=== PATIENT | female | born 1935 | race Caucasian/White ===

== ENCOUNTER 2019-07-11 13:47 | Emergency (ER) | payer OTHER ==
[2019-07-11 14:59] LABS: Absolute Lymphocytes (CBC) 1.6 K/uL (0.7-4.9); Basophils % 0.5 % (0-1.3); Hematocrit 38.7 % (36.0-45.0); MPV 7.9 fL (7.6-11.3); Protime INR 0.99; RBC Red Blood Cell Count 4.03 M/uL (3.86-4.86)
[2019-07-11 15:13] LABS: ALT/SGPT 23 U/L (12-78); AST/SGOT 19 U/L (15-37); Albumin 3.3 g/dL (3.4-5.0); Alkaline Phosphatase 77 U/L (45-117); BUN Blood Urea Nitrogen 13 mg/dL (7-18); Bicarbonate 31 mmol/L (21-32); Bilirubin Direct < 0.1 mg/dL (0-0.2); Bilirubin Total 0.3 mg/dL (0.2-1.0); Glucose Level 141 mg/dL (74-106); Magnesium 1.7 mg/dL (1.8-2.4); NT PRO-BNP 503 pg/mL (<450); Protein, Total 7.3 g/dL (6.4-8.2); Sodium Level 130 mmol/L (136-145); Troponin (Emerg Dept Use Only) < 0.02 ng/mL (0.0-0.045)
--- NOTE | 2019-07-11 15:28 | RAD REPORT ---
EXAM DESCRIPTION: RAD - Chest Single View - 07/11/2019 3:02 pm CLINICAL HISTORY: Arm numbness and tingling, left arm pain, left shoulder pain COMPARISON: January 2019 TECHNIQUE: AP portable chest image was obtained 1444 hours . FINDINGS: Lung volumes are relatively low. No peripheral mass or consolidation. The lung parenchymal pattern is not significantly different from comparison. Heart and vasculature are normal. No measura ble pleural effusion and no pneumothorax. No acute bony abnormality seen. No acute aortic findings dubois spected. IMPRESSION: No acute cardiopulmonary process. No significant change from comparison.
--- NOTE | 2019-07-11 15:32 | EKG ---
Test Date: 2019-07-11 Test Time: 14:26:35 Muffler Tender: EDWARD MEASUREMENT RESULTS: Intervals: Rate: 81 PA: 158 QRSD: 112 QT: 368 QTc: 427 [place]: P: 78 PA: 158 QRS: -49 T: 90 INTERPRETIVE STATEMENTS: Normal sinus rhythm Left anterior fascicular block Abnormal ECG Compared to ECG 10/09/2004 17:42:00 Left anterior fascicular block now present Electronically Signed On 07-11-19 15:31:34 MOLD CLOSER by Haris Escobedo
--- NOTE | 2019-07-11 15:37 | EDPHYS ---
Physician Documentation [facility] Name: Nai Ragland Age: 83 yrs Sex: Female : 1935 Arrival Date: 07/11/2019 Time: 13:51 Bed 20 Private MD: ED Physician Rolando Rivera HPI: 07/11 14:42 This 83 yrs old Female presents to ER via Ambulatory with complaints of la1 Numbness Of Arm. 14:42 The patient or guardian complains of numbness and tingling to left arm that began a few la1 days ago, pain is worse at night and first thing in the morning. Pain is not reproducible. . The complaints affect the left arm. Onset: The symptoms/episode began/occurred 3 day(s) ago. Treatment prior to arrival includes: no previous treatment. Modifying factors: The symptoms are alleviated by nothing. the symptoms are aggravated by nothing. Associated signs and symptoms: Pertinent negatives: decreased range of motion, fever, swelling, vomiting. Severity of symptoms: At their worst the symptoms were moderate. The patient has not experienced similar symptoms in the past. Historical: - Allergies: 14:02 No Known Allergies; iw - Home Meds: 14:02 hydrochlorothiazide 25 mg Oral tab once daily [Active]; valsartan 320 mg oral tab 1 tab iw once daily [Active]; diltiazem HCl 240 mg Oral CDER 1 cap once daily [Active]; - PMHx: 14:02 Hypertension; Asthma; iw - PSHx: 14:02 Knee surgery; iw - Immunization history:: Adult Immunizations. - Social history:: Smoking status: Patient/guardian denies using tobacco. - Ebola Screening: : Patient negative for fever greater than or equal to 101.5 degrees Fahrenheit, and additional compatible Ebola Virus Disease symptoms Patient denies exposure to infectious person Patient denies travel to an Ebola-affected area in the 21 days before illness onset No symptoms or risks identified at this time. ROS: 14:46 Constitutional: Negative for fever, chills, and weight loss, Eyes: Negative for injury, la1 pain, redness, and discharge, ENT: Negative for injury, pain, and discharge, Neck: Negative for injury, pain, and swelling, Cardiovascular: Negative for chest pain, palpitations, and edema, Respiratory: Negative for shortness of breath, cough, wheezing, and pleuritic chest pain, Abdomen/GI: Negative for abdominal pain, nausea, vomiting, diarrhea, and constipation, Back: Negative for injury and pain, MS/Extremity: + for paresthesia of the left arm Skin: Negative for injury, rash, and discoloration, Neuro: Negative for headache, weakness, numbness, tingling, and seizure. Exam: 14:49 Constitutional: This is a well developed, well nourished patient who is awake, alert, la1 and in no acute distress. Head/Face: Normocephalic, atraumatic. Eyes: Pupils equal round and reactive to light, extra-ocular motions intact. Lids and lashes normal. Conjunctiva and sclera are non-icteric and not injected. Cornea within normal limits. Periorbital areas with no swelling, redness, or edema. ENT: Mucous membranes moist. Neck: No Meningismus. Chest/axilla: Normal chest wall appearance and motion. Nontender with no deformity. No lesions are appreciated. Cardiovascular: Regular rate and rhythm with a normal S1 and S2. No gallops, murmurs, or rubs. Normal PMI, no JVD. No pulse deficits. Respiratory: Lungs have equal breath sounds bilaterally, clear to auscultation No rales, rhonchi or wheezes noted. No increased work of breathing, no retractions or nasal flaring. Abdomen/GI: Soft, non-tender, with normal bowel sounds. No distension or tympany. No guarding or rebound. No evidence of tenderness throughout. 15:17 ECG was reviewed by the Attending Physician. la1 15:26 Neuro: Orientation: is normal, Mentation: is normal, Memory: is normal, Cranial nerves: la1 grossly normal, Cerebellar function: is grossly normal, Motor: is normal, Sensation: numbness, that is mild, of the left arm. Vital Signs: 14:02 BP 178 / 67; Pulse 87; Resp 16; Temp 98.0; Pulse Ox 98% on R/A; Weight 70.31 kg; Height iw 4 ft. 8 in. (142.24 cm); 15:00 BP 186 / 67; Pulse 57; Resp 18; Pulse Ox 99% on R/A; Pain 0/10; em 14:02 Body Mass Index 34.75 (70.31 kg, 142.24 cm) iw MDM: 14:17 Patient medically screened. la1 15:27 Data reviewed: vital signs, nurses notes, lab test result(s), EKG, radiologic studies, la1 plain films, I have discussed the patient's presentation/case with the attending Emergency Department Physician; and as a result, I will discharge patient. Data interpreted: Pulse oximetry: on room air is 99 %. Interpretation: normal. Test interpretation: by ED physician or midlevel provider: ECG, plain radiologic studies. Counseling: I had a detailed discussion with the patient and/or guardian regarding: the historical points, exam findings, and any diagnostic results supporting the discharge/admit diagnosis, the presence of at least one elevated blood pressure reading (>120/80) during this emergency department visit, lab results, radiology results, the need for outpatient follow up, a vascular surgeon, a family practitioner. 15:34 ED course: pts pain/numbness in the left arm for the last 3 days, denies chest la1 pain/SOB. Instructed to return to ED with new or worsening symptoms. 07/11 14:31 Order name: Basic Metabolic Panel; Complete Time: 15:34 07/11 14:31 Order name: CBC with Diff; Complete Time: 15:34 la07/11 14:31 Order name: LFT's; Complete Time: 15:34 07/11 14:31 Order name: Magnesium; Complete Time: 15:34 07/11 14:31 Order name: NT PRO-BNP; Complete Time: 15:34 07/11 14:31 Order name: PT-INR; Complete Time: 15:34 07/11 14:31 Order name: Troponin (emerg Dept Use Only); Complete Time: 15:34 la07/11 14:31 Order name: XRAY Chest (1 view); Complete Time: 15:34 la07/11 14:31 Order name: EKG; Complete Time: 14:33 la07/11 14:31 Order name: Cardiac monitoring; Complete Time: 14:33 07/11 14:31 Order name: EKG - Nurse/Tech; Complete Time: 15:16 07/11 14:31 Order name: IV Saline Lock; Complete Time: 15:26 07/11 14:31 Order name: Labs collected and sent; Complete Time: 14:33 la1 12 14:31 Order name: O2 Per Protocol; Complete Time: 14:33 la1 12 14:31 Order name: O2 Sat Monitoring; Complete Time: 14:33 la1 EC:17 Rate is 81 beats/min. Rhythm is regular. Left axis deviation noted. IN interval is la1 normal. QT interval is normal. No Q waves. T waves are Normal. No ST changes noted. Clinical impression: NO STEMI. Administered Medications: 15:48 Drug: Potassium Effervescent Tablet 50 mEq Route: PO; em 15:54 Follow up: Response: No adverse reaction em Disposition: 16:49 Co-signature as Attending Physician, Rolando Rivera MD I agree with the assessment and kdr plan of care. Disposition: 07/11/19 15:36 Discharged to Home. Impression: Paresthesia of skin. - Condition is Stable. - Discharge Instructions: Potassium Content of Foods, Paresthesia. - Medication Reconciliation Form, Thank You Letter form. - Follow up: Emergency Department; When: As needed; Reason: Worsening of condition. Follow up: Private Physician; When: 2 - 3 days; Reason: Recheck today's complaints, Re-evaluation by your physician. - Problem is new. - Symptoms are unchanged. Signatures: Dispatcher [employer] Rolando Shell MD MD [facility] Tarik Aceveod, SUPPORT SERVICES TECH SUPPORT SERVICES TECH em Cass Vasquez, REAGAN RN iw Smith Hamilton, CONTAINER WASHER-C CONTAINER WASHER-Cla1 Corrections: (The following items were deleted from the chart) 15:27 14:42 The complaints affect the left bicep, dorsal aspect of left forearm, left tricep la1 and palmar aspect of left forearm, la1 15:55 15:36 07/11/2019 15:36 Discharged to Home. Impression: Paresthesia of skin. Condition em is Stable. Forms are Medication Reconciliation Form, Thank You Letter, Antibiotic Education, Prescription Opioid Use. Follow up: Emergency Department; When: As needed; Reason: Worsening of condition. Follow up: Private Physician; When: 2 - 3 days; Reason: Recheck today's complaints, Re-evaluation by your physician. Problem is new. Symptoms are unchanged. la1
--- NOTE | 2019-07-11 15:37 | ER ---
Nurse's Notes [facility] Name: Nai Ragland Age: 83 yrs Sex: Female : 1935 Arrival Date: 07/11/2019 Time: 13:51 Bed 20 Private MD: Diagnosis: Paresthesia of skin Presentation: 07/11 13:58 Presenting complaint: Patient states: numbness, tingling to left arm started 4-5 days iw ago, starts at back of shoulder radiates to left fingers, got worse last night, denies weakness. Transition of care: patient was not received from another setting of care. Onset of symptoms was July 07, 2019. Risk Assessment: Do you want to hurt yourself or someone else? Patient reports no desire to harm self or others. Initial Sepsis Screen: Does the patient meet any 2 criteria? No. Patient's initial sepsis screen is negative. Does the patient have a suspected source of infection? No. Patient's initial sepsis screen is negative. Care prior to arrival: None. 13:58 Method Of Arrival: Ambulatory iw 13:58 Acuity: JT 3 iw Historical: - Allergies: 14:02 No Known Allergies; iw - Home Meds: 14:02 hydrochlorothiazide 25 mg Oral tab once daily [Active]; valsartan 320 mg oral tab 1 tab iw once daily [Active]; diltiazem HCl 240 mg Oral CDER 1 cap once daily [Active]; - PMHx: 14:02 Hypertension; Asthma; iw - PSHx: 14:02 Knee surgery; iw - Immunization history:: Adult Immunizations. - Social history:: Smoking status: Patient/guardian denies using tobacco. - Ebola Screening: : Patient negative for fever greater than or equal to 101.5 degrees Fahrenheit, and additional compatible Ebola Virus Disease symptoms Patient denies exposure to infectious person Patient denies travel to an Ebola-affected area in the 21 days before illness onset No symptoms or risks identified at this time. Screenin:28 Abuse screen: Denies threats or abuse. Nutritional screening: No deficits noted. em Tuberculosis screening: No symptoms or risk factors identified. Fall Risk None identified. Assessment: 14:30 General: Appears in no apparent distress. comfortable, Behavior is calm, cooperative, em Denies fever. Pain: Denies pain. Neuro: Level of Consciousness is awake, alert, obeys commands, Oriented to person, place, time, situation, Appropriate for age Production Grip are equal bilaterally Moves all extremities. Gait is steady, Speech is normal, Facial symmetry appears normal, Pupils are PERRLA, paresthesias in palmar aspect of left forearm and left tricep and dorsal aspect of left forearm and left bicep Reports Denies weakness dizziness, difficulty swallowing. Cardiovascular: Capillary refill < 3 seconds Patient's skin is warm and dry. Respiratory: Airway is patent Respiratory effort is even, unlabored, Respiratory pattern is regular, symmetrical. GI: Patient currently denies nausea, vomiting. Derm: Skin is intact, is healthy with good turgor, Skin is pink, warm \T\ dry. Musculoskeletal: Capillary refill < 3 seconds, Range of motion: intact in all extremities. 14:35 Reassessment: I agree with the assessment made by YESICA Montanez. sg 15:40 Reassessment: Patient appears in no apparent distress at this time. No changes from em previously documented assessment. Patient and/or family updated on plan of care and expected duration. Pain level reassessed. Patient is alert, oriented x 3, equal unlabored respirations, skin warm/dry/pink. Vital Signs: 14:02 BP 178 / 67; Pulse 87; Resp 16; Temp 98.0; Pulse Ox 98% on R/A; Weight 70.31 kg; Height iw 4 ft. 8 in. (142.24 cm); 15:00 BP 186 / 67; Pulse 57; Resp 18; Pulse Ox 99% on R/A; Pain 0/10; em 14:02 Body Mass Index 34.75 (70.31 kg, 142.24 cm) iw ED Course: 13:51 Patient arrived in ED. mr 13:59 Triage completed. iw 14:02 Arm band placed on. iw 14:07 Tarik Acevedo LVN is Primary Nurse. em 14:17 Smith Hamilton [facility]-C [facility] la1 14:17 Rolando Rivera MD is Attending Physician. la1 14:28 Patient has correct armband on for positive identification. Bed in low position. Call em light in reach. Side rails up X2. Adult w/ patient. 14:34 EKG done, by tree and shrub technician. reviewed by Smith SORTO. at1 14:40 Initial lab(s) drawn, by me, sent to lab. Inserted saline lock: 22 gauge in right em antecubital area, using aseptic technique. Blood collected. 15:05 XRAY Chest (1 view) In Process Unspecified. EDMS Administered Medications: 15:48 Drug: Potassium Effervescent Tablet 50 mEq Route: PO; em 15:54 Follow up: Response: No adverse reaction em Outcome: 15:36 Discharge ordered by MD. bond 15:55 Patient left the ED. em Signatures: Dispatcher [employer] EDMS Patel Espinoza, RN RN Monserrat Cole mr Curtis, Tarik, MULTIFOCAL LENS INSPECTOR MULTIFOCAL LENS INSPECTOR em Cass Vasquez, RN RN iw Alissa Hernandez, quantitative analyst marketing EKG Tat1 Smith Hamilton, DEHAIRING MACHINE TENDER-C DEHAIRING MACHINE TENDER-Cla1
[2019-07-11] MEDS ORDERED: POTASSIUM 25 MEQ EFFERV TAB ONE (15:38)
[2019-07-11 18:07] VITALS: TEMP 98
[2019-07-11 18:09] VITALS: BP 186/67; O2SAT 99
== END 2019-07-11 15:55 | disposition home or self-care (01) ==
LOC: ER 13:47
DX: R20.2 Paresthesia of skin (principal); I10 Essential (primary) hypertension; J45.909 Unspecified asthma, uncomplicated
CPT/HCPCS: 36415; 71045; 80048; 80076; 83735; 83880; 84484; 85025; 85610; 93005; 99284

== ENCOUNTER 2019-09-25 12:37 | Inpatient (IN) | payer OTHER ==
--- NOTE | 2019-09-25 16:42 | R.PREADM ---
SCREENING DATE AND TIME 09/25/2019 13:38 (ADULT LITERACY TEACHER) ANTICIPATED REHAB ADMISSION DATE 09/27/2019 REFERRING FACILITY [facility] REFERRAL DATE AND TIME 09/25/2019 13:38 (ADULT LITERACY TEACHER) ACUTE ADMIT DATE 09/15/2019 Previous Rehabilitation(s): No. REFERRING PHYSICIAN JOSE LUIS PHILLIPS REHAB FACILITY [facility] CLINICAL LIAISON Isa Contreras PHYSICIAN REVIEWER Dr. Elvis Munoz M.D. MR# [id number] [facility]# [id number] NAME NAI RAGLAND ADDRESS [address] [facility] PHONE [facility] [id number] DATE OF 1935 AGE 84 SSN# [id number] GENDER female MARITAL STATUS RACE white ADMIT FROM 02 - [facility] PRE-HOSPITAL LIVING SETTING 01 - Home (private home/apt. board/care, assisted living, halfway, transitional living) HOME TYPE AND DETAILS Type of home: single family house # of steps within the residence: 0 # of levels in the residence: 1 # of steps to enter the residence: 0 PRE-HOSPITAL LIVING WITH Alone FAMILY SUPPORT Yes PRIMARY FAMILY CONTACT NAME LORI ANDREWS PRIMARY FAMILY CONTACT PHONE PHONE PRIMARY FAMILY CONTACT ON ADM.? no IS PRIMARY FAMILY CONTACT AUTH. REP.? no 1ST EMERGENCY CONTACT LORI ANDREWS 1ST CONTACT PHONE PHONE 1ST CONTACT ON ADM. no IS 1ST CONTACT AUTH. REP.? no PHONE 2ND CONTACT ON ADM.? no PATIENT EMPLOYMENT STATUS Retired (for age) PATIENT EMPLOYER No Employer PAYOR INFORMATION: 1ST PAYOR NAME Mariama 1ST PAYOR PHONE [phone] 1ST PAYOR POLICY ID [id number] INJURY/ILLNESS DUE TO ACCIDENT? No ANOTHER [employer] RESPONSIBLE? No PRIMARY REHAB/ACUTE DIAGNOSIS: Acute Ischemic Right MCA Stroke ONSET DATE 09/15/2019 REHAB IMPAIRMENT CATEGORY (DMITRY): 01 Stroke (STR) MEETS 60% rule AFFECTED EXTREMITIES: LLE, and LUE PRIMARY DIAGNOSIS-RELATED SURGERIES: No surgeries related to the primary diagnosis were performed. COMORBID REHAB/ACUTE DIAGNOSES: - N/A HTN SUMMARY OF ACUTE HOSPITALIZATION: Pt. is a 84 yo Right-handed white female. On 09/15/2019 Pt. presented to [facility] with sudden onset of left-side weakness. On 09/15/2019 she was admitted to [facility] with diagnosis Acute Ischemic Right MCA Stroke. Her impairment category is Stroke 01 - Left Body (Right Brain) (01.1). Pre-morbidly, Pt. was independent/mod-I in Locomotion, Safety Awareness, Balance, Social Cognition, T ransfers Control, Sphincter Control, Self-Care, Communication, and Endurance; and she had good Locomo tion, Balance, Safety Awareness, Social Cognition, Transfers Control, Sphincter Control, Self-Care, C ommunication, and Endurance. Currently, she has deficits of Locomotion, Safety Awareness, Balance, Transfers Control, Self-Care, C ommunication, and Endurance. Pt. is now referred to [facility] for acute in-patient rehabilitation in order to maximize patient's functional independence in activities of daily living, strength, ROM, and mobi lity. Patient has realistic goal of being discharged at assistance level 6-Hunter to reside at Home with Fam fernando/Relatives. Nai Ragland is an 84 year old female that lives alone in a single miguel angel house. She was independent with ADLs and IADLs and ambulatory without assistive device. On 09/15/2019, patient was found down by family with left sided weakness and right gaze deviation and was admitted to [facility] and treated. She is now medically stable but in need of 24-hour nursing, doctor supervision and oversite while receiving participate in 3hours of therapy a day/15 hours per week and receive care with an intensive interdisciplinary approach. PAST MEDICAL HISTORY HTN PAST SURGICAL HISTORY: N/A MEDICATION ALLERGIES: No Known Drug Allergies (NKDA) ENVIRONMENTAL ALLERGIES: None Known - Substance Allergies None Known - Other Allergies None Known CODE STATUS: Full code WEIGHT/HEIGHT/BMI: WEIGHT 151.4 lbs HEIGHT 4' 8" BMI 33.8 DIET: - Diet Type Regular - Diet - Solid Texture Mechanical Soft - Diet - Liquid Texture Thin - Tube Feed N/A REVIEW OF SYSTEMS: - Gen Alert and awake Lying in bed No apparent distress Oriented to: person, time, and place - Vital Signs Temperature: 98.6 F SBP/DBP: 151/70 Pulse: 77 Resp: 20 Vital signs stable, afebrile - CVS RRR VITAL SIGNS Temperature: 98.6 F SBP/DBP: 151/70 Pulse: 77 Resp: 20 Vital signs stable, afebrile MEDICATIONS/TREATMENT: Other- See attached MAR (Medication Administration Record). See attached MAR (Medication Administration Record) Nai Ragland.pdf. CURRENT SPHINCTER CONTROL: Pre-hospital bladder status: continent # of bladder accidents in the last 7 days prior to screenin Pre-hospital bowel status: continent # of bowel accidents in the last 7 days prior to screenin Last Bowel Movement Date: CURRENT LOCOMOTION STATUS: distance walked 0 feet DETAILED CURRENT FUNCTIONAL STATUS: - Bladder accident frequency: Ind - No accidents in the past 7 days - Bowel accident frequency: Ind - No accidents in the past 7 days - Walking score based on distance walked: 0(N/A) - Wheelchair score based on distance traveled: 0(N/A) QI SCORES: - Self-Care A. Eating 04-Supervision or touching assistance B. Oral hygiene 04-Supervision or touching assistance C. Toileting hygiene 02-Substantial/maximal assistance E. Shower/bathe self 02-Substantial/maximal assistance F. Upper body dressing 02-Substantial/maximal assistance G. Lower body dressing 01-Dependent H. Putting on/taking off footwear 01-Dependent - Mobility A. Roll left and right 02-Substantial/maximal assistance B. Sit to lying 02-Substantial/maximal assistance C. Lying to sitting on side of bed 02-Substantial/maximal assistance D. Sit to stand 02-Substantial/maximal assistance E. Chair/tit-st-tfzxe transfer 02-Substantial/maximal assistance F. Toilet transfer 02-Substantial/maximal assistance G. Car transfer 10-Not attempted due to environmental limitations I. Walk 10 feet 88-Not attempted due to medical condition or safety concerns J. Walk 50 feet with two turns 88-Not attempted due to medical condition or safety concerns K. Walk 150 feet 88-Not attempted due to medical condition or safety concerns L. Walking 10 feet on uneven surfaces 88-Not attempted due to medical condition or safety concerns M. 1 step (curb) 88-Not attempted due to medical condition or safety concerns N. 4 steps 88-Not attempted due to medical condition or safety concerns O. 12 steps 88-Not attempted due to medical condition or safety concerns P. Picking up object 88-Not attempted due to medical condition or safety concerns R. Wheel 50 feet with two turns 88-Not attempted due to medical condition or safety concerns S. Wheel 150 feet 88-Not attempted due to medical condition or safety concerns - Bladder and Bowel Bladder continence 0-Always continent Bowel continence 0-Always continent - Endurance Poor - Balance Poor - Safety Awareness Poor CURRENT FUNC. DEFICITS: Self-Care, Mobility, Endurance, Balance, and Safety Awareness CURRENT / PREVIOUS ASSISTIVE DEVICES: 3-in-1 Commode BSC Glasses Hearing Aid(s) Hospital Bed Rolling Walker Shower Chair Tub Bench Wheelchair CURRENT USE ASSISTIVE DEVICES: SCDs HISTORY OF FALLS. HAS THE PATIENT HAD TWO OR MORE FALLS IN THE PAST YEAR OR ANY FALL WITH INJURY IN T HE PAST YEAR?: No PRIOR SURGERY. DID THE PATIENT HAVE MAJOR SURGERY DURING THE 100 DAYS PRIOR TO ADMISSION?: No THERAPY NOTES FROM ACUTE CARE: Attached. SPECIAL NEEDS: - Safety Concerns Skin breakdown precautions needed due to skin breakdown risk PRECAUTIONS: - Weight Bearing Precaution WBAT left LE PATIENT NEEDS ACTIVE AND ONGOING THERAPEUTIC INTERVENTION OF MULTIPLE THERAPY DISCIPLINES, INCLUDING: - Occupational Therapy Cognitive Retraining. Visual Perceptual Training. - Dietary and Nutrition Adequate Nutrition. Nutritional Education. Nutritional Supplements. - Speech Therapy Cognitive Training. Dysphagia Therapy. Expressive Language Skills. Memory Strategies. Receptive Langu age Skills. Speech Intelligibility Training. PATIENT NEEDS CLOSE MEDICAL SUPERVISION BY A REHABILITATION PHYSICIAN FOR: Coordination of Treatment Team Medical and Co-Morbidity Management PATIENT REQUIRES 24X7 REHAB NURSING FOR MEDICAL AND FUNCTIONAL MGT. OF THE FOLLOWING DEFICITS: Disease Management Medication Management Patient/Family Education Providing Safe Environment PATIENT REQUIRES INTENSIVE, COORDINATED INTERDISCIPLINARY APPROACH TO REHAB: Arranging Home Equipment/Services Discharge Planning Family Intervention/Training Surgical Assist/Case Management PATIENT REHAB POTENTIAL: Sedrick RAGLAND is able and expected to receive 3 hours of individualized therapy daily on at least 5 of e very 7 days Sedrick RAGLAND's prognosis for significant practical improvement within a reasonable period of time appea rs Good Expected level of measurable improvement will be of a practical value to Sedrick RAGLAND's functional capa city or adaptations to impairments Has a viable Discharge Plan Medically appropriate; condition is sufficiently stable to participate in intensive rehab program DISCHARGE PLAN: - Estimated Length of Stay (days) 17. - Consensus on plan Discharge plan has been discussed with primary caregiver. Patient/Family is in agreement with the jaswinder n. Primary caregiver is in agreement with the plan. - Patient/Family Goals Return home with assistance. - Planned Living Setting Upon Discharge Home, to live with Family/Relatives. Transitional Living. RECOMMENDED CARE LEVEL: IRF RECOMMENDATION DETAILS: Recommended Admission to Comprehensive Rehabilitation Program to Increase Functional [place] SCREENER'S COMPLETENESS CONFIRMATION: - Screening Confirmation The patient data collection on this preadmission screening form is finished PHYSICIANS REVIEW AND ADMISSION DETERMINATION Admit - Based on my review of the Pre-Admission Screening results, in my medical judgment and experie nce, I concur with the findings and recommend admission to [facility], as this patient requires an IRF level of care. SIGNATURE PANEL: Clinical Liaison - [electronically] signed by Isa Contreras on 09/25/2019 at 16:09 (ADULT LITERACY TEACHER) Physician Reviewer - [electronically] signed by Dr. Elvis Munoz M.D. on 09/25/2019 at 16:41 (ADULT LITERACY TEACHER )
--- OUTSIDE RECORDS SUMMARY | 2019-09-26 20:23 | XMS REPORT ---
:1935 [facility] Address [address] [place] [address] Dr. Schultz [address] [place] [id number] Care Team Providers Name Role Phone Unavailable Unavailable Unavailable Problems This patient has no known problems. Allergies, Adverse Reactions, Alerts This patient has no known allergies or adverse reactions. Medications This patient has no known medications. Encounters Start End Encounter Admission Attending Care Care Encounter Date/Time Date/Time Type Type Clinicians Facility Department ID 2019-09-15 2019-09-[address] [facility] [id number] 13:19:00 13:19:00 2019-09-15 2019-09-15 Inpatient [facility] [id number] 13:54:00 11:12:00
--- OUTSIDE RECORDS SUMMARY | 2019-09-26 20:23 | XMS REPORT ---
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
--- OUTSIDE RECORDS SUMMARY | 2019-09-26 20:23 | XMS REPORT ---
:1935 Author Organization [employer] Care Team Providers Name Role Phone Mumtaz Trivedi Provider Role Unavailable Allergies, Adverse Reactions, Alerts Substance Reaction Event Type N.K.D.A. 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 Assessment Cervical radiculopathy M54.12 Active Medications Medication Code System Code Instructions Start Date End Date Status Dosage Advair Diskus [facility] 85809-846 Active not defined 7 Diazepam [facility] 45190-134 Active not defined 0-01 potassium [facility] 0 Active not defined Diltiazem HCl [facility] 49563-883 Active not defined 0-01 Valsartan [facility] 97141-520 Active not defined Results No Known Results Summary Purpose [employer]ClinicalWorks Submission
[2019-09-26] MEDS ORDERED: DUONEB NEB PRN (21:56)
[2019-09-26] MEDS: LABETALOL HCL 100 MG TAB PO SCH (22:00)
[2019-09-26] MEDS: MELATONIN 3 MG TABLET PO SCH (23:44)
[2019-09-26] MEDS: ATORVASTATIN 80 MG TAB PO SCH (23:45)
[2019-09-27] MEDS: LABETALOL HCL 100 MG TAB PO SCH ×3 (05:29→20:16)
[2019-09-27 06:24] LABS: Absolute Lymphocytes (CBC) 1.3 K/uL (0.7-4.9); Basophils % 0.2 % (0-1.3); Hematocrit 33.3 % (36.0-45.0); Lymphocytes % 23.6 % (15.3-44.8); MPV 8.7 fL (7.6-11.3); RBC Red Blood Cell Count 3.39 M/uL (3.86-4.86)
[2019-09-27 06:36] LABS: Albumin 2.2 g/dL (3.4-5.0); Magnesium 1.9 mg/dL (1.8-2.4); Potassium 4.3 mmol/L (3.5-5.1); Prealbumin 9.6 mg/dL (20-40)
[2019-09-27] MEDS: BUDESONIDE FORMOTEROL IH SCH ×2 (08:00→20:00)
[2019-09-27] MEDS: DULERA 100/5 (MOMETASONE/FORMOTEROL) INHALER IH SCH ×2 (08:00→20:17)
[2019-09-27] MEDS: HYDROCODONE/APAP 5/325 MG TAB PO PRN ×2 (08:07→14:47)
[2019-09-27] MEDS: ASPIRIN EC 81 MG TAB PO SCH (08:09)
[2019-09-27] MEDS: POTASSIUM CL SA 10 MEQ TAB PO SCH ×2 (08:09→20:16)
[2019-09-27] MEDS: VALSARTAN 160 MG TAB PO SCH (08:09)
[2019-09-27] MEDS: CLOPIDOGREL 75 MG TABLET PO SCH (08:09)
--- NOTE | 2019-09-27 12:34 | PAPE ---
PATIENT: [facility] MR# [id number] REFERRING DOCTOR JOSE LUIS PHILLIPS EVALUATION DATE AND TIME 09/27/2019 11:32 (RADIO PERFORMER) NAME JOSE DE LOS SANTOS DATE OF 1935 AGE 84 PHONE SSN# [id number] GENDER female EVALUATING PHYSICIAN Dr. Wyatt Saavedra ADMISSION DIAGNOSIS: Acute Ischemic Right MCA Stroke ONSET DATE 09/15/2019 SECONDARY/COMORBID DIAGNOSES TIERED: - N/A HTN POST-ADMISSION FUNCTIONAL/MEDICAL STATUS: - Bladder Same accident frequency: Ind - No accidents in the past 7 days - Bowel Same accident frequency: Ind - No accidents in the past 7 days - Walking Same score based on distance walked: 0(N/A) - Wheelchair Same score based on distance traveled: 0(N/A) STATUS CHANGE EVALUATION: No change in Functional or Medical Status is identified compared with Pre-Admission screening. PRE-ADMISSION FUNCTIONAL/MEDICAL STATUS: - Bladder accident frequency: 7-Ind - No accidents in the past 7 days - Bowel accident frequency: 7-Ind - No accidents in the past 7 days - Walking score based on distance walked: 0(N/A) - Wheelchair score based on distance traveled: 0(N/A) PATIENT NEEDS CLOSE MEDICAL SUPERVISION BY A REHABILITATION PHYSICIAN FOR: Coordination of Treatment Team Medical and Co-Morbidity Management PATIENT REQUIRES 24X7 REHAB NURSING FOR MEDICAL AND FUNCTIONAL MGT. OF THE FOLLOWING DEFICITS: Disease Management Medication Management Patient/Family Education Providing Safe Environment PATIENT REQUIRES INTENSIVE, COORDINATED INTERDISCIPLINARY APPROACH TO REHAB: Arranging Home Equipment/Services Discharge Planning Family Intervention/Training Balance Wheel Facer/Case Management LIST OF IDENTIFIED AND POTENTIAL PROBLEMS: Alteration in leisure activities Bladder, Incontinence Bowel, Incontinence Infection, Actual or Potential Mobility Impaired Pain, Alteration in Comfort Self Care Deficit Skin Integrity, Actual or Potential Urinary Tract Infection (UTI), Actual or Potential PATIENT COULD BE AT RISK FOR COMPLICATIONS FROM ADVERSE MEDICAL CONDITIONS DUE TO HIS/HER COMORBIDITI ES AND THE RIGORS OF THE INTENSIVE REHABILLITATION PROGRAM. METHODS OR INTERVENTIONS TO AVOID COMPLIC ATIONS INCLUDE: - Bleeding Stroke patients assessed for lethargy or change in status. - Infection Clinical staff to assess and manage the signs and symptoms of infection including fever, redness, war mth, etc. - Urinary Tract Infection - Aspiration Clinical staff will assess and manage coughing, drooling, congestion. - Falls Patient will be evaluated for Fall Precautions and will be placed on Fall Precautions as indicated pe r protocol. - Skin Breakdown Nursing will assess skin daily using assessment tool and will place on Skin Breakdown Precautions as indicated per protocol. - Pain Clinical staff may employ non-medication methods such as massage, distraction, decrease stimulus, etc . as needed. Clinical staff will assess patient's pain level every shift per protocol to assess and e nsure pain management effectiveness. Medications will be given and the pain level re-assessed. PRELIMINARY PLAN OF CARE: - Physical Therapy Patient needs Physical Therapy for a daily minimum of 1.5 hours at least 5 out of 7 days, to improve: Mobility, Strengthening, Transfers, Stretching, ROM, Endurance, Ability to manage stairs, Gait, and Balance. - Speech Therapy Patient needs Speech Therapy for a daily minimum of 1 hours at least 5 out of 7 days, to improve: Swa llowing, Cognition, Language Skills, and Compensatory Strategies. - Rehabilitation Nursing Patient requires 24x7 Rehabilitation Nursing for: Pain Issues, Identifying and preventing risk factor s, Monitoring and reporting current medical conditions, Assisting with ambulation and transfer, Nadya ting with all ADL-s, Teaching patients about disease process and medications, Family teaching, Provid ing safe environment, Bowel and Bladder Issues, Skin Integrity, and Medication Management. Patient needs Balance Wheel Facer and/or Case Management for: Discharge Planning, Arranging Home Equipmen t or Services, and Family Interventions. - Dietary and Nutrition Services Patient needs Dietary and Nutrition Services for: Adequate Nutrition, Nutritional Supplements, and Nu tritional Education. - Occupational Therapy Patient needs Occupational Therapy for a daily minimum of 1.5 hours at least 5 out of 7 days, to impr ove Activities of Daily Living, including: Eating, Grooming, Bathing, Dressing, Toileting, Toilet Tra nsfers, Community Reintegration, Higher functional activities, Adaptive Equipment, Splinting, Househo ld Tasks, and Other activities as determined. QI SCORES: - Self-Care A. Eating 04-Supervision or touching assistance B. Oral hygiene 04-Supervision or touching assistance C. Toileting hygiene 02-Substantial/maximal assistance E. Shower/bathe self 02-Substantial/maximal assistance F. Upper body dressing 02-Substantial/maximal assistance G. Lower body dressing 01-Dependent H. Putting on/taking off footwear 01-Dependent - Mobility A. Roll left and right 02-Substantial/maximal assistance B. Sit to lying 02-Substantial/maximal assistance C. Lying to sitting on side of bed 02-Substantial/maximal assistance D. Sit to stand 02-Substantial/maximal assistance E. Chair/tmb-ex-tyjuw transfer 02-Substantial/maximal assistance F. Toilet transfer 02-Substantial/maximal assistance G. Car transfer 10-Not attempted due to environmental limitations I. Walk 10 feet 88-Not attempted due to medical condition or safety concerns J. Walk 50 feet with two turns 88-Not attempted due to medical condition or safety concerns K. Walk 150 feet 88-Not attempted due to medical condition or safety concerns L. Walking 10 feet on uneven surfaces 88-Not attempted due to medical condition or safety concerns M. 1 step (curb) 88-Not attempted due to medical condition or safety concerns N. 4 steps 88-Not attempted due to medical condition or safety concerns O. 12 steps 88-Not attempted due to medical condition or safety concerns P. Picking up object 88-Not attempted due to medical condition or safety concerns R. Wheel 50 feet with two turns 88-Not attempted due to medical condition or safety concerns S. Wheel 150 feet 88-Not attempted due to medical condition or safety concerns - Bladder and Bowel Bladder continence 0-Always continent Bowel continence 0-Always continent - Endurance Poor - Balance Poor - Safety Awareness Poor POTENTIAL FUNCTIONAL GOALS FOR PATIENT TO ACHIEVE BY DISCHARGE: - Safety Precaution Patient will remain free from falls or injury at time of discharge. - Bed Mobility Patient will perform bed mobility at 4-Tiffany level of assistance. - Transfers Patient will complete transfers from bed to chair at 4-Tiffany level of assistance. - Mobility Patient will ambulate 150 ft with 4-Tiffany level of assistance with RW. PATIENT REHAB POTENTIAL JordonMarce DE LOS SANTOS is able and expected to receive 3 hours of individualized therapy daily on at least 5 of e very 7 days Sedrick DE LOS SANTOS's prognosis for significant practical improvement within a reasonable period of time appea rs Good Expected level of measurable improvement will be of a practical value to Sedrick DE LOS SANTOS's functional capa city or adaptations to impairments Has a viable Discharge Plan Medically appropriate; condition is sufficiently stable to participate in intensive rehab program DISCHARGE PLAN: - Estimated Length of Stay (days) 17. - Consensus on plan Discharge plan has been discussed with primary caregiver. Patient/Family is in agreement with the jaswinder n. Primary caregiver is in agreement with the plan. - Patient/Family Goals Return home with assistance. - Planned Living Setting Upon Discharge Home, to live with Family/Relatives. Transitional Living. CONCLUSION ON REHABILITATION NECESSITY: I have evaluated patient's pre-admission functional status and, comparing it to the patient's post-ad mission functional status now, I conclude that the pre-admission assessment was accurate. Patient's c ondition on admission supports the medical necessity of admission to IRF. It is safe to proceed with patient's therapy program. SIGNATURE PANEL: (RADIO PERFORMER)
--- NOTE | 2019-09-27 12:38 | R.HP ---
FACILITY: [facility] ENCOUNTER DATE AND TIME: 09/27/2019 12:34 (CAT SKINNER) MR#: [id number] NAME NAI RAGLAND ADDRESS: [place] [address] CITY: [place]IP [address] PHONE: DATE OF : 1935 AGE: 84 SSN# [id number] GENDER: Female DEXTERITY Right-handed MARITAL STATUS RACE White PRE-HOSPITAL LIVING SETTING 01 - Home (private home/apt. board/care, assisted living, correction, transitional living) PRE-HOSPITAL LIVING WITH Alone ENCOUNTER PHYSICIAN: Dr. Wyatt Saavedra REFERRING DOCTOR: JOSE LUIS PHILLIPS DATE OF ADMISSION: 09/27/2019 12:34 (CAT SKINNER) REFERRING FACILITY [facility] HOME TYPE AND DETAILS: Type of home: single family house # of steps within the residence: 0 # of levels in the residence: 1 # of steps to enter the residence: 0 ADMISSION DIAGNOSIS: Acute Ischemic Right MCA Stroke ONSET DATE: 09/15/2019 PRIMARY DIAGNOSIS-RELATED SURGERIES: No surgeries related to the primary diagnosis were performed. SECONDARY/COMORBID DIAGNOSES (TIERED): - N/A HTN HISTORY OF PRESENT ILLNESS (HPI): Pt. is a 84 yo Right-handed white female. On 09/15/[address] [facility] with sudden onset of left-side weakness. On 09/15/2019 she was admitted to [facility] with diagnosis Acute Ischemic Right MCA Stroke. Her impairment category is Stroke 01 - Left Body (Right Brain) (01.1). Pre-morbidly, Pt. was independent/mod-I in Locomotion, Safety Awareness, Balance, Social Cognition, T ransfers Control, Sphincter Control, Self-Care, Communication, and Endurance; and she had good Locomo tion, Balance, Safety Awareness, Social Cognition, Transfers Control, Sphincter Control, Self-Care, C ommunication, and Endurance. Currently, she has deficits of Locomotion, Safety Awareness, Balance, Transfers Control, Self-Care, C ommunication, and Endurance. Pt. is now referred to [facility] for acute in-patient rehabilitation in order to maximize patient's functional independence in activities of daily living, strength, ROM, and mobi lity. Patient has realistic goal of being discharged at assistance level 6-Hunter to reside at Home with Fam fernando/Relatives. Nai Ragland is an 84 year old female that lives alone in a single [facility] house. She was independent with ADLs and IADLs and ambulatory without assistive device. On 09/15/2019, patient was found down by family with left sided weakness and right gaze deviation and was admitted to [facility] and treated. She is now medically stable but in need of 24-hour nursing, doctor supervision and oversite while receiving participate in 3hours of therapy a day/15 hours per week and receive care with an intensive interdisciplinary approach. MEDICATION ALLERGIES: No Known Drug Allergies (NKDA) ENVIRONMENTAL ALLERGIES: None Known - Substance Allergies None Known - Other Allergies None Known PAST MEDICAL HISTORY: HTN PAST SURGICAL HISTORY: N/A FAMILY HISTORY: Family history is not contributory. SOCIAL HISTORY: - Home Living Alone REVIEW OF SYSTEMS: - Gen No Chills No Fatigue No Fever - Eyes No Double Vision No itchiness - ENMT No Difficulty Swallowing - CVS No Chest Discomfort No Chest Pain No Fatigue No Weight Gain - Resp No Cough No Shortness of Breath - GI Continent No Abdominal Pain No Constipation No Diarrhea - Continent No Kidney Pain No Painful Urination No Urinary Urgency - MSK No Joint Pain No Muscle Cramps No Stiffness - Skin No Itching No Rash No Suspicious Lesions - Neuro No Coordination Difficulty No Difficulty with Concentration No Memory Loss No Seizures No Weakness - Psych No Anxiety No Depression No HIV Exposure No Persistent Infections No Seasonal Allergies - Endo No Cold/Heat Intolerance No Excessive Hunger No Excessive Thirst No Excessive Urination PHYSICAL EXAM - Gen Alert and awake Lying in bed No apparent distress Oriented to: person, time, and place - Vital Signs Temperature: 98.6 F SBP/DBP: 151/70 Pulse: 77 Resp: 20 Vital signs stable, afebrile - CVS RRR VITAL SIGNS Temperature: 98.6 F SBP/DBP: 151/70 Pulse: 77 Resp: 20 Vital signs stable, afebrile NURSING: - Shower allowing shower - Bladder care per protocol - Skin care per protocol PRECAUTIONS: - Weight Bearing Precaution WBAT left LE ACTIVITIES OOB only with supervision QI SCORES: - Self-Care A. Eating 04-Supervision or touching assistance B. Oral hygiene 04-Supervision or touching assistance C. Toileting hygiene 02-Substantial/maximal assistance E. Shower/bathe self 02-Substantial/maximal assistance F. Upper body dressing 02-Substantial/maximal assistance G. Lower body dressing 01-Dependent H. Putting on/taking off footwear 01-Dependent - Mobility A. Roll left and right 02-Substantial/maximal assistance B. Sit to lying 02-Substantial/maximal assistance C. Lying to sitting on side of bed 02-Substantial/maximal assistance D. Sit to stand 02-Substantial/maximal assistance E. Chair/[id number]-[id number] transfer 02-Substantial/maximal assistance F. Toilet transfer 02-Substantial/maximal assistance G. Car transfer 10-Not attempted due to environmental limitations I. Walk 10 feet 88-Not attempted due to medical condition or safety concerns J. Walk 50 feet with two turns 88-Not attempted due to medical condition or safety concerns K. Walk 150 feet 88-Not attempted due to medical condition or safety concerns L. Walking 10 feet on uneven surfaces 88-Not attempted due to medical condition or safety concerns M. 1 step (curb) 88-Not attempted due to medical condition or safety concerns N. 4 steps 88-Not attempted due to medical condition or safety concerns O. 12 steps 88-Not attempted due to medical condition or safety concerns P. Picking up object 88-Not attempted due to medical condition or safety concerns R. Wheel 50 feet with two turns 88-Not attempted due to medical condition or safety concerns S. Wheel 150 feet 88-Not attempted due to medical condition or safety concerns - Bladder and Bowel Bladder continence 0-Always continent Bowel continence 0-Always continent - Endurance Poor - Balance Poor - Safety Awareness Poor CURRENT FUNC. DEFICITS: Self-Care, Mobility, Endurance, Balance, and Safety Awareness MEDICATIONS: - Other See attached MAR (Medication Administration Record) See attached MAR (Medication Administration Record) Nai Ragland.pdf ASSESSMENT: Pt. is a 84 yo Right-handed white female.On 09/15/[address] [facility] with sudden onset of left-side weakness.On 09/15/2019 she was admitted to [facility] with diagnosis Acute I schemic Right MCA Stroke.Her impairment category is Stroke 01 - Left Body (Right Brain) (01.1).Pre-m normaly, Pt. was independent/mod-I in Locomotion, Safety Awareness, Balance, Social Cognition, Transf ers Control, Sphincter Control, Self-Care, Communication, and Endurance; and she had good Locomotion, Balance, Safety Awareness, Social Cognition, Transfers Control, Sphincter Control, Self-Care, Commun ication, and Endurance.Currently, she has deficits of Locomotion, Safety Awareness, Balance, Transfer s Control, Self-Care, Communication, and Endurance.Pt. is now referred to [facility] for acute in-patient rehabilitation in order to maximize patient's functional independence in activities of daily living, strength, ROM, and mobility.- Rehab Goal Patient has realistic goal of being discharged at assistance level 6-Hunter to reside at Home with Fam fernando/Relatives. Nai Ragland is an 84 year old female that lives alone in a single [facility] house. She was independent with ADLs and IADLs and ambulatory without assistive device. On 09/15/2019, patient was found down by family with left sided weakness and right gaze deviation and was admitted to [facility] and treated. She is now medically stable but in need of 24-hour nursing, doctor supervision and oversite while receiving participate in 3hours of therapy a day/15 hours per week and receive care with an intensive interdisciplinary approach.REHAB PLAN: for Dementia, TBI, Stroke, or others - Physical Therapy Gait dysfunction - to improve, our physical therapists will perform initial evaluation of pt's status upon admission and devise an individualized program for Gait Training, and Wheel Chair mobility Inability to transfer - to improve, our physical therapists will perform initial evaluation of pt's s tatus upon admission and devise an individualized program for Bed mobility Need for home safety evaluation - to improve, our physical therapists will perform initial evaluation of pt's status upon admission and devise an individualized program for Home Evaluation Need in caregiver upon discharge - to improve, our physical therapists will perform initial evaluatio n of pt's status upon admission and devise an individualized program for Caregiver Training New precaution - to improve, our physical therapists will perform initial evaluation of pt's status u alix admission and devise an individualized program for Patient precaution education Poor balance - to improve, our physical therapists will perform initial evaluation of pt's status upo n admission and devise an individualized program for Balance Training Poor endurance - to improve, our physical therapists will perform initial evaluation of pt's status u alix admission and devise an individualized program for Endurance Training Weakness - to improve, our physical therapists will perform initial evaluation of pt's status upon ad mission and devise an individualized program for Aquatic Therapy, Neuromuscular Reeducation, and Stre ngthening Achieving independence - to improve, our physical therapists will perform initial evaluation of pt's status upon admission and devise an individualized program for Community Reintegration Activities - Occupational Therapy ADL deficits - to improve, our occupation therapists will perform initial evaluation of pt's status u alix admission and devise an individualized program for Bathing, Bed mobility, Community Reintegration , Cooking, Dressing, Eating, Fine Motor Skills, Grooming, Homemaking, Kitchen Mobility, Laundry, Chhaya ent Education, Safety Awareness, Splinting - Positioning, Transfers(Toilet, Tub, Shower), and Wheel C hair Management Need for medicare sales representative - to improve, our occupation therapists will perform initial evaluation of pt's s tatus upon admission and devise an individualized program for Caregiver Training Weakness - to improve, our occupation therapists will perform initial evaluation of pt's status upon admission and devise an individualized program for Aquatic Therapy, Balance, Endurance, UE ROM, and U E strengthening MEDICAL PLAN: - Diet Type Start Regular - Diet - Liquid Texture Start Thin - Tube Feed Start N/A - Bladder care per protocol - Weight Bearing Precaution WBAT left LE - Skin care per protocol - Other See attached MAR (Medication Administration Record) See attached MAR (Medication Administration Record) Nai Ragland.pdf - Diet - Solid Texture Start Regular Start Mechanical Soft - Shower shower DISCHARGE PLAN: - Estimated Length of Stay (days) 17. - Consensus on plan Discharge plan has been discussed with primary caregiver. Patient/Family is in agreement with the jaswinder n. Primary caregiver is in agreement with the plan. - Patient/Family Goals Return home with assistance. - Planned Living Setting Upon Discharge Home, to live with Family/Relatives. Transitional Living. SIGNATURE PANEL: (CAT SKINNER)
--- NOTE | 2019-09-27 13:37 | FAST ---
ENCOUNTER DATE AND TIME: 09/27/2019 08:00 (PYROMETALLURGICAL ENGINEER) NAME JOSE DE LOS SANTOS DATE OF : 1935 DATE OF ADMISSION: 09/27/2019 12:34 (PYROMETALLURGICAL ENGINEER) PHONE: AGE: 84 N# [id number] GENDER: Female ENCOUNTER PHYSICIAN: Dr. Wyatt Saavedra ADMISSION DIAGNOSIS: - Stroke 01 - Left Body (Right Brain) (01.1) Acute Ischemic Right MCA Stroke. ROLL LEFT AND RIGHT: ROLL LEFT AND RIGHT - STEP 1: Does the patient complete the activity by him/herself with no assistance (physical, verbal/nonverbal cueing, setup/clean-up)? No. ROLL LEFT AND RIGHT - STEP 2: Does the patient need only setup/clean-up assistance from one helper? No. ROLL LEFT AND RIGHT - STEP 3: Does the patient need only verbal/nonverbal cueing or touching/steadying/contact guard assistance fro m one helper? No. ROLL LEFT AND RIGHT - STEP 4: Does the patient need physical assistance - for example lifting or trunk support from one helper - wi th the helper providing less than half of the effort? No. ROLL LEFT AND RIGHT - STEP 5: Does the patient need physical assistance - for example lifting or trunk support from one helper - wi th the helper providing more than half of the effort? No. ROLL LEFT AND RIGHT - STEP 6: Does the helper provide all of the effort? OR Is the assistance of two or more helpers required to co mplete the activity? Yes. 1. [id number] ADMISSION PERFORMANCE: Dependent CODE: [id number] - COMMENTS: Rolling L to R is Total A, R to L side requires Max A SIT TO LYING: SIT TO LYING - STEP 1: Does the patient complete the activity by him/herself with no assistance (physical, verbal/nonverbal cueing, setup/clean-up)? No. SIT TO LYING - STEP 2: Does the patient need only setup/clean-up assistance from one helper? No. SIT TO LYING - STEP 3: Does the patient need only verbal/nonverbal cueing or touching/steadying/contact guard assistance fro m one helper? No. SIT TO LYING - STEP 4: Does the patient need physical assistance - for example lifting or trunk support from one helper - wi th the helper providing less than half of the effort? No. SIT TO LYING - STEP 5: Does the patient need physical assistance - for example lifting or trunk support from one helper - wi th the helper providing more than half of the effort? No. SIT TO LYING - STEP 6: Does the helper provide all of the effort? OR Is the assistance of two or more helpers required to co mplete the activity? Yes. 1. [id number] ADMISSION PERFORMANCE: Dependent CODE: [id number] - COMMENTS: Pt requires assistance with trunk and BLE LYING TO SITTING: LYING TO SITTING ON SIDE OF BED - STEP 1: Does the patient complete the activity by him/herself with no assistance (physical, verbal/nonverbal cueing, setup/clean-up)? No. LYING TO SITTING ON SIDE OF BED - STEP 2: Does the patient need only setup/clean-up assistance from one helper? No. LYING TO SITTING ON SIDE OF BED - STEP 3: Does the patient need only verbal/nonverbal cueing or touching/steadying/contact guard assistance fro m one helper? No. LYING TO SITTING ON SIDE OF BED - STEP 4: Does the patient need physical assistance - for example lifting or trunk support from one helper - wi th the helper providing less than half of the effort? No. LYING TO SITTING ON SIDE OF BED - STEP 5: Does the patient need physical assistance - for example lifting or trunk support from one helper - wi th the helper providing more than half of the effort? No. LYING TO SITTING ON SIDE OF BED - STEP 6: Does the helper provide all of the effort? OR Is the assistance of two or more helpers required to co mplete the activity? Yes. 1. [id number] ADMISSION PERFORMANCE: Dependent CODE: 70C - COMMENTS: Pt requires assistance to trunk and BLE, has poor balance upon sitting up on EOB SIT TO STAND: SIT TO STAND - STEP 1: Does the patient complete the activity by him/herself with no assistance (physical, verbal/nonverbal cueing, setup/clean-up)? No. SIT TO STAND - STEP 2: Does the patient need only setup/clean-up assistance from one helper? No. SIT TO STAND - STEP 3: Does the patient need only verbal/nonverbal cueing or touching/steadying/contact guard assistance fro m one helper? No. SIT TO STAND - STEP 4: Does the patient need physical assistance - for example lifting or trunk support from one helper - wi th the helper providing less than half of the effort? No. SIT TO STAND - STEP 5: Does the patient need physical assistance - for example lifting or trunk support from one helper - wi th the helper providing more than half of the effort? Yes. 1. [id number] ADMISSION PERFORMANCE: Substantial/maximal assistance CODE: [id number] - COMMENTS: Pt requires Max A from sit-stand, pt display ability to hold standing posture, wt bear on BLE upon st anding TRANSFERS: BED, CHAIR: CHAIR/[id number] TRANSFER - STEP 1: Does the patient complete the activity by him/herself with no assistance (physical, verbal/nonverbal cueing, setup/clean-up)? No. CHAIR/[id number] TRANSFER - STEP 2: Does the patient need only setup/clean-up assistance from one helper? No. CHAIR/[id number] TRANSFER - STEP 3: Does the patient need only verbal/nonverbal cueing or touching/steadying/contact guard assistance fro m one helper? No. CHAIR/[id number] TRANSFER - STEP 4: Does the patient need physical assistance - for example lifting or trunk support from one helper - wi th the helper providing less than half of the effort? No. CHAIR/[id number] TRANSFER - STEP 5: Does the patient need physical assistance - for example lifting or trunk support from one helper - wi th the helper providing more than half of the effort? No. CHAIR/[id number]-[id number] TRANSFER - STEP 6: Does the helper provide all of the effort? OR Is the assistance of two or more helpers required to co mplete the activity? Yes. 1. [id number] ADMISSION PERFORMANCE: Dependent CODE: [id number] - COMMENTS: Pt unable to make a step, requires squat pivot technique. TRANSFER TOILET: TOILET TRANSFER - STEP 1: Does the patient complete the activity by him/herself with no assistance (physical, verbal/nonverbal cueing, setup/clean-up)? No. TOILET TRANSFER - STEP 2: Does the patient need only setup/clean-up assistance from one helper? No. TOILET TRANSFER - STEP 3: Does the patient need only verbal/nonverbal cueing or touching/steadying/contact guard assistance fro m one helper? No. TOILET TRANSFER - STEP 4: Does the patient need physical assistance - for example lifting or trunk support from one helper - wi th the helper providing less than half of the effort? No. TOILET TRANSFER - STEP 5: Does the patient need physical assistance - for example lifting or trunk support from one helper - wi th the helper providing more than half of the effort? No. TOILET TRANSFER - STEP 6: Does the helper provide all of the effort? OR Is the assistance of two or more helpers required to co mplete the activity? Yes. 1. [id number] ADMISSION PERFORMANCE: Dependent CODE: - COMMENTS: Pt unable to make a step, requires squat pivot technique. TRANSFERS: CAR: Not attempted due to medical condition or safety concerns CODE: 88 WALK 10 FEET: WALK 10 FEET - STEP 1: Does the patient complete the activity by him/herself with no assistance (physical, verbal/nonverbal cueing, setup/clean-up)? No. WALK 10 FEET - STEP 2: Does the patient need only setup/clean-up assistance from one helper? No. WALK 10 FEET - STEP 3: Does the patient need only verbal/nonverbal cueing or touching/steadying/contact guard assistance fro m one helper? No. WALK 10 FEET - STEP 4: Does the patient need physical assistance - for example lifting or trunk support from one helper - wi th the helper providing less than half of the effort? No. WALK 10 FEET - STEP 5: Does the patient need physical assistance - for example lifting or trunk support from one helper - wi th the helper providing more than half of the effort? No. WALK 10 FEET - STEP 6: Does the helper provide all of the effort? OR Is the assistance of two or more helpers required to co mplete the activity? Yes. 1. [id number] ADMISSION PERFORMANCE: Dependent CODE: I - COMMENTS: Attempted, unable to lift RLE inspite of stabilizing L knee WALK 50 FEET: Not attempted due to medical condition or safety concerns CODE: 88 WALK 150 FEET: Not attempted due to medical condition or safety concerns CODE: 88 WALK 10 FEET UNEVEN: Not attempted due to medical condition or safety concerns CODE: 88 1 STEP (CURB): Not attempted due to medical condition or safety concerns CODE: 88 PICKING UP OBJECT: Not attempted due to medical condition or safety concerns CODE: 88 DOES THE PATIENT USE A WHEELCHAIR/SCOOTER? Q1. DOES THE PATIENT USE A WHEELCHAIR/SCOOTER?: Yes CODE: 1 WHEEL 50 FEET WITH TWO TURNS: WHEEL 50 FEET WITH TWO TURNS - STEP 1: Does the patient complete the activity by him/herself with no assistance (physical, verbal/nonverbal cueing, setup/clean-up)? No. WHEEL 50 FEET WITH TWO TURNS - STEP 2: Does the patient need only setup/clean-up assistance from one helper? No. WHEEL 50 FEET WITH TWO TURNS - STEP 3: Does the patient need only verbal/nonverbal cueing or touching/steadying/contact guard assistance fro m one helper? No. WHEEL 50 FEET WITH TWO TURNS - STEP 4: Does the patient need physical assistance - for example lifting or trunk support from one helper - wi th the helper providing less than half of the effort? No. WHEEL 50 FEET WITH TWO TURNS - STEP 5: Does the patient need physical assistance - for example lifting or trunk support from one helper - wi th the helper providing more than half of the effort? Yes. 1. [id number] ADMISSION PERFORMANCE: Substantial/maximal assistance CODE: 02 [id number] - COMMENTS: Max A with LUE with L arm tray and LLE on leg rest, able to propel w/c with RUE and RLE INDICATE THE TYPE OF WHEELCHAIR/SCOOTER USED: RR1. INDICATE THE TYPE OF WHEELCHAIR/SCOOTER USED.: Manual CODE: 1 WHEEL 150 FEET: Not attempted due to medical condition or safety concerns WHEEL 150 FEET - STEP 1: Does the patient complete the activity by him/herself with no assistance (physical, verbal/nonverbal cueing, setup/clean-up)? No. WHEEL 150 FEET - STEP 2: Does the patient need only setup/clean-up assistance from one helper? No. WHEEL 150 FEET - STEP 3: Does the patient need only verbal/nonverbal cueing or touching/steadying/contact guard assistance fro m one helper? No. WHEEL 150 FEET - STEP 4: Does the patient need physical assistance - for example lifting or trunk support from one helper - wi th the helper providing less than half of the effort? No. WHEEL 150 FEET - STEP 5: Does the patient need physical assistance - for example lifting or trunk support from one helper - wi th the helper providing more than half of the effort? No. WHEEL 150 FEET - STEP 6: Does the helper provide all of the effort? OR Is the assistance of two or more helpers required to co mplete the activity? Yes. 1. [id number] ADMISSION PERFORMANCE: Dependent CODE: 01 INDICATE THE TYPE OF WHEELCHAIR/SCOOTER USED: SS1. INDICATE THE TYPE OF WHEELCHAIR/SCOOTER USED.: Manual CODE: 1 BLADDER AND BOWEL: CODE: EXPR CODE: EXPR SIGNATURE PANEL: The following modified sections: 1. [id number] Admission Performance, 1. [id number] Admission Performance, [id number] - Comments:, 1. [id number] Admission Performance, [id number] - Comments:, 1. [id number] Admission Perf ormance, [id number] - Comments:, 1. [id number] Admission Performance, [id number] - Comments:, 1. [id number] Admis tony Performance, [id number] - Comments:, 1. [id number] Admission Performance, [id number] - Comments:, [id number] - Comments:, 1. [id number] Admission Performance, Q1. Does the patient use a wheelchair/scooter?, 1. [id number] 0170R Admission Performance, [id number] - Comments:, RR1. Indicate the type of wheelchair/scooter used., Code, 1. [id number] Admission Performance, Code, 1. [id number] Admission Performance, Code, 1. [id number] Adm ission Performance, Code, SS1. Indicate the type of wheelchair/scooter used. were [electronically] si gned by Mono Aggarwal on Sat Sep 27 2019 13:35:59 GMT-0600 (Central Standard Time)
[2019-09-27] MEDS: APIXABAN 2.5 MG TABLET PO SCH (20:15)
[2019-09-27] MEDS: MELATONIN 3 MG TABLET PO SCH (20:15)
[2019-09-27] MEDS: TAMSULOSIN 0.4 MG SR CAP PO SCH (20:16)
[2019-09-27] MEDS: ATORVASTATIN 80 MG TAB PO SCH (20:16)
[2019-09-27] MEDS: PROMOD 30 ML DOSE PO SCH (20:17)
[2019-09-27] MEDS: ENSURE HIGH PROTEIN 237 ML CAN PO SCH (20:17)
[2019-09-28] MEDS: LABETALOL HCL 100 MG TAB PO SCH ×3 (05:14→19:56)
[2019-09-28] MEDS: PANTOPRAZOLE 40MG TABLET PO SCH (07:11)
[2019-09-28] MEDS: BUDESONIDE FORMOTEROL IH SCH ×2 (08:00→19:57)
[2019-09-28] MEDS: DULERA 100/5 (MOMETASONE/FORMOTEROL) INHALER IH SCH ×2 (08:28→19:55)
[2019-09-28] MEDS: VALSARTAN 160 MG TAB PO SCH (08:32)
[2019-09-28] MEDS: APIXABAN 2.5 MG TABLET PO SCH ×2 (08:32→19:56)
[2019-09-28] MEDS: POTASSIUM CL SA 10 MEQ TAB PO SCH ×2 (08:33→19:56)
[2019-09-28] MEDS: CLOPIDOGREL 75 MG TABLET PO SCH (08:33)
[2019-09-28] MEDS: ASPIRIN EC 81 MG TAB PO SCH (08:34)
[2019-09-28] MEDS: ENSURE HIGH PROTEIN 237 ML CAN PO SCH ×2 (08:34→19:57)
[2019-09-28] MEDS: PROMOD 30 ML DOSE PO SCH ×2 (08:34→19:57)
[2019-09-28] MEDS: HYDROCODONE/APAP 5/325 MG TAB PO PRN ×3 (08:46→19:55)
[2019-09-28 11:34] LABS: Urine Appearance TURBID; Urine Bilirubin NEGATIVE (NEG); Urine Blood 3+ (NEG); Urine Color YELLOW; Urine Glucose NEGATIVE (NEG); Urine Protein 2+ (NEG); Urine Specific Gravity 1.015 (1.005-1.030); Urine Urobilinogen 0.2 mg/dL (0.2-1.0)
[2019-09-28 12:12] LABS: Urine Bacteria >50 /HPF (<20); Urine Culture Reflex Order NOT NEEDED; Urine RBC 20-50 /HPF (NONE SEEN)
[2019-09-28] MEDS: BENZONATATE 100 MG CAP PO PRN ×2 (13:33→19:57)
[2019-09-28] MEDS: MELATONIN 3 MG TABLET PO SCH (19:55)
[2019-09-28] MEDS: SMZ./TMP. 800/160 MG TABLET PO SCH (19:56)
[2019-09-28] MEDS: ATORVASTATIN 80 MG TAB PO SCH (19:56)
[2019-09-28] MEDS: TAMSULOSIN 0.4 MG SR CAP PO SCH (19:57)
[2019-09-29] MEDS: LABETALOL HCL 100 MG TAB PO SCH ×3 (05:17→21:37)
[2019-09-29] MEDS: PANTOPRAZOLE 40MG TABLET PO SCH (06:22)
[2019-09-29] MEDS: HYDROCODONE/APAP 5/325 MG TAB PO PRN ×3 (06:22→16:45)
[2019-09-29] MEDS: ENSURE HIGH PROTEIN 237 ML CAN PO SCH ×3 (08:00→20:00)
[2019-09-29] MEDS: BUDESONIDE FORMOTEROL IH SCH ×2 (08:00→19:39)
[2019-09-29] MEDS: DULERA 100/5 (MOMETASONE/FORMOTEROL) INHALER IH SCH ×2 (08:00→19:40)
[2019-09-29] MEDS: PROMOD 30 ML DOSE PO SCH ×2 (08:00→19:38)
[2019-09-29] MEDS: APIXABAN 2.5 MG TABLET PO SCH ×2 (08:33→19:39)
[2019-09-29] MEDS: CLOPIDOGREL 75 MG TABLET PO SCH (08:33)
[2019-09-29] MEDS: SMZ./TMP. 800/160 MG TABLET PO SCH ×2 (08:33→19:39)
[2019-09-29] MEDS: VALSARTAN 160 MG TAB PO SCH (08:33)
[2019-09-29] MEDS: POTASSIUM CL SA 10 MEQ TAB PO SCH (08:34)
[2019-09-29] MEDS: ASPIRIN EC 81 MG TAB PO SCH (08:34)
--- NOTE | 2019-09-29 15:52 | FAST ---
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 Wyatt Saavedra ADMISSION DIAGNOSIS: - Stroke 01 - Left Body (Right Brain) (01.1) Acute Ischemic Right MCA Stroke. EATING: EATING - STEP 1: Does the patient complete the activity by him/herself with no assistance (physical, verbal/nonverbal cueing, setup/clean-up)? No. EATING - STEP 2: Does the patient need only setup/clean-up assistance from one helper? No. EATING - STEP 3: Does the patient need only verbal/nonverbal cueing or touching/steadying/contact guard assistance fro m one helper? No. EATING - STEP 4: Does the patient need physical assistance - for example lifting or trunk support from one helper - wi th the helper providing less than half of the effort? No. EATING - STEP 5: Does the patient need physical assistance - for example lifting or trunk support from one helper - wi th the helper providing more than half of the effort? Yes. 1. [id number] ADMISSION PERFORMANCE: Substantial/maximal assistance CODE: 02 ORAL HYGIENE: Not assessed/no information CODE: - TOILETING HYGIENE: Not assessed/no information CODE: - BATHING: Not assessed/no information CODE: - DRESSING - UPPER BODY: DRESSING - UPPER BODY - STEP 1: Does the patient complete the activity by him/herself with no assistance (physical, verbal/nonverbal cueing, setup/clean-up)? No. DRESSING - UPPER BODY - STEP 2: Does the patient need only setup/clean-up assistance from one helper? No. DRESSING - UPPER BODY - STEP 3: Does the patient need only verbal/nonverbal cueing or touching/steadying/contact guard assistance fro m one helper? No. DRESSING - UPPER BODY - STEP 4: Does the patient need physical assistance - for example lifting or trunk support from one helper - wi th the helper providing less than half of the effort? No. DRESSING - UPPER BODY - STEP 5: Does the patient need physical assistance - for example lifting or trunk support from one helper - wi th the helper providing more than half of the effort? No. DRESSING - UPPER BODY - STEP 6: Does the helper provide all of the effort? OR Is the assistance of two or more helpers required to co mplete the activity? Yes. 1. [id number] ADMISSION PERFORMANCE: Dependent CODE: 01 DRESSING - LOWER BODY: DRESSING - LOWER BODY - STEP 1: Does the patient complete the activity by him/herself with no assistance (physical, verbal/nonverbal cueing, setup/clean-up)? No. DRESSING - LOWER BODY - STEP 2: Does the patient need only setup/clean-up assistance from one helper? No. DRESSING - LOWER BODY - STEP 3: Does the patient need only verbal/nonverbal cueing or touching/steadying/contact guard assistance fro m one helper? No. DRESSING - LOWER BODY - STEP 4: Does the patient need physical assistance - for example lifting or trunk support from one helper - wi th the helper providing less than half of the effort? No. DRESSING - LOWER BODY - STEP 5: Does the patient need physical assistance - for example lifting or trunk support from one helper - wi th the helper providing more than half of the effort? No. DRESSING - LOWER BODY - STEP 6: Does the helper provide all of the effort? OR Is the assistance of two or more helpers required to co mplete the activity? Yes. 1. [id number] ADMISSION PERFORMANCE: Dependent CODE: PUTTING ON/TAKING OFF FOOTWEAR: FOOTWEAR - STEP 1: Does the patient complete the activity by him/herself with no assistance (physical, verbal/nonverbal cueing, setup/clean-up)? No. FOOTWEAR - STEP 2: Does the patient need only setup/clean-up assistance from one helper? No. FOOTWEAR - STEP 3: Does the patient need only verbal/nonverbal cueing or touching/steadying/contact guard assistance fro m one helper? No. FOOTWEAR - STEP 4: Does the patient need physical assistance - for example lifting or trunk support from one helper - wi th the helper providing less than half of the effort? No. FOOTWEAR - STEP 5: Does the patient need physical assistance - for example lifting or trunk support from one helper - wi th the helper providing more than half of the effort? No. FOOTWEAR - STEP 6: Does the helper provide all of the effort? OR Is the assistance of two or more helpers required to co mplete the activity? Yes. 1. [id number] ADMISSION PERFORMANCE: Dependent CODE: 01 DOES THE PATIENT USE A WHEELCHAIR/SCOOTER? CODE: EXPR INDICATE THE TYPE OF WHEELCHAIR/SCOOTER USED: CODE: EXPR INDICATE THE TYPE OF WHEELCHAIR/SCOOTER USED: CODE: EXPR BLADDER AND BOWEL: H350. BLADDER CONTINENCE (3-DAY ASSESSMENT PERIOD): Always incontinent CODE: 4 H400. BOWEL CONTINENCE (3-DAY ASSESSMENT PERIOD): Always incontinent (no episodes of continent bowel movements) CODE: 3 SIGNATURE PANEL: The following modified sections: 1. [id number] Admission Performance, 1. CE6143t Admission Performance, 1. [id number] Admission Performance, 1. RX1848a Admission Performance, 1. HN3785k Admission Performance, H350. Bladder Continence (3-day assessment period), H400. Bowel Continence (3-day assessment period) were [electronically] signed by Steven [email or web address] on SunSep 29 2019 15:51:34 GMT-0600 ([facility] Time)
[2019-09-29] MEDS ORDERED: ALBUTEROL 2.5 MG/3 ML NEB SOL NEB PRN (16:03)
[2019-09-29] MEDS: TRAMADOL HCL 50 MG TAB PO PRN (16:03)
[2019-09-29] MEDS ORDERED: IPRATROPIUM BROM 0.5MG/2.5ML IH PRN (16:05)
--- NOTE | 2019-09-29 17:47 | R.PN ---
ENCOUNTER DATE AND TIME: 09/29/2019 17:29 (SUPERVISOR GEAR REPAIR) NAME NAI RAGLAND DATE OF : 1935 DATE OF ADMISSION: 09/27/2019 12:34 (SUPERVISOR GEAR REPAIR) Acute Ischemic Right MCA StrokeCHIEF COMPLAINT: Dense left face, arm and leg weakness, dysarthria and dysphagia SUBJECTIVE: Pt denied any depression. Pt denied any Shortness of Breath. She denies pain, admits to difficulty swallowing. Marked left sided weakness 0/5 in the arm, 1-2/5 in the left leg with significant left sided neglect. She has a modified barium study scheduled. Max to total assistance needed to bed mobility, transfers and standing in the parallel bars. Labs reviewed and are stable. WBC 5.3, Hgb 11.2. Prealbumin very low at 9.6. She is on promod 30 ml b id. UA shows positive nitrite, 3+ esterase, loaded WBC, 3+ blood and >50 bacteria. Cultures grew >100 ,000 CFU of 4+ gram negative rods. Sensitivities pending. Started on Bactrim Ds bid on 09/28/19. VITAL SIGNS Temperature: 98.6 F SBP/DBP: 151/70 Pulse: 77 Resp: 20 MEDICATION ALLERGIES: No Known Drug Allergies (NKDA) ENVIRONMENTAL ALLERGIES: None Known - Substance Allergies None Known - Other Allergies None Known NURSING: - Shower allowing shower - Bladder care per protocol - Skin care per protocol PRECAUTIONS: - Weight Bearing Precaution WBAT left LE ACTIVITIES OOB only with supervision THERAPIES: - Occupational Therapy Cognitive Retraining. Visual Perceptual Training. - Dietary and Nutrition Adequate Nutrition. Nutritional Education. Nutritional Supplements. - Speech Therapy Cognitive Training. Dysphagia Therapy. Expressive Language Skills. Memory Strategies. Receptive Langu age Skills. Speech Intelligibility Training. PHYSICAL EXAM - Gen Alert and awake Lying in bed No apparent distress Oriented to: person, time, and place - Skin No skin breakdown. Normacephalic - Eyes No abnormalities - ENMT No abnormalities - Neck No abnormalities - CVS RRR - Chest Mildly decreased breath sounds bilaterally. - Abd Soft - GI Non distended Deferred - No abnormalities - Ext Mild left lower extremity edema. - MSK 0-1+/5 weakness in left upper and lower extremity. - Neuro 0-1+/5 weakness in left upper and lower extremity. Marked left jorge-neglect. - Psych No abnormalities ASSESSMENT: Pt. is a 84 yo Right-handed white female.On 09/15/2019 Pt. presented to [facility] with sudden onset of left-side weakness.On 09/15/2019 she was admitted to [facility] with diagnosis Acute I schemic Right MCA Stroke.Her impairment category is Stroke 01 - Left Body (Right Brain) (01.1).Pre-m orbidly, Pt. was independent/mod-I in Locomotion, Safety Awareness, Balance, Social Cognition, Transf ers Control, Sphincter Control, Self-Care, Communication, and Endurance; and she had good Locomotion, Balance, Safety Awareness, Social Cognition, Transfers Control, Sphincter Control, Self-Care, Commun ication, and Endurance.Currently, she has deficits of Locomotion, Safety Awareness, Balance, Transfer s Control, Self-Care, Communication, and Endurance.Pt. is now [facility] to [facility] for acute in-patient rehabilitation in order to maximize patient's functional independence in activities of daily living, strength, ROM, and mobility.- Rehab Goal Patient has realistic goal of being discharged at assistance level 6-Hunter to reside at Home with Fam fernando/Relatives. MDM/PLAN: - Physical Therapy Gait dysfunction - to improve, our physical therapists will perform initial evaluation of pt's statu s upon admission and devise an individualized program for Gait Training, and Wheel Chair mobility Inability to transfer - to improve, our physical therapists will perform initial evaluation of pt's status upon admission and devise an individualized program for Bed mobility Need for home safety evaluation - to improve, our physical therapists will perform initial evaluatio n of pt's status upon admission and devise an individualized program for Home Evaluation Need in caregiver upon discharge - to improve, our physical therapists will perform initial evaluati on of pt's status upon admission and devise an individualized program for Caregiver Training New precaution - to improve, our physical therapists will perform initial evaluation of pt's status upon admission and devise an individualized program for Patient precaution education Poor balance - to improve, our physical therapists will perform initial evaluation of pt's status up on admission and devise an individualized program for Balance Training Poor endurance - to improve, our physical therapists will perform initial evaluation of pt's status upon admission and devise an individualized program for Endurance Training Weakness - to improve, our physical therapists will perform initial evaluation of pt's status upon a dmission and devise an individualized program for Aquatic Therapy, Neuromuscular Reeducation, and Str engthening Achieving independence - to improve, our physical therapists will perform initial evaluation of pt's status upon admission and devise an individualized program for Community Reintegration Activities - Occupational Therapy ADL deficits - to improve, our occupation therapists will perform initial evaluation of pt's status upon admission and devise an individualized program for Bathing, Bed mobility, Community Reintegratio n, Cooking, Dressing, Eating, Fine Motor Skills, Grooming, Homemaking, Kitchen Mobility, Laundry, Pat ient Education, Safety Awareness, Splinting - Positioning, Transfers(Toilet, Tub, Shower), and Wheel Chair Management Need for health care marketing specialist - to improve, our occupation therapists will perform initial evaluation of pt's status upon admission and devise an individualized program for Caregiver Training Weakness - to improve, our occupation therapists will perform initial evaluation of pt's status upon admission and devise an individualized program for Aquatic Therapy, Balance, Endurance, UE ROM, and UE strengthening - Other See attached MAR (Medication Administration Record) See attached MAR (Medication Administration Record) Nai Ragland.pdf See attached MAR (Medication Administration Record) Nai Ragland.pdf - Diet Type Continue Regular - Diet - Liquid Texture Continue Thin - Tube Feed Continue N/A - Bladder care per protocol - Weight Bearing Precaution WBAT left LE - Skin care per protocol - Diet - Solid Texture Continue Regular Continue Mechanical Soft - Shower allowing shower for Dementia, TBI, Stroke, or others FUNCTIONAL STATUS: - Self-Care A. Eating modA B. Grooming modA C. Bathing maxA D. Dressing - Upper modA E. Dressing - Lower maxA F. Toileting maxA - Sphincter Control G. Bladder control modA H. Bowel control modA - Transfers Control I. Bed/Chair/Wheelchair Dep J. Toilet Dep K. Tub/Shower Dep - Locomotion L. Walk/Wheelchair (B) Dep M. Stairs ADNO - Communication N. Comprehension (B) maxA O. Expression (B) modA - Social Cognition P. Social Interaction modA Q. Problem Solving maxA R. Memory modA - Endurance Fair - Balance Poor - Safety Awareness Poor QI SCORES: - Self-Care A. Eating 04-Supervision or touching assistance B. Oral hygiene 04-Supervision or touching assistance C. Toileting hygiene 02-Substantial/maximal assistance E. Shower/bathe self 02-Substantial/maximal assistance F. Upper body dressing 02-Substantial/maximal assistance G. Lower body dressing 01-Dependent H. Putting on/taking off footwear 01-Dependent - Mobility A. Roll left and right 02-Substantial/maximal assistance B. Sit to lying 02-Substantial/maximal assistance C. Lying to sitting on side of bed 02-Substantial/maximal assistance D. Sit to stand 02-Substantial/maximal assistance E. Chair/qha-rf-kyamm transfer 02-Substantial/maximal assistance F. Toilet transfer 02-Substantial/maximal assistance G. Car transfer 10-Not attempted due to environmental limitations I. Walk 10 feet 88-Not attempted due to medical condition or safety concerns J. Walk 50 feet with two turns 88-Not attempted due to medical condition or safety concerns K. Walk 150 feet 88-Not attempted due to medical condition or safety concerns L. Walking 10 feet on uneven surfaces 88-Not attempted due to medical condition or safety concerns M. 1 step (curb) 88-Not attempted due to medical condition or safety concerns N. 4 steps 88-Not attempted due to medical condition or safety concerns O. 12 steps 88-Not attempted due to medical condition or safety concerns P. Picking up object 88-Not attempted due to medical condition or safety concerns R. Wheel 50 feet with two turns 88-Not attempted due to medical condition or safety concerns S. Wheel 150 feet 88-Not attempted due to medical condition or safety concerns - Bladder and Bowel Bladder continence 0-Always continent Bowel continence 0-Always continent - Endurance Poor - Balance Poor - Safety Awareness Poor CURRENT FUNC. DEFICITS: Self-Care, Mobility, Endurance, Balance, and Safety Awareness SIGNATURE PANEL: (SUPERVISOR GEAR REPAIR)
[2019-09-29] MEDS: TAMSULOSIN 0.4 MG SR CAP PO SCH (21:36)
[2019-09-29] MEDS: ATORVASTATIN 80 MG TAB PO SCH (21:36)
[2019-09-29] MEDS: MELATONIN 3 MG TABLET PO SCH (21:38)
[2019-09-30] MEDS: LABETALOL HCL 100 MG TAB PO SCH ×4 (05:12→23:24)
[2019-09-30] MEDS: TRAMADOL HCL 50 MG TAB PO PRN ×3 (05:13→22:04)
[2019-09-30] MEDS ORDERED: LIDOCAINE 4% PATCH TOP SCH (08:00)
[2019-09-30] MEDS: DULERA 100/5 (MOMETASONE/FORMOTEROL) INHALER IH SCH ×2 (08:00→20:00)
[2019-09-30] MEDS: ENSURE HIGH PROTEIN 237 ML CAN PO SCH ×2 (08:00→20:00)
[2019-09-30] MEDS: BUDESONIDE FORMOTEROL IH SCH ×2 (08:00→20:00)
[2019-09-30] MEDS: PROMOD 30 ML DOSE PO SCH ×2 (08:00→20:00)
[2019-09-30] MEDS: ASPIRIN EC 81 MG TAB PO SCH (08:51)
[2019-09-30] MEDS: CLOPIDOGREL 75 MG TABLET PO SCH (08:51)
[2019-09-30] MEDS: APIXABAN 2.5 MG TABLET PO SCH (08:51)
[2019-09-30] MEDS: PANTOPRAZOLE 40MG TABLET PO SCH (08:52)
[2019-09-30] MEDS: SMZ./TMP. 800/160 MG TABLET PO SCH (08:52)
[2019-09-30] MEDS: VALSARTAN 160 MG TAB PO SCH (08:52)
[2019-09-30] MEDS: HYDROCODONE/APAP 5/325 MG TAB PO PRN ×2 (08:52→23:23)
[2019-09-30] MEDS: DULOXETINE 20 MG CAP PO SCH (08:53)
--- NOTE | 2019-09-30 11:30 | RAD REPORT ---
EXAM DESCRIPTION: RAD - Barium Swallow Modified - 09/30/2019 11:25 am CLINICAL HISTORY: Dysphagia COMPARISON: No comparisons TECHNIQUE: The patient was given liquid, semi-solid and solid forms of barium. Lateral view fluorosc opic imaging was performed in conjunction with speech pathology service. FINDINGS: Osteophyte or CP prominence (C4-C5), Moderate to severe esophagus stasis and retropulsion. Barium got held up in upper esophagus, cleared to stomach after > 30 sec with pudding and thin liqu id wash. Total fluoroscopy time: 2 minutes and 13 seconds
--- NOTE | 2019-09-30 11:58 | RAD REPORT ---
EXAM DESCRIPTION: US - Extrem Venous W Compress Mateusz - 09/30/2019 11:27 am CLINICAL HISTORY: new hard mass on L calf Bilateral leg edema and swelling. COMPARISON: No comparisons TECHNIQUE: Real-time sonographic interrogation of the left and right lower extremity deep venous sys tems was performed. FINDINGS: The left popliteal vein demonstrates noncompressibility with echogenic material within the vein compatible with small left popliteal DVT. No right-sided DVT is present. Vague hyperechoic tissues seen posterior calf at the area of palpable abnormality, nonspecific. IMPRESSION: Small left popliteal vein DVT suspected. Vague hyperechoic tissue in the posterior left calf palpable region is nonspecific. MR imaging may be of value of this region for better assessment.
--- NOTE | 2019-09-30 14:18 | FAST ---
SHIFT START DATE/TIME: 09/30/2019 07:00 (NATURAL DEVELOPER) SHIFT END DATE/TIME: 09/30/2019 19:00 (NATURAL DEVELOPER) NAME JOSE DE LOS SANTOS DATE OF : 1935 DATE OF ADMISSION: 09/27/2019 12:34 (NATURAL DEVELOPER) PHONE: AGE: 84 N# [id number] GENDER: Female ENCOUNTER PHYSICIAN: Dr. Elvis Munoz M.D. ADMISSION DIAGNOSIS: - Stroke 01 - Left Body (Right Brain) (01.1) Acute Ischemic Right MCA Stroke. EATING: EATING - STEP 1: Does the patient complete the activity by him/herself with no assistance (physical, verbal/nonverbal cueing, setup/clean-up)? No. EATING - STEP 2: Does the patient need only setup/clean-up assistance from one helper? No. EATING - STEP 3: Does the patient need only verbal/nonverbal cueing or touching/steadying/contact guard assistance fro m one helper? Yes. 1. [id number] ADMISSION PERFORMANCE: Supervision or touching assistance CODE: 04 ORAL HYGIENE: Not assessed/no information CODE: - TOILETING HYGIENE: Not assessed/no information CODE: - BATHING: Not assessed/no information CODE: - DRESSING - UPPER BODY: DRESSING - UPPER BODY - STEP 1: Does the patient complete the activity by him/herself with no assistance (physical, verbal/nonverbal cueing, setup/clean-up)? No. DRESSING - UPPER BODY - STEP 2: Does the patient need only setup/clean-up assistance from one helper? No. DRESSING - UPPER BODY - STEP 3: Does the patient need only verbal/nonverbal cueing or touching/steadying/contact guard assistance fro m one helper? No. DRESSING - UPPER BODY - STEP 4: Does the patient need physical assistance - for example lifting or trunk support from one helper - wi th the helper providing less than half of the effort? No. DRESSING - UPPER BODY - STEP 5: Does the patient need physical assistance - for example lifting or trunk support from one helper - wi th the helper providing more than half of the effort? No. DRESSING - UPPER BODY - STEP 6: Does the helper provide all of the effort? OR Is the assistance of two or more helpers required to co mplete the activity? Yes. 1. [id number] ADMISSION PERFORMANCE: Dependent CODE: 01 DRESSING - LOWER BODY: DRESSING - LOWER BODY - STEP 1: Does the patient complete the activity by him/herself with no assistance (physical, verbal/nonverbal cueing, setup/clean-up)? No. DRESSING - LOWER BODY - STEP 2: Does the patient need only setup/clean-up assistance from one helper? No. DRESSING - LOWER BODY - STEP 3: Does the patient need only verbal/nonverbal cueing or touching/steadying/contact guard assistance fro m one helper? No. DRESSING - LOWER BODY - STEP 4: Does the patient need physical assistance - for example lifting or trunk support from one helper - wi th the helper providing less than half of the effort? No. DRESSING - LOWER BODY - STEP 5: Does the patient need physical assistance - for example lifting or trunk support from one helper - wi th the helper providing more than half of the effort? No. DRESSING - LOWER BODY - STEP 6: Does the helper provide all of the effort? OR Is the assistance of two or more helpers required to co mplete the activity? Yes. 1. [id number] ADMISSION PERFORMANCE: Dependent CODE: 01 PUTTING ON/TAKING OFF FOOTWEAR: FOOTWEAR - STEP 1: Does the patient complete the activity by him/herself with no assistance (physical, verbal/nonverbal cueing, setup/clean-up)? No. FOOTWEAR - STEP 2: Does the patient need only setup/clean-up assistance from one helper? No. FOOTWEAR - STEP 3: Does the patient need only verbal/nonverbal cueing or touching/steadying/contact guard assistance fro m one helper? No. FOOTWEAR - STEP 4: Does the patient need physical assistance - for example lifting or trunk support from one helper - wi th the helper providing less than half of the effort? No. FOOTWEAR - STEP 5: Does the patient need physical assistance - for example lifting or trunk support from one helper - wi th the helper providing more than half of the effort? No. FOOTWEAR - STEP 6: Does the helper provide all of the effort? OR Is the assistance of two or more helpers required to co mplete the activity? Yes. 1. [id number] ADMISSION PERFORMANCE: Dependent CODE: 01 DOES THE PATIENT USE A WHEELCHAIR/SCOOTER? CODE: EXPR INDICATE THE TYPE OF WHEELCHAIR/SCOOTER USED: CODE: EXPR INDICATE THE TYPE OF WHEELCHAIR/SCOOTER USED: CODE: EXPR BLADDER AND BOWEL: H350. BLADDER CONTINENCE (3-DAY ASSESSMENT PERIOD): Always incontinent CODE: 4 H400. BOWEL CONTINENCE (3-DAY ASSESSMENT PERIOD): Always incontinent (no episodes of continent bowel movements) CODE: 3 SIGNATURE PANEL: The following modified sections: 1. [id number] Admission Performance, 1. [id number] Admission Performance, 1. [id number] Admission Performance, 1. [id number] Admission Performance, 1. [id number] Admission Performance, H350. Bladder Continence (3-day assessment period), H400. Bowel Continence (3-day assessment period) were [electronically] signed by Steven [email or web address] on SunSep 30 2019 14:16:46 T-0600 ([facility] tandard Time)
[2019-09-30] MEDS: ONDANSETRON 4 MG (ODT) TAB PO PRN ×2 (14:55→20:41)
--- NOTE | 2019-09-30 17:45 | R.PN ---
ENCOUNTER DATE AND TIME: 09/30/2019 17:36 (RIGGER HELPER) NAME NAI RAGLAND DATE OF : 1935 DATE OF ADMISSION: 09/27/2019 12:34 (RIGGER HELPER) Acute Ischemic Right MCA StrokeCHIEF COMPLAINT: Dense left face, arm and leg weakness, dysarthria and dysphagia SUBJECTIVE: Pt denied any depression. Pt denied any Shortness of Breath. She denies pain, admits to difficulty swallowing. Marked left sided weakness 0/5 in the arm, 1-2/5 in the left leg with significant left sided neglect. She has a modified barium study scheduled. Max to total assistance needed to bed mobility, transfers and standing in the parallel bars. Labs reviewed and are stable. WBC 5.3, Hgb 11.2. Prealbumin very low at 9.6. She is on promod 30 ml b id. UA shows positive nitrite, 3+ esterase, loaded WBC, 3+ blood and >50 bacteria. Cultures grew >100 ,000 CFU of 4+ gram negative rods, enterobacter cloacae sensitive to levofloxacin and resistant to Ba ctrim Ds started on 09/28/19. Bactrim is D/Blane. VITAL SIGNS Temperature: 97.2 F SBP/DBP: 144/67 Pulse: 60 Resp: 16 MEDICATION ALLERGIES: No Known Drug Allergies (NKDA) ENVIRONMENTAL ALLERGIES: None Known - Substance Allergies None Known - Other Allergies None Known NURSING: - Shower allowing shower - Bladder care per protocol - Skin care per protocol PRECAUTIONS: - Weight Bearing Precaution WBAT left LE ACTIVITIES OOB only with supervision THERAPIES: - Occupational Therapy Cognitive Retraining. Visual Perceptual Training. - Dietary and Nutrition Adequate Nutrition. Nutritional Education. Nutritional Supplements. - Speech Therapy Cognitive Training. Dysphagia Therapy. Expressive Language Skills. Memory Strategies. Receptive Langu age Skills. Speech Intelligibility Training. PHYSICAL EXAM - Gen Alert and awake Lying in bed No apparent distress Oriented to: person, time, and place - Skin No skin breakdown. Normacephalic - Eyes No abnormalities - ENMT No abnormalities - Neck No abnormalities - CVS RRR - Chest Mildly decreased breath sounds bilaterally. - Abd Soft - GI Non distended Deferred - No abnormalities - Ext Mild left lower extremity edema. - MSK 0-1+/5 weakness in left upper and lower extremity. - Neuro 0-1+/5 weakness in left upper and lower extremity. Marked left jorge-neglect. - Psych No abnormalities ASSESSMENT: Pt. is a 84 yo Right-handed white female.On 09/15/2019 Pt. presented to [facility] with sudden onset of left-side weakness.On 09/15/2019 she was admitted to [facility] with diagnosis Acute I schemic Right MCA Stroke.Her impairment category is Stroke 01 - Left Body (Right Brain) (01.1).Pre-m orbidly, Pt. was independent/mod-I in Locomotion, Safety Awareness, Balance, Social Cognition, Transf ers Control, Sphincter Control, Self-Care, Communication, and Endurance; and she had good Locomotion, Balance, Safety Awareness, Social Cognition, Transfers Control, Sphincter Control, Self-Care, Commun ication, and Endurance.Currently, she has deficits of Locomotion, Safety Awareness, Balance, Transfer s Control, Self-Care, Communication, and Endurance.Pt. is now referred to [facility] for acute in-patient rehabilitation in order to maximize patient's functional independence in activities of daily living, strength, ROM, and mobility.- Rehab Goal Patient has realistic goal of being discharged at assistance level 6-Hunter to reside at Home with Fam fernando/Relatives. MDM/PLAN: - Physical Therapy Gait dysfunction - to improve, our physical therapists will perform initial evaluation of pt's statu s upon admission and devise an individualized program for Gait Training, and Wheel Chair mobility Inability to transfer - to improve, our physical therapists will perform initial evaluation of pt's status upon admission and devise an individualized program for Bed mobility Need for home safety evaluation - to improve, our physical therapists will perform initial evaluatio n of pt's status upon admission and devise an individualized program for Home Evaluation Need in caregiver upon discharge - to improve, our physical therapists will perform initial evaluati on of pt's status upon admission and devise an individualized program for Caregiver Training New precaution - to improve, our physical therapists will perform initial evaluation of pt's status upon admission and devise an individualized program for Patient precaution education Poor balance - to improve, our physical therapists will perform initial evaluation of pt's status up on admission and devise an individualized program for Balance Training Poor endurance - to improve, our physical therapists will perform initial evaluation of pt's status upon admission and devise an individualized program for Endurance Training Weakness - to improve, our physical therapists will perform initial evaluation of pt's status upon a dmission and devise an individualized program for Aquatic Therapy, Neuromuscular Reeducation, and Str engthening Achieving independence - to improve, our physical therapists will perform initial evaluation of pt's status upon admission and devise an individualized program for Community Reintegration Activities - Occupational Therapy ADL deficits - to improve, our occupation therapists will perform initial evaluation of pt's status upon admission and devise an individualized program for Bathing, Bed mobility, Community Reintegratio n, Cooking, Dressing, Eating, Fine Motor Skills, Grooming, Homemaking, Kitchen Mobility, Laundry, Pat ient Education, Safety Awareness, Splinting - Positioning, Transfers(Toilet, Tub, Shower), and Wheel Chair Management Need for healthcare social worker - to improve, our occupation therapists will perform initial evaluation of pt's status upon admission and devise an individualized program for Caregiver Training Weakness - to improve, our occupation therapists will perform initial evaluation of pt's status upon admission and devise an individualized program for Aquatic Therapy, Balance, Endurance, UE ROM, and UE strengthening - Other See attached MAR (Medication Administration Record) See attached MAR (Medication Administration Record) Nai Ragland.pdf - Diet Type Continue Regular - Diet - Liquid Texture Continue Thin - Tube Feed Continue N/A - Bladder care per protocol - Weight Bearing Precaution WBAT left LE - Skin care per protocol - Diet - Solid Texture Continue Regular Continue Mechanical Soft - Shower allowing shower for Dementia, TBI, Stroke, or others FUNCTIONAL STATUS: UPDATED AT WEEKLY TEAM CONFERENCE - Bladder Same accident frequency: 7-Ind - No accidents in the past 7 days - Bowel Same accident frequency: 7-Ind - No accidents in the past 7 days - Walking Same score based on distance walked: 0(N/A) - Wheelchair Same score based on distance traveled: 0(N/A) FUNCTIONAL STATUS: - Self-Care A. Eating modA B. Grooming modA C. Bathing maxA D. Dressing - Upper modA E. Dressing - Lower maxA F. Toileting maxA - Sphincter Control G. Bladder control modA H. Bowel control modA - Transfers Control I. Bed/Chair/Wheelchair Dep J. Toilet Dep K. Tub/Shower Dep - Locomotion L. Walk/Wheelchair (B) Dep M. Stairs ADNO - Communication N. Comprehension (B) maxA O. Expression (B) modA - Social Cognition P. Social Interaction modA Q. Problem Solving maxA R. Memory modA - Endurance Fair - Balance Poor - Safety Awareness Poor QI SCORES: - Self-Care A. Eating 04-Supervision or touching assistance B. Oral hygiene 04-Supervision or touching assistance C. Toileting hygiene 02-Substantial/maximal assistance E. Shower/bathe self 02-Substantial/maximal assistance F. Upper body dressing 02-Substantial/maximal assistance G. Lower body dressing 01-Dependent H. Putting on/taking off footwear 01-Dependent - Mobility A. Roll left and right 02-Substantial/maximal assistance B. Sit to lying 02-Substantial/maximal assistance C. Lying to sitting on side of bed 02-Substantial/maximal assistance D. Sit to stand 02-Substantial/maximal assistance E. Chair/onf-qs-[id number] transfer 02-Substantial/maximal assistance F. Toilet transfer 02-Substantial/maximal assistance G. Car transfer 10-Not attempted due to environmental limitations I. Walk 10 feet 88-Not attempted due to medical condition or safety concerns J. Walk 50 feet with two turns 88-Not attempted due to medical condition or safety concerns K. Walk 150 feet 88-Not attempted due to medical condition or safety concerns L. Walking 10 feet on uneven surfaces 88-Not attempted due to medical condition or safety concerns M. 1 step (curb) 88-Not attempted due to medical condition or safety concerns N. 4 steps 88-Not attempted due to medical condition or safety concerns O. 12 steps 88-Not attempted due to medical condition or safety concerns P. Picking up object 88-Not attempted due to medical condition or safety concerns R. Wheel 50 feet with two turns 88-Not attempted due to medical condition or safety concerns S. Wheel 150 feet 88-Not attempted due to medical condition or safety concerns - Bladder and Bowel Bladder continence 0-Always continent Bowel continence 0-Always continent - Endurance Poor - Balance Poor - Safety Awareness Poor CURRENT FUNC. DEFICITS: Self-Care, Mobility, Endurance, Balance, and Safety Awareness SIGNATURE PANEL: (RIGGER HELPER)
[2019-09-30] MEDS: TAMSULOSIN 0.4 MG SR CAP PO SCH ×2 (20:37→22:00)
[2019-09-30] MEDS: ATORVASTATIN 80 MG TAB PO SCH ×2 (20:37→22:00)
[2019-09-30] MEDS: DOCUSATE NA/SENNA CONC 1 TAB PO PRN (20:37)
[2019-09-30] MEDS: APIXABAN 5 MG TABLET PO SCH (21:50)
[2019-09-30] MEDS: MELATONIN 3 MG TABLET PO SCH (21:50)
[2019-10-01] MEDS: LABETALOL HCL 100 MG TAB PO SCH ×3 (06:06→20:55)
[2019-10-01] MEDS: PROMOD 30 ML DOSE PO SCH ×2 (08:00→20:00)
[2019-10-01] MEDS: ENSURE HIGH PROTEIN 237 ML CAN PO SCH ×2 (08:00→20:00)
[2019-10-01] MEDS: BUDESONIDE FORMOTEROL IH SCH ×2 (08:00→20:00)
[2019-10-01] MEDS: DULERA 100/5 (MOMETASONE/FORMOTEROL) INHALER IH SCH ×2 (08:00→20:54)
[2019-10-01] MEDS: PANTOPRAZOLE 40MG TABLET PO SCH (08:45)
[2019-10-01] MEDS: APIXABAN 5 MG TABLET PO SCH ×2 (08:56→20:55)
[2019-10-01] MEDS: CLOPIDOGREL 75 MG TABLET PO SCH (08:56)
[2019-10-01] MEDS: ASPIRIN EC 81 MG TAB PO SCH (08:56)
[2019-10-01] MEDS: levoFLOXacin 500 MG TAB PO SCH (08:57)
[2019-10-01] MEDS: DULOXETINE 20 MG CAP PO SCH (08:57)
[2019-10-01] MEDS: DOCUSATE NA/SENNA CONC 1 TAB PO PRN ×2 (08:58→20:54)
[2019-10-01] MEDS: VALSARTAN 160 MG TAB PO SCH (08:58)
[2019-10-01] MEDS: LIDOCAINE 4% PATCH TOP SCH (10:03)
[2019-10-01] MEDS: ONDANSETRON 4 MG (ODT) TAB PO PRN ×2 (10:45→20:55)
[2019-10-01] MEDS ORDERED: BISACODYL 10 MG RECTAL SUPP PR PRN (13:55)
[2019-10-01] MEDS: HYDROCODONE/APAP 5/325 MG TAB PO PRN (14:15)
[2019-10-01] MEDS: METOCLOPRAMIDE 5 MG TAB PO PRN (15:06)
[2019-10-01] MEDS: TRAMADOL HCL 50 MG TAB PO PRN ×2 (15:07→20:55)
--- NOTE | 2019-10-01 15:25 | RAD REPORT ---
EXAM DESCRIPTION: RAD - Abdomen 1 View (KUB) - 10/01/2019 2:36 pm CLINICAL HISTORY: Distended abdomen COMPARISON: Barium Swallow Modified dated 09/30/2019 FINDINGS: Bowel gas pattern is non-specific. No obstruction, free air or pneumatosis. No suspicious calcifications. Contrast is present in the right-side of the colon from modified barium swallow yest erday. No significant bony findings IMPRESSION: KUB examination shows no obstruction, free air or other significant finding.
--- NOTE | 2019-10-01 18:01 | R.PN ---
ENCOUNTER DATE AND TIME: 10/01/2019 17:58 (GERMINATION WORKER) NAME NAI RAGLAND DATE OF : 1935 DATE OF ADMISSION: 09/27/2019 12:34 (GERMINATION WORKER) Acute Ischemic Right MCA StrokeCHIEF COMPLAINT: Dense left face, arm and leg weakness, dysarthria and dysphagia SUBJECTIVE: Pt denied any depression. Pt denied any Shortness of Breath. She denies pain, admits to difficulty swallowing. Marked left sided weakness 0/5 in the arm, 1-2/5 in the left leg with significant left sided neglect. She has a modified barium study scheduled. Max to total assistance needed to bed mobility, transfers and standing in the parallel bars. Labs reviewed and are stable. WBC 5.3, Hgb 11.2. Prealbumin very low at 9.6. She is on promod 30 ml b id. UA shows positive nitrite, 3+ esterase, loaded WBC, 3+ blood and >50 bacteria. Cultures grew >100 ,000 CFU of 4+ gram negative rods, enterobacter cloacae sensitive to levofloxacin and resistant to Ba ctrim Ds started on 09/28/19. Bactrim is D/Blane. VITAL SIGNS Temperature: 97.2 F SBP/DBP: 109/64 Pulse: 76 Resp: 16 MEDICATION ALLERGIES: No Known Drug Allergies (NKDA) ENVIRONMENTAL ALLERGIES: None Known - Substance Allergies None Known - Other Allergies None Known NURSING: - Shower allowing shower - Bladder care per protocol - Skin care per protocol PRECAUTIONS: - Weight Bearing Precaution WBAT left LE ACTIVITIES OOB only with supervision THERAPIES: - Occupational Therapy Cognitive Retraining. Visual Perceptual Training. - Dietary and Nutrition Adequate Nutrition. Nutritional Education. Nutritional Supplements. - Speech Therapy Cognitive Training. Dysphagia Therapy. Expressive Language Skills. Memory Strategies. Receptive Langu age Skills. Speech Intelligibility Training. PHYSICAL EXAM - Gen Alert and awake Lying in bed No apparent distress Oriented to: person, time, and place - Skin No skin breakdown. Normacephalic - Eyes No abnormalities - ENMT No abnormalities - Neck No abnormalities - CVS RRR - Chest Mildly decreased breath sounds bilaterally. - Abd Soft - GI Non distended Deferred - No abnormalities - Ext Mild left lower extremity edema. - MSK 0-1+/5 weakness in left upper and lower extremity. - Neuro 0-1+/5 weakness in left upper and lower extremity. Marked left joreg-neglect. - Psych No abnormalities ASSESSMENT: Pt. is a 84 yo Right-handed white female.On 09/15/2019 Pt. presented to [facility] with sudden onset of left-side weakness.On 09/15/2019 she was admitted to [facility] with diagnosis Acute I schemic Right MCA Stroke.Her impairment category is Stroke 01 - Left Body (Right Brain) (01.1).Pre-m orbidly, Pt. was independent/mod-I in Locomotion, Safety Awareness, Balance, Social Cognition, Transf ers Control, Sphincter Control, Self-Care, Communication, and Endurance; and she had good Locomotion, Balance, Safety Awareness, Social Cognition, Transfers Control, Sphincter Control, Self-Care, Commun ication, and Endurance.Currently, she has deficits of Locomotion, Safety Awareness, Balance, Transfer s Control, Self-Care, Communication, and Endurance.Pt. is now referred to [facility] for acute in-patient rehabilitation in order to maximize patient's functional independence in activities of daily living, strength, ROM, and mobility.- Rehab Goal Patient has realistic goal of being discharged at assistance level 6-Hunter to reside at Home with Fam fernando/Relatives. MDM/PLAN: - Physical Therapy Gait dysfunction - to improve, our physical therapists will perform initial evaluation of pt's statu s upon admission and devise an individualized program for Gait Training, and Wheel Chair mobility Inability to transfer - to improve, our physical therapists will perform initial evaluation of pt's status upon admission and devise an individualized program for Bed mobility Need for home safety evaluation - to improve, our physical therapists will perform initial evaluatio n of pt's status upon admission and devise an individualized program for Home Evaluation Need in caregiver upon discharge - to improve, our physical therapists will perform initial evaluati on of pt's status upon admission and devise an individualized program for Caregiver Training New precaution - to improve, our physical therapists will perform initial evaluation of pt's status upon admission and devise an individualized program for Patient precaution education Poor balance - to improve, our physical therapists will perform initial evaluation of pt's status up on admission and devise an individualized program for Balance Training Poor endurance - to improve, our physical therapists will perform initial evaluation of pt's status upon admission and devise an individualized program for Endurance Training Weakness - to improve, our physical therapists will perform initial evaluation of pt's status upon a dmission and devise an individualized program for Aquatic Therapy, Neuromuscular Reeducation, and Str engthening Achieving independence - to improve, our physical therapists will perform initial evaluation of pt's status upon admission and devise an individualized program for Community Reintegration Activities - Occupational Therapy ADL deficits - to improve, our occupation therapists will perform initial evaluation of pt's status upon admission and devise an individualized program for Bathing, Bed mobility, Community Reintegratio n, Cooking, Dressing, Eating, Fine Motor Skills, Grooming, Homemaking, Kitchen Mobility, Laundry, Pat ient Education, Safety Awareness, Splinting - Positioning, Transfers(Toilet, Tub, Shower), and Wheel Chair Management Need for direct care specialist - to improve, our occupation therapists will perform initial evaluation of pt's status upon admission and devise an individualized program for Caregiver Training Weakness - to improve, our occupation therapists will perform initial evaluation of pt's status upon admission and devise an individualized program for Aquatic Therapy, Balance, Endurance, UE ROM, and UE strengthening - Other See attached MAR (Medication Administration Record) See attached MAR (Medication Administration Record) Nai Ragland.pdf - Diet Type Continue Regular - Diet - Liquid Texture Continue Thin - Tube Feed Continue N/A - Bladder care per protocol - Weight Bearing Precaution WBAT left LE - Skin care per protocol - Diet - Solid Texture Continue Regular Continue Mechanical Soft - Shower allowing shower for Dementia, TBI, Stroke, or others FUNCTIONAL STATUS: UPDATED AT WEEKLY TEAM CONFERENCE - Bladder Same accident frequency: 7-Ind - No accidents in the past 7 days - Bowel Same accident frequency: 7-Ind - No accidents in the past 7 days - Walking Same score based on distance walked: 0(N/A) - Wheelchair Same score based on distance traveled: 0(N/A) FUNCTIONAL STATUS: - Self-Care A. Eating modA B. Grooming modA C. Bathing maxA D. Dressing - Upper modA E. Dressing - Lower maxA F. Toileting maxA - Sphincter Control G. Bladder control modA H. Bowel control modA - Transfers Control I. Bed/Chair/Wheelchair Dep J. Toilet Dep K. Tub/Shower Dep - Locomotion L. Walk/Wheelchair (B) Dep M. Stairs ADNO - Communication N. Comprehension (B) maxA O. Expression (B) modA - Social Cognition P. Social Interaction modA Q. Problem Solving maxA R. Memory modA - Endurance Fair - Balance Poor - Safety Awareness Poor QI SCORES: - Self-Care A. Eating 04-Supervision or touching assistance B. Oral hygiene 04-Supervision or touching assistance C. Toileting hygiene 02-Substantial/maximal assistance E. Shower/bathe self 02-Substantial/maximal assistance F. Upper body dressing 02-Substantial/maximal assistance G. Lower body dressing 01-Dependent H. Putting on/taking off footwear 01-Dependent - Mobility A. Roll left and right 02-Substantial/maximal assistance B. Sit to lying 02-Substantial/maximal assistance C. Lying to sitting on side of bed 02-Substantial/maximal assistance D. Sit to stand 02-Substantial/maximal assistance E. Chair/iiu-ya-uzegf transfer 02-Substantial/maximal assistance F. Toilet transfer 02-Substantial/maximal assistance G. Car transfer 10-Not attempted due to environmental limitations I. Walk 10 feet 88-Not attempted due to medical condition or safety concerns J. Walk 50 feet with two turns 88-Not attempted due to medical condition or safety concerns K. Walk 150 feet 88-Not attempted due to medical condition or safety concerns L. Walking 10 feet on uneven surfaces 88-Not attempted due to medical condition or safety concerns M. 1 step (curb) 88-Not attempted due to medical condition or safety concerns N. 4 steps 88-Not attempted due to medical condition or safety concerns O. 12 steps 88-Not attempted due to medical condition or safety concerns P. Picking up object 88-Not attempted due to medical condition or safety concerns R. Wheel 50 feet with two turns 88-Not attempted due to medical condition or safety concerns S. Wheel 150 feet 88-Not attempted due to medical condition or safety concerns - Bladder and Bowel Bladder continence 0-Always continent Bowel continence 0-Always continent - Endurance Poor - Balance Poor - Safety Awareness Poor CURRENT FUNC. DEFICITS: Self-Care, Mobility, Endurance, Balance, and Safety Awareness SIGNATURE PANEL: (GERMINATION WORKER)
[2019-10-01] MEDS: ATORVASTATIN 80 MG TAB PO SCH (20:54)
[2019-10-01] MEDS: MELATONIN 3 MG TABLET PO SCH (20:55)
[2019-10-01] MEDS: TAMSULOSIN 0.4 MG SR CAP PO SCH (20:55)
[2019-10-02] MEDS: LABETALOL HCL 100 MG TAB PO SCH ×3 (05:14→21:13)
[2019-10-02 06:04] LABS: Absolute Lymphocytes (CBC) 1.3 K/uL (0.7-4.9); Basophils % 0.2 % (0-1.3); Hematocrit 35.1 % (36.0-45.0); Lymphocytes % 21.2 % (15.3-44.8); MPV 8.4 fL (7.6-11.3); RBC Red Blood Cell Count 3.62 M/uL (3.86-4.86)
[2019-10-02 06:15] LABS: Albumin 2.5 g/dL (3.4-5.0); Magnesium 1.8 mg/dL (1.8-2.4); Potassium 4.7 mmol/L (3.5-5.1); Prealbumin 18.8 mg/dL (20-40)
[2019-10-02] MEDS: PANTOPRAZOLE 40MG TABLET PO SCH (06:57)
[2019-10-02] MEDS: ONDANSETRON 4 MG (ODT) TAB PO PRN ×3 (06:57→21:14)
[2019-10-02 07:54] LABS: Blood Morphology Comment NOT SEEN (NOT SEEN); Platelet Estimate ADEQ
[2019-10-02] MEDS: BUDESONIDE FORMOTEROL IH SCH ×2 (08:00→20:00)
[2019-10-02] MEDS: DULERA 100/5 (MOMETASONE/FORMOTEROL) INHALER IH SCH ×2 (08:00→21:12)
[2019-10-02] MEDS: ENSURE HIGH PROTEIN 237 ML CAN PO SCH ×2 (08:00→20:00)
[2019-10-02] MEDS: PROMOD 30 ML DOSE PO SCH ×2 (08:00→20:00)
[2019-10-02] MEDS: CLOPIDOGREL 75 MG TABLET PO SCH (08:17)
[2019-10-02] MEDS: METOCLOPRAMIDE 5 MG TAB PO PRN (08:17)
[2019-10-02] MEDS: DULOXETINE 20 MG CAP PO SCH (08:18)
[2019-10-02] MEDS: ASPIRIN EC 81 MG TAB PO SCH (08:18)
[2019-10-02] MEDS: VALSARTAN 160 MG TAB PO SCH (08:19)
[2019-10-02] MEDS: APIXABAN 5 MG TABLET PO SCH ×2 (08:19→21:13)
[2019-10-02] MEDS: levoFLOXacin 500 MG TAB PO SCH (08:19)
[2019-10-02] MEDS: LIDOCAINE 4% PATCH TOP SCH (09:00)
--- NOTE | 2019-10-02 14:15 | FAST ---
ENCOUNTER DATE AND TIME: 10/02/2019 08:00 (SUPERVISOR PA[employer]) NAME JOSE DE LOS SANTOS DATE OF : 1935 DATE OF ADMISSION: 09/27/2019 12:34 (SUPERVISOR [employer]) PHONE: AGE: 84 N# [id number] GENDER: Female ENCOUNTER PHYSICIAN: Dr. Elvis Munoz M.D. ADMISSION DIAGNOSIS: - Stroke 01 - Left Body (Right Brain) (01.1) Acute Ischemic Right MCA Stroke. ROLL LEFT AND RIGHT: ROLL LEFT AND RIGHT - STEP 1: Does the patient complete the activity by him/herself with no assistance (physical, verbal/nonverbal cueing, setup/clean-up)? Yes. 1. [id number] ADMISSION PERFORMANCE: Independent CODE: 06 SIT TO LYING: SIT TO LYING - STEP 1: Does the patient complete the activity by him/herself with no assistance (physical, verbal/nonverbal cueing, setup/clean-up)? Yes. 1. [id number] ADMISSION PERFORMANCE: Independent CODE: 06 LYING TO SITTING: LYING TO SITTING ON SIDE OF BED - STEP 1: Does the patient complete the activity by him/herself with no assistance (physical, verbal/nonverbal cueing, setup/clean-up)? Yes. 1. [id number] ADMISSION PERFORMANCE: Independent CODE: 06 SIT TO STAND: SIT TO STAND - STEP 1: Does the patient complete the activity by him/herself with no assistance (physical, verbal/nonverbal cueing, setup/clean-up)? Yes. 1. [id number] ADMISSION PERFORMANCE: Independent CODE: 06 TRANSFERS: BED, CHAIR: CHAIR/[id number] TRANSFER - STEP 1: Does the patient complete the activity by him/herself with no assistance (physical, verbal/nonverbal cueing, setup/clean-up)? Yes. 1. [id number] ADMISSION PERFORMANCE: Independent CODE: 06 TRANSFER TOILET: TOILET TRANSFER - STEP 1: Does the patient complete the activity by him/herself with no assistance (physical, verbal/nonverbal cueing, setup/clean-up)? Yes. 1. [id number] ADMISSION PERFORMANCE: Independent CODE: 06 TRANSFERS: CAR: Not attempted due to environmental limitations (e.g., lack of equipment, weather constraints) CODE: 10 WALK 10 FEET: WALK 10 FEET - STEP 1: Does the patient complete the activity by him/herself with no assistance (physical, verbal/nonverbal cueing, setup/clean-up)? Yes. 1. [id number] ADMISSION PERFORMANCE: Independent CODE: 06 WALK 50 FEET: WALK 50 FEET - STEP 1: Does the patient complete the activity by him/herself with no assistance (physical, verbal/nonverbal cueing, setup/clean-up)? No. WALK 50 FEET - STEP 2: Does the patient need only setup/clean-up assistance from one helper? No. WALK 50 FEET - STEP 3: Does the patient need only verbal/nonverbal cueing or touching/steadying/contact guard assistance fro m one helper? Yes. 1. [id number] ADMISSION PERFORMANCE: Supervision or touching assistance CODE: 04 WALK 150 FEET: WALK 150 FEET - STEP 1: Does the patient complete the activity by him/herself with no assistance (physical, verbal/nonverbal cueing, setup/clean-up)? No. WALK 150 FEET - STEP 2: Does the patient need only setup/clean-up assistance from one helper? No. WALK 150 FEET - STEP 3: Does the patient need only verbal/nonverbal cueing or touching/steadying/contact guard assistance fro m one helper? Yes. 1. [id number] ADMISSION PERFORMANCE: Supervision or touching assistance CODE: 04 WALK 10 FEET UNEVEN: Not attempted due to medical condition or safety concerns CODE: 88 1 STEP (CURB): Not attempted due to medical condition or safety concerns CODE: 88 PICKING UP OBJECT: Not attempted due to medical condition or safety concerns CODE: 88 DOES THE PATIENT USE A WHEELCHAIR/SCOOTER? Q1. DOES THE PATIENT USE A WHEELCHAIR/SCOOTER?: Yes CODE: 1 WHEEL 50 FEET WITH TWO TURNS: WHEEL 50 FEET WITH TWO TURNS - STEP 1: Does the patient complete the activity by him/herself with no assistance (physical, verbal/nonverbal cueing, setup/clean-up)? Yes. 1. [id number] ADMISSION PERFORMANCE: Independent CODE: 06 INDICATE THE TYPE OF WHEELCHAIR/SCOOTER USED: RR1. INDICATE THE TYPE OF WHEELCHAIR/SCOOTER USED.: Manual CODE: 1 WHEEL 150 FEET: WHEEL 150 FEET - STEP 1: Does the patient complete the activity by him/herself with no assistance (physical, verbal/nonverbal cueing, setup/clean-up)? Yes. 1. [id number] ADMISSION PERFORMANCE: Independent CODE: 06 INDICATE THE TYPE OF WHEELCHAIR/SCOOTER USED: SS1. INDICATE THE TYPE OF WHEELCHAIR/SCOOTER USED.: Manual CODE: 1 BLADDER AND BOWEL: CODE: EXPR CODE: EXPR SIGNATURE PANEL: The following modified sections: 1. [id number] Admission Performance, 1. [id number] Admission Performance, 1. [id number] Admission Performance, 1. [id number] Admission Performance, 1. [id number] Admission Performance, 1. [id number] Admission Performance, 1. [id number] Admission Performance, 1. [id number] Admission Performance , 1. [id number] Admission Performance, 1. [id number] Admission Performance, Q1. Does the patient use a whee lchair/scooter?, 1. [id number] Admission Performance, RR1. Indicate the type of wheelchair/scooter used. , 1. [id number] Admission Performance, Code, SS1. Indicate the type of wheelchair/scooter used. were [el ectronically] signed by Anatoliy Abdul, MING on SunOct 02 2019 14:14:49 GMT-0600 (Central Standard T eliud)
[2019-10-02] MEDS: TRAMADOL HCL 50 MG TAB PO PRN (14:25)
--- NOTE | 2019-10-02 17:13 | R.PN ---
ENCOUNTER DATE AND TIME: 10/02/2019 17:08 (SLPS) NAME NAI RAGLAND DATE OF : 1935 DATE OF ADMISSION: 09/27/2019 12:34 (SLPS) Acute Ischemic Right MCA StrokeCHIEF COMPLAINT: Dense left face, arm and leg weakness, dysarthria and dysphagia SUBJECTIVE: Pt denied any depression. Pt denied any Shortness of Breath. She denies pain, admits to difficulty swallowing. Marked left sided weakness 0/5 in the arm, 1-2/5 in the left leg with significant left sided neglect. She has a modified barium study scheduled. Max to total assistance needed to bed mobility, transfers and standing in the parallel bars. Labs reviewed and are stable. WBC 5.9, Hgb 11.8. Prealbumin improved to 18.8. She is on promod 30 ml bid. UA shows positive nitrite, 3+ esterase, loaded WBC, 3+ blood and >50 bacteria. Cultures grew >10 0,000 CFU of 4+ gram negative rods, enterobacter cloacae sensitive to levofloxacin and resistant to B actrim Ds started on 09/28/19. Bactrim is D/Blane. VITAL SIGNS Temperature: 97.2 F SBP/DBP: 138/62 Pulse: 88 Resp: 14 MEDICATION ALLERGIES: No Known Drug Allergies (NKDA) ENVIRONMENTAL ALLERGIES: None Known - Substance Allergies None Known - Other Allergies None Known NURSING: - Shower allowing shower - Bladder care per protocol - Skin care per protocol PRECAUTIONS: - Weight Bearing Precaution WBAT left LE ACTIVITIES OOB only with supervision THERAPIES: - Occupational Therapy Cognitive Retraining. Visual Perceptual Training. - Dietary and Nutrition Adequate Nutrition. Nutritional Education. Nutritional Supplements. - Speech Therapy Cognitive Training. Dysphagia Therapy. Expressive Language Skills. Memory Strategies. Receptive Langu age Skills. Speech Intelligibility Training. PHYSICAL EXAM - Gen Alert and awake Lying in bed No apparent distress Oriented to: person, time, and place - Skin No skin breakdown. Normacephalic - Eyes No abnormalities - ENMT No abnormalities - Neck No abnormalities - CVS RRR - Chest Mildly decreased breath sounds bilaterally. - Abd Soft - GI Non distended Deferred - No abnormalities - Ext Mild left lower extremity edema. - MSK 0-1+/5 weakness in left upper and lower extremity. - Neuro 0-1+/5 weakness in left upper and lower extremity. Marked left jorge-neglect. - Psych No abnormalities ASSESSMENT: Pt. is a 84 yo Right-handed white female.On 09/15/2019 Pt. presented to [facility] with sudden onset of left-side weakness.On 09/15/2019 she was admitted to [facility] with diagnosis Acute I schemic Right MCA Stroke.Her impairment category is Stroke 01 - Left Body (Right Brain) (01.1).Pre-m orbidly, Pt. was independent/mod-I in Locomotion, Safety Awareness, Balance, Social Cognition, Transf ers Control, Sphincter Control, Self-Care, Communication, and Endurance; and she had good Locomotion, Balance, Safety Awareness, Social Cognition, Transfers Control, Sphincter Control, Self-Care, Commun ication, and Endurance.Currently, she has deficits of Locomotion, Safety Awareness, Balance, Transfer s Control, Self-Care, Communication, and Endurance.Pt. is now referred to [facility] for acute in-patient rehabilitation in order to maximize patient's functional independence in activities of daily living, strength, ROM, and mobility.- Rehab Goal Patient has realistic goal of being discharged at assistance level 6-Hunter to reside at Home with Fam fernando/Relatives. MDM/PLAN: - Physical Therapy Gait dysfunction - to improve, our physical therapists will perform initial evaluation of pt's statu s upon admission and devise an individualized program for Gait Training, and Wheel Chair mobility Inability to transfer - to improve, our physical therapists will perform initial evaluation of pt's status upon admission and devise an individualized program for Bed mobility Need for home safety evaluation - to improve, our physical therapists will perform initial evaluatio n of pt's status upon admission and devise an individualized program for Home Evaluation Need in caregiver upon discharge - to improve, our physical therapists will perform initial evaluati on of pt's status upon admission and devise an individualized program for Caregiver Training New precaution - to improve, our physical therapists will perform initial evaluation of pt's status upon admission and devise an individualized program for Patient precaution education Poor balance - to improve, our physical therapists will perform initial evaluation of pt's status up on admission and devise an individualized program for Balance Training Poor endurance - to improve, our physical therapists will perform initial evaluation of pt's status upon admission and devise an individualized program for Endurance Training Weakness - to improve, our physical therapists will perform initial evaluation of pt's status upon a dmission and devise an individualized program for Aquatic Therapy, Neuromuscular Reeducation, and Str engthening Achieving independence - to improve, our physical therapists will perform initial evaluation of pt's status upon admission and devise an individualized program for Community Reintegration Activities - Occupational Therapy ADL deficits - to improve, our occupation therapists will perform initial evaluation of pt's status upon admission and devise an individualized program for Bathing, Bed mobility, Community Reintegratio n, Cooking, Dressing, Eating, Fine Motor Skills, Grooming, Homemaking, Kitchen Mobility, Laundry, Pat ient Education, Safety Awareness, Splinting - Positioning, Transfers(Toilet, Tub, Shower), and Wheel Chair Management Need for infant caregiver - to improve, our occupation therapists will perform initial evaluation of pt's status upon admission and devise an individualized program for Caregiver Training Weakness - to improve, our occupation therapists will perform initial evaluation of pt's status upon admission and devise an individualized program for Aquatic Therapy, Balance, Endurance, UE ROM, and UE strengthening - Other See attached MAR (Medication Administration Record) See attached MAR (Medication Administration Record) Nai Ragland.pdf - Diet Type Continue Regular - Diet - Liquid Texture Continue Thin - Tube Feed Continue N/A - Bladder care per protocol - Weight Bearing Precaution WBAT left LE - Skin care per protocol - Diet - Solid Texture Continue Regular Continue Mechanical Soft - Shower allowing shower for Dementia, TBI, Stroke, or others FUNCTIONAL STATUS: UPDATED AT WEEKLY TEAM CONFERENCE - Bladder Same accident frequency: 7-Ind - No accidents in the past 7 days - Bowel Same accident frequency: 7-Ind - No accidents in the past 7 days - Walking Same score based on distance walked: 0(N/A) - Wheelchair Same score based on distance traveled: 0(N/A) FUNCTIONAL STATUS: - Self-Care A. Eating modA B. Grooming modA C. Bathing maxA D. Dressing - Upper modA E. Dressing - Lower maxA F. Toileting maxA - Sphincter Control G. Bladder control modA H. Bowel control modA - Transfers Control I. Bed/Chair/Wheelchair Dep J. Toilet Dep K. Tub/Shower Dep - Locomotion L. Walk/Wheelchair (B) Dep M. Stairs ADNO - Communication N. Comprehension (B) maxA O. Expression (B) modA - Social Cognition P. Social Interaction modA Q. Problem Solving maxA R. Memory modA - Endurance Fair - Balance Poor - Safety Awareness Poor QI SCORES: - Self-Care A. Eating 04-Supervision or touching assistance B. Oral hygiene 04-Supervision or touching assistance C. Toileting hygiene 02-Substantial/maximal assistance E. Shower/bathe self 02-Substantial/maximal assistance F. Upper body dressing 02-Substantial/maximal assistance G. Lower body dressing 01-Dependent H. Putting on/taking off footwear 01-Dependent - Mobility A. Roll left and right 02-Substantial/maximal assistance B. Sit to lying 02-Substantial/maximal assistance C. Lying to sitting on side of bed 02-Substantial/maximal assistance D. Sit to stand 02-Substantial/maximal assistance E. Chair/jbc-[id number] transfer 02-Substantial/maximal assistance F. Toilet transfer 02-Substantial/maximal assistance G. Car transfer 10-Not attempted due to environmental limitations I. Walk 10 feet 88-Not attempted due to medical condition or safety concerns J. Walk 50 feet with two turns 88-Not attempted due to medical condition or safety concerns K. Walk 150 feet 88-Not attempted due to medical condition or safety concerns L. Walking 10 feet on uneven surfaces 88-Not attempted due to medical condition or safety concerns M. 1 step (curb) 88-Not attempted due to medical condition or safety concerns N. 4 steps 88-Not attempted due to medical condition or safety concerns O. 12 steps 88-Not attempted due to medical condition or safety concerns P. Picking up object 88-Not attempted due to medical condition or safety concerns R. Wheel 50 feet with two turns 88-Not attempted due to medical condition or safety concerns S. Wheel 150 feet 88-Not attempted due to medical condition or safety concerns - Bladder and Bowel Bladder continence 0-Always continent Bowel continence 0-Always continent - Endurance Poor - Balance Poor - Safety Awareness Poor CURRENT FUNC. DEFICITS: Self-Care, Mobility, Endurance, Balance, and Safety Awareness SIGNATURE PANEL: (SLPS)
[2019-10-02] MEDS: HYDROCODONE/APAP 5/325 MG TAB PO PRN (21:12)
[2019-10-02] MEDS: ATORVASTATIN 80 MG TAB PO SCH (21:13)
[2019-10-02] MEDS: DOCUSATE NA/SENNA CONC 1 TAB PO PRN (21:13)
[2019-10-02] MEDS: MELATONIN 3 MG TABLET PO SCH (21:14)
[2019-10-02] MEDS: TAMSULOSIN 0.4 MG SR CAP PO SCH (21:14)
[2019-10-03] MEDS: LABETALOL HCL 100 MG TAB PO SCH ×3 (05:51→22:17)
[2019-10-03] MEDS: PANTOPRAZOLE 40MG TABLET PO SCH (07:14)
[2019-10-03] MEDS: PROMOD 30 ML DOSE PO SCH ×2 (08:00→19:59)
[2019-10-03] MEDS: ENSURE HIGH PROTEIN 237 ML CAN PO SCH ×2 (08:00→19:59)
[2019-10-03] MEDS: BUDESONIDE FORMOTEROL IH SCH ×2 (08:00→20:00)
[2019-10-03] MEDS: HYDROCODONE/APAP 5/325 MG TAB PO PRN ×2 (09:06→19:53)
[2019-10-03] MEDS: VALSARTAN 160 MG TAB PO SCH (09:08)
[2019-10-03] MEDS: levoFLOXacin 500 MG TAB PO SCH (09:08)
[2019-10-03] MEDS: ASPIRIN EC 81 MG TAB PO SCH (09:08)
[2019-10-03] MEDS: LIDOCAINE 4% PATCH TOP SCH (09:08)
[2019-10-03] MEDS: CLOPIDOGREL 75 MG TABLET PO SCH (09:09)
[2019-10-03] MEDS: APIXABAN 5 MG TABLET PO SCH ×2 (09:09→19:58)
[2019-10-03] MEDS: METOCLOPRAMIDE 5 MG TAB PO PRN (09:09)
[2019-10-03] MEDS: DULERA 100/5 (MOMETASONE/FORMOTEROL) INHALER IH SCH ×2 (09:10→20:00)
--- NOTE | 2019-10-03 10:00 | P.RH.PN ---
Estimated Length of Stay: 24 Expected Discharge Date: 10/19/19 Discharge Disposition Plan: Home Family Support: Yes Assisted Goal: Mobility, Transfers, Self Care Vital Signs: Last Vital Signs Temp 96.2 F L 10/03/19 07:00 Pulse 75 10/03/19 09:08 Resp 17 10/03/19 09:06 BP 140/74 10/03/19 09:08 Pulse Ox 94 10/03/19 09:06 Laboratory: Laboratory Last Values WBC 5.9 K/uL (4.3-10.9) 10/02/19 05:42 RBC 3.62 M/uL (3.86-4.86) L 10/02/19 05:42 Hgb 11.8 g/dL (12.0-15.0) L 10/02/19 05:42 Hct 35.1 % (36.0-45.0) L 10/02/19 05:42 MCV 97.2 fL (80-100) 10/02/19 05:42 MCH 32.5 pg (27.0-35.0) 10/02/19 05:42 MCHC 33.5 g/dL (32.0-36.0) 10/02/19 05:42 RDW 13.3 % (12.1-15.2) 10/02/19 05:42 Plt Count 291 K/uL (152-406) 10/02/19 05:42 MPV 8.4 fL (7.6-11.3) 10/02/19 05:42 Neutrophils % 68.7 % (41.7-73.7) 10/02/19 05:42 Lymphocytes % 21.2 % (15.3-44.8) 10/02/19 05:42 Monocytes % 9.5 % (3.3-12.3) 10/02/19 05:42 Eosinophils % 0.4 % (0-4.4) 10/02/19 05:42 Basophils % 0.2 % (0-1.3) 10/02/19 05:42 Absolute Neutrophils 4.1 K/uL (1.8-8.0) 10/02/19 05:42 Segmented Neutrophils 69 % (40-80) 10/02/19 05:42 Absolute Lymphocytes 1.3 K/uL (0.7-4.9) 10/02/19 05:42 Lymphocytes 24 % (15-42) 10/02/19 05:42 Monocytes 5 % (0-10) 10/02/19 05:42 Absolute Monocytes 0.6 K/uL (0.1-1.3) 10/02/19 05:42 Absolute Eosinophils 0.0 K/uL (0-0.5) 10/02/19 05:42 Absolute Basophils 0.0 K/uL (0-0.5) 10/02/19 05:42 Metamyelocytes 2 % (0-0) H 10/02/19 05:42 Morphology Comment Not seen (NOT SEEN) 10/02/19 05:42 Sodium 136 mmol/L (136-145) 10/02/19 05:42 Potassium 4.7 mmol/L (3.5-5.1) 10/02/19 05:42 Chloride 100 mmol/L (98-107) 10/02/19 05:42 Carbon Dioxide 30 mmol/L (21-32) 10/02/19 05:42 BUN 18 mg/dL (7-18) 10/02/19 05:42 Creatinine 1.00 mg/dL (0.55-1.3) 10/02/19 05:42 Estimated GFR 53 mL/min (=/>90) L 10/02/19 05:42 Glucose 112 mg/dL (74-106) H 10/02/19 05:42 Calcium 9.7 mg/dL (8.5-10.1) 10/02/19 05:42 Magnesium 1.8 mg/dL (1.8-2.4) 10/02/19 05:42 Albumin 2.5 g/dL (3.4-5.0) L 10/02/19 05:42 Prealbumin 18.8 mg/dL (20-40) L 10/02/19 05:42 Urine Color Yellow 09/28/19 11:00 Urine Appearance Turbid 09/28/19 11:00 Urine pH 6.0 (5.0-7.0) 09/28/19 11:00 Ur Specific [place] 1.015 (1.005-1.030) 09/28/19 11:00 Glucose (UA)(Auto) Negative (NEG) 09/28/19 11:00 Urine Ketones Negative (NEG) 09/28/19 11:00 Urine Blood 3+ (NEG) H 09/28/19 11:00 Urine Nitrite Positive (NEG) H 09/28/19 11:00 Urine Bilirubin Negative (NEG) 09/28/19 11:00 Urine Urobilinogen 0.2 mg/dL (0.2-1.0) 09/28/19 11:00 Ur Leukocyte Esterase 3+ (NEG) H 09/28/19 11:00 Urine RBC 20-50 /HPF (NONE SEEN) H 09/28/19 11:00 Urine WBC Loaded /HPF (<5) H 09/28/19 11:00 Ur Squamous Epith Cells <5 /HPF (NONE SEEN) 09/28/19 11:00 Urine Bacteria >50 /HPF (<20) H 09/28/19 11:00 Urine Culture Reflexed Not needed 09/28/19 11:00 Urine Total Protein 2+ (NEG) H 09/28/19 11:00 Weight: 156 lb 8 oz Wound Present: No Closed Surgical Incision Present: No Negative Pressure Wound Therapy Present: No Physician Update: Labs reviewed and are stable. 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 Medical Issues: LLE DVT - on Eliquis 5mg BID PO. Patient is incontinent daily with bladder and always continent with bowel. Pain Issues: PAtient is taking Edwards 5/325mg Q6H PO PRN and Tramadol 50mg Q6H PO PRN for pain. Functional Improvement: pt has participated to her ability within therapy sessions. pt has improved her ability to right herself when given verbal cues when postural control has diminished. pt is able to maintain midline posturing better. She still suffers from a severe L sided neglect; however, visual scanning is improving. pt still requires total assist for transfers and is unable to maintain standing without total assist. pt unable to attempt ambulation at this time. Speech Therapy Update: Patient presents with mild-moderate cognitive- communication deficits, mild dysarthria, and a severe L side neglect. Patient requires consistent auditory and tactile cues for visual scanning for extra and peripersonal tasks. Patient's affect is quite flat, though she occasionally smiles and appears to interpret humor. Patient c/o back pain and that she does not have a taste for anything. Summary: Patient's care plan and bed bug exterminator goals have been reviewed and revised as necessary. Please see the Rehabilitation Signature page for all necessary signatures.
--- NOTE | 2019-10-03 11:37 | RAD REPORT ---
EXAM DESCRIPTION: RAD - Hip Left 2 View - 10/03/2019 11:27 am CLINICAL HISTORY: pain, left hip pain COMPARISON: No comparisons FINDINGS: AP and frogleg views of the left hip were obtained. There is no fracture or dislocation. No acute or destructive bony process seen. Degenerative change at the hip joint is minimal. No left hip periarticular suspicious finding. Soft tissue calcifications are present. Contrast is present in the colon from the prior diagnostic st udy. SI joint degenerative changes are present. There is degenerative change at the pubic symphysis. IMPRESSION: Mild for age left hip joint degenerative change. No acute finding.
--- NOTE | 2019-10-03 11:48 | RAD REPORT ---
EXAM DESCRIPTION: RAD - Pelvis - 10/03/2019 11:42 am CLINICAL HISTORY: pain Fall, pain COMPARISON: Hip Left 2 View dated 10/03/2019 FINDINGS: Degenerative changes are present in both hips. Contrast is present within the colon. An ac kiel fracture or AVN is not seen.
[2019-10-03] MEDS: DOCUSATE NA/SENNA CONC 1 TAB PO PRN (20:06)
[2019-10-03] MEDS: MELATONIN 3 MG TABLET PO SCH (20:06)
[2019-10-03] MEDS: TAMSULOSIN 0.4 MG SR CAP PO SCH (20:06)
[2019-10-03] MEDS: ATORVASTATIN 80 MG TAB PO SCH (20:06)
--- NOTE | 2019-10-04 02:19 | FAST ---
SHIFT START DATE/TIME: 10/03/2019 19:00 (PROGRAM PRODUCTION SPECIALIST) SHIFT END DATE/TIME: 10/04/2019 07:00 (PROGRAM PRODUCTION SPECIALIST) NAME JOSE DE LOS SANTOS DATE OF : 1935 DATE OF ADMISSION: 09/27/2019 12:34 (PROGRAM PRODUCTION SPECIALIST) PHONE: AGE: 84 N# [id number] GENDER: Female ENCOUNTER PHYSICIAN: Dr. Elvis Munoz M.D. ADMISSION DIAGNOSIS: - Stroke 01 - Left Body (Right Brain) (01.1) Acute Ischemic Right MCA Stroke. EATING: Not assessed/no information CODE: - ORAL HYGIENE: Not assessed/no information CODE: - TOILETING HYGIENE: TOILETING HYGIENE - STEP 1: Does the patient complete the activity by him/herself with no assistance (physical, verbal/nonverbal cueing, setup/clean-up)? No. TOILETING HYGIENE - STEP 2: Does the patient need only setup/clean-up assistance from one helper? No. TOILETING HYGIENE - STEP 3: Does the patient need only verbal/nonverbal cueing or touching/steadying/contact guard assistance fro m one helper? No. TOILETING HYGIENE - STEP 4: Does the patient need physical assistance - for example lifting or trunk support from one helper - wi th the helper providing less than half of the effort? No. TOILETING HYGIENE - STEP 5: Does the patient need physical assistance - for example lifting or trunk support from one helper - wi th the helper providing more than half of the effort? Yes. 1. [id number] ADMISSION PERFORMANCE: Substantial/maximal assistance CODE: 02 BATHING: Not assessed/no information CODE: - DRESSING - UPPER BODY: Not assessed/no information CODE: - DRESSING - LOWER BODY: Not assessed/no information CODE: - PUTTING ON/TAKING OFF FOOTWEAR: Not assessed/no information CODE: - ROLL LEFT AND RIGHT: ROLL LEFT AND RIGHT - STEP 1: Does the patient complete the activity by him/herself with no assistance (physical, verbal/nonverbal cueing, setup/clean-up)? No. ROLL LEFT AND RIGHT - STEP 2: Does the patient need only setup/clean-up assistance from one helper? No. ROLL LEFT AND RIGHT - STEP 3: Does the patient need only verbal/nonverbal cueing or touching/steadying/contact guard assistance fro m one helper? No. ROLL LEFT AND RIGHT - STEP 4: Does the patient need physical assistance - for example lifting or trunk support from one helper - wi th the helper providing less than half of the effort? No. ROLL LEFT AND RIGHT - STEP 5: Does the patient need physical assistance - for example lifting or trunk support from one helper - wi th the helper providing more than half of the effort? Yes. 1. [id number] ADMISSION PERFORMANCE: Substantial/maximal assistance CODE: 02 SIT TO LYING: SIT TO LYING - STEP 1: Does the patient complete the activity by him/herself with no assistance (physical, verbal/nonverbal cueing, setup/clean-up)? No. SIT TO LYING - STEP 2: Does the patient need only setup/clean-up assistance from one helper? No. SIT TO LYING - STEP 3: Does the patient need only verbal/nonverbal cueing or touching/steadying/contact guard assistance fro m one helper? No. SIT TO LYING - STEP 4: Does the patient need physical assistance - for example lifting or trunk support from one helper - wi th the helper providing less than half of the effort? No. SIT TO LYING - STEP 5: Does the patient need physical assistance - for example lifting or trunk support from one helper - wi th the helper providing more than half of the effort? Yes. 1. [id number] ADMISSION PERFORMANCE: Substantial/maximal assistance CODE: 02 LYING TO SITTING: LYING TO SITTING ON SIDE OF BED - STEP 1: Does the patient complete the activity by him/herself with no assistance (physical, verbal/nonverbal cueing, setup/clean-up)? No. LYING TO SITTING ON SIDE OF BED - STEP 2: Does the patient need only setup/clean-up assistance from one helper? No. LYING TO SITTING ON SIDE OF BED - STEP 3: Does the patient need only verbal/nonverbal cueing or touching/steadying/contact guard assistance fro m one helper? No. LYING TO SITTING ON SIDE OF BED - STEP 4: Does the patient need physical assistance - for example lifting or trunk support from one helper - wi th the helper providing less than half of the effort? No. LYING TO SITTING ON SIDE OF BED - STEP 5: Does the patient need physical assistance - for example lifting or trunk support from one helper - wi th the helper providing more than half of the effort? Yes. 1. [id number] ADMISSION PERFORMANCE: Substantial/maximal assistance CODE: 02 SIT TO STAND: SIT TO STAND - STEP 1: Does the patient complete the activity by him/herself with no assistance (physical, verbal/nonverbal cueing, setup/clean-up)? No. SIT TO STAND - STEP 2: Does the patient need only setup/clean-up assistance from one helper? No. SIT TO STAND - STEP 3: Does the patient need only verbal/nonverbal cueing or touching/steadying/contact guard assistance fro m one helper? No. SIT TO STAND - STEP 4: Does the patient need physical assistance - for example lifting or trunk support from one helper - wi th the helper providing less than half of the effort? No. SIT TO STAND - STEP 5: Does the patient need physical assistance - for example lifting or trunk support from one helper - wi th the helper providing more than half of the effort? Yes. 1. [id number] ADMISSION PERFORMANCE: Substantial/maximal assistance CODE: 02 TRANSFERS: BED, CHAIR: CHAIR/[id number] TRANSFER - STEP 1: Does the patient complete the activity by him/herself with no assistance (physical, verbal/nonverbal cueing, setup/clean-up)? No. CHAIR/[id number] TRANSFER - STEP 2: Does the patient need only setup/clean-up assistance from one helper? No. CHAIR/[id number] TRANSFER - STEP 3: Does the patient need only verbal/nonverbal cueing or touching/steadying/contact guard assistance fro m one helper? No. CHAIR/[id number] TRANSFER - STEP 4: Does the patient need physical assistance - for example lifting or trunk support from one helper - wi th the helper providing less than half of the effort? No. CHAIR/[id number] TRANSFER - STEP 5: Does the patient need physical assistance - for example lifting or trunk support from one helper - wi th the helper providing more than half of the effort? Yes. 1. [id number] ADMISSION PERFORMANCE: Substantial/maximal assistance CODE: 02 TRANSFER TOILET: TOILET TRANSFER - STEP 1: Does the patient complete the activity by him/herself with no assistance (physical, verbal/nonverbal cueing, setup/clean-up)? No. TOILET TRANSFER - STEP 2: Does the patient need only setup/clean-up assistance from one helper? No. TOILET TRANSFER - STEP 3: Does the patient need only verbal/nonverbal cueing or touching/steadying/contact guard assistance fro m one helper? No. TOILET TRANSFER - STEP 4: Does the patient need physical assistance - for example lifting or trunk support from one helper - wi th the helper providing less than half of the effort? No. TOILET TRANSFER - STEP 5: Does the patient need physical assistance - for example lifting or trunk support from one helper - wi th the helper providing more than half of the effort? Yes. 1. [id number] ADMISSION PERFORMANCE: Substantial/maximal assistance CODE: 02 TRANSFERS: CAR: Not assessed/no information CODE: - WALK 10 FEET: Not assessed/no information CODE: - 1 STEP (CURB): Not assessed/no information CODE: - PICKING UP OBJECT: Not assessed/no information CODE: - DOES THE PATIENT USE A WHEELCHAIR/SCOOTER? CODE: EXPR WHEEL 50 FEET WITH TWO TURNS: Not assessed/no information CODE: - INDICATE THE TYPE OF WHEELCHAIR/SCOOTER USED: CODE: EXPR WHEEL 150 FEET: Not assessed/no information CODE: - INDICATE THE TYPE OF WHEELCHAIR/SCOOTER USED: CODE: EXPR BLADDER AND BOWEL: H350. BLADDER CONTINENCE (3-DAY ASSESSMENT PERIOD): Always incontinent CODE: 4 H400. BOWEL CONTINENCE (3-DAY ASSESSMENT PERIOD): Always incontinent (no episodes of continent bowel movements) CODE: 3
[2019-10-04] MEDS: LABETALOL HCL 100 MG TAB PO SCH ×3 (05:14→21:32)
[2019-10-04] MEDS: PANTOPRAZOLE 40MG TABLET PO SCH (07:15)
[2019-10-04] MEDS: LIDOCAINE 4% PATCH TOP SCH (07:16)
[2019-10-04] MEDS: BUDESONIDE FORMOTEROL IH SCH (07:24)
[2019-10-04] MEDS ORDERED: DULERA 100/5 (MOMETASONE/FORMOTEROL) INHALER IH SCH (08:00)
[2019-10-04] MEDS: ENSURE HIGH PROTEIN 237 ML CAN PO SCH ×3 (08:00→20:00)
[2019-10-04] MEDS: HYDROCODONE/APAP 5/325 MG TAB PO PRN (08:00)
[2019-10-04] MEDS: APIXABAN 5 MG TABLET PO SCH ×2 (08:01→20:00)
[2019-10-04] MEDS: CLOPIDOGREL 75 MG TABLET PO SCH (08:01)
[2019-10-04] MEDS: levoFLOXacin 500 MG TAB PO SCH (08:01)
[2019-10-04] MEDS: VALSARTAN 160 MG TAB PO SCH (08:01)
[2019-10-04] MEDS: ASPIRIN EC 81 MG TAB PO SCH (08:01)
[2019-10-04] MEDS: PROMOD 30 ML DOSE PO SCH ×2 (08:02→20:00)
[2019-10-04] MEDS: SALMETEROL 50 MCG IH SCH ×2 (10:49→20:00)
[2019-10-04] MEDS: FLUTICASONE 250 MCG IH SCH ×2 (10:49→20:00)
[2019-10-04] MEDS: TRAMADOL HCL 50 MG TAB PO PRN (17:34)
[2019-10-04] MEDS: TAMSULOSIN 0.4 MG SR CAP PO SCH (20:00)
[2019-10-04] MEDS: ATORVASTATIN 80 MG TAB PO SCH (20:00)
[2019-10-04] MEDS: BENZONATATE 100 MG CAP PO PRN (20:01)
[2019-10-05] MEDS: LABETALOL HCL 100 MG TAB PO SCH ×3 (05:18→21:59)
[2019-10-05] MEDS: PANTOPRAZOLE 40MG TABLET PO SCH (06:46)
[2019-10-05] MEDS: LIDOCAINE 4% PATCH TOP SCH (06:46)
[2019-10-05] MEDS ORDERED: levoFLOXacin 500 MG TAB PO SCH (08:00)
[2019-10-05] MEDS: PROMOD 30 ML DOSE PO SCH ×2 (08:00→20:00)
[2019-10-05] MEDS: ENSURE HIGH PROTEIN 237 ML CAN PO SCH ×2 (08:00→20:00)
[2019-10-05] MEDS: HYDROCODONE/APAP 5/325 MG TAB PO PRN ×2 (08:40→16:35)
[2019-10-05] MEDS: CLOPIDOGREL 75 MG TABLET PO SCH (08:42)
[2019-10-05] MEDS: FLUTICASONE 250 MCG IH SCH ×2 (08:42→20:07)
[2019-10-05] MEDS: ASPIRIN EC 81 MG TAB PO SCH (08:42)
[2019-10-05] MEDS: SALMETEROL 50 MCG IH SCH ×2 (08:42→20:07)
[2019-10-05] MEDS: APIXABAN 5 MG TABLET PO SCH ×2 (08:42→20:07)
[2019-10-05] MEDS: VALSARTAN 160 MG TAB PO SCH (08:42)
[2019-10-05] MEDS: ATORVASTATIN 80 MG TAB PO SCH (20:07)
[2019-10-05] MEDS: BENZONATATE 100 MG CAP PO PRN (20:08)
[2019-10-05] MEDS: TAMSULOSIN 0.4 MG SR CAP PO SCH (20:08)
[2019-10-06] MEDS: TRAMADOL HCL 50 MG TAB PO PRN ×2 (03:32→20:31)
[2019-10-06] MEDS: LABETALOL HCL 100 MG TAB PO SCH ×3 (05:22→20:30)
[2019-10-06] MEDS: ENSURE HIGH PROTEIN 237 ML CAN PO SCH ×2 (08:00→20:00)
[2019-10-06] MEDS: SALMETEROL 50 MCG IH SCH ×2 (08:00→20:00)
[2019-10-06] MEDS: PROMOD 30 ML DOSE PO SCH ×2 (08:00→20:00)
[2019-10-06] MEDS: FLUTICASONE 250 MCG IH SCH ×2 (08:00→20:00)
[2019-10-06] MEDS: ASPIRIN EC 81 MG TAB PO SCH (08:10)
[2019-10-06] MEDS: METOCLOPRAMIDE 5 MG TAB PO PRN (08:10)
[2019-10-06] MEDS: PANTOPRAZOLE 40MG TABLET PO SCH (08:10)
[2019-10-06] MEDS: APIXABAN 5 MG TABLET PO SCH ×2 (08:10→20:30)
[2019-10-06] MEDS: CLOPIDOGREL 75 MG TABLET PO SCH (08:10)
[2019-10-06] MEDS: HYDROCODONE/APAP 5/325 MG TAB PO PRN (08:11)
[2019-10-06] MEDS: VALSARTAN 160 MG TAB PO SCH (08:11)
[2019-10-06] MEDS: LIDOCAINE 4% PATCH TOP SCH (08:12)
[2019-10-06] MEDS ORDERED: FORMULATION-R RECTAL 30GM PR PRN (15:34)
--- NOTE | 2019-10-06 17:47 | R.PN ---
ENCOUNTER DATE AND TIME: 10/06/2019 17:43 (ASSISTANT SECRETARY) NAME NAI RAGLAND DATE OF : 1935 DATE OF ADMISSION: 09/27/2019 12:34 (ASSISTANT SECRETARY) Acute Ischemic Right MCA StrokeCHIEF COMPLAINT: Dense left face, arm and leg weakness, dysarthria and dysphagia SUBJECTIVE: Pt denied any depression. Pt denied any Shortness of Breath. She denies pain, admits to mild difficulty swallowing. Marked left sided weakness 0/5 in the arm, 1-2 /5 in the left leg with significant left sided neglect. She has a modified barium study scheduled. Ma x to total assistance needed to bed mobility, transfers and standing in the parallel bars. Labs reviewed and are stable. WBC 5.9, Hgb 11.8. Prealbumin improved to 18.8. She is on promod 30 ml bid. UA shows positive nitrite, 3+ esterase, loaded WBC, 3+ blood and >50 bacteria. Cultures grew >10 0,000 CFU of 4+ gram negative rods, enterobacter cloacae sensitive to levofloxacin and resistant to B actrim Ds started on 09/28/19. Bactrim is D/Blane. Left hip x-ray show mild for age joint degeneration and no acute findings. Pelvic x-ray show fracture s or acute findings. VITAL SIGNS Temperature: 97.2 F SBP/DBP: 136/62 Pulse: 73 Resp: 16 MEDICATION ALLERGIES: No Known Drug Allergies (NKDA) ENVIRONMENTAL ALLERGIES: None Known - Substance Allergies None Known - Other Allergies None Known NURSING: - Shower allowing shower - Bladder care per protocol - Skin care per protocol PRECAUTIONS: - Weight Bearing Precaution WBAT left LE ACTIVITIES OOB only with supervision THERAPIES: - Occupational Therapy Cognitive Retraining. Visual Perceptual Training. - Dietary and Nutrition Adequate Nutrition. Nutritional Education. Nutritional Supplements. - Speech Therapy Cognitive Training. Dysphagia Therapy. Expressive Language Skills. Memory Strategies. Receptive Langu age Skills. Speech Intelligibility Training. PHYSICAL EXAM - Gen Alert and awake Lying in bed No apparent distress Oriented to: person, time, and place - Skin No skin breakdown. Normacephalic - Eyes No abnormalities - ENMT No abnormalities - Neck No abnormalities - CVS RRR - Chest Mildly decreased breath sounds bilaterally. - Abd Soft - GI Non distended Deferred - No abnormalities - Ext Mild left lower extremity edema. - MSK 0-1+/5 weakness in left upper and lower extremity. - Neuro 0-1+/5 weakness in left upper and lower extremity. Marked left jorge-neglect. - Psych No abnormalities ASSESSMENT: Pt. is a 84 yo Right-handed white female.On 09/15/2019 Pt. presented to [facility] with sudden onset of left-side weakness.On 09/15/2019 she was admitted to [facility] with diagnosis Acute I schemic Right MCA Stroke.Her impairment category is Stroke 01 - Left Body (Right Brain) (01.1).Pre-m orbidly, Pt. was independent/mod-I in Locomotion, Safety Awareness, Balance, Social Cognition, Transf ers Control, Sphincter Control, Self-Care, Communication, and Endurance; and she had good Locomotion, Balance, Safety Awareness, Social Cognition, Transfers Control, Sphincter Control, Self-Care, Commun ication, and Endurance.Currently, she has deficits of Locomotion, Safety Awareness, Balance, Transfer s Control, Self-Care, Communication, and Endurance.Pt. is now referred to [facility] for acute in-patient rehabilitation in order to maximize patient's functional independence in activities of daily living, strength, ROM, and mobility.- Rehab Goal Patient has realistic goal of being discharged at assistance level 6-Hunter to reside at Home with Fam fernando/Relatives. MDM/PLAN: - Physical Therapy Gait dysfunction - to improve, our physical therapists will perform initial evaluation of pt's statu s upon admission and devise an individualized program for Gait Training, and Wheel Chair mobility Inability to transfer - to improve, our physical therapists will perform initial evaluation of pt's status upon admission and devise an individualized program for Bed mobility Need for home safety evaluation - to improve, our physical therapists will perform initial evaluatio n of pt's status upon admission and devise an individualized program for Home Evaluation Need in caregiver upon discharge - to improve, our physical therapists will perform initial evaluati on of pt's status upon admission and devise an individualized program for Caregiver Training New precaution - to improve, our physical therapists will perform initial evaluation of pt's status upon admission and devise an individualized program for Patient precaution education Poor balance - to improve, our physical therapists will perform initial evaluation of pt's status up on admission and devise an individualized program for Balance Training Poor endurance - to improve, our physical therapists will perform initial evaluation of pt's status upon admission and devise an individualized program for Endurance Training Weakness - to improve, our physical therapists will perform initial evaluation of pt's status upon a dmission and devise an individualized program for Aquatic Therapy, Neuromuscular Reeducation, and Str engthening Achieving independence - to improve, our physical therapists will perform initial evaluation of pt's status upon admission and devise an individualized program for Community Reintegration Activities - Occupational Therapy ADL deficits - to improve, our occupation therapists will perform initial evaluation of pt's status upon admission and devise an individualized program for Bathing, Bed mobility, Community Reintegratio n, Cooking, Dressing, Eating, Fine Motor Skills, Grooming, Homemaking, Kitchen Mobility, Laundry, Pat ient Education, Safety Awareness, Splinting - Positioning, Transfers(Toilet, Tub, Shower), and Wheel Chair Management Need for career services assistant - to improve, our occupation therapists will perform initial evaluation of pt's status upon admission and devise an individualized program for Caregiver Training Weakness - to improve, our occupation therapists will perform initial evaluation of pt's status upon admission and devise an individualized program for Aquatic Therapy, Balance, Endurance, UE ROM, and UE strengthening - Other See attached MAR (Medication Administration Record) See attached MAR (Medication Administration Record) Nai Ragland.pdf - Diet Type Continue Regular - Diet - Liquid Texture Continue Thin - Tube Feed Continue N/A - Bladder care per protocol - Weight Bearing Precaution WBAT left LE - Skin care per protocol - Diet - Solid Texture Continue Regular Continue Mechanical Soft - Shower allowing shower for Dementia, TBI, Stroke, or others FUNCTIONAL STATUS: UPDATED AT WEEKLY TEAM CONFERENCE - Bladder Same accident frequency: 7-Ind - No accidents in the past 7 days - Bowel Same accident frequency: 7-Ind - No accidents in the past 7 days - Walking Same score based on distance walked: 0(N/A) - Wheelchair Same score based on distance traveled: 0(N/A) FUNCTIONAL STATUS: - Self-Care A. Eating modA B. Grooming modA C. Bathing maxA D. Dressing - Upper modA E. Dressing - Lower maxA F. Toileting maxA - Sphincter Control G. Bladder control modA H. Bowel control modA - Transfers Control I. Bed/Chair/Wheelchair Dep J. Toilet Dep K. Tub/Shower Dep - Locomotion L. Walk/Wheelchair (B) Dep M. Stairs ADNO - Communication N. Comprehension (B) maxA O. Expression (B) modA - Social Cognition P. Social Interaction modA Q. Problem Solving maxA R. Memory modA - Endurance Fair - Balance Poor - Safety Awareness Poor QI SCORES: - Self-Care A. Eating 04-Supervision or touching assistance B. Oral hygiene 04-Supervision or touching assistance C. Toileting hygiene 02-Substantial/maximal assistance E. Shower/bathe self 02-Substantial/maximal assistance F. Upper body dressing 02-Substantial/maximal assistance G. Lower body dressing 01-Dependent H. Putting on/taking off footwear 01-Dependent - Mobility A. Roll left and right 02-Substantial/maximal assistance B. Sit to lying 02-Substantial/maximal assistance C. Lying to sitting on side of bed 02-Substantial/maximal assistance D. Sit to stand 02-Substantial/maximal assistance E. Chair/[id number] transfer 02-Substantial/maximal assistance F. Toilet transfer 02-Substantial/maximal assistance G. Car transfer 10-Not attempted due to environmental limitations I. Walk 10 feet 88-Not attempted due to medical condition or safety concerns J. Walk 50 feet with two turns 88-Not attempted due to medical condition or safety concerns K. Walk 150 feet 88-Not attempted due to medical condition or safety concerns L. Walking 10 feet on uneven surfaces 88-Not attempted due to medical condition or safety concerns M. 1 step (curb) 88-Not attempted due to medical condition or safety concerns N. 4 steps 88-Not attempted due to medical condition or safety concerns O. 12 steps 88-Not attempted due to medical condition or safety concerns P. Picking up object 88-Not attempted due to medical condition or safety concerns R. Wheel 50 feet with two turns 88-Not attempted due to medical condition or safety concerns S. Wheel 150 feet 88-Not attempted due to medical condition or safety concerns - Bladder and Bowel Bladder continence 0-Always continent Bowel continence 0-Always continent - Endurance Poor - Balance Poor - Safety Awareness Poor CURRENT FUNC. DEFICITS: Self-Care, Mobility, Endurance, Balance, and Safety Awareness SIGNATURE PANEL: (ASSISTANT SECRETARY)
[2019-10-06] MEDS: ATORVASTATIN 80 MG TAB PO SCH (20:30)
[2019-10-06] MEDS: ONDANSETRON 4 MG (ODT) TAB PO PRN (20:30)
[2019-10-06] MEDS: TAMSULOSIN 0.4 MG SR CAP PO SCH (20:31)
[2019-10-07] MEDS: LABETALOL HCL 100 MG TAB PO SCH ×3 (05:06→20:05)
[2019-10-07] MEDS: ASPIRIN EC 81 MG TAB PO SCH (07:47)
[2019-10-07] MEDS: TRAMADOL HCL 50 MG TAB PO PRN ×2 (07:47→19:34)
[2019-10-07] MEDS: PANTOPRAZOLE 40MG TABLET PO SCH (07:47)
[2019-10-07] MEDS: APIXABAN 5 MG TABLET PO SCH ×2 (07:47→19:34)
[2019-10-07] MEDS: CLOPIDOGREL 75 MG TABLET PO SCH (07:47)
[2019-10-07] MEDS: LIDOCAINE 4% PATCH TOP SCH (07:48)
[2019-10-07] MEDS: FLUTICASONE 250 MCG IH SCH ×2 (07:48→19:36)
[2019-10-07] MEDS: SALMETEROL 50 MCG IH SCH ×2 (07:48→19:36)
[2019-10-07] MEDS: ENSURE HIGH PROTEIN 237 ML CAN PO SCH ×2 (07:48→19:37)
[2019-10-07] MEDS: VALSARTAN 160 MG TAB PO SCH (07:48)
[2019-10-07] MEDS: PROMOD 30 ML DOSE PO SCH ×2 (07:48→19:37)
--- NOTE | 2019-10-07 17:33 | R.PN ---
ENCOUNTER DATE AND TIME: 10/07/2019 17:28 (EYEWEAR CONSULTANT) NAME NAI RAGLAND DATE OF : 1935 DATE OF ADMISSION: 09/27/2019 12:34 (EYEWEAR CONSULTANT) Acute Ischemic Right MCA StrokeCHIEF COMPLAINT: Dense left face, arm and leg weakness, dysarthria and dysphagia SUBJECTIVE: Pt denied any depression. Pt denied any Shortness of Breath. She denies pain, admits to mild difficulty swallowing. Marked left sided weakness 0/5 in the arm, 1-2 /5 in the left leg with significant left sided neglect. She has a modified barium study scheduled. Ma x to total assistance needed to bed mobility, transfers and standing in the parallel bars. Labs reviewed and are stable. WBC 5.9, Hgb 11.8. Prealbumin improved to 18.8. She is on promod 30 ml bid. UA shows positive nitrite, 3+ esterase, loaded WBC, 3+ blood and >50 bacteria. Cultures grew >10 0,000 CFU of 4+ gram negative rods, enterobacter cloacae sensitive to levofloxacin and resistant to B actrim Ds started on 09/28/19. Bactrim is D/Blane. Left hip x-ray show mild for age joint degeneration and no acute findings. Pelvic x-ray show fracture s or acute findings. She is working well with speech therapy. Ambulated 250 feet and 500 feet with standby assistance using a rolling walker. VITAL SIGNS Temperature: 97.8 F SBP/DBP: 122/60 Pulse: 82 Resp: 16 MEDICATION ALLERGIES: No Known Drug Allergies (NKDA) ENVIRONMENTAL ALLERGIES: None Known - Substance Allergies None Known - Other Allergies None Known NURSING: - Shower allowing shower - Bladder care per protocol - Skin care per protocol PRECAUTIONS: - Weight Bearing Precaution WBAT left LE ACTIVITIES OOB only with supervision THERAPIES: - Occupational Therapy Cognitive Retraining. Visual Perceptual Training. - Dietary and Nutrition Adequate Nutrition. Nutritional Education. Nutritional Supplements. - Speech Therapy Cognitive Training. Dysphagia Therapy. Expressive Language Skills. Memory Strategies. Receptive Langu age Skills. Speech Intelligibility Training. PHYSICAL EXAM - Gen Alert and awake Lying in bed No apparent distress Oriented to: person, time, and place - Skin No skin breakdown. Normacephalic - Eyes No abnormalities - ENMT No abnormalities - Neck No abnormalities - CVS RRR - Chest Mildly decreased breath sounds bilaterally. - Abd Soft - GI Non distended Deferred - No abnormalities - Ext Mild left lower extremity edema. - MSK 0-1+/5 weakness in left upper and lower extremity. - Neuro 0-1+/5 weakness in left upper and lower extremity. Marked left jorge-neglect. - Psych No abnormalities ASSESSMENT: Pt. is a 84 yo Right-handed white female.On 09/15/2019 Pt. presented to [facility] with sudden onset of left-side weakness.On 09/15/2019 she was admitted to [facility] with diagnosis Acute I schemic Right MCA Stroke.Her impairment category is Stroke 01 - Left Body (Right Brain) (01.1).Pre-m orbidly, Pt. was independent/mod-I in Locomotion, Safety Awareness, Balance, Social Cognition, Transf ers Control, Sphincter Control, Self-Care, Communication, and Endurance; and she had good Locomotion, Balance, Safety Awareness, Social Cognition, Transfers Control, Sphincter Control, Self-Care, Commun ication, and Endurance.Currently, she has deficits of Locomotion, Safety Awareness, Balance, Transfer s Control, Self-Care, Communication, and Endurance.Pt. is now referred to [facility] for acute in-patient rehabilitation in order to maximize patient's functional independence in activities of daily living, strength, ROM, and mobility.- Rehab Goal Patient has realistic goal of being discharged at assistance level 6-Hunter to reside at Home with Fam fernando/Relatives. MDM/PLAN: - Physical Therapy Gait dysfunction - to improve, our physical therapists will perform initial evaluation of pt's statu s upon admission and devise an individualized program for Gait Training, and Wheel Chair mobility Inability to transfer - to improve, our physical therapists will perform initial evaluation of pt's status upon admission and devise an individualized program for Bed mobility Need for home safety evaluation - to improve, our physical therapists will perform initial evaluatio n of pt's status upon admission and devise an individualized program for Home Evaluation Need in caregiver upon discharge - to improve, our physical therapists will perform initial evaluati on of pt's status upon admission and devise an individualized program for Caregiver Training New precaution - to improve, our physical therapists will perform initial evaluation of pt's status upon admission and devise an individualized program for Patient precaution education Poor balance - to improve, our physical therapists will perform initial evaluation of pt's status up on admission and devise an individualized program for Balance Training Poor endurance - to improve, our physical therapists will perform initial evaluation of pt's status upon admission and devise an individualized program for Endurance Training Weakness - to improve, our physical therapists will perform initial evaluation of pt's status upon a dmission and devise an individualized program for Aquatic Therapy, Neuromuscular Reeducation, and Str engthening Achieving independence - to improve, our physical therapists will perform initial evaluation of pt's status upon admission and devise an individualized program for Community Reintegration Activities - Occupational Therapy ADL deficits - to improve, our occupation therapists will perform initial evaluation of pt's status upon admission and devise an individualized program for Bathing, Bed mobility, Community Reintegratio n, Cooking, Dressing, Eating, Fine Motor Skills, Grooming, Homemaking, Kitchen Mobility, Laundry, Pat ient Education, Safety Awareness, Splinting - Positioning, Transfers(Toilet, Tub, Shower), and Wheel Chair Management Need for patient care manager - to improve, our occupation therapists will perform initial evaluation of pt's status upon admission and devise an individualized program for Caregiver Training Weakness - to improve, our occupation therapists will perform initial evaluation of pt's status upon admission and devise an individualized program for Aquatic Therapy, Balance, Endurance, UE ROM, and UE strengthening - Other See attached MAR (Medication Administration Record) See attached MAR (Medication Administration Record) Nai Ragland.pdf - Diet Type Continue Regular - Diet - Liquid Texture Continue Thin - Tube Feed Continue N/A - Bladder care per protocol - Weight Bearing Precaution WBAT left LE - Skin care per protocol - Diet - Solid Texture Continue Regular Continue Mechanical Soft - Shower allowing shower for Dementia, TBI, Stroke, or others FUNCTIONAL STATUS: UPDATED AT WEEKLY TEAM CONFERENCE - Bladder Same accident frequency: 7-Ind - No accidents in the past 7 days - Bowel Same accident frequency: 7-Ind - No accidents in the past 7 days - Walking Same score based on distance walked: 0(N/A) - Wheelchair Same score based on distance traveled: 0(N/A) FUNCTIONAL STATUS: - Self-Care A. Eating modA B. Grooming modA C. Bathing maxA D. Dressing - Upper modA E. Dressing - Lower maxA F. Toileting maxA - Sphincter Control G. Bladder control modA H. Bowel control modA - Transfers Control I. Bed/Chair/Wheelchair Dep J. Toilet Dep K. Tub/Shower Dep - Locomotion L. Walk/Wheelchair (B) Dep M. Stairs ADNO - Communication N. Comprehension (B) maxA O. Expression (B) modA - Social Cognition P. Social Interaction modA Q. Problem Solving maxA R. Memory modA - Endurance Fair - Balance Poor - Safety Awareness Poor QI SCORES: - Self-Care A. Eating 04-Supervision or touching assistance B. Oral hygiene 04-Supervision or touching assistance C. Toileting hygiene 02-Substantial/maximal assistance E. Shower/bathe self 02-Substantial/maximal assistance F. Upper body dressing 02-Substantial/maximal assistance G. Lower body dressing 01-Dependent H. Putting on/taking off footwear 01-Dependent - Mobility A. Roll left and right 02-Substantial/maximal assistance B. Sit to lying 02-Substantial/maximal assistance C. Lying to sitting on side of bed 02-Substantial/maximal assistance D. Sit to stand 02-Substantial/maximal assistance E. Chair/[id number] transfer 02-Substantial/maximal assistance F. Toilet transfer 02-Substantial/maximal assistance G. Car transfer 10-Not attempted due to environmental limitations I. Walk 10 feet 88-Not attempted due to medical condition or safety concerns J. Walk 50 feet with two turns 88-Not attempted due to medical condition or safety concerns K. Walk 150 feet 88-Not attempted due to medical condition or safety concerns L. Walking 10 feet on uneven surfaces 88-Not attempted due to medical condition or safety concerns M. 1 step (curb) 88-Not attempted due to medical condition or safety concerns N. 4 steps 88-Not attempted due to medical condition or safety concerns O. 12 steps 88-Not attempted due to medical condition or safety concerns P. Picking up object 88-Not attempted due to medical condition or safety concerns R. Wheel 50 feet with two turns 88-Not attempted due to medical condition or safety concerns S. Wheel 150 feet 88-Not attempted due to medical condition or safety concerns - Bladder and Bowel Bladder continence 0-Always continent Bowel continence 0-Always continent - Endurance Poor - Balance Poor - Safety Awareness Poor CURRENT FUNC. DEFICITS: Self-Care, Mobility, Endurance, Balance, and Safety Awareness SIGNATURE PANEL: (EYEWEAR CONSULTANT)
[2019-10-07] MEDS: ATORVASTATIN 80 MG TAB PO SCH (19:34)
[2019-10-07] MEDS: ONDANSETRON 4 MG (ODT) TAB PO PRN (19:34)
[2019-10-07] MEDS: TAMSULOSIN 0.4 MG SR CAP PO SCH (19:34)
[2019-10-08] MEDS: LABETALOL HCL 100 MG TAB PO SCH ×3 (05:22→21:41)
[2019-10-08] MEDS: HYDROCODONE/APAP 5/325 MG TAB PO PRN ×2 (07:49→17:14)
[2019-10-08] MEDS: VALSARTAN 160 MG TAB PO SCH (07:50)
[2019-10-08] MEDS: PANTOPRAZOLE 40MG TABLET PO SCH (07:50)
[2019-10-08] MEDS: SALMETEROL 50 MCG IH SCH ×2 (07:50→20:19)
[2019-10-08] MEDS: LIDOCAINE 4% PATCH TOP SCH (07:50)
[2019-10-08] MEDS: CLOPIDOGREL 75 MG TABLET PO SCH (07:50)
[2019-10-08] MEDS: APIXABAN 5 MG TABLET PO SCH ×2 (07:50→20:19)
[2019-10-08] MEDS: FLUTICASONE 250 MCG IH SCH ×2 (07:50→20:19)
[2019-10-08] MEDS: ASPIRIN EC 81 MG TAB PO SCH (07:50)
[2019-10-08] MEDS: PROMOD 30 ML DOSE PO SCH ×2 (07:51→20:00)
[2019-10-08] MEDS: ENSURE HIGH PROTEIN 237 ML CAN PO SCH ×2 (07:51→20:00)
--- NOTE | 2019-10-08 17:55 | R.PN ---
ENCOUNTER DATE AND TIME: 10/08/2019 17:49 (GRAPHIC SPECIALIST) NAME NAI RAGLAND DATE OF : 1935 DATE OF ADMISSION: 09/27/2019 12:34 (GRAPHIC SPECIALIST) Acute Ischemic Right MCA StrokeCHIEF COMPLAINT: Dense left face, arm and leg weakness, dysarthria and dysphagia SUBJECTIVE: Pt denied any depression. Pt denied any Shortness of Breath. She denies pain, admits to mild difficulty swallowing. Marked left sided weakness 0/5 in the arm, 1-2 /5 in the left leg with significant left sided neglect. She has a modified barium study scheduled. Ma x to total assistance needed to bed mobility, transfers and standing in the parallel bars. Labs reviewed and are stable. WBC 5.9, Hgb 11.8. Prealbumin improved to 18.8. She is on promod 30 ml bid. UA shows positive nitrite, 3+ esterase, loaded WBC, 3+ blood and >50 bacteria. Cultures grew >10 0,000 CFU of 4+ gram negative rods, enterobacter cloacae sensitive to levofloxacin and resistant to B actrim Ds started on 09/28/19. Bactrim is D/Blane. Left hip x-ray show mild for age joint degeneration and no acute findings. Pelvic x-ray show fracture s or acute findings. She is working well with speech therapy. Ambulated 250 feet with standby assistance using a rolling walker. VITAL SIGNS Temperature: 99.6 F SBP/DBP: 101/49 Pulse: 79 Resp: 18 MEDICATION ALLERGIES: No Known Drug Allergies (NKDA) ENVIRONMENTAL ALLERGIES: None Known - Substance Allergies None Known - Other Allergies None Known NURSING: - Shower allowing shower - Bladder care per protocol - Skin care per protocol PRECAUTIONS: - Weight Bearing Precaution WBAT left LE ACTIVITIES OOB only with supervision THERAPIES: - Occupational Therapy Cognitive Retraining. Visual Perceptual Training. - Dietary and Nutrition Adequate Nutrition. Nutritional Education. Nutritional Supplements. - Speech Therapy Cognitive Training. Dysphagia Therapy. Expressive Language Skills. Memory Strategies. Receptive Langu age Skills. Speech Intelligibility Training. PHYSICAL EXAM - Gen Alert and awake Lying in bed No apparent distress Oriented to: person, time, and place - Skin No skin breakdown. Normacephalic - Eyes No abnormalities - ENMT No abnormalities - Neck No abnormalities - CVS RRR - Chest Mildly decreased breath sounds bilaterally. - Abd Soft - GI Non distended Deferred - No abnormalities - Ext Mild left lower extremity edema. - MSK 0-1+/5 weakness in left upper and lower extremity. - Neuro 0-1+/5 weakness in left upper and lower extremity. Marked left jorge-neglect. - Psych No abnormalities ASSESSMENT: Pt. is a 84 yo Right-handed white female.On 09/15/2019 Pt. presented to [facility] with sudden onset of left-side weakness.On 09/15/2019 she was admitted to [facility] with diagnosis Acute I schemic Right MCA Stroke.Her impairment category is Stroke 01 - Left Body (Right Brain) (01.1).Pre-m orbidly, Pt. was independent/mod-I in Locomotion, Safety Awareness, Balance, Social Cognition, Transf ers Control, Sphincter Control, Self-Care, Communication, and Endurance; and she had good Locomotion, Balance, Safety Awareness, Social Cognition, Transfers Control, Sphincter Control, Self-Care, Commun ication, and Endurance.Currently, she has deficits of Locomotion, Safety Awareness, Balance, Transfer s Control, Self-Care, Communication, and Endurance.Pt. is now referred to [facility] for acute in-patient rehabilitation in order to maximize patient's functional independence in activities of daily living, strength, ROM, and mobility.- Rehab Goal Patient has realistic goal of being discharged at assistance level 6-Hunter to reside at Home with Fam fernando/Relatives. MDM/PLAN: - Physical Therapy Gait dysfunction - to improve, our physical therapists will perform initial evaluation of pt's statu s upon admission and devise an individualized program for Gait Training, and Wheel Chair mobility Inability to transfer - to improve, our physical therapists will perform initial evaluation of pt's status upon admission and devise an individualized program for Bed mobility Need for home safety evaluation - to improve, our physical therapists will perform initial evaluatio n of pt's status upon admission and devise an individualized program for Home Evaluation Need in caregiver upon discharge - to improve, our physical therapists will perform initial evaluati on of pt's status upon admission and devise an individualized program for Caregiver Training New precaution - to improve, our physical therapists will perform initial evaluation of pt's status upon admission and devise an individualized program for Patient precaution education Poor balance - to improve, our physical therapists will perform initial evaluation of pt's status up on admission and devise an individualized program for Balance Training Poor endurance - to improve, our physical therapists will perform initial evaluation of pt's status upon admission and devise an individualized program for Endurance Training Weakness - to improve, our physical therapists will perform initial evaluation of pt's status upon a dmission and devise an individualized program for Aquatic Therapy, Neuromuscular Reeducation, and Str engthening Achieving independence - to improve, our physical therapists will perform initial evaluation of pt's status upon admission and devise an individualized program for Community Reintegration Activities - Occupational Therapy ADL deficits - to improve, our occupation therapists will perform initial evaluation of pt's status upon admission and devise an individualized program for Bathing, Bed mobility, Community Reintegratio n, Cooking, Dressing, Eating, Fine Motor Skills, Grooming, Homemaking, Kitchen Mobility, Laundry, Pat ient Education, Safety Awareness, Splinting - Positioning, Transfers(Toilet, Tub, Shower), and Wheel Chair Management Need for clinical manager home care - to improve, our occupation therapists will perform initial evaluation of pt's status upon admission and devise an individualized program for Caregiver Training Weakness - to improve, our occupation therapists will perform initial evaluation of pt's status upon admission and devise an individualized program for Aquatic Therapy, Balance, Endurance, UE ROM, and UE strengthening - Other See attached MAR (Medication Administration Record) See attached MAR (Medication Administration Record) Nai aRgland.pdf - Diet Type Continue Regular - Diet - Liquid Texture Continue Thin - Tube Feed Continue N/A - Bladder care per protocol - Weight Bearing Precaution WBAT left LE - Skin care per protocol - Diet - Solid Texture Continue Regular Continue Mechanical Soft - Shower allowing shower for Dementia, TBI, Stroke, or others FUNCTIONAL STATUS: UPDATED AT WEEKLY TEAM CONFERENCE - Bladder Same accident frequency: 7-Ind - No accidents in the past 7 days - Bowel Same accident frequency: 7-Ind - No accidents in the past 7 days - Walking Same score based on distance walked: 0(N/A) - Wheelchair Same score based on distance traveled: 0(N/A) FUNCTIONAL STATUS: - Self-Care A. Eating modA B. Grooming modA C. Bathing maxA D. Dressing - Upper modA E. Dressing - Lower maxA F. Toileting maxA - Sphincter Control G. Bladder control modA H. Bowel control modA - Transfers Control I. Bed/Chair/Wheelchair Dep J. Toilet Dep K. Tub/Shower Dep - Locomotion L. Walk/Wheelchair (B) Dep M. Stairs ADNO - Communication N. Comprehension (B) maxA O. Expression (B) modA - Social Cognition P. Social Interaction modA Q. Problem Solving maxA R. Memory modA - Endurance Fair - Balance Poor - Safety Awareness Poor QI SCORES: - Self-Care A. Eating 04-Supervision or touching assistance B. Oral hygiene 04-Supervision or touching assistance C. Toileting hygiene 02-Substantial/maximal assistance E. Shower/bathe self 02-Substantial/maximal assistance F. Upper body dressing 02-Substantial/maximal assistance G. Lower body dressing 01-Dependent H. Putting on/taking off footwear 01-Dependent - Mobility A. Roll left and right 02-Substantial/maximal assistance B. Sit to lying 02-Substantial/maximal assistance C. Lying to sitting on side of bed 02-Substantial/maximal assistance D. Sit to stand 02-Substantial/maximal assistance E. Chair/[id number] transfer 02-Substantial/maximal assistance F. Toilet transfer 02-Substantial/maximal assistance G. Car transfer 10-Not attempted due to environmental limitations I. Walk 10 feet 88-Not attempted due to medical condition or safety concerns J. Walk 50 feet with two turns 88-Not attempted due to medical condition or safety concerns K. Walk 150 feet 88-Not attempted due to medical condition or safety concerns L. Walking 10 feet on uneven surfaces 88-Not attempted due to medical condition or safety concerns M. 1 step (curb) 88-Not attempted due to medical condition or safety concerns N. 4 steps 88-Not attempted due to medical condition or safety concerns O. 12 steps 88-Not attempted due to medical condition or safety concerns P. Picking up object 88-Not attempted due to medical condition or safety concerns R. Wheel 50 feet with two turns 88-Not attempted due to medical condition or safety concerns S. Wheel 150 feet 88-Not attempted due to medical condition or safety concerns - Bladder and Bowel Bladder continence 0-Always continent Bowel continence 0-Always continent - Endurance Poor - Balance Poor - Safety Awareness Poor CURRENT FUNC. DEFICITS: Self-Care, Mobility, Endurance, Balance, and Safety Awareness SIGNATURE PANEL: (GRAPHIC SPECIALIST)
[2019-10-08] MEDS: ATORVASTATIN 80 MG TAB PO SCH (20:19)
[2019-10-08] MEDS: TAMSULOSIN 0.4 MG SR CAP PO SCH (20:19)
[2019-10-09] MEDS: LABETALOL HCL 100 MG TAB PO SCH ×3 (05:17→22:00)
[2019-10-09 06:28] LABS: Absolute Lymphocytes (CBC) 1.3 K/uL (0.7-4.9); Basophils % 0.3 % (0-1.3); Hematocrit 30.3 % (36.0-45.0); Lymphocytes % 17.8 % (15.3-44.8); MPV 9.1 fL (7.6-11.3); RBC Red Blood Cell Count 3.13 M/uL (3.86-4.86)
[2019-10-09 06:42] LABS: Albumin 2.3 g/dL (3.4-5.0); Potassium 3.5 mmol/L (3.5-5.1); Prealbumin 12.8 mg/dL (20-40)
[2019-10-09 06:48] LABS: Magnesium 1.3 mg/dL (1.8-2.4)
[2019-10-09] MEDS: MAGNESIUM OXIDE 400 MG TAB PO SCH ×2 (08:00→19:56)
[2019-10-09] MEDS: SALMETEROL 50 MCG IH SCH ×2 (08:00→19:57)
[2019-10-09] MEDS: PROMOD 30 ML DOSE PO SCH ×2 (08:00→19:57)
[2019-10-09] MEDS: FLUTICASONE 250 MCG IH SCH ×2 (08:00→19:57)
[2019-10-09] MEDS: ENSURE HIGH PROTEIN 237 ML CAN PO SCH ×2 (08:00→19:57)
[2019-10-09] MEDS: PANTOPRAZOLE 40MG TABLET PO SCH (08:15)
[2019-10-09] MEDS: CLOPIDOGREL 75 MG TABLET PO SCH (08:16)
[2019-10-09] MEDS: APIXABAN 5 MG TABLET PO SCH ×2 (08:16→19:56)
[2019-10-09] MEDS: ASPIRIN EC 81 MG TAB PO SCH (08:16)
[2019-10-09] MEDS: VALSARTAN 160 MG TAB PO SCH (08:16)
[2019-10-09] MEDS: HYDROCODONE/APAP 5/325 MG TAB PO PRN (08:16)
[2019-10-09] MEDS: LIDOCAINE 4% PATCH TOP SCH (08:18)
--- NOTE | 2019-10-09 15:15 | FAST ---
ENCOUNTER DATE AND TIME: 10/09/2019 08:00 (MOLD LAMINATOR) NAME JOSE DE LOS SANTOS DATE OF : 1935 DATE OF ADMISSION: 09/27/2019 12:34 (MOLD LAMINATOR) PHONE: AGE: 84 N# [id number] GENDER: Female ENCOUNTER PHYSICIAN: Dr. Elvis Munoz M.D. ADMISSION DIAGNOSIS: - Stroke 01 - Left Body (Right Brain) (01.1) Acute Ischemic Right MCA Stroke. ROLL LEFT AND RIGHT: ROLL LEFT AND RIGHT - STEP 1: Does the patient complete the activity by him/herself with no assistance (physical, verbal/nonverbal cueing, setup/clean-up)? No. ROLL LEFT AND RIGHT - STEP 2: Does the patient need only setup/clean-up assistance from one helper? No. ROLL LEFT AND RIGHT - STEP 3: Does the patient need only verbal/nonverbal cueing or touching/steadying/contact guard assistance fro m one helper? No. ROLL LEFT AND RIGHT - STEP 4: Does the patient need physical assistance - for example lifting or trunk support from one helper - wi th the helper providing less than half of the effort? No. ROLL LEFT AND RIGHT - STEP 5: Does the patient need physical assistance - for example lifting or trunk support from one helper - wi th the helper providing more than half of the effort? No. ROLL LEFT AND RIGHT - STEP 6: Does the helper provide all of the effort? OR Is the assistance of two or more helpers required to co mplete the activity? Yes. 1. [id number] ADMISSION PERFORMANCE: Dependent CODE: 01 SIT TO LYING: SIT TO LYING - STEP 1: Does the patient complete the activity by him/herself with no assistance (physical, verbal/nonverbal cueing, setup/clean-up)? No. SIT TO LYING - STEP 2: Does the patient need only setup/clean-up assistance from one helper? No. SIT TO LYING - STEP 3: Does the patient need only verbal/nonverbal cueing or touching/steadying/contact guard assistance fro m one helper? No. SIT TO LYING - STEP 4: Does the patient need physical assistance - for example lifting or trunk support from one helper - wi th the helper providing less than half of the effort? No. SIT TO LYING - STEP 5: Does the patient need physical assistance - for example lifting or trunk support from one helper - wi th the helper providing more than half of the effort? No. SIT TO LYING - STEP 6: Does the helper provide all of the effort? OR Is the assistance of two or more helpers required to co mplete the activity? Yes. 1. [id number] ADMISSION PERFORMANCE: Dependent CODE: 01 LYING TO SITTING: LYING TO SITTING ON SIDE OF BED - STEP 1: Does the patient complete the activity by him/herself with no assistance (physical, verbal/nonverbal cueing, setup/clean-up)? No. LYING TO SITTING ON SIDE OF BED - STEP 2: Does the patient need only setup/clean-up assistance from one helper? No. LYING TO SITTING ON SIDE OF BED - STEP 3: Does the patient need only verbal/nonverbal cueing or touching/steadying/contact guard assistance fro m one helper? No. LYING TO SITTING ON SIDE OF BED - STEP 4: Does the patient need physical assistance - for example lifting or trunk support from one helper - wi th the helper providing less than half of the effort? No. LYING TO SITTING ON SIDE OF BED - STEP 5: Does the patient need physical assistance - for example lifting or trunk support from one helper - wi th the helper providing more than half of the effort? No. LYING TO SITTING ON SIDE OF BED - STEP 6: Does the helper provide all of the effort? OR Is the assistance of two or more helpers required to co mplete the activity? Yes. 1. [id number] ADMISSION PERFORMANCE: Dependent CODE: 01 SIT TO STAND: SIT TO STAND - STEP 1: Does the patient complete the activity by him/herself with no assistance (physical, verbal/nonverbal cueing, setup/clean-up)? No. SIT TO STAND - STEP 2: Does the patient need only setup/clean-up assistance from one helper? No. SIT TO STAND - STEP 3: Does the patient need only verbal/nonverbal cueing or touching/steadying/contact guard assistance fro m one helper? No. SIT TO STAND - STEP 4: Does the patient need physical assistance - for example lifting or trunk support from one helper - wi th the helper providing less than half of the effort? No. SIT TO STAND - STEP 5: Does the patient need physical assistance - for example lifting or trunk support from one helper - wi th the helper providing more than half of the effort? No. SIT TO STAND - STEP 6: Does the helper provide all of the effort? OR Is the assistance of two or more helpers required to co mplete the activity? Yes. 1. [id number] ADMISSION PERFORMANCE: Dependent CODE: 01 TRANSFERS: BED, CHAIR: CHAIR/[id number] TRANSFER - STEP 1: Does the patient complete the activity by him/herself with no assistance (physical, verbal/nonverbal cueing, setup/clean-up)? No. CHAIR/[id number] TRANSFER - STEP 2: Does the patient need only setup/clean-up assistance from one helper? No. CHAIR/[id number] TRANSFER - STEP 3: Does the patient need only verbal/nonverbal cueing or touching/steadying/contact guard assistance fro m one helper? No. CHAIR/[id number] TRANSFER - STEP 4: Does the patient need physical assistance - for example lifting or trunk support from one helper - wi th the helper providing less than half of the effort? No. CHAIR/[id number] TRANSFER - STEP 5: Does the patient need physical assistance - for example lifting or trunk support from one helper - wi th the helper providing more than half of the effort? No. CHAIR/[id number] TRANSFER - STEP 6: Does the helper provide all of the effort? OR Is the assistance of two or more helpers required to co mplete the activity? Yes. 1. [id number] ADMISSION PERFORMANCE: Dependent CODE: 01 TRANSFER TOILET: TOILET TRANSFER - STEP 1: Does the patient complete the activity by him/herself with no assistance (physical, verbal/nonverbal cueing, setup/clean-up)? No. TOILET TRANSFER - STEP 2: Does the patient need only setup/clean-up assistance from one helper? No. TOILET TRANSFER - STEP 3: Does the patient need only verbal/nonverbal cueing or touching/steadying/contact guard assistance fro m one helper? No. TOILET TRANSFER - STEP 4: Does the patient need physical assistance - for example lifting or trunk support from one helper - wi th the helper providing less than half of the effort? No. TOILET TRANSFER - STEP 5: Does the patient need physical assistance - for example lifting or trunk support from one helper - wi th the helper providing more than half of the effort? No. TOILET TRANSFER - STEP 6: Does the helper provide all of the effort? OR Is the assistance of two or more helpers required to co mplete the activity? Yes. 1. [id number] ADMISSION PERFORMANCE: Dependent CODE: 01 TRANSFERS: CAR: Not attempted due to medical condition or safety concerns CODE: 88 WALK 10 FEET: Not attempted due to medical condition or safety concerns CODE: 88 1 STEP (CURB): Not attempted due to medical condition or safety concerns CODE: 88 PICKING UP OBJECT: Not attempted due to medical condition or safety concerns CODE: 88 DOES THE PATIENT USE A WHEELCHAIR/SCOOTER? Q1. DOES THE PATIENT USE A WHEELCHAIR/SCOOTER?: No CODE: 0 INDICATE THE TYPE OF WHEELCHAIR/SCOOTER USED: CODE: EXPR INDICATE THE TYPE OF WHEELCHAIR/SCOOTER USED: CODE: EXPR BLADDER AND BOWEL: CODE: EXPR CODE: EXPR SIGNATURE PANEL: The following modified sections: 1. [id number] Admission Performance, 1. [id number] Admission Performance, 1. [id number] Admission Performance, 1. [id number] Admission Performance, 1. [id number] Admission Performance, 1. [id number] Admission Performance, Q1. Does the patient use a wheelchair/scooter? were [electronicall y] signed by Tyrel Sterling PTA on SunOct 09 2019 15:14:53 GMT-0600 (Central Standard Time)
[2019-10-09] MEDS: TRAMADOL HCL 50 MG TAB PO PRN (19:51)
[2019-10-09] MEDS: TAMSULOSIN 0.4 MG SR CAP PO SCH (19:56)
[2019-10-09] MEDS: DOCUSATE NA/SENNA CONC 1 TAB PO PRN (19:56)
[2019-10-09] MEDS: ATORVASTATIN 80 MG TAB PO SCH (19:56)
--- NOTE | 2019-10-09 20:18 | R.PN ---
ENCOUNTER DATE AND TIME: 10/09/2019 20:13 (GIS WEB DEVELOPER) NAME NAI RAGLAND DATE OF : 1935 DATE OF ADMISSION: 09/27/2019 12:34 (GIS WEB DEVELOPER) Acute Ischemic Right MCA StrokeCHIEF COMPLAINT: Dense left face, arm and leg weakness, dysarthria and dysphagia SUBJECTIVE: Pt denied any depression. Pt denied any Shortness of Breath. She denies pain, admits to mild difficulty swallowing. Marked left sided weakness 0/5 in the arm, 1-2 /5 in the left leg with significant left sided neglect. She has a modified barium study scheduled. Ma x to total assistance needed to bed mobility, transfers and standing in the parallel bars. Labs reviewed and are stable. WBC 7.6, Hgb 10.3. Magnesium 1.3. Now on magnesium oxide 400 mg twice d aily. Prealbumin improved to 12.8. She is on promod 30 ml bid. UA shows positive nitrite, 3+ esteras e, loaded WBC, 3+ blood and >50 bacteria. Cultures grew >100,000 CFU of 4+ gram negative rods, entero bacter cloacae sensitive to levofloxacin and resistant to Bactrim Ds started on 09/28/19. Bactrim is D /Blane. Left hip x-ray show mild for age joint degeneration and no acute findings. Pelvic x-ray show fracture s or acute findings. She is working well with speech therapy. Ambulated 250 feet with standby assistance using a rolling walker. VITAL SIGNS Temperature: 97.9 F SBP/DBP: 113/40 Pulse: 80 Resp: 18 MEDICATION ALLERGIES: No Known Drug Allergies (NKDA) ENVIRONMENTAL ALLERGIES: None Known - Substance Allergies None Known - Other Allergies None Known NURSING: - Shower allowing shower - Bladder care per protocol - Skin care per protocol PRECAUTIONS: - Weight Bearing Precaution WBAT left LE ACTIVITIES OOB only with supervision THERAPIES: - Occupational Therapy Cognitive Retraining. Visual Perceptual Training. - Dietary and Nutrition Adequate Nutrition. Nutritional Education. Nutritional Supplements. - Speech Therapy Cognitive Training. Dysphagia Therapy. Expressive Language Skills. Memory Strategies. Receptive Langu age Skills. Speech Intelligibility Training. PHYSICAL EXAM - Gen Alert and awake Lying in bed No apparent distress Oriented to: person, time, and place - Skin No skin breakdown. Normacephalic - Eyes No abnormalities - ENMT No abnormalities - Neck No abnormalities - CVS RRR - Chest Mildly decreased breath sounds bilaterally. - Abd Soft - GI Non distended Deferred - No abnormalities - Ext Mild left lower extremity edema. - MSK 0-1+/5 weakness in left upper and lower extremity. - Neuro 0-1+/5 weakness in left upper and lower extremity. Marked left jorge-neglect. - Psych No abnormalities ASSESSMENT: Pt. is a 84 yo Right-handed white female.On 09/15/2019 Pt. presented to [facility] with sudden onset of left-side weakness.On 09/15/2019 she was admitted to [facility] with diagnosis Acute I schemic Right MCA Stroke.Her impairment category is Stroke 01 - Left Body (Right Brain) (01.1).Pre-m orbidly, Pt. was independent/mod-I in Locomotion, Safety Awareness, Balance, Social Cognition, Transf ers Control, Sphincter Control, Self-Care, Communication, and Endurance; and she had good Locomotion, Balance, Safety Awareness, Social Cognition, Transfers Control, Sphincter Control, Self-Care, Commun ication, and Endurance.Currently, she has deficits of Locomotion, Safety Awareness, Balance, Transfer s Control, Self-Care, Communication, and Endurance.Pt. is now referred to [facility] for acute in-patient rehabilitation in order to maximize patient's functional independence in activities of daily living, strength, ROM, and mobility.- Rehab Goal Patient has realistic goal of being discharged at assistance level 6-Hunter to reside at Home with Fam fernando/Relatives. MDM/PLAN: - Physical Therapy Gait dysfunction - to improve, our physical therapists will perform initial evaluation of pt's statu s upon admission and devise an individualized program for Gait Training, and Wheel Chair mobility Inability to transfer - to improve, our physical therapists will perform initial evaluation of pt's status upon admission and devise an individualized program for Bed mobility Need for home safety evaluation - to improve, our physical therapists will perform initial evaluatio n of pt's status upon admission and devise an individualized program for Home Evaluation Need in caregiver upon discharge - to improve, our physical therapists will perform initial evaluati on of pt's status upon admission and devise an individualized program for Caregiver Training New precaution - to improve, our physical therapists will perform initial evaluation of pt's status upon admission and devise an individualized program for Patient precaution education Poor balance - to improve, our physical therapists will perform initial evaluation of pt's status up on admission and devise an individualized program for Balance Training Poor endurance - to improve, our physical therapists will perform initial evaluation of pt's status upon admission and devise an individualized program for Endurance Training Weakness - to improve, our physical therapists will perform initial evaluation of pt's status upon a dmission and devise an individualized program for Aquatic Therapy, Neuromuscular Reeducation, and Str engthening Achieving independence - to improve, our physical therapists will perform initial evaluation of pt's status upon admission and devise an individualized program for Community Reintegration Activities - Occupational Therapy ADL deficits - to improve, our occupation therapists will perform initial evaluation of pt's status upon admission and devise an individualized program for Bathing, Bed mobility, Community Reintegratio n, Cooking, Dressing, Eating, Fine Motor Skills, Grooming, Homemaking, Kitchen Mobility, Laundry, Pat ient Education, Safety Awareness, Splinting - Positioning, Transfers(Toilet, Tub, Shower), and Wheel Chair Management Need for school child care attendant - to improve, our occupation therapists will perform initial evaluation of pt's status upon admission and devise an individualized program for Caregiver Training Weakness - to improve, our occupation therapists will perform initial evaluation of pt's status upon admission and devise an individualized program for Aquatic Therapy, Balance, Endurance, UE ROM, and UE strengthening - Other See attached MAR (Medication Administration Record) See attached MAR (Medication Administration Record) Nai Ragland.pdf - Diet Type Continue Regular - Diet - Liquid Texture Continue Thin - Tube Feed Continue N/A - Bladder care per protocol - Weight Bearing Precaution WBAT left LE - Skin care per protocol - Diet - Solid Texture Continue Regular Continue Mechanical Soft - Shower allowing shower for Dementia, TBI, Stroke, or others FUNCTIONAL STATUS: UPDATED AT WEEKLY TEAM CONFERENCE - Bladder Same accident frequency: 7-Ind - No accidents in the past 7 days - Bowel Same accident frequency: 7-Ind - No accidents in the past 7 days - Walking Same score based on distance walked: 0(N/A) - Wheelchair Same score based on distance traveled: 0(N/A) FUNCTIONAL STATUS: - Self-Care A. Eating modA B. Grooming modA C. Bathing maxA D. Dressing - Upper modA E. Dressing - Lower maxA F. Toileting maxA - Sphincter Control G. Bladder control modA H. Bowel control modA - Transfers Control I. Bed/Chair/Wheelchair Dep J. Toilet Dep K. Tub/Shower Dep - Locomotion L. Walk/Wheelchair (B) Dep M. Stairs ADNO - Communication N. Comprehension (B) maxA O. Expression (B) modA - Social Cognition P. Social Interaction modA Q. Problem Solving maxA R. Memory modA - Endurance Fair - Balance Poor - Safety Awareness Poor QI SCORES: - Self-Care A. Eating 04-Supervision or touching assistance B. Oral hygiene 04-Supervision or touching assistance C. Toileting hygiene 02-Substantial/maximal assistance E. Shower/bathe self 02-Substantial/maximal assistance F. Upper body dressing 02-Substantial/maximal assistance G. Lower body dressing 01-Dependent H. Putting on/taking off footwear 01-Dependent - Mobility A. Roll left and right 02-Substantial/maximal assistance B. Sit to lying 02-Substantial/maximal assistance C. Lying to sitting on side of bed 02-Substantial/maximal assistance D. Sit to stand 02-Substantial/maximal assistance E. Chair/dda-le-hqbpd transfer 02-Substantial/maximal assistance F. Toilet transfer 02-Substantial/maximal assistance G. Car transfer 10-Not attempted due to environmental limitations I. Walk 10 feet 88-Not attempted due to medical condition or safety concerns J. Walk 50 feet with two turns 88-Not attempted due to medical condition or safety concerns K. Walk 150 feet 88-Not attempted due to medical condition or safety concerns L. Walking 10 feet on uneven surfaces 88-Not attempted due to medical condition or safety concerns M. 1 step (curb) 88-Not attempted due to medical condition or safety concerns N. 4 steps 88-Not attempted due to medical condition or safety concerns O. 12 steps 88-Not attempted due to medical condition or safety concerns P. Picking up object 88-Not attempted due to medical condition or safety concerns R. Wheel 50 feet with two turns 88-Not attempted due to medical condition or safety concerns S. Wheel 150 feet 88-Not attempted due to medical condition or safety concerns - Bladder and Bowel Bladder continence 0-Always continent Bowel continence 0-Always continent - Endurance Poor - Balance Poor - Safety Awareness Poor CURRENT FUNC. DEFICITS: Self-Care, Mobility, Endurance, Balance, and Safety Awareness SIGNATURE PANEL: (GIS WEB DEVELOPER)
[2019-10-10] MEDS: LABETALOL HCL 100 MG TAB PO SCH ×3 (06:00→22:00)
[2019-10-10] MEDS: PANTOPRAZOLE 40MG TABLET PO SCH (07:10)
[2019-10-10] MEDS: ENSURE HIGH PROTEIN 237 ML CAN PO SCH ×2 (08:00→22:57)
[2019-10-10] MEDS: PROMOD 30 ML DOSE PO SCH ×2 (08:00→22:56)
[2019-10-10] MEDS: HYDROCODONE/APAP 5/325 MG TAB PO PRN (09:26)
[2019-10-10] MEDS: VALSARTAN 160 MG TAB PO SCH (09:27)
[2019-10-10] MEDS: CLOPIDOGREL 75 MG TABLET PO SCH (09:27)
[2019-10-10] MEDS: APIXABAN 5 MG TABLET PO SCH ×2 (09:27→22:55)
[2019-10-10] MEDS: ASPIRIN EC 81 MG TAB PO SCH (09:27)
[2019-10-10] MEDS: SALMETEROL 50 MCG IH SCH ×2 (09:28→20:00)
[2019-10-10] MEDS: FLUTICASONE 250 MCG IH SCH ×2 (09:28→20:00)
[2019-10-10] MEDS: LIDOCAINE 4% PATCH TOP SCH (09:29)
[2019-10-10] MEDS: MAGNESIUM OXIDE 400 MG TAB PO SCH ×2 (09:31→20:00)
--- NOTE | 2019-10-10 09:56 | P.RH.PN ---
Estimated Length of Stay: 24 Expected Discharge Date: 10/19/19 Discharge Disposition Plan: Home Family Support: Yes [facility] Goal: Mobility, Transfers, Self Care Vital Signs: Last Vital Signs Temp 97 F 10/10/19 09:26 Pulse 81 10/10/19 09:27 Resp 16 10/10/19 09:26 BP 138/63 10/10/19 09:27 Pulse Ox 97 10/10/19 09:26 Laboratory: Laboratory Last Values WBC 7.6 K/uL (4.3-10.9) D 10/09/19 05:51 RBC 3.13 M/uL (3.86-4.86) L 10/09/19 05:51 Hgb 10.3 g/dL (12.0-15.0) L 10/09/19 05:51 Hct 30.3 % (36.0-45.0) L 10/09/19 05:51 MCV 96.7 fL (80-100) 10/09/19 05:51 MCH 32.9 pg (27.0-35.0) 10/09/19 05:51 MCHC 34.1 g/dL (32.0-36.0) 10/09/19 05:51 RDW 13.1 % (12.1-15.2) 10/09/19 05:51 Plt Count 204 K/uL (152-406) D 10/09/19 05:51 MPV 9.1 fL (7.6-11.3) 10/09/19 05:51 Neutrophils % 69.7 % (41.7-73.7) 10/09/19 05:51 Lymphocytes % 17.8 % (15.3-44.8) 10/09/19 05:51 Monocytes % 11.2 % (3.3-12.3) 10/09/19 05:51 Eosinophils % 1.0 % (0-4.4) 10/09/19 05:51 Basophils % 0.3 % (0-1.3) 10/09/19 05:51 Absolute Neutrophils 5.3 K/uL (1.8-8.0) 10/09/19 05:51 Segmented Neutrophils 69 % (40-80) 10/02/19 05:42 Absolute Lymphocytes 1.3 K/uL (0.7-4.9) 10/09/19 05:51 Lymphocytes 24 % (15-42) 10/02/19 05:42 Monocytes 5 % (0-10) 10/02/19 05:42 Absolute Monocytes 0.8 K/uL (0.1-1.3) 10/09/19 05:51 Absolute Eosinophils 0.1 K/uL (0-0.5) 10/09/19 05:51 Absolute Basophils 0.0 K/uL (0-0.5) 10/09/19 05:51 Metamyelocytes 2 % (0-0) H 10/02/19 05:42 Morphology Comment Not seen (NOT SEEN) 10/02/19 05:42 Sodium 137 mmol/L (136-145) 10/09/19 05:51 Potassium 3.5 mmol/L (3.5-5.1) 10/09/19 05:51 Chloride 103 mmol/L (98-107) 10/09/19 05:51 Carbon Dioxide 28 mmol/L (21-32) 10/09/19 05:51 BUN 21 mg/dL (7-18) H 10/09/19 05:51 Creatinine 0.94 mg/dL (0.55-1.3) 10/09/19 05:51 Estimated GFR 57 mL/min (=/>90) L 10/09/19 05:51 Glucose 98 mg/dL (74-106) 10/09/19 05:51 Calcium 8.8 mg/dL (8.5-10.1) 10/09/19 05:51 Magnesium 1.5 mg/dL (1.8-2.4) L 10/10/19 06:02 Albumin 2.3 g/dL (3.4-5.0) L 10/09/19 05:51 Prealbumin 12.8 mg/dL (20-40) L 10/09/19 05:51 Urine Color Yellow 09/28/19 11:00 Urine Appearance Turbid 09/28/19 11:00 Urine pH 6.0 (5.0-7.0) 09/28/19 11:00 Ur Specific [place] 1.015 (1.005-1.030) 09/28/19 11:00 Glucose (UA)(Auto) Negative (NEG) 09/28/19 11:00 Urine Ketones Negative (NEG) 09/28/19 11:00 Urine Blood 3+ (NEG) H 09/28/19 11:00 Urine Nitrite Positive (NEG) H 09/28/19 11:00 Urine Bilirubin Negative (NEG) 09/28/19 11:00 Urine Urobilinogen 0.2 mg/dL (0.2-1.0) 09/28/19 11:00 Ur Leukocyte Esterase 3+ (NEG) H 09/28/19 11:00 Urine RBC 20-50 /HPF (NONE SEEN) H 09/28/19 11:00 Urine WBC Loaded /HPF (<5) H 09/28/19 11:00 Ur Squamous Epith Cells <5 /HPF (NONE SEEN) 09/28/19 11:00 Urine Bacteria >50 /HPF (<20) H 09/28/19 11:00 Urine Culture Reflexed Not needed 09/28/19 11:00 Urine Total Protein 2+ (NEG) H 09/28/19 11:00 Weight: 155 lb 3.2 oz Wound Present: No Closed Surgical Incision Present: No Negative Pressure Wound Therapy Present: No Physician Update: Labs reviewed and are stable. She is making fair overall progress. She has dense left arm paresis. She requires total assistance with transfers. She still has left sided neglect. Medical Issues: LLE DVT - on Eliquis 5mg BID PO. Patient is incontinent daily with bladder and always continent with bowel. Pain Issues: PAtient is taking [place] 5/325mg Q6H PO PRN and Tramadol 50mg Q6H PO PRN for pain. Functional Improvement: Patient has currently not met any short-term or long- term goals, however is showing improvement w/ alertness and interaction w/ therapy. Speech Therapy Update: Patient has made significant progress in her left side neglect during levi- and extrapersonal tasks. Patient cont to struggle with reading. Patient present with mild cognitive impairments. She exhibits minimal difficulty with abstraction. 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 Please see the Rehabilitation Signature page for all necessary signatures.
[2019-10-10] MEDS: TAMSULOSIN 0.4 MG SR CAP PO SCH (22:55)
[2019-10-10] MEDS: ATORVASTATIN 80 MG TAB PO SCH (22:55)
[2019-10-10] MEDS: DOCUSATE NA/SENNA CONC 1 TAB PO PRN (22:58)
--- NOTE | 2019-10-11 02:40 | FAST ---
SHIFT START DATE/TIME: 10/10/2019 19:00 (SENIOR RESEARCH PROJECT MANAGER) SHIFT END DATE/TIME: 10/11/2019 07:00 (SENIOR RESEARCH PROJECT MANAGER) NAME JOSE DE LOS SANTOS DATE OF : 1935 DATE OF ADMISSION: 09/27/2019 12:34 (SENIOR RESEARCH PROJECT MANAGER) PHONE: AGE: 84 N# [id number] GENDER: Female ENCOUNTER PHYSICIAN: Dr. Elvis Munoz M.D. ADMISSION DIAGNOSIS: - Stroke 01 - Left Body (Right Brain) (01.1) Acute Ischemic Right MCA Stroke. EATING: Not assessed/no information CODE: - ORAL HYGIENE: Not assessed/no information CODE: - TOILETING HYGIENE: TOILETING HYGIENE - STEP 1: Does the patient complete the activity by him/herself with no assistance (physical, verbal/nonverbal cueing, setup/clean-up)? No. TOILETING HYGIENE - STEP 2: Does the patient need only setup/clean-up assistance from one helper? No. TOILETING HYGIENE - STEP 3: Does the patient need only verbal/nonverbal cueing or touching/steadying/contact guard assistance fro m one helper? No. TOILETING HYGIENE - STEP 4: Does the patient need physical assistance - for example lifting or trunk support from one helper - wi th the helper providing less than half of the effort? No. TOILETING HYGIENE - STEP 5: Does the patient need physical assistance - for example lifting or trunk support from one helper - wi th the helper providing more than half of the effort? Yes. 1. [id number] ADMISSION PERFORMANCE: Substantial/maximal assistance CODE: 02 BATHING: Not assessed/no information CODE: - DRESSING - UPPER BODY: Not assessed/no information CODE: - DRESSING - LOWER BODY: Not assessed/no information CODE: - PUTTING ON/TAKING OFF FOOTWEAR: Not assessed/no information CODE: - ROLL LEFT AND RIGHT: ROLL LEFT AND RIGHT - STEP 1: Does the patient complete the activity by him/herself with no assistance (physical, verbal/nonverbal cueing, setup/clean-up)? No. ROLL LEFT AND RIGHT - STEP 2: Does the patient need only setup/clean-up assistance from one helper? No. ROLL LEFT AND RIGHT - STEP 3: Does the patient need only verbal/nonverbal cueing or touching/steadying/contact guard assistance fro m one helper? No. ROLL LEFT AND RIGHT - STEP 4: Does the patient need physical assistance - for example lifting or trunk support from one helper - wi th the helper providing less than half of the effort? Yes. 1. [id number] ADMISSION PERFORMANCE: Partial/moderate assistance CODE: 03 SIT TO LYING: SIT TO LYING - STEP 1: Does the patient complete the activity by him/herself with no assistance (physical, verbal/nonverbal cueing, setup/clean-up)? No. SIT TO LYING - STEP 2: Does the patient need only setup/clean-up assistance from one helper? No. SIT TO LYING - STEP 3: Does the patient need only verbal/nonverbal cueing or touching/steadying/contact guard assistance fro m one helper? No. SIT TO LYING - STEP 4: Does the patient need physical assistance - for example lifting or trunk support from one helper - wi th the helper providing less than half of the effort? Yes. 1. [id number] ADMISSION PERFORMANCE: Partial/moderate assistance CODE: 03 LYING TO SITTING: LYING TO SITTING ON SIDE OF BED - STEP 1: Does the patient complete the activity by him/herself with no assistance (physical, verbal/nonverbal cueing, setup/clean-up)? No. LYING TO SITTING ON SIDE OF BED - STEP 2: Does the patient need only setup/clean-up assistance from one helper? No. LYING TO SITTING ON SIDE OF BED - STEP 3: Does the patient need only verbal/nonverbal cueing or touching/steadying/contact guard assistance fro m one helper? No. LYING TO SITTING ON SIDE OF BED - STEP 4: Does the patient need physical assistance - for example lifting or trunk support from one helper - wi th the helper providing less than half of the effort? No. LYING TO SITTING ON SIDE OF BED - STEP 5: Does the patient need physical assistance - for example lifting or trunk support from one helper - wi th the helper providing more than half of the effort? Yes. 1. [id number] ADMISSION PERFORMANCE: Substantial/maximal assistance CODE: 02 SIT TO STAND: SIT TO STAND - STEP 1: Does the patient complete the activity by him/herself with no assistance (physical, verbal/nonverbal cueing, setup/clean-up)? No. SIT TO STAND - STEP 2: Does the patient need only setup/clean-up assistance from one helper? No. SIT TO STAND - STEP 3: Does the patient need only verbal/nonverbal cueing or touching/steadying/contact guard assistance fro m one helper? No. SIT TO STAND - STEP 4: Does the patient need physical assistance - for example lifting or trunk support from one helper - wi th the helper providing less than half of the effort? No. SIT TO STAND - STEP 5: Does the patient need physical assistance - for example lifting or trunk support from one helper - wi th the helper providing more than half of the effort? Yes. 1. [id number] ADMISSION PERFORMANCE: Substantial/maximal assistance CODE: 02 TRANSFERS: BED, CHAIR: CHAIR/[id number] TRANSFER - STEP 1: Does the patient complete the activity by him/herself with no assistance (physical, verbal/nonverbal cueing, setup/clean-up)? No. CHAIR/[id number]-AF-[id number] TRANSFER - STEP 2: Does the patient need only setup/clean-up assistance from one helper? No. CHAIR/[id number] TRANSFER - STEP 3: Does the patient need only verbal/nonverbal cueing or touching/steadying/contact guard assistance fro m one helper? No. CHAIR/[id number] TRANSFER - STEP 4: Does the patient need physical assistance - for example lifting or trunk support from one helper - wi th the helper providing less than half of the effort? No. CHAIR/[id number] TRANSFER - STEP 5: Does the patient need physical assistance - for example lifting or trunk support from one helper - wi th the helper providing more than half of the effort? Yes. 1. [id number] ADMISSION PERFORMANCE: Substantial/maximal assistance CODE: 02 TRANSFER TOILET: TOILET TRANSFER - STEP 1: Does the patient complete the activity by him/herself with no assistance (physical, verbal/nonverbal cueing, setup/clean-up)? No. TOILET TRANSFER - STEP 2: Does the patient need only setup/clean-up assistance from one helper? No. TOILET TRANSFER - STEP 3: Does the patient need only verbal/nonverbal cueing or touching/steadying/contact guard assistance fro m one helper? No. TOILET TRANSFER - STEP 4: Does the patient need physical assistance - for example lifting or trunk support from one helper - wi th the helper providing less than half of the effort? No. TOILET TRANSFER - STEP 5: Does the patient need physical assistance - for example lifting or trunk support from one helper - wi th the helper providing more than half of the effort? Yes. 1. [id number] ADMISSION PERFORMANCE: Substantial/maximal assistance CODE: 02 TRANSFERS: CAR: Not assessed/no information CODE: - WALK 10 FEET: Not assessed/no information CODE: - 1 STEP (CURB): Not assessed/no information CODE: - PICKING UP OBJECT: Not assessed/no information CODE: - DOES THE PATIENT USE A WHEELCHAIR/SCOOTER? CODE: EXPR WHEEL 50 FEET WITH TWO TURNS: Not assessed/no information CODE: - INDICATE THE TYPE OF WHEELCHAIR/SCOOTER USED: CODE: EXPR WHEEL 150 FEET: Not assessed/no information CODE: - INDICATE THE TYPE OF WHEELCHAIR/SCOOTER USED: CODE: EXPR BLADDER AND BOWEL: H350. BLADDER CONTINENCE (3-DAY ASSESSMENT PERIOD): Always incontinent CODE: 4 H400. BOWEL CONTINENCE (3-DAY ASSESSMENT PERIOD): Always incontinent (no episodes of continent bowel movements) CODE: 3
[2019-10-11] MEDS: LABETALOL HCL 100 MG TAB PO SCH ×3 (05:15→19:26)
[2019-10-11] MEDS: ENSURE HIGH PROTEIN 237 ML CAN PO SCH ×2 (08:00→19:27)
[2019-10-11] MEDS: PROMOD 30 ML DOSE PO SCH ×2 (08:00→19:27)
[2019-10-11] MEDS: PANTOPRAZOLE 40MG TABLET PO SCH (08:26)
[2019-10-11] MEDS: HYDROCODONE/APAP 5/325 MG TAB PO PRN ×2 (09:34→15:51)
[2019-10-11] MEDS: LIDOCAINE 4% PATCH TOP SCH (09:35)
[2019-10-11] MEDS: VALSARTAN 160 MG TAB PO SCH (09:36)
[2019-10-11] MEDS: MAGNESIUM OXIDE 400 MG TAB PO SCH ×2 (09:37→19:26)
[2019-10-11] MEDS: CLOPIDOGREL 75 MG TABLET PO SCH (09:37)
[2019-10-11] MEDS: APIXABAN 5 MG TABLET PO SCH ×2 (09:37→19:26)
[2019-10-11] MEDS: ASPIRIN EC 81 MG TAB PO SCH (09:37)
[2019-10-11] MEDS: SALMETEROL 50 MCG IH SCH ×2 (09:38→19:26)
[2019-10-11] MEDS: FLUTICASONE 250 MCG IH SCH ×2 (09:38→19:26)
--- NOTE | 2019-10-11 18:31 | FAST ---
ENCOUNTER DATE AND TIME: 10/11/2019 08:00 (ENVIRONMENTAL STUDIES DEPARTMENT CHAIR) NAME JOSE DE LOS SANTOS DATE OF : 1935 DATE OF ADMISSION: 09/27/2019 12:34 (ENVIRONMENTAL STUDIES DEPARTMENT CHAIR) PHONE: AGE: 84 N# [id number] GENDER: Female ENCOUNTER PHYSICIAN: Dr. Elvis Munoz M.D. ADMISSION DIAGNOSIS: - Stroke 01 - Left Body (Right Brain) (01.1) Acute Ischemic Right MCA Stroke. EATING: Not assessed/no information CODE: - ORAL HYGIENE: ORAL HYGIENE - STEP 1: Does the patient complete the activity by him/herself with no assistance (physical, verbal/nonverbal cueing, setup/clean-up)? No. ORAL HYGIENE - STEP 2: Does the patient need only setup/clean-up assistance from one helper? Yes. 1. [id number] ADMISSION PERFORMANCE: Setup or clean-up assistance CODE: 05 TOILETING HYGIENE: TOILETING HYGIENE - STEP 1: Does the patient complete the activity by him/herself with no assistance (physical, verbal/nonverbal cueing, setup/clean-up)? No. TOILETING HYGIENE - STEP 2: Does the patient need only setup/clean-up assistance from one helper? No. TOILETING HYGIENE - STEP 3: Does the patient need only verbal/nonverbal cueing or touching/steadying/contact guard assistance fro m one helper? No. TOILETING HYGIENE - STEP 4: Does the patient need physical assistance - for example lifting or trunk support from one helper - wi th the helper providing less than half of the effort? No. TOILETING HYGIENE - STEP 5: Does the patient need physical assistance - for example lifting or trunk support from one helper - wi th the helper providing more than half of the effort? No. TOILETING HYGIENE - STEP 6: Does the helper provide all of the effort? OR Is the assistance of two or more helpers required to co mplete the activity? Yes. 1. [id number] ADMISSION PERFORMANCE: Dependent CODE: 01 BATHING: Not assessed/no information CODE: - DRESSING - UPPER BODY: DRESSING - UPPER BODY - STEP 1: Does the patient complete the activity by him/herself with no assistance (physical, verbal/nonverbal cueing, setup/clean-up)? No. DRESSING - UPPER BODY - STEP 2: Does the patient need only setup/clean-up assistance from one helper? No. DRESSING - UPPER BODY - STEP 3: Does the patient need only verbal/nonverbal cueing or touching/steadying/contact guard assistance fro m one helper? No. DRESSING - UPPER BODY - STEP 4: Does the patient need physical assistance - for example lifting or trunk support from one helper - wi th the helper providing less than half of the effort? No. DRESSING - UPPER BODY - STEP 5: Does the patient need physical assistance - for example lifting or trunk support from one helper - wi th the helper providing more than half of the effort? Yes. 1. [id number] ADMISSION PERFORMANCE: Substantial/maximal assistance CODE: 02 DRESSING - LOWER BODY: DRESSING - LOWER BODY - STEP 1: Does the patient complete the activity by him/herself with no assistance (physical, verbal/nonverbal cueing, setup/clean-up)? No. DRESSING - LOWER BODY - STEP 2: Does the patient need only setup/clean-up assistance from one helper? No. DRESSING - LOWER BODY - STEP 3: Does the patient need only verbal/nonverbal cueing or touching/steadying/contact guard assistance fro m one helper? No. DRESSING - LOWER BODY - STEP 4: Does the patient need physical assistance - for example lifting or trunk support from one helper - wi th the helper providing less than half of the effort? No. DRESSING - LOWER BODY - STEP 5: Does the patient need physical assistance - for example lifting or trunk support from one helper - wi th the helper providing more than half of the effort? No. DRESSING - LOWER BODY - STEP 6: Does the helper provide all of the effort? OR Is the assistance of two or more helpers required to co mplete the activity? Yes. 1. [id number] ADMISSION PERFORMANCE: Dependent CODE: 01 PUTTING ON/TAKING OFF FOOTWEAR: FOOTWEAR - STEP 1: Does the patient complete the activity by him/herself with no assistance (physical, verbal/nonverbal cueing, setup/clean-up)? No. FOOTWEAR - STEP 2: Does the patient need only setup/clean-up assistance from one helper? No. FOOTWEAR - STEP 3: Does the patient need only verbal/nonverbal cueing or touching/steadying/contact guard assistance fro m one helper? No. FOOTWEAR - STEP 4: Does the patient need physical assistance - for example lifting or trunk support from one helper - wi th the helper providing less than half of the effort? No. FOOTWEAR - STEP 5: Does the patient need physical assistance - for example lifting or trunk support from one helper - wi th the helper providing more than half of the effort? No. FOOTWEAR - STEP 6: Does the helper provide all of the effort? OR Is the assistance of two or more helpers required to co mplete the activity? Yes. 1. [id number] ADMISSION PERFORMANCE: Dependent CODE: 01 DOES THE PATIENT USE A WHEELCHAIR/SCOOTER? CODE: EXPR INDICATE THE TYPE OF WHEELCHAIR/SCOOTER USED: CODE: EXPR INDICATE THE TYPE OF WHEELCHAIR/SCOOTER USED: CODE: EXPR BLADDER AND BOWEL: CODE: EXPR CODE: EXPR SIGNATURE PANEL: The following modified sections: 1. [id number] Admission Performance, 1. [id number] Admission Performance, 1. [id number] Admission Performance, 1. [id number] Admission Performance, 1. [id number] Admission Performance were [electronically] signed by Carito Simon OT on Sat Oct 11 2019 18:30:59 GMT-0600 ([facility])
[2019-10-11] MEDS: ATORVASTATIN 80 MG TAB PO SCH (19:26)
[2019-10-11] MEDS: TRAMADOL HCL 50 MG TAB PO PRN (19:27)
[2019-10-11] MEDS: TAMSULOSIN 0.4 MG SR CAP PO SCH (19:27)
[2019-10-12] MEDS: LABETALOL HCL 100 MG TAB PO SCH ×3 (05:08→20:46)
[2019-10-12] MEDS: PANTOPRAZOLE 40MG TABLET PO SCH (07:20)
[2019-10-12] MEDS: PROMOD 30 ML DOSE PO SCH ×2 (08:00→20:00)
[2019-10-12] MEDS: ENSURE HIGH PROTEIN 237 ML CAN PO SCH ×2 (08:00→20:00)
[2019-10-12] MEDS: LIDOCAINE 4% PATCH TOP SCH (08:39)
[2019-10-12] MEDS: HYDROCODONE/APAP 5/325 MG TAB PO PRN ×2 (08:40→20:47)
[2019-10-12] MEDS: VALSARTAN 160 MG TAB PO SCH (08:41)
[2019-10-12] MEDS: ASPIRIN EC 81 MG TAB PO SCH (08:41)
[2019-10-12] MEDS: APIXABAN 5 MG TABLET PO SCH ×2 (08:41→20:47)
[2019-10-12] MEDS: CLOPIDOGREL 75 MG TABLET PO SCH (08:42)
[2019-10-12] MEDS: MAGNESIUM OXIDE 400 MG TAB PO SCH ×2 (08:42→20:49)
[2019-10-12] MEDS: SALMETEROL 50 MCG IH SCH ×2 (08:43→20:49)
[2019-10-12] MEDS: FLUTICASONE 250 MCG IH SCH ×2 (08:43→20:49)
[2019-10-12] MEDS: ATORVASTATIN 80 MG TAB PO SCH (20:45)
[2019-10-12] MEDS: TAMSULOSIN 0.4 MG SR CAP PO SCH (20:47)
[2019-10-13] MEDS: LABETALOL HCL 100 MG TAB PO SCH ×3 (05:04→21:50)
[2019-10-13] MEDS: SALMETEROL 50 MCG IH SCH ×2 (08:00→20:00)
[2019-10-13] MEDS: ENSURE HIGH PROTEIN 237 ML CAN PO SCH ×2 (08:00→20:00)
[2019-10-13] MEDS: FLUTICASONE 250 MCG IH SCH ×2 (08:00→20:00)
[2019-10-13] MEDS: PROMOD 30 ML DOSE PO SCH ×2 (08:15→20:00)
[2019-10-13] MEDS: LIDOCAINE 4% PATCH TOP SCH (08:15)
[2019-10-13] MEDS: MAGNESIUM OXIDE 400 MG TAB PO SCH ×2 (08:16→20:38)
[2019-10-13] MEDS: APIXABAN 5 MG TABLET PO SCH ×2 (08:16→20:38)
[2019-10-13] MEDS: CLOPIDOGREL 75 MG TABLET PO SCH (08:16)
[2019-10-13] MEDS: ASPIRIN EC 81 MG TAB PO SCH (08:16)
[2019-10-13] MEDS: PANTOPRAZOLE 40MG TABLET PO SCH (08:16)
[2019-10-13] MEDS: HYDROCODONE/APAP 5/325 MG TAB PO PRN ×2 (08:17→21:49)
[2019-10-13] MEDS: VALSARTAN 160 MG TAB PO SCH (08:17)
--- NOTE | 2019-10-13 20:29 | RAD REPORT ---
EXAM DESCRIPTION: USExtrem Venous W Compress Bil10/13/2019 8:14 pm CLINICAL HISTORY: Bilateral leg swelling COMPARISON: September 2019 FINDINGS: The common femoral, superficial femoral, popliteal and posterior tibial veins bilaterally are compressible and demonstrate augmentation. Doppler demonstrates good flow. Mild partial subacute thrombus within the anterior tibial vein IMPRESSION: No evidence of deep venous thrombosis involving either lower extremity. Mild partial subacute thrombus within the left anterior tibial vein
[2019-10-13] MEDS: TAMSULOSIN 0.4 MG SR CAP PO SCH (20:38)
[2019-10-13] MEDS: ATORVASTATIN 80 MG TAB PO SCH (20:39)
--- NOTE | 2019-10-13 23:24 | R.PN ---
ENCOUNTER DATE AND TIME: 10/13/2019 23:17 (CDT) NAME NAI RAGLAND DATE OF : 1935 DATE OF ADMISSION: 09/27/2019 12:34 ([facility] FEEDER) Acute Ischemic Right MCA StrokeCHIEF COMPLAINT: Dense left face, arm and leg weakness, dysarthria and dysphagia SUBJECTIVE: Pt denied any depression. Pt denied any Shortness of Breath. She denies pain, admits to mild difficulty swallowing. Marked left sided weakness 0/5 in the arm, 1-2 /5 in the left leg with significant left sided neglect. She has a modified barium study scheduled. Ma x to total assistance needed to bed mobility, transfers and standing in the parallel bars. She is working well with speech therapy. She has difficulty identifying objects in her left visual fi eld. She did balance and bed mobility training with moderate to maximum assistance. VITAL SIGNS Temperature: 98.3 F SBP/DBP: 140/54 Pulse: 88 Resp: 16 MEDICATION ALLERGIES: No Known Drug Allergies (NKDA) ENVIRONMENTAL ALLERGIES: None Known - Substance Allergies None Known - Other Allergies None Known NURSING: - Shower allowing shower - Bladder care per protocol - Skin care per protocol PRECAUTIONS: - Weight Bearing Precaution WBAT left LE ACTIVITIES OOB only with supervision THERAPIES: - Occupational Therapy Cognitive Retraining. Visual Perceptual Training. - Dietary and Nutrition Adequate Nutrition. Nutritional Education. Nutritional Supplements. - Speech Therapy Cognitive Training. Dysphagia Therapy. Expressive Language Skills. Memory Strategies. Receptive Langu age Skills. Speech Intelligibility Training. PHYSICAL EXAM - Gen Alert and awake Lying in bed No apparent distress Oriented to: person, time, and place - Skin No skin breakdown. Normacephalic - Eyes No abnormalities - ENMT No abnormalities - Neck No abnormalities - CVS RRR - Chest Mildly decreased breath sounds bilaterally. - Abd Soft - GI Non distended Deferred - No abnormalities - Ext Mild left lower extremity edema. - MSK 0-1+/5 weakness in left upper and lower extremity. - Neuro 0-1+/5 weakness in left upper and lower extremity. Marked left jorge-neglect. - Psych No abnormalities ASSESSMENT: Pt. is a 84 yo Right-handed white female.On 09/15/[address] [facility] with sudden onset of left-side weakness.On 09/15/2019 she was admitted to [facility] with diagnosis Acute I schemic Right MCA Stroke.Her impairment category is Stroke 01 - Left Body (Right Brain) (01.1).Pre-m orbidly, Pt. was independent/mod-I in Locomotion, Safety Awareness, Balance, Social Cognition, Transf ers Control, Sphincter Control, Self-Care, Communication, and Endurance; and she had good Locomotion, Balance, Safety Awareness, Social Cognition, Transfers Control, Sphincter Control, Self-Care, Commun ication, and Endurance.Currently, she has deficits of Locomotion, Safety Awareness, Balance, Transfer s Control, Self-Care, Communication, and Endurance.Pt. is now referred to [facility] for acute in-patient rehabilitation in order to maximize patient's functional independence in activities of daily living, strength, ROM, and mobility.- Rehab Goal Patient has realistic goal of being discharged at assistance level 6-Hunter to reside at Home with Fam fernando/Relatives. MDM/PLAN: - Physical Therapy Gait dysfunction - to improve, our physical therapists will perform initial evaluation of pt's statu s upon admission and devise an individualized program for Gait Training, and Wheel Chair mobility Inability to transfer - to improve, our physical therapists will perform initial evaluation of pt's status upon admission and devise an individualized program for Bed mobility Need for home safety evaluation - to improve, our physical therapists will perform initial evaluatio n of pt's status upon admission and devise an individualized program for Home Evaluation Need in caregiver upon discharge - to improve, our physical therapists will perform initial evaluati on of pt's status upon admission and devise an individualized program for Caregiver Training New precaution - to improve, our physical therapists will perform initial evaluation of pt's status upon admission and devise an individualized program for Patient precaution education Poor balance - to improve, our physical therapists will perform initial evaluation of pt's status up on admission and devise an individualized program for Balance Training Poor endurance - to improve, our physical therapists will perform initial evaluation of pt's status upon admission and devise an individualized program for Endurance Training Weakness - to improve, our physical therapists will perform initial evaluation of pt's status upon a dmission and devise an individualized program for Aquatic Therapy, Neuromuscular Reeducation, and Str engthening Achieving independence - to improve, our physical therapists will perform initial evaluation of pt's status upon admission and devise an individualized program for Community Reintegration Activities - Occupational Therapy ADL deficits - to improve, our occupation therapists will perform initial evaluation of pt's status upon admission and devise an individualized program for Bathing, Bed mobility, Community Reintegratio n, Cooking, Dressing, Eating, Fine Motor Skills, Grooming, Homemaking, Kitchen Mobility, Laundry, Pat ient Education, Safety Awareness, Splinting - Positioning, Transfers(Toilet, Tub, Shower), and Wheel Chair Management Need for chiropractic care - to improve, our occupation therapists will perform initial evaluation of pt's status upon admission and devise an individualized program for Caregiver Training Weakness - to improve, our occupation therapists will perform initial evaluation of pt's status upon admission and devise an individualized program for Aquatic Therapy, Balance, Endurance, UE ROM, and UE strengthening - Other See attached MAR (Medication Administration Record) See attached MAR (Medication Administration Record) Nai Ragland.pdf - Diet Type Continue Regular - Diet - Liquid Texture Continue Thin - Tube Feed Continue N/A - Bladder care per protocol - Weight Bearing Precaution WBAT left LE - Skin care per protocol - Diet - Solid Texture Continue Regular Continue Mechanical Soft - Shower allowing shower for Dementia, TBI, Stroke, or others FUNCTIONAL STATUS: UPDATED AT WEEKLY TEAM CONFERENCE - Bladder Same accident frequency: 7-Ind - No accidents in the past 7 days - Bowel Same accident frequency: 7-Ind - No accidents in the past 7 days - Walking Same score based on distance walked: 0(N/A) - Wheelchair Same score based on distance traveled: 0(N/A) FUNCTIONAL STATUS: - Self-Care A. Eating modA B. Grooming modA C. Bathing maxA D. Dressing - Upper modA E. Dressing - Lower maxA F. Toileting maxA - Sphincter Control G. Bladder control modA H. Bowel control modA - Transfers Control I. Bed/Chair/Wheelchair Dep J. Toilet Dep K. Tub/Shower Dep - Locomotion L. Walk/Wheelchair (B) Dep M. Stairs ADNO - Communication N. Comprehension (B) maxA O. Expression (B) modA - Social Cognition P. Social Interaction modA Q. Problem Solving maxA R. Memory modA - Endurance Fair - Balance Poor - Safety Awareness Poor QI SCORES: - Self-Care A. Eating 04-Supervision or touching assistance B. Oral hygiene 04-Supervision or touching assistance C. Toileting hygiene 02-Substantial/maximal assistance E. Shower/bathe self 02-Substantial/maximal assistance F. Upper body dressing 02-Substantial/maximal assistance G. Lower body dressing 01-Dependent H. Putting on/taking off footwear 01-Dependent - Mobility A. Roll left and right 02-Substantial/maximal assistance B. Sit to lying 02-Substantial/maximal assistance C. Lying to sitting on side of bed 02-Substantial/maximal assistance D. Sit to stand 02-Substantial/maximal assistance E. Chair/[id number] transfer 02-Substantial/maximal assistance F. Toilet transfer 02-Substantial/maximal assistance G. Car transfer 10-Not attempted due to environmental limitations I. Walk 10 feet 88-Not attempted due to medical condition or safety concerns J. Walk 50 feet with two turns 88-Not attempted due to medical condition or safety concerns K. Walk 150 feet 88-Not attempted due to medical condition or safety concerns L. Walking 10 feet on uneven surfaces 88-Not attempted due to medical condition or safety concerns M. 1 step (curb) 88-Not attempted due to medical condition or safety concerns N. 4 steps 88-Not attempted due to medical condition or safety concerns O. 12 steps 88-Not attempted due to medical condition or safety concerns P. Picking up object 88-Not attempted due to medical condition or safety concerns R. Wheel 50 feet with two turns 88-Not attempted due to medical condition or safety concerns S. Wheel 150 feet 88-Not attempted due to medical condition or safety concerns - Bladder and Bowel Bladder continence 0-Always continent Bowel continence 0-Always continent - Endurance Poor - Balance Poor - Safety Awareness Poor CURRENT FUNC. DEFICITS: Self-Care, Mobility, Endurance, Balance, and Safety Awareness SIGNATURE PANEL: (CDT)
[2019-10-14] MEDS: LABETALOL HCL 100 MG TAB PO SCH ×3 (05:19→21:26)
[2019-10-14] MEDS: SALMETEROL 50 MCG IH SCH ×2 (08:00→20:48)
[2019-10-14] MEDS: ENSURE HIGH PROTEIN 237 ML CAN PO SCH ×2 (08:00→20:00)
[2019-10-14] MEDS: PROMOD 30 ML DOSE PO SCH ×2 (08:00→20:00)
[2019-10-14] MEDS: FLUTICASONE 250 MCG IH SCH ×2 (08:00→20:48)
[2019-10-14] MEDS: APIXABAN 5 MG TABLET PO SCH ×2 (08:13→20:48)
[2019-10-14] MEDS: LIDOCAINE 4% PATCH TOP SCH (08:13)
[2019-10-14] MEDS: MAGNESIUM OXIDE 400 MG TAB PO SCH ×2 (08:14→20:47)
[2019-10-14] MEDS: ASPIRIN EC 81 MG TAB PO SCH (08:14)
[2019-10-14] MEDS: CLOPIDOGREL 75 MG TABLET PO SCH (08:14)
[2019-10-14] MEDS: HYDROCODONE/APAP 5/325 MG TAB PO PRN (08:14)
[2019-10-14] MEDS: PANTOPRAZOLE 40MG TABLET PO SCH (08:14)
[2019-10-14] MEDS: VALSARTAN 160 MG TAB PO SCH (08:14)
[2019-10-14] MEDS: ATORVASTATIN 80 MG TAB PO SCH (20:47)
[2019-10-14] MEDS: TRAMADOL HCL 50 MG TAB PO PRN (21:30)
[2019-10-15] MEDS: LABETALOL HCL 100 MG TAB PO SCH ×3 (05:14→20:05)
[2019-10-15] MEDS: PANTOPRAZOLE 40MG TABLET PO SCH (07:43)
[2019-10-15] MEDS: ENSURE HIGH PROTEIN 237 ML CAN PO SCH ×2 (08:00→20:00)
[2019-10-15] MEDS: PROMOD 30 ML DOSE PO SCH ×2 (08:00→20:00)
[2019-10-15] MEDS: HYDROCODONE/APAP 5/325 MG TAB PO PRN ×2 (08:23→20:06)
[2019-10-15] MEDS: CLOPIDOGREL 75 MG TABLET PO SCH (08:27)
[2019-10-15] MEDS: VALSARTAN 160 MG TAB PO SCH (08:27)
[2019-10-15] MEDS: ASPIRIN EC 81 MG TAB PO SCH (08:28)
[2019-10-15] MEDS: SALMETEROL 50 MCG IH SCH ×2 (08:28→20:00)
[2019-10-15] MEDS: FLUTICASONE 250 MCG IH SCH ×2 (08:28→20:00)
[2019-10-15] MEDS: APIXABAN 5 MG TABLET PO SCH ×2 (08:28→20:06)
[2019-10-15] MEDS: MAGNESIUM OXIDE 400 MG TAB PO SCH ×2 (08:29→20:06)
[2019-10-15] MEDS: LIDOCAINE 4% PATCH TOP SCH (09:44)
[2019-10-15] MEDS: TRAMADOL HCL 50 MG TAB PO PRN (12:53)
[2019-10-15] MEDS: TAMSULOSIN 0.4 MG SR CAP PO SCH (20:05)
[2019-10-15] MEDS: ATORVASTATIN 80 MG TAB PO SCH (20:06)
[2019-10-16] MEDS: LABETALOL HCL 100 MG TAB PO SCH ×3 (05:07→21:10)
[2019-10-16 06:56] LABS: Absolute Lymphocytes (CBC) 1.2 K/uL (0.7-4.9); Basophils % 0.7 % (0-1.3); Hematocrit 28.4 % (36.0-45.0); Lymphocytes % 26.6 % (15.3-44.8); MPV 8.6 fL (7.6-11.3); RBC Red Blood Cell Count 2.93 M/uL (3.86-4.86)
[2019-10-16 07:29] LABS: Albumin 2.3 g/dL (3.4-5.0); Magnesium 1.6 mg/dL (1.8-2.4); Potassium 3.7 mmol/L (3.5-5.1); Prealbumin 15.7 mg/dL (20-40)
[2019-10-16] MEDS: ENSURE HIGH PROTEIN 237 ML CAN PO SCH ×2 (08:00→20:00)
[2019-10-16] MEDS: PROMOD 30 ML DOSE PO SCH ×2 (08:00→20:00)
[2019-10-16] MEDS: HYDROCODONE/APAP 5/325 MG TAB PO PRN ×2 (08:07→21:15)
[2019-10-16] MEDS: PANTOPRAZOLE 40MG TABLET PO SCH (08:07)
[2019-10-16] MEDS: LIDOCAINE 4% PATCH TOP SCH (08:09)
[2019-10-16] MEDS: MAGNESIUM OXIDE 400 MG TAB PO SCH ×2 (08:10→21:10)
[2019-10-16] MEDS: ASPIRIN EC 81 MG TAB PO SCH (08:10)
[2019-10-16] MEDS: CLOPIDOGREL 75 MG TABLET PO SCH (08:10)
[2019-10-16] MEDS: APIXABAN 5 MG TABLET PO SCH ×2 (08:10→21:09)
[2019-10-16] MEDS: VALSARTAN 160 MG TAB PO SCH (08:11)
[2019-10-16] MEDS: FLUTICASONE 250 MCG IH SCH ×2 (08:11→21:10)
[2019-10-16] MEDS: SALMETEROL 50 MCG IH SCH ×2 (08:11→21:10)
--- NOTE | 2019-10-16 10:01 | P.RH.PN ---
Estimated Length of Stay: 30 Expected Discharge Date: 10/25/19 Discharge Disposition Plan: Home Family Support: Yes Detention Goal: Mobility, Transfers, Self Care Vital Signs: Last Vital Signs Temp 96.5 F L 10/16/19 08:00 Pulse 77 10/16/19 08:11 Resp 18 10/16/19 08:07 BP 131/54 L 10/16/19 08:11 Pulse Ox 97 10/16/19 08:07 Laboratory: Laboratory Last Values WBC 4.6 K/uL (4.3-10.9) D 10/16/19 06:18 RBC 2.93 M/uL (3.86-4.86) L 10/16/19 06:18 Hgb 9.7 g/dL (12.0-15.0) L 10/16/19 06:18 Hct 28.4 % (36.0-45.0) L 10/16/19 06:18 MCV 97.0 fL (80-100) 10/16/19 06:18 MCH 33.0 pg (27.0-35.0) 10/16/19 06:18 MCHC 34.0 g/dL (32.0-36.0) 10/16/19 06:18 RDW 13.8 % (12.1-15.2) 10/16/19 06:18 Plt Count 241 K/uL (152-406) 10/16/19 06:18 MPV 8.6 fL (7.6-11.3) 10/16/19 06:18 Neutrophils % 54.8 % (41.7-73.7) 10/16/19 06:18 Lymphocytes % 26.6 % (15.3-44.8) 10/16/19 06:18 Monocytes % 12.2 % (3.3-12.3) 10/16/19 06:18 Eosinophils % 5.7 % (0-4.4) H 10/16/19 06:18 Basophils % 0.7 % (0-1.3) 10/16/19 06:18 Absolute Neutrophils 2.5 K/uL (1.8-8.0) 10/16/19 06:18 Segmented Neutrophils 69 % (40-80) 10/02/19 05:42 Absolute Lymphocytes 1.2 K/uL (0.7-4.9) 10/16/19 06:18 Lymphocytes 24 % (15-42) 10/02/19 05:42 Monocytes 5 % (0-10) 10/02/19 05:42 Absolute Monocytes 0.6 K/uL (0.1-1.3) 10/16/19 06:18 Absolute Eosinophils 0.3 K/uL (0-0.5) 10/16/19 06:18 Absolute Basophils 0.0 K/uL (0-0.5) 10/16/19 06:18 Metamyelocytes 2 % (0-0) H 10/02/19 05:42 Morphology Comment Not seen (NOT SEEN) 10/02/19 05:42 Sodium 138 mmol/L (136-145) 10/16/19 06:18 Potassium 3.7 mmol/L (3.5-5.1) 10/16/19 06:18 Chloride 106 mmol/L (98-107) 10/16/19 06:18 Carbon Dioxide 28 mmol/L (21-32) 10/16/19 06:18 BUN 14 mg/dL (7-18) 10/16/19 06:18 Creatinine 0.70 mg/dL (0.55-1.3) 10/16/19 06:18 Estimated GFR 80 mL/min (=/>90) L 10/16/19 06:18 Glucose 99 mg/dL (74-106) 10/16/19 06:18 Calcium 9.0 mg/dL (8.5-10.1) 10/16/19 06:18 Magnesium 1.6 mg/dL (1.8-2.4) L 10/16/19 06:18 Albumin 2.3 g/dL (3.4-5.0) L 10/16/19 06:18 Prealbumin 15.7 mg/dL (20-40) L 10/16/19 06:18 Urine Color Yellow 09/28/19 11:00 Urine Appearance Turbid 09/28/19 11:00 Urine pH 6.0 (5.0-7.0) 09/28/19 11:00 Ur Specific Philip 1.015 (1.005-1.030) 09/28/19 11:00 Glucose (UA)(Auto) Negative (NEG) 09/28/19 11:00 Urine Ketones Negative (NEG) 09/28/19 11:00 Urine Blood 3+ (NEG) H 09/28/19 11:00 Urine Nitrite Positive (NEG) H 09/28/19 11:00 Urine Bilirubin Negative (NEG) 09/28/19 11:00 Urine Urobilinogen 0.2 mg/dL (0.2-1.0) 09/28/19 11:00 Ur Leukocyte Esterase 3+ (NEG) H 09/28/19 11:00 Urine RBC 20-50 /HPF (NONE SEEN) H 09/28/19 11:00 Urine WBC Loaded /HPF (<5) H 09/28/19 11:00 Ur Squamous Epith Cells <5 /HPF (NONE SEEN) 09/28/19 11:00 Urine Bacteria >50 /HPF (<20) H 09/28/19 11:00 Urine Culture Reflexed Not needed 09/28/19 11:00 Urine Total Protein 2+ (NEG) H 09/28/19 11:00 Weight: 149 lb 9.6 oz Wound Present: No Closed Surgical Incision Present: No Negative Pressure Wound Therapy Present: No Physician Update: Labs reviewed and are stable. She is doing better with transfers able to take a step in the parallel bars. She is show mild improvement is left are extension. She is max assistance for standing. She is swallowing all consistences well. She is more awake with improved mood despite not taking an antidepressant. She requires frequent ques to continue participating with all therapy. Medical Issues: LLE DVT - on Eliquis 5mg BID PO. Patient is incontinent daily with bladder and always continent with bowel. Pain Issues: PAtient is taking Clinton 5/325mg Q6H PO PRN and Tramadol 50mg Q6H PO PRN for pain. Functional Improvement: Patient has currently not met any short-term or long- term goals, however is showing improvement w/ alertness and interaction w/ therapy. Speech Therapy Update: Patient cont to present with mild cognitive-linguistic deficits and L side neglect. No dysphagia, tolerating regular diet. Patient is responding well to therapy. She is able to turn her head to left and identify objects in left visual field with cueing. Summary: Patient's care plan and steam table associate goals have been reviewed and revised as necessary. Please see the Rehabilitation Signature page for all necessary signatures.
--- NOTE | 2019-10-16 10:32 | FAST ---
SHIFT START DATE/TIME: 10/16/2019 07:00 (CDT) SHIFT END DATE/TIME: 10/16/2019 19:00 (CDT) NAME JOSE DE LOS SANTOS DATE OF : 1935 DATE OF ADMISSION: 09/27/2019 12:34 (BARGE PILOT) PHONE: AGE: 84 N# [id number] GENDER: Female ENCOUNTER PHYSICIAN: Dr. Elvis Munoz M.D. ADMISSION DIAGNOSIS: - Stroke 01 - Left Body (Right Brain) (01.1) Acute Ischemic Right MCA Stroke. EATING: EATING - STEP 1: Does the patient complete the activity by him/herself with no assistance (physical, verbal/nonverbal cueing, setup/clean-up)? No. EATING - STEP 2: Does the patient need only setup/clean-up assistance from one helper? No. EATING - STEP 3: Does the patient need only verbal/nonverbal cueing or touching/steadying/contact guard assistance fro m one helper? No. EATING - STEP 4: Does the patient need physical assistance - for example lifting or trunk support from one helper - wi th the helper providing less than half of the effort? Yes. 1. [id number] ADMISSION PERFORMANCE: Partial/moderate assistance CODE: 03 ORAL HYGIENE: ORAL HYGIENE - STEP 1: Does the patient complete the activity by him/herself with no assistance (physical, verbal/nonverbal cueing, setup/clean-up)? No. ORAL HYGIENE - STEP 2: Does the patient need only setup/clean-up assistance from one helper? No. ORAL HYGIENE - STEP 3: Does the patient need only verbal/nonverbal cueing or touching/steadying/contact guard assistance fro m one helper? No. ORAL HYGIENE - STEP 4: Does the patient need physical assistance - for example lifting or trunk support from one helper - wi th the helper providing less than half of the effort? Yes. 1. [id number] ADMISSION PERFORMANCE: Partial/moderate assistance CODE: 03 TOILETING HYGIENE: TOILETING HYGIENE - STEP 1: Does the patient complete the activity by him/herself with no assistance (physical, verbal/nonverbal cueing, setup/clean-up)? No. TOILETING HYGIENE - STEP 2: Does the patient need only setup/clean-up assistance from one helper? No. TOILETING HYGIENE - STEP 3: Does the patient need only verbal/nonverbal cueing or touching/steadying/contact guard assistance fro m one helper? No. TOILETING HYGIENE - STEP 4: Does the patient need physical assistance - for example lifting or trunk support from one helper - wi th the helper providing less than half of the effort? No. TOILETING HYGIENE - STEP 5: Does the patient need physical assistance - for example lifting or trunk support from one helper - wi th the helper providing more than half of the effort? No. TOILETING HYGIENE - STEP 6: Does the helper provide all of the effort? OR Is the assistance of two or more helpers required to co mplete the activity? Yes. 1. [id number] ADMISSION PERFORMANCE: Dependent CODE: 01 BATHING: Not assessed/no information CODE: - DRESSING - UPPER BODY: Not assessed/no information CODE: - DRESSING - LOWER BODY: Not assessed/no information CODE: - PUTTING ON/TAKING OFF FOOTWEAR: Not assessed/no information CODE: - ROLL LEFT AND RIGHT: Not assessed/no information CODE: - SIT TO LYING: Not assessed/no information CODE: - LYING TO SITTING: LYING TO SITTING ON SIDE OF BED - STEP 1: Does the patient complete the activity by him/herself with no assistance (physical, verbal/nonverbal cueing, setup/clean-up)? No. LYING TO SITTING ON SIDE OF BED - STEP 2: Does the patient need only setup/clean-up assistance from one helper? No. LYING TO SITTING ON SIDE OF BED - STEP 3: Does the patient need only verbal/nonverbal cueing or touching/steadying/contact guard assistance fro m one helper? No. LYING TO SITTING ON SIDE OF BED - STEP 4: Does the patient need physical assistance - for example lifting or trunk support from one helper - wi th the helper providing less than half of the effort? No. LYING TO SITTING ON SIDE OF BED - STEP 5: Does the patient need physical assistance - for example lifting or trunk support from one helper - wi th the helper providing more than half of the effort? Yes. 1. [id number] ADMISSION PERFORMANCE: Substantial/maximal assistance CODE: 02 SIT TO STAND: SIT TO STAND - STEP 1: Does the patient complete the activity by him/herself with no assistance (physical, verbal/nonverbal cueing, setup/clean-up)? No. SIT TO STAND - STEP 2: Does the patient need only setup/clean-up assistance from one helper? No. SIT TO STAND - STEP 3: Does the patient need only verbal/nonverbal cueing or touching/steadying/contact guard assistance fro m one helper? No. SIT TO STAND - STEP 4: Does the patient need physical assistance - for example lifting or trunk support from one helper - wi th the helper providing less than half of the effort? No. SIT TO STAND - STEP 5: Does the patient need physical assistance - for example lifting or trunk support from one helper - wi th the helper providing more than half of the effort? Yes. 1. [id number] ADMISSION PERFORMANCE: Substantial/maximal assistance CODE: 02 TRANSFERS: BED, CHAIR: CHAIR/[id number] TRANSFER - STEP 1: Does the patient complete the activity by him/herself with no assistance (physical, verbal/nonverbal cueing, setup/clean-up)? No. CHAIR/[id number] TRANSFER - STEP 2: Does the patient need only setup/clean-up assistance from one helper? No. CHAIR/[id number] TRANSFER - STEP 3: Does the patient need only verbal/nonverbal cueing or touching/steadying/contact guard assistance fro m one helper? No. CHAIR/GIN-DC-[id number] TRANSFER - STEP 4: Does the patient need physical assistance - for example lifting or trunk support from one helper - wi th the helper providing less than half of the effort? No. CHAIR/[id number] TRANSFER - STEP 5: Does the patient need physical assistance - for example lifting or trunk support from one helper - wi th the helper providing more than half of the effort? Yes. 1. [id number] ADMISSION PERFORMANCE: Substantial/maximal assistance CODE: 02 TRANSFER TOILET: TOILET TRANSFER - STEP 1: Does the patient complete the activity by him/herself with no assistance (physical, verbal/nonverbal cueing, setup/clean-up)? No. TOILET TRANSFER - STEP 2: Does the patient need only setup/clean-up assistance from one helper? No. TOILET TRANSFER - STEP 3: Does the patient need only verbal/nonverbal cueing or touching/steadying/contact guard assistance fro m one helper? No. TOILET TRANSFER - STEP 4: Does the patient need physical assistance - for example lifting or trunk support from one helper - wi th the helper providing less than half of the effort? No. TOILET TRANSFER - STEP 5: Does the patient need physical assistance - for example lifting or trunk support from one helper - wi th the helper providing more than half of the effort? Yes. 1. [id number] ADMISSION PERFORMANCE: Substantial/maximal assistance CODE: 02 TRANSFERS: CAR: Not assessed/no information CODE: - WALK 10 FEET: Not assessed/no information CODE: - 1 STEP (CURB): Not assessed/no information CODE: - PICKING UP OBJECT: Not assessed/no information CODE: - DOES THE PATIENT USE A WHEELCHAIR/SCOOTER? CODE: EXPR WHEEL 50 FEET WITH TWO TURNS: Not assessed/no information CODE: - INDICATE THE TYPE OF WHEELCHAIR/SCOOTER USED: CODE: EXPR WHEEL 150 FEET: Not assessed/no information CODE: - INDICATE THE TYPE OF WHEELCHAIR/SCOOTER USED: CODE: EXPR BLADDER AND BOWEL: H350. BLADDER CONTINENCE (3-DAY ASSESSMENT PERIOD): Stress incontinence only CODE: 1 H400. BOWEL CONTINENCE (3-DAY ASSESSMENT PERIOD): Occasionally incontinent (one episode of bowel incontinence) CODE: 1 SIGNATURE PANEL: The following modified sections: 1. [id number] Admission Performance, 1. [id number] Admission Performance, 1. [id number] Admission Performance, 1. [id number] Admission Performance, 1. [id number] Admission Performance, 1. [id number] Admission Performance, 1. [id number] Admission Performance, 1. [id number] Admission Performance , 1. [id number] Admission Performance, Code, H350. Bladder Continence (3-day assessment period), H400. B owel Continence (3-day assessment period) were [electronically] signed by Federico Bello on SunOct 15 10:31:23 GMT-0500 (Central Daylight Time)
[2019-10-16] MEDS: ATORVASTATIN 80 MG TAB PO SCH (21:09)
[2019-10-16] MEDS: TAMSULOSIN 0.4 MG SR CAP PO SCH (21:09)
[2019-10-17] MEDS: LABETALOL HCL 100 MG TAB PO SCH ×3 (05:17→22:00)
[2019-10-17] MEDS: FLUTICASONE 250 MCG IH SCH ×2 (08:00→20:00)
[2019-10-17] MEDS: CLOPIDOGREL 75 MG TABLET PO SCH (08:00)
[2019-10-17] MEDS: SALMETEROL 50 MCG IH SCH ×2 (08:00→20:00)
[2019-10-17] MEDS: PROMOD 30 ML DOSE PO SCH ×2 (08:00→20:00)
[2019-10-17] MEDS: ENSURE HIGH PROTEIN 237 ML CAN PO SCH ×2 (08:00→20:00)
[2019-10-17] MEDS: MAGNESIUM OXIDE 400 MG TAB PO SCH ×2 (08:20→20:50)
[2019-10-17] MEDS: APIXABAN 5 MG TABLET PO SCH ×2 (08:20→20:50)
[2019-10-17] MEDS: VALSARTAN 160 MG TAB PO SCH (08:21)
[2019-10-17] MEDS: PANTOPRAZOLE 40MG TABLET PO SCH (08:22)
[2019-10-17] MEDS: LIDOCAINE 4% PATCH TOP SCH (11:20)
[2019-10-17] MEDS: ASPIRIN EC 81 MG TAB PO SCH (11:26)
--- NOTE | 2019-10-17 14:33 | FAST ---
SHIFT START DATE/TIME: 10/17/2019 07:00 (CDT) SHIFT END DATE/TIME: 10/17/2019 19:00 (CDT) NAME JOSE DE LOS SANTOS DATE OF : 1935 DATE OF ADMISSION: 09/27/2019 12:34 (PURCHASING/RECEIVING) PHONE: AGE: 84 N# [id number] GENDER: Female ENCOUNTER PHYSICIAN: Dr. Elvis Munoz M.D. ADMISSION DIAGNOSIS: - Stroke 01 - Left Body (Right Brain) (01.1) Acute Ischemic Right MCA Stroke. EATING: EATING - STEP 1: Does the patient complete the activity by him/herself with no assistance (physical, verbal/nonverbal cueing, setup/clean-up)? No. EATING - STEP 2: Does the patient need only setup/clean-up assistance from one helper? No. EATING - STEP 3: Does the patient need only verbal/nonverbal cueing or touching/steadying/contact guard assistance fro m one helper? No. EATING - STEP 4: Does the patient need physical assistance - for example lifting or trunk support from one helper - wi th the helper providing less than half of the effort? Yes. 1. [id number] ADMISSION PERFORMANCE: Partial/moderate assistance CODE: 03 ORAL HYGIENE: ORAL HYGIENE - STEP 1: Does the patient complete the activity by him/herself with no assistance (physical, verbal/nonverbal cueing, setup/clean-up)? No. ORAL HYGIENE - STEP 2: Does the patient need only setup/clean-up assistance from one helper? No. ORAL HYGIENE - STEP 3: Does the patient need only verbal/nonverbal cueing or touching/steadying/contact guard assistance fro m one helper? No. ORAL HYGIENE - STEP 4: Does the patient need physical assistance - for example lifting or trunk support from one helper - wi th the helper providing less than half of the effort? Yes. 1. [id number] ADMISSION PERFORMANCE: Partial/moderate assistance CODE: 03 TOILETING HYGIENE: TOILETING HYGIENE - STEP 1: Does the patient complete the activity by him/herself with no assistance (physical, verbal/nonverbal cueing, setup/clean-up)? No. TOILETING HYGIENE - STEP 2: Does the patient need only setup/clean-up assistance from one helper? No. TOILETING HYGIENE - STEP 3: Does the patient need only verbal/nonverbal cueing or touching/steadying/contact guard assistance fro m one helper? No. TOILETING HYGIENE - STEP 4: Does the patient need physical assistance - for example lifting or trunk support from one helper - wi th the helper providing less than half of the effort? No. TOILETING HYGIENE - STEP 5: Does the patient need physical assistance - for example lifting or trunk support from one helper - wi th the helper providing more than half of the effort? No. TOILETING HYGIENE - STEP 6: Does the helper provide all of the effort? OR Is the assistance of two or more helpers required to co mplete the activity? Yes. 1. [id number] ADMISSION PERFORMANCE: Dependent CODE: BATHING: Not assessed/no information CODE: - DRESSING - UPPER BODY: DRESSING - UPPER BODY - STEP 1: Does the patient complete the activity by him/herself with no assistance (physical, verbal/nonverbal cueing, setup/clean-up)? No. DRESSING - UPPER BODY - STEP 2: Does the patient need only setup/clean-up assistance from one helper? No. DRESSING - UPPER BODY - STEP 3: Does the patient need only verbal/nonverbal cueing or touching/steadying/contact guard assistance fro m one helper? No. DRESSING - UPPER BODY - STEP 4: Does the patient need physical assistance - for example lifting or trunk support from one helper - wi th the helper providing less than half of the effort? No. DRESSING - UPPER BODY - STEP 5: Does the patient need physical assistance - for example lifting or trunk support from one helper - wi th the helper providing more than half of the effort? No. DRESSING - UPPER BODY - STEP 6: Does the helper provide all of the effort? OR Is the assistance of two or more helpers required to co mplete the activity? Yes. 1. [id number] ADMISSION PERFORMANCE: Dependent CODE: DRESSING - LOWER BODY: DRESSING - LOWER BODY - STEP 1: Does the patient complete the activity by him/herself with no assistance (physical, verbal/nonverbal cueing, setup/clean-up)? No. DRESSING - LOWER BODY - STEP 2: Does the patient need only setup/clean-up assistance from one helper? No. DRESSING - LOWER BODY - STEP 3: Does the patient need only verbal/nonverbal cueing or touching/steadying/contact guard assistance fro m one helper? No. DRESSING - LOWER BODY - STEP 4: Does the patient need physical assistance - for example lifting or trunk support from one helper - wi th the helper providing less than half of the effort? No. DRESSING - LOWER BODY - STEP 5: Does the patient need physical assistance - for example lifting or trunk support from one helper - wi th the helper providing more than half of the effort? No. DRESSING - LOWER BODY - STEP 6: Does the helper provide all of the effort? OR Is the assistance of two or more helpers required to co mplete the activity? Yes. 1. [id number] ADMISSION PERFORMANCE: Dependent CODE: 01 PUTTING ON/TAKING OFF FOOTWEAR: FOOTWEAR - STEP 1: Does the patient complete the activity by him/herself with no assistance (physical, verbal/nonverbal cueing, setup/clean-up)? No. FOOTWEAR - STEP 2: Does the patient need only setup/clean-up assistance from one helper? No. FOOTWEAR - STEP 3: Does the patient need only verbal/nonverbal cueing or touching/steadying/contact guard assistance fro m one helper? No. FOOTWEAR - STEP 4: Does the patient need physical assistance - for example lifting or trunk support from one helper - wi th the helper providing less than half of the effort? No. FOOTWEAR - STEP 5: Does the patient need physical assistance - for example lifting or trunk support from one helper - wi th the helper providing more than half of the effort? No. FOOTWEAR - STEP 6: Does the helper provide all of the effort? OR Is the assistance of two or more helpers required to co mplete the activity? Yes. 1. [id number] ADMISSION PERFORMANCE: Dependent CODE: 01 DOES THE PATIENT USE A WHEELCHAIR/SCOOTER? CODE: EXPR INDICATE THE TYPE OF WHEELCHAIR/SCOOTER USED: CODE: EXPR INDICATE THE TYPE OF WHEELCHAIR/SCOOTER USED: CODE: EXPR BLADDER AND BOWEL: H350. BLADDER CONTINENCE (3-DAY ASSESSMENT PERIOD): Incontinent daily (at least once a day) CODE: 3 H400. BOWEL CONTINENCE (3-DAY ASSESSMENT PERIOD): Occasionally incontinent (one episode of bowel incontinence) CODE: 1 SIGNATURE PANEL: The following modified sections: 1. [id number] Admission Performance, 1. [id number] Admission Performance, 1. [id number] Admission Performance, 1. [id number] Admission Performance, 1. [id number] Admission Performance, 1. [id number] Admission Performance, 1. [id number] Admission Performance, 1. [id number] Admission Performance , 1. [id number] Admission Performance, H350. Bladder Continence (3-day assessment period), H400. Bowel C ontinence (3-day assessment period) were [electronically] signed by Steven MerinoNAlyson on SunOct 042019 14:32:07 GMT-0500 (Central Daylight Time)
[2019-10-17] MEDS: HYDROCODONE/APAP 5/325 MG TAB PO PRN (20:49)
[2019-10-17] MEDS: TAMSULOSIN 0.4 MG SR CAP PO SCH (20:50)
[2019-10-17] MEDS: ATORVASTATIN 80 MG TAB PO SCH (20:50)
[2019-10-18] MEDS: HYDROCODONE/APAP 5/325 MG TAB PO PRN ×2 (01:54→21:52)
--- NOTE | 2019-10-18 02:39 | FAST ---
SHIFT START DATE/TIME: 10/17/2019 19:00 (CDT) SHIFT END DATE/TIME: 10/18/2019 07:00 (CDT) NAME JOSE DE LOS SANTOS DATE OF : 1935 DATE OF ADMISSION: 09/27/2019 12:34 (TILE EDGER) PHONE: AGE: 84 N# [id number] GENDER: Female ENCOUNTER PHYSICIAN: Dr. Elvis Munoz M.D. ADMISSION DIAGNOSIS: - Stroke 01 - Left Body (Right Brain) (01.1) Acute Ischemic Right MCA Stroke. EATING: Not assessed/no information CODE: - ORAL HYGIENE: Not assessed/no information CODE: - TOILETING HYGIENE: TOILETING HYGIENE - STEP 1: Does the patient complete the activity by him/herself with no assistance (physical, verbal/nonverbal cueing, setup/clean-up)? No. TOILETING HYGIENE - STEP 2: Does the patient need only setup/clean-up assistance from one helper? No. TOILETING HYGIENE - STEP 3: Does the patient need only verbal/nonverbal cueing or touching/steadying/contact guard assistance fro m one helper? No. TOILETING HYGIENE - STEP 4: Does the patient need physical assistance - for example lifting or trunk support from one helper - wi th the helper providing less than half of the effort? No. TOILETING HYGIENE - STEP 5: Does the patient need physical assistance - for example lifting or trunk support from one helper - wi th the helper providing more than half of the effort? Yes. 1. [id number] ADMISSION PERFORMANCE: Substantial/maximal assistance CODE: 02 BATHING: Not assessed/no information CODE: - DRESSING - UPPER BODY: Not assessed/no information CODE: - DRESSING - LOWER BODY: Not assessed/no information CODE: - PUTTING ON/TAKING OFF FOOTWEAR: Not assessed/no information CODE: - ROLL LEFT AND RIGHT: ROLL LEFT AND RIGHT - STEP 1: Does the patient complete the activity by him/herself with no assistance (physical, verbal/nonverbal cueing, setup/clean-up)? No. ROLL LEFT AND RIGHT - STEP 2: Does the patient need only setup/clean-up assistance from one helper? No. ROLL LEFT AND RIGHT - STEP 3: Does the patient need only verbal/nonverbal cueing or touching/steadying/contact guard assistance fro m one helper? No. ROLL LEFT AND RIGHT - STEP 4: Does the patient need physical assistance - for example lifting or trunk support from one helper - wi th the helper providing less than half of the effort? Yes. 1. [id number] ADMISSION PERFORMANCE: Partial/moderate assistance CODE: 03 SIT TO LYING: SIT TO LYING - STEP 1: Does the patient complete the activity by him/herself with no assistance (physical, verbal/nonverbal cueing, setup/clean-up)? No. SIT TO LYING - STEP 2: Does the patient need only setup/clean-up assistance from one helper? No. SIT TO LYING - STEP 3: Does the patient need only verbal/nonverbal cueing or touching/steadying/contact guard assistance fro m one helper? No. SIT TO LYING - STEP 4: Does the patient need physical assistance - for example lifting or trunk support from one helper - wi th the helper providing less than half of the effort? No. SIT TO LYING - STEP 5: Does the patient need physical assistance - for example lifting or trunk support from one helper - wi th the helper providing more than half of the effort? Yes. 1. [id number] ADMISSION PERFORMANCE: Substantial/maximal assistance CODE: 02 LYING TO SITTING: LYING TO SITTING ON SIDE OF BED - STEP 1: Does the patient complete the activity by him/herself with no assistance (physical, verbal/nonverbal cueing, setup/clean-up)? No. LYING TO SITTING ON SIDE OF BED - STEP 2: Does the patient need only setup/clean-up assistance from one helper? No. LYING TO SITTING ON SIDE OF BED - STEP 3: Does the patient need only verbal/nonverbal cueing or touching/steadying/contact guard assistance fro m one helper? No. LYING TO SITTING ON SIDE OF BED - STEP 4: Does the patient need physical assistance - for example lifting or trunk support from one helper - wi th the helper providing less than half of the effort? No. LYING TO SITTING ON SIDE OF BED - STEP 5: Does the patient need physical assistance - for example lifting or trunk support from one helper - wi th the helper providing more than half of the effort? Yes. 1. [id number] ADMISSION PERFORMANCE: Substantial/maximal assistance CODE: 02 SIT TO STAND: SIT TO STAND - STEP 1: Does the patient complete the activity by him/herself with no assistance (physical, verbal/nonverbal cueing, setup/clean-up)? No. SIT TO STAND - STEP 2: Does the patient need only setup/clean-up assistance from one helper? No. SIT TO STAND - STEP 3: Does the patient need only verbal/nonverbal cueing or touching/steadying/contact guard assistance fro m one helper? No. SIT TO STAND - STEP 4: Does the patient need physical assistance - for example lifting or trunk support from one helper - wi th the helper providing less than half of the effort? No. SIT TO STAND - STEP 5: Does the patient need physical assistance - for example lifting or trunk support from one helper - wi th the helper providing more than half of the effort? No. SIT TO STAND - STEP 6: Does the helper provide all of the effort? OR Is the assistance of two or more helpers required to co mplete the activity? Yes. 1. [id number] ADMISSION PERFORMANCE: Dependent CODE: 01 TRANSFERS: BED, CHAIR: CHAIR/[id number] TRANSFER - STEP 1: Does the patient complete the activity by him/herself with no assistance (physical, verbal/nonverbal cueing, setup/clean-up)? No. CHAIR/[id number] TRANSFER - STEP 2: Does the patient need only setup/clean-up assistance from one helper? No. CHAIR/[id number]-[id number] TRANSFER - STEP 3: Does the patient need only verbal/nonverbal cueing or touching/steadying/contact guard assistance fro m one helper? No. CHAIR/EII-UI-[id number] TRANSFER - STEP 4: Does the patient need physical assistance - for example lifting or trunk support from one helper - wi th the helper providing less than half of the effort? No. CHAIR/RDN-[id number] TRANSFER - STEP 5: Does the patient need physical assistance - for example lifting or trunk support from one helper - wi th the helper providing more than half of the effort? No. CHAIR/[id number]-[id number] TRANSFER - STEP 6: Does the helper provide all of the effort? OR Is the assistance of two or more helpers required to co mplete the activity? Yes. 1. [id number] ADMISSION PERFORMANCE: Dependent CODE: 01 TRANSFER TOILET: Not assessed/no information CODE: - TRANSFERS: CAR: Not assessed/no information CODE: - WALK 10 FEET: Not assessed/no information CODE: - 1 STEP (CURB): Not assessed/no information CODE: - PICKING UP OBJECT: Not assessed/no information CODE: - DOES THE PATIENT USE A WHEELCHAIR/SCOOTER? CODE: EXPR WHEEL 50 FEET WITH TWO TURNS: Not assessed/no information CODE: - INDICATE THE TYPE OF WHEELCHAIR/SCOOTER USED: CODE: EXPR WHEEL 150 FEET: Not assessed/no information CODE: - INDICATE THE TYPE OF WHEELCHAIR/SCOOTER USED: CODE: EXPR BLADDER AND BOWEL: H350. BLADDER CONTINENCE (3-DAY ASSESSMENT PERIOD): Always incontinent CODE: 4 H400. BOWEL CONTINENCE (3-DAY ASSESSMENT PERIOD): Always incontinent (no episodes of continent bowel movements) CODE: 3
[2019-10-18] MEDS: LABETALOL HCL 100 MG TAB PO SCH ×3 (05:27→21:51)
[2019-10-18] MEDS: SALMETEROL 50 MCG IH SCH ×2 (08:00→20:59)
[2019-10-18] MEDS: FLUTICASONE 250 MCG IH SCH ×2 (08:00→20:59)
[2019-10-18] MEDS: ENSURE HIGH PROTEIN 237 ML CAN PO SCH ×2 (08:00→20:00)
[2019-10-18] MEDS: PROMOD 30 ML DOSE PO SCH ×2 (08:00→20:00)
[2019-10-18] MEDS: LIDOCAINE 4% PATCH TOP SCH (09:00)
[2019-10-18] MEDS: PANTOPRAZOLE 40MG TABLET PO SCH (09:01)
[2019-10-18] MEDS: MAGNESIUM OXIDE 400 MG TAB PO SCH ×2 (09:01→20:59)
[2019-10-18] MEDS: ASPIRIN EC 81 MG TAB PO SCH (09:01)
[2019-10-18] MEDS: APIXABAN 5 MG TABLET PO SCH ×2 (09:03→20:59)
[2019-10-18] MEDS: VALSARTAN 160 MG TAB PO SCH (09:03)
[2019-10-18] MEDS: TAMSULOSIN 0.4 MG SR CAP PO SCH (20:58)
[2019-10-18] MEDS: ATORVASTATIN 80 MG TAB PO SCH (20:58)
[2019-10-19] MEDS: LABETALOL HCL 100 MG TAB PO SCH ×3 (05:12→21:40)
[2019-10-19] MEDS: PANTOPRAZOLE 40MG TABLET PO SCH (07:46)
[2019-10-19] MEDS: LIDOCAINE 4% PATCH TOP SCH (07:47)
[2019-10-19] MEDS: PROMOD 30 ML DOSE PO SCH ×2 (08:00→20:00)
[2019-10-19] MEDS: ENSURE HIGH PROTEIN 237 ML CAN PO SCH ×2 (08:00→20:00)
[2019-10-19] MEDS: HYDROCODONE/APAP 5/325 MG TAB PO PRN ×2 (09:25→17:26)
[2019-10-19] MEDS: VALSARTAN 160 MG TAB PO SCH (09:26)
[2019-10-19] MEDS: FLUTICASONE 250 MCG IH SCH ×2 (09:27→20:00)
[2019-10-19] MEDS: SALMETEROL 50 MCG IH SCH ×2 (09:27→20:00)
[2019-10-19] MEDS: ASPIRIN EC 81 MG TAB PO SCH (09:28)
[2019-10-19] MEDS: APIXABAN 5 MG TABLET PO SCH ×2 (09:28→19:59)
[2019-10-19] MEDS: MAGNESIUM OXIDE 400 MG TAB PO SCH ×2 (09:28→19:59)
[2019-10-19] MEDS: TAMSULOSIN 0.4 MG SR CAP PO SCH (20:00)
[2019-10-19] MEDS: ATORVASTATIN 80 MG TAB PO SCH (20:00)
[2019-10-20] MEDS: LABETALOL HCL 100 MG TAB PO SCH ×3 (05:14→21:05)
[2019-10-20] MEDS: PROMOD 30 ML DOSE PO SCH ×2 (08:00→20:00)
[2019-10-20] MEDS: ENSURE HIGH PROTEIN 237 ML CAN PO SCH ×2 (08:00→20:00)
[2019-10-20] MEDS: PANTOPRAZOLE 40MG TABLET PO SCH (08:48)
[2019-10-20] MEDS: HYDROCODONE/APAP 5/325 MG TAB PO PRN ×2 (08:48→21:06)
[2019-10-20] MEDS: VALSARTAN 160 MG TAB PO SCH (08:49)
[2019-10-20] MEDS: MAGNESIUM OXIDE 400 MG TAB PO SCH ×2 (08:50→21:06)
[2019-10-20] MEDS: APIXABAN 5 MG TABLET PO SCH ×2 (08:50→21:06)
[2019-10-20] MEDS: FLUTICASONE 250 MCG IH SCH ×2 (08:50→20:00)
[2019-10-20] MEDS: SALMETEROL 50 MCG IH SCH ×2 (08:50→20:00)
[2019-10-20] MEDS: ASPIRIN EC 81 MG TAB PO SCH (08:51)
[2019-10-20] MEDS: LIDOCAINE 4% PATCH TOP SCH (09:09)
--- NOTE | 2019-10-20 18:12 | R.PN ---
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 Pt denied any Shortness of Breath. She denies pain, admits to mild difficulty swallowing. Marked left sided weakness 0/5 in the arm, 1-2 /5 in the left leg with significant left sided neglect. She has a modified barium study scheduled. Ma x to total assistance needed to bed mobility, transfers and standing in the parallel bars. She is working well with speech therapy. She has difficulty identifying objects in her left visual fi eld. She did balance and bed mobility training with moderate to maximum assistance. Repeat bilateral lower extremity dopplers show mild partial subacute thrombus in left anterior tibial vein. She is on Eliquis 5 mg bid and aspirin 81 mg bid. VITAL SIGNS Temperature: 97.2 F SBP/DBP: 129/54 Pulse: 67 Resp: 18 MEDICATION ALLERGIES: No Known Drug Allergies (NKDA) ENVIRONMENTAL ALLERGIES: None Known - Substance Allergies None Known - Other Allergies None Known NURSING: - Shower allowing shower - Bladder care per protocol - Skin care per protocol PRECAUTIONS: - Weight Bearing Precaution WBAT left LE ACTIVITIES OOB only with supervision THERAPIES: - Occupational Therapy Cognitive Retraining. Visual Perceptual Training. - Dietary and Nutrition Adequate Nutrition. Nutritional Education. Nutritional Supplements. - Speech Therapy Cognitive Training. Dysphagia Therapy. Expressive Language Skills. Memory Strategies. Receptive Langu age Skills. Speech Intelligibility Training. PHYSICAL EXAM - Gen Alert and awake Lying in bed No apparent distress Oriented to: person, time, and place - Skin No skin breakdown. Normacephalic - Eyes No abnormalities - ENMT No abnormalities - Neck No abnormalities - CVS RRR - Chest Mildly decreased breath sounds bilaterally. - Abd Soft - GI Non distended Deferred - No abnormalities - Ext Mild left lower extremity edema. - MSK 0-1+/5 weakness in left upper and lower extremity. - Neuro 0-1+/5 weakness in left upper and lower extremity. Marked left jorge-neglect. - Psych No abnormalities ASSESSMENT: Pt. is a 84 yo Right-handed white female.On 09/15/2019 Pt. presented to [facility] with sudden onset of left-side weakness.On 09/15/2019 she was admitted to [facility] with diagnosis Acute I schemic Right MCA Stroke.Her impairment category is Stroke 01 - Left Body (Right Brain) (01.1).Pre-m orbidly, Pt. was independent/mod-I in Locomotion, Safety Awareness, Balance, Social Cognition, Transf ers Control, Sphincter Control, Self-Care, Communication, and Endurance; and she had good Locomotion, Balance, Safety Awareness, Social Cognition, Transfers Control, Sphincter Control, Self-Care, Commun ication, and Endurance.Currently, she has deficits of Locomotion, Safety Awareness, Balance, Transfer s Control, Self-Care, Communication, and Endurance.Pt. is now referred to [facility] for acute in-patient rehabilitation in order to maximize patient's functional independence in activities of daily living, strength, ROM, and mobility.- Rehab Goal Patient has realistic goal of being discharged at assistance level 6-Hunter to reside at Home with Fam fernando/Relatives. MDM/PLAN: - Physical Therapy Gait dysfunction - to improve, our physical therapists will perform initial evaluation of pt's statu s upon admission and devise an individualized program for Gait Training, and Wheel Chair mobility Inability to transfer - to improve, our physical therapists will perform initial evaluation of pt's status upon admission and devise an individualized program for Bed mobility Need for home safety evaluation - to improve, our physical therapists will perform initial evaluatio n of pt's status upon admission and devise an individualized program for Home Evaluation Need in caregiver upon discharge - to improve, our physical therapists will perform initial evaluati on of pt's status upon admission and devise an individualized program for Caregiver Training New precaution - to improve, our physical therapists will perform initial evaluation of pt's status upon admission and devise an individualized program for Patient precaution education Poor balance - to improve, our physical therapists will perform initial evaluation of pt's status up on admission and devise an individualized program for Balance Training Poor endurance - to improve, our physical therapists will perform initial evaluation of pt's status upon admission and devise an individualized program for Endurance Training Weakness - to improve, our physical therapists will perform initial evaluation of pt's status upon a dmission and devise an individualized program for Aquatic Therapy, Neuromuscular Reeducation, and Str engthening Achieving independence - to improve, our physical therapists will perform initial evaluation of pt's status upon admission and devise an individualized program for Community Reintegration Activities - Occupational Therapy ADL deficits - to improve, our occupation therapists will perform initial evaluation of pt's status upon admission and devise an individualized program for Bathing, Bed mobility, Community Reintegratio n, Cooking, Dressing, Eating, Fine Motor Skills, Grooming, Homemaking, Kitchen Mobility, Laundry, Pat ient Education, Safety Awareness, Splinting - Positioning, Transfers(Toilet, Tub, Shower), and Wheel Chair Management Need for outdoor emergency care technician - to improve, our occupation therapists will perform initial evaluation of pt's status upon admission and devise an individualized program for Caregiver Training Weakness - to improve, our occupation therapists will perform initial evaluation of pt's status upon admission and devise an individualized program for Aquatic Therapy, Balance, Endurance, UE ROM, and UE strengthening - Other See attached MAR (Medication Administration Record) See attached MAR (Medication Administration Record) Nai Ragland.pdf - Diet Type Continue Regular - Diet - Liquid Texture Continue Thin - Tube Feed Continue N/A - Bladder care per protocol - Weight Bearing Precaution WBAT left LE - Skin care per protocol - Diet - Solid Texture Continue Regular Continue Mechanical Soft - Shower allowing shower for Dementia, TBI, Stroke, or others FUNCTIONAL STATUS: UPDATED AT WEEKLY TEAM CONFERENCE - Bladder Same accident frequency: 7-Ind - No accidents in the past 7 days - Bowel Same accident frequency: 7-Ind - No accidents in the past 7 days - Walking Same score based on distance walked: 0(N/A) - Wheelchair Same score based on distance traveled: 0(N/A) FUNCTIONAL STATUS: - Self-Care A. Eating modA B. Grooming modA C. Bathing maxA D. Dressing - Upper modA E. Dressing - Lower maxA F. Toileting maxA - Sphincter Control G. Bladder control modA H. Bowel control modA - Transfers Control I. Bed/Chair/Wheelchair Dep J. Toilet Dep K. Tub/Shower Dep - Locomotion L. Walk/Wheelchair (B) Dep M. Stairs ADNO - Communication N. Comprehension (B) maxA O. Expression (B) modA - Social Cognition P. Social Interaction modA Q. Problem Solving maxA R. Memory modA - Endurance Fair - Balance Poor - Safety Awareness Poor QI SCORES: - Self-Care A. Eating 04-Supervision or touching assistance B. Oral hygiene 04-Supervision or touching assistance C. Toileting hygiene 02-Substantial/maximal assistance E. Shower/bathe self 02-Substantial/maximal assistance F. Upper body dressing 02-Substantial/maximal assistance G. Lower body dressing 01-Dependent H. Putting on/taking off footwear 01-Dependent - Mobility A. Roll left and right 02-Substantial/maximal assistance B. Sit to lying 02-Substantial/maximal assistance C. Lying to sitting on side of bed 02-Substantial/maximal assistance D. Sit to stand 02-Substantial/maximal assistance E. Chair/lia-xw-bggmo transfer 02-Substantial/maximal assistance F. Toilet transfer 02-Substantial/maximal assistance G. Car transfer 10-Not attempted due to environmental limitations I. Walk 10 feet 88-Not attempted due to medical condition or safety concerns J. Walk 50 feet with two turns 88-Not attempted due to medical condition or safety concerns K. Walk 150 feet 88-Not attempted due to medical condition or safety concerns L. Walking 10 feet on uneven surfaces 88-Not attempted due to medical condition or safety concerns M. 1 step (curb) 88-Not attempted due to medical condition or safety concerns N. 4 steps 88-Not attempted due to medical condition or safety concerns O. 12 steps 88-Not attempted due to medical condition or safety concerns P. Picking up object 88-Not attempted due to medical condition or safety concerns R. Wheel 50 feet with two turns 88-Not attempted due to medical condition or safety concerns S. Wheel 150 feet 88-Not attempted due to medical condition or safety concerns - Bladder and Bowel Bladder continence 0-Always continent Bowel continence 0-Always continent - Endurance Poor - Balance Poor - Safety Awareness Poor CURRENT FUNC. DEFICITS: Self-Care, Mobility, Endurance, Balance, and Safety Awareness SIGNATURE PANEL: (CDT)
[2019-10-20] MEDS: ATORVASTATIN 80 MG TAB PO SCH (21:05)
[2019-10-20] MEDS: TAMSULOSIN 0.4 MG SR CAP PO SCH (21:07)
[2019-10-21] MEDS: LABETALOL HCL 100 MG TAB PO SCH ×3 (05:19→19:53)
[2019-10-21] MEDS: HYDROCODONE/APAP 5/325 MG TAB PO PRN ×2 (05:24→19:54)
[2019-10-21] MEDS: VALSARTAN 160 MG TAB PO SCH (08:00)
[2019-10-21] MEDS: ENSURE HIGH PROTEIN 237 ML CAN PO SCH ×2 (08:00→19:55)
[2019-10-21] MEDS: PROMOD 30 ML DOSE PO SCH ×2 (08:00→19:55)
[2019-10-21] MEDS: SALMETEROL 50 MCG IH SCH (08:00)
[2019-10-21] MEDS: FLUTICASONE 250 MCG IH SCH (08:00)
[2019-10-21] MEDS: APIXABAN 5 MG TABLET PO SCH ×2 (08:36→19:54)
[2019-10-21] MEDS: TRAMADOL HCL 50 MG TAB PO PRN (08:36)
[2019-10-21] MEDS: MAGNESIUM OXIDE 400 MG TAB PO SCH ×2 (08:36→19:54)
[2019-10-21] MEDS: ASPIRIN EC 81 MG TAB PO SCH (08:36)
[2019-10-21] MEDS: PANTOPRAZOLE 40MG TABLET PO SCH (08:37)
[2019-10-21] MEDS: LIDOCAINE 4% PATCH TOP SCH (08:37)
[2019-10-21] MEDS: ADVAIR IH SCH (19:53)
[2019-10-21] MEDS: TAMSULOSIN 0.4 MG SR CAP PO SCH (19:54)
[2019-10-21] MEDS: ATORVASTATIN 80 MG TAB PO SCH (19:54)
[2019-10-22] MEDS: LABETALOL HCL 100 MG TAB PO SCH ×3 (05:11→21:55)
[2019-10-22] MEDS: VALSARTAN 80 MG TAB PO SCH ×2 (08:00→09:35)
[2019-10-22] MEDS: PROMOD 30 ML DOSE PO SCH ×2 (08:00→20:00)
[2019-10-22] MEDS: VALSARTAN 160 MG TAB PO SCH (08:00)
[2019-10-22] MEDS: ENSURE HIGH PROTEIN 237 ML CAN PO SCH ×2 (08:00→20:00)
[2019-10-22] MEDS: LIDOCAINE 4% PATCH TOP SCH (08:43)
[2019-10-22] MEDS: ASPIRIN EC 81 MG TAB PO SCH (08:44)
[2019-10-22] MEDS: APIXABAN 5 MG TABLET PO SCH ×2 (08:44→20:29)
[2019-10-22] MEDS: MAGNESIUM OXIDE 400 MG TAB PO SCH ×2 (08:44→20:30)
[2019-10-22] MEDS: PANTOPRAZOLE 40MG TABLET PO SCH (08:44)
[2019-10-22] MEDS: ADVAIR IH SCH ×2 (09:35→20:29)
--- NOTE | 2019-10-22 14:45 | FAST ---
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 Elvis Munoz M.D. ADMISSION DIAGNOSIS: - Stroke 01 - Left Body (Right Brain) (01.1) Acute Ischemic Right MCA Stroke. EATING: EATING - STEP 1: Does the patient complete the activity by him/herself with no assistance (physical, verbal/nonverbal cueing, setup/clean-up)? No. EATING - STEP 2: Does the patient need only setup/clean-up assistance from one helper? No. EATING - STEP 3: Does the patient need only verbal/nonverbal cueing or touching/steadying/contact guard assistance fro m one helper? Yes. 1. [id number] ADMISSION PERFORMANCE: Supervision or touching assistance CODE: 04 ORAL HYGIENE: ORAL HYGIENE - STEP 1: Does the patient complete the activity by him/herself with no assistance (physical, verbal/nonverbal cueing, setup/clean-up)? No. ORAL HYGIENE - STEP 2: Does the patient need only setup/clean-up assistance from one helper? No. ORAL HYGIENE - STEP 3: Does the patient need only verbal/nonverbal cueing or touching/steadying/contact guard assistance fro m one helper? No. ORAL HYGIENE - STEP 4: Does the patient need physical assistance - for example lifting or trunk support from one helper - wi th the helper providing less than half of the effort? Yes. 1. [id number] ADMISSION PERFORMANCE: Partial/moderate assistance CODE: 03 TOILETING HYGIENE: TOILETING HYGIENE - STEP 1: Does the patient complete the activity by him/herself with no assistance (physical, verbal/nonverbal cueing, setup/clean-up)? No. TOILETING HYGIENE - STEP 2: Does the patient need only setup/clean-up assistance from one helper? No. TOILETING HYGIENE - STEP 3: Does the patient need only verbal/nonverbal cueing or touching/steadying/contact guard assistance fro m one helper? No. TOILETING HYGIENE - STEP 4: Does the patient need physical assistance - for example lifting or trunk support from one helper - wi th the helper providing less than half of the effort? No. TOILETING HYGIENE - STEP 5: Does the patient need physical assistance - for example lifting or trunk support from one helper - wi th the helper providing more than half of the effort? No. TOILETING HYGIENE - STEP 6: Does the helper provide all of the effort? OR Is the assistance of two or more helpers required to co mplete the activity? Yes. 1. [id number] ADMISSION PERFORMANCE: Dependent CODE: 01 BATHING: Not assessed/no information CODE: - DRESSING - UPPER BODY: DRESSING - UPPER BODY - STEP 1: Does the patient complete the activity by him/herself with no assistance (physical, verbal/nonverbal cueing, setup/clean-up)? No. DRESSING - UPPER BODY - STEP 2: Does the patient need only setup/clean-up assistance from one helper? No. DRESSING - UPPER BODY - STEP 3: Does the patient need only verbal/nonverbal cueing or touching/steadying/contact guard assistance fro m one helper? No. DRESSING - UPPER BODY - STEP 4: Does the patient need physical assistance - for example lifting or trunk support from one helper - wi th the helper providing less than half of the effort? No. DRESSING - UPPER BODY - STEP 5: Does the patient need physical assistance - for example lifting or trunk support from one helper - wi th the helper providing more than half of the effort? Yes. 1. [id number] ADMISSION PERFORMANCE: Substantial/maximal assistance CODE: 02 DRESSING - LOWER BODY: DRESSING - LOWER BODY - STEP 1: Does the patient complete the activity by him/herself with no assistance (physical, verbal/nonverbal cueing, setup/clean-up)? No. DRESSING - LOWER BODY - STEP 2: Does the patient need only setup/clean-up assistance from one helper? No. DRESSING - LOWER BODY - STEP 3: Does the patient need only verbal/nonverbal cueing or touching/steadying/contact guard assistance fro m one helper? No. DRESSING - LOWER BODY - STEP 4: Does the patient need physical assistance - for example lifting or trunk support from one helper - wi th the helper providing less than half of the effort? No. DRESSING - LOWER BODY - STEP 5: Does the patient need physical assistance - for example lifting or trunk support from one helper - wi th the helper providing more than half of the effort? No. DRESSING - LOWER BODY - STEP 6: Does the helper provide all of the effort? OR Is the assistance of two or more helpers required to co mplete the activity? Yes. 1. [id number] ADMISSION PERFORMANCE: Dependent CODE: 01 PUTTING ON/TAKING OFF FOOTWEAR: FOOTWEAR - STEP 1: Does the patient complete the activity by him/herself with no assistance (physical, verbal/nonverbal cueing, setup/clean-up)? No. FOOTWEAR - STEP 2: Does the patient need only setup/clean-up assistance from one helper? No. FOOTWEAR - STEP 3: Does the patient need only verbal/nonverbal cueing or touching/steadying/contact guard assistance fro m one helper? No. FOOTWEAR - STEP 4: Does the patient need physical assistance - for example lifting or trunk support from one helper - wi th the helper providing less than half of the effort? No. FOOTWEAR - STEP 5: Does the patient need physical assistance - for example lifting or trunk support from one helper - wi th the helper providing more than half of the effort? No. FOOTWEAR - STEP 6: Does the helper provide all of the effort? OR Is the assistance of two or more helpers required to co mplete the activity? Yes. 1. [id number] ADMISSION PERFORMANCE: Dependent CODE: 01 DOES THE PATIENT USE A WHEELCHAIR/SCOOTER? CODE: EXPR INDICATE THE TYPE OF WHEELCHAIR/SCOOTER USED: CODE: EXPR INDICATE THE TYPE OF WHEELCHAIR/SCOOTER USED: CODE: EXPR BLADDER AND BOWEL: H350. BLADDER CONTINENCE (3-DAY ASSESSMENT PERIOD): Always incontinent CODE: 4 H400. BOWEL CONTINENCE (3-DAY ASSESSMENT PERIOD): Occasionally incontinent (one episode of bowel incontinence) CODE: 1 SIGNATURE PANEL: The following modified sections: 1. [id number] Admission Performance, 1. [id number] Admission Performance, 1. [id number] Admission Performance, 1. [id number] Admission Performance, 1. [id number] Admission Performance, 1. [id number] Admission Performance, 1. [id number] Admission Performance, 1. [id number] Admission Performance , 1. [id number] Admission Performance, 1. [id number] Admission Performance, 1. [id number] Admission Performanc e, H350. Bladder Continence (3-day assessment period), H400. Bowel Continence (3-day assessment perio d) were [electronically] signed by Deana Chavez C.N.A. on SunOct 22 2019 14:44:56 GMT-0500 (Central Daylight Time)
--- NOTE | 2019-10-22 16:49 | R.PN ---
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 Pt denied any Shortness of Breath. She denies pain, admits to mild difficulty swallowing. Marked left sided weakness 0/5 in the arm, 1-2 /5 in the left leg with significant left sided neglect. She has a modified barium study scheduled. Ma x to total assistance needed to bed mobility, transfers and standing in the parallel bars. She is working well with speech therapy. She has difficulty identifying objects in her left visual fi eld. She did balance and bed mobility training with moderate to maximum assistance. Repeat bilateral lower extremity dopplers show mild partial subacute thrombus in left anterior tibial vein. She is on Eliquis 5 mg bid and aspirin 81 mg bid. VITAL SIGNS Temperature: 97.2 F SBP/DBP: 141//58 Pulse: 71 Resp: 16 MEDICATION ALLERGIES: No Known Drug Allergies (NKDA) ENVIRONMENTAL ALLERGIES: None Known - Substance Allergies None Known - Other Allergies None Known NURSING: - Shower allowing shower - Bladder care per protocol - Skin care per protocol PRECAUTIONS: - Weight Bearing Precaution WBAT left LE ACTIVITIES OOB only with supervision THERAPIES: - Occupational Therapy Cognitive Retraining. Visual Perceptual Training. - Dietary and Nutrition Adequate Nutrition. Nutritional Education. Nutritional Supplements. - Speech Therapy Cognitive Training. Dysphagia Therapy. Expressive Language Skills. Memory Strategies. Receptive Langu age Skills. Speech Intelligibility Training. PHYSICAL EXAM - Gen Alert and awake Lying in bed No apparent distress Oriented to: person, time, and place - Skin No skin breakdown. Normacephalic - Eyes No abnormalities - ENMT No abnormalities - Neck No abnormalities - CVS RRR - Chest Mildly decreased breath sounds bilaterally. - Abd Soft - GI Non distended Deferred - No abnormalities - Ext Mild left lower extremity edema. - MSK 0-1+/5 weakness in left upper and lower extremity. - Neuro 0-1+/5 weakness in left upper and lower extremity. Marked left jorge-neglect. - Psych No abnormalities ASSESSMENT: Pt. is a 84 yo Right-handed white female.On 09/15/2019 Pt. presented to [facility] with sudden onset of left-side weakness.On 09/15/2019 she was admitted to [facility] with diagnosis Acute I schemic Right MCA Stroke.Her impairment category is Stroke 01 - Left Body (Right Brain) (01.1).Pre-m orbidly, Pt. was independent/mod-I in Locomotion, Safety Awareness, Balance, Social Cognition, Transf ers Control, Sphincter Control, Self-Care, Communication, and Endurance; and she had good Locomotion, Balance, Safety Awareness, Social Cognition, Transfers Control, Sphincter Control, Self-Care, Commun ication, and Endurance.Currently, she has deficits of Locomotion, Safety Awareness, Balance, Transfer s Control, Self-Care, Communication, and Endurance.Pt. is now referred to [facility] for acute in-patient rehabilitation in order to maximize patient's functional independence in activities of daily living, strength, ROM, and mobility.- Rehab Goal Patient has realistic goal of being discharged at assistance level 6-Hunter to reside at Home with Fam fernando/Relatives. MDM/PLAN: - Physical Therapy Gait dysfunction - to improve, our physical therapists will perform initial evaluation of pt's statu s upon admission and devise an individualized program for Gait Training, and Wheel Chair mobility Inability to transfer - to improve, our physical therapists will perform initial evaluation of pt's status upon admission and devise an individualized program for Bed mobility Need for home safety evaluation - to improve, our physical therapists will perform initial evaluatio n of pt's status upon admission and devise an individualized program for Home Evaluation Need in caregiver upon discharge - to improve, our physical therapists will perform initial evaluati on of pt's status upon admission and devise an individualized program for Caregiver Training New precaution - to improve, our physical therapists will perform initial evaluation of pt's status upon admission and devise an individualized program for Patient precaution education Poor balance - to improve, our physical therapists will perform initial evaluation of pt's status up on admission and devise an individualized program for Balance Training Poor endurance - to improve, our physical therapists will perform initial evaluation of pt's status upon admission and devise an individualized program for Endurance Training Weakness - to improve, our physical therapists will perform initial evaluation of pt's status upon a dmission and devise an individualized program for Aquatic Therapy, Neuromuscular Reeducation, and Str engthening Achieving independence - to improve, our physical therapists will perform initial evaluation of pt's status upon admission and devise an individualized program for Community Reintegration Activities - Occupational Therapy ADL deficits - to improve, our occupation therapists will perform initial evaluation of pt's status upon admission and devise an individualized program for Bathing, Bed mobility, Community Reintegratio n, Cooking, Dressing, Eating, Fine Motor Skills, Grooming, Homemaking, Kitchen Mobility, Laundry, Pat ient Education, Safety Awareness, Splinting - Positioning, Transfers(Toilet, Tub, Shower), and Wheel Chair Management Need for post anesthesia care unit nurse - to improve, our occupation therapists will perform initial evaluation of pt's status upon admission and devise an individualized program for Caregiver Training Weakness - to improve, our occupation therapists will perform initial evaluation of pt's status upon admission and devise an individualized program for Aquatic Therapy, Balance, Endurance, UE ROM, and UE strengthening - Other See attached MAR (Medication Administration Record) See attached MAR (Medication Administration Record) Nai Ragland.pdf - Diet Type Continue Regular - Diet - Liquid Texture Continue Thin - Tube Feed Continue N/A - Bladder care per protocol - Weight Bearing Precaution WBAT left LE - Skin care per protocol - Diet - Solid Texture Continue Regular Continue Mechanical Soft - Shower allowing shower for Dementia, TBI, Stroke, or others FUNCTIONAL STATUS: UPDATED AT WEEKLY TEAM CONFERENCE - Bladder Same accident frequency: 7-Ind - No accidents in the past 7 days - Bowel Same accident frequency: 7-Ind - No accidents in the past 7 days - Walking Same score based on distance walked: 0(N/A) - Wheelchair Same score based on distance traveled: 0(N/A) FUNCTIONAL STATUS: - Self-Care A. Eating modA B. Grooming modA C. Bathing maxA D. Dressing - Upper modA E. Dressing - Lower maxA F. Toileting maxA - Sphincter Control G. Bladder control modA H. Bowel control modA - Transfers Control I. Bed/Chair/Wheelchair Dep J. Toilet Dep K. Tub/Shower Dep - Locomotion L. Walk/Wheelchair (B) Dep M. Stairs ADNO - Communication N. Comprehension (B) maxA O. Expression (B) modA - Social Cognition P. Social Interaction modA Q. Problem Solving maxA R. Memory modA - Endurance Fair - Balance Poor - Safety Awareness Poor QI SCORES: - Self-Care A. Eating 04-Supervision or touching assistance B. Oral hygiene 04-Supervision or touching assistance C. Toileting hygiene 02-Substantial/maximal assistance E. Shower/bathe self 02-Substantial/maximal assistance F. Upper body dressing 02-Substantial/maximal assistance G. Lower body dressing 01-Dependent H. Putting on/taking off footwear 01-Dependent - Mobility A. Roll left and right 02-Substantial/maximal assistance B. Sit to lying 02-Substantial/maximal assistance C. Lying to sitting on side of bed 02-Substantial/maximal assistance D. Sit to stand 02-Substantial/maximal assistance E. Chair/[id number] transfer 02-Substantial/maximal assistance F. Toilet transfer 02-Substantial/maximal assistance G. Car transfer 10-Not attempted due to environmental limitations I. Walk 10 feet 88-Not attempted due to medical condition or safety concerns J. Walk 50 feet with two turns 88-Not attempted due to medical condition or safety concerns K. Walk 150 feet 88-Not attempted due to medical condition or safety concerns L. Walking 10 feet on uneven surfaces 88-Not attempted due to medical condition or safety concerns M. 1 step (curb) 88-Not attempted due to medical condition or safety concerns N. 4 steps 88-Not attempted due to medical condition or safety concerns O. 12 steps 88-Not attempted due to medical condition or safety concerns P. Picking up object 88-Not attempted due to medical condition or safety concerns R. Wheel 50 feet with two turns 88-Not attempted due to medical condition or safety concerns S. Wheel 150 feet 88-Not attempted due to medical condition or safety concerns - Bladder and Bowel Bladder continence 0-Always continent Bowel continence 0-Always continent - Endurance Poor - Balance Poor - Safety Awareness Poor CURRENT FUNC. DEFICITS: Self-Care, Mobility, Endurance, Balance, and Safety Awareness SIGNATURE PANEL: (CDT)
[2019-10-22] MEDS: TRAMADOL HCL 50 MG TAB PO PRN (17:45)
[2019-10-22] MEDS: ATORVASTATIN 80 MG TAB PO SCH (20:29)
[2019-10-22] MEDS: TAMSULOSIN 0.4 MG SR CAP PO SCH (20:29)
[2019-10-22] MEDS: HYDROCODONE/APAP 5/325 MG TAB PO PRN (21:58)
[2019-10-23] MEDS: LABETALOL HCL 100 MG TAB PO SCH ×3 (05:14→21:35)
[2019-10-23 06:22] LABS: Absolute Lymphocytes (CBC) 1.1 K/uL (0.7-4.9); Basophils % 0.7 % (0-1.3); Hematocrit 29.4 % (36.0-45.0); Lymphocytes % 22.2 % (15.3-44.8); MPV 8.2 fL (7.6-11.3)
[2019-10-23 06:47] LABS: Albumin 2.4 g/dL (3.4-5.0); Magnesium 1.7 mg/dL (1.8-2.4); Potassium 3.7 mmol/L (3.5-5.1); Prealbumin 17.2 mg/dL (20-40)
[2019-10-23] MEDS: LIDOCAINE 4% PATCH TOP SCH (07:04)
[2019-10-23] MEDS: PROMOD 30 ML DOSE PO SCH ×2 (08:00→19:54)
[2019-10-23] MEDS: ENSURE HIGH PROTEIN 237 ML CAN PO SCH ×2 (08:00→19:54)
[2019-10-23] MEDS: ADVAIR IH SCH ×2 (08:00→19:53)
[2019-10-23] MEDS: ASPIRIN EC 81 MG TAB PO SCH (08:07)
[2019-10-23] MEDS: PANTOPRAZOLE 40MG TABLET PO SCH (08:07)
[2019-10-23] MEDS: MAGNESIUM OXIDE 400 MG TAB PO SCH ×2 (08:07→19:54)
[2019-10-23] MEDS: HYDROCODONE/APAP 5/325 MG TAB PO PRN (08:07)
[2019-10-23] MEDS: APIXABAN 5 MG TABLET PO SCH ×2 (08:07→19:54)
[2019-10-23] MEDS: VALSARTAN 80 MG TAB PO SCH (08:09)
--- NOTE | 2019-10-23 17:14 | FAST ---
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 Elvis Munoz M.D. ADMISSION DIAGNOSIS: - Stroke 01 - Left Body (Right Brain) (01.1) Acute Ischemic Right MCA Stroke. ROLL LEFT AND RIGHT: ROLL LEFT AND RIGHT - STEP 1: Does the patient complete the activity by him/herself with no assistance (physical, verbal/nonverbal cueing, setup/clean-up)? No. ROLL LEFT AND RIGHT - STEP 2: Does the patient need only setup/clean-up assistance from one helper? No. ROLL LEFT AND RIGHT - STEP 3: Does the patient need only verbal/nonverbal cueing or touching/steadying/contact guard assistance fro m one helper? No. ROLL LEFT AND RIGHT - STEP 4: Does the patient need physical assistance - for example lifting or trunk support from one helper - wi th the helper providing less than half of the effort? Yes. 1. [id number] ADMISSION PERFORMANCE: Partial/moderate assistance CODE: 03 SIT TO LYING: SIT TO LYING - STEP 1: Does the patient complete the activity by him/herself with no assistance (physical, verbal/nonverbal cueing, setup/clean-up)? No. SIT TO LYING - STEP 2: Does the patient need only setup/clean-up assistance from one helper? No. SIT TO LYING - STEP 3: Does the patient need only verbal/nonverbal cueing or touching/steadying/contact guard assistance fro m one helper? No. SIT TO LYING - STEP 4: Does the patient need physical assistance - for example lifting or trunk support from one helper - wi th the helper providing less than half of the effort? Yes. 1. [id number] ADMISSION PERFORMANCE: Partial/moderate assistance CODE: 03 LYING TO SITTING: LYING TO SITTING ON SIDE OF BED - STEP 1: Does the patient complete the activity by him/herself with no assistance (physical, verbal/nonverbal cueing, setup/clean-up)? No. LYING TO SITTING ON SIDE OF BED - STEP 2: Does the patient need only setup/clean-up assistance from one helper? No. LYING TO SITTING ON SIDE OF BED - STEP 3: Does the patient need only verbal/nonverbal cueing or touching/steadying/contact guard assistance fro m one helper? No. LYING TO SITTING ON SIDE OF BED - STEP 4: Does the patient need physical assistance - for example lifting or trunk support from one helper - wi th the helper providing less than half of the effort? No. LYING TO SITTING ON SIDE OF BED - STEP 5: Does the patient need physical assistance - for example lifting or trunk support from one helper - wi th the helper providing more than half of the effort? Yes. 1. [id number] ADMISSION PERFORMANCE: Substantial/maximal assistance CODE: 02 SIT TO STAND: SIT TO STAND - STEP 1: Does the patient complete the activity by him/herself with no assistance (physical, verbal/nonverbal cueing, setup/clean-up)? No. SIT TO STAND - STEP 2: Does the patient need only setup/clean-up assistance from one helper? No. SIT TO STAND - STEP 3: Does the patient need only verbal/nonverbal cueing or touching/steadying/contact guard assistance fro m one helper? No. SIT TO STAND - STEP 4: Does the patient need physical assistance - for example lifting or trunk support from one helper - wi th the helper providing less than half of the effort? No. SIT TO STAND - STEP 5: Does the patient need physical assistance - for example lifting or trunk support from one helper - wi th the helper providing more than half of the effort? Yes. 1. [id number] ADMISSION PERFORMANCE: Substantial/maximal assistance CODE: 02 TRANSFERS: BED, CHAIR: CHAIR/[id number] TRANSFER - STEP 1: Does the patient complete the activity by him/herself with no assistance (physical, verbal/nonverbal cueing, setup/clean-up)? No. CHAIR/[id number] TRANSFER - STEP 2: Does the patient need only setup/clean-up assistance from one helper? No. CHAIR/[id number] TRANSFER - STEP 3: Does the patient need only verbal/nonverbal cueing or touching/steadying/contact guard assistance fro m one helper? No. CHAIR/[id number] TRANSFER - STEP 4: Does the patient need physical assistance - for example lifting or trunk support from one helper - wi th the helper providing less than half of the effort? No. CHAIR/[id number] TRANSFER - STEP 5: Does the patient need physical assistance - for example lifting or trunk support from one helper - wi th the helper providing more than half of the effort? Yes. 1. [id number] ADMISSION PERFORMANCE: Substantial/maximal assistance CODE: 02 TRANSFER TOILET: TOILET TRANSFER - STEP 1: Does the patient complete the activity by him/herself with no assistance (physical, verbal/nonverbal cueing, setup/clean-up)? No. TOILET TRANSFER - STEP 2: Does the patient need only setup/clean-up assistance from one helper? No. TOILET TRANSFER - STEP 3: Does the patient need only verbal/nonverbal cueing or touching/steadying/contact guard assistance fro m one helper? No. TOILET TRANSFER - STEP 4: Does the patient need physical assistance - for example lifting or trunk support from one helper - wi th the helper providing less than half of the effort? No. TOILET TRANSFER - STEP 5: Does the patient need physical assistance - for example lifting or trunk support from one helper - wi th the helper providing more than half of the effort? Yes. 1. [id number] ADMISSION PERFORMANCE: Substantial/maximal assistance CODE: 02 TRANSFERS: CAR: Not attempted due to medical condition or safety concerns CODE: 88 WALK 10 FEET: WALK 10 FEET - STEP 1: Does the patient complete the activity by him/herself with no assistance (physical, verbal/nonverbal cueing, setup/clean-up)? No. WALK 10 FEET - STEP 2: Does the patient need only setup/clean-up assistance from one helper? No. WALK 10 FEET - STEP 3: Does the patient need only verbal/nonverbal cueing or touching/steadying/contact guard assistance fro m one helper? No. WALK 10 FEET - STEP 4: Does the patient need physical assistance - for example lifting or trunk support from one helper - wi th the helper providing less than half of the effort? No. WALK 10 FEET - STEP 5: Does the patient need physical assistance - for example lifting or trunk support from one helper - wi th the helper providing more than half of the effort? Yes. 1. [id number] ADMISSION PERFORMANCE: Substantial/maximal assistance CODE: 02 WALK 50 FEET: Not attempted due to medical condition or safety concerns CODE: 88 WALK 150 FEET: Not attempted due to medical condition or safety concerns CODE: 88 WALK 10 FEET UNEVEN: Not attempted due to medical condition or safety concerns CODE: 88 1 STEP (CURB): Not attempted due to medical condition or safety concerns CODE: 88 PICKING UP OBJECT: Not attempted due to medical condition or safety concerns CODE: 88 DOES THE PATIENT USE A WHEELCHAIR/SCOOTER? Q1. DOES THE PATIENT USE A WHEELCHAIR/SCOOTER?: Yes CODE: 1 WHEEL 50 FEET WITH TWO TURNS: Not attempted due to medical condition or safety concerns CODE: 88 INDICATE THE TYPE OF WHEELCHAIR/SCOOTER USED: CODE: EXPR WHEEL 150 FEET: Not attempted due to medical condition or safety concerns CODE: 88 INDICATE THE TYPE OF WHEELCHAIR/SCOOTER USED: CODE: EXPR BLADDER AND BOWEL: CODE: EXPR CODE: EXPR SIGNATURE PANEL: The following modified sections: 1. [id number] Admission Performance, 1. [id number] Admission Performance, 1. [id number] Admission Performance, 1. [id number] Admission Performance, 1. [id number] Admission Performance, 1. [id number] Admission Performance, 1. [id number] Admission Performance, 1. [id number] Admission Performance , 1. [id number] Admission Performance, 1. [id number] Admission Performance, Q1. Does the patient use a whee lchair/scooter?, Code were [electronically] signed by Anatoliy Abdul PT on SunOct 23 2019 17:13:2 8 GMT-0500 (Central Daylight Time)
--- NOTE | 2019-10-23 18:13 | R.PN ---
ENCOUNTER DATE AND TIME: 10/23/2019 18:06 (CDT) NAME NAI RAGLAND DATE OF : 1935 DATE OF ADMISSION: 09/27/2019 12:34 (APPRENTICE ELECTRICIAN) Acute Ischemic Right MCA StrokeCHIEF COMPLAINT: Dense left face, arm and leg weakness, dysarthria and dysphagia SUBJECTIVE: Pt denied any depression. Pt denied any Shortness of Breath. She denies pain, admits to mild difficulty swallowing. Marked left sided weakness 0/5 in the arm, 1-2 /5 in the left leg with significant left sided neglect. She is working well with speech therapy. She has difficulty identifying objects in her left visual fi eld. She did balance and bed mobility training with moderate to maximum assistance. Repeat bilateral lower extremity dopplers show mild partial subacute thrombus in left anterior tibial vein. She is on Eliquis 5 mg bid and aspirin 81 mg bid. WBC 4.9, Hgb 9.8, Mg 1.7, prealbumin 17.2. Performed stand-pivot transfers with a rolling walker and maximum assistance. VITAL SIGNS Temperature: 97.2 F SBP/DBP: 143/60 Pulse: 69 Resp: 16 MEDICATION ALLERGIES: No Known Drug Allergies (NKDA) ENVIRONMENTAL ALLERGIES: None Known - Substance Allergies None Known - Other Allergies None Known NURSING: - Shower allowing shower - Bladder care per protocol - Skin care per protocol PRECAUTIONS: - Weight Bearing Precaution WBAT left LE ACTIVITIES OOB only with supervision THERAPIES: - Occupational Therapy Cognitive Retraining. Visual Perceptual Training. - Dietary and Nutrition Adequate Nutrition. Nutritional Education. Nutritional Supplements. - Speech Therapy Cognitive Training. Dysphagia Therapy. Expressive Language Skills. Memory Strategies. Receptive Langu age Skills. Speech Intelligibility Training. PHYSICAL EXAM - Gen Alert and awake Lying in bed No apparent distress Oriented to: person, time, and place - Skin No skin breakdown. Normacephalic - Eyes No abnormalities - ENMT No abnormalities - Neck No abnormalities - CVS RRR - Chest Mildly decreased breath sounds bilaterally. - Abd Soft - GI Non distended Deferred - No abnormalities - Ext Mild left lower extremity edema. - MSK 0-1+/5 weakness in left upper and lower extremity. - Neuro 0-1+/5 weakness in left upper and lower extremity. Marked left jorge-neglect. - Psych No abnormalities ASSESSMENT: Pt. is a 84 yo Right-handed white female.On 09/15/2019 Pt. presented to [facility] with sudden onset of left-side weakness.On 09/15/2019 she was admitted to [facility] with diagnosis Acute I schemic Right MCA Stroke.Her impairment category is Stroke 01 - Left Body (Right Brain) (01.1).Pre-m orbidly, Pt. was independent/mod-I in Locomotion, Safety Awareness, Balance, Social Cognition, Transf ers Control, Sphincter Control, Self-Care, Communication, and Endurance; and she had good Locomotion, Balance, Safety Awareness, Social Cognition, Transfers Control, Sphincter Control, Self-Care, Commun ication, and Endurance.Currently, she has deficits of Locomotion, Safety Awareness, Balance, Transfer s Control, Self-Care, Communication, and Endurance.Pt. is now referred to [facility] for acute in-patient rehabilitation in order to maximize patient's functional independence in activities of daily living, strength, ROM, and mobility.- Rehab Goal Patient has realistic goal of being discharged at assistance level 6-Hunter to reside at Home with Fam fernando/Relatives. MDM/PLAN: - Physical Therapy Gait dysfunction - to improve, our physical therapists will perform initial evaluation of pt's statu s upon admission and devise an individualized program for Gait Training, and Wheel Chair mobility Inability to transfer - to improve, our physical therapists will perform initial evaluation of pt's status upon admission and devise an individualized program for Bed mobility Need for home safety evaluation - to improve, our physical therapists will perform initial evaluatio n of pt's status upon admission and devise an individualized program for Home Evaluation Need in caregiver upon discharge - to improve, our physical therapists will perform initial evaluati on of pt's status upon admission and devise an individualized program for Caregiver Training New precaution - to improve, our physical therapists will perform initial evaluation of pt's status upon admission and devise an individualized program for Patient precaution education Poor balance - to improve, our physical therapists will perform initial evaluation of pt's status up on admission and devise an individualized program for Balance Training Poor endurance - to improve, our physical therapists will perform initial evaluation of pt's status upon admission and devise an individualized program for Endurance Training Weakness - to improve, our physical therapists will perform initial evaluation of pt's status upon a dmission and devise an individualized program for Aquatic Therapy, Neuromuscular Reeducation, and Str engthening Achieving independence - to improve, our physical therapists will perform initial evaluation of pt's status upon admission and devise an individualized program for Community Reintegration Activities - Occupational Therapy ADL deficits - to improve, our occupation therapists will perform initial evaluation of pt's status upon admission and devise an individualized program for Bathing, Bed mobility, Community Reintegratio n, Cooking, Dressing, Eating, Fine Motor Skills, Grooming, Homemaking, Kitchen Mobility, Laundry, Pat ient Education, Safety Awareness, Splinting - Positioning, Transfers(Toilet, Tub, Shower), and Wheel Chair Management Need for social worker palliative care - to improve, our occupation therapists will perform initial evaluation of pt's status upon admission and devise an individualized program for Caregiver Training Weakness - to improve, our occupation therapists will perform initial evaluation of pt's status upon admission and devise an individualized program for Aquatic Therapy, Balance, Endurance, UE ROM, and UE strengthening - Other See attached MAR (Medication Administration Record) See attached MAR (Medication Administration Record) Nai Ragland.pdf - Diet Type Continue Regular - Diet - Liquid Texture Continue Thin - Tube Feed Continue N/A - Bladder care per protocol - Weight Bearing Precaution WBAT left LE - Skin care per protocol - Diet - Solid Texture Continue Regular Continue Mechanical Soft - Shower allowing shower for Dementia, TBI, Stroke, or others FUNCTIONAL STATUS: UPDATED AT WEEKLY TEAM CONFERENCE - Bladder Same accident frequency: 7-Ind - No accidents in the past 7 days - Bowel Same accident frequency: 7-Ind - No accidents in the past 7 days - Walking Same score based on distance walked: 0(N/A) - Wheelchair Same score based on distance traveled: 0(N/A) FUNCTIONAL STATUS: - Self-Care A. Eating modA B. Grooming modA C. Bathing maxA D. Dressing - Upper modA E. Dressing - Lower maxA F. Toileting maxA - Sphincter Control G. Bladder control modA H. Bowel control modA - Transfers Control I. Bed/Chair/Wheelchair Dep J. Toilet Dep K. Tub/Shower Dep - Locomotion L. Walk/Wheelchair (B) Dep M. Stairs ADNO - Communication N. Comprehension (B) maxA O. Expression (B) modA - Social Cognition P. Social Interaction modA Q. Problem Solving maxA R. Memory modA - Endurance Fair - Balance Poor - Safety Awareness Poor QI SCORES: - Self-Care A. Eating 04-Supervision or touching assistance B. Oral hygiene 04-Supervision or touching assistance C. Toileting hygiene 02-Substantial/maximal assistance E. Shower/bathe self 02-Substantial/maximal assistance F. Upper body dressing 02-Substantial/maximal assistance G. Lower body dressing 01-Dependent H. Putting on/taking off footwear 01-Dependent - Mobility A. Roll left and right 02-Substantial/maximal assistance B. Sit to lying 02-Substantial/maximal assistance C. Lying to sitting on side of bed 02-Substantial/maximal assistance D. Sit to stand 02-Substantial/maximal assistance E. Chair/[id number] transfer 02-Substantial/maximal assistance F. Toilet transfer 02-Substantial/maximal assistance G. Car transfer 10-Not attempted due to environmental limitations I. Walk 10 feet 88-Not attempted due to medical condition or safety concerns J. Walk 50 feet with two turns 88-Not attempted due to medical condition or safety concerns K. Walk 150 feet 88-Not attempted due to medical condition or safety concerns L. Walking 10 feet on uneven surfaces 88-Not attempted due to medical condition or safety concerns M. 1 step (curb) 88-Not attempted due to medical condition or safety concerns N. 4 steps 88-Not attempted due to medical condition or safety concerns O. 12 steps 88-Not attempted due to medical condition or safety concerns P. Picking up object 88-Not attempted due to medical condition or safety concerns R. Wheel 50 feet with two turns 88-Not attempted due to medical condition or safety concerns S. Wheel 150 feet 88-Not attempted due to medical condition or safety concerns - Bladder and Bowel Bladder continence 0-Always continent Bowel continence 0-Always continent - Endurance Poor - Balance Poor - Safety Awareness Poor CURRENT FUNC. DEFICITS: Self-Care, Mobility, Endurance, Balance, and Safety Awareness SIGNATURE PANEL: (CDT)
[2019-10-23] MEDS: ATORVASTATIN 80 MG TAB PO SCH (21:35)
[2019-10-23] MEDS: TAMSULOSIN 0.4 MG SR CAP PO SCH (21:35)
[2019-10-24] MEDS: LABETALOL HCL 100 MG TAB PO SCH ×3 (05:17→22:00)
[2019-10-24] MEDS: ENSURE HIGH PROTEIN 237 ML CAN PO SCH ×2 (08:00→20:00)
[2019-10-24] MEDS: PROMOD 30 ML DOSE PO SCH ×2 (08:00→20:00)
[2019-10-24] MEDS: MAGNESIUM OXIDE 400 MG TAB PO SCH ×2 (08:00→21:12)
[2019-10-24] MEDS: ADVAIR IH SCH ×2 (08:31→21:15)
[2019-10-24] MEDS: LIDOCAINE 4% PATCH TOP SCH (08:31)
[2019-10-24] MEDS: VALSARTAN 80 MG TAB PO SCH (08:33)
[2019-10-24] MEDS: APIXABAN 5 MG TABLET PO SCH ×2 (08:34→21:13)
[2019-10-24] MEDS: ASPIRIN EC 81 MG TAB PO SCH (08:34)
[2019-10-24] MEDS: TRAMADOL HCL 50 MG TAB PO PRN ×2 (08:35→21:31)
[2019-10-24] MEDS: PANTOPRAZOLE 40MG TABLET PO SCH (08:37)
--- NOTE | 2019-10-24 10:12 | P.RH.PN ---
Estimated Length of Stay: 33 Expected Discharge Date: 10/28/19 Discharge Disposition Plan: Home Family Support: Yes Custodial Goal: Mobility, Transfers, Self Care Vital Signs: Last Vital Signs Temp 96.5 F L 10/24/19 07:10 Pulse 80 10/24/19 08:33 Resp 16 10/24/19 09:35 BP 152/68 H 10/24/19 08:33 Pulse Ox 96 10/24/19 09:35 Laboratory: Laboratory Last Values WBC 4.9 K/uL (4.3-10.9) 10/23/19 05:56 RBC 3.00 M/uL (3.86-4.86) L 10/23/19 05:56 Hgb 9.8 g/dL (12.0-15.0) L 10/23/19 05:56 Hct 29.4 % (36.0-45.0) L 10/23/19 05:56 MCV 98.0 fL (80-100) 10/23/19 05:56 MCH 32.9 pg (27.0-35.0) 10/23/19 05:56 MCHC 33.6 g/dL (32.0-36.0) 10/23/19 05:56 RDW 14.6 % (12.1-15.2) 10/23/19 05:56 Plt Count 285 K/uL (152-406) 10/23/19 05:56 MPV 8.2 fL (7.6-11.3) 10/23/19 05:56 Neutrophils % 60.1 % (41.7-73.7) 10/23/19 05:56 Lymphocytes % 22.2 % (15.3-44.8) 10/23/19 05:56 Monocytes % 10.9 % (3.3-12.3) 10/23/19 05:56 Eosinophils % 6.1 % (0-4.4) H 10/23/19 05:56 Basophils % 0.7 % (0-1.3) 10/23/19 05:56 Absolute Neutrophils 3.0 K/uL (1.8-8.0) 10/23/19 05:56 Segmented Neutrophils 69 % (40-80) 10/02/19 05:42 Absolute Lymphocytes 1.1 K/uL (0.7-4.9) 10/23/19 05:56 Lymphocytes 24 % (15-42) 10/02/19 05:42 Monocytes 5 % (0-10) 10/02/19 05:42 Absolute Monocytes 0.5 K/uL (0.1-1.3) 10/23/19 05:56 Absolute Eosinophils 0.3 K/uL (0-0.5) 10/23/19 05:56 Absolute Basophils 0.0 K/uL (0-0.5) 10/23/19 05:56 Metamyelocytes 2 % (0-0) H 10/02/19 05:42 Morphology Comment Not seen (NOT SEEN) 10/02/19 05:42 Sodium 140 mmol/L (136-145) 10/23/19 05:56 Potassium 3.7 mmol/L (3.5-5.1) 10/23/19 05:56 Chloride 107 mmol/L (98-107) 10/23/19 05:56 Carbon Dioxide 29 mmol/L (21-32) 10/23/19 05:56 BUN 9 mg/dL (7-18) 10/23/19 05:56 Creatinine 0.68 mg/dL (0.55-1.3) 10/23/19 05:56 Estimated GFR 82 mL/min (=/>90) L 10/23/19 05:56 Glucose 96 mg/dL (74-106) 10/23/19 05:56 Calcium 9.0 mg/dL (8.5-10.1) 10/23/19 05:56 Magnesium 1.7 mg/dL (1.8-2.4) L 10/23/19 05:56 Albumin 2.4 g/dL (3.4-5.0) L 10/23/19 05:56 Prealbumin 17.2 mg/dL (20-40) L 10/23/19 05:56 Urine Color Yellow 09/28/19 11:00 Urine Appearance Turbid 09/28/19 11:00 Urine pH 6.0 (5.0-7.0) 09/28/19 11:00 Ur Specific Industry 1.015 (1.005-1.030) 09/28/19 11:00 Glucose (UA)(Auto) Negative (NEG) 09/28/19 11:00 Urine Ketones Negative (NEG) 09/28/19 11:00 Urine Blood 3+ (NEG) H 09/28/19 11:00 Urine Nitrite Positive (NEG) H 09/28/19 11:00 Urine Bilirubin Negative (NEG) 09/28/19 11:00 Urine Urobilinogen 0.2 mg/dL (0.2-1.0) 09/28/19 11:00 Ur Leukocyte Esterase 3+ (NEG) H 09/28/19 11:00 Urine RBC 20-50 /HPF (NONE SEEN) H 09/28/19 11:00 Urine WBC Loaded /HPF (<5) H 09/28/19 11:00 Ur Squamous Epith Cells <5 /HPF (NONE SEEN) 09/28/19 11:00 Urine Bacteria >50 /HPF (<20) H 09/28/19 11:00 Urine Culture Reflexed Not needed 09/28/19 11:00 Urine Total Protein 2+ (NEG) H 09/28/19 11:00 Weight: 154 lb 8 oz Wound Present: No Closed Surgical Incision Present: No Negative Pressure Wound Therapy Present: No Physician Update: Labs reviewed and are stable. She is limited with left arm movement and right arm use. May have family get a left arm cubital tunnel splint to help with left are contracture. She can walk with maximum assistance in bilateral platform walker. Medical Issues: LLE DVT - on Eliquis 5mg BID PO. Patient is incontinent daily with bladder and always continent with bowel. Pain Issues: PAtient is taking Duncan 5/325mg Q6H PO PRN and Tramadol 50mg Q6H PO PRN for pain. Functional Improvement: pt has demonstrated functional improvements this week. She has begun ambulating using bilateral platform RW. pt also has improved her ability to perform stand-pivot transfers. pt is coming up into standing more easily as well. pt's level of alertness and attention is improving. Skilled PT services continue to be necessary to improve functional performance, independence, and safety. Speech Therapy Update: Patient cont to present with mild cognitive-linguistic deficits and L side neglect. No dysphagia, tolerating regular diet. Patient is responding well to therapy. She is able to turn her head to left and identify objects in left visual field with cueing. Summary: Patient's care plan and intermediate designer goals have been reviewed and revised as necessary. Please see the Rehabilitation Signature page for all necessary signatures.
[2019-10-24] MEDS ORDERED: DOCUSATE NA/SENNA CONC 1 TAB PO SCH (21:00)
[2019-10-24] MEDS: ATORVASTATIN 80 MG TAB PO SCH (21:13)
[2019-10-24] MEDS: TAMSULOSIN 0.4 MG SR CAP PO SCH (21:13)
--- NOTE | 2019-10-25 02:35 | FAST ---
SHIFT START DATE/TIME: 10/24/2019 19:00 (CDT) SHIFT END DATE/TIME: 10/25/2019 07:00 (CDT) NAME JOSE DE LOS SANTOS DATE OF : 1935 DATE OF ADMISSION: 09/27/2019 12:34 (SPECIAL POPULATION PARAPROFESSIONAL) PHONE: AGE: 84 N# [id number] GENDER: Female ENCOUNTER PHYSICIAN: Dr. Elvis Munoz M.D. ADMISSION DIAGNOSIS: - Stroke 01 - Left Body (Right Brain) (01.1) Acute Ischemic Right MCA Stroke. EATING: Not assessed/no information CODE: - ORAL HYGIENE: Not assessed/no information CODE: - TOILETING HYGIENE: TOILETING HYGIENE - STEP 1: Does the patient complete the activity by him/herself with no assistance (physical, verbal/nonverbal cueing, setup/clean-up)? No. TOILETING HYGIENE - STEP 2: Does the patient need only setup/clean-up assistance from one helper? No. TOILETING HYGIENE - STEP 3: Does the patient need only verbal/nonverbal cueing or touching/steadying/contact guard assistance fro m one helper? No. TOILETING HYGIENE - STEP 4: Does the patient need physical assistance - for example lifting or trunk support from one helper - wi th the helper providing less than half of the effort? No. TOILETING HYGIENE - STEP 5: Does the patient need physical assistance - for example lifting or trunk support from one helper - wi th the helper providing more than half of the effort? No. TOILETING HYGIENE - STEP 6: Does the helper provide all of the effort? OR Is the assistance of two or more helpers required to co mplete the activity? Yes. 1. [id number] ADMISSION PERFORMANCE: Dependent CODE: 01 BATHING: Not assessed/no information CODE: - DRESSING - UPPER BODY: Not assessed/no information CODE: - DRESSING - LOWER BODY: Not assessed/no information CODE: - PUTTING ON/TAKING OFF FOOTWEAR: Not assessed/no information CODE: - ROLL LEFT AND RIGHT: ROLL LEFT AND RIGHT - STEP 1: Does the patient complete the activity by him/herself with no assistance (physical, verbal/nonverbal cueing, setup/clean-up)? No. ROLL LEFT AND RIGHT - STEP 2: Does the patient need only setup/clean-up assistance from one helper? No. ROLL LEFT AND RIGHT - STEP 3: Does the patient need only verbal/nonverbal cueing or touching/steadying/contact guard assistance fro m one helper? No. ROLL LEFT AND RIGHT - STEP 4: Does the patient need physical assistance - for example lifting or trunk support from one helper - wi th the helper providing less than half of the effort? Yes. 1. [id number] ADMISSION PERFORMANCE: Partial/moderate assistance CODE: 03 SIT TO LYING: Not assessed/no information CODE: - LYING TO SITTING: Not assessed/no information CODE: - SIT TO STAND: Not assessed/no information CODE: - TRANSFERS: BED, CHAIR: Not assessed/no information CODE: - TRANSFER TOILET: Not assessed/no information CODE: - TRANSFERS: CAR: Not assessed/no information CODE: - WALK 10 FEET: Not assessed/no information CODE: - 1 STEP (CURB): Not assessed/no information CODE: - PICKING UP OBJECT: Not assessed/no information CODE: - DOES THE PATIENT USE A WHEELCHAIR/SCOOTER? CODE: EXPR WHEEL 50 FEET WITH TWO TURNS: Not assessed/no information CODE: - INDICATE THE TYPE OF WHEELCHAIR/SCOOTER USED: CODE: EXPR WHEEL 150 FEET: Not assessed/no information CODE: - INDICATE THE TYPE OF WHEELCHAIR/SCOOTER USED: CODE: EXPR BLADDER AND BOWEL: H350. BLADDER CONTINENCE (3-DAY ASSESSMENT PERIOD): Always incontinent CODE: 4 H400. BOWEL CONTINENCE (3-DAY ASSESSMENT PERIOD): Always incontinent (no episodes of continent bowel movements) CODE: 3
[2019-10-25] MEDS: LABETALOL HCL 100 MG TAB PO SCH ×3 (05:32→19:48)
[2019-10-25 05:38] VITALS: BMI 35.2
[2019-10-25] MEDS: PANTOPRAZOLE 40MG TABLET PO SCH (07:39)
[2019-10-25] MEDS: LIDOCAINE 4% PATCH TOP SCH (07:41)
[2019-10-25] MEDS: PROMOD 30 ML DOSE PO SCH ×2 (08:00→19:47)
[2019-10-25] MEDS: ENSURE HIGH PROTEIN 237 ML CAN PO SCH ×2 (08:00→19:46)
[2019-10-25] MEDS ORDERED: FUROSEMIDE 20 MG TABLET PO SCH (08:00)
[2019-10-25] MEDS: TRAMADOL HCL 50 MG TAB PO PRN ×2 (08:59→19:45)
[2019-10-25] MEDS: ADVAIR IH SCH ×2 (08:59→19:44)
[2019-10-25] MEDS: MAGNESIUM OXIDE 400 MG TAB PO SCH ×2 (09:01→19:45)
[2019-10-25] MEDS: VALSARTAN 80 MG TAB PO SCH (09:02)
[2019-10-25] MEDS: ASPIRIN EC 81 MG TAB PO SCH (09:02)
[2019-10-25] MEDS: APIXABAN 5 MG TABLET PO SCH ×2 (09:03→19:46)
[2019-10-25] MEDS: HYDROCODONE/APAP 5/325 MG TAB PO PRN (15:21)
[2019-10-25] MEDS ORDERED: BENZONATATE 100 MG CAP PO PRN (15:33)
[2019-10-25] MEDS ORDERED: ALBUTEROL 2.5 MG/3 ML NEB SOL NEB PRN (15:35)
[2019-10-25] MEDS ORDERED: IPRATROPIUM BROM 0.5MG/2.5ML IH PRN (15:37)
[2019-10-25] MEDS ORDERED: ONDANSETRON 4 MG (ODT) TAB PO PRN (15:38)
[2019-10-25] MEDS ORDERED: DOCUSATE NA/SENNA CONC 1 TAB PO PRN (15:38)
[2019-10-25] MEDS ORDERED: METOCLOPRAMIDE 5 MG TAB PO PRN (15:40)
[2019-10-25] MEDS ORDERED: BISACODYL 10 MG RECTAL SUPP PR PRN (15:40)
[2019-10-25] MEDS ORDERED: LABETALOL HCL 100 MG TAB PO SCH (16:00)
[2019-10-25] MEDS: ATORVASTATIN 80 MG TAB PO SCH (19:44)
[2019-10-25] MEDS: DOCUSATE NA/SENNA CONC 1 TAB PO SCH (19:45)
[2019-10-25] MEDS: TAMSULOSIN 0.4 MG SR CAP PO SCH (19:45)
[2019-10-26] MEDS: LABETALOL HCL 100 MG TAB PO SCH ×3 (05:32→20:50)
[2019-10-26] MEDS: ENSURE HIGH PROTEIN 237 ML CAN PO SCH ×3 (08:00→20:00)
[2019-10-26] MEDS: PROMOD 30 ML DOSE PO SCH ×3 (08:00→20:00)
[2019-10-26] MEDS: MAGNESIUM OXIDE 400 MG TAB PO SCH ×2 (08:00→20:00)
[2019-10-26] MEDS: ADVAIR IH SCH ×2 (08:51→20:46)
[2019-10-26] MEDS: VALSARTAN 80 MG TAB PO SCH (08:51)
[2019-10-26] MEDS: LIDOCAINE 4% PATCH TOP SCH (08:51)
[2019-10-26] MEDS: APIXABAN 5 MG TABLET PO SCH ×2 (08:52→20:45)
[2019-10-26] MEDS: FUROSEMIDE 20 MG TABLET PO SCH (08:52)
[2019-10-26] MEDS: PANTOPRAZOLE 40MG TABLET PO SCH (08:52)
[2019-10-26] MEDS: ASPIRIN EC 81 MG TAB PO SCH (08:52)
[2019-10-26] MEDS: TRAMADOL HCL 50 MG TAB PO PRN (10:17)
[2019-10-26] MEDS: HYDROCODONE/APAP 5/325 MG TAB PO PRN (13:45)
[2019-10-26] MEDS ORDERED: FLEET ENEMA ADULT PR PRN (14:57)
[2019-10-26] MEDS ORDERED: MAGNESIUM HYDROXIDE 8% 30 ML PO PRN (17:27)
[2019-10-26] MEDS: ATORVASTATIN 80 MG TAB PO SCH (20:45)
[2019-10-26] MEDS: DOCUSATE NA/SENNA CONC 1 TAB PO SCH (20:46)
[2019-10-26] MEDS: TAMSULOSIN 0.4 MG SR CAP PO SCH (20:46)
[2019-10-27] MEDS: TRAMADOL HCL 50 MG TAB PO PRN ×2 (01:08→12:07)
[2019-10-27] MEDS: LABETALOL HCL 100 MG TAB PO SCH ×3 (05:03→21:46)
[2019-10-27] MEDS: PANTOPRAZOLE 40MG TABLET PO SCH (07:11)
[2019-10-27] MEDS: HYDROCODONE/APAP 5/325 MG TAB PO PRN (07:11)
[2019-10-27] MEDS: VALSARTAN 80 MG TAB PO SCH (07:13)
[2019-10-27] MEDS: ADVAIR IH SCH ×2 (07:13→20:31)
[2019-10-27] MEDS: MAGNESIUM OXIDE 400 MG TAB PO SCH ×2 (07:13→20:32)
[2019-10-27] MEDS: FUROSEMIDE 20 MG TABLET PO SCH (07:14)
[2019-10-27] MEDS: ASPIRIN EC 81 MG TAB PO SCH (07:15)
[2019-10-27] MEDS: APIXABAN 5 MG TABLET PO SCH ×2 (07:15→20:33)
[2019-10-27] MEDS: ENSURE HIGH PROTEIN 237 ML CAN PO SCH ×2 (07:15→20:00)
[2019-10-27] MEDS: PROMOD 30 ML DOSE PO SCH ×2 (07:16→20:00)
[2019-10-27] MEDS: FORMULATION-R RECTAL 30GM PR PRN (07:17)
[2019-10-27] MEDS: LIDOCAINE 4% PATCH TOP SCH (09:17)
[2019-10-27] MEDS ORDERED: BACLOFEN 10 MG TAB PO SCH (13:45)
--- NOTE | 2019-10-27 18:46 | R.PN ---
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 Pt denied any Shortness of Breath. She denies pain, admits to mild difficulty swallowing. Marked left sided weakness 0/5 in the arm, 1-2 /5 in the left leg with significant left sided neglect. She is working well with speech therapy. She has difficulty identifying objects in her left visual fi eld. She did balance and bed mobility training with moderate to maximum assistance. Repeat bilateral lower extremity dopplers show mild partial subacute thrombus in left anterior tibial vein. She is on Eliquis 5 mg bid and aspirin 81 mg bid. WBC 4.9, Hgb 9.8, Mg 1.7, prealbumin 17.2. Performed stand-pivot transfers with a rolling walker and maximum assistance. Ambulated 35' and 25' with maximum assistance using bilateral platform rolling walker. VITAL SIGNS Temperature: 98.8 F SBP/DBP: 121/69 Pulse: 79 Resp: 16 MEDICATION ALLERGIES: No Known Drug Allergies (NKDA) ENVIRONMENTAL ALLERGIES: None Known - Substance Allergies None Known - Other Allergies None Known NURSING: - Shower allowing shower - Bladder care per protocol - Skin care per protocol PRECAUTIONS: - Weight Bearing Precaution WBAT left LE ACTIVITIES OOB only with supervision THERAPIES: - Occupational Therapy Cognitive Retraining. Visual Perceptual Training. - Dietary and Nutrition Adequate Nutrition. Nutritional Education. Nutritional Supplements. - Speech Therapy Cognitive Training. Dysphagia Therapy. Expressive Language Skills. Memory Strategies. Receptive Langu age Skills. Speech Intelligibility Training. PHYSICAL EXAM - Gen Alert and awake Lying in bed No apparent distress Oriented to: person, time, and place - Skin No skin breakdown. Normacephalic - Eyes No abnormalities - ENMT No abnormalities - Neck No abnormalities - CVS RRR - Chest Mildly decreased breath sounds bilaterally. - Abd Soft - GI Non distended Deferred - No abnormalities - Ext Mild left lower extremity edema. - MSK 0-1+/5 weakness in left upper and lower extremity. - Neuro 0-1+/5 weakness in left upper and lower extremity. Marked left jorge-neglect. - Psych No abnormalities ASSESSMENT: Pt. is a 84 yo Right-handed white female.On 09/15/2019 Pt. presented to [facility] with sudden onset of left-side weakness.On 09/15/2019 she was admitted to [facility] with diagnosis Acute I schemic Right MCA Stroke.Her impairment category is Stroke 01 - Left Body (Right Brain) (01.1).Pre-m orbidly, Pt. was independent/mod-I in Locomotion, Safety Awareness, Balance, Social Cognition, Transf ers Control, Sphincter Control, Self-Care, Communication, and Endurance; and she had good Locomotion, Balance, Safety Awareness, Social Cognition, Transfers Control, Sphincter Control, Self-Care, Commun ication, and Endurance.Currently, she has deficits of Locomotion, Safety Awareness, Balance, Transfer s Control, Self-Care, Communication, and Endurance.Pt. is now referred to [facility] for acute in-patient rehabilitation in order to maximize patient's functional independence in activities of daily living, strength, ROM, and mobility.- Rehab Goal Patient has realistic goal of being discharged at assistance level 6-Hunter to reside at Home with Fam fernando/Relatives. MDM/PLAN: - Physical Therapy Gait dysfunction - to improve, our physical therapists will perform initial evaluation of pt's statu s upon admission and devise an individualized program for Gait Training, and Wheel Chair mobility Inability to transfer - to improve, our physical therapists will perform initial evaluation of pt's status upon admission and devise an individualized program for Bed mobility Need for home safety evaluation - to improve, our physical therapists will perform initial evaluatio n of pt's status upon admission and devise an individualized program for Home Evaluation Need in caregiver upon discharge - to improve, our physical therapists will perform initial evaluati on of pt's status upon admission and devise an individualized program for Caregiver Training New precaution - to improve, our physical therapists will perform initial evaluation of pt's status upon admission and devise an individualized program for Patient precaution education Poor balance - to improve, our physical therapists will perform initial evaluation of pt's status up on admission and devise an individualized program for Balance Training Poor endurance - to improve, our physical therapists will perform initial evaluation of pt's status upon admission and devise an individualized program for Endurance Training Weakness - to improve, our physical therapists will perform initial evaluation of pt's status upon a dmission and devise an individualized program for Aquatic Therapy, Neuromuscular Reeducation, and Str engthening Achieving independence - to improve, our physical therapists will perform initial evaluation of pt's status upon admission and devise an individualized program for Community Reintegration Activities - Occupational Therapy ADL deficits - to improve, our occupation therapists will perform initial evaluation of pt's status upon admission and devise an individualized program for Bathing, Bed mobility, Community Reintegratio n, Cooking, Dressing, Eating, Fine Motor Skills, Grooming, Homemaking, Kitchen Mobility, Laundry, Pat ient Education, Safety Awareness, Splinting - Positioning, Transfers(Toilet, Tub, Shower), and Wheel Chair Management Need for manager respiratory care - to improve, our occupation therapists will perform initial evaluation of pt's status upon admission and devise an individualized program for Caregiver Training Weakness - to improve, our occupation therapists will perform initial evaluation of pt's status upon admission and devise an individualized program for Aquatic Therapy, Balance, Endurance, UE ROM, and UE strengthening - Other See attached MAR (Medication Administration Record) See attached MAR (Medication Administration Record) Nai Ragland.pdf - Diet Type Continue Regular - Diet - Liquid Texture Continue Thin - Tube Feed Continue N/A - Bladder care per protocol - Weight Bearing Precaution WBAT left LE - Skin care per protocol - Diet - Solid Texture Continue Regular Continue Mechanical Soft - Shower allowing shower for Dementia, TBI, Stroke, or others FUNCTIONAL STATUS: UPDATED AT WEEKLY TEAM CONFERENCE - Bladder Same accident frequency: 7-Ind - No accidents in the past 7 days - Bowel Same accident frequency: 7-Ind - No accidents in the past 7 days - Walking Same score based on distance walked: 0(N/A) - Wheelchair Same score based on distance traveled: 0(N/A) FUNCTIONAL STATUS: - Self-Care A. Eating modA B. Grooming modA C. Bathing maxA D. Dressing - Upper modA E. Dressing - Lower maxA F. Toileting maxA - Sphincter Control G. Bladder control modA H. Bowel control modA - Transfers Control I. Bed/Chair/Wheelchair Dep J. Toilet Dep K. Tub/Shower Dep - Locomotion L. Walk/Wheelchair (B) Dep M. Stairs ADNO - Communication N. Comprehension (B) maxA O. Expression (B) modA - Social Cognition P. Social Interaction modA Q. Problem Solving maxA R. Memory modA - Endurance Fair - Balance Poor - Safety Awareness Poor QI SCORES: - Self-Care A. Eating 04-Supervision or touching assistance B. Oral hygiene 04-Supervision or touching assistance C. Toileting hygiene 02-Substantial/maximal assistance E. Shower/bathe self 02-Substantial/maximal assistance F. Upper body dressing 02-Substantial/maximal assistance G. Lower body dressing 01-Dependent H. Putting on/taking off footwear 01-Dependent - Mobility A. Roll left and right 02-Substantial/maximal assistance B. Sit to lying 02-Substantial/maximal assistance C. Lying to sitting on side of bed 02-Substantial/maximal assistance D. Sit to stand 02-Substantial/maximal assistance E. Chair/loy-yb-zfzya transfer 02-Substantial/maximal assistance F. Toilet transfer 02-Substantial/maximal assistance G. Car transfer 10-Not attempted due to environmental limitations I. Walk 10 feet 88-Not attempted due to medical condition or safety concerns J. Walk 50 feet with two turns 88-Not attempted due to medical condition or safety concerns K. Walk 150 feet 88-Not attempted due to medical condition or safety concerns L. Walking 10 feet on uneven surfaces 88-Not attempted due to medical condition or safety concerns M. 1 step (curb) 88-Not attempted due to medical condition or safety concerns N. 4 steps 88-Not attempted due to medical condition or safety concerns O. 12 steps 88-Not attempted due to medical condition or safety concerns P. Picking up object 88-Not attempted due to medical condition or safety concerns R. Wheel 50 feet with two turns 88-Not attempted due to medical condition or safety concerns S. Wheel 150 feet 88-Not attempted due to medical condition or safety concerns - Bladder and Bowel Bladder continence 0-Always continent Bowel continence 0-Always continent - Endurance Poor - Balance Poor - Safety Awareness Poor CURRENT FUNC. DEFICITS: Self-Care, Mobility, Endurance, Balance, and Safety Awareness SIGNATURE PANEL: (CDT)
[2019-10-27] MEDS: TAMSULOSIN 0.4 MG SR CAP PO SCH (20:32)
[2019-10-27] MEDS: ATORVASTATIN 80 MG TAB PO SCH (20:32)
[2019-10-27] MEDS: DOCUSATE NA/SENNA CONC 1 TAB PO SCH (20:33)
[2019-10-28] MEDS: LABETALOL HCL 100 MG TAB PO SCH ×3 (05:16→21:34)
[2019-10-28] MEDS: PROMOD 30 ML DOSE PO SCH ×2 (08:00→19:28)
[2019-10-28] MEDS: ENSURE HIGH PROTEIN 237 ML CAN PO SCH ×2 (08:00→19:28)
[2019-10-28] MEDS: MAGNESIUM OXIDE 400 MG TAB PO SCH ×2 (08:00→19:28)
[2019-10-28 08:34] LABS: Absolute Lymphocytes (CBC) 0.8 K/uL (0.7-4.9); Basophils % 0.3 % (0-1.3); MPV 8.1 fL (7.6-11.3); RBC Red Blood Cell Count 3.16 M/uL (3.86-4.86)
[2019-10-28 08:42] LABS: Potassium 3.3 mmol/L (3.5-5.1)
[2019-10-28] MEDS: VALSARTAN 80 MG TAB PO SCH (09:42)
[2019-10-28] MEDS: BACLOFEN 10 MG TAB PO SCH ×2 (09:43→19:28)
[2019-10-28] MEDS: ASPIRIN EC 81 MG TAB PO SCH (09:43)
[2019-10-28] MEDS: APIXABAN 5 MG TABLET PO SCH ×2 (09:44→19:27)
[2019-10-28] MEDS: PANTOPRAZOLE 40MG TABLET PO SCH (09:44)
[2019-10-28] MEDS: ADVAIR IH SCH ×2 (09:45→19:27)
[2019-10-28] MEDS: LIDOCAINE 4% PATCH TOP SCH (09:45)
[2019-10-28] MEDS: FUROSEMIDE 20 MG TABLET PO SCH (09:46)
[2019-10-28] MEDS ORDERED: POTASSIUM CL SA 10 MEQ TAB PO ONE (09:49)
--- NOTE | 2019-10-28 16:07 | FAST ---
SHIFT START DATE/TIME: 10/28/2019 07:00 (CDT) SHIFT END DATE/TIME: 10/28/2019 19:00 (CDT) NAME JOSE DE LOS SANTOS DATE OF : 1935 DATE OF ADMISSION: 09/27/2019 12:34 (EDUCATION SPEC) PHONE: AGE: 84 N# [id number] GENDER: Female ENCOUNTER PHYSICIAN: Dr. Elvis Munoz M.D. ADMISSION DIAGNOSIS: - Stroke 01 - Left Body (Right Brain) (01.1) Acute Ischemic Right MCA Stroke. EATING: EATING - STEP 1: Does the patient complete the activity by him/herself with no assistance (physical, verbal/nonverbal cueing, setup/clean-up)? No. EATING - STEP 2: Does the patient need only setup/clean-up assistance from one helper? Yes. 1. [id number] ADMISSION PERFORMANCE: Setup or clean-up assistance CODE: 05 ORAL HYGIENE: ORAL HYGIENE - STEP 1: Does the patient complete the activity by him/herself with no assistance (physical, verbal/nonverbal cueing, setup/clean-up)? No. ORAL HYGIENE - STEP 2: Does the patient need only setup/clean-up assistance from one helper? Yes. 1. [id number] ADMISSION PERFORMANCE: Setup or clean-up assistance CODE: 05 TOILETING HYGIENE: TOILETING HYGIENE - STEP 1: Does the patient complete the activity by him/herself with no assistance (physical, verbal/nonverbal cueing, setup/clean-up)? No. TOILETING HYGIENE - STEP 2: Does the patient need only setup/clean-up assistance from one helper? No. TOILETING HYGIENE - STEP 3: Does the patient need only verbal/nonverbal cueing or touching/steadying/contact guard assistance fro m one helper? No. TOILETING HYGIENE - STEP 4: Does the patient need physical assistance - for example lifting or trunk support from one helper - wi th the helper providing less than half of the effort? No. TOILETING HYGIENE - STEP 5: Does the patient need physical assistance - for example lifting or trunk support from one helper - wi th the helper providing more than half of the effort? Yes. 1. [id number] ADMISSION PERFORMANCE: Substantial/maximal assistance CODE: 02 BATHING: Not assessed/no information CODE: - DRESSING - UPPER BODY: DRESSING - UPPER BODY - STEP 1: Does the patient complete the activity by him/herself with no assistance (physical, verbal/nonverbal cueing, setup/clean-up)? No. DRESSING - UPPER BODY - STEP 2: Does the patient need only setup/clean-up assistance from one helper? No. DRESSING - UPPER BODY - STEP 3: Does the patient need only verbal/nonverbal cueing or touching/steadying/contact guard assistance fro m one helper? No. DRESSING - UPPER BODY - STEP 4: Does the patient need physical assistance - for example lifting or trunk support from one helper - wi th the helper providing less than half of the effort? No. DRESSING - UPPER BODY - STEP 5: Does the patient need physical assistance - for example lifting or trunk support from one helper - wi th the helper providing more than half of the effort? No. DRESSING - UPPER BODY - STEP 6: Does the helper provide all of the effort? OR Is the assistance of two or more helpers required to co mplete the activity? Yes. 1. [id number] ADMISSION PERFORMANCE: Dependent CODE: 01 DRESSING - LOWER BODY: DRESSING - LOWER BODY - STEP 1: Does the patient complete the activity by him/herself with no assistance (physical, verbal/nonverbal cueing, setup/clean-up)? No. DRESSING - LOWER BODY - STEP 2: Does the patient need only setup/clean-up assistance from one helper? No. DRESSING - LOWER BODY - STEP 3: Does the patient need only verbal/nonverbal cueing or touching/steadying/contact guard assistance fro m one helper? No. DRESSING - LOWER BODY - STEP 4: Does the patient need physical assistance - for example lifting or trunk support from one helper - wi th the helper providing less than half of the effort? No. DRESSING - LOWER BODY - STEP 5: Does the patient need physical assistance - for example lifting or trunk support from one helper - wi th the helper providing more than half of the effort? No. DRESSING - LOWER BODY - STEP 6: Does the helper provide all of the effort? OR Is the assistance of two or more helpers required to co mplete the activity? Yes. 1. [id number] ADMISSION PERFORMANCE: Dependent CODE: 01 PUTTING ON/TAKING OFF FOOTWEAR: FOOTWEAR - STEP 1: Does the patient complete the activity by him/herself with no assistance (physical, verbal/nonverbal cueing, setup/clean-up)? No. FOOTWEAR - STEP 2: Does the patient need only setup/clean-up assistance from one helper? No. FOOTWEAR - STEP 3: Does the patient need only verbal/nonverbal cueing or touching/steadying/contact guard assistance fro m one helper? No. FOOTWEAR - STEP 4: Does the patient need physical assistance - for example lifting or trunk support from one helper - wi th the helper providing less than half of the effort? No. FOOTWEAR - STEP 5: Does the patient need physical assistance - for example lifting or trunk support from one helper - wi th the helper providing more than half of the effort? No. FOOTWEAR - STEP 6: Does the helper provide all of the effort? OR Is the assistance of two or more helpers required to co mplete the activity? Yes. 1. [id number] ADMISSION PERFORMANCE: Dependent CODE: 01 DOES THE PATIENT USE A WHEELCHAIR/SCOOTER? CODE: EXPR INDICATE THE TYPE OF WHEELCHAIR/SCOOTER USED: CODE: EXPR INDICATE THE TYPE OF WHEELCHAIR/SCOOTER USED: CODE: EXPR BLADDER AND BOWEL: H350. BLADDER CONTINENCE (3-DAY ASSESSMENT PERIOD): Always incontinent CODE: 4 H400. BOWEL CONTINENCE (3-DAY ASSESSMENT PERIOD): Always incontinent (no episodes of continent bowel movements) CODE: 3 SIGNATURE PANEL: The following modified sections: 1. [id number] Admission Performance, 1. [id number] Admission Performance, 1. [id number] Admission Performance, 1. [id number] Admission Performance, 1. [id number] Admission Performance, 1. [id number] Admission Performance, H350. Bladder Continence (3-day assessment period), H400. Bowel Co ntinence (3-day assessment period) were [electronically] signed by Deana Chavez C.N.A. on SunOct 28 2019 16:06:11 GMT-0500 (Central Daylight Time)
--- NOTE | 2019-10-28 17:56 | R.PN ---
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 Pt denied any Shortness of Breath. She denies pain, admits to mild difficulty swallowing. Marked left sided weakness 0/5 in the arm, 1-2 /5 in the left leg with significant left sided neglect. She is working well with speech therapy. She has difficulty identifying objects in her left visual fi eld. She did balance and bed mobility training with moderate to maximum assistance. Repeat bilateral lower extremity dopplers show mild partial subacute thrombus in left anterior tibial vein. She is on Eliquis 5 mg bid and aspirin 81 mg bid. WBC 4.9, Hgb 9.8, Mg 1.7, prealbumin 17.2. Performed stand-pivot transfers with a rolling walker and maximum assistance. Ambulated 35' and 25' with maximum assistance using bilateral platform rolling walker. VITAL SIGNS Temperature: 97.2 F SBP/DBP: 148/68 Pulse: 81 Resp: 14 MEDICATION ALLERGIES: No Known Drug Allergies (NKDA) ENVIRONMENTAL ALLERGIES: None Known - Substance Allergies None Known - Other Allergies None Known NURSING: - Shower allowing shower - Bladder care per protocol - Skin care per protocol PRECAUTIONS: - Weight Bearing Precaution WBAT left LE ACTIVITIES OOB only with supervision THERAPIES: - Occupational Therapy Cognitive Retraining. Visual Perceptual Training. - Dietary and Nutrition Adequate Nutrition. Nutritional Education. Nutritional Supplements. - Speech Therapy Cognitive Training. Dysphagia Therapy. Expressive Language Skills. Memory Strategies. Receptive Langu age Skills. Speech Intelligibility Training. PHYSICAL EXAM - Gen Alert and awake Lying in bed No apparent distress Oriented to: person, time, and place - Skin No skin breakdown. Normacephalic - Eyes No abnormalities - ENMT No abnormalities - Neck No abnormalities - CVS RRR - Chest Mildly decreased breath sounds bilaterally. - Abd Soft - GI Non distended Deferred - No abnormalities - Ext Mild left lower extremity edema. - MSK 0-1+/5 weakness in left upper and lower extremity. - Neuro 0-1+/5 weakness in left upper and lower extremity. Marked left jorge-neglect. - Psych No abnormalities ASSESSMENT: Pt. is a 84 yo Right-handed white female.On 09/15/2019 Pt. presented to [facility] with sudden onset of left-side weakness.On 09/15/2019 she was admitted to [facility] with diagnosis Acute I schemic Right MCA Stroke.Her impairment category is Stroke 01 - Left Body (Right Brain) (01.1).Pre-m orbidly, Pt. was independent/mod-I in Locomotion, Safety Awareness, Balance, Social Cognition, Transf ers Control, Sphincter Control, Self-Care, Communication, and Endurance; and she had good Locomotion, Balance, Safety Awareness, Social Cognition, Transfers Control, Sphincter Control, Self-Care, Commun ication, and Endurance.Currently, she has deficits of Locomotion, Safety Awareness, Balance, Transfer s Control, Self-Care, Communication, and Endurance.Pt. is now referred to [facility] for acute in-patient rehabilitation in order to maximize patient's functional independence in activities of daily living, strength, ROM, and mobility.- Rehab Goal Patient has realistic goal of being discharged at assistance level 6-Hunter to reside at Home with Fam fernando/Relatives. MDM/PLAN: - Physical Therapy Gait dysfunction - to improve, our physical therapists will perform initial evaluation of pt's statu s upon admission and devise an individualized program for Gait Training, and Wheel Chair mobility Inability to transfer - to improve, our physical therapists will perform initial evaluation of pt's status upon admission and devise an individualized program for Bed mobility Need for home safety evaluation - to improve, our physical therapists will perform initial evaluatio n of pt's status upon admission and devise an individualized program for Home Evaluation Need in caregiver upon discharge - to improve, our physical therapists will perform initial evaluati on of pt's status upon admission and devise an individualized program for Caregiver Training New precaution - to improve, our physical therapists will perform initial evaluation of pt's status upon admission and devise an individualized program for Patient precaution education Poor balance - to improve, our physical therapists will perform initial evaluation of pt's status up on admission and devise an individualized program for Balance Training Poor endurance - to improve, our physical therapists will perform initial evaluation of pt's status upon admission and devise an individualized program for Endurance Training Weakness - to improve, our physical therapists will perform initial evaluation of pt's status upon a dmission and devise an individualized program for Aquatic Therapy, Neuromuscular Reeducation, and Str engthening Achieving independence - to improve, our physical therapists will perform initial evaluation of pt's status upon admission and devise an individualized program for Community Reintegration Activities - Occupational Therapy ADL deficits - to improve, our occupation therapists will perform initial evaluation of pt's status upon admission and devise an individualized program for Bathing, Bed mobility, Community Reintegratio n, Cooking, Dressing, Eating, Fine Motor Skills, Grooming, Homemaking, Kitchen Mobility, Laundry, Pat ient Education, Safety Awareness, Splinting - Positioning, Transfers(Toilet, Tub, Shower), and Wheel Chair Management Need for anesthesiologist and critical care - to improve, our occupation therapists will perform initial evaluation of pt's status upon admission and devise an individualized program for Caregiver Training Weakness - to improve, our occupation therapists will perform initial evaluation of pt's status upon admission and devise an individualized program for Aquatic Therapy, Balance, Endurance, UE ROM, and UE strengthening - Other See attached MAR (Medication Administration Record) See attached MAR (Medication Administration Record) Nai Ragland.pdf - Diet Type Continue Regular - Diet - Liquid Texture Continue Thin - Tube Feed Continue N/A - Bladder care per protocol - Weight Bearing Precaution WBAT left LE - Skin care per protocol - Diet - Solid Texture Continue Regular Continue Mechanical Soft - Shower allowing shower for Dementia, TBI, Stroke, or others FUNCTIONAL STATUS: UPDATED AT WEEKLY TEAM CONFERENCE - Bladder Same accident frequency: 7-Ind - No accidents in the past 7 days - Bowel Same accident frequency: 7-Ind - No accidents in the past 7 days - Walking Same score based on distance walked: 0(N/A) - Wheelchair Same score based on distance traveled: 0(N/A) FUNCTIONAL STATUS: - Self-Care A. Eating modA B. Grooming modA C. Bathing maxA D. Dressing - Upper modA E. Dressing - Lower maxA F. Toileting maxA - Sphincter Control G. Bladder control modA H. Bowel control modA - Transfers Control I. Bed/Chair/Wheelchair Dep J. Toilet Dep K. Tub/Shower Dep - Locomotion L. Walk/Wheelchair (B) Dep M. Stairs ADNO - Communication N. Comprehension (B) maxA O. Expression (B) modA - Social Cognition P. Social Interaction modA Q. Problem Solving maxA R. Memory modA - Endurance Fair - Balance Poor - Safety Awareness Poor QI SCORES: - Self-Care A. Eating 04-Supervision or touching assistance B. Oral hygiene 04-Supervision or touching assistance C. Toileting hygiene 02-Substantial/maximal assistance E. Shower/bathe self 02-Substantial/maximal assistance F. Upper body dressing 02-Substantial/maximal assistance G. Lower body dressing 01-Dependent H. Putting on/taking off footwear 01-Dependent - Mobility A. Roll left and right 02-Substantial/maximal assistance B. Sit to lying 02-Substantial/maximal assistance C. Lying to sitting on side of bed 02-Substantial/maximal assistance D. Sit to stand 02-Substantial/maximal assistance E. Chair/oed-me-qetey transfer 02-Substantial/maximal assistance F. Toilet transfer 02-Substantial/maximal assistance G. Car transfer 10-Not attempted due to environmental limitations I. Walk 10 feet 88-Not attempted due to medical condition or safety concerns J. Walk 50 feet with two turns 88-Not attempted due to medical condition or safety concerns K. Walk 150 feet 88-Not attempted due to medical condition or safety concerns L. Walking 10 feet on uneven surfaces 88-Not attempted due to medical condition or safety concerns M. 1 step (curb) 88-Not attempted due to medical condition or safety concerns N. 4 steps 88-Not attempted due to medical condition or safety concerns O. 12 steps 88-Not attempted due to medical condition or safety concerns P. Picking up object 88-Not attempted due to medical condition or safety concerns R. Wheel 50 feet with two turns 88-Not attempted due to medical condition or safety concerns S. Wheel 150 feet 88-Not attempted due to medical condition or safety concerns - Bladder and Bowel Bladder continence 0-Always continent Bowel continence 0-Always continent - Endurance Poor - Balance Poor - Safety Awareness Poor CURRENT FUNC. DEFICITS: Self-Care, Mobility, Endurance, Balance, and Safety Awareness SIGNATURE PANEL: (CDT)
[2019-10-28] MEDS: TAMSULOSIN 0.4 MG SR CAP PO SCH (19:27)
[2019-10-28] MEDS: ATORVASTATIN 80 MG TAB PO SCH (19:28)
[2019-10-28] MEDS: DOCUSATE NA/SENNA CONC 1 TAB PO SCH (19:29)
[2019-10-28] MEDS: TRAMADOL HCL 50 MG TAB PO PRN (19:34)
[2019-10-29] MEDS: LABETALOL HCL 100 MG TAB PO SCH ×3 (05:10→21:03)
[2019-10-29] MEDS: ADVAIR IH SCH ×2 (08:00→20:58)
[2019-10-29] MEDS: ENSURE HIGH PROTEIN 237 ML CAN PO SCH ×2 (08:00→20:00)
[2019-10-29] MEDS: PROMOD 30 ML DOSE PO SCH ×2 (08:00→20:00)
[2019-10-29] MEDS: LIDOCAINE 4% PATCH TOP SCH (09:19)
[2019-10-29] MEDS: FUROSEMIDE 20 MG TABLET PO SCH (09:20)
[2019-10-29] MEDS: VALSARTAN 80 MG TAB PO SCH (09:20)
[2019-10-29] MEDS: MAGNESIUM OXIDE 400 MG TAB PO SCH ×2 (09:21→20:59)
[2019-10-29] MEDS: BACLOFEN 10 MG TAB PO SCH ×2 (09:21→21:00)
[2019-10-29] MEDS: POTASSIUM CL SA 10 MEQ TAB PO SCH (09:21)
[2019-10-29] MEDS: PANTOPRAZOLE 40MG TABLET PO SCH (09:22)
[2019-10-29] MEDS: APIXABAN 5 MG TABLET PO SCH ×2 (09:22→20:59)
[2019-10-29] MEDS: ASPIRIN EC 81 MG TAB PO SCH (09:22)
[2019-10-29] MEDS: TRAMADOL HCL 50 MG TAB PO PRN (13:39)
--- NOTE | 2019-10-29 18:24 | R.PN ---
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 Pt denied any Shortness of Breath. She denies pain, admits to mild difficulty swallowing. Marked left sided weakness 0/5 in the arm, 1-2 /5 in the left leg with significant left sided neglect. She is working well with speech therapy. She has difficulty identifying objects in her left visual fi eld. She did balance and bed mobility training with moderate to maximum assistance. Repeat bilateral lower extremity dopplers show mild partial subacute thrombus in left anterior tibial vein. She is on Eliquis 5 mg bid and aspirin 81 mg bid. WBC 4.9, Hgb 9.8, Mg 1.7, prealbumin 17.2. Performed stand-pivot transfers with a rolling walker and maximum assistance. Ambulated 35' and 25' with maximum assistance using bilateral platform rolling walker. VITAL SIGNS Temperature: 98.2 F SBP/DBP: 114/54 Pulse: 54 Resp: 16 MEDICATION ALLERGIES: No Known Drug Allergies (NKDA) ENVIRONMENTAL ALLERGIES: None Known - Substance Allergies None Known - Other Allergies None Known NURSING: - Shower allowing shower - Bladder care per protocol - Skin care per protocol PRECAUTIONS: - Weight Bearing Precaution WBAT left LE ACTIVITIES OOB only with supervision THERAPIES: - Occupational Therapy Cognitive Retraining. Visual Perceptual Training. - Dietary and Nutrition Adequate Nutrition. Nutritional Education. Nutritional Supplements. - Speech Therapy Cognitive Training. Dysphagia Therapy. Expressive Language Skills. Memory Strategies. Receptive Langu age Skills. Speech Intelligibility Training. PHYSICAL EXAM - Gen Alert and awake Lying in bed No apparent distress Oriented to: person, time, and place - Skin No skin breakdown. Normacephalic - Eyes No abnormalities - ENMT No abnormalities - Neck No abnormalities - CVS RRR - Chest Mildly decreased breath sounds bilaterally. - Abd Soft - GI Non distended Deferred - No abnormalities - Ext Mild left lower extremity edema. - MSK 0-1+/5 weakness in left upper and lower extremity. - Neuro 0-1+/5 weakness in left upper and lower extremity. Marked left jorge-neglect. - Psych No abnormalities ASSESSMENT: Pt. is a 84 yo Right-handed white female.On 09/15/[address] [facility] with sudden onset of left-side weakness.On 09/15/2019 she was admitted to [facility] with diagnosis Acute I schemic Right MCA Stroke.Her impairment category is Stroke 01 - Left Body (Right Brain) (01.1).Pre-m orbidly, Pt. was independent/mod-I in Locomotion, Safety Awareness, Balance, Social Cognition, Transf ers Control, Sphincter Control, Self-Care, Communication, and Endurance; and she had good Locomotion, Balance, Safety Awareness, Social Cognition, Transfers Control, Sphincter Control, Self-Care, Commun ication, and Endurance.Currently, she has deficits of Locomotion, Safety Awareness, Balance, Transfer s Control, Self-Care, Communication, and Endurance.Pt. is now referred to [facility] for acute in-patient rehabilitation in order to maximize patient's functional independence in activities of daily living, strength, ROM, and mobility.- Rehab Goal Patient has realistic goal of being discharged at assistance level 6-Hunter to reside at Home with Fam fernando/Relatives. MDM/PLAN: - Physical Therapy Gait dysfunction - to improve, our physical therapists will perform initial evaluation of pt's statu s upon admission and devise an individualized program for Gait Training, and Wheel Chair mobility Inability to transfer - to improve, our physical therapists will perform initial evaluation of pt's status upon admission and devise an individualized program for Bed mobility Need for home safety evaluation - to improve, our physical therapists will perform initial evaluatio n of pt's status upon admission and devise an individualized program for Home Evaluation Need in caregiver upon discharge - to improve, our physical therapists will perform initial evaluati on of pt's status upon admission and devise an individualized program for Caregiver Training New precaution - to improve, our physical therapists will perform initial evaluation of pt's status upon admission and devise an individualized program for Patient precaution education Poor balance - to improve, our physical therapists will perform initial evaluation of pt's status up on admission and devise an individualized program for Balance Training Poor endurance - to improve, our physical therapists will perform initial evaluation of pt's status upon admission and devise an individualized program for Endurance Training Weakness - to improve, our physical therapists will perform initial evaluation of pt's status upon a dmission and devise an individualized program for Aquatic Therapy, Neuromuscular Reeducation, and Str engthening Achieving independence - to improve, our physical therapists will perform initial evaluation of pt's status upon admission and devise an individualized program for Community Reintegration Activities - Occupational Therapy ADL deficits - to improve, our occupation therapists will perform initial evaluation of pt's status upon admission and devise an individualized program for Bathing, Bed mobility, Community Reintegratio n, Cooking, Dressing, Eating, Fine Motor Skills, Grooming, Homemaking, Kitchen Mobility, Laundry, Pat ient Education, Safety Awareness, Splinting - Positioning, Transfers(Toilet, Tub, Shower), and Wheel Chair Management Need for healthcare management consultant - to improve, our occupation therapists will perform initial evaluation of pt's status upon admission and devise an individualized program for Caregiver Training Weakness - to improve, our occupation therapists will perform initial evaluation of pt's status upon admission and devise an individualized program for Aquatic Therapy, Balance, Endurance, UE ROM, and UE strengthening - Other See attached MAR (Medication Administration Record) See attached MAR (Medication Administration Record) Nai Ragland.pdf - Diet Type Continue Regular - Diet - Liquid Texture Continue Thin - Tube Feed Continue N/A - Bladder care per protocol - Weight Bearing Precaution WBAT left LE - Skin care per protocol - Diet - Solid Texture Continue Regular Continue Mechanical Soft - Shower allowing shower for Dementia, TBI, Stroke, or others FUNCTIONAL STATUS: UPDATED AT WEEKLY TEAM CONFERENCE - Bladder Same accident frequency: 7-Ind - No accidents in the past 7 days - Bowel Same accident frequency: 7-Ind - No accidents in the past 7 days - Walking Same score based on distance walked: 0(N/A) - Wheelchair Same score based on distance traveled: 0(N/A) FUNCTIONAL STATUS: - Self-Care A. Eating modA B. Grooming modA C. Bathing maxA D. Dressing - Upper modA E. Dressing - Lower maxA F. Toileting maxA - Sphincter Control G. Bladder control modA H. Bowel control modA - Transfers Control I. Bed/Chair/Wheelchair Dep J. Toilet Dep K. Tub/Shower Dep - Locomotion L. Walk/Wheelchair (B) Dep M. Stairs ADNO - Communication N. Comprehension (B) maxA O. Expression (B) modA - Social Cognition P. Social Interaction modA Q. Problem Solving maxA R. Memory modA - Endurance Fair - Balance Poor - Safety Awareness Poor QI SCORES: - Self-Care A. Eating 04-Supervision or touching assistance B. Oral hygiene 04-Supervision or touching assistance C. Toileting hygiene 02-Substantial/maximal assistance E. Shower/bathe self 02-Substantial/maximal assistance F. Upper body dressing 02-Substantial/maximal assistance G. Lower body dressing 01-Dependent H. Putting on/taking off footwear 01-Dependent - Mobility A. Roll left and right 02-Substantial/maximal assistance B. Sit to lying 02-Substantial/maximal assistance C. Lying to sitting on side of bed 02-Substantial/maximal assistance D. Sit to stand 02-Substantial/maximal assistance E. Chair/[id number] transfer 02-Substantial/maximal assistance F. Toilet transfer 02-Substantial/maximal assistance G. Car transfer 10-Not attempted due to environmental limitations I. Walk 10 feet 88-Not attempted due to medical condition or safety concerns J. Walk 50 feet with two turns 88-Not attempted due to medical condition or safety concerns K. Walk 150 feet 88-Not attempted due to medical condition or safety concerns L. Walking 10 feet on uneven surfaces 88-Not attempted due to medical condition or safety concerns M. 1 step (curb) 88-Not attempted due to medical condition or safety concerns N. 4 steps 88-Not attempted due to medical condition or safety concerns O. 12 steps 88-Not attempted due to medical condition or safety concerns P. Picking up object 88-Not attempted due to medical condition or safety concerns R. Wheel 50 feet with two turns 88-Not attempted due to medical condition or safety concerns S. Wheel 150 feet 88-Not attempted due to medical condition or safety concerns - Bladder and Bowel Bladder continence 0-Always continent Bowel continence 0-Always continent - Endurance Poor - Balance Poor - Safety Awareness Poor CURRENT FUNC. DEFICITS: Self-Care, Mobility, Endurance, Balance, and Safety Awareness SIGNATURE PANEL: (CDT)
[2019-10-29] MEDS: TAMSULOSIN 0.4 MG SR CAP PO SCH (20:59)
[2019-10-29] MEDS: CLOTRIMAZ/BETAMETH CREAM 15GM TOP SCH (20:59)
[2019-10-29] MEDS: ATORVASTATIN 80 MG TAB PO SCH (20:59)
[2019-10-29] MEDS: DOCUSATE NA/SENNA CONC 1 TAB PO SCH (21:03)
[2019-10-30] MEDS: LABETALOL HCL 100 MG TAB PO SCH ×3 (05:33→20:23)
[2019-10-30 07:03] LABS: Absolute Lymphocytes (CBC) 1.2 K/uL (0.7-4.9); Basophils % 0.7 % (0-1.3); Hematocrit 31.1 % (36.0-45.0); MPV 8.6 fL (7.6-11.3); RBC Red Blood Cell Count 3.18 M/uL (3.86-4.86)
[2019-10-30 07:25] LABS: ALT/SGPT 22 U/L (12-78); AST/SGOT 22 U/L (15-37); Albumin 2.5 g/dL (3.4-5.0); Alkaline Phosphatase 67 U/L (45-117); BUN Blood Urea Nitrogen 8 mg/dL (7-18); Bicarbonate 30 mmol/L (21-32); Bilirubin Total 0.4 mg/dL (0.2-1.0); Glucose Level 93 mg/dL (74-106); Magnesium 2.1 mg/dL (1.8-2.4); Potassium 3.7 mmol/L (3.5-5.1); Prealbumin 10.4 mg/dL (20-40); Protein, Total 6.4 g/dL (6.4-8.2); Sodium Level 139 mmol/L (136-145)
[2019-10-30] MEDS: ADVAIR IH SCH ×2 (07:48→20:21)
[2019-10-30] MEDS: LIDOCAINE 4% PATCH TOP SCH (07:48)
[2019-10-30] MEDS: HYDROCODONE/APAP 5/325 MG TAB PO PRN ×2 (07:49→14:26)
[2019-10-30] MEDS: PANTOPRAZOLE 40MG TABLET PO SCH (07:49)
[2019-10-30] MEDS: ASPIRIN EC 81 MG TAB PO SCH (07:49)
[2019-10-30] MEDS: BACLOFEN 10 MG TAB PO SCH ×2 (07:49→20:26)
[2019-10-30] MEDS: MAGNESIUM OXIDE 400 MG TAB PO SCH ×2 (07:49→20:21)
[2019-10-30] MEDS: POTASSIUM CL SA 10 MEQ TAB PO SCH (07:49)
[2019-10-30] MEDS: APIXABAN 5 MG TABLET PO SCH ×2 (07:49→20:22)
[2019-10-30] MEDS: VALSARTAN 80 MG TAB PO SCH (07:50)
[2019-10-30] MEDS: ENSURE HIGH PROTEIN 237 ML CAN PO SCH ×2 (07:55→20:00)
[2019-10-30] MEDS: CLOTRIMAZ/BETAMETH CREAM 15GM TOP SCH ×2 (07:56→20:21)
[2019-10-30] MEDS: PROMOD 30 ML DOSE PO SCH ×2 (07:56→20:00)
[2019-10-30] MEDS: FUROSEMIDE 20 MG TABLET PO SCH (07:56)
--- NOTE | 2019-10-30 17:00 | R.PN ---
ENCOUNTER DATE AND TIME: 10/30/2019 16:53 (CDT) NAME NAI RAGLAND DATE OF : 1935 DATE OF ADMISSION: 09/27/2019 12:34 (CIRCLE BEVELER) Acute Ischemic Right MCA StrokeCHIEF COMPLAINT: Dense left face, arm and leg weakness, dysarthria and dysphagia SUBJECTIVE: Pt denied any depression. Pt denied any Shortness of Breath. She denies pain, admits to mild difficulty swallowing. Marked left sided weakness 0/5 in the arm, 1-2 /5 in the left leg with significant left sided neglect. She is working well with speech therapy. She has difficulty identifying objects in her left visual fi eld. She did balance and bed mobility training with moderate to maximum assistance. Repeat bilateral lower extremity dopplers show mild partial subacute thrombus in left anterior tibial vein. She is on Eliquis 5 mg bid and aspirin 81 mg bid. WBC 6.2, Hgb 10.4, Mg 2.1, prealbumin 10.4, albumin 2.5. Performed stand-pivot transfers with a rolling walker and maximum assistance. Ambulated 35' and 25' with maximum assistance using bilateral platform rolling walker. She scored 13/25 on the MOCA. VITAL SIGNS Temperature: 98.2 F SBP/DBP: 142/65 Pulse: 75 Resp: 16 MEDICATION ALLERGIES: No Known Drug Allergies (NKDA) ENVIRONMENTAL ALLERGIES: None Known - Substance Allergies None Known - Other Allergies None Known NURSING: - Shower allowing shower - Bladder care per protocol - Skin care per protocol PRECAUTIONS: - Weight Bearing Precaution WBAT left LE ACTIVITIES OOB only with supervision THERAPIES: - Occupational Therapy Cognitive Retraining. Visual Perceptual Training. - Dietary and Nutrition Adequate Nutrition. Nutritional Education. Nutritional Supplements. - Speech Therapy Cognitive Training. Dysphagia Therapy. Expressive Language Skills. Memory Strategies. Receptive Langu age Skills. Speech Intelligibility Training. PHYSICAL EXAM - Gen Alert and awake Lying in bed No apparent distress Oriented to: person, time, and place - Skin No skin breakdown. Normacephalic - Eyes No abnormalities - ENMT No abnormalities - Neck No abnormalities - CVS RRR - Chest Mildly decreased breath sounds bilaterally. - Abd Soft - GI Non distended Deferred - No abnormalities - Ext Mild left lower extremity edema. - MSK 0-1+/5 weakness in left upper and lower extremity. - Neuro 0-1+/5 weakness in left upper and lower extremity. Marked left jorge-neglect. - Psych No abnormalities ASSESSMENT: Pt. is a 84 yo Right-handed white female.On 09/15/2019 Pt. presented to [facility] with sudden onset of left-side weakness.On 09/15/2019 she was admitted to [facility] with diagnosis Acute I schemic Right MCA Stroke.Her impairment category is Stroke 01 - Left Body (Right Brain) (01.1).Pre-m orbidly, Pt. was independent/mod-I in Locomotion, Safety Awareness, Balance, Social Cognition, Transf ers Control, Sphincter Control, Self-Care, Communication, and Endurance; and she had good Locomotion, Balance, Safety Awareness, Social Cognition, Transfers Control, Sphincter Control, Self-Care, Commun ication, and Endurance.Currently, she has deficits of Locomotion, Safety Awareness, Balance, Transfer s Control, Self-Care, Communication, and Endurance.Pt. is now referred to [facility] for acute in-patient rehabilitation in order to maximize patient's functional independence in activities of daily living, strength, ROM, and mobility.- Rehab Goal Patient has realistic goal of being discharged at assistance level 6-Hunter to reside at Home with Fam fernando/Relatives. MDM/PLAN: - Physical Therapy Gait dysfunction - to improve, our physical therapists will perform initial evaluation of pt's statu s upon admission and devise an individualized program for Gait Training, and Wheel Chair mobility Inability to transfer - to improve, our physical therapists will perform initial evaluation of pt's status upon admission and devise an individualized program for Bed mobility Need for home safety evaluation - to improve, our physical therapists will perform initial evaluatio n of pt's status upon admission and devise an individualized program for Home Evaluation Need in caregiver upon discharge - to improve, our physical therapists will perform initial evaluati on of pt's status upon admission and devise an individualized program for Caregiver Training New precaution - to improve, our physical therapists will perform initial evaluation of pt's status upon admission and devise an individualized program for Patient precaution education Poor balance - to improve, our physical therapists will perform initial evaluation of pt's status up on admission and devise an individualized program for Balance Training Poor endurance - to improve, our physical therapists will perform initial evaluation of pt's status upon admission and devise an individualized program for Endurance Training Weakness - to improve, our physical therapists will perform initial evaluation of pt's status upon a dmission and devise an individualized program for Aquatic Therapy, Neuromuscular Reeducation, and Str engthening Achieving independence - to improve, our physical therapists will perform initial evaluation of pt's status upon admission and devise an individualized program for Community Reintegration Activities - Occupational Therapy ADL deficits - to improve, our occupation therapists will perform initial evaluation of pt's status upon admission and devise an individualized program for Bathing, Bed mobility, Community Reintegratio n, Cooking, Dressing, Eating, Fine Motor Skills, Grooming, Homemaking, Kitchen Mobility, Laundry, Pat ient Education, Safety Awareness, Splinting - Positioning, Transfers(Toilet, Tub, Shower), and Wheel Chair Management Need for respiratory care specialist - to improve, our occupation therapists will perform initial evaluation of pt's status upon admission and devise an individualized program for Caregiver Training Weakness - to improve, our occupation therapists will perform initial evaluation of pt's status upon admission and devise an individualized program for Aquatic Therapy, Balance, Endurance, UE ROM, and UE strengthening - Other See attached MAR (Medication Administration Record) See attached MAR (Medication Administration Record) Nai Ragland.pdf - Diet Type Continue Regular - Diet - Liquid Texture Continue Thin - Tube Feed Continue N/A - Bladder care per protocol - Weight Bearing Precaution WBAT left LE - Skin care per protocol - Diet - Solid Texture Continue Regular Continue Mechanical Soft - Shower allowing shower for Dementia, TBI, Stroke, or others FUNCTIONAL STATUS: UPDATED AT WEEKLY TEAM CONFERENCE - Bladder Same accident frequency: 7-Ind - No accidents in the past 7 days - Bowel Same accident frequency: 7-Ind - No accidents in the past 7 days - Walking Same score based on distance walked: 0(N/A) - Wheelchair Same score based on distance traveled: 0(N/A) FUNCTIONAL STATUS: - Self-Care A. Eating modA B. Grooming modA C. Bathing maxA D. Dressing - Upper modA E. Dressing - Lower maxA F. Toileting maxA - Sphincter Control G. Bladder control modA H. Bowel control modA - Transfers Control I. Bed/Chair/Wheelchair Dep J. Toilet Dep K. Tub/Shower Dep - Locomotion L. Walk/Wheelchair (B) Dep M. Stairs ADNO - Communication N. Comprehension (B) maxA O. Expression (B) modA - Social Cognition P. Social Interaction modA Q. Problem Solving maxA R. Memory modA - Endurance Fair - Balance Poor - Safety Awareness Poor QI SCORES: - Self-Care A. Eating 04-Supervision or touching assistance B. Oral hygiene 04-Supervision or touching assistance C. Toileting hygiene 02-Substantial/maximal assistance E. Shower/bathe self 02-Substantial/maximal assistance F. Upper body dressing 02-Substantial/maximal assistance G. Lower body dressing 01-Dependent H. Putting on/taking off footwear 01-Dependent - Mobility A. Roll left and right 02-Substantial/maximal assistance B. Sit to lying 02-Substantial/maximal assistance C. Lying to sitting on side of bed 02-Substantial/maximal assistance D. Sit to stand 02-Substantial/maximal assistance E. Chair/eys-ps-rpihl transfer 02-Substantial/maximal assistance F. Toilet transfer 02-Substantial/maximal assistance G. Car transfer 10-Not attempted due to environmental limitations I. Walk 10 feet 88-Not attempted due to medical condition or safety concerns J. Walk 50 feet with two turns 88-Not attempted due to medical condition or safety concerns K. Walk 150 feet 88-Not attempted due to medical condition or safety concerns L. Walking 10 feet on uneven surfaces 88-Not attempted due to medical condition or safety concerns M. 1 step (curb) 88-Not attempted due to medical condition or safety concerns N. 4 steps 88-Not attempted due to medical condition or safety concerns O. 12 steps 88-Not attempted due to medical condition or safety concerns P. Picking up object 88-Not attempted due to medical condition or safety concerns R. Wheel 50 feet with two turns 88-Not attempted due to medical condition or safety concerns S. Wheel 150 feet 88-Not attempted due to medical condition or safety concerns - Bladder and Bowel Bladder continence 0-Always continent Bowel continence 0-Always continent - Endurance Poor - Balance Poor - Safety Awareness Poor CURRENT FUNC. DEFICITS: Self-Care, Mobility, Endurance, Balance, and Safety Awareness SIGNATURE PANEL: (CDT)
[2019-10-30] MEDS: DOCUSATE NA/SENNA CONC 1 TAB PO SCH (20:22)
[2019-10-30] MEDS: ATORVASTATIN 80 MG TAB PO SCH (20:22)
[2019-10-30] MEDS: TAMSULOSIN 0.4 MG SR CAP PO SCH (20:23)
[2019-10-31] MEDS: LABETALOL HCL 100 MG TAB PO SCH ×3 (05:09→22:05)
[2019-10-31] MEDS: ADVAIR IH SCH ×2 (07:58→20:15)
[2019-10-31] MEDS: PANTOPRAZOLE 40MG TABLET PO SCH (07:59)
[2019-10-31] MEDS: HYDROCODONE/APAP 5/325 MG TAB PO PRN ×2 (07:59→20:17)
[2019-10-31] MEDS: ENSURE HIGH PROTEIN 237 ML CAN PO SCH ×2 (08:00→20:00)
[2019-10-31] MEDS: PROMOD 30 ML DOSE PO SCH ×2 (08:00→20:00)
[2019-10-31] MEDS: VALSARTAN 80 MG TAB PO SCH (08:04)
[2019-10-31] MEDS: APIXABAN 5 MG TABLET PO SCH ×2 (08:06→20:17)
[2019-10-31] MEDS: POTASSIUM CL SA 10 MEQ TAB PO SCH (08:06)
[2019-10-31] MEDS: MAGNESIUM OXIDE 400 MG TAB PO SCH ×2 (08:06→20:16)
[2019-10-31] MEDS: BACLOFEN 10 MG TAB PO SCH ×2 (08:08→20:18)
[2019-10-31] MEDS: FUROSEMIDE 20 MG TABLET PO SCH (08:08)
[2019-10-31] MEDS: ASPIRIN EC 81 MG TAB PO SCH (08:11)
--- NOTE | 2019-10-31 10:04 | P.RH.PN ---
Estimated Length of Stay: 40 Expected Discharge Date: 11/05/19 Discharge Disposition Plan: Home Family Support: Yes Care Home Goal: Mobility, Transfers, Self Care Vital Signs: Last Vital Signs Temp 97.2 F 10/31/19 07:00 Pulse 90 10/31/19 08:08 Resp 18 10/31/19 07:59 BP 139/58 L 10/31/19 08:08 Pulse Ox 98 10/31/19 07:59 Laboratory: Laboratory Last Values WBC 6.2 K/uL (4.3-10.9) D 10/30/19 06:18 RBC 3.18 M/uL (3.86-4.86) L 10/30/19 06:18 Hgb 10.4 g/dL (12.0-15.0) L 10/30/19 06:18 Hct 31.1 % (36.0-45.0) L 10/30/19 06:18 MCV 97.9 fL (80-100) 10/30/19 06:18 MCH 32.9 pg (27.0-35.0) 10/30/19 06:18 MCHC 33.5 g/dL (32.0-36.0) 10/30/19 06:18 RDW 14.6 % (12.1-15.2) 10/30/19 06:18 Plt Count 290 K/uL (152-406) 10/30/19 06:18 MPV 8.6 fL (7.6-11.3) 10/30/19 06:18 Neutrophils % 66.9 % (41.7-73.7) 10/30/19 06:18 Lymphocytes % 20.0 % (15.3-44.8) 10/30/19 06:18 Monocytes % 11.5 % (3.3-12.3) 10/30/19 06:18 Eosinophils % 0.9 % (0-4.4) 10/30/19 06:18 Basophils % 0.7 % (0-1.3) 10/30/19 06:18 Absolute Neutrophils 4.1 K/uL (1.8-8.0) 10/30/19 06:18 Segmented Neutrophils 69 % (40-80) 10/02/19 05:42 Lymphocytes 24 % (15-42) 10/02/19 05:42 Absolute Lymphocytes 1.2 K/uL (0.7-4.9) 10/30/19 06:18 Monocytes 5 % (0-10) 10/02/19 05:42 Absolute Monocytes 0.7 K/uL (0.1-1.3) 10/30/19 06:18 Absolute Eosinophils 0.1 K/uL (0-0.5) 10/30/19 06:18 Metamyelocytes 2 % (0-0) H 10/02/19 05:42 Absolute Basophils 0.0 K/uL (0-0.5) 10/30/19 06:18 Morphology Comment Not seen (NOT SEEN) 10/02/19 05:42 Sodium 139 mmol/L (136-145) 10/30/19 06:18 Potassium 3.7 mmol/L (3.5-5.1) 10/30/19 06:18 Chloride 104 mmol/L (98-107) 10/30/19 06:18 Carbon Dioxide 30 mmol/L (21-32) 10/30/19 06:18 BUN 8 mg/dL (7-18) 10/30/19 06:18 Creatinine 0.63 mg/dL (0.55-1.3) 10/30/19 06:18 Estimated GFR > 90 mL/min (=/>90) 10/30/19 06:18 Glucose 93 mg/dL (74-106) 10/30/19 06:18 Calcium 9.3 mg/dL (8.5-10.1) 10/30/19 06:18 Magnesium 2.1 mg/dL (1.8-2.4) 10/30/19 06:18 Total Bilirubin 0.4 mg/dL (0.2-1.0) 10/30/19 06:18 AST 22 U/L (15-37) 10/30/19 06:18 ALT 22 U/L (12-78) 10/30/19 06:18 Alkaline Phosphatase 67 U/L (45-117) 10/30/19 06:18 Serum Total Protein 6.4 g/dL (6.4-8.2) 10/30/19 06:18 Albumin 2.5 g/dL (3.4-5.0) L 10/30/19 06:18 Globulin 3.9 g/dL (2.3-3.5) H 10/30/19 06:18 Albumin/Globulin Ratio 0.6 (1.1-1.8) L 10/30/19 06:18 Prealbumin 10.4 mg/dL (20-40) L 10/30/19 06:18 Urine Color Yellow 09/28/19 11:00 Urine Appearance Turbid 09/28/19 11:00 Urine pH 6.0 (5.0-7.0) 09/28/19 11:00 Ur Specific [place] 1.015 (1.005-1.030) 09/28/19 11:00 Glucose (UA)(Auto) Negative (NEG) 09/28/19 11:00 Urine Ketones Negative (NEG) 09/28/19 11:00 Urine Blood 3+ (NEG) H 09/28/19 11:00 Urine Nitrite Positive (NEG) H 09/28/19 11:00 Urine Bilirubin Negative (NEG) 09/28/19 11:00 Urine Urobilinogen 0.2 mg/dL (0.2-1.0) 09/28/19 11:00 Ur Leukocyte Esterase 3+ (NEG) H 09/28/19 11:00 Urine RBC 20-50 /HPF (NONE SEEN) H 09/28/19 11:00 Urine WBC Loaded /HPF (<5) H 09/28/19 11:00 Ur Squamous Epith Cells <5 /HPF (NONE SEEN) 09/28/19 11:00 Urine Bacteria >50 /HPF (<20) H 09/28/19 11:00 Urine Culture Reflexed Not needed 09/28/19 11:00 Urine Total Protein 2+ (NEG) H 09/28/19 11:00 Weight: 157 lb 3.2 oz Wound Present: No Closed Surgical Incision Present: No Negative Pressure Wound Therapy Present: No Physician Update: Her left is not improving in strength. She is at moderate assistance with speech therapy due to significant left sided neglect. She is walking 15' with maximum assistance. May required alf at discharge. Medical Issues: LLE DVT - on Eliquis 5mg BID PO. Patient is incontinent daily with bladder and always continent with bowel. Pain Issues: PAtient is taking [place] 5/325mg Q6H PO PRN and Tramadol 50mg Q6H PO PRN for pain. Functional Improvement: pt has demonstrated functional improvements this week. She has begun ambulating using bilateral platform RW. pt also has improved her ability to perform stand-pivot transfers. pt is coming up into standing more easily as well. pt's level of alertness and attention is improving. Skilled PT services continue to be necessary to improve functional performance, independence, and safety. Speech Therapy Update: Moderate Cognitive/linguistic impairment; left neglect is a limitation along with motivation. Dysarthria (Moderate) is improved with use of speech strategies . She is toerlating current diet well Summary: Patient's care plan and parts counterman goals have been reviewed and revised as necessary. Please see the Rehabilitation Signature page for all necessary signatures.
[2019-10-31] MEDS: LIDOCAINE 4% PATCH TOP SCH (10:07)
[2019-10-31] MEDS: CLOTRIMAZ/BETAMETH CREAM 15GM TOP SCH ×2 (10:09→20:19)
[2019-10-31] MEDS: FORMULATION-R RECTAL 30GM PR PRN (10:10)
--- NOTE | 2019-10-31 13:27 | FAST ---
ENCOUNTER DATE AND TIME: 10/31/2019 08:00 (CDT) NAME JOSE DE LOS SANTOS DATE OF : 1935 DATE OF ADMISSION: 09/27/2019 12:34 (CARDIOPULMONARY TECHNOLOGIST) PHONE: AGE: 84 N# [id number] GENDER: Female ENCOUNTER PHYSICIAN: Dr. Elvis Munoz M.D. ADMISSION DIAGNOSIS: - Stroke 01 - Left Body (Right Brain) (01.1) Acute Ischemic Right MCA Stroke. EATING: Not assessed/no information CODE: - ORAL HYGIENE: Not assessed/no information CODE: - TOILETING HYGIENE: Not assessed/no information CODE: - BATHING: SHOWER/BATHE SELF - STEP 1: Does the patient complete the activity by him/herself with no assistance (physical, verbal/nonverbal cueing, setup/clean-up)? No. SHOWER/BATHE SELF - STEP 2: Does the patient need only setup/clean-up assistance from one helper? No. SHOWER/BATHE SELF - STEP 3: Does the patient need only verbal/nonverbal cueing or touching/steadying/contact guard assistance fro m one helper? No. SHOWER/BATHE SELF - STEP 4: Does the patient need physical assistance - for example lifting or trunk support from one helper - wi th the helper providing less than half of the effort? No. SHOWER/BATHE SELF - STEP 5: Does the patient need physical assistance - for example lifting or trunk support from one helper - wi th the helper providing more than half of the effort? Yes. 1. [id number] ADMISSION PERFORMANCE: Substantial/maximal assistance CODE: 02 DRESSING - UPPER BODY: DRESSING - UPPER BODY - STEP 1: Does the patient complete the activity by him/herself with no assistance (physical, verbal/nonverbal cueing, setup/clean-up)? No. DRESSING - UPPER BODY - STEP 2: Does the patient need only setup/clean-up assistance from one helper? No. DRESSING - UPPER BODY - STEP 3: Does the patient need only verbal/nonverbal cueing or touching/steadying/contact guard assistance fro m one helper? No. DRESSING - UPPER BODY - STEP 4: Does the patient need physical assistance - for example lifting or trunk support from one helper - wi th the helper providing less than half of the effort? No. DRESSING - UPPER BODY - STEP 5: Does the patient need physical assistance - for example lifting or trunk support from one helper - wi th the helper providing more than half of the effort? Yes. 1. [id number] ADMISSION PERFORMANCE: Substantial/maximal assistance CODE: 02 DRESSING - LOWER BODY: DRESSING - LOWER BODY - STEP 1: Does the patient complete the activity by him/herself with no assistance (physical, verbal/nonverbal cueing, setup/clean-up)? No. DRESSING - LOWER BODY - STEP 2: Does the patient need only setup/clean-up assistance from one helper? No. DRESSING - LOWER BODY - STEP 3: Does the patient need only verbal/nonverbal cueing or touching/steadying/contact guard assistance fro m one helper? No. DRESSING - LOWER BODY - STEP 4: Does the patient need physical assistance - for example lifting or trunk support from one helper - wi th the helper providing less than half of the effort? No. DRESSING - LOWER BODY - STEP 5: Does the patient need physical assistance - for example lifting or trunk support from one helper - wi th the helper providing more than half of the effort? Yes. 1. [id number] ADMISSION PERFORMANCE: Substantial/maximal assistance CODE: 02 PUTTING ON/TAKING OFF FOOTWEAR: FOOTWEAR - STEP 1: Does the patient complete the activity by him/herself with no assistance (physical, verbal/nonverbal cueing, setup/clean-up)? No. FOOTWEAR - STEP 2: Does the patient need only setup/clean-up assistance from one helper? No. FOOTWEAR - STEP 3: Does the patient need only verbal/nonverbal cueing or touching/steadying/contact guard assistance fro m one helper? No. FOOTWEAR - STEP 4: Does the patient need physical assistance - for example lifting or trunk support from one helper - wi th the helper providing less than half of the effort? No. FOOTWEAR - STEP 5: Does the patient need physical assistance - for example lifting or trunk support from one helper - wi th the helper providing more than half of the effort? No. FOOTWEAR - STEP 6: Does the helper provide all of the effort? OR Is the assistance of two or more helpers required to co mplete the activity? Yes. 1. [id number] ADMISSION PERFORMANCE: Dependent CODE: 01 DOES THE PATIENT USE A WHEELCHAIR/SCOOTER? CODE: EXPR INDICATE THE TYPE OF WHEELCHAIR/SCOOTER USED: CODE: EXPR INDICATE THE TYPE OF WHEELCHAIR/SCOOTER USED: CODE: EXPR BLADDER AND BOWEL: CODE: EXPR CODE: EXPR SIGNATURE PANEL: The following modified sections: 1. [id number] Admission Performance, 1. [id number] Admission Performance, 1. [id number] Admission Performance, 1. [id number] Admission Performance were [electronically] signed by Juana Salomon OT on SunOct 31 2019 13:25:57 GMT-0500 (Central Daylight Time)
--- NOTE | 2019-10-31 15:07 | FAST ---
ENCOUNTER DATE AND TIME: 10/31/2019 08:00 (CDT) NAME JOSE DE LOS SANTOS DATE OF : 1935 DATE OF ADMISSION: 09/27/2019 12:34 (PAYABLE PROCESSOR) PHONE: AGE: 84 N# [id number] GENDER: Female ENCOUNTER PHYSICIAN: Dr. Elvis Munoz M.D. ADMISSION DIAGNOSIS: - Stroke 01 - Left Body (Right Brain) (01.1) Acute Ischemic Right MCA Stroke. ROLL LEFT AND RIGHT: ROLL LEFT AND RIGHT - STEP 1: Does the patient complete the activity by him/herself with no assistance (physical, verbal/nonverbal cueing, setup/clean-up)? No. ROLL LEFT AND RIGHT - STEP 2: Does the patient need only setup/clean-up assistance from one helper? No. ROLL LEFT AND RIGHT - STEP 3: Does the patient need only verbal/nonverbal cueing or touching/steadying/contact guard assistance fro m one helper? No. ROLL LEFT AND RIGHT - STEP 4: Does the patient need physical assistance - for example lifting or trunk support from one helper - wi th the helper providing less than half of the effort? No. ROLL LEFT AND RIGHT - STEP 5: Does the patient need physical assistance - for example lifting or trunk support from one helper - wi th the helper providing more than half of the effort? Yes. 1. [id number] ADMISSION PERFORMANCE: Substantial/maximal assistance CODE: 02 SIT TO LYING: SIT TO LYING - STEP 1: Does the patient complete the activity by him/herself with no assistance (physical, verbal/nonverbal cueing, setup/clean-up)? No. SIT TO LYING - STEP 2: Does the patient need only setup/clean-up assistance from one helper? No. SIT TO LYING - STEP 3: Does the patient need only verbal/nonverbal cueing or touching/steadying/contact guard assistance fro m one helper? No. SIT TO LYING - STEP 4: Does the patient need physical assistance - for example lifting or trunk support from one helper - wi th the helper providing less than half of the effort? No. SIT TO LYING - STEP 5: Does the patient need physical assistance - for example lifting or trunk support from one helper - wi th the helper providing more than half of the effort? Yes. 1. [id number] ADMISSION PERFORMANCE: Substantial/maximal assistance CODE: 02 LYING TO SITTING: LYING TO SITTING ON SIDE OF BED - STEP 1: Does the patient complete the activity by him/herself with no assistance (physical, verbal/nonverbal cueing, setup/clean-up)? No. LYING TO SITTING ON SIDE OF BED - STEP 2: Does the patient need only setup/clean-up assistance from one helper? No. LYING TO SITTING ON SIDE OF BED - STEP 3: Does the patient need only verbal/nonverbal cueing or touching/steadying/contact guard assistance fro m one helper? No. LYING TO SITTING ON SIDE OF BED - STEP 4: Does the patient need physical assistance - for example lifting or trunk support from one helper - wi th the helper providing less than half of the effort? No. LYING TO SITTING ON SIDE OF BED - STEP 5: Does the patient need physical assistance - for example lifting or trunk support from one helper - wi th the helper providing more than half of the effort? Yes. 1. [id number] ADMISSION PERFORMANCE: Substantial/maximal assistance CODE: 02 SIT TO STAND: SIT TO STAND - STEP 1: Does the patient complete the activity by him/herself with no assistance (physical, verbal/nonverbal cueing, setup/clean-up)? No. SIT TO STAND - STEP 2: Does the patient need only setup/clean-up assistance from one helper? No. SIT TO STAND - STEP 3: Does the patient need only verbal/nonverbal cueing or touching/steadying/contact guard assistance fro m one helper? No. SIT TO STAND - STEP 4: Does the patient need physical assistance - for example lifting or trunk support from one helper - wi th the helper providing less than half of the effort? No. SIT TO STAND - STEP 5: Does the patient need physical assistance - for example lifting or trunk support from one helper - wi th the helper providing more than half of the effort? Yes. 1. [id number] ADMISSION PERFORMANCE: Substantial/maximal assistance CODE: 02 TRANSFERS: BED, CHAIR: CHAIR/[id number] TRANSFER - STEP 1: Does the patient complete the activity by him/herself with no assistance (physical, verbal/nonverbal cueing, setup/clean-up)? No. CHAIR/[id number] TRANSFER - STEP 2: Does the patient need only setup/clean-up assistance from one helper? No. CHAIR/[id number] TRANSFER - STEP 3: Does the patient need only verbal/nonverbal cueing or touching/steadying/contact guard assistance fro m one helper? No. CHAIR/[id number] TRANSFER - STEP 4: Does the patient need physical assistance - for example lifting or trunk support from one helper - wi th the helper providing less than half of the effort? No. CHAIR/[id number] TRANSFER - STEP 5: Does the patient need physical assistance - for example lifting or trunk support from one helper - wi th the helper providing more than half of the effort? Yes. 1. [id number] ADMISSION PERFORMANCE: Substantial/maximal assistance CODE: 02 TRANSFER TOILET: TOILET TRANSFER - STEP 1: Does the patient complete the activity by him/herself with no assistance (physical, verbal/nonverbal cueing, setup/clean-up)? No. TOILET TRANSFER - STEP 2: Does the patient need only setup/clean-up assistance from one helper? No. TOILET TRANSFER - STEP 3: Does the patient need only verbal/nonverbal cueing or touching/steadying/contact guard assistance fro m one helper? No. TOILET TRANSFER - STEP 4: Does the patient need physical assistance - for example lifting or trunk support from one helper - wi th the helper providing less than half of the effort? No. TOILET TRANSFER - STEP 5: Does the patient need physical assistance - for example lifting or trunk support from one helper - wi th the helper providing more than half of the effort? Yes. 1. [id number] ADMISSION PERFORMANCE: Substantial/maximal assistance CODE: 02 TRANSFERS: CAR: Not attempted due to medical condition or safety concerns CODE: 88 WALK 10 FEET: WALK 10 FEET - STEP 1: Does the patient complete the activity by him/herself with no assistance (physical, verbal/nonverbal cueing, setup/clean-up)? No. WALK 10 FEET - STEP 2: Does the patient need only setup/clean-up assistance from one helper? No. WALK 10 FEET - STEP 3: Does the patient need only verbal/nonverbal cueing or touching/steadying/contact guard assistance fro m one helper? No. WALK 10 FEET - STEP 4: Does the patient need physical assistance - for example lifting or trunk support from one helper - wi th the helper providing less than half of the effort? No. WALK 10 FEET - STEP 5: Does the patient need physical assistance - for example lifting or trunk support from one helper - wi th the helper providing more than half of the effort? Yes. 1. [id number] ADMISSION PERFORMANCE: Substantial/maximal assistance CODE: 02 WALK 50 FEET: Not attempted due to medical condition or safety concerns CODE: 88 WALK 150 FEET: Not attempted due to medical condition or safety concerns CODE: 88 WALK 10 FEET UNEVEN: Not attempted due to medical condition or safety concerns CODE: 88 1 STEP (CURB): Not attempted due to medical condition or safety concerns CODE: 88 PICKING UP OBJECT: Not attempted due to medical condition or safety concerns CODE: 88 DOES THE PATIENT USE A WHEELCHAIR/SCOOTER? Q1. DOES THE PATIENT USE A WHEELCHAIR/SCOOTER?: Yes CODE: 1 WHEEL 50 FEET WITH TWO TURNS: WHEEL 50 FEET WITH TWO TURNS - STEP 1: Does the patient complete the activity by him/herself with no assistance (physical, verbal/nonverbal cueing, setup/clean-up)? No. WHEEL 50 FEET WITH TWO TURNS - STEP 2: Does the patient need only setup/clean-up assistance from one helper? No. WHEEL 50 FEET WITH TWO TURNS - STEP 3: Does the patient need only verbal/nonverbal cueing or touching/steadying/contact guard assistance fro m one helper? No. WHEEL 50 FEET WITH TWO TURNS - STEP 4: Does the patient need physical assistance - for example lifting or trunk support from one helper - wi th the helper providing less than half of the effort? Yes. 1. [id number] ADMISSION PERFORMANCE: Partial/moderate assistance CODE: 03 INDICATE THE TYPE OF WHEELCHAIR/SCOOTER USED: RR1. INDICATE THE TYPE OF WHEELCHAIR/SCOOTER USED.: Manual CODE: 1 WHEEL 150 FEET: Not attempted due to medical condition or safety concerns CODE: 88 INDICATE THE TYPE OF WHEELCHAIR/SCOOTER USED: CODE: EXPR BLADDER AND BOWEL: CODE: EXPR CODE: EXPR SIGNATURE PANEL: The following modified sections: 1. [id number] Admission Performance, 1. [id number] Admission Performance, 1. [id number] Admission Performance, 1. [id number] Admission Performance, 1. [id number] Admission Performance, 1. [id number] Admission Performance, 1. [id number] Admission Performance, Q1. Does the patient use a wheel chair/scooter?, 1. [id number] Admission Performance, RR1. Indicate the type of wheelchair/scooter used., Code were [electronically] signed by Tyrel Sterling PTA on SunOct 31 2019 15:06:17 GMT-0500 ([facility] Time)
[2019-10-31] MEDS: TAMSULOSIN 0.4 MG SR CAP PO SCH (20:16)
[2019-10-31] MEDS: ATORVASTATIN 80 MG TAB PO SCH (20:16)
[2019-10-31] MEDS: DOCUSATE NA/SENNA CONC 1 TAB PO SCH (20:17)
--- NOTE | 2019-11-01 02:33 | FAST ---
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 Elvis Munoz M.D. ADMISSION DIAGNOSIS: - Stroke 01 - Left Body (Right Brain) (01.1) Acute Ischemic Right MCA Stroke. EATING: Not assessed/no information CODE: - ORAL HYGIENE: Not assessed/no information CODE: - TOILETING HYGIENE: TOILETING HYGIENE - STEP 1: Does the patient complete the activity by him/herself with no assistance (physical, verbal/nonverbal cueing, setup/clean-up)? No. TOILETING HYGIENE - STEP 2: Does the patient need only setup/clean-up assistance from one helper? No. TOILETING HYGIENE - STEP 3: Does the patient need only verbal/nonverbal cueing or touching/steadying/contact guard assistance fro m one helper? No. TOILETING HYGIENE - STEP 4: Does the patient need physical assistance - for example lifting or trunk support from one helper - wi th the helper providing less than half of the effort? No. TOILETING HYGIENE - STEP 5: Does the patient need physical assistance - for example lifting or trunk support from one helper - wi th the helper providing more than half of the effort? Yes. 1. [id number] ADMISSION PERFORMANCE: Substantial/maximal assistance CODE: 02 BATHING: Not assessed/no information CODE: - DRESSING - UPPER BODY: Not assessed/no information CODE: - DRESSING - LOWER BODY: Not assessed/no information CODE: - PUTTING ON/TAKING OFF FOOTWEAR: Not assessed/no information CODE: - ROLL LEFT AND RIGHT: ROLL LEFT AND RIGHT - STEP 1: Does the patient complete the activity by him/herself with no assistance (physical, verbal/nonverbal cueing, setup/clean-up)? No. ROLL LEFT AND RIGHT - STEP 2: Does the patient need only setup/clean-up assistance from one helper? No. ROLL LEFT AND RIGHT - STEP 3: Does the patient need only verbal/nonverbal cueing or touching/steadying/contact guard assistance fro m one helper? No. ROLL LEFT AND RIGHT - STEP 4: Does the patient need physical assistance - for example lifting or trunk support from one helper - wi th the helper providing less than half of the effort? No. ROLL LEFT AND RIGHT - STEP 5: Does the patient need physical assistance - for example lifting or trunk support from one helper - wi th the helper providing more than half of the effort? Yes. 1. [id number] ADMISSION PERFORMANCE: Substantial/maximal assistance CODE: 02 SIT TO LYING: Not assessed/no information CODE: - LYING TO SITTING: Not assessed/no information CODE: - SIT TO STAND: Not assessed/no information CODE: - TRANSFERS: BED, CHAIR: Not assessed/no information CODE: - TRANSFER TOILET: Not assessed/no information CODE: - TRANSFERS: CAR: Not assessed/no information CODE: - WALK 10 FEET: Not assessed/no information CODE: - 1 STEP (CURB): Not assessed/no information CODE: - PICKING UP OBJECT: Not assessed/no information CODE: - DOES THE PATIENT USE A WHEELCHAIR/SCOOTER? CODE: EXPR WHEEL 50 FEET WITH TWO TURNS: Not assessed/no information CODE: - INDICATE THE TYPE OF WHEELCHAIR/SCOOTER USED: CODE: EXPR WHEEL 150 FEET: Not assessed/no information CODE: - INDICATE THE TYPE OF WHEELCHAIR/SCOOTER USED: CODE: EXPR BLADDER AND BOWEL: H350. BLADDER CONTINENCE (3-DAY ASSESSMENT PERIOD): Always incontinent CODE: 4 H400. BOWEL CONTINENCE (3-DAY ASSESSMENT PERIOD): Always incontinent (no episodes of continent bowel movements) CODE: 3
[2019-11-01] MEDS: LABETALOL HCL 100 MG TAB PO SCH ×3 (05:11→21:39)
[2019-11-01] MEDS: PROMOD 30 ML DOSE PO SCH ×2 (08:00→19:56)
[2019-11-01] MEDS: ENSURE HIGH PROTEIN 237 ML CAN PO SCH ×2 (08:00→19:55)
[2019-11-01] MEDS: ADVAIR IH SCH ×2 (08:00→20:00)
[2019-11-01] MEDS: PANTOPRAZOLE 40MG TABLET PO SCH (08:48)
[2019-11-01] MEDS: BACLOFEN 10 MG TAB PO SCH ×2 (08:49→20:01)
[2019-11-01] MEDS: APIXABAN 5 MG TABLET PO SCH ×2 (08:49→20:01)
[2019-11-01] MEDS: ASPIRIN EC 81 MG TAB PO SCH (08:50)
[2019-11-01] MEDS: VALSARTAN 80 MG TAB PO SCH (08:50)
[2019-11-01] MEDS: FUROSEMIDE 20 MG TABLET PO SCH (08:51)
[2019-11-01] MEDS: POTASSIUM CL SA 10 MEQ TAB PO SCH (08:51)
[2019-11-01] MEDS: MAGNESIUM OXIDE 400 MG TAB PO SCH ×2 (08:51→20:01)
[2019-11-01] MEDS: CLOTRIMAZ/BETAMETH CREAM 15GM TOP SCH ×2 (08:52→20:02)
[2019-11-01] MEDS: FORMULATION-R RECTAL 30GM PR PRN (08:52)
[2019-11-01] MEDS: LIDOCAINE 4% PATCH TOP SCH (08:56)
[2019-11-01] MEDS: HYDROCODONE/APAP 5/325 MG TAB PO PRN (09:21)
[2019-11-01] MEDS: TAMSULOSIN 0.4 MG SR CAP PO SCH (20:02)
[2019-11-01] MEDS: ATORVASTATIN 80 MG TAB PO SCH (20:02)
[2019-11-01] MEDS: DOCUSATE NA/SENNA CONC 1 TAB PO SCH (20:03)
[2019-11-02] MEDS: LABETALOL HCL 100 MG TAB PO SCH ×3 (05:28→21:19)
[2019-11-02] MEDS: ENSURE HIGH PROTEIN 237 ML CAN PO SCH ×2 (08:00→20:00)
[2019-11-02] MEDS: PROMOD 30 ML DOSE PO SCH ×2 (08:00→20:00)
[2019-11-02] MEDS: PANTOPRAZOLE 40MG TABLET PO SCH (08:02)
[2019-11-02] MEDS: TRAMADOL HCL 50 MG TAB PO PRN (08:07)
[2019-11-02] MEDS: LIDOCAINE 4% PATCH TOP SCH (08:08)
[2019-11-02] MEDS: ASPIRIN EC 81 MG TAB PO SCH (08:11)
[2019-11-02] MEDS: ADVAIR IH SCH ×2 (08:12→20:33)
[2019-11-02] MEDS: APIXABAN 5 MG TABLET PO SCH ×2 (08:12→20:32)
[2019-11-02] MEDS: FUROSEMIDE 20 MG TABLET PO SCH (08:13)
[2019-11-02] MEDS: VALSARTAN 160 MG TAB PO SCH (08:14)
[2019-11-02] MEDS: MAGNESIUM OXIDE 400 MG TAB PO SCH ×2 (08:14→20:33)
[2019-11-02] MEDS: BACLOFEN 10 MG TAB PO SCH ×2 (08:14→20:32)
[2019-11-02] MEDS: POTASSIUM CL SA 10 MEQ TAB PO SCH (08:14)
[2019-11-02] MEDS: CLOTRIMAZ/BETAMETH CREAM 15GM TOP SCH ×2 (08:15→20:32)
[2019-11-02] MEDS: ATORVASTATIN 80 MG TAB PO SCH (20:33)
[2019-11-02] MEDS: TAMSULOSIN 0.4 MG SR CAP PO SCH (20:33)
[2019-11-02] MEDS: DOCUSATE NA/SENNA CONC 1 TAB PO SCH (20:34)
[2019-11-02] MEDS: HYDROCODONE/APAP 5/325 MG TAB PO PRN (21:20)
[2019-11-03] MEDS: LABETALOL HCL 100 MG TAB PO SCH ×3 (05:17→21:55)
[2019-11-03] MEDS: ADVAIR IH SCH ×2 (08:00→20:00)
[2019-11-03] MEDS: CLOTRIMAZ/BETAMETH CREAM 15GM TOP SCH ×2 (08:00→20:00)
[2019-11-03] MEDS: ENSURE HIGH PROTEIN 237 ML CAN PO SCH ×2 (08:00→20:00)
[2019-11-03] MEDS: PROMOD 30 ML DOSE PO SCH ×2 (08:00→20:00)
[2019-11-03] MEDS: LIDOCAINE 4% PATCH TOP SCH (08:24)
[2019-11-03] MEDS: VALSARTAN 160 MG TAB PO SCH (08:25)
[2019-11-03] MEDS: ASPIRIN EC 81 MG TAB PO SCH (08:25)
[2019-11-03] MEDS: APIXABAN 5 MG TABLET PO SCH ×2 (08:26→20:52)
[2019-11-03] MEDS: BACLOFEN 10 MG TAB PO SCH ×2 (08:26→20:49)
[2019-11-03] MEDS: FUROSEMIDE 20 MG TABLET PO SCH (08:26)
[2019-11-03] MEDS: MAGNESIUM OXIDE 400 MG TAB PO SCH ×2 (08:27→20:52)
[2019-11-03] MEDS: POTASSIUM CL SA 10 MEQ TAB PO SCH (08:28)
[2019-11-03] MEDS: PANTOPRAZOLE 40MG TABLET PO SCH (08:28)
[2019-11-03] MEDS: TRAMADOL HCL 50 MG TAB PO PRN ×2 (08:28→17:14)
--- NOTE | 2019-11-03 17:43 | R.PN ---
ENCOUNTER DATE AND TIME: 11/03/2019 17:37 (CDT) NAME NAI RAGLAND DATE OF : 1935 DATE OF ADMISSION: 09/27/2019 12:34 (HRIS ADMINISTRATOR) Acute Ischemic Right MCA StrokeCHIEF COMPLAINT: Dense left face, arm and leg weakness, dysarthria and dysphagia SUBJECTIVE: Pt denied any depression. Pt denied any Shortness of Breath. She denies pain, admits to mild difficulty swallowing. Marked left sided weakness 0/5 in the arm, 1-2 /5 in the left leg with significant left sided neglect. She is working well with speech therapy. She has difficulty identifying objects in her left visual fi eld. She did balance and bed mobility training with moderate to maximum assistance. Repeat bilateral lower extremity dopplers show mild partial subacute thrombus in left anterior tibial vein. She is on Eliquis 5 mg bid and aspirin 81 mg bid. WBC 6.2, Hgb 10.4, Mg 2.1, prealbumin 10.4, albumin 2.5. Performed stand-pivot transfers with a rolling walker and minimum assistance. Ambulated 25' with minimum assistance using bilateral platform rolling walker. She scored 13/25 on the MOCA. Repeat doppler of left lower extremity is pending. VITAL SIGNS Temperature: 98.2 F SBP/DBP: 165/70 Pulse: 79 Resp: 16 MEDICATION ALLERGIES: No Known Drug Allergies (NKDA) ENVIRONMENTAL ALLERGIES: None Known - Substance Allergies None Known - Other Allergies None Known NURSING: - Shower allowing shower - Bladder care per protocol - Skin care per protocol PRECAUTIONS: - Weight Bearing Precaution WBAT left LE ACTIVITIES OOB only with supervision THERAPIES: - Occupational Therapy Cognitive Retraining. Visual Perceptual Training. - Dietary and Nutrition Adequate Nutrition. Nutritional Education. Nutritional Supplements. - Speech Therapy Cognitive Training. Dysphagia Therapy. Expressive Language Skills. Memory Strategies. Receptive Langu age Skills. Speech Intelligibility Training. PHYSICAL EXAM - Gen Alert and awake Lying in bed No apparent distress Oriented to: person, time, and place - Skin No skin breakdown. Normacephalic - Eyes No abnormalities - ENMT No abnormalities - Neck No abnormalities - CVS RRR - Chest Mildly decreased breath sounds bilaterally. - Abd Soft - GI Non distended Deferred - No abnormalities - Ext Mild left lower extremity edema. - MSK 0-1+/5 weakness in left upper and lower extremity. - Neuro 0-1+/5 weakness in left upper and lower extremity. Marked left jorge-neglect. - Psych No abnormalities ASSESSMENT: Pt. is a 84 yo Right-handed white female.On 09/15/2019 Pt. presented to [facility] with sudden onset of left-side weakness.On 09/15/2019 she was admitted to [facility] with diagnosis Acute I schemic Right MCA Stroke.Her impairment category is Stroke 01 - Left Body (Right Brain) (01.1).Pre-m orbidly, Pt. was independent/mod-I in Locomotion, Safety Awareness, Balance, Social Cognition, Transf ers Control, Sphincter Control, Self-Care, Communication, and Endurance; and she had good Locomotion, Balance, Safety Awareness, Social Cognition, Transfers Control, Sphincter Control, Self-Care, Commun ication, and Endurance.Currently, she has deficits of Locomotion, Safety Awareness, Balance, Transfer s Control, Self-Care, Communication, and Endurance.Pt. is now referred to [facility] for acute in-patient rehabilitation in order to maximize patient's functional independence in activities of daily living, strength, ROM, and mobility.- Rehab Goal Patient has realistic goal of being discharged at assistance level 6-Hunter to reside at Home with Fam fernando/Relatives. MDM/PLAN: - Physical Therapy Gait dysfunction - to improve, our physical therapists will perform initial evaluation of pt's statu s upon admission and devise an individualized program for Gait Training, and Wheel Chair mobility Inability to transfer - to improve, our physical therapists will perform initial evaluation of pt's status upon admission and devise an individualized program for Bed mobility Need for home safety evaluation - to improve, our physical therapists will perform initial evaluatio n of pt's status upon admission and devise an individualized program for Home Evaluation Need in caregiver upon discharge - to improve, our physical therapists will perform initial evaluati on of pt's status upon admission and devise an individualized program for Caregiver Training New precaution - to improve, our physical therapists will perform initial evaluation of pt's status upon admission and devise an individualized program for Patient precaution education Poor balance - to improve, our physical therapists will perform initial evaluation of pt's status up on admission and devise an individualized program for Balance Training Poor endurance - to improve, our physical therapists will perform initial evaluation of pt's status upon admission and devise an individualized program for Endurance Training Weakness - to improve, our physical therapists will perform initial evaluation of pt's status upon a dmission and devise an individualized program for Aquatic Therapy, Neuromuscular Reeducation, and Str engthening Achieving independence - to improve, our physical therapists will perform initial evaluation of pt's status upon admission and devise an individualized program for Community Reintegration Activities - Occupational Therapy ADL deficits - to improve, our occupation therapists will perform initial evaluation of pt's status upon admission and devise an individualized program for Bathing, Bed mobility, Community Reintegratio n, Cooking, Dressing, Eating, Fine Motor Skills, Grooming, Homemaking, Kitchen Mobility, Laundry, Pat ient Education, Safety Awareness, Splinting - Positioning, Transfers(Toilet, Tub, Shower), and Wheel Chair Management Need for pediatric acute care unit nurse - to improve, our occupation therapists will perform initial evaluation of pt's status upon admission and devise an individualized program for Caregiver Training Weakness - to improve, our occupation therapists will perform initial evaluation of pt's status upon admission and devise an individualized program for Aquatic Therapy, Balance, Endurance, UE ROM, and UE strengthening - Other See attached MAR (Medication Administration Record) See attached MAR (Medication Administration Record) Nai Ragland.pdf - Diet Type Continue Regular - Diet - Liquid Texture Continue Thin - Tube Feed Continue N/A - Bladder care per protocol - Weight Bearing Precaution WBAT left LE - Skin care per protocol - Diet - Solid Texture Continue Regular Continue Mechanical Soft - Shower allowing shower for Dementia, TBI, Stroke, or others FUNCTIONAL STATUS: UPDATED AT WEEKLY TEAM CONFERENCE - Bladder Same accident frequency: 7-Ind - No accidents in the past 7 days - Bowel Same accident frequency: 7-Ind - No accidents in the past 7 days - Walking Same score based on distance walked: 0(N/A) - Wheelchair Same score based on distance traveled: 0(N/A) FUNCTIONAL STATUS: - Self-Care A. Eating modA B. Grooming modA C. Bathing maxA D. Dressing - Upper modA E. Dressing - Lower maxA F. Toileting maxA - Sphincter Control G. Bladder control modA H. Bowel control modA - Transfers Control I. Bed/Chair/Wheelchair Dep J. Toilet Dep K. Tub/Shower Dep - Locomotion L. Walk/Wheelchair (B) Dep M. Stairs ADNO - Communication N. Comprehension (B) maxA O. Expression (B) modA - Social Cognition P. Social Interaction modA Q. Problem Solving maxA R. Memory modA - Endurance Fair - Balance Poor - Safety Awareness Poor QI SCORES: - Self-Care A. Eating 04-Supervision or touching assistance B. Oral hygiene 04-Supervision or touching assistance C. Toileting hygiene 02-Substantial/maximal assistance E. Shower/bathe self 02-Substantial/maximal assistance F. Upper body dressing 02-Substantial/maximal assistance G. Lower body dressing 01-Dependent H. Putting on/taking off footwear 01-Dependent - Mobility A. Roll left and right 02-Substantial/maximal assistance B. Sit to lying 02-Substantial/maximal assistance C. Lying to sitting on side of bed 02-Substantial/maximal assistance D. Sit to stand 02-Substantial/maximal assistance E. Chair/[id number]-[id number] transfer 02-Substantial/maximal assistance F. Toilet transfer 02-Substantial/maximal assistance G. Car transfer 10-Not attempted due to environmental limitations I. Walk 10 feet 88-Not attempted due to medical condition or safety concerns J. Walk 50 feet with two turns 88-Not attempted due to medical condition or safety concerns K. Walk 150 feet 88-Not attempted due to medical condition or safety concerns L. Walking 10 feet on uneven surfaces 88-Not attempted due to medical condition or safety concerns M. 1 step (curb) 88-Not attempted due to medical condition or safety concerns N. 4 steps 88-Not attempted due to medical condition or safety concerns O. 12 steps 88-Not attempted due to medical condition or safety concerns P. Picking up object 88-Not attempted due to medical condition or safety concerns R. Wheel 50 feet with two turns 88-Not attempted due to medical condition or safety concerns S. Wheel 150 feet 88-Not attempted due to medical condition or safety concerns - Bladder and Bowel Bladder continence 0-Always continent Bowel continence 0-Always continent - Endurance Poor - Balance Poor - Safety Awareness Poor CURRENT FUNC. DEFICITS: Self-Care, Mobility, Endurance, Balance, and Safety Awareness SIGNATURE PANEL: (CDT)
--- NOTE | 2019-11-03 20:22 | RAD REPORT ---
EXAM DESCRIPTION: US - Extremity Venous Uni Ltd - 11/03/2019 8:13 pm CLINICAL HISTORY: compare with previous result Leg swelling and edema. COMPARISON: Extrem Venous W Compress Mateusz dated 10/13/2019 FINDINGS: Left lower extremity venous system was interrogated with Doppler technique. Normal flow, c ompressibility and augmentation was noted. There is no DVT present. IMPRESSION: No evidence of left lower extremity deep venous thrombosis.
[2019-11-03] MEDS: ATORVASTATIN 80 MG TAB PO SCH (20:50)
[2019-11-03] MEDS: DOCUSATE NA/SENNA CONC 1 TAB PO SCH (20:51)
[2019-11-03] MEDS: TAMSULOSIN 0.4 MG SR CAP PO SCH (20:51)
[2019-11-04] MEDS: LABETALOL HCL 100 MG TAB PO SCH ×3 (05:24→21:19)
[2019-11-04] MEDS: PANTOPRAZOLE 40MG TABLET PO SCH (06:50)
[2019-11-04] MEDS: ADVAIR IH SCH ×2 (07:34→19:05)
[2019-11-04] MEDS: LIDOCAINE 4% PATCH TOP SCH (07:35)
[2019-11-04] MEDS: MAGNESIUM OXIDE 400 MG TAB PO SCH ×2 (07:36→19:04)
[2019-11-04] MEDS: CLOTRIMAZ/BETAMETH CREAM 15GM TOP SCH ×2 (07:36→19:03)
[2019-11-04] MEDS: POTASSIUM CL SA 10 MEQ TAB PO SCH (07:37)
[2019-11-04] MEDS: VALSARTAN 160 MG TAB PO SCH (07:37)
[2019-11-04] MEDS: APIXABAN 5 MG TABLET PO SCH (07:37)
[2019-11-04] MEDS: ASPIRIN EC 81 MG TAB PO SCH (07:37)
[2019-11-04] MEDS: FUROSEMIDE 20 MG TABLET PO SCH (07:38)
[2019-11-04] MEDS: BACLOFEN 10 MG TAB PO SCH ×2 (07:39→19:05)
[2019-11-04] MEDS: PROMOD 30 ML DOSE PO SCH ×2 (08:00→19:05)
[2019-11-04] MEDS: ENSURE HIGH PROTEIN 237 ML CAN PO SCH ×2 (08:00→19:05)
--- NOTE | 2019-11-04 13:10 | RAD REPORT ---
EXAM DESCRIPTION: RAD - Ankle Left 2 View - 11/04/2019 12:49 pm CLINICAL HISTORY: Pain on the left ankle COMPARISON: No comparisons FINDINGS: No fracture, dislocation or periosteal reaction. No joint effusion seen. Tibiotalar joint space is narrowed. Moderate-sized plantar spur is present. No foreign body in the soft tissues. The s oft tissues are prominent, most notable along the lateral margin. Edema is seen in the subcutaneous f atty tissues. Baseline for the patient is unknown. IMPRESSION: Left ankle degenerative changes are present with no acute or destructive bone process id entifiable. Soft tissue edema and swelling changes are evident with baseline unknown.
[2019-11-04] MEDS: GABAPENTIN 100 MG CAP PO SCH ×2 (14:00→19:03)
--- NOTE | 2019-11-04 17:29 | R.PN ---
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 Pt denied any Shortness of Breath. She denies pain, admits to mild difficulty swallowing. Marked left sided weakness 0/5 in the arm, 1-2 /5 in the left leg with significant left sided neglect. She is working well with speech therapy. She has difficulty identifying objects in her left visual fi eld. She did balance and bed mobility training with moderate to maximum assistance. Repeat bilateral lower extremity dopplers show mild partial subacute thrombus in left anterior tibial vein. She is on Eliquis 5 mg bid and aspirin 81 mg bid. WBC 6.2, Hgb 10.4, Mg 2.1, K+ 3.6, prealbumin 10.4, albumin 2.5. Performed stand-pivot transfers with a rolling walker and minimum assistance. Ambulated 25' with minimum assistance using bilateral platform rolling walker. She scored 13/25 on the MOCA. Repeat doppler of left lower extremity is pending. VITAL SIGNS Temperature: 98.2 F SBP/DBP: 149/62 Pulse: 86 Resp: 16 MEDICATION ALLERGIES: No Known Drug Allergies (NKDA) ENVIRONMENTAL ALLERGIES: None Known - Substance Allergies None Known - Other Allergies None Known NURSING: - Shower allowing shower - Bladder care per protocol - Skin care per protocol PRECAUTIONS: - Weight Bearing Precaution WBAT left LE ACTIVITIES OOB only with supervision THERAPIES: - Occupational Therapy Cognitive Retraining. Visual Perceptual Training. - Dietary and Nutrition Adequate Nutrition. Nutritional Education. Nutritional Supplements. - Speech Therapy Cognitive Training. Dysphagia Therapy. Expressive Language Skills. Memory Strategies. Receptive Langu age Skills. Speech Intelligibility Training. PHYSICAL EXAM - Gen Alert and awake Lying in bed No apparent distress Oriented to: person, time, and place - Skin No skin breakdown. Normacephalic - Eyes No abnormalities - ENMT No abnormalities - Neck No abnormalities - CVS RRR - Chest Mildly decreased breath sounds bilaterally. - Abd Soft - GI Non distended Deferred - No abnormalities - Ext Mild left lower extremity edema. - MSK 0-1+/5 weakness in left upper and lower extremity. - Neuro 0-1+/5 weakness in left upper and lower extremity. Marked left jorge-neglect. - Psych No abnormalities ASSESSMENT: Pt. is a 84 yo Right-handed white female.On 09/15/2019 Pt. presented to [facility] with sudden onset of left-side weakness.On 09/15/2019 she was admitted to [facility] with diagnosis Acute I schemic Right MCA Stroke.Her impairment category is Stroke 01 - Left Body (Right Brain) (01.1).Pre-m orbidly, Pt. was independent/mod-I in Locomotion, Safety Awareness, Balance, Social Cognition, Transf ers Control, Sphincter Control, Self-Care, Communication, and Endurance; and she had good Locomotion, Balance, Safety Awareness, Social Cognition, Transfers Control, Sphincter Control, Self-Care, Commun ication, and Endurance.Currently, she has deficits of Locomotion, Safety Awareness, Balance, Transfer s Control, Self-Care, Communication, and Endurance.Pt. is now referred to [facility] for acute in-patient rehabilitation in order to maximize patient's functional independence in activities of daily living, strength, ROM, and mobility.- Rehab Goal Patient has realistic goal of being discharged at assistance level 6-Hunter to reside at Home with Fam fernando/Relatives. MDM/PLAN: - Physical Therapy Gait dysfunction - to improve, our physical therapists will perform initial evaluation of pt's statu s upon admission and devise an individualized program for Gait Training, and Wheel Chair mobility Inability to transfer - to improve, our physical therapists will perform initial evaluation of pt's status upon admission and devise an individualized program for Bed mobility Need for home safety evaluation - to improve, our physical therapists will perform initial evaluatio n of pt's status upon admission and devise an individualized program for Home Evaluation Need in caregiver upon discharge - to improve, our physical therapists will perform initial evaluati on of pt's status upon admission and devise an individualized program for Caregiver Training New precaution - to improve, our physical therapists will perform initial evaluation of pt's status upon admission and devise an individualized program for Patient precaution education Poor balance - to improve, our physical therapists will perform initial evaluation of pt's status up on admission and devise an individualized program for Balance Training Poor endurance - to improve, our physical therapists will perform initial evaluation of pt's status upon admission and devise an individualized program for Endurance Training Weakness - to improve, our physical therapists will perform initial evaluation of pt's status upon a dmission and devise an individualized program for Aquatic Therapy, Neuromuscular Reeducation, and Str engthening Achieving independence - to improve, our physical therapists will perform initial evaluation of pt's status upon admission and devise an individualized program for Community Reintegration Activities - Occupational Therapy ADL deficits - to improve, our occupation therapists will perform initial evaluation of pt's status upon admission and devise an individualized program for Bathing, Bed mobility, Community Reintegratio n, Cooking, Dressing, Eating, Fine Motor Skills, Grooming, Homemaking, Kitchen Mobility, Laundry, Pat ient Education, Safety Awareness, Splinting - Positioning, Transfers(Toilet, Tub, Shower), and Wheel Chair Management Need for ambulatory care coordinator - to improve, our occupation therapists will perform initial evaluation of pt's status upon admission and devise an individualized program for Caregiver Training Weakness - to improve, our occupation therapists will perform initial evaluation of pt's status upon admission and devise an individualized program for Aquatic Therapy, Balance, Endurance, UE ROM, and UE strengthening - Other See attached MAR (Medication Administration Record) See attached MAR (Medication Administration Record) Nai Ragland.pdf - Diet Type Continue Regular - Diet - Liquid Texture Continue Thin - Tube Feed Continue N/A - Bladder care per protocol - Weight Bearing Precaution WBAT left LE - Skin care per protocol - Diet - Solid Texture Continue Regular Continue Mechanical Soft - Shower allowing shower for Dementia, TBI, Stroke, or others FUNCTIONAL STATUS: UPDATED AT WEEKLY TEAM CONFERENCE - Bladder Same accident frequency: 7-Ind - No accidents in the past 7 days - Bowel Same accident frequency: 7-Ind - No accidents in the past 7 days - Walking Same score based on distance walked: 0(N/A) - Wheelchair Same score based on distance traveled: 0(N/A) FUNCTIONAL STATUS: - Self-Care A. Eating modA B. Grooming modA C. Bathing maxA D. Dressing - Upper modA E. Dressing - Lower maxA F. Toileting maxA - Sphincter Control G. Bladder control modA H. Bowel control modA - Transfers Control I. Bed/Chair/Wheelchair Dep J. Toilet Dep K. Tub/Shower Dep - Locomotion L. Walk/Wheelchair (B) Dep M. Stairs ADNO - Communication N. Comprehension (B) maxA O. Expression (B) modA - Social Cognition P. Social Interaction modA Q. Problem Solving maxA R. Memory modA - Endurance Fair - Balance Poor - Safety Awareness Poor QI SCORES: - Self-Care A. Eating 04-Supervision or touching assistance B. Oral hygiene 04-Supervision or touching assistance C. Toileting hygiene 02-Substantial/maximal assistance E. Shower/bathe self 02-Substantial/maximal assistance F. Upper body dressing 02-Substantial/maximal assistance G. Lower body dressing 01-Dependent H. Putting on/taking off footwear 01-Dependent - Mobility A. Roll left and right 02-Substantial/maximal assistance B. Sit to lying 02-Substantial/maximal assistance C. Lying to sitting on side of bed 02-Substantial/maximal assistance D. Sit to stand 02-Substantial/maximal assistance E. Chair/[id number] transfer 02-Substantial/maximal assistance F. Toilet transfer 02-Substantial/maximal assistance G. Car transfer 10-Not attempted due to environmental limitations I. Walk 10 feet 88-Not attempted due to medical condition or safety concerns J. Walk 50 feet with two turns 88-Not attempted due to medical condition or safety concerns K. Walk 150 feet 88-Not attempted due to medical condition or safety concerns L. Walking 10 feet on uneven surfaces 88-Not attempted due to medical condition or safety concerns M. 1 step (curb) 88-Not attempted due to medical condition or safety concerns N. 4 steps 88-Not attempted due to medical condition or safety concerns O. 12 steps 88-Not attempted due to medical condition or safety concerns P. Picking up object 88-Not attempted due to medical condition or safety concerns R. Wheel 50 feet with two turns 88-Not attempted due to medical condition or safety concerns S. Wheel 150 feet 88-Not attempted due to medical condition or safety concerns - Bladder and Bowel Bladder continence 0-Always continent Bowel continence 0-Always continent - Endurance Poor - Balance Poor - Safety Awareness Poor CURRENT FUNC. DEFICITS: Self-Care, Mobility, Endurance, Balance, and Safety Awareness SIGNATURE PANEL: (CDT)
[2019-11-04] MEDS: HYDROCODONE/APAP 5/325 MG TAB PO PRN (18:17)
[2019-11-04] MEDS: APIXABAN 2.5 MG TABLET PO SCH (19:05)
[2019-11-04] MEDS: TAMSULOSIN 0.4 MG SR CAP PO SCH (20:14)
[2019-11-04] MEDS: ATORVASTATIN 80 MG TAB PO SCH (20:14)
[2019-11-04] MEDS: DOCUSATE NA/SENNA CONC 1 TAB PO SCH (20:34)
[2019-11-05] MEDS: LABETALOL HCL 100 MG TAB PO SCH (05:22)
[2019-11-05 07:39] VITALS: BP 151/64; TEMP 97.8
[2019-11-05] MEDS: CLOTRIMAZ/BETAMETH CREAM 15GM TOP SCH (08:00)
[2019-11-05] MEDS: ADVAIR IH SCH (08:00)
[2019-11-05] MEDS: PROMOD 30 ML DOSE PO SCH (08:00)
[2019-11-05] MEDS: ENSURE HIGH PROTEIN 237 ML CAN PO SCH (08:00)
[2019-11-05] MEDS: LIDOCAINE 4% PATCH TOP SCH (08:49)
[2019-11-05] MEDS: BACLOFEN 10 MG TAB PO SCH (08:50)
[2019-11-05] MEDS: VALSARTAN 160 MG TAB PO SCH (08:51)
[2019-11-05] MEDS: ASPIRIN EC 81 MG TAB PO SCH (08:51)
[2019-11-05] MEDS: MAGNESIUM OXIDE 400 MG TAB PO SCH (08:51)
[2019-11-05] MEDS: GABAPENTIN 100 MG CAP PO SCH (08:52)
[2019-11-05] MEDS: FUROSEMIDE 20 MG TABLET PO SCH (08:52)
[2019-11-05] MEDS: PANTOPRAZOLE 40MG TABLET PO SCH (08:52)
[2019-11-05] MEDS: APIXABAN 2.5 MG TABLET PO SCH (08:52)
[2019-11-05] MEDS: POTASSIUM CL SA 10 MEQ TAB PO SCH (08:52)
== END 2019-11-05 13:30 | DRG 65 ==
LOC: 5TH 09-26 20:20
PROVIDERS: ADMIT Psychiatry & Neurology Neurology with Special Qualifications in Child Neurology; ATTEND Psychiatry & Neurology Neurology with Special Qualifications in Child Neurology
DX: I63.89 Other cerebral infarction (principal); G81.94 Hemiplegia, unspecified affecting left nondominant side; I82.442 Acute embolism and thrombosis of left tibial vein; R47.1 Dysarthria and anarthria; R13.10 Dysphagia, unspecified
CPT/HCPCS: 36415; 72170; 74018; 74230; 80048; 80053; 81001; 82040; 83735; 84132; 84134; 85025; 87077; 87086; 87088; 87186; 92507; 92523; 92526; 92610; 92611; 93970; 93971; 97032; 97110; 97112; 97116; 97124; 97127; 97140; 97161; 97530; 97542; J7606

== ENCOUNTER 2021-02-25 18:24 | Inpatient (IN) | payer OTHER ==
--- NOTE | 2021-02-25 18:56 | RAD REPORT ---
EXAM DESCRIPTION: CT - Ct Stroke Brain Wo Cont - 02/25/2021 6:47 pm CLINICAL HISTORY: APHASIA COMPARISON: HEAD BRAIN W O CONTRAST dated 07/18/2009 TECHNIQUE: All CT scans are performed using dose optimization technique as appropriate and may inclu de automated exposure control or mA/KV adjustment according to patient size. FINDINGS: No intracranial hemorrhage, hydrocephalus or extra-axial fluid collection.No areas of brai n edema or evidence of midline shift. Remote appearing large right MCA territory infarct predominantl y centered in the right frontal and parietal lobes. There is encephalomalacia and gliosis. There are some intermixed areas of calcification. Remote right basal ganglia lacunar infarct. The paranasal sinuses and mastoids are clear. The calvarium is intact. IMPRESSION: Large remote appearing MCA territory infarct. A small superimposed acute infarct would b e difficult to exclude by CT. If there is high clinical concern for acute infarct, consider MRI. No a cute intracranial hemorrhage.
--- OUTSIDE RECORDS SUMMARY | 2021-02-25 19:00 | XMS REPORT | Continuity of Care Document ---
:1935 Author Organization [facility] t Address [address] [place] [address] Care Team Providers Name Role Phone Asked, Pcp Primary Care Physician Unavailable Gasper Fontana Attending Clinician Garalnd Randhawa Attending Clinician Deepa Hernandez Admitting Clinician Problems Condition Condition Condition Status Onset Resolution Last Treating Co mments Source Name Details Category Date Date Treatment Clinician Date ACUTE Diagnosis Active 2019-09-23 Mem oria ISCHEMIC 2-10 09:05:00 l RIGHT MCA ACUTE 00:00: Luciano n STROKE ISCHEMIC 00 RIGHT MCA STROKE Active 09/15/2019 [facility] CVA Diagnosis Active 2019-09-15 Mem oria 2-10 13:43:00 l CVA 00:00: Ottoniel 00 Active 09/15/2019 [facility] LUX Diagnosis Active 2019-09-15 Memoria BILLING 2-10 13:32:00 l 00:00: Orange LUX 00 BILLING Active 09/15/2019 [facility] Cerebral Problem Active 2020-12-04 Mem oria infarction 01:18:19 l (disorder) 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 infarction (disorder) [facility] 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 (disorder) cerebral arteries (disorder) Active [facility]2020 [facility] Hypertensi Problem Active 2020-12-04 M emoria ve 01:18:19 l disorder, Orange systemic Hypertensi arterial ve (disorder) disorder, systemic arterial (disorder) Active Problem 12/04/2020 [facility] Spasticity Problem Active 2020-12-04 M emoria (finding) 01:18:19 l Ottoniel Spasticity (finding) Active Problem 12/04/2020 [facility] CEREB Diagnosis Active 2019-09-23 Mem oria INFRC D/T 09:05:00 l UNSP OCCLS CEREB Crystal nn OR STENOS INFRC D/T OF UNSP OCCLS OR STENOS OF Active [facility] Allergies, Adverse Reactions, Alerts This patient has no known allergies or adverse reactions. Social History Social Habit Start Date Stop Date Quantity Comments Source Social History 2019-09-16 2019-09-16 [facility] 09:43:21 09:43:21 Sex Assigned At [address] 1935 [facility] ethodist 00:00:00 00:00:00 Medications Ordered Filled Start Stop Current Ordering Indication Dosage Frequency Signature Comments Components Source Medication Medication Date Date Medication? Clinician (SIG) Name Name Baclofen 2019-08 Yes 10 mg, PO, Mem oria 1-12 0 l 16:08: Refill(s) Omeprazole 2019-08 Yes 20 mg, PO, M emoria 1-12 Daily, 0 l 16:08: Refill(s) Furosemide 2019-08 Yes 40 mg, PO, M emoria 1-12 Daily, 0 l 16:08: Refill(s) Losartan 2019-08 Yes PO, Daily, Mem oria 1-12 0 l 16:08: Refill(s) Eliquis 2019-08 Yes PO, 0 Memoria 1-12 Refill(s) l 16:08: gabapentin 2019-08 Yes 100 mg, Hector imtiaz 1-12 PO, 0 l 16:08: Refill(s) Magnesium 2019-08 Yes 400 mg, Memor ia Oxide 1-12 PO, 0 l 16:08: Refill(s) Baclofen 2019-08 Yes 10 mg, PO, Mem oria 1-12 0 l 16:08: Refill(s) Omeprazole 2019-08 Yes 20 mg, PO, M emoria 1-12 Daily, 0 l 16:08: Refill(s) Furosemide 2019-08 Yes 40 mg, PO, M emoria 1-12 Daily, 0 l 16:08: Refill(s) Losartan 2019-08 Yes PO, Daily, Mem oria 1-12 0 l 16:08: Refill(s) Eliquis 2019-08 Yes PO, 0 Memoria 1-12 Refill(s) l 16:08: gabapentin 2019-08 Yes 100 mg, Hector imtiaz 1-12 PO, 0 l 16:08: Refill(s) Magnesium 2019-08 Yes 400 mg, Memor ia Oxide 1-12 PO, 0 l 16:08: Refill(s) remove No Notes: Memoria patch 2-22 Remove l 11:00: patch 12 Orange 00 hours after applicatio n each day. remove No Notes: Memoria patch 2-22 Remove l 11:00: patch 12 Ottoniel 00 hours after applicatio n each day. Lidocaine No Notes: Memori a Hydrochlori 2-21 Apply only l de 0.05 23:00: once for Luciano n MG/MG 00 up to 12 Transdermal hours in a Patch 24-hour [Lidoderm] period (12 hours on and 12 hours off). (Same as: Lidoderm) "Remove old patch before applicatio n of new patch" Lidocaine No Notes: Memori a Hydrochlori 2-21 Apply only l de 0.05 23:00: once for Luciano n MG/MG 00 up to 12 Transdermal hours in a Patch 24-hour [Lidoderm] period (12 hours on and 12 hours off). (Same as: Lidoderm) "Remove old patch before applicatio n of new patch" Lidocaine No 1 patch, Hector imtiaz Hydrochlori 2-21 Route: l de 0.05 19:46: TOP, Q12H, Herm eduardo MG/MG 00 PRN Pain Transdermal Score 4-6, Patch Start [Lidoderm] date: 09/26/19 13:46:00 GUM REMOVER, Duration: 30 day, Stop date: 10/26/19 13:45:00 CDT, Remove after 12 hours Lidocaine 2020-0 No 1 patch, Hector imtiaz Hydrochlori 2-21 Route: l de 0.05 19:46: TOP, Q12H, Herm eduardo MG/MG 00 PRN Pain Transdermal Score 4-6, Patch Start [Lidoderm] date: 09/26/19 13:46:00 GUM REMOVER, Duration: 30 day, Stop date: 10/26/19 13:45:00 CDT, Remove after 12 hours Aspirin 81 2020-0 Yes 81 mg = 1 Me moria MG Enteric 2-21 tab, PO, l Coated 15:05: Daily, 0 Orange Tablet 00 Refill(s) atorvastati 2020-0 Yes 80 mg = 1 M emoria n 80 mg 2-21 tab, PO, l oral tablet 15:05: Bedtime, 0 Ottoniel 00 Refill(s) clopidogrel 2020-0 Yes 75 mg = 1 M emoria 75 mg oral 2-21 tab, PO, l tablet 15:05: Daily, 0 Orange 00 Refill(s) labetalol 2020-0 Yes 200 mg = 1 Me moria 200 mg oral 2-21 tab, PO, l tablet 15:05: Q8H, 0 Orange 00 Refill(s) tamsulosin 2020-0 Yes 0.4 mg = 1 M emoria 0.4 mg oral 2-21 cap, PO, l capsule 15:05: After Ottoniel 00 Dinner, 0 Refill(s) melatonin 3 2020-0 Yes 3 mg = 1 Me moria mg oral 2-21 tab, PO, l tablet 15:05: Bedtime, 0 Crystal nn 00 Refill(s) Albuterol 2020-0 Yes 3 mL, NEB, Me moria 0.833 MG/ML 2-21 RTID, PRN l / 15:05: Respirator Ottoniel Ipratropium 00 y Path[address], [place] 0 0.167 MG/ML Refill(s) Inhalant Solution [DuoNeb] Budesonide 2020-0 Yes 2 Memoria 0.16 2-21 inhalation l MG/ACTUAT / 15:05: , Luciano n formoterol 00 INHALATION fumarate , RBID, 0 0.0045 Refill(s) MG/ACTUAT Metered Dose Inhaler Aspirin 81 2020-0 Yes 81 mg = 1 Me moria MG Enteric 2-21 tab, PO, l Coated 15:05: Daily, 0 Ottoniel Tablet 00 Refill(s) atorvastati 2020-0 Yes 80 mg = 1 M emoria n 80 mg 2-21 tab, PO, l oral tablet 15:05: Bedtime, 0 Ottoniel 00 Refill(s) clopidogrel 2020-0 Yes 75 mg = 1 M emoria 75 mg oral 2-21 tab, PO, l tablet 15:05: Daily, 0 Orange 00 Refill(s) labetalol 2020-0 Yes 200 mg = 1 Me moria 200 mg oral 2-21 tab, PO, l tablet 15:05: Q8H, 0 Ottoniel 00 Refill(s) tamsulosin 2020-0 Yes 0.4 mg = 1 M emoria 0.4 mg oral 2-21 cap, PO, l capsule 15:05: After Ottoniel 00 Dinner, 0 Refill(s) melatonin 3 2020-0 Yes 3 mg = 1 Me moria mg oral 2-21 tab, PO, l tablet 15:05: Bedtime, 0 Crystal nn 00 Refill(s) Albuterol 2020-0 Yes 3 mL, NEB, Me moria 0.833 MG/ML 2-21 RTID, PRN l / 15:05: Respirator Ottoniel Ipratropium [address], [place] 0 0.167 MG/ML Refill(s) Inhalant Solution [DuoNeb] Budesonide 2019-0 Yes 2 Memoria 0.16 2-21 inhalation l MG/ACTUAT / 15:05: , Luciano n formoterol 00 INHALATION fumarate , RBID, 0 0.0045 Refill(s) MG/ACTUAT Metered Dose Inhaler budesonide- 0 No Notes: Hector imtiaz formoterol 2-21 (Same as: l 160 mcg-4.5 14:16: Symbicort) Orange mcg/inh 00 WASTE: inhalation Aerosol - aerosol Return to with Pharmacy adapter budesonide- 2019-0 No Notes: Hector imtiaz formoterol 2-21 (Same as: l 160 mcg-4.5 14:16: Symbicort) Orange mcg/inh 00 WASTE: inhalation Aerosol - aerosol Return to with Pharmacy adapter Mucinex 2019-0 No Notes: Memoria 2-21 (Same as: l 03:00: Guaifenesi Orange 00 n LA, Humibid LA, Mucinex) "Do Not Crush" Take medication with plenty of water. Guanfacine 2020-0 No 1 mg, Memori a 2-21 Route: PO, l 03:00: Drug form: Ottoniel 00 TAB, Bedtime, Dosing Weight 68.182, kg, Start date: 09/25/19 21:00:00 GUM REMOVER, Duration: 30 day, Stop date: 10/24/19 21:00:00 CDT Mucinex 2020-0 No Notes: Memoria 2-21 (Same as: l 03:00: Guaifenesi Ottoniel 00 n LA, Humibid LA, Mucinex) "Do Not Crush" Take medication with plenty of water. Guanfacine 2020-0 No 1 mg, Memori a 2-21 Route: PO, l 03:00: Drug form: Ottoniel 00 TAB, Bedtime, Dosing Weight 68.182, kg, Start date: 09/25/19 21:00:00 GUM REMOVER, Duration: 30 day, Stop date: 10/24/19 21:00:00 CDT Advair HFA 2020-0 No 2 puff, Hector imtiaz 115 mcg-21 2-20 Route: l mcg/inh 23:00: INHALATION Herm eduardo inhalation 00 , Dosing aerosol Weight with 68.182, adapter kg, BID, Start date: 09/25/19 17:00:00 GUM REMOVER, Duration: 30 day, Stop date: 10/25/19 9:00:00 CDT Advair HFA 2020-0 No 2 puff, Hector imtiaz 115 mcg-21 2-20 Route: l mcg/inh 23:00: INHALATION Herm eduardo inhalation 00 , Dosing aerosol Weight with 68.182, adapter kg, BID, Start date: 09/25/19 17:00:00 GUM REMOVER, Duration: 30 day, Stop date: 10/25/19 9:00:00 CDT Albuterol 2020-0 No Notes: Memori a 0.833 MG/ML 2-20 (Same as: l / 17:00: Duoneb) Orange Ipratropium 00 [place] 0.167 MG/ML Inhalant Solution [DuoNeb] Albuterol 2020-0 No Notes: Memori a 0.833 MG/ML 2-20 (Same as: l / 17:00: Duoneb) Ottoniel Ipratropium 00 [place] 0.167 MG/ML Inhalant Solution [DuoNeb] Aspirin 81 0 No Notes: Memor ia MG Enteric 2-20 Take with l Coated 16:00: food. Orange Tablet 00 Potassium 0 No Notes: Memori a Chloride 2-20 (Same as: l 1.33 MEQ/ML 16:00: Potassium H ermann Oral 00 Chloride) Solution Aspirin 81 0 No Notes: Memor ia MG Enteric 2-20 Take with l Coated 16:00: food. Orange Tablet 00 Potassium 0 No Notes: Memori a Chloride 2-20 (Same as: l 1.33 MEQ/ML 16:00: Potassium H ermann Oral 00 Chloride) Solution Magnesium 0 No Notes: Memori a Sulfate 2-20 WASTE: F/P l 14:11: - Sink; E Orange - [facility] Trash [facility] Magnesium No Notes: Memori a Sulfate 2-20 WASTE: F/P l 14:11: - Sink; E Ottoniel - [facility] Trash Bin Plavix No Notes: Memoria 2-19 (Same As: l 20:29: Plavix) Ottoniel Plavix No Notes: Memoria 2-19 (Same As: l 20:29: Plavix) Ottoniel 00 Albuterol No Notes: Memori a 0.833 MG/ML 2-19 (Same as: l / 20:27: Duoneb) Orange Ipratropium 00 [place] 0.167 MG/ML Inhalant Solution [DuoNeb] Albuterol 0 No Notes: Memori a 0.833 MG/ML 2-19 (Same as: l / 20:27: Duoneb) Orange Ipratropium 00 [place] 0.167 MG/ML Inhalant Solution [DuoNeb] Labetalol 0 No Notes: Memori a 2-18 With food. l 23:40: (Same as:Trandat e, Normodyne) Labetalol 0 No Notes: Memori a 2-18 With food. l 23:40: (Same as:Trandat e, Normodyne) Docusate 2020-0 No Notes: Memoria Sodium 50 2-18 (Same as l MG / 15:00: Senokot-S) Orange sennosides, 00 Equiv. to RESIDENTIAL 8.6 MG Nikki-Colac Oral Tablet e. Docusate 2020-0 No Notes: Memoria Sodium 50 2-18 (Same as l MG / 15:00: Senokot-S) Ottoniel sennosides, 00 Equiv. to RESIDENTIAL 8.6 MG Nikki-Colac Oral Tablet e. magnesium 2020-0 No Notes: Memori a citrate 2-17 (Same as: l 58.2 MG/ML 23:30: Citrate of H ermann Oral 00 Magnesia) Solution Concentrat ion: 1.745 gm / 30 mL magnesium 2020-0 No Notes: Memori a citrate 2-17 (Same as: l 58.2 MG/ML 23:30: Citrate of H ermann Oral 00 Magnesia) Solution Concentrat ion: 1.745 gm / 30 mL Potassium 2020-0 No Notes: Memori a Chloride 2-16 (Same as: l 1.33 MEQ/ML 23:00: Potassium H ermann Oral 00 Chloride) Solution Potassium 2020-0 No Notes: Memori a Chloride 2-16 (Same as: l 1.33 MEQ/ML 23:00: Potassium H ermann Oral 00 Chloride) Solution Cardizem 2020-0 No 60 mg, Memoria 2-16 Route: PO, l 22:00: Drug form: Orange 00 TAB, Q8H, Start date: 09/21/19 16:00:00 GUM REMOVER, Duration: 30 day, Stop date: 10/21/19 8:00:00 CDT, 0 Cardizem 2020-0 No 60 mg, Memoria 2-16 Route: PO, l 22:00: Drug form: Ottoniel 00 TAB, Q8H, Start date: 09/21/19 16:00:00 GUM REMOVER, Duration: 30 day, Stop date: 10/21/19 8:00:00 CDT, 0 Coreg 2020-0 No 25 mg, 1 Memoria 2-16 tab, l 20:00: Route: PO, Orange 00 Drug form: TAB, Q12H, Dosing Weight 68.182, kg, Start date: 09/21/19 14:00:00 GUM REMOVER, Duration: 30 day, Stop date: 10/21/19 9:00:00 CDT, 0 Coreg 2020-0 No 25 mg, 1 Memoria 2-16 tab, l 20:00: Route: PO, Orange 00 Drug form: TAB, Q12H, Dosing Weight 68.182, kg, Start date: 09/21/19 14:00:00 GUM REMOVER, Duration: 30 day, Stop date: 10/21/19 9:00:00 CDT, 0 Labetalol 2020-0 No 20 mg, 4 Hector imtiaz 2-16 mL, Route: l 18:10: IV, Drug Ottoniel 00 form: INJ, Q6H, Dosing Weight 68.182, kg, PRN Hypertensi on, Start date: 09/21/19 12:10:00 GUM REMOVER, Duration: 30 day, Stop date: 10/21/19 12:09:00 CDT, 0 Hydralazine 2020-0 No Notes: Hector imtiaz 2-16 (Same as: l 18:10: Apresoline Ottoniel 00 ) Push over 5 minutes Labetalol 2020-0 No 20 mg, 4 Hector imtiaz 2-16 mL, Route: l 18:10: IV, Drug Orange 00 form: INJ, Q6H, Dosing Weight 68.182, kg, PRN Hypertensi on, Start date: 09/21/19 12:10:00 GUM REMOVER, Duration: 30 day, Stop date: 10/21/19 12:09:00 CDT, 0 Hydralazine 2020-0 No Notes: Hector imtiaz 2-16 (Same as: l 18:10: Apresoline Ottoniel 00 ) Push over 5 minutes Labetalol 2020-0 No 10 mg, 2 Hector imtiaz 2-16 mL, Route: l 18:07: IV, Drug Ottoniel 00 form: INJ, ONCE, Dosing Weight 68.182, kg, Start date: 09/21/19 12:07:00 GUM REMOVER, Stop date: 09/21/19 12:07:00 GUM REMOVER, 0 Labetalol 2020-0 No 10 mg, 2 Hector imtiaz 2-16 mL, Route: l 18:07: IV, Drug Orange 00 form: INJ, ONCE, Dosing Weight 68.182, kg, Start date: 09/21/19 12:07:00 GUM REMOVER, Stop date: 09/21/19 12:07:00 GUM REMOVER, 0 Diltiazem 2020-0 No 120 mg, Memor ia 2-16 Route: PO, l 15:00: Drug form: Orange 00 ERCAP, Daily, Dosing Weight 68.182, kg, Start date: 09/21/19 9:00:00 GUM REMOVER, Duration: 30 day, Stop date: 10/20/19 9:00:00 CDT Diltiazem 2020-0 No 120 mg, Memor ia 2-16 Route: PO, l 15:00: Drug form: Ottoniel 00 ERCAP, Daily, Dosing Weight 68.182, kg, Start date: 09/21/19 9:00:00 GUM REMOVER, Duration: 30 day, Stop date: 10/20/19 9:00:00 CDT Cardizem 2020-0 No Notes: Memoria 2-16 (Same as: l 14:20: Cardizem) Ottoniel 00 Before meals Cardizem 2020-0 No Notes: Memoria 2-16 (Same as: l 14:20: Cardizem) Orange 00 Before meals Potassium 2020-0 No Notes: Memori a Chloride 2-15 (Same as: l 14:02: K-Dur 20) Ottoniel 00 "Do Not Crush" Give with food and full glass of water For patients unable to swallow tablet, dissolve in one half glass of water. Allow about 2 minutes for the tablets to disintegra te. Stir before giving to prepare slurry and administer . Please exclude Patient s with feeding tube less than 14 Hungarian (Dobhoff, J-tube etc) and pediatric and patients. Potassium 2020-0 No Notes: Memori a Chloride 2-15 (Same as: l 14:02: K-Dur 20) Orange 00 "Do Not Crush" Give with food and full glass of water For patients unable to swallow tablet, dissolve in one half glass of water. Allow about 2 minutes for the tablets to disintegra te. Stir before giving to prepare slurry and administer . Please exclude Patient s with feeding tube less than 14 Hungarian (Dobhoff, J-tube etc) and pediatric and patients. Potassium 2020-0 No 40 mEq, 2 Mem oria Chloride 2-14 tab, l 1.33 MEQ/ML 20:00: Route: PO, Orange Oral 00 Drug form: Solution ERTAB, ONCE, Dosing Weight 68.182, kg, Start date: 09/19/19 14:00:00 GUM REMOVER, Stop date: 09/19/19 14:00:00 GUM REMOVER, 0 Potassium 2020-0 No 40 mEq, 2 Mem oria Chloride 2-14 tab, l 1.33 MEQ/ML 20:00: Route: PO, Orange Oral 00 Drug form: Solution ERTAB, ONCE, Dosing Weight 68.182, kg, Start date: 09/19/19 14:00:00 GUM REMOVER, Stop date: 09/19/19 14:00:00 GUM REMOVER, 0 valsartan 2019-0 No Notes: Memori a 2-14 Same as l 15:00: Diovan Orange valsartan 2019-0 No Notes: Memori a 2-14 Same as l 15:00: Diovan Orange Potassium 2020-0 Yes 40 mEq, 2 Mem oria Chloride 2-14 tab, l 1.33 MEQ/ML 12:42: Route: PO, Ottoniel Oral 00 Drug form: Solution ERTAB, ONCE, Dosing Weight 68.182, kg, Start date: 09/19/19 6:42:00 GUM REMOVER, Stop date: 09/19/19 6:42:00 GUM REMOVER, 0 Potassium 2020-0 Yes 40 mEq, 2 Mem oria Chloride 2-14 tab, l 1.33 MEQ/ML 12:42: Route: PO, Orange Oral 00 Drug form: Solution ERTAB, ONCE, Dosing Weight 68.182, kg, Start date: 09/19/19 6:42:00 GUM REMOVER, Stop date: 09/19/19 6:42:00 GUM REMOVER, 0 valsartan 2019-0 No Notes: Memori a 2-13 Same as l 23:59: Diovan Ottoniel valsartan 2019-0 No Notes: Memori a 2-13 Same as l 23:59: Diovan Orange Flomax 2019-0 No Notes: Memoria 2-13 (Same As: l 23:00: Flomax) Orange 00 "Do Not Crush" Flomax 2019-0 No Notes: Memoria 2-13 (Same As: l 23:00: Flomax) Orange 00 "Do Not Crush" Sodium 2020-0 No 1,000 mL, Memori a Chloride 2-13 Rate: 50 l 0.9% IV 21:51: ml/hr, Ottoniel 1,000 mL 00 Infuse over: 20 hr, Route: IV, Dosing Weight 68.182 kg, Total Volume: 1,000, Start date: 09/18/19 15:51:00 GUM REMOVER, Duration: 30 day, Stop date: 10/18/19 15:50:00 CDT, 1.68, m2, 0 Sodium 2020-0 No 1,000 mL, Memori a Chloride 2-13 Rate: 50 l 0.9% IV 21:51: ml/hr, Ottoniel 1,000 mL 00 Infuse over: 20 hr, Route: IV, Dosing Weight 68.182 kg, Total Volume: 1,000, Start date: 09/18/19 15:51:00 GUM REMOVER, Duration: 30 day, Stop date: 10/18/19 15:50:00 CDT, 1.68, m2, 0 valsartan 2020-0 No Notes: Memori a 2-13 Same as l 15:00: Diovan Ottoniel 00 Potassium 2020-0 No Notes: Memori a Chloride 2-13 (Same as: l 1.33 MEQ/ML 15:00: Potassium H ermann Oral 00 Chloride) Solution valsartan 2020-0 No Notes: Memori a 2-13 Same as l 15:00: Diovan Ottoniel 00 Potassium 2020-0 No Notes: Memori a Chloride 2-13 (Same as: l 1.33 MEQ/ML 15:00: Potassium H ermann Oral 00 Chloride) Solution Potassium 2020-0 No Notes: Memori a Chloride 2-13 (Same as: l 12:02: K-Dur 20) Orange 00 "Do Not Crush" Give with food and full glass of water For patients unable to swallow tablet, dissolve in one half glass of water. Allow about 2 minutes for the tablets to disintegra te. Stir before giving to prepare slurry and administer . Please exclude Patient s with feeding tube less than 14 Hungarian (Dobhoff, J-tube etc) and pediatric and patients. Potassium 2020-0 No Notes: Memori a Chloride 2-13 (Same as: l 12:02: K-Dur 20) Ottoniel 00 "Do Not Crush" Give with food and full glass of water For patients unable to swallow tablet, dissolve in one half glass of water. Allow about 2 minutes for the tablets to disintegra te. Stir before giving to prepare slurry and administer . Please exclude Patient s with feeding tube less than 14 Hungarian (Dobhoff, J-tube etc) and pediatric and patients. Melatonin 3 No Notes: Hector imtiaz MG Extended 2-13 (Same as: l Release 06:10: Melatonin) Herm eduardo Tablet 00 Melatonin 3 No Notes: Hector imtiaz MG Extended 2-13 (Same as: l Release 06:10: Melatonin) Herm eduardo Tablet 00 NS (Bolus) 2019-0 No 1,000 mL, Me moria IV 2-12 1,000 l 20:42: ml/hr, Ottoniel 00 Infuse Over: 1 hr, Route: IV, 1,000, Drug form: INJ, ONCE, Priority: STAT, Dosing Weight 68.182 kg, Start date: 09/17/19 14:42:00 GUM REMOVER, Stop date: 09/17/19 14:42:00 GUM REMOVER, 0 NS (Bolus) No 1,000 mL, Me moria IV 2-12 1,000 l 20:42: ml/hr, Orange Infuse Over: 1 hr, Route: IV, 1,000, Drug form: INJ, ONCE, Priority: STAT, Dosing Weight 68.182 kg, Start date: 09/17/19 14:42:00 GUM REMOVER, Stop date: 09/17/19 14:42:00 GUM REMOVER, 0 Aspirin 2019- No Notes: Memoria 2-12 Take with l 18:45: food. Orange 00 Aspirin 2019-0 No Notes: Memoria 2-12 Take with l 18:45: food. Ottoniel Azithromyci No Notes: Hector imtiaz n 2-12 Take 1 l 16:30: hour Ottoniel 00 before or 2 hours after meals. (Same As: Zithromax) Azithromyci 2019-0 No Notes: Hector imtiaz n 2-12 Take 1 l 16:30: hour Ottoniel 00 before or 2 hours after meals. (Same As: Zithromax) Potassium 2019-0 No Notes: Memori a Chloride 2-12 (Same as: l 1.33 MEQ/ML 16:28: Potassium H ermann Oral 00 Chloride) Solution Potassium 2019-0 No Notes: Memori a Chloride 2-12 (Same as: l 1.33 MEQ/ML 16:28: Potassium H ermann Oral 00 Chloride) Solution Coreg 2020-0 No Notes: Memoria 2-12 Give with l 15:00: food. Ottoniel 00 (Same As: Coreg) Coreg 2020-0 No Notes: Memoria 2-12 Give with l 15:00: food. Orange 00 (Same As: Coreg) Potassium 2020-0 No Notes: Memori a Chloride 2-12 (Same as: l 12:00: KCL) Orange 00 Infuse over 2 hours. Potassium 2020-0 No Notes: Memori a Chloride 2-12 (Same as: l 12:00: KCL) Orange 00 Infuse over 2 hours. Potassium 2020-0 No Notes: Memori a Chloride 2-12 (Same as: l 1.33 MEQ/ML 11:17: Potassium H ermann Oral 00 Chloride) Solution Potassium 2020-0 No Notes: Memori a Chloride 2-12 (Same as: l 1.33 MEQ/ML 11:17: Potassium H ermann Oral 00 Chloride) Solution Ceftriaxone 2020-0 No Notes: Hector imtiaz 2-11 (Same As: l 22:00: Rocephin). Ottoniel 00 MEDICATION WASTE Product Size: 1000 mg Product Wasted: _0__ mg Ceftriaxone 2020-0 No Notes: Hector imtiaz 2-11 (Same As: l 22:00: Rocephin). Ottoniel 00 MEDICATION WASTE Product Size: 1000 mg Product Wasted: _0__ mg Hydralazine 2020-0 No Notes: Hector imtiaz 2-11 (Same as: l 20:37: Apresoline Orange 00 ) Hydralazine 2020-0 No Notes: Hector imtiaz 2-11 (Same as: l 20:37: Apresoline Ottoniel 00 ) Coreg 2020-0 No Notes: Memoria 2-11 Give with l 20:36: food. Orange 00 (Same As: Coreg) Sodium 2020-0 No 1,000 mL, Memori a Chloride 2-11 Rate: 100 l 0.9% IV 20:36: ml/hr, Ottoniel 1,000 mL 00 Infuse over: 10 hr, Route: IV, Dosing Weight 68.182 kg, Total Volume: 1,000, Start date: 09/16/19 14:36:00 GUM REMOVER, Duration: 30 day, Stop date: 10/16/19 13:36:00 CDT, 1.68, m2, 0 Coreg 2020-0 No Notes: Memoria 2-11 Give with l 20:36: food. Orange 00 (Same As: Coreg) Sodium 2020-0 No 1,000 mL, Memori a Chloride 2-11 Rate: 100 l 0.9% IV 20:36: ml/hr, Ottoniel 1,000 mL 00 Infuse over: 10 hr, Route: IV, Dosing Weight 68.182 kg, Total Volume: 1,000, Start date: 09/16/19 14:36:00 GUM REMOVER, Duration: 30 day, Stop date: 10/16/19 13:36:00 CDT, 1.68, m2, 0 Tylenol 2020-0 No 100.4 F, Memor ia 2-11 Start l 20:33: date: 09/16/19 14:33:00 GUM REMOVER, Duration: 30 day, Stop date: 10/16/19 14:32:00 CDT, 0 Motrin 2020-0 No 100.4 F, Memori a 2-11 Start l 20:33: date: 09/16/19 14:33:00 GUM REMOVER, Duration: 30 day, Stop date: 10/16/19 14:32:00 CDT, 0 Tylenol 2020-0 No 100.4 F, Memor ia 2-11 Start l 20:33: date: 09/16/19 14:33:00 GUM REMOVER, Duration: 30 day, Stop date: 10/16/19 14:32:00 CDT, 0 Motrin 2020-0 No 100.4 F, Memori a 2-11 Start l 20:33: date: 09/16/19 14:33:00 GUM REMOVER, Duration: 30 day, Stop date: 10/16/19 14:32:00 CDT, 0 heparin 2020-0 No Notes: Memoria 2-11 porcine l 18:45: heparin Ottoniel 00 heparin 2020-0 No Notes: Memoria 2-11 porcine l 18:45: heparin valsartan 2020-0 No Notes: Memori a 2-11 Same as l 18:05: Diovan valsartan 2020-0 No Notes: Memori a 2-11 Same as l 18:05: Diovan Orange 00 Sodium 2020-0 No 1,000 mL, Memori a Chloride 2-11 Rate: 100 l 0.9% IV 17:42: ml/hr, Ottoniel 1,000 mL 00 Infuse over: 10 hr, Route: IV, Dosing Weight 68.182 kg, Total Volume: 1,000, Start date: 09/16/19 11:42:00 GUM REMOVER, Duration: 30 day, Stop date: 10/16/19 11:41:00 CDT, 1.68, m2, 0 Sodium 2020-0 No 1,000 mL, Memori a Chloride 2-11 Rate: 100 l 0.9% IV 17:42: ml/hr, Orange 1,000 mL 00 Infuse over: 10 hr, Route: IV, Dosing Weight 68.182 kg, Total Volume: 1,000, Start date: 09/16/19 11:42:00 GUM REMOVER, Duration: 30 day, Stop date: 10/16/19 11:41:00 CDT, 1.68, m2, 0 pantoprazol 2020-0 No Notes: For Memoria e 2-11 IV push l 15:00: reconstitu Orange 00 te with 10 ml 0.9% sodium chloride and push over 2 minutes. (Same as: Protonix) Zosyn 2020-0 No Notes: Memoria 2-11 (Same as: l 15:00: Zosyn) Dosing based on Piperacill in component MEDICATION WASTE Product Size: 3375 mg Product Wasted: _0__ mg pantoprazol 2020-0 No Notes: For Memoria e 2-11 IV push l 15:00: reconstitu Orange 00 te with 10 ml 0.9% sodium chloride and push over 2 minutes. (Same as: Protonix) Zosyn 2020-0 No Notes: Memoria 2-11 (Same as: l 15:00: Zosyn) Orange 00 Dosing based on Piperacill in component MEDICATION WASTE Product Size: 3375 mg Product Wasted: _0__ mg Acetaminoph 2020-0 No Notes: Do M emoria en 2-11 not exceed l 14:50: 4 gm/day. Orange 00 (Same as: Tylenol) Acetaminoph 2020-0 No Notes: Do M emoria en 2-11 not exceed l 14:50: 4 gm/day. Orange 00 (Same as: Tylenol) vancomycin 2019-0 No 2000 mg: Me moria + Sodium 2-11 infuse l Chloride 14:16: over 2.5 Crystal nn 0.9% IV 250 00 hours For mL adult patients only: Round to nearest 250 mg per Medical Staff approval MEDICATION WASTE Product Size: 1000 mg Product Wasted: ___ mg vancomycin 2019-0 No 2000 mg: Me moria + Sodium 2-11 infuse l Chloride 14:16: over 2.5 Crystal nn 0.9% IV 250 00 hours For mL adult patients only: Round to nearest 250 mg per Medical Staff approval MEDICATION WASTE Product Size: 1000 mg Product Wasted: ___ mg Potassium 2020-0 No Notes: Memori a Chloride 2-11 (Same as: l 1.33 MEQ/ML 14:12: Potassium H ermann Oral 00 Chloride) Solution Potassium 2020-0 No Notes: Memori a Chloride 2-11 (Same as: l 1.33 MEQ/ML 14:12: Potassium H ermann Oral 00 Chloride) Solution Vancomycin 2019-0 No 1,500 mg, Me moria 2-11 Route: l 14:00: IVPB, Drug Ottoniel 00 form: INJ, [id number], Dosing Weight 68.182, kg, Start date: 09/16/19 8:00:00 GUM REMOVER, Duration: 7 day, Stop date: 09/22/19 20:00:00 GUM REMOVER, ABX Indication : Bacteremia Vancomycin 2019-0 No 1,500 mg, Me moria 2-11 Route: l 14:00: IVPB, Drug Orange 00 form: INJ, [id number], Dosing Weight 68.182, kg, Start date: 09/16/19 8:00:00 GUM REMOVER, Duration: 7 day, Stop date: 09/22/19 20:00:00 GUM REMOVER, ABX Indication : Bacteremia Tylenol 2019-0 No Notes: Max Hector imtiaz 2-11 acetaminop l 13:32: hen = 4000 Orange 00 mg/day (4 gm/day). (Same as: Tylenol) Tylenol 2019-0 No Notes: Max Hector imtiaz 2-11 acetaminop l 13:32: hen = 4000 Ottoniel 00 mg/day (4 gm/day). (Same as: Tylenol) Potassium No 10 mEq, Memor ia Chloride 2- Route: l 13:00: IVPB, Q1H, Orange 00 Dosing Weight 68.182, kg, Total Dose = 60 meq, Start date: 09/16/19 7:00:00 GUM REMOVER, Duration: 6 doses or times, Stop date: 09/16/19 12:00:00 GUM REMOVER, Periphe ral Line Potassium No 10 mEq, Memor ia Chloride 2 Route: l 13:00: IVPB, Q1H, Ottoniel 00 Dosing Weight 68.182, kg, Total Dose = 60 meq, Start date: 09/16/19 7:00:00 GUM REMOVER, Duration: 6 doses or times, Stop date: 09/16/19 12:00:00 GUM REMOVER, Periphe ral Line Ativan No Notes: Memoria 2-11 (Same as: l 10:55: Ativan) Ativan No Notes: Memoria 2-11 (Same as: l 10:55: Ativan) Benadryl No Notes: Memoria 2-11 (Same as: l 06:04: Benadryl) Benadryl No Notes: Memoria 2-11 (Same as: l 06:04: Benadryl) Compazine No Notes: Memori a 2-11 (Same as: l 06:03: Compazine) Ottoniel 00 Compazine No Notes: Memori a 2-11 (Same as: l 06:03: Compazine) Tylenol 0 No 67 kg; Memoria 2-11 Pediatric l 04:31: Dosing Tylenol 0 No 67 kg; Memoria 2-11 Pediatric l 04:31: Dosing atorvastati No Notes: Hector imtiaz n 2-11 Same as l 03:00: Lipitor Saline 0 No Notes: Memoria Flush 0.9% 2-11 (Same as: l 03:00: BD Posiflush) atorvastati 2020-0 No Notes: Hector imtiaz n 2-11 Same as l 03:00: Lipitor Orange Saline 2019-0 No Notes: Memoria Flush 0.9% 2-11 (Same as: l 03:00: BD Ottoniel Posiflush) valsartan 2019-0 Yes 320 mg = 1 Me moria 320 mg oral 2-11 tab, PO, l tablet 01:13: Daily, 0 Orange 00 Refill(s) Hydrochloro 2020-0 No 25 mg = 1 M emoria thiazide 25 2-11 tab, PO, l MG Oral 01:13: Daily, 0 Luciano n Tablet 00 Refill(s) Advair 2019-0 Yes INHALATION Memor ia Diskus 250 2-11 , BID, 0 l mcg-50 mcg 01:13: Refill(s) He rmann inhalation 00 powder diltiazem 2019-0 No 240 mg = 1 Me moria 240 mg/24 2-11 tab, PO, l hours oral 01:13: Daily, 0 Her ortez tablet, 00 Refill(s) extended release potassium 2019-0 Yes 10 mEq = 1 Me moria chloride 10 2-11 cap, PO, l mEq oral 01:13: BID, 0 Orange capsule, 00 Refill(s) extended release diazepam 5 2019-0 No 5 mg = 1 Mem oria mg oral 2-11 tab, PO, l tablet 01:13: TID, 0 Orange 00 Refill(s) valsartan 2019-0 Yes 320 mg = 1 Me moria 320 mg oral 2-11 tab, PO, l tablet 01:13: Daily, 0 Orange 00 Refill(s) Hydrochloro 2020-0 No 25 mg = 1 M emoria thiazide 25 2-11 tab, PO, l MG Oral 01:13: Daily, 0 Luciano n Tablet 00 Refill(s) Advair 2019-0 Yes INHALATION Memor ia Diskus 250 2-11 , BID, 0 l mcg-50 mcg 01:13: Refill(s) He rmann inhalation 00 powder diltiazem 2019-0 No 240 mg = 1 Me moria 240 mg/24 2-11 tab, PO, l hours oral 01:13: Daily, 0 Her ortez tablet, 00 Refill(s) extended release potassium 2019-0 Yes 10 mEq = 1 Me moria chloride 10 2-11 cap, PO, l mEq oral 01:13: BID, 0 capsule, 00 Refill(s) extended release diazepam 5 2019-0 No 5 mg = 1 Mem oria mg oral 2-11 tab, PO, l tablet 01:13: TID, 0 Refill(s) potassium 2019- No Notes: Memori a chloride 20 2-10 (Same as: l mEq oral 21:55: K-Dur 20) Herm eduardo tablet, 00 "Do Not extended Crush" release Give with (KCL) food and full glass of water For patients unable to swallow tablet, dissolve in one half glass of water. Allow about 2 minutes for the tablets to disintegra te. Stir before giving to prepare slurry and administer . Please exclude Patient s with feeding tube less than 14 Hungarian (Dobhoff, J-tube etc) and pediatric and patients. Magnesium No Notes: Memori a Sulfate 2-10 WASTE: F/P l 21:55: - Sink; E - Municipal Trash Bin potassium No Notes: Memori a chloride 20 2-10 (Same as: l mEq oral 21:55: K-Dur 20) Herm eduardo tablet, 00 "Do Not extended Crush" release Give with (KCL) food and full glass of water For patients unable to swallow tablet, dissolve in one half glass of water. Allow about 2 minutes for the tablets to disintegra te. Stir before giving to prepare slurry and administer . Please exclude Patient s with feeding tube less than 14 Hungarian (Dobhoff, J-tube etc) and pediatric and patients. Magnesium No Notes: Memori a Sulfate 2-10 WASTE: F/P l 21:55: - Sink; E - Municipal Trash Bin Ex-Lax Milk No Notes: Hector imtiaz of Magnesia 2-10 (Same as: l 20:34: Milk of Magncarmine, MOM) Ex-Lax Milk No Notes: Hector imtiaz of Magnesia 2-10 (Same as: l 20:34: Milk of Magncarmine, MOM) Labetalol No 105 mmHg, Me moria 2-10 Start l 19:54: date: 09/15/19 13:54:00 GUM REMOVER, Duration: 30 day, Stop date: 10/15/19 14:53:00 CDT, 0 Saline 2020-0 No Notes: Memoria Flush 0.9% 2-10 (Same as: l 19:54: BD Orange 00 Posiflush) Labetalol 2020-0 No 105 mmHg, Me moria 2-10 Start l 19:54: date: Ottoniel 00 09/15/19 13:54:00 GUM REMOVER, Duration: 30 day, Stop date: 10/15/19 14:53:00 CDT, 0 Saline 2020-0 No Notes: Memoria Flush 0.9% 2-10 (Same as: l 19:54: BD Orange 00 Posiflush) Labetalol 2020-0 No 10 mg, Memori a 2-10 Route: l 18:46: IVP, Drug Orange 00 form: INJ, ONCE, Dosing Weight 68.182, kg, Priority: STAT, Start date: 09/15/19 12:46:00 GUM REMOVER, Stop date: 09/15/19 12:46:00 GUM REMOVER Labetalol 2020-0 No 10 mg, Memori a 2-10 Route: l 18:46: IVP, Drug Ottoniel 00 form: INJ, ONCE, Dosing Weight 68.182, kg, Priority: STAT, Start date: 09/15/19 12:46:00 GUM REMOVER, Stop date: 09/15/19 12:46:00 GUM REMOVER Sodium 2020-0 No 1,000 mL, Memori a Chloride 2-10 Rate: 50 l 0.9% IV 18:45: ml/hr, Orange 1,000 mL 00 Infuse over: 20 hr, Route: IV, Dosing Weight 68.182 kg, Total Volume: 1,000, Priority: STAT, Start date: 09/15/19 12:45:00 GUM REMOVER, Duration: 30 day, Stop date: 10/15/19 12:44:00 CDT, 1.68, m2, 0 Sodium 2020-0 No 50 mL, Memoria Chloride 2-10 Rate: 50 l 0.9% IV 50 18:45: ml/hr, Crystal nn mL 00 Infuse over: 1 hr, Route: IV, Dosing Weight 68.182 kg, Total Volume: 50, Use to FLUSH line AFTER tPA infusion., Priority: Routine, Start date: 09/15/19 12:45:00 GUM REMOVER, Duration: 1 doses or times, Stop date: 09/15/19 13:44:00 GUM REMOVER,... Alteplase 2020-0 No 6.1364 mg, Me moria 2-10 Route: IV, l 18:45: ONCE, Orange 00 Dosing Weight 68.182, kg, Priority: STAT, Start date: 09/15/19 12:45:00 GUM REMOVER, Stop date: 09/15/19 12:45:00 GUM REMOVER Sodium 2020-0 No 1,000 mL, Memori a Chloride 2-10 Rate: 50 l 0.9% IV 18:45: ml/hr, Orange 1,000 mL 00 Infuse over: 20 hr, Route: IV, Dosing Weight 68.182 kg, Total Volume: 1,000, Priority: STAT, Start date: 09/15/19 12:45:00 GUM REMOVER, Duration: 30 day, Stop date: 10/15/19 12:44:00 CDT, 1.68, m2, 0 Sodium 2020-0 No 50 mL, Memoria Chloride 2-10 Rate: 50 l 0.9% IV 50 18:45: ml/hr, Crystal nn mL 00 Infuse over: 1 hr, Route: IV, Dosing Weight 68.182 kg, Total Volume: 50, Use to FLUSH line AFTER tPA infusion., Priority: Routine, Start date: 09/15/19 12:45:00 GUM REMOVER, Duration: 1 doses or times, Stop date: 09/15/19 13:44:00 GUM REMOVER,... Alteplase 2020-0 No 6.1364 mg, Me moria 2-10 Route: IV, l 18:45: ONCE, Dosing Weight 68.182, kg, Priority: STAT, Start date: 09/15/19 12:45:00 GUM REMOVER, Stop date: 09/15/19 12:45:00 GUM REMOVER Iohexol 2020-0 No 60 mL, Memoria 2-10 Route: l 18:18: IVP, Drug Form: SOLN, kg, ONCALL, STAT, Start date: 09/15/19 12:18:00 GUM REMOVER, Duration: 1 doses or times, Dose = 2.2ml/kg, Max dose = 100ml -- "To be infused by Radiology Staff ONLY" Iohexol 2020-0 No 60 mL, Memoria 2-10 Route: l 18:18: IVP, Drug Orange 00 Form: SOLN, kg, ONCALL, STAT, Start date: 09/15/19 12:18:00 GUM REMOVER, Duration: 1 doses or times, Dose = 2.2ml/kg, Max dose = 100ml -- "To be infused by Radiology Staff ONLY" Nicardipine No Notes: Hector imtiaz 2-10 Same as: l 18:11: Cardene Orange 00 Concentrat ion: (0.2 mg /1 ml ) Nicardipine No Notes: Hector imtiaz 2-10 Same as: l 18:11: Cardene Ottoniel 00 Concentrat ion: (0.2 mg /1 ml ) Saline No Notes: Memoria Flush 0.9% 2-10 Same as: l 17:53: BD Orange 00 Posiflush Sterile Saline No Notes: Memoria Flush 0.9% 2-10 Same as: l 17:53: BD Orange 00 Posiflush Sterile Advair Advair Yes Mumtaz not [facility] Diskus Diskus [facility] defined [facility] potassium potassium Yes Mumtaz not [facility] Valsartan Valsartan Yes Mumtaz not [facility] Losartan Losartan Yes Mumtaz not [facility] Potassium Potassium [facility]rivedi defined [facility] Labetalol Labetalol Yes Mumtaz not [facility] HCl HCl [facility]rivedi defined [facility] Benzonatate Benzonatate Yes Mumtaz not [facility] Trivedi defined [facility] Hydrochloro Hydrochloro Yes Mumtaz not [facility] thiazide thiazide [facility] Baclofen Baclofen Yes Mumtaz not [facility] Trivedi defined [facility] Diltiazem Diltiazem Yes Mumtaz not [facility] HCl HCl [facility]rivedi defined [facility] Biofreeze Biofreeze Yes Mumtaz not [facility] Potassium Potassium Yes Mumtaz not [facility] Chloride Chloride Trivedi defined [facility] Omeprazole Omeprazole Yes Mumtaz not [facility] Eliquis Eliquis Yes Mumtaz not [facility] Trivedi defined [facility] Diazepam Diazepam Yes Mumtaz not [facility] Trivedi defined [facility] HydrALAZINE HydrALAZINE Yes Mumtaz not [facility] HCl HCl Trivedi defined [facility] Gabapentin Gabapentin Yes Mumtaz not [facility] defined [facility] Furosemide Furosemide Yes Mumtaz not [facility]edi defined [facility] Acetaminoph Acetaminoph Yes Mumtaz not [facility] en en Trivedi defined [facility] Aspercreme Aspercreme Yes Mumtaz not [facility]rivedi defined [facility] Diltiazem Diltiazem Yes Mumtaz not [facility] HCl ER HCl ER Trivedi defined [facility] Vital Signs Vital Name Observation Time Observation Value Comments Source Systolic (mm Hg) 2020-10-14 15:15:00 Hector rial Ottoniel Diastolic (mm Hg) 2020-10-14 15:15:00 Mem orial Orange Heart Rate 2020-10-14 15:15:00 [facility] [place] Respitory Rate 2020-10-14 15:15:00 Memori al Orange Weight 2020-10-14 15:15:00 [facility] Ottoniel Systolic (mm Hg) 2020-09-23 16:25:00 Hector rial Ottoniel Diastolic (mm Hg) 2020-09-23 16:25:00 Mem orial Ottoniel Heart Rate 2020-09-23 16:25:00 [facility] Ottoniel Respitory Rate 2020-09-23 16:25:00 Memori al Ottoniel Height 2020-09-23 16:25:00 149.86 cm [facility] [place] Weight 2020-09-23 [facility]:25:00 [facility] Calculated 2020-09-23 16:25:00 Memori al Ottoniel Systolic (mm Hg) 2020-08-03 21:57:00 Hector rial Orange Diastolic (mm Hg) 2020-08-03 21:57:00 Mem orial Orange Heart Rate 2020-08-03 21:57:00 [facility] [place] Respitory Rate 2020-08-03 21:57:00 Memori al Orange Height 2020-08-03 21:57:00 149.86 cm [facility] [place] Weight 2020-08-03 21:57:00 [facility] [place] BMI Calculated 2020-08-03 21:57:00 Memori al Orange Systolic (mm Hg) 2020-06-17 15:10:00 Hector rial Ottoniel Diastolic (mm Hg) 2020-06-17 15:10:00 Mem orial Ottoniel Heart Rate 2020-06-17 15:10:00 [facility] Ottoniel Height 2020-06-17 15:10:00 149.86 cm [facility] [place] Weight 2020-06-17 15:10:00 [facility] [place] BMI Calculated 2020-06-17 15:10:00 Memori al Ottoniel Temperature Oral (F) 2019-09-26 19:34:00 98.3 F [facility] [place] Heart Rate 2019-09-26 19:34:00 [facility] Ottoniel Respitory Rate 2019-09-26 19:34:00 Memori al Ottoniel Systolic (mm Hg) 2019-09-26 19:34:00 Hector rial Ottoniel Diastolic (mm Hg) 2019-09-26 19:34:00 Mem orial Orange Temperature Oral (F) 2019-09-26 15:11:00 98.7 F [facility] [place] Heart Rate 2019-09-26 15:11:00 [facility] Ottoniel Respitory Rate 2019-09-26 15:11:00 Memori al Ottoniel Systolic (mm Hg) 2019-09-26 15:11:00 Hector rial Ottoniel Diastolic (mm Hg) 2019-09-26 15:11:00 Mem orial Orange Temperature Oral (F) 2019-09-26 09:25:00 98.3 F [facility] Ottoniel Heart Rate 2019-09-26 09:25:00 [facility] Ottoniel Respitory Rate 2019-09-26 09:25:00 Memori al Orange Systolic (mm Hg) 2019-09-26 09:25:00 Hector rial Orange Diastolic (mm Hg) 2019-09-26 09:25:00 Mem orial Ottoniel Height 2019-09-16 14:57:00 142.24 cm [facility] Ottoniel Weight 2019-09-16 14:57:00 [facility] Height 2019-09-15 18:20:00 142.24 cm [facility] BMI Calculated 2019-09-15 18:20:00 Uriel yu Ottoniel Weight 2019-09-15 18:20:00 [facility] Procedures Procedure Date / Time Performing Clinician Source Performed [place] one 2020-10-15 02:42:00 Hector stanley Orange extremity; 1-4 muscle(s) Thrombolysis, cerebral, by 2019-09-15 19:45:00 [facility] Plan of Care Planned Activity Planned Date Details Comments Source Future Scheduled 2021-03-06 INFLUENZA VACCINE [place] [facility] 00:00:00 [code = INFLUENZA VACCINE] Future Scheduled 2000 65+ PNEUMOCOCCAL [place] [facility] 00:00:00 VACCINE (1 of 1 - PPSV23) [code = 65+ PNEUMOCOCCAL VACCINE (1 of 1 - PPSV23)] Future Scheduled 1985 SHINGLES VACCINES (#1) [place] [facility] 00:00:00 [code = SHINGLES VACCINES (#1)] Future Scheduled 1947 COVID-19 VACCINE (1) [place] [facility] 00:00:00 [code = COVID-19 VACCINE (1)] Encounters Start End Encounter Admission Attending Care Care Encounter Source Date/Time Date/Time Type Type Clinicians Facility Department ID 2021-02-15 2021-02-15 Outpatient [facility] [id number] [facility] 00:00:00 00:00:00 [facility] 2020-11-30 2020-12-01 Outpatient MHMISCHER MHMISCHER [id number] 12:03:43 23:59:59 03 2020-11-30 2020-12-01 Outpatient MHMISCHER MHMISCHER [id number] 12:03:43 23:59:59 03 2020-11-12 2020-11-13 Outpatient MHMISCHER MHMISCHER [id number] 08:52:31 23:59:59 02 2020-11-12 2020-11-13 Outpatient MHMISCHER MHMISCHER [id number] 08:52:31 23:59:59 2020-10-26 2020-10-26 Outpatient [facility]LMLC [facility] [id number] [facility] 2020-10-22 2020-10-23 Outpatient MHMISCHER MHMISCHER [id number] 16:10:49 23:59:59 2020-10-22 2020-10-23 Outpatient MHMISCHER MHMISCHER [id number] 16:10:49 23:59:59 2020-10-19 2020-10-20 Outpatient MHMISCHER MHMISCHER [id number] 10:35:15 23:59:59 2020-10-19 2020-10-20 Outpatient MHMISCHER MHMISCHER [id number] 10:35:15 23:59:59 2020-10-14 2020-10-14 Outpatient Kreart, MHMISCHER MHMISCHER [id number] 09:15:00 23:59:59 Yaniv 03 [facility] 2020-10-14 2020-10-14 Outpatient Addi, MHMISCHER MHMISCHER [id number] 09:15:00 23:59:59 Yaniv 03 [facility] 2020-09-23 2020-09-23 Outpatient Addi, MHMISCHER MHMISCHER [id number] 10:15:00 23:59:59 Yaniv 02 [facility] 2020-09-23 2020-09-23 Outpatient Addi, MHMISCHER MHMISCHER [id number] 10:15:00 23:59:59 Yaniv 02 [facility] 2020-08-03 2020-08-03 Outpatient Ferniell, MHMISCHER MHMISCHER [id number] 16:00:00 23:59:59 Yaniv [facility] 2020-08-03 2020-08-03 Outpatient Krell, MHMISCHER MHMISCHER [id number] 16:00:00 23:59:59 Yaniv [facility] 2020-07-20 2020-07-20 Outpatient [facility]ML[facility] [id number] [facility]00 [facility] 2020-06-17 2020-06-17 Outpatient Krell, MHMISCHER MHMISCHER [id number] 09:15:00 23:59:59 Yaniv 00 [facility] 2020-06-17 2020-06-17 Outpatient Addi [facility] [id number] 09:15:00 23:59:59 Yaniv 00 [facility] 2020-02-23 2020-02-23 [facility] [id number] [facility] 09:00:00 09:00[facility]00 [facility] 2019-09-15 2019-09-26 Outpatient Sydnee [facility] [id number] 11:37:00 18:48:00 Noureldin 67 [facility] 2019-09-15 2019-09-26 Outpatient Sydnee [facility] [id number] 11:37:00 18:48:00 Noureldin 67 [facility] 2019-09-15 2019-09-15 Outpatient [facility] MARTÍNEZ [id number] [facility] 13:19:00 13:19:00 2019-09-15 2019-09-15 Inpatient E [facility] [id number] [facility] 13:54:00 11:12:00 2019-09-09 2019-09-09 [facility] [id number] [facility] 10:43:00 10:43:00 [facility] 2019-09-01 2019-09-01 [facility] [id number] [facility] 15:00:00 15:00:00 [facility] Results Test Description Test Time Test Comments Results Result Comments Source CHEM PANEL 2019-09-25 91 [facility] nn 11:51:00 CHEM PANEL 2019-09-25 14 [facility] nn 11:51:00 CHEM PANEL 2019-09-25 0.68 [facility] nn 11:51:00 CHEM PANEL 2019-09-25 135 [facility] nn 11:51:00 CHEM PANEL 2019-09-25 4.4 [facility] nn 11:51:00 CHEM PANEL 2019-09-25 103 [facility] nn 11:51:00 CHEM PANEL 2019-09-25 28 [facility] nn 11:51:00 CHEM PANEL 2019-09-25 9.2 [facility] nn 11:51:00 CHEM PANEL 2019-09-25 8.4 [facility] nn 11:51:00 CHEM PANEL 2019-09-25 81 [facility] nn 11:51:00 CHEM PANEL 2019-09-25 1.7 [facility] nn 11:51:00 CHEM PANEL 2019-09-25 3.7 [facility] nn 11:51:00 CHEM PANEL 2019-09-25 91 [facility] nn 11:51:00 CHEM PANEL 2019-09-25 14 [facility] nn 11:51:00 CHEM PANEL 2019-09-25 0.68 [facility] nn 11:51:00 CHEM PANEL 2019-09-25 135 [facility] nn 11:51:00 CHEM PANEL 2019-09-25 4.4 [facility] nn 11:51:00 CHEM PANEL 2019-09-25 103 [facility] nn 11:51:00 CHEM PANEL 2019-09-25 28 [facility] nn 11:51:00 CHEM PANEL 2019-09-25 9.2 [facility] nn 11:51:00 CHEM PANEL 2019-09-25 8.4 [facility] nn 11:51:00 CHEM PANEL 2019-09-25 81 [facility] nn 11:51:00 CHEM PANEL 2019-09-25 1.7 [facility] nn 11:51:00 CHEM PANEL 2019-09-25 3.7 [facility] nn 11:51:00 CHEM PANEL 2019-09-21 2.1 [facility] nn 10:10:00 CHEM PANEL 2019-09-21 100 [facility] nn 10:10:00 CHEM PANEL 2019-09-21 12 [facility] nn 10:10:00 CHEM PANEL 2019-09-21 0.58 [facility] nn 10:10:00 CHEM PANEL 2019-09-21 140 [facility] nn 10:10:00 CHEM PANEL 2019-09-21 3.4 [facility] nn 10:10:00 CHEM PANEL 2019-09-21 107 [facility] nn 10:10:00 CHEM PANEL 2019-09-21 27 [facility] nn 10:10:00 CHEM PANEL 2019-09-21 8.7 [facility] nn 10:10:00 CHEM PANEL 2019-09-21 9.4 [facility] nn 10:10:00 CHEM PANEL 2019-09-21 85 [facility] nn 10:10:00 CHEM PANEL 2019-09-21 1.8 [facility] nn 10:10:00 HEMATOLOGY 2019-09-21 70.6 [facility] nn 10:10:00 HEMATOLOGY 2019-09-21 18.4 [facility] nn 10:10:00 HEMATOLOGY 2019-09-21 7.3 [facility] nn 10:10:00 HEMATOLOGY 2019-09-21 3.1 [facility] nn 10:10:00 HEMATOLOGY 2019-09-21 0.6 [facility] nn 10:10:00 HEMATOLOGY 2019-09-21 5.8 [facility] nn 10:10:00 HEMATOLOGY 2019-09-21 1.5 [facility] nn 10:10:00 HEMATOLOGY 2019-09-21 0.6 [facility] nn 10:10:00 HEMATOLOGY 2019-09-21 0.3 [facility] nn 10:10:00 HEMATOLOGY 2019-09-21 8.2 [facility] nn 10:10:00 HEMATOLOGY 2019-09-21 3.65 [facility] nn 10:10:00 HEMATOLOGY 2019-09-21 12.1 [facility] nn 10:10:00 HEMATOLOGY 2019-09-21 35.9 [facility] nn 10:10:00 HEMATOLOGY 2019-09-21 98.4 [facility] nn 10:10:00 HEMATOLOGY 2019-09-21 10:10:00 Test Item Value Reference Range Interpretation Comme nts MCH (test code = MCH) 33.1 pg 27.0-31.0 [facility] [id number] 10:10:0033.7[facility]ann[facility]MATOLOGY 2019-09-21 10:10:0012.9[facility] XosvyqtNOUNQOICRT1538-20-38 10:10:01324Suhbimnz OozkcfwIDIGHQSPJS3053-81-17 10:10:009.3[facility] HermannPARATHYROID PROFILE 2019-09-21 10:10:001.20[facility] HermannPARATHYROID [id number] 10:10:00 1.20[facility] HermannCHEM [id number] 10:10:002.1[facility] HermannCHEM PANEL 2019-09-21 10:10:50671Xoezqvas HermannCHEM [id number] 10:10:0012[facility] HermannCHEM [id number] 10:10:000.58[facility] HermannCHEM [id number] 10:10:48096Ykjwqsni HermannCHEM YDMTZ8438-08-69 10:10:003.4[facility] HermannCHEM [id number] 10:10:51327[place] HermannCHEM [id number] 10:10:0027 [facility]annCHEM [id number] 10:10:008.7[facility] HermannCHEM PANEL 2019-09-21 10:10:009.4[facility] HermannCHEM [id number] 10:10:0085[facility] HermannCHEM [id number] 10:10:001.8[facility] JmtownaIQESZZYVSX5806-57-52 10:10:0070.6[facility] CblriddAJRZWKEPCY1462-57-33 10:10:0018.4[facility]iel IBWSHWHBQJ5306-25-48 10:10:007.3[facility] VuxwbipZFJLYRXKGT5708-60-64 10:10:003.1 Memorial CijbkkvYZLUHHGHHJ8761-70-63 10:10:000.6[facility] HermannHEMATOLOGY 2019-09-21 10:10:005.8[facility] IkqoebbLHIPJZGQOQ7905-23-17 10:10:001.5[facility] OxsgevpXFXCLFGEQP4563-77-69 10:10:000.6[facility] ZchbgsaCENWTAJAEW2898-37-76 10:10:000.3[facility] VmqxbjhWUSOEFOLLB8443-84-42 10:10:008.2[facility] SXKQQKARDP1198-26-64 10:10:003.65[facility] WfaenqpQAARQVSDJX5121-74-03 10:10:00 12.1[facility] WaeizcuCNBONOVECP6664-35-89 10:10:0035.9[facility] HermannHEMATOLOGY 2019-09-21 10:10:0098.4[facility] YoeolmmQYIMZYSFJJ8355-97-54 10:10:00 Test Item Value Reference Range Interpretation Comments MCH (test code = MCH) 33.1 pg 27.0-31.0 [facility] [id number] 10:10:0033.7[facility]annHEMATOLOGY 2019-09-21 10:10:0012.9[facility] UtoypdkGKYBLUUQVM6707-43-99 10:10:73947Heqzidit TrelbkaJVSDNAJSXP5320-94-40 10:10:009.3[facility] HermannPARATHYROID PROFILE 2019-09-21 10:10:001.20[facility] HermannPARATHYROID FNVZHEU9885-95-84 10:10:00 1.20[facility]annCHEM XOMAI0360-97-64 10:20:08099Ehuxcmmt HermannCHEM PANEL 2019-09-20 10:20:0010[facility] HermannCHEM XUWIB6095-30-56 10:20:000.52[facility] HermannCHEM DZBUH5791-77-38 10:20:23065Cwewnaps HermannCHEM XUQAQ4456-29-41 10:20:003.3[facility] HermannCHEM XBLJE4809-72-72 10:20:72997Hwlwxbhf HermannCHEM FTUPE0438-40-55 10:20:0029[facility] HermannCHEM WBYUI6802-19-18 10:20:009.1 [facility]annCHEM YVPVC4661-78-61 10:20:009.3[facility] HermannCHEM PANEL 2019-09-20 10:20:0088[facility] HermannCHEM OIJWR2801-46-65 10:20:06499Idjflcar HermannCHEM UNUCL8614-29-78 10:20:0010[facility] HermannCHEM HQLVR2493-86-04 10:20:000.52[facility] HermannCHEM SVCCQ4289-00-19 10:20:59111Drmqaijz HermannCHEM KNAPS3889-36-65 10:20:003.3[facility] HermannCHEM RLMSF6696-41-21 10:20:29142 [facility]annCHEM PDSII0670-94-14 10:20:0029[facility] HermannCHEM PANEL 2019-09-20 10:20:009.1[facility]annCHEM FAJIS8254-94-74 10:20:009.3[facility] HermannCHEM DRMCN2196-59-78 10:20:0088[facility] HermannCHEM RDTSO9736-04-07 07:34:002.0[facility] WbeujxqMTBXEXLJBL7590-51-84 07:34:0071.2[facility] PBRBVOBABM5013-94-09 07:34:0019.2[facility] VjjouclYFOCAELHMS3510-08-01 07:34:00 7.6[facility] TzceswgQTDEJCITJH4054-05-01 07:34:001.6[facility]annHEMATOLOGY 2019-09-20 07:34:000.4[facility] VjhprscRFCOCDLXPS8866-52-26 07:34:005.2[facility] FaqsomoVHRTEFULRR2224-96-84 07:34:001.4[facility] IgvyrlsCXSXTUEZBP4378-79-19 07:34:000.6[facility] WpzfwwjHOJTVTLRMD3149-73-41 07:34:000.1[facility] VQESXKPRHW1239-53-67 07:34:007.4[facility] WlvrdmhYYQOHGRYDS1097-82-90 07:34:00 3.73[facility] NnjutqmUFQWAICLCH3751-27-09 07:34:0012.4[facility]annHEMATOLOGY 2019-09-20 07:34:0036.3[facility] IocvmcoYKQITZGEAG0342-21-69 07:34:0097.2[facility] JcmugvvAYJPPRFIRD9361-76-30 07:34:00 Test Item Value Reference Range Interpretation Comments MCH (test code = MCH) 33.4 pg 27.0-31.0 [facility] SfydfghPHNCBBPLHF0461-35-16 07:34:0034.3[facility] HermannHEMATOLOGY 2019-09-20 07:34:0013.6[facility] ZcovauxLKBFNGNAVP7231-25-40 07:34:14500Jwlhvcra UipmvsrHXJIEAXKMG9012-03-89 07:34:0010.1[facility] HermannPARATHYROID PROFILE 2019-09-20 07:34:001.02[facility]annPARATHYROID QUMRHSS6169-54-46 07:34:00 1.04[facility] HermannCHEM JQTKL6325-38-05 07:34:002.0[facility]annHEMATOLOGY 2019-09-20 07:34:0071.2[facility] YaixjsuCQGQRCXJGT1142-34-25 07:34:0019.2[facility] BprcdllJKQMJJCMAJ9345-05-40 07:34:007.6[facility] DftaricNLRYQWUQKQ8471-01-44 07:34:001.6[facility] ZgkalwfHOVTHTUAMQ7377-08-72 07:34:000.4[facility] MIEGNFXJHH7872-81-59 07:34:005.2[facility] AvcqomrALSAHSXBJM0147-67-29 07:34:001.4 [facility] MxdiygaRFEBOOFTXK5066-82-42 07:34:000.6[facility]annHEMATOLOGY 2019-09-20 07:34:000.1[facility] FavnwdhPEPTNTNXTO3209-48-50 07:34:007.4[facility] UkjbnbeACBWHRRCQX0145-77-19 07:34:003.73[facility] FcrtugoHCQKPLBRPV1789-97-58 07:34:0012.4[facility] ZvelnyiTHSDPQFBRH7879-89-62 07:34:0036.3[facility] PVOSFRWZMQ4288-82-53 07:34:0097.2[facility] LescnlbSIZVQCGPGX9725-81-14 07:34:00 Test Item Value Reference Range Interpretation Comments MCH (test code = MCH) 33.4 pg 27.0-31.0 [facility] SollygvUNQXHWSVQS3793-30-04 07:34:0034.3[facility]annHEMATOLOGY 2019-09-20 07:34:0013.6[facility] SzcremgBWRFFTMVSO5037-90-38 07:34:44999Zkaoedsr YkrwoidQLMBVSPMUH2725-49-44 07:34:0010.1[facility] HermannPARATHYROID PROFILE 2019-09-20 07:34:001.02[facility] HermannPARATHYROID CUQALAV4429-45-23 07:34:00 1.04[facility] HermannCARDIAC DILKLLV3232-95-67 14:22:000.19[facility] CARDIAC HSLDIOV3621-89-29 14:22:000.19[facility] BughrqlMAFXPJQEPB9288-16-00 11:04:0070.0[facility] BwfrqwlTTGBNJWIZK8001-70-21 11:04:0019.6[facility] FSWAPKWUDP6931-58-62 11:04:008.7[facility] EbrmkyjXEVWGNNSDK8960-10-14 11:04:001.3 [facility] SqbhptiPPQKVWCIVK0394-16-68 11:04:000.4[facility]annHEMATOLOGY 2019-09-19 11:04:005.0[facility] VtudbemIMABGUCNLP2159-66-25 11:04:001.4[facility] RqgbacwUKWWODEPOX8219-94-31 11:04:000.6[facility] CmuhxrbHKSSNLQHUX8608-40-67 11:04:000.1[facility] JcystxgKKAUGYOGWY7809-83-32 11:04:007.1[facility] GYUYZBAVPL0841-46-32 11:04:003.72[facility] IqvzaniSLKETCWNPB6394-28-70 11:04:00 12.4[facility] KrnxnmdXFJVCTNZSW4302-02-15 11:04:0036.6[facility]annHEMATOLOGY 2019-09-19 11:04:0098.4[facility] OceuehkWSNLSHPKMR8947-43-42 11:04:00 Test Item Value Reference Range Interpretation Comments MCH (test code = MCH) 33.4 pg 27.0-31.0 [facility] VvielazVYNLWBDQOK4811-10-96 11:04:0034.0[facility]annHEMATOLOGY 2019-09-19 11:04:0013.1[facility] NzuvjwfEJPZIJDSTG0820-54-95 11:04:47584Zwiqwbwy AqzsvfyDKNRETGFPU2186-24-63 11:04:008.6[facility] WkvnfhiPSQOMZWBNF9450-57-17 11:04:0070.0[facility] RqwmnhqGCGDAJJHTB7940-57-20 11:04:0019.6[facility] MOREIREVBE3905-62-44 11:04:008.7[facility] PfuwcexIUBAXZZOGG8981-58-18 11:04:001.3 [facility] TciptwjUFSYESSKDG3463-30-61 11:04:000.4[facility]annHEMATOLOGY 2019-09-19 11:04:005.0[facility] EkddlcaRKNBKZUUKF8983-38-96 11:04:001.4[facility] WeuzmnlRERHKBHTHX3068-16-16 11:04:000.6[facility] WxyeuilEOVEUZMENC5407-30-43 11:04:000.1[facility] KgrzedxPYQNHQJSSY9168-79-10 11:04:007.1[facility] YFTABWSYZW3477-57-40 11:04:003.72[facility] AvmxfwwHPIOJSIGEL2618-21-97 11:04:00 12.4[facility] YigznexDJBPQWZYYF1320-98-44 11:04:0036.6[facility]annHEMATOLOGY 2019-09-19 11:04:0098.4[facility] QfjvuaqURTVUVZFOM5023-31-02 11:04:00 Test Item Value Reference Range Interpretation Comments MCH (test code = MCH) 33.4 pg 27.0-31.0 [facility] LxlwmmyGBCBZDHHBI6739-29-12 11:04:0034.0[facility]annHEMATOLOGY 2019-09-19 11:04:0013.1[facility] OuibwrfBKXFIGZGMG1488-60-28 11:04:68320Vykhrekh TbncpwyOKFLIECTLM5327-49-11 11:04:008.6[facility] HermannCARDIAC UUXJATG6547-24-01 22:29:000.34[facility]annCARDIAC SGCFNAX7389-80-67 22:29:000.34[facility] HermannCHEM ACAHR1080-38-73 01:10:006.0[facility]annCHEM WHWKA0363-99-61 01:10:002.5[facility]annCHEM FURJR4592-49-12 01:10:0026[facility]annCHEM IBJPZ5600-40-99 01:10:0030[facility]annCHEM SUYWX9915-67-87 01:10:0055 [facility]annCHEM FAHNZ6268-35-52 01:10:000.3[facility]annCHEM PANEL 2019-09-18 01:10:00 Test Item Value Reference Range Interpretation Comments B/C Ratio (test code = B/C Ratio) 26 1 6-25 [facility]annCHEM VORTF1224-97-84 01:10:003.5[facility]annCHEM PANEL 2019-09-18 01:10:00 Test Item Value Reference Range Interpretation Comments A/G Ratio (test code = A/G Ratio) 0.7 1 0.7-1.6 [facility]annCHEM FUQWZ8030-92-40 01:10:000.06[facility]annCHEM PANEL 2019-09-18 01:10:006.0[facility]annCHEM MWZHF9790-29-96 01:10:002.5[facility]annCHEM IEJJP6038-80-89 01:10:0026[facility]annCHEM MWFLR7526-76-89 01:10:0030[facility]annCHEM FUZWC4218-32-40 01:10:0055[facility]annCHEM ABJOU1141-09-38 01:10:000.3[facility]annCHEM CXHPD3357-45-49 01:10:00 Test Item Value Reference Range Interpretation Comments B/C Ratio (test code = B/C Ratio) 26 1 6-25 [facility]annCHE[facility] XQNUJ8846-28-81 01:10:003.5[facility]annCHEM PANEL 2019-09-18 01:10:00 Test Item Value Reference Range Interpretation Comments A/G Ratio (test code = A/G Ratio) 0.7 1 0.7-1.6 [facility]annCHEM BMOMH6732-01-36 01:10:000.06[facility]annCHEM PANEL 2019-09-17 06:09:001.0[facility]annCHEM VAFJX5340-43-12 06:09:001.0[facility]annCHEM DYEPV9304-48-74 19:34:000.08[facility]annCHEM LQARV7312-06-27 19:34:002.1[facility]annCHEM JIQTX1648-86-79 19:34:000.08[facility]annCHEM GYVVH6538-26-27 19:34:002.1[facility]annCHEM HZRWN2567-26-61 15:33:004.1 [facility]annCHEM KHENC1011-86-48 15:33:004.1[facility]annCHEM PANEL 2019-09-16 11:25:00 Test Item Value Reference Range Interpretation Comments B/C Ratio (test code = B/C Ratio) 12 1 - [facility]annCHEM VRAVL4017-52-09 11:25:007.1[facility]annCHEM PANEL 2019-09-16 11:25:002.9[facility]annCHEM RJASP1491-48-69 11:25:004.2[facility]annCHEM FVJTU8229-15-87 11:25:00 Test Item Value Reference Range Interpretation Comments A/G Ratio (test code = A/G Ratio) 0.7 1 0.7-1.6 [facility]CHE[facility] XFBMW1242-58-08 11:25:0023[facility]annCHEM PANEL 2019-09-16 11:25:0036[facility]annCHEM XULOM9674-41-01 11:25:0067[facility]annCHEM ZIPZI9183-50-68 11:25:000.5[facility]annCHEM QDWPV2747-76-24 11:25:00 Test Item Value Reference Range Interpretation Comments B/C Ratio (test code = B/C Ratio) 12 1 - [facility]annCHEM INCTD3610-18-45 11:25:007.1[facility]annCHEM PANEL 2019-09-16 11:25:002.9[facility]annCHEM TGMEQ4303-41-54 11:25:004.2[facility]annCHEM IGEFV2592-89-02 11:25:00 Test Item Value Reference Range Interpretation Comments A/G Ratio (test code = A/G Ratio) 0.7 1 0.7-1.6 [facility]annCHEM OBCFB9788-05-11 11:25:0023[facility]annCHEM PANEL 2019-09-16 11:25:0036[facility]annCHEM AWXTE7490-21-59 11:25:0067[facility]annCHEM ELTDZ4047-68-64 11:25:000.5[facility] MwptnwsLGZMWH1657-81-86 20:51:00 83[facility] TdvimexLCUNOR1700-11-29 20:51:83189Zcvcxjdm KuodejeWNTHGQ2747-05-06 20:51:0071[facility] XvwthgeZEYNUV8187-99-23 20:51:00 Test Item Value Reference Range Interpretation Comments CHD Risk (test code = CHD Risk) 3.56 1 3.90-5.80 [facility] JtphcvaPZPBVI6423-73-44 20:51:42639Phymlnuj HcurowyZKLZGE4052-77-10 20:51:00 Test Item Value Reference Range Interpretation Comments VLDL (test code = VLDL) 17 1 [facility]annSPECIAL UFTUPEYFN9595-26-96 20:51:005.5[facility]annURINE AND NBFJQ2597-43-57 20:51:00Light Yellow *NA*(09/15/19 2:51 PM)[facility] UICJZ7960-23-66 20:51:00Clear (09/15/19 2:51 PM)[facility] PAQER9548-23-86 20:51:00 Test Item Value Reference Range Interpretation Comments UA Spec Grav (test code = UA Spec 1.015 1 Grav) [facility] LOVHS0665-24-60 20:51:00 Test Item Value Reference Range Interpretation Comments UA pH (test code = UA pH) 8.0 1 5.0-8.0 [facility] XUYXW4637-16-39 20:51:00Negative *NA*(09/15/19 2:51 PM) [facility] PULSM2049-93-22 20:51:00Small *ABN*(09/15/19 2:51 PM) [facility] DCRWN5645-86-74 20:51:00<1.0[facility] NKOJO3643-68-06 20:51:00Negative (09/15/19 2:51 PM)[facility] MJYYE8726-09-08 20:51:00Negative (09/15/19 2:51 PM)[facility] AZCVG3898-17-19 20:51:003[facility] AND QWRVI5296-27-70 20:51:0016 [facility] BwkvqtgUJBWQA0089-83-31 20:51:0083[facility] NemwkxvHJEHIZ7486-34-01 20:51:02646Bylbftdk UkgeefoSSKVXG4930-83-45 20:51:0071[facility] HermannLIPIDS 2019-09-15 20:51:00 Test Item Value Reference Range Interpretation Comments CHD Risk (test code = CHD Risk) 3.56 1 3.90-5.80 [facility] SuysyjyXINRBT6065-18-70 20:51:95298Hgdwnlsu OekssyaFPARIH0972-68-25 20:51:00 Test Item Value Reference Range Interpretation Comments VLDL (test code = VLDL) 17 1 [facility]annSPECIAL EIRAFYRYD4427-17-04 20:51:005.5[facility] SMISM0337-72-47 20:51:00Light Yellow *NA*(09/15/19 2:51 PM)[facility] VFETN0508-53-50 20:51:00Clear (09/15/19 2:51 PM)[facility] ZTMZE4218-65-84 20:51:00 Test Item Value Reference Range Interpretation Comments UA Spec Grav (test code = UA Spec 1.015 1 Grav) [facility] FPBRF1937-40-21 20:51:00 Test Item Value Reference Range Interpretation Comments UA pH (test code = UA pH) 8.0 1 5.0-8.0 [facility] YJPUR4130-59-47 20:51:00Negative *NA*(09/15/19 2:51 PM) [facility] OKSKG9735-00-13 20:51:00Small *ABN*(09/15/19 2:51 PM) [facility] TTOYV7613-22-72 20:51:00<1.0[facility] IQLMT0413-66-43 20:51:00Negative (09/15/19 2:51 PM)[facility] KKGOU0229-61-17 20:51:00Negative (09/15/19 2:51 PM)[facility] ZZJCN0668-37-26 20:51:003[facility] XCZRO7004-42-55 20:51:0016 [facility]annCARDIAC DQHFXBU1105-04-37 17:55:98012Pogabmpa HermannCARDIAC HIRSPQG0237-33-00 17:55:35<0.02[facility] JnkjagtVVXWIBUGDU8336-84-25 17:55:35 Test Item Value Reference Range Interpretation Comments PT (test code = PT) 12.2 s 12.0-14.7 [facility] MpohfplHSXLUEIMLU1034-40-31 17:55:35 Test Item Value Reference Range Interpretation Comments INR (test code = INR) 0.91 1 0.85-1.17 [facility] XpjbdccLYMXZXHPQR3778-08-46 17:55:35 Test Item Value Reference Range Interpretation Comments PTT (test code = PTT) 23.2 s 22.9-35.8 [facility] NpptyiyNIAJSBFMDY7193-04-01 17:55:35Normal (09/15/19 11:55 AM)[facility] EegghwjMZFGDNPSGG1805-75-85 17:55:35Normal (09/15/19 11:55 AM)[facility] XTAXGTL2858-01-15 17:55:53877Ndssdahi HermannCARDIAC CPGAIQL3977-27-09 17:55:35<0.02[facility] SuhftxbIMDSTNZLPS5965-09-51 17:55:35 Test Item Value Reference Range Interpretation Comments PT (test code = PT) 12.2 s 12.0-14.7 [facility] EkttkksSDDWXAGENV9433-36-95 17:55:35 Test Item Value Reference Range Interpretation Comments INR (test code = INR) 0.91 1 0.85-1.17 [facility] YajgwroYWTMKZSPAL9486-48-21 17:55:35 Test Item Value Reference Range Interpretation Comments PTT (test code = PTT) 23.2 s 22.9-35.8 [facility] VkylsbvOIZMXSYWRA8286-25-37 17:55:35Normal (09/15/19 11:55 AM)[facility] MreafqaYINILUTHKI1890-07-99 17:55:35Normal (09/15/19 11:55 AM)[facility]
[2021-02-25 19:12] LABS: Absolute Lymphocytes (CBC) 1.5 K/uL (0.7-4.9); Basophils % 0.5 % (0-1.3); Hematocrit 35.6 % (36.0-45.0); Lymphocytes % 18.4 % (15.3-44.8); MPV 8.4 fL (7.6-11.3); RBC Red Blood Cell Count 3.63 M/uL (3.86-4.86)
[2021-02-25 19:18] LABS: Protime INR 1.08
[2021-02-25 19:37] LABS: BUN Blood Urea Nitrogen 26 mg/dL (7-18); Bicarbonate 28 mmol/L (21-32); Glucose Level 98 mg/dL (74-106); Lipase 57 U/L (73-393); Magnesium 2.4 mg/dL (1.8-2.4); Potassium 4.7 mmol/L (3.5-5.1); Sodium Level 140 mmol/L (136-145); Troponin (Emerg Dept Use Only) < 0.02 ng/mL (0.0-0.045)
--- NOTE | 2021-02-25 20:17 | EDPHYS ---
Physician Documentation [facility] Name: Nai Ragland Age: 85 yrs Sex: Female : 1935 Arrival Date: 02/25/2021 Time: 18:26 Bed 26 Private MD: ED Physician Eduardo Morales HPI: 02/25 18:44 This 85 yrs old Female presents to ER via Unassigned with complaints of ma2 aphasia. 18:44 The patient presents to the emergency department with a speech or higher order brain ma2 function problem. Onset: The symptoms/episode began/occurred suddenly, 1 hour(s) ago. Associated signs and symptoms: Pertinent positives: altered mental status, fever, H/A - Worst of Life nausea, near-syncope, blurred vision, visual field changes, weakness, Pertinent negatives:. Severity of symptoms: At their worst the symptoms were mild in the emergency department the symptoms have resolved. Current symptoms: Currently, the patient is not experiencing any symptoms. 85 years old female with history of a stroke, with residual quadriplegia of the upper extremity, and weakness of the left lower extremity. She is here because she was unable to talk, she described as unable to get words articulated. An hour ago. This symptom has resolved and she is back to normal at this time. She does not have any symptom at this time.. Historical: - Allergies: 19:04 No Known Allergies; jd3 - Home Meds: 19:04 Baclofen Oral [Active]; Eliquis oral [Active]; furosemide Oral [Active]; gabapentin jd3 oral [Active]; Hydralazine Oral [Active]; Ketoconazole Topical [Active]; Labetalol Oral [Active]; Magnesium Oxide Oral [Active]; meloxicam oral [Active]; omeprazole 20 mg Oral TbLD [Active]; potassium chloride 20 mEq Oral pack [Active]; Advair Diskus Inhl [Active]; Aspercreme (lidocaine) topical [Active]; benzonatate oral [Active]; Biofreeze (menthol) topical [Active]; cromolyn ophthalmic (eye) [Active]; hydrocortisone acetate Rectal [Active]; ipratropium-albuterol inhalation Inhl [Active]; Milk of Magnesia Oral [Active]; Tramadol Oral [Active]; Trazodone Oral [Active]; - PMHx: 19:04 Asthma; Hypertension; CVA; jd3 - PSHx: 19:04 ABRIL knee; jd3 - Immunization history:: Adult Immunizations up to date, Client reports receiving the 2nd dose of the Covid vaccine. - Social history:: Patient/guardian denies using alcohol, street drugs, The patient lives with family, Smoking status: Patient denies any tobacco usage or history of. ROS: 18:44 Constitutional: Negative for fever, chills, and weight loss, Cardiovascular: Negative ma2 for chest pain, palpitations, and edema, Respiratory: Negative for shortness of breath, cough, wheezing, and pleuritic chest pain, Abdomen/GI: Negative for abdominal pain, nausea, diarrhea, and constipation, MS/Extremity: Negative for injury and deformity, Skin: Negative for injury, rash, and discoloration, Neuro: Has residual weakness, and slurred speech that has resolved. Otherwise negative for headache, weakness, numbness, tingling, and seizure, Psych: Negative for depression, anxiety, suicide ideation, homicidal ideation, and hallucinations, Endocrine: Negative for neck swelling, polydipsia, polyuria, polyphagia, and marked weight changes. 18:44 All other systems are negative. Exam: 18:44 Constitutional: This is a well developed, well nourished patient who is awake, alert, ma2 and in no acute distress. Head/Face: Normocephalic, atraumatic. Eyes: Pupils equal round and reactive to light, extra-ocular motions intact. Lids and lashes normal. Conjunctiva and sclera are non-icteric and not injected. Cornea within normal limits. Periorbital areas with no swelling, redness, or edema. ENT: Nares patent. No nasal discharge, no septal abnormalities noted. Tympanic membranes are normal and external auditory canals are clear. Oropharynx with no redness, swelling, or masses, exudates, or evidence of obstruction, uvula midline. Mucous membranes moist. Neck: Trachea midline, no thyromegaly or masses palpated, and no cervical lymphadenopathy. Supple, full range of motion without nuchal rigidity, or vertebral point tenderness. No Meningismus. Chest/axilla: Normal chest wall appearance and motion. Nontender with no deformity. No lesions are appreciated. Cardiovascular: Regular rate and rhythm with a normal S1 and S2. No gallops, murmurs, or rubs. Normal PMI, no JVD. No pulse deficits. Respiratory: Lungs have equal breath sounds bilaterally, clear to auscultation and percussion. No rales, rhonchi or wheezes noted. No increased work of breathing, no retractions or nasal flaring. Abdomen/GI: Soft, non-tender, with normal bowel sounds. No distension or tympany. No guarding or rebound. No evidence of tenderness throughout. Back: No spinal tenderness. No costovertebral tenderness. Full range of motion. Skin: Warm, dry with normal turgor. Normal color with no rashes, no lesions, and no evidence of cellulitis. MS/ Extremity: Pulses equal, no cyanosis. Neurovascular intact. Full, normal range of motion. Neuro: Awake and alert, GCS 15, oriented to person, place, time, and situation. Cranial nerves II-XII grossly intact. Motor strength 5/5 in right upper and lower extremities. Strength 0 out of 5 in left upper extremity, and 4 out of 5 in left lower extremity, this weakness of both upper and lower extremity is old from prior stroke. Otherwise sensory grossly intact. Cerebellar exam normal. Gait not tested Vital Signs: 19:13 BP 140 / 65; Pulse 64; Resp 18 S; Temp 98.5(O); Pulse Ox 95% on R/A; Weight 69.4 kg jd3 (R); Height 4 ft. 11 in. (149.86 cm) (R); Pain 5/10; 20:30 BP 165 / 72; Pulse 60; Resp 18; Pulse Ox 95% on R/A; aj1 21:30 BP 148 / 63; Pulse 75; Resp 18; Pulse Ox 94% on R/A; aj1 22:30 BP 152 / 68; Pulse 77; Resp 18; Pulse Ox 95% on R/A; aj1 19:13 Body Mass Index 30.90 (69.40 kg, 149.86 cm) jd3 NIH Stroke Scale Scores: 18:45 NIHSS Score: 6 jd3 MDM: 18:44 Data reviewed: vital signs, nurses notes. Data interpreted: monitoring specialist:. ma2 Counseling: I had a detailed discussion with the patient and/or guardian regarding: Differential diagnoses include TIA, stroke is unlikely as symptom has resolved, versus syncope, versus electrolyte abnormality versus UTI versus dehydration.. 20:16 Response to treatment: the patient's symptoms have resolved after treatment, the [facility] patient's blood pressure is in an acceptable range, mental status has returned to baseline, the patient no longer shows bradycardia, the patient is not short of breath, the patient is not tachycardic, the patient's pain is gone, the patient's temperature has normalized, the patient is now symptom free. 20:17 Patient medically screened. [facility] 02/25 18:41 Order name: Basic Metabolic Panel [facility] 02/25 18:41 Order name: CBC with Diff; Complete Time: 19:46 [facility] 02/25 18:41 Order name: Lipase; Complete Time: 19:46 [facility] 02/25 18:41 Order name: Magnesium; Complete Time: 19:46 [facility] 02/25 18:41 Order name: Protime (+inr); Complete Time: 19:46 [facility] 02/25 18:41 Order name: Ptt, Activated; Complete Time: 19:46 [facility] 02/25 18:41 Order name: Troponin (emerg Dept Use Only); Complete Time: 19:46 [facility] 02/25 18:41 Order name: CT Stroke Brain w/o Contrast; Complete Time: 19:42 [facility] 02/25 18:41 Order name: Stroke CXR 1 View [facility] 02/25 18:41 Order name: EKG; Complete Time: 18:41 [facility] 02/25 18:41 Order name: Accucheck; Complete Time: 19:35 [facility] 02/25 18:41 Order name: Cardiac monitoring; Complete Time: 19:35 [facility] 02/25 18:41 Order name: EKG - Nurse/Tech; Complete Time: 19:35 [facility] 02/25 18:41 Order name: Basic Metabolic Panel; Complete Time: 19:46 EDMS 02/25 18:41 Order name: IV Saline Lock; Complete Time: 21:58 id2 02/25 18:41 Order name: Labs collected and sent; Complete Time: 19:35 id2 02/25 18:41 Order name: NPO; Complete Time: 19:35 [facility] 02/25 18:41 Order name: O2 Per Protocol; Complete Time: 19:35 [facility] 02/25 18:41 Order name: O2 Sat Monitoring; Complete Time: 19:35 [facility] 02/25 18:41 Order name: Stroke Swallow Screen; Complete Time: 19:35 ma2 Administered Medications: No medications were administered Disposition Summary: 02/25/21 20:17 Hospitalization Ordered Hospitalization Status: Inpatient Admission [facility] Provider: Abdirashid Bethea Location: Telemetry/MedSurg (Inpatient) [facility] Condition: Stable mh7 Problem: new mh7 Symptoms: have improved mh7 Bed/Room Type: Standard [facility] Room Assignment: 225(02/25/21 21:51) Diagnosis - Transient cerebral ischemic attack, unspecified [facility] Forms: - Medication Reconciliation Form [facility] - SBAR form [facility] NIH Stroke Scale - NIH Stroke Score Date: 02/25/2021 Time: 18:45 Total Score = 6 1a. Level of Consciousness (LOC) - 0(Alert) 1b. Level of Consciousness (LOC) (Month \T\ Age) - 0(Both) 1c. LOC Commands (Open \T\ Closes Eyes/Fruit Or Nut Grower) - 0(Both) 2. Best Gaze (Lateral Gaze Paresis) - 0(Normal) 3. Visual Field Loss - 0(No visual loss) 4. Facial Palsy - 1(Minor Paralysis) 5a. Left Arm: Motor (10-second hold) - 9(Amputation, joint fusion) - Notes: contraction 5b. Right Arm: Motor (10-second hold) - 0(No drift) 6a. Left Leg: Motor (5-second hold - always test supine) - 2(Drift, some effort against gravity) 6b. Right Leg: Motor (5-second hold - always test supine) - 0(No drift) 7. Limb Ataxia (finger/nose \T\ heel/bello - test with eyes open) - 2(Present in two limbs) 8. Sensory Loss (pinprick arms/legs/face) - 1(Mild to moderate loss) 9. Best Language: Aphasia (description/naming/reading) - 0(No aphasia) 10. Dysarthria (speech clarity - read or repeat words) - 0(Normal) 11. Extinction and Inattention (visual/tactile/auditory/spatial/personal) - 0(No abnormality) Initials: jd3 Signatures: Dispatcher [employer] EDMS Smith Hamilton, SONG-Krayn COLLAR STARCHER-Cla1 Gris Richard RN RN cg Davies, Jonathon, RN RN jd3 Wyatt Dunbar MD MD ma2 Eduardo Morales MD MD mh7 Corrections: (The following items were deleted from the chart) 21:51 20:17 7
--- NOTE | 2021-02-25 20:17 | ER ---
Nurse's Notes [facility] Name: Nai Ragland Age: 85 yrs Sex: Female : 1935 Arrival Date: 02/25/2021 Time: 18:26 Bed 26 Private MD: Diagnosis: Transient cerebral ischemic attack, unspecified Presentation: 02/25 19:00 Chief complaint: EMS states: "Pt was reporting facial numbness and not being able to jd3 talk right saying her lips were just flapping. numbness all around her face. pt reported previous stroke affecting left side. no new symptoms on our arrival with the pt reporting relief from symptoms. symptoms started at 1730.". Coronavirus screen: At this time, the client does not indicate any symptoms associated with coronavirus-19. Ebola Screen: Patient negative for fever greater than or equal to 101.5 degrees Fahrenheit, and additional compatible Ebola Virus Disease symptoms. Initial Sepsis Screen: Does the patient meet any 2 criteria? No. Patient's initial sepsis screen is negative. Does the patient have a suspected source of infection? No. Patient's initial sepsis screen is negative. Risk Assessment: Do you want to hurt yourself or someone else? Patient reports no desire to harm self or others. Onset of symptoms was February 25, 2021 at 17:30. 19:00 Method Of Arrival: EMS: [facility] jd3 19:00 Acuity: JT 3 jd3 19:14 No acute neurological deficit is noted. Pre-hospital glucose is not applicable to this jd3 patient. Triage Assessment: 18:45 The onset of the patients symptoms was February 25, 2021 at 17:30. Neuro: Level of jd3 Consciousness is awake, alert, obeys commands, Oriented to person, place, time, situation, left sided deficits related to previous CVA noted. no new symptoms reported at this time. Reports facial/lip numbness at 1730. symptoms have resolved prior to arrival at ER. 18:45 General: Appears in no apparent distress. comfortable, Behavior is calm, cooperative, jd3 appropriate for age. Pain: Complains of pain in pelvis Quality of pain is described as aching. Stroke Activation: Symptom onset < 3 hours Physician: Stroke Attending; Name: ; Notified At: ; Arrived At: Physician: Chief Stroke Resident; Name: ; Notified At: ; Arrived At: Physician: Stroke Resident; Name: ; Notified At: ; Arrived At: Physician: ED Attending; Name: Chaim; Notified At: 18:45; Arrived At: 18:45 Physician: ED Resident; Name: ; Notified At: ; Arrived At: Historical: - Allergies: 19:04 No Known Allergies; jd3 - Home Meds: 19:04 Baclofen Oral [Active]; Eliquis oral [Active]; furosemide Oral [Active]; gabapentin jd3 oral [Active]; Hydralazine Oral [Active]; Ketoconazole Topical [Active]; Labetalol Oral [Active]; Magnesium Oxide Oral [Active]; meloxicam oral [Active]; omeprazole 20 mg Oral TbLD [Active]; potassium chloride 20 mEq Oral pack [Active]; Advair Diskus Inhl [Active]; Aspercreme (lidocaine) topical [Active]; benzonatate oral [Active]; Biofreeze (menthol) topical [Active]; cromolyn ophthalmic (eye) [Active]; hydrocortisone acetate Rectal [Active]; ipratropium-albuterol inhalation Inhl [Active]; Milk of Magnesia Oral [Active]; Tramadol Oral [Active]; Trazodone Oral [Active]; - PMHx: 19:04 Asthma; Hypertension; CVA; jd3 - PSHx: 19:04 ABRIL knee; jd3 - Immunization history:: Adult Immunizations up to date, Client reports receiving the 2nd dose of the Covid vaccine. - Social history:: Patient/guardian denies using alcohol, street drugs, The patient lives with family, Smoking status: Patient denies any tobacco usage or history of. Screenin:45 Abuse screen: Denies threats or abuse. Nutritional screening: No deficits noted. jd3 Tuberculosis screening: No symptoms or risk factors identified. Fall Risk Secondary diagnosis (15 points) impaired mobility, Ambulatory Aid- None/Bed Rest/Nurse Assist (0 pts). Gait- Impaired (20 pts.). Mental Status- Oriented to own ability (0 pts). Total Brasher Fall Scale indicates Low Risk Score (25-44 pts). Fall prevention measures have been instituted. Side Rails Up X 2 Placed close to Nursing Station Frequent Obs/Assesments occuring Family Present and informed to notify staff if they need to leave bedside. Assessment: 18:45 VAN Scoring: Arm Drift: Flaccid/no antigravity Visual Disturbance: No visual jd3 disturbance noted. Aphasia: No aphasia noted. Neglect: No neglect noted. The patient has not been NPO before screening. The patient is currently on the following diet: regular The patient is alert, and able to follow commands. The patient does not exhibit slurred or garbled speech. The patient is not exhibiting difficulty speaking. The patient does not exhibit difficulty understanding words. The patient is able to swallow own secretions with no drooling or need for suction. Patient tolerated one teaspoon of water. No drooling, immediate coughing, gurgling, or clearing of the throat was noted. The patient tolerated 90mL of water. No drooling, immediate coughing, gurgling, or clearing of the throat was noted. The patient passed the bedside swallow screening. Oral medications may be given as ordered. Contact Physician for further diet orders. Provider notified of bedside swallow screening results: Eduardo Morales MD. T-PA (Activase) Screening: Contraindications: Is the patient on Aspirin, Heparin, or Warfarin: Yes. Rapidly improving condition or minor deficit: Yes. General: Appears in no apparent distress. comfortable, Behavior is calm, cooperative, appropriate for age. Pain: Complains of pain in pelvis Quality of pain is described as aching. Neuro: Level of Consciousness is awake, alert, obeys commands, Oriented to person, place, time, situation, left arm contraction, left leg weakness, and left sided facial droop noted: pt reported from previous CVA. no new symptoms noted at this time.. Reports lip numbness prior to arrival. symptoms resolved. Cardiovascular: Denies chest pain, Capillary refill < 3 seconds Patient's skin is warm and dry. Rhythm is regular. Respiratory: Airway is patent Respiratory effort is even, unlabored, Respiratory pattern is regular, symmetrical, Denies cough, shortness of breath. GI: No signs and/or symptoms were reported involving the gastrointestinal system. : No signs and/or symptoms were reported regarding the genitourinary system. EENT: No signs and/or symptoms were reported regarding the EENT system. Derm: Skin is intact, Skin is dry, Skin is normal, Skin temperature is warm. Musculoskeletal: No signs and/or symptoms reported regarding the musculoskeletal system. 19:30 Reassessment: Patient and/or family updated on plan of care and expected duration. Pain aj1 level reassessed. General: Appears in no apparent distress. comfortable, Behavior is calm, cooperative, appropriate for age. Pain: Denies pain. Neuro: Level of Consciousness is awake, alert, obeys commands, Oriented to person, place, time, situation, Reports numbness of the right side of the face that has now resolved. Cardiovascular: Denies chest pain, Patient's skin is warm and dry. Respiratory: Airway is patent Respiratory effort is even, unlabored, Respiratory pattern is regular, symmetrical, Denies cough, shortness of breath. GI: No signs and/or symptoms were reported involving the gastrointestinal system. Abdomen is non-distended. : No signs and/or symptoms were reported regarding the genitourinary system. EENT: No signs and/or symptoms were reported regarding the EENT system. Derm: No signs and/or symptoms reported regarding the dermatologic system. Skin is pink, warm \\T\\ dry. normal. Musculoskeletal: No signs and/or symptoms reported regarding the musculoskeletal system. Left arm is contracted, left sided weakness from previous stroke. 20:30 Reassessment: Patient appears in no apparent distress at this time. No changes from aj1 previously documented assessment. Patient and/or family updated on plan of care and expected duration. Pain level reassessed. Patient is alert, oriented x 3, equal unlabored respirations, skin warm/dry/pink. 21:30 Reassessment: Patient appears in no apparent distress at this time. No changes from aj1 previously documented assessment. Patient and/or family updated on plan of care and expected duration. Pain level reassessed. Patient is alert, oriented x 3, equal unlabored respirations, skin warm/dry/pink. 22:30 Reassessment: Patient appears in no apparent distress at this time. No changes from aj1 previously documented assessment. Patient and/or family updated on plan of care and expected duration. Pain level reassessed. Patient is alert, oriented x 3, equal unlabored respirations, skin warm/dry/pink. 23:30 Reassessment: Patient appears in no apparent distress at this time. No changes from aj1 previously documented assessment. Patient and/or family updated on plan of care and expected duration. Pain level reassessed. Patient is alert, oriented x 3, equal unlabored respirations, skin warm/dry/pink. Vital Signs: 19:13 BP 140 / 65; Pulse 64; Resp 18 S; Temp 98.5(O); Pulse Ox 95% on R/A; Weight 69.4 kg jd3 (R); Height 4 ft. 11 in. (149.86 cm) (R); Pain 5/10; 20:30 BP 165 / 72; Pulse 60; Resp 18; Pulse Ox 95% on R/A; aj1 21:30 BP 148 / 63; Pulse 75; Resp 18; Pulse Ox 94% on R/A; aj1 22:30 BP 152 / 68; Pulse 77; Resp 18; Pulse Ox 95% on R/A; aj1 19:13 Body Mass Index 30.90 (69.40 kg, 149.86 cm) jd3 NIH Stroke Scale Scores: 18:45 NIHSS Score: 6 jd3 ED Course: 18:26 Patient arrived in ED. iw 18:44 Wyatt Dunbar MD is Attending Physician. ma2 18:46 CT Stroke Brain w/o Contrast In Process Unspecified. EDMS 19:00 Tato Sullivan, RN is Primary Nurse. jd3 19:03 Triage completed. jd3 19:05 Attending Physician role handed off by Wyatt Dunbar MD 7 19:05 Eduardo Morales MD is Attending Physician. mh7 19:14 Arm band placed on. jd3 19:32 Stroke CXR 1 View In Process Unspecified. EDMS 19:34 Patient has correct armband on for positive identification. Placed in gown. Bed in low jd3 position. Call light in reach. Side rails up X2. Adult w/ patient. engine monitor on. Pulse ox on. NIBP on. 20:16 Abdirashid Bethea MD is Hospitalizing Provider. [facility] 21:57 Inserted saline lock: 22 gauge in right hand, using aseptic technique. oe 23:56 No provider procedures requiring assistance completed. Patient admitted, IV remains in aj1 place. Administered Medications: No medications were administered Outcome: 20:17 Decision to Hospitalize by Provider. [facility] 23:57 Admitted to Med/surg accompanied by tech, via stretcher, with chart. [facility] 23:57 Condition: good 23:57 Discharge instructions given to patient, family, Instructed on the need for admit, Demonstrated understanding of instructions. 23:57 Patient left the ED. aj1 NIH Stroke Scale - NIH Stroke Score Date: 02/25/2021 Time: 18:45 Total Score = 6 1a. Level of Consciousness (LOC) - 0(Alert) 1b. Level of Consciousness (LOC) (Month \\T\\ Age) - 0(Both) 1c. LOC Commands (Open \\T\\ Closes Eyes/Accounting Teacher) - 0(Both) 2. Best Gaze (Lateral Gaze Paresis) - 0(Normal) 3. Visual Field Loss - 0(No visual loss) 4. Facial Palsy - 1(Minor Paralysis) 5a. Left Arm: Motor (10-second hold) - 9(Amputation, joint fusion) - Notes: contraction 5b. Right Arm: Motor (10-second hold) - 0(No drift) 6a. Left Leg: Motor (5-second hold - always test supine) - 2(Drift, some effort against gravity) 6b. Right Leg: Motor (5-second hold - always test supine) - 0(No drift) 7. Limb Ataxia (finger/nose \\T\\ heel/bello - test with eyes open) - 2(Present in two limbs) 8. Sensory Loss (pinprick arms/legs/face) - 1(Mild to moderate loss) 9. Best Language: Aphasia (description/naming/reading) - 0(No aphasia) 10. Dysarthria (speech clarity - read or repeat words) - 0(Normal) 11. Extinction and Inattention (visual/tactile/auditory/spatial/personal) - 0(No abnormality) Initials: jd3 Signatures: Dispatcher [employer] EDMirian Ozuna RN RN aj1 Cass Vasquze RN Gavin Granados Jonathon, RN RN jd3 Wyatt Dunbar MD MD ma2 Eduardo Morales MD MD mh7 Corrections: (The following items were deleted from the chart) 22:07 21:57 Inserted saline lock: in right hand, using aseptic technique. oe dejah
--- NOTE | 2021-02-25 20:53 | P.HP ---
Certification for Inpatient Patient admitted to: Observation With expected LOS: <2 Midnights Patient will require the following post-hospital care: None Practitioner: I am a practitioner with admitting privileges, knowledge of patient current condition, hospital course, and medical plan of care. Services: Services provided to patient in accordance with Admission requirements found in Title 42 Section 412.3 of the Code of Federal Regulations Patient History Date of Service: 02/25/21 Primary Care Provider: group home doctor, neurology Dr. Fontana Reason for admission: TIA History of Present Illness: 85-year-old female with history of hypertension, GERD, asthma, CVA with left-sided hemiplegia presents emergency department for slurred speech, facial weakness. Patient currently resident of [facility], patient was noted to have facial weakness, difficulty speaking approximately 30 minutes prior to arrival, patient with previous MCA stroke affecting her left side. Upon arrival to the emergency department patient symptoms have resolved she is back to her baseline with left-sided weakness. Patient was evaluated in the emergency department, labs were unremarkable CT head brain without contrast demonstrates remote previous MCA territory infarct. Chest x-ray unremarkable, ED provider wishes to admit under observation for TIA. Allergies No Known Allergies Allergy (Unverified 09/26/19 21:32) Home Medications: Advair 250/50mg 1 puff IH BID 11/05/19 Albuterol Neb [Proventil 0.083% Neb Soln] 2.5 mg NEB TIDRESP PRN amp 11/05/19 Apixaban [Eliquis *] 2.5 mg PO BID tablet 11/05/19 Atorvastatin Calcium [Lipitor] 80 mg PO BEDTIME tab 11/05/19 Baclofen [Lioresal*] 5 mg PO BID tab 11/05/19 Benzonatate [Tessalon Perle*] 200 mg PO TID PRN cap 11/05/19 Bisacodyl [Dulcolax*] 10 mg NC DAILY PRN supp 11/05/19 Clotrim/Betameth Cream [Lotrisone Cream*] 1 appl TOP BID tube 11/05/19 Docusate/Senna [Senokot-S*] 2 tab PO BEDTIME tab 11/05/19 Enema, Fleet Adult [Fleet Enema Adult*] 133 ml NC DAILY PRN btl 11/05/19 Ensure High Protein 237 ml PO BID can 11/05/19 Furosemide [Lasix*] 10 mg PO DAILY tab 11/05/19 Gabapentin [Neurontin*] 100 mg PO BID cap 11/05/19 Ipratropium Neb [Atrovent*] 0.5 mg IH TIDRESP PRN amp 11/05/19 Labetalol HCl [Trandate*] 200 mg PO Q8H tab 11/05/19 Lidocaine 4% Patch [Lidoderm 5% Patch*] 2 patch TOP DAILY patch 11/05/19 Mag Hydroxide 8% [Milk Of Magnesia*] 30 ml PO DAILY PRN ucup 11/05/19 Magnesium Oxide [Mag 0X*] 800 mg PO BID tab 11/05/19 Metoclopramide [Reglan*] 5 mg PO Q6H PRN tab 11/05/19 Ondansetron [Zofran (Odt)*] 4 mg PO Q4H PRN tab 11/05/19 Pantoprazole [Protonix Tab*] 40 mg PO ACB tab 11/05/19 Potassium Oral Tab [Klor-Con 10 mEq Tab*] 10 meq PO DAILY tab 11/05/19 Tamsulosin [Flomax*] 0.4 mg PO BEDTIME cap 11/05/19 Valsartan [Diovan*] 160 mg PO DAILY tab 11/05/19 traMADol HCL [Ultram*] 50 mg PO Q6H PRN tab 11/05/19 - Past Medical/Surgical History Diabetic: No -: HTN -: Hyperlipidemia -: Large MCA stroke with left-sided weakness -: Asthma -: GERD -: Bilateral knee surgeries Psychosocial/ Personal History: Currently resident of assisted living facility - Family History Father -: Heart disease - Social History Smoking Status: Never smoker Alcohol use: Yes CD- Drugs: No Caffeine use: No Place of Residence: Home Review of Systems 10-point ROS is otherwise unremarkable Neurological: Weakness, Change in Speech, As per HPI Physical Examination - Physical Exam General: Alert, In no apparent distress, Oriented x3 HEENT: Atraumatic, PERRLA, Mucous membr. moist/pink, EOMI, Sclerae nonicteric Neck: Supple, 2+ carotid pulse no bruit, No LAD, Without JVD or thyroid abnorma lity Respiratory: Clear to auscultation bilaterally, Normal air movement Cardiovascular: Regular rate/rhythm, Normal S1 S2 Gastrointestinal: Normal bowel sounds, No tenderness Musculoskeletal: No tenderness Integumentary: No rashes Neurological: Normal gait, Normal speech, Normal affect, Abnormal strength (Left-sided hemiplegia, contractions noted to left upper extremity), Abnormal tone (Contracted, left-sided hemiplegia) Lymphatics: No axilla or inguinal lymphadenopathy - Studies Laboratory Data (last 24 hrs) 02/25/21 18:58: PT 12.4, INR 1.08, APTT 28.1 02/25/21 18:58: WBC 8.00, Hgb 12.3, Hct 35.6 L, Plt Count 204 02/25/21 18:58: Sodium 140, Potassium 4.7, BUN 26 H, Creatinine 1.10, Glucose 98, Magnesium 2.4, Lipase 57 L Assessment and Plan - Plan Assessment: Facial weakness, numbness, slurred speechresolved suspect TIA History of large previous MCA stroke with left-sided hemiplegia Hypertension Hyperlipidemia GERD Asthma Plan: Facial weakness, numbness, slurred speechresolved suspect TIA: Symptoms have resolved at this time, CT head unremarkable aside from previous CVA noted on scan. Continue Eliquis 2.5 mg p.o. twice daily, folic acid, statin therapy. Consult neurology, every 6 hours neurochecks. Will have patient evaluated by physical therapy, did pass bedside swallow screen. History of large previous MCA stroke with left-sided hemiplegia: Symptoms stable at this time, will have patient work with physical therapy during her stay. Appreciate further input from neurology. Continue medications. Hypertension: Obtain and continue medications Hyperlipidemia:Obtain and continue medications GERD:Obtain and continue medications Asthma:Obtain and continue medications DVT PPX: Eliquis 2.5 mg p.o. twice daily Code status: Fullpatient uncertain of this is supposed to discuss further with daughter. Discharge Plan: Home Plan to discharge in: 24 Hours - Advance Directives Does patient have a Living Will: No Does patient have a Durable POA for Healthcare: No - Code Status/Comfort Care Code Status Assessed: Yes (Full code) Critical Care: No Time Spent Managing Pts Care (In Minutes): 55
--- NOTE | 2021-02-25 21:01 | RAD REPORT ---
EXAM DESCRIPTION: RAD - Chest Single View - 02/25/2021 7:32 pm CLINICAL HISTORY: aphasia COMPARISON: Abdomen 1 View (KUB) dated 10/01/2019; Chest Single View dated 07/11/2019; Chest Pa And La t (2 Views) dated 01/09/2019; Chest Pa And Lat (2 Views) dated 08/15/2017 FINDINGS: No evidence of edema or pneumonia. The heart size is within normal limits.No acute osseous abnormality. No significant pleural effusions or pneumothorax. Cardiomegaly. IMPRESSION: No acute cardiopulmonary disease.
[2021-02-26] MEDS ORDERED: ONDANSETRON 4 MG/2 ML VIAL IV PRN (00:20)
[2021-02-26 00:22] VITALS: BMI 25.6
[2021-02-26] MEDS: NA CHLORIDE 0.9% 1,000 ML IV SCH ×2 (00:54→13:40)
[2021-02-26] MEDS: APIXABAN 2.5 MG TABLET PO SCH ×3 (01:02→21:24)
[2021-02-26] MEDS: ATORVASTATIN 40 MG TAB PO SCH ×2 (01:02→21:16)
[2021-02-26 02:36] LABS: Urine Appearance CLEAR (Clear); Urine Bilirubin NEGATIVE (Negative); Urine Blood NEGATIVE (Negative); Urine Color YELLOW (Yellow); Urine Glucose NEGATIVE (Negative); Urine Protein NEGATIVE (Negative); Urine Urobilinogen 0.2 mg/dL (0.2-1.0)
[2021-02-26 02:37] LABS: Urine Microscopic Reflex ORDER UMIC
[2021-02-26 03:06] LABS: Urine Bacteria >50 /HPF (<20); Urine RBC <5 /HPF (NONE SEEN)
[2021-02-26] MEDS ORDERED: MAGNESIUM HYDROXIDE 8% 30 ML PO PRN (05:08)
[2021-02-26] MEDS ORDERED: ALBUTEROL INHALER 60 PUFF/8 GM IH PRN (05:08)
[2021-02-26] MEDS ORDERED: TRAMADOL HCL 50 MG TAB PO PRN (05:08)
[2021-02-26] MEDS ORDERED: IPRATROPIUM BROM 0.5MG/2.5ML IH PRN (05:08)
[2021-02-26] MEDS ORDERED: KETOCONAZOLE TOP SCH (05:15)
[2021-02-26] MEDS: PANTOPRAZOLE 40MG TABLET PO SCH (05:51)
[2021-02-26 06:27] LABS: Absolute Lymphocytes (CBC) 1.9 K/uL (0.7-4.9); Basophils % 0.4 % (0-1.3); Hematocrit 31.1 % (36.0-45.0); Lymphocytes % 25.7 % (15.3-44.8); MPV 8.6 fL (7.6-11.3); RBC Red Blood Cell Count 3.18 M/uL (3.86-4.86)
[2021-02-26 06:48] LABS: Albumin 3.1 g/dL (3.4-5.0); Bilirubin Total 0.5 mg/dL (0.2-1.0); Magnesium 2.3 mg/dL (1.8-2.4); Potassium 3.9 mmol/L (3.5-5.1); Thyroid Stimulating Hormone 0.92 uIU/mL (0.360-3.740)
[2021-02-26] MEDS: MAGNESIUM OXIDE 400 MG TAB PO SCH ×2 (09:00→21:00)
[2021-02-26] MEDS ORDERED: HOME MED 1 EA UNK (Omeprazole [Omeprazole] 20 MG Capsule.Dr) PO SCH (09:00)
[2021-02-26] MEDS: POTASSIUM CL SA 10 MEQ TAB PO SCH ×2 (09:47→21:17)
[2021-02-26] MEDS: LABETALOL HCL 100 MG TAB PO SCH ×2 (09:47→21:17)
[2021-02-26] MEDS: HYDRALAZINE HCL 25 MG TABLET PO SCH ×3 (09:47→21:16)
[2021-02-26] MEDS: LOSARTAN POTASSIUM 50 MG TABLET PO SCH (09:48)
[2021-02-26] MEDS: BACLOFEN 10 MG TAB PO SCH ×2 (09:48→21:20)
[2021-02-26] MEDS: FUROSEMIDE 20 MG TABLET PO SCH (09:48)
[2021-02-26] MEDS: MELOXICAM 7.5 MG TAB PO SCH (09:48)
[2021-02-26] MEDS: FOLIC ACID 1 MG TABLET PO SCH (09:48)
--- NOTE | 2021-02-26 14:00 | RAD REPORT ---
EXAM DESCRIPTION: USCarotid Artery Bilateral02/26/2021 1:30 pm CLINICAL HISTORY: CVA COMPARISON: None FINDINGS: The velocity of the right internal carotid artery equals 75 cm/sec. The right ICA/CCA rati o .7 The velocity of the left internal carotid artery equals 109 cm/sec. The left ICA/CCA ratio .9 Mild plaque is present within the carotid arteries. The vertebral arteries demonstrate antegrade flow IMPRESSION: Mild plaque within the carotid arteries without evidence of a hemodynamically significan t stenosis NASCET criteria used. Mild 0-49% stenosis Moderate 50-69% stenosis Severe 70-99% stenosis
--- NOTE | 2021-02-26 15:51 | P.PN ---
Subjective Date of Service: 02/26/21 Primary Care Provider: residential doctor, neurology Dr. Fontana Chief Complaint: TIA Subjective: No new changes (feels ok, feels numbness and difficulty speaking has improved/resolved. still with L weakness from prior stroke) Review of Systems 10-point ROS is otherwise unremarkable Physical Examination - Vital Signs Temperature: 98.4 F Blood Pressure: 145/63 Pulse: 70 Respirations: 16 Pulse Ox (%): 95 - Studies Laboratory Data (last 24 hrs) 02/25/21 18:58: PT 12.4, INR 1.08, APTT 28.1 02/25/21 18:58: WBC 8.00, Hgb 12.3, Hct 35.6 L, Plt Count 204 02/25/21 18:58: Sodium 140, Potassium 4.7, BUN 26 H, Creatinine 1.10, Glucose 98, Magnesium 2.4, Lipase 57 L Assessment & Plan Physician Review Additional Text: Physical Exam General: NAD, AAOx3 HEENT: MMM, normal conjunctiva Respiratory: Clear to auscultation bilaterally, Normal air movement Cardiovascular: Regular rate/rhythm, Normal S1 S2 Gastrointestinal: soft, nontender, nondistended Integumentary: No rashes Neurological: Normal speech, Normal affect, left-sided hemiplegia, contractions noted to left upper extremity, slight contraction / hypertonicity of LLE as well Lymphatics: No axilla or inguinal lymphadenopathy Problem List Facial weakness, numbness, slurred speechresolved suspect TIA History of large previous MCA stroke with left-sided hemiplegia Hypertension Hyperlipidemia GERD Asthma Facial weakness, numbness, slurred speechresolved suspect TIA: 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 Continue Eliquis 2.5 mg p.o. twice daily, folic acid, statin therapy. Consult neurology, every 6 hours neurochecks. passed bedside screen evaluated by PT - recommend SNF HTN,HLD, GERD, Asthma - stable, confirm/continue home meds Dispo: social work nurse consulted for SNF referral Time Spent Managing Pts Care (In Minutes): 35
[2021-02-26] MEDS: TRAMADOL HCL 50 MG TAB PO PRN (21:23)
[2021-02-27] MEDS: PANTOPRAZOLE 40MG TABLET PO SCH (05:50)
[2021-02-27 05:54] LABS: Absolute Lymphocytes (CBC) 1.6 K/uL (0.7-4.9); Basophils % 0.5 % (0-1.3); Hematocrit 30.8 % (36.0-45.0); Lymphocytes % 29.8 % (15.3-44.8); MPV 8.9 fL (7.6-11.3); RBC Red Blood Cell Count 3.14 M/uL (3.86-4.86)
[2021-02-27 06:35] LABS: Bilirubin Total 0.4 mg/dL (0.2-1.0); Magnesium 2.2 mg/dL (1.8-2.4); Potassium 4.2 mmol/L (3.5-5.1); Protein, Total 5.7 g/dL (6.4-8.2)
[2021-02-27] MEDS: MAGNESIUM OXIDE 400 MG TAB PO SCH ×2 (09:00→20:59)
[2021-02-27] MEDS ORDERED: LEVOFLOXACIN 750MG/D5W 150 ML IV SCH (11:00)
--- NOTE | 2021-02-27 11:19 | P.PN ---
Subjective Date of Service: 02/27/21 Primary Care Provider: shelter doctor, neurology Dr. Fontana Chief Complaint: TIA Subjective: No new changes (generalized weakness with chronic L sided weakness/contracture, no new symptoms, no facial numbness, no difficulty speakin g/swallowing) Review of Systems 10-point ROS is otherwise unremarkable Physical Examination - Vital Signs Temperature: 97.3 F Blood Pressure: 171/70 Pulse: 65 Respirations: 16 Pulse Ox (%): 96 Assessment & Plan Physician Review Additional Text: Physical Exam General: NAD, AAOx3 HEENT: MMM, normal conjunctiva Respiratory: Clear to auscultation bilaterally, Normal air movement Cardiovascular: Regular rate/rhythm, Normal S1 S2 Gastrointestinal: soft, nontender, nondistended Neurological: Normal speech, left-sided hemiplegia, contractions noted to left upper extremity, slight contraction / hypertonicity of LLE as well Problem List Facial weakness, numbness, slurred speechresolved suspect TIA 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 Continue Eliquis 2.5 mg p.o. twice daily, folic acid, statin therapy. Consulted neurology passed bedside screen evaluated by PT - recommend SNF improved Acute uncomplicated cystitis -pt reports no significant change in urinary habits, no dysuria. afebrile -UA suggestive of UTI, urine with GNR -start levaquin for empiric treatment HTN,HLD, GERD, Asthma stable, continue home meds Dispo: social welfare administrator consulted for SNF referral Time Spent Managing Pts Care (In Minutes): 35
[2021-02-27] MEDS: HYDRALAZINE HCL 25 MG TABLET PO SCH ×3 (11:26→20:58)
[2021-02-27] MEDS: LABETALOL HCL 100 MG TAB PO SCH ×2 (11:27→20:58)
[2021-02-27] MEDS: LOSARTAN POTASSIUM 50 MG TABLET PO SCH (11:29)
[2021-02-27] MEDS: APIXABAN 2.5 MG TABLET PO SCH ×2 (11:29→21:02)
[2021-02-27] MEDS: FOLIC ACID 1 MG TABLET PO SCH (11:29)
[2021-02-27] MEDS: POTASSIUM CL SA 10 MEQ TAB PO SCH ×2 (11:30→20:59)
[2021-02-27] MEDS: MELOXICAM 7.5 MG TAB PO SCH (11:30)
[2021-02-27] MEDS: FUROSEMIDE 20 MG TABLET PO SCH (11:30)
[2021-02-27] MEDS: BACLOFEN 10 MG TAB PO SCH ×2 (11:31→20:59)
[2021-02-27] MEDS: TRAMADOL HCL 50 MG TAB PO PRN (11:32)
[2021-02-27] MEDS: Levofloxacin 750mg IV 750 MG/150 ML BAG IV SCH ×3 (12:17→14:19)
[2021-02-27] MEDS: TRAZODONE 50 MG TABLET PO PRN (20:57)
[2021-02-27] MEDS: ATORVASTATIN 40 MG TAB PO SCH (20:59)
[2021-02-28] MEDS: PANTOPRAZOLE 40MG TABLET PO SCH ×2 (06:04→10:17)
[2021-02-28] MEDS: MAGNESIUM OXIDE 400 MG TAB PO SCH ×2 (09:00→21:13)
[2021-02-28] MEDS: POTASSIUM CL SA 10 MEQ TAB PO SCH ×2 (10:12→21:12)
[2021-02-28] MEDS: HYDRALAZINE HCL 25 MG TABLET PO SCH ×3 (10:14→21:12)
[2021-02-28] MEDS: LOSARTAN POTASSIUM 50 MG TABLET PO SCH (10:15)
[2021-02-28] MEDS: FUROSEMIDE 20 MG TABLET PO SCH (10:15)
[2021-02-28] MEDS: LABETALOL HCL 100 MG TAB PO SCH ×2 (10:16→21:13)
[2021-02-28] MEDS: MELOXICAM 7.5 MG TAB PO SCH (10:16)
[2021-02-28] MEDS: FOLIC ACID 1 MG TABLET PO SCH (10:19)
[2021-02-28] MEDS: APIXABAN 2.5 MG TABLET PO SCH ×2 (10:19→21:13)
[2021-02-28] MEDS: BACLOFEN 10 MG TAB PO SCH ×2 (10:19→21:14)
--- NOTE | 2021-02-28 14:42 | P.PN ---
Subjective Date of Service: 02/28/21 Primary Care Provider: [facility] doctor, neurology Dr. Fontana Chief Complaint: TIA Subjective: No new changes (feeling well, with left sided weakness, L foot discomfort/tingling at times -worse in AM no facical numbness/tingling, no difficulty swallowing. reports over last few weeks with increased urinary frequency, no dysuria.) Review of Systems 10-point ROS is otherwise unremarkable Physical Examination - Vital Signs Temperature: 98.0 F Blood Pressure: 118/57 Pulse: 66 Respirations: 17 Pulse Ox (%): 96 Assessment & Plan Physician Review Additional Text: Physical Exam General: NAD, AAOx3 HEENT: MMM, normal conjunctiva Respiratory: Clear to auscultation bilaterally, Normal air movement Cardiovascular: Regular rate/rhythm, Normal S1 S2 Gastrointestinal: soft, nontender, nondistended Neurological: Normal speech, left-sided hemiplegia, contractions noted to left upper extremity, slight contraction / hypertonicity of LLE as well, sensation intact in bilateral legs/feet Problem List Facial weakness, numbness, slurred speechresolved suspect TIA 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 Continue Eliquis 2.5 mg p.o. twice daily, folic acid, statin therapy. Consulted neurology - to see patient today passed bedside screen, tolerating diet without issue evaluated by PT - recommend SNF Acute uncomplicated cystitis -pt reports increased urinary frequency over last 2-3 weeks, no dysuria, no foul smell. afebrile -UA suggestive of UTI, urine with GNR -started levaquin for empiric treatment 02/27 HTN,HLD, GERD, Asthma stable, continue home meds Dispo: high school social studies tutor consulted for SNF referral Time Spent Managing Pts Care (In Minutes): 40
[2021-02-28] MEDS: TRAMADOL HCL 50 MG TAB PO PRN (18:24)
[2021-02-28] MEDS: ATORVASTATIN 40 MG TAB PO SCH (21:12)
[2021-03-01] MEDS: LOSARTAN POTASSIUM 50 MG TABLET PO SCH (09:01)
[2021-03-01] MEDS: BACLOFEN 10 MG TAB PO SCH ×2 (09:02→21:10)
[2021-03-01] MEDS: MAGNESIUM OXIDE 400 MG TAB PO SCH ×2 (09:02→21:00)
[2021-03-01] MEDS: POTASSIUM CL SA 10 MEQ TAB PO SCH ×2 (09:02→21:10)
[2021-03-01] MEDS: MELOXICAM 7.5 MG TAB PO SCH (09:02)
[2021-03-01] MEDS: FUROSEMIDE 20 MG TABLET PO SCH (09:03)
[2021-03-01] MEDS: APIXABAN 2.5 MG TABLET PO SCH ×2 (09:03→21:10)
[2021-03-01] MEDS: LABETALOL HCL 100 MG TAB PO SCH ×2 (09:03→21:13)
[2021-03-01] MEDS: HYDRALAZINE HCL 25 MG TABLET PO SCH ×3 (09:03→21:10)
[2021-03-01] MEDS: FOLIC ACID 1 MG TABLET PO SCH (09:03)
[2021-03-01] MEDS: Levofloxacin 750mg IV 750 MG/150 ML BAG IV SCH (09:13)
--- NOTE | 2021-03-01 12:41 | RAD REPORT ---
EXAM DESCRIPTION: MRI - MRA Head Wo Cont - 03/01/2021 12:15 pm CLINICAL HISTORY: TIA, bilateral extremity weakness COMPARISON: MRI brain same date, CT head February 25 TECHNIQUE: Axial and coronal 3D [id number] image acquisition was performed. 3D rotational images were generated with source and reconstruction images reviewed. Horizontal and vertical axis rotation al views generated using MIP protocol. FINDINGS: No aneurysm or vascular malformation. Basilar artery and distal internal carotid arteries show no suspicious findings. Dominant left vertebral artery shows no suspicious findings. Right verte bral artery is absent from the field of view. No vasculitis. No named branch occlusion identifiable. There are atherosclerotic changes seen mild in the middle cerebral arteries and most prominent in the A1 segment of the right anterior cerebral artery. No significant posterior cerebral atherosclerotic changes. IMPRESSION: No named branch occlusion, vasculitis or other acute vascular finding. Mild bilateral middle cerebral artery atherosclerotic change with moderate atherosclerotic change in the A1 segment right anterior cerebral artery. 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
--- NOTE | 2021-03-01 12:47 | RAD REPORT ---
EXAM DESCRIPTION: MRI - MRA Neck W/Wo Cont - 03/01/2021 12:15 pm CLINICAL HISTORY: TIA, extremity weakness COMPARISON: MRI brain same date, CT head February 25 TECHNIQUE: MR angiography of the cervical vasculature performed. Coronal imaging plane acquisition u tilized. A 13 MultiHance contrast volume was utilized. Coronal reformatted images were generated and reviewed. Vertical axis 3D rotational projections obtained using maximum intensity projection protoco l. FINDINGS: Exam has motion degradation limitations. Aortic arch is 3 vessel configuration with no origin stenoses. No origin stenosis of the left vertebr al artery. Right vertebral artery is not identifiable. The amount of motion in the region of the inno minate and right subclavian arteries precludes evaluation of any possible right vertebral artery stum p. The left vertebral artery is quite large and tortuous. 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 A few faint vessels in the region of the right vertebral artery are probably muscle branches. Proximal right common carotid artery is poorly visualized due to the amount of motion. Distal common carotid artery is unremarkable. Right internal carotid artery shows minimal tortuosity with no dissec tion or stenosis. The proximal left common carotid artery also suffers from motion limitation. Signif icant abnormality is doubtful. Distal left common carotid artery and the left internal carotid arteri es show no dissection or significant atherosclerotic change. IMPRESSION: MRA neck examination shows no significant or acute finding. The exam is limited in evaluating each proximal common carotid artery due to the amount of motion pre sent. Nonvisualization of the right vertebral artery with a very large left vertebral artery. This would dubois ggest the right vertebral artery is congenitally absent or is a far remote injury.
--- NOTE | 2021-03-01 12:53 | RAD REPORT ---
EXAM DESCRIPTION: MRI - Brain W/Wo Cont - 03/01/2021 12:15 pm CLINICAL HISTORY: tia, prior CVA, extremity weakness COMPARISON: MRA Head Wo Cont dated 03/01/2021 TECHNIQUE: Sagittal and axial T1-weighted images were obtained. Axial PD/heavily T2-weighted and T2- FLAIR images were obtained along with axial DWI/ADC mapping sequences. Coronal heavily T2 weighted s equence obtained. Axial and coronal post-contrast T1-weighted images were also obtained. A 13 ml Mul tihance contrast following utilized. FINDINGS: No intracranial hemorrhage, mass, mass effect or edema. There is no midline shift. Patient has a large amount of encephalomalacia in the right frontal and parietal lobes from prior CVA. Serpi ginous hyperintense T1 signal is seen along the thinned flores matter of numerous parietal gyri. This i s all believed to be the sequela of remote infarction. Diffusion-weighted imaging does show a small l inear focus of signal abnormality within the area of right parietal remote CVA. Infarction of a small remnant of cortex is possible. This is probably not of any significance to the patient's broader pre sentation. There are no other areas of acute diffusion signal abnormality. Moderately prominent atrophy is present in addition to the right cerebral encephalomalacia. Underlyin g chronic ischemic changes are present. Ventricles are in proportion to the amount of volume loss. Si gnal voids are seen as a normal finding in the major intracranial vessels. No dural thickening or abnormal dural enhancement seen. No suspicious brain parenchymal enhancement p attern seen. There is gyriform enhancement in the area of old infarction not regarded as of acute cli nical significance. Major venous sinuses are patent. No globe or orbital content abnormality. Mastoid air cells and paranasal sinuses are clear. Mastoid air cells and paranasal sinuses are clear. IMPRESSION: Patient has a large area of encephalomalacia involving the right frontal and parietal lo bes from prior CVA. A small focus of linear diffusion signal abnormality is seen within the old right parietal infarction zone. This is potentially infarction of a small remnant of flores matter. If a true finding, this is p robably not significant in the overall clinical presentation for the patient. No other finding for acute infarction or other acute intracranial process. Moderate severity underlying atrophy and chronic ischemic change
[2021-03-01] MEDS: TRAMADOL HCL 50 MG TAB PO PRN (14:07)
--- NOTE | 2021-03-01 18:18 | P.PN ---
Subjective Date of Service: 03/01/21 Primary Care Provider: correction doctor, neurology Dr. Fontana Chief Complaint: TIA Physical Examination - Vital Signs Temperature: 97.7 F Blood Pressure: 137/65 Pulse: 60 Respirations: 17 Pulse Ox (%): 95 - Studies Microbiology Data (last 24 hrs): 02/26/21 01:32 Clean Catch Urine [place] Count - Final >100,000 CFU/ML. 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 MRI of the brain no acute CVA. Patient is on Eliquis 2.5 mg p.o. twice daily, folic acid, statin therapy. Dr. Fontana consulted passed bedside dysphagia screen, tolerating diet without issue evaluated by PT -patient needing total assist with transfers. Recommend SNF Acute uncomplicated cystitis -pt reports increased urinary frequency over last 2-3 weeks, no dysuria, no foul smell. afebrile -UA suggestive of UTI, urine culture grew Pseudomonas sensitive to Levaquin. -patient to complete 5-7 days treatment. HTN,HLD, GERD, Asthma stable, continue home meds Dispo: Daughter requesting for disposition to inpatient rehab([facility]). Social service is assisting with discharge planning.
[2021-03-01] MEDS: ATORVASTATIN 40 MG TAB PO SCH (21:10)
[2021-03-01] MEDS: TRAZODONE 50 MG TABLET PO PRN (21:10)
[2021-03-02] MEDS: PANTOPRAZOLE 40MG TABLET PO SCH (05:53)
[2021-03-02] MEDS: POTASSIUM CL SA 10 MEQ TAB PO SCH ×2 (09:00→21:38)
[2021-03-02] MEDS: FOLIC ACID 1 MG TABLET PO SCH (09:01)
[2021-03-02] MEDS: FUROSEMIDE 20 MG TABLET PO SCH (09:01)
[2021-03-02] MEDS: HYDRALAZINE HCL 25 MG TABLET PO SCH ×3 (09:01→21:34)
[2021-03-02] MEDS: LOSARTAN POTASSIUM 50 MG TABLET PO SCH (09:01)
[2021-03-02] MEDS: BACLOFEN 10 MG TAB PO SCH ×2 (09:01→21:35)
[2021-03-02] MEDS: MAGNESIUM OXIDE 400 MG TAB PO SCH ×2 (09:02→21:00)
[2021-03-02] MEDS: APIXABAN 2.5 MG TABLET PO SCH ×2 (09:02→21:35)
[2021-03-02] MEDS: MELOXICAM 7.5 MG TAB PO SCH (09:02)
[2021-03-02] MEDS: LABETALOL HCL 100 MG TAB PO SCH ×2 (09:02→21:39)
[2021-03-02] MEDS: TRAMADOL HCL 50 MG TAB PO PRN (10:23)
--- NOTE | 2021-03-02 14:57 | P.PN ---
Subjective Date of Service: 03/02/21 Primary Care Provider: halfway doctor, neurology Dr. Fontana Chief Complaint: TIA Patient has no new complaint. She denies any increased weakness or numbness. She refused blood work today. Physical Examination - Vital Signs Temperature: 97.2 F Blood Pressure: 125/75 Pulse: 69 Respirations: 16 Pulse Ox (%): 96 - Physical Exam General: In no apparent distress, Oriented x3 HEENT: Mucous membr. moist/pink Neck: Supple, No Thyromegaly Respiratory: Clear to auscultation bilaterally, Normal air movement Cardiovascular: No edema, Regular rate/rhythm, Normal S1 S2 Capillary refill: <2 Seconds Gastrointestinal: Normal bowel sounds, Soft and benign, Non-distended, No tenderness Musculoskeletal: No swelling, Other (Contracted left upper extremity) Integumentary: No rashes Neurological: Cranial nerves 3-12 intact, Other (Power is 2/5 left UE, 3/5 Left LE. 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 She is currently at baseline. CT head unremarkable aside from previous CVA noted on scan. MRI of the brain no acute CVA. Patient is on Eliquis 2.5 mg p.o. twice daily, folic acid, statin therapy. Dr. Fontana to see patient. passed bedside dysphagia screen, tolerating diet without issue evaluated by PT -patient needing total assist with transfers. Recommend SNF Acute uncomplicated cystitis -pt reports increased urinary frequency over last 2-3 weeks, no dysuria, no foul smell. afebrile -UA suggestive of UTI, urine culture grew Pseudomonas sensitive to Levaquin. -patient to complete 5-7 days treatment. Continue Levaquin. HTN,HLD, GERD, Asthma stable, continue home meds
--- NOTE | 2021-03-02 21:04 | PN ---
Date of Progress Note: 03/02/2021 Reason: TIA. Interval History: The patient is stable. No recurrent episodes of paresthesia or confusion or dysar thria. It is unclear exactly since she had bilateral facial numbness. Brain MRI reviewed. No new a cute infarct. Carotids, no stenosis. The patient has a history of paroxysmal atrial fibrillation to account for the initial stroke. She has a significant residual spastic left hemiparesis. I am not sure what happened to my original consult dictated on the 26. We will have Nursing try and get hold of erp pm service so that note can be placed in the chart appropriately. Still awaiting dispo sition. The patient is struggling some with therapy. She is fairly deconditioned. I think if she g oes to rehab or SNF, she will probably need to start off on a graded program. Physical Examination: General: She is awake, alert. Vital Signs: Stable. Neurologic: Left hemianopia and confrontation, significant spastic left hemiparesis, arm greater saida n leg with fixed contracture in flexion, left elbow, wrist, fingers. Babinski on the left. Impression: Transient ischemic attack, prior stroke. Plan: No medication changes. Recommended that the patient would benefit from either [facility] facility or inpatient rehab stay. Thank you for the consult. LEBRON/ODILON Voice ID: [id number] Report ID: [id number]
[2021-03-02] MEDS: ATORVASTATIN 40 MG TAB PO SCH (21:34)
[2021-03-02] MEDS: TRAZODONE 50 MG TABLET PO PRN (21:39)
[2021-03-03] MEDS: PANTOPRAZOLE 40MG TABLET PO SCH (06:10)
[2021-03-03] MEDS: FUROSEMIDE 20 MG TABLET PO SCH (08:32)
[2021-03-03] MEDS: FOLIC ACID 1 MG TABLET PO SCH (08:32)
[2021-03-03] MEDS: HYDRALAZINE HCL 25 MG TABLET PO SCH ×3 (08:32→20:57)
[2021-03-03] MEDS: POTASSIUM CL SA 10 MEQ TAB PO SCH ×2 (08:32→20:57)
[2021-03-03] MEDS: LOSARTAN POTASSIUM 50 MG TABLET PO SCH (08:32)
[2021-03-03] MEDS: LABETALOL HCL 100 MG TAB PO SCH ×2 (08:32→20:57)
[2021-03-03] MEDS: MELOXICAM 7.5 MG TAB PO SCH (08:32)
[2021-03-03] MEDS: APIXABAN 2.5 MG TABLET PO SCH ×2 (08:33→20:59)
[2021-03-03] MEDS: MAGNESIUM OXIDE 400 MG TAB PO SCH ×2 (08:33→20:58)
[2021-03-03] MEDS: BACLOFEN 10 MG TAB PO SCH ×2 (08:33→20:56)
[2021-03-03] MEDS: Levofloxacin 750mg IV 750 MG/150 ML BAG IV SCH (08:34)
[2021-03-03] MEDS: TRAMADOL HCL 50 MG TAB PO PRN ×2 (11:29→21:30)
--- NOTE | 2021-03-03 15:08 | P.PN ---
Subjective Date of Service: 03/03/21 Primary Care Provider: shelter doctor, neurology Dr. Fontana Chief Complaint: TIA Patient has no new complaint. She is waiting for placement. Physical Examination - Vital Signs Temperature: 97.2 F Blood Pressure: 136/60 Pulse: 68 Respirations: 18 Pulse Ox (%): 0 - Physical Exam General: Alert, In no apparent distress HEENT: Mucous membr. 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 She is currently at baseline. CT head no acute CVA. MRI of the brain: no acute CVA. Patient is on Eliquis 2.5 mg p.o. twice daily, folic acid, statin therapy. Dr. Fontana input appreciated. passed bedside dysphagia screen, tolerating diet without issue evaluated by PT -patient needing total assist with transfers. SNF placement. Acute uncomplicated cystitis -pt reports increased urinary frequency over last 2-3 weeks, no dysuria, no foul smell. afebrile -UA suggestive of UTI, urine culture grew Pseudomonas sensitive to Levaquin. -patient to complete 5-7 days treatment. Continue Levaquin. HTN,HLD, GERD, Asthma stable, continue home meds Disposition: Awaiting SNF placement.
[2021-03-03] MEDS: ATORVASTATIN 40 MG TAB PO SCH (20:57)
[2021-03-04] MEDS: PANTOPRAZOLE 40MG TABLET PO SCH (05:48)
[2021-03-04] MEDS: HYDRALAZINE HCL 25 MG TABLET PO SCH ×2 (09:16→13:54)
[2021-03-04] MEDS: LOSARTAN POTASSIUM 50 MG TABLET PO SCH (09:16)
[2021-03-04] MEDS: FUROSEMIDE 20 MG TABLET PO SCH (09:16)
[2021-03-04] MEDS: MELOXICAM 7.5 MG TAB PO SCH (09:16)
[2021-03-04] MEDS: BACLOFEN 10 MG TAB PO SCH (09:17)
[2021-03-04] MEDS: FOLIC ACID 1 MG TABLET PO SCH (09:17)
[2021-03-04] MEDS: APIXABAN 2.5 MG TABLET PO SCH (09:17)
[2021-03-04] MEDS: POTASSIUM CL SA 10 MEQ TAB PO SCH (09:17)
[2021-03-04] MEDS: LABETALOL HCL 100 MG TAB PO SCH (09:17)
[2021-03-04] MEDS: MAGNESIUM OXIDE 400 MG TAB PO SCH (09:17)
[2021-03-04 09:57] VITALS: O2SAT 97
[2021-03-04 13:04] VITALS: TEMP 97
--- NOTE | 2021-03-04 13:31 | P.PN ---
Subjective Date of Service: 03/04/21 Primary Care Provider: senior care doctor, neurology Dr. Fontana Chief Complaint: TIA Patient has no new complaint. Physical Examination - Vital Signs Temperature: 97 F Blood Pressure: 122/60 Pulse: 73 Respirations: 18 Pulse Ox (%): 97 - Physical Exam General: Alert, In no apparent distress HEENT: Mucous membr. 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 She is currently at baseline. CT head no acute CVA. MRI of the brain: no acute CVA. Patient is on Eliquis 2.5 mg p.o. twice daily, folic acid, statin therapy. Patient seen and evaluated by Dr. Fontana She passed bedside dysphagia screen, tolerating diet without issue evaluated by PT -patient needing total assist with transfers. SNF placement. Acute uncomplicated cystitis -pt reports increased urinary frequency over last 2-3 weeks, no dysuria, no foul smell. afebrile -UA suggestive of UTI, urine culture grew Pseudomonas sensitive to Levaquin. -patient to complete 5-7 days treatment. Continue Levaquin. HTN,HLD, GERD, Asthma stable, continue home meds Disposition: Awaiting SNF placement.
--- NOTE | 2021-03-04 16:23 | P.DS ---
Admission Date: 02/27/21 Discharge Date: 03/04/21 Primary Care Provider: [facility]entiary doctor, neurology Dr. Fontana Disposition: TRANSFER TO RETIREMENT Discharge Condition: FAIR Reason for Admission: TIA Brief History of Present Illness: 85-year-old woman with history of hypertension, GERD, asthma, CVA with left- sided hemiplegia was brought to the emergency department for slurred speech, facial weakness. Patient was noted to have facial weakness, difficulty speaking. She has a history of previous MCA stroke affecting her left side. Symptoms resolved by arrival to the ED. Patient was evaluated in the emergency department, labs were unremarkable, CT head brain without contrast demonstrates remote previous MCA territory infarct. Chest x-ray unremarkable, patient admitted for further management. 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 She improved to baseline left spastic hemiparesis. CT head no acute CVA. MRI of the brain: no acute CVA. Patient on Eliquis 2.5 mg p.o. twice daily, folic acid, statin therapy. Patient seen and evaluated by Dr. Fontana She passed bedside dysphagia screen, tolerated diet without issue evaluated by PT -patient needing total assist with transfers. Patient accepted for SNF placement. Acute uncomplicated cystitis -pt reported increased urinary frequency. -UA suggestive of UTI, urine culture grew Pseudomonas sensitive to Levaquin. -patient to complete 5-7 days treatment. HTN,HLD, GERD, Asthma stable, continued home meds. Vital Signs/Physical Exam: Temp Pulse Resp BP Pulse Ox 97 F 73 18 122/60 97 03/04/21 13:33 03/04/21 13:33 03/04/21 13:33 03/04/21 13:33 03/04/21 13:33 General: Alert, In no apparent distress, Oriented x3 HEENT: Mucous membr. moist/pink Neck: JVD not distended Respiratory: Clear to auscultation bilaterally, Normal air movement Cardiovascular: No edema, Regular rate/rhythm, Normal S1 S2 Gastrointestinal: Soft and benign, Non-distended Musculoskeletal: Contractures (Left upper extremity) Neurological: Other (Left spastic hemiparesis.) Laboratory Data at Discharge: WBC Cancelled 03/02/21 05:00 Hgb Cancelled 03/02/21 05:00 Hct Cancelled 03/02/21 05:00 Plt Count Cancelled 03/02/21 05:00 PT 12.4 SECONDS (9.5-12.5) 02/25/21 18:58 INR 1.08 02/25/21 18:58 APTT 28.1 SECONDS (24.3-36.9) 02/25/21 18:58 Sodium Cancelled 03/02/21 05:00 Potassium Cancelled 03/02/21 05:00 BUN Cancelled 03/02/21 05:00 Creatinine Cancelled 03/02/21 05:00 Glucose Cancelled 03/02/21 05:00 Magnesium 2.2 mg/dL (1.8-2.4) 02/27/21 05:21 Total Bilirubin 0.4 mg/dL (0.2-1.0) 02/27/21 05:21 AST 13 U/L (15-37) L 02/27/21 05:21 ALT 23 U/L (12-78) 02/27/21 05:21 Alkaline Phosphatase 47 U/L (45-117) 02/27/21 05:21 Triglycerides Cancelled 03/02/21 05:00 Cholesterol Cancelled 03/02/21 05:00 HDL Cholesterol Cancelled 03/02/21 05:00 Cholesterol/HDL Ratio Cancelled 03/02/21 05:00 Lipase 57 U/L (73-393) L 02/25/21 18:58 Home Medications: Magnesium Oxide [Mag 0X*] 800 mg PO BID tab 11/05/19 Acetaminophen [Tylenol] 650 mg PO Q6HP PRN 02/26/21 Advair 250/50mg 1 puff IH BIDP PRN 02/26/21 Albuterol Sulfate [Ventolin Hfa] 2 puff IH Q6HP PRN 02/26/21 Apixaban [Eliquis *] 1 tab PO BID 02/26/21 Baclofen [Lioresal*] 10 mg PO BID 02/26/21 Benzonatate [Tessalon Perle*] 200 mg PO Q8HP PRN 02/26/21 Cromolyn Sodium [Crolom] 1 drop OP TIDP PRN 02/26/21 Furosemide [Lasix*] 40 mg PO DAILY 02/26/21 Hydralazine [Apresoline*] 50 mg PO TID 02/26/21 Hydrocort Acetate Suppos [Anucort-Hc Suppository*] 25 mg RC Q12HP PRN 02/26/21 Ibuprofen 400 mg PO BIDP PRN 02/26/21 Ipratropium Neb [Atrovent*] 0.5 mg IH Q8HP PRN 02/26/21 Ketoconazole [Nizoral A-D] 1 appl TP SEECOM 02/26/21 Labetalol HCl [Trandate*] 200 mg PO BID 02/26/21 Lidocaine [Aspercreme Lidocaine] 1 each TP DAILYPRN PRN 02/26/21 Losartan Potassium 100 mg PO DAILY 02/26/21 Mag Hydroxide 8% [Milk Of Magnesia*] 30 ml PO DAILYPRN PRN 02/26/21 Meloxicam [Mobic] 15 mg PO DAILY 02/26/21 Menthol [Biofreeze] 1 appl TP Q12HP PRN 02/26/21 Multivit-Min/Iron/Folic/Lutein [Centrum Silver Women Tablet] 1 tab PO DAILY 02/26/21 Omeprazole 20 mg PO DAILY 02/26/21 Potassium Oral Tab [Klor-Con 10 mEq Tab*] 20 meq PO BID 02/26/21 Trazodone [Desyrel*] 50 mg PO BEDTIME PRN PRN 02/26/21 traMADol HCL [Ultram*] 50 mg PO Q8H PRN 02/26/21 Atorvastatin Calcium [Lipitor] 40 mg PO BEDTIME tab 03/04/21 Folic Acid 1 mg PO DAILY #30 tablet 03/04/21 levoFLOXacin [Levaquin] 750 mg PO DAILY #5 tab 03/04/21 New Medications: Folic Acid 1 mg PO DAILY #30 tablet levoFLOXacin [Levaquin] 750 mg PO DAILY #5 tab Diet: AHA Activity: Fall precautions Followup: Yaniv Fontana MD [Primary Care Provider] - (within 2 weeks ) Time spent managing pt's care (in minutes): 36
[2021-03-04 17:29] VITALS: BP 119/56
== END 2021-03-04 18:25 | DRG 69 ==
LOC: ER 18:24 → ERHOLD 21:03 → 2ND 23:08 → OBSVTOIN 02-27 12:03
PROVIDERS: ADMIT Hospitalist; ATTEND Internal Medicine
DX: G45.9 Transient cerebral ischemic attack, unspecified (principal); I69.354 Hemiplegia and hemiparesis following cerebral infarction affecting left non-dominant side; N30.00 Acute cystitis without hematuria; I10 Essential (primary) hypertension; K21.9 Gastro-esophageal reflux disease without esophagitis; E78.5 Hyperlipidemia, unspecified; J45.909 Unspecified asthma, uncomplicated; B96.5 Pseudomonas (aeruginosa) (mallei) (pseudomallei) as the cause of diseases classified elsewhere; R29.706 NIHSS score 6; R47.81 Slurred speech; R20.0 Anesthesia of skin; Z79.01 Long term (current) use of anticoagulants; Z79.899 Other long term (current) drug therapy; Z20.822 Contact with and (suspected) exposure to COVID-19
CPT/HCPCS: 36415; 70450; 70544; 70549; 70553; 71045; 80048; 80053; 81003; 81015; 83690; 83735; 84439; 84443; 84484; 85025; 85610; 85730; 87077; 87086; 87088; 87186; 93005; 93880; 97110; 97162; 97530; 99285; A9577; G0378; J7030; U0003

== ENCOUNTER 2022-03-02 16:01 | Emergency (ER) | payer OTHER ==
--- NOTE | 2022-03-02 16:45 | RAD REPORT ---
EXAM DESCRIPTION: CT - [id number] - 03/02/2022 4:19 pm CLINICAL HISTORY: head injury, neck pain, fall COMPARISON: Brain W/Wo Cont dated 03/01/2021 TECHNIQUE: Axial 5 mm thick images of the head were obtained. Axial 2 mm thick images of the cervic al spine were obtained with sagittal and coronal reconstruction images generated and reviewed. All CT scans are performed using dose optimization technique as appropriate and may include automated exposure control or mA/KV adjustment according to patient size. FINDINGS: No intracranial hemorrhage, mass, edema or acute intracranial finding. No acute cortical b ased infarction seen. No cortical edema or sulcal effacement. Right frontal parietal lobe encephaloma lacia changes are present matching the February 2021 MRI study. Cerebral white matter chronic ischemic ch anges are present. There is an underlying mild for age atrophy. Ventricles are in proportion to the a trophy and encephalomalacia. Mastoid air cells and paranasal sinuses are clear. No globe or orbit abn ormality seen. Cervical bodies are normal in height. No fracture or acute cervical vertebral body finding. There is retrolisthesis of C4 on C5 and C5-6. All disc levels show some degree of height loss. Endplate spurri ng and uncovertebral joint hypertrophy changes are present. Bilateral bony foraminal encroachment pre sent at C4-5 and C5-6. There significant left lateral tilt of the cervical spine which may be part of underlying scoliosis or a positioning artifact within the scanner. Central canal detail is inherent ly limited. No paraspinal mass or hematoma. Dense bilateral carotid calcifications present. IMPRESSION: No hemorrhage, edema or acute intracranial finding. The right cerebral hemisphere enceph alomalacia matches the February 2021 study. Advanced cervical spine degenerative change as detailed. No acute finding.
--- NOTE | 2022-03-02 17:00 | RAD REPORT ---
EXAM DESCRIPTION: RAD - Sacrum And Coccyx - 03/02/2022 4:40 pm CLINICAL HISTORY: PAINfollowing fall COMPARISON: No comparisons FINDINGS: No fracture other or displaced coccyx for sacral segment. No lytic, sclerotic or expansile change. SI joint degenerative changes are present, right greater than left. No acute pubic symphysis finding. No fracture seen in the imaged portions of the bony pelvis. Sacral ala are intact. Lower lazaro mbar degenerative changes are present only partially imaged on this study. IMPRESSION: No acute sacrum or coccyx abnormality seen.
[2022-03-02] MEDS ORDERED: HYDROCODONE/APAP 5/325 MG TAB ONE (17:17)
--- NOTE | 2022-03-02 18:08 | ER ---
Nurse's Notes [facility] Name: Nai Ragland Age: 86 yrs Sex: Female : 1935 Arrival Date: 03/02/2022 Time: 16:02 Bed 4 Private MD: Diagnosis: Fall on same level, unspecified;Contusion of lower back and pelvis-contusion of tailbone;Strain of muscle, fascia and tendon at neck level;Unspecified superficial injury of other part of head, initial encounter Presentation: 03/02 16:02 Chief complaint: EMS states: patient fell at approx 0600 this morning. staff at [place] [id number] was attempting to ambulate patient, when she fell and staff was unable to safely assist her to the floor. EMS was called at the time of the fall, however patient refused transport at that time. Patient complained of increased pain to head, neck and tailbone area since the fall this morning, and EMS was called back to the facility. Patient denies LOC, reports hitting her head and is on Eliquis. Coronavirus screen: At this time, the client does not indicate any symptoms associated with coronavirus-19. Ebola Screen: No symptoms or risks identified at this time. Initial Sepsis Screen: Does the patient meet any 2 criteria? No. Patient's initial sepsis screen is negative. Does the patient have a suspected source of infection? No. Patient's initial sepsis screen is negative. Risk Assessment: Do you want to hurt yourself or someone else? Patient reports no desire to harm self or others. Onset of symptoms was March 02, 2022 at 06:00. 16:02 Method Of Arrival: EMS: [facility] ap3 16:02 Acuity: JT 3 ap3 16:10 Care prior to arrival: None. Mechanism of Injury: Fall from standing position. Trauma ap3 event details: Injury occurred in the [facility], Injury occurred: residential Injury occurred: March 02, 2022 Injury occurred at: 06:00. Activity prior to arrival: None. Triage Assessment: 16:07 General: Appears uncomfortable, Behavior is calm, cooperative. Pain: Complains of pain ap3 in face, buttocks and neck Pain began gradually, 0600. 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 Neuro: Reports headache. Cardiovascular: Patient's skin is warm and dry. Respiratory: Airway is patent Respiratory effort is even, unlabored. Trauma Activation: Alert Physician: ED Physician; Name: ; Notified At: 16:00; Arrived At: 16:01 Physician: General Surgeon; Name: ; Notified At: 16:00; Arrived At: Physician: Radiology; Name: ; Notified At: 16:00; Arrived At: Physician: Respiratory; Name: ; Notified At: 16:00; Arrived At: Physician: Lab; Name: ; Notified At: 16:00; Arrived At: Historical: - Allergies: 16:06 No Known Allergies; ap3 - PMHx: 16:06 Asthma; CVA; Gastroesophageal reflux disease; Hypertension; ap3 - Immunization history:: Client reports receiving the 2nd dose of the Covid vaccine. - Social history:: Smoking status: Patient denies any tobacco usage or history of. - Immunization history: Last tetanus immunization: - up to date. Screenin:08 Abuse screen: Denies threats or abuse. Nutritional screening: No deficits noted. ap3 Tuberculosis screening: No symptoms or risk factors identified. Fall Risk Fall in past 12 months (25 points). Secondary diagnosis (15 points) No IV (0 pts). Ambulatory Aid- None/Bed Rest/Nurse Assist (0 pts). Gait- Normal/Bed Rest/Wheelchair (0 pts) Mental Status- Oriented to own ability (0 pts). Total Brasher Fall Scale indicates High Risk Score (45 or more points). Fall prevention measures have been instituted. Side Rails Up X 2 Placed Close to Nursing Station Frequent Obs/Assessments Occuring As available patient and family educated on Fall Prevention Program and Strategies. Primary Survey: 16:10 NO uncontrolled hemorrhage observed. Breathing/Chest: Spontaneous respiratory effort, ap3 equal unlabored respirations, breath sounds clear bilaterally, regular pattern, symmetrical chest rise and fall. Respiratory effort: spontaneous, unlabored, Respiratory pattern: regular, Chest inspection: symmetrical rise and fall of the chest. Circulation: No external hemorrhage present. Regular and strong central pulse, skin warm/dry/normal color. Hemorrhage: No external hemorrhage noted. Skin temperature: warm. Disability Client is alert. Exposure/Environment: A warming method has been applied: A warm blanket has been provided to the patient. 16:41 Reassessment Alertness and Airway: Awake and alert. The airway is patent. Breathing: tw2 Spontaneous respiratory effort, equal unlabored respirations, breath sounds clear bilaterally, regular pattern with symmetrical chest rise and fall. Respiratory effort Spontaneous Unlabored Respiratory pattern Regular Chest inspection Symmetrical Circulation: Heart tones Present Temperature Warm Dry Disability: Alert. Secondary Survey: 16:40 HEENT: No deficits noted. Gastrointestinal: Abdomen is soft. : No signs and/or tw2 symptoms were reported regarding the genitourinary system. Musculoskeletal: contraction of the left arm, this is pts baseline from previous CVA. Assessment: 16:10 General: Appears in no apparent distress. uncomfortable. ap3 17:50 Reassessment: Patient appears in no apparent distress at this time. No changes from tw2 previously documented assessment. Patient and/or family updated on plan of care and expected duration. Pain level reassessed. 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 pts old brief removed, pt cleaned and placed in new brief at this time. 18:03 Reassessment: [facility] and iw arrange transportation. 18:10 Reassessment: report called to [facility]. They report they have no one available for ap3 transportation and the patients family is currently out of state. 18:37 Reassessment: No changes from previously documented assessment. Patient and/or family ap3 updated on plan of care and expected duration. Pain level reassessed. Vital Signs: 16:02 BP 162 / 62; Pulse 71; Pulse Ox 98% ; Weight 68.49 kg; Height 4 ft. 11 in. (149.86 cm); ap3 16:02 Temp 98.6(TE); tw2 16:42 BP 158 / 72; Pulse 71; Resp 17; Pulse Ox 99% on R/A; tw2 18:01 BP 153 / 68; Pulse 69; Resp 17; Pulse Ox 97% on R/A; tw2 16:02 Body Mass Index 30.50 (68.49 kg, 149.86 cm) ap3 Temo Coma Score: 16:12 Eye Response: spontaneous(4). Verbal Response: oriented(5). Motor Response: obeys ap3 commands(6). Total: 15. 16:42 Eye Response: spontaneous(4). Verbal Response: oriented(5). Motor Response: obeys tw2 commands(6). Total: 15. Trauma Score (Adult): 16:12 Eye Response: spontaneous(1); Verbal Response: oriented(1); Motor Response: obeys ap3 commands(2); Systolic BP: > 89 mm Hg(4); Respiratory Rate: 10 to 29 per min(4); Temo Score: 15; Trauma Score: 12 16:42 Eye Response: spontaneous(1); Verbal Response: oriented(1); Motor Response: obeys tw2 commands(2); Systolic BP: > 89 mm Hg(4); Respiratory Rate: 10 to 29 per min(4); Temo Score: 15; Trauma Score: 12 ED Course: 16:02 Patient arrived in ED. ap3 16:03 Edilberto Vieyra NP is PHCP. pm1 16:03 Flo Franklin MD is Attending Physician. pm1 16:05 Triage completed. ap3 16:09 Arm band placed on right wrist. ap3 16:09 Patient has correct armband on for positive identification. Placed in gown. Bed in low ap3 position. Call light in reach. Side rails up X2. Pulse ox on. NIBP on. Door closed. Noise minimized. Warm blanket given. Pillow given. 16:12 Patient maintains SpO2 saturation greater than 95% on room air. ap3 16:12 Thermoregulation: warm blanket given to patient. ap3 16:21 CT Head C Spine In Process Unspecified. EDMS 16:40 Jeanna Luna, REAGAN is Primary Nurse. tw2 16:42 Sacrum And Coccyx XRAY In Process Unspecified. EDMS 18:11 No provider procedures requiring assistance completed. ap3 18:22 Awaiting transportation. tw2 19:27 role handed off by Alissa Rodriguez, RN em1 19:52 Cleaned of incontinence. kl 20:28 Patient did not have IV access during this emergency room visit. kl Administered Medications: 17:13 Drug: HYDROcodone-acetaminophen 5 mg-325 mg 1 tabs Route: PO; ap3 18:11 Follow up: Response: No adverse reaction; Pain is decreased ap3 Medication: 16:41 VIS not applicable for this client. tw2 Intake: 16:44 PO: 0ml; Total: 0ml. tw2 Outcome: 18:08 Discharge ordered by . pm1 20:27 Discharged to home via ambulance. 20:27 Condition: stable 20:27 Discharge instructions given to patient, Instructed on discharge instructions, follow up and referral plans. Demonstrated understanding of instructions, follow-up care. 20:28 Patient's length of stay in the Emergency Department was greater than 2 hours. awaiting EMS transfer back homePatient's length of stay extended due to 20:29 Patient left the ED. jb4 Signatures: Dispatcher [employer] EDMS Shantel Acosta RN RN Cass Epstein, RN RN Pablo Chang em1 Edilberto Vieyra, [employer] EDUC[employer] TEACHER pm1 Jeanna Luna RN RN tw2 Chavez Moore RN RN jb4 Alissa Rodriguez RN RN ap3
--- NOTE | 2022-03-02 18:08 | EDPHYS ---
Physician Documentation [facility] Name: Nai Ragland Age: 86 yrs Sex: Female : 1935 Arrival Date: 03/02/2022 Time: 16:02 Bed 4 Private MD: ED Physician Flo Franklin HPI: 03/02 16:05 This 86 yrs old Female presents to ER via EMS with complaints of Fall injury, neck pm1 pain, tailbone pain. 16:05 Details of fall: The patient fell from an upright position, while standing, Transfer pm1 from bed to chair with assistance of staff. Onset: The symptoms/episode began/occurred this morning, at 06:00. Associated injuries: The patient sustained injury to the head, pain, to the top of her head that has resolved, coccyx pain, neck pain. Severity of symptoms: in the emergency department the symptoms are actually worse, to her tailbone. No change in pain to neck and her headache has resolved. The patient has not recently seen a physician. 86-year-old female presents to the ER with complaints of fall injury pain to neck and to her tailbone. Onset at 6:00 this morning. Patient was being assisted by nursing staff for a transfer from bed to chair in she fell without being guided to the floor by nursing staff. Patient landed to her buttocks with resulting pain to her tailbone and then she hit her head as she fell backwards. Patient reports headache to the top of her head that has resolved but reports continued neck pain. Patient is on Eliquis. Patient with prior CVA resulting in left-sided deficit. Historical: - Allergies: 16:06 No Known Allergies; ap3 - PMHx: 16:06 Asthma; CVA; Gastroesophageal reflux disease; Hypertension; ap3 - Immunization history:: Client reports receiving the 2nd dose of the Covid vaccine. - Social history:: Smoking status: Patient denies any tobacco usage or history of. - Immunization history: Last tetanus immunization: - up to date. ROS: 16:05 Constitutional: Negative for fever, chills, and weight loss, Cardiovascular: Negative pm1 for chest pain, palpitations, and edema, Respiratory: Negative for shortness of breath, cough, wheezing, and pleuritic chest pain. 16:05 MS/Extremity: Negative for injury and deformity, Skin: Negative for injury, rash, and discoloration. 16:05 Neck: Positive for of the neck, pain. 16:05 Abdomen/GI: Negative for abdominal pain, nausea, vomiting, and diarrhea. 16:05 Back: Positive for pain at rest, of the sacrum. 16:05 Neuro: Positive for headache, of the top of head, that has resolved, Negative for dizziness, loss of consciousness, numbness, tingling, weakness. 16:05 All other systems are negative. Exam: 16:05 Constitutional: This is a well developed, well nourished patient who is awake, alert, pm1 and in no acute distress. Head/Face: Normocephalic, atraumatic. 16:05 Skin: Warm, dry with normal turgor. Normal color with no rashes, no lesions, and no evidence of cellulitis. 16:05 Eyes: Exam is negative for acute changes, Extraocular movements: no acute changes, Conjunctiva: no acute changes, no injection. 16:05 ENT: Exam is negative for acute changes, Mouth: no acute changes, Lips: normal, moist, Oral mucosa: normal, pink and intact, moist. 16:05 Cardiovascular: Exam negative for acute changes, Rate: normal, Rhythm: regular, Pulses: no pulse deficits are appreciated. 16:05 Respiratory: Exam negative for acute changes, respiratory distress, shortness of breath. 16:05 Abdomen/GI: Inspection: abdomen appears normal, Palpation: abdomen is soft and non-tender, in all quadrants. 16:05 Back: vertebral tenderness, is appreciated at sacrum and coccyx. 16:05 Musculoskeletal/extremity: Extremities: grossly normal except: noted in the left arm contracted: 16:05 Neuro: Exam negative for acute changes, Orientation: is normal, Mentation: is normal. Vital Signs: 16:02 BP 162 / 62; Pulse 71; Pulse Ox 98% ; Weight 68.49 kg; Height 4 ft. 11 in. (149.86 cm); ap3 16:02 Temp 98.6(TE); tw2 16:42 BP 158 / 72; Pulse 71; Resp 17; Pulse Ox 99% on R/A; tw2 18:01 BP 153 / 68; Pulse 69; Resp 17; Pulse Ox 97% on R/A; tw2 16:02 Body Mass Index 30.50 (68.49 kg, 149.86 cm) ap3 Newton Coma Score: 16:12 Eye Response: spontaneous(4). Verbal Response: oriented(5). Motor Response: obeys ap3 commands(6). Total: 15. 16:42 Eye Response: spontaneous(4). Verbal Response: oriented(5). Motor Response: obeys tw2 commands(6). Total: 15. Trauma Score (Adult): 16:12 Eye Response: spontaneous(1); Verbal Response: oriented(1); Motor Response: obeys ap3 commands(2); Systolic BP: > 89 mm Hg(4); Respiratory Rate: 10 to 29 per min(4); Temo Score: 15; Trauma Score: 12 16:42 Eye Response: spontaneous(1); Verbal Response: oriented(1); Motor Response: obeys tw2 commands(2); Systolic BP: > 89 mm Hg(4); Respiratory Rate: 10 to 29 per min(4); Newton Score: 15; Trauma Score: 12 MDM: 16:04 Patient medically screened. [facility] 17:03 Data reviewed: vital signs. Data interpreted: Pulse oximetry: on room air is 99 %. pm1 Interpretation: normal. 17:07 ED course: Reported radiology reports to the patient. Patient did not report right hip pm1 pain but mentioned it on also reporting her CT head, neck and sacrum/coccyx report. Moved patient's right leg without any difficulty and patient reports minimal amount of pain. Offered to patient x-ray of right hip but she refused. Will give patient her pain medication and reevaluate her right hip. Patient was not given pain medicine initially due to head injury with fall and did not want to mask any mental status changes with narcotic if brain injury present. 17:07 Counseling: I had a detailed discussion with the patient and/or guardian regarding: pm1 radiology results. 18:03 ED course: Reassessed patient's right hip. Patient reports pain only present with pm1 palpation but no pain with passive or active moving of her right hip. Patient still does not want x-ray of right hip. Will discharge patient back to intermediate. 18:05 Counseling: I had a detailed discussion with the patient and/or guardian regarding: the pm1 historical points, exam findings, and any diagnostic results supporting the discharge/admit diagnosis, the need for outpatient follow up, to return to the emergency department if symptoms worsen or persist or if there are any questions or concerns that arise at home. 03/02 16:05 Order name: CT Head C Spine; Complete Time: 16:54 pm1 03/02 16:05 Order name: Sacrum And Coccyx XRAY; Complete Time: 17:02 pm1 Administered Medications: 17:13 Drug: HYDROcodone-acetaminophen 5 mg-325 mg 1 tabs Route: PO; ap3 18:11 Follow up: Response: No adverse reaction; Pain is decreased ap3 Disposition Summary: 03/02/22 18:08 Discharge Ordered Location: Home pm1 Problem: new pm1 Symptoms: have improved pm1 Condition: Stable pm1 Diagnosis - Fall on same level, unspecified pm1 - Contusion of lower back and pelvis - contusion of tailbone pm1 - Strain of muscle, fascia and tendon at neck level pm1 - Unspecified superficial injury of other part of head, initial encounter pm1 Followup: pm1 - With: Emergency Department - When: As needed - Reason: Worsening of condition Followup: pm1 - With: Private Physician - When: 2 - 3 days - Reason: Recheck today's complaints, Continuance of care, Re-evaluation by your physician Discharge Instructions: - Discharge Summary Sheet pm1 - Head Injury, Adult pm1 - Fall Prevention in the Home, Adult pm1 - Tailbone Injury pm1 - Muscle Strain pm1 Forms: - Medication Reconciliation Form pm1 - Thank You Letter pm1 - Antibiotic Education pm1 - Prescription Opioid Use pm1 - SBAR form mw2 Signatures: Dispatcher [employer] EDFlo Blair MD MD cha Marinas, Patrick, NP SENIOR GAME DESIGNER pm1 Alissa Rodriguez RN RN ap3
[2022-03-02 20:54] VITALS: TEMP 98.6
[2022-03-02 21:10] VITALS: BP 153/68; O2SAT 97
== END 2022-03-02 20:29 | disposition home or self-care (01) ==
LOC: ER 16:01
DX: S16.1XXA Strain of muscle, fascia and tendon at neck level, initial encounter (principal); S00.80XA Unspecified superficial injury of other part of head, initial encounter; S30.0XXA Contusion of lower back and pelvis, initial encounter; W18.30XA Fall on same level, unspecified, initial encounter; I10 Essential (primary) hypertension; Z86.73 Personal history of transient ischemic attack (TIA), and cerebral infarction without residual deficits; Z79.01 Long term (current) use of anticoagulants
CPT/HCPCS: 70450; 72125; 72220; 99284

== ENCOUNTER 2022-07-20 18:06 | Emergency (ER) | payer OTHER ==
--- OUTSIDE RECORDS SUMMARY | 2022-07-20 18:14 | XMS REPORT | Continuity of Care Document ---
:1935 Author Organization [facility] t Address [address] [place] [address] Care Team Providers Name Role Phone Asked, No Pcp Primary Care Physician Unavailable [id number] Attending Clinician Unavailable Yaniv Fontana Attending Clinician Rick Randhawa Attending Clinician [id number] Admitting Clinician Unavailable Bridget Hernandez Admitting Clinician Payers Payer Name Policy Type Policy Number Effective Date Expiration Date Chase minorgary [facility] 53 [id number] [facility] Problems Condition Condition Condition Status Onset Resolution Last Treating Co mments Source Name Details Category Date Date Treatment Clinician Date ACUTE ACUTE Diagnosis Active 2019-09-23 Mem oria ISCHEMIC ISCHEMIC 09-15 09:05:00 l RIGHT MCA RIGHT MCA 00:00: Vahid clark STROKE STROKE 00 Active 09/15/2019 [facility] CVA CVA Diagnosis Active 2019-09-15 Mem oria Active 09-15 13:43:00 l 09/15/2019 00:00: Luciano perez [address] LUX LUX Diagnosis Active 2019-09-15 Memoria BILLING BILLING 09-15 13:32:00 l Active 00:00: Ottoniel 09/15/2019 00 [facility] [phone] Primary Problem 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, [facility] right [facility] 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 04:38:52 l (disorder) (disorder) He rmann Active Problem 05/28/2022 [facility] 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) Active Problem 05/28/2022 [facility] Hypertensi Hypertens Problem Active 2022-05-28 Memoria ve will 04:38:52 l disorder, disorder, Herm eduardo systemic systemic arterial arterial (disorder) (disorder) Active Problem 05/28/2022 [facility] Spasticity Spasticit Problem Active 2022-05-28 Memoria (finding) y 04:38:52 l (finding) Ottoniel Active Problem 05/28/2022 [facility] CEREB CEREB Diagnosis Active 2019-09-23 Mem oria INFRC D/T INFRC D/T 09:05:00 l UNSP OCCLS UNSP OCCLS He rmann OR STENOS OR STENOS OF OF Active [facility] Allergies, Adverse Reactions, Alerts This patient has no known allergies or adverse reactions. Social History Social Habit Start Date Stop Date Quantity Comments Source History of Tobacco [facility] Use [facility] Social History 2019-09-16 2019-09-16 [facility] 09:43:21 09:43:21 Sex Ass[birth year] [facility] 00:00:00 00:00:00 Smoking Status Start Date Stop Date Source Tobacco smoking consumption unknown [facility] Tobacco smoking status [facility] Medications Ordered Filled Start Stop Current Ordering Indication Dosage Frequency Signature Comments Components Source Medication Medication Date Date Medication? Clinician (SIG) Name Name meloxicam Yes 15 mg = 1 Mem oria 15 mg oral 3-24 tab, PO, l tablet 14:19: Daily, # Newcomb 00 30 tab, 0 Refill(s) non-formula Yes stool Memor ia ry 3-24 softner, l 14:19: Refill(s) Ottoniel 00 0 meloxicam Yes 15 mg = 1 Mem oria 15 mg oral 3-24 tab, PO, l tablet 14:19: Daily, # Newcomb 00 30 tab, 0 Refill(s) non-formula Yes stool Memor ia ry 3-24 softner, l 14:19: Refill(s) Ottoniel 00 0 Melatonin 3 Yes 3 mg = 1 Me moria MG Extended 3-24 tab, PO, l Release 14:18: Bedtime, Luciano n Tablet 00 PRN for insomnia, # 14 tab, 0 Refill(s) melatonin 3 Yes 3 mg = 1 Me moria mg oral 3-24 tab, PO, l tablet 14:18: Bedtime, Ottoniel 00 PRN for insomnia, # 14 tab, 0 Refill(s) Melatonin 3 Yes 3 mg = 1 Me moria MG Extended 3-24 tab, PO, l Release 14:18: Bedtime, Luciano n Tablet 00 PRN for insomnia, # 14 tab, 0 Refill(s) melatonin 3 Yes 3 mg = 1 Me moria mg oral 3-24 tab, PO, l tablet 14:18: Bedtime, Newcomb 00 PRN for insomnia, # 14 tab, 0 Refill(s) Folic Acid Yes 1 mg = 1 Mem oria 1 MG Oral 3-24 tab, PO, l Tablet 14:17: Daily, # Newcomb 00 30 tab, 0 Refill(s) gabapentin Yes 100 mg = 1 M emoria 100 MG Oral 3-24 cap, PO, l Capsule 14:17: TID, # 90 Crystal nn 00 cap, 1 Refill(s) Hydralazine Yes 50 mg = 1 M emoria Hydrochlori 3-24 tab, PO, l de 50 MG 14:17: TID, # 90 Herm eduardo Oral Tablet 00 tab, 3 Refill(s) Ketoconazol Yes 1 appl, Mem oria e 20 MG/ML 3-24 TOP, l Medicated 14:17: 2x/Wk, Luciano n Shampoo 00 separate doses by at least 3 days, # 120 mL, 1 Refill(s) folic acid Yes 1 mg = 1 Mem oria 1 mg oral 3-24 tab, PO, l tablet 14:17: Daily, # Ottoniel 00 30 tab, 0 Refill(s) gabapentin Yes 100 mg = 1 M emoria 100 mg oral 3-24 cap, PO, l capsule 14:17: TID, # 90 Crystal nn 00 cap, 1 Refill(s) hydrALAZINE 2022-0 Yes 50 mg = 1 M emoria 50 mg oral 3-24 tab, PO, l tablet 14:17: TID, # 90 Luciano n 00 tab, 3 Refill(s) ketoconazol 2-0 Yes 1 appl, Mem oria e topical 3-24 TOP, l 2% shampoo 14:17: 2x/Wk, Crystal nn 00 separate doses by at least 3 days, # 120 mL, 1 Refill(s) Folic Acid 2022-0 Yes 1 mg = 1 Mem oria 1 MG Oral 3-24 tab, PO, l Tablet 14:17: Daily, # Ottoniel 00 30 tab, 0 Refill(s) gabapentin 2-0 Yes 100 mg = 1 M emoria 100 MG Oral 3-24 cap, PO, l Capsule 14:17: TID, # 90 Crystal nn 00 cap, 1 Refill(s) Hydralazine 2-0 Yes 50 mg = 1 M emoria Hydrochlori 3-24 tab, PO, l de 50 MG 14:17: TID, # 90 Herm eduardo Oral Tablet 00 tab, 3 Refill(s) Ketoconazol 2-0 Yes 1 appl, Mem oria e 20 MG/ML 3-24 TOP, l Medicated 14:17: 2x/Wk, Luciano n Shampoo 00 separate doses by at least 3 days, # 120 mL, 1 Refill(s) folic acid 2022-0 Yes 1 mg = 1 Mem oria 1 mg oral 3-24 tab, PO, l tablet 14:17: Daily, # Ottoniel 00 30 tab, 0 Refill(s) gabapentin 2022-0 Yes 100 mg = 1 M emoria 100 mg oral 3-24 cap, PO, l capsule 14:17: TID, # 90 Crystal nn 00 cap, 1 Refill(s) hydrALAZINE 2022-0 Yes 50 mg = 1 M emoria 50 mg oral 3-24 tab, PO, l tablet 14:17: TID, # 90 Luciano n 00 tab, 3 Refill(s) ketoconazol 2-0 Yes 1 appl, Mem oria e topical 3-24 TOP, l 2% shampoo 14:17: 2x/Wk, Crystal nn separate doses by at least 3 days, # 120 mL, 1 Refill(s) diazepam 5 2021-0 Yes 0 Memoria mg oral 3-24 Refill(s) l tablet 14:16: Newcomb diazepam 5 0 Yes 0 Memoria mg oral 3-24 Refill(s) l tablet 14:16: Ottoniel Betamethaso 2021-0 Yes 1 appl, Mem oria ne 0.5 3-24 TOP, BID, l MG/ML / 14:15: # 15 gm, 0 Herm eduardo Clotrimazol 00 Refill(s) e 10 MG/ML Topical Cream betamethaso 0 Yes 1 appl, Mem oria ne-clotrima 3-24 TOP, BID, l zole 14:15: # 15 gm, 0 Newcomb topical 00 Refill(s) 0.05%-1% cream Betamethaso 0 Yes 1 appl, Mem oria ne 0.5 3-24 TOP, BID, l MG/ML / 14:15: # 15 gm, 0 Herm eduardo Clotrimazol 00 Refill(s) e 10 MG/ML Topical Cream betamethaso 0 Yes 1 appl, Mem oria ne-clotrima 3-24 TOP, BID, l zole 14:15: # 15 gm, 0 Newcomb topical 00 Refill(s) 0.05%-1% cream Centrum 0 Yes PO, Daily, Hector imtiaz Silver 3-24 0 l Women's 14:14: Refill(s) Crystal nn Centrum 2021-0 Yes PO, Daily, Hector imtiaz Silver 3-24 0 l Women's 14:14: Refill(s) Crystal nn Bupivicaine Bupivicaine No 2.5mg [facility] [place] 1-18 [facility] 00:00: - [facility] Kenalog Kenalog No 40mg Common (Triamcinol (Triamcinol 1-18 S pirit one) one) 00:00: - [facility] Bupivicaine Bupivicaine No 2.5mg [facility] [place] 1-18 Spirit 00:00: - [facility] Kenalog Kenalog 0 No 40mg Common (Triamcinol (Triamcinol 1-18 S pirit one) one) 00:00: - [facility] Bupivicaine Bupivicaine 2020-0 No 2.5mg Common [place] 7-13 Spirit 00:00: - [facility] Kenalog Kenalog 2020-0 No 40mg Common (Triamcinol (Triamcinol 7-13 S pirit one) one) 00:00: - [facility] Bupivicaine Bupivicaine 2020-0 No 2.5mg Common [place] 7-13 [facility] 00:00: - [facility] Kenalog 2020-0 No 40mg Common (Triamcinol (Triamcinol 7-13 S pirit one) one) 00:00: - [facility] baclofen 10 2020-0 Yes 10 mg = 1 M emoria mg oral 7-02 tab, PO, l tablet 15:23: BID, # 60 Luciano n 00 tab, 3 Refill(s), Pharmacy: [facility], 149.86, cm, 09/23/20 10:44:00 HOTEL SERVER, Height, 70, kg, 10/14/20 9:23:00 HOTEL SERVER, Weight baclofen 10 2020-0 Yes 10 mg = 1 M emoria mg oral 7-02 tab, PO, l tablet 15:23: BID, # 60 Luciano n 00 tab, 3 Refill(s), Pharmacy: [facility], 149.86, cm, 09/23/20 10:44:00 HOTEL SERVER, Height, 70, kg, 10/14/20 9:23:00 HOTEL SERVER, Weight Bupivicaine Bupivicaine 2020-0 No 2.5mg [facility] [place] 3-23 Spirit 00:00: - [facility] Shannan Kenalog 0 No 40mg Common (Triamcinol (Triamcinol 3-23 S pirit one) one) 00:00: - [facility] Bupivicaine Bupivicaine 2021-0 No 2.5mg Common [place] 3-23 Spirit 00:00: - [facility] Kenalog Kenalog 0 No 40mg Common (Triamcinol (Triamcinol 3-23 S pirit one) one) 00:00: - [facility] Kenalog Kenalog 2019-08 No 40mg Common (Triamcinol (Triamcinol 2-15 S pirit one) one) 00:00: - [facility] Bupivicaine Bupivicaine 2019-08 No 2.5mg Common [place] 2-15 Spirit 00:00: - [facility] Kenalog Kenalog 2019-08 No 40mg Common (Triamcinol (Triamcinol 2-15 S pirit one) one) 00:00: - [facility] Bupivicaine Bupivicaine 2019-08 No 2.5mg [facility] [place] 2-15 Spirit 00:00: - [facility] Baclofen 2019-08 Yes 10 mg, PO, Mem [...] Oxide 1-12 PO, 0 l 16:08: Refill(s) omeprazole 2019-08 Yes 20 mg, PO, M emoria 1-12 Daily, 0 l 16:08: Refill(s) furosemide 2019-08 Yes 40 mg, PO, M emoria 1-12 Daily, 0 l 16:08: Refill(s) losartan 2019-08 Yes PO, Daily, Mem oria 1-12 0 l 16:08: Refill(s) Eliquis 2019-08 Yes PO, 0 Memoria 1-12 Refill(s) l 16:08: Baclofen 2019-08 Yes 10 mg, PO, Mem [...] l 16:08: gabapentin 2019-08 Yes 100 mg, Hcetor imtiaz 1-12 PO, 0 l 16:08: Refill(s) Magnesium 2019-08 Yes 400 mg, Memor ia Oxide 1-12 PO, 0 l 16:08: Refill(s) omeprazole 2019-08 Yes 20 mg, PO, M emoria 1-12 Daily, 0 l 16:08: Refill(s) furosemide 2019-08 Yes 40 mg, PO, M emoria 1-12 Daily, 0 l 16:08: Refill(s) losartan 2019-08 Yes PO, Daily, Mem oria 1-12 0 l 16:08: Refill(s) Eliquis 2019-08 Yes PO, 0 Memoria 1-12 Refill(s) l 16:08: Bupivicaine Bupivicaine 2019-0 No 4mL [facility] [place] 7-20 Spirit 00:00: - [facility] Kenalog Kenalog 2019-0 No 40mg Common (Triamcinol (Triamcinol 7-20 S pirit one) one) 00:00: - [facility] Bupivicaine Bupivicaine 2019-0 No 4mL Common [place] 7-20 Spirit 00:00: - [facility] Kenalog Kenalog 2019-0 No 40mg Common (Triamcinol (Triamcinol 7-20 S pirit one) one) 00:00: - [facility] remove 2019-0 No Notes: Memoria patch 2-22 Remove l 11:00: patch 12 Newcomb 00 hours after applicatio n each day. remove 0 No Notes: Memoria patch 2-22 Remove l [...] 4-6, Patch Start [Lidoderm] date: 09/26/19 13:46:00 HOTEL SERVER, Duration: 30 day, Stop date: 10/26/19 13:45:00 CDT, Remove after 12 hours Lidocaine 0 No 1 patch, Hector imtiaz Hydrochlori 2-21 Route: l de 0.05 19:46: TOP, Q12H, Herm eduardo MG/MG 00 PRN Pain Transdermal Score 4-6, Patch Start [Lidoderm] date: 09/26/19 13:46:00 HOTEL SERVER, Duration: 30 day, Stop date: 10/26/19 13:45:00 CDT, Remove after 12 hours Aspirin 81 2020-0 Yes 81 mg = 1 Me moria MG Enteric 2-21 tab, PO, l Coated 15:05: Daily, 0 Newcomb Tablet 00 Refill(s) atorvastati 2020-0 Yes 80 mg = 1 M emoria n 80 mg 2-21 tab, PO, l oral tablet 15:05: Bedtime, 0 Ottoniel 00 Refill(s) clopidogrel 2020-0 Yes 75 mg = 1 M emoria 75 mg oral 2-21 tab, PO, l tablet 15:05: Daily, 0 Newcomb 00 Refill(s) tamsulosin 2020-0 Yes 0.4 mg = 1 M emoria 0.4 mg oral 2-21 cap, PO, l capsule 15:05: After Newcomb 00 Dinner, 0 Refill(s) melatonin 3 2020-0 Yes 3 mg = 1 Me moria mg oral 2-21 tab, PO, l tablet 15:05: Bedtime, 0 Crystal nn 00 Refill(s) Albuterol 2020-0 Yes 3 mL, NEB, Me moria 0.833 MG/ML 2-21 RTID, PRN l / 15:05: Respirator Ottoniel Ipratropium 00 y Pathway, Dougherty 0 0.167 MG/ML Refill(s) Inhalant Solution [DuoNeb] Budesonide 2020-0 Yes 2 Memoria 0.16 2-21 inhalation l MG/ACTUAT / 15:05: , Luciano n formoterol 00 INHALATION fumarate , RBID, 0 0.0045 Refill(s) MG/ACTUAT Metered Dose Inhaler labetalol 2020-0 Yes 200 mg = 1 Me moria 200 mg oral 2-21 tab, PO, l tablet 15:05: Q8H, 0 Newcomb 00 Refill(s) Aspirin 81 2020-0 Yes 81 mg = 1 Me moria MG Enteric 2-21 tab, PO, l Coated 15:05: Daily, 0 Newcomb Tablet 00 Refill(s) atorvastati 2020-0 Yes 80 mg = 1 M emoria n 80 mg 2-21 tab, PO, l oral tablet 15:05: Bedtime, 0 Newcomb 00 Refill(s) clopidogrel 2020-0 Yes 75 mg = 1 M emoria 75 mg oral 2-21 tab, PO, l tablet 15:05: Daily, 0 Newcomb 00 Refill(s) tamsulosin 2020-0 Yes 0.4 mg = 1 M emoria 0.4 mg oral 2-21 cap, PO, l capsule 15:05: After Newcomb 00 Dinner, 0 Refill(s) melatonin 3 2020-0 Yes 3 mg = 1 Me moria mg oral 2-21 tab, PO, l tablet 15:05: Bedtime, 0 Crystal nn 00 Refill(s) Albuterol 2020-0 Yes 3 mL, NEB, Me moria 0.833 MG/ML 2-21 RTID, PRN l / 15:05: Respirator Ottoniel Ipratropium 00 y Pathway, Dougherty 0 0.167 MG/ML Refill(s) Inhalant Solution [DuoNeb] Budesonide 2020-0 Yes 2 Memoria 0.16 2-21 inhalation l MG/ACTUAT / 15:05: , Luciano n formoterol 00 INHALATION fumarate , RBID, 0 0.0045 Refill(s) MG/ACTUAT Metered Dose Inhaler labetalol 2019-0 Yes 200 mg = 1 Me moria 200 mg oral 2-21 tab, PO, l tablet 15:05: Q8H, 0 Ottoniel 00 Refill(s) budesonide- 2019-0 No Notes: Hector imtiaz formoterol 2-21 (Same as: l 160 mcg-4.5 14:16: Symbicort) Newcomb mcg/inh 00 WASTE: inhalation Aerosol - aerosol Return to with Pharmacy adapter budesonide- 2020-0 No Notes: Hector imtiaz formoterol 2-21 (Same as: l 160 mcg-4.5 14:16: Symbicort) Ottonile mcg/inh 00 WASTE: inhalation Aerosol - aerosol Return to with Pharmacy adapter Mucinex 2019-0 No Notes: Memoria 2-21 (Same as: l 03:00: Guaifenesi Ottoniel 00 n LA, Humibid LA, Mucinex) "Do Not Crush" Take medication with plenty of water. Guanfacine 2020-0 No 1 mg, Memori a 2-21 Route: PO, l 03:00: Drug form: Newcomb 00 TAB, Bedtime, Dosing Weight 68.182, kg, Start date: 09/25/19 21:00:00 HOTEL SERVER, Duration: 30 day, Stop date: 10/24/19 21:00:00 CDT Mucinex 2019-0 No Notes: Memoria 2-21 (Same as: l 03:00: Guaifenesi Ottoniel 00 n LA, Humibid LA, Mucinex) "Do Not Crush" Take medication with plenty of water. Guanfacine No 1 mg, Memori a 2-21 Route: PO, l 03:00: Drug form: Newcomb 00 TAB, Bedtime, Dosing Weight 68.182, kg, Start date: 09/25/19 21:00:00 HOTEL SERVER, Duration: 30 day, Stop date: 10/24/19 21:00:00 CDT Advair HFA 2020-0 No 2 puff, Hector imtiaz 115 mcg-21 2-20 Route: l mcg/inh 23:00: INHALATION Herm eduardo inhalation 00 , Dosing aerosol Weight with 68.182, adapter kg, BID, Start date: 09/25/19 17:00:00 HOTEL SERVER, Duration: 30 day, Stop date: 10/25/19 9:00:00 CDT Advair HFA 2020-0 No 2 puff, Hector imtiaz 115 mcg-21 2-20 Route: l mcg/inh 23:00: INHALATION Herm eduardo inhalation 00 , Dosing aerosol Weight with 68.182, adapter kg, BID, Start date: 09/25/19 17:00:00 HOTEL SERVER, Duration: 30 day, Stop date: 10/25/19 9:00:00 CDT Albuterol 0 No Notes: Memori a 0.833 MG/ML 2-20 (Same as: l / 17:00: Duoneb) Newcomb Ipratropium 00 Dougherty 0.167 MG/ML Inhalant Solution [DuoNeb] Albuterol 0 No Notes: Memori a 0.833 MG/ML 2-20 (Same as: l / 17:00: Duoneb) Ottoniel Ipratropium 00 Dougherty 0.167 MG/ML Inhalant Solution [DuoNeb] Aspirin 81 0 No Notes: Memor ia MG Enteric 2-20 Take with l Coated 16:00: food. Ottoniel Tablet 00 Potassium 2020-0 No Notes: Memori a Chloride 2-20 (Same as: l 1.33 MEQ/ML 16:00: Potassium H ermann Oral 00 Chloride) Solution Aspirin 81 2019-0 No Notes: Memor ia MG Enteric 2-20 Take with l Coated 16:00: food. Ottoniel Tablet 00 Potassium 2019-0 No Notes: Memori a Chloride 2-20 (Same as: l 1.33 MEQ/ML 16:00: Potassium H ermann Oral 00 Chloride) Solution Magnesium No Notes: Memori a Sulfate 2-20 WASTE: F/P l 14:11: - Sink; E Newcomb 00 - Municipal Trash Bin Magnesium No Notes: Memori a Sulfate 2-20 WASTE: F/P l 14:11: - Sink; E Newcomb 00 - Municipal Trash Bin Plavix No Notes: Memoria 2-19 (Same As: l 20:29: Plavix) Newcomb 00 Plavix No Notes: Memoria 2-19 (Same As: l 20:29: Plavix) Ottoniel Albuterol No Notes: Memori a 0.833 MG/ML 2-19 (Same as: l / 20:27: Duoneb) Newcomb Ipratropium 00 Dougherty 0.167 MG/ML Inhalant Solution [DuoNeb] Albuterol No Notes: Memori a 0.833 MG/ML 2-19 (Same as: l / 20:27: Duoneb) Newcomb Ipratropium 00 Dougherty 0.167 MG/ML Inhalant Solution [DuoNeb] Labetalol No Notes: Memori a 2-18 With food. l 23:40: (Same as:Trandat e, Normodyne) Labetalol No Notes: Memori a 2-18 With food. l 23:40: (Same as:Trandat e, Normodyne) Docusate 2019-0 No Notes: Memoria Sodium 50 2-18 (Same as l MG / 15:00: Senokot-S) Newcomb sennosides, 00 Equiv. to [facility] 8.6 MG Nikki-Colac Oral Tablet e. Docusate 0 No Notes: Memoria Sodium 50 2-18 (Same as l MG / 15:00: Senokot-S) Newcomb sennosides, 00 Equiv. to [facility] 8.6 MG Nikki-Colac Oral Tablet e. magnesium No Notes: Memori a citrate 2-17 (Same [...] 00 TAB, Q8H, Start date: 09/21/19 16:00:00 HOTEL SERVER, Duration: 30 day, Stop date: 10/21/19 8:00:00 CDT, 0 Cardizem 2020-0 No 60 mg, Memoria 2-16 Route: PO, l 22:00: Drug form: Ottoniel 00 TAB, Q8H, Start date: 09/21/19 16:00:00 HOTEL SERVER, Duration: 30 day, Stop date: 10/21/19 8:00:00 CDT, 0 Coreg 2020-0 No 25 mg, 1 Memoria 2-16 tab, l 20:00: Route: PO, Drug form: TAB, Q12H, Dosing Weight 68.182, kg, Start date: 09/21/19 14:00:00 HOTEL SERVER, Duration: 30 day, Stop date: 10/21/19 9:00:00 CDT, 0 Coreg 2020-0 No 25 mg, 1 Memoria 2-16 tab, l 20:00: Route: PO, Drug form: TAB, Q12H, Dosing Weight 68.182, kg, Start date: 09/21/19 14:00:00 HOTEL SERVER, Duration: 30 day, Stop date: 10/21/19 9:00:00 CDT, 0 Labetalol 2020-0 No 20 mg, 4 Hector imtiaz 2-16 mL, Route: l 18:10: IV, Drug form: INJ, Q6H, Dosing Weight 68.182, kg, PRN Hypertensi on, Start date: 09/21/19 12:10:00 HOTEL SERVER, Duration: 30 day, Stop date: 10/21/19 12:09:00 CDT, 0 Hydralazine 2020-0 No Notes: Hector imtiaz 2-16 (Same as: l 18:10: Apresoline Newcomb 00 ) Push over 5 minutes Labetalol 2020-0 No 20 mg, 4 Hector imtiaz 2-16 mL, Route: l 18:10: IV, Drug Newcomb 00 form: INJ, Q6H, Dosing Weight 68.182, kg, PRN Hypertensi on, Start date: 09/21/19 12:10:00 HOTEL SERVER, Duration: 30 day, Stop date: 10/21/19 12:09:00 CDT, 0 Hydralazine 2020-0 No Notes: Hector imtiaz 2-16 (Same as: l 18:10: Apresoline Newcomb 00 ) Push over 5 minutes Labetalol 2020-0 No 10 mg, 2 Hector imtiaz 2-16 mL, Route: l 18:07: IV, Drug Newcomb 00 form: INJ, ONCE, Dosing Weight 68.182, kg, Start date: 09/21/19 12:07:00 HOTEL SERVER, Stop date: 09/21/19 12:07:00 HOTEL SERVER, 0 Labetalol 2020-0 No 10 mg, 2 Hector imtiaz 2-16 mL, Route: l 18:07: IV, Drug Newcomb 00 form: INJ, ONCE, Dosing Weight 68.182, kg, Start date: 09/21/19 12:07:00 HOTEL SERVER, Stop date: 09/21/19 12:07:00 HOTEL SERVER, 0 Diltiazem 2020-0 No 120 mg, Memor ia 2-16 Route: PO, l 15:00: Drug form: Newcomb 00 ERCAP, Daily, Dosing Weight 68.182, kg, Start date: 09/21/19 9:00:00 HOTEL SERVER, Duration: 30 day, Stop date: 10/20/19 9:00:00 CDT Diltiazem 2020-0 No 120 mg, Memor ia 2-16 Route: PO, l 15:00: Drug form: Newcomb 00 ERCAP, Daily, Dosing Weight 68.182, kg, Start date: 09/21/19 9:00:00 HOTEL SERVER, Duration: 30 day, Stop date: 10/20/19 9:00:00 CDT Cardizem 2020-0 No Notes: Memoria 2-16 (Same as: l 14:20: Cardizem) Newcomb 00 Before meals Cardizem 2020-0 No Notes: Memoria 2-16 (Same as: l 14:20: Cardizem) Newcomb 00 Before meals Potassium 2020-0 No Notes: Memori a Chloride 2-15 (Same as: l 14:: K-Dur ) Ottoniel 00 "Do Not Crush" Give with food and full glass of water For patients unable to swallow tablet, dissolve in one half glass of water. Allow about 2 minutes for the tablets to disintegra te. Stir before giving to prepare slurry and administer . Please exclude Patient s with feeding tube less than 14 Serbian (Dobhoff, J-tube etc) and pediatric and patients. Potassium 2020-0 No Notes: Memori a Chloride 2-15 (Same as: l : K-Dur ) Ottoniel 00 "Do Not Crush" Give with food and full glass of water For patients unable to swallow tablet, dissolve in one half glass of water. Allow about 2 minutes for the tablets to disintegra te. Stir before giving to prepare slurry and administer . Please exclude Patient s with feeding tube less than 14 Serbian (Dobhoff, J-tube etc) and pediatric and patients. Potassium 2020-0 No 40 mEq, 2 Mem oria Chloride 2-14 tab, l 1.33 MEQ/ML 20:00: Route: PO, Ottoniel Oral 00 Drug form: Solution ERTAB, ONCE, Dosing Weight 68.182, kg, Start date: 09/19/19 14:00:00 HOTEL SERVER, Stop date: 09/19/19 14:00:00 HOTEL SERVER, 0 Potassium 2020-0 No 40 mEq, 2 Mem oria Chloride 2-14 tab, l 1.33 MEQ/ML 20:00: Route: PO, Newcomb Oral 00 Drug form: Solution ERTAB, ONCE, Dosing Weight 68.182, kg, Start date: 09/19/19 14:00:00 HOTEL SERVER, Stop date: 09/19/19 14:00:00 HOTEL SERVER, 0 valsartan 2020-0 No Notes: Memori a 2-14 Same as l 15:00: Diovan Ottoniel 00 valsartan 2020-0 No Notes: Memori a 2-14 Same as l 15:00: Diovan Newcomb 00 Potassium 2020-0 Yes 40 mEq, 2 Mem oria Chloride 2-14 tab, l 1.33 MEQ/ML 12:42: Route: PO, Ottoniel Oral 00 Drug form: Solution ERTAB, ONCE, Dosing Weight 68.182, kg, Start date: 09/19/19 6:42:00 HOTEL SERVER, Stop date: 09/19/19 6:42:00 HOTEL SERVER, 0 Potassium 2020-0 Yes 40 mEq, 2 Mem oria Chloride 2-14 tab, l 1.33 MEQ/ML 12:42: Route: PO, Ottoniel Oral 00 Drug form: Solution ERTAB, ONCE, Dosing Weight 68.182, kg, Start date: 09/19/19 6:42:00 HOTEL SERVER, Stop date: 09/19/19 6:42:00 HOTEL SERVER, 0 valsartan 2020-0 No Notes: Memori a 2-13 Same as l 23:59: Diovan Ottoniel 00 valsartan 2020-0 No Notes: Memori a 2-13 Same as l 23:59: Diovan Newcomb 00 Flomax 2020-0 No Notes: Memoria 2-13 (Same As: l 23:00: Flomax) Newcomb 00 "Do Not Crush" Flomax 2020-0 No Notes: Memoria 2-13 (Same As: l 23:00: Flomax) Newcomb 00 "Do Not Crush" Sodium 2020-0 No 1,000 mL, Memori a Chloride 2-13 Rate: 50 l 0.9% IV 21:51: ml/hr, Ottoniel 1,000 mL 00 Infuse over: 20 hr, Route: IV, Dosing Weight 68.182 kg, Total Volume: 1,000, Start date: 09/18/19 15:51:00 HOTEL SERVER, Duration: 30 day, Stop date: 10/18/19 15:50:00 CDT, 1.68, m2, 0 Sodium 2020-0 No 1,000 mL, Memori a Chloride 2-13 Rate: 50 l 0.9% IV 21:51: ml/hr, Ottoniel 1,000 mL 00 Infuse over: 20 hr, Route: IV, Dosing Weight 68.182 kg, Total Volume: 1,000, Start date: 09/18/19 15:51:00 H[employer]EL SERVER, Duration: 30 day, Stop date: 10/18/19 15:50:00 CDT, 1.68, m2, 0 valsartan No Notes: Memori a 2-13 Same as l 15:00: Diovan Ottoniel 00 Potassium No Notes: Memori a Chloride 2-13 (Same as: l 1.33 MEQ/ML 15:00: Potassium H ermann Oral 00 Chloride) Solution valsartan No Notes: Memori a 2-13 Same as l 15:00: Diovan Ottoniel 00 Potassium No Notes: Memori a Chloride 2-13 (Same as: l 1.33 MEQ/ML 15:00: Potassium H ermann Oral 00 Chloride) Solution Potassium No Notes: Memori a Chloride 2-13 (Same [...] s with feeding tube less than 14 Serbian (Dobhoff, J-tube etc) and pediatric and patients. Potassium No Notes: Memori a Chloride 2-13 (Same [...] s with feeding tube less than 14 Serbian (Dobhoff, J-tube etc) and pediatric and patients. 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 Aspirin 2019-0 No Notes: Memoria 2-12 Take with l 18:45: food. Azithromyci 2019- No Notes: Hector imtiaz n 2-12 Take 1 l 16:30: hour Newcomb 00 before or 2 hours after meals. (Same As: Zithromax) Azithromyci 0 No Notes: Hector imtiaz n 2-12 Take [...] H ermann Oral 00 Chloride) Solution Coreg 2019-0 No Notes: Memoria 2-12 Give with l 15:00: food. Newcomb 00 (Same As: Coreg) Coreg 2019-0 No Notes: Memoria 2-12 Give with l 15:00: food. (Same As: Coreg) Potassium 2019-0 No Notes: Memori a Chloride 2-12 (Same as: l 12:00: KCL) Newcomb 00 Infuse over 2 hours. Potassium 2019-0 No Notes: Memori a Chloride 2-12 (Same as: l 12:00: KCL) Ottoniel 00 Infuse over 2 hours. Potassium 2020-0 [...] imtiaz 2-11 (Same As: l 22:00: Rocephin). Newcomb 00 MEDICATION WASTE Product Size: 1000 mg Product Wasted: _0__ mg Hydralazine 2020-0 No Notes: Hector imtiaz 2-11 (Same as: l 20:37: Apresoline Ottoniel 00 ) Hydralazine 2020-0 No Notes: Hector imtiaz 2-11 (Same as: l 20:37: Apresoline Newcomb 00 ) Coreg 2020-0 No Notes: Memoria 2-11 Give with l 20:36: food. Newcomb 00 (Same As: Coreg) Sodium 2020-0 No 1,000 mL, Memori a Chloride 2-11 Rate: 100 l 0.9% IV 20:36: ml/hr, Newcomb 1,000 mL 00 Infuse over: 10 hr, Route: IV, Dosing Weight 68.182 kg, Total Volume: 1,000, Start date: 09/16/19 14:36:00 HOTEL SERVER, Duration: 30 day, Stop date: 10/16/19 13:36:00 CDT, 1.68, m2, 0 Coreg 2020-0 No Notes: Memoria 2-11 Give with l 20:36: food. Ottoniel 00 (Same As: Coreg) Sodium 2020-0 No 1,000 mL, Memori a Chloride 2-11 Rate: 100 l 0.9% IV 20:36: ml/hr, Newcomb 1,000 mL 00 Infuse over: 10 hr, Route: IV, Dosing Weight 68.182 kg, Total Volume: 1,000, Start date: 09/16/19 14:36:00 HOTEL SERVER, Duration: 30 day, Stop date: 10/16/19 13:36:00 CDT, 1.68, m2, 0 Tylenol 2020-0 No 100.4 F, Memor ia 2-11 Start l 20:33: date: 09/16/19 14:33:00 HOTEL SERVER, Duration: 30 day, Stop date: 10/16/19 14:32:00 CDT, 0 Motrin 2020-0 No 100.4 F, Memori a 2-11 Start l 20:33: date: 09/16/19 14:33:00 HOTEL SERVER, Duration: 30 day, Stop date: 10/16/19 14:32:00 CDT, 0 Tylenol 2020-0 No 100.4 F, Memor ia 2-11 Start l 20:33: date: 09/16/19 14:33:00 HOTEL SERVER, Duration: 30 day, Stop date: 10/16/19 14:32:00 CDT, 0 Motrin 2020-0 No 100.4 F, Memori a 2-11 Start l 20:33: date: 09/16/19 14:33:00 HOTEL SERVER, Duration: 30 day, Stop date: 10/16/19 14:32:00 CDT, 0 heparin 2020-0 No Notes: Memoria 2-11 porcine l 18:45: heparin Ottoniel 00 heparin 2020-0 No Notes: Memoria 2-11 porcine l 18:45: heparin Newcomb 00 valsartan 2020-0 No Notes: Memori a 2-11 Same as l 18:05: Diovan Newcomb 00 valsartan 2020-0 No Notes: Memori a 2-11 Same as l 18:05: Diovan Ottoniel 00 Sodium 2020-0 No 1,000 mL, Memori a Chloride 2-11 Rate: 100 l 0.9% IV 17:42: ml/hr, Ottoniel 1,000 mL 00 Infuse over: 10 hr, Route: IV, Dosing Weight 68.182 kg, Total Volume: 1,000, Start date: 09/16/19 11:42:00 HOTEL SERVER, Duration: 30 day, Stop date: 10/16/19 11:41:00 CDT, 1.68, m2, 0 Sodium 2020-0 No 1,000 mL, Memori a Chloride 2-11 Rate: 100 l 0.9% IV 17:42: ml/hr, Newcomb 1,000 mL 00 Infuse over: 10 hr, Route: IV, Dosing Weight 68.182 kg, Total Volume: 1,000, Start date: 09/16/19 11:42:00 HOTEL SERVER, Duration: 30 day, Stop date: 10/16/19 11:41:00 CDT, 1.68, m2, 0 pantoprazol 2020-0 No Notes: For Memoria e 2-11 IV push l 15:00: reconstitu Newcomb 00 te with 10 ml 0.9% sodium chloride and push over 2 minutes. (Same as: Protonix) Zosyn 2020-0 No Notes: Memoria 2-11 (Same as: l 15:00: Zosyn) Newcomb Dosing based on Piperacill in component MEDICATION WASTE Product Size: 3375 mg Product Wasted: _0__ mg pantoprazol 2020-0 No Notes: For Memoria e 2-11 IV push l 15:00: reconstitu Ottoniel 00 te with 10 ml 0.9% sodium chloride and push over 2 minutes. (Same as: Protonix) Zosyn 2020-0 No Notes: Memoria 2-11 (Same as: l 15:00: Zosyn) Newcomb 00 Dosing based on Piperacill in component MEDICATION WASTE Product Size: 3375 mg Product Wasted: _0__ mg Acetaminoph 2020-0 No Notes: Do M emoria en 2-11 not exceed l 14:50: 4 gm/day. Newcomb (Same as: Tylenol) Acetaminoph 2020-0 No Notes: Do M emoria en 2-11 not exceed l 14:50: 4 gm/day. Newcomb (Same as: Tylenol) vancomycin 2020-0 No 2000 mg: Me moria + Sodium 2-11 infuse l Chloride 14:16: over 2.5 Crytsal nn 0.9% IV 250 00 hours For mL adult patients only: Round to nearest 250 mg per Medical Staff approval MEDICATION WASTE Product Size: 1000 mg Product Wasted: ___ mg vancomycin 2020-0 No 2000 mg: Me moria + Sodium [...] H ermann Oral 00 Chloride) Solution Vancomycin 2020-0 No 1,500 mg, Me moria 2-11 Route: l 14:00: IVPB, Drug Ottoniel 00 form: INJ, [id number], Dosing Weight 68.182, kg, Start date: 09/16/19 8:00:00 HOTEL SERVER, Duration: 7 day, Stop date: 09/22/19 20:00:00 HOTEL SERVER, ABX Indication : Bacteremia Vancomycin 2020-0 No 1,500 mg, Me moria 2-11 Route: l 14:00: IVPB, Drug Newcomb 00 form: INJ, [id number], Dosing Weight 68.182, kg, Start date: 09/16/19 8:00:00 HOTEL SERVER, Duration: 7 day, Stop date: 09/22/19 20:00:00 HOTEL SERVER, ABX Indication : Bacteremia Tylenol 2019-0 No Notes: Max Hector imtiaz 2-11 acetaminop l 13:32: hen = 4000 Ottoniel 00 mg/day (4 gm/day). (Same as: Tylenol) Tylenol 2019-0 No Notes: Max Hector imtiaz 2-11 acetaminop l 13:32: hen = 4000 Ottoniel 00 mg/day (4 gm/day). (Same as: Tylenol) Potassium 2020-0 No 10 mEq, Memor ia Chloride 2-11 Route: l 13:00: IVPB, Q1H, Ottoniel 00 Dosing Weight 68.182, kg, Total Dose = 60 meq, Start date: 09/16/19 7:00:00 HOTEL SERVER, Duration: 6 doses or times, Stop date: 09/16/19 12:00:00 HOTEL SERVER, Periphe ral Line Potassium 2020-0 No 10 mEq, Memor ia Chloride 2-11 Route: l 13:00: IVPB, Q1H, Dosing Weight 68.182, kg, Total Dose = 60 meq, Start date: 09/16/19 7:00:00 HOTEL SERVER, Duration: 6 doses or times, Stop date: 09/16/19 12:00:00 HOTEL SERVER, Periphe ral Line Ativan No Notes: Memoria 2-11 (Same as: l 10:55: Ativan) Ativan No Notes: Memoria 2-11 (Same as: l 10:55: Ativan) Benadryl No Notes: Memoria 2-11 (Same as: l 06:04: Benadryl) Benadryl No Notes: Memoria 2-11 (Same as: l 06:04: Benadryl) Compazine No Notes: Memori a 2-11 (Same as: l 06:03: Compazine) Compazine No Notes: Memori a 2-11 (Same as: l 06:03: Compazine) Tylenol No 67 kg; Memoria 2-11 Pediatric l 04:31: Dosing Tylenol No 67 kg; Memoria 2-11 Pediatric l 04:31: Dosing atorvastati No Notes: Hector imtiaz n 2-11 Same as l 03:00: Lipitor Saline No Notes: Memoria Flush 0.9% 2-11 (Same as: l 03:00: BD Posiflush) atorvastati No Notes: Hector imtiaz n 2-11 Same as l 03:00: Lipitor Saline No Notes: Memoria Flush 0.9% 2-11 (Same as: l 03:00: BD Posiflush) valsartan Yes 320 mg = 1 Me moria 320 mg oral 2-11 tab, PO, l tablet 01:13: Daily, 0 Refill(s) Hydrochloro No 25 mg = 1 M emoria thiazide 25 2-11 tab, PO, l MG Oral 01:13: Daily, 0 Luciano n Tablet 00 Refill(s) Advair 2020-0 Yes INHALATION Memor ia Diskus 250 2-11 , BID, 0 l mcg-50 mcg 01:13: Refill(s) He rmann inhalation 00 powder diltiazem 2020-0 No 240 mg = 1 Me moria 240 mg/24 2-11 tab, PO, l hours oral 01:13: Daily, 0 Her ortez tablet, 00 Refill(s) extended release potassium 2020-0 Yes 10 mEq = 1 Me moria chloride 10 2-11 cap, PO, l mEq oral 01:13: BID, 0 Ottoinel capsule, 00 Refill(s) extended release diazepam 5 2020-0 No 5 mg = 1 Mem oria mg oral 2-11 tab, PO, l tablet 01:13: TID, 0 Ottoniel 00 Refill(s) valsartan 2020-0 Yes 320 mg = 1 Me moria 320 mg oral 2-11 tab, PO, l tablet 01:13: Daily, 0 Ottoniel 00 Refill(s) Hydrochloro 2020-0 No 25 mg = 1 M emoria thiazide 25 2-11 tab, PO, l MG Oral 01:13: Daily, 0 Luciano n Tablet 00 Refill(s) Advair 2020-0 Yes INHALATION Memor ia Diskus 250 2-11 , BID, 0 l mcg-50 mcg 01:13: Refill(s) He rmann inhalation 00 powder diltiazem 2020-0 No 240 mg = 1 Me moria 240 mg/24 2-11 tab, PO, l hours oral 01:13: Daily, 0 Her ortez tablet, 00 Refill(s) extended release potassium 2020-0 Yes 10 mEq = 1 Me moria chloride 10 2-11 cap, PO, l mEq oral 01:13: BID, 0 Newcomb capsule, 00 Refill(s) extended release diazepam 5 2020-0 No 5 mg = 1 Mem oria mg oral 2-11 tab, PO, l tablet 01:13: TID, 0 Ottoniel 00 Refill(s) potassium 2020-0 No Notes: Memori a chloride 20 2-10 [...] s with feeding tube less than 14 Serbian (Dobhoff, J-tube etc) and pediatric and patients. Magnesium 2020-0 No Notes: Memori a Sulfate 2-10 WASTE: F/P l 21:55: - Sink; E Ottoniel 00 - Municipal Trash Bin potassium 2020-0 No Notes: Memori a chloride 20 2-10 [...] s with feeding tube less than 14 Serbian (Dobhoff, J-tube etc) and pediatric and patients. Magnesium 2020-0 No Notes: Memori a Sulfate 2-10 WASTE: F/P l 21:55: - Sink; E Newcomb 00 - Municipal Trash Bin Ex-Lax Milk 2020-0 No Notes: Hector imtiaz of Magnesia 2-10 (Same as: l 20:34: Milk of Newcomb 00 Magncarmine, MOM) Ex-Lax Milk 2020-0 No Notes: Hector imtiaz of Magnesia 2-10 (Same as: l 20:34: Milk of Newcomb 00 Magnesia, MOM) Labetalol 2020-0 No 105 mmHg, Me moria 2-10 Start l 19:54: date: Newcomb 00 09/15/19 13:54:00 HOTEL SERVER, Duration: 30 day, Stop date: 10/15/19 14:53:00 CDT, 0 Saline 2020-0 No Notes: Memoria Flush 0.9% 2-10 (Same as: l 19:54: BD Newcomb 00 Posiflush) Labetalol 2020-0 No 105 mmHg, Me moria 2-10 Start l 19:54: date: Newcomb 00 09/15/19 13:54:00 HOTEL SERVER, Duration: 30 day, Stop date: 10/15/19 14:53:00 CDT, 0 Saline 2020-0 No Notes: Memoria Flush 0.9% 2-10 (Same as: l 19:54: BD Newcomb 00 Posiflush) Labetalol 2020-0 No 10 mg, Memori a 2-10 Route: l 18:46: IVP, Drug Newcomb 00 form: INJ, ONCE, Dosing Weight 68.182, kg, Priority: STAT, Start date: 09/15/19 12:46:00 HOTEL SERVER, Stop date: 09/15/19 12:46:00 HOTEL SERVER Labetalol 2020-0 No 10 mg, Memori a 2-10 Route: l 18:46: IVP, Drug Ottoniel 00 form: INJ, ONCE, Dosing Weight 68.182, kg, Priority: STAT, Start date: 09/15/19 12:46:00 HOTEL SERVER, Stop date: 09/15/19 12:46:00 HOTEL SERVER Sodium 2020-0 No 1,000 mL, Memori a Chloride 2-10 Rate: 50 l 0.9% IV 18:45: ml/hr, Newcomb 1,000 mL 00 Infuse over: 20 hr, Route: IV, Dosing Weight 68.182 kg, Total Volume: 1,000, Priority: STAT, Start date: 09/15/19 12:45:00 HOTEL SERVER, Duration: 30 day, Stop date: 10/15/19 12:44:00 CDT, 1.68, m2, 0 Sodium 2020-0 No 50 mL, Memoria Chloride 2-10 Rate: 50 l 0.9% IV 50 18:45: ml/hr, Crystal nn mL 00 Infuse over: 1 hr, Route: IV, Dosing Weight 68.182 kg, Total Volume: 50, Use to FLUSH line AFTER tPA infusion., Priority: Routine, Start date: 09/15/19 12:45:00 HOTEL SERVER, Duration: 1 doses or times, Stop date: 09/15/19 13:44:00 HOTEL SERVER,... Alteplase 2020-0 No 6.1364 mg, Me moria 2-10 Route: IV, l 18:45: ONCE, Newcomb 00 Dosing Weight 68.182, kg, Priority: STAT, Start date: 09/15/19 12:45:00 HOTEL SERVER, Stop date: 09/15/19 12:45:00 HOTEL SERVER Sodium 2020-0 No 1,000 mL, Memori a Chloride 2-10 Rate: 50 l 0.9% IV 18:45: ml/hr, Ottoniel 1,000 mL 00 Infuse over: 20 hr, Route: IV, Dosing Weight 68.182 kg, Total Volume: 1,000, Priority: STAT, Start date: 09/15/19 12:45:00 HOTEL SERVER, Duration: 30 day, Stop date: 10/15/19 12:44:00 CDT, 1.68, m2, 0 Sodium 2020-0 No 50 mL, Memoria Chloride 2-10 Rate: 50 l 0.9% IV 50 18:45: ml/hr, Crystal nn mL 00 Infuse over: 1 hr, Route: IV, Dosing Weight 68.182 kg, Total Volume: 50, Use to FLUSH line AFTER tPA infusion., Priority: Routine, Start date: 09/15/19 12:45:00 HOTEL SERVER, Duration: 1 doses or times, Stop date: 09/15/19 13:44:00 HOTEL SERVER,... Alteplase 2020-0 No 6.1364 mg, Me moria 2-10 Route: IV, l 18:45: ONCE, Ottoniel Dosing Weight 68.182, kg, Priority: STAT, Start date: 09/15/19 12:45:00 HOTEL SERVER, Stop date: 09/15/19 12:45:00 HOTEL SERVER Iohexol 2020-0 No 60 mL, Memoria 2-10 Route: l 18:18: IVP, Drug Form: SOLN, kg, ONCALL, STAT, Start date: 09/15/19 12:18:00 HOTEL SERVER, Duration: 1 doses or times, Dose = 2.2ml/kg, Max dose = 100ml -- "To be infused by Radiology Staff ONLY" Iohexol 2020-0 No 60 mL, Memoria 2-10 Route: l 18:18: IVP, Drug Form: SOLN, kg, ONCALL, STAT, Start date: 09/15/19 12:18:00 HOTEL SERVER, Duration: 1 doses or times, Dose = 2.2ml/kg, Max dose = 100ml -- "To be infused by Radiology Staff ONLY" Nicardipine 2020-0 No Notes: Hector imtiaz 2-10 Same as: l 18:11: Cardene Concentrat ion: (0.2 mg /1 ml ) Nicardipine 2020-0 No Notes: Hector imtiaz 2-10 Same as: l 18:11: Cardene Concentrat ion: (0.2 mg /1 ml ) Saline 2019-0 No Notes: Memoria Flush 0.9% 2-10 Same as: l 17:53: BD Newcomb 00 Posiflush Sterile Saline 2019-0 No Notes: Memoria Flush 0.9% 2-10 Same as: l 17:53: BD Newcomb 00 Posiflush Sterile Bupivicaine Bupivicaine 2020-0 No 5mL [place] 1-27 Spirit 00:00: - [facility] Kenalog Kenalog 2020-0 No 1mL Common (Triamcinol (Triamcinol 1-27 S pirit one) one) 00:00: - [facility] Bupivicaine Bupivicaine 2020-0 No 5mL Common [place] 1-27 Spirit 00:00: - [facility] Kenalog Kenalog 2020-0 No 1mL Common (Triamcinol (Triamcinol 1-27 S pirit one) one) 00:00: - [facility] HydrALAZINE HydrALAZINE Yes Mumtaz not Common HCl HCl Trivedi defined [facility] Gabapentin Gabapentin Yes Mumtaz not Common Trivedi defined [facility] Furosemide Furosemide Yes Mumtaz not Common Trivedi defined [facility] Acetaminoph Acetaminoph Yes Mumtaz not Common en en Trivedi defined [facility] Aspercreme Aspercreme Yes Mumtaz not Common Trivedi defined [facility] Diltiazem Diltiazem Yes Mumtaz not Co mmon HCl ER HCl ER Trivedi defined [facility] Coated [facility] Beads Beads [facility] hydroCHLORO hydroCHLORO No hydroCHLOR thiazide thiazide Othiazide Acetaminoph Acetaminoph No Acetaminop en en hen Baclofen Baclofen No Baclofen Labetalol Labetalol No HCl HCl Losartan Losartan No Potassium Potassium dilTIAZem dilTIAZem No HCl ER HCl ER Coated Coated Beads Beads Advair Advair No Diskus Diskus Aspercreme Aspercreme No Potassium Potassium No Chloride Chloride Ermelinda ER Ermelinda ER Acetaminoph Acetaminoph No en en Omeprazole Omeprazole No hydroCHLORO hydroCHLORO No thiazide thiazide Eliquis Eliquis No hydrALAZINE hydrALAZINE No HCl HCl Benzonatate Benzonatate No Furosemide Furosemide No dilTIAZem dilTIAZem No HCl HCl Baclofen Baclofen No Gabapentin Gabapentin No Biofreeze Biofreeze No Advair Advair No Advair Diskus Diskus Diskus Potassium Potassium No Potassium Chloride Chloride Chloride Ermelinda ER Ermelinda ER Ermelinda ER dilTIAZem dilTIAZem No dilTIAZem HCl ER HCl ER HCl ER Coated Coated Coated Beads Beads Beads dilTIAZem dilTIAZem No dilTIAZem HCl HCl HCl Biofreeze Biofreeze No Biofreeze Aspercreme Aspercreme No Aspercreme Benzonatate Benzonatate No Benzonatat e Omeprazole Omeprazole No Omeprazole hydrALAZINE hydrALAZINE No hydrALAZIN HCl HCl E HCl Labetalol Labetalol No Labetalol HCl HCl HCl Gabapentin Gabapentin No Gabapentin Eliquis Eliquis No Eliquis Losartan Losartan No Losartan Potassium Potassium Potassium Furosemide Furosemide No Furosemide hydroCHLORO hydroCHLORO No hydroCHLOR thiazide thiazide Othiazide Acetaminoph Acetaminoph No Acetaminop en en hen Baclofen Baclofen No Baclofen Advair Advair No Advair Diskus Diskus Diskus Potassium Potassium No Potassium Chloride Chloride Chloride Ermelinda ER Ermelinda ER Ermelinda ER dilTIAZem dilTIAZem No dilTIAZem HCl ER HCl ER HCl ER Coated Coated Coated Beads Beads Beads dilTIAZem dilTIAZem No dilTIAZem HCl HCl HCl Biofreeze Biofreeze No Biofreeze Aspercreme Aspercreme No Aspercreme Benzonatate Benzonatate No Benzonatat e Omeprazole Omeprazole No Omeprazole hydrALAZINE hydrALAZINE No hydrALAZIN HCl HCl E HCl Labetalol Labetalol No Labetalol HCl HCl HCl Gabapentin Gabapentin No Gabapentin Eliquis Eliquis No Eliquis Losartan Losartan No Losartan Potassium Potassium Potassium Furosemide Furosemide No Furosemide Advair Advair Yes Mumtaz not Common Diskus Diskus Trivedi defined [facility] - [facility] potassium potassium Yes Mumtaz not Co mmon Trivedi defined [facility] Valsartan Valsartan Yes Mumtaz not Co mmon Trivedi defined [facility] Losartan Losartan Yes Mumtaz not Comm on Potassium Potassium Trivedi defined Sp maurice [facility] Labetalol Labetalol Yes Mumtaz not Co mmon HCl HCl Trivedi defined [facility] Benzonatate Benzonatate Yes Mumtaz not Common Trivedi defined [facility] Hydrochloro Hydrochloro Yes Mumtaz not Common thiazide thiazide Trivedi defined Spir it [facility] Baclofen Baclofen Yes Mumtaz not Comm on Trivedi defined [facility] Diltiazem Diltiazem Yes Mumtaz not Co mmon HCl HCl Trivedi defined [facility] Biofreeze Biofreeze Yes Mumtaz not Co mmon Trivedi defined [facility] Potassium Potassium Yes Mumtaz not Co mmon Chloride Chloride Trivedi defined Spir it Ermelinda ER Ermelinda ER [facility] Omeprazole Omeprazole Yes Mumtaz not Common Trivedi defined [facility] Eliquis Eliquis Yes Mumtaz not Common Trivedi defined [facility] Diazepam Diazepam Yes Mumtaz not Comm on Trivedi defined [facility] Vital Signs Vital Name Observation Time Observation Value Comments Source height 2022-03-17 09:00:00 59 [in_i] [facility] weight 2022-03-17 09:00:00 159 [lb_av] [facility] temperature 2022-03-17 09:00:00 97.2 [degF] [facility] bmi 2022-03-17 09:00:00 32.11 kg/m2 [facility] blood pressure 2022-03-17 09:00:00 132 mm[Hg] [facility] - systolic [facility] blood pressure 2022-03-17 09:00:00 84 mm[Hg] [facility] - diastolic [facility] height 2021-08-23 10:30:00 59 [in_i] [facility] weight 2021-08-23 10:30:00 159 [lb_av] [facility] temperature 2021-08-23 10:30:00 98.0 [degF] Common S pirit - [facility] bmi 2021-08-23 10:30:00 32.11 kg/m2 Common S pirit - [facility] blood pressure 2021-08-23 10:30:00 144 mm[Hg] [facility] - systolic [facility] blood pressure 2021-08-23 10:30:00 86 mm[Hg] [facility] - diastolic [facility] Systolic (mm Hg) 2021-09-01 15:05:00 Hector rial Newcomb Diastolic (mm Hg) 2021-09-01 15:05:00 Mem orial Ottoniel Heart Rate 2021-09-01 15:05:00 [facility] Ottoniel Respitory Rate 2021-09-01 15:05:00 Memori al Ottoniel Systolic (mm Hg) 2020-10-14 15:15:00 Hector rial Ottoniel Diastolic (mm Hg) 2020-10-14 15:15:00 Mem orial Ottoniel Heart Rate 2020-10-14 15:15:00 Memorial Newcomb Respitory Rate 2020-10-14 15:15:00 Memori al Ottoniel Weight 2020-10-14 15:15:00 Memorial Ottoniel Systolic (mm Hg) 2020-09-23 16:25:00 Hector rial Newcomb Diastolic (mm Hg) 2020-09-23 16:25:00 Mem orial Newcomb Heart Rate 2020-09-23 16:25:00 Memorial Ottoniel Respitory Rate 2020-09-23 16:25:00 Memori al Newcomb Height 2020-09-23 16:25:00 149.86 cm [facility] Ottoniel Weight 2020-09-23 16:25:00 [facility] Ottoniel BMI Calculated 2020-09-23 16:25:00 Memori al Newcomb Systolic (mm Hg) 2020-08-03 21:57:00 Hector rial Newcomb Diastolic (mm Hg) 2020-08-03 21:57:00 Mem orial Newcomb Heart Rate 2020-08-03 21:57:00 [facility] Ottoniel Respitory Rate 2020-08-03 21:57:00 Memori al Newcomb Height 2020-08-03 21:57:00 149.86 cm [facility] Ottoniel Weight 2020-08-03 21:57:00 [facility] Ottoniel BMI Calculated 2020-08-03 21:57:00 Memori al Newcomb Systolic (mm Hg) 2020-06-17 15:10:00 Hector rial Ottoniel Diastolic (mm Hg) 2020-06-17 15:10:00 Mem orial Newcomb Heart Rate 2020-06-17 15:10:00 [facility] Ottoniel Height 2020-06-17 15:10:00 149.86 cm [facility] Ottoniel Weight 2020-06-17 15:10:00 [facility] Ottoniel BMI Calculated 2020-06-17 15:10:00 Memori al Newcomb Temperature Oral (F) 2019-09-26 19:34:00 98.3 F [facility] Ottoniel Heart Rate 2019-09-26 19:34:00 [facility] Ottoniel Respitory Rate 2019-09-26 19:34:00 Memori al Ottoniel Systolic (mm Hg) 2019-09-26 19:34:00 Hector rial Newcomb Diastolic (mm Hg) 2019-09-26 19:34:00 Mem orial Ottoniel Temperature Oral (F) 2019-09-26 15:11:00 98.7 F [facility] Newcomb Heart Rate 2019-09-26 15:11:00 [facility] Ottoniel Respitory Rate 2019-09-26 15:11:00 Memori al Newcomb Systolic (mm Hg) 2019-09-26 15:11:00 Hector rial Ottoniel Diastolic (mm Hg) 2019-09-26 15:11:00 Mem orial Newcomb Temperature Oral (F) 2019-09-26 09:25:00 98.3 F [facility] Newcomb Heart Rate 2019-09-26 09:25:00 [facility] Ottoniel Respitory Rate 2019-09-26 09:25:00 Memori al Newcomb Systolic (mm Hg) 2019-09-26 09:25:00 Hector rial Newcomb Diastolic (mm Hg) 2019-09-26 09:25:00 Mem orial Ottoniel Height 2019-09-16 14:57:00 142.24 cm [facility] Ottoniel Weight 2019-09-16 14:57:00 [facility] Ottoniel Height 2019-09-15 18:20:00 142.24 cm [facility] Ottoniel BMI Calculated 2019-09-15 18:20:00 Memori al Ottoniel Weight 2019-09-15 18:20:00 [facility] Ottoniel Procedures Procedure Date / Time Performing Clinician Source Performed [facility] 2022-05-26 00:10:00 Hector Alcazar extremity; 1-4 muscle(s) Thrombolysis, cerebral, by 2019-09-15 19:45:00 M onelia Alcazar intravenous infusion Plan of Care Planned Activity Planned Date Details Comments Source Future Scheduled 2022-06-09 HEPATITIS B VACCINES Met [facility] Test 02:50:07 (1 of 3 - 3-dose series) [code = HEPATITIS B VACCINES (1 of 3 - 3-dose series)] Future Scheduled 2022-06-09 COVID-19 VACCINE (#1) [facility] Test 02:50:07 [code = COVID-19 VACCINE (#1)] Future Scheduled 2022-06-09 SHINGLES VACCINES (1 Met [facility] Test 02:50:07 of 2) [code = SHINGLES VACCINES (1 of 2)] Future Scheduled 2022-06-09 65+ [facility] 02:50:07 VACCINE (1 - PCV) [code = 65+ PNEUMOCOCCAL VACCINE (1 - PCV)] Future Scheduled 2022-06-09 [facility] 02:50:07 [code = INFLUENZA VACCINE] Encounters Start End Encounter Admission Attending Care Care Encounter Source Date/Time Date/Time Type Type Clinicians Facility Department ID 2022-03-21 Outpatient [facility] [id number] Common 16:42:01 [facility] 2022-03-16 Outpatient [facility] [id number] Common 14:43:00 [facility] 2022-03-15 Outpatient [facility] [id number] Common 13:47:01 [facility] 2021-12-01 Outpatient [facility] [id number] [place] 15:23:41 [id number] 2021-09-01 Outpatient 3 [id number] [facility] CVA [facility] 12:36:39 [facility] [place] 2021-09-01 Outpatient 3 [id number] [facility] REF [facility] 12:35:16 [id number] [facility] [place] 2021-09-01 Outpatient 3 [id number] ENCPL YODIT [id number] [facility] 11:51:13 0330 [facility] [place] 2021-09-01 Outpatient 3 [id number] ENC[facility] REF [facility] 11:45:49 0316 [facility] [place] 2021-09-01 Outpatient 3 [id number] ENCPL OTH [facility] 09:13:32 0218 [facility] [place] 2021-09-01 Outpatient 3 [id number] ENC[facility] REF [facility] 09:12:29 0214 [facility] [place] 2021-08-31 Outpatient STLMLC STLMLC [id number] Common 13:25:14 [id number] [facility] 2021-08-31 Outpatient STLMLC STLMLC [id number] Common 13:24:49 [id number] [facility] 2021-08-31 Outpatient STLMLC STLMLC [id number] Common 12:43:02 [id number] [facility] 2021-08-31 Outpatient STLMLC STLMLC [id number] Common 12:13:01 [id number] [facility] 2021-08-31 Outpatient STLMLC STLMLC [id number] Common 11:31:48 [id number] [facility] 2021-08-31 Outpatient STLMLC STLMLC [id number] Common 11:03:31 [id number] [facility] 2022-08-17 2022-08-17 Outpatient MHIE MHIE [id number] Memoria 09:30:00 09:30:00 10 owen Ottoniel 2022-08-17 2022-08-17 Outpatient MHIE MHIE [id number] Memoria 09:30:00 09:30:00 10 owen Alcazar 2022-05-25 2022-05-26 Outpatient nullFlavo MNA [id number] [facility] 14:00:00 04:59:59 r Neurology 09 l Paulo Alcazar 2022-05-25 2022-05-26 Outpatient nullFlavo MNA [id number] Memoria 14:00:00 04:59:59 r Neurology 09 l Paulo Newcomb 2022-05-25 2022-05-25 Outpatient RUSSELL FontanaMISCHER MHMISCHER [id number] 09:00:00 23:59:59 Yaniv 09 Gasper 2022-05-25 2022-05-25 Outpatient RUSSELL FontanaMISCHER MHMISCHER [id number] 09:00:00 23:59:59 Yaniv 09 Gasper 2022-05-25 2022-05-25 Outpatient MHIE MHIE [id number] Memoria 09:00:00 09:00:00 09 owen Alcazar 2022-05-25 2022-05-25 Outpatient MHIE MHIE [id number] Memoria 09:00:00 09:00:00 09 owen Alcazar 2022-03-30 2022-03-30 Ambulatory nullFlavo MNA [id number] Memoria 16:15:00 16:15:00 Pre-Reg r Neurology 08 owen Alcazar 2022-03-30 2022-03-30 Ambulatory nullFlavo MNA [id number] Memoria 16:15:00 16:15:00 Pre-Reg r Neurology 08 owen Alcazar 2022-03-30 2022-03-30 Outpatient MHIE MHIE [id number] Memoria 11:15:00 11:15:00 08 owen Alcazar 2022-03-30 2022-03-30 Outpatient MHIE MHIE [id number] Memoria 11:15:00 11:15:00 08 owen Alcazar 2022-03-30 2022-03-30 Outpatient RUSSELL FontanaMISCHER MHMISCHER [id number] 11:15:00 11:15:00 Yaniv 08 Gasper 2022-03-30 2022-03-30 Outpatient RUSSELL FontanaMISCHER MHMISCHER [id number] 11:15:00 11:15:00 Yaniv 08 Gasper 2022-03-28 2022-03-28 (TEL) STLC STLC [id number] Co mmon 00:00:00 00:00:00 Spirit - [facility] 2022-03-17 2022-03-17 OFFICE STLMLC STLMLC [id number] Co mmon 00:00:00 00:00:00 VISIT Spirit ESTAB PT - CHI LEVEL 4 [facility] 2022-02-27 2022-02-28 Outpatient nullFlavo MNA [id number] Memoria 15:00:00 04:59:59 r Neurology 07 owen Alcazar 2022-02-27 2022-02-28 Outpatient nullFlavo MNA [id number] Memoria 15:00:00 04:59:59 r Neurology 07 owen Alcazar 2022-02-27 2022-02-27 Outpatient RUSSELL FontanaFLSCHER MISCHER [id number] 10:00:00 23:59:59 Yaniv Leonora Jackman 2022-02-27 2022-02-27 Outpatient RUSSELL FontanaFLSCHER MISCHER [id number] 10:00:00 23:59:59 Yaniv Leonora Jackman 2022-02-27 2022-02-27 Outpatient MHIE MHIE [id number] Memoria 10:00:00 10:00:00 07 owen Alcazar 2022-02-27 2022-02-27 Outpatient MHIE MHIE [id number] Memoria 10:00:00 10:00:00 07 owen Alcazar 2021-12-08 2021-12-09 Outpatient nullFlavo MNA [id number] Memoria 14:45:00 04:59:59 r Neurology 06 owen Alcazar 2021-12-08 2021-12-09 Outpatient nullFlavo MNA [id number] Memoria 14:45:00 04:59:59 r Neurology 06 l Paulo Alcazar 2021-12-08 2021-12-08 Outpatient RUSSELL FontanaMISCHER MISCHER [id number] 09:45:00 23:59:59 Yaniv Zenobia Jackman 2021-12-08 2021-12-08 Outpatient RUSSELL FontanaMISCHER MISCHER [id number] 09:45:00 23:59:59 Yaniv Zenobia Jackman 2021-12-08 2021-12-08 Outpatient MHIE MHIE [id number] Memoria 09:45:00 09:45:00 06 owen Alcazar 2021-12-08 2021-12-08 Outpatient MHIE MHIE [id number] Memoria 09:45:00 09:45:00 06 owen ReddingOttoniel 2021-10-27 2021-10-28 Outpatient nullFlavo MNA [id number] Memoria 14:30:00 04:59:59 r Neurology 05 l Paulo Alcazar 2021-10-27 2021-10-28 Outpatient nullFlavo MNA [id number] Memoria 14:30:00 04:59:59 r Neurology 05 l Paulo Alcazar 2021-10-27 2021-10-27 Outpatient [facility]FLSCH[facility] [id number] 09:30:00 23:59:59 Yaniv Carol Jackman 2021-10-27 2021-10-27 Outpatient Add[facility] [id number] 09:30:00 23:59:59 Yaniv 05 Gasper 2021-10-27 2021-10-27 Outpatient MHIE MHIE [id number] Memoria 09:30:00 09:30:00 05 owen Alcazar 2021-10-27 2021-10-27 Outpatient MHIE MHIE [id number] Memoria 09:30:00 09:30:00 05 owen Alcazar 2021-09-01 2021-09-02 Outpatient nullFlavo MNA [id number] Memoria 15:00:00 05:59:59 r Neurology 04 l Paulo Alcazar 2021-09-01 2021-09-02 Outpatient nullFlavo MNA [id number] Memoria 15:00:00 05:59:59 r Neurology 04 l Paulo Alcazar 2021-09-01 2021-09-01 Outpatient RUSSELL FontanaFLSCHER [facility] [id number] 09:00:00 23:59:59 Yaniv 04 Gasper 2021-09-01 2021-09-01 Outpatient Addi [facility] [id number] 09:00:00 23:59:59 Yaniv 04 Gasper 2021-09-01 2021-09-01 Outpatient MHIE MHIE [id number] Memoria 09:00:00 09:00:00 04 owen Alcazar 2021-09-01 2021-09-01 Outpatient MHIE MHIE [id number] Memoria 09:00:00 09:00:00 04 owen Alcazar 2021-08-23 2021-08-[address] [facility] [id number] Co mmon 00:00:00 00:00:00 VISIT Spirit ESTAB PT - CHI LEVEL 4 [facility] 2021-05-18 2021-05-20 Outside nullFlavo MNA [id number] Memoria 13:14:38 04:59:59 Medical r Neurology 05 l Records Paulo Alcazar 2021-05-18 2021-05-20 Outside nullFlavo MNA [id number] Memoria 13:14:38 04:59:59 Medical r Neurology 05 l Records aPulo Alcazar 2021-05-18 2021-05-19 Outpatient MHMISCHER MHMISCHER [id number] 08:14:38 23:59:59 05 2021-05-18 2021-05-19 Outpatient MHMISCHER MHMISCHER [id number] 08:14:38 23:59:59 05 2021-03-01 2021-03-03 Outside nullFlavo MNA [id number] Memoria 13:37:14 04:59:59 Medical r Neurology 04 l Records Paulo Alcazar 2021-03-01 2021-03-03 Outside nullFlavo MNA [id number] Memoria 13:37:14 04:59:59 Medical r Neurology 04 l Records Paulo Alcazar 2021-03-01 2021-03-02 Outpatient MHMISCHER MHMISCHER [id number] 08:37:14 23:59:59 04 2021-03-01 2021-03-02 Outpatient MHMISCHER MHMISCHER [id number] 08:37:14 23:59:59 04 2021-02-15 2021-02-15 [address] [id number] Common 00:00:00 00:00:00 [facility] 2020-11-30 2020-12-02 Outside nullFlavo MNA [id number] Memoria 17:03:43 04:59:59 Medical r Neurology 03 l Records Paulo Alcazar 2020-11-30 2020-12-02 Outside nullFlavo MNA [id number] Memoria 17:03:43 04:59:59 Medical r Neurology 03 l Records Paulo Alcazar 2020-11-30 2020-12-01 Outpatient MHMISCHER MHMISCHER [id number] 12:03:43 23:59:59 03 2020-11-30 2020-12-01 Outpatient MHMISCHER MHMISCHER [id number] 12:03:43 23:59:59 03 2020-11-12 2020-11-14 Outside nullFlavo MNA [id number] Memoria 13:52:31 04:59:59 Medical r Neurology 02 l Records Paulo Alcazar 2020-11-12 2020-11-14 Outside nullFlavo MNA [id number] Memoria 13:52:31 04:59:59 Medical r Neurology 02 l Records Paulo Alcazar 2020-11-12 2020-11-13 Outpatient MHMISCHER MHMISCHER [id number] 08:52:31 23:59:59 02 2020-11-12 2020-11-13 Outpatient MHMISCHER MHMISCHER [id number] 08:52:31 23:59:59 02 2020-10-26 2020-10-26 [facility] [id number] Common 00:00:00 00:00:00 [facility] 2020-10-22 2020-10-24 Outside nullFlavo MNA [id number] Memoria 21:10:49 04:59:59 Medical r Neurology 01 l Records Paulo Reddingann 2020-10-22 2020-10-24 Outside nullFlavo MNA [id number] Memoria 21:10:49 04:59:59 Medical r Neurology 01 l Records Paulo Reddingann 2020-10-22 2020-10-23 Outpatient MHMISCHER MHMISCHER [id number] 16:10:49 23:59:59 2020-10-22 2020-10-23 Outpatient MHMISCHER MHMISCHER [id number] 16:10:49 23:59:59 2020-10-19 2020-10-21 Outside nullFlavo MNA [id number] Memoria 15:35:15 04:59:59 Medical r Neurology 00 l Records Paulo Alcazar 2020-10-19 2020-10-21 Outside nullFlavo MNA [id number] Memoria 15:35:15 04:59:59 Medical r Neurology 00 l Records Paulo Reddingann 2020-10-19 2020-10-20 Outpatient MHMISCHER MHMISCHER [id number] 10:35:15 23:59:59 00 2020-10-19 2020-10-20 Outpatient MHMISCHER MHMISCHER [id number] 10:35:15 23:59:59 00 2020-10-14 2020-10-15 Outpatient nullFlavo MNA [id number] Memoria 15:15:00 05:59:59 r Neurology 03 l Paulo Alcazar 2020-10-14 2020-10-15 Outpatient nullFlavo MNA [id number] Memoria 15:15:00 05:59:59 r Neurology 03 l Paulo Reddingann 2020-10-14 2020-10-14 Outpatient RUSSELL FontanaMISCHER MHMISCHER [id number] 09:15:00 23:59:59 Yaniv 03 Gasper 2020-10-14 2020-10-14 Outpatient SAMUEL FontanaSCHER MHMISCHER [id number] 09:15:00 23:59:59 Yaniv 03 Gasper 2020-10-14 2020-10-14 Outpatient MHIE MHIE [id number] Memoria 09:15:00 09:15:00 03 owen ReddingOttoniel 2020-10-14 2020-10-14 Outpatient MHIE MHIE [id number] Memoria 09:15:00 09:15:00 03 owen Alcazar 2020-09-23 2020-09-24 Outpatient nullFlavo MNA [id number] Memoria 16:15:00 05:59:59 r Neurology 02 l Paulo Reddingann 2020-09-23 2020-09-24 Outpatient nullFlavo MNA [id number] Memoria 16:15:00 05:59:59 r Neurology 02 l Paulo Reddingann 2020-09-23 2020-09-23 Outpatient RUSSELL FontanaMISCHER MHMISCHER [id number] 10:15:00 23:59:59 Yaniv Gasper 2020-09-23 2020-09-23 Outpatient RUSSELL FontanaMISCHER MHMISCHER [id number] 10:15:00 23:59:59 Yaniv Gasper 2020-09-23 2020-09-23 Outpatient MHIE MHIE [id number] Memoria 10:15:00 10:15:00 02 l Ottoniel 2020-09-23 2020-09-23 Outpatient MHIE MHIE [id number] Memoria 10:15:00 10:15:00 02 l Ottoniel 2020-08-03 2020-08-04 Outpatient nullFlavo MNA [id number] Memoria 22:00:00 05:59:59 r Neurology 01 l Paluo Alcazar 2020-08-03 2020-08-04 Outpatient nullFlavo MNA [id number] Memoria 22:00:00 05:59:59 r Neurology 01 l Paulo Alcazar 2020-08-03 2020-08-03 Outpatient Addi, MHMISCHER MHMISCHER [id number] 16:00:00 23:59:59 Yaniv 2020-08-03 2020-08-03 Outpatient Addi, MHMISCHER MHMISCHER [id number] 16:00:00 23:59:59 Yaniv 2020-08-03 2020-08-03 Outpatient MHIE MHIE [id number] Memoria 16:00:00 16:00:00 01 l Ottoniel 2020-08-03 2020-08-03 Outpatient MHIE MHIE [id number] Memoria 16:00:00 16:00:00 01 l Newcomb 2020-07-20 2020-07-20 Outpatient STLMLC STLMLC [id number] Common 00:00:00 00:00:00 [facility] 2020-06-17 2020-06-18 Outpatient nullFlavo MNA [id number] Memoria 15:15:00 05:59:59 r Neurology 00 l [place] Newcomb 2020-06-17 2020-06-18 Outpatient nullFlavo MNA [id number] Memoria 15:15:00 05:59:59 r Neurology 00 l [place] Ottoniel 2020-06-17 2020-06-17 Outpatient Addi, MHMISCHER MHMISCHER [id number] 09:15:00 23:59:59 Yaniv 00 Gasper 2020-06-17 2020-06-17 Outpatient Addi, MHMISCHER MHMISCHER [id number] 09:15:00 23:59:59 Yaniv Gasper 2020-06-17 2020-06-17 Outpatient MHIE MHIE [id number] Memoria 09:15:00 09:15:00 00 [facility] 2020-06-17 2020-06-17 Outpatient MHIE MHIE [id number] Memoria 09:15:00 09:15:00 00 [facility] 2020-02-23 2020-02-23 [facility] [id number] Common 09:00:00 09:00:00 [facility] 2019-09-15 2019-09-27 Inpatient nullFlavo [facility] [id number] Memoria 17:37:00 00:48:[address] 2019-09-15 2019-09-27 Inpatient nullFlavo [facility] [id number] Memoria 17:37:00 00:48:[address] 2019-09-15 2019-09-26 [facility] [id number] 11:37:00 18:48:[address] 2019-09-15 2019-09-26 [facility] [id number] 11:37:00 18:48:00 [facility] [address] [place] [address] 2019-09-15 2019-09-15 Outpatient [facility] [id number] [facility] 13:19:00 13:19:00 2019-09-15 2019-09-15 Inpatient E [facility] [id number] [facility] 13:54:00 11:12:00 2019-09-09 2019-09-09 [facility] [id number] Common 10:43:00 10:43:00 t [facility] 2019-09-01 2019-09-01 [facility] [id number] Common 15:00:00 15:00:00 t [facility] Results Test Description Test Time Test Comments Results Result Comments Source CHEM PANEL 2019-09-25 11:51:00 Test Item Value Reference Range Interpretation Comme nts Glucose Lvl (test code = Glucose Lvl) 91 70-99 [facility] [id number] 11:51:00 Test Item Value Reference Range Interpretation Comments BUN (test code = BUN) 14 02-24 [facility] [id number] 11:51:00 Test Item Value Reference Range Interpretation Comments Creatinine Lvl (test code = Creatinine 0.68 0.50-1.40 Lvl) [facility] [id number] 11:51:00 Test Item Value Reference Range Interpretation Comments Sodium Lvl (test code = Sodium Lvl) 135 135-145 [facility] [id number] 11:51:00 Test Item Value Reference Range Interpretation Comments Potassium Lvl (test code = Potassium 4.4 3.5-5.1 Lvl) [facility] [id number] 11:51:00 Test Item Value Reference Range Interpretation Comments Chloride Lvl (test code = Chloride Lvl) 103 95-109 [facility] [id number] 11:51:00 Test Item Value Reference Range Interpretation Comments CO2 (test code = CO2) 28 24-32 [facility] [id number] 11:51:00 Test Item Value Reference Range Interpretation Comments Calcium Lvl (test code = Calcium Lvl) 9.2 8.5-10.5 [facility] [id number] 11:51:00 Test Item Value Reference Range Interpretation Comments AGAP (test code = AGAP) 8.4 10.0-20.0 [facility] [id number] 11:51:00 Test Item Value Reference Range Interpretation Comments eGFR (test code = eGFR) 81 [facility] [id number] 11:51:00 Test Item Value Reference Range Interpretation Comments Magnesium Lvl (test code = Magnesium 1.7 1.8-2.4 Lvl) [facility] [id number] 11:51:00 Test Item Value Reference Range Interpretation Comments Phosphorus (test code = Phosphorus) 3.7 2.5-4.5 [facility] [id number] 11:51:00 Test Item Value Reference Range Interpretation Comments Glucose Lvl (test code = Glucose Lvl) 91 70-99 [facility] [id number] 11:51:00 Test Item Value Reference Range Interpretation Comments BUN (test code = BUN) 14 -22 [facility]2020-02-20 11:51:00 Test Item Value Reference Range Interpretation Comments Creatinine Lvl (test code = Creatinine 0.68 0.50-1.40 Lvl) [facility]2020-02-20 11:51:00 Test Item Value Reference Range Interpretation Comments Sodium Lvl (test code = Sodium Lvl) 135 135-145 [place] [id number] 11:51:00 Test Item Value Reference Range Interpretation Comments Potassium Lvl (test code = Potassium 4.4 3.5-5.1 Lvl) [facility]2020-02-20 11:51:00 Test Item Value Reference Range Interpretation Comments Chloride Lvl (test code = Chloride Lvl) 103 95-109 [place] [id number] 11:51:00 Test Item Value Reference Range Interpretation Comments CO2 (test code = CO2) 28 24-32 [place] [id number] 11:51:00 Test Item Value Reference Range Interpretation Comments Calcium Lvl (test code = Calcium Lvl) 9.2 8.5-10.5 [facility]2020-02-20 11:51:00 Test Item Value Reference Range Interpretation Comments AGAP (test code = AGAP) 8.4 10.0-20.0 [facility]2020-02-20 11:51:00 Test Item Value Reference Range Interpretation Comments eGFR (test code = eGFR) 81 [place] [id number] 11:51:00 Test Item Value Reference Range Interpretation Comments Magnesium Lvl (test code = Magnesium 1.7 1.8-2.4 Lvl) [facility]2020-02-20 11:51:00 Test Item Value Reference Range Interpretation Comments Phosphorus (test code = Phosphorus) 3.7 2.5-4.5 [place] [id number] 10:10:00 Test Item Value Reference Range Interpretation Comments Phosphorus (test code = Phosphorus) 2.1 2.5-4.5 [place] [id number] 10:10:00 Test Item Value Reference Range Interpretation Comments Glucose Lvl (test code = Glucose Lvl) 100 70-99 [place] [id number] 10:10:00 Test Item Value Reference Range Interpretation Comments BUN (test code = BUN) 12 7-22 [facility]2020-02-16 10:10:00 Test Item Value Reference Range Interpretation Comments Creatinine Lvl (test code = Creatinine 0.58 0.50-1.40 Lvl) [facility]2020-02-16 10:10:00 Test Item Value Reference Range Interpretation Comments Sodium Lvl (test code = Sodium Lvl) 140 135-145 [facility]2020-02-16 10:10:00 Test Item Value Reference Range Interpretation Comments Potassium Lvl (test code = Potassium 3.4 3.5-5.1 Lvl) [facility]2020-02-16 10:10:00 Test Item Value Reference Range Interpretation Comments Chloride Lvl (test code = Chloride Lvl) 107 95-109 [facility]2020-02-16 10:10:00 Test Item Value Reference Range Interpretation Comments CO2 (test code = CO2) 27 24-32 [facility]2020-02-16 10:10:00 Test Item Value Reference Range Interpretation Comments Calcium Lvl (test code = Calcium Lvl) 8.7 8.5-10.5 [facility]2020-02-16 10:10:00 Test Item Value Reference Range Interpretation Comments AGAP (test code = AGAP) 9.4 10.0-20.0 [facility]2020-02-16 10:10:00 Test Item Value Reference Range Interpretation Comments eGFR (test code = eGFR) 85 [facility]2020-02-16 10:10:00 Test Item Value Reference Range Interpretation Comments Magnesium Lvl (test code = Magnesium 1.8 1.8-2.4 Lvl) [id number] 10:10:00 Test Item Value Reference Range Interpretation Comments Segs (test code = Segs) 70.6 45.0-75.0 [place] [id number] 10:10:00 Test Item Value Reference Range Interpretation Comments Lymphocytes (test code = Lymphocytes) 18.4 20.0-40.0 [place] [id number] 10:10:00 Test Item Value Reference Range Interpretation Comments Monocytes (test code = Monocytes) 7.3 2.0-12.0 [place] [id number] 10:10:00 Test Item Value Reference Range Interpretation Comments Eosinophils (test code = 3.1 See_Comment [A utomated message] The Eosinophils) system which ge nerated this result tra nsmitted reference range : <=4.0. The reference r natasha was not used to int erpret this result as normal/abnormal . [facility] Re[id number] 10:10:00 Test Item Value Reference Range Interpretation Comments Basophils (test code = 0.6 See_Comment [Aut omated message] The Basophils) system which ge nerated this result tra nsmitted reference range : <=1.0. The reference r natasha was not used to int erpret this result as normal/abnormal . [facility] [id number] 10:10:00 Test Item Value Reference Range Interpretation Comments Neutrophils # (test code = Neutrophils 5.8 1.5-8.1 #) [facility] [id number] 10:10:00 Test Item Value Reference Range Interpretation Comments Lymphocytes # (test code = Lymphocytes 1.5 1.0-5.5 #) [facility] [id number] 10:10:00 Test Item Value Reference Range Interpretation Comments Monocytes # (test code 0.6 See_Comment [Aut omated message] The = Monocytes #) system which generated this result tra nsmitted reference range : <=0.8. The reference r natasha was not used to int erpret this result as normal/abnormal . [facility] R[id number] 10:10:00 Test Item Value Reference Range Interpretation Comments Eosinophils # (test code 0.3 See_Comment [A utomated message] The = Eosinophils #) system whic h generated this result tra nsmitted reference range : <=0.5. The reference r natasha was not used to int erpret this result as normal/abnormal . [facility] Re[id number] 10:10:00 Test Item Value Reference Range Interpretation Comments WBC (test code = WBC) 8.2 3.7-10.4 [facility] Re[id number] 10:10:00 Test Item Value Reference Range Interpretation Comments RBC (test code = RBC) 3.65 4.20-5.40 [facility] R[id number] 10:10:00 Test Item Value Reference Range Interpretation Comments Hgb (test code = Hgb) 12.1 12.0-16.0 [id number] 10:10:00 Test Item Value Reference Range Interpretation Comments Hct (test code = Hct) 35.9 36.0-48.0 [facility] Re[id number] 10:10:00 Test Item Value Reference Range Interpretation Comments MCV (test code = MCV) 98.4 80.0-98.0 [facility] R[id number] 10:10:00 Test Item Value Reference Range Interpretation Comments MCH (test code = MCH) 33.1 pg 27.0-31.0 [facility] ResourcesOufeyqhEJRDFJXWSY0893-06-76 10:10:00 Test Item Value Reference Range Interpretation Comments MCHC (test code = MCHC) 33.7 32.0-36.0 [facility] Re[id number] 10:10:00 Test Item Value Reference Range Interpretation Comments RDW (test code = RDW) 12.9 11.5-14.5 [facility] Re[id number] 10:10:00 Test Item Value Reference Range Interpretation Comments Platelet (test code = Platelet) 217 133-450 [facility] Re[id number] 10:10:00 Test Item Value Reference Range Interpretation Comments MPV (test code = MPV) 9.3 7.4-10.4 [facility] [id number] 10:10:00 Test Item Value Reference Range Interpretation Comments Ca Ion WB (test code = Ca Ion WB) 1.20 1.05-1.25 [facility]nePARATHYRO[facility] [id number] 10:10:00 Test Item Value Reference Range Interpretation Comments Ca Norm WB (test code = Ca Norm WB) 1.20 1.05-1.25 [facility] [id number] 10:10:00 Test Item Value Reference Range Interpretation Comments Phosphorus (test code = Phosphorus) 2.1 2.5-4.5 [facility]2020-02-16 10:10:00 Test Item Value Reference Range Interpretation Comments Glucose Lvl (test code = Glucose Lvl) 100 70-99 [facility]2020-02-16 10:10:00 Test Item Value Reference Range Interpretation Comments BUN (test code = BUN) 12 7-22 [facility]2020-02-16 10:10:00 Test Item Value Reference Range Interpretation Comments Creatinine Lvl (test code = Creatinine 0.58 0.50-1.40 Lvl) [facility]2020-02-16 10:10:00 Test Item Value Reference Range Interpretation Comments Sodium Lvl (test code = Sodium Lvl) 140 135-145 [facility]2020-02-16 10:10:00 Test Item Value Reference Range Interpretation Comments Potassium Lvl (test code = Potassium 3.4 3.5-5.1 Lvl) [facility]2020-02-16 10:10:00 Test Item Value Reference Range Interpretation Comments Chloride Lvl (test code = Chloride Lvl) 107 95-109 [facility]2020-02-16 10:10:00 Test Item Value Reference Range Interpretation Comments CO2 (test code = CO2) 27 24-32 [facility]2020-02-16 10:10:00 Test Item Value Reference Range Interpretation Comments Calcium Lvl (test code = Calcium Lvl) 8.7 8.5-10.5 [facility]2020-02-16 10:10:00 Test Item Value Reference Range Interpretation Comments AGAP (test code = AGAP) 9.4 10.0-20.0 [facility]2020-02-16 10:10:00 Test Item Value Reference Range Interpretation Comments eGFR (test code = eGFR) 85 [facility]2020-02-16 10:10:00 Test Item Value Reference Range Interpretation Comments Magnesium Lvl (test code = Magnesium 1.8 1.8-2.4 Lvl) [facility]MfiehxzQHEVGSUEPG7029-28-99 10:10:00 Test Item Value Reference Range Interpretation Comments Segs (test code = Segs) 70.6 45.0-75.0 [place] [id number] 10:10:00 Test Item Value Reference Range Interpretation Comments Lymphocytes (test code = Lymphocytes) 18.4 20.0-40.0 [place] [id number] 10:10:00 Test Item Value Reference Range Interpretation Comments Monocytes (test code = Monocytes) 7.3 2.0-12.0 [place] 689890-02-16 10:10:00 Test Item Value Reference Range Interpretation Comments Eosinophils (test code = 3.1 See_Comment [A utomated message] The Eosinophils) system which ge nerated this result tra nsmitted reference range : <=4.0. The reference r natasha was not used to int erpret this result as normal/abnormal . [facility] ResourcesOexmvctIYYZORUOTC6818-86-40 10:10:00 Test Item Value Reference Range Interpretation Comments Basophils (test code = 0.6 See_Comment [Aut omated message] The Basophils) system which ge nerated this result tra nsmitted reference range : <=1.0. The reference r natasha was not used to int erpret this result as normal/abnormal . [facility] ResourcesCeshwqpOBXCIIYYEG3048-60-26 10:10:00 Test Item Value Reference Range Interpretation Comments Neutrophils # (test code = Neutrophils 5.8 1.5-8.1 #) [facility] ResourcesUnkhmkfBGWOGGWXOM0408-95-10 10:10:00 Test Item Value Reference Range Interpretation Comments Lymphocytes # (test code = Lymphocytes 1.5 1.0-5.5 #) [facility] ResourcesNevwwzpABCDQSTACJ3662-23-61 10:10:00 Test Item Value Reference Range Interpretation Comments Monocytes # (test code 0.6 See_Comment [Aut omated message] The = Monocytes #) system which generated this result tra nsmitted reference range : <=0.8. The reference r natasha was not used to int erpret this result as normal/abnormal . [facility] ResourcesOyazldoGUVRFGGKER9097-99-94 10:10:00 Test Item Value Reference Range Interpretation Comments Eosinophils # (test code 0.3 See_Comment [A utomated message] The = Eosinophils #) system whic h generated this result tra nsmitted reference range : <=0.5. The reference r natasha was not used to int erpret this result as normal/abnormal . [facility] ResourcesDjawdngBTEKQGNDPI7098-77-53 10:10:00 Test Item Value Reference Range Interpretation Comments WBC (test code = WBC) 8.2 3.7-10.4 [facility] ResourcesItdzusqHOMGXOZSJQ0255-41-17 10:10:00 Test Item Value Reference Range Interpretation Comments RBC (test code = RBC) 3.65 4.20-5.40 [facility] ResourcesNvkprxfVIZMHQBOYM5042-73-81 10:10:00 Test Item Value Reference Range Interpretation Comments Hgb (test code = Hgb) 12.1 12.0-16.0 [facility] ResourcesKcyqznmRTTAZUVSOV0451-68-37 10:10:00 Test Item Value Reference Range Interpretation Comments Hct (test code = Hct) 35.9 36.0-48.0 [facility] ResourcesJwowgfdMYLXROERDV5631-65-40 10:10:00 Test Item Value Reference Range Interpretation Comments MCV (test code = MCV) 98.4 80.0-98.0 [facility] ResourcesPaerwzoVKKWFFATVU6117-79-25 10:10:00 Test Item Value Reference Range Interpretation Comments MCH (test code = MCH) 33.1 pg 27.0-31.0 [facility] ResourcesUmrwuwsQZYWOOJDMR9058-99-22 10:10:00 Test Item Value Reference Range Interpretation Comments MCHC (test code = MCHC) 33.7 32.0-36.0 [facility] ResourcesYgnaypmLHUAMFLZZG9378-20-25 10:10:00 Test Item Value Reference Range Interpretation Comments RDW (test code = RDW) 12.9 11.5-14.5 [facility] ResourcesLkigmmnSFVZMUURXH5226-20-07 10:10:00 Test Item Value Reference Range Interpretation Comments Platelet (test code = Platelet) 217 133-450 [facility] ResourcesBytrynjXXGWZGBGTO1743-61-57 10:10:00 Test Item Value Reference Range Interpretation Comments MPV (test code = MPV) 9.3 7.4-10.4 [facility] AHKUZNZ8241-78-15 10:10:00 Test Item Value Reference Range Interpretation Comments Ca Ion WB (test code = Ca Ion WB) 1.20 1.05-1.25 [facility] ClubRO[facility] OCPVFAL3214-91-32 10:10:00 Test Item Value Reference Range Interpretation Comments Ca Norm WB (test code = Ca Norm WB) 1.20 1.05-1.25 [facility]2020-02-15 10:20:00 Test Item Value Reference Range Interpretation Comments Glucose Lvl (test code = Glucose Lvl) 105 70-99 [facility]2020-02-15 10:20:00 Test Item Value Reference Range Interpretation Comments BUN (test code = BUN) 10 7-22 [facility]2020-02-15 10:20:00 Test Item Value Reference Range Interpretation Comments Creatinine Lvl (test code = Creatinine 0.52 0.50-1.40 Lvl) [facility]2020-02-15 10:20:00 Test Item Value Reference Range Interpretation Comments Sodium Lvl (test code = Sodium Lvl) 140 135-145 [facility]2020-02-15 10:20:00 Test Item Value Reference Range Interpretation Comments Potassium Lvl (test code = Potassium 3.3 3.5-5.1 Lvl) [facility]2020-02-15 10:20:00 Test Item Value Reference Range Interpretation Comments Chloride Lvl (test code = Chloride Lvl) 105 95-109 [place] 533470-02-15 10:20:00 Test Item Value Reference Range Interpretation Comments CO2 (test code = CO2) 29 24-32 [facility]2020-02-15 10:20:00 Test Item Value Reference Range Interpretation Comments Calcium Lvl (test code = Calcium Lvl) 9.1 8.5-10.5 [facility]2020-02-15 10:20:00 Test Item Value Reference Range Interpretation Comments AGAP (test code = AGAP) 9.3 10.0-20.0 [facility]2020-02-15 10:20:00 Test Item Value Reference Range Interpretation Comments eGFR (test code = eGFR) 88 [facility]2020-02-15 10:20:00 Test Item Value Reference Range Interpretation Comments Glucose Lvl (test code = Glucose Lvl) 105 70-99 [facility]2020-02-15 10:20:00 Test Item Value Reference Range Interpretation Comments BUN (test code = BUN) 10 7-22 [facility]2020-02-15 10:20:00 Test Item Value Reference Range Interpretation Comments Creatinine Lvl (test code = Creatinine 0.52 0.50-1.40 Lvl) [facility]2020-02-15 10:20:00 Test Item Value Reference Range Interpretation Comments Sodium Lvl (test code = Sodium Lvl) 140 135-145 [facility]2020-02-15 10:20:00 Test Item Value Reference Range Interpretation Comments Potassium Lvl (test code = Potassium 3.3 3.5-5.1 Lvl) [facility]2020-02-15 10:20:00 Test Item Value Reference Range Interpretation Comments Chloride Lvl (test code = Chloride Lvl) 105 95-109 [facility]2020-02-15 10:20:00 Test Item Value Reference Range Interpretation Comments CO2 (test code = CO2) 29 24-32 [place] 533470-02-15 10:20:00 Test Item Value Reference Range Interpretation Comments Calcium Lvl (test code = Calcium Lvl) 9.1 8.5-10.5 [facility]2020-02-15 10:20:00 Test Item Value Reference Range Interpretation Comments AGAP (test code = AGAP) 9.3 10.0-20.0 [facility]2020-02-15 10:20:00 Test Item Value Reference Range Interpretation Comments eGFR (test code = eGFR) 88 [facility]2020-02-15 07:34:00 Test Item Value Reference Range Interpretation Comments Magnesium Lvl (test code = Magnesium 2.0 1.8-2.4 Lvl) [facility] ResourcesLyzduswHMWUTANSZH4530-24-87 07:34:00 Test Item Value Reference Range Interpretation Comments Segs (test code = Segs) 71.2 45.0-75.0 [place] [address]-02-15 07:34:00 Test Item Value Reference Range Interpretation Comments Lymphocytes (test code = Lymphocytes) 19.2 20.0-40.0 [place] [address]-02-15 07:34:00 Test Item Value Reference Range Interpretation Comments Monocytes (test code = Monocytes) 7.6 2.0-12.0 [place] 689890-02-15 07:34:00 Test Item Value Reference Range Interpretation Comments Eosinophils (test code = 1.6 See_Comment [A utomated message] The Eosinophils) system which ge nerated this result tra nsmitted reference range : <=4.0. The reference r natasha was not used to int erpret this result as normal/abnormal . [place] [address]-02-15 07:34:00 Test Item Value Reference Range Interpretation Comments Basophils (test code = 0.4 See_Comment [Aut omated message] The Basophils) system which ge nerated this result tra nsmitted reference range : <=1.0. The reference r natasha was not used to int erpret this result as normal/abnormal . [place] [address]-02-15 07:34:00 Test Item Value Reference Range Interpretation Comments Neutrophils # (test code = Neutrophils 5.2 1.5-8.1 #) [place] 689890-02-15 07:34:00 Test Item Value Reference Range Interpretation Comments Lymphocytes # (test code = Lymphocytes 1.4 1.0-5.5 #) [place] [address]-02-15 07:34:00 Test Item Value Reference Range Interpretation Comments Monocytes # (test code 0.6 See_Comment [Aut omated message] The = Monocytes #) system which generated this result tra nsmitted reference range : <=0.8. The reference r natasha was not used to int erpret this result as normal/abnormal . [address]02-15 07:34:00 Test Item Value Reference Range Interpretation Comments Eosinophils # (test code 0.1 See_Comment [A utomated message] The = Eosinophils #) system whic h generated this result tra nsmitted reference range : <=0.5. The reference r natasha was not used to int erpret this result as normal/abnormal . [place] [address]-02-15 07:34:00 Test Item Value Reference Range Interpretation Comments WBC (test code = WBC) 7.4 3.7-10.4 [place] [address]-02-15 07:34:00 Test Item Value Reference Range Interpretation Comments RBC (test code = RBC) 3.73 4.20-5.40 [place] [address]-02-15 07:34:00 Test Item Value Reference Range Interpretation Comments Hgb (test code = Hgb) 12.4 12.0-16.0 [place] [address]-02-15 07:34:00 Test Item Value Reference Range Interpretation Comments Hct (test code = Hct) 36.3 36.0-48.0 [place] [address]-02-15 07:34:00 Test Item Value Reference Range Interpretation Comments MCV (test code = MCV) 97.2 80.0-98.0 [place] [address]-02-15 07:34:00 Test Item Value Reference Range Interpretation Comments MCH (test code = MCH) 33.4 pg 27.0-31.0 [place] [address]-02-15 07:34:00 Test Item Value Reference Range Interpretation Comments MCHC (test code = MCHC) 34.3 32.0-36.0 [facility] CampusYtlxfmeOVKCNLDWBR1014-50-79 07:34:00 Test Item Value Reference Range Interpretation Comments RDW (test code = RDW) 13.6 11.5-14.5 [facility] CampusYsnnvqjRGSYPSWOSK3343-68-70 07:34:00 Test Item Value Reference Range Interpretation Comments Platelet (test code = Platelet) 191 133-450 [facility]OggavlvBHIDGZPQHH6090-35-36 07:34:00 Test Item Value Reference Range Interpretation Comments MPV (test code = MPV) 10.1 7.4-10.4 [facility] CampusannPARATHYROID DWHTVNI5770-41-42 07:34:00 Test Item Value Reference Range Interpretation Comments Ca Ion WB (test code = Ca Ion WB) 1.02 1.05-1.25 [facility] CampusannPARATHYROID ZEWKNCC8613-10-88 07:34:00 Test Item Value Reference Range Interpretation Comments Ca Norm WB (test code = Ca Norm WB) 1.04 1.05-1.25 [facility] CampusannCHEM YZVUY8201-71-43 07:34:00 Test Item Value Reference Range Interpretation Comments Magnesium Lvl (test code = Magnesium 2.0 1.8-2.4 Lvl) [facility]YnwxbglMAGABNFRGK6500-57-48 07:34:00 Test Item Value Reference Range Interpretation Comments Segs (test code = Segs) 71.2 45.0-75.0 [facility]nePkpbrfdPNMSYMZDUX4286-10-33 07:34:00 Test Item Value Reference Range Interpretation Comments Lymphocytes (test code = Lymphocytes) 19.2 20.0-40.0 [facility]neBzkhibuSIPKKIEYDW0357-14-66 07:34:00 Test Item Value Reference Range Interpretation Comments Monocytes (test code = Monocytes) 7.6 2.0-12.0 [facility]neBdbmhxdVILUJRSPYU7612-22-01 07:34:00 Test Item Value Reference Range Interpretation Comments Eosinophils (test code = 1.6 See_Comment [A utomated message] The Eosinophils) system which ge nerated this result tra nsmitted reference range : <=4.0. The reference r natasha was not used to int erpret this result as normal/abnormal . [facility] ResourcesZgmzyjsQTVVMVHDXN8992-00-10 07:34:00 Test Item Value Reference Range Interpretation Comments Basophils (test code = 0.4 See_Comment [Aut omated message] The Basophils) system which ge nerated this result tra nsmitted reference range : <=1.0. The reference r natasha was not used to int erpret this result as normal/abnormal . [place] 689890-02-15 07:34:00 Test Item Value Reference Range Interpretation Comments Neutrophils # (test code = Neutrophils 5.2 1.5-8.1 #) [facility] ResourcesSuxxnvaKINWQYKJEY7788-67-11 07:34:00 Test Item Value Reference Range Interpretation Comments Lymphocytes # (test code = Lymphocytes 1.4 1.0-5.5 #) [place] 689890-02-15 07:34:00 Test Item Value Reference Range Interpretation Comments Monocytes # (test code 0.6 See_Comment [Aut omated message] The = Monocytes #) system which generated this result tra nsmitted reference range : <=0.8. The reference r natasha was not used to int erpret this result as normal/abnormal . [facility]MhhaicvMCFQYLLIFQ0496-57-82 07:34:00 Test Item Value Reference Range Interpretation Comments Eosinophils # (test code 0.1 See_Comment [A utomated message] The = Eosinophils #) system whic h generated this result tra nsmitted reference range : <=0.5. The reference r natasha was not used to int erpret this result as normal/abnormal . [facility] ResourcesRsdcvybLJFABEBEGS9127-91-52 07:34:00 Test Item Value Reference Range Interpretation Comments WBC (test code = WBC) 7.4 3.7-10.4 [place] 689890-02-15 07:34:00 Test Item Value Reference Range Interpretation Comments RBC (test code = RBC) 3.73 4.20-5.40 [place] [address]-02-15 07:34:00 Test Item Value Reference Range Interpretation Comments Hgb (test code = Hgb) 12.4 12.0-16.0 [place] [address]-02-15 07:34:00 Test Item Value Reference Range Interpretation Comments Hct (test code = Hct) 36.3 36.0-48.0 [place] [address]-02-15 07:34:00 Test Item Value Reference Range Interpretation Comments MCV (test code = MCV) 97.2 80.0-98.0 [facility] CampusStbacrcFWJNAREOJO8584-22-56 07:34:00 Test Item Value Reference Range Interpretation Comments MCH (test code = MCH) 33.4 pg 27.0-31.0 [facility] CampusHuhesxpTMHNJJMMZP2623-32-43 07:34:00 Test Item Value Reference Range Interpretation Comments MCHC (test code = MCHC) 34.3 32.0-36.0 [facility] CampusKoqhwajIUSLZJFAFI2129-44-26 07:34:00 Test Item Value Reference Range Interpretation Comments RDW (test code = RDW) 13.6 11.5-14.5 [facility] CampusDtbnyvhSYNMEOOXAS0157-86-81 07:34:00 Test Item Value Reference Range Interpretation Comments Platelet (test code = Platelet) 191 133-450 [facility]ZpucdqcSDQSHJMMSN5358-57-73 07:34:00 Test Item Value Reference Range Interpretation Comments MPV (test code = MPV) 10.1 7.4-10.4 [facility] CampusannPARATHYROID TKCEHZS6964-63-87 07:34:00 Test Item Value Reference Range Interpretation Comments Ca Ion WB (test code = Ca Ion WB) 1.02 1.05-1.25 [facility] CampusannPARATHYROID EVYRUVO4217-60-38 07:34:00 Test Item Value Reference Range Interpretation Comments Ca Norm WB (test code = Ca Norm WB) 1.04 1.05-1.25 [facility]neCARDIAC OZDLQXP5896-63-67 14:22:00 Test Item Value Reference Range Interpretation Comments Troponin-I (test code 0.19 See_Comment [Auto mated message] The = Troponin-I) system which g enerated this result transmit evelio reference range : <=0.40. The reference r natasha was not used to interpr et this result as nataliia l/abnormal. [facility] CampusannCARDIAC FUDZEKW8260-42-31 14:22:00 Test Item Value Reference Range Interpretation Comments Troponin-I (test code 0.19 See_Comment [Auto mated message] The = Troponin-I) system which g enerated this result transmit evelio reference range : <=0.40. The reference r natasha was not used to interpr et this result as nataliia l/abnormal. [facility] CampusZaegahoVQXQMWVGKQ0375-69-22 11:04:00 Test Item Value Reference Range Interpretation Comments Segs (test code = Segs) 70.0 45.0-75.0 [facility] ResourcesNfmzqowGSMMJUEVRC5505-21-52 11:04:00 Test Item Value Reference Range Interpretation Comments Lymphocytes (test code = Lymphocytes) 19.6 20.0-40.0 [facility] ResourcesJyyccjmNQKFOWVXLQ1718-14-38 11:04:00 Test Item Value Reference Range Interpretation Comments Monocytes (test code = Monocytes) 8.7 2.0-12.0 [facility] ResourcesFynektmFZRWEOSYZJ5329-33-86 11:04:00 Test Item Value Reference Range Interpretation Comments Eosinophils (test code = 1.3 See_Comment [A utomated message] The Eosinophils) system which ge nerated this result tra nsmitted reference range : <=4.0. The reference r natasha was not used to int erpret this result as normal/abnormal . [facility] ResourcesNfzhrzkVOFZFOHZWQ0078-58-79 11:04:00 Test Item Value Reference Range Interpretation Comments Basophils (test code = 0.4 See_Comment [Aut omated message] The Basophils) system which ge nerated this result tra nsmitted reference range : <=1.0. The reference r natasha was not used to int erpret this result as normal/abnormal . [facility]BgmlspfGYTVGYQRUG5126-93-71 11:04:00 Test Item Value Reference Range Interpretation Comments Neutrophils # (test code = Neutrophils 5.0 1.5-8.1 #) [facility]YjtlnyhFOMHXZELNG9864-18-47 11:04:00 Test Item Value Reference Range Interpretation Comments Lymphocytes # (test code = Lymphocytes 1.4 1.0-5.5 #) [facility] ResourcesExlfppoVFPKIWZTDN5327-48-24 11:04:00 Test Item Value Reference Range Interpretation Comments Monocytes # (test code 0.6 See_Comment [Aut omated message] The = Monocytes #) system which generated this result tra nsmitted reference range : <=0.8. The reference r natasha was not used to int erpret this result as normal/abnormal . [facility]YelpqoiUXWKJHHKMM6758-32-35 11:04:00 Test Item Value Reference Range Interpretation Comments Eosinophils # (test code 0.1 See_Comment [A utomated message] The = Eosinophils #) system whic h generated this result tra nsmitted reference range : <=0.5. The reference r natasha was not used to int erpret this result as normal/abnormal . [facility] ResourcesBpigargFQZASVYRQI5835-18-30 11:04:00 Test Item Value Reference Range Interpretation Comments WBC (test code = WBC) 7.1 3.7-10.4 [facility] ResourcesEfjfuiaCPEZOLEXUB3199-88-33 11:04:00 Test Item Value Reference Range Interpretation Comments RBC (test code = RBC) 3.72 4.20-5.40 [facility] ResourcesHdqskrfYYLREDWGDN1037-78-90 11:04:00 Test Item Value Reference Range Interpretation Comments Hgb (test code = Hgb) 12.4 12.0-16.0 [facility] ResourcesEbkcyujKOREKKFSZT7880-51-76 11:04:00 Test Item Value Reference Range Interpretation Comments Hct (test code = Hct) 36.6 36.0-48.0 [facility]YfugqhiHCRGSZWFSL1836-83-61 11:04:00 Test Item Value Reference Range Interpretation Comments MCV (test code = MCV) 98.4 80.0-98.0 [facility] ResourcesHdauqefTPJCCQWSCZ3866-68-55 11:04:00 Test Item Value Reference Range Interpretation Comments MCH (test code = MCH) 33.4 pg 27.0-31.0 [facility] ResourcesQnfvrrrYROTDQZENK4971-68-63 11:04:00 Test Item Value Reference Range Interpretation Comments MCHC (test code = MCHC) 34.0 32.0-36.0 [facility] ResourcesFtjvqunZZWDQSHDKX6928-64-67 11:04:00 Test Item Value Reference Range Interpretation Comments RDW (test code = RDW) 13.1 11.5-14.5 [facility]YhuajgyTRIQQGOJPO5272-18-88 11:04:00 Test Item Value Reference Range Interpretation Comments Platelet (test code = Platelet) 202 133-450 [facility] ResourcesAarrmgdGRMMOWUXFX1727-16-15 11:04:00 Test Item Value Reference Range Interpretation Comments MPV (test code = MPV) 8.6 7.4-10.4 [facility] ResourcesCrdbkelORWUUBLRXU1902-02-64 11:04:00 Test Item Value Reference Range Interpretation Comments Segs (test code = Segs) 70.0 45.0-75.0 [facility] ResourcesAuxxdcwAVPNRVBKPY6769-48-19 11:04:00 Test Item Value Reference Range Interpretation Comments Lymphocytes (test code = Lymphocytes) 19.6 20.0-40.0 [facility] ResourcesVmvowfgIBGBIJNIEG4141-95-25 11:04:00 Test Item Value Reference Range Interpretation Comments Monocytes (test code = Monocytes) 8.7 2.0-12.0 [facility]VsnjopaXVPQCJKRZQ7489-91-37 11:04:00 Test Item Value Reference Range Interpretation Comments Eosinophils (test code = 1.3 See_Comment [A utomated message] The Eosinophils) system which ge nerated this result tra nsmitted reference range : <=4.0. The reference r natasha was not used to int erpret this result as normal/abnormal . [facility] ResourcesWjnqbfaOGPFJGWFHR0342-41-23 11:04:00 Test Item Value Reference Range Interpretation Comments Basophils (test code = 0.4 See_Comment [Aut omated message] The Basophils) system which ge nerated this result tra nsmitted reference range : <=1.0. The reference r natasha was not used to int erpret this result as normal/abnormal . [facility]NjswlytTTXEBAUOAJ6266-99-15 11:04:00 Test Item Value Reference Range Interpretation Comments Neutrophils # (test code = Neutrophils 5.0 1.5-8.1 #) [facility]TgkfrhxCPWWXLYESG3348-95-11 11:04:00 Test Item Value Reference Range Interpretation Comments Lymphocytes # (test code = Lymphocytes 1.4 1.0-5.5 #) [facility] ResourcesNbcqnsvTFIHUFYWVQ5724-56-31 11:04:00 Test Item Value Reference Range Interpretation Comments Monocytes # (test code 0.6 See_Comment [Aut omated message] The = Monocytes #) system which generated this result tra nsmitted reference range : <=0.8. The reference r natasha was not used to int erpret this result as normal/abnormal . [facility] ResourcesVwfeuxfYOZPJCMZJJ5329-29-03 11:04:00 Test Item Value Reference Range Interpretation Comments Eosinophils # (test code 0.1 See_Comment [A utomated message] The = Eosinophils #) system whic h generated this result tra nsmitted reference range : <=0.5. The reference r natasha was not used to int erpret this result as normal/abnormal . [facility] ResourcesVilshdfPTHKDKVPDH0079-10-88 11:04:00 Test Item Value Reference Range Interpretation Comments WBC (test code = WBC) 7.1 3.7-10.4 [facility] ResourcesXvbmdshYPYAHMMMXD0521-60-15 11:04:00 Test Item Value Reference Range Interpretation Comments RBC (test code = RBC) 3.72 4.20-5.40 [facility] ResourcesLmwklnjJTGQJMTPDG5416-12-71 11:04:00 Test Item Value Reference Range Interpretation Comments Hgb (test code = Hgb) 12.4 12.0-16.0 [facility] ResourcesHibqvxwPSULKQGNCX2930-31-17 11:04:00 Test Item Value Reference Range Interpretation Comments Hct (test code = Hct) 36.6 36.0-48.0 [facility] ResourcesGvpmwgdMIJQXGRDNW3180-13-31 11:04:00 Test Item Value Reference Range Interpretation Comments MCV (test code = MCV) 98.4 80.0-98.0 [facility] ResourcesHhpgrjtVCPEOJUDWS6041-00-15 11:04:00 Test Item Value Reference Range Interpretation Comments MCH (test code = MCH) 33.4 pg 27.0-31.0 [facility] ResourcesRgkdjkcOVAXXZOXEX9577-66-72 11:04:00 Test Item Value Reference Range Interpretation Comments MCHC (test code = MCHC) 34.0 32.0-36.0 [facility] ResourcesCzmasfzYYXOWJONWS4962-69-96 11:04:00 Test Item Value Reference Range Interpretation Comments RDW (test code = RDW) 13.1 11.5-14.5 [facility] ResourcesBfzudapUNCCHUSTFK1206-14-99 11:04:00 Test Item Value Reference Range Interpretation Comments Platelet (test code = Platelet) 202 133-450 [facility] ResourcesNnyuusuAGOZINOLIB5000-48-60 11:04:00 Test Item Value Reference Range Interpretation Comments MPV (test code = MPV) 8.6 7.4-10.4 [facility] [id number] 22:29:00 Test Item Value Reference Range Interpretation Comments Troponin-I (test code 0.34 See_Comment [Auto mated message] The = Troponin-I) system which g enerated this result transmit evelio reference range : <=0.40. The reference r natasha was not used to interpr et this result as nataliia l/abnormal. [facility] [id number] 22:29:00 Test Item Value Reference Range Interpretation Comments Troponin-I (test code 0.34 See_Comment [Auto mated message] The = Troponin-I) system which g enerated this result transmit evelio reference range : <=0.40. The reference r natasha was not used to interpr et this result as nataliia l/abnormal. [facility] [id number] 01:10:00 Test Item Value Reference Range Interpretation Comments Total Protein (test code = Total 6.0 6.4-8.4 Protein) [facility] [id number] 01:10:00 Test Item Value Reference Range Interpretation Comments Albumin Lvl (test code = Albumin Lvl) 2.5 3.5-5.0 [facility] [id number] 01:10:00 Test Item Value Reference Range Interpretation Comments ALT (test code = ALT) 26 See_Comment [Auto mated message] The system which ge nerated this result transmit evelio reference range : <=65. The reference range was not used to interpr et this result as nataliia l/abnormal. [facility] [id number] 01:10:00 Test Item Value Reference Range Interpretation Comments AST (test code = AST) 30 See_Comment [Auto mated message] The system which ge nerated this result transmit evelio reference range : <=37. The reference range was not used to interpr et this result as nataliia l/abnormal. [facility] [id number] 01:10:00 Test Item Value Reference Range Interpretation Comments Alk Phos (test code = Alk Phos) 55 39-136 [facility] [id number] 01:10:00 Test Item Value Reference Range Interpretation Comments Bili Total (test code = Bili Total) 0.3 0.2-1.3 [facility] [id number] 01:10:00 Test Item Value Reference Range Interpretation Comments B/C Ratio (test code = B/C Ratio) 26 1 6-25 [facility] [id number] 01:10:00 Test Item Value Reference Range Interpretation Comments Globulin (test code = Globulin) 3.5 2.7-4.2 [facility] [id number] 01:10:00 Test Item Value Reference Range Interpretation Comments A/G Ratio (test code = A/G Ratio) 0.7 1 0.7-1.6 [facility] [id number] 01:10:00 Test Item Value Reference Range Interpretation Comments Procalcitonin Lvl (test 0.06 See_Comment [Au tomated message] code = Procalcitonin Lvl) Th e system which generated this result transmitted ref erence range: <=0.10. The reference range was not used to interpr et this result as normal/abnormal . [facility] [id number] 01:10:00 Test Item Value Reference Range Interpretation Comments Total Protein (test code = Total 6.0 6.4-8.4 Protein) [facility] [id number] 01:10:00 Test Item Value Reference Range Interpretation Comments Albumin Lvl (test code = Albumin Lvl) 2.5 3.5-5.0 [facility] [id number] 01:10:00 Test Item Value Reference Range Interpretation Comments ALT (test code = ALT) 26 See_Comment [Auto mated message] The system which ge nerated this result transmit evelio reference range : <=65. The reference range was not used to interpr et this result as nataliia l/abnormal. [facility] [id number] 01:10:00 Test Item Value Reference Range Interpretation Comments AST (test code = AST) 30 See_Comment [Auto mated message] The system which ge nerated this result transmit evelio reference range : <=37. The reference range was not used to interpr et this result as nataliia l/abnormal. [facility] [id number] 01:10:00 Test Item Value Reference Range Interpretation Comments Alk Phos (test code = Alk Phos) 55 39-136 [facility] [id number] 01:10:00 Test Item Value Reference Range Interpretation Comments Bili Total (test code = Bili Total) 0.3 0.2-1.3 [facility] [id number] 01:10:00 Test Item Value Reference Range Interpretation Comments B/C Ratio (test code = B/C Ratio) 26 1 6-25 [facility] [id number] 01:10:00 Test Item Value Reference Range Interpretation Comments Globulin (test code = Globulin) 3.5 2.7-4.2 [facility] [id number] 01:10:00 Test Item Value Reference Range Interpretation Comments A/G Ratio (test code = A/G Ratio) 0.7 1 0.7-1.6 [facility]2020-02-13 01:10:00 Test Item Value Reference Range Interpretation Comments Procalcitonin Lvl (test 0.06 See_Comment [Au tomated message] code = Procalcitonin Lvl) Th e system which generated this result transmitted ref erence range: <=0.10. The reference range was not used to interpr et this result as normal/abnormal . [place] [id number] 06:09:00 Test Item Value Reference Range Interpretation Comments Lactic Acid Lvl (test code = Lactic 1.0 0.5-2.2 Acid Lvl) [place] [address]-02-12 06:09:00 Test Item Value Reference Range Interpretation Comments Lactic Acid Lvl (test code = Lactic 1.0 0.5-2.2 Acid Lvl) [place] 533470-02-11 19:34:00 Test Item Value Reference Range Interpretation Comments Procalcitonin Lvl (test 0.08 See_Comment [Au tomated message] code = Procalcitonin Lvl) Th e system which generated this result transmitted ref erence range: <=0.10. The reference range was not used to interpr et this result as normal/abnormal . [place] 533470-02-11 19:34:00 Test Item Value Reference Range Interpretation Comments Lactic Acid Lvl (test code = Lactic 2.1 0.5-2.2 Acid Lvl) [place] [address]-02-11 19:34:00 Test Item Value Reference Range Interpretation Comments Procalcitonin Lvl (test 0.08 See_Comment [Au tomated message] code = Procalcitonin Lvl) Th e system which generated this result transmitted ref erence range: <=0.10. The reference range was not used to interpr et this result as normal/abnormal . [place] 533470-02-11 19:34:00 Test Item Value Reference Range Interpretation Comments Lactic Acid Lvl (test code = Lactic 2.1 0.5-2.2 Acid Lvl) [place] [address]-02-11 15:33:00 Test Item Value Reference Range Interpretation Comments Lactic Acid Lvl (test code = Lactic 4.1 0.5-2.2 Acid Lvl) [place] 533470-02-11 15:33:00 Test Item Value Reference Range Interpretation Comments Lactic Acid Lvl (test code = Lactic 4.1 0.5-2.2 Acid Lvl) [place] 533470-02-11 11:25:00 Test Item Value Reference Range Interpretation Comments B/C Ratio (test code = B/C Ratio) 12 1 6-25 [place] 533470-02-11 11:25:00 Test Item Value Reference Range Interpretation Comments Total Protein (test code = Total 7.1 6.4-8.4 Protein) [place] 533470-02-11 11:25:00 Test Item Value Reference Range Interpretation Comments Albumin Lvl (test code = Albumin Lvl) 2.9 3.5-5.0 [place] 533470-02-11 11:25:00 Test Item Value Reference Range Interpretation Comments Globulin (test code = Globulin) 4.2 2.7-4.2 [place] 533470-02-11 11:25:00 Test Item Value Reference Range Interpretation Comments A/G Ratio (test code = A/G Ratio) 0.7 1 0.7-1.6 [place] 533470-02-11 11:25:00 Test Item Value Reference Range Interpretation Comments ALT (test code = ALT) 23 See_Comment [Auto mated message] The system which ge nerated this result transmit evelio reference range : <=65. The reference range was not used to interpr et this result as nataliia l/abnormal. [place] 533470-02-11 11:25:00 Test Item Value Reference Range Interpretation Comments AST (test code = AST) 36 See_Comment [Auto mated message] The system which ge nerated this result transmit evelio reference range : <=37. The reference range was not used to interpr et this result as nataliia l/abnormal. [place] 533470-02-11 11:25:00 Test Item Value Reference Range Interpretation Comments Alk Phos (test code = Alk Phos) 67 39-136 [place] 533470-02-11 11:25:00 Test Item Value Reference Range Interpretation Comments Bili Total (test code = Bili Total) 0.5 0.2-1.3 [place] 533470-02-11 11:25:00 Test Item Value Reference Range Interpretation Comments B/C Ratio (test code = B/C Ratio) 12 1 6-25 [place] 533470-02-11 11:25:00 Test Item Value Reference Range Interpretation Comments Total Protein (test code = Total 7.1 6.4-8.4 Protein) [place] 533470-02-11 11:25:00 Test Item Value Reference Range Interpretation Comments Albumin Lvl (test code = Albumin Lvl) 2.9 3.5-5.0 [facility]2020-02-11 11:25:00 Test Item Value Reference Range Interpretation Comments Globulin (test code = Globulin) 4.2 2.7-4.2 [facility]2020-02-11 11:25:00 Test Item Value Reference Range Interpretation Comments A/G Ratio (test code = A/G Ratio) 0.7 1 0.7-1.6 [place] 533470-02-11 11:25:00 Test Item Value Reference Range Interpretation Comments ALT (test code = ALT) 23 See_Comment [Auto mated message] The system which ge nerated this result transmit evelio reference range : <=65. The reference range was not used to interpr et this result as nataliia l/abnormal. [facility] [id number] 11:25:00 Test Item Value Reference Range Interpretation Comments AST (test code = AST) 36 See_Comment [Auto mated message] The system which ge nerated this result transmit evelio reference range : <=37. The reference range was not used to interpr et this result as nataliia l/abnormal. [facility] [id number] 11:25:00 Test Item Value Reference Range Interpretation Comments Alk Phos (test code = Alk Phos) 67 39-136 [facility] [id number] 11:25:00 Test Item Value Reference Range Interpretation Comments Bili Total (test code = Bili Total) 0.5 0.2-1.3 [place] 610580-02-10 20:51:00 Test Item Value Reference Range Interpretation Comments Trig (test code = Trig) 83 [place] 610580-02-10 20:51:00 Test Item Value Reference Range Interpretation Comments Chol (test code = Chol) 253 [facility] MqnsuvuOPYYCJ0121-04-90 20:51:00 Test Item Value Reference Range Interpretation Comments HDL (test code = HDL) 71 [facility] [id number] 20:51:00 Test Item Value Reference Range Interpretation Comments CHD Risk (test code = CHD Risk) 3.56 1 3.90-5.80 [facility] YmlbvpoLXGVAR7107-60-53 20:51:00 Test Item Value Reference Range Interpretation Comments LDL (Calculated) (test code = LDL 165 (Calculated)) [facility] FbzomooMNYYAV7401-40-14 20:51:00 Test Item Value Reference Range Interpretation Comments VLDL (test code = VLDL) 17 [facility] [id number] 20:51:00 Test Item Value Reference Range Interpretation Comments Hgb A1C (test code = Hgb A1C) 5.5 [facility] [id number] 20:51:00 Test Item Value Reference Range Interpretation Comments UA Color (test code = Light Yellow UA Color) *NA*(09/15/19 2:51 PM) [facility] [id number] 20:51:00 Test Item Value Reference Range Interpretation Comments UA Turbidity (test code = Clear (09/15/19 2:51 UA Turbidity) PM) [facility] [id number] 20:51:00 Test Item Value Reference Range Interpretation Comments UA Spec Grav (test code = UA Spec 1.015 1 Grav) [facility] [id number] 20:51:00 Test Item Value Reference Range Interpretation Comments UA pH (test code = UA pH) 8.0 1 5.0-8.0 [facility] [id number] 20:51:00 Test Item Value Reference Range Interpretation Comments UA Protein (test code = UA Protein) 30 mg/dL [facility] [id number] 20:51:00 Test Item Value Reference Range Interpretation Comments UA Ketones (test code = UA Negative mg/dL Ketones) [facility] [id number] 20:51:00 Test Item Value Reference Range Interpretation Comments UA Bili (test code = Negative *NA*(09/15/19 UA Bili) 2:51 PM) [facility] [id number] 20:51:00 Test Item Value Reference Range Interpretation Comments UA Blood (test code = Small *ABN*(09/15/19 UA Blood) 2:51 PM) [facility] [id number] 20:51:00 Test Item Value Reference Range Interpretation Comments UA Urobilinogen (test code = UA no gt 0.1-1.0 Urobilinogen) [facility] [id number] 20:51:00 Test Item Value Reference Range Interpretation Comments UA Nitrite (test code Negative (09/15/19 2:51 = UA Nitrite) PM) [facility] [id number] 20:51:00 Test Item Value Reference Range Interpretation Comments UA Leuk Est (test Negative (09/15/19 2:51 code = UA Leuk Est) PM) [facility] [id number] 20:51:00 Test Item Value Reference Range Interpretation Comments UA WBC (test code = 3 See_Comment [Automa evelio message] The UA WBC) system which ge nerated this result transmit evelio reference range : <=5. The reference range was not used to interpr et this result as nataliia l/abnormal. [facility] [id number] 20:51:00 Test Item Value Reference Range Interpretation Comments UA RBC (test code = 16 See_Comment [Automa evelio message] The UA RBC) system which ge nerated this result transmit evelio reference range : <=2. The reference range was not used to interpr et this result as nataliia l/abnormal. [facility] [id number] 20:51:00 Test Item Value Reference Range Interpretation Comments UA Sq Epi (test code = UA Sq Epi) None Seen [facility] [id number] 20:51:00 Test Item Value Reference Range Interpretation Comments UA Glucose (test code = UA Glucose) 50mg/dl [facility] CmlhqblMVHZIW9317-72-71 20:51:00 Test Item Value Reference Range Interpretation Comments Trig (test code = Trig) 83 [facility] [id number] 20:51:00 Test Item Value Reference Range Interpretation Comments Chol (test code = Chol) 253 [facility] QfrvadnRASNWD2036-31-66 20:51:00 Test Item Value Reference Range Interpretation Comments HDL (test code = HDL) 71 [facility] HxlmtskZCCPHZ7628-48-42 20:51:00 Test Item Value Reference Range Interpretation Comments CHD Risk (test code = CHD Risk) 3.56 1 3.90-5.80 [facility] QrkvberCNYHCI7035-26-19 20:51:00 Test Item Value Reference Range Interpretation Comments LDL (Calculated) (test code = LDL 165 (Calculated)) [facility] UtfhbmiVNFPBP2842-34-46 20:51:00 Test Item Value Reference Range Interpretation Comments VLDL (test code = VLDL) 17 1 [facility] [id number] 20:51:00 Test Item Value Reference Range Interpretation Comments Hgb A1C (test code = Hgb A1C) 5.5 [facility] [id number] 20:51:00 Test Item Value Reference Range Interpretation Comments UA Color (test code = Light Yellow UA Color) *NA*(09/15/19 2:51 PM) [facility] [id number] 20:51:00 Test Item Value Reference Range Interpretation Comments UA Turbidity (test code = Clear (09/15/19 2:51 UA Turbidity) PM) [facility] [id number] 20:51:00 Test Item Value Reference Range Interpretation Comments UA Spec Grav (test code = UA Spec 1.015 1 Grav) [facility] [id number] 20:51:00 Test Item Value Reference Range Interpretation Comments UA pH (test code = UA pH) 8.0 1 5.0-8.0 [facility] [id number] 20:51:00 Test Item Value Reference Range Interpretation Comments UA Protein (test code = UA Protein) 30 mg/dL [facility] [id number] 20:51:00 Test Item Value Reference Range Interpretation Comments UA Ketones (test code = UA Negative mg/dL Ketones) [facility] [id number] 20:51:00 Test Item Value Reference Range Interpretation Comments UA Bili (test code = Negative *NA*(09/15/19 UA Bili) 2:51 PM) [facility] [id number] 20:51:00 Test Item Value Reference Range Interpretation Comments UA Blood (test code = Small *ABN*(09/15/19 UA Blood) 2:51 PM) [facility] [id number] 20:51:00 Test Item Value Reference Range Interpretation Comments UA Urobilinogen (test code = UA no gt 0.1-1.0 Urobilinogen) [facility] [id number] 20:51:00 Test Item Value Reference Range Interpretation Comments UA Nitrite (test code Negative (09/15/19 2:51 = UA Nitrite) PM) [facility] [id number] 20:51:00 Test Item Value Reference Range Interpretation Comments UA Leuk Est (test Negative (09/15/19 2:51 code = UA Leuk Est) PM) [facility] [id number] 20:51:00 Test Item Value Reference Range Interpretation Comments UA WBC (test code = 3 See_Comment [Automa evelio message] The UA WBC) system which ge nerated this result transmit evelio reference range : <=5. The reference range was not used to interpr et this result as nataliia l/abnormal. [facility] [id number] 20:51:00 Test Item Value Reference Range Interpretation Comments UA RBC (test code = 16 See_Comment [Automa evelio message] The UA RBC) system which ge nerated this result transmit evelio reference range : <=2. The reference range was not used to interpr et this result as nataliia l/abnormal. [facility] [id number] 20:51:00 Test Item Value Reference Range Interpretation Comments UA Sq Epi (test code = UA Sq Epi) None Seen [facility] [id number] 20:51:00 Test Item Value Reference Range Interpretation Comments UA Glucose (test code = UA Glucose) 50mg/dl [facility]ann[facility]ARDIAC [id number] 17:55:35 Test Item Value Reference Range Interpretation Comments Total CK (test code = Total CK) 169 12-191 [facility] [id number] 17:55:35 Test Item Value Reference Range Interpretation Comments Troponin-I (test code no gt See_Comment [Auto mated message] The = Troponin-I) system which g enerated this result transmit evelio reference range : <=0.40. The reference r natasha was not used to interpr et this result as nataliia l/abnormal. [id number] 17:55:35 Test Item Value Reference Range Interpretation Comments PT (test code = PT) 12.2 s 12.0-14.7 [facility]OdxlsspLVNIFGXXJM4596-73-92 17:55:35 Test Item Value Reference Range Interpretation Comments INR (test code = INR) 0.91 1 0.85-1.17 [facility]WkswdfwYATRXAGTSH7907-90-33 17:55:35 Test Item Value Reference Range Interpretation Comments PTT (test code = PTT) 23.2 s 22.9-35.8 [facility] Ho[id number] 17:55:35 Test Item Value Reference Range Interpretation Comments RBC Morph (test code = Normal (09/15/19 11:55 RBC Morph) AM) [facility] HospitalQkfcjtcTRDMFIDYYD5726-39-66 17:55:35 Test Item Value Reference Range Interpretation Comments Plt Morph (test code = Normal (09/15/19 11:55 Plt Morph) AM) [facility] [id number] 17:55:35 Test Item Value Reference Range Interpretation Comments Total CK (test code = Total CK) 169 12-191 [facility] [id number] 17:55:35 Test Item Value Reference Range Interpretation Comments Troponin-I (test code no gt See_Comment [Auto mated message] The = Troponin-I) system which g enerated this result transmit evelio reference range : <=0.40. The reference r natasha was not used to interpr et this result as nataliia l/abnormal. [facility]ItmyshcKXPPVPWGQE6381-01-23 17:55:35 Test Item Value Reference Range Interpretation Comments PT (test code = PT) 12.2 s 12.0-14.7 [facility] HospitalNxpdqjxEYGTDXHQXE9187-51-52 17:55:35 Test Item Value Reference Range Interpretation Comments INR (test code = INR) 0.91 1 0.85-1.17 [facility] HospitalOijfiblVZTYYWYFCE9364-15-40 17:55:35 Test Item Value Reference Range Interpretation Comments PTT (test code = PTT) 23.2 s 22.9-35.8 [facility] HospitalBkpwtkuONFZSQVZMV5256-72-20 17:55:35 Test Item Value Reference Range Interpretation Comments RBC Morph (test code = Normal (09/15/19 11:55 RBC Morph) AM) [facility] ResourcesZfesugoUAIWSGDIQF5285-42-74 17:55:35 Test Item Value Reference Range Interpretation Comments Plt Morph (test code = Normal (09/15/19 11:55 Plt Morph) AM) [facility]
--- NOTE | 2022-07-20 19:28 | RAD REPORT ---
EXAM DESCRIPTION: RAD - Elbow Left 2 View - 07/20/2022 7:18 pm CLINICAL HISTORY: PAIN COMPARISON: No comparisons FINDINGS/IMPRESSION: Single image obtained in a mixed lateral/oblique position. The patient has a hi story of contractures as result of previous stroke. No clear evidence of fracture seen. Depending on the level of clinical suspicion, CT could better evaluate due to the radiographic limitations.
--- NOTE | 2022-07-20 19:29 | RAD REPORT ---
EXAM DESCRIPTION: RAD - Knee Left 3 View - 07/20/2022 7:18 pm CLINICAL HISTORY: PAIN COMPARISON: No comparisons FINDINGS/IMPRESSION: Intact left knee arthroplasty. No acute fracture. No malalignment.
--- NOTE | 2022-07-20 19:36 | RAD REPORT ---
EXAM DESCRIPTION: CT - Head C Spine Cap Ravi Kwon - 07/20/2022 7:18 pm CLINICAL HISTORY: Trauma, head and neck injury. Chest, abdomen and pelvis pain. Head contusion, left rib pain, left hip pain COMPARISON: No comparisons TECHNIQUE: CT head without contrast. CT cervical spine without contrast with coronal and sagittal reformatted images. CT chest, abdomen and pelvis with coronal and sagittal reformatted images of the spine. All CT scans are performed using dose optimization technique as appropriate and may include automated exposure control or mA/KV adjustment according to patient size. FINDINGS: CT HEAD WITHOUT CONTRAST: No intracranial hemorrhage, hydrocephalus or extra-axial fluid collection. Large remote right MCA ter ritory infarct. The paranasal sinuses and mastoids are clear. The calvarium is intact. CT CERVICAL SPINE WITHOUT CONTRAST: No fracture or subluxation. Pannus formation at C1-C2. No central spinal stenosis identified. Multile sharon cervical spondylosis is present. Varying degrees of neural foraminal narrowing noted. This is mos t advanced at the C4-5 and C5-6 levels. The prevertebral soft tissues are normal in thickness.Multinodular thyroid. CT CHEST, ABDOMEN, PELVIS: Thorax: Chest Wall: No abnormal mass Lungs: No acute abnormality. Pleura: Tiny bilateral pleural effusions. Jacquelyn/Mediastinum: No lymphadenopathy. Aorta/Pulmonary Arteries: Unremarkable Heart: Normal heart size. Aortic valve calcifications . Multi-vessel coronary artery disease. Pericar dial effusion. Abdomen/Pelvis: Liver: No acute abnormality or suspicious lesions. Biliary: Cholecystectomy. Stomach: No significant focal abnormality. Duodenum: No significant focal abnormality. Pancreas: No significant abnormality. Spleen: No significant abnormality. Adrenal: No suspicious lesions. Kidney/ureter: No hydronephrosis. No renal calculi. Retroperitoneum: No retroperitoneal adenopathy. Vascular: No aneurysm. Bowel: Diverticulosis. No evidence of acute diverticulitis .. Peritoneum: Fat containing ventral hernia. Small fat containing inguinal hernias. Bladder: Grossly unremarkable. Reproductive: Hysterectomy. Bones: Advanced shoulder degenerative changes are noted. Minimally displaced left lateral ninth rib f racture. Other: n/a IMPRESSION: 1. Minimally displaced left lateral ninth rib fracture. No other evidence of significant acute trauma is identified within the chest, abdomen, or pelvis. 2. No acute intracranial abnormality. 3. No fracture or traumatic malalignment of the cervical spine.
[2022-07-20] MEDS ORDERED: HYDROCODONE/APAP 5/325 MG TAB ONE (20:29)
--- NOTE | 2022-07-20 20:43 | ER ---
Nurse's Notes [facility] Name: Nai Ragland Age: 86 yrs Sex: Female : 1935 Arrival Date: 07/20/2022 Time: 18:10 Bed 6 Private MD: Diagnosis: Fracture of one rib, left side;Fall from non-moving wheelchair Presentation: 07/20 18:12 Chief complaint: EMS states: FALL FROM WHEELCHAIR AT [facility]. Coronavirus screen: At bp this time, the client does not indicate any symptoms associated with coronavirus-19. Ebola Screen: No symptoms or risks identified at this time. Initial Sepsis Screen: Does the patient meet any 2 criteria? No. Patient's initial sepsis screen is negative. Does the patient have a suspected source of infection? No. Patient's initial sepsis screen is negative. Risk Assessment: Do you want to hurt yourself or someone else? Patient reports no desire to harm self or others. Onset of symptoms was July 20, 2022 at 18:00. 18:12 Method Of Arrival: EMS: [facility] bp 18:12 Acuity: JT 3 bp Triage Assessment: 18:13 General: Appears in no apparent distress. uncomfortable, obese, Behavior is calm, bp cooperative, appropriate for age. Pain: Complains of pain in left lateral anterior chest, left hip and left hand. EENT: No deficits noted. Neuro: Level of Consciousness is awake, alert, obeys commands, Oriented to Appropriate for age L SIDED DEFICITS POST CVA. Cardiovascular: No deficits noted. Respiratory: No deficits noted. GI: No signs and/or symptoms were reported involving the gastrointestinal system. : No signs and/or symptoms were reported regarding the genitourinary system. Derm: No deficits noted. Musculoskeletal: No deficits noted. Historical: - Allergies: 18:13 No Known Allergies; bp - PMHx: 18:13 Asthma; CVA; Gastroesophageal reflux disease; Hypertension; bp - PSHx: 18:13 ABRIL knee; bp - Immunization history:: Adult Immunizations up to date. - Social history:: Smoking status: Patient denies any tobacco usage or history of. Screenin:15 [facility] ED Fall Risk Assessment (Adult) History of falling in the last 3 months, bp including since admission Yes- single mechanical fall (1 pt) Confusion or Disorientation No (0 pts) Intoxicated or Sedated No (0 pts) Impaired Gait Yes (1 pt) Mobility Assist Device Used Yes (1 pt) Altered Elimination No (0 pt) Score/Fall Risk Level 3 or more points = High Risk Oriented to surroundings, Maintained a safe environment, Educated pt \T\ family on fall prevention, incl call for assistance when getting out of bed, Hourly rounding (assess needs \T\ fall precautionary measures) done, Used ambulatory aids as needed (educated on \T\ assisted with), Offered frequent toileting (1:1 observation), Utilized family, sitter, or virtual automatic driller and reamer as indicated. Humpty Dumpty Scale Fall Assessment Tool (age< 18yrs) Age 13 years and above (1 pt). Abuse screen: Denies threats or abuse. Denies injuries from another. Nutritional screening: No deficits noted. Tuberculosis screening: No symptoms or risk factors identified. Fall Risk Fall in past 12 months (25 points). Secondary diagnosis (15 points) CVA, No IV (0 pts). Ambulatory Aid- None/Bed Rest/Nurse Assist (0 pts). Gait- Normal/Bed Rest/Wheelchair (0 pts) Mental Status- Oriented to own ability (0 pts). Total Brasher Fall Scale indicates Low Risk Score (25-44 pts). Fall prevention measures have been instituted. Side Rails Up X 2 Placed close to Nursing Station Frequent Obs/Assesments occuring Family Present and informed to notify staff if they need to leave bedside As available Patient and Family Educated on Fall Prevention Program and strategies. Assessment: 18:15 General: SEE TRIAGE NOTE. bp 20:31 General: pt c/o pain to left side, pt calm and cooperative, family at bedside . as6 21:00 General: discharge pending transportation. as6 Vital Signs: 18:12 BP 140 / 80; Pulse 72; Resp 16; Temp 98; Pulse Ox 97% ; bp 20:30 BP 138 / 47; Pulse 74; Resp 18 S; Pulse Ox 94% on R/A; as6 ED Course: 18:10 Patient arrived in ED. em1 18:12 Cory Florentino, RN is Primary Nurse. bp 18:13 Triage completed. bp 18:13 Arm band placed on. bp 18:15 Edilberto Vieyra, [facility]. pm1 18:15 Linden Hutchins MD is Attending Physician. pm1 18:15 Patient has correct armband on for positive identification. Bed in low position. Call bp light in reach. Side rails up X2. Adult w/ patient. 19:20 Elbow Left 2 View XRAY In Process Unspecified. EDMS 19:20 Knee Left 3 View XRAY In Process Unspecified. EDMS 19:20 Head C Spine Cap Wo Con In Process Unspecified. EDMS 21:38 No provider procedures requiring assistance completed. Patient did not have IV access as6 during this emergency room visit. Administered Medications: 20:30 Drug: HYDROcodone-acetaminophen 5 mg-325 mg 1 tabs Route: PO; as6 21:39 Follow up: Response: No adverse reaction as6 Medication: 18:15 VIS not applicable for this client. bp Outcome: 20:42 Discharge ordered by . pm1 21:38 Discharged to correction. as6 21:38 Condition: stable 21:38 Discharge instructions given to patient, family, Instructed on discharge instructions, follow up and referral plans. medication usage, Demonstrated understanding of instructions, follow-up care, medications, Prescriptions given X 1. 22:40 Patient left the ED. as6 Signatures: Dispatcher [employer] EDMS Pablo Kim em1 Edilberto Vieyra, AMISHA POSTAL SERVICE WINDOW CLERK pm1 Cory Florentino, RN RN Keny Felix, REAGAN RN as6
--- NOTE | 2022-07-20 20:43 | EDPHYS ---
Physician Documentation [facility] Name: Nai Ragland Age: 86 yrs Sex: Female : 1935 Arrival Date: 07/20/2022 Time: 18:10 Bed 6 Private MD: ED Physician Linden Hutchins HPI: 07/20 19:08 This 86 yrs old Female presents to ER via EMS with complaints of Fall. pm1 19:08 Details of fall: The patient fell from seated position, out of a wheelchair. Onset: The pm1 symptoms/episode began/occurred just prior to arrival. Associated injuries: The patient sustained left anterior rib cage, left hand, contusion, pain, left elbow, pain, left hip, pain. Severity of symptoms: in the emergency department the symptoms are unchanged. The patient has not experienced similar symptoms in the past. The patient has not recently seen a physician. Patient was scooting forward in her wheelchair towards the dining table and she slid off the edge of the wheelchair and fell to the left with the wheelchair. Patient without headache, LOC, neck pain. Patient presenting with pain to left anterior rib cage, contusion to left hand and pain to left elbow, and left hip pain. Historical: - Allergies: 18:13 No Known Allergies; bp - PMHx: 18:13 Asthma; CVA; Gastroesophageal reflux disease; Hypertension; bp - PSHx: 18:13 ABRIL knee; bp - Immunization history:: Adult Immunizations up to date. - Social history:: Smoking status: Patient denies any tobacco usage or history of. ROS: 19:08 Constitutional: Negative for fever, chills, and weight loss, Cardiovascular: Negative pm1 for chest pain, palpitations, and edema, Respiratory: Negative for shortness of breath, cough, wheezing, and pleuritic chest pain, Abdomen/GI: Negative for abdominal pain, nausea, vomiting, diarrhea, and constipation, Back: Negative for injury and pain. 19:08 Neuro: Negative for headache, weakness, numbness, tingling, and seizure. 19:08 MS/extremity: Positive for pain, of the left hand and left elbow, Negative for deformity. 19:08 Skin: Positive for Contusion to dorsum of left hand. 19:08 All other systems are negative. Exam: 19:08 Constitutional: This is a well developed, well nourished patient who is awake, alert, pm1 and in no acute distress. Head/Face: Normocephalic, atraumatic. 19:08 Back: No spinal tenderness. No costovertebral tenderness. Full range of motion. MS/ Extremity: Pulses equal, no cyanosis. Neurovascular intact. Full, normal range of motion. 19:08 Eyes: Exam is negative for acute changes, Extraocular movements: no acute changes, Conjunctiva: no acute changes. 19:08 ENT: Exam is negative for acute changes, Mouth: no acute changes, Lips: normal, moist, Oral mucosa: normal, pink and intact, moist. 19:08 Neck: Exam negative for acute changes, C-spine: vertebral tenderness, is not appreciated, ROM/movement: no acute changes. 19:08 Chest/axilla: Inspection: normal, Palpation: tenderness, that is moderate, of the left lateral anterior chest, that totally reproduces the patient's complaints. 19:08 Cardiovascular: Exam negative for acute changes, Rate: normal, Rhythm: regular, Pulses: no pulse deficits are appreciated. 19:08 Respiratory: Exam negative for acute changes, respiratory distress, shortness of breath. 19:08 Abdomen/GI: Exam negative for acute changes, Inspection: abdomen appears normal, Palpation: abdomen is soft and non-tender, in all quadrants. 19:08 Musculoskeletal/extremity: Patient with contractures to left upper extremity. 19:08 Skin: Appearance: normal except for affected area, ecchymosis, noted on the, dorsum of left hand, that are mild. 19:08 Neuro: Exam negative for acute changes, Orientation: is normal, Mentation: is normal. Vital Signs: 18:12 BP 140 / 80; Pulse 72; Resp 16; Temp 98; Pulse Ox 97% ; bp 20:30 BP 138 / 47; Pulse 74; Resp 18 S; Pulse Ox 94% on R/A; as6 MDM: 18:15 Patient medically screened. pm1 20:07 Data reviewed: vital signs. Data interpreted: Pulse oximetry: on room air is 97 %. pm1 Interpretation: normal. 20:07 Counseling: I had a detailed discussion with the patient and/or guardian regarding: the pm1 historical points, exam findings, and any diagnostic results supporting the discharge/admit diagnosis, radiology results, the need for outpatient follow up, to return to the emergency department if symptoms worsen or persist or if there are any questions or concerns that arise at home. 20:31 ED course: discussed with patient and family difficulty of obtaining x-rays and read pm1 due to contracture and the option of getting a dedicated CT if they would like it. The patient and family did not want it. I looked at the CT of the chest to pelvis and it does not show any obvious fracture but explained to family and patient that a dedicated would be better if they wanted it. 20:41 ED course: will discharge patient home with incentive spirometry so that they can pm1 continue it at half-way facility and will discharge patient home with pain medications for her rib fracture. 20:46 ED course: [place] reviewed. pm1 07/20 18:25 Order name: Elbow Left 2 View XRAY; Complete Time: 19:30 pm1 07/20 18:25 Order name: Knee Left 3 View XRAY; Complete Time: 19:30 pm1 07/20 19:08 Order name: Head C Spine Cap Wo Con; Complete Time: 19:54 EDMS 07/20 20:41 Order name: INCENTIVE SPIROMETRY pm1 Administered Medications: 20:30 Drug: HYDROcodone-acetaminophen 5 mg-325 mg 1 tabs Route: PO; as6 21:39 Follow up: Response: No adverse reaction as6 Disposition Summary: 07/20/22 20:42 Discharge Ordered Location: Home pm1 Problem: new pm1 Symptoms: have improved pm1 Condition: Stable pm1 Diagnosis - Fracture of one rib, left side pm1 - Fall from non-moving wheelchair pm1 Followup: pm1 - With: Emergency Department - When: As needed - Reason: Worsening of condition Followup: pm1 - With: Private Physician - When: 2 - 3 days - Reason: Recheck today's complaints, Continuance of care, Re-evaluation by your physician Discharge Instructions: - Discharge Summary Sheet pm1 - Rib Fracture pm1 - How to Use an Incentive Spirometer pm1 Forms: - Medication Reconciliation Form pm1 - Thank You Letter pm1 - Antibiotic Education pm1 - Prescription Opioid Use pm1 - SBAR form wm Prescriptions: - Tylenol-Codeine #3 300 mg-30 mg Oral - take 1 tablet by ORAL route every 8 hours As needed; 15 tablet; Refills: 0, pm1 Product Selection Permitted Signatures: Dispatcher [employer] EDMS Edilberto Vieyra, CORPORATE COORDINATOR CORPORATE COORDINATOR pm1 Cory Florentino RN RN bp Keny De Oliveira RN RN as6 Corrections: (The following items were deleted from the chart) 19: 18:29 Head C Spine CAP W Con+CT.RAD.BRZ ordered. EDMS EDMS 19: 18:26 Hand Left 3 View+RAD.RAD.BRZ ordered. EDMS EDMS
[2022-07-20 22:45] VITALS: TEMP 98
[2022-07-20 22:46] VITALS: BP 138/47; O2SAT 94
== END 2022-07-20 22:40 | disposition home or self-care (01) ==
LOC: ER 18:06
DX: S22.32XA Fracture of one rib, left side, initial encounter for closed fracture (principal); W05.0XXA Fall from non-moving wheelchair, initial encounter
CPT/HCPCS: 70450; 71250; 72125; 99284

== ENCOUNTER 2022-09-11 10:18 | Emergency (ER) | payer OTHER ==
--- OUTSIDE RECORDS SUMMARY | 2022-09-11 10:32 | XMS REPORT | Continuity of Care Document ---
:1935 Author Organization [facility] t Address [address] [place] [address] Care Team Providers Name Role Phone Asked, No Pcp Primary Care Physician Unavailable [id number] Attending Clinician Unavailable Yaniv Fontana Attending Clinician Rick Randhawa Attending Clinician [phone] Admitting Clinician Unavailable Bridget Hernandez Admitting Clinician Payers Payer Name Policy Type Policy Number Effective Date Expiration Date Chase malin [facility] 53 [id number] [facility] ADV[facility] - [facility] Problems Condition Condition Condition Status Onset Resolution Last Treating Co mments Source Name Details Category Date Date Treatment Clinician Date ACUTE ACUTE Diagnosis Active 2019-09-23 Mem oria ISCHEMIC ISCHEMIC 09-15 09:05:00 l RIGHT MCA RIGHT MCA 00:00: Vahid clark STROKE STROKE 00 Active 09/15/2019 [facility] CVA CVA Diagnosis Active 2019-09-15 Mem oria Active 09-15 13:43:00 l 09/15/2019 00:00: Luciano perez [address] LUX LUX Diagnosis Active 2019-09-15 Memoria BILLING BILLING 09-15 13:32:00 l Active 00:00: Ottoniel 09/15/2019 00 [facility] Cerebral Cerebral Problem Active 2022-08-20 Memoria infarction infarction 12:14:03 l (disorder) (disorder) Rolando rmann Active Problem 08/20/2022 [facility] 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) (disorder) Active Problem 08/20/2022 [facility] Hypertensi Problem Active 2022-08-20 Loree torres ve Hypertensi 12:14:03 l disorder, ve Ottoniel systemic disorder, arterial systemic (disorder) arterial (disorder) Active Problem 08/20/2022 [facility] Spasticity Spasticit Problem Active 2022-08-20 Memoria (finding) y 12:14:03 l (finding) Imbler Active Problem 08/20/2022 [facility] [id number] Primary Problem 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, - [facility] CEREB CEREB Diagnosis Active 2019-09-23 Mem oria INFRC D/T INFRC D/T 09:05:00 l UNSP OCCLS UNSP OCCLS He rmann OR STENOS OR STENOS OF OF [facility] Allergies, Adverse Reactions, Alerts This patient has no known allergies or adverse reactions. Social History Social Habit Start Date Stop Date Quantity Comments Source History of Tobacco [facility] Social History 2019-09-16 2019-09-16 [facility] 09:43:21 09:43:21 Sex Assigned At [birth year] [facility] 00:00:00 00:00:00 Smoking Status Start Date Stop Date Source Tobacco smoking consumption unknown [facility] Tobacco smoking status [facility] Medications Ordered Filled Start Stop Current Ordering Indication Dosage Frequency Signature Comments Components Source Medication Medication Date Date Medication? Clinician (SIG) Name Name baclofen 2021-08 Yes = 1 tab, Me moria mg oral 0-24 PO, BID, # l tablet 16:32: 60 ea, 11 Luciano n 00 Refill(s), Pharmacy: [facility] 149.86, cm, 09/23/20 10:44:00 ENTRY LEVEL MANAGEMENT, Height, 70, kg, 10/14/20 9:23:00 ENTRY LEVEL MANAGEMENT, Weight baclofen 2021-08 Yes = 1 tab, Me moria mg oral 0-24 PO, BID, # l tablet 16:32: 60 ea, 11 Luciano n 00 Refill(s), Pharmacy: [facility], 149.86, cm, 09/23/20 10:44:00 ENTRY LEVEL MANAGEMENT, Height, 70, kg, 10/14/20 9:23:00 ENTRY LEVEL MANAGEMENT, Weight meloxicam 2021-0 Yes 15 mg = 1 Mem oria 15 mg oral 3-24 tab, PO, l tablet 14:19: Daily, # Imbler 00 30 tab, 0 Refill(s) non-formula 2021-0 Yes stool Memor ia ry 3-24 softner, l 14:19: Refill(s) Imbler 00 0 meloxicam 2021-0 Yes 15 mg = 1 Mem oria 15 mg oral 3-24 tab, PO, l tablet 14:19: Daily, # Ottoniel 00 30 tab, 0 Refill(s) non-formula 2021-0 Yes stool Memor ia ry 3-24 softner, l 14:19: Refill(s) Ottoniel 00 0 meloxicam 2021-0 Yes 15 mg = 1 Mem oria 15 mg oral 3-24 tab, PO, l tablet 14:19: Daily, # Imbler 00 30 tab, 0 Refill(s) non-formula 2021-0 Yes stool Memor ia ry 3-24 softner, l 14:19: Refill(s) Ottoniel 00 0 meloxicam 2021-0 Yes 15 mg = 1 Mem oria 15 mg oral 3-24 tab, PO, l tablet 14:19: Daily, # Imbler 00 30 tab, 0 Refill(s) non-formula 2021-0 Yes stool Memor ia ry 3-24 softner, l 14:19: Refill(s) Imbler 00 0 Melatonin 3 2021-0 Yes 3 mg = 1 Me moria MG Extended 3-24 tab, PO, l Release 14:18: Bedtime, Luciano n Tablet 00 PRN for insomnia, # 14 tab, 0 Refill(s) melatonin 3 2021-0 Yes 3 mg = 1 Me moria mg oral 3-24 tab, PO, l tablet 14:18: Bedtime, Imbler 00 PRN for insomnia, # 14 tab, 0 Refill(s) Melatonin 3 2021-0 Yes 3 mg = 1 Me moria MG Extended 3-24 tab, PO, l Release 14:18: Bedtime, Luciano n Tablet 00 PRN for insomnia, # 14 tab, 0 Refill(s) melatonin Yes 3 mg = 1 Me moria mg oral 3-24 tab, PO, l tablet 14:18: Bedtime, Ottoniel 00 PRN for insomnia, # 14 tab, 0 Refill(s) Melatonin Yes 3 mg = 1 Me moria MG Extended 3-24 tab, PO, l Release 14:18: Bedtime, Luciano n Tablet 00 PRN for insomnia, # 14 tab, 0 Refill(s) melatonin Yes 3 mg = 1 Me moria mg oral 3-24 tab, PO, l tablet 14:18: Bedtime, Imbler 00 PRN for insomnia, # 14 tab, 0 Refill(s) Melatonin Yes 3 mg = 1 Me moria MG Extended 3-24 tab, PO, l Release 14:18: Bedtime, Luciano n Tablet 00 PRN for insomnia, # 14 tab, 0 Refill(s) melatonin Yes 3 mg = 1 Me moria [...] Crystal nn 00 cap, 1 Refill(s) hydrALAZINE 2-0 Yes 50 mg = 1 M emoria 50 mg oral 3-24 tab, PO, l tablet 14:17: TID, # 90 Luciano n 00 tab, 3 Refill(s) ketoconazol 2021-0 Yes 1 appl, Mem oria e topical 3-24 TOP, l 2% shampoo 14:17: 2x/Wk, Crystal nn 00 separate doses by at least 3 days, # 120 mL, 1 Refill(s) Folic Acid 2021-0 Yes 1 mg = 1 Mem oria 1 MG Oral 3-24 tab, PO, l Tablet 14:17: Daily, # Imbler 00 30 tab, 0 Refill(s) gabapentin 2021-0 Yes 100 mg = 1 M emoria 100 MG Oral 3-24 cap, PO, l Capsule 14:17: TID, # 90 Crystal nn 00 cap, 1 Refill(s) Hydralazine 2-0 Yes 50 mg = 1 M emoria Hydrochlori 3-24 tab, PO, l de 50 MG 14:17: TID, # 90 Herm eduardo Oral Tablet 00 tab, 3 Refill(s) Ketoconazol 2021-0 Yes 1 appl, Mem oria e 20 MG/ML 3-24 TOP, l Medicated 14:17: 2x/Wk, Luciano n Shampoo 00 separate doses by at least 3 days, # 120 mL, 1 Refill(s) folic acid 2-0 Yes 1 mg = 1 Mem oria [...] # 120 mL, 1 Refill(s) Folic Acid 2-0 Yes 1 mg = 1 Mem oria 1 MG Oral 3-24 tab, PO, l Tablet 14:17: Daily, # Ottoniel 00 30 tab, 0 Refill(s) gabapentin 2-0 Yes 100 mg = 1 M emoria 100 MG Oral 3-24 cap, PO, l Capsule 14:17: TID, # 90 Crystal nn 00 cap, 1 Refill(s) Hydralazine 2021-0 Yes 50 mg = 1 M emoria Hydrochlori 3-24 tab, PO, l de 50 MG 14:17: TID, # 90 Herm eduardo Oral Tablet 00 tab, 3 Refill(s) Folic Acid 2021-0 Yes 1 mg = 1 Mem oria [...] Oral Tablet 00 tab, 3 Refill(s) Ketoconazol 2021-0 Yes 1 appl, Mem oria e 20 MG/ML 3-24 TOP, l Medicated 14:17: 2x/Wk, Luciano n Shampoo 00 separate doses by at least 3 days, # 120 mL, 1 Refill(s) folic acid 2-0 Yes 1 mg = 1 Mem oria 1 mg oral 3-24 tab, PO, l tablet 14:17: Daily, # Imbler 00 30 tab, 0 Refill(s) gabapentin 2022-0 Yes 100 mg = 1 M emoria 100 mg oral 3-24 cap, PO, l capsule 14:17: TID, # 90 Crystal nn 00 cap, 1 Refill(s) hydrALAZINE 2022-0 Yes 50 mg = 1 M emoria 50 mg oral 3-24 tab, PO, l tablet 14:17: TID, # 90 Luciano n 00 tab, 3 Refill(s) Ketoconazol 2-0 Yes 1 appl, Mem oria e 20 MG/ML 3-24 TOP, l Medicated 14:17: 2x/Wk, Luciano n Shampoo 00 separate doses by at least 3 days, # 120 mL, 1 Refill(s) ketoconazol 2-0 Yes 1 appl, Mem oria e topical 3-24 TOP, l 2% shampoo 14:17: 2x/Wk, Crystal nn 00 separate doses by at least 3 days, # 120 mL, 1 Refill(s) folic acid 2021-0 Yes 1 mg = 1 Mem oria 1 mg oral 3-24 tab, PO, l tablet 14:17: Daily, # Ottoniel 00 30 tab, 0 Refill(s) gabapentin 2021-0 Yes 100 mg = 1 M emoria 100 mg oral 3-24 cap, PO, l capsule 14:17: TID, # 90 Crystal nn 00 cap, 1 Refill(s) hydrALAZINE 2-0 Yes 50 mg = 1 M [...] oral 3-24 Refill(s) l tablet 14:16: Ottoniel 00 diazepam 5 2021-0 Yes 0 Memoria mg oral 3-24 Refill(s) l tablet 14:16: Imbler 00 diazepam 5 2021-0 Yes 0 Memoria mg oral 3-24 Refill(s) l tablet 14:16: Imbler 00 diazepam 5 2021-0 Yes 0 Memoria mg oral 3-24 Refill(s) l tablet 14:16: Imbler 00 Betamethaso 2021-0 Yes 1 appl, Mem oria ne 0.5 3-24 TOP, BID, l MG/ML / 14:15: # 15 gm, 0 Herm eduardo Clotrimazol 00 Refill(s) e 10 MG/ML Topical Cream betamethaso 2021-0 Yes 1 appl, Mem oria ne-clotrima 3-24 TOP, BID, l zole 14:15: # 15 gm, 0 Ottoniel topical 00 Refill(s) 0.05%-1% cream Betamethaso 2021-0 Yes 1 appl, Mem oria ne 0.5 3-24 TOP, BID, l MG/ML / 14:15: # 15 gm, 0 Herm eduardo Clotrimazol 00 Refill(s) e 10 MG/ML Topical Cream betamethaso 2021-0 Yes 1 appl, Mem oria ne-clotrima 3-24 TOP, BID, l zole 14:15: # 15 gm, 0 Ottoniel topical 00 Refill(s) 0.05%-1% cream Betamethaso 2021-0 Yes 1 appl, Mem oria ne 0.5 3-24 TOP, BID, l MG/ML / 14:15: # 15 gm, 0 Herm eduardo Clotrimazol 00 Refill(s) e 10 MG/ML Topical Cream betamethaso 2021-0 Yes 1 appl, Mem oria ne-clotrima 3-24 TOP, BID, l zole 14:15: # 15 gm, 0 Imbler topical 00 Refill(s) 0.05%-1% cream Betamethaso 2021-0 Yes 1 appl, Mem oria ne 0.5 3-24 TOP, BID, l MG/ML / 14:15: # 15 gm, 0 Herm eduardo Clotrimazol 00 Refill(s) e 10 MG/ML Topical Cream betamethaso 2021-0 Yes 1 appl, Mem oria ne-clotrima 3-24 TOP, BID, l zole 14:15: # 15 gm, 0 Ottoniel topical 00 Refill(s) 0.05%-1% cream Centrum 2021-0 Yes PO, Daily, Hector imtiaz Silver 3-24 0 l Women's 14:14: Refill(s) Crystal nn Centrum 0 Yes PO, Daily, Hector imtiaz Silver 3-24 0 l Women's 14:14: Refill(s) Crystal nn 00 Centrum 0 Yes PO, Daily, Hector imtiaz Silver 3-24 0 l Women's 14:14: Refill(s) Crystal nn Centrum 0 Yes PO, Daily, Hetcor imtiaz Silver 3-24 0 l Women's 14:14: Refill(s) Crystal nn 00 Bupivicaine Bupivicaine No 2.5mg Common Elora Elora 1-18 [facility] 00:00: - [facility] Kenalog Kenalog No 40mg Common (Triamcinol (Triamcinol 1-18 S pirit one) one) 00:00: - [facility] Bupivicaine Bupivicaine 0 No 2.5mg Common Elora Elora 1-18 Spirit 00:00: - [facility] Kenalog Kenalog No 40mg Common (Triamcinol (Triamcinol 1-18 S pirit one) one) 00:00: - [facility] Bupivicaine Bupivicaine 0 No 2.5mg Common Elora Elora 7-13 [facility] 00:00: - [facility] 00 [facility] Kenalog Kenalog 0 No 40mg Common (Triamcinol (Triamcinol 7-13 S pirit one) one) 00:00: - [facility] Bupivicaine Bupivicaine 0 No 2.5mg Common Elora Elora 7-13 Spirit 00:00: - [facility] Kenalog Kenalog 0 No 40mg Common (Triamcinol (Triamcinol 7-13 S pirit one) one) 00:00: - [facility] baclofen 10 Yes 10 mg = 1 M emoria mg oral 7-02 tab, PO, l tablet 15:23: BID, # 60 Luciano n 00 tab, 3 Refill(s), Pharmacy: [facility], 149.86, cm, 09/23/20 10:44:00 ENTRY LEVEL MANAGEMENT, Height, 70, kg, 10/14/20 9:23:00 ENTRY LEVEL MANAGEMENT, Weight baclofen 10 2020-0 Yes 10 mg = 1 M emoria mg oral 7-02 tab, PO, l tablet 15:23: BID, # 60 Luciano n 00 tab, 3 Refill(s), Pharmacy: [facility], 149.86, cm, 09/23/20 10:44:00 ENTRY LEVEL MANAGEMENT, Height, 70, kg, 10/14/20 9:23:00 ENTRY LEVEL MANAGEMENT, Weight baclofen 10 2020-0 Yes 10 mg = 1 M emoria mg oral 7-02 tab, PO, l tablet 15:23: BID, # 60 Luciano n 00 tab, 3 Refill(s), Pharmacy: [facility], 149.86, cm, 09/23/20 10:44:00 ENTRY LEVEL MANAGEMENT, Height, 70, kg, 10/14/20 9:23:00 ENTRY LEVEL MANAGEMENT, Weight baclofen 10 2020-0 Yes 10 mg = 1 M emoria mg oral 7-02 tab, PO, l tablet 15:23: BID, # 60 Luciano n 00 tab, 3 Refill(s), Pharmacy: [facility], 149.86, cm, 09/23/20 10:44:00 ENTRY LEVEL MANAGEMENT, Height, 70, kg, 10/14/20 9:23:00 ENTRY LEVEL MANAGEMENT, Weight Bupivicaine Bupivicaine 2020-0 No 2.5mg Common Elora Elora 3-23 Spirit 00:00: - [facility] Kenalog Kenalog 2020-0 No 40mg Common (Triamcinol (Triamcinol 3-23 S pirit one) one) 00:00: - [facility] Bupivicaine Bupivicaine 2020-0 No 2.5mg Common Elora Elora 3-23 Spirit 00:00: - [facility] Kenalog Kenalog 2020-0 No 40mg Common (Triamcinol (Triamcinol 3-23 S pirit one) one) 00:00: - [facility] Kenalog Kenalog 2019-1 No 40mg Common (Triamcinol (Triamcinol 2-15 S pirit one) one) 00:00: - [facility] Bupivicaine Bupivicaine 2019- No 2.5mg Common Elora Elora 2-15 Spirit 00:00: - [facility] Kenalog Kenalog 2019-08 No 40mg Common (Triamcinol (Triamcinol 2-15 S pirit one) one) 00:00: - [facility] Bupivicaine Bupivicaine 2019-08 No 2.5mg Common Elora Elora 2-15 [facility] 00:00: - [facility] Baclofen 2019-08 Yes 10 mg, PO, Mem [...] Memoria 1-12 Refill(s) l 16:08: Bupivicaine Bupivicaine 2020-0 No 4mL Common Elora Elora 7-20 [facility] 00:00: - [facility] 00 [facility] Kenalog Kenalog 2020-0 No 40mg Common (Triamcinol (Triamcinol 7-20 S pirit one) one) 00:00: - [facility] 00 [facility] Bupivicaine Bupivicaine 2020-0 No 4mL Common Elora Elora 7-20 Spirit 00:00: - [facility] Kenalog Kenalog 2020-0 No 40mg Common (Triamcinol (Triamcinol 7-20 S pirit one) one) 00:00: - [facility] 00 [facility] remove 2020-0 No Notes: Memoria patch 2-22 Remove l 11:00: patch 12 Imbler 00 hours after applicatio n each day. remove 2019-0 No Notes: Memoria patch 2-22 Remove l 11:00: patch 12 Ottoniel 00 hours after applicatio n each day. remove 2019-0 No Notes: Memoria patch 2-22 Remove l 11:00: patch 12 Imbler 00 hours after applicatio n each day. remove 2019-0 No Notes: Memoria patch 2-22 [...] before applicatio n of new patch" Lidocaine 2019-0 No Notes: Memori a Hydrochlori 2-21 Apply only l de 0.05 23:00: once for Luciano n MG/MG 00 up to 12 Transdermal hours in a Patch 24-hour [Lidoderm] period (12 hours on and 12 hours off). (Same as: Lidoderm) "Remove old patch before applicatio n of new patch" Lidocaine 2020-0 No Notes: Memori a Hydrochlori 2-21 Apply only l de 0.05 23:00: once for Luciano n MG/MG 00 up to 12 Transdermal hours in a Patch 24-hour [Lidoderm] period (12 hours on and 12 hours off). (Same as: Lidoderm) "Remove old patch before applicatio n of new patch" Lidocaine 2020-0 No 1 patch, Hector imtiaz Hydrochlori 2-21 Route: l de 0.05 19:46: TOP, Q12H, Herm eduardo MG/MG 00 PRN Pain Transdermal Score 4-6, Patch Start [Lidoderm] date: 09/26/19 13:46:00 ENTRY LEVEL MANAGEMENT, Duration: 30 day, Stop date: 10/26/19 13:45:00 CDT, Remove after 12 hours Lidocaine 2020-0 No 1 patch, Hector imtiaz Hydrochlori 2-21 Route: l de 0.05 19:46: TOP, Q12H, Herm eduardo MG/MG 00 PRN Pain Transdermal Score 4-6, Patch Start [Lidoderm] date: 09/26/19 13:46:00 ENTRY LEVEL MANAGEMENT, Duration: 30 day, Stop date: 10/26/19 13:45:00 CDT, Remove after 12 hours Lidocaine 2019-0 No 1 patch, Hector imtiaz Hydrochlori 2-21 Route: l de 0.05 19:46: TOP, Q12H, Herm eduardo MG/MG 00 PRN Pain Transdermal Score 4-6, Patch Start [Lidoderm] date: 09/26/19 13:46:00 ENTRY LEVEL MANAGEMENT, Duration: 30 day, Stop date: 10/26/19 13:45:00 CDT, Remove after 12 hours Lidocaine 2020-0 No 1 patch, Hector imtiaz Hydrochlori 2-21 Route: l de 0.05 19:46: TOP, Q12H, Herm eduardo MG/MG 00 PRN Pain Transdermal Score 4-6, Patch Start [Lidoderm] date: 09/26/19 13:46:00 ENTRY LEVEL MANAGEMENT, Duration: 30 day, Stop date: 10/26/19 13:45:00 CDT, Remove after 12 hours Aspirin 81 2020-0 Yes 81 mg = 1 Me moria MG Enteric 2-21 tab, PO, l Coated 15:05: Daily, 0 Imbler Tablet 00 Refill(s) atorvastati 2020-0 Yes 80 mg = 1 M emoria n 80 mg 2-21 tab, PO, l oral tablet 15:05: Bedtime, 0 Imbler 00 Refill(s) clopidogrel 2020-0 Yes 75 mg = 1 M emoria 75 mg oral 2-21 tab, PO, l tablet 15:05: Daily, 0 Ottoniel 00 Refill(s) tamsulosin 2020-0 Yes 0.4 mg = 1 M emoria 0.4 mg oral 2-21 cap, PO, l capsule 15:05: After Imbler 00 Dinner, 0 Refill(s) melatonin 3 2020-0 Yes 3 mg = 1 Me moria mg oral 2-21 tab, PO, l tablet 15:05: Bedtime, 0 Crystal nn 00 Refill(s) Albuterol 2020-0 Yes 3 mL, NEB, Me moria 0.833 MG/ML 2-21 RTID, PRN l / 15:05: Respirator Ottoniel Ipratropium 00 y Pathway, [place] 0 0.167 MG/ML Refill(s) Inhalant Solution [DuoNeb] Budesonide 2020-0 Yes 2 Memoria 0.16 2-21 inhalation l MG/ACTUAT / 15:05: , Luciano n formoterol 00 INHALATION fumarate , RBID, 0 0.0045 Refill(s) MG/ACTUAT Metered Dose Inhaler labetalol 2020-0 Yes 200 mg = 1 Me moria 200 mg oral 2-21 tab, PO, l tablet 15:05: Q8H, 0 Ottoniel 00 Refill(s) Aspirin 81 2020-0 Yes 81 mg = 1 Me moria MG Enteric 2-21 tab, PO, l Coated 15:05: Daily, 0 Imbler Tablet 00 Refill(s) atorvastati 2020-0 Yes 80 mg = 1 M emoria n 80 mg 2-21 tab, PO, l oral tablet 15:05: Bedtime, 0 Ottoniel 00 Refill(s) clopidogrel 2020-0 Yes 75 mg = 1 M emoria 75 mg oral 2-21 tab, PO, l tablet 15:05: Daily, 0 Imbler 00 Refill(s) tamsulosin 2020-0 Yes 0.4 mg [...] 15:05: Respirator Ottoniel Ipratropium [address], [place] 0 0.167 MG/ML Refill(s) Inhalant Solution [DuoNeb] Budesonide 2020-0 Yes 2 Memoria 0.16 2-21 inhalation l MG/ACTUAT / 15:05: , Luciano n formoterol 00 INHALATION fumarate , RBID, 0 0.0045 Refill(s) MG/ACTUAT Metered Dose Inhaler labetalol 2020-0 Yes 200 mg = 1 Me moria 200 mg oral 2-21 tab, PO, l tablet 15:05: Q8H, 0 Ottoniel 00 Refill(s) Aspirin 81 2020-0 Yes 81 [...] tab, PO, l tablet 15:05: Daily, 0 Ottoniel 00 Refill(s) tamsulosin 2020-0 Yes [...] 2-21 RTID, PRN l / 15:05: Respirator Imbler Ipratropium [address], [place] 0 0.167 MG/ML Refill(s) Inhalant Solution [DuoNeb] Budesonide 2020-0 Yes 2 Memoria 0.16 2-21 inhalation l MG/ACTUAT / 15:05: , Luciano n formoterol 00 INHALATION fumarate , RBID, 0 0.0045 Refill(s) MG/ACTUAT Metered Dose Inhaler labetalol 2020-0 Yes 200 mg = 1 Me moria 200 mg oral 2-21 tab, PO, l tablet 15:05: Q8H, 0 Imbler 00 Refill(s) Aspirin 81 2020-0 Yes 81 [...] tab, PO, l tablet 15:05: Daily, 0 Ottoniel 00 Refill(s) tamsulosin 2020-0 Yes 0.4 mg = 1 M emoria 0.4 mg oral 2-21 cap, PO, l capsule 15:05: After Imbler 00 Dinner, 0 Refill(s) melatonin 3 2020-0 Yes 3 mg = 1 Me moria mg oral 2-21 tab, PO, l tablet 15:05: Bedtime, 0 Crystal nn 00 Refill(s) Albuterol 2020-0 Yes 3 mL, NEB, Me moria 0.833 MG/ML 2-21 RTID, PRN l / 15:05: Respirator Ottoniel Ipratropium [address], [place] 0 0.167 MG/ML Refill(s) Inhalant Solution [DuoNeb] Budesonide 2020-0 Yes 2 Memoria 0.16 2-21 inhalation l MG/ACTUAT / 15:05: , Luciano n formoterol 00 INHALATION fumarate , RBID, 0 0.0045 Refill(s) MG/ACTUAT Metered Dose Inhaler labetalol 2020-0 Yes 200 mg = 1 Me moria 200 mg oral 2-21 tab, PO, l tablet 15:05: Q8H, 0 Ottoniel 00 Refill(s) budesonide- 2020-0 No Notes: Hector imtiaz formoterol 2-21 (Same as: l 160 mcg-4.5 14:16: Symbicort) Ottoniel mcg/inh 00 WASTE: inhalation Aerosol - aerosol Return to with Pharmacy adapter budesonide- 2020-0 No Notes: Hector imtiaz formoterol 2-21 (Same as: l 160 mcg-4.5 14:16: Symbicort) Ottoniel mcg/inh 00 WASTE: inhalation Aerosol - aerosol Return to with Pharmacy adapter budesonide- 2020-0 No Notes: Hector imtiaz formoterol 2-21 (Same as: l 160 mcg-4.5 14:16: Symbicort) Ottoniel mcg/inh 00 WASTE: inhalation Aerosol - aerosol Return to with Pharmacy adapter budesonide- 2020-0 No Notes: Hector imtiaz formoterol 2-21 (Same as: l 160 mcg-4.5 14:16: Symbicort) Imbler mcg/inh 00 WASTE: inhalation Aerosol - aerosol Return to with Pharmacy adapter Mucinex 2020-0 No Notes: Memoria 2-21 (Same as: l 03:00: Guaifenesi Ottoniel 00 n LA, Humibid LA, Mucinex) "Do Not Crush" Take medication with plenty of water. Guanfacine 20200 No 1 mg, Memori a 2-21 Route: PO, l 03:00: Drug form: Ottoniel 00 TAB, Bedtime, Dosing Weight 68.182, kg, Start date: 09/25/19 21:00:00 ENTRY LEVEL MANAGEMENT, Duration: 30 day, Stop date: 10/24/19 21:00:00 CDT Mucinex 2020-0 No Notes: Memoria 2-21 (Same as: l 03:00: Guaifenesi Ottoniel 00 n LA, Humibid LA, Mucinex) "Do Not Crush" Take medication with plenty of water. Guanfacine 20200 No 1 mg, Memori a 2-21 Route: PO, l 03:00: Drug form: Imbler 00 TAB, Bedtime, Dosing Weight 68.182, kg, Start date: 09/25/19 21:00:00 ENTRY LEVEL MANAGEMENT, Duration: 30 day, Stop date: 10/24/19 21:00:00 CDT Mucinex 2020-0 No Notes: Memoria 2-21 (Same as: l 03:00: Guaifenesi Imbler 00 n LA, Humibid LA, Mucinex) "Do Not Crush" Take medication with plenty of water. Guanfacine 2020-0 No 1 mg, Memori a 2-21 Route: PO, l 03:00: Drug form: Ottoniel 00 TAB, Bedtime, Dosing Weight 68.182, kg, Start date: 09/25/19 21:00:00 ENTRY LEVEL MANAGEMENT, Duration: 30 day, Stop date: 10/24/19 21:00:00 CDT Mucinex 2020-0 No Notes: Memoria 2-21 (Same as: l 03:00: Guaifenesi Ottoniel 00 n [place], Humibid LA, Mucinex) "Do Not Crush" Take medication with plenty of water. Guanfacine 2020-0 No 1 mg, Memori a 2-21 Route: PO, l 03:00: Drug form: Ottoniel 00 TAB, Bedtime, Dosing Weight 68.182, kg, Start date: 09/25/19 21:00:00 ENTRY LEVEL MANAGEMENT, Duration: 30 day, Stop date: 10/24/19 21:00:00 CDT Advair HFA 2020-0 No 2 puff, Hector imtiaz 115 mcg-21 2-20 Route: l mcg/inh 23:00: INHALATION Herm eduardo inhalation 00 , Dosing aerosol Weight with 68.182, adapter kg, BID, Start date: 09/25/19 17:00:00 ENTRY LEVEL MANAGEMENT, Duration: 30 day, Stop date: 10/25/19 9:00:00 CDT Advair HFA 2020-0 No 2 puff, Hector imtiaz 115 mcg-21 2-20 Route: l mcg/inh 23:00: INHALATION Herm eduardo inhalation 00 , Dosing aerosol Weight with 68.182, adapter kg, BID, Start date: 09/25/19 17:00:00 ENTRY LEVEL MANAGEMENT, Duration: 30 day, Stop date: 10/25/19 9:00:00 CDT Advair HFA 2020-0 No 2 puff, Hector imtiaz 115 mcg-21 2-20 Route: l mcg/inh 23:00: INHALATION Herm eduardo inhalation 00 , Dosing aerosol Weight with 68.182, adapter kg, BID, Start date: 09/25/19 17:00:00 ENTRY LEVEL MANAGEMENT, Duration: 30 day, Stop date: 10/25/19 9:00:00 CDT Advair HFA 2019-0 No 2 puff, Hector imtiaz 115 mcg-21 2-20 Route: l mcg/inh 23:00: INHALATION Herm eduardo inhalation 00 , Dosing aerosol Weight with 68.182, adapter kg, BID, Start date: 09/25/19 17:00:00 ENTRY LEVEL MANAGEMENT, Duration: 30 day, Stop date: 10/25/19 9:00:00 CDT Albuterol No Notes: Memori a 0.833 MG/ML 2-20 (Same as: l / 17:00: Duoneb) Ottoniel Ipratropium 00 [place] 0.167 MG/ML Inhalant Solution [DuoNeb] Albuterol No Notes: Memori a 0.833 MG/ML 2-20 (Same as: l / 17:00: Duoneb) Ottoniel Ipratropium 00 [place] 0.167 MG/ML Inhalant Solution [DuoNeb] Albuterol No Notes: Memori a 0.833 MG/ML 2-20 (Same as: l / 17:00: Duoneb) Ottoniel Ipratropium 00 [place] 0.167 MG/ML Inhalant Solution [DuoNeb] Albuterol 0 No Notes: Memori a 0.833 MG/ML 2-20 (Same as: l / 17:00: Duoneb) Imbler Ipratropium 00 [place] 0.167 MG/ML Inhalant Solution [DuoNeb] Aspirin 81 0 No Notes: Memor ia MG Enteric 2-20 Take with l Coated 16:00: food. Imbler Tablet 00 Potassium 2020-0 No Notes: Memori a Chloride 2-20 (Same as: l 1.33 MEQ/ML 16:00: Potassium H ermann Oral 00 Chloride) Solution Aspirin 81 2019-0 No Notes: Memor ia MG Enteric 2-20 Take with l Coated 16:00: food. Imbler Tablet 00 Potassium 2020-0 No Notes: Memori a Chloride 2-20 (Same as: l 1.33 MEQ/ML 16:00: Potassium H ermann Oral 00 Chloride) Solution Aspirin 81 2019-0 No Notes: Memor ia MG Enteric 2-20 Take with l Coated 16:00: food. Imbler Tablet 00 Potassium 0 No Notes: Memori a Chloride 2-20 (Same as: l 1.33 MEQ/ML 16:00: Potassium H ermann Oral 00 Chloride) Solution Aspirin 81 No Notes: Memor ia MG Enteric 2-20 Take with l Coated 16:00: food. Imbler Tablet 00 Potassium No Notes: Memori a Chloride 2-20 (Same as: l 1.33 MEQ/ML 16:00: Potassium H ermann Oral 00 Chloride) Solution Magnesium No Notes: Memori a Sulfate 2-20 WASTE: F/P l 14:11: - Sink; E Imbler - [employer] Magnesium No Notes: Mem[facility] a Sulfate 2-20 WASTE: F/P l 14:11: - Sink; E Imbler - [employer] [facility] Magnesium 2019- No Notes: [facility] a Sulfate 2-20 WASTE: F/P l 14:11: - Sink; E Imbler - [facility] Magnesium 0 No Notes: Mem[facility] a Sulfate 2-20 WASTE: F/P l 14:11: - Sink; E Ottoniel - [employer] Tr[facility] Plavix No Notes: Memoria 2-19 (Same As: l 20:29: Plavix) Ottoniel Plavix No Notes: Memoria 2-19 (Same As: l 20:29: Plavix) Imbler Plavix No Notes: Memoria 2-19 (Same As: l 20:29: Plavix) Ottoniel Plavix No Notes: Memoria 2-19 (Same As: l 20:29: Plavix) Albuterol No Notes: Memori a 0.833 MG/ML 2-19 (Same as: l / 20:27: Duoneb) Ipratropium 00 [place] 0.167 MG/ML Inhalant Solution [DuoNeb] Albuterol No Notes: Memori a 0.833 MG/ML 2-19 (Same as: l / 20:27: Duoneb) Ipratropium 00 [place] 0.167 MG/ML Inhalant Solution [DuoNeb] Albuterol No Notes: Memori a 0.833 MG/ML 2-19 (Same as: l / 20:27: Duoneb) Ottoniel Ipratropium 00 [place] 0.167 MG/ML Inhalant Solution [DuoNeb] Albuterol 2019-0 No Notes: Memori a 0.833 MG/ML 2-19 (Same as: l / 20:27: Duoneb) Ottoniel Ipratropium 00 [place] 0.167 MG/ML Inhalant Solution [DuoNeb] Labetalol 2019-0 No Notes: Memori a 2-18 With food. l 23:40: (Same as:Trandat e, Normodyne) Labetalol 2019-0 No Notes: Memori a 2-18 With food. l 23:40: (Same as:Trandat e, Normodyne) Labetalol 2019-0 No Notes: Memori a 2-18 With food. l 23:40: (Same as:Trandat e, Normodyne) Labetalol 2019-0 No Notes: Memori a 2-18 With food. l 23:40: (Same as:Trandat e, Normodyne) Docusate 2019-0 No Notes: Memoria Sodium 50 2-18 (Same as l MG / 15:00: Senokot-S) Ottoniel sennosides, 00 Equiv. to RETIREMENT 8.6 MG Nikki-Colac Oral Tablet e. Docusate 2019-0 No Notes: Memoria Sodium 50 2-18 (Same as l MG / 15:00: Senokot-S) Imbler sennosides, 00 Equiv. to RETIREMENT 8.6 MG Nikki-[place] Oral Tablet e. Docusate 2019-0 No Notes: Memoria Sodium 50 2-18 (Same as l MG / 15:00: Senokot-S) Imbler sennosides, 00 Equiv. to RETIREMENT 8.6 MG Nikki-[place] Oral Tablet e. Docusate 2019-0 No Notes: Memoria Sodium 50 2-18 (Same as l MG / 15:00: Senokot-S) Ottoniel sennosides, 00 Equiv. to RETIREMENT 8.6 MG Nikki-[place] Oral Tablet e. magnesium 2019-0 No Notes: Memori a citrate 2-17 (Same [...] 00 TAB, Q8H, Start date: 09/21/19 16:00:00 ENTRY LEVEL MANAGEMENT, Duration: 30 day, Stop date: 10/21/19 8:00:00 CDT, 0 Cardizem 2020-0 No 60 mg, Memoria 2-16 Route: PO, l 22:00: Drug form: Ottoniel 00 TAB, Q8H, Start date: 09/21/19 16:00:00 ENTRY LEVEL MANAGEMENT, Duration: 30 day, Stop date: 10/21/19 8:00:00 CDT, 0 Cardizem 2020-0 No 60 mg, Memoria 2-16 Route: PO, l 22:00: Drug form: Ottoniel 00 TAB, Q8H, Start date: 09/21/19 16:00:00 ENTRY LEVEL MANAGEMENT, Duration: 30 day, Stop date: 10/21/19 8:00:00 CDT, 0 Cardizem 2020-0 No 60 mg, Memoria 2-16 Route: PO, l 22:00: Drug form: Ottoniel TAB, Q8H, Start date: 09/21/19 16:00:00 ENTRY LEVEL MANAGEMENT, Duration: 30 day, Stop date: 10/21/19 8:00:00 CDT, 0 Coreg 2020-0 No 25 mg, 1 Memoria 2-16 tab, l 20:00: Route: PO, Drug form: TAB, Q12H, Dosing Weight 68.182, kg, Start date: 09/21/19 14:00:00 ENTRY LEVEL MANAGEMENT, Duration: 30 day, Stop date: 10/21/19 9:00:00 CDT, 0 Coreg 2020-0 No 25 mg, 1 Memoria 2-16 tab, l 20:00: Route: PO, Drug form: TAB, Q12H, Dosing Weight 68.182, kg, Start date: 09/21/19 14:00:00 ENTRY LEVEL MANAGEMENT, Duration: 30 day, Stop date: 10/21/19 9:00:00 CDT, 0 Coreg 2020-0 No 25 mg, 1 Memoria 2-16 tab, l 20:00: Route: PO, Drug form: TAB, Q12H, Dosing Weight 68.182, kg, Start date: 09/21/19 14:00:00 ENTRY LEVEL MANAGEMENT, Duration: 30 day, Stop date: 10/21/19 9:00:00 CDT, 0 Coreg 2020-0 No 25 mg, 1 Memoria 2-16 tab, l 20:00: Route: PO, Drug form: TAB, Q12H, Dosing Weight 68.182, kg, Start date: 09/21/19 14:00:00 ENTRY LEVEL MANAGEMENT, Duration: 30 day, Stop date: 10/21/19 9:00:00 CDT, 0 Labetalol 2020-0 No 20 mg, 4 Hector imtiaz 2-16 mL, Route: l 18:10: IV, Drug form: INJ, Q6H, Dosing Weight 68.182, kg, PRN Hypertensi on, Start date: 09/21/19 12:10:00 ENTRY LEVEL MANAGEMENT, Duration: 30 day, Stop date: 10/21/19 12:09:00 CDT, 0 Hydralazine 2020-0 No Notes: Hector imtiaz 2-16 (Same as: l 18:10: Apresoline Ottoniel 00 ) Push over 5 minutes Labetalol 2020-0 No 20 mg, 4 Hector imtiaz 2-16 mL, Route: l 18:10: IV, Drug Imbler 00 form: INJ, Q6H, Dosing Weight 68.182, kg, PRN Hypertensi on, Start date: 09/21/19 12:10:00 ENTRY LEVEL MANAGEMENT, Duration: 30 day, Stop date: 10/21/19 12:09:00 CDT, 0 Hydralazine 2020-0 No Notes: Hector imtiaz 2-16 (Same as: l 18:10: Apresoline Imbler 00 ) Push over 5 minutes Labetalol 2020-0 No 20 mg, 4 Hector imtiaz 2-16 mL, Route: l 18:10: IV, Drug Ottoniel 00 form: INJ, Q6H, Dosing Weight 68.182, kg, PRN Hypertensi on, Start date: 09/21/19 12:10:00 ENTRY LEVEL MANAGEMENT, Duration: 30 day, Stop date: 10/21/19 12:09:00 CDT, 0 Hydralazine 2020-0 No Notes: Hector imtiaz 2-16 (Same as: l 18:10: Apresoline Imbler 00 ) Push over 5 minutes Labetalol 2020-0 No 20 mg, 4 Hector imtiaz 2-16 mL, Route: l 18:10: IV, Drug Imbler 00 form: INJ, Q6H, Dosing Weight 68.182, kg, PRN Hypertensi on, Start date: 09/21/19 12:10:00 ENTRY LEVEL MANAGEMENT, Duration: 30 day, Stop date: 10/21/19 12:09:00 CDT, 0 Hydralazine 2020-0 No Notes: Hector imtiaz 2-16 (Same as: l 18:10: Apresoline Ottoniel 00 ) Push over 5 minutes Labetalol 2020-0 No 10 mg, 2 Hector imtiaz 2-16 mL, Route: l 18:07: IV, Drug Imbler 00 form: INJ, ONCE, Dosing Weight 68.182, kg, Start date: 09/21/19 12:07:00 ENTRY LEVEL MANAGEMENT, Stop date: 09/21/19 12:07:00 ENTRY LEVEL MANAGEMENT, 0 Labetalol 2020-0 No 10 mg, 2 Hector imtiaz 2-16 mL, Route: l 18:07: IV, Drug Ottoniel 00 form: INJ, ONCE, Dosing Weight 68.182, kg, Start date: 09/21/19 12:07:00 ENTRY LEVEL MANAGEMENT, Stop date: 09/21/19 12:07:00 ENTRY LEVEL MANAGEMENT, 0 Labetalol 2020-0 No 10 mg, 2 Hector imtiaz 2-16 mL, Route: l 18:07: IV, Drug Imbler 00 form: INJ, ONCE, Dosing Weight 68.182, kg, Start date: 09/21/19 12:07:00 ENTRY LEVEL MANAGEMENT, Stop date: 09/21/19 12:07:00 ENTRY LEVEL MANAGEMENT, 0 Labetalol 2020-0 No 10 mg, 2 Hector imtiaz 2-16 mL, Route: l 18:07: IV, Drug Ottoniel 00 form: INJ, ONCE, Dosing Weight 68.182, kg, Start date: 09/21/19 12:07:00 ENTRY LEVEL MANAGEMENT, Stop date: 09/21/19 12:07:00 ENTRY LEVEL MANAGEMENT, 0 Diltiazem 2020-0 No 120 mg, Memor ia 2-16 Route: PO, l 15:00: Drug form: Imbler 00 ERCAP, Daily, Dosing Weight 68.182, kg, Start date: 09/21/19 9:00:00 ENTRY LEVEL MANAGEMENT, Duration: 30 day, Stop date: 10/20/19 9:00:00 CDT Diltiazem 2020-0 No 120 mg, Memor ia 2-16 Route: PO, l 15:00: Drug form: Imbler 00 ERCAP, Daily, Dosing Weight 68.182, kg, Start date: 09/21/19 9:00:00 ENTRY LEVEL MANAGEMENT, Duration: 30 day, Stop date: 10/20/19 9:00:00 CDT Diltiazem 2020-0 No 120 mg, Memor ia 2-16 Route: PO, l 15:00: Drug form: Ottoniel 00 ERCAP, Daily, Dosing Weight 68.182, kg, Start date: 09/21/19 9:00:00 ENTRY LEVEL MANAGEMENT, Duration: 30 day, Stop date: 10/20/19 9:00:00 CDT Diltiazem 0 No 120 mg, Memor ia 2-16 Route: PO, l 15:00: Drug form: ERCAP, Daily, Dosing Weight 68.182, kg, Start date: 09/21/19 9:00:00 ENTRY LEVEL MANAGEMENT, Duration: 30 day, Stop date: 10/20/19 9:00:00 CDT Cardizem 0 No Notes: Memoria 2-16 (Same as: l 14:20: Cardizem) Imbler 00 Before meals Cardizem 0 No Notes: Memoria 2-16 (Same as: l 14:20: Cardizem) Ottoniel 00 Before meals Cardizem 2019-0 No Notes: Memoria 2-16 (Same as: l 14:20: Cardizem) Imbler 00 Before meals Cardizem 2019-0 No Notes: Memoria 2-16 (Same as: l 14:20: Cardizem) Imbler 00 Before meals Potassium 2019-0 No Notes: Mem[facility] a Chloride 2-15 (Same as: l 14:02: K-Dur 20) Imbler 00 "Do Not Crush" Give with food and full glass of water For patients unable to swallow tablet, dissolve in one half glass of water. Allow about 2 minutes for the tablets to disintegra te. Stir before giving to prepare slurry and administer . Please exclude Patient s with feeding tube less than 14 [place] (Dobhoff, J-tube etc) and pediatric and patients. [...] s with feeding tube less than 14 [place] (Dobhoff, J-tube etc) and pediatric and patients. Potassium 2020-0 No Notes: [facility] a Chloride 2-15 (Same as: l 14:02: K-Dur 20) Ottoniel "Do Not Crush" Give with food and full glass of water For patients unable to swallow tablet, dissolve in one half glass of water. Allow about 2 minutes for the tablets to disintegra te. Stir before giving to prepare slurry and administer . Please exclude Patient s with feeding tube less than 14 [place] (Dobhoff, J-tube etc) and pediatric and patients. [...] s with feeding tube less than 14 [place] (Dobhoff, J-tube etc) and pediatric and patients. Potassium 2020-0 No 40 mEq, 2 Mem oria Chloride 2-14 tab, l 1.33 MEQ/ML 20:00: Route: PO, Ottoniel Oral 00 Drug form: Solution ERTAB, ONCE, Dosing Weight 68.182, kg, Start date: 09/19/19 14:00:00 ENTRY LEVEL MANAGEMENT, Stop date: 09/19/19 14:00:00 ENTRY LEVEL MANAGEMENT, 0 Potassium 2020-0 No 40 mEq, 2 Mem oria Chloride 2-14 tab, l 1.33 MEQ/ML 20:00: Route: PO, Ottoniel Oral 00 Drug form: Solution ERTAB, ONCE, Dosing Weight 68.182, kg, Start date: 09/19/19 14:00:00 ENTRY LEVEL MANAGEMENT, Stop date: 09/19/19 14:00:00 ENTRY LEVEL MANAGEMENT, 0 Potassium 2020-0 No 40 mEq, 2 Mem oria Chloride 2-14 tab, l 1.33 MEQ/ML 20:00: Route: PO, Imbler Oral 00 Drug form: Solution ERTAB, ONCE, Dosing Weight 68.182, kg, Start date: 09/19/19 14:00:00 ENTRY LEVEL MANAGEMENT, Stop date: 09/19/19 14:00:00 ENTRY LEVEL MANAGEMENT, 0 Potassium 2020-0 No 40 mEq, 2 Mem oria Chloride 2-14 tab, l 1.33 MEQ/ML 20:00: Route: PO, Imbler Oral 00 Drug form: Solution ERTAB, ONCE, Dosing Weight 68.182, kg, Start date: 09/19/19 14:00:00 ENTRY LEVEL MANAGEMENT, Stop date: 09/19/19 14:00:00 ENTRY LEVEL MANAGEMENT, 0 valsartan 2020-0 No Notes: Memori a 2-14 Same as l 15:00: Diovan Imbler valsartan 2020-0 No Notes: Memori a 2-14 Same as l 15:00: Diovan Ottoniel valsartan 2020-0 No Notes: Memori a 2-14 Same as l 15:00: Diovan Imbler valsartan 2020-0 No Notes: Memori a 2-14 Same as l 15:00: Diovan Imbler Potassium 2020-0 Yes 40 mEq, 2 Mem oria Chloride 2-14 tab, l 1.33 MEQ/ML 12:42: Route: PO, Ottoniel Oral 00 Drug form: Solution ERTAB, ONCE, Dosing Weight 68.182, kg, Start date: 09/19/19 6:42:00 ENTRY LEVEL MANAGEMENT, Stop date: 09/19/19 6:42:00 ENTRY LEVEL MANAGEMENT, 0 Potassium 2020-0 Yes 40 mEq, 2 Mem oria Chloride 2-14 tab, l 1.33 MEQ/ML 12:42: Route: PO, Imbler Oral 00 Drug form: Solution ERTAB, ONCE, Dosing Weight 68.182, kg, Start date: 09/19/19 6:42:00 ENTRY LEVEL MANAGEMENT, Stop date: 09/19/19 6:42:00 ENTRY LEVEL MANAGEMENT, 0 Potassium 2020-0 Yes 40 mEq, 2 Mem oria Chloride 2-14 tab, l 1.33 MEQ/ML 12:42: Route: PO, Ottoniel Oral 00 Drug form: Solution ERTAB, ONCE, Dosing Weight 68.182, kg, Start date: 09/19/19 6:42:00 ENTRY LEVEL MANAGEMENT, Stop date: 09/19/19 6:42:00 ENTRY LEVEL MANAGEMENT, 0 Potassium 2020-0 Yes 40 mEq, 2 Mem oria Chloride 2-14 tab, l 1.33 MEQ/ML 12:42: Route: PO, Ottoniel Oral 00 Drug form: Solution ERTAB, ONCE, Dosing Weight 68.182, kg, Start date: 09/19/19 6:42:00 ENTRY LEVEL MANAGEMENT, Stop date: 09/19/19 6:42:00 ENTRY LEVEL MANAGEMENT, 0 valsartan 2020-0 No Notes: Memori a 2-13 Same as l 23:59: Diovan Ottoniel valsartan 2020-0 No Notes: Memori a 2-13 Same as l 23:59: Diovan Ottoniel 00 valsartan 2020-0 No Notes: Memori a 2-13 Same as l 23:59: Diovan Imbler 00 valsartan 2020-0 No Notes: Memori a 2-13 Same as l 23:59: Diovan Imbler 00 Flomax 2020-0 No Notes: Memoria 2-13 (Same As: l 23:00: Flomax) Ottoniel 00 "Do Not Crush" Flomax 2020-0 No Notes: Memoria 2-13 (Same As: l 23:00: Flomax) Ottoniel 00 "Do Not Crush" Flomax 2020-0 No Notes: Memoria 2-13 (Same As: l 23:00: Flomax) Ottoniel 00 "Do Not Crush" Flomax 2020-0 No Notes: Memoria 2-13 (Same As: l 23:00: Flomax) Ottoniel 00 "Do Not Crush" Sodium 2020-0 No 1,000 mL, Memori a Chloride 2-13 Rate: 50 l 0.9% IV 21:51: ml/hr, Ottoniel 1,000 mL 00 Infuse over: 20 hr, Route: IV, Dosing Weight 68.182 kg, Total Volume: 1,000, Start date: 09/18/19 15:51:00 ENTRY LEVEL MANAGEMENT, Duration: 30 day, Stop date: 10/18/19 15:50:00 CDT, 1.68, m2, 0 Sodium 2020-0 No 1,000 mL, Memori a Chloride 2-13 Rate: 50 l 0.9% IV 21:51: ml/hr, Imbler 1,000 mL 00 Infuse over: 20 hr, Route: IV, Dosing Weight 68.182 kg, Total Volume: 1,000, Start date: 09/18/19 15:51:00 ENTRY LEVEL MANAGEMENT, Duration: 30 day, Stop date: 10/18/19 15:50:00 CDT, 1.68, m2, 0 Sodium 2020-0 No 1,000 mL, Memori a Chloride 2-13 Rate: 50 l 0.9% IV 21:51: ml/hr, Ottoniel 1,000 mL 00 Infuse over: 20 hr, Route: IV, Dosing Weight 68.182 kg, Total Volume: 1,000, Start date: 09/18/19 15:51:00 ENTRY LEVEL MANAGEMENT, Duration: 30 day, Stop date: 10/18/19 15:50:00 CDT, 1.68, m2, 0 Sodium 2020-0 No 1,000 mL, Memori a Chloride 2-13 Rate: 50 l 0.9% IV 21:51: ml/hr, Imbler 1,000 mL 00 Infuse over: 20 hr, Route: IV, Dosing Weight 68.182 kg, Total Volume: 1,000, Start date: 09/18/19 15:51:00 ENTRY LEVEL MANAGEMENT, Duration: 30 day, Stop date: 10/18/19 15:50:00 CDT, 1.68, m2, 0 valsartan 2020-0 No Notes: Memori a 2-13 Same as l 15:00: Diovan Ottoniel 00 Potassium 2019-0 No Notes: Memori a Chloride 2-13 (Same as: l 1.33 MEQ/ML 15:00: Potassium H ermann Oral 00 Chloride) Solution valsartan 2019-0 No Notes: Memori a 2-13 Same as l 15:00: Diovan Imbler 00 Potassium 2019-0 No Notes: Memori a Chloride 2-13 (Same as: l 1.33 MEQ/ML 15:00: Potassium H ermann Oral 00 Chloride) Solution valsartan 2019-0 No Notes: Memori a 2-13 Same as l 15:00: Diovan Ottoniel 00 Potassium 2020-0 No Notes: Memori a Chloride 2-13 (Same as: l 1.33 MEQ/ML 15:00: Potassium H ermann Oral 00 Chloride) Solution valsartan 2019-0 No Notes: Memori a 2-13 Same as l 15:00: Diovan Imbler 00 Potassium 2020-0 No Notes: Memori a Chloride 2-13 (Same as: l 1.33 MEQ/ML 15:00: Potassium H ermann Oral 00 Chloride) Solution Potassium 2019-0 No Notes: Memori a Chloride 2-13 (Same [...] s with feeding tube less than 14 [place] (Navi, J-tube etc) and pediatric and patients. Potassium 2019- No Notes: Memori a Chloride 2-13 (Same [...] s with feeding tube less than 14 [place] (Dobhoff, J-tube etc) and pediatric and patients. Potassium 2019- No Notes: Memori a Chloride 2-13 (Same as: l 12:02: K-Dur 20) Imbler 00 "Do Not Crush" Give with food and full glass of water For patients unable to swallow tablet, dissolve in one half glass of water. Allow about 2 minutes for the tablets to disintegra te. Stir before giving to prepare slurry and administer . Please exclude Patient s with feeding tube less than 14 [place] (Dobhoff, J-tube etc) and pediatric and patients. Potassium No Notes: Memori a Chloride 2-13 (Same as: l 12:02: K-Dur 20) Imbler 00 "Do Not Crush" Give with food and full glass of water For patients unable to swallow tablet, dissolve in one half glass of water. Allow about 2 minutes for the tablets to disintegra te. Stir before giving to prepare slurry and administer . Please exclude Patient s with feeding tube less than 14 [place] (Dobhoff, J-tube etc) and pediatric and patients. [...] Weight 68.182 kg, Start date: 09/17/19 14:42:00 ENTRY LEVEL MANAGEMENT, Stop date: 09/17/19 14:42:00 ENTRY LEVEL MANAGEMENT, 0 NS (Bolus) 2020-0 No 1,000 mL, Me moria IV 2-12 1,000 l 20:42: ml/hr, Imbler 00 Infuse Over: 1 hr, Route: IV, 1,000, Drug form: INJ, ONCE, Priority: STAT, Dosing Weight 68.182 kg, Start date: 09/17/19 14:42:00 ENTRY LEVEL MANAGEMENT, Stop date: 09/17/19 14:42:00 ENTRY LEVEL MANAGEMENT, 0 NS (Bolus) 2019-0 No 1,000 mL, Me moria IV 2-12 1,000 l 20:42: ml/hr, Ottoniel 00 Infuse Over: 1 hr, Route: IV, 1,000, Drug form: INJ, ONCE, Priority: STAT, Dosing Weight 68.182 kg, Start date: 09/17/19 14:42:00 ENTRY LEVEL MANAGEMENT, Stop date: 09/17/19 14:42:00 ENTRY LEVEL MANAGEMENT, 0 NS (Bolus) 2019-0 No 1,000 mL, Me moria IV 2-12 1,000 l 20:42: ml/hr, Infuse Over: 1 hr, Route: IV, 1,000, Drug form: INJ, ONCE, Priority: STAT, Dosing Weight 68.182 kg, Start date: 09/17/19 14:42:00 ENTRY LEVEL MANAGEMENT, Stop date: 09/17/19 14:42:00 ENTRY LEVEL MANAGEMENT, 0 Aspirin 2019-0 No Notes: Memoria 2-12 Take with l 18:45: food. Aspirin 2019-0 No Notes: Memoria 2-12 Take with l 18:45: food. Aspirin 2019-0 No Notes: Memoria 2-12 Take with l 18:45: food. Aspirin 2019-0 No Notes: Memoria 2-12 Take with l 18:45: food. Azithromyci 2019-0 No Notes: Hector imtiaz n 2-12 Take 1 l 16:30: hour before or 2 hours after meals. (Same As: Zithromax) Azithromyci 2020-0 No Notes: Hector imtiaz n 2-12 Take 1 l 16:30: hour Imbler 00 before or 2 hours after meals. (Same As: Zithromax) Azithromyci 2019-0 No Notes: Hector imtiaz n 2-12 Take 1 l 16:30: hour Imbler 00 before or 2 hours after meals. (Same As: Zithromax) Azithromyci 2020-0 No Notes: Hector imtiaz n 2-12 Take [...] 2-12 Give with l 15:00: food. Ottoniel (Same As: Coreg) Coreg 2019-0 No Notes: Memoria 2-12 Give with l 15:00: food. Imbler 00 (Same As: Coreg) Coreg 2019-0 No Notes: Memoria 2-12 Give with l 15:00: food. Ottoniel 00 (Same As: Coreg) Coreg 2019-0 No Notes: Memoria 2-12 Give with l 15:00: food. Ottoniel 00 (Same As: Coreg) Potassium 2019-0 No Notes: Memori a Chloride 2-12 (Same as: l 12:00: KCL) Imbler 00 Infuse over 2 hours. Potassium 2019-0 [...] imtiaz 2-11 (Same as: l 20:37: Apresoline ) Hydralazine 2020-0 No Notes: Hector imtiaz 2-11 (Same as: l 20:37: Apresoline ) Hydralazine 2020-0 No Notes: Hector imtiaz 2-11 (Same as: l 20:37: Apresoline ) Hydralazine 2019-0 No Notes: Hector imtiaz 2-11 (Same as: l 20:37: Apresoline ) Coreg 2019-0 No Notes: Memoria 2-11 Give with l 20:36: food. (Same As: Coreg) Sodium 2020-0 No 1,000 mL, Memori a Chloride 2-11 Rate: 100 l 0.9% IV 20:36: ml/hr, Imbler 1,000 mL 00 Infuse over: 10 hr, Route: IV, Dosing Weight 68.182 kg, Total Volume: 1,000, Start date: 09/16/19 14:36:00 ENTRY LEVEL MANAGEMENT, Duration: 30 day, Stop date: 10/16/19 13:36:00 CDT, 1.68, m2, 0 Coreg 2020-0 No Notes: Memoria 2-11 Give with l 20:36: food. (Same As: Coreg) Sodium 2020-0 No 1,000 mL, Memori a Chloride 2-11 Rate: 100 l 0.9% IV 20:36: ml/hr, Ottoniel 1,000 mL 00 Infuse over: 10 hr, Route: IV, Dosing Weight 68.182 kg, Total Volume: 1,000, Start date: 09/16/19 14:36:00 ENTRY LEVEL MANAGEMENT, Duration: 30 day, Stop date: 10/16/19 13:36:00 CDT, 1.68, m2, 0 Coreg 2019-0 No Notes: Memoria 2-11 Give with l 20:36: food. (Same As: Coreg) Sodium 2020-0 No 1,000 mL, Memori a Chloride 2-11 Rate: 100 l 0.9% IV 20:36: ml/hr, Imbler 1,000 mL 00 Infuse over: 10 hr, Route: IV, Dosing Weight 68.182 kg, Total Volume: 1,000, Start date: 09/16/19 14:36:00 ENTRY LEVEL MANAGEMENT, Duration: 30 day, Stop date: 10/16/19 13:36:00 CDT, 1.68, m2, 0 Coreg 2020-0 No Notes: Memoria 2-11 Give with l 20:36: food. (Same As: Coreg) Sodium 2020-0 No 1,000 mL, Memori a Chloride 2-11 Rate: 100 l 0.9% IV 20:36: ml/hr, Ottoniel 1,000 mL 00 Infuse over: 10 hr, Route: IV, Dosing Weight 68.182 kg, Total Volume: 1,000, Start date: 09/16/19 14:36:00 ENTRY LEVEL MANAGEMENT, Duration: 30 day, Stop date: 10/16/19 13:36:00 CDT, 1.68, m2, 0 Tylenol 2020-0 No 100.4 F, Memor ia 2-11 Start l 20:33: date: 09/16/19 14:33:00 ENTRY LEVEL MANAGEMENT, Duration: 30 day, Stop date: 10/16/19 14:32:00 CDT, 0 Motrin 2020-0 No 100.4 F, Memori a 2-11 Start l 20:33: date: 09/16/19 14:33:00 ENTRY LEVEL MANAGEMENT, Duration: 30 day, Stop date: 10/16/19 14:32:00 CDT, 0 Tylenol 2020-0 No 100.4 F, Memor ia 2-11 Start l 20:33: date: 09/16/19 14:33:00 ENTRY LEVEL MANAGEMENT, Duration: 30 day, Stop date: 10/16/19 14:32:00 CDT, 0 Motrin 2020-0 No 100.4 F, Memori a 2-11 Start l 20:33: date: 09/16/19 14:33:00 ENTRY LEVEL MANAGEMENT, Duration: 30 day, Stop date: 10/16/19 14:32:00 CDT, 0 Tylenol 2020-0 No 100.4 F, Memor ia 2-11 Start l 20:33: date: 09/16/19 14:33:00 ENTRY LEVEL MANAGEMENT, Duration: 30 day, Stop date: 10/16/19 14:32:00 CDT, 0 Motrin 2020-0 No 100.4 F, Memori a 2-11 Start l 20:33: date: 09/16/19 14:33:00 ENTRY LEVEL MANAGEMENT, Duration: 30 day, Stop date: 10/16/19 14:32:00 CDT, 0 Tylenol 2020-0 No 100.4 F, Memor ia 2-11 Start l 20:33: date: 09/16/19 14:33:00 ENTRY LEVEL MANAGEMENT, Duration: 30 day, Stop date: 10/16/19 14:32:00 CDT, 0 Motrin 2020-0 No 100.4 F, Memori a 2-11 Start l 20:33: date: Imbler 00 09/16/19 14:33:00 ENTRY LEVEL MANAGEMENT, Duration: 30 day, Stop date: 10/16/19 14:32:00 CDT, 0 heparin 2020-0 No Notes: Memoria 2-11 porcine l 18:45: heparin Ottoniel 00 heparin 2020-0 No Notes: Memoria 2-11 porcine l 18:45: heparin Imbler 00 heparin 2020-0 No Notes: Memoria 2-11 porcine l 18:45: heparin Ottoniel 00 heparin 2020-0 No Notes: Memoria 2-11 porcine l 18:45: heparin Imbler 00 valsartan 2020-0 No Notes: Memori a 2-11 Same as l 18:05: Diovan Ottoniel 00 valsartan 2020-0 No Notes: Memori a 2-11 Same as l 18:05: Diovan Ottoniel 00 valsartan 2020-0 No Notes: Memori a 2-11 Same as l 18:05: Diovan Imbler 00 valsartan 2020-0 No Notes: Memori a 2-11 Same as l 18:05: Diovan Ottoniel 00 Sodium 2020-0 No 1,000 mL, Memori a Chloride 2-11 Rate: 100 l 0.9% IV 17:42: ml/hr, Ottoniel 1,000 mL 00 Infuse over: 10 hr, Route: IV, Dosing Weight 68.182 kg, Total Volume: 1,000, Start date: 09/16/19 11:42:00 ENTRY LEVEL MANAGEMENT, Duration: 30 day, Stop date: 10/16/19 11:41:00 CDT, 1.68, m2, 0 Sodium 2020-0 No 1,000 mL, Memori a Chloride 2-11 Rate: 100 l 0.9% IV 17:42: ml/hr, Imbler 1,000 mL 00 Infuse over: 10 hr, Route: IV, Dosing Weight 68.182 kg, Total Volume: 1,000, Start date: 09/16/19 11:42:00 ENTRY LEVEL MANAGEMENT, Duration: 30 day, Stop date: 10/16/19 11:41:00 CDT, 1.68, m2, 0 Sodium 2020-0 No 1,000 mL, Memori a Chloride 2-11 Rate: 100 l 0.9% IV 17:42: ml/hr, Imbler 1,000 mL 00 Infuse over: 10 hr, Route: IV, Dosing Weight 68.182 kg, Total Volume: 1,000, Start date: 09/16/19 11:42:00 ENTRY LEVEL MANAGEMENT, Duration: 30 day, Stop date: 10/16/19 11:41:00 CDT, 1.68, m2, 0 Sodium 2020-0 No 1,000 mL, Memori a Chloride 2-11 Rate: 100 l 0.9% IV 17:42: ml/hr, Ottoniel 1,000 mL 00 Infuse over: 10 hr, Route: IV, Dosing Weight 68.182 kg, Total Volume: 1,000, Start date: 09/16/19 11:42:00 ENTRY LEVEL MANAGEMENT, Duration: 30 day, Stop date: 10/16/19 11:41:00 CDT, 1.68, m2, 0 pantoprazol 2020-0 No Notes: For Memoria e 2-11 IV push l 15:00: reconstitu Ottoniel 00 te with 10 ml 0.9% sodium chloride and push over 2 minutes. (Same as: Protonix) Zosyn 2020-0 No Notes: Memoria 2-11 (Same as: l 15:00: Zosyn) Ottoniel 00 Dosing based on Piperacill in component MEDICATION WASTE Product Size: 3375 mg Product Wasted: _0__ mg pantoprazol 2020-0 No Notes: For Memoria e 2-11 IV push l 15:00: reconstitu Ottoniel 00 te with 10 ml 0.9% sodium chloride and push over 2 minutes. (Same as: Protonix) Zosyn 2020-0 No Notes: Memoria 2-11 (Same as: l 15:00: Zosyn) Ottoniel 00 Dosing based on Piperacill in component [...] 3375 mg Product Wasted: _0__ mg pantoprazol 2019-0 No Notes: For Memoria e 2-11 IV push l 15:00: reconstitu te with 10 ml 0.9% sodium chloride and push over 2 minutes. (Same as: Protonix) Zosyn 2019-0 No Notes: Memoria 2-11 (Same as: l 15:00: Zosyn) Dosing based on Piperacill in component MEDICATION WASTE Product Size: 3375 mg Product Wasted: _0__ mg Acetaminoph 2019- No Notes: Do M emoria en 2-11 not exceed l 14:50: 4 gm/day. (Same as: Tylenol) Acetaminoph No Notes: Do M emoria en 2-11 not exceed l 14:50: 4 gm/day. (Same as: Tylenol) Acetaminoph 2019-0 No Notes: Do M emoria en 2-11 not exceed l 14:50: 4 gm/day. (Same as: Tylenol) Acetaminoph No Notes: Do M emoria en 2-11 not exceed l 14:50: 4 gm/day. (Same as: Tylenol) vancomycin 2019-0 No 2000 [...] Product Wasted: ___ mg vancomycin 2020-0 No 2001 mg: Me moria + Sodium 2-11 infuse [...] 14:00: IVPB, Drug Ottoniel 00 form: INJ, [id number], Dosing Weight 68.182, kg, Start date: 09/16/19 8:00:00 ENTRY LEVEL MANAGEMENT, Duration: 7 day, Stop date: 09/22/19 20:00:00 ENTRY LEVEL MANAGEMENT, ABX Indication : Bacteremia Vancomycin 2020-0 No 1,500 mg, Me moria 2-11 Route: l 14:00: IVPB, Drug Ottoniel 00 form: INJ, [id number], Dosing Weight 68.182, kg, Start date: 09/16/19 8:00:00 ENTRY LEVEL MANAGEMENT, Duration: 7 day, Stop date: 09/22/19 20:00:00 ENTRY LEVEL MANAGEMENT, ABX Indication : Bacteremia Vancomycin 2020-0 No 1,500 mg, Me moria 2-11 Route: l 14:00: IVPB, Drug Ottoniel 00 form: INJ, [id number], Dosing Weight 68.182, kg, Start date: 09/16/19 8:00:00 ENTRY LEVEL MANAGEMENT, Duration: 7 day, Stop date: 09/22/19 20:00:00 ENTRY LEVEL MANAGEMENT, ABX Indication : Bacteremia Vancomycin 2020-0 No 1,500 mg, Me moria 2-11 Route: l 14:00: IVPB, Drug Imbler 00 form: INJ, [id number], Dosing Weight 68.182, kg, Start date: 09/16/19 8:00:00 ENTRY LEVEL MANAGEMENT, Duration: 7 day, Stop date: 09/22/19 20:00:00 ENTRY LEVEL MANAGEMENT, ABX Indication : Bacteremia Tylenol 2019-0 No Notes: Max Hector imtiaz 2-11 acetaminop l 13:32: hen = 4000 Ottoniel 00 mg/day (4 gm/day). (Same as: Tylenol) Tylenol 0 No Notes: Max Hector imtiaz 2-11 acetaminop l 13:32: hen = 4000 Imbler 00 mg/day (4 gm/day). (Same as: Tylenol) Tylenol 0 No Notes: Max Hector imtiaz 2-11 acetaminop l 13:32: hen = 4000 Imbler 00 mg/day (4 gm/day). (Same as: Tylenol) Tylenol 2019-0 No Notes: Max Hector imtiaz 2-11 acetaminop l 13:32: hen = 4000 Ottoniel 00 mg/day (4 gm/day). (Same as: Tylenol) Potassium 2020-0 No 10 mEq, Memor ia Chloride 2-11 Route: l 13:00: IVPB, Q1H, Dosing Weight 68.182, kg, Total Dose = 60 meq, Start date: 09/16/19 7:00:00 ENTRY LEVEL MANAGEMENT, Duration: 6 doses or times, Stop date: 09/16/19 12:00:00 ENTRY LEVEL MANAGEMENT, Periphe ral Line Potassium 2020-0 No 10 mEq, Memor ia Chloride 2-11 Route: l 13:00: IVPB, Q1H, Ottoniel 00 Dosing Weight 68.182, kg, Total Dose = 60 meq, Start date: 09/16/19 7:00:00 ENTRY LEVEL MANAGEMENT, Duration: 6 doses or times, Stop date: 09/16/19 12:00:00 ENTRY LEVEL MANAGEMENT, Periphe ral Line Potassium 2020-0 No 10 mEq, Memor ia Chloride 2-11 Route: l 13:00: IVPB, Q1H, Ottoniel 00 Dosing Weight 68.182, kg, Total Dose = 60 meq, Start date: 09/16/19 7:00:00 ENTRY LEVEL MANAGEMENT, Duration: 6 doses or times, Stop date: 09/16/19 12:00:00 ENTRY LEVEL MANAGEMENT, Periphe ral Line Potassium 2020- No 10 mEq, Memor ia Chloride 2-11 Route: l 13:00: IVPB, Q1H, Ottoniel 00 Dosing Weight 68.182, kg, Total Dose = 60 meq, Start date: 09/16/19 7:00:00 ENTRY LEVEL MANAGEMENT, Duration: 6 doses or times, Stop date: 09/16/19 12:00:00 ENTRY LEVEL MANAGEMENT, Periphe ral Line Ativan No Notes: Memoria 2-11 (Same as: l 10:55: Ativan) Ativan No Notes: Memoria 2-11 (Same as: l 10:55: Ativan) Ativan No Notes: Memoria 2-11 (Same as: l 10:55: Ativan) Ativan No Notes: Memoria 2-11 (Same as: l 10:55: Ativan) Benadryl No Notes: Memoria 2-11 (Same as: l 06:04: Benadryl) Benadryl No Notes: Memoria 2-11 (Same as: l 06:04: Benadryl) Imbler 00 Benadryl No Notes: Memoria 2-11 (Same as: l 06:04: Benadryl) Benadryl No Notes: Memoria 2-11 (Same as: l 06:04: Benadryl) Compazine No Notes: Memori a 2-11 (Same as: l 06:03: Compazine) Compazine No Notes: Memori a 2-11 (Same as: l 06:03: Compazine) Ottoniel 00 Compazine No Notes: Memori a 2-11 (Same as: l 06:03: Compazine) Imbler Compazine 2019-0 No Notes: Memori a 2-11 (Same as: l 06:03: Compazine) Ottoniel Tylenol 2020-0 No 67 kg; Memoria 2-11 Pediatric l 04:31: Dosing Imbler Tylenol 2020-0 No 67 kg; Memoria 2-11 Pediatric l 04:31: Dosing Ottoniel Tylenol 2020-0 No 67 kg; Memoria 2-11 Pediatric l 04:31: Dosing Imbler Tylenol 2020-0 No 67 kg; Memoria 2-11 Pediatric l 04:31: Dosing Ottoniel atorvastati 2019-0 No Notes: Hector imtiaz n 2-11 Same as l 03:00: Lipitor Imbler Saline 2019-0 No Notes: Memoria Flush 0.9% 2-11 (Same as: l 03:00: BD Ottoniel Posiflush) atorvastati 2019-0 No Notes: Hector imtiaz n 2-11 Same as l 03:00: Lipitor Imbler Saline 2019-0 No Notes: Memoria Flush 0.9% 2-11 (Same as: l 03:00: BD Imbler Posiflush) atorvastati 2019-0 No Notes: Hector imtiaz n 2-11 Same as l 03:00: Lipitor Ottoniel Saline 2019-0 No Notes: Memoria Flush 0.9% 2-11 (Same as: l 03:00: BD Ottoniel Posiflush) atorvastati 2019-0 No Notes: Hector imtiaz n 2-11 Same as l 03:00: Lipitor Ottoniel Saline 2019-0 No Notes: Memoria Flush 0.9% 2-11 (Same as: l 03:00: BD Ottoniel Posiflush) valsartan 2019-0 Yes 320 mg = 1 Me moria 320 mg oral 2-11 tab, PO, l tablet 01:13: Daily, 0 Ottoniel 00 Refill(s) Hydrochloro 2019-0 No 25 mg = 1 M emoria [...] PO, l mEq oral 01:13: BID, 0 Ottoniel capsule, 00 Refill(s) extended release diazepam 5 2020-0 No 5 mg = 1 Mem oria mg oral 2-11 tab, PO, l tablet 01:13: TID, 0 Imbler 00 Refill(s) valsartan 2020-0 Yes 320 mg [...] PO, l mEq oral 01:13: BID, 0 Ottoniel capsule, 00 Refill(s) extended release diazepam 5 2020-0 No 5 mg = 1 Mem oria mg oral 2-11 tab, PO, l tablet 01:13: TID, 0 Imbler 00 Refill(s) valsartan 2020-0 Yes 320 mg = 1 Me moria 320 mg oral 2-11 tab, PO, l tablet 01:13: Daily, 0 Imbler 00 Refill(s) Hydrochloro 2020-0 No 25 mg [...] PO, l mEq oral 01:13: BID, 0 Ottoniel capsule, 00 Refill(s) extended release diazepam 5 [...] PO, l mEq oral 01:13: BID, 0 Ottoniel capsule, 00 Refill(s) extended release diazepam 5 [...] s with feeding tube less than 14 [place] (Dobhoff, J-tube etc) and pediatric and patients. Magnesium 2020-0 No Notes: Memori a Sulfate 2-10 WASTE: F/P l 21:55: - Sink; E Imbler 00 - Municipal Trash Bin potassium 2020-0 [...] s with feeding tube less than 14 [place] (Dobhoff, J-tube etc) and pediatric and patients. Magnesium 2020-0 No Notes: Memori a Sulfate 2-10 WASTE: F/P l 21:55: - Sink; E Ottoniel - Municipal Trash Bin potassium 2020-0 No [...] s with feeding tube less than 14 [place] (Dobhoff, J-tube etc) and pediatric and patients. [...] s with feeding tube less than 14 [place] (Dobhoff, J-tube etc) and pediatric and patients. Magnesium 2020-0 No Notes: Memori a Sulfate 2-10 WASTE: F/P l 21:55: - Sink; E Imbler 00 - Municipal Trash Bin Ex-Lax Milk 2020-0 No Notes: Hector imtiaz of Magnesia 2-10 (Same as: l 20:34: Milk of Imbler 00 Magncarmine, MOM) Ex-Lax Milk 2020-0 No Notes: Hector imtiaz of Magnesia 2-10 (Same as: l 20:34: Milk of Ottoniel 00 Magnesia, MOM) Ex-Lax Milk 2020-0 No Notes: Hector imtiaz of Magnesia 2-10 (Same as: l 20:34: Milk of Ottoniel 00 Magnesia, MOM) Ex-Lax Milk 2020-0 No Notes: Hector imtiaz of Magnesia 2-10 (Same as: l 20:34: Milk of Ottoinel 00 Magncarmine, MOM) Labetalol 2020-0 No 105 mmHg, Me moria 2-10 Start l 19:54: date: 09/15/19 13:54:00 ENTRY LEVEL MANAGEMENT, Duration: 30 day, Stop date: 10/15/19 14:53:00 CDT, 0 Saline 2020-0 No Notes: Memoria Flush 0.9% 2-10 (Same as: l 19:54: BD Imbler Posiflush) Labetalol 2020-0 No 105 mmHg, Me moria 2-10 Start l 19:54: date: 09/15/19 13:54:00 ENTRY LEVEL MANAGEMENT, Duration: 30 day, Stop date: 10/15/19 14:53:00 CDT, 0 Saline 2020-0 No Notes: Memoria Flush 0.9% 2-10 (Same as: l 19:54: BD Ottoniel 00 Posiflush) Labetalol 2020-0 No 105 mmHg, Me moria 2-10 Start l 19:54: date: 09/15/19 13:54:00 ENTRY LEVEL MANAGEMENT, Duration: 30 day, Stop date: 10/15/19 14:53:00 CDT, 0 Saline 2020-0 No Notes: Memoria Flush 0.9% 2-10 (Same as: l 19:54: BD Imbler 00 Posiflush) Labetalol 2020-0 No 105 mmHg, Me moria 2-10 Start l 19:54: date: Ottoniel 00 09/15/19 13:54:00 ENTRY LEVEL MANAGEMENT, Duration: 30 day, Stop date: 10/15/19 14:53:00 CDT, 0 Saline 2020-0 No Notes: Memoria Flush 0.9% 2-10 (Same as: l 19:54: BD Imbler 00 Posiflush) Labetalol 2020-0 No 10 mg, Memori a 2-10 Route: l 18:46: IVP, Drug Ottoniel 00 form: INJ, ONCE, Dosing Weight 68.182, kg, Priority: STAT, Start date: 09/15/19 12:46:00 ENTRY LEVEL MANAGEMENT, Stop date: 09/15/19 12:46:00 ENTRY LEVEL MANAGEMENT Labetalol 2020-0 No 10 mg, Memori a 2-10 Route: l 18:46: IVP, Drug Imbler 00 form: INJ, ONCE, Dosing Weight 68.182, kg, Priority: STAT, Start date: 09/15/19 12:46:00 ENTRY LEVEL MANAGEMENT, Stop date: 09/15/19 12:46:00 ENTRY LEVEL MANAGEMENT Labetalol 2020-0 No 10 mg, Memori a 2-10 Route: l 18:46: IVP, Drug Ottoniel 00 form: INJ, ONCE, Dosing Weight 68.182, kg, Priority: STAT, Start date: 09/15/19 12:46:00 ENTRY LEVEL MANAGEMENT, Stop date: 09/15/19 12:46:00 ENTRY LEVEL MANAGEMENT Labetalol 2020-0 No 10 mg, Memori a 2-10 Route: l 18:46: IVP, Drug Ottoniel 00 form: INJ, ONCE, Dosing Weight 68.182, kg, Priority: STAT, Start date: 09/15/19 12:46:00 ENTRY LEVEL MANAGEMENT, Stop date: 09/15/19 12:46:00 ENTRY LEVEL MANAGEMENT Sodium 2020-0 No 1,000 mL, Memori a Chloride 2-10 Rate: 50 l 0.9% IV 18:45: ml/hr, Ottoniel 1,000 mL 00 Infuse over: 20 hr, Route: IV, Dosing Weight 68.182 kg, Total Volume: 1,000, Priority: STAT, Start date: 09/15/19 12:45:00 ENTRY LEVEL MANAGEMENT, Duration: 30 day, Stop date: 10/15/19 12:44:00 CDT, 1.68, m2, 0 Sodium 2020-0 No 50 mL, Memoria Chloride 2-10 Rate: 50 l 0.9% IV 50 18:45: ml/hr, Crystal nn mL 00 Infuse over: 1 hr, Route: IV, Dosing Weight 68.182 kg, Total Volume: 50, Use to FLUSH line AFTER tPA infusion., Priority: Routine, Start date: 09/15/19 12:45:00 ENTRY LEVEL MANAGEMENT, Duration: 1 doses or times, Stop date: 09/15/19 13:44:00 ENTRY LEVEL MANAGEMENT,... Alteplase 2020-0 No 6.1364 mg, Me moria 2-10 Route: IV, l 18:45: ONCE, Ottoniel 00 Dosing Weight 68.182, kg, Priority: STAT, Start date: 09/15/19 12:45:00 ENTRY LEVEL MANAGEMENT, Stop date: 09/15/19 12:45:00 ENTRY LEVEL MANAGEMENT Sodium 2020-0 No 1,000 mL, Memori a Chloride 2-10 Rate: 50 l 0.9% IV 18:45: ml/hr, Imbler 1,000 mL 00 Infuse over: 20 hr, Route: IV, Dosing Weight 68.182 kg, Total Volume: 1,000, Priority: STAT, Start date: 09/15/19 12:45:00 ENTRY LEVEL MANAGEMENT, Duration: 30 day, Stop date: 10/15/19 12:44:00 CDT, 1.68, m2, 0 Sodium 2020-0 No 50 mL, Memoria Chloride 2-10 Rate: 50 l 0.9% IV 50 18:45: ml/hr, Crystal nn mL 00 Infuse over: 1 hr, Route: IV, Dosing Weight 68.182 kg, Total Volume: 50, Use to FLUSH line AFTER tPA infusion., Priority: Routine, Start date: 09/15/19 12:45:00 ENTRY LEVEL MANAGEMENT, Duration: 1 doses or times, Stop date: 09/15/19 13:44:00 ENTRY LEVEL MANAGEMENT,... Alteplase 2020-0 No 6.1364 mg, Me moria 2-10 Route: IV, l 18:45: ONCE, Imbler 00 Dosing Weight 68.182, kg, Priority: STAT, Start date: 09/15/19 12:45:00 ENTRY LEVEL MANAGEMENT, Stop date: 09/15/19 12:45:00 ENTRY LEVEL MANAGEMENT Sodium 2020-0 No 1,000 mL, Memori a Chloride 2-10 Rate: 50 l 0.9% IV 18:45: ml/hr, Imbler 1,000 mL 00 Infuse over: 20 hr, Route: IV, Dosing Weight 68.182 kg, Total Volume: 1,000, Priority: STAT, Start date: 09/15/19 12:45:00 ENTRY LEVEL MANAGEMENT, Duration: 30 day, Stop date: 10/15/19 12:44:00 CDT, 1.68, m2, 0 Sodium 2020-0 No 50 mL, Memoria Chloride 2-10 Rate: 50 l 0.9% IV 50 18:45: ml/hr, Crystal nn mL 00 Infuse over: 1 hr, Route: IV, Dosing Weight 68.182 kg, Total Volume: 50, Use to FLUSH line AFTER tPA infusion., Priority: Routine, Start date: 09/15/19 12:45:00 ENTRY LEVEL MANAGEMENT, Duration: 1 doses or times, Stop date: 09/15/19 13:44:00 ENTRY LEVEL MANAGEMENT,... Alteplase 2020-0 No 6.1364 mg, Me moria 2-10 Route: IV, l 18:45: ONCE, Imbler 00 Dosing Weight 68.182, kg, Priority: STAT, Start date: 09/15/19 12:45:00 ENTRY LEVEL MANAGEMENT, Stop date: 09/15/19 12:45:00 ENTRY LEVEL MANAGEMENT Sodium 2020-0 No 1,000 mL, Memori a Chloride 2-10 Rate: 50 l 0.9% IV 18:45: ml/hr, Imbler 1,000 mL 00 Infuse over: 20 hr, Route: IV, Dosing Weight 68.182 kg, Total Volume: 1,000, Priority: STAT, Start date: 09/15/19 12:45:00 ENTRY LEVEL MANAGEMENT, Duration: 30 day, Stop date: 10/15/19 12:44:00 CDT, 1.68, m2, 0 Sodium 2020-0 No 50 mL, Memoria Chloride 2-10 Rate: 50 l 0.9% IV 50 18:45: ml/hr, Crystal nn mL 00 Infuse over: 1 hr, Route: IV, Dosing Weight 68.182 kg, Total Volume: 50, Use to FLUSH line AFTER tPA infusion., Priority: Routine, Start date: 09/15/19 12:45:00 ENTRY LEVEL MANAGEMENT, Duration: 1 doses or times, Stop date: 09/15/19 13:44:00 ENTRY LEVEL MANAGEMENT,... Alteplase 2020-0 No 6.1364 mg, Me moria 2-10 Route: IV, l 18:45: ONCE, Ottoniel 00 Dosing Weight 68.182, kg, Priority: STAT, Start date: 09/15/19 12:45:00 ENTRY LEVEL MANAGEMENT, Stop date: 09/15/19 12:45:00 ENTRY LEVEL MANAGEMENT Iohexol 2020-0 No 60 mL, Memoria 2-10 Route: l 18:18: IVP, Drug Ottoniel 00 Form: SOLN, kg, ONCALL, STAT, Start date: 09/15/19 12:18:00 ENTRY LEVEL MANAGEMENT, Duration: 1 doses or times, Dose = 2.2ml/kg, Max dose = 100ml -- "To be infused by Radiology Staff ONLY" Iohexol 2020-0 No 60 mL, Memoria 2-10 Route: l 18:18: IVP, Drug Imbler 00 Form: SOLN, kg, ONCALL, STAT, Start date: 09/15/19 12:18:00 ENTRY LEVEL MANAGEMENT, Duration: 1 doses or times, Dose = 2.2ml/kg, Max dose = 100ml -- "To be infused by Radiology Staff ONLY" Iohexol 2020-0 No 60 mL, Memoria 2-10 Route: l 18:18: IVP, Drug Ottoniel 00 Form: SOLN, kg, ONCALL, STAT, Start date: 09/15/19 12:18:00 ENTRY LEVEL MANAGEMENT, Duration: 1 doses or times, Dose = 2.2ml/kg, Max dose = 100ml -- "To be infused by Radiology Staff ONLY" Iohexol 2020-0 No 60 mL, Memoria 2-10 Route: l 18:18: IVP, Drug Imbler 00 Form: SOLN, kg, ONCALL, STAT, Start date: 09/15/19 12:18:00 ENTRY LEVEL MANAGEMENT, Duration: 1 doses or times, Dose = 2.2ml/kg, Max dose = 100ml -- "To be infused by Radiology Staff ONLY" Nicardipine 2020-0 No Notes: Hector imtiaz 2-10 Same as: l 18:11: Cardene Concentrat ion: (0.2 mg /1 ml ) Nicardipine 2020-0 No Notes: Hector imtiaz 2-10 Same as: l 18:11: Cardene Ottoniel 00 Concentrat ion: (0.2 mg /1 ml ) Nicardipine 2019-0 No Notes: Hector imtiaz 2-10 Same as: l 18:11: Cardene Imbler 00 Concentrat ion: (0.2 mg /1 ml ) Nicardipine 2019-0 No Notes: Hector imtiaz 2-10 Same as: l 18:11: Cardene Concentrat ion: (0.2 mg /1 ml ) Saline 0 No Notes: Memoria Flush 0.9% 2-10 Same as: l 17:53: BD Imbler 00 Posiflush Sterile Saline 2019-0 No Notes: Memoria Flush 0.9% 2-10 Same as: l 17:53: BD Imbler Posiflush Sterile Saline 2019-0 No Notes: Memoria Flush 0.9% 2-10 Same as: l 17:53: BD Ottoniel Posiflush Sterile Saline 2019-0 No Notes: Memoria Flush 0.9% 2-10 Same as: l 17:53: BD Ottoniel Posiflush Sterile Bupivicaine Bupivicaine 2020-0 No 5mL Common Elora Elora 1-27 Spirit 00:00: - [facility] Kenalog Kenalog 2020-0 No 1mL Common (Triamcinol (Triamcinol 1-27 S pirit one) one) 00:00: - [facility] Bupivicaine Bupivicaine 2020-0 No 5mL Common Elora Elora 1-27 Spirit 00:00: - [facility] Kenalog Kenalog 2020-0 No 1mL Common (Triamcinol (Triamcinol 1-27 S pirit one) one) 00:00: - [facility] Baclofen Baclofen Yes Mumtaz not Comm on Trivedi defined [facility] Diltiazem Diltiazem Yes Mumtaz not Co mmon HCl HCl Trivedi defined [facility] Biofreeze Biofreeze Yes Mumtaz not Co mmon Trivedi defined [facility] Potassium Potassium Yes Mumtaz not Co mmon Chloride Chloride Trivedi defined Spir it Ermelinda ER Ermelinda ER [facility] Omeprazole Omeprazole Yes Mumtaz not Common Trivedi defined [facility] Eliquis Eliquis Yes Mumtaz not Common Trivedi defined [facility] Diazepam Diazepam Yes Mumtaz not Comm on Trivedi defined [facility] HydrALAZINE HydrALAZINE Yes Mumtaz not Common HCl HCl Trivedi defined [facility] Gabapentin Gabapentin Yes Mumtaz not Common Trivedi defined [facility] Furosemide Furosemide Yes Mumtaz not Common Trivedi defined [facility] Acetaminoph Acetaminoph Yes Mumtaz not Common en en Trivedi defined [facility] Aspercreme Aspercreme Yes Mumtaz not Common Trivedi defined [facility] Diltiazem Diltiazem Yes Mumtaz not Co mmon HCl ER HCl ER Trivedi defined [facility] Coated [facility] Beads Beads [facility] hydroCHLORO hydroCHLORO No hydroCHLOR thiazide thiazide Othiazide [...] Mumtaz not Common Diskus Diskus Trivedi defined [facility] potassium potassium Yes Mumtaz not Co mmon Trivedi defined [facility] Valsartan Valsartan Yes Mumtaz not Co mmon Trivedi defined [facility] Losartan Losartan Yes Mumtaz not Comm on Potassium Potassium Trivedi defined Sp maurice [facility] Labetalol Labetalol Yes Mumtaz not Co mmon HCl HCl Trivedi defined [facility] Benzonatate Benzonatate Yes Mumtaz not Common Trivedi defined [facility] Hydrochloro Hydrochloro Yes Mumtaz not Common thiazide thiazide Trivedi defined Spir it [facility] Vital Signs Vital Name Observation Time Observation Value Comments Source height 2022-03-17 09:00:00 59 [in_i] Common [facility] weight 2022-03-17 09:00:00 159 [lb_av] [facility] temperature 2022-03-17 09:00:00 97.2 [degF] [facility] bmi 2022-03-17 09:00:00 32.11 kg/m2 Common S pirit - [facility] blood pressure 2022-03-17 09:00:00 132 mm[Hg] Common [facility] - systolic [facility] blood pressure 2022-03-17 09:00:00 84 mm[Hg] Common [facility] - diastolic [facility] height 2021-08-23 10:30:00 59 [in_i] Common S pirit [facility] weight 2021-08-23 10:30:00 159 [lb_av] Common S pirit - [facility] temperature 2021-08-23 10:30:00 98.0 [degF] Common S pirit [facility] bmi 2021-08-23 10:30:00 32.11 kg/m2 [facility] blood pressure 2021-08-23 10:30:00 144 mm[Hg] Common [facility] - systolic [facility] blood pressure 2021-08-23 10:30:00 86 mm[Hg] Common [facility] - diastolic [facility] Systolic (mm Hg) 2021-09-01 15:05:00 Hector rial Imbler Diastolic (mm Hg) 2021-09-01 15:05:00 Mem orial Ottoniel Heart Rate 2021-09-01 15:05:00 [facility] Imbler Respitory Rate 2021-09-01 15:05:00 Memori al Imbler Systolic (mm Hg) 2020-10-14 15:15:00 Hector rial Imbler Diastolic (mm Hg) 2020-10-14 15:15:00 Mem orial Imbler Heart Rate 2020-10-14 15:15:00 Memorial Imbler Respitory Rate 2020-10-14 15:15:00 Memori al Ottoniel Weight 2020-10-14 15:15:00 [facility] Imbler Systolic (mm Hg) 2020-09-23 16:25:00 Hector rial Ottoniel Diastolic (mm Hg) 2020-09-23 16:25:00 Mem orial Ottoniel Heart Rate 2020-09-23 16:25:00 Memorial Imbler Respitory Rate 2020-09-23 16:25:00 Memori al Ottoniel Height 2020-09-23 16:25:00 149.86 cm [facility] Imbler Weight 2020-09-23 16:25:00 [facility] Imbler BMI Calculated 2020-09-23 16:25:00 Memori al Ottoniel Systolic (mm Hg) 2020-08-03 21:57:00 Hector rial Imbler Diastolic (mm Hg) 2020-08-03 21:57:00 Mem orial Imbler Heart Rate 2020-08-03 21:57:00 [facility] Imbler Respitory Rate 2020-08-03 21:57:00 Memori al Imbler Height 2020-08-03 21:57:00 149.86 cm [facility] Imbler Weight 2020-08-03 21:57:00 [facility] Ottoniel BMI Calculated 2020-08-03 21:57:00 Memori al Imbler Systolic (mm Hg) 2020-06-17 15:10:00 Hector rial Ottoniel Diastolic (mm Hg) 2020-06-17 15:10:00 Mem orial Imbler Heart Rate 2020-06-17 15:10:00 [facility] Imbler Height 2020-06-17 15:10:00 149.86 cm [facility] Ottoniel Weight 2020-06-17 15:10:00 [facility] Imbler BMI Calculated 2020-06-17 15:10:00 Memori al Imbler Temperature Oral (F) 2019-09-26 19:34:00 98.3 F [facility] Imbler Heart Rate 2019-09-26 19:34:00 [facility] Imbler Respitory Rate 2019-09-26 19:34:00 Memori al Imbler Systolic (mm Hg) 2019-09-26 19:34:00 Hector rial Imbler Diastolic (mm Hg) 2019-09-26 19:34:00 Mem orial Ottoniel Temperature Oral (F) 2019-09-26 15:11:00 98.7 F [facility] Imbler Heart Rate 2019-09-26 15:11:00 [facility] Ottoniel Respitory Rate 2019-09-26 15:11:00 Memori al Imbler Systolic (mm Hg) 2019-09-26 15:11:00 Hector rial Imbler Diastolic (mm Hg) 2019-09-26 15:11:00 Mem orial Ottoniel Temperature Oral (F) 2019-09-26 09:25:00 98.3 F [facility] Ottoniel Heart Rate 2019-09-26 09:25:00 [facility] Imbler Respitory Rate 2019-09-26 09:25:00 Memori al Imbler Systolic (mm Hg) 2019-09-26 09:25:00 Hector rial Imbler Diastolic (mm Hg) 2019-09-26 09:25:00 Mem orial Imbler Height 2019-09-16 14:57:00 142.24 cm [facility] Imbler Weight 2019-09-16 14:57:00 [facility] Imbler Height 2019-09-15 18:20:00 142.24 cm [facility] Ottoniel BMI Calculated 2019-09-15 18:20:00 Memori al Imbler Weight 2019-09-15 18:20:00 [facility] Ottoniel Procedures Procedure Date / Time Performing Clinician Source Performed Chemodenervation of one 2022-08-17 16:14:00 Hector rial Imbler extremity; 1-4 muscle(s) Chemodenervation of one 2022-05-26 00:10:00 Hector rial Ottoniel extremity; 1-4 muscle(s) Thrombolysis, cerebral, by 2019-09-15 19:45:00 M [facility] Imbler intravenous infusion Plan of Care Planned Activity Planned Date Details Comments Source Future Scheduled 2022-07-20 COVID-19 VACCINE (#1) [facility] Test 19:44:22 [code = COVID-19 VACCINE (#1)] Future Scheduled 2022-07-20 SHINGLES VACCINES (1 Met [facility] Test 19:44:22 of 2) [code = SHINGLES VACCINES (1 of 2)] Future Scheduled 2022-07-20 65+ [facility] 19:[facility]:22 VACCINE (1 - PCV) [code = 65+ PNEUMOCOCCAL VACCINE (1 - PCV)] Future Scheduled 2022-07-20 INFLUENZA VACCINE Method [facility] Test 19:44:22 [code = INFLUENZA VACCINE] Future Scheduled 2022-06-09 HEPATITIS B VACCINES Met [facility] Test 02:50:07 (1 of 3 - 3-dose series) [code = HEPATITIS B VACCINES (1 of 3 - 3-dose series)] Future Scheduled 2022-06-09 COVID-19 VACCINE (#1) [facility] Test 02:50:07 [code = COVID-19 VACCINE (#1)] Future Scheduled 2022-06-09 SHINGLES VACCINES (1 [facility] Test 02:50:07 of 2) [code = SHINGLES VACCINES (1 of 2)] Future Scheduled 2022-06-09 65[facility] 02:50:07 VACCINE (1 - PCV) [code = 65+ PNEUMOCOCCAL VACCINE (1 - PCV)] Future Scheduled 2022-06-09 [facility]ACCINE [facility] 02:50:07 [code = INFLUENZA VACCINE] Encounters Start End Encounter Admission Attending Care Care Encounter Source Date/Time Date/Time Type Type Clinicians Facility Department ID 2022-03-21 Outpatient [facility] [id number] Common 16:42:01 [facility] 2022-03-16 Outpatient [facility] [id number] Common 14:43:00 [facility] 2022-03-15 Outpatient [facility] [id number] Common 13:47:01 [facility] 2021-12-01 Outpatient [facility] [id number] 15:23:[id number] [place] [address] 2021-09-01 Outpatient 3 [id number] [facility] CVA [facility] 12:36:39 [id number] 2021-09-01 Outpatient 3 [id number] [facility] REF [facility] 12:35:16 [facility] 2021-09-01 Outpatient 3 [id number] ENCPL YODIT [facility] 11:51:13 [facility] [place] [facility] 2021-09-01 Outpatient 3 [id number] E[facility] REF [id number] [facility] 11:45:49 [id number] [place] [facility] 2021-09-01 Outpatient 3 [id number] E[facility] OT [facility] 09:13:32 0218 [facility] [place] [facility] 2021-09-01 Outpatient 3 [id number] ENCPL REF [id number] [facility] 09:12:29 0214 [facility] [place] [facility] 2021-08-31 Out[facility] [id number] Common 13:25:14 [id number] [facility] 2021-08-31 [facility] [id number] Common 13:24:49 [id number] [facility] 2021-08-31 Outpatient ST[facility] ST[facility] [id number] Common 12:43:02 [id number] [facility] 2021-08-31 Outpatient [facility] ST[facility] [id number] Common 12:13:01 [id number] [facility] 2021-08-31 Outpatient [facility] ST[facility] [id number] Common 11:31:48 [id number] [facility] 2021-08-31 Outpatient [facility] ST[facility] [id number] Common 11:03:31 [id number] [facility] 2022-11-14 2022-11-14 Outpatient [facility]IE MHIE [id number] [facility]oria 10:45:00 10:45:00 13 owen Alcazar 2022-11-14 2022-11-14 Outpatient MHIE MHIE [id number] [facility]oria 10:45:00 10:45:00 13 owen Alcazar 2022-09-28 2022-09-28 Outpatient MHIE MHIE [id number] [facility]oria 10:30:00 10:30:00 12 owen Alcazar 2022-09-28 2022-09-28 Outpatient MHIE MHIE [id number] [facility]oria 10:30:00 10:30:00 12 owen Alcazar 2022-09-21 2022-09-21 Outpatient MHIE MHIE [id number] [facility]oria 09:30:00 09:30:00 14 owen Alcazar 2022-09-21 2022-09-21 Outpatient MHIE MHIE [id number] [facility]oria 09:30:00 09:30:00 14 owen Alcazar 2022-09-07 2022-09-07 Outpatient MHIE MHIE [id number] [facility]oria 16:15:00 16:15:00 15 owen Alcazar 2022-09-07 2022-09-07 Outpatient MHIE MHIE [id number] Memoria 16:15:00 16:15:00 15 owen Alcazar 2022-08-17 2022-08-18 Outpatient MHIE MNA [id number] Memoria 15:30:00 05:59:59 Neurology 10 owen Alcazar 2022-08-17 2022-08-18 Outpatient MHIE MNA [id number] Memoria 15:30:00 05:59:59 Neurology 10 owen Alcazar 2022-08-17 2022-08-17 Outpatient SAMUEL FontanaSCHER MISCHER [id number] 09:30:00 23:59:59 Yaniv 10 Gasper 2022-08-17 2022-08-17 Outpatient RUSSELL FontanaNESCHER MISCHER [id number] 09:30:00 23:59:59 Yaniv 10 Gasper 2022-08-17 2022-08-17 Outpatient MHIE MHIE [id number] Memoria 09:30:00 09:30:00 10 owen Alcazar 2022-08-17 2022-08-17 Outpatient MHIE MHIE [id number] Memoria 09:30:00 09:30:00 10 owen Alcazar 2022-08-17 2022-08-17 Outpatient MHIE MHIE [id number] Memoria 09:30:00 09:30:00 10 owen Alcazar 2022-08-03 2022-08-03 Outpatient MHIE MHIE [id number] Memoria 16:00:00 16:00:00 11 owen Alcazar 2022-08-03 2022-08-03 Outpatient MHIE MHIE [id number] Memoria 16:00:00 16:00:00 11 owen Alcazar 2022-05-25 2022-05-26 Outpatient nullFlavo MNA [id number] Memoria 14:00:00 04:59:59 r Neurology 09 owen Alcazar 2022-05-25 2022-05-26 Outpatient nullFlavo MNA [id number] Memoria 14:00:00 04:59:59 r Neurology 09 l Paulo Alcazar 2022-05-25 2022-05-26 Outpatient nullFlavo MNA [id number] Memoria 14:00:00 04:59:59 r Neurology 09 owen Alcazar 2022-05-25 2022-05-25 Outpatient RUSSELL FontanaMISCHER MHMISCHER [id number] 09:00:00 23:59:59 Yaniv 09 Gasper 2022-05-25 2022-05-25 Outpatient RUSSELL FontanaNESCHER MISCHER [id number] 09:00:00 23:59:59 Yaniv 09 Gasper 2022-05-25 2022-05-25 Outpatient MHIE MHIE [id number] Memoria 09:00:00 09:00:00 09 owen Alcazar 2022-05-25 2022-05-25 Outpatient MHIE MHIE [id number] Memoria 09:00:00 09:00:00 09 owen Alcazar 2022-03-30 2022-03-30 Ambulatory nullFlavo MNA [id number] Memoria 16:15:00 16:15:00 Pre-Reg r Neurology 08 owen Alcazar 2022-03-30 2022-03-30 Ambulatory nullFlavo MNA [id number] Memoria 16:15:00 16:15:00 Pre-Reg r Neurology 08 owen Alcazar 2022-03-30 2022-03-30 Ambulatory nullFlavo MNA [id number] Memoria 16:15:00 16:15:00 Pre-Reg r Neurology 08 owen Alcazar 2022-03-30 2022-03-30 Outpatient MHIE MHIE [id number] Memoria 11:15:00 11:15:00 08 owen Alcazar 2022-03-30 2022-03-30 Outpatient MHIE MHIE [id number] Memoria 11:15:00 11:15:00 08 owen Alcazar 2022-03-30 2022-03-30 Outpatient RUSSELL FontanaNESCHER MHMISCHER [id number] 11:15:00 11:15:00 Yaniv 08 Gasper 2022-03-30 2022-03-30 Outpatient RUSSELL FontanaNESCHER MISCHER [id number] 11:15:00 11:15:00 Yaniv 08 Gasper 2022-03-28 2022-03-28 [facility] [id number] Co mmon 00:00:00 00:00:00 [facility] 2022-03-17 2022-03-17 OFFICE STLC STLC [id number] Co mmon 00:00:00 00:00:00 VISIT Spirit ESTAB PT - [facility] LEVEL 4 [facility] 2022-02-27 2022-02-28 Outpatient nullFlavo MNA [id number] Memoria 15:00:00 04:59:59 r Neurology 07 l Paulo Alcazar 2022-02-27 2022-02-28 Outpatient nullFlavo MNA [id number] Memoria 15:00:00 04:59:59 r Neurology 07 l Paulo Alcazar 2022-02-27 2022-02-28 Outpatient nullFlavo MNA [id number] Memoria 15:00:00 04:59:59 r Neurology 07 l Paulo Alcazar 2022-02-27 2022-02-27 Outpatient SAMUEL FontanaSCHER MISCHER [id number] 10:00:00 23:59:59 Yaniv 07 Gasper 2022-02-27 2022-02-27 Outpatient SAMUEL FontanaSCHER MISCHER [id number] 10:00:00 23:59:59 Yaniv 07 Gasper 2022-02-27 2022-02-27 Outpatient MHIE MHIE [id number] Memoria 10:00:00 10:00:00 07 owen Alcazar 2022-02-27 2022-02-27 Outpatient MHIE MHIE [id number] Memoria 10:00:00 10:00:00 07 owen Alcazar 2021-12-08 2021-12-09 Outpatient nullFlavo MNA [id number] Memoria 14:45:00 04:59:59 r Neurology 06 l Paulo Alcazar 2021-12-08 2021-12-09 Outpatient nullFlavo MNA [id number] Memoria 14:45:00 04:59:59 r Neurology 06 l Paulo Alcazar 2021-12-08 2021-12-09 Outpatient nullFlavo MNA [id number] Memoria 14:45:00 04:59:59 r Neurology 06 l Paulo Alcazar 2021-12-08 2021-12-08 Outpatient SAMUEL FontanaSCHER MISCHER [id number] 09:45:00 23:59:59 Yaniv 06 Gasper 2021-12-08 2021-12-08 Outpatient SAMUEL FontanaSCHER MISCHER [id number] 09:45:00 23:59:59 Yaniv 06 Gasper 2021-12-08 2021-12-08 Outpatient MHIE MHIE [id number] Memoria 09:45:00 09:45:00 06 owen Alcazar 2021-12-08 2021-12-08 Outpatient MHIE MHIE [id number] Memoria 09:45:00 09:45:00 06 owen Alcazar 2021-10-27 2021-10-28 Outpatient nullFlavo MNA [id number] Memoria 14:30:00 04:59:59 r Neurology 05 owen Alcazar 2021-10-27 2021-10-28 Outpatient nullFlavo MNA [id number] Memoria 14:30:00 04:59:59 r Neurology 05 owen Alcazar 2021-10-27 2021-10-28 Outpatient nullFlavo MNA [id number] Memoria 14:30:00 04:59:59 r Neurology 05 owen Alcazar 2021-10-27 2021-10-27 [facility]AS[id number] 09:30:00 23:59:59 Yaniv Carol Jackman 2021-10-27 2021-10-27 Outpatient RUSSELL FontanaNEMARLENY MISCHER [id number] 09:30:00 23:59:59 Yaniv Carol Jackman 2021-10-27 2021-10-27 Outpatient MHIE MHIE [id number] Memoria 09:30:00 09:30:00 05 owen Ottoniel 2021-10-27 2021-10-27 Outpatient MHIE MHIE [id number] Memoria 09:30:00 09:30:00 05 owen Ottoniel 2021-09-01 2021-09-02 Outpatient nullFlavo MNA [id number] Memoria 15:00:00 05:59:59 r Neurology 04 owen Alcazar 2021-09-01 2021-09-02 Outpatient nullFlavo MNA [id number] Memoria 15:00:00 05:59:59 r Neurology 04 owen Alcazar 2021-09-01 2021-09-02 Outpatient nullFlavo MNA [id number] Memoria 15:00:00 05:59:59 r Neurology 04 owen Alcazar 2021-09-01 2021-09-01 Outpatient RUSSELL FontanaNESCHCEASAR MISCHER [id number] 09:00:00 23:59:59 Yaniv Renny Jackman 2021-09-01 2021-09-01 Outpatient [place] [id number] 09:00:00 23:59:59 Yaniv Renny Jackman 2021-09-01 2021-09-01 Outpatient MHIE MHIE [id number] Memoria 09:00:00 09:00:00 04 owen Alcazar 2021-09-01 2021-09-01 Outpatient MHIE MHIE [id number] Memoria 09:00:00 09:00:00 04 owen Alcazar 2021-08-23 2021-08-23 OFFICE [facility] [id number] Co mmon 00:00:00 00:00:00 VISIT Spirit ESTAB PT - [facility]I LEVEL 4 [facility] 2021-05-18 2021-05-20 Outside nullFlavo MNA [id number] Memoria 13:14:38 04:59:59 Medical r Neurology 05 l Records Paulo Alcazar 2021-05-18 2021-05-20 Outside nullFlavo MNA [id number] Memoria 13:14:38 04:59:59 Medical r Neurology 05 l Records Paulo Alcazar 2021-05-18 2021-05-20 Outside nullFlavo MNA [id number] Memoria 13:14:38 04:59:59 Medical r Neurology 05 l Records Paulo Alcazar 2021-05-18 2021-05-19 [facility] [id number] 08:14:38 23:59:59 05 2021-05-18 2021-05-19 Outpatient MISCHER MISCHER [id number] 08:14:38 23:59:59 05 2021-03-01 2021-03-03 Outside nullFlavo MNA [id number] Memoria 13:37:14 04:59:59 Medical r Neurology 04 l Records Paulo Alcazar 2021-03-01 2021-03-03 Outside nullFlavo MNA [id number] Memoria 13:37:14 04:59:59 Medical r Neurology 04 l Records Paulo Alcazar 2021-03-01 2021-03-03 Outside nullFlavo MNA [id number] Memoria 13:37:14 04:59:59 Medical r Neurology 04 l Records Paulo Alcazar 2021-03-01 2021-03-02 Outpatient MHMISCHER MHMISCHER [id number] 08:37:14 23:59:59 04 2021-03-01 2021-03-02 Outpatient MHMISCHER MHMISCHER [id number] 08:37:14 23:59:59 04 2021-02-15 2021-02-15 Outpatient [facility] [id number] Common 00:00:00 00:00:00 [facility] 2020-11-30 2020-12-02 Outside nullFlavo MNA [id number] Memoria 17:03:43 04:59:59 Medical r Neurology 03 l Records Paulo Alcazar 2020-11-30 2020-12-02 Outside nullFlavo MNA [id number] Memoria 17:03:43 04:59:59 Medical r Neurology 03 l Records Paulo Alcazar 2020-11-30 2020-12-02 Outside nullFlavo MNA [id number] Memoria 17:03:43 04:59:59 Medical r Neurology 03 l Records Paulo Alcazar 2020-11-30 2020-12-01 Outpatient MHMISCHER MHMISCHER [id number] 12:03:43 23:59:59 03 2020-11-30 2020-12-01 Outpatient MHMISCHER MHMISCHER [id number] 12:03:43 23:59:59 03 2020-11-12 2020-11-14 Outside nullFlavo MNA [id number] Memoria 13:52:31 04:59:59 Medical r Neurology 02 l Records Paulo Alcazar 2020-11-12 2020-11-14 Outside nullFlavo MNA [id number] Memoria 13:52:31 04:59:59 Medical r Neurology 02 l Records Paulo Alcazar 2020-11-12 2020-11-14 Outside nullFlavo MNA [id number] Memoria 13:52:31 04:59:59 Medical r Neurology 02 l Records Paulo Alcazar 2020-11-12 2020-11-13 Outpatient MHMISCHER MHMISCHER [id number] 08:52:31 23:59:59 02 2020-11-12 2020-11-13 Outpatient MHMISCHER MHMISCHER [id number] 08:52:31 23:59:59 2020-10-26 2020-10-26 [id number] Common 00:00:00 00:00:00 [facility] 2020-10-22 2020-10-24 Outside nullFlavo MNA [id number] Memoria 21:10:49 04:59:59 Medical r Neurology 01 l Records Paulo Alcazar 2020-10-22 2020-10-24 Outside nullFlavo MNA [id number] Memoria 21:10:49 04:59:59 Medical r Neurology 01 l Records Paulo Alcazar 2020-10-22 2020-10-24 Outside nullFlavo MNA [id number] Memoria 21:10:49 04:59:59 Medical r Neurology 01 l Records Paulo Alcazar 2020-10-22 2020-10-23 Outpatient MHMISCHER MHMISCHER [id number] 16:10:49 23:59:59 2020-10-22 2020-10-23 Outpatient MHMISCHER MHMISCHER [id number] 16:10:49 23:59:59 2020-10-19 2020-10-21 Outside nullFlavo MNA [id number] Memoria 15:35:15 04:59:59 Medical r Neurology 00 l Records Paulo Alcazar 2020-10-19 2020-10-21 Outside nullFlavo MNA [id number] Memoria 15:35:15 04:59:59 Medical r Neurology 00 l Records Paulo Alcazar 2020-10-19 2020-10-21 Outside nullFlavo MNA [id number] Memoria 15:35:15 04:59:59 Medical r Neurology 00 l Records Pualo Alcazar 2020-10-19 2020-10-20 Outpatient MHMISCHER MHMISCHER [id number] 10:35:15 23:59:59 2020-10-19 2020-10-20 Outpatient MHMISCHER MHMISCHER [id number] 10:35:15 23:59:59 2020-10-14 2020-10-15 Outpatient nullFlavo MNA [id number] Memoria 15:15:00 05:59:59 r Neurology 03 l Paulo Alcazar 2020-10-14 2020-10-15 Outpatient nullFlavo MNA [id number] Memoria 15:15:00 05:59:59 r Neurology 03 l Paulo Alcazar 2020-10-14 2020-10-15 Outpatient nullFlavo MNA [id number] Memoria 15:15:00 05:59:59 r Neurology 03 owen Alcazar 2020-10-14 2020-10-14 Outpatient RUSSELL FontanaNESCHER [facility] [id number] 09:15:00 23:59:59 Yaniv Gasper 2020-10-14 2020-10-14 [facility]patient Add[facility] [id number] 09:15:00 23:59:59 Yaniv 03 Gasper 2020-10-14 2020-10-14 Outpatient MHIE MHIE [id number] Memoria 09:15:00 09:15:00 03 owen Alcazar 2020-10-14 2020-10-14 Outpatient MHIE MHIE [id number] Memoria 09:15:00 09:15:00 03 owen Alcazar 2020-09-23 2020-09-24 Outpatient nullFlavo MNA [id number] Memoria 16:15:00 05:59:59 r Neurology 02 owen Alcazar 2020-09-23 2020-09-24 Outpatient nullFlavo MNA [id number] Memoria 16:15:00 05:59:59 r Neurology 02 owen Alcazar 2020-09-23 2020-09-24 Outpatient nullFlavo MNA [id number] Memoria 16:15:00 05:59:59 r Neurology 02 owen Alcazar 2020-09-23 2020-09-23 Outpatient RUSSELL FontanaNESCHER [facility] [id number] 10:15:00 23:59:59 Yaniv Gasper 2020-09-23 2020-09-23 Outpatient RUSSELL FontanaNESCHER MISCHER [id number] 10:15:00 23:59:59 Yaniv 02 Gasper 2020-09-23 2020-09-23 Outpatient MHIE MHIE [id number] Memoria 10:15:00 10:15:00 02 l Ottoniel 2020-09-23 2020-09-23 Outpatient MHIE MHIE [id number] Memoria 10:15:00 10:15:00 02 l Ottoniel 2020-08-03 2020-08-04 Outpatient nullFlavo MNA [id number] Memoria 22:00:00 05:59:59 r Neurology 01 l Paulo Alcazar 2020-08-03 2020-08-04 Outpatient nullFlavo MNA [id number] Memoria 22:00:00 05:59:59 r Neurology 01 l Paulo Alcazar 2020-08-03 2020-08-04 Outpatient nullFlavo MNA [id number] Memoria 22:00:00 05:59:59 r Neurology 01 l Paulo Alcazar 2020-08-03 2020-08-03 [facility] Add[id number] 16:00:00 23:59:59 Yaniv 01 Gasper 2020-08-03 2020-08-03 [facility]patient [id number] 16:00:00 23:59:59 Yaniv 01 Gasper 2020-08-03 2020-08-03 Outpatient MHIE MHIE [id number] Memoria 16:00:00 16:00:00 01 owen Alcazar 2020-08-03 2020-08-03 Outpatient MHIE MHIE [id number] Memoria 16:00:00 16:00:00 01 l Ottoniel 2020-07-20 2020-07-20 Outpatient STLMLC STLMLC [id number] Common 00:00:00 00:00:00 [facility] 2020-06-17 2020-06-18 Outpatient nullFlavo MNA [id number] Memoria 15:15:00 05:59:59 r Neurology 00 l [place] [facility] 2020-06-17 2020-06-18 Outpatient nullFlavo MNA [id number] Memoria 15:15:00 05:59:59 r Neurology 00 l [place] [facility] 2020-06-17 2020-06-18 Outpatient nullFlavo MNA [id number] Memoria 15:15:00 05:59:59 r Neurology 00 l [place] Ot[place] 2020-06-17 2020-06-17 Outpatient Add[facility] [id number] 09:15:00 23:59:59 Yaniv 00 Gasper 2020-06-17 2020-06-17 [facility] [place] [id number] 09:15:00 23:59:59 Yaniv 00 Gasper 2020-06-17 2020-06-17 Outpatient MHIE MHIE [id number] Memoria 09:15:00 09:15:00 00 [facility] 2020-06-17 2020-06-17 Outpatient MHIE MHIE [id number] Memoria 09:15:00 09:15:00 00 [facility] 2020-02-23 2020-02-23 [facility] [id number] Common 09:00:00 09:00:00 [facility] 2019-09-15 2019-09-27 Inpatient nullFlavo [facility] [id number] Memoria 17:37:00 00:48:[address] 2019-09-15 2019-09-27 Inpatient nullFlavo [facility] [id number] Memoria 17:37:00 00:48:[address] 2019-09-15 2019-09-27 Inpatient nullFlavo [facility] [id number] Memoria 17:37:00 00:48:[address] 2019-09-15 2019-09-26 Outpatient Sydnee [facility] [id number] 11:37:00 18:48:00 Rick Pagan [facility] 2019-09-15 2019-09-26 [facility] [id number] 11:37:00 18:48:00 Nosunilldin [address] [facility] 2019-09-15 2019-09-15 Outpatient [facility]ART[facility] [id number] [facility] 13:19:00 13:19:00 2019-09-15 2019-09-15 Inpatient E [facility] [id number] [facility] 13:54:00 11:12:00 2019-09-09 2019-09-09 [facility] [id number] Common 10:43:00 10:43:00 t [facility] 2019-09-01 2019-09-01 Out[facility] [id number] Common 15:00:00 15:00:00 t Bone Bone and Spiri t and Joint [facility] Results Test Description Test Time Test Comments Results Result Comments Source CHEM PANEL 2019-09-25 11:51:00 Test Item Value Reference Range Interpretation Comme nts Glucose Lvl (test code = Glucose Lvl) 91 70-99 [facility] [id number] 11:51:00 Test Item Value Reference Range Interpretation Comments BUN (test code = BUN) 14 7-22 [facility] [id number] 11:51:00 Test Item Value Reference Range Interpretation Comments Creatinine Lvl (test code = Creatinine 0.68 0.50-1.40 Lvl) [facility] [id number] 11:51:00 Test Item Value Reference Range Interpretation Comments Sodium Lvl (test code = Sodium Lvl) 135 135-145 [facility] [id number] 11:51:00 Test Item Value Reference Range Interpretation Comments Potassium Lvl (test code = Potassium 4.4 3.5-5.1 Lvl) [facility] [id number] 11:51:00 Test Item Value Reference Range Interpretation Comments Chloride Lvl (test code = Chloride Lvl) 103 95-109 [facility] [id number] 11:51:00 Test Item Value Reference Range Interpretation Comments CO2 (test code = CO2) 28 24-32 [facility] [id number] 11:51:00 Test Item Value Reference Range Interpretation Comments Calcium Lvl (test code = Calcium Lvl) 9.2 8.5-10.5 [facility] [id number] 11:51:00 Test Item Value Reference Range Interpretation Comments AGAP (test code = AGAP) 8.4 10.0-20.0 [facility] [employer] [id number] 11:51:00 Test Item Value Reference Range Interpretation Comments eGFR (test code = eGFR) 81 [facility] [id number] 11:51:00 Test Item Value Reference Range Interpretation Comments Magnesium Lvl (test code = Magnesium 1.7 1.8-2.4 Lvl) [facility]2020-02-20 11:51:00 Test Item Value Reference Range Interpretation Comments Phosphorus (test code = Phosphorus) 3.7 2.5-4.5 [facility]2020-02-20 11:51:00 Test Item Value Reference Range Interpretation Comments Glucose Lvl (test code = Glucose Lvl) 91 70-99 [place] [id number] 11:51:00 Test Item Value Reference Range Interpretation Comments BUN (test code = BUN) 14 7-22 [facility]2020-02-20 11:51:00 Test Item Value Reference Range Interpretation Comments Creatinine Lvl (test code = Creatinine 0.68 0.50-1.40 Lvl) [facility]2020-02-20 11:51:00 Test Item Value Reference Range Interpretation Comments Sodium Lvl (test code = Sodium Lvl) 135 135-145 [place] [id number] 11:51:00 Test Item Value Reference Range Interpretation Comments Potassium Lvl (test code = Potassium 4.4 3.5-5.1 Lvl) [facility]2020-02-20 11:51:00 Test Item Value Reference Range Interpretation Comments Chloride Lvl (test code = Chloride Lvl) 103 95-109 [facility]2020-02-20 11:51:00 Test Item Value Reference Range Interpretation Comments CO2 (test code = CO2) 28 24-32 [place] [id number] 11:51:00 Test Item Value Reference Range Interpretation Comments Calcium Lvl (test code = Calcium Lvl) 9.2 8.5-10.5 [place] [id number] 11:51:00 Test Item Value Reference Range Interpretation Comments AGAP (test code = AGAP) 8.4 10.0-20.0 [place] [id number] 11:51:00 Test Item Value Reference Range Interpretation Comments eGFR (test code = eGFR) 81 [facility]2020-02-20 11:51:00 Test Item Value Reference Range Interpretation Comments Magnesium Lvl (test code = Magnesium 1.7 1.8-2.4 Lvl) [place] [id number] 11:51:00 Test Item Value Reference Range Interpretation Comments Phosphorus (test code = Phosphorus) 3.7 2.5-4.5 [facility]2020-02-20 11:51:00 Test Item Value Reference Range Interpretation Comments Glucose Lvl (test code = Glucose Lvl) 91 70-99 [facility]2020-02-20 11:51:00 Test Item Value Reference Range Interpretation Comments BUN (test code = BUN) 14 7-22 [facility]2020-02-20 11:51:00 Test Item Value Reference Range Interpretation Comments Creatinine Lvl (test code = Creatinine 0.68 0.50-1.40 Lvl) [facility]2020-02-20 11:51:00 Test Item Value Reference Range Interpretation Comments Sodium Lvl (test code = Sodium Lvl) 135 135-145 [facility]2020-02-20 11:51:00 Test Item Value Reference Range Interpretation Comments Potassium Lvl (test code = Potassium 4.4 3.5-5.1 Lvl) [facility]2020-02-20 11:51:00 Test Item Value Reference Range Interpretation Comments Chloride Lvl (test code = Chloride Lvl) 103 95-109 [facility]2020-02-20 11:51:00 Test Item Value Reference Range Interpretation Comments CO2 (test code = CO2) 28 24-32 [facility]2020-02-20 11:51:00 Test Item Value Reference Range Interpretation Comments Calcium Lvl (test code = Calcium Lvl) 9.2 8.5-10.5 [facility]2020-02-20 11:51:00 Test Item Value Reference Range Interpretation Comments AGAP (test code = AGAP) 8.4 10.0-20.0 [facility]2020-02-20 11:51:00 Test Item Value Reference Range Interpretation Comments eGFR (test code = eGFR) 81 [facility]2020-02-20 11:51:00 Test Item Value Reference Range Interpretation Comments Magnesium Lvl (test code = Magnesium 1.7 1.8-2.4 Lvl) [facility]2020-02-20 11:51:00 Test Item Value Reference Range Interpretation Comments Phosphorus (test code = Phosphorus) 3.7 2.5-4.5 [facility]2020-02-20 11:51:00 Test Item Value Reference Range Interpretation Comments Glucose Lvl (test code = Glucose Lvl) 91 70-99 [facility]2020-02-20 11:51:00 Test Item Value Reference Range Interpretation Comments BUN (test code = BUN) 14 7-22 [facility]2020-02-20 11:51:00 Test Item Value Reference Range Interpretation Comments Creatinine Lvl (test code = Creatinine 0.68 0.50-1.40 Lvl) [facility]2020-02-20 11:51:00 Test Item Value Reference Range Interpretation Comments Sodium Lvl (test code = Sodium Lvl) 135 135-145 [facility]2020-02-20 11:51:00 Test Item Value Reference Range Interpretation Comments Potassium Lvl (test code = Potassium 4.4 3.5-5.1 Lvl) [facility]2020-02-20 11:51:00 Test Item Value Reference Range Interpretation Comments Chloride Lvl (test code = Chloride Lvl) 103 95-109 [facility]2020-02-20 11:51:00 Test Item Value Reference Range Interpretation Comments CO2 (test code = CO2) 28 24-32 [facility]2020-02-20 11:51:00 Test Item Value Reference Range Interpretation Comments Calcium Lvl (test code = Calcium Lvl) 9.2 8.5-10.5 [facility]2020-02-20 11:51:00 Test Item Value Reference Range Interpretation Comments AGAP (test code = AGAP) 8.4 10.0-20.0 [facility]2020-02-20 11:51:00 Test Item Value Reference Range Interpretation Comments eGFR (test code = eGFR) 81 [facility]2020-02-20 11:51:00 Test Item Value Reference Range Interpretation Comments Magnesium Lvl (test code = Magnesium 1.7 1.8-2.4 Lvl) [facility]2020-02-20 11:51:00 Test Item Value Reference Range Interpretation Comments Phosphorus (test code = Phosphorus) 3.7 2.5-4.5 [facility]2020-02-16 10:10:00 Test Item Value Reference Range Interpretation Comments Phosphorus (test code = Phosphorus) 2.1 2.5-4.5 [place] [id number] 10:10:00 Test Item Value Reference Range Interpretation Comments Glucose Lvl (test code = Glucose Lvl) 100 70-99 [facility]2020-02-16 10:10:00 Test Item Value Reference Range Interpretation Comments BUN (test code = BUN) 12 7-22 [facility]2020-02-16 10:10:00 Test Item Value Reference Range Interpretation Comments Creatinine Lvl (test code = Creatinine 0.58 0.50-1.40 Lvl) [facility]2020-02-16 10:10:00 Test Item Value Reference Range Interpretation Comments Sodium Lvl (test code = Sodium Lvl) 140 135-145 [facility]2020-02-16 10:10:00 Test Item Value Reference Range Interpretation Comments Potassium Lvl (test code = Potassium 3.4 3.5-5.1 Lvl) [facility]2020-02-16 10:10:00 Test Item Value Reference Range Interpretation Comments Chloride Lvl (test code = Chloride Lvl) 107 95-109 [facility]2020-02-16 10:10:00 Test Item Value Reference Range Interpretation Comments CO2 (test code = CO2) 27 24-32 [facility]2020-02-16 10:10:00 Test Item Value Reference Range Interpretation Comments Calcium Lvl (test code = Calcium Lvl) 8.7 8.5-10.5 [facility]2020-02-16 10:10:00 Test Item Value Reference Range Interpretation Comments AGAP (test code = AGAP) 9.4 10.0-20.0 [facility]2020-02-16 10:10:00 Test Item Value Reference Range Interpretation Comments eGFR (test code = eGFR) 85 [facility]2020-02-16 10:10:00 Test Item Value Reference Range Interpretation Comments Magnesium Lvl (test code = Magnesium 1.8 1.8-2.4 Lvl) [facility] HospitalDlhzdaeOACGIDMYCF4562-11-04 10:10:00 Test Item Value Reference Range Interpretation Comments Segs (test code = Segs) 70.6 45.0-75.0 [facility] HospitalEdavmdxPAKZHZDSYK0640-70-49 10:10:00 Test Item Value Reference Range Interpretation Comments Lymphocytes (test code = Lymphocytes) 18.4 20.0-40.0 [facility] HospitalFkimzemKLVBJZWRJD0766-32-78 10:10:00 Test Item Value Reference Range Interpretation Comments Monocytes (test code = Monocytes) 7.3 2.0-12.0 [facility] HospitalZtviiqzPEEDHXMSPH7868-46-11 10:10:00 Test Item Value Reference Range Interpretation Comments Eosinophils (test code = 3.1 See_Comment [A utomated message] The Eosinophils) system which ge nerated this result tra nsmitted reference range : <=4.0. The reference r natasha was not used to int erpret this result as normal/abnormal . [facility] HospitalHimjhscKVNARQGKBU8193-45-94 10:10:00 Test Item Value Reference Range Interpretation Comments Basophils (test code = 0.6 See_Comment [Aut omated message] The Basophils) system which ge nerated this result tra nsmitted reference range : <=1.0. The reference r natasha was not used to int erpret this result as normal/abnormal . [facility] HospitalMatulamIWIOVLOXXU5176-12-38 10:10:00 Test Item Value Reference Range Interpretation Comments Neutrophils # (test code = Neutrophils 5.8 1.5-8.1 #) [facility] HospitalCfpehdyLDQDZJYOMI5687-54-66 10:10:00 Test Item Value Reference Range Interpretation Comments Lymphocytes # (test code = Lymphocytes 1.5 1.0-5.5 #) [facility] HospitalOmgdpkmONYDZBLSEN0675-70-05 10:10:00 Test Item Value Reference Range Interpretation Comments Monocytes # (test code 0.6 See_Comment [Aut omated message] The = Monocytes #) system which generated this result tra nsmitted reference range : <=0.8. The reference r natasha was not used to int erpret this result as normal/abnormal . [facility] HospitalJeivghmRZEWTYWMDN3209-76-72 10:10:00 Test Item Value Reference Range Interpretation Comments Eosinophils # (test code 0.3 See_Comment [A utomated message] The = Eosinophils #) system whic h generated this result tra nsmitted reference range : <=0.5. The reference r natasha was not used to int erpret this result as normal/abnormal . [facility] HospitalEbwgvqoTBIAEOBQPP0772-84-60 10:10:00 Test Item Value Reference Range Interpretation Comments WBC (test code = WBC) 8.2 3.7-10.4 [facility] HospitalZtoaaxiPTCWECMOCW9041-10-87 10:10:00 Test Item Value Reference Range Interpretation Comments RBC (test code = RBC) 3.65 4.20-5.40 [facility] RegionalVmmuaeiTVVDFFXKJH3062-80-00 10:10:00 Test Item Value Reference Range Interpretation Comments Hgb (test code = Hgb) 12.1 12.0-16.0 [facility]XcmzwgrULAXEEQETV2983-64-84 10:10:00 Test Item Value Reference Range Interpretation Comments Hct (test code = Hct) 35.9 36.0-48.0 [facility]NimttkrRSRDJYBKKL9448-39-63 10:10:00 Test Item Value Reference Range Interpretation Comments MCV (test code = MCV) 98.4 80.0-98.0 [facility] MichiganMfioqlfBGXDJXKMHR1556-12-73 10:10:00 Test Item Value Reference Range Interpretation Comments MCH (test code = MCH) 33.1 pg 27.0-31.0 [facility] MichiganLlblvehXNVHUJHYWG7107-36-71 10:10:00 Test Item Value Reference Range Interpretation Comments MCHC (test code = MCHC) 33.7 32.0-36.0 [facility] MichiganAtjukfhOJCTEZBRSQ2322-16-60 10:10:00 Test Item Value Reference Range Interpretation Comments RDW (test code = RDW) 12.9 11.5-14.5 [facility] RegionalHjokncwGRYGLGTPCW7073-64-03 10:10:00 Test Item Value Reference Range Interpretation Comments Platelet (test code = Platelet) 217 133-450 [facility]XtpznpsMNLOMULNOM3571-09-28 10:10:00 Test Item Value Reference Range Interpretation Comments MPV (test code = MPV) 9.3 7.4-10.4 [facility]annPARATHYROID SMAISDI9269-79-46 10:10:00 Test Item Value Reference Range Interpretation Comments Ca Ion WB (test code = Ca Ion WB) 1.20 1.05-1.25 [facility]annPARATHYROID DYBPAZP2403-86-29 10:10:00 Test Item Value Reference Range Interpretation Comments Ca Norm WB (test code = Ca Norm WB) 1.20 1.05-1.25 [facility] RegionalCHEM [id number] 10:10:00 Test Item Value Reference Range Interpretation Comments Phosphorus (test code = Phosphorus) 2.1 2.5-4.5 [facility]CHE[facility] EFBDW6145-14-00 10:10:00 Test Item Value Reference Range Interpretation Comments Glucose Lvl (test code = Glucose Lvl) 100 70-99 [facility]2020-02-16 10:10:00 Test Item Value Reference Range Interpretation Comments BUN (test code = BUN) 12 7-22 [facility]2020-02-16 10:10:00 Test Item Value Reference Range Interpretation Comments Creatinine Lvl (test code = Creatinine 0.58 0.50-1.40 Lvl) [facility]2020-02-16 10:10:00 Test Item Value Reference Range Interpretation Comments Sodium Lvl (test code = Sodium Lvl) 140 135-145 [facility]2020-02-16 10:10:00 Test Item Value Reference Range Interpretation Comments Potassium Lvl (test code = Potassium 3.4 3.5-5.1 Lvl) [facility]2020-02-16 10:10:00 Test Item Value Reference Range Interpretation Comments Chloride Lvl (test code = Chloride Lvl) 107 95-109 [facility]2020-02-16 10:10:00 Test Item Value Reference Range Interpretation Comments CO2 (test code = CO2) 27 24-32 [facility]2020-02-16 10:10:00 Test Item Value Reference Range Interpretation Comments Calcium Lvl (test code = Calcium Lvl) 8.7 8.5-10.5 [facility]2020-02-16 10:10:00 Test Item Value Reference Range Interpretation Comments AGAP (test code = AGAP) 9.4 10.0-20.0 [facility]2020-02-16 10:10:00 Test Item Value Reference Range Interpretation Comments eGFR (test code = eGFR) 85 [facility]2020-02-16 10:10:00 Test Item Value Reference Range Interpretation Comments Magnesium Lvl (test code = Magnesium 1.8 1.8-2.4 Lvl) [facility] HospitalXgrfnqeKQGMVKNVWB2541-50-14 10:10:00 Test Item Value Reference Range Interpretation Comments Segs (test code = Segs) 70.6 45.0-75.0 [facility] HospitalIfmfhwsIQHZBWXWUL9836-48-95 10:10:00 Test Item Value Reference Range Interpretation Comments Lymphocytes (test code = Lymphocytes) 18.4 20.0-40.0 [facility] HospitalZcgxdkqYGOXNGPWVY0996-06-11 10:10:00 Test Item Value Reference Range Interpretation Comments Monocytes (test code = Monocytes) 7.3 2.0-12.0 [facility] HospitalSfigbudWUIDWIMFPB3959-94-68 10:10:00 Test Item Value Reference Range Interpretation Comments Eosinophils (test code = 3.1 See_Comment [A utomated message] The Eosinophils) system which ge nerated this result tra nsmitted reference range : <=4.0. The reference r natasha was not used to int erpret this result as normal/abnormal . [facility] HospitalQmmkpohHOMLIOHIVC6203-83-70 10:10:00 Test Item Value Reference Range Interpretation Comments Basophils (test code = 0.6 See_Comment [Aut omated message] The Basophils) system which ge nerated this result tra nsmitted reference range : <=1.0. The reference r natasha was not used to int erpret this result as normal/abnormal . [facility] HospitalMotxeqgHBJPXPFYMT2839-04-18 10:10:00 Test Item Value Reference Range Interpretation Comments Neutrophils # (test code = Neutrophils 5.8 1.5-8.1 #) [facility] HospitalPptevyaGBVNCMBHOR4356-81-55 10:10:00 Test Item Value Reference Range Interpretation Comments Lymphocytes # (test code = Lymphocytes 1.5 1.0-5.5 #) [facility] HospitalPazaghaRCYMNJNBEG0481-67-92 10:10:00 Test Item Value Reference Range Interpretation Comments Monocytes # (test code 0.6 See_Comment [Aut omated message] The = Monocytes #) system which generated this result tra nsmitted reference range : <=0.8. The reference r natasha was not used to int erpret this result as normal/abnormal . [facility] HospitalTsegjcwKYGCXPGODD1210-55-83 10:10:00 Test Item Value Reference Range Interpretation Comments Eosinophils # (test code 0.3 See_Comment [A utomated message] The = Eosinophils #) system whic h generated this result tra nsmitted reference range : <=0.5. The reference r natasha was not used to int erpret this result as normal/abnormal . [facility] HospitalUtpeemjDGIUQXRWOR1233-66-91 10:10:00 Test Item Value Reference Range Interpretation Comments WBC (test code = WBC) 8.2 3.7-10.4 [facility] HospitalOolhbvdGQJWDJJJPQ3361-43-10 10:10:00 Test Item Value Reference Range Interpretation Comments RBC (test code = RBC) 3.65 4.20-5.40 [facility] RegionalXqlymrwIEFJNKOFEG0789-28-35 10:10:00 Test Item Value Reference Range Interpretation Comments Hgb (test code = Hgb) 12.1 12.0-16.0 [facility]SthkvaxEIPIDUDYRN7330-40-75 10:10:00 Test Item Value Reference Range Interpretation Comments Hct (test code = Hct) 35.9 36.0-48.0 [facility]VudrwgnOTMMMRAQIW7293-08-44 10:10:00 Test Item Value Reference Range Interpretation Comments MCV (test code = MCV) 98.4 80.0-98.0 [facility] MichiganTpyhksuNMIVPJCEOT4742-63-00 10:10:00 Test Item Value Reference Range Interpretation Comments MCH (test code = MCH) 33.1 pg 27.0-31.0 [facility] MichiganNvkafblVQMCTPWLQD3216-69-64 10:10:00 Test Item Value Reference Range Interpretation Comments MCHC (test code = MCHC) 33.7 32.0-36.0 [facility]ZfmtpgsBPZAYRANTK9128-29-03 10:10:00 Test Item Value Reference Range Interpretation Comments RDW (test code = RDW) 12.9 11.5-14.5 [facility] RegionalFsuctvhPYOKWRVQIS7247-51-08 10:10:00 Test Item Value Reference Range Interpretation Comments Platelet (test code = Platelet) 217 133-450 [facility]NuaosujATFQZVBCXR2821-85-28 10:10:00 Test Item Value Reference Range Interpretation Comments MPV (test code = MPV) 9.3 7.4-10.4 [facility]annPARATHYROID SIBCGPB0570-60-26 10:10:00 Test Item Value Reference Range Interpretation Comments Ca Ion WB (test code = Ca Ion WB) 1.20 1.05-1.25 [facility]annPARATHYROID XVCKLOE7276-03-97 10:10:00 Test Item Value Reference Range Interpretation Comments Ca Norm WB (test code = Ca Norm WB) 1.20 1.05-1.25 [facility]CHE[facility] [id number] 10:10:00 Test Item Value Reference Range Interpretation Comments Phosphorus (test code = Phosphorus) 2.1 2.5-4.5 [facility]CHE[facility] LVQZF8184-87-79 10:10:00 Test Item Value Reference Range Interpretation Comments Glucose Lvl (test code = Glucose Lvl) 100 70-99 [facility]2020-02-16 10:10:00 Test Item Value Reference Range Interpretation Comments BUN (test code = BUN) 12 7-22 [facility]2020-02-16 10:10:00 Test Item Value Reference Range Interpretation Comments Creatinine Lvl (test code = Creatinine 0.58 0.50-1.40 Lvl) [facility]2020-02-16 10:10:00 Test Item Value Reference Range Interpretation Comments Sodium Lvl (test code = Sodium Lvl) 140 135-145 [facility]2020-02-16 10:10:00 Test Item Value Reference Range Interpretation Comments Potassium Lvl (test code = Potassium 3.4 3.5-5.1 Lvl) [facility]2020-02-16 10:10:00 Test Item Value Reference Range Interpretation Comments Chloride Lvl (test code = Chloride Lvl) 107 95-109 [facility]2020-02-16 10:10:00 Test Item Value Reference Range Interpretation Comments CO2 (test code = CO2) 27 24-32 [facility]2020-02-16 10:10:00 Test Item Value Reference Range Interpretation Comments Calcium Lvl (test code = Calcium Lvl) 8.7 8.5-10.5 [facility]2020-02-16 10:10:00 Test Item Value Reference Range Interpretation Comments AGAP (test code = AGAP) 9.4 10.0-20.0 [facility]2020-02-16 10:10:00 Test Item Value Reference Range Interpretation Comments eGFR (test code = eGFR) 85 [facility]2020-02-16 10:10:00 Test Item Value Reference Range Interpretation Comments Magnesium Lvl (test code = Magnesium 1.8 1.8-2.4 Lvl) [facility] HospitalZdvdpnpPQPFTIMPBJ1892-66-42 10:10:00 Test Item Value Reference Range Interpretation Comments Segs (test code = Segs) 70.6 45.0-75.0 [facility] HospitalSxdsmtaILDPAXFEUJ1712-81-05 10:10:00 Test Item Value Reference Range Interpretation Comments Lymphocytes (test code = Lymphocytes) 18.4 20.0-40.0 [facility] HospitalGsphfrbHLVCTSCRAB7935-66-00 10:10:00 Test Item Value Reference Range Interpretation Comments Monocytes (test code = Monocytes) 7.3 2.0-12.0 [facility] HospitalWrphazjWHMMQDEPLK1182-99-27 10:10:00 Test Item Value Reference Range Interpretation Comments Eosinophils (test code = 3.1 See_Comment [A utomated message] The Eosinophils) system which ge nerated this result tra nsmitted reference range : <=4.0. The reference r natasha was not used to int erpret this result as normal/abnormal . [facility] HospitalRetddqqPKHVTSJZFQ7625-80-14 10:10:00 Test Item Value Reference Range Interpretation Comments Basophils (test code = 0.6 See_Comment [Aut omated message] The Basophils) system which ge nerated this result tra nsmitted reference range : <=1.0. The reference r natasha was not used to int erpret this result as normal/abnormal . [facility] HospitalDhwhqqjFUHQHYJVQY0437-58-26 10:10:00 Test Item Value Reference Range Interpretation Comments Neutrophils # (test code = Neutrophils 5.8 1.5-8.1 #) [facility] HospitalNbqjkaaKIGOOBPBAA6277-38-47 10:10:00 Test Item Value Reference Range Interpretation Comments Lymphocytes # (test code = Lymphocytes 1.5 1.0-5.5 #) [facility] HospitalXqronfvARWHBNETZC7879-21-59 10:10:00 Test Item Value Reference Range Interpretation Comments Monocytes # (test code 0.6 See_Comment [Aut omated message] The = Monocytes #) system which generated this result tra nsmitted reference range : <=0.8. The reference r natasha was not used to int erpret this result as normal/abnormal . [facility] HospitalJbmtqmbJRACKEIULA2742-97-10 10:10:00 Test Item Value Reference Range Interpretation Comments Eosinophils # (test code 0.3 See_Comment [A utomated message] The = Eosinophils #) system whic h generated this result tra nsmitted reference range : <=0.5. The reference r natasha was not used to int erpret this result as normal/abnormal . [facility] HospitalAfeeekzVIJJUNKKHN6414-42-16 10:10:00 Test Item Value Reference Range Interpretation Comments WBC (test code = WBC) 8.2 3.7-10.4 [facility] HospitalXplhjdjVYZSACQLJI0218-94-50 10:10:00 Test Item Value Reference Range Interpretation Comments RBC (test code = RBC) 3.65 4.20-5.40 [facility] RegionalVjbuxfnNQZHPXXYSV6072-67-51 10:10:00 Test Item Value Reference Range Interpretation Comments Hgb (test code = Hgb) 12.1 12.0-16.0 [facility]PrsfmfgXMSHONOMPD4009-07-24 10:10:00 Test Item Value Reference Range Interpretation Comments Hct (test code = Hct) 35.9 36.0-48.0 [facility]IdvlxkwATDNOSKFEK7121-59-84 10:10:00 Test Item Value Reference Range Interpretation Comments MCV (test code = MCV) 98.4 80.0-98.0 [facility] MichiganLxvsqgbRLCHNLYVXZ8708-04-45 10:10:00 Test Item Value Reference Range Interpretation Comments MCH (test code = MCH) 33.1 pg 27.0-31.0 [facility]IcnbojoLKWVKCTOBP9721-46-44 10:10:00 Test Item Value Reference Range Interpretation Comments MCHC (test code = MCHC) 33.7 32.0-36.0 [facility] MichiganZqyuqwrVBKQNSFGHZ4582-18-48 10:10:00 Test Item Value Reference Range Interpretation Comments RDW (test code = RDW) 12.9 11.5-14.5 [facility] RegionalVunmyfvEPDCYOARLQ7742-95-83 10:10:00 Test Item Value Reference Range Interpretation Comments Platelet (test code = Platelet) 217 133-450 [facility]VasedqzWYTRKHBAOP9997-12-18 10:10:00 Test Item Value Reference Range Interpretation Comments MPV (test code = MPV) 9.3 7.4-10.4 [facility] [place]annPARATHYROID VVUUSGA4195-93-26 10:10:00 Test Item Value Reference Range Interpretation Comments Ca Ion WB (test code = Ca Ion WB) 1.20 1.05-1.25 [facility]annPARATHYROID JAAEZSH0714-30-42 10:10:00 Test Item Value Reference Range Interpretation Comments Ca Norm WB (test code = Ca Norm WB) 1.20 1.05-1.25 [facility]CHE[facility] HQNKI0769-11-50 10:10:00 Test Item Value Reference Range Interpretation Comments Phosphorus (test code = Phosphorus) 2.1 2.5-4.5 [facility]CHE[facility] [id number] 10:10:00 Test Item Value Reference Range Interpretation Comments Glucose Lvl (test code = Glucose Lvl) 100 70-99 [facility]2020-02-16 10:10:00 Test Item Value Reference Range Interpretation Comments BUN (test code = BUN) 12 7-22 [facility]2020-02-16 10:10:00 Test Item Value Reference Range Interpretation Comments Creatinine Lvl (test code = Creatinine 0.58 0.50-1.40 Lvl) [facility]2020-02-16 10:10:00 Test Item Value Reference Range Interpretation Comments Sodium Lvl (test code = Sodium Lvl) 140 135-145 [facility]2020-02-16 10:10:00 Test Item Value Reference Range Interpretation Comments Potassium Lvl (test code = Potassium 3.4 3.5-5.1 Lvl) [facility]2020-02-16 10:10:00 Test Item Value Reference Range Interpretation Comments Chloride Lvl (test code = Chloride Lvl) 107 95-109 [facility]2020-02-16 10:10:00 Test Item Value Reference Range Interpretation Comments CO2 (test code = CO2) 27 24-32 [facility]2020-02-16 10:10:00 Test Item Value Reference Range Interpretation Comments Calcium Lvl (test code = Calcium Lvl) 8.7 8.5-10.5 [facility]2020-02-16 10:10:00 Test Item Value Reference Range Interpretation Comments AGAP (test code = AGAP) 9.4 10.0-20.0 [facility]2020-02-16 10:10:00 Test Item Value Reference Range Interpretation Comments eGFR (test code = eGFR) 85 [facility]2020-02-16 10:10:00 Test Item Value Reference Range Interpretation Comments Magnesium Lvl (test code = Magnesium 1.8 1.8-2.4 Lvl) [facility] HospitalHlthtmgJBITJMTLEG8509-32-30 10:10:00 Test Item Value Reference Range Interpretation Comments Segs (test code = Segs) 70.6 45.0-75.0 [facility] HospitalEocoivwUJUWVWHGKL5128-01-57 10:10:00 Test Item Value Reference Range Interpretation Comments Lymphocytes (test code = Lymphocytes) 18.4 20.0-40.0 [facility] HospitalXqiexbaHYLGETMDPX0537-29-35 10:10:00 Test Item Value Reference Range Interpretation Comments Monocytes (test code = Monocytes) 7.3 2.0-12.0 [facility] HospitalMlvlumtPZZRRZFVOK7178-59-24 10:10:00 Test Item Value Reference Range Interpretation Comments Eosinophils (test code = 3.1 See_Comment [A utomated message] The Eosinophils) system which ge nerated this result tra nsmitted reference range : <=4.0. The reference r natasha was not used to int erpret this result as normal/abnormal . [facility] HospitalHzejnohALQJFNWNIH4495-70-03 10:10:00 Test Item Value Reference Range Interpretation Comments Basophils (test code = 0.6 See_Comment [Aut omated message] The Basophils) system which ge nerated this result tra nsmitted reference range : <=1.0. The reference r natasha was not used to int erpret this result as normal/abnormal . [facility] HospitalDseyzadGMOIZTDNUP7709-04-69 10:10:00 Test Item Value Reference Range Interpretation Comments Neutrophils # (test code = Neutrophils 5.8 1.5-8.1 #) [facility] HospitalSjvlemeGZWKIAABWR0483-54-50 10:10:00 Test Item Value Reference Range Interpretation Comments Lymphocytes # (test code = Lymphocytes 1.5 1.0-5.5 #) [facility] HospitalTdndmstUVKSCUBVWT6696-01-09 10:10:00 Test Item Value Reference Range Interpretation Comments Monocytes # (test code 0.6 See_Comment [Aut omated message] The = Monocytes #) system which generated this result tra nsmitted reference range : <=0.8. The reference r natasha was not used to int erpret this result as normal/abnormal . [facility] HospitalFhvifcjIVLBBPQZKC7464-00-02 10:10:00 Test Item Value Reference Range Interpretation Comments Eosinophils # (test code 0.3 See_Comment [A utomated message] The = Eosinophils #) system whic h generated this result tra nsmitted reference range : <=0.5. The reference r natasha was not used to int erpret this result as normal/abnormal . [facility] HospitalMwekawrERYDUBZMGQ0073-77-92 10:10:00 Test Item Value Reference Range Interpretation Comments WBC (test code = WBC) 8.2 3.7-10.4 [facility] HospitalHwcducjBBKXYVABHW2245-89-77 10:10:00 Test Item Value Reference Range Interpretation Comments RBC (test code = RBC) 3.65 4.20-5.40 [facility]LuvuxaeHSVNRBSZBE8612-83-24 10:10:00 Test Item Value Reference Range Interpretation Comments Hgb (test code = Hgb) 12.1 12.0-16.0 [facility] HospitalYzlkuqsNHPKEQDHNX3179-74-40 10:10:00 Test Item Value Reference Range Interpretation Comments Hct (test code = Hct) 35.9 36.0-48.0 [facility] MichiganUrsjdcuMNYOVUSNKM1776-06-17 10:10:00 Test Item Value Reference Range Interpretation Comments MCV (test code = MCV) 98.4 80.0-98.0 [facility] MichiganFobmkeyWGHVRPHNAO1564-22-38 10:10:00 Test Item Value Reference Range Interpretation Comments MCH (test code = MCH) 33.1 pg 27.0-31.0 [facility] MichiganGorxnluDRBYZJTRNM1376-07-68 10:10:00 Test Item Value Reference Range Interpretation Comments MCHC (test code = MCHC) 33.7 32.0-36.0 [facility] HospitalXibmxuiLOUFEPUVUW7867-25-81 10:10:00 Test Item Value Reference Range Interpretation Comments RDW (test code = RDW) 12.9 11.5-14.5 [facility]IgtbsvlOOYDKRMCYX3764-23-14 10:10:00 Test Item Value Reference Range Interpretation Comments Platelet (test code = Platelet) 217 133-450 [facility] HospitalFyqpikeZCNUXEPUNO8364-63-31 10:10:00 Test Item Value Reference Range Interpretation Comments MPV (test code = MPV) 9.3 7.4-10.4 [facility] RegionalPARATHYROID EQWECIG6018-52-85 10:10:00 Test Item Value Reference Range Interpretation Comments Ca Ion WB (test code = Ca Ion WB) 1.20 1.05-1.25 [facility]ATHY[facility] SCAOHCV6813-49-06 10:10:00 Test Item Value Reference Range Interpretation Comments Ca Norm WB (test code = Ca Norm WB) 1.20 1.05-1.25 [facility] [id number] 10:20:00 Test Item Value Reference Range Interpretation Comments Glucose Lvl (test code = Glucose Lvl) 105 70-99 [facility]2020-02-15 10:20:00 Test Item Value Reference Range Interpretation Comments BUN (test code = BUN) 10 - [facility]2020-02-15 10:20:00 Test Item Value Reference Range Interpretation Comments Creatinine Lvl (test code = Creatinine 0.52 0.50-1.40 Lvl) [facility]2020-02-15 10:20:00 Test Item Value Reference Range Interpretation Comments Sodium Lvl (test code = Sodium Lvl) 140 135-145 [facility]2020-02-15 10:20:00 Test Item Value Reference Range Interpretation Comments Potassium Lvl (test code = Potassium 3.3 3.5-5.1 Lvl) [facility] TexasTraianaFORMERLY [facility], [facility]ITALDPEBT8034-65-71 10:20:00 Test Item Value Reference Range Interpretation Comments Chloride Lvl (test code = Chloride Lvl) 105 95-109 [facility] [facility]2020-02-15 10:20:00 Test Item Value Reference Range Interpretation Comments CO2 (test code = CO2) 29 24-32 [facility]2020-02-15 10:20:00 Test Item Value Reference Range Interpretation Comments Calcium Lvl (test code = Calcium Lvl) 9.1 8.5-10.5 [facility]2020-02-15 10:20:00 Test Item Value Reference Range Interpretation Comments AGAP (test code = AGAP) 9.3 10.0-20.0 [facility]2020-02-15 10:20:00 Test Item Value Reference Range Interpretation Comments eGFR (test code = eGFR) 88 [facility]2020-02-15 10:20:00 Test Item Value Reference Range Interpretation Comments Glucose Lvl (test code = Glucose Lvl) 105 70-99 [facility]2020-02-15 10:20:00 Test Item Value Reference Range Interpretation Comments BUN (test code = BUN) 10 - [facility]2020-02-15 10:20:00 Test Item Value Reference Range Interpretation Comments Creatinine Lvl (test code = Creatinine 0.52 0.50-1.40 Lvl) [facility]2020-02-15 10:20:00 Test Item Value Reference Range Interpretation Comments Sodium Lvl (test code = Sodium Lvl) 140 135-145 [facility]2020-02-15 10:20:00 Test Item Value Reference Range Interpretation Comments Potassium Lvl (test code = Potassium 3.3 3.5-5.1 Lvl) [facility]TraianaFORMERLY [facility], [facility] [id number] 10:20:00 Test Item Value Reference Range Interpretation Comments Chloride Lvl (test code = Chloride Lvl) 105 95-109 [facility]2020-02-15 10:20:00 Test Item Value Reference Range Interpretation Comments CO2 (test code = CO2) - [facility] [id number] 10:20:00 Test Item Value Reference Range Interpretation Comments Calcium Lvl (test code = Calcium Lvl) 9.1 8.5-10.5 [facility] [id number] 10:20:00 Test Item Value Reference Range Interpretation Comments AGAP (test code = AGAP) 9.3 10.0-20.0 [facility] [id number] 10:20:00 Test Item Value Reference Range Interpretation Comments eGFR (test code = eGFR) 88 [facility] [id number] 10:20:00 Test Item Value Reference Range Interpretation Comments Glucose Lvl (test code = Glucose Lvl) 105 70-99 [facility] [id number] 10:20:00 Test Item Value Reference Range Interpretation Comments BUN (test code = BUN) 10 - [facility] [id number] 10:20:00 Test Item Value Reference Range Interpretation Comments Creatinine Lvl (test code = Creatinine 0.52 0.50-1.40 Lvl) [facility] [id number] 10:20:00 Test Item Value Reference Range Interpretation Comments Sodium Lvl (test code = Sodium Lvl) 140 135-145 [facility] [id number] 10:20:00 Test Item Value Reference Range Interpretation Comments Potassium Lvl (test code = Potassium 3.3 3.5-5.1 Lvl) [facility] [id number] 10:20:00 Test Item Value Reference Range Interpretation Comments Chloride Lvl (test code = Chloride Lvl) 105 95-109 [facility] [id number] 10:20:00 Test Item Value Reference Range Interpretation Comments CO2 (test code = CO2) 29 24-32 [facility]2020-02-15 10:20:00 Test Item Value Reference Range Interpretation Comments Calcium Lvl (test code = Calcium Lvl) 9.1 8.5-10.5 [facility]2020-02-15 10:20:00 Test Item Value Reference Range Interpretation Comments AGAP (test code = AGAP) 9.3 10.0-20.0 [facility]2020-02-15 10:20:00 Test Item Value Reference Range Interpretation Comments eGFR (test code = eGFR) 88 [facility]2020-02-15 10:20:00 Test Item Value Reference Range Interpretation Comments Glucose Lvl (test code = Glucose Lvl) 105 70-99 [facility]2020-02-15 10:20:00 Test Item Value Reference Range Interpretation Comments BUN (test code = BUN) 10 7-22 [facility]2020-02-15 10:20:00 Test Item Value Reference Range Interpretation Comments Creatinine Lvl (test code = Creatinine 0.52 0.50-1.40 Lvl) [facility]2020-02-15 10:20:00 Test Item Value Reference Range Interpretation Comments Sodium Lvl (test code = Sodium Lvl) 140 135-145 [facility] TexasTraianaFORMERLY [facility], [facility] [id number] 10:20:00 Test Item Value Reference Range Interpretation Comments Potassium Lvl (test code = Potassium 3.3 3.5-5.1 Lvl) [facility]TraianaFORMERLY [facility], [facility] [id number] 10:20:00 Test Item Value Reference Range Interpretation Comments Chloride Lvl (test code = Chloride Lvl) 105 95-109 [facility]2020-02-15 10:20:00 Test Item Value Reference Range Interpretation Comments CO2 (test code = CO2) 29 24-32 [facility]2020-02-15 10:20:00 Test Item Value Reference Range Interpretation Comments Calcium Lvl (test code = Calcium Lvl) 9.1 8.5-10.5 [facility]2020-02-15 10:20:00 Test Item Value Reference Range Interpretation Comments AGAP (test code = AGAP) 9.3 10.0-20.0 [facility]2020-02-15 10:20:00 Test Item Value Reference Range Interpretation Comments eGFR (test code = eGFR) 88 [place] 209480-02-15 07:34:00 Test Item Value Reference Range Interpretation Comments Magnesium Lvl (test code = Magnesium 2.0 1.8-2.4 Lvl) [place] 042650-02-15 07:34:00 Test Item Value Reference Range Interpretation Comments Segs (test code = Segs) 71.2 45.0-75.0 [place] [address]-02-15 07:34:00 Test Item Value Reference Range Interpretation Comments Lymphocytes (test code = Lymphocytes) 19.2 20.0-40.0 [place] [address]-02-15 07:34:00 Test Item Value Reference Range Interpretation Comments Monocytes (test code = Monocytes) 7.6 2.0-12.0 [place] [address]-02-15 07:34:00 Test Item Value Reference Range Interpretation Comments Eosinophils (test code = 1.6 See_Comment [A utomated message] The Eosinophils) system which ge nerated this result tra nsmitted reference range : <=4.0. The reference r natasha was not used to int erpret this result as normal/abnormal . [place] [address]-02-15 07:34:00 Test Item Value Reference Range Interpretation Comments Basophils (test code = 0.4 See_Comment [Aut omated message] The Basophils) system which ge nerated this result tra nsmitted reference range : <=1.0. The reference r natasha was not used to int erpret this result as normal/abnormal . [place] 042650-02-15 07:34:00 Test Item Value Reference Range Interpretation Comments Neutrophils # (test code = Neutrophils 5.2 1.5-8.1 #) [place] [address]-02-15 07:34:00 Test Item Value Reference Range Interpretation Comments Lymphocytes # (test code = Lymphocytes 1.4 1.0-5.5 #) [place] [address]-02-15 07:34:00 Test Item Value Reference Range Interpretation Comments Monocytes # (test code 0.6 See_Comment [Aut omated message] The = Monocytes #) system which generated this result tra nsmitted reference range : <=0.8. The reference r natasha was not used to int erpret this result as normal/abnormal . [place] [address]-02-15 07:34:00 Test Item Value Reference Range Interpretation Comments Eosinophils # (test code 0.1 See_Comment [A utomated message] The = Eosinophils #) system whic h generated this result tra nsmitted reference range : <=0.5. The reference r natasha was not used to int erpret this result as normal/abnormal . [facility] H[id number] 07:34:00 Test Item Value Reference Range Interpretation Comments WBC (test code = WBC) 7.4 3.7-10.4 [id number] 07:34:00 Test Item Value Reference Range Interpretation Comments RBC (test code = RBC) 3.73 4.20-5.40 [facility]MlcdynkOFSHGJOYVE6979-22-35 07:34:00 Test Item Value Reference Range Interpretation Comments Hgb (test code = Hgb) 12.4 12.0-16.0 [facility] Mic[id number] 07:34:00 Test Item Value Reference Range Interpretation Comments Hct (test code = Hct) 36.3 36.0-48.0 [facility] MichiganAkebejjPEFLEZMSXH9756-20-73 07:34:00 Test Item Value Reference Range Interpretation Comments MCV (test code = MCV) 97.2 80.0-98.0 [facility] MichiganMmvezngEQCTTICAQE1243-81-90 07:34:00 Test Item Value Reference Range Interpretation Comments MCH (test code = MCH) 33.4 pg 27.0-31.0 [facility] MichiganWwmewdvYVGDJMXOHW2751-57-16 07:34:00 Test Item Value Reference Range Interpretation Comments MCHC (test code = MCHC) 34.3 32.0-36.0 [facility] MichiganRrcfmihGSSUULPFOC9822-44-97 07:34:00 Test Item Value Reference Range Interpretation Comments RDW (test code = RDW) 13.6 11.5-14.5 [facility] MichiganMztvxkcAMFGPXCDTC6259-77-55 07:34:00 Test Item Value Reference Range Interpretation Comments Platelet (test code = Platelet) 191 133-450 [facility] MichiganTcxevhgHBEPKIGHJY0472-81-43 07:34:00 Test Item Value Reference Range Interpretation Comments MPV (test code = MPV) 10.1 7.4-10.4 [facility] RegionalPARATHYROID [id number] 07:34:00 Test Item Value Reference Range Interpretation Comments Ca Ion WB (test code = Ca Ion WB) 1.02 1.05-1.25 [facility]annPARATHYROID [id number] 07:34:00 Test Item Value Reference Range Interpretation Comments Ca Norm WB (test code = Ca Norm WB) 1.04 1.05-1.25 [facility] TexasannCHEM [id number] 07:34:00 Test Item Value Reference Range Interpretation Comments Magnesium Lvl (test code = Magnesium 2.0 1.8-2.4 Lvl) [facility] HospitalYebnbruYPCAWYUVHW7869-25-49 07:34:00 Test Item Value Reference Range Interpretation Comments Segs (test code = Segs) 71.2 45.0-75.0 [facility] Hosp[id number] 07:34:00 Test Item Value Reference Range Interpretation Comments Lymphocytes (test code = Lymphocytes) 19.2 20.0-40.0 [facility] Hos[id number] 07:34:00 Test Item Value Reference Range Interpretation Comments Monocytes (test code = Monocytes) 7.6 2.0-12.0 [facility] HospitalJfsawrqDJTFGSDJVF8298-74-72 07:34:00 Test Item Value Reference Range Interpretation Comments Eosinophils (test code = 1.6 See_Comment [A utomated message] The Eosinophils) system which ge nerated this result tra nsmitted reference range : <=4.0. The reference r natasha was not used to int erpret this result as normal/abnormal . [facility] HospitalDqxfftpBSYUFAZCMC5804-00-28 07:34:00 Test Item Value Reference Range Interpretation Comments Basophils (test code = 0.4 See_Comment [Aut omated message] The Basophils) system which ge nerated this result tra nsmitted reference range : <=1.0. The reference r natasha was not used to int erpret this result as normal/abnormal . [facility] HospitalXrgfuimXBALXGMMCO1691-70-82 07:34:00 Test Item Value Reference Range Interpretation Comments Neutrophils # (test code = Neutrophils 5.2 1.5-8.1 #) [facility] HospitalSgvckixHDBVTDVKOF9925-39-00 07:34:00 Test Item Value Reference Range Interpretation Comments Lymphocytes # (test code = Lymphocytes 1.4 1.0-5.5 #) [facility] HospitalYkinufsVNTIHAIQPF2625-24-28 07:34:00 Test Item Value Reference Range Interpretation Comments Monocytes # (test code 0.6 See_Comment [Aut omated message] The = Monocytes #) system which generated this result tra nsmitted reference range : <=0.8. The reference r natasha was not used to int erpret this result as normal/abnormal . [place] 042650-02-15 07:34:00 Test Item Value Reference Range Interpretation Comments Eosinophils # (test code 0.1 See_Comment [A utomated message] The = Eosinophils #) system whic h generated this result tra nsmitted reference range : <=0.5. The reference r natasha was not used to int erpret this result as normal/abnormal . [facility] HospitalDeazmmmWSKWAJBMQG9235-36-65 07:34:00 Test Item Value Reference Range Interpretation Comments WBC (test code = WBC) 7.4 3.7-10.4 [place] 042650-02-15 07:34:00 Test Item Value Reference Range Interpretation Comments RBC (test code = RBC) 3.73 4.20-5.40 [place] [address]-02-15 07:34:00 Test Item Value Reference Range Interpretation Comments Hgb (test code = Hgb) 12.4 12.0-16.0 [place] [address]-02-15 07:34:00 Test Item Value Reference Range Interpretation Comments Hct (test code = Hct) 36.3 36.0-48.0 [place] [address]-02-15 07:34:00 Test Item Value Reference Range Interpretation Comments MCV (test code = MCV) 97.2 80.0-98.0 [place] [address]-02-15 07:34:00 Test Item Value Reference Range Interpretation Comments MCH (test code = MCH) 33.4 pg 27.0-31.0 [place] [address]-02-15 07:34:00 Test Item Value Reference Range Interpretation Comments MCHC (test code = MCHC) 34.3 32.0-36.0 [place] [address]-02-15 07:34:00 Test Item Value Reference Range Interpretation Comments RDW (test code = RDW) 13.6 11.5-14.5 [place] 042650-02-15 07:34:00 Test Item Value Reference Range Interpretation Comments Platelet (test code = Platelet) 191 133-450 [facility] RegionalLwbizicDNPEITWXYI3620-98-80 07:34:00 Test Item Value Reference Range Interpretation Comments MPV (test code = MPV) 10.1 7.4-10.4 [facility]ATHY[facility]ID [id number] 07:34:00 Test Item Value Reference Range Interpretation Comments Ca Ion WB (test code = Ca Ion WB) 1.02 1.05-1.25 [facility]annPARATHYROID [id number] 07:34:00 Test Item Value Reference Range Interpretation Comments Ca Norm WB (test code = Ca Norm WB) 1.04 1.05-1.25 [facility]annCHEM [id number] 07:34:00 Test Item Value Reference Range Interpretation Comments Magnesium Lvl (test code = Magnesium 2.0 1.8-2.4 Lvl) [facility] HospitalYwjboduBTUAAOVFJK6632-95-99 07:34:00 Test Item Value Reference Range Interpretation Comments Segs (test code = Segs) 71.2 45.0-75.0 [facility] RegionalPkpuhkwOOZAIFUWWE2076-64-77 07:34:00 Test Item Value Reference Range Interpretation Comments Lymphocytes (test code = Lymphocytes) 19.2 20.0-40.0 [facility]MisgywzDGOBLTOWDZ7200-25-78 07:34:00 Test Item Value Reference Range Interpretation Comments Monocytes (test code = Monocytes) 7.6 2.0-12.0 [facility] MichiganVzofgewAXVDEOLZNY4292-14-78 07:34:00 Test Item Value Reference Range Interpretation Comments Eosinophils (test code = 1.6 See_Comment [A utomated message] The Eosinophils) system which ge nerated this result tra nsmitted reference range : <=4.0. The reference r natasha was not used to int erpret this result as normal/abnormal . [facility] HospitalZbnwpoePFDRVVSVLC1890-49-87 07:34:00 Test Item Value Reference Range Interpretation Comments Basophils (test code = 0.4 See_Comment [Aut omated message] The Basophils) system which ge nerated this result tra nsmitted reference range : <=1.0. The reference r natasha was not used to int erpret this result as normal/abnormal . [facility] HospitalZozxkbuRWPQOPFCIS8204-77-02 07:34:00 Test Item Value Reference Range Interpretation Comments Neutrophils # (test code = Neutrophils 5.2 1.5-8.1 #) [place] [address]-02-15 07:34:00 Test Item Value Reference Range Interpretation Comments Lymphocytes # (test code = Lymphocytes 1.4 1.0-5.5 #) [place] [address]-02-15 07:34:00 Test Item Value Reference Range Interpretation Comments Monocytes # (test code 0.6 See_Comment [Aut omated message] The = Monocytes #) system which generated this result tra nsmitted reference range : <=0.8. The reference r natasha was not used to int erpret this result as normal/abnormal . [place] [address]-02-15 07:34:00 Test Item Value Reference Range Interpretation Comments Eosinophils # (test code 0.1 See_Comment [A utomated message] The = Eosinophils #) system whic h generated this result tra nsmitted reference range : <=0.5. The reference r natasha was not used to int erpret this result as normal/abnormal . [place] [address]-02-15 07:34:00 Test Item Value Reference Range Interpretation Comments WBC (test code = WBC) 7.4 3.7-10.4 [place] [address]-02-15 07:34:00 Test Item Value Reference Range Interpretation Comments RBC (test code = RBC) 3.73 4.20-5.40 [place] [address]-02-15 07:34:00 Test Item Value Reference Range Interpretation Comments Hgb (test code = Hgb) 12.4 12.0-16.0 [place] [address]-02-15 07:34:00 Test Item Value Reference Range Interpretation Comments Hct (test code = Hct) 36.3 36.0-48.0 [place] [address]-02-15 07:34:00 Test Item Value Reference Range Interpretation Comments MCV (test code = MCV) 97.2 80.0-98.0 [place] [address]-02-15 07:34:00 Test Item Value Reference Range Interpretation Comments MCH (test code = MCH) 33.4 pg 27.0-31.0 [place] [address]-02-15 07:34:00 Test Item Value Reference Range Interpretation Comments MCHC (test code = MCHC) 34.3 32.0-36.0 [facility] RegionalPwtbckwOBTAAKRJPK6208-55-84 07:34:00 Test Item Value Reference Range Interpretation Comments RDW (test code = RDW) 13.6 11.5-14.5 [facility] RegionalNavnjkrKSKXVRQUAM6374-88-06 07:34:00 Test Item Value Reference Range Interpretation Comments Platelet (test code = Platelet) 191 133-450 [facility] HospitalTmzatikMAQEJDBMZD2239-65-57 07:34:00 Test Item Value Reference Range Interpretation Comments MPV (test code = MPV) 10.1 7.4-10.4 [facility] RegionalPARATHYROID [id number] 07:34:00 Test Item Value Reference Range Interpretation Comments Ca Ion WB (test code = Ca Ion WB) 1.02 1.05-1.25 [facility] CenterRO[facility] [id number] 07:34:00 Test Item Value Reference Range Interpretation Comments Ca Norm WB (test code = Ca Norm WB) 1.04 1.05-1.25 [facility] RegionalCHEM [id number] 07:34:00 Test Item Value Reference Range Interpretation Comments Magnesium Lvl (test code = Magnesium 2.0 1.8-2.4 Lvl) [facility] HospitalGoajympYQNRIPRUJK4848-74-05 07:34:00 Test Item Value Reference Range Interpretation Comments Segs (test code = Segs) 71.2 45.0-75.0 [facility] HospitalSsdzyfoWFUVYKAPZG4619-04-77 07:34:00 Test Item Value Reference Range Interpretation Comments Lymphocytes (test code = Lymphocytes) 19.2 20.0-40.0 [place] 042650-02-15 07:34:00 Test Item Value Reference Range Interpretation Comments Monocytes (test code = Monocytes) 7.6 2.0-12.0 [place] [address]-02-15 07:34:00 Test Item Value Reference Range Interpretation Comments Eosinophils (test code = 1.6 See_Comment [A utomated message] The Eosinophils) system which ge nerated this result tra nsmitted reference range : <=4.0. The reference r natasha was not used to int erpret this result as normal/abnormal . [facility] HospitalEhopqkpXRYXXCLLOW7581-79-53 07:34:00 Test Item Value Reference Range Interpretation Comments Basophils (test code = 0.4 See_Comment [Aut omated message] The Basophils) system which ge nerated this result tra nsmitted reference range : <=1.0. The reference r natasha was not used to int erpret this result as normal/abnormal . [place] 042650-02-15 07:34:00 Test Item Value Reference Range Interpretation Comments Neutrophils # (test code = Neutrophils 5.2 1.5-8.1 #) [facility] HospitalJdfawoaFTBSCMUQLP0698-91-68 07:34:00 Test Item Value Reference Range Interpretation Comments Lymphocytes # (test code = Lymphocytes 1.4 1.0-5.5 #) [place] [address]-02-15 07:34:00 Test Item Value Reference Range Interpretation Comments Monocytes # (test code 0.6 See_Comment [Aut omated message] The = Monocytes #) system which generated this result tra nsmitted reference range : <=0.8. The reference r natasha was not used to int erpret this result as normal/abnormal . [place] 042650-02-15 07:34:00 Test Item Value Reference Range Interpretation Comments Eosinophils # (test code 0.1 See_Comment [A utomated message] The = Eosinophils #) system whic h generated this result tra nsmitted reference range : <=0.5. The reference r natsaha was not used to int erpret this result as normal/abnormal . [facility] HospitalFlxnmosCGOQRUTCJE4970-20-24 07:34:00 Test Item Value Reference Range Interpretation Comments WBC (test code = WBC) 7.4 3.7-10.4 [place] 042650-02-15 07:34:00 Test Item Value Reference Range Interpretation Comments RBC (test code = RBC) 3.73 4.20-5.40 [place] [address]-02-15 07:34:00 Test Item Value Reference Range Interpretation Comments Hgb (test code = Hgb) 12.4 12.0-16.0 [place] [address]-02-15 07:34:00 Test Item Value Reference Range Interpretation Comments Hct (test code = Hct) 36.3 36.0-48.0 [place] [address]-02-15 07:34:00 Test Item Value Reference Range Interpretation Comments MCV (test code = MCV) 97.2 80.0-98.0 [place] [address]-02-15 07:34:00 Test Item Value Reference Range Interpretation Comments MCH (test code = MCH) 33.4 pg 27.0-31.0 [facility] RegionalZolxsfuTHTIKIVBGZ1718-44-79 07:34:00 Test Item Value Reference Range Interpretation Comments MCHC (test code = MCHC) 34.3 32.0-36.0 [facility] TexasAhsmzpyFKEZKBTNLA4972-55-84 07:34:00 Test Item Value Reference Range Interpretation Comments RDW (test code = RDW) 13.6 11.5-14.5 [facility] TexasEgvtggdGWCAPHWBZQ5570-02-57 07:34:00 Test Item Value Reference Range Interpretation Comments Platelet (test code = Platelet) 191 133-450 [facility] TexasIeaasbhBPZLBMRNAU6363-76-67 07:34:00 Test Item Value Reference Range Interpretation Comments MPV (test code = MPV) 10.1 7.4-10.4 [facility] TexasannPARATHYROID [id number] 07:34:00 Test Item Value Reference Range Interpretation Comments Ca Ion WB (test code = Ca Ion WB) 1.02 1.05-1.25 [facility] TexasannPARATHYROID SZBGLJB7621-00-21 07:34:00 Test Item Value Reference Range Interpretation Comments Ca Norm WB (test code = Ca Norm WB) 1.04 1.05-1.25 [facility] TestSoupannCARDIAC [id number] 14:22:00 Test Item Value Reference Range Interpretation Comments Troponin-I (test code 0.19 See_Comment [Auto mated message] The = Troponin-I) system which g enerated this result transmit evelio reference range : <=0.40. The reference r natasha was not used to interpr et this result as nataliia l/abnormal. [facility] TestSoupannCARDIAC [id number] 14:22:00 Test Item Value Reference Range Interpretation Comments Troponin-I (test code 0.19 See_Comment [Auto mated message] The = Troponin-I) system which g enerated this result transmit evelio reference range : <=0.40. The reference r natasha was not used to interpr et this result as nataliia l/abnormal. [facility] TestSoupannCARDIAC [id number] 14:22:00 Test Item Value Reference Range Interpretation Comments Troponin-I (test code 0.19 See_Comment [Auto mated message] The = Troponin-I) system which g enerated this result transmit evelio reference range : <=0.40. The reference r natasha was not used to interpr et this result as nataliia l/abnormal. [facility] HospitalDIHELEN NEWBERRY JOY HOSPITALIFJMUNX3755-79-16 14:22:00 Test Item Value Reference Range Interpretation Comments Troponin-I (test code 0.19 See_Comment [Auto mated message] The = Troponin-I) system which g enerated this result transmit evelio reference range : <=0.40. The reference r natasha was not used to interpr et this result as nataliia l/abnormal. [facility] HospitalPpwatxdJMJCADKWFF4299-67-55 11:04:00 Test Item Value Reference Range Interpretation Comments Segs (test code = Segs) 70.0 45.0-75.0 [facility] [facility]KBLFEXKDKQ9451-86-95 11:04:00 Test Item Value Reference Range Interpretation Comments Lymphocytes (test code = Lymphocytes) 19.6 20.0-40.0 [facility]CifqqhuPGISRDMDPA4185-07-80 11:04:00 Test Item Value Reference Range Interpretation Comments Monocytes (test code = Monocytes) 8.7 2.0-12.0 [facility] HospitalFeoplbkTDCJPEGFMZ4633-35-79 11:04:00 Test Item Value Reference Range Interpretation Comments Eosinophils (test code = 1.3 See_Comment [A utomated message] The Eosinophils) system which ge nerated this result tra nsmitted reference range : <=4.0. The reference r natasha was not used to int erpret this result as normal/abnormal . [facility] HospitalJerlysoFBJOVGQTPG9496-19-67 11:04:00 Test Item Value Reference Range Interpretation Comments Basophils (test code = 0.4 See_Comment [Aut omated message] The Basophils) system which ge nerated this result tra nsmitted reference range : <=1.0. The reference r natasha was not used to int erpret this result as normal/abnormal . [facility] HospitalDarhvkcBWWGRZYFSW0183-62-33 11:04:00 Test Item Value Reference Range Interpretation Comments Neutrophils # (test code = Neutrophils 5.0 1.5-8.1 #) [facility] HospitalQpgrbglAHTXOQJIAS7114-97-51 11:04:00 Test Item Value Reference Range Interpretation Comments Lymphocytes # (test code = Lymphocytes 1.4 1.0-5.5 #) [facility] HospitalPraqsgdPOXEUZBCKL6502-75-10 11:04:00 Test Item Value Reference Range Interpretation Comments Monocytes # (test code 0.6 See_Comment [Aut omated message] The = Monocytes #) system which generated this result tra nsmitted reference range : <=0.8. The reference r natasha was not used to int erpret this result as normal/abnormal . [facility] HospitalBchbqyjJWKWLSRWDA6467-24-78 11:04:00 Test Item Value Reference Range Interpretation Comments Eosinophils # (test code 0.1 See_Comment [A utomated message] The = Eosinophils #) system whic h generated this result tra nsmitted reference range : <=0.5. The reference r natasha was not used to int erpret this result as normal/abnormal . [facility] HospitalDwvtdxxMBYWJISRWS5093-41-46 11:04:00 Test Item Value Reference Range Interpretation Comments WBC (test code = WBC) 7.1 3.7-10.4 [facility] HospitalPgkykpuAWSZFTASPE0128-29-73 11:04:00 Test Item Value Reference Range Interpretation Comments RBC (test code = RBC) 3.72 4.20-5.40 [facility] HospitalRdnjdayPBJUFOSNGZ6416-90-92 11:04:00 Test Item Value Reference Range Interpretation Comments Hgb (test code = Hgb) 12.4 12.0-16.0 [facility] HospitalCfjrtxsVTKIOWYLIA4918-44-56 11:04:00 Test Item Value Reference Range Interpretation Comments Hct (test code = Hct) 36.6 36.0-48.0 [facility] HospitalTfmwvjtUONSUTEREV0346-37-43 11:04:00 Test Item Value Reference Range Interpretation Comments MCV (test code = MCV) 98.4 80.0-98.0 [facility] HospitalAvgyrlaUOJMHGUUAX0734-16-97 11:04:00 Test Item Value Reference Range Interpretation Comments MCH (test code = MCH) 33.4 pg 27.0-31.0 [facility] HospitalRxqitpdRYXPAOXDGD5085-20-30 11:04:00 Test Item Value Reference Range Interpretation Comments MCHC (test code = MCHC) 34.0 32.0-36.0 [facility] HospitalZggmakjXNGEOJCAUF0841-40-13 11:04:00 Test Item Value Reference Range Interpretation Comments RDW (test code = RDW) 13.1 11.5-14.5 [facility] HospitalPcdvbhpBYNPHEZXHD4020-59-51 11:04:00 Test Item Value Reference Range Interpretation Comments Platelet (test code = Platelet) 202 133-450 [facility] HospitalTawamsfXGCDOPJWBC0064-86-55 11:04:00 Test Item Value Reference Range Interpretation Comments MPV (test code = MPV) 8.6 7.4-10.4 [facility] HospitalHkphzjlIBDKFZBWMV7191-51-09 11:04:00 Test Item Value Reference Range Interpretation Comments Segs (test code = Segs) 70.0 45.0-75.0 [facility] HospitalQuwosxeJGFLJTGXBO8865-51-38 11:04:00 Test Item Value Reference Range Interpretation Comments Lymphocytes (test code = Lymphocytes) 19.6 20.0-40.0 [facility] HospitalJqaatsxEBSVVLGSSA0734-53-87 11:04:00 Test Item Value Reference Range Interpretation Comments Monocytes (test code = Monocytes) 8.7 2.0-12.0 [facility] HospitalWwciwhtTEPIMGWUGJ7515-84-42 11:04:00 Test Item Value Reference Range Interpretation Comments Eosinophils (test code = 1.3 See_Comment [A utomated message] The Eosinophils) system which ge nerated this result tra nsmitted reference range : <=4.0. The reference r natasha was not used to int erpret this result as normal/abnormal . [facility] HospitalSxljaudPHEVSLFWXB4262-90-59 11:04:00 Test Item Value Reference Range Interpretation Comments Basophils (test code = 0.4 See_Comment [Aut omated message] The Basophils) system which ge nerated this result tra nsmitted reference range : <=1.0. The reference r natasha was not used to int erpret this result as normal/abnormal . [facility] HospitalUjxjpghKHPGFCLKGI4134-83-88 11:04:00 Test Item Value Reference Range Interpretation Comments Neutrophils # (test code = Neutrophils 5.0 1.5-8.1 #) [facility] HospitalApdrdviTEXQSQFTIB2905-31-38 11:04:00 Test Item Value Reference Range Interpretation Comments Lymphocytes # (test code = Lymphocytes 1.4 1.0-5.5 #) [facility] HospitalRsenypzASEETHDQWS1779-81-89 11:04:00 Test Item Value Reference Range Interpretation Comments Monocytes # (test code 0.6 See_Comment [Aut omated message] The = Monocytes #) system which generated this result tra nsmitted reference range : <=0.8. The reference r natasha was not used to int erpret this result as normal/abnormal . [facility] HospitalKygevwoXEAUWACKPC9628-85-46 11:04:00 Test Item Value Reference Range Interpretation Comments Eosinophils # (test code 0.1 See_Comment [A utomated message] The = Eosinophils #) system whic h generated this result tra nsmitted reference range : <=0.5. The reference r natasha was not used to int erpret this result as normal/abnormal . [facility] HospitalKdzreeaURNBQEPNIO5171-33-15 11:04:00 Test Item Value Reference Range Interpretation Comments WBC (test code = WBC) 7.1 3.7-10.4 [facility] HospitalPfhdjamLMHSVBUMDV5808-25-12 11:04:00 Test Item Value Reference Range Interpretation Comments RBC (test code = RBC) 3.72 4.20-5.40 [facility] HospitalUpreayqVBCRDOMSAK8983-43-71 11:04:00 Test Item Value Reference Range Interpretation Comments Hgb (test code = Hgb) 12.4 12.0-16.0 [facility] HospitalOzksupaKGNFOQQIVT7323-50-64 11:04:00 Test Item Value Reference Range Interpretation Comments Hct (test code = Hct) 36.6 36.0-48.0 [facility] HospitalRuwdwggZBVTAVNIAG9422-45-16 11:04:00 Test Item Value Reference Range Interpretation Comments MCV (test code = MCV) 98.4 80.0-98.0 [facility] HospitalVdplbafPDWJMZSOUZ4589-39-33 11:04:00 Test Item Value Reference Range Interpretation Comments MCH (test code = MCH) 33.4 pg 27.0-31.0 [facility] HospitalTuqzwemZIGNCGBYEE9165-91-44 11:04:00 Test Item Value Reference Range Interpretation Comments MCHC (test code = MCHC) 34.0 32.0-36.0 [facility] HospitalPoivtrvXYXXOOZFKS5812-68-42 11:04:00 Test Item Value Reference Range Interpretation Comments RDW (test code = RDW) 13.1 11.5-14.5 [facility] HospitalIrsbxphAXCSECKPFF9260-51-76 11:04:00 Test Item Value Reference Range Interpretation Comments Platelet (test code = Platelet) 202 133-450 [facility] HospitalYzrkhhwWVNFNKGGTR4105-58-40 11:04:00 Test Item Value Reference Range Interpretation Comments MPV (test code = MPV) 8.6 7.4-10.4 [facility] HospitalWjelpgjWMJDUCQHKY8358-59-83 11:04:00 Test Item Value Reference Range Interpretation Comments Segs (test code = Segs) 70.0 45.0-75.0 [facility] HospitalUpdrjdtQNJQCWUKEN5379-20-09 11:04:00 Test Item Value Reference Range Interpretation Comments Lymphocytes (test code = Lymphocytes) 19.6 20.0-40.0 [facility] HospitalTtznegxXLSKMMZRVC5628-17-52 11:04:00 Test Item Value Reference Range Interpretation Comments Monocytes (test code = Monocytes) 8.7 2.0-12.0 [facility] HospitalEfuzpsbCPBEQHUNLV0503-20-16 11:04:00 Test Item Value Reference Range Interpretation Comments Eosinophils (test code = 1.3 See_Comment [A utomated message] The Eosinophils) system which ge nerated this result tra nsmitted reference range : <=4.0. The reference r natasha was not used to int erpret this result as normal/abnormal . [facility] HospitalXusrtmlTMSHXYPYCM2693-24-61 11:04:00 Test Item Value Reference Range Interpretation Comments Basophils (test code = 0.4 See_Comment [Aut omated message] The Basophils) system which ge nerated this result tra nsmitted reference range : <=1.0. The reference r natasha was not used to int erpret this result as normal/abnormal . [facility] HospitalYgjnlniLLFJWCCEAU2693-83-02 11:04:00 Test Item Value Reference Range Interpretation Comments Neutrophils # (test code = Neutrophils 5.0 1.5-8.1 #) [facility] HospitalNlwioifFJUKZGIDFV8368-27-89 11:04:00 Test Item Value Reference Range Interpretation Comments Lymphocytes # (test code = Lymphocytes 1.4 1.0-5.5 #) [facility] HospitalOptuoeiDDXMPPZQQD6865-28-86 11:04:00 Test Item Value Reference Range Interpretation Comments Monocytes # (test code 0.6 See_Comment [Aut omated message] The = Monocytes #) system which generated this result tra nsmitted reference range : <=0.8. The reference r natasha was not used to int erpret this result as normal/abnormal . [facility] HospitalLjfxvmmDKGRYRHOFP0439-25-94 11:04:00 Test Item Value Reference Range Interpretation Comments Eosinophils # (test code 0.1 See_Comment [A utomated message] The = Eosinophils #) system whic h generated this result tra nsmitted reference range : <=0.5. The reference r natasha was not used to int erpret this result as normal/abnormal . [facility] HospitalGapauptITIYPOHRJW7950-75-23 11:04:00 Test Item Value Reference Range Interpretation Comments WBC (test code = WBC) 7.1 3.7-10.4 [facility] HospitalOabmbekCJLJGARJYM0505-23-29 11:04:00 Test Item Value Reference Range Interpretation Comments RBC (test code = RBC) 3.72 4.20-5.40 [facility] HospitalPdbyytmSRJKGZHKPJ2253-77-80 11:04:00 Test Item Value Reference Range Interpretation Comments Hgb (test code = Hgb) 12.4 12.0-16.0 [facility] HospitalWrccukaGMYAFOZZRL8200-41-89 11:04:00 Test Item Value Reference Range Interpretation Comments Hct (test code = Hct) 36.6 36.0-48.0 [facility] HospitalThcidswSLYBEAIOGL2537-64-90 11:04:00 Test Item Value Reference Range Interpretation Comments MCV (test code = MCV) 98.4 80.0-98.0 [facility] HospitalAloiefaNSTWRYGKRW4787-92-82 11:04:00 Test Item Value Reference Range Interpretation Comments MCH (test code = MCH) 33.4 pg 27.0-31.0 [facility] HospitalGylfhscFIDCJNBWAG2780-13-00 11:04:00 Test Item Value Reference Range Interpretation Comments MCHC (test code = MCHC) 34.0 32.0-36.0 [facility] HospitalPbfnbymCEPIWYXVPC2786-40-62 11:04:00 Test Item Value Reference Range Interpretation Comments RDW (test code = RDW) 13.1 11.5-14.5 [facility] HospitalKxniaejZDYCSQCXDL0698-85-24 11:04:00 Test Item Value Reference Range Interpretation Comments Platelet (test code = Platelet) 202 133-450 [facility] HospitalFzlgokcETLAOWQSSI0374-59-57 11:04:00 Test Item Value Reference Range Interpretation Comments MPV (test code = MPV) 8.6 7.4-10.4 [facility] HospitalBmmskjeWEHDTXIADY7913-24-97 11:04:00 Test Item Value Reference Range Interpretation Comments Segs (test code = Segs) 70.0 45.0-75.0 [facility] HospitalLvlqixhGGNKOOPYIQ8273-28-23 11:04:00 Test Item Value Reference Range Interpretation Comments Lymphocytes (test code = Lymphocytes) 19.6 20.0-40.0 [facility] HospitalQnhidnzVWGPBODKEB1351-48-95 11:04:00 Test Item Value Reference Range Interpretation Comments Monocytes (test code = Monocytes) 8.7 2.0-12.0 [facility] HospitalEoosqcpGRFNZUPZJE8773-46-61 11:04:00 Test Item Value Reference Range Interpretation Comments Eosinophils (test code = 1.3 See_Comment [A utomated message] The Eosinophils) system which ge nerated this result tra nsmitted reference range : <=4.0. The reference r natasha was not used to int erpret this result as normal/abnormal . [facility] HospitalVefkabfBUEDAABSMV3500-00-55 11:04:00 Test Item Value Reference Range Interpretation Comments Basophils (test code = 0.4 See_Comment [Aut omated message] The Basophils) system which ge nerated this result tra nsmitted reference range : <=1.0. The reference r natasha was not used to int erpret this result as normal/abnormal . [facility] HospitalQiedalzHGRCCJCTOT5865-54-28 11:04:00 Test Item Value Reference Range Interpretation Comments Neutrophils # (test code = Neutrophils 5.0 1.5-8.1 #) [facility] HospitalIwmdoscASEKCCXXUF6966-15-48 11:04:00 Test Item Value Reference Range Interpretation Comments Lymphocytes # (test code = Lymphocytes 1.4 1.0-5.5 #) [facility] HospitalHootsiiNTUBPWMTUI6414-69-90 11:04:00 Test Item Value Reference Range Interpretation Comments Monocytes # (test code 0.6 See_Comment [Aut omated message] The = Monocytes #) system which generated this result tra nsmitted reference range : <=0.8. The reference r natasha was not used to int erpret this result as normal/abnormal . [facility] HospitalSsmyzclUKOTLSGWHO5093-53-21 11:04:00 Test Item Value Reference Range Interpretation Comments Eosinophils # (test code 0.1 See_Comment [A utomated message] The = Eosinophils #) system whic h generated this result tra nsmitted reference range : <=0.5. The reference r natasha was not used to int erpret this result as normal/abnormal . [facility] HospitalTcxkabdBSCSZPSGPH6251-46-70 11:04:00 Test Item Value Reference Range Interpretation Comments WBC (test code = WBC) 7.1 3.7-10.4 [facility]YseupanBHQAVODEVJ2508-54-59 11:04:00 Test Item Value Reference Range Interpretation Comments RBC (test code = RBC) 3.72 4.20-5.40 [facility]SmtychcLYTHHLQAIB4145-99-37 11:04:00 Test Item Value Reference Range Interpretation Comments Hgb (test code = Hgb) 12.4 12.0-16.0 [facility] MichiganVxraokfRCUWETEDZP0769-49-39 11:04:00 Test Item Value Reference Range Interpretation Comments Hct (test code = Hct) 36.6 36.0-48.0 [facility]PjbvoacZJWXHGCYTX6089-53-11 11:04:00 Test Item Value Reference Range Interpretation Comments MCV (test code = MCV) 98.4 80.0-98.0 [facility] MichiganOuqfjttQPNEPMIFSA6126-70-81 11:04:00 Test Item Value Reference Range Interpretation Comments MCH (test code = MCH) 33.4 pg 27.0-31.0 [facility] MichiganQzbpzxcXEZVPCCYWN4783-17-15 11:04:00 Test Item Value Reference Range Interpretation Comments MCHC (test code = MCHC) 34.0 32.0-36.0 [facility] MichiganDkfhhzjOUYWGBCMPX8924-15-68 11:04:00 Test Item Value Reference Range Interpretation Comments RDW (test code = RDW) 13.1 11.5-14.5 [facility] MichiganDmkirqvKITJJBQHIN0437-05-34 11:04:00 Test Item Value Reference Range Interpretation Comments Platelet (test code = Platelet) 202 133-450 [facility] MichiganVxcazwzNIIWUMOSUI8742-95-93 11:04:00 Test Item Value Reference Range Interpretation Comments MPV (test code = MPV) 8.6 7.4-10.4 [facility] [id number] 22:29:00 Test Item Value Reference Range Interpretation Comments Troponin-I (test code 0.34 See_Comment [Auto mated message] The = Troponin-I) system which g enerated this result transmit evelio reference range : <=0.40. The reference r natasha was not used to interpr et this result as nataliia l/abnormal. [facility] TexasTraianaCARDIAC DRUYIIT7996-60-40 22:29:00 Test Item Value Reference Range Interpretation Comments Troponin-I (test code 0.34 See_Comment [Auto mated message] The = Troponin-I) system which g enerated this result transmit evelio reference range : <=0.40. The reference r natasha was not used to interpr et this result as nataliia l/abnormal. [employer]2020-02-13 22:29:00 Test Item Value Reference Range Interpretation Comments Troponin-I (test code 0.34 See_Comment [Auto mated message] The = Troponin-I) system which g enerated this result transmit evelio reference range : <=0.40. The reference r natasha was not used to interpr et this result as nataliia l/abnormal. [facility] [employer]2020-02-13 22:29:00 Test Item Value Reference Range Interpretation Comments Troponin-I (test code 0.34 See_Comment [Auto mated message] The = Troponin-I) system which g enerated this result transmit evelio reference range : <=0.40. The reference r natasha was not used to interpr et this result as nataliia l/abnormal. [employer]2020-02-13 01:10:00 Test Item Value Reference Range Interpretation Comments Total Protein (test code = Total 6.0 6.4-8.4 Protein) [facility] [employer]2020-02-13 01:10:00 Test Item Value Reference Range Interpretation Comments Albumin Lvl (test code = Albumin Lvl) 2.5 3.5-5.0 [facility] [employer]2020-02-13 01:10:00 Test Item Value Reference Range Interpretation Comments ALT (test code = ALT) 26 See_Comment [Auto mated message] The system which ge nerated this result transmit evelio reference range : <=65. The reference range was not used to interpr et this result as nataliia l/abnormal. [employer]2020-02-13 01:10:00 Test Item Value Reference Range Interpretation Comments AST (test code = AST) 30 See_Comment [Auto mated message] The system which ge nerated this result transmit evelio reference range : <=37. The reference range was not used to interpr et this result as nataliia l/abnormal. [employer]2020-02-13 01:10:00 Test Item Value Reference Range Interpretation Comments Alk Phos (test code = Alk Phos) 55 39-136 [place] 209480-02-13 01:10:00 Test Item Value Reference Range Interpretation Comments Bili Total (test code = Bili Total) 0.3 0.2-1.3 [place] [address]-02-13 01:10:00 Test Item Value Reference Range Interpretation Comments B/C Ratio (test code = B/C Ratio) 26 1 6-25 [place] [address]-02-13 01:10:00 Test Item Value Reference Range Interpretation Comments Globulin (test code = Globulin) 3.5 2.7-4.2 [place] [address]-02-13 01:10:00 Test Item Value Reference Range Interpretation Comments A/G Ratio (test code = A/G Ratio) 0.7 1 0.7-1.6 [place] [address]-02-13 01:10:00 Test Item Value Reference Range Interpretation Comments Procalcitonin Lvl (test 0.06 See_Comment [Au tomated message] code = Procalcitonin Lvl) Th e system which generated this result transmitted ref erence range: <=0.10. The reference range was not used to interpr et this result as normal/abnormal . [place] 209480-02-13 01:10:00 Test Item Value Reference Range Interpretation Comments Total Protein (test code = Total 6.0 6.4-8.4 Protein) [place] [address]-02-13 01:10:00 Test Item Value Reference Range Interpretation Comments Albumin Lvl (test code = Albumin Lvl) 2.5 3.5-5.0 [place] [address]-02-13 01:10:00 Test Item Value Reference Range Interpretation Comments ALT (test code = ALT) 26 See_Comment [Auto mated message] The system which ge nerated this result transmit evelio reference range : <=65. The reference range was not used to interpr et this result as nataliia l/abnormal. [facility] [id number] 01:10:00 Test Item Value Reference Range Interpretation Comments AST (test code = AST) 30 See_Comment [Auto mated message] The system which ge nerated this result transmit evelio reference range : <=37. The reference range was not used to interpr et this result as nataliia l/abnormal. [facility]TIM [facility] [id number] 01:10:00 Test Item Value Reference Range Interpretation Comments Alk Phos (test code = Alk Phos) 55 39-136 [place] [address]-02-13 01:10:00 Test Item Value Reference Range Interpretation Comments Bili Total (test code = Bili Total) 0.3 0.2-1.3 [place] [address]-02-13 01:10:00 Test Item Value Reference Range Interpretation Comments B/C Ratio (test code = B/C Ratio) 26 1 6-25 [facility] [id number] 01:10:00 Test Item Value Reference Range Interpretation Comments Globulin (test code = Globulin) 3.5 2.7-4.2 [facility] [id number] 01:10:00 Test Item Value Reference Range Interpretation Comments A/G Ratio (test code = A/G Ratio) 0.7 1 0.7-1.6 [place] [address]-02-13 01:10:00 Test Item Value Reference Range Interpretation Comments Procalcitonin Lvl (test 0.06 See_Comment [Au tomated message] code = Procalcitonin Lvl) Th e system which generated this result transmitted ref erence range: <=0.10. The reference range was not used to interpr et this result as normal/abnormal . [facility] [id number] 01:10:00 Test Item Value Reference Range Interpretation Comments Total Protein (test code = Total 6.0 6.4-8.4 Protein) [place] [address]-02-13 01:10:00 Test Item Value Reference Range Interpretation Comments Albumin Lvl (test code = Albumin Lvl) 2.5 3.5-5.0 [facility] [id number] 01:10:00 Test Item Value Reference Range Interpretation Comments ALT (test code = ALT) 26 See_Comment [Auto mated message] The system which ge nerated this result transmit evelio reference range : <=65. The reference range was not used to interpr et this result as nataliia l/abnormal. [facility] [id number] 01:10:00 Test Item Value Reference Range Interpretation Comments AST (test code = AST) 30 See_Comment [Auto mated message] The system which ge nerated this result transmit evelio reference range : <=37. The reference range was not used to interpr et this result as nataliia l/abnormal. [facility] [employer]2020-02-13 01:10:00 Test Item Value Reference Range Interpretation Comments Alk Phos (test code = Alk Phos) 55 39-136 [facility] [employer] [id number] 01:10:00 Test Item Value Reference Range Interpretation Comments Bili Total (test code = Bili Total) 0.3 0.2-1.3 [facility] [employer] [id number] 01:10:00 Test Item Value Reference Range Interpretation Comments B/C Ratio (test code = B/C Ratio) 26 1 6-25 [facility] [employer] [id number] 01:10:00 Test Item Value Reference Range Interpretation Comments Globulin (test code = Globulin) 3.5 2.7-4.2 [facility] [employer] [id number] 01:10:00 Test Item Value Reference Range Interpretation Comments A/G Ratio (test code = A/G Ratio) 0.7 1 0.7-1.6 [facility] [employer] [id number] 01:10:00 Test Item Value Reference Range Interpretation Comments Procalcitonin Lvl (test 0.06 See_Comment [Au tomated message] code = Procalcitonin Lvl) Th e system which generated this result transmitted ref erence range: <=0.10. The reference range was not used to interpr et this result as normal/abnormal . [facility] [employer]2020-02-13 01:10:00 Test Item Value Reference Range Interpretation Comments Total Protein (test code = Total 6.0 6.4-8.4 Protein) [facility] [employer] [id number] 01:10:00 Test Item Value Reference Range Interpretation Comments Albumin Lvl (test code = Albumin Lvl) 2.5 3.5-5.0 [facility] [employer]2020-02-13 01:10:00 Test Item Value Reference Range Interpretation Comments ALT (test code = ALT) 26 See_Comment [Auto mated message] The system which ge nerated this result transmit evelio reference range : <=65. The reference range was not used to interpr et this result as nataliia l/abnormal. [employer]2020-02-13 01:10:00 Test Item Value Reference Range Interpretation Comments AST (test code = AST) 30 See_Comment [Auto mated message] The system which ge nerated this result transmit evelio reference range : <=37. The reference range was not used to interpr et this result as nataliia l/abnormal. [facility] [id number] 01:10:00 Test Item Value Reference Range Interpretation Comments Alk Phos (test code = Alk Phos) 55 39-136 [facility] [id number] 01:10:00 Test Item Value Reference Range Interpretation Comments Bili Total (test code = Bili Total) 0.3 0.2-1.3 [facility] [id number] 01:10:00 Test Item Value Reference Range Interpretation Comments B/C Ratio (test code = B/C Ratio) 26 1 6-25 [facility] [id number] 01:10:00 Test Item Value Reference Range Interpretation Comments Globulin (test code = Globulin) 3.5 2.7-4.2 [facility] [id number] 01:10:00 Test Item Value Reference Range Interpretation Comments A/G Ratio (test code = A/G Ratio) 0.7 1 0.7-1.6 [facility] [id number] 01:10:00 Test Item Value Reference Range Interpretation Comments Procalcitonin Lvl (test 0.06 See_Comment [Au tomated message] code = Procalcitonin Lvl) Th e system which generated this result transmitted ref erence range: <=0.10. The reference range was not used to interpr et this result as normal/abnormal . [facility] [id number] 06:09:00 Test Item Value Reference Range Interpretation Comments Lactic Acid Lvl (test code = Lactic 1.0 0.5-2.2 Acid Lvl) [facility] [id number] 06:09:00 Test Item Value Reference Range Interpretation Comments Lactic Acid Lvl (test code = Lactic 1.0 0.5-2.2 Acid Lvl) [facility] [id number] 06:09:00 Test Item Value Reference Range Interpretation Comments Lactic Acid Lvl (test code = Lactic 1.0 0.5-2.2 Acid Lvl) [facility]2020-02-12 06:09:00 Test Item Value Reference Range Interpretation Comments Lactic Acid Lvl (test code = Lactic 1.0 0.5-2.2 Acid Lvl) [place] [id number] 19:34:00 Test Item Value Reference Range Interpretation Comments Procalcitonin Lvl (test 0.08 See_Comment [Au tomated message] code = Procalcitonin Lvl) Th e system which generated this result transmitted ref erence range: <=0.10. The reference range was not used to interpr et this result as normal/abnormal . [place] 209480-02-11 19:34:00 Test Item Value Reference Range Interpretation Comments Lactic Acid Lvl (test code = Lactic 2.1 0.5-2.2 Acid Lvl) [place] 209480-02-11 19:34:00 Test Item Value Reference Range Interpretation Comments Procalcitonin Lvl (test 0.08 See_Comment [Au tomated message] code = Procalcitonin Lvl) Th e system which generated this result transmitted ref erence range: <=0.10. The reference range was not used to interpr et this result as normal/abnormal . [place] 209480-02-11 19:34:00 Test Item Value Reference Range Interpretation Comments Lactic Acid Lvl (test code = Lactic 2.1 0.5-2.2 Acid Lvl) [place] 209480-02-11 19:34:00 Test Item Value Reference Range Interpretation Comments Procalcitonin Lvl (test 0.08 See_Comment [Au tomated message] code = Procalcitonin Lvl) Th e system which generated this result transmitted ref erence range: <=0.10. The reference range was not used to interpr et this result as normal/abnormal . [place] 209480-02-11 19:34:00 Test Item Value Reference Range Interpretation Comments Lactic Acid Lvl (test code = Lactic 2.1 0.5-2.2 Acid Lvl) [place] 209480-02-11 19:34:00 Test Item Value Reference Range Interpretation Comments Procalcitonin Lvl (test 0.08 See_Comment [Au tomated message] code = Procalcitonin Lvl) Th e system which generated this result transmitted ref erence range: <=0.10. The reference range was not used to interpr et this result as normal/abnormal . [facility] [id number] 19:34:00 Test Item Value Reference Range Interpretation Comments Lactic Acid Lvl (test code = Lactic 2.1 0.5-2.2 Acid Lvl) [facility]2020-02-11 15:33:00 Test Item Value Reference Range Interpretation Comments Lactic Acid Lvl (test code = Lactic 4.1 0.5-2.2 Acid Lvl) [facility]2020-02-11 15:33:00 Test Item Value Reference Range Interpretation Comments Lactic Acid Lvl (test code = Lactic 4.1 0.5-2.2 Acid Lvl) [facility]2020-02-11 15:33:00 Test Item Value Reference Range Interpretation Comments Lactic Acid Lvl (test code = Lactic 4.1 0.5-2.2 Acid Lvl) [facility]2020-02-11 15:33:00 Test Item Value Reference Range Interpretation Comments Lactic Acid Lvl (test code = Lactic 4.1 0.5-2.2 Acid Lvl) [facility] [id number] 11:25:00 Test Item Value Reference Range Interpretation Comments B/C Ratio (test code = B/C Ratio) 12 1 6-25 [facility]2020-02-11 11:25:00 Test Item Value Reference Range Interpretation Comments Total Protein (test code = Total 7.1 6.4-8.4 Protein) [facility]2020-02-11 11:25:00 Test Item Value Reference Range Interpretation Comments Albumin Lvl (test code = Albumin Lvl) 2.9 3.5-5.0 [place] 209480-02-11 11:25:00 Test Item Value Reference Range Interpretation Comments Globulin (test code = Globulin) 4.2 2.7-4.2 [place] 209480-02-11 11:25:00 Test Item Value Reference Range Interpretation Comments A/G Ratio (test code = A/G Ratio) 0.7 1 0.7-1.6 [place] [id number] 11:25:00 Test Item Value Reference Range Interpretation Comments ALT (test code = ALT) 23 See_Comment [Auto mated message] The system which ge nerated this result transmit evelio reference range : <=65. The reference range was not used to interpr et this result as nataliia l/abnormal. [facility] [id number] 11:25:00 Test Item Value Reference Range Interpretation Comments AST (test code = AST) 36 See_Comment [Auto mated message] The system which ge nerated this result transmit evelio reference range : <=37. The reference range was not used to interpr et this result as nataliia l/abnormal. [facility] [id number] 11:25:00 Test Item Value Reference Range Interpretation Comments Alk Phos (test code = Alk Phos) 67 39-136 [facility] [id number] 11:25:00 Test Item Value Reference Range Interpretation Comments Bili Total (test code = Bili Total) 0.5 0.2-1.3 [facility] [id number] 11:25:00 Test Item Value Reference Range Interpretation Comments B/C Ratio (test code = B/C Ratio) 12 1 6-25 [facility] [id number] 11:25:00 Test Item Value Reference Range Interpretation Comments Total Protein (test code = Total 7.1 6.4-8.4 Protein) [facility] [id number] 11:25:00 Test Item Value Reference Range Interpretation Comments Albumin Lvl (test code = Albumin Lvl) 2.9 3.5-5.0 [facility] [id number] 11:25:00 Test Item Value Reference Range Interpretation Comments Globulin (test code = Globulin) 4.2 2.7-4.2 [facility] [id number] 11:25:00 Test Item Value Reference Range Interpretation Comments A/G Ratio (test code = A/G Ratio) 0.7 1 0.7-1.6 [facility] [id number] 11:25:00 Test Item Value Reference Range Interpretation Comments ALT (test code = ALT) 23 See_Comment [Auto mated message] The system which ge nerated this result transmit evelio reference range : <=65. The reference range was not used to interpr et this result as nataliia l/abnormal. [facility] [employer] [id number] 11:25:00 Test Item Value Reference Range Interpretation Comments AST (test code = AST) 36 See_Comment [Auto mated message] The system which ge nerated this result transmit evelio reference range : <=37. The reference range was not used to interpr et this result as nataliia l/abnormal. [facility] [id number] 11:25:00 Test Item Value Reference Range Interpretation Comments Alk Phos (test code = Alk Phos) 67 39-136 [facility] [id number] 11:25:00 Test Item Value Reference Range Interpretation Comments Bili Total (test code = Bili Total) 0.5 0.2-1.3 [facility] [id number] 11:25:00 Test Item Value Reference Range Interpretation Comments B/C Ratio (test code = B/C Ratio) 12 1 6-25 [facility] [id number] 11:25:00 Test Item Value Reference Range Interpretation Comments Total Protein (test code = Total 7.1 6.4-8.4 Protein) [facility] [id number] 11:25:00 Test Item Value Reference Range Interpretation Comments Albumin Lvl (test code = Albumin Lvl) 2.9 3.5-5.0 [facility] [id number] 11:25:00 Test Item Value Reference Range Interpretation Comments Globulin (test code = Globulin) 4.2 2.7-4.2 [facility] [id number] 11:25:00 Test Item Value Reference Range Interpretation Comments A/G Ratio (test code = A/G Ratio) 0.7 1 0.7-1.6 [facility] [id number] 11:25:00 Test Item Value Reference Range Interpretation Comments ALT (test code = ALT) 23 See_Comment [Auto mated message] The system which ge nerated this result transmit evelio reference range : <=65. The reference range was not used to interpr et this result as nataliia l/abnormal. [facility] [employer] [id number] 11:25:00 Test Item Value Reference Range Interpretation Comments AST (test code = AST) 36 See_Comment [Auto mated message] The system which ge nerated this result transmit evelio reference range : <=37. The reference range was not used to interpr et this result as nataliia l/abnormal. [facility] [employer] [id number] 11:25:00 Test Item Value Reference Range Interpretation Comments Alk Phos (test code = Alk Phos) 67 39-136 [facility] [id number] 11:25:00 Test Item Value Reference Range Interpretation Comments Bili Total (test code = Bili Total) 0.5 0.2-1.3 [facility] [id number] 11:25:00 Test Item Value Reference Range Interpretation Comments B/C Ratio (test code = B/C Ratio) 12 1 6-25 [facility] [id number] 11:25:00 Test Item Value Reference Range Interpretation Comments Total Protein (test code = Total 7.1 6.4-8.4 Protein) [facility] [id number] 11:25:00 Test Item Value Reference Range Interpretation Comments Albumin Lvl (test code = Albumin Lvl) 2.9 3.5-5.0 [facility] [id number] 11:25:00 Test Item Value Reference Range Interpretation Comments Globulin (test code = Globulin) 4.2 2.7-4.2 [facility] [employer] [id number] 11:25:00 Test Item Value Reference Range Interpretation Comments A/G Ratio (test code = A/G Ratio) 0.7 1 0.7-1.6 [facility] [employer] [id number] 11:25:00 Test Item Value Reference Range Interpretation Comments ALT (test code = ALT) 23 See_Comment [Auto mated message] The system which ge nerated this result transmit evelio reference range : <=65. The reference range was not used to interpr et this result as nataliia l/abnormal. [facility] [employer] [id number] 11:25:00 Test Item Value Reference Range Interpretation Comments AST (test code = AST) 36 See_Comment [Auto mated message] The system which ge nerated this result transmit evelio reference range : <=37. The reference range was not used to interpr et this result as nataliia l/abnormal. [facility] [employer] [id number] 11:25:00 Test Item Value Reference Range Interpretation Comments Alk Phos (test code = Alk Phos) 67 39-136 [facility] [id number] 11:25:00 Test Item Value Reference Range Interpretation Comments Bili Total (test code = Bili Total) 0.5 0.2-1.3 [facility] [id number] 20:51:00 Test Item Value Reference Range Interpretation Comments UA Ketones (test code = UA Negative mg/dL Ketones) [facility] [id number] 20:51:00 Test Item Value Reference Range Interpretation Comments UA Bili (test code = Negative *NA*(09/15/19 UA Bili) 2:51 PM) [facility] [id number] 20:51:00 Test Item Value Reference Range Interpretation Comments UA Blood (test code = Small *ABN*(09/15/19 UA Blood) 2:51 PM) [facility] [id number] 20:51:00 Test Item Value Reference Range Interpretation Comments UA Urobilinogen (test code = UA no gt 0.1-1.0 Urobilinogen) [facility] [id number] 20:51:00 Test Item Value Reference Range Interpretation Comments UA Nitrite (test code Negative (09/15/19 2:51 = UA Nitrite) PM) [facility] [id number] 20:51:00 Test Item Value Reference Range Interpretation Comments UA Leuk Est (test Negative (09/15/19 2:51 code = UA Leuk Est) PM) [facility] [id number] 20:51:00 Test Item Value Reference Range Interpretation Comments UA WBC (test code = 3 See_Comment [Automa evelio message] The UA WBC) system which ge nerated this result transmit evelio reference range : <=5. The reference range was not used to interpr et this result as nataliia l/abnormal. [facility] [id number] 20:51:00 Test Item Value Reference Range Interpretation Comments UA RBC (test code = 16 See_Comment [Automa evelio message] The UA RBC) system which ge nerated this result transmit evelio reference range : <=2. The reference range was not used to interpr et this result as nataliia l/abnormal. [facility] [id number] 20:51:00 Test Item Value Reference Range Interpretation Comments UA Sq Epi (test code = UA Sq Epi) None [facility]en [facility] [id number] 20:51:00 Test Item Value Reference Range Interpretation Comments UA Glucose (test code = UA Glucose) 50mg/dl [facility] [id number] 20:51:00 Test Item Value Reference Range Interpretation Comments Trig (test code = Trig) 83 [facility] [id number] 20:51:00 Test Item Value Reference Range Interpretation Comments Chol (test code = Chol) 253 [facility] [id number] 20:51:00 Test Item Value Reference Range Interpretation Comments HDL (test code = HDL) 71 [facility] [id number] 20:51:00 Test Item Value Reference Range Interpretation Comments CHD Risk (test code = CHD Risk) 3.56 1 3.90-5.80 [facility] [id number] 20:51:00 Test Item Value Reference Range Interpretation Comments LDL (Calculated) (test code = LDL 165 (Calculated)) [facility] [id number] 20:51:00 Test Item Value Reference Range Interpretation Comments VLDL (test code = VLDL) 17 1 [facility] [id number] 20:51:00 Test Item Value Reference Range Interpretation Comments Hgb A1C (test code = Hgb A1C) 5.5 [facility] [id number] 20:51:00 Test Item Value Reference Range Interpretation Comments UA Color (test code = Light Yellow UA Color) *NA*(09/15/19 2:51 PM) [facility] [id number] 20:51:00 Test Item Value Reference Range Interpretation Comments UA Turbidity (test code = Clear (09/15/19 2:51 UA Turbidity) PM) [facility] [id number] 20:51:00 Test Item Value Reference Range Interpretation Comments UA Spec Grav (test code = UA Spec 1.015 1 Grav) [facility] [id number] 20:51:00 Test Item Value Reference Range Interpretation Comments UA pH (test code = UA pH) 8.0 1 5.0-8.0 [facility] [id number] 20:51:00 Test Item Value Reference Range Interpretation Comments UA Protein (test code = UA Protein) 30 mg/dL [facility] [id number] 20:51:00 Test Item Value Reference Range Interpretation Comments UA Ketones (test code = UA Negative mg/dL Ketones) [facility] [id number] 20:51:00 Test Item Value Reference Range Interpretation Comments UA Bili (test code = Negative *NA*(09/15/19 UA Bili) 2:51 PM) [facility] [id number] 20:51:00 Test Item Value Reference Range Interpretation Comments UA Blood (test code = Small *ABN*(09/15/19 UA Blood) 2:51 PM) [facility] [id number] 20:51:00 Test Item Value Reference Range Interpretation Comments UA Urobilinogen (test code = UA no gt 0.1-1.0 Urobilinogen) [facility] [id number] 20:51:00 Test Item Value Reference Range Interpretation Comments UA Nitrite (test code Negative (09/15/19 2:51 = UA Nitrite) PM) [facility] [id number] 20:51:00 Test Item Value Reference Range Interpretation Comments UA Leuk Est (test Negative (09/15/19 2:51 code = UA Leuk Est) PM) [facility] [id number] 20:51:00 Test Item Value Reference Range Interpretation Comments UA WBC (test code = 3 See_Comment [Automa evelio message] The UA WBC) system which ge nerated this result transmit evelio reference range : <=5. The reference range was not used to interpr et this result as nataliia l/abnormal. [facility] [id number] 20:51:00 Test Item Value Reference Range Interpretation Comments UA RBC (test code = 16 See_Comment [Automa evelio message] The UA RBC) system which ge nerated this result transmit evelio reference range : <=2. The reference range was not used to interpr et this result as nataliia l/abnormal. [facility] [id number] 20:51:00 Test Item Value Reference Range Interpretation Comments UA Sq Epi (test code = UA Sq Epi) None Seen [facility] [id number] 20:51:00 Test Item Value Reference Range Interpretation Comments UA Glucose (test code = UA Glucose) 50mg/dl [facility] [id number] 20:51:00 Test Item Value Reference Range Interpretation Comments Trig (test code = Trig) 83 [facility] [id number] 20:51:00 Test Item Value Reference Range Interpretation Comments Chol (test code = Chol) 253 [facility] [id number] 20:51:00 Test Item Value Reference Range Interpretation Comments HDL (test code = HDL) 71 [facility] [id number] 20:51:00 Test Item Value Reference Range Interpretation Comments CHD Risk (test code = CHD Risk) 3.56 1 3.90-5.80 [facility] [id number] 20:51:00 Test Item Value Reference Range Interpretation Comments LDL (Calculated) (test code = LDL 165 (Calculated)) [facility] [id number] 20:51:00 Test Item Value Reference Range Interpretation Comments VLDL (test code = VLDL) 17 1 [facility] [id number] 20:51:00 Test Item Value Reference Range Interpretation Comments Hgb A1C (test code = Hgb A1C) 5.5 [facility] [id number] 20:51:00 Test Item Value Reference Range Interpretation Comments UA Color (test code = Light Yellow UA Color) *NA*(09/15/19 2:51 PM) [facility] [id number] 20:51:00 Test Item Value Reference Range Interpretation Comments UA Turbidity (test code = Clear (09/15/19 2:51 UA Turbidity) PM) [facility] [id number] 20:51:00 Test Item Value Reference Range Interpretation Comments UA Spec Grav (test code = UA Spec 1.015 1 Grav) [facility] [id number] 20:51:00 Test Item Value Reference Range Interpretation Comments UA pH (test code = UA pH) 8.0 1 5.0-8.0 [facility] [id number] 20:51:00 Test Item Value Reference Range Interpretation Comments UA Protein (test code = UA Protein) 30 mg/dL [facility] [id number] 20:51:00 Test Item Value Reference Range Interpretation Comments UA Ketones (test code = UA Negative mg/dL Ketones) [facility] [id number] 20:51:00 Test Item Value Reference Range Interpretation Comments UA Bili (test code = Negative *NA*(09/15/19 UA Bili) 2:51 PM) [facility] [id number] 20:51:00 Test Item Value Reference Range Interpretation Comments UA Blood (test code = Small *ABN*(09/15/19 UA Blood) 2:51 PM) [facility] [id number] 20:51:00 Test Item Value Reference Range Interpretation Comments UA Urobilinogen (test code = UA no gt 0.1-1.0 Urobilinogen) [facility] [id number] 20:51:00 Test Item Value Reference Range Interpretation Comments UA Nitrite (test code Negative (09/15/19 2:51 = UA Nitrite) PM) [facility] [id number] 20:51:00 Test Item Value Reference Range Interpretation Comments UA Leuk Est (test Negative (09/15/19 2:51 code = UA Leuk Est) PM) [facility] [id number] 20:51:00 Test Item Value Reference Range Interpretation Comments UA WBC (test code = 3 See_Comment [Automa evelio message] The UA WBC) system which ge nerated this result transmit evelio reference range : <=5. The reference range was not used to interpr et this result as nataliia l/abnormal. [facility] [id number] 20:51:00 Test Item Value Reference Range Interpretation Comments UA RBC (test code = 16 See_Comment [Automa evelio message] The UA RBC) system which ge nerated this result transmit evelio reference range : <=2. The reference range was not used to interpr et this result as nataliia l/abnormal. [facility] [id number] 20:51:00 Test Item Value Reference Range Interpretation Comments UA Sq Epi (test code = UA Sq Epi) None Seen [facility] [id number] 20:51:00 Test Item Value Reference Range Interpretation Comments UA Glucose (test code = UA Glucose) 50mg/dl [facility] [id number] 20:51:00 Test Item Value Reference Range Interpretation Comments Trig (test code = Trig) 83 [facility] [id number] 20:51:00 Test Item Value Reference Range Interpretation Comments Chol (test code = Chol) 253 [facility] [id number] 20:51:00 Test Item Value Reference Range Interpretation Comments HDL (test code = HDL) 71 [facility] [id number] 20:51:00 Test Item Value Reference Range Interpretation Comments CHD Risk (test code = CHD Risk) 3.56 1 3.90-5.80 [facility] TexasXyhtvjcTSEXUQ3694-17-02 20:51:00 Test Item Value Reference Range Interpretation Comments LDL (Calculated) (test code = LDL 165 (Calculated)) [facility] [id number] 20:51:00 Test Item Value Reference Range Interpretation Comments VLDL (test code = VLDL) 17 1 [facility] [id number] 20:51:00 Test Item Value Reference Range Interpretation Comments Hgb A1C (test code = Hgb A1C) 5.5 [facility] AND [id number] 20:51:00 Test Item Value Reference Range Interpretation Comments UA Color (test code = Light Yellow UA Color) *NA*(09/15/19 2:51 PM) [facility] AND [id number] 20:51:00 Test Item Value Reference Range Interpretation Comments UA Turbidity (test code = Clear (09/15/19 2:51 UA Turbidity) PM) [facility] AND [id number] 20:51:00 Test Item Value Reference Range Interpretation Comments UA Spec Grav (test code = UA Spec 1.015 1 Grav) [facility] [id number] 20:51:00 Test Item Value Reference Range Interpretation Comments UA pH (test code = UA pH) 8.0 1 5.0-8.0 [facility] [facility] [id number] 20:51:00 Test Item Value Reference Range Interpretation Comments UA Protein (test code = UA Protein) 30 mg/dL [facility] [id number] 20:51:00 Test Item Value Reference Range Interpretation Comments UA Ketones (test code = UA Negative mg/dL Ketones) [facility] [id number] 20:51:00 Test Item Value Reference Range Interpretation Comments UA Bili (test code = Negative *NA*(09/15/19 UA Bili) 2:51 PM) [facility] [id number] 20:51:00 Test Item Value Reference Range Interpretation Comments UA Blood (test code = Small *ABN*(09/15/19 UA Blood) 2:51 PM) [facility] [id number] 20:51:00 Test Item Value Reference Range Interpretation Comments UA Urobilinogen (test code = UA no gt 0.1-1.0 Urobilinogen) [facility] [id number] 20:51:00 Test Item Value Reference Range Interpretation Comments UA Nitrite (test code Negative (09/15/19 2:51 = UA Nitrite) PM) [facility] [id number] 20:51:00 Test Item Value Reference Range Interpretation Comments UA Leuk Est (test Negative (09/15/19 2:51 code = UA Leuk Est) PM) [facility] [id number] 20:51:00 Test Item Value Reference Range Interpretation Comments UA WBC (test code = 3 See_Comment [Automa evelio message] The UA WBC) system which ge nerated this result transmit evelio reference range : <=5. The reference range was not used to interpr et this result as nataliia l/abnormal. [facility] [id number] 20:51:00 Test Item Value Reference Range Interpretation Comments UA RBC (test code = 16 See_Comment [Automa evelio message] The UA RBC) system which ge nerated this result transmit evelio reference range : <=2. The reference range was not used to interpr et this result as nataliia l/abnormal. [facility] [id number] 20:51:00 Test Item Value Reference Range Interpretation Comments UA Sq Epi (test code = UA Sq Epi) None Seen [facility] [id number] 20:51:00 Test Item Value Reference Range Interpretation Comments UA Glucose (test code = UA Glucose) 50mg/dl [id number] 20:51:00 Test Item Value Reference Range Interpretation Comments Trig (test code = Trig) 83 [facility] [id number] 20:51:00 Test Item Value Reference Range Interpretation Comments Chol (test code = Chol) 253 [facility] [id number] 20:51:00 Test Item Value Reference Range Interpretation Comments HDL (test code = HDL) 71 [facility] [id number] 20:51:00 Test Item Value Reference Range Interpretation Comments CHD Risk (test code = CHD Risk) 3.56 1 3.90-5.80 [facility] [id number] 20:51:00 Test Item Value Reference Range Interpretation Comments LDL (Calculated) (test code = LDL 165 (Calculated)) [facility] [id number] 20:51:00 Test Item Value Reference Range Interpretation Comments VLDL (test code = VLDL) 17 1 [facility]SPE[facility] [id number] 20:51:00 Test Item Value Reference Range Interpretation Comments Hgb A1C (test code = Hgb A1C) 5.5 [facility] [id number] 20:51:00 Test Item Value Reference Range Interpretation Comments UA Color (test code = Light Yellow UA Color) *NA*(09/15/19 2:51 PM) [facility] [id number] 20:51:00 Test Item Value Reference Range Interpretation Comments UA Turbidity (test code = Clear (09/15/19 2:51 UA Turbidity) PM) [facility] [id number] 20:51:00 Test Item Value Reference Range Interpretation Comments UA Spec Grav (test code = UA Spec 1.015 1 Grav) [facility] [id number] 20:51:00 Test Item Value Reference Range Interpretation Comments UA pH (test code = UA pH) 8.0 1 5.0-8.0 [facility] [id number] 20:51:00 Test Item Value Reference Range Interpretation Comments UA Protein (test code = UA Protein) 30 mg/dL [facility]annCARDIAC [id number] 17:55:35 Test Item Value Reference Range Interpretation Comments Total CK (test code = Total CK) 169 12-191 [facility] CenterannCARDIAC [id number] 17:55:35 Test Item Value Reference Range Interpretation Comments Troponin-I (test code no gt See_Comment [Auto mated message] The = Troponin-I) system which g enerated this result transmit evelio reference range : <=0.40. The reference r natasha was not used to interpr et this result as nataliia l/abnormal. [id number] 17:55:35 Test Item Value Reference Range Interpretation Comments PT (test code = PT) 12.2 s 12.0-14.7 [facility] M[id number] 17:55:35 Test Item Value Reference Range Interpretation Comments INR (test code = INR) 0.91 1 0.85-1.17 [facility] Mi[id number] 17:55:35 Test Item Value Reference Range Interpretation Comments PTT (test code = PTT) 23.2 s 22.9-35.8 [facility] MichiganH[id number] 17:55:35 Test Item Value Reference Range Interpretation Comments RBC Morph (test code = Normal (09/15/19 11:55 RBC Morph) AM) [id number] 17:55:35 Test Item Value Reference Range Interpretation Comments Plt Morph (test code = Normal (09/15/19 11:55 Plt Morph) AM) [facility] [id number] 17:55:35 Test Item Value Reference Range Interpretation Comments Total CK (test code = Total CK) 169 12-191 [facility] [id number] 17:55:35 Test Item Value Reference Range Interpretation Comments Troponin-I (test code no gt See_Comment [Auto mated message] The = Troponin-I) system which g enerated this result transmit evelio reference range : <=0.40. The reference r natasha was not used to interpr et this result as nataliia l/abnormal. [facility] H[id number] 17:55:35 Test Item Value Reference Range Interpretation Comments PT (test code = PT) 12.2 s 12.0-14.7 [facility] MichiganDqwfvyjUAFIOAHEJO1627-47-22 17:55:35 Test Item Value Reference Range Interpretation Comments INR (test code = INR) 0.91 1 0.85-1.17 [facility] MichiganYuhoyylAKFIEJSNYR6519-44-55 17:55:35 Test Item Value Reference Range Interpretation Comments PTT (test code = PTT) 23.2 s 22.9-35.8 [facility] Ho[id number] 17:55:35 Test Item Value Reference Range Interpretation Comments RBC Morph (test code = Normal (09/15/19 11:55 RBC Morph) AM) [facility] Ho[id number] 17:55:35 Test Item Value Reference Range Interpretation Comments Plt Morph (test code = Normal (09/15/19 11:55 Plt Morph) AM) [facility] [id number] 17:55:35 Test Item Value Reference Range Interpretation Comments Total CK (test code = Total CK) 169 12-191 [facility] [id number] 17:55:35 Test Item Value Reference Range Interpretation Comments Troponin-I (test code no gt See_Comment [Auto mated message] The = Troponin-I) system which g enerated this result transmit evelio reference range : <=0.40. The reference r natasha was not used to interpr et this result as nataliia l/abnormal. [facility] Hospit[id number] 17:55:35 Test Item Value Reference Range Interpretation Comments PT (test code = PT) 12.2 s 12.0-14.7 [facility] Ho[id number] 17:55:35 Test Item Value Reference Range Interpretation Comments INR (test code = INR) 0.91 1 0.85-1.17 [facility] H[id number] 17:55:35 Test Item Value Reference Range Interpretation Comments PTT (test code = PTT) 23.2 s 22.9-35.8 [facility] H[id number] 17:55:35 Test Item Value Reference Range Interpretation Comments RBC Morph (test code = Normal (09/15/19 11:55 RBC Morph) AM) [facility] Hospit[id number] 17:55:35 Test Item Value Reference Range Interpretation Comments Plt Morph (test code = Normal (09/15/19 11:55 Plt Morph) AM) [facility] [id number] 17:55:35 Test Item Value Reference Range Interpretation Comments Total CK (test code = Total CK) 169 12-191 [facility] [id number] 17:55:35 Test Item Value Reference Range Interpretation Comments Troponin-I (test code no gt See_Comment [Auto mated message] The = Troponin-I) system which g enerated this result transmit evelio reference range : <=0.40. The reference r natasha was not used to interpr et this result as nataliia l/abnormal. [facility] Hospit[id number] 17:55:35 Test Item Value Reference Range Interpretation Comments PT (test code = PT) 12.2 s 12.0-14.7 [place] [id number] 17:55:35 Test Item Value Reference Range Interpretation Comments INR (test code = INR) 0.91 1 0.85-1.17 [facility] H[id number] 17:55:35 Test Item Value Reference Range Interpretation Comments PTT (test code = PTT) 23.2 s 22.9-35.8 [facility] Ho[id number] 17:55:35 Test Item Value Reference Range Interpretation Comments RBC Morph (test code = Normal (09/15/19 11:55 RBC Morph) AM) [place] [id number] 17:55:35 Test Item Value Reference Range Interpretation Comments Plt Morph (test code = Normal (09/15/19 11:55 Plt Morph) AM) [facility]
--- NOTE | 2022-09-11 11:11 | RAD REPORT ---
EXAM DESCRIPTION: CT - CTHCSPWOC - 09/11/2022 10:44 am CLINICAL HISTORY: Trauma, head and neck injury. Trauma, head injury COMPARISON: Head C Spine Mpr Wo Con dated 03/02/2022; SOFT TISSUE NECK W CONTRAST dated 01/10/2014; CT- [id number]-[id number] dated 07/18/2009 TECHNIQUE: Axial 5 mm thick images of the head were obtained. Axial 2 mm thick images of the cervical spine were obtained with sagittal and coronal reconstruction images generated and reviewed. All CT scans are performed using dose optimization technique as appropriate and may include automated exposure control or mA/KV adjustment according to patient size. FINDINGS: CT HEAD WITHOUT CONTRAST: No acute hemorrhage, hydrocephalus or extra-axial collection is identified.Significant brain atrophy is seen with a large area encephalomalacia right cerebral hemisphere.No areas of brain edema or midli ne shift. The paranasal sinuses and mastoids are clear.The calvarium is intact. CT CERVICAL SPINE WITHOUT CONTRAST: No fracture or subluxation.Moderate lower cervical degenerative changes are present.No prevertebral s oft tissues swelling is identified. Carotid atherosclerosis. IMPRESSION: No acute intracranial or cervical spine findings. Moderate lower cervical degenerative changes.
--- NOTE | 2022-09-11 11:23 | EDPHYS ---
Physician Documentation [facility] Name: Nai Ragland Age: 87 yrs Sex: Female : 1935 Arrival Date: 09/11/2022 Time: 10:20 Bed DX3 Private MD: ED Physician Linden Hutchins HPI: 09/11 11:28 This 87 yrs old Female presents to ER via EMS with complaints of slip and fall, on snw blood thinners. 11:28 The patient or guardian reports crush injury. The complaints affect the left occipital snw area and right occipital area. Context of injury: The problem was sustained at a fci or assisted living facility, resulted from a fall, slipped, from a standing position. Onset: The symptoms/episode began/occurred suddenly, just prior to arrival. Severity of symptoms: At their worst the symptoms were very mild. It is unknown whether or not the patient has had similar symptoms in the past. Historical: - Allergies: 12:19 No Known Allergies; [facility] - PMHx: 10:37 Asthma; Gastroesophageal reflux disease; Hypertension; CVA; 5 - PSHx: 10:37 ABRIL knee; jh5 - Immunization history:: Adult Immunizations up to date. - Social history:: Smoking status: Patient denies any tobacco usage or history of. ROS: 11:27 Constitutional: Negative for fever, chills, and weight loss, Eyes: Negative for injury, snw pain, redness, and discharge, ENT: Negative for injury, pain, and discharge, Neck: Negative for injury, pain, and swelling, Cardiovascular: Negative for chest pain, palpitations, and edema, Respiratory: Negative for shortness of breath, cough, wheezing, and pleuritic chest pain. 11:27 MS/extremity: Positive for chronic left arm pain. 11:27 Neuro: Negative for dizziness, loss of consciousness, + slip and fall. Exam: 10:36 Constitutional: This is a well developed, well nourished patient who is awake, alert, snw and in no acute distress. Head/Face: Normocephalic, atraumatic. Eyes: Pupils equal round and reactive to light, extra-ocular motions intact. Lids and lashes normal. Conjunctiva and sclera are non-icteric and not injected. Cornea within normal limits. Periorbital areas with no swelling, redness, or edema. ENT: Nares patent. No nasal discharge, no septal abnormalities noted. Tympanic membranes are normal and external auditory canals are clear. Oropharynx with no redness, swelling, or masses, exudates, or evidence of obstruction, uvula midline. Mucous membranes moist. Neck: Trachea midline, no thyromegaly or masses palpated, and no cervical lymphadenopathy. Supple, full range of motion without nuchal rigidity, or vertebral point tenderness. No Meningismus. Chest/axilla: Normal chest wall appearance and motion. Nontender with no deformity. No lesions are appreciated. Cardiovascular: Regular rate and rhythm with a normal S1 and S2. No gallops, murmurs, or rubs. Normal PMI, no JVD. No pulse deficits. 10:36 Abdomen/GI: Soft, non-tender, with normal bowel sounds. No distension or tympany. No guarding or rebound. No evidence of tenderness throughout. Back: No spinal tenderness. No costovertebral tenderness. Full range of motion. Skin: Warm, dry with normal turgor. Normal color with no rashes, no lesions, and no evidence of cellulitis. Neuro: Awake and alert, GCS 15, oriented to person, place, time, and situation. Cranial nerves II-XII grossly intact. Motor strength 5/5 in all extremities. Sensory grossly intact. Cerebellar exam normal. Normal gait. Psych: Awake, alert, with orientation to person, place and time. Behavior, mood, and affect are within normal limits. 10:36 Respiratory: the patient does not display signs of respiratory distress, Respirations: normal, Breath sounds: bronchial sounds. 10:36 Musculoskeletal/extremity: chronic deformity of left arm. Vital Signs: 10:31 BP 120 / 53; Pulse 89; Resp 16; Temp 98.6(O); Pulse Ox 100% ; Weight 76.2 kg; Height 5 jh5 ft. 4 in. (162.56 cm); Pain 6/10; 10:31 Body Mass Index 28.84 (76.20 kg, 162.56 cm) jh5 [place] Coma Score: 11:22 Eye Response: spontaneous(4). Verbal Response: oriented(5). Motor Response: obeys snw commands(6). Total: 15. 11:28 Eye Response: spontaneous(4). Verbal Response: oriented(5). Motor Response: obeys snw commands(6). Total: 15. MDM: 10:20 Patient medically screened. snw 11:22 Differential diagnosis: Contusion of Hematoma on Intracranial bleed- Concussion without snw LOC. Data reviewed: vital signs, nurses notes, EMS record. Independent interpretation of the following test(s) in the Emergency Department X-Ray: My interpretation is CXR, no acute. Care significantly affected by the following chronic conditions: Hypertension. Counseling: I had a detailed discussion with the patient and/or guardian regarding: the historical points, exam findings, and any diagnostic results supporting the discharge/admit diagnosis, radiology results, the need for outpatient follow up, for definitive care, to return to the emergency department if symptoms worsen or persist or if there are any questions or concerns that arise at home. Special discussion: Based on the patient's history, exam and DX evaluation, there is no indication for emergent intervention or inpatient TX. It is understood by the patient/guardian that if the SXs persist or worsen they need to return immediately for re-evaluation. Based on the history and exam findings, there is no indication for further emergent testing or inpatient evaluation. I discussed with the patient/guardian the need to see the primary care provider for further evaluation of the symptoms. 09/11 10:23 Order name: Chest Single View XRAY; Complete Time: 12:19 snw 09/11 10:23 Order name: CT Head C Spine; Complete Time: 11:14 snw Administered Medications: 12:22 Drug: [place] (HYDROcodone-acetaminophen) 5 mg-325 mg 1 tabs Route: PO; jh5 Disposition Summary: 09/11/22 11:22 Discharge Ordered Location: Home snw Condition: Stable snw Diagnosis - Fall on same level from slipping, tripping and stumbling with subsequent striking snw against object Followup: snw - With: Emergency Department - When: As needed - Reason: Worsening of condition Followup: snw - With: Private Physician - When: 2 - 3 days - Reason: Recheck today's complaints, Continuance of care, Re-evaluation by your physician Discharge Instructions: - Discharge Summary Sheet snw - Head Injury, Adult snw - Fall Prevention in the Home, Adult snw Forms: - Medication Reconciliation Form snw - Thank You Letter snw - Antibiotic Education snw - Prescription Opioid Use snw Signatures: Dispatcher [employer] EDMS Magdalena Matias, BUS INSPECTOR-C BUS INSPECTOR-Csnw Doretha Camarena, RN RN jh5
--- NOTE | 2022-09-11 11:23 | ER ---
Nurse's Notes [facility] Name: Nai Ragland Age: 87 yrs Sex: Female : 1935 Arrival Date: 09/11/2022 Time: 10:20 Bed DX3 Private MD: Diagnosis: Fall on same level from slipping, tripping and stumbling with subsequent striking against object Presentation: 09/11 10:31 Chief complaint: EMS states: Pt from [facility] assisted living and was being assisted jh5 from toilet to wheelchair at facility and fell. Hit her head to left posterior region on cabinet. Pt is complaining of headache and left rib pain. Pt is on blood thinners (eliquis). Coronavirus screen: Vaccine status: Patient reports receiving the 2nd dose of the covid vaccine. Client denies travel out of the [place] in the last 14 days. Ebola Screen: Patient negative for fever greater than or equal to 101.5 degrees Fahrenheit, and additional compatible Ebola Virus Disease symptoms Patient denies exposure to infectious person. Patient denies travel to an Ebola-affected area in the 21 days before illness onset. Initial Sepsis Screen: Does the patient meet any 2 criteria? No. Patient's initial sepsis screen is negative. Does the patient have a suspected source of infection? No. Patient's initial sepsis screen is negative. Risk Assessment: Do you want to hurt yourself or someone else? Patient reports no desire to harm self or others. Onset of symptoms was September 11, 2022. 10:31 Method Of Arrival: EMS: [place] [id number] 10:31 Acuity: JT 3 5 Triage Assessment: 10:37 General: Appears in no apparent distress. uncomfortable, well groomed, well developed, [facility] Behavior is calm, cooperative, appropriate for age. Pain: Complains of pain in left posterior scalp, left rib/back. Historical: - Allergies: 12:19 No Known Allergies; jh5 - PMHx: 10:37 Asthma; Gastroesophageal reflux disease; Hypertension; CVA; jh5 - PSHx: 10:37 ABRIL knee; jh5 - Immunization history:: Adult Immunizations up to date. - Social history:: Smoking status: Patient denies any tobacco usage or history of. Screenin:59 Abuse screen: Denies threats or abuse. Denies injuries from another. Nutritional [facility] screening: No deficits noted. Tuberculosis screening: No symptoms or risk factors identified. 12:19 [facility] ED Fall Risk Assessment (Adult) History of falling in the last 3 months, [facility] including since admission Yes- single mechanical fall (1 pt) Confusion or Disorientation No (0 pts) Intoxicated or Sedated No (0 pts) Impaired Gait Yes (1 pt) Mobility Assist Device Used Yes (1 pt) Altered Elimination Yes (1 pt) Score/Fall Risk Level 3 or more points = High Risk. Assessment: 11:59 Reassessment: spoke with daughter at this time; she is in [place] and unable to [facility] transport pt back to facility. 12:01 Reassessment: on phone with vu garcia at this time; REAGAN Banerjee and their bus [facility] food service driver is out to lunch with residents. Going to be at least a couple hours until excelsior picker. Vital Signs: 10:31 BP 120 / 53; Pulse 89; Resp 16; Temp 98.6(O); Pulse Ox 100% ; Weight 76.2 kg; Height 5 [facility] ft. 4 in. (162.56 cm); Pain 6/10; 10:31 Body Mass Index 28.84 (76.20 kg, 162.56 cm) [facility] [place] Coma Score: 11:22 Eye Response: spontaneous(4). Verbal Response: oriented(5). Motor Response: obeys snw commands(6). Total: 15. 11:28 Eye Response: spontaneous(4). Verbal Response: oriented(5). Motor Response: obeys snw commands(6). Total: 15. ED Course: 10:20 Patient arrived in ED. snw 10:21 Linden Hutchins MD is Attending Physician. snw 10:21 Magdalena Matias FNP-C is PHCP. snw 10:31 Doretha Camarena, REAGAN is Primary Nurse. 5 10:37 Triage completed. jh5 10:37 Arm band placed on right wrist. jh5 10:46 CT Head C Spine In Process Unspecified. EDMS 11:12 Chest Single View XRAY In Process Unspecified. EDMS 11:59 Patient has correct armband on for positive identification. Bed in low position. Call [facility] light in reach. Side rails up X2. 11:59 No provider procedures requiring assistance completed. [facility] 12:19 Patient did not have IV access during this emergency room visit. [facility] Administered Medications: 12: Drug: [place] (HYDROcodone-acetaminophen) 5 mg-325 mg 1 tabs Route: PO; [facility] Medication: 11:59 VIS not applicable for this client. [facility] Outcome: : Discharge ordered by MD. grubbs 14:03 Patient left the ED. ss Signatures: Dispatcher [employer] EDMagdalena Ramos, SONG-C SONG-Misty Perez RN RN Doretha Camarena RN RN [facility]
--- NOTE | 2022-09-11 12:17 | RAD REPORT ---
EXAM DESCRIPTION: RAD - Chest Single View - 09/11/2022 11:10 am CLINICAL HISTORY: fall Chest pain. COMPARISON: Chest Single View dated 02/25/2021; Abdomen 1 View (KUB) dated 10/01/2019; Chest Single Vi ew dated 07/11/2019; Chest Pa And Lat (2 Views) dated 01/09/2019 FINDINGS: Portable technique limits examination quality. Mild interstitial pulmonary edema. The heart is moderately enlarged. Trace pleural fluid. IMPRESSION: Mild to moderate CHF versus volume over.
[2022-09-11] MEDS ORDERED: HYDROCODONE/APAP 5/325 MG TAB ONE (12:24)
[2022-09-11 14:08] VITALS: BP 120/53; TEMP 98.6; O2SAT 100
== END 2022-09-11 14:03 | disposition home or self-care (01) ==
LOC: ER 10:18
DX: Z04.3 Encounter for examination and observation following other accident (principal); W01.10XA Fall on same level from slipping, tripping and stumbling with subsequent striking against unspecified object, initial encounter
CPT/HCPCS: 70450; 71045; 72125; 93005; 99283

== ENCOUNTER 2022-10-04 14:04 | Emergency (ER) | payer OTHER ==
--- OUTSIDE RECORDS SUMMARY | 2022-10-04 14:22 | XMS REPORT | Continuity of Care Document ---
:1935 Author Organization [facility] t Address [address] [place] [address] [address] [place] [address] Care Team Providers Name Role Phone Asked, No Pcp Primary Care Physician Unavailable [id number] Attending Clinician Unavailable Yaniv Fontana Attending Clinician Rick Randhawa Attending Clinician [id number] Admitting Clinician Unavailable Bridget Hernandez Admitting Clinician Payers Payer Name Policy Type Policy Number Effective Date Expiration Date Chase malin [facility] 53 [id number] [facility] Problems Condition Condition Condition Status Onset Resolution Last Treating Co mments Source Name Details Category Date Date Treatment Clinician Date ACUTE ACUTE Diagnosis Active 2019-09-23 Mem oria ISCHEMIC ISCHEMIC 09-15 09:05:00 l RIGHT MCA RIGHT MCA 00:00: Vahid eduardo STROKE STROKE 00 Active 09/15/[address] [facility] CVA CVA Diagnosis Active 2019-09-15 Mem oria Active 09-15 13:43:00 l 09/15/2019 00:00: Luciano perez [address] LUX LUX Diagnosis Active 2019-09-15 Memoria BILLING BILLING 09-15 13:32:00 l Active 00:00: Ottoniel 09/15/[address] [facility] CEREB CEREB Diagnosis Active 2019-09-23 Mem oria INFRC D/T INFRC D/T 09:05:00 l UNSP OCCLS UNSP OCCLS He rmann OR STENOS OR STENOS OF OF Active 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) (disorder) Active Problem 09/30/2022 [facility] Hypertensi Problem Active 2022-09-30 M emoria ve Hypertensi 23:58:39 l disorder, ve [place] systemic disorder, arterial systemic (disorder) arterial (disorder) Active Problem 09/30/2022 [facility] Spasticity Problem Active 2022-09-30 M emoria (finding) Spasticity 23:58:39 l (finding) [place] Active Problem 09/30/2022 [facility] [id number] Primary Problem 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 00:00:00 00:00:00 Smoking Status Start Date Stop Date Source Tobacco smoking consumption unknown [facility] Tobacco smoking status [facility] Medications Ordered Filled Start Stop Current Ordering Indication Dosage Frequency Signature Comments Components Source Medication Medication Date Date Medication? Clinician (SIG) Name Name baclofen 2021-08 Yes = 1 tab, Me moria mg oral 0-24 PO, BID, # l tablet 16:32: 60 mao, Faye Wolf n 00 Refill(s), Pharmacy: [facility], 149.86, cm, 09/23/20 10:44: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, Height, 70, kg, 10/14/20 9:23: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, Weight baclofen 2021-08 Yes = 1 tab, Me moria mg oral 0-24 PO, BID, # l tablet 16:32: 60 ea, 11 Luciano n 00 Refill(s), Pharmacy: 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, 149.86, cm, 09/23/20 10:44: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, Height, 70, kg, 10/14/20 9:23: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, Weight meloxicam Yes 15 mg = 1 Mem [...] ry 3-24 softner, l 14:19: Refill(s) Ottoniel 0 meloxicam 2021-0 Yes 15 mg = 1 Mem oria 15 mg oral 3-24 tab, PO, l tablet 14:19: Daily, # Ottoniel 00 30 tab, 0 Refill(s) non-formula 0 Yes stool Memor ia ry 3-24 softner, l 14:19: Refill(s) 0 meloxicam 0 Yes 15 mg = 1 Mem oria 15 mg oral 3-24 tab, PO, l tablet 14:19: Daily, # [place] 00 30 tab, 0 Refill(s) non-formula 0 Yes stool Memor ia ry 3-24 softner, l 14:19: Refill(s) 0 meloxicam Yes 15 mg = 1 Mem oria 15 mg oral 3-24 tab, PO, l tablet 14:19: Daily, # 30 tab, 0 Refill(s) non-formula Yes stool Memor ia ry 3-24 softner, l 14:19: Refill(s) 0 meloxicam Yes 15 mg = 1 Mem oria 15 mg oral 3-24 tab, PO, l tablet 14:19: Daily, # 30 tab, 0 Refill(s) non-formula Yes stool Memor ia ry 3-24 softner, l 14:19: Refill(s) 0 Melatonin 3 Yes 3 mg = 1 Me moria MG Extended 3-24 tab, PO, l Release 14:18: Bedtime, Luciano n Tablet 00 PRN for insomnia, # 14 tab, 0 Refill(s) melatonin Yes 3 mg = 1 Me moria mg oral 3-24 tab, PO, l tablet 14:18: Bedtime, Ottoniel 00 PRN for insomnia, # 14 tab, 0 Refill(s) Melatonin 3 0 Yes 3 mg = 1 Me moria MG Extended 3-24 tab, PO, l Release 14:18: Bedtime, Luciano n Tablet 00 PRN for insomnia, # 14 tab, 0 Refill(s) melatonin 3 0 Yes 3 mg = 1 Me moria mg oral 3-24 tab, PO, l tablet 14:18: Bedtime, Ottoniel 00 PRN for insomnia, # 14 tab, 0 Refill(s) Melatonin 3 0 Yes 3 mg = 1 Me moria MG Extended 3-24 tab, PO, l Release 14:18: Bedtime, Luciano n Tablet 00 PRN for insomnia, # 14 tab, 0 Refill(s) melatonin Yes 3 mg = 1 Me moria mg oral 3-24 tab, PO, l tablet 14:18: Bedtime, Ottoniel 00 PRN for insomnia, # 14 tab, 0 Refill(s) Melatonin 0 Yes 3 mg = 1 Me moria [...] 3-24 tab, PO, l tablet 14:18: Bedtime, [place] 00 PRN for insomnia, # 14 tab, 0 Refill(s) Melatonin Yes 3 mg = 1 Me moria MG Extended 3-24 tab, PO, l Release 14:18: Bedtime, Luciano n Tablet 00 PRN for insomnia, # 14 tab, 0 Refill(s) melatonin Yes 3 mg = 1 Me moria mg oral 3-24 tab, PO, l tablet 14:18: Bedtime, [place] 00 PRN for insomnia, # 14 tab, 0 Refill(s) Folic Acid Yes 1 mg = 1 Mem oria 1 MG Oral 3-24 tab, PO, l Tablet 14:17: Daily, # [place] 00 30 tab, 0 Refill(s) gabapentin Yes [...] Crystal nn 00 cap, 1 Refill(s) hydrALAZINE 2021-0 Yes 50 mg = 1 M [...] tab, PO, l tablet 14:17: Daily, # [place] 00 30 tab, 0 Refill(s) gabapentin 2022-0 Yes 100 mg = 1 M emoria 100 mg oral 3-24 cap, PO, l capsule 14:17: TID, # 90 Crystal nn 00 cap, 1 Refill(s) hydrALAZINE 2022-0 Yes 50 mg = 1 M emoria 50 mg oral 3-24 tab, PO, l tablet 14:17: TID, # 90 Luciano n 00 tab, 3 Refill(s) ketoconazol 2022-0 Yes 1 appl, Mem oria e topical [...] Crystal nn 00 cap, 1 Refill(s) Hydralazine 2022-0 Yes 50 mg = 1 M emoria Hydrochlori 3-24 tab, PO, l de 50 MG 14:17: TID, # 90 Herm eduardo Oral Tablet 00 tab, 3 Refill(s) Folic Acid 2022-0 Yes 1 mg = 1 Mem oria 1 MG Oral 3-24 tab, PO, l Tablet 14:17: Daily, # Ottoniel 00 30 tab, 0 Refill(s) gabapentin 2022-0 Yes 100 mg = 1 M emoria 100 MG Oral 3-24 cap, PO, l Capsule 14:17: TID, # 90 Crystal nn 00 cap, 1 Refill(s) Hydralazine 2022-0 Yes 50 mg = 1 M emoria Hydrochlori 3-24 tab, PO, l de 50 MG 14:17: TID, # 90 Herm eduardo Oral Tablet 00 tab, 3 Refill(s) Ketoconazol 2022-0 Yes 1 appl, Mem oria e 20 MG/ML 3-24 TOP, l Medicated 14:17: 2x/Wk, Luciano n Shampoo 00 separate doses by at least 3 days, # 120 mL, 1 Refill(s) folic acid 2021-0 Yes 1 mg = 1 Mem oria 1 mg oral 3-24 tab, PO, l tablet 14:17: Daily, # [place] 00 30 tab, 0 Refill(s) gabapentin 2022-0 Yes 100 mg = 1 M emoria 100 mg oral 3-24 cap, PO, l capsule 14:17: TID, # 90 Crystal nn 00 cap, 1 Refill(s) hydrALAZINE 2021-0 Yes 50 mg = 1 M emoria 50 mg oral 3-24 tab, PO, l tablet 14:17: TID, # 90 Luciano n 00 tab, 3 Refill(s) Ketoconazol 2021-0 Yes 1 appl, Mem oria e 20 MG/ML 3-24 TOP, l Medicated 14:17: 2x/Wk, Luciano n Shampoo 00 separate doses by at least 3 days, # 120 mL, 1 Refill(s) ketoconazol 2021-0 Yes 1 appl, Mem oria e topical 3-24 TOP, l 2% shampoo 14:17: 2x/Wk, Crystal nn 00 separate doses by at least 3 days, # 120 mL, 1 Refill(s) folic acid 2021-0 Yes 1 mg = 1 Mem oria 1 mg oral 3-24 tab, PO, l tablet 14:17: Daily, # [place] 00 30 tab, 0 Refill(s) gabapentin 2021-0 Yes 100 mg = 1 M emoria 100 mg oral 3-24 cap, PO, l capsule 14:17: TID, # 90 Crystal nn 00 cap, 1 Refill(s) hydrALAZINE 2021-0 Yes 50 mg = 1 M [...] tab, PO, l tablet 14:17: Daily, # [place] 00 30 tab, 0 Refill(s) gabapentin 2-0 Yes 100 mg = 1 M emoria 100 mg oral 3-24 cap, PO, l capsule 14:17: TID, # 90 Crystal nn 00 cap, 1 Refill(s) hydrALAZINE 2021-0 Yes 50 mg = 1 M [...] tab, PO, l tablet 14:17: Daily, # [place] 00 30 tab, 0 Refill(s) gabapentin 2021-0 Yes 100 mg = 1 M emoria 100 mg oral 3-24 cap, PO, l capsule 14:17: TID, # 90 Crystal nn 00 cap, 1 Refill(s) hydrALAZINE 2021-0 Yes 50 mg = 1 M [...] mg oral 3-24 Refill(s) l tablet 14:16: diazepam 5 2021-0 Yes 0 Memoria mg oral 3-24 Refill(s) l tablet 14:16: diazepam 5 2021-0 Yes 0 Memoria mg oral 3-24 Refill(s) l tablet 14:16: diazepam 5 2021-0 Yes 0 Memoria mg oral 3-24 Refill(s) l tablet 14:16: diazepam 5 2021-0 Yes 0 Memoria mg oral 3-24 Refill(s) l tablet 14:16: diazepam 5 2021-0 Yes 0 Memoria mg oral 3-24 Refill(s) l tablet 14:16: Ottoniel 00 Betamethaso 2021-0 Yes 1 appl, Mem oria ne 0.5 3-24 TOP, BID, l MG/ML / 14:15: # 15 gm, 0 Herm eduardo Clotrimazol 00 Refill(s) e 10 MG/ML Topical Cream betamethaso 2021-0 Yes 1 appl, Mem oria ne-clotrima 3-24 TOP, BID, l zole 14:15: # 15 gm, 0 [place] topical 00 Refill(s) 0.05%-1% cream Betamethaso 2021-0 Yes 1 appl, Mem oria ne 0.5 3-24 TOP, BID, l MG/ML / 14:15: # 15 gm, 0 Herm eduardo Clotrimazol 00 Refill(s) e 10 MG/ML Topical Cream betamethaso 2021-0 Yes 1 appl, Mem oria ne-clotrima 3-24 TOP, BID, l zole 14:15: # 15 gm, 0 [place] topical 00 Refill(s) 0.05%-1% cream Betamethaso 2021-0 Yes 1 appl, Mem oria ne 0.5 3-24 TOP, BID, l MG/ML / 14:15: # 15 gm, 0 Herm eduardo Clotrimazol 00 Refill(s) e 10 MG/ML Topical Cream betamethaso 2021-0 Yes 1 appl, Mem oria ne-clotrima 3-24 TOP, BID, l zole 14:15: # 15 gm, 0 [place] topical 00 Refill(s) 0.05%-1% cream Betamethaso 2021-0 [...] Ottoniel topical 00 Refill(s) 0.05%-1% cream Centrum 0 Yes PO, Daily, Hector imtiaz Silver 3-24 0 l Women's 14:14: Refill(s) Crystal nn 00 Centrum 0 Yes PO, Daily, Hector imtiaz Silver 3-24 0 l Women's 14:14: Refill(s) Crystal nn 00 Centrum 2021-0 Yes PO, Daily, Hector imtiaz Silver 3-24 0 l Women's 14:14: Refill(s) Crystal nn 00 Centrum 2021-0 Yes PO, Daily, Hector imtiaz Silver 3-24 0 l Women's 14:14: Refill(s) Crystal nn 00 Centrum 2021-0 Yes PO, Daily, Hector imtiaz Silver 3-24 0 l Women's 14:14: Refill(s) Crystal nn 00 Centrum 0 Yes PO, Daily, Hector imtiaz Silver 3-24 0 l Women's 14:14: Refill(s) Crystal nn 00 Bupivicaine Bupivicaine No 2.5mg [facility] [place] 1-18 [facility] 00:00: - [facility] Kenalog Kenalog No 40mg Common (Triamcinol (Triamcinol 1-18 S pirit one) one) 00:00: - [facility] Bupivicaine Bupivicaine No 2.5mg [facility] [place] 1-18 [facility] 00:00: - [facility] Fabioalog Kenalog 2021-0 No 40mg Common (Triamcinol (Triamcinol 1-18 S pirit one) one) 00:00: - [facility] Bupivicaine Bupivicaine 2020-0 No 2.5mg Common [place] 7-13 [facility] 00:00: - [facility] Kenalog Kenalog 2020-0 No 40mg Common (Triamcinol (Triamcinol 7-13 S pirit one) one) 00:00: - [facility] Bupivicaine Bupivicaine 2020-0 No 2.5mg [facility] [place] 7-13 [facility] 00:00: - [facility] Shannan Kenalog 2020-0 No 40mg Common (Triamcinol (Triamcinol 7-13 S pirit one) one) 00:00: - [facility] baclofen 10 2020-0 Yes 10 mg = 1 M emoria mg oral 7-02 tab, PO, l tablet 15:23: BID, # 60 Luciano n 00 tab, 3 Refill(s), Pharmacy: [facility], 149.86, cm, 09/23/20 10:44: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, Height, 70, kg, 10/14/20 9:23: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, 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 baclofen 0 Yes 10 mg = 1 M emoria mg oral 7-02 tab, PO, l tablet 15:23: BID, # 60 Luciano n 00 tab, 3 Refill(s), Pharmacy: [facility], 149.86, cm, 09/23/20 10:44: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 Bupivicaine Bupivicaine 2020-0 No 2.5mg [facility] [place] 3-23 [facility] (Triamcinol (Triamcinol 3-23 S pirit one) one) 00:00: - [facility] Bupivicaine Bupivicaine 2020-0 No 2.5mg [place] 3-23 [facility] 00:00: - [facility] Kenalog Kenalog 2020-0 No 40mg Common (Triamcinol (Triamcinol 3-23 S pirit one) one) 00:00: - [facility] Kenalog Kenalog 2019-1 No 40mg Common (Triamcinol (Triamcinol 2-15 S pirit one) one) 00:00: - [facility] Bupivicaine Bupivicaine 2019- No 2.5mg [place] 2-15 [facility] 00:00: - [facility] Kenalog Kenalog 2019-08 No 40mg Common (Triamcinol (Triamcinol 2-15 S pirit one) one) 00:00: - [facility] Bupivicaine Bupivicaine 2019-08 No 2.5mg [place] 2-15 [facility] 00:00: - [facility] Baclofen 2019-08 Yes 10 mg, [...] 1-12 PO, 0 l 16:08: Refill(s) omeprazole 2020-1 Yes 20 mg, PO, M emoria 1-12 Daily, 0 l 16:08: Refill(s) furosemide 2019-08 Yes 40 mg, PO, M emoria 1-12 Daily, 0 l 16:08: Refill(s) losartan 2019-08 Yes PO, Daily, Mem oria -12 0 l 16:08: Refill(s) Eliquis 2019-08 Yes PO, 0 Memoria 1-12 Refill(s) l 16:08: Baclofen 2019-08 Yes 10 mg, PO, Mem oria -12 0 l 16:08: Refill(s) Omeprazole 2019-08 Yes 20 mg, PO, M emoria 1-12 Daily, 0 l 16:08: Refill(s) Furosemide 2019-08 Yes 40 mg, PO, M emoria -12 Daily, 0 l 16:08: Refill(s) Losartan 2019-08 Yes PO, Daily, Mem oria -12 0 l 16:08: Refill(s) Eliquis 2019-08 Yes PO, 0 Memoria -12 Refill(s) l 16:08: gabapentin 2019-08 Yes 100 mg, Hector imtiaz 1-12 PO, 0 l 16:08: Refill(s) Magnesium 2019-08 Yes 400 mg, Memor ia Oxide -12 PO, 0 l 16:08: Refill(s) omeprazole 2019-08 Yes 20 mg, PO, M emoria 1-12 Daily, 0 l 16:08: Refill(s) furosemide 2019-08 Yes 40 mg, PO, M emoria 1-12 Daily, 0 l 16:08: Refill(s) losartan 2019-08 Yes PO, Daily, Mem oria 1-12 0 l 16:08: Refill(s) Eliquis 2019-08 Yes PO, 0 Memoria 1-12 Refill(s) l 16:08: Baclofen 2019-08 Yes 10 mg, PO, Mem oria -12 0 l 16:08: Refill(s) Omeprazole 2019-08 Yes [...] losartan 2019-08 Yes PO, Daily, Mem oria -12 0 l 16:08: Refill(s) Eliquis 2019-08 Yes PO, 0 Memoria 1-12 Refill(s) l 16:08: Baclofen 2019-08 Yes 10 mg, PO, Mem oria -12 0 l 16:08: Refill(s) Omeprazole 2019-08 Yes [...] Oxide 1-12 PO, 0 l 16:08: Refill(s) [place] 00 omeprazole 2019-08 Yes 20 mg, PO, M emoria 1-12 Daily, 0 l 16:08: Refill(s) furosemide 2019-08 Yes 40 mg, PO, M emoria 1-12 Daily, 0 l 16:08: Refill(s) Ottoniel 00 losartan 2019-08 Yes PO, Daily, Mem oria 1-12 0 l 16:08: Refill(s) Eliquis 2019-08 Yes PO, 0 Memoria 1-12 Refill(s) l 16:08: [place] 00 Bupivicaine Bupivicaine 2019-0 No 4mL [place] 7-20 [facility] 00:00: - [facility] Kenalog Kenalog 2019-0 No 40mg Common (Triamcinol (Triamcinol 7-20 S pirit one) one) 00:00: - [facility] Bupivicaine Bupivicaine 2019-0 No 4mL [place] 7-20 [facility] 00:00: - [facility] Kenalog Kenalog 2019-0 No 40mg Common (Triamcinol (Triamcinol 7-20 S pirit one) one) 00:00: - [facility] remove No Notes: Memoria patch 2-22 Remove l 11:00: patch 12 Ottoniel 00 hours after applicatio n each day. remove No Notes: Memoria patch 2-22 Remove l 11:00: patch 12 [place] 00 hours after applicatio n each day. remove No Notes: Memoria patch 2-22 Remove l 11:00: patch 12 Ottoniel 00 hours after applicatio n each day. remove No Notes: Memoria patch 2-22 Remove l 11:00: patch 12 [place] 00 hours after applicatio n each day. remove No Notes: Memoria patch 2-22 Remove l 11:00: patch 12 [place] 00 hours after applicatio n each day. [...] 4-6, Patch Start [Lidoderm] date: 09/26/19 13:46: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, Duration: 30 day, Stop date: 10/26/19 13:45:00 CDT, Remove after 12 hours Lidocaine 2020-0 No 1 patch, Hector imtiaz Hydrochlori 2-21 Route: l de 0.05 19:46: TOP, Q12H, Herm eduardo MG/MG 00 PRN Pain Transdermal Score 4-6, Patch Start [Lidoderm] date: 09/26/19 13:46: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, Duration: 30 day, Stop date: 10/26/19 13:45:00 CDT, Remove after 12 hours Lidocaine 2020-0 No 1 patch, Hector imtiaz Hydrochlori 2-21 Route: l de 0.05 19:46: TOP, Q12H, Herm eduardo MG/MG 00 PRN Pain Transdermal Score 4-6, Patch Start [Lidoderm] date: 09/26/19 13:46: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, Duration: 30 day, Stop date: 10/26/19 13:45:00 CDT, Remove after 12 hours Lidocaine 2020-0 No 1 patch, Hector imtiaz Hydrochlori 2-21 Route: l de 0.05 19:46: TOP, Q12H, Herm eduardo MG/MG 00 PRN Pain Transdermal Score 4-6, Patch Start [Lidoderm] date: 09/26/19 13:46: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, Duration: 30 day, Stop date: 10/26/19 13:45:00 CDT, Remove after 12 hours Lidocaine 2020-0 No 1 patch, Hector imtiaz Hydrochlori 2-21 Route: l de 0.05 19:46: TOP, Q12H, Herm eduardo MG/MG 00 PRN Pain Transdermal Score 4-6, Patch Start [Lidoderm] date: 09/26/19 13:46: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, Duration: 30 day, Stop date: 10/26/19 13:45:00 CDT, Remove after 12 hours Lidocaine 2020-0 No 1 patch, Hector imtiaz Hydrochlori 2-21 Route: l de 0.05 19:46: TOP, Q12H, Herm eduardo MG/MG 00 PRN Pain Transdermal Score 4-6, Patch Start [Lidoderm] date: 09/26/19 13:46: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, Duration: 30 day, Stop date: 10/26/19 13:45:00 CDT, Remove after 12 hours Aspirin 81 2020-0 Yes 81 mg = 1 Me moria MG Enteric 2-21 tab, PO, l Coated 15:05: Daily, 0 [place] Tablet 00 Refill(s) atorvastati 2020-0 Yes 80 mg = 1 M emoria n 80 mg 2-21 tab, PO, l oral tablet 15:05: Bedtime, 0 [place] 00 Refill(s) clopidogrel 2020-0 Yes 75 mg = 1 M emoria 75 mg oral 2-21 tab, PO, l tablet 15:05: Daily, 0 [place] 00 Refill(s) tamsulosin 2020-0 Yes 0.4 mg = 1 M emoria 0.4 mg oral 2-21 cap, PO, l capsule 15:05: After [place] 00 Dinner, 0 Refill(s) melatonin 3 2020-0 Yes 3 mg = 1 Me moria mg oral 2-21 tab, PO, l tablet 15:05: Bedtime, 0 Crystal nn 00 Refill(s) Albuterol 2020-0 Yes 3 mL, NEB, Me moria 0.833 MG/ML 2-21 RTID, PRN l / 15:05: Respirator Ottoniel Ipratropium 00 y [address], [place] 0 0.167 MG/ML Refill(s) Inhalant Solution [DuoNeb] [...] tab, PO, l Coated 15:05: Daily, 0 [place] Tablet 00 Refill(s) atorvastati 2020-0 Yes 80 mg = 1 M emoria n 80 mg 2-21 tab, PO, l oral tablet 15:05: Bedtime, 0 Ottoniel 00 Refill(s) clopidogrel 2020-0 Yes 75 mg = 1 M emoria 75 mg oral 2-21 tab, PO, l tablet 15:05: Daily, 0 [place] 00 Refill(s) tamsulosin 2020-0 Yes 0.4 mg [...] 15:05: Respirator Ottoniel Ipratropium 00 y [address], [place] 0 0.167 MG/ML Refill(s) Inhalant Solution [DuoNeb] [...] 2-21 RTID, PRN l / 15:05: Respirator [place] Ipratropium 00 y [address], [place] 0 0.167 MG/ML Refill(s) Inhalant Solution [DuoNeb] Budesonide 2020-0 Yes 2 Memoria 0.16 2-21 inhalation l MG/ACTUAT / 15:05: , Luciano n formoterol 00 INHALATION fumarate , RBID, 0 0.0045 Refill(s) MG/ACTUAT Metered Dose Inhaler labetalol 2020-0 Yes 200 mg = 1 Me moria 200 mg oral 2-21 tab, PO, l tablet 15:05: Q8H, 0 [place] 00 Refill(s) Aspirin 81 2020-0 Yes 81 mg = 1 Me moria MG Enteric 2-21 tab, PO, l Coated 15:05: Daily, 0 Ottoniel Tablet 00 Refill(s) atorvastati 2020-0 Yes 80 mg = 1 M emoria n 80 mg 2-21 tab, PO, l oral tablet 15:05: Bedtime, 0 [place] 00 Refill(s) clopidogrel 2020-0 Yes 75 mg = 1 M emoria 75 mg oral 2-21 tab, PO, l tablet 15:05: Daily, 0 [place] 00 Refill(s) tamsulosin 2020-0 Yes 0.4 mg = 1 M emoria 0.4 mg oral 2-21 cap, PO, l capsule 15:05: After [place] 00 Dinner, 0 Refill(s) melatonin 3 2020-0 Yes 3 mg = 1 Me moria mg oral 2-21 tab, PO, l tablet 15:05: Bedtime, 0 Crystal nn 00 Refill(s) Albuterol 2020-0 Yes 3 mL, NEB, Me moria 0.833 MG/ML 2-21 RTID, PRN l / 15:05: Respirator [place]iel Ipratropium 00 y Pathway, [place] 0 0.167 MG/ML Refill(s) Inhalant Solution [DuoNeb] Aspirin 81 2020-0 Yes 81 mg = 1 Me moria MG Enteric 2-21 tab, PO, l Coated 15:05: Daily, 0 [place] Tablet 00 Refill(s) atorvastati 2020-0 Yes 80 mg = 1 M emoria n 80 mg 2-21 tab, PO, l oral tablet 15:05: Bedtime, 0 [place] 00 Refill(s) clopidogrel 2020-0 Yes 75 mg = 1 M emoria 75 mg oral 2-21 tab, PO, l tablet 15:05: Daily, 0 [place] 00 Refill(s) tamsulosin 2020-0 Yes 0.4 mg = 1 M emoria 0.4 mg oral 2-21 cap, PO, l capsule 15:05: After [place] 00 Dinner, 0 Refill(s) melatonin 3 2020-0 Yes 3 mg = 1 Me moria mg oral 2-21 tab, PO, l tablet 15:05: Bedtime, 0 [place] nn 00 Refill(s) Budesonide 2020-0 Yes 2 Memoria 0.16 2-21 inhalation l MG/ACTUAT / 15:05: , [place] n formoterol 00 INHALATION fumarate , RBID, 0 0.0045 Refill(s) MG/ACTUAT Metered Dose Inhaler Albuterol 2020-0 Yes 3 mL, NEB, Me moria 0.833 MG/ML 2-21 RTID, PRN l / 15:05: Respirator [place] Ipratropium 00 y Pathway, [place] 0 0.167 MG/ML Refill(s) Inhalant Solution [DuoNeb] Budesonide 2020-0 Yes 2 Memoria 0.16 2-21 inhalation l MG/ACTUAT / 15:05: , [place] n formoterol 00 INHALATION fumarate , RBID, 0 0.0045 Refill(s) MG/ACTUAT Metered Dose Inhaler labetalol 2020-0 Yes 200 mg = 1 Me moria 200 mg oral 2-21 tab, PO, l tablet 15:05: Q8H, 0 [place] 00 Refill(s) labetalol 2020-0 Yes 200 mg = 1 Me moria 200 mg oral 2-21 tab, PO, l tablet 15:05: Q8H, 0 [place] 00 Refill(s) Aspirin 81 2020-0 Yes 81 mg = 1 Me moria MG Enteric 2-21 tab, PO, l Coated 15:05: Daily, 0 [place] Tablet 00 Refill(s) atorvastati 2020-0 Yes 80 mg = 1 M emoria n 80 mg 2-21 tab, PO, l oral tablet 15:05: Bedtime, 0 [place] 00 Refill(s) clopidogrel 2020-0 Yes 75 mg = 1 M emoria 75 mg oral 2-21 tab, PO, l tablet 15:05: Daily, 0 [place] 00 Refill(s) tamsulosin 2020-0 Yes 0.4 mg = 1 M emoria 0.4 mg oral 2-21 cap, PO, l capsule 15:05: After [place] Dinner, 0 Refill(s) melatonin 3 2020-0 Yes 3 mg = 1 Me moria mg oral 2-21 tab, PO, l tablet 15:05: Bedtime, 0 [place] Refill(s) Albuterol 2020-0 Yes 3 mL, NEB, Me moria 0.833 MG/ML 2-21 RTID, PRN l / 15:05: Respirator [place] Ipratropium 00 y Pathway, [place] 0 0.167 MG/ML Refill(s) Inhalant Solution [DuoNeb] Budesonide 2019-0 Yes 2 Memoria 0.16 2-21 inhalation l MG/ACTUAT / 15:05: , Luciano n formoterol 00 INHALATION fumarate , RBID, 0 0.0045 Refill(s) MG/ACTUAT Metered Dose Inhaler labetalol 2019-0 Yes 200 mg = 1 Me moria 200 mg oral 2-21 tab, PO, l tablet 15:05: Q8H, 0 Refill(s) budesonide- 2019-0 No Notes: Hector imtiaz formoterol 2-21 (Same as: l 160 mcg-4.5 14:16: Symbicort) [place] mcg/inh 00 WASTE: inhalation Aerosol - aerosol Return to with Pharmacy adapter budesonide- 2019-0 No Notes: Hector imtiaz formoterol 2-21 (Same as: l 160 mcg-4.5 14:16: Symbicort) [place] mcg/inh 00 WASTE: inhalation Aerosol - aerosol Return to with Pharmacy adapter budesonide- 2020-0 No Notes: Hector imtiaz formoterol 2-21 (Same as: l 160 mcg-4.5 14:16: Symbicort) [place] mcg/inh 00 WASTE: inhalation Aerosol - aerosol Return to with Pharmacy adapter budesonide- 2020-0 No Notes: Hector imtiaz formoterol 2-21 (Same as: l 160 mcg-4.5 14:16: Symbicort) [place] mcg/inh 00 WASTE: inhalation Aerosol - aerosol Return to with Pharmacy adapter budesonide- 2020-0 No Notes: Hector imtiaz formoterol 2-21 (Same as: l 160 mcg-4.5 14:16: Symbicort) [place] mcg/inh 00 WASTE: inhalation Aerosol - aerosol Return to with Pharmacy adapter budesonide- 2020-0 No Notes: Hector imtiaz formoterol 2-21 (Same as: l 160 mcg-4.5 14:16: Symbicort) [place] mcg/inh 00 WASTE: inhalation Aerosol - aerosol Return to with Pharmacy adapter Mucinex 2020-0 No Notes: Memoria 2-21 (Same as: l 03:00: Guaifenesi [place] 00 n [place], Humibid [place], Mucinex) "Do Not Crush" Take medication with plenty of water. Guanfacine 0 No 1 mg, Memori a 2-21 Route: PO, l 03:00: Drug form: [place] 00 TAB, Bedtime, Dosing Weight 68.182, kg, Start date: 09/25/19 21:00: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, Duration: 30 day, Stop date: 10/24/19 21:00:00 CDT Mucinex 2020-0 No Notes: Memoria 2-21 (Same as: l 03:00: Guaifenesi [place] 00 n [place], Humibid [place], Mucinex) "Do Not Crush" Take medication with plenty of water. 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 Guanfacine 2020-0 No 1 mg, Memori a 2-21 Route: PO, l 03:00: Drug form: [place] 00 TAB, Bedtime, Dosing Weight 68.182, kg, Start date: 09/25/19 21:00: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, Duration: 30 day, Stop date: 10/24/19 21:00:00 CDT Advair HFA 2020-0 No 2 puff, Hector imtiaz 115 mcg-21 2-20 Route: l mcg/inh 23:00: INHALATION Herm eduardo inhalation 00 , Dosing aerosol Weight with 68.182, adapter kg, BID, Start date: 09/25/19 17:00: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, Duration: 30 day, Stop date: 10/25/19 9:00:00 CDT Advair HFA 2020-0 No 2 puff, Hector imtiaz 115 mcg-21 2-20 Route: l mcg/inh 23:00: INHALATION Herm eduardo inhalation 00 , Dosing aerosol Weight with 68.182, adapter kg, BID, Start date: 09/25/19 17:00: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, Duration: 30 day, Stop date: 10/25/19 9:00:00 CDT Advair HFA 2020-0 No 2 puff, Hector imtiaz 115 mcg-21 2-20 Route: l mcg/inh 23:00: INHALATION Herm eduardo inhalation 00 , Dosing aerosol Weight with 68.182, adapter kg, BID, Start date: 09/25/19 17:00: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, Duration: 30 day, Stop date: 10/25/19 9:00:00 CDT Advair HFA 2020-0 No 2 puff, Hector imtiaz 115 mcg-21 2-20 Route: l mcg/inh 23:00: INHALATION Herm eduardo inhalation 00 , Dosing aerosol Weight with 68.182, adapter kg, BID, Start date: 09/25/19 17:00: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, Duration: 30 day, Stop date: 10/25/19 9:00:00 CDT Advair HFA 2020-0 No 2 puff, Hector imtiaz 115 mcg-21 2-20 Route: l mcg/inh 23:00: INHALATION Herm eduardo inhalation 00 , Dosing aerosol Weight with 68.182, adapter kg, BID, Start date: 09/25/19 17:00: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, Duration: 30 day, Stop date: 10/25/19 9:00:00 CDT Advair HFA 2020-0 No 2 puff, Hector imtiaz 115 mcg-21 2-20 Route: l mcg/inh 23:00: INHALATION Herm eduardo inhalation 00 , Dosing aerosol Weight with 68.182, adapter kg, BID, Start date: 09/25/19 17:00: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, Duration: 30 day, Stop date: 10/25/19 9:00:00 CDT Albuterol 2020-0 No Notes: Memori a 0.833 MG/ML 2-20 (Same as: l / 17:00: Duoneb) [place] Ipratropium 00 [place] 0.167 MG/ML Inhalant Solution [DuoNeb] Albuterol 0 No Notes: Memori a 0.833 MG/ML 2-20 (Same as: l / 17:00: Duoneb) [place] Ipratropium 00 [place] 0.167 MG/ML Inhalant Solution [DuoNeb] Albuterol No Notes: Memori a 0.833 MG/ML 2-20 (Same as: l / 17:00: Duoneb) [place] Ipratropium 00 [place] 0.167 MG/ML Inhalant Solution [DuoNeb] Albuterol No Notes: Memori a 0.833 MG/ML 2-20 (Same as: l / 17:00: Duoneb) [place] Ipratropium 00 [place] 0.167 MG/ML Inhalant Solution [DuoNeb] Albuterol No Notes: Memori a 0.833 MG/ML 2-20 (Same as: l / 17:00: Duoneb) [place] Ipratropium 00 [place] 0.167 MG/ML Inhalant Solution [DuoNeb] Albuterol No Notes: Memori a 0.833 MG/ML 2-20 (Same as: l / 17:00: Duoneb) [place] Ipratropium 00 [place] 0.167 MG/ML Inhalant Solution [DuoNeb] Aspirin 81 No Notes: Memor ia MG Enteric 2-20 Take with l Coated 16:00: food. [place] Tablet 00 Potassium No Notes: Memori a Chloride 2-20 (Same as: l 1.33 MEQ/ML 16:00: Potassium H ermann Oral 00 Chloride) Solution Aspirin 81 0 No Notes: Memor ia MG Enteric 2-20 Take with l Coated 16:00: food. [place] Tablet 00 Potassium 2020 No Notes: Memori a Chloride 2-20 (Same as: l 1.33 MEQ/ML 16:00: Potassium H ermann Oral 00 Chloride) Solution Aspirin 81 No Notes: Memor ia MG Enteric 2-20 Take with l Coated 16:00: food. [place] Tablet 00 Potassium 2019-0 No Notes: Memori a Chloride 2-20 (Same as: l 1.33 MEQ/ML 16:00: Potassium H ermann Oral 00 Chloride) Solution Aspirin 81 2019-0 No Notes: Memor ia MG Enteric 2-20 Take with l Coated 16:00: food. [place] Tablet 00 Potassium 2019-0 No Notes: Memori a Chloride 2-20 (Same as: l 1.33 MEQ/ML 16:00: Potassium H ermann Oral 00 Chloride) Solution Aspirin 81 0 No Notes: Memor ia MG Enteric 2-20 Take with l Coated 16:00: food. [place] Tablet 00 Potassium 0 No Notes: Memori a Chloride 2-20 (Same as: l 1.33 MEQ/ML 16:00: Potassium H ermann Oral 00 Chloride) Solution Aspirin 81 0 No Notes: Memor ia MG Enteric 2-20 Take with l Coated 16:00: food. [place] Tablet 00 Potassium 0 No Notes: Memori a Chloride 2-20 (Same as: l 1.33 MEQ/ML 16:00: Potassium H ermann Oral 00 Chloride) Solution Magnesium 0 No Notes: Memori a Sulfate 2-20 WASTE: F/P l 14:11: - Sink; E [place] - [facility] Trash Bin Magnesium 2020-0 No Notes: Memori a Sulfate 2-20 WASTE: F/P l 14:11: - Sink; E [place] - [facility] Trash Bin Magnesium 2020-0 No Notes: Memori a Sulfate 2-20 WASTE: F/P l 14:11: - Sink; E [place] 00 - Municipal Trash Bin Magnesium 2020-0 No Notes: Memori a Sulfate 2-20 WASTE: F/P l 14:11: - Sink; E [place] 00 - Municipal Trash Bin Magnesium 2020-0 No Notes: Memori a Sulfate 2-20 WASTE: F/P l 14:11: - Sink; E [place] - Municipal Trash Bin Magnesium 2020-0 No Notes: Memori a Sulfate 2-20 WASTE: F/P l 14:11: - Sink; E [place] - [facility] Trash Bin Plavix 0 No Notes: Memoria 2-19 (Same As: l 20:29: Plavix) [place] 00 Plavix 2020-0 No Notes: Memoria 2-19 (Same As: l 20:29: Plavix) [place] 00 Plavix 2019-0 No Notes: Memoria 2-19 (Same As: l 20:29: Plavix) [place] Plavix 2019-0 No Notes: Memoria 2-19 (Same As: l 20:29: Plavix) [place] Plavix 2019-0 No Notes: Memoria 2-19 (Same As: l 20:29: Plavix) [place] Plavix 2019-0 No Notes: Memoria 2-19 (Same As: l 20:29: Plavix) [place] Albuterol 2019-0 No Notes: Memori a 0.833 MG/ML 2-19 (Same as: l 20:27: Duoneb) [place] Ipratropium 00 [place] 0.167 MG/ML Inhalant Solution [DuoNeb] Albuterol 2020-0 No Notes: Memori a 0.833 MG/ML 2-19 (Same as: :: Duoneb) [place] Ipratropium 00 [place] 0.167 MG/ML Inhalant Solution [DuoNeb] Albuterol 2020-0 No Notes: Memori a 0.833 MG/ML 2-19 (Same as: l :27: Duoneb) [place] Ipratropium 00 [place] 0.167 MG/ML Inhalant Solution [DuoNeb] Albuterol 2020-0 No Notes: Memori a 0.833 MG/ML 2-19 (Same as: :27: Duoneb) [place] Ipratropium 00 [place] 0.167 MG/ML Inhalant Solution [DuoNeb] Albuterol 2020-0 No Notes: Memori a 0.833 MG/ML 2-19 (Same as: l :27: Duoneb) [place] Ipratropium 00 [place] 0.167 MG/ML Inhalant Solution [DuoNeb] Albuterol 2020-0 No Notes: Memori a 0.833 MG/ML 2-19 (Same as: l 20:27: Duoneb) [place] Ipratropium 00 [place] 0.167 MG/ML Inhalant Solution [DuoNeb] Labetalol 2020-0 No Notes: Memori a 2-18 With food. l 23:40: (Same [place] 00 as:Trandat e, Normodyne) Labetalol 2020-0 No Notes: Memori a 2-18 With food. l 23:40: (Same [place] 00 as:Trandat e, Normodyne) Labetalol 2020-0 No Notes: Memori a 2-18 With food. l 23:40: (Same [place] 00 as:Trandat e, Normodyne) Labetalol 2019-0 No Notes: Memori a 2-18 With food. l 23:40: (Same [place] 00 as:Trandat e, Normodyne) Labetalol 2019-0 No Notes: Memori a 2-18 With food. l 23:40: (Same [place] 00 as:Trandat e, Normodyne) Labetalol 2019-0 No Notes: Memori a 2-18 With food. l 23:40: (Same [place] 00 as:Trandat e, Normodyne) Docusate 2020-0 No Notes: Memoria Sodium 50 2-18 (Same as l MG / 15:00: Senokot-S) [place] sennosides, 00 Equiv. to HALF-WAY 8.6 MG Nikki-Colac Oral Tablet e. Docusate 2020-0 No Notes: Memoria Sodium 50 2-18 (Same as l MG / 15:00: Senokot-S) [place] sennosides, 00 Equiv. to HALF-WAY 8.6 MG Nikki-Colac Oral Tablet e. Docusate 2020-0 No Notes: Memoria Sodium 50 2-18 (Same as l MG / 15:00: Senokot-S) [place] sennosides, 00 Equiv. to HALF-WAY 8.6 MG Nikki-Col[place] Oral Tablet e. Docusate 2020-0 No Notes: Memoria Sodium 50 2-18 (Same as l MG / 15:00: Senokot-S) [place] sennosides, 00 Equiv. to HALF-WAY 8.6 MG Nikki-Colac Oral Tablet e. Docusate 2020-0 No Notes: Memoria Sodium 50 2-18 (Same as l MG / 15:00: Senokot-S) [place] sennosides, 00 Equiv. to HALF-WAY 8.6 MG Nikki-Colac Oral Tablet e. Docusate 2020-0 No Notes: Memoria Sodium 50 2-18 (Same as l MG / 15:00: Senokot-S) [place] sennosides, 00 Equiv. to HALF-WAY 8.6 MG Nikki-Colac Oral Tablet e. 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, Duration: 30 day, Stop date: 10/21/19 8:00:00 CDT, 0 Cardizem 2020-0 No 60 mg, Memoria 2-16 Route: PO, l 22:00: Drug form: [place] 00 TAB, Q8H, Start date: 09/21/19 16:00: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, Duration: 30 day, Stop date: 10/21/19 8:00:00 CDT, 0 Cardizem 2020-0 No 60 mg, Memoria 2-16 Route: PO, l 22:00: Drug form: [place] 00 TAB, Q8H, Start date: 09/21/19 16:00: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, Duration: 30 day, Stop date: 10/21/19 8:00:00 CDT, 0 Cardizem 2020-0 No 60 mg, Memoria 2-16 Route: PO, l 22:00: Drug form: [place] 00 TAB, Q8H, Start date: 09/21/19 16:00: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, Duration: 30 day, Stop date: 10/21/19 8:00:00 CDT, 0 Cardizem 2020-0 No 60 mg, Memoria 2-16 Route: PO, l 22:00: Drug form: [place] 00 TAB, Q8H, Start date: 09/21/19 16:00: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, Duration: 30 day, Stop date: 10/21/19 8:00:00 CDT, 0 Cardizem 2020-0 No 60 mg, Memoria 2-16 Route: PO, l 22:00: Drug form: [place] 00 TAB, Q8H, Start date: 09/21/19 16:00: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, Duration: 30 day, Stop date: 10/21/19 8:00:00 CDT, 0 Coreg 2020-0 No 25 mg, 1 Memoria 2-16 tab, l 20:00: Route: PO, [place] 00 Drug form: TAB, Q12H, Dosing Weight 68.182, kg, Start date: 09/21/19 14:00: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, Duration: 30 day, Stop date: 10/21/19 9:00:00 CDT, 0 Coreg 2020-0 No 25 mg, 1 Memoria 2-16 tab, l 20:00: Route: PO, [place] 00 Drug form: TAB, Q12H, Dosing Weight 68.182, kg, Start date: 09/21/19 14:00: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, Duration: 30 day, Stop date: 10/21/19 9:00:00 CDT, 0 Coreg 2020-0 No 25 mg, 1 Memoria 2-16 tab, l 20:00: Route: PO, [place] 00 Drug form: TAB, Q12H, Dosing Weight 68.182, kg, Start date: 09/21/19 14:00: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, Duration: 30 day, Stop date: 10/21/19 9:00:00 CDT, 0 Coreg 2020-0 No 25 mg, 1 Memoria 2-16 tab, l 20:00: Route: PO, [place] 00 Drug form: TAB, Q12H, Dosing Weight 68.182, kg, Start date: 09/21/19 14:00: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, Duration: 30 day, Stop date: 10/21/19 9:00:00 CDT, 0 Coreg 2020-0 No 25 mg, 1 Memoria 2-16 tab, l 20:00: Route: PO, [place] 00 Drug form: TAB, Q12H, Dosing Weight 68.182, kg, Start date: 09/21/19 14:00: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, Duration: 30 day, Stop date: 10/21/19 9:00:00 CDT, 0 Coreg 2020-0 No 25 mg, 1 Memoria 2-16 tab, l 20:00: Route: PO, [place] 00 Drug form: TAB, Q12H, Dosing Weight 68.182, kg, Start date: 09/21/19 14:00: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, Duration: 30 day, Stop date: 10/21/19 9:00:00 CDT, 0 Labetalol 2020-0 No 20 mg, 4 Hector imtiaz 2-16 mL, Route: l 18:10: IV, Drug [place] 00 form: INJ, Q6H, Dosing Weight 68.182, kg, PRN Hypertensi on, Start date: 09/21/19 12:10: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, Duration: 30 day, Stop date: 10/21/19 12:09:00 CDT, 0 Hydralazine 2020-0 No Notes: Hector imtiaz 2-16 (Same as: l 18:10: Apresoline [place] ) Push over 5 minutes Labetalol 2020-0 No 20 mg, 4 Hector imtiaz 2-16 mL, Route: l 18:10: IV, Drug [place] 00 form: INJ, Q6H, Dosing Weight 68.182, kg, PRN Hypertensi on, Start date: 09/21/19 12:10: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, Duration: 30 day, Stop date: 10/21/19 12:09:00 CDT, 0 Hydralazine 2020-0 No Notes: Hector imtiaz 2-16 (Same as: l 18:10: Apresoline [place] ) Push over 5 minutes Labetalol 2020-0 No 20 mg, 4 Hector imtiaz 2-16 mL, Route: l 18:10: IV, Drug [place] 00 form: INJ, Q6H, Dosing Weight 68.182, kg, PRN Hypertensi on, Start date: 09/21/19 12:10: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, Duration: 30 day, Stop date: 10/21/19 12:09:00 CDT, 0 Hydralazine 2020-0 No Notes: Hector imtiaz 2-16 (Same as: l 18:10: Apresoline [place] ) Push over 5 minutes Labetalol 2020-0 No 20 mg, 4 Hector imtiaz 2-16 mL, Route: l 18:10: IV, Drug [place] 00 form: INJ, Q6H, Dosing Weight 68.182, kg, PRN Hypertensi on, Start date: 09/21/19 12:10: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, Duration: 30 day, Stop date: 10/21/19 12:09:00 CDT, 0 Hydralazine 2020-0 No Notes: Hector imtiaz 2-16 (Same as: l 18:10: Apresoline [place] 00 ) Push over 5 minutes Labetalol 2020-0 No 20 mg, 4 Hector imtiaz 2-16 mL, Route: l 18:10: IV, Drug [place] 00 form: INJ, Q6H, Dosing Weight 68.182, kg, PRN Hypertensi on, Start date: 09/21/19 12:10: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, Duration: 30 day, Stop date: 10/21/19 12:09:00 CDT, 0 Hydralazine 2020-0 No Notes: Hector imtiaz 2-16 (Same as: l 18:10: Apresoline [place] 00 ) Push over 5 minutes Labetalol 2020-0 No 20 mg, 4 Hector imtiaz 2-16 mL, Route: l 18:10: IV, Drug [place] 00 form: INJ, Q6H, Dosing Weight 68.182, kg, PRN Hypertensi on, Start date: 09/21/19 12:10: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, Duration: 30 day, Stop date: 10/21/19 12:09:00 CDT, 0 Hydralazine 2020-0 No Notes: Hector imtiaz 2-16 (Same as: l 18:10: Apresoline [place] 00 ) Push over 5 minutes Labetalol 2020-0 No 10 mg, 2 Hector imtiaz 2-16 mL, Route: l 18:07: IV, Drug [place] 00 form: INJ, ONCE, Dosing Weight 68.182, kg, Start date: 09/21/19 12:07: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, Stop date: 09/21/19 12:07: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, 0 Labetalol 2020-0 No 10 mg, 2 Hector imtiaz 2-16 mL, Route: l 18:07: IV, Drug [place] 00 form: INJ, ONCE, Dosing Weight 68.182, kg, Start date: 09/21/19 12:07: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, Stop date: 09/21/19 12:07: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, 0 Labetalol 2020-0 No 10 mg, 2 Hector imtiaz 2-16 mL, Route: l 18:07: IV, Drug [place] 00 form: INJ, ONCE, Dosing Weight 68.182, kg, Start date: 09/21/19 12:07: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, Stop date: 09/21/19 12:07: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, 0 Labetalol 2020-0 No 10 mg, 2 Hector imtiaz 2-16 mL, Route: l 18:07: IV, Drug [place] 00 form: INJ, ONCE, Dosing Weight 68.182, kg, Start date: 09/21/19 12:07: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, Stop date: 09/21/19 12:07: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, 0 Labetalol 2020-0 No 10 mg, 2 Hector imtiaz 2-16 mL, Route: l 18:07: IV, Drug [place] 00 form: INJ, ONCE, Dosing Weight 68.182, kg, Start date: 09/21/19 12:07: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, Stop date: 09/21/19 12:07: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, 0 Labetalol 2020-0 No 10 mg, 2 Hector imtiaz 2-16 mL, Route: l 18:07: IV, Drug [place] 00 form: INJ, ONCE, Dosing Weight 68.182, kg, Start date: 09/21/19 12:07: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, Stop date: 09/21/19 12:07: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, 0 Diltiazem 2020-0 No 120 mg, Memor ia 2-16 Route: PO, l 15:00: Drug form: [place] 00 ERCAP, Daily, Dosing Weight 68.182, kg, Start date: 09/21/19 9:00: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, Duration: 30 day, Stop date: 10/20/19 9:00:00 CDT Diltiazem 2020-0 No 120 mg, Memor ia 2-16 Route: PO, l 15:00: Drug form: [place] 00 ERCAP, Daily, Dosing Weight 68.182, kg, Start date: 09/21/19 9:00: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, Duration: 30 day, Stop date: 10/20/19 9:00:00 CDT Diltiazem 2020-0 No 120 mg, Memor ia 2-16 Route: PO, l 15:00: Drug form: [place] 00 ERCAP, Daily, Dosing Weight 68.182, kg, Start date: 09/21/19 9:00: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, Duration: 30 day, Stop date: 10/20/19 9:00:00 CDT Diltiazem 2020-0 No 120 mg, Memor ia 2-16 Route: PO, l 15:00: Drug form: [place] 00 ERCAP, Daily, Dosing Weight 68.182, kg, Start date: 09/21/19 9:00: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, Duration: 30 day, Stop date: 10/20/19 9:00:00 CDT Diltiazem 2020-0 No 120 mg, Memor ia 2-16 Route: PO, l 15:00: Drug form: [place] 00 ERCAP, Daily, Dosing Weight 68.182, kg, Start date: 09/21/19 9:00: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, Duration: 30 day, Stop date: 10/20/19 9:00:00 CDT Diltiazem 2020-0 No 120 mg, Memor ia 2-16 Route: PO, l 15:00: Drug form: [place] 00 ERCAP, Daily, Dosing Weight 68.182, kg, Start date: 09/21/19 9:00: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, Duration: 30 day, Stop date: 10/20/19 9:00:00 CDT Cardizem 2019-0 No Notes: [facility] 2-16 (Same as: l 14:20: Cardizem) [place] 00 Before meals Cardizem 2019-0 No Notes: [facility] 2-16 (Same as: l 14:20: Cardizem) [place] 00 Before meals Cardizem 2019-0 No Notes: [facility]oria 2-16 (Same as: l 14:20: Cardizem) [place] 00 Before meals Cardizem 2019-0 No Notes: [facility] 2-16 (Same as: l 14:20: Cardizem) [place] 00 Before meals Cardizem 2020-0 No Notes: [facility] 2-16 (Same as: l 14:20: Cardizem) [place] 00 Before meals Cardizem 2019-0 No Notes: [facility] 2-16 (Same as: l 14:20: Cardizem) [place] 00 Before meals Potassium 2019-0 No Notes: Memori a Chloride 2-15 (Same as: l 14:02: K-Dur 20) [place] 00 "Do Not Crush" Give with food and full glass of water For patients unable to swallow tablet, dissolve in one half glass of water. Allow about 2 minutes for the tablets to disintegra te. Stir before giving to prepare slurry and administer . Please exclude Patient s with feeding tube less than 14 [place] (Dobhoff, J-tube etc) and pediatric and patients. [...] s with feeding tube less than 14 [place] (Dobhoff, J-tube etc) and pediatric and patients. Potassium 2020-0 No Notes: Mem[facility] a Chloride 2-15 (Same as: l 14:02: K-Dur 20) [place] 00 "Do Not Crush" Give with food and full glass of water For patients unable to swallow tablet, dissolve in one half glass of water. Allow about 2 minutes for the tablets to disintegra te. Stir before giving to prepare slurry and administer . Please exclude Patient s with feeding tube less than 14 [place] (Dobhoff, J-tube etc) and pediatric and patients. [...] s with feeding tube less than 14 [place] (Dobhoff, J-tube etc) and pediatric and patients. [...] s with feeding tube less than 14 [place] (Dobhoff, J-tube etc) and pediatric and patients. Potassium 2020-0 No Notes: [facility] a Chloride 2-15 (Same as: l 14:02: K-Dur 20) [place] 00 "Do Not Crush" Give with food and full glass of water For patients unable to swallow tablet, dissolve in one half glass of water. Allow about 2 minutes for the tablets to disintegra te. Stir before giving to prepare slurry and administer . Please exclude Patient s with feeding tube less than 14 [place] (Dobhoff, J-tube etc) and pediatric and patients. 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, 0 Potassium 2020-0 No 40 mEq, 2 [facility] Chloride 2-14 tab, l 1.33 MEQ/ML 20:00: Route: PO, [place] Oral 00 Drug form: Solution ERTAB, ONCE, Dosing Weight 68.182, kg, Start date: 09/19/19 14:00: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, Stop date: 09/19/19 14:00: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, 0 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, 0 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, 0 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, 0 valsartan 2020-0 No Notes: [facility] a 2-14 Same as l 15:00: Diovan [place] valsartan 2020-0 No Notes: [facility] a 2-14 Same as l 15:00: Diovan [place] valsartan 2020-0 No Notes: Memori a 2-14 Same as l 15:00: Diovan [place] valsartan 2020-0 No Notes: Memori a 2-14 Same as l 15:00: Diovan [place] valsartan 2020-0 No Notes: Memori a 2-14 Same as l 15:00: Diovan [place] valsartan 2020-0 No Notes: Memori a 2-14 Same as l 15:00: Diovan [place] Potassium 2020-0 Yes 40 mEq, 2 Mem oria Chloride 2-14 tab, l 1.33 MEQ/ML 12:42: Route: PO, [place] Oral 00 Drug form: Solution ERTAB, ONCE, Dosing Weight 68.182, kg, Start date: 09/19/19 6:42: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, Stop date: 09/19/19 6:42: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, 0 Potassium 2020-0 Yes 40 mEq, 2 Mem oria Chloride 2-14 tab, l 1.33 MEQ/ML 12:42: Route: PO, [place] Oral 00 Drug form: Solution ERTAB, ONCE, Dosing Weight 68.182, kg, Start date: 09/19/19 6:42: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, Stop date: 09/19/19 6:42: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, 0 Potassium 2020-0 Yes 40 mEq, 2 Mem oria Chloride 2-14 tab, l 1.33 MEQ/ML 12:42: Route: PO, [place] Oral 00 Drug form: Solution ERTAB, ONCE, Dosing Weight 68.182, kg, Start date: 09/19/19 6:42: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, Stop date: 09/19/19 6:42: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, 0 Potassium 2020-0 Yes 40 mEq, 2 Mem oria Chloride 2-14 tab, l 1.33 MEQ/ML 12:42: Route: PO, [place] Oral 00 Drug form: Solution ERTAB, ONCE, Dosing Weight 68.182, kg, Start date: 09/19/19 6:42: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, Stop date: 09/19/19 6:42: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, 0 Potassium 2020-0 Yes 40 mEq, 2 Mem oria Chloride 2-14 tab, l 1.33 MEQ/ML 12:42: Route: PO, [place] Oral 00 Drug form: Solution ERTAB, ONCE, Dosing Weight 68.182, kg, Start date: 09/19/19 6:42: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, Stop date: 09/19/19 6:42: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, 0 Potassium 2020-0 Yes 40 mEq, 2 Mem oria Chloride 2-14 tab, l 1.33 MEQ/ML 12:42: Route: PO, [place] Oral 00 Drug form: Solution ERTAB, ONCE, Dosing Weight 68.182, kg, Start date: 09/19/19 6:42: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, Stop date: 09/19/19 6:42: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, 0 valsartan 2020-0 No Notes: Memori a 2-13 Same as l 23:59: Diovan [place] 00 valsartan 2020-0 No Notes: Memori a 2-13 Same as l 23:59: Diovan [place] 00 valsartan 2020-0 No Notes: Memori a 2-13 Same as l 23:59: Diovan [place] 00 valsartan 2020-0 No Notes: Memori a 2-13 Same as l 23:59: Diovan [place] 00 valsartan 2020-0 No Notes: Memori a 2-13 Same as l 23:59: Diovan [place] 00 valsartan 2020-0 No Notes: Memori a 2-13 Same as l 23:59: Diovan [place] 00 Flomax 2020-0 No Notes: Memoria 2-13 (Same As: l 23:00: Flomax) [place] 00 "Do Not Crush" Flomax 2020-0 No Notes: Memoria 2-13 (Same As: l 23:00: Flomax) [place] 00 "Do Not Crush" Flomax 2020-0 No Notes: Memoria 2-13 (Same As: l 23:00: Flomax) [place] 00 "Do Not Crush" Flomax 2020-0 No Notes: Memoria 2-13 (Same As: l 23:00: Flomax) [place] 00 "Do Not Crush" Flomax 2020-0 No Notes: Memoria 2-13 (Same As: l 23:00: Flomax) [place] 00 "Do Not Crush" Flomax 2020-0 No Notes: Memoria 2-13 (Same As: l 23:00: Flomax) [place] 00 "Do Not Crush" Sodium 2020-0 No 1,000 mL, Memori a Chloride 2-13 Rate: 50 l 0.9% IV 21:51: ml/hr, [place] 1,000 mL 00 Infuse over: 20 hr, Route: IV, Dosing Weight 68.182 kg, Total Volume: 1,000, Start date: 09/18/19 15:51: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, Duration: 30 day, Stop date: 10/18/19 15:50:00 CDT, 1.68, m2, 0 Sodium 2020-0 No 1,000 mL, Memori a Chloride 2-13 Rate: 50 l 0.9% IV 21:51: ml/hr, [place] 1,000 mL 00 Infuse over: 20 hr, Route: IV, Dosing Weight 68.182 kg, Total Volume: 1,000, Start date: 09/18/19 15:51: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, Duration: 30 day, Stop date: 10/18/19 15:50:00 CDT, 1.68, m2, 0 Sodium 2020-0 No 1,000 mL, Memori a Chloride 2-13 Rate: 50 l 0.9% IV 21:51: ml/hr, [place] 1,000 mL 00 Infuse over: 20 hr, Route: IV, Dosing Weight 68.182 kg, Total Volume: 1,000, Start date: 09/18/19 15:51: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, Duration: 30 day, Stop date: 10/18/19 15:50:00 CDT, 1.68, m2, 0 Sodium 2020-0 No 1,000 mL, Memori a Chloride 2-13 Rate: 50 l 0.9% IV 21:51: ml/hr, [place] 1,000 mL 00 Infuse over: 20 hr, Route: IV, Dosing Weight 68.182 kg, Total Volume: 1,000, Start date: 09/18/19 15:51: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, Duration: 30 day, Stop date: 10/18/19 15:50:00 CDT, 1.68, m2, 0 Sodium 2020-0 No 1,000 mL, Memori a Chloride 2-13 Rate: 50 l 0.9% IV 21:51: ml/hr, [place] 1,000 mL 00 Infuse over: 20 hr, Route: IV, Dosing Weight 68.182 kg, Total Volume: 1,000, Start date: 09/18/19 15:51: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, Duration: 30 day, Stop date: 10/18/19 15:50:00 CDT, 1.68, m2, 0 Sodium 2020-0 No 1,000 mL, Memori a Chloride 2-13 Rate: 50 l 0.9% IV 21:51: ml/hr, [place] 1,000 mL 00 Infuse over: 20 hr, Route: IV, Dosing Weight 68.182 kg, Total Volume: 1,000, Start date: 09/18/19 15:51: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, Duration: 30 day, Stop date: 10/18/19 15:50:00 CDT, 1.68, m2, 0 valsartan 2019-0 No Notes: Memori a 2-13 Same as l 15:00: Diovan [place] 00 Potassium 2020-0 No Notes: Memori a Chloride 2-13 (Same as: l 1.33 MEQ/ML 15:00: Potassium H [place] Oral 00 Chloride) Solution valsartan 2019-0 No Notes: Memori a 2-13 Same as l 15:00: Diovan [place] 00 Potassium 2020-0 No Notes: Memori a Chloride 2-13 (Same as: l 1.33 MEQ/ML 15:00: Potassium H [place] Oral 00 Chloride) Solution valsartan 2019-0 No Notes: Memori a 2-13 Same as l 15:00: Diovan [place] 00 valsartan 2020-0 No Notes: Memori a 2-13 Same as l 15:00: Diovan [place] 00 Potassium 2020-0 No Notes: Memori a Chloride 2-13 (Same as: l 1.33 MEQ/ML 15:00: Potassium [place] Oral 00 Chloride) Solution Potassium 2020-0 No Notes: Memori a Chloride 2-13 (Same as: l 1.33 MEQ/ML 15:00: Potassium [place] Oral 00 Chloride) Solution valsartan 2020-0 No Notes: Memori a 2-13 Same as l 15:00: Diovan [place] 00 Potassium 2020-0 No Notes: Memori a Chloride 2-13 (Same as: l 1.33 MEQ/ML 15:00: Potassium [place] Oral 00 Chloride) Solution valsartan 2020-0 No Notes: Memori a 2-13 Same as l 15:00: Diovan [place] 00 Potassium 2020-0 No Notes: Memori a Chloride 2-13 (Same as: l 1.33 MEQ/ML 15:00: Potassium H [place] Oral 00 Chloride) Solution Potassium 2020-0 No Notes: Memori a Chloride 2-13 (Same as: l 12:02: K-Dur 20) [place] 00 "Do Not Crush" Give with food and full glass of water For patients unable to swallow tablet, dissolve in one half glass of water. Allow about 2 minutes for the tablets to disintegra te. Stir before giving to prepare slurry and administer . Please exclude Patient s with feeding tube less than 14 [place] (Dobhoff, J-tube etc) and pediatric and patients. [...] s with feeding tube less than 14 [place] (Dobhoff, J-tube etc) and pediatric and patients. [...] s with feeding tube less than 14 [place] (Dobhoff, J-tube etc) and pediatric and patients. [...] s with feeding tube less than 14 [place] (Dobhoff, J-tube etc) and pediatric and patients. Potassium 2020-0 No Notes: Memori a Chloride 2-13 (Same as: l 12:02: K-Dur 20) [place] 00 "Do Not Crush" Give with food and full glass of water For patients unable to swallow tablet, dissolve in one half glass of water. Allow about 2 minutes for the tablets to disintegra te. Stir before giving to prepare slurry and administer . Please exclude Patient s with feeding tube less than 14 [place] (Dobhoff, J-tube etc) and pediatric and patients. Potassium 2020-0 No Notes: Memori a Chloride 2-13 (Same as: l 12:02: K-Dur 20) [place] 00 "Do Not Crush" Give with food and full glass of water For patients unable to swallow tablet, dissolve in one half glass of water. Allow about 2 minutes for the tablets to disintegra te. Stir before giving to prepare slurry and administer . Please exclude Patient s with feeding tube less than 14 [place] (Dobhoff, J-tube etc) and pediatric and patients. Melatonin No Notes: Hector imtiaz MG Extended 2-13 [...] Melatonin) Herm eduardo Tablet 00 Melatonin 3 2020-0 No Notes: Hector imtiaz MG Extended 2-13 (Same as: l Release 06:10: Melatonin) Herm eduardo Tablet 00 NS (Bolus) 2020-0 No 1,000 mL, Me moria IV 2-12 1,000 l 20:42: ml/hr, [place] 00 Infuse Over: 1 hr, Route: IV, 1,000, Drug form: INJ, ONCE, Priority: STAT, Dosing Weight 68.182 kg, Start date: 09/17/19 14:42: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, 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, 0 NS (Bolus) 2020-0 No 1,000 mL, Me moria IV 2-12 1,000 l 20:42: ml/hr, [place] 00 Infuse Over: 1 hr, Route: IV, 1,000, Drug form: INJ, ONCE, Priority: STAT, Dosing Weight 68.182 kg, Start date: 09/17/19 14:42: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, 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, 0 NS (Bolus) 2019-0 No 1,000 mL, Me moria IV 2-12 1,000 l 20:42: ml/hr, [place] 00 Infuse Over: 1 hr, Route: IV, 1,000, Drug form: INJ, ONCE, Priority: STAT, Dosing Weight 68.182 kg, Start date: 09/17/19 14:42: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, 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, 0 NS (Bolus) 2019-0 No 1,000 mL, Me moria IV 2-12 1,000 l 20:42: ml/hr, [place] 00 Infuse Over: 1 hr, Route: IV, 1,000, Drug form: INJ, ONCE, Priority: STAT, Dosing Weight 68.182 kg, Start date: 09/17/19 14:42: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, 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, 0 NS (Bolus) 2020-0 No 1,000 mL, Me moria IV 2-12 1,000 l 20:42: ml/hr, [place] 00 Infuse Over: 1 hr, Route: IV, 1,000, Drug form: INJ, ONCE, Priority: STAT, Dosing Weight 68.182 kg, Start date: 09/17/19 14:42: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, 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 (Same As: Zithromax) Azithromyci 2019-0 No Notes: Hector imtiaz n 2-12 Take 1 l 16:30: hour [place] 00 before or 2 hours after meals. (Same As: Zithromax) Azithromyci 2020-0 No Notes: Hector imtiaz n 2-12 Take 1 l 16:30: hour [place] 00 before or 2 hours after meals. (Same As: Zithromax) Azithromyci 2020-0 No Notes: Hector imtiaz n 2-12 Take 1 l 16:30: hour [place] 00 before or 2 hours after meals. [...] Solution Potassium No Notes: Memori a Chloride 2-12 (Same as: l 1.33 MEQ/ML 16:28: Potassium H [place] Oral 00 Chloride) Solution Potassium No Notes: Memori a Chloride 2-12 (Same as: l 1.33 MEQ/ML 16:28: Potassium H [place] Oral 00 Chloride) Solution Potassium No Notes: Memori a Chloride 2-12 (Same as: l 1.33 MEQ/ML 16:28: Potassium H [place] Oral 00 Chloride) Solution Potassium No Notes: Memori a Chloride 2-12 (Same as: l 1.33 MEQ/ML 16:28: Potassium H [place] Oral 00 Chloride) Solution Potassium No Notes: Memori a Chloride 2-12 (Same as: l 1.33 MEQ/ML 16:28: Potassium [place] Oral 00 Chloride) Solution Coreg No Notes: Memoria 2-12 Give with l 15:00: food. [place] (Same As: Coreg) Coreg No Notes: Memoria 2-12 Give with l 15:00: food. [place] (Same As: Coreg) Coreg No Notes: Memoria 2-12 Give with l 15:00: food. [place] (Same As: Coreg) Coreg No Notes: Memoria 2-12 Give with l 15:00: food. [place] (Same As: Coreg) Coreg 0 No Notes: Memoria 2-12 Give with l 15:00: food. [place] (Same As: Coreg) Coreg No Notes: Memoria 2-12 Give with l 15:00: food. [place] (Same As: Coreg) Potassium 0 No Notes: Memori a Chloride 2-12 (Same as: l 12:00: KCL) [place] 00 Infuse over 2 hours. Potassium 2019-0 [...] Chloride 2-12 (Same as: l 12:00: KCL) [place] 00 Infuse over 2 hours. Potassium 2020-0 No Notes: Memori a Chloride 2-12 (Same as: l 12:00: KCL) [place] 00 Infuse over 2 hours. Potassium 2020-0 [...] imtiaz 2-11 (Same As: l 22:00: Rocephin). MEDICATION WASTE Product Size: 1000 mg Product Wasted: _0__ mg Ceftriaxone 2020-0 No Notes: Hector imtiaz 2-11 (Same As: l 22:00: Rocephin). MEDICATION WASTE Product Size: 1000 mg Product Wasted: _0__ mg Ceftriaxone 2020-0 No Notes: Hector imtiaz 2-11 (Same As: l 22:00: Rocephin). [place] 00 MEDICATION WASTE Product Size: 1000 mg Product Wasted: _0__ mg Ceftriaxone 2020-0 No Notes: Hector imtiaz 2-11 (Same As: l 22:00: Rocephin). [place] 00 MEDICATION WASTE Product Size: 1000 mg Product Wasted: _0__ mg Ceftriaxone 2020-0 No Notes: Hector imtiaz 2-11 (Same As: l 22:00: Rocephin). [place] 00 MEDICATION WASTE Product Size: 1000 mg Product Wasted: _0__ mg Ceftriaxone 2020-0 No Notes: Hector imtiaz 2-11 (Same As: l 22:00: Rocephin). [place] 00 MEDICATION WASTE Product Size: 1000 mg Product Wasted: _0__ mg Hydralazine 2020-0 No Notes: Hector imtiaz 2-11 (Same as: l 20:37: Apresoline [place] 00 ) Hydralazine 2020-0 No Notes: Hector imtiaz 2-11 (Same as: l 20:37: Apresoline [place] 00 ) Hydralazine 2020-0 No Notes: Hector imtiaz 2-11 (Same as: l 20:37: Apresoline [place] 00 ) Hydralazine 2020-0 No Notes: Hector imtiaz 2-11 (Same as: l 20:37: Apresoline [place] 00 ) Hydralazine 2020-0 No Notes: Hector imtiaz 2-11 (Same as: l 20:37: Apresoline [place] 00 ) Hydralazine 2020-0 No Notes: Hector [...] Total Volume: 1,000, Start date: 09/16/19 14:36: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, Duration: 30 day, Stop date: 10/16/19 13:36:00 CDT, 1.68, m2, 0 Coreg 2020-0 No Notes: Memoria 2-11 Give with l 20:36: food. [place] (Same As: Coreg) Sodium 2020-0 No 1,000 mL, Memori a Chloride 2-11 Rate: 100 l 0.9% IV 20:36: ml/hr, [place] 1,000 mL 00 Infuse over: 10 hr, Route: IV, Dosing Weight 68.182 kg, Total Volume: 1,000, Start date: 09/16/19 14:36: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, Duration: 30 day, Stop date: 10/16/19 13:36:00 CDT, 1.68, m2, 0 Coreg 2020-0 No Notes: Memoria 2-11 Give with l 20:36: food. [place] (Same As: Coreg) Sodium 2020-0 No 1,000 mL, Memori a Chloride 2-11 Rate: 100 l 0.9% IV 20:36: ml/hr, [place] 1,000 mL 00 Infuse over: 10 hr, Route: IV, Dosing Weight 68.182 kg, Total Volume: 1,000, Start date: 09/16/19 14:36: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, Duration: 30 day, Stop date: 10/16/19 13:36:00 CDT, 1.68, m2, 0 Coreg 2020-0 No Notes: Memoria 2-11 Give with l 20:36: food. [place] (Same As: Coreg) Sodium 2020-0 No 1,000 mL, Memori a Chloride 2-11 Rate: 100 l 0.9% IV 20:36: ml/hr, [place] 1,000 mL 00 Infuse over: 10 hr, Route: IV, Dosing Weight 68.182 kg, Total Volume: 1,000, Start date: 09/16/19 14:36: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, Duration: 30 day, Stop date: 10/16/19 13:36:00 CDT, 1.68, m2, 0 Coreg 2020-0 No Notes: Memoria 2-11 Give with l 20:36: food. [place] (Same As: Coreg) Sodium 2020-0 No 1,000 mL, Memori a Chloride 2-11 Rate: 100 l 0.9% IV 20:36: ml/hr, [place] 1,000 mL 00 Infuse over: 10 hr, Route: IV, Dosing Weight 68.182 kg, Total Volume: 1,000, Start date: 09/16/19 14:36: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, Duration: 30 day, Stop date: 10/16/19 13:36:00 CDT, 1.68, m2, 0 Coreg 2020-0 No Notes: Memoria 2-11 Give with l 20:36: food. [place] 00 (Same As: Coreg) Sodium 2020-0 No 1,000 mL, Memori a Chloride 2-11 Rate: 100 l 0.9% IV 20:36: ml/hr, [place] 1,000 mL 00 Infuse over: 10 hr, Route: IV, Dosing Weight 68.182 kg, Total Volume: 1,000, Start date: 09/16/19 14:36: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, Duration: 30 day, Stop date: 10/16/19 13:36:00 CDT, 1.68, m2, 0 Tylenol 2020-0 No 100.4 F, Memor ia 2-11 Start l 20:33: date: 09/16/19 14:33: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, Duration: 30 day, Stop date: 10/16/19 14:32:00 CDT, 0 Motrin 2020-0 No 100.4 F, Memori a 2-11 Start l 20:33: date: 09/16/19 14:33: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, Duration: 30 day, Stop date: 10/16/19 14:32:00 CDT, 0 Tylenol 2020-0 No 100.4 F, Memor ia 2-11 Start l 20:33: date: 09/16/19 14:33: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, Duration: 30 day, Stop date: 10/16/19 14:32:00 CDT, 0 Motrin 2020-0 No 100.4 F, Memori a 2-11 Start l 20:33: date: 09/16/19 14:33: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, Duration: 30 day, Stop date: 10/16/19 14:32:00 CDT, 0 Tylenol 2020-0 No 100.4 F, Memor ia 2-11 Start l 20:33: date: 09/16/19 14:33: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, Duration: 30 day, Stop date: 10/16/19 14:32:00 CDT, 0 Motrin 2020-0 No 100.4 F, Akinori a 2-11 Start l 20:33: date: 09/16/19 14:33: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, Duration: 30 day, Stop date: 10/16/19 14:32:00 CDT, 0 Tylenol 2020-0 No 100.4 F, Memor ia 2-11 Start l 20:33: date: 09/16/19 14:33: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, Duration: 30 day, Stop date: 10/16/19 14:32:00 CDT, 0 Motrin 2020-0 No 100.4 F, Akinori a 2-11 Start l 20:33: date: 09/16/19 14:33: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, Duration: 30 day, Stop date: 10/16/19 14:32:00 CDT, 0 Tylenol 2020-0 No 100.4 F, Akinor ia 2-11 Start l 20:33: date: 09/16/19 14:33: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, Duration: 30 day, Stop date: 10/16/19 14:32:00 CDT, 0 Motrin 2020-0 No 100.4 F, Akinori a 2-11 Start l 20:33: date: 09/16/19 14:33: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, Duration: 30 day, Stop date: 10/16/19 14:32:00 CDT, 0 Tylenol 2020-0 No 100.4 F, Memor ia 2-11 Start l 20:33: date: 09/16/19 14:33: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, Duration: 30 day, Stop date: 10/16/19 14:32:00 CDT, 0 Motrin 2020-0 No 100.4 F, Akinori a 2-11 Start l 20:33: date: 09/16/19 14:33: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, Duration: 30 day, Stop date: 10/16/19 14:32:00 CDT, 0 heparin 2020-0 No Notes: Memoria 2-11 porcine l 18:45: heparin heparin 2020-0 No Notes: Memoria 2-11 porcine l 18:45: heparin [place] 00 heparin 2020-0 No Notes: Memoria 2-11 porcine l 18:45: heparin [place] 00 heparin 2020-0 No Notes: Memoria 2-11 porcine l 18:45: heparin [place] 00 heparin 2020-0 No Notes: Memoria 2-11 porcine l 18:45: heparin [place] 00 heparin 2020-0 No Notes: Memoria 2-11 porcine l 18:45: heparin [place] 00 valsartan 2020-0 No Notes: Memori a 2-11 Same as l 18:05: Diovan [place] 00 valsartan 2020-0 No Notes: Memori a 2-11 Same as l 18:05: Diovan [place] 00 valsartan 2020-0 No Notes: Memori a 2-11 Same as l 18:05: Diovan [place] 00 valsartan 2020-0 No Notes: Memori a 2-11 Same as l 18:05: Diovan [place] 00 valsartan 2020-0 No Notes: Memori a [...] Total Volume: 1,000, Start date: 09/16/19 11:42: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, Duration: 30 day, Stop date: 10/16/19 11:41:00 CDT, 1.68, m2, 0 Sodium 2020-0 No 1,000 mL, Memori a Chloride 2-11 Rate: 100 l 0.9% IV 17:42: ml/hr, [place] 1,000 mL 00 Infuse over: 10 hr, Route: IV, Dosing Weight 68.182 kg, Total Volume: 1,000, Start date: 09/16/19 11:42: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, Duration: 30 day, Stop date: 10/16/19 11:41:00 CDT, 1.68, m2, 0 Sodium 2020-0 No 1,000 mL, Memori a Chloride 2-11 Rate: 100 l 0.9% IV 17:42: ml/hr, [place] 1,000 mL 00 Infuse over: 10 hr, Route: IV, Dosing Weight 68.182 kg, Total Volume: 1,000, Start date: 09/16/19 11:42: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, Duration: 30 day, Stop date: 10/16/19 11:41:00 CDT, 1.68, m2, 0 Sodium 2020-0 No 1,000 mL, Memori a Chloride 2-11 Rate: 100 l 0.9% IV 17:42: ml/hr, [place] 1,000 mL 00 Infuse over: 10 hr, Route: IV, Dosing Weight 68.182 kg, Total Volume: 1,000, Start date: 09/16/19 11:42: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, Duration: 30 day, Stop date: 10/16/19 11:41:00 CDT, 1.68, m2, 0 Sodium 2020-0 No 1,000 mL, Memori a Chloride 2-11 Rate: 100 l 0.9% IV 17:42: ml/hr, [place] 1,000 mL 00 Infuse over: 10 hr, Route: IV, Dosing Weight 68.182 kg, Total Volume: 1,000, Start date: 09/16/19 11:42: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, Duration: 30 day, Stop date: 10/16/19 11:41:00 CDT, 1.68, m2, 0 Sodium 2020-0 No 1,000 mL, Memori a Chloride 2-11 Rate: 100 l 0.9% IV 17:42: ml/hr, [place] 1,000 mL 00 Infuse over: 10 hr, Route: IV, Dosing Weight 68.182 kg, Total Volume: 1,000, Start date: 09/16/19 11:42: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, Duration: 30 day, Stop date: 10/16/19 11:41:00 [...] Memoria 2-11 (Same as: l 15:00: Zosyn) [place] 00 Dosing based on Piperacill in component [...] e 2-11 IV push l 15:00: reconstitu [place] 00 te with 10 ml 0.9% sodium chloride and push over 2 minutes. (Same as: Protonix) Zosyn 2020-0 No Notes: Memoria 2-11 (Same as: l 15:00: Zosyn) [place] 00 Dosing based on Piperacill in component MEDICATION WASTE Product Size: 3375 mg Product Wasted: _0__ mg pantoprazol 2020-0 No Notes: For Memoria e 2-11 IV push l 15:00: reconstitu [place] 00 te with 10 ml 0.9% sodium chloride and push over 2 minutes. (Same as: Protonix) Zosyn 0 No Notes: Memoria 2-11 (Same as: l 15:00: Zosyn) Dosing based on Piperacill in component MEDICATION WASTE Product Size: 3375 mg Product Wasted: _0__ mg Acetaminoph No Notes: Do M emoria en [...] moria 2-11 Route: l 14:00: IVPB, Drug [place] 00 form: INJ, [id number], Dosing Weight 68.182, kg, Start date: 09/16/19 8:00: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, Duration: 7 day, Stop date: 09/22/19 20:00: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, ABX Indication : Bacteremia Vancomycin 2020-0 No 1,500 mg, Me moria 2-11 Route: l 14:00: IVPB, Drug [place] 00 form: INJ, [id number], Dosing Weight 68.182, kg, Start date: 09/16/19 8:00: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, Duration: 7 day, Stop date: 09/22/19 20:00: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, ABX Indication : Bacteremia Vancomycin 2020-0 No 1,500 mg, Me moria 2-11 Route: l 14:00: IVPB, Drug [place] 00 form: INJ, [id number], Dosing Weight 68.182, kg, Start date: 09/16/19 8:00: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, Duration: 7 day, Stop date: 09/22/19 20:00: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, ABX Indication : Bacteremia Vancomycin 2020-0 No 1,500 mg, Me moria 2-11 Route: l 14:00: IVPB, Drug [place] 00 form: INJ, [id number], Dosing Weight 68.182, kg, Start date: 09/16/19 8:00: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, Duration: 7 day, Stop date: 09/22/19 20:00: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, ABX Indication : Bacteremia Vancomycin 2020-0 No 1,500 mg, Me moria 2-11 Route: l 14:00: IVPB, Drug [place] 00 form: INJ, [id number], Dosing Weight 68.182, kg, Start date: 09/16/19 8:00: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, Duration: 7 day, Stop date: 09/22/19 20:00: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, ABX Indication : Bacteremia Vancomycin 2020-0 No 1,500 mg, Me moria 2-11 Route: l 14:00: IVPB, Drug [place] 00 form: INJ, [id number], Dosing Weight 68.182, kg, Start date: 09/16/19 8:00: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, Duration: 7 day, Stop date: 09/22/19 20:00: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, ABX Indication : Bacteremia Tylenol 2020-0 No Notes: Max Hector imtiaz 2-11 acetaminop l 13:32: hen = 4000 [place] 00 mg/day (4 gm/day). (Same as: Tylenol) Tylenol 2020-0 No Notes: Max Hector imtiaz 2-11 acetaminop l 13:32: hen = 4000 [place] 00 mg/day (4 gm/day). (Same as: Tylenol) Tylenol 2020-0 No Notes: Max Hector imtiaz 2-11 acetaminop l 13:32: hen = 4000 [place] 00 mg/day (4 gm/day). (Same as: Tylenol) Tylenol 2020-0 No Notes: Max Hector imtiaz 2-11 acetaminop l 13:32: hen = 4000 [place] 00 mg/day (4 gm/day). (Same as: Tylenol) Tylenol 2020-0 No Notes: Max Hector imtiaz 2-11 acetaminop l 13:32: hen = 4000 [place] 00 mg/day (4 gm/day). (Same as: Tylenol) Tylenol 2020-0 No Notes: Max Hector imtiaz 2-11 acetaminop l 13:32: hen = 4000 [place] 00 mg/day (4 gm/day). (Same as: Tylenol) Potassium 2020-0 No 10 mEq, Memor ia Chloride 2-11 Route: l 13:00: IVPB, Q1H, [place] Dosing Weight 68.182, kg, Total Dose = 60 meq, 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, Duration: 6 doses or times, 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, Periphe ral Line Potassium 2020-0 No 10 mEq, Memor ia Chloride 2-11 Route: l 13:00: IVPB, Q1H, [place] 00 Dosing Weight 68.182, kg, Total Dose = 60 meq, 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, Duration: 6 doses or times, 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, Periphe ral Line Potassium 2020-0 No 10 mEq, Memor ia Chloride 2-11 Route: l 13:00: IVPB, Q1H, [place] Dosing Weight 68.182, kg, Total Dose = 60 meq, 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, Duration: 6 doses or times, 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, Periphe ral Line Potassium 2020-0 No 10 mEq, Memor ia Chloride 2-11 Route: l 13:00: IVPB, Q1H, [place] 00 Dosing Weight 68.182, kg, Total Dose = 60 meq, 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, Duration: 6 doses or times, 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, Periphe ral Line Potassium 2020-0 No 10 mEq, Memor ia Chloride 2-11 Route: l 13:00: IVPB, Q1H, [place] 00 Dosing Weight 68.182, kg, Total Dose = 60 meq, 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, Duration: 6 doses or times, 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, Periphe ral Line Potassium 2020-0 No 10 mEq, Memor ia Chloride 2-11 Route: l 13:00: IVPB, Q1H, Dosing Weight 68.182, kg, Total Dose = 60 meq, 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, Duration: 6 doses or times, 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, Periphe ral Line Ativan 0 No Notes: Memoria 2-11 (Same as: l 10:55: Ativan) [place] Ativan No Notes: Memoria 2-11 (Same as: l 10:55: Ativan) [place] Ativan No Notes: Memoria 2-11 (Same as: l 10:55: Ativan) [place] 00 Ativan No Notes: Memoria 2-11 (Same as: l 10:55: Ativan) [place] 00 Ativan No Notes: Memoria 2-11 (Same as: l 10:55: Ativan) [place] 00 Ativan 2020-0 No Notes: [facility]oria 2-11 (Same as: l 10:55: Ativan) [place] Benadryl 2020-0 No Notes: [facility]oria 2-11 (Same as: l 06:04: Benadryl) [place] 00 Benadryl 2019-0 No Notes: [facility]oria 2-11 (Same as: l 06:04: Benadryl) [place] Benadryl 2019-0 No Notes: [facility]oria 2-11 (Same as: l 06:04: Benadryl) [place] 00 Benadryl 2019-0 No Notes: [facility]oria 2-11 (Same as: l 06:04: Benadryl) [place] Benadryl 2019-0 No Notes: [facility]oria 2-11 (Same as: l 06:04: Benadryl) [place] 00 Benadryl 0 No Notes: [facility]oria 2-11 (Same as: l 06:04: Benadryl) [place] 00 Compazine 0 No Notes: Memori a 2-11 (Same as: l 06:03: Compazine) [place] Compazine 2019-0 No Notes: Memori a 2-11 (Same as: l 06:03: Compazine) [place] Compazine 2019-0 No Notes: Memori a 2-11 (Same as: l 06:03: Compazine) [place] Compazine 2019-0 No Notes: Memori a 2-11 (Same as: l 06:03: Compazine) [place] Compazine 2019-0 No Notes: Memori a 2-11 (Same as: l 06:03: Compazine) [place] Compazine 2019-0 No Notes: Memori a 2-11 (Same as: l 06:03: Compazine) [place] Tylenol 2020-0 No 67 kg; [facility]oria 2-11 Pediatric l 04:31: Dosing [place] 00 Tylenol 2020-0 No 67 kg; Memoria 2-11 Pediatric l 04:31: Dosing [place] 00 Tylenol 2020-0 No 67 kg; Memoria 2-11 Pediatric l 04:31: Dosing [place] 00 Tylenol 2020-0 No 67 kg; [facility]oria 2-11 Pediatric l 04:31: Dosing [place] 00 Tylenol 2020-0 No 67 kg; Memoria 2-11 Pediatric l 04:31: Dosing [place] 00 Tylenol 2019-0 No 67 kg; [facility]oria 2-11 Pediatric l 04:31: Dosing [place] 00 atorvastati No Notes: Hector imtiaz n 2-11 Same as l 03:00: Lipitor [place] Saline No Notes: [facility] Flush 0.9% 2-11 (Same as: l 03:00: BD [place] Posiflush) atorvastati No Notes: Hector imtiaz n 2-11 Same as l 03:00: Lipitor [place] Saline No Notes: [facility] Flush 0.9% 2-11 (Same as: l 03:00: BD [place] Posiflush) atorvastati No Notes: Hector imtiaz n 2-11 Same as l 03:00: Lipitor [place] Saline No Notes: [facility] Flush 0.9% 2-11 (Same as: l 03:00: BD [place] Posiflush) atorvastati No Notes: Ehctor imtiaz n 2-11 Same as l 03:00: Lipitor [place] Saline No Notes: [facility] Flush 0.9% 2-11 (Same as: l 03:00: BD [place] Posiflush) atorvastati No Notes: Hector imtiaz n 2-11 Same as l 03:00: Lipitor [place] Saline No Notes: [facility] Flush 0.9% 2-11 (Same as: l 03:00: BD [place] Posiflush) atorvastati No Notes: Hector mitiaz n 2-11 Same as l 03:00: Lipitor [place] Saline No Notes: [facility] Flush 0.9% 2-11 (Same as: l 03:00: BD [place] Posiflush) potassium 2019- Yes 10 mEq = 1 Me moria chloride 10 2-11 cap, PO, l mEq oral 01:13: BID, 0 [place] capsule, 00 Refill(s) extended release diazepam 5 No 5 mg = 1 Mem oria mg oral 2-11 tab, PO, l tablet 01:13: TID, 0 [place] 00 Refill(s) valsartan 2020-0 Yes 320 mg = 1 Me moria 320 mg oral 2-11 tab, PO, l tablet 01:13: Daily, 0 [place] 00 Refill(s) Hydrochloro 2020-0 No 25 mg [...] PO, l mEq oral 01:13: BID, 0 [place] capsule, 00 Refill(s) extended release diazepam 5 [...] PO, l mEq oral 01:13: BID, 0 [place] capsule, 00 Refill(s) extended release diazepam 5 2020-0 No 5 mg = 1 Mem oria mg oral 2-11 tab, PO, l tablet 01:13: TID, 0 [place] 00 Refill(s) valsartan 2020-0 Yes 320 mg = 1 Me moria 320 mg oral 2-11 tab, PO, l tablet 01:13: Daily, 0 [place] 00 Refill(s) Hydrochloro 2020-0 No 25 mg [...] tab, PO, l tablet 01:13: TID, 0 [place] 00 Refill(s) valsartan 2020-0 Yes 320 mg [...] Her ortez tablet, 00 Refill(s) extended release valsartan 2020-0 Yes 320 mg = 1 Me moria 320 mg oral 2-11 tab, PO, l tablet 01:13: Daily, 0 [place] 00 Refill(s) Hydrochloro 2020-0 No 25 mg [...] PO, l mEq oral 01:13: BID, 0 [place] capsule, 00 Refill(s) extended release diazepam 5 2020-0 No 5 mg = 1 Mem oria mg oral 2-11 tab, PO, l tablet 01:13: TID, 0 [place] 00 Refill(s) valsartan 2020-0 Yes 320 mg = 1 Me moria 320 mg oral 2-11 tab, PO, l tablet 01:13: Daily, 0 [place] 00 Refill(s) Hydrochloro 2020-0 No 25 mg [...] tab, PO, l tablet 01:13: TID, 0 [place] 00 Refill(s) potassium 2020-0 No Notes: Memori [...] s with feeding tube less than 14 [place] (Dobhoff, J-tube etc) and pediatric and patients. Magnesium 2020-0 No Notes: Memori a Sulfate 2-10 WASTE: F/P l 21:55: - Sink; E [place] 00 - Municipal Trash Bin potassium 2020-0 [...] s with feeding tube less than 14 [place] (Dobhoff, J-tube etc) and pediatric and patients. [...] s with feeding tube less than 14 [place] (Dobhoff, J-tube etc) and pediatric and patients. Magnesium 2020-0 No Notes: Memori a Sulfate 2-10 WASTE: F/P l 21:55: - Sink; E [place] 00 - Municipal Trash Bin potassium 2020-0 [...] s with feeding tube less than 14 [place] (Dobhoff, J-tube etc) and pediatric and patients. [...] s with feeding tube less than 14 [place] (Dobhoff, J-tube etc) and pediatric and patients. [...] s with feeding tube less than 14 [place] (Dobhoff, J-tube etc) and pediatric and patients. Magnesium 2020-0 No Notes: Memori a Sulfate 2-10 WASTE: F/P l 21:55: - Sink; E [place] - Municipal Trash Bin Ex-Lax Milk 2019-0 No Notes: Hector imtiaz of Magnesia 2-10 (Same as: l 20:34: Milk of [place] 00 Magnesia, MOM) Ex-Lax Milk 2019-0 No Notes: Hector imtiaz of [place] 2-10 (Same as: l 20:34: Milk of [place] 00 Magnesia, MOM) Ex-Lax Milk 2019-0 No Notes: Hector imtiaz of [place] 2-10 (Same as: l 20:34: Milk of [place] 00 Magnesia, MOM) Ex-Lax Milk 2020-0 No Notes: Hector imtiaz of Magnesia 2-10 (Same as: l 20:34: Milk of [place] 00 Magncarmine, MOM) Ex-Lax Milk 2020-0 No Notes: Hector imtiaz of Magnesia 2-10 (Same as: l 20:34: Milk of [place] Magncarmine, MOM) Ex-Lax Milk 2020-0 No Notes: Hector imtiaz of Magnes[place] 2-10 (Same as: l 20:34: Milk of [place] Magncarmine, MOM) Labetalol 2020-0 No 105 mmHg, Me moria 2-10 Start l 19:54: date: 09/15/19 13:54: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, Duration: 30 day, Stop date: 10/15/19 14:53:00 CDT, 0 Saline 2020-0 No Notes: [facility] Flush 0.9% 2-10 (Same as: l 19:54: BD [place] Posiflush) Labetalol 2020-0 No 105 mmHg, Me moria 2-10 Start l 19:54: date: 09/15/19 13:54: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, Duration: 30 day, Stop date: 10/15/19 14:53:00 CDT, 0 Saline 2020-0 No Notes: [facility] Flush 0.9% 2-10 (Same as: l 19:54: BD [place] Posiflush) Labetalol 2020-0 No 105 mmHg, Me moria 2-10 Start l 19:54: date: 09/15/19 13:54: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, Duration: 30 day, Stop date: 10/15/19 14:53:00 CDT, 0 Saline 2020-0 No Notes: [facility] Flush 0.9% 2-10 (Same as: l 19:54: BD [place] 00 Posiflush) Labetalol 2020-0 No 105 mmHg, Me moria 2-10 Start l 19:54: date: 09/15/19 13:54: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, Duration: 30 day, Stop date: 10/15/19 14:53:00 CDT, 0 Saline 2020-0 No Notes: [facility] Flush 0.9% 2-10 (Same as: l 19:54: BD [place] 00 Posiflush) Labetalol 2020-0 No 105 mmHg, Me moria 2-10 Start l 19:54: date: [place] 09/15/19 13:54: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, Duration: 30 day, Stop date: 10/15/19 14:53:00 CDT, 0 Saline 2020-0 No Notes: [facility] Flush 0.9% 2-10 (Same as: l 19:54: BD [place] Posiflush) Labetalol 2020-0 No 105 mmHg, Me moria 2-10 Start l 19:54: date: [place] 09/15/19 13:54: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, Duration: 30 day, Stop date: 10/15/19 14:53:00 CDT, 0 Saline 2020-0 No Notes: [facility] Flush 0.9% 2-10 (Same as: l 19:54: BD [place] 00 Posiflush) Labetalol 2020-0 No 10 mg, Memori a 2-10 Route: l 18:46: IVP, Drug [place] 00 form: INJ, ONCE, Dosing Weight 68.182, kg, Priority: STAT, Start date: 09/15/19 12:46: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, Stop date: 09/15/19 12:46: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 Labetalol 2020-0 No 10 mg, Memori a 2-10 Route: l 18:46: IVP, Drug [place] 00 form: INJ, ONCE, Dosing Weight 68.182, kg, Priority: STAT, Start date: 09/15/19 12:46: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, Stop date: 09/15/19 12:46: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 Labetalol 2020-0 No 10 mg, Memori a 2-10 Route: l 18:46: IVP, Drug [place] 00 form: INJ, ONCE, Dosing Weight 68.182, kg, Priority: STAT, Start date: 09/15/19 12:46: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, Stop date: 09/15/19 12:46: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 Labetalol 2020-0 No 10 mg, Memori a 2-10 Route: l 18:46: IVP, Drug [place] 00 form: INJ, ONCE, Dosing Weight 68.182, kg, Priority: STAT, Start date: 09/15/19 12:46: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, Stop date: 09/15/19 12:46: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 Labetalol 2020-0 No 10 mg, Memori a 2-10 Route: l 18:46: IVP, Drug [place] 00 form: INJ, ONCE, Dosing Weight 68.182, kg, Priority: STAT, Start date: 09/15/19 12:46: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, Stop date: 09/15/19 12:46: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 Labetalol 2020-0 No 10 mg, Memori a 2-10 Route: l 18:46: IVP, Drug [place] 00 form: INJ, ONCE, Dosing Weight 68.182, kg, Priority: STAT, Start date: 09/15/19 12:46: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, Stop date: 09/15/19 12:45: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 Sodium 2020-0 No 1,000 mL, Memori a Chloride 2-10 Rate: 50 l 0.9% IV 18:45: ml/hr, [place] 1,000 mL 00 Infuse over: 20 hr, Route: IV, Dosing Weight 68.182 kg, Total Volume: 1,000, Priority: STAT, Start date: 09/15/19 12:45: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 Sodium 2020-0 No 1,000 mL, Memori a Chloride 2-10 Rate: 50 l 0.9% IV 18:45: ml/hr, [place] 1,000 mL 00 Infuse over: 20 hr, Route: IV, Dosing Weight 68.182 kg, Total Volume: 1,000, Priority: STAT, Start date: 09/15/19 12:45:00 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 Iohexol 2020-0 No 60 mL, Memoria 2-10 Route: l 18:18: IVP, Drug Form: SOLN, kg, ONCALL, STAT, Start date: 09/15/19 12:18:00 [employer] CERTIFIED POWERPLANT MECHANIC, Duration: 1 doses or times, Dose = 2.2ml/kg, Max dose = 100ml -- "To be infused by Radiology Staff ONLY" Iohexol 2020-0 No 60 mL, Memoria 2-10 Route: l 18:18: IVP, Drug [place] 00 Form: SOLN, kg, ONCALL, STAT, Start date: 09/15/19 12:18:00 [employer] CERTIFIED POWERPLANT MECHANIC, Duration: 1 doses or times, Dose = 2.2ml/kg, Max dose = 100ml -- "To be infused by Radiology Staff ONLY" Iohexol 2020-0 No 60 mL, Memoria 2-10 Route: l 18:18: IVP, Drug [place] 00 Form: SOLN, kg, ONCALL, STAT, Start date: 09/15/19 12:18:00 [employer] CERTIFIED POWERPLANT MECHANIC, Duration: 1 doses or times, Dose = 2.2ml/kg, Max dose = 100ml -- "To be infused by Radiology Staff ONLY" Iohexol 2020-0 No 60 mL, Memoria 2-10 Route: l 18:18: IVP, Drug [place] 00 Form: SOLN, kg, ONCALL, STAT, Start date: 09/15/19 12:18:00 [employer] CERTIFIED POWERPLANT MECHANIC, Duration: 1 doses or times, Dose = 2.2ml/kg, Max dose = 100ml -- "To be infused by Radiology Staff ONLY" Iohexol 2020-0 No 60 mL, Memoria 2-10 Route: l 18:18: IVP, Drug [place] 00 Form: SOLN, kg, ONCALL, STAT, Start date: 09/15/19 12:18:00 [employer] CERTIFIED POWERPLANT MECHANIC, Duration: 1 doses or times, Dose = 2.2ml/kg, Max dose = 100ml -- "To be infused by Radiology Staff ONLY" Iohexol 2020-0 No 60 mL, Memoria 2-10 Route: l 18:18: IVP, Drug [place] 00 Form: SOLN, kg, ONCALL, STAT, Start date: 09/15/19 12:18:00 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, Duration: 1 doses or times, Dose = [...] 2-10 Same as: l 18:11: Cardene [place] Concentrat ion: (0.2 mg /1 ml ) Nicardipine 2019-0 No Notes: Hector imtiaz 2-10 Same as: l 18:11: Cardene [place] Concentrat ion: (0.2 mg /1 ml ) Nicardipine 2019-0 No Notes: Hector imtiaz 2-10 Same as: l 18:11: Cardene [place] 00 Concentrat ion: (0.2 mg /1 ml ) Nicardipine 2019-0 No Notes: [place]ector imtiaz 2-10 Same as: l 18:11: Cardene [place] 00 Concentrat ion: (0.2 mg /1 ml ) Saline 2019-0 No Notes: Memoria Flush 0.9% 2-10 Same as: l 17:53: BD [place] Posiflush Sterile Saline 2019-0 No Notes: Memoria Flush 0.9% 2-10 Same as: l 17:53: BD [place] Posiflush Sterile Saline 2019-0 No Notes: Memoria Flush 0.9% 2-10 Same as: l 17:53: BD [place] Posiflush Sterile Saline 2019-0 No Notes: Memoria Flush 0.9% 2-10 Same as: l 17:53: BD [place] 00 Posiflush Sterile Saline 2019-0 No Notes: [facility] Flush 0.9% 2-10 Same as: l 17:53: BD [place] Posiflush Sterile Saline 2019-0 No Notes: Memoria Flush 0.9% 2-10 Same as: l 17:53: BD [place] Posiflush Sterile Bupivicaine Bupivicaine 2019-0 No 5mL [facility] [place] 1-27 [facility]: - [facility] Kenalog Kenalog 2019-0 No 1mL Common (Triamcinol (Triamcinol 1-27 S pirit one) one) 00:00: - [facility] 00 [facility] Bupivicaine Bupivicaine 2020-0 No 5mL [facility] [place] -27 [facility] 00:00: - [facility] Kenalog Kenalog 2020-0 No 1mL Common (Triamcinol (Triamcinol 1-27 S pirit one) one) 00:00: - [facility] Losartan Losartan Yes Mumtaz not Comm on Potassium Potassium Trivedi defined Sp maurice [facility] Labetalol Labetalol Yes Mumtaz not Co mmon HCl HCl Trivedi defined [facility] Benzonatate Benzonatate Yes Mumtaz not Common Trivedi defined [facility] Hydrochloro Hydrochloro Yes Mumtaz not Common thiazide thiazide Trivedi defined [facility] Baclofen Baclofen Yes Mumtaz not Comm on Trivedi defined [facility] Diltiazem Diltiazem Yes Mumtaz not Co mmon HCl HCl Trivedi defined [facility] Biofreeze Biofreeze Yes Mumtaz not Co mmon Trivedi defined [facility] Potassium Potassium Yes Mum[facility]z not Co mmon Chloride Chloride Trivedi defined Spir it Ermelinda ER Ermelinda ER [facility] Omeprazole Omeprazole Yes Mum[facility]z not Common Trivedi defined [facility] Eliquis Eliquis Yes Mumtaz not Common Trivedi defined [facility] Diazepam Diazepam Yes [facility]z not Comm on Trivedi defined [facility] HydrALAZINE HydrALAZINE Yes Mum[facility]z not Common HCl HCl Trivedi defined [facility] Gabapentin Gabapentin Yes Mum[facility]z not Common Trivedi defined [facility] Furosemide Furosemide Yes Mumtaz not Common Trivedi defined [facility] Acetaminoph Acetaminoph Yes Mumtaz not Common en en Trivedi defined [facility] Aspercreme Aspercreme Yes Mumtaz not Common Trivedi defined [facility] Diltiazem Diltiazem Yes Mumtaz not Co mmon HCl ER HCl ER Trivedi defined [facility] Beads Beads [facility] hydroCHLORO hydroCHLORO No hydroCHLOR thiazide [...] Mumtaz not Common Diskus Diskus Trivedi defined [facility] potassium potassium Yes Mumtaz not Co mmon Trivedi defined [facility] Valsartan Valsartan Yes Mumtaz not Co mmon Trivedi defined [facility] Vital Signs Vital Name Observation Time Observation Value Comments Source height 2022-03-17 09:00:00 59 [in_i] [facility] weight 2022-03-17 09:00:00 159 [lb_av] [facility] temperature 2022-03-17 09:00:00 97.2 [degF] [facility] bmi 2022-03-17 09:00:00 32.11 kg/m2 [facility] blood pressure 2022-03-17 09:00:00 132 mm[Hg] [facility] - systolic [facility] blood pressure 2022-03-17 09:00:00 84 mm[Hg] [facility] - diastolic [facility] height 2021-08-23 10:30:00 59 [in_i] [facility] weight 2021-08-23 10:30:00 159 [lb_av] [facility] temperature 2021-08-23 10:30:00 98.0 [degF] [facility] bmi 2021-08-23 10:30:00 32.11 kg/m2 [facility] blood pressure 2021-08-23 10:30:00 144 mm[Hg] [facility] - systolic [facility] blood pressure 2021-08-23 10:30:00 86 mm[Hg] [facility] - diastolic [facility] Systolic (mm Hg) 2022-09-21 15:34:00 [facility] [place] Diastolic (mm Hg) 2022-09-21 15:34:00 [facility] [place] [facility] Rate 2022-09-21 15:34:00 [facility] [place] Systolic (mm Hg) 2021-09-01 15:05:00 [facility] [place] Diastolic (mm Hg) 2021-09-01 15:05:00 [facility] [place] Heart Rate 2021-09-01 15:05:00 [facility] [place] Respitory Rate 2021-09-01 15:05:00 [facility] [place] Systolic (mm Hg) 2020-10-14 15:15:00 [facility] [place] Diastolic (mm Hg) 2020-10-14 15:15:00 [facility] [place] Heart Rate 2020-10-14 15:15:00 [facility] [place] Respitory Rate 2020-10-14 15:15:00 [facility] [place] Weight 2020-10-14 15:15:00 [facility] [place] Systolic (mm Hg) 2020-09-23 16:25:00 [facility] [place] Diastolic (mm Hg) 2020-09-23 16:25:00 [facility] [place] Heart Rate 2020-09-23 16:25:00 [facility] [place] Respitory Rate 2020-09-23 16:25:00 [facility] [place] Height 2020-09-23 16:25:00 149.86 cm [facility] [place] Weight 2020-09-23 16:25:00 [facility] [place] BMI Calculated 2020-09-23 16:25:00 [facility] [place] Systolic (mm Hg) 2020-08-03 21:57:00 [facility] [place] Diastolic (mm Hg) 2020-08-03 21:57:00 [facility] [place] Heart Rate 2020-08-03 21:57:00 [facility] [place] Respitory Rate 2020-08-03 21:57:00 [facility] [place] Height 2020-08-03 21:57:00 149.86 cm [facility] [place] Weight 2020-08-03 21:57:00 [facility] [place] BMI Calculated 2020-08-03 21:57:00 [facility] [place] Systolic (mm Hg) 2020-06-17 15:10:00 [facility] [place] Diastolic (mm Hg) 2020-06-17 15:10:00 [facility] [place] Heart Rate 2020-06-17 15:10:00 [facility] [place] Height 2020-06-17 15:10:00 149.86 cm [facility] [place] Weight 2020-06-17 15:10:00 [facility] [place] BMI Calculated 2020-06-17 15:10:00 [facility] [place] Temperature Oral (F) 2019-09-26 19:34:00 98.3 F [facility] [place] Heart Rate 2019-09-26 19:34:00 [facility] Respitory Rate 2019-09-26 19:34:00 [facility] [place] Systolic (mm Hg) 2019-09-26 19:34:00 Hector [facility] [place] Diastolic (mm Hg) 2019-09-26 19:34:00 [facility] [place] Temperature Oral (F) 2019-09-26 15:11:00 98.7 F [facility] Heart Rate 2019-09-26 15:11:00 [facility] [place] Respitory Rate 2019-09-26 15:11:00 [facility] [place] Systolic (mm Hg) 2019-09-26 15:11:00 [facility] [place] Diastolic (mm Hg) 2019-09-26 15:11:00 [facility] [place] Temperature Oral (F) 2019-09-26 09:25:00 98.3 F [facility] [place] Heart Rate 2019-09-26 09:25:00 [facility] Respitory Rate 2019-09-26 09:25:00 [facility] [place] Systolic (mm Hg) 2019-09-26 09:25:00 [facility] [place] Diastolic (mm Hg) 2019-09-26 09:25:00 [facility] [place] Height 2019-09-16 14:57:00 142.24 cm [facility] Weight 2019-09-16 14:57:00 [facility] Height 2019-09-15 18:20:00 142.24 cm [facility] BMI Calculated 2019-09-15 18:20:00 [facility] [place] Weight 2019-09-15 18:20:00 [facility] [place] Procedures Procedure Date / Time Performing Clinician Source Performed Chemodenervation of one 2022-08-17 16:14:00 [facility] [place] extremity; 1-4 muscle(s) Chemodenervation of one 2022-05-26 00:10:00 [facility] [place] extremity; 1-4 muscle(s) Thrombolysis, cerebral, by 2019-09-15 19:45:00 [facility] [place] intravenous infusion Plan of Care Planned Activity Planned Date Details Comments Source Future Scheduled 2022-10-04 COVID-19 VACCINE (#1) [facility] Test 14:07:52 [code = COVID-19 VACCINE (#1)] Future Scheduled 2022-10-04 SHINGLES VACCINES (1 Met [facility] Test 14:07:52 of 2) [code = SHINGLES VACCINES (1 of 2)] Future Scheduled 2022-10-04 65+ [facility]AL [facility] 14:07:52 VACCINE (1 - PCV) [code = 65+ PNEUMOCOCCAL VACCINE (1 - PCV)] Future Scheduled 2022-10-04 INFLUENZA VACCINE Method [facility] Test 14:07:52 [code = INFLUENZA VACCINE] Future Scheduled 2022-07-20 65+ [facility]OCOCCAL [facility] Test 19:44:22 VACCINE (1 - PCV) [code = 65+ PNEUMOCOCCAL VACCINE (1 - PCV)] Future Scheduled 2022-07-20 INFLUENZA VACCINE Method [facility] Test 19:44:22 [code = INFLUENZA VACCINE] Future Scheduled 2022-07-20 COVID-19 VACCINE (#1) [facility] Test 19:44:22 [code = COVID-19 VACCINE (#1)] Future Scheduled 2022-07-20 SHINGLES VACCINES (1 Met [facility] Test 19:44:22 of 2) [code = SHINGLES VACCINES (1 of 2)] Future Scheduled 2022-06-09 HEPATITIS B VACCINES Met [facility] Test 02:50:07 (1 of 3 - 3-dose series) [code = HEPATITIS B VACCINES (1 of 3 - 3-dose series)] Future Scheduled 2022-06-09 COVID-19 VACCINE (#1) [facility] Test 02:50:07 [code = COVID-19 VACCINE (#1)] Future Scheduled 2022-06-09 SHINGLES VACCINES (1 Met [facility] Test 02:50:07 of 2) [code = SHINGLES VACCINES (1 of 2)] Future Scheduled 2022-06-09 65+ [facility]OCOCCAL [facility] Test 02:50:07 VACCINE (1 - PCV) [code = 65+ PNEUMOCOCCAL VACCINE (1 - PCV)] Future Scheduled 2022-06-09 INFLUENZA VACCINE Method [facility] Test 02:50:07 [code = INFLUENZA VACCINE] Encounters Start End Encounter Admission Attending Care Care Encounter Source Date/Time Date/Time Type Type Clinicians Facility Department ID 2022-03-21 Outpatient STLMLC STLMLC [id number] Common 16:42:01 [facility] 2022-03-16 Outpatient STLMLC STLMLC [id number] Common 14:43:00 [facility] 2022-03-15 Outpatient STLMLC STLMLC [id number] Common 13:47:01 [facility] 2021-12-01 Outpatient [facility] [id number] PA 15:23:41 [id number] Health 2021-09-01 Outpatient 3 [id number] E[facility] CVA [id number] [facility] 12:36:39 [facility] [place] 2021-09-01 Outpatient 3 [id number] ENCPL REF [id number] [facility] 12:35:16 0727 [facility] [place] 2021-09-01 Outpatient 3 [id number] ENCPL YODTI [id number] [facility] 11:51:13 0330 [facility] [place] 2021-09-01 Outpatient 3 [id number] ENCPL REF [id number] [facility] 11:45:49 0316 [facility] [place] 2021-09-01 Outpatient 3 [id number] ENCPL OTH [id number] [facility] 09:13:32 0218 [facility] [place] 2021-09-01 Outpatient 3 [id number] ENCPL REF [id number] [facility] 09:12:29 0214 [facility] [place] 2021-08-31 Outpatient STLMLC STLMLC [id number] Common 13:25:14 [id number] [facility] 2021-08-31 Outpatient STLMLC STLMLC [id number] Common 13:24:49 [id number] [facility] 2021-08-31 Outpatient STLMLC STLMLC [id number] Common 12:43:02 [id number] [facility] 2021-08-31 Outpatient STLMLC STLMLC [id number] Common 12:13:01 [id number] [facility] 2021-08-31 Outpatient STLMLC STLMLC [id number] Common 11:31:48 [id number] [facility] 2021-08-31 [facility] [id number] Common 11:03:31 [id number] [facility] 2022-11-30 2022-11-30 Outpatient MHIE MHIE [id number] Memoria 09:30:00 09:30:00 16 [place] 2022-11-30 2022-11-30 Outpatient MHIE MHIE [id number] Memoria 09:30:00 09:30:00 16 [place] 2022-11-14 2022-11-14 Outpatient MHIE MHIE [id number] Memoria 10:45:00 10:45:00 13 owen [place] 2022-11-14 2022-11-14 Outpatient MHIE MHIE [id number] Memoria 10:45:00 10:45:00 13 [place] 2022-11-14 2022-11-14 Outpatient MHIE MHIE [id number] Memoria 10:45:00 10:45:00 13 [place] 2022-09-28 2022-09-28 Ambulatory MHIE MNA [id number] Memoria 16:30:00 16:30:00 Pre-Reg Neurology 12 l Paulo [place] 2022-09-28 2022-09-28 Ambulatory MHIE MNA [id number] Memoria 16:30:00 16:30:00 Pre-Reg Neurology 12 l Paulo Reddingann 2022-09-28 2022-09-28 Outpatient MHIE MHIE [id number] Memoria 10:30:00 10:30:00 12 [place] 2022-09-28 2022-09-28 Outpatient MHIE MHIE [id number] Memoria 10:30:00 10:30:00 12 [place] 2022-09-28 2022-09-28 Outpatient MHIE MHIE [id number] Memoria 10:30:00 10:30:00 12 [place] 2022-09-28 2022-09-28 Outpatient LANDRY FontanaSCHCEASAR [id number] 10:30:00 10:30:[address] [place] [address] 2022-09-28 2022-09-28 Outpatient LANDRY FontanaMISCHER [id number] 10:30:00 10:30:00 Yaniv 12 [place] 2022-09-21 2022-09-22 Outpatient MHIE MNA [id number] Memoria 15:30:00 05:59:59 Neurology 14 owen Reddingann 2022-09-21 2022-09-22 Outpatient MHIE MNA [id number] Memoria 15:30:00 05:59:59 Neurology 14 owen Bates [facility] 2022-09-21 2022-09-21 [facility] [id number] 09:30:00 23:59:59 Yaniv 14 [place] 2022-09-21 2022-09-21 [facility] [id number] 09:30:00 23:59:59 Yaniv 14 [place] 2022-09-21 2022-09-21 Outpatient MHIE MHIE [id number] Memoria 09:30:00 09:30:00 14 owen Ottoniel 2022-09-21 2022-09-21 Outpatient MHIE MHIE [id number] Memoria 09:30:00 09:30:00 14 owen ReddingOttoniel 2022-09-21 2022-09-21 Outpatient MHIE MHIE [id number] Memoria 09:30:00 09:30:00 14 owen Ot[place] 2022-09-07 2022-09-07 Outpatient MHIE MHIE [id number] Memoria 16:15:00 16:15:00 15 owen [place] 2022-09-07 2022-09-07 Outpatient MHIE MHIE [id number] Memoria 16:15:00 16:15:00 15 owen [place] 2022-09-07 2022-09-07 Outpatient MHIE MHIE [id number] Memoria 16:15:00 16:15:00 15 owen [place] 2022-08-17 2022-08-18 Outpatient MHIE MNA [id number] Memoria 15:30:00 05:59:59 Neurology 10 owen Bates [place] 2022-08-17 2022-08-18 Outpatient MHIE MNA [id number] Memoria 15:30:00 05:59:59 Neurology 10 owen Nez Perce [facility] 2022-08-17 2022-08-18 Outpatient MHIE MNA [id number] Memoria 15:30:00 05:59:59 Neurology 10 owen Alcazar 2022-08-17 2022-08-17 Outpatient SAMUEL FontanaSCHER MISCHER [id number] 09:30:00 23:59:59 Yaniv 10 [place] 2022-08-17 2022-08-17 Outpatient RUSSELL FontanaWISCHER MISCHER [id number] 09:30:00 23:59:59 Yaniv 10 [place] 2022-08-17 2022-08-17 Outpatient MHIE MHIE [id number] Memoria 09:30:00 09:30:00 10 owen Alcazar 2022-08-17 2022-08-17 Outpatient MHIE MHIE [id number] Memoria 09:30:00 09:30:00 10 owen Alcazar 2022-08-03 2022-08-03 Outpatient MHIE MHIE [id number] Memoria 16:00:00 16:00:00 11 owen Alcazar 2022-08-03 2022-08-03 Outpatient MHIE MHIE [id number] Memoria 16:00:00 16:00:00 11 owen Alcazar 2022-08-03 2022-08-03 Outpatient MHIE MHIE [id number] Memoria 16:00:00 16:00:00 11 owen Alcazar 2022-05-25 2022-05-26 Outpatient nullFlavo MNA [id number] Memoria 14:00:00 04:59:59 r Neurology 09 owen Alcazar 2022-05-25 2022-05-26 Outpatient nullFlavo MNA [id number] Memoria 14:00:00 04:59:59 r Neurology 09 l Paulo Alcazar 2022-05-25 2022-05-26 Outpatient nullFlavo MNA [id number] Memoria 14:00:00 04:59:59 r Neurology 09 owen Alcazar 2022-05-25 2022-05-25 Outpatient RUSSELL FontanaWISCHER MHMISCHER [id number] 09:00:00 23:59:59 Yaniv 09 [place] 2022-05-25 2022-05-25 Outpatient RUSSELL FontanaWISCHER MISCHER [id number] 09:00:00 23:59:59 Yaniv 09 [place] 2022-05-25 2022-05-25 Outpatient MHIE MHIE [id number] Memoria 09:00:00 09:00:00 09 owen Alcazar 2022-05-25 2022-05-25 Outpatient MHIE MHIE [id number] Memoria 09:00:00 09:00:00 09 owen Alcazar 2022-03-30 2022-03-30 Ambulatory nullFlavo MNA [id number] Memoria 16:15:00 16:15:00 Pre-Reg r Neurology 08 owen Alcazar 2022-03-30 2022-03-30 Ambulatory nullFlavo MNA [id number] Memoria 16:15:00 16:15:00 Pre-Reg r Neurology 08 owen Alcazar 2022-03-30 2022-03-30 Ambulatory nullFlavo MNA [id number] Memoria 16:15:00 16:15:00 Pre-Reg r Neurology 08 owen Alcazar 2022-03-30 2022-03-30 Outpatient MHIE MHIE [id number] Memoria 11:15:00 11:15:00 08 owen Alcazar 2022-03-30 2022-03-30 Outpatient MHIE MHIE [id number] Memoria 11:15:00 11:15:00 08 owen Alcazar 2022-03-30 2022-03-30 Outpatient RUSSELL FontanaWISCHER MHMISCHER [id number] 11:15:00 11:15:00 Yaniv 08 [place] 2022-03-30 2022-03-30 Outpatient RUSSELL FontanaWISCHER MISCHER [id number] 11:15:00 11:15:00 Yaniv 08 [place] 2022-03-28 2022-03-28 [id number] Co mmon 00:00:00 00:00:00 [facility] 2022-03-17 2022-03-17 OFFICE STLC STLC [id number] Co mmon 00:00:00 00:00:00 VISIT [facility] ESTAB PT - [facility] LEVEL 4 [facility] 2022-02-27 2022-02-28 Outpatient nullFlavo MNA [id number] Memoria 15:00:00 04:59:59 r Neurology 07 l Paulo Alcazar 2022-02-27 2022-02-28 Outpatient nullFlavo MNA [id number] Memoria 15:00:00 04:59:59 r Neurology 07 l Paulo Alcazar 2022-02-27 2022-02-28 Outpatient nullFlavo MNA [id number] Memoria 15:00:00 04:59:59 r Neurology 07 l Paulo Alcazar 2022-02-27 2022-02-27 Outpatient SAMUEL FontanaSCHER MISCHER [id number] 10:00:00 23:59:59 Yaniv 07 [place] 2022-02-27 2022-02-27 Outpatient SAMUEL FontanaSCHER MISCHER [id number] 10:00:00 23:59:59 Yaniv 07 [place] 2022-02-27 2022-02-27 Outpatient MHIE MHIE [id number] Memoria 10:00:00 10:00:00 07 owen Alcazar 2022-02-27 2022-02-27 Outpatient MHIE MHIE [id number] Memoria 10:00:00 10:00:00 07 owen Alcazar 2021-12-08 2021-12-09 Outpatient nullFlavo MNA [id number] Memoria 14:45:00 04:59:59 r Neurology 06 l Paulo Alcazar 2021-12-08 2021-12-09 Outpatient nullFlavo MNA [id number] Memoria 14:45:00 04:59:59 r Neurology 06 l Paulo Alcazar 2021-12-08 2021-12-09 Outpatient nullFlavo MNA [id number] Memoria 14:45:00 04:59:59 r Neurology 06 l Paulo Alcazar 2021-12-08 2021-12-08 Outpatient SAMUEL FontanaSCHER MISCHER [id number] 09:45:00 23:59:59 Yaniv 06 [place] 2021-12-08 2021-12-08 Outpatient SAMUEL FontanaSCHER MISCHER [id number] 09:45:00 23:59:59 Yaniv 06 [place] 2021-12-08 2021-12-08 Outpatient MHIE MHIE [id number] Memoria 09:45:00 09:45:00 06 owen Alcazar 2021-12-08 2021-12-08 Outpatient MHIE MHIE [id number] Memoria 09:45:00 09:45:00 06 owen Alcazar 2021-10-27 2021-10-28 Outpatient nullFlavo MNA [id number] Memoria 14:30:00 04:59:59 r Neurology 05 owen Alcazar 2021-10-27 2021-10-28 Outpatient nullFlavo MNA [id number] Memoria 14:30:00 04:59:59 r Neurology 05 owen Alcazar 2021-10-27 2021-10-28 Outpatient nullFlavo MNA [id number] Memoria 14:30:00 04:59:59 r Neurology 05 owen Alcazar 2021-10-27 2021-10-27 Outpatient [facility]CEASAR [facility] [id number] 09:30:00 23:59:59 Yaniv Carol Jackman 2021-10-27 2021-10-27 Outpatient RUSSELL FontanaWIMARLENY MISCHER [id number] 09:30:00 23:59:59 Yaniv Carol Jackman 2021-10-27 2021-10-27 Outpatient MHIE MHIE [id number] Memoria 09:30:00 09:30:00 05 o[place] 2021-10-27 2021-10-27 Outpatient MHIE MHIE [id number] Memoria 09:30:00 09:30:00 05 owen Ottoniel 2021-09-01 2021-09-02 Outpatient nullFlavo MNA [id number] Memoria 15:00:00 05:59:59 r Neurology 04 owen Alcazar 2021-09-01 2021-09-02 Outpatient nullFlavo MNA [id number] Memoria 15:00:00 05:59:59 r Neurology 04 owen Alcazar 2021-09-01 2021-09-02 Outpatient nullFlavo MNA [id number] Memoria 15:00:00 05:59:59 r Neurology 04 owen Alcazar 2021-09-01 2021-09-01 Outpatient RUSSELL FontanaWISCHCEASAR MISCHER [id number] 09:00:00 23:59:59 Yaniv Renny Jackman 2021-09-01 2021-09-01 Outpatient [place] [id number] 09:00:00 23:59:59 Yaniv Renny Jackman 2021-09-01 2021-09-01 Outpatient MHIE MHIE [id number] Memoria 09:00:00 09:00:00 04 owen Alcazar 2021-09-01 2021-09-01 Outpatient MHIE MHIE [id number] Memoria 09:00:00 09:00:00 04 owen Alcazar 2021-08-23 2021-08-[address] [facility] [id number] Co mmon 00:00:00 00:00:00 VISIT [facility] ESTAB PT - [facility] LEVEL 4 [facility] 2021-05-18 2021-05-20 Outside nullFlavo MNA [id number] Memoria 13:14:38 04:59:59 Medical r Neurology 05 l Records Paulo Alcazar 2021-05-18 2021-05-20 Outside nullFlavo MNA [id number] Memoria 13:14:38 04:59:59 Medical r Neurology 05 l Records Paulo Alcazar 2021-05-18 2021-05-20 Outside nullFlavo MNA [id number] Memoria 13:14:38 04:59:59 Medical r Neurology 05 l Records Paulo Alcazar 2021-05-18 2021-05-19 Outpatient [facility] [id number] 08:14:38 23:59:59 05 2021-05-18 2021-05-19 Outpatient MISCHER MISCHER [id number] 08:14:38 23:59:59 05 2021-03-01 2021-03-03 Outside nullFlavo MNA [id number] Memoria 13:37:14 04:59:59 Medical r Neurology 04 l Records Paulo Alcazar 2021-03-01 2021-03-03 Outside nullFlavo MNA [id number] Memoria 13:37:14 04:59:59 Medical r Neurology 04 l Records Paulo Alcazar 2021-03-01 2021-03-03 Outside nullFlavo MNA [id number] Memoria 13:37:14 04:59:59 Medical r Neurology 04 l Records Paulo Alcazar 2021-03-01 2021-03-02 Outpatient MHMISCHER MHMISCHER [id number] 08:37:14 23:59:59 04 2021-03-01 2021-03-02 Outpatient MHMISCHER MHMISCHER [id number] 08:37:14 23:59:59 04 2021-02-15 2021-02-[address] [facility] [id number] Common 00:00:00 00:00:00 [facility] 2020-11-30 2020-12-02 Outside nullFlavo MNA [id number] Memoria 17:03:43 04:59:59 Medical r Neurology 03 l Records Paulo Alcazar 2020-11-30 2020-12-02 Outside nullFlavo MNA [id number] Memoria 17:03:43 04:59:59 Medical r Neurology 03 l Records Paulo Alcazar 2020-11-30 2020-12-02 Outside nullFlavo MNA [id number] Memoria 17:03:43 04:59:59 Medical r Neurology 03 l Records Paulo Alcazar 2020-11-30 2020-12-01 Outpatient MHMISCHER MHMISCHER [id number] 12:03:43 23:59:59 03 2020-11-30 2020-12-01 Outpatient MHMISCHER MHMISCHER [id number] 12:03:43 23:59:59 03 2020-11-12 2020-11-14 Outside nullFlavo MNA [id number] Memoria 13:52:31 04:59:59 Medical r Neurology 02 l Records Paulo Alcazar 2020-11-12 2020-11-14 Outside nullFlavo MNA [id number] Memoria 13:52:31 04:59:59 Medical r Neurology 02 l Records Paulo Alcazar 2020-11-12 2020-11-14 Outside nullFlavo MNA [id number] Memoria 13:52:31 04:59:59 Medical r Neurology 02 l Records Paulo Alcazar 2020-11-12 2020-11-13 Outpatient MHMISCHER MHMISCHER [id number] 08:52:31 23:59:59 02 2020-11-12 2020-11-13 Outpatient MHMISCHER MHMISCHER [id number] 08:52:31 23:59:59 2020-10-26 2020-10-26 [facility] [id number] Common 00:00:00 00:00:00 [facility] 2020-10-22 2020-10-24 Outside nullFlavo MNA [id number] Memoria 21:10:49 04:59:59 Medical r Neurology 01 l Records Paulo Alcazar 2020-10-22 2020-10-24 Outside nullFlavo MNA [id number] Memoria 21:10:49 04:59:59 Medical r Neurology 01 l Records Paulo Alcazar 2020-10-22 2020-10-24 Outside nullFlavo MNA [id number] Memoria 21:10:49 04:59:59 Medical r Neurology 01 l Records Paulo Alcazar 2020-10-22 2020-10-23 Outpatient MHMISCHER MHMISCHER [id number] 16:10:49 23:59:59 2020-10-22 2020-10-23 Outpatient MHMISCHER MHMISCHER [id number] 16:10:49 23:59:59 2020-10-19 2020-10-21 Outside nullFlavo MNA [id number] Memoria 15:35:15 04:59:59 Medical r Neurology 00 l Records Paulo Alcazar 2020-10-19 2020-10-21 Outside nullFlavo MNA [id number] Memoria 15:35:15 04:59:59 Medical r Neurology 00 l Records Paulo Alcazar 2020-10-19 2020-10-21 Outside nullFlavo MNA [id number] Memoria 15:35:15 04:59:59 Medical r Neurology 00 l Records Paulo Alcazar 2020-10-19 2020-10-20 Outpatient MHMISCHER MHMISCHER [id number] 10:35:15 23:59:59 2020-10-19 2020-10-20 Outpatient MHMISCHER MHMISCHER [id number] 10:35:15 23:59:59 2020-10-14 2020-10-15 Outpatient nullFlavo MNA [id number] Memoria 15:15:00 05:59:59 r Neurology 03 l Paulo Alcazar 2020-10-14 2020-10-15 Outpatient nullFlavo MNA [id number] Memoria 15:15:00 05:59:59 r Neurology 03 l Paulo Alcazar 2020-10-14 2020-10-15 Outpatient nullFlavo MNA [id number] Memoria 15:15:00 05:59:59 r Neurology 03 owen Alcazar 2020-10-14 2020-10-14 Outpatient RUSSELL [facility]anaWISCHER [facility] [id number] 09:15:00 23:59:59 Yaniv [place] 2020-10-14 2020-10-14 Outpatient Add[facility] [id number] 09:15:00 23:59:59 Yaniv 03 [place] 2020-10-14 2020-10-14 Outpatient MHIE MHIE [id number] Memoria 09:15:00 09:15:00 03 owen Alcazar 2020-10-14 2020-10-14 Outpatient MHIE MHIE [id number] Memoria 09:15:00 09:15:00 03 owen Alcazar 2020-09-23 2020-09-24 Outpatient nullFlavo MNA [id number] Memoria 16:15:00 05:59:59 r Neurology 02 owen Alcazar 2020-09-23 2020-09-24 Outpatient nullFlavo MNA [id number] Memoria 16:15:00 05:59:59 r Neurology 02 owen Alcazar 2020-09-23 2020-09-24 Outpatient nullFlavo MNA [id number] Memoria 16:15:00 05:59:59 r Neurology 02 owen Alcazar 2020-09-23 2020-09-23 Outpatient RUSSELL FontanaWISCHER [facility] [id number] 10:15:00 23:59:59 Yaniv Gas[place] 2020-09-23 2020-09-23 Outpatient RUSSELL FontanaWISCHER MISCHER [id number] 10:15:00 23:59:59 Yaniv 02 [place] 2020-09-23 2020-09-23 Outpatient MHIE MHIE [id number] Memoria 10:15:00 10:15:00 02 l Ottoniel 2020-09-23 2020-09-23 Outpatient MHIE MHIE [id number] Memoria 10:15:00 10:15:00 02 l Ottoniel 2020-08-03 2020-08-04 Outpatient nullFlavo MNA [id number] Memoria 22:00:00 05:59:59 r Neurology 01 l Paulo Alcazar 2020-08-03 2020-08-04 Outpatient nullFlavo MNA [id number] Memoria 22:00:00 05:59:59 r Neurology 01 l Paulo Alcazar 2020-08-03 2020-08-04 Outpatient nullFlavo MNA [id number] Memoria 22:00:00 05:59:59 r Neurology 01 l Paulo Alcazar 2020-08-03 2020-08-03 [facility] [id number] 16:00:00 23:59:59 Yaniv 01 [place] 2020-08-03 2020-08-03 Out[facility] [id number] 16:00:00 23:59:59 Yaniv 01 [place] 2020-08-03 2020-08-03 Outpatient MHIE MHIE [id number] Memoria 16:00:00 16:00:00 01 owen Alcazar 2020-08-03 2020-08-03 Outpatient MHIE MHIE [id number] Memoria 16:00:00 16:00:00 01 l Ottoniel 2020-07-20 2020-07-20 Outpatient STLMLC STLMLC [id number] Common 00:00:00 00:00:00 [facility] 2020-06-17 2020-06-18 Outpatient nullFlavo MNA [id number] Memoria 15:15:00 05:59:59 r Neurology 00 l [place] 2020-06-17 2020-06-18 Outpatient nullFlavo MNA [id number] Memoria 15:15:00 05:59:59 r Neurology 00 l [place] 2020-06-17 2020-06-18 Outpatient nullFlavo MNA [id number] Memoria 15:15:00 05:59:59 r Neurology 00 l [place] 2020-06-17 2020-06-17 Outpatient Add[facility] [id number] 09:15:00 23:59:59 Yaniv 00 [place] 2020-06-17 2020-06-17 [facility] [place] [id number] 09:15:00 23:59:59 Yaniv 00 [place] 2020-06-17 2020-06-17 Outpatient MHIE MHIE [id number] Memoria 09:15:00 09:15:[address] [facility] 2020-06-17 2020-06-17 Outpatient MHIE MHIE [id number] Memoria 09:15:00 09:15:[address] [facility] 2020-02-23 2020-02-23 Outpatient [facility] [id number] Common 09:00:00 09:00:00 [facility] 2019-09-15 2019-09-27 Inpatient nullFlavo [facility] [id number] Memoria 17:37:00 00:48:[address] 2019-09-15 2019-09-27 Inpatient nullFlavo [facility] [id number] Memoria 17:37:00 00:48:[address] 2019-09-15 2019-09-27 Inpatient nullFlavo [facility] [id number] Memoria 17:37:00 00:48:[address] 2019-09-15 2019-09-26 Outpatient Sydnee [facility] [id number] 11:37:00 18:48:00 Rick Pagan [facility] 2019-09-15 2019-09-26 Outpatient [facility] [id number] 11:37:00 18:48:00 Nosunilldin [address] [facility] 2019-09-15 2019-09-15 Outpatient [facility] MART[facility]NEZ [id number] [facility] 13:19:00 13:19:00 2019-09-15 2019-09-15 Inpatient E [facility] [id number] [facility] 13:54:00 11:12:00 2019-09-09 2019-09-09 [facility] [id number] Common 10:43:00 10:43:00 [facility] 2019-09-01 2019-09-01 [facility] [id number] Common 15:00:00 15:00:00 t [facility] Results Test Description Test Time Test Comments Results Result Comments Source CHEM PANEL 2019-09-25 11:51:00 Test Item Value Reference Range Interpretation Comme nts Glucose Lvl (test code = Glucose Lvl) 91 70-99 [facility] [id number] 11:51:00 Test Item Value Reference Range Interpretation Comments BUN (test code = BUN) 14 7-22 [facility] [id number] 11:51:00 Test Item Value Reference Range Interpretation Comments Creatinine Lvl (test code = Creatinine 0.68 0.50-1.40 Lvl) [facility] [id number] 11:51:00 Test Item Value Reference Range Interpretation Comments Sodium Lvl (test code = Sodium Lvl) 135 135-145 [facility] [id number] 11:51:00 Test Item Value Reference Range Interpretation Comments Potassium Lvl (test code = Potassium 4.4 3.5-5.1 Lvl) [facility] [id number] 11:51:00 Test Item Value Reference Range Interpretation Comments Chloride Lvl (test code = Chloride Lvl) 103 95-109 [facility] [id number] 11:51:00 Test Item Value Reference Range Interpretation Comments CO2 (test code = CO2) 28 24-32 [facility] [id number] 11:51:00 Test Item Value Reference Range Interpretation Comments Calcium Lvl (test code = Calcium Lvl) 9.2 8.5-10.5 [facility] [id number] 11:51:00 Test Item Value Reference Range Interpretation Comments AGAP (test code = AGAP) 8.4 10.0-20.0 [facility] [id number] 11:51:00 Test Item Value Reference Range Interpretation Comments eGFR (test code = eGFR) 81 [facility] [id number] 11:51:00 Test Item Value Reference Range Interpretation Comments Magnesium Lvl (test code = Magnesium 1.7 1.8-2.4 Lvl) [facility]2020-02-20 11:51:00 Test Item Value Reference Range Interpretation Comments Phosphorus (test code = Phosphorus) 3.7 2.5-4.5 [facility]2020-02-20 11:51:00 Test Item Value Reference Range Interpretation Comments Glucose Lvl (test code = Glucose Lvl) 91 70-99 [place] 463050-02-20 11:51:00 Test Item Value Reference Range Interpretation Comments BUN (test code = BUN) 14 7-22 [facility]2020-02-20 11:51:00 Test Item Value Reference Range Interpretation Comments Creatinine Lvl (test code = Creatinine 0.68 0.50-1.40 Lvl) [facility]2020-02-20 11:51:00 Test Item Value Reference Range Interpretation Comments Sodium Lvl (test code = Sodium Lvl) 135 135-145 [place] 463050-02-20 11:51:00 Test Item Value Reference Range Interpretation Comments Potassium Lvl (test code = Potassium 4.4 3.5-5.1 Lvl) [facility]2020-02-20 11:51:00 Test Item Value Reference Range Interpretation Comments Chloride Lvl (test code = Chloride Lvl) 103 95-109 [facility]2020-02-20 11:51:00 Test Item Value Reference Range Interpretation Comments CO2 (test code = CO2) 28 24-32 [place] 463050-02-20 11:51:00 Test Item Value Reference Range Interpretation Comments Calcium Lvl (test code = Calcium Lvl) 9.2 8.5-10.5 [place] 463050-02-20 11:51:00 Test Item Value Reference Range Interpretation Comments AGAP (test code = AGAP) 8.4 10.0-20.0 [place] 463050-02-20 11:51:00 Test Item Value Reference Range Interpretation Comments eGFR (test code = eGFR) 81 [facility]2020-02-20 11:51:00 Test Item Value Reference Range Interpretation Comments Magnesium Lvl (test code = Magnesium 1.7 1.8-2.4 Lvl) [place] 463050-02-20 11:51:00 Test Item Value Reference Range Interpretation Comments Phosphorus (test code = Phosphorus) 3.7 2.5-4.5 [facility]2020-02-20 11:51:00 Test Item Value Reference Range Interpretation Comments Glucose Lvl (test code = Glucose Lvl) 91 70-99 [facility]2020-02-20 11:51:00 Test Item Value Reference Range Interpretation Comments BUN (test code = BUN) 14 7-22 [facility]2020-02-20 11:51:00 Test Item Value Reference Range Interpretation Comments Creatinine Lvl (test code = Creatinine 0.68 0.50-1.40 Lvl) [facility]2020-02-20 11:51:00 Test Item Value Reference Range Interpretation Comments Sodium Lvl (test code = Sodium Lvl) 135 135-145 [facility]2020-02-20 11:51:00 Test Item Value Reference Range Interpretation Comments Potassium Lvl (test code = Potassium 4.4 3.5-5.1 Lvl) [facility]2020-02-20 11:51:00 Test Item Value Reference Range Interpretation Comments Chloride Lvl (test code = Chloride Lvl) 103 95-109 [facility]2020-02-20 11:51:00 Test Item Value Reference Range Interpretation Comments CO2 (test code = CO2) 28 24-32 [facility]2020-02-20 11:51:00 Test Item Value Reference Range Interpretation Comments Calcium Lvl (test code = Calcium Lvl) 9.2 8.5-10.5 [facility]2020-02-20 11:51:00 Test Item Value Reference Range Interpretation Comments AGAP (test code = AGAP) 8.4 10.0-20.0 [facility]2020-02-20 11:51:00 Test Item Value Reference Range Interpretation Comments eGFR (test code = eGFR) 81 [facility]2020-02-20 11:51:00 Test Item Value Reference Range Interpretation Comments Magnesium Lvl (test code = Magnesium 1.7 1.8-2.4 Lvl) [facility]2020-02-20 11:51:00 Test Item Value Reference Range Interpretation Comments Phosphorus (test code = Phosphorus) 3.7 2.5-4.5 [facility]2020-02-20 11:51:00 Test Item Value Reference Range Interpretation Comments Glucose Lvl (test code = Glucose Lvl) 91 70-99 [facility]2020-02-20 11:51:00 Test Item Value Reference Range Interpretation Comments BUN (test code = BUN) 14 7-22 [facility]2020-02-20 11:51:00 Test Item Value Reference Range Interpretation Comments Creatinine Lvl (test code = Creatinine 0.68 0.50-1.40 Lvl) [facility]2020-02-20 11:51:00 Test Item Value Reference Range Interpretation Comments Sodium Lvl (test code = Sodium Lvl) 135 135-145 [facility]2020-02-20 11:51:00 Test Item Value Reference Range Interpretation Comments Potassium Lvl (test code = Potassium 4.4 3.5-5.1 Lvl) [facility]2020-02-20 11:51:00 Test Item Value Reference Range Interpretation Comments Chloride Lvl (test code = Chloride Lvl) 103 95-109 [facility]2020-02-20 11:51:00 Test Item Value Reference Range Interpretation Comments CO2 (test code = CO2) 28 24-32 [facility]2020-02-20 11:51:00 Test Item Value Reference Range Interpretation Comments Calcium Lvl (test code = Calcium Lvl) 9.2 8.5-10.5 [facility]2020-02-20 11:51:00 Test Item Value Reference Range Interpretation Comments AGAP (test code = AGAP) 8.4 10.0-20.0 [facility]2020-02-20 11:51:00 Test Item Value Reference Range Interpretation Comments eGFR (test code = eGFR) 81 [facility]2020-02-20 11:51:00 Test Item Value Reference Range Interpretation Comments Magnesium Lvl (test code = Magnesium 1.7 1.8-2.4 Lvl) [facility]2020-02-20 11:51:00 Test Item Value Reference Range Interpretation Comments Phosphorus (test code = Phosphorus) 3.7 2.5-4.5 [facility]2020-02-20 11:51:00 Test Item Value Reference Range Interpretation Comments Glucose Lvl (test code = Glucose Lvl) 91 70-99 [facility]2020-02-20 11:51:00 Test Item Value Reference Range Interpretation Comments BUN (test code = BUN) 14 - [facility]2020-02-20 11:51:00 Test Item Value Reference Range Interpretation Comments Creatinine Lvl (test code = Creatinine 0.68 0.50-1.40 Lvl) [facility]2020-02-20 11:51:00 Test Item Value Reference Range Interpretation Comments Sodium Lvl (test code = Sodium Lvl) 135 135-145 [facility]2020-02-20 11:51:00 Test Item Value Reference Range Interpretation Comments Potassium Lvl (test code = Potassium 4.4 3.5-5.1 Lvl) [facility]2020-02-20 11:51:00 Test Item Value Reference Range Interpretation Comments Chloride Lvl (test code = Chloride Lvl) 103 95-109 [facility]2020-02-20 11:51:00 Test Item Value Reference Range Interpretation Comments CO2 (test code = CO2) 28 24-32 [facility]2020-02-20 11:51:00 Test Item Value Reference Range Interpretation Comments Calcium Lvl (test code = Calcium Lvl) 9.2 8.5-10.5 [facility]2020-02-20 11:51:00 Test Item Value Reference Range Interpretation Comments AGAP (test code = AGAP) 8.4 10.0-20.0 [facility]2020-02-20 11:51:00 Test Item Value Reference Range Interpretation Comments eGFR (test code = eGFR) 81 [facility]2020-02-20 11:51:00 Test Item Value Reference Range Interpretation Comments Magnesium Lvl (test code = Magnesium 1.7 1.8-2.4 Lvl) [facility]2020-02-20 11:51:00 Test Item Value Reference Range Interpretation Comments Phosphorus (test code = Phosphorus) 3.7 2.5-4.5 [facility]2020-02-20 11:51:00 Test Item Value Reference Range Interpretation Comments Glucose Lvl (test code = Glucose Lvl) 91 70-99 [facility]2020-02-20 11:51:00 Test Item Value Reference Range Interpretation Comments BUN (test code = BUN) 14 - [facility]2020-02-20 11:51:00 Test Item Value Reference Range Interpretation Comments Creatinine Lvl (test code = Creatinine 0.68 0.50-1.40 Lvl) [facility]2020-02-20 11:51:00 Test Item Value Reference Range Interpretation Comments Sodium Lvl (test code = Sodium Lvl) 135 135-145 [place] 463050-02-20 11:51:00 Test Item Value Reference Range Interpretation Comments Potassium Lvl (test code = Potassium 4.4 3.5-5.1 Lvl) [facility]2020-02-20 11:51:00 Test Item Value Reference Range Interpretation Comments Chloride Lvl (test code = Chloride Lvl) 103 95-109 [facility]2020-02-20 11:51:00 Test Item Value Reference Range Interpretation Comments CO2 (test code = CO2) 28 24-32 [place] 463050-02-20 11:51:00 Test Item Value Reference Range Interpretation Comments Calcium Lvl (test code = Calcium Lvl) 9.2 8.5-10.5 [facility]2020-02-20 11:51:00 Test Item Value Reference Range Interpretation Comments AGAP (test code = AGAP) 8.4 10.0-20.0 [facility]2020-02-20 11:51:00 Test Item Value Reference Range Interpretation Comments eGFR (test code = eGFR) 81 [facility]2020-02-20 11:51:00 Test Item Value Reference Range Interpretation Comments Magnesium Lvl (test code = Magnesium 1.7 1.8-2.4 Lvl) [facility]2020-02-20 11:51:00 Test Item Value Reference Range Interpretation Comments Phosphorus (test code = Phosphorus) 3.7 2.5-4.5 [place] 463050-02-16 10:10:00 Test Item Value Reference Range Interpretation Comments Phosphorus (test code = Phosphorus) 2.1 2.5-4.5 [place] 463050-02-16 10:10:00 Test Item Value Reference Range Interpretation Comments Glucose Lvl (test code = Glucose Lvl) 100 70-99 [place] 463050-02-16 10:10:00 Test Item Value Reference Range Interpretation Comments BUN (test code = BUN) 12 - [facility]2020-02-16 10:10:00 Test Item Value Reference Range Interpretation Comments Creatinine Lvl (test code = Creatinine 0.58 0.50-1.40 Lvl) [facility]2020-02-16 10:10:00 Test Item Value Reference Range Interpretation Comments Sodium Lvl (test code = Sodium Lvl) 140 135-145 [place] 463050-02-16 10:10:00 Test Item Value Reference Range Interpretation Comments Potassium Lvl (test code = Potassium 3.4 3.5-5.1 Lvl) [facility]2020-02-16 10:10:00 Test Item Value Reference Range Interpretation Comments Chloride Lvl (test code = Chloride Lvl) 107 95-109 [facility]2020-02-16 10:10:00 Test Item Value Reference Range Interpretation Comments CO2 (test code = CO2) 27 24-32 [place] 463050-02-16 10:10:00 Test Item Value Reference Range Interpretation Comments Calcium Lvl (test code = Calcium Lvl) 8.7 8.5-10.5 [facility]2020-02-16 10:10:00 Test Item Value Reference Range Interpretation Comments AGAP (test code = AGAP) 9.4 10.0-20.0 [facility]2020-02-16 10:10:00 Test Item Value Reference Range Interpretation Comments eGFR (test code = eGFR) 85 [facility]2020-02-16 10:10:00 Test Item Value Reference Range Interpretation Comments Magnesium Lvl (test code = Magnesium 1.8 1.8-2.4 Lvl) [facility]245[facility] 10:10:00 Test Item Value Reference Range Interpretation Comments Segs (test code = Segs) 70.6 45.0-75.0 [place] 854380-02-16 10:10:00 Test Item Value Reference Range Interpretation Comments Lymphocytes (test code = Lymphocytes) 18.4 20.0-40.0 [place] 854380-02-16 10:10:00 Test Item Value Reference Range Interpretation Comments Monocytes (test code = Monocytes) 7.3 2.0-12.0 [place] 854380-02-16 10:10:00 Test Item Value Reference Range Interpretation Comments Eosinophils (test code = 3.1 See_Comment [A utomated message] The Eosinophils) system which ge nerated this result tra nsmitted reference range : <=4.0. The reference r natasha was not used to int erpret this result as normal/abnormal . [facility] LancasterLmszucvROXMDOUMNN6577-00-57 10:10:00 Test Item Value Reference Range Interpretation Comments Basophils (test code = 0.6 See_Comment [Aut omated message] The Basophils) system which ge nerated this result tra nsmitted reference range : <=1.0. The reference r natasha was not used to int erpret this result as normal/abnormal . [facility] LancasterHifvjsoGBBRIPBFNN3453-17-43 10:10:00 Test Item Value Reference Range Interpretation Comments Neutrophils # (test code = Neutrophils 5.8 1.5-8.1 #) [facility] LancasterHozrawgXWJMNQBNKL7376-21-18 10:10:00 Test Item Value Reference Range Interpretation Comments Lymphocytes # (test code = Lymphocytes 1.5 1.0-5.5 #) [facility] LancasterBidhmzpVGQVHQVOWE1075-90-91 10:10:00 Test Item Value Reference Range Interpretation Comments Monocytes # (test code 0.6 See_Comment [Aut omated message] The = Monocytes #) system which generated this result tra nsmitted reference range : <=0.8. The reference r natasha was not used to int erpret this result as normal/abnormal . [facility] LancasterLrhtkqbGTUGXPIMFV9671-88-94 10:10:00 Test Item Value Reference Range Interpretation Comments Eosinophils # (test code 0.3 See_Comment [A utomated message] The = Eosinophils #) system whic h generated this result tra nsmitted reference range : <=0.5. The reference r natasha was not used to int erpret this result as normal/abnormal . [facility] LancasterTotflwiIHOFTXBFEN1793-83-48 10:10:00 Test Item Value Reference Range Interpretation Comments WBC (test code = WBC) 8.2 3.7-10.4 [facility] LancasterWxkftwtUBRDWNQLUZ2437-81-05 10:10:00 Test Item Value Reference Range Interpretation Comments RBC (test code = RBC) 3.65 4.20-5.40 [place] 854380-02-16 10:10:00 Test Item Value Reference Range Interpretation Comments Hgb (test code = Hgb) 12.1 12.0-16.0 [facility]PDFESGID5952[facility]70-66 10:10:00 Test Item Value Reference Range Interpretation Comments Hct (test code = Hct) 35.9 36.0-48.0 [facility] LancasterEghjidvGDJGPDHUJA2705-75-80 10:10:00 Test Item Value Reference Range Interpretation Comments MCV (test code = MCV) 98.4 80.0-98.0 [facility] LancasterMmlbqadLDUUTPDYDT7622-12-02 10:10:00 Test Item Value Reference Range Interpretation Comments MCH (test code = MCH) 33.1 pg 27.0-31.0 [facility] LancasterRzufylcDTXYABJMAK1745-40-35 10:10:00 Test Item Value Reference Range Interpretation Comments MCHC (test code = MCHC) 33.7 32.0-36.0 [facility] LancasterUnwygmfNGURZOPOBN7048-49-72 10:10:00 Test Item Value Reference Range Interpretation Comments RDW (test code = RDW) 12.9 11.5-14.5 [facility] LancasterSwdbnjiVZVYQJWABN6656-85-11 10:10:00 Test Item Value Reference Range Interpretation Comments Platelet (test code = Platelet) 217 133-450 [facility] LancasterIhnnwalEZABXDDUPS9742-94-97 10:10:00 Test Item Value Reference Range Interpretation Comments MPV (test code = MPV) 9.3 7.4-10.4 [facility] EAHZUSQ7899-64-59 10:10:00 Test Item Value Reference Range Interpretation Comments Ca Ion WB (test code = Ca Ion WB) 1.20 1.05-1.25 [facility] TGHBNML1296-60-89 10:10:00 Test Item Value Reference Range Interpretation Comments Ca Norm WB (test code = Ca Norm WB) 1.20 1.05-1.[address] [facility] [id number] 10:10:00 Test Item Value Reference Range Interpretation Comments Phosphorus (test code = Phosphorus) 2.1 2.5-4.5 [facility]2020-02-16 10:10:00 Test Item Value Reference Range Interpretation Comments Glucose Lvl (test code = Glucose Lvl) 100 70-99 [facility]2020-02-16 10:10:00 Test Item Value Reference Range Interpretation Comments BUN (test code = BUN) 12 - [facility]2020-02-16 10:10:00 Test Item Value Reference Range Interpretation Comments Creatinine Lvl (test code = Creatinine 0.58 0.50-1.40 Lvl) [facility]2020-02-16 10:10:00 Test Item Value Reference Range Interpretation Comments Sodium Lvl (test code = Sodium Lvl) 140 135-145 [place] 463050-02-16 10:10:00 Test Item Value Reference Range Interpretation Comments Potassium Lvl (test code = Potassium 3.4 3.5-5.1 Lvl) [facility]2020-02-16 10:10:00 Test Item Value Reference Range Interpretation Comments Chloride Lvl (test code = Chloride Lvl) 107 95-109 [facility]2020-02-16 10:10:00 Test Item Value Reference Range Interpretation Comments CO2 (test code = CO2) 27 24-32 [place] 463050-02-16 10:10:00 Test Item Value Reference Range Interpretation Comments Calcium Lvl (test code = Calcium Lvl) 8.7 8.5-10.5 [facility]2020-02-16 10:10:00 Test Item Value Reference Range Interpretation Comments AGAP (test code = AGAP) 9.4 10.0-20.0 [facility]2020-02-16 10:10:00 Test Item Value Reference Range Interpretation Comments eGFR (test code = eGFR) 85 [facility]2020-02-16 10:10:00 Test Item Value Reference Range Interpretation Comments Magnesium Lvl (test code = Magnesium 1.8 1.8-2.4 Lvl) [facility] LancasterBwonwutZDLCKOJZCF6774-05-35 10:10:00 Test Item Value Reference Range Interpretation Comments Segs (test code = Segs) 70.6 45.0-75.0 [place] 854380-02-16 10:10:00 Test Item Value Reference Range Interpretation Comments Lymphocytes (test code = Lymphocytes) 18.4 20.0-40.0 [place] 854380-02-16 10:10:00 Test Item Value Reference Range Interpretation Comments Monocytes (test code = Monocytes) 7.3 2.0-12.0 [place] 854380-02-16 10:10:00 Test Item Value Reference Range Interpretation Comments Eosinophils (test code = 3.1 See_Comment [A utomated message] The Eosinophils) system which ge nerated this result tra nsmitted reference range : <=4.0. The reference r natasha was not used to int erpret this result as normal/abnormal . [facility] LancasterIynqoxfDVPZEQYTZW1475-43-35 10:10:00 Test Item Value Reference Range Interpretation Comments Basophils (test code = 0.6 See_Comment [Aut omated message] The Basophils) system which ge nerated this result tra nsmitted reference range : <=1.0. The reference r natasha was not used to int erpret this result as normal/abnormal . [facility] LancasterViqxgabPTPFMNLCWV2869-61-51 10:10:00 Test Item Value Reference Range Interpretation Comments Neutrophils # (test code = Neutrophils 5.8 1.5-8.1 #) [facility] LancasterLcnzvqwGQMPFPKHWL6333-95-19 10:10:00 Test Item Value Reference Range Interpretation Comments Lymphocytes # (test code = Lymphocytes 1.5 1.0-5.5 #) [facility] LancasterQvqjvqxWZXGTSBWRC8493-07-10 10:10:00 Test Item Value Reference Range Interpretation Comments Monocytes # (test code 0.6 See_Comment [Aut omated message] The = Monocytes #) system which generated this result tra nsmitted reference range : <=0.8. The reference r natasha was not used to int erpret this result as normal/abnormal . [facility] LancasterSduknofUUEMZGZMJC7543-86-25 10:10:00 Test Item Value Reference Range Interpretation Comments Eosinophils # (test code 0.3 See_Comment [A utomated message] The = Eosinophils #) system whic h generated this result tra nsmitted reference range : <=0.5. The reference r natasha was not used to int erpret this result as normal/abnormal . [facility] LancasterCjuswviRRQMOYPTOC1545-10-81 10:10:00 Test Item Value Reference Range Interpretation Comments WBC (test code = WBC) 8.2 3.7-10.4 [facility] LancasterJmskrdnGZWIZNIVPL8602-62-58 10:10:00 Test Item Value Reference Range Interpretation Comments RBC (test code = RBC) 3.65 4.20-5.40 [place] 854380-02-16 10:10:00 Test Item Value Reference Range Interpretation Comments Hgb (test code = Hgb) 12.1 12.0-16.0 [facility] HospitalVdklpxlIPQDFLSHBQ5510-52-41 10:10:00 Test Item Value Reference Range Interpretation Comments Hct (test code = Hct) 35.9 36.0-48.0 [facility] LancasterKmeueyvULBKRRPUYJ1428-32-39 10:10:00 Test Item Value Reference Range Interpretation Comments MCV (test code = MCV) 98.4 80.0-98.0 [facility] LancasterPkdnfjrPQKCJRTIAS6799-16-77 10:10:00 Test Item Value Reference Range Interpretation Comments MCH (test code = MCH) 33.1 pg 27.0-31.0 [facility] LancasterCdphefjVMHBHCWTXL3493-13-93 10:10:00 Test Item Value Reference Range Interpretation Comments MCHC (test code = MCHC) 33.7 32.0-36.0 [facility] LancasterDgktfkyNZMEGCBIKY6958-57-76 10:10:00 Test Item Value Reference Range Interpretation Comments RDW (test code = RDW) 12.9 11.5-14.5 [facility] LancasterWfnlrkvUPDTZXIGHZ6151-22-22 10:10:00 Test Item Value Reference Range Interpretation Comments Platelet (test code = Platelet) 217 133-450 [facility] LancasterTgsutxkZDXSXWBZUR4090-36-20 10:10:00 Test Item Value Reference Range Interpretation Comments MPV (test code = MPV) 9.3 7.4-10.4 [facility] DRMVKZE9915-38-92 10:10:00 Test Item Value Reference Range Interpretation Comments Ca Ion WB (test code = Ca Ion WB) 1.20 1.05-1.25 [facility] ZJDSCHR5877-07-83 10:10:00 Test Item Value Reference Range Interpretation Comments Ca Norm WB (test code = Ca Norm WB) 1.20 1.05-1.[address] [facility] [id number] 10:10:00 Test Item Value Reference Range Interpretation Comments Phosphorus (test code = Phosphorus) 2.1 2.5-4.5 [facility]2020-02-16 10:10:00 Test Item Value Reference Range Interpretation Comments Glucose Lvl (test code = Glucose Lvl) 100 70-99 [facility]2020-02-16 10:10:00 Test Item Value Reference Range Interpretation Comments BUN (test code = BUN) 12 - [facility]2020-02-16 10:10:00 Test Item Value Reference Range Interpretation Comments Creatinine Lvl (test code = Creatinine 0.58 0.50-1.40 Lvl) [facility]2020-02-16 10:10:00 Test Item Value Reference Range Interpretation Comments Sodium Lvl (test code = Sodium Lvl) 140 135-145 [place] 463050-02-16 10:10:00 Test Item Value Reference Range Interpretation Comments Potassium Lvl (test code = Potassium 3.4 3.5-5.1 Lvl) [facility]2020-02-16 10:10:00 Test Item Value Reference Range Interpretation Comments Chloride Lvl (test code = Chloride Lvl) 107 95-109 [facility]2020-02-16 10:10:00 Test Item Value Reference Range Interpretation Comments CO2 (test code = CO2) 27 24-32 [place] 463050-02-16 10:10:00 Test Item Value Reference Range Interpretation Comments Calcium Lvl (test code = Calcium Lvl) 8.7 8.5-10.5 [facility]2020-02-16 10:10:00 Test Item Value Reference Range Interpretation Comments AGAP (test code = AGAP) 9.4 10.0-20.0 [facility]2020-02-16 10:10:00 Test Item Value Reference Range Interpretation Comments eGFR (test code = eGFR) 85 [facility]2020-02-16 10:10:00 Test Item Value Reference Range Interpretation Comments Magnesium Lvl (test code = Magnesium 1.8 1.8-2.4 Lvl) [facility] LancasterGiakzgjDTHEOHFGBO2452-86-10 10:10:00 Test Item Value Reference Range Interpretation Comments Segs (test code = Segs) 70.6 45.0-75.0 [place] 854380-02-16 10:10:00 Test Item Value Reference Range Interpretation Comments Lymphocytes (test code = Lymphocytes) 18.4 20.0-40.0 [place] 854380-02-16 10:10:00 Test Item Value Reference Range Interpretation Comments Monocytes (test code = Monocytes) 7.3 2.0-12.0 [place] 854380-02-16 10:10:00 Test Item Value Reference Range Interpretation Comments Eosinophils (test code = 3.1 See_Comment [A utomated message] The Eosinophils) system which ge nerated this result tra nsmitted reference range : <=4.0. The reference r natasha was not used to int erpret this result as normal/abnormal . [facility] LancasterSihcauvVTVHMHGJMD3517-26-67 10:10:00 Test Item Value Reference Range Interpretation Comments Basophils (test code = 0.6 See_Comment [Aut omated message] The Basophils) system which ge nerated this result tra nsmitted reference range : <=1.0. The reference r natasha was not used to int erpret this result as normal/abnormal . [facility] LancasterIlfqjqvHSQZMDTYMK7277-30-68 10:10:00 Test Item Value Reference Range Interpretation Comments Neutrophils # (test code = Neutrophils 5.8 1.5-8.1 #) [facility] LancasterUufjgfnWIOXVPVJIE5499-43-71 10:10:00 Test Item Value Reference Range Interpretation Comments Lymphocytes # (test code = Lymphocytes 1.5 1.0-5.5 #) [facility]OkfpzzhGKWMFESFAS2516-35-46 10:10:00 Test Item Value Reference Range Interpretation Comments Monocytes # (test code 0.6 See_Comment [Aut omated message] The = Monocytes #) system which generated this result tra nsmitted reference range : <=0.8. The reference r natasha was not used to int erpret this result as normal/abnormal . [facility] LancasterGsihedvRACOUSJYNR5461-96-49 10:10:00 Test Item Value Reference Range Interpretation Comments Eosinophils # (test code 0.3 See_Comment [A utomated message] The = Eosinophils #) system whic h generated this result tra nsmitted reference range : <=0.5. The reference r natasha was not used to int erpret this result as normal/abnormal . [facility] LancasterVgiybtzDOAGKNHGSI6787-23-35 10:10:00 Test Item Value Reference Range Interpretation Comments WBC (test code = WBC) 8.2 3.7-10.4 [facility] LancasterVlpjxbyLOTNIPWFBT2316-75-11 10:10:00 Test Item Value Reference Range Interpretation Comments RBC (test code = RBC) 3.65 4.20-5.40 [place] 854380-02-16 10:10:00 Test Item Value Reference Range Interpretation Comments Hgb (test code = Hgb) 12.1 12.0-16.0 [facility] 10:10:00 Test Item Value Reference Range Interpretation Comments Hct (test code = Hct) 35.9 36.0-48.0 [facility] LancasterCpalfszOPCEBGABKG2235-50-94 10:10:00 Test Item Value Reference Range Interpretation Comments MCV (test code = MCV) 98.4 80.0-98.0 [facility] LancasterZtrhqceIYUYVDCYZM7581-46-02 10:10:00 Test Item Value Reference Range Interpretation Comments MCH (test code = MCH) 33.1 pg 27.0-31.0 [facility] LancasterOuerkfyFQLVJRORGU0566-56-43 10:10:00 Test Item Value Reference Range Interpretation Comments MCHC (test code = MCHC) 33.7 32.0-36.0 [facility] LancasterJyqurbrQUFKQWEWYT0484-74-35 10:10:00 Test Item Value Reference Range Interpretation Comments RDW (test code = RDW) 12.9 11.5-14.5 [facility] LancasterEfunzxoJXCIDPRUHM6244-87-50 10:10:00 Test Item Value Reference Range Interpretation Comments Platelet (test code = Platelet) 217 133-450 [facility] LancasterIekexjkUZGZLMTQSK7672-37-71 10:10:00 Test Item Value Reference Range Interpretation Comments MPV (test code = MPV) 9.3 7.4-10.4 [facility] EXHJWGV9831-40-50 10:10:00 Test Item Value Reference Range Interpretation Comments Ca Ion WB (test code = Ca Ion WB) 1.20 1.05-1.25 [facility] KXSRHBR3857-44-34 10:10:00 Test Item Value Reference Range Interpretation Comments Ca Norm WB (test code = Ca Norm WB) 1.20 1.05-1.[address] [facility] [id number] 10:10:00 Test Item Value Reference Range Interpretation Comments Phosphorus (test code = Phosphorus) 2.1 2.5-4.5 [facility]2020-02-16 10:10:00 Test Item Value Reference Range Interpretation Comments Glucose Lvl (test code = Glucose Lvl) 100 70-99 [facility]2020-02-16 10:10:00 Test Item Value Reference Range Interpretation Comments BUN (test code = BUN) 12 - [facility]2020-02-16 10:10:00 Test Item Value Reference Range Interpretation Comments Creatinine Lvl (test code = Creatinine 0.58 0.50-1.40 Lvl) [facility]2020-02-16 10:10:00 Test Item Value Reference Range Interpretation Comments Sodium Lvl (test code = Sodium Lvl) 140 135-145 [place] 463050-02-16 10:10:00 Test Item Value Reference Range Interpretation Comments Potassium Lvl (test code = Potassium 3.4 3.5-5.1 Lvl) [facility]2020-02-16 10:10:00 Test Item Value Reference Range Interpretation Comments Chloride Lvl (test code = Chloride Lvl) 107 95-109 [facility]2020-02-16 10:10:00 Test Item Value Reference Range Interpretation Comments CO2 (test code = CO2) 27 24-32 [place] 463050-02-16 10:10:00 Test Item Value Reference Range Interpretation Comments Calcium Lvl (test code = Calcium Lvl) 8.7 8.5-10.5 [facility]2020-02-16 10:10:00 Test Item Value Reference Range Interpretation Comments AGAP (test code = AGAP) 9.4 10.0-20.0 [facility]2020-02-16 10:10:00 Test Item Value Reference Range Interpretation Comments eGFR (test code = eGFR) 85 [facility]2020-02-16 10:10:00 Test Item Value Reference Range Interpretation Comments Magnesium Lvl (test code = Magnesium 1.8 1.8-2.4 Lvl) [facility] LancasterVgyhefqZKDYVYHXJN2558-36-75 10:10:00 Test Item Value Reference Range Interpretation Comments Segs (test code = Segs) 70.6 45.0-75.0 [place] 854380-02-16 10:10:00 Test Item Value Reference Range Interpretation Comments Lymphocytes (test code = Lymphocytes) 18.4 20.0-40.0 [place] 854380-02-16 10:10:00 Test Item Value Reference Range Interpretation Comments Monocytes (test code = Monocytes) 7.3 2.0-12.0 [place] 854380-02-16 10:10:00 Test Item Value Reference Range Interpretation Comments Eosinophils (test code = 3.1 See_Comment [A utomated message] The Eosinophils) system which ge nerated this result tra nsmitted reference range : <=4.0. The reference r natasha was not used to int erpret this result as normal/abnormal . [facility] LancasterOxdtigiZIUEOHNDIT2947-90-48 10:10:00 Test Item Value Reference Range Interpretation Comments Basophils (test code = 0.6 See_Comment [Aut omated message] The Basophils) system which ge nerated this result tra nsmitted reference range : <=1.0. The reference r natasha was not used to int erpret this result as normal/abnormal . [facility] LancasterWpwwygnTNWBHSLNLN3180-57-83 10:10:00 Test Item Value Reference Range Interpretation Comments Neutrophils # (test code = Neutrophils 5.8 1.5-8.1 #) [facility] LancasterWkdnmsnFGQOXDBYRR9530-72-20 10:10:00 Test Item Value Reference Range Interpretation Comments Lymphocytes # (test code = Lymphocytes 1.5 1.0-5.5 #) [facility] LancasterAwrzsxnERIBBZOKFT3820-31-62 10:10:00 Test Item Value Reference Range Interpretation Comments Monocytes # (test code 0.6 See_Comment [Aut omated message] The = Monocytes #) system which generated this result tra nsmitted reference range : <=0.8. The reference r natasha was not used to int erpret this result as normal/abnormal . [facility] LancasterUuvpwktZDMRCUCHOD4416-60-33 10:10:00 Test Item Value Reference Range Interpretation Comments Eosinophils # (test code 0.3 See_Comment [A utomated message] The = Eosinophils #) system whic h generated this result tra nsmitted reference range : <=0.5. The reference r natasha was not used to int erpret this result as normal/abnormal . [facility] LancasterJhviqtlIUNAUKNHQF4419-80-82 10:10:00 Test Item Value Reference Range Interpretation Comments WBC (test code = WBC) 8.2 3.7-10.4 [facility] LancasterZnhkzwzUNFYJYJJQU6319-25-80 10:10:00 Test Item Value Reference Range Interpretation Comments RBC (test code = RBC) 3.65 4.20-5.40 [place] 854380-02-16 10:10:00 Test Item Value Reference Range Interpretation Comments Hgb (test code = Hgb) 12.1 12.0-16.0 [facility] HospitalXrkmghmPALIJFHVOO6593-36-32 10:10:00 Test Item Value Reference Range Interpretation Comments Hct (test code = Hct) 35.9 36.0-48.0 [facility] LancasterKqgrqqrHMRWYXSUKT7987-54-81 10:10:00 Test Item Value Reference Range Interpretation Comments MCV (test code = MCV) 98.4 80.0-98.0 [facility] LancasterEhgpuwiXVUEQBUEGD9981-78-91 10:10:00 Test Item Value Reference Range Interpretation Comments MCH (test code = MCH) 33.1 pg 27.0-31.0 [facility] LancasterEsqaalbGYZIOLJOLL7665-48-90 10:10:00 Test Item Value Reference Range Interpretation Comments MCHC (test code = MCHC) 33.7 32.0-36.0 [facility] LancasterXnzcgciFNAMIBVMZP1299-07-45 10:10:00 Test Item Value Reference Range Interpretation Comments RDW (test code = RDW) 12.9 11.5-14.5 [facility] LancasterRmzycrzXFTCGNXEZX6130-06-30 10:10:00 Test Item Value Reference Range Interpretation Comments Platelet (test code = Platelet) 217 133-450 [facility] LancasterIpslpdqVBWSLBXSOL0624-22-73 10:10:00 Test Item Value Reference Range Interpretation Comments MPV (test code = MPV) 9.3 7.4-10.4 [facility] XQXYEKR1854-49-81 10:10:00 Test Item Value Reference Range Interpretation Comments Ca Ion WB (test code = Ca Ion WB) 1.20 1.05-1.25 [facility]PAR[facility] NWHQHWG2814-28-46 10:10:00 Test Item Value Reference Range Interpretation Comments Ca Norm WB (test code = Ca Norm WB) 1.20 1.05-1.[address] [facility] TCSCM1410-36-56 10:10:00 Test Item Value Reference Range Interpretation Comments Phosphorus (test code = Phosphorus) 2.1 2.5-4.5 [facility]2020-02-16 10:10:00 Test Item Value Reference Range Interpretation Comments Glucose Lvl (test code = Glucose Lvl) 100 70-99 [facility]2020-02-16 10:10:00 Test Item Value Reference Range Interpretation Comments BUN (test code = BUN) 12 - [facility]2020-02-16 10:10:00 Test Item Value Reference Range Interpretation Comments Creatinine Lvl (test code = Creatinine 0.58 0.50-1.40 Lvl) [facility]2020-02-16 10:10:00 Test Item Value Reference Range Interpretation Comments Sodium Lvl (test code = Sodium Lvl) 140 135-145 [place] 463050-02-16 10:10:00 Test Item Value Reference Range Interpretation Comments Potassium Lvl (test code = Potassium 3.4 3.5-5.1 Lvl) [facility]2020-02-16 10:10:00 Test Item Value Reference Range Interpretation Comments Chloride Lvl (test code = Chloride Lvl) 107 95-109 [facility]2020-02-16 10:10:00 Test Item Value Reference Range Interpretation Comments CO2 (test code = CO2) 27 24-32 [place] 463050-02-16 10:10:00 Test Item Value Reference Range Interpretation Comments Calcium Lvl (test code = Calcium Lvl) 8.7 8.5-10.5 [facility]2020-02-16 10:10:00 Test Item Value Reference Range Interpretation Comments AGAP (test code = AGAP) 9.4 10.0-20.0 [facility]2020-02-16 10:10:00 Test Item Value Reference Range Interpretation Comments eGFR (test code = eGFR) 85 [facility]2020-02-16 10:10:00 Test Item Value Reference Range Interpretation Comments Magnesium Lvl (test code = Magnesium 1.8 1.8-2.4 Lvl) [facility] LancasterAcckolnNGADMWWLOE4648-01-05 10:10:00 Test Item Value Reference Range Interpretation Comments Segs (test code = Segs) 70.6 45.0-75.0 [place] 854380-02-16 10:10:00 Test Item Value Reference Range Interpretation Comments Lymphocytes (test code = Lymphocytes) 18.4 20.0-40.0 [place] 854380-02-16 10:10:00 Test Item Value Reference Range Interpretation Comments Monocytes (test code = Monocytes) 7.3 2.0-12.0 [place] 854380-02-16 10:10:00 Test Item Value Reference Range Interpretation Comments Eosinophils (test code = 3.1 See_Comment [A utomated message] The Eosinophils) system which ge nerated this result tra nsmitted reference range : <=4.0. The reference r natasha was not used to int erpret this result as normal/abnormal . [facility] LancasterEqtjwhlNBGERVKLSV4578-79-09 10:10:00 Test Item Value Reference Range Interpretation Comments Basophils (test code = 0.6 See_Comment [Aut omated message] The Basophils) system which ge nerated this result tra nsmitted reference range : <=1.0. The reference r natasha was not used to int erpret this result as normal/abnormal . [facility] LancasterMshrxtgKOPZSMTSRT1835-67-56 10:10:00 Test Item Value Reference Range Interpretation Comments Neutrophils # (test code = Neutrophils 5.8 1.5-8.1 #) [facility] LancasterIveojhyNUBRFQSKRG6072-98-13 10:10:00 Test Item Value Reference Range Interpretation Comments Lymphocytes # (test code = Lymphocytes 1.5 1.0-5.5 #) [facility] LancasterZhwytciXWOCMRMNYG4548-98-25 10:10:00 Test Item Value Reference Range Interpretation Comments Monocytes # (test code 0.6 See_Comment [Aut omated message] The = Monocytes #) system which generated this result tra nsmitted reference range : <=0.8. The reference r natasha was not used to int erpret this result as normal/abnormal . [facility] LancasterCrgkqymASBHPMUIUF1246-35-34 10:10:00 Test Item Value Reference Range Interpretation Comments Eosinophils # (test code 0.3 See_Comment [A utomated message] The = Eosinophils #) system whic h generated this result tra nsmitted reference range : <=0.5. The reference r natasha was not used to int erpret this result as normal/abnormal . [facility] LancasterEegxjgcYKEZPKBXQL0446-59-55 10:10:00 Test Item Value Reference Range Interpretation Comments WBC (test code = WBC) 8.2 3.7-10.4 [facility] LancasterTpihhbgPBPPGYNJUS6204-44-69 10:10:00 Test Item Value Reference Range Interpretation Comments RBC (test code = RBC) 3.65 4.20-5.40 [place] 854380-02-16 10:10:00 Test Item Value Reference Range Interpretation Comments Hgb (test code = Hgb) 12.1 12.0-16.0 [facility] HospitalHwrobkeWMMTZZNVVA2722-26-80 10:10:00 Test Item Value Reference Range Interpretation Comments Hct (test code = Hct) 35.9 36.0-48.0 [facility] LancasterRpkavhjPROBNNXRPT7563-49-64 10:10:00 Test Item Value Reference Range Interpretation Comments MCV (test code = MCV) 98.4 80.0-98.0 [facility] LancasterVqbeolnLDWPGOYDUX7052-18-79 10:10:00 Test Item Value Reference Range Interpretation Comments MCH (test code = MCH) 33.1 pg 27.0-31.0 [facility] LancasterFwgxrreFVSODYDADR3127-34-57 10:10:00 Test Item Value Reference Range Interpretation Comments MCHC (test code = MCHC) 33.7 32.0-36.0 [facility] LancasterHibjqynHEHLRVHTNT2196-59-96 10:10:00 Test Item Value Reference Range Interpretation Comments RDW (test code = RDW) 12.9 11.5-14.5 [facility] LancasterTrlkimpULNFAIGHMI0498-41-89 10:10:00 Test Item Value Reference Range Interpretation Comments Platelet (test code = Platelet) 217 133-450 [facility] LancasterGqjrbjzRBWOCTHZRF4063-15-74 10:10:00 Test Item Value Reference Range Interpretation Comments MPV (test code = MPV) 9.3 7.4-10.4 [facility] IBQRHYV9608-19-88 10:10:00 Test Item Value Reference Range Interpretation Comments Ca Ion WB (test code = Ca Ion WB) 1.20 1.05-1.25 [facility]PAR[facility]ID HGUZIVE0671-23-20 10:10:00 Test Item Value Reference Range Interpretation Comments Ca Norm WB (test code = Ca Norm WB) 1.20 1.05-1.[address] [facility] NNQOY5555-15-30 10:10:00 Test Item Value Reference Range Interpretation Comments Phosphorus (test code = Phosphorus) 2.1 2.5-4.5 [facility]2020-02-16 10:10:00 Test Item Value Reference Range Interpretation Comments Glucose Lvl (test code = Glucose Lvl) 100 70-99 [facility]2020-02-16 10:10:00 Test Item Value Reference Range Interpretation Comments BUN (test code = BUN) 12 - [facility]2020-02-16 10:10:00 Test Item Value Reference Range Interpretation Comments Creatinine Lvl (test code = Creatinine 0.58 0.50-1.40 Lvl) [facility]2020-02-16 10:10:00 Test Item Value Reference Range Interpretation Comments Sodium Lvl (test code = Sodium Lvl) 140 135-145 [place] 463050-02-16 10:10:00 Test Item Value Reference Range Interpretation Comments Potassium Lvl (test code = Potassium 3.4 3.5-5.1 Lvl) [facility]2020-02-16 10:10:00 Test Item Value Reference Range Interpretation Comments Chloride Lvl (test code = Chloride Lvl) 107 95-109 [facility]2020-02-16 10:10:00 Test Item Value Reference Range Interpretation Comments CO2 (test code = CO2) 27 24-32 [place] 463050-02-16 10:10:00 Test Item Value Reference Range Interpretation Comments Calcium Lvl (test code = Calcium Lvl) 8.7 8.5-10.5 [facility]2020-02-16 10:10:00 Test Item Value Reference Range Interpretation Comments AGAP (test code = AGAP) 9.4 10.0-20.0 [facility]2020-02-16 10:10:00 Test Item Value Reference Range Interpretation Comments eGFR (test code = eGFR) 85 [facility]2020-02-16 10:10:00 Test Item Value Reference Range Interpretation Comments Magnesium Lvl (test code = Magnesium 1.8 1.8-2.4 Lvl) [facility] LancasterVdkpxdaAGHUJGIIGQ6155-61-88 10:10:00 Test Item Value Reference Range Interpretation Comments Segs (test code = Segs) 70.6 45.0-75.0 [place] 854380-02-16 10:10:00 Test Item Value Reference Range Interpretation Comments Lymphocytes (test code = Lymphocytes) 18.4 20.0-40.0 [place] 854380-02-16 10:10:00 Test Item Value Reference Range Interpretation Comments Monocytes (test code = Monocytes) 7.3 2.0-12.0 [place] 854380-02-16 10:10:00 Test Item Value Reference Range Interpretation Comments Eosinophils (test code = 3.1 See_Comment [A utomated message] The Eosinophils) system which ge nerated this result tra nsmitted reference range : <=4.0. The reference r natasha was not used to int erpret this result as normal/abnormal . [facility] LancasterOpkedowLBHSNXXSUK9701-84-56 10:10:00 Test Item Value Reference Range Interpretation Comments Basophils (test code = 0.6 See_Comment [Aut omated message] The Basophils) system which ge nerated this result tra nsmitted reference range : <=1.0. The reference r natasha was not used to int erpret this result as normal/abnormal . [facility] LancasterNpzdhbaFQTKIUZKCI9282-52-08 10:10:00 Test Item Value Reference Range Interpretation Comments Neutrophils # (test code = Neutrophils 5.8 1.5-8.1 #) [facility] LancasterDbnrmaaXLXRQHJOES2138-26-95 10:10:00 Test Item Value Reference Range Interpretation Comments Lymphocytes # (test code = Lymphocytes 1.5 1.0-5.5 #) [facility] LancasterKhrzzuiQJRFRUTWEZ5962-67-69 10:10:00 Test Item Value Reference Range Interpretation Comments Monocytes # (test code 0.6 See_Comment [Aut omated message] The = Monocytes #) system which generated this result tra nsmitted reference range : <=0.8. The reference r natasha was not used to int erpret this result as normal/abnormal . [facility] LancasterNkbsofxJQUCTIWBNK7624-08-49 10:10:00 Test Item Value Reference Range Interpretation Comments Eosinophils # (test code 0.3 See_Comment [A utomated message] The = Eosinophils #) system whic h generated this result tra nsmitted reference range : <=0.5. The reference r natasha was not used to int erpret this result as normal/abnormal . [facility] LancasterCkxbeklFOZYIJBSIH3242-13-43 10:10:00 Test Item Value Reference Range Interpretation Comments WBC (test code = WBC) 8.2 3.7-10.4 [facility] LancasterBxahwguYRWVKDGJPQ7366-98-83 10:10:00 Test Item Value Reference Range Interpretation Comments RBC (test code = RBC) 3.65 4.20-5.40 [place] 854380-02-16 10:10:00 Test Item Value Reference Range Interpretation Comments Hgb (test code = Hgb) 12.1 12.0-16.0 [facility] LancasterMneogveVKTQVLAYTJ1737-45-89 10:10:00 Test Item Value Reference Range Interpretation Comments Hct (test code = Hct) 35.9 36.0-48.0 [facility] LancasterZwrqwhoBBSJWBPOIU6625-70-69 10:10:00 Test Item Value Reference Range Interpretation Comments MCV (test code = MCV) 98.4 80.0-98.0 [facility] LancasterBopriijNKNAULEUIK6143-73-48 10:10:00 Test Item Value Reference Range Interpretation Comments MCH (test code = MCH) 33.1 pg 27.0-31.0 [facility] LancasterBwltfpwOZONDGEHOL8476-22-29 10:10:00 Test Item Value Reference Range Interpretation Comments MCHC (test code = MCHC) 33.7 32.0-36.0 [facility] LancasterZvtletsAYKIMMXWZF3250-46-45 10:10:00 Test Item Value Reference Range Interpretation Comments RDW (test code = RDW) 12.9 11.5-14.5 [facility] LancasterZrncpscAXPUJDVHKI9539-63-64 10:10:00 Test Item Value Reference Range Interpretation Comments Platelet (test code = Platelet) 217 133-450 [facility] LancasterQgfmzvsTOIWZEHIMY1515-67-73 10:10:00 Test Item Value Reference Range Interpretation Comments MPV (test code = MPV) 9.3 7.4-10.4 [facility] LQRWOBC2969-46-37 10:10:00 Test Item Value Reference Range Interpretation Comments Ca Ion WB (test code = Ca Ion WB) 1.20 1.05-1.25 [facility] TJWXVOX5663-88-66 10:10:00 Test Item Value Reference Range Interpretation Comments Ca Norm WB (test code = Ca Norm WB) 1.20 1.05-1.25 [facility]2020-02-15 10:20:00 Test Item Value Reference Range Interpretation Comments Glucose Lvl (test code = Glucose Lvl) 105 70-99 [facility]2020-02-15 10:20:00 Test Item Value Reference Range Interpretation Comments BUN (test code = BUN) 10 7-22 [facility]2020-02-15 10:20:00 Test Item Value Reference Range Interpretation Comments Creatinine Lvl (test code = Creatinine 0.52 0.50-1.40 Lvl) [facility]2020-02-15 10:20:00 Test Item Value Reference Range Interpretation Comments Sodium Lvl (test code = Sodium Lvl) 140 135-145 [place] 463050-02-15 10:20:00 Test Item Value Reference Range Interpretation Comments Potassium Lvl (test code = Potassium 3.3 3.5-5.1 Lvl) [place] 463050-02-15 10:20:00 Test Item Value Reference Range Interpretation Comments Chloride Lvl (test code = Chloride Lvl) 105 95-109 [place] 463050-02-15 10:20:00 Test Item Value Reference Range Interpretation Comments CO2 (test code = CO2) 29 24-32 [facility]2020-02-15 10:20:00 Test Item Value Reference Range Interpretation Comments Calcium Lvl (test code = Calcium Lvl) 9.1 8.5-10.5 [place] 463050-02-15 10:20:00 Test Item Value Reference Range Interpretation Comments AGAP (test code = AGAP) 9.3 10.0-20.0 [place] 463050-02-15 10:20:00 Test Item Value Reference Range Interpretation Comments eGFR (test code = eGFR) 88 [facility]2020-02-15 10:20:00 Test Item Value Reference Range Interpretation Comments Glucose Lvl (test code = Glucose Lvl) 105 70-99 [facility]2020-02-15 10:20:00 Test Item Value Reference Range Interpretation Comments BUN (test code = BUN) 10 7-22 [place] 463050-02-15 10:20:00 Test Item Value Reference Range Interpretation Comments Creatinine Lvl (test code = Creatinine 0.52 0.50-1.40 Lvl) [facility]2020-02-15 10:20:00 Test Item Value Reference Range Interpretation Comments Sodium Lvl (test code = Sodium Lvl) 140 135-145 [facility]2020-02-15 10:20:00 Test Item Value Reference Range Interpretation Comments Potassium Lvl (test code = Potassium 3.3 3.5-5.1 Lvl) [facility]2020-02-15 10:20:00 Test Item Value Reference Range Interpretation Comments Chloride Lvl (test code = Chloride Lvl) 105 95-109 [facility]2020-02-15 10:20:00 Test Item Value Reference Range Interpretation Comments CO2 (test code = CO2) [facility]2020-02-15 10:20:00 Test Item Value Reference Range Interpretation Comments Calcium Lvl (test code = Calcium Lvl) 9.1 8.5-10.5 [facility]2020-02-15 10:20:00 Test Item Value Reference Range Interpretation Comments AGAP (test code = AGAP) 9.3 10.0-20.0 [facility]2020-02-15 10:20:00 Test Item Value Reference Range Interpretation Comments eGFR (test code = eGFR) 88 [facility]2020-02-15 10:20:00 Test Item Value Reference Range Interpretation Comments Glucose Lvl (test code = Glucose Lvl) 105 70-99 [facility]2020-02-15 10:20:00 Test Item Value Reference Range Interpretation Comments BUN (test code = BUN) 10 - [facility]2020-02-15 10:20:00 Test Item Value Reference Range Interpretation Comments Creatinine Lvl (test code = Creatinine 0.52 0.50-1.40 Lvl) [facility]2020-02-15 10:20:00 Test Item Value Reference Range Interpretation Comments Sodium Lvl (test code = Sodium Lvl) 140 135-145 [facility]2020-02-15 10:20:00 Test Item Value Reference Range Interpretation Comments Potassium Lvl (test code = Potassium 3.3 3.5-5.1 Lvl) [facility]2020-02-15 10:20:00 Test Item Value Reference Range Interpretation Comments Chloride Lvl (test code = Chloride Lvl) 105 95-109 [facility]2020-02-15 10:20:00 Test Item Value Reference Range Interpretation Comments CO2 (test code = CO2) - [facility]2020-02-15 10:20:00 Test Item Value Reference Range Interpretation Comments Calcium Lvl (test code = Calcium Lvl) 9.1 8.5-10.5 [facility]2020-02-15 10:20:00 Test Item Value Reference Range Interpretation Comments AGAP (test code = AGAP) 9.3 10.0-20.0 [place] 463050-02-15 10:20:00 Test Item Value Reference Range Interpretation Comments eGFR (test code = eGFR) 88 [facility]2020-02-15 10:20:00 Test Item Value Reference Range Interpretation Comments Glucose Lvl (test code = Glucose Lvl) 105 70-99 [place] 463050-02-15 10:20:00 Test Item Value Reference Range Interpretation Comments BUN (test code = BUN) 10 7-22 [facility]2020-02-15 10:20:00 Test Item Value Reference Range Interpretation Comments Creatinine Lvl (test code = Creatinine 0.52 0.50-1.40 Lvl) [facility]2020-02-15 10:20:00 Test Item Value Reference Range Interpretation Comments Sodium Lvl (test code = Sodium Lvl) 140 135-145 [place] 463050-02-15 10:20:00 Test Item Value Reference Range Interpretation Comments Potassium Lvl (test code = Potassium 3.3 3.5-5.1 Lvl) [facility]2020-02-15 10:20:00 Test Item Value Reference Range Interpretation Comments Chloride Lvl (test code = Chloride Lvl) 105 95-109 [facility]2020-02-15 10:20:00 Test Item Value Reference Range Interpretation Comments CO2 (test code = CO2) 29 24-32 [facility]2020-02-15 10:20:00 Test Item Value Reference Range Interpretation Comments Calcium Lvl (test code = Calcium Lvl) 9.1 8.5-10.5 [facility]2020-02-15 10:20:00 Test Item Value Reference Range Interpretation Comments AGAP (test code = AGAP) 9.3 10.0-20.0 [facility]2020-02-15 10:20:00 Test Item Value Reference Range Interpretation Comments eGFR (test code = eGFR) 88 [facility]2020-02-15 10:20:00 Test Item Value Reference Range Interpretation Comments Glucose Lvl (test code = Glucose Lvl) 105 70-99 [facility]2020-02-15 10:20:00 Test Item Value Reference Range Interpretation Comments BUN (test code = BUN) 10 - [facility]2020-02-15 10:20:00 Test Item Value Reference Range Interpretation Comments Creatinine Lvl (test code = Creatinine 0.52 0.50-1.40 Lvl) [facility]2020-02-15 10:20:00 Test Item Value Reference Range Interpretation Comments Sodium Lvl (test code = Sodium Lvl) 140 135-145 [facility]2020-02-15 10:20:00 Test Item Value Reference Range Interpretation Comments Potassium Lvl (test code = Potassium 3.3 3.5-5.1 Lvl) [facility]2020-02-15 10:20:00 Test Item Value Reference Range Interpretation Comments Chloride Lvl (test code = Chloride Lvl) 105 95-109 [facility]2020-02-15 10:20:00 Test Item Value Reference Range Interpretation Comments CO2 (test code = CO2) 29 24-32 [facility]2020-02-15 10:20:00 Test Item Value Reference Range Interpretation Comments Calcium Lvl (test code = Calcium Lvl) 9.1 8.5-10.5 [facility]2020-02-15 10:20:00 Test Item Value Reference Range Interpretation Comments AGAP (test code = AGAP) 9.3 10.0-20.0 [facility]2020-02-15 10:20:00 Test Item Value Reference Range Interpretation Comments eGFR (test code = eGFR) 88 [facility]2020-02-15 10:20:00 Test Item Value Reference Range Interpretation Comments Glucose Lvl (test code = Glucose Lvl) 105 70-99 [facility]2020-02-15 10:20:00 Test Item Value Reference Range Interpretation Comments BUN (test code = BUN) 10 - [facility]2020-02-15 10:20:00 Test Item Value Reference Range Interpretation Comments Creatinine Lvl (test code = Creatinine 0.52 0.50-1.40 Lvl) [facility]2020-02-15 10:20:00 Test Item Value Reference Range Interpretation Comments Sodium Lvl (test code = Sodium Lvl) 140 135-145 [facility]2020-02-15 10:20:00 Test Item Value Reference Range Interpretation Comments Potassium Lvl (test code = Potassium 3.3 3.5-5.1 Lvl) [place] 463050-02-15 10:20:00 Test Item Value Reference Range Interpretation Comments Chloride Lvl (test code = Chloride Lvl) 105 95-109 [place] [address]-02-15 10:20:00 Test Item Value Reference Range Interpretation Comments CO2 (test code = CO2) 29 24-32 [place] [address]-02-15 10:20:00 Test Item Value Reference Range Interpretation Comments Calcium Lvl (test code = Calcium Lvl) 9.1 8.5-10.5 [place] [address]-02-15 10:20:00 Test Item Value Reference Range Interpretation Comments AGAP (test code = AGAP) 9.3 10.0-20.0 [place] [address]-02-15 10:20:00 Test Item Value Reference Range Interpretation Comments eGFR (test code = eGFR) 88 [place] [address]-02-15 07:34:00 Test Item Value Reference Range Interpretation Comments Magnesium Lvl (test code = Magnesium 2.0 1.8-2.4 Lvl) [place] [address]-02-15 07:34:00 Test Item Value Reference Range Interpretation Comments Segs (test code = Segs) 71.2 45.0-75.0 [place] [address]-02-15 07:34:00 Test Item Value Reference Range Interpretation Comments Lymphocytes (test code = Lymphocytes) 19.2 20.0-40.0 [place] [address]-02-15 07:34:00 Test Item Value Reference Range Interpretation Comments Monocytes (test code = Monocytes) 7.6 2.0-12.0 [place] [address]-02-15 07:34:00 Test Item Value Reference Range Interpretation Comments Eosinophils (test code = 1.6 See_Comment [A utomated message] The Eosinophils) system which ge nerated this result tra nsmitted reference range : <=4.0. The reference r natasha was not used to int erpret this result as normal/abnormal . [place] [address]-02-15 07:34:00 Test Item Value Reference Range Interpretation Comments Basophils (test code = 0.4 See_Comment [Aut omated message] The Basophils) system which ge nerated this result tra nsmitted reference range : <=1.0. The reference r natasha was not used to int erpret this result as normal/abnormal . [place] [address]-02-15 07:34:00 Test Item Value Reference Range Interpretation Comments Neutrophils # (test code = Neutrophils 5.2 1.5-8.1 #) [place] 854380-02-15 07:34:00 Test Item Value Reference Range Interpretation Comments Lymphocytes # (test code = Lymphocytes 1.4 1.0-5.5 #) [place] [address]-02-15 07:34:00 Test Item Value Reference Range Interpretation Comments Monocytes # (test code 0.6 See_Comment [Aut omated message] The = Monocytes #) system which generated this result tra nsmitted reference range : <=0.8. The reference r natasha was not used to int erpret this result as normal/abnormal . [place] [address]-02-15 07:34:00 Test Item Value Reference Range Interpretation Comments Eosinophils # (test code 0.1 See_Comment [A utomated message] The = Eosinophils #) system whic h generated this result tra nsmitted reference range : <=0.5. The reference r natasha was not used to int erpret this result as normal/abnormal . [place] 854380-02-15 07:34:00 Test Item Value Reference Range Interpretation Comments WBC (test code = WBC) 7.4 3.7-10.4 [place] [address]-02-15 07:34:00 Test Item Value Reference Range Interpretation Comments RBC (test code = RBC) 3.73 4.20-5.40 [place] [address]-02-15 07:34:00 Test Item Value Reference Range Interpretation Comments Hgb (test code = Hgb) 12.4 12.0-16.0 [place] [address]-02-15 07:34:00 Test Item Value Reference Range Interpretation Comments Hct (test code = Hct) 36.3 36.0-48.0 [place] [address]-02-15 07:34:00 Test Item Value Reference Range Interpretation Comments MCV (test code = MCV) 97.2 80.0-98.0 [place] [address]-02-15 07:34:00 Test Item Value Reference Range Interpretation Comments MCH (test code = MCH) 33.4 pg 27.0-31.0 [facility]ownLehxludMZVZSJPDMS3356-02-17 07:34:00 Test Item Value Reference Range Interpretation Comments MCHC (test code = MCHC) 34.3 32.0-36.0 [facility] UptownGanftplFKLPXIXDRT3694-87-88 07:34:00 Test Item Value Reference Range Interpretation Comments RDW (test code = RDW) 13.6 11.5-14.5 [facility] UptownLcxzsinVLHJRCLWWN5569-66-80 07:34:00 Test Item Value Reference Range Interpretation Comments Platelet (test code = Platelet) 191 133-450 [facility]GGKPGQHHQI4279-31-66 07:34:00 Test Item Value Reference Range Interpretation Comments MPV (test code = MPV) 10.1 7.4-10.4 [facility]ptownannPARATHYROID PRPNIWM6375-59-86 07:34:00 Test Item Value Reference Range Interpretation Comments Ca Ion WB (test code = Ca Ion WB) 1.02 1.05-1.25 [facility]ownannPARATHYROID LEDFUXO4175-10-13 07:34:00 Test Item Value Reference Range Interpretation Comments Ca Norm WB (test code = Ca Norm WB) 1.04 1.05-1.25 [facility]ownannCHEM [id number] 07:34:00 Test Item Value Reference Range Interpretation Comments Magnesium Lvl (test code = Magnesium 2.0 1.8-2.4 Lvl) [facility]bn[facility]bqZLAAYIFLDP6810-85-41 07:34:00 Test Item Value Reference Range Interpretation Comments Segs (test code = Segs) 71.2 45.0-75.0 [facility] UptownVhsibykXMZZWEXCJV6141-28-46 07:34:00 Test Item Value Reference Range Interpretation Comments Lymphocytes (test code = Lymphocytes) 19.2 20.0-40.0 [facility] UptownAvyryhqKRJVZCNQCI6593-29-39 07:34:00 Test Item Value Reference Range Interpretation Comments Monocytes (test code = Monocytes) 7.6 2.0-12.0 [facility]AikhstnHBZWBPDWHF6183-86-24 07:34:00 Test Item Value Reference Range Interpretation Comments Eosinophils (test code = 1.6 See_Comment [A utomated message] The Eosinophils) system which ge nerated this result tra nsmitted reference range : <=4.0. The reference r natasha was not used to int erpret this result as normal/abnormal . [place] [address]-02-15 07:34:00 Test Item Value Reference Range Interpretation Comments Basophils (test code = 0.4 See_Comment [Aut omated message] The Basophils) system which ge nerated this result tra nsmitted reference range : <=1.0. The reference r natasha was not used to int erpret this result as normal/abnormal . [place] 854380-02-15 07:34:00 Test Item Value Reference Range Interpretation Comments Neutrophils # (test code = Neutrophils 5.2 1.5-8.1 #) [place] 854380-02-15 07:34:00 Test Item Value Reference Range Interpretation Comments Lymphocytes # (test code = Lymphocytes 1.4 1.0-5.5 #) [place] [address]-02-15 07:34:00 Test Item Value Reference Range Interpretation Comments Monocytes # (test code 0.6 See_Comment [Aut omated message] The = Monocytes #) system which generated this result tra nsmitted reference range : <=0.8. The reference r natasha was not used to int erpret this result as normal/abnormal . [place] [address]-02-15 07:34:00 Test Item Value Reference Range Interpretation Comments Eosinophils # (test code 0.1 See_Comment [A utomated message] The = Eosinophils #) system whic h generated this result tra nsmitted reference range : <=0.5. The reference r natasha was not used to int erpret this result as normal/abnormal . [place] 854380-02-15 07:34:00 Test Item Value Reference Range Interpretation Comments WBC (test code = WBC) 7.4 3.7-10.4 [place] [address]-02-15 07:34:00 Test Item Value Reference Range Interpretation Comments RBC (test code = RBC) 3.73 4.20-5.40 [place] [address]-02-15 07:34:00 Test Item Value Reference Range Interpretation Comments Hgb (test code = Hgb) 12.4 12.0-16.0 [place] [address]-02-15 07:34:00 Test Item Value Reference Range Interpretation Comments Hct (test code = Hct) 36.3 36.0-48.0 [facility] UuvdxouSEKYRGFVOU0779-08-40 07:34:00 Test Item Value Reference Range Interpretation Comments MCV (test code = MCV) 97.2 80.0-98.0 [facility] ZggrbdpLGKEJXAXCZ9732-86-38 07:34:00 Test Item Value Reference Range Interpretation Comments MCH (test code = MCH) 33.4 pg 27.0-31.0 [facility] OnthigcLPWYRBAMSS7325-47-83 07:34:00 Test Item Value Reference Range Interpretation Comments MCHC (test code = MCHC) 34.3 32.0-36.0 [facility] GyjnersNZSUALADSX5253-47-21 07:34:00 Test Item Value Reference Range Interpretation Comments RDW (test code = RDW) 13.6 11.5-14.5 [facility] UptownAkqeelhYUJZUURUCD9525-87-22 07:34:00 Test Item Value Reference Range Interpretation Comments Platelet (test code = Platelet) 191 133-450 [facility] DjjshznMHZIWYNCBP4832-58-39 07:34:00 Test Item Value Reference Range Interpretation Comments MPV (test code = MPV) 10.1 7.4-10.4 [facility]PAR[facility] [id number] 07:34:00 Test Item Value Reference Range Interpretation Comments Ca Ion WB (test code = Ca Ion WB) 1.02 1.05-1.25 [facility]annPAR[facility]YRO[facility] QSDZQAL0240-77-20 07:34:00 Test Item Value Reference Range Interpretation Comments Ca Norm WB (test code = Ca Norm WB) 1.04 1.05-1.25 [facility]ownannCHEM [id number] 07:34:00 Test Item Value Reference Range Interpretation Comments Magnesium Lvl (test code = Magnesium 2.0 1.8-2.4 Lvl) [facility] UptownKaolgudFFADIIVRQG7608-70-99 07:34:00 Test Item Value Reference Range Interpretation Comments Segs (test code = Segs) 71.2 45.0-75.0 [facility] UptownAguxoqxAVDUVZCWEL6651-41-33 07:34:00 Test Item Value Reference Range Interpretation Comments Lymphocytes (test code = Lymphocytes) 19.2 20.0-40.0 [facility] XvpyeynKERMNVXLGD2767-78-39 07:34:00 Test Item Value Reference Range Interpretation Comments Monocytes (test code = Monocytes) 7.6 2.0-12.0 [place] [address]-02-15 07:34:00 Test Item Value Reference Range Interpretation Comments Eosinophils (test code = 1.6 See_Comment [A utomated message] The Eosinophils) system which ge nerated this result tra nsmitted reference range : <=4.0. The reference r natasha was not used to int erpret this result as normal/abnormal . [place] [address]-02-15 07:34:00 Test Item Value Reference Range Interpretation Comments Basophils (test code = 0.4 See_Comment [Aut omated message] The Basophils) system which ge nerated this result tra nsmitted reference range : <=1.0. The reference r natasha was not used to int erpret this result as normal/abnormal . [place] [address]-02-15 07:34:00 Test Item Value Reference Range Interpretation Comments Neutrophils # (test code = Neutrophils 5.2 1.5-8.1 #) [place] [address]-02-15 07:34:00 Test Item Value Reference Range Interpretation Comments Lymphocytes # (test code = Lymphocytes 1.4 1.0-5.5 #) [place] [address]-02-15 07:34:00 Test Item Value Reference Range Interpretation Comments Monocytes # (test code 0.6 See_Comment [Aut omated message] The = Monocytes #) system which generated this result tra nsmitted reference range : <=0.8. The reference r natasha was not used to int erpret this result as normal/abnormal . [place] [address]-02-15 07:34:00 Test Item Value Reference Range Interpretation Comments Eosinophils # (test code 0.1 See_Comment [A utomated message] The = Eosinophils #) system whic h generated this result tra nsmitted reference range : <=0.5. The reference r natasha was not used to int erpret this result as normal/abnormal . [place] [address]-02-15 07:34:00 Test Item Value Reference Range Interpretation Comments WBC (test code = WBC) 7.4 3.7-10.4 [place] [address]-02-15 07:34:00 Test Item Value Reference Range Interpretation Comments RBC (test code = RBC) 3.73 4.20-5.40 [facility] UptownInktuvmABWWUOYUGT2469-27-92 07:34:00 Test Item Value Reference Range Interpretation Comments Hgb (test code = Hgb) 12.4 12.0-16.0 [facility] UptownGbxtyvsTRYWWQEQVG8589-45-45 07:34:00 Test Item Value Reference Range Interpretation Comments Hct (test code = Hct) 36.3 36.0-48.0 [facility] UptownBxqeijsUVIELKTBJY3537-67-92 07:34:00 Test Item Value Reference Range Interpretation Comments MCV (test code = MCV) 97.2 80.0-98.0 [facility] UptownEqweqsiTMEBDJCDMX0798-08-78 07:34:00 Test Item Value Reference Range Interpretation Comments MCH (test code = MCH) 33.4 pg 27.0-31.0 [facility] HospitalZphfyzlSCCQFHOENJ8330-55-41 07:34:00 Test Item Value Reference Range Interpretation Comments MCHC (test code = MCHC) 34.3 32.0-36.0 [facility] UptownGruzeikOMJYYKJHKZ2115-27-87 07:34:00 Test Item Value Reference Range Interpretation Comments RDW (test code = RDW) 13.6 11.5-14.5 [facility] UptownKhxyczlKMYJFLHQYT2124-54-97 07:34:00 Test Item Value Reference Range Interpretation Comments Platelet (test code = Platelet) 191 133-450 [facility] HospitalSumnlopEPZCAVFDQM3783-93-65 07:34:00 Test Item Value Reference Range Interpretation Comments MPV (test code = MPV) 10.1 7.4-10.4 [facility]ptownannPARATHYROID LFCETHD4165-04-26 07:34:00 Test Item Value Reference Range Interpretation Comments Ca Ion WB (test code = Ca Ion WB) 1.02 1.05-1.25 [facility]ptownannPARATHYROID XJLARHF3527-23-28 07:34:00 Test Item Value Reference Range Interpretation Comments Ca Norm WB (test code = Ca Norm WB) 1.04 1.05-1.25 [facility]ownannCHEM BXBHS8928-71-81 07:34:00 Test Item Value Reference Range Interpretation Comments Magnesium Lvl (test code = Magnesium 2.0 1.8-2.4 Lvl) [facility] UptownPlidyosYFDWMUWQXT4753-16-36 07:34:00 Test Item Value Reference Range Interpretation Comments Segs (test code = Segs) 71.2 45.0-75.0 [address]02-15 07:34:00 Test Item Value Reference Range Interpretation Comments Lymphocytes (test code = Lymphocytes) 19.2 20.0-40.0 [address]02-15 07:34:00 Test Item Value Reference Range Interpretation Comments Monocytes (test code = Monocytes) 7.6 2.0-12.0 [place] [address]-02-15 07:34:00 Test Item Value Reference Range Interpretation Comments Eosinophils (test code = 1.6 See_Comment [A utomated message] The Eosinophils) system which ge nerated this result tra nsmitted reference range : <=4.0. The reference r natasha was not used to int erpret this result as normal/abnormal . [address]02-15 07:34:00 Test Item Value Reference Range Interpretation Comments Basophils (test code = 0.4 See_Comment [Aut omated message] The Basophils) system which ge nerated this result tra nsmitted reference range : <=1.0. The reference r natasha was not used to int erpret this result as normal/abnormal . [address]02-15 07:34:00 Test Item Value Reference Range Interpretation Comments Neutrophils # (test code = Neutrophils 5.2 1.5-8.1 #) [address]02-15 07:34:00 Test Item Value Reference Range Interpretation Comments Lymphocytes # (test code = Lymphocytes 1.4 1.0-5.5 #) [address]02-15 07:34:00 Test Item Value Reference Range Interpretation Comments Monocytes # (test code 0.6 See_Comment [Aut omated message] The = Monocytes #) system which generated this result tra nsmitted reference range : <=0.8. The reference r natasha was not used to int erpret this result as normal/abnormal . [place] [address]-02-15 07:34:00 Test Item Value Reference Range Interpretation Comments Eosinophils # (test code 0.1 See_Comment [A utomated message] The = Eosinophils #) system wh h generated this result tra nsmitted reference range : <=0.5. The reference r natasha was not used to int erpret this result as normal/abnormal . [facility] LancasterAvuatiwUHPZCFVCQB3570-79-79 07:34:00 Test Item Value Reference Range Interpretation Comments WBC (test code = WBC) 7.4 3.7-10.4 [facility] LancasterPaguxxkUYYYWOESAZ1668-74-51 07:34:00 Test Item Value Reference Range Interpretation Comments RBC (test code = RBC) 3.73 4.20-5.40 [place] 854380-02-15 07:34:00 Test Item Value Reference Range Interpretation Comments Hgb (test code = Hgb) 12.4 12.0-16.0 [facility] LancasterSwuqerlQGLMENEMDJ6281-30-05 07:34:00 Test Item Value Reference Range Interpretation Comments Hct (test code = Hct) 36.3 36.0-48.0 [facility] LancasterVgsseuyGEHOBJGWMM1113-50-88 07:34:00 Test Item Value Reference Range Interpretation Comments MCV (test code = MCV) 97.2 80.0-98.0 [place] 854380-02-15 07:34:00 Test Item Value Reference Range Interpretation Comments MCH (test code = MCH) 33.4 pg 27.0-31.0 [facility] LancasterLofdecmFEFDCKLXJU3448-70-98 07:34:00 Test Item Value Reference Range Interpretation Comments MCHC (test code = MCHC) 34.3 32.0-36.0 [facility] LancasterQzhhopzATRLXIMPAV9469-41-30 07:34:00 Test Item Value Reference Range Interpretation Comments RDW (test code = RDW) 13.6 11.5-14.5 [facility] LancasterWqgmmzaZQKPPSZIYE9549-20-62 07:34:00 Test Item Value Reference Range Interpretation Comments Platelet (test code = Platelet) 191 133-450 [facility] LancasterUmynwimYSVMHAUEAX7641-71-32 07:34:00 Test Item Value Reference Range Interpretation Comments MPV (test code = MPV) 10.1 7.4-10.4 [facility]PAR[facility]ID JDUQZKA2560-10-94 07:34:00 Test Item Value Reference Range Interpretation Comments Ca Ion WB (test code = Ca Ion WB) 1.02 1.05-1.25 [facility] [id number] 07:34:00 Test Item Value Reference Range Interpretation Comments Ca Norm WB (test code = Ca Norm WB) 1.04 1.05-1.25 [facility]2020-02-15 07:34:00 Test Item Value Reference Range Interpretation Comments Magnesium Lvl (test code = Magnesium 2.0 1.8-2.4 Lvl) [facility] LancasterAgaixhpCKXESDWZRI8666-60-85 07:34:00 Test Item Value Reference Range Interpretation Comments Segs (test code = Segs) 71.2 45.0-75.0 [facility] LancasterYjjnfipUPIDYJKKOK4251-86-68 07:34:00 Test Item Value Reference Range Interpretation Comments Lymphocytes (test code = Lymphocytes) 19.2 20.0-40.0 [facility] LancasterPzaxamfLZFBGRNUSG3300-09-13 07:34:00 Test Item Value Reference Range Interpretation Comments Monocytes (test code = Monocytes) 7.6 2.0-12.0 [facility] LancasterVwjbjlbIMNJVEPMYH8320-15-85 07:34:00 Test Item Value Reference Range Interpretation Comments Eosinophils (test code = 1.6 See_Comment [A utomated message] The Eosinophils) system which ge nerated this result tra nsmitted reference range : <=4.0. The reference r natasha was not used to int erpret this result as normal/abnormal . [facility] LancasterSuldsjaQMRASKSKIP6593-45-97 07:34:00 Test Item Value Reference Range Interpretation Comments Basophils (test code = 0.4 See_Comment [Aut omated message] The Basophils) system which ge nerated this result tra nsmitted reference range : <=1.0. The reference r natasha was not used to int erpret this result as normal/abnormal . [facility] LancasterAxhmmxkHWGJXTTSVV1772-81-82 07:34:00 Test Item Value Reference Range Interpretation Comments Neutrophils # (test code = Neutrophils 5.2 1.5-8.1 #) [place]4380-02-15 07:34:00 Test Item Value Reference Range Interpretation Comments Lymphocytes # (test code = Lymphocytes 1.4 1.0-5.5 #) [place] [address]-02-15 07:34:00 Test Item Value Reference Range Interpretation Comments Monocytes # (test code 0.6 See_Comment [Aut omated message] The = Monocytes #) system which generated this result tra nsmitted reference range : <=0.8. The reference r natasha was not used to int erpret this result as normal/abnormal . [facility] LancasterIpndozkPQZEPDHYPS0804-23-50 07:34:00 Test Item Value Reference Range Interpretation Comments Eosinophils # (test code 0.1 See_Comment [A utomated message] The = Eosinophils #) system whic h generated this result tra nsmitted reference range : <=0.5. The reference r natasha was not used to int erpret this result as normal/abnormal . [facility] LancasterSanurfjILMDCLOSWI6369-48-12 07:34:00 Test Item Value Reference Range Interpretation Comments WBC (test code = WBC) 7.4 3.7-10.4 [facility] LancasterAvdmhkpOKOHIFMNGF3872-33-48 07:34:00 Test Item Value Reference Range Interpretation Comments RBC (test code = RBC) 3.73 4.20-5.40 [facility] LancasterWhbagwpORRCCWMHXF9611-09-74 07:34:00 Test Item Value Reference Range Interpretation Comments Hgb (test code = Hgb) 12.4 12.0-16.0 [facility] LancasterKgphwzuFDNOKEDNPL7423-04-75 07:34:00 Test Item Value Reference Range Interpretation Comments Hct (test code = Hct) 36.3 36.0-48.0 [facility] LancasterZsmpomaWQFTCBKOHV1223-46-95 07:34:00 Test Item Value Reference Range Interpretation Comments MCV (test code = MCV) 97.2 80.0-98.0 [facility] LancasterLdbolrvDSGJDTDDSE0750-25-20 07:34:00 Test Item Value Reference Range Interpretation Comments MCH (test code = MCH) 33.4 pg 27.0-31.0 [facility]omREISRCXBTU6672-90-42 07:34:00 Test Item Value Reference Range Interpretation Comments MCHC (test code = MCHC) 34.3 32.0-36.0 [facility] LancasterQljjetkOMCDVMVMIF5044-89-90 07:34:00 Test Item Value Reference Range Interpretation Comments RDW (test code = RDW) 13.6 11.5-14.5 [facility] LancasterPndizomEDVNOLLVTT5894-02-77 07:34:00 Test Item Value Reference Range Interpretation Comments Platelet (test code = Platelet) 191 133-450 [facility] LancasterVvzoghzPVESHKMQDO3189-31-75 07:34:00 Test Item Value Reference Range Interpretation Comments MPV (test code = MPV) 10.1 7.4-10.4 [facility] ZDVVZER7359-54-87 07:34:00 Test Item Value Reference Range Interpretation Comments Ca Ion WB (test code = Ca Ion WB) 1.02 1.05-1.25 [facility] HospitalPARATHYROID FVHUPKJ6933-42-93 07:34:00 Test Item Value Reference Range Interpretation Comments Ca Norm WB (test code = Ca Norm WB) 1.04 1.05-1.25 [facility]ownannCHEM PEVWN5375-83-91 07:34:00 Test Item Value Reference Range Interpretation Comments Magnesium Lvl (test code = Magnesium 2.0 1.8-2.4 Lvl) [facility] LancasterTyvvzoiDTEMCDIMCG6662-91-45 07:34:00 Test Item Value Reference Range Interpretation Comments Segs (test code = Segs) 71.2 45.0-75.0 [facility] LancasterOjxcdyoBHWBRGXUIU7844-21-78 07:34:00 Test Item Value Reference Range Interpretation Comments Lymphocytes (test code = Lymphocytes) 19.2 20.0-40.0 [facility] LancasterCzzecjtHVSNVOQOZL2990-24-39 07:34:00 Test Item Value Reference Range Interpretation Comments Monocytes (test code = Monocytes) 7.6 2.0-12.0 [facility] LancasterEezlozsMGFQMYZVIB8104-51-60 07:34:00 Test Item Value Reference Range Interpretation Comments Eosinophils (test code = 1.6 See_Comment [A utomated message] The Eosinophils) system which ge nerated this result tra nsmitted reference range : <=4.0. The reference r natasha was not used to int erpret this result as normal/abnormal . [facility] LancasterLhhomyfNLAOSUVGHT9108-12-13 07:34:00 Test Item Value Reference Range Interpretation Comments Basophils (test code = 0.4 See_Comment [Aut omated message] The Basophils) system which ge nerated this result tra nsmitted reference range : <=1.0. The reference r natasha was not used to int erpret this result as normal/abnormal . [facility] LancasterVlypoelZCPKBAVDPI6097-29-66 07:34:00 Test Item Value Reference Range Interpretation Comments Neutrophils # (test code = Neutrophils 5.2 1.5-8.1 #) [facility] LancasterHbubqsqOUCRXINHIK6086-44-40 07:34:00 Test Item Value Reference Range Interpretation Comments Lymphocytes # (test code = Lymphocytes 1.4 1.0-5.5 #) [facility] LancasterDjhzxdwTMJPXCWYXN6092-03-31 07:34:00 Test Item Value Reference Range Interpretation Comments Monocytes # (test code 0.6 See_Comment [Aut omated message] The = Monocytes #) system which generated this result tra nsmitted reference range : <=0.8. The reference r natasha was not used to int erpret this result as normal/abnormal . [facility] LancasterFoounecOEYAHEQCFR7978-03-40 07:34:00 Test Item Value Reference Range Interpretation Comments Eosinophils # (test code 0.1 See_Comment [A utomated message] The = Eosinophils #) system whic h generated this result tra nsmitted reference range : <=0.5. The reference r natasha was not used to int erpret this result as normal/abnormal . [facility] LancasterBwfkukoGIHMXJSPWA3913-50-05 07:34:00 Test Item Value Reference Range Interpretation Comments WBC (test code = WBC) 7.4 3.7-10.4 [facility] LancasterBjhooytCRWWXUEOQA5474-85-47 07:34:00 Test Item Value Reference Range Interpretation Comments RBC (test code = RBC) 3.73 4.20-5.40 [place] [address]-02-15 07:34:00 Test Item Value Reference Range Interpretation Comments Hgb (test code = Hgb) 12.4 12.0-16.0 [place] [address]-02-15 07:34:00 Test Item Value Reference Range Interpretation Comments Hct (test code = Hct) 36.3 36.0-48.0 [place] [address]-02-15 07:34:00 Test Item Value Reference Range Interpretation Comments MCV (test code = MCV) 97.2 80.0-98.0 [place] [address]-02-15 07:34:00 Test Item Value Reference Range Interpretation Comments MCH (test code = MCH) 33.4 pg 27.0-31.0 [place] [address]-02-15 07:34:00 Test Item Value Reference Range Interpretation Comments MCHC (test code = MCHC) 34.3 32.0-36.0 [place] [address]-02-15 07:34:00 Test Item Value Reference Range Interpretation Comments RDW (test code = RDW) 13.6 11.5-14.5 [place] 854380-02-15 07:34:00 Test Item Value Reference Range Interpretation Comments Platelet (test code = Platelet) 191 133-450 [facility] HospitalDmcfpqmQSUILIBJZJ8300-12-07 07:34:00 Test Item Value Reference Range Interpretation Comments MPV (test code = MPV) 10.1 7.4-10.4 [facility] UptowneduardoPARATHYROID UQOBZHB8910-54-83 07:34:00 Test Item Value Reference Range Interpretation Comments Ca Ion WB (test code = Ca Ion WB) 1.02 1.05-1.25 [facility] UptownannPARATHYROID CDFTKHX1113-48-86 07:34:00 Test Item Value Reference Range Interpretation Comments Ca Norm WB (test code = Ca Norm WB) 1.04 1.05-1.25 [facility] UptownVolleyCARVint TrainingAC MRVBARX7582-81-07 14:22:00 Test Item Value Reference Range Interpretation Comments Troponin-I (test code 0.19 See_Comment [Auto mated message] The = Troponin-I) system which g enerated this result transmit evelio reference range : <=0.40. The reference r natasha was not used to interpr et this result as nataliia l/abnormal. [facility] [employer]2020-02-14 14:22:00 Test Item Value Reference Range Interpretation Comments Troponin-I (test code 0.19 See_Comment [Auto mated message] The = Troponin-I) system which g enerated this result transmit evelio reference range : <=0.40. The reference r natasha was not used to interpr et this result as nataliia l/abnormal. [facility] [employer]2020-02-14 14:22:00 Test Item Value Reference Range Interpretation Comments Troponin-I (test code 0.19 See_Comment [Auto mated message] The = Troponin-I) system which g enerated this result transmit evelio reference range : <=0.40. The reference r natasha was not used to interpr et this result as nataliia l/abnormal. [facility] [employer]2020-02-14 14:22:00 Test Item Value Reference Range Interpretation Comments Troponin-I (test code 0.19 See_Comment [Auto mated message] The = Troponin-I) system which g enerated this result transmit evelio reference range : <=0.40. The reference r natasha was not used to interpr et this result as nataliia l/abnormal. [facility] YNFNULM5216-95-75 14:22:00 Test Item Value Reference Range Interpretation Comments Troponin-I (test code 0.19 See_Comment [Auto mated message] The = Troponin-I) system which g enerated this result transmit evelio reference range : <=0.40. The reference r natasha was not used to interpr et this result as nataliia l/abnormal. [facility] ISBADJD4909-98-13 14:22:00 Test Item Value Reference Range Interpretation Comments Troponin-I (test code 0.19 See_Comment [Auto mated message] The = Troponin-I) system which g enerated this result transmit evelio reference range : <=0.40. The reference r natasha was not used to interpr et this result as nataliia l/abnormal. [facility] HospitalVfhzyviCWZSBEEMTF9079-54-80 11:04:00 Test Item Value Reference Range Interpretation Comments Segs (test code = Segs) 70.0 45.0-75.0 [facility] HospitalWyepbbmTXYKOKVVRT5659-14-51 11:04:00 Test Item Value Reference Range Interpretation Comments Lymphocytes (test code = Lymphocytes) 19.6 20.0-40.0 [facility] HospitalVwahtciZVZESODZYK9087-62-18 11:04:00 Test Item Value Reference Range Interpretation Comments Monocytes (test code = Monocytes) 8.7 2.0-12.0 [facility] UptownJwqtrwmQMZYVOZUNZ6881-41-09 11:04:00 Test Item Value Reference Range Interpretation Comments Eosinophils (test code = 1.3 See_Comment [A utomated message] The Eosinophils) system which ge nerated this result tra nsmitted reference range : <=4.0. The reference r natasha was not used to int erpret this result as normal/abnormal . [facility] UptownYxvdydmERDENWWJLG9748-77-24 11:04:00 Test Item Value Reference Range Interpretation Comments Basophils (test code = 0.4 See_Comment [Aut omated message] The Basophils) system which ge nerated this result tra nsmitted reference range : <=1.0. The reference r natasha was not used to int erpret this result as normal/abnormal . [facility] UptownNjeuploDNQTTIPOBF3971-44-47 11:04:00 Test Item Value Reference Range Interpretation Comments Neutrophils # (test code = Neutrophils 5.0 1.5-8.1 #) [facility] LancasterMztgzosRQLIPBSZTI3926-36-33 11:04:00 Test Item Value Reference Range Interpretation Comments Lymphocytes # (test code = Lymphocytes 1.4 1.0-5.5 #) [facility] LancasterWhjkedkKWESKBTYPG5990-85-99 11:04:00 Test Item Value Reference Range Interpretation Comments Monocytes # (test code 0.6 See_Comment [Aut omated message] The = Monocytes #) system which generated this result tra nsmitted reference range : <=0.8. The reference r natasha was not used to int erpret this result as normal/abnormal . [facility] LancasterKdmvopjADKHDQISPZ4121-80-36 11:04:00 Test Item Value Reference Range Interpretation Comments Eosinophils # (test code 0.1 See_Comment [A utomated message] The = Eosinophils #) system whic h generated this result tra nsmitted reference range : <=0.5. The reference r natasha was not used to int erpret this result as normal/abnormal . [facility] LancasterBuvowxjSXLRYWYNPB0576-81-90 11:04:00 Test Item Value Reference Range Interpretation Comments WBC (test code = WBC) 7.1 3.7-10.4 [facility] LancasterJgzrdzyDEAVMQOCRF4351-59-78 11:04:00 Test Item Value Reference Range Interpretation Comments RBC (test code = RBC) 3.72 4.20-5.40 [facility] LancasterPbiscctOWWJFBBKFX3722-36-10 11:04:00 Test Item Value Reference Range Interpretation Comments Hgb (test code = Hgb) 12.4 12.0-16.0 [facility] LancasterVkchsjxWSZESAELPG6662-49-68 11:04:00 Test Item Value Reference Range Interpretation Comments Hct (test code = Hct) 36.6 36.0-48.0 [facility] LancasterJiqkubwRJARBNRBFX5277-66-56 11:04:00 Test Item Value Reference Range Interpretation Comments MCV (test code = MCV) 98.4 80.0-98.0 [facility] LancasterXxtdlhbPLBUHPTPRX2824-64-06 11:04:00 Test Item Value Reference Range Interpretation Comments MCH (test code = MCH) 33.4 pg 27.0-31.0 [place] 854380-02-14 11:04:00 Test Item Value Reference Range Interpretation Comments MCHC (test code = MCHC) 34.0 32.0-36.0 [place] [address]-02-14 11:04:00 Test Item Value Reference Range Interpretation Comments RDW (test code = RDW) 13.1 11.5-14.5 [facility] LancasterDznxlmcCOFNMIAUHC0474-51-98 11:04:00 Test Item Value Reference Range Interpretation Comments Platelet (test code = Platelet) 202 133-450 [place] 854380-02-14 11:04:00 Test Item Value Reference Range Interpretation Comments MPV (test code = MPV) 8.6 7.4-10.4 [facility] LancasterLwxugqgQGCOWAYGBD1265-00-30 11:04:00 Test Item Value Reference Range Interpretation Comments Segs (test code = Segs) 70.0 45.0-75.0 [facility] LancasterGkhyvwhLQAQHFNGGY4879-93-28 11:04:00 Test Item Value Reference Range Interpretation Comments Lymphocytes (test code = Lymphocytes) 19.6 20.0-40.0 [facility] LancasterZvovhvfRSBQCUPBWD7470-53-69 11:04:00 Test Item Value Reference Range Interpretation Comments Monocytes (test code = Monocytes) 8.7 2.0-12.0 [facility] LancasterEwmpdztJTEGXHFVRD0764-24-33 11:04:00 Test Item Value Reference Range Interpretation Comments Eosinophils (test code = 1.3 See_Comment [A utomated message] The Eosinophils) system which ge nerated this result tra nsmitted reference range : <=4.0. The reference r natasha was not used to int erpret this result as normal/abnormal . [facility] LancasterHrjeievAYPDOAIFWZ0340-21-59 11:04:00 Test Item Value Reference Range Interpretation Comments Basophils (test code = 0.4 See_Comment [Aut omated message] The Basophils) system which ge nerated this result tra nsmitted reference range : <=1.0. The reference r natasha was not used to int erpret this result as normal/abnormal . [facility] LancasterTjjfrbfTLVXQIFCPO3666-02-67 11:04:00 Test Item Value Reference Range Interpretation Comments Neutrophils # (test code = Neutrophils 5.0 1.5-8.1 #) [facility] LancasterXndkyjaDMKEQNEBJH8894-02-62 11:04:00 Test Item Value Reference Range Interpretation Comments Lymphocytes # (test code = Lymphocytes 1.4 1.0-5.5 #) [facility] LancasterGrbqosqOZOWDALPLE1249-37-52 11:04:00 Test Item Value Reference Range Interpretation Comments Monocytes # (test code 0.6 See_Comment [Aut omated message] The = Monocytes #) system which generated this result tra nsmitted reference range : <=0.8. The reference r natasha was not used to int erpret this result as normal/abnormal . [facility] LancasterStbesbtLBANSHSDMX9258-21-35 11:04:00 Test Item Value Reference Range Interpretation Comments Eosinophils # (test code 0.1 See_Comment [A utomated message] The = Eosinophils #) system whic h generated this result tra nsmitted reference range : <=0.5. The reference r natasha was not used to int erpret this result as normal/abnormal . [facility] LancasterDlxzmvgHMNLXKLHSM9341-56-33 11:04:00 Test Item Value Reference Range Interpretation Comments WBC (test code = WBC) 7.1 3.7-10.4 [facility] LancasterCwvajyhIGKGFJUDEH8063-02-77 11:04:00 Test Item Value Reference Range Interpretation Comments RBC (test code = RBC) 3.72 4.20-5.40 [facility] LancasterHajzanqQRLVNBJYDT7901-16-45 11:04:00 Test Item Value Reference Range Interpretation Comments Hgb (test code = Hgb) 12.4 12.0-16.0 [facility] LancasterJsloysbECBQSTLWBE1984-40-68 11:04:00 Test Item Value Reference Range Interpretation Comments Hct (test code = Hct) 36.6 36.0-48.0 [facility] LancasterWwudgocXXWNBNNHTP3898-88-13 11:04:00 Test Item Value Reference Range Interpretation Comments MCV (test code = MCV) 98.4 80.0-98.0 [facility] LancasterWpfxeunEHPVRUSPFJ1770-35-27 11:04:00 Test Item Value Reference Range Interpretation Comments MCH (test code = MCH) 33.4 pg 27.0-31.0 [facility] LancasterTwsmfruGFCMYRLTDX9243-32-09 11:04:00 Test Item Value Reference Range Interpretation Comments MCHC (test code = MCHC) 34.0 32.0-36.0 [facility] LancasterKiknrrpPHRKZXFKZN7156-10-38 11:04:00 Test Item Value Reference Range Interpretation Comments RDW (test code = RDW) 13.1 11.5-14.5 [facility] LancasterCvioynaBKFJAVLDVA1341-77-65 11:04:00 Test Item Value Reference Range Interpretation Comments Platelet (test code = Platelet) 202 133-450 [facility] LancasterXoabzmmYKQYQVUOJZ6767-32-88 11:04:00 Test Item Value Reference Range Interpretation Comments MPV (test code = MPV) 8.6 7.4-10.4 [facility] LancasterLbtjustEEGBAUPXCD2448-36-10 11:04:00 Test Item Value Reference Range Interpretation Comments Segs (test code = Segs) 70.0 45.0-75.0 [facility] LancasterEluxkyiNJVYINEESY9210-62-46 11:04:00 Test Item Value Reference Range Interpretation Comments Lymphocytes (test code = Lymphocytes) 19.6 20.0-40.0 [facility] LancasterKqdigtbSRTWCVKOLY6548-08-00 11:04:00 Test Item Value Reference Range Interpretation Comments Monocytes (test code = Monocytes) 8.7 2.0-12.0 [facility] LancasterBnhcfvsLKNTJRPTAR9105-13-65 11:04:00 Test Item Value Reference Range Interpretation Comments Eosinophils (test code = 1.3 See_Comment [A utomated message] The Eosinophils) system which ge nerated this result tra nsmitted reference range : <=4.0. The reference r natasha was not used to int erpret this result as normal/abnormal . [facility] LancasterNkxuhmjXSJWZVXDYK5185-10-80 11:04:00 Test Item Value Reference Range Interpretation Comments Basophils (test code = 0.4 See_Comment [Aut omated message] The Basophils) system which ge nerated this result tra nsmitted reference range : <=1.0. The reference r natasha was not used to int erpret this result as normal/abnormal . [facility] LancasterRcxpbxpUVBJSAJTJO6333-64-51 11:04:00 Test Item Value Reference Range Interpretation Comments Neutrophils # (test code = Neutrophils 5.0 1.5-8.1 #) [facility] LancasterTjtebezBFROLFHBWV5508-31-70 11:04:00 Test Item Value Reference Range Interpretation Comments Lymphocytes # (test code = Lymphocytes 1.4 1.0-5.5 #) [facility] LancasterZwhebayUQTBVNTIMA9275-36-60 11:04:00 Test Item Value Reference Range Interpretation Comments Monocytes # (test code 0.6 See_Comment [Aut omated message] The = Monocytes #) system which generated this result tra nsmitted reference range : <=0.8. The reference r natasha was not used to int erpret this result as normal/abnormal . [place] 854380-02-14 11:04:00 Test Item Value Reference Range Interpretation Comments Eosinophils # (test code 0.1 See_Comment [A utomated message] The = Eosinophils #) system whic h generated this result tra nsmitted reference range : <=0.5. The reference r natasha was not used to int erpret this result as normal/abnormal . [facility] LancasterHrpnajqKODUNHCEDX4424-75-15 11:04:00 Test Item Value Reference Range Interpretation Comments WBC (test code = WBC) 7.1 3.7-10.4 [facility] LancasterBtpubihVKUSRFJSTK4734-87-13 11:04:00 Test Item Value Reference Range Interpretation Comments RBC (test code = RBC) 3.72 4.20-5.40 [facility] LancasterUiwimokZKPDEYMDDC5994-22-55 11:04:00 Test Item Value Reference Range Interpretation Comments Hgb (test code = Hgb) 12.4 12.0-16.0 [facility] LancasterAskhyrrAZLUADROAQ6406-43-30 11:04:00 Test Item Value Reference Range Interpretation Comments Hct (test code = Hct) 36.6 36.0-48.0 [facility] LancasterSceyeayAJEOYMCSVL1033-41-38 11:04:00 Test Item Value Reference Range Interpretation Comments MCV (test code = MCV) 98.4 80.0-98.0 [facility] LancasterAwufpssAFTIQQBPLZ4956-35-56 11:04:00 Test Item Value Reference Range Interpretation Comments MCH (test code = MCH) 33.4 pg 27.0-31.0 [facility] LancasterGhwvbtjHLJDUXPXGR6048-37-54 11:04:00 Test Item Value Reference Range Interpretation Comments MCHC (test code = MCHC) 34.0 32.0-36.0 [facility] LancasterLyfkylnFTDMVKNJJW3431-99-21 11:04:00 Test Item Value Reference Range Interpretation Comments RDW (test code = RDW) 13.1 11.5-14.5 [facility] LancasterHleacsjKGAWSPDGXE6800-98-49 11:04:00 Test Item Value Reference Range Interpretation Comments Platelet (test code = Platelet) 202 133-450 [facility] LancasterKbzeweaSUEWHXHONI4587-95-06 11:04:00 Test Item Value Reference Range Interpretation Comments MPV (test code = MPV) 8.6 7.4-10.4 [facility] LancasterHygjoiyMEYJXDIAUW1784-78-28 11:04:00 Test Item Value Reference Range Interpretation Comments Segs (test code = Segs) 70.0 45.0-75.0 [facility] LancasterTcpxbjoTVQADEEMVJ9432-85-41 11:04:00 Test Item Value Reference Range Interpretation Comments Lymphocytes (test code = Lymphocytes) 19.6 20.0-40.0 [place] [address]-02-14 11:04:00 Test Item Value Reference Range Interpretation Comments Monocytes (test code = Monocytes) 8.7 2.0-12.0 [facility] LancasterJuoejzyRQUIMWASDC8783-60-88 11:04:00 Test Item Value Reference Range Interpretation Comments Eosinophils (test code = 1.3 See_Comment [A utomated message] The Eosinophils) system which ge nerated this result tra nsmitted reference range : <=4.0. The reference r natasha was not used to int erpret this result as normal/abnormal . [facility] LancasterOxsbnxyCJWSRPJDLJ5249-26-16 11:04:00 Test Item Value Reference Range Interpretation Comments Basophils (test code = 0.4 See_Comment [Aut omated message] The Basophils) system which ge nerated this result tra nsmitted reference range : <=1.0. The reference r natahsa was not used to int erpret this result as normal/abnormal . [facility] LancasterQzcwertPDGZUUVEZB8770-22-01 11:04:00 Test Item Value Reference Range Interpretation Comments Neutrophils # (test code = Neutrophils 5.0 1.5-8.1 #) [facility] LancasterOexqyliEUHGYDFZTX0567-28-87 11:04:00 Test Item Value Reference Range Interpretation Comments Lymphocytes # (test code = Lymphocytes 1.4 1.0-5.5 #) [facility] LancasterSnowoimPXQKOTRIIF5854-08-99 11:04:00 Test Item Value Reference Range Interpretation Comments Monocytes # (test code 0.6 See_Comment [Aut omated message] The = Monocytes #) system which generated this result tra nsmitted reference range : <=0.8. The reference r natasha was not used to int erpret this result as normal/abnormal . [facility] LancasterFbesjeeROVJCMXHPZ5112-80-15 11:04:00 Test Item Value Reference Range Interpretation Comments Eosinophils # (test code 0.1 See_Comment [A utomated message] The = Eosinophils #) system [facility] h generated this result tra nsmitted reference range : <=0.5. The reference r natasha was not used to int erpret this result as normal/abnormal . [facility] LancasterBbtbhcnPBRYBPOVUO7654-73-96 11:04:00 Test Item Value Reference Range Interpretation Comments WBC (test code = WBC) 7.1 3.7-10.4 [facility] LancasterJcehldlOBMGZWBTDQ9550-79-08 11:04:00 Test Item Value Reference Range Interpretation Comments RBC (test code = RBC) 3.72 4.20-5.40 [facility] LancasterQxqyhwbMVETXKPOUR1243-85-32 11:04:00 Test Item Value Reference Range Interpretation Comments Hgb (test code = Hgb) 12.4 12.0-16.0 [facility] LancasterQmxcuytPKMIFABMJJ6555-79-44 11:04:00 Test Item Value Reference Range Interpretation Comments Hct (test code = Hct) 36.6 36.0-48.0 [facility] LancasterNkyffnoVJFEXWYVDF6103-07-82 11:04:00 Test Item Value Reference Range Interpretation Comments MCV (test code = MCV) 98.4 80.0-98.0 [facility] LancasterKgoutraJNQCBIXDLJ7859-77-35 11:04:00 Test Item Value Reference Range Interpretation Comments MCH (test code = MCH) 33.4 pg 27.0-31.0 [facility] LancasterVzjbroqREIXVDOMRF8179-09-87 11:04:00 Test Item Value Reference Range Interpretation Comments MCHC (test code = MCHC) 34.0 32.0-36.0 [facility] LancasterRwuvjblEHQATMRVGC5642-03-50 11:04:00 Test Item Value Reference Range Interpretation Comments RDW (test code = RDW) 13.1 11.5-14.5 [facility] LancasterTnjodesUBAHLIBSNR8647-37-20 11:04:00 Test Item Value Reference Range Interpretation Comments Platelet (test code = Platelet) 202 133-450 [facility] LancasterKbkjdyaIYEERCOHTY7303-90-58 11:04:00 Test Item Value Reference Range Interpretation Comments MPV (test code = MPV) 8.6 7.4-10.4 [facility] LancasterKgaoxkdVBIFJPBDXS5800-64-78 11:04:00 Test Item Value Reference Range Interpretation Comments Segs (test code = Segs) 70.0 45.0-75.0 [facility] LancasterSeiievzRGFWCPQRLD9514-70-38 11:04:00 Test Item Value Reference Range Interpretation Comments Lymphocytes (test code = Lymphocytes) 19.6 20.0-40.0 [facility] LancasterLzhrzwhXZALIVJBNY7245-99-13 11:04:00 Test Item Value Reference Range Interpretation Comments Monocytes (test code = Monocytes) 8.7 2.0-12.0 [facility] LancasterKnjwxybHBJKVJWRAB2426-41-83 11:04:00 Test Item Value Reference Range Interpretation Comments Eosinophils (test code = 1.3 See_Comment [A utomated message] The Eosinophils) system which ge nerated this result tra nsmitted reference range : <=4.0. The reference r natasha was not used to int erpret this result as normal/abnormal . [facility] LancasterVwxupfoYLMRGCNODM4679-72-43 11:04:00 Test Item Value Reference Range Interpretation Comments Basophils (test code = 0.4 See_Comment [Aut omated message] The Basophils) system which ge nerated this result tra nsmitted reference range : <=1.0. The reference r natasha was not used to int erpret this result as normal/abnormal . [facility] LancasterWetwhetXLHLZLFEXZ4501-20-08 11:04:00 Test Item Value Reference Range Interpretation Comments Neutrophils # (test code = Neutrophils 5.0 1.5-8.1 #) [facility] LancasterCiipjerRMOCTDFNUI8579-85-65 11:04:00 Test Item Value Reference Range Interpretation Comments Lymphocytes # (test code = Lymphocytes 1.4 1.0-5.5 #) [facility] LancasterWckupptDNXQXDPLQT1388-34-70 11:04:00 Test Item Value Reference Range Interpretation Comments Monocytes # (test code 0.6 See_Comment [Aut omated message] The = Monocytes #) system which generated this result tra nsmitted reference range : <=0.8. The reference r natasha was not used to int erpret this result as normal/abnormal . [facility] LancasterVqwtkaaOVKJNCIWHL1299-59-25 11:04:00 Test Item Value Reference Range Interpretation Comments Eosinophils # (test code 0.1 See_Comment [A utomated message] The = Eosinophils #) system whic h generated this result tra nsmitted reference range : <=0.5. The reference r natasha was not used to int erpret this result as normal/abnormal . [facility] LancasterCxvsvafDWQXPZYRSM2506-95-56 11:04:00 Test Item Value Reference Range Interpretation Comments WBC (test code = WBC) 7.1 3.7-10.4 [place] [id number] 11:04:00 Test Item Value Reference Range Interpretation Comments RBC (test code = RBC) 3.72 4.20-5.40 [facility] LancasterRdzogrcUWSXITOLCN4958-30-96 11:04:00 Test Item Value Reference Range Interpretation Comments Hgb (test code = Hgb) 12.4 12.0-16.0 [facility] LancasterBthsupcWKKTRCQOUJ4260-82-04 11:04:00 Test Item Value Reference Range Interpretation Comments Hct (test code = Hct) 36.6 36.0-48.0 [facility] LancasterGzxnnusKVKCWSJMDR5393-42-48 11:04:00 Test Item Value Reference Range Interpretation Comments MCV (test code = MCV) 98.4 80.0-98.0 [facility] LancasterHpdgmvuPHGLWNSGRM8801-08-16 11:04:00 Test Item Value Reference Range Interpretation Comments MCH (test code = MCH) 33.4 pg 27.0-31.0 [facility] LancasterByuhdoeBJMKWZUACC5959-36-07 11:04:00 Test Item Value Reference Range Interpretation Comments MCHC (test code = MCHC) 34.0 32.0-36.0 [facility] LancasterZkevctdOBXSVDDYFL5906-42-36 11:04:00 Test Item Value Reference Range Interpretation Comments RDW (test code = RDW) 13.1 11.5-14.5 [facility] LancasterGtwckihXRPSSYTTNV5903-39-87 11:04:00 Test Item Value Reference Range Interpretation Comments Platelet (test code = Platelet) 202 133-450 [facility] LancasterDryvqygXHKTIJWVGZ7026-09-77 11:04:00 Test Item Value Reference Range Interpretation Comments MPV (test code = MPV) 8.6 7.4-10.4 [facility] LancasterZyhlhmyHWKNSSNSRX1965-05-24 11:04:00 Test Item Value Reference Range Interpretation Comments Segs (test code = Segs) 70.0 45.0-75.0 [facility] LancasterBslsahoFFRXMMCVPV0131-40-93 11:04:00 Test Item Value Reference Range Interpretation Comments Lymphocytes (test code = Lymphocytes) 19.6 20.0-40.0 [facility] LancasterYjlhtgeRSPOQNQJNC8086-76-53 11:04:00 Test Item Value Reference Range Interpretation Comments Monocytes (test code = Monocytes) 8.7 2.0-12.0 [facility] LancasterIbjvodsTHWZRWFZRG3525-87-71 11:04:00 Test Item Value Reference Range Interpretation Comments Eosinophils (test code = 1.3 See_Comment [A utomated message] The Eosinophils) system which ge nerated this result tra nsmitted reference range : <=4.0. The reference r natasha was not used to int erpret this result as normal/abnormal . [facility] LancasterRcvpphhVWXAOYHXAC0866-17-88 11:04:00 Test Item Value Reference Range Interpretation Comments Basophils (test code = 0.4 See_Comment [Aut omated message] The Basophils) system which ge nerated this result tra nsmitted reference range : <=1.0. The reference r natasha was not used to int erpret this result as normal/abnormal . [facility] LancasterQetxqjlCXJDMWKSGM6656-01-86 11:04:00 Test Item Value Reference Range Interpretation Comments Neutrophils # (test code = Neutrophils 5.0 1.5-8.1 #) [facility] LancasterAectvpoRWUGCZDSGV1221-03-43 11:04:00 Test Item Value Reference Range Interpretation Comments Lymphocytes # (test code = Lymphocytes 1.4 1.0-5.5 #) [facility] LancasterAiwskgjNSQXHEJGAC2440-22-17 11:04:00 Test Item Value Reference Range Interpretation Comments Monocytes # (test code 0.6 See_Comment [Aut omated message] The = Monocytes #) system which generated this result tra nsmitted reference range : <=0.8. The reference r natasha was not used to int erpret this result as normal/abnormal . [facility] LancasterSnxcexhEFMHOVZAUG8979-09-58 11:04:00 Test Item Value Reference Range Interpretation Comments Eosinophils # (test code 0.1 See_Comment [A utomated message] The = Eosinophils #) system whic h generated this result tra nsmitted reference range : <=0.5. The reference r natasha was not used to int erpret this result as normal/abnormal . [facility] LancasterPxlcrnnVCSRQBNUVG1703-20-17 11:04:00 Test Item Value Reference Range Interpretation Comments WBC (test code = WBC) 7.1 3.7-10.4 [facility] LancasterMhwysfkLDRGIXRUVT2413-03-43 11:04:00 Test Item Value Reference Range Interpretation Comments RBC (test code = RBC) 3.72 4.20-5.40 [facility] LancasterOexfmjjHQQCPUPRKE3030-97-63 11:04:00 Test Item Value Reference Range Interpretation Comments Hgb (test code = Hgb) 12.4 12.0-16.0 [facility]BPQR[facility]XTPM4257-54-34 11:04:00 Test Item Value Reference Range Interpretation Comments Hct (test code = Hct) 36.6 36.0-48.0 [facility]ARQI4490[facility]51-22 11:04:00 Test Item Value Reference Range Interpretation Comments MCV (test code = MCV) 98.4 80.0-98.0 [facility]HucyfmdOFZVDYNCVS6090-87-10 11:04:00 Test Item Value Reference Range Interpretation Comments MCH (test code = MCH) 33.4 pg 27.0-31.0 [facility] HospitalMwhqkioKLOLTUANLS2376-82-29 11:04:00 Test Item Value Reference Range Interpretation Comments MCHC (test code = MCHC) 34.0 32.0-36.0 [facility] HospitalCqvzybkRZFDROXCVM0753-70-13 11:04:00 Test Item Value Reference Range Interpretation Comments RDW (test code = RDW) 13.1 11.5-14.5 [facility] HospitalYqbdjppXRPQFAGJEI5716-43-90 11:04:00 Test Item Value Reference Range Interpretation Comments Platelet (test code = Platelet) 202 133-450 [facility] HospitalHbgjlzjOAGDAMPVZK4096-48-10 11:04:00 Test Item Value Reference Range Interpretation Comments MPV (test code = MPV) 8.6 7.4-10.4 [facility] [id number] 22:29:00 Test Item Value Reference Range Interpretation Comments Troponin-I (test code 0.34 See_Comment [Auto mated message] The = Troponin-I) system which g enerated this result transmit evelio reference range : <=0.40. The reference r natasha was not used to interpr et this result as nataliia l/abnormal. [facility] UptownVolleyCARDIAC NWNGUKJ4235-43-04 22:29:00 Test Item Value Reference Range Interpretation Comments Troponin-I (test code 0.34 See_Comment [Auto mated message] The = Troponin-I) system which g enerated this result transmit evelio reference range : <=0.40. The reference r natasha was not used to interpr et this result as nataliia l/abnormal. [facility] [id number] 22:29:00 Test Item Value Reference Range Interpretation Comments Troponin-I (test code 0.34 See_Comment [Auto mated message] The = Troponin-I) system which g enerated this result transmit evelio reference range : <=0.40. The reference r natasha was not used to interpr et this result as nataliia l/abnormal. [facility] [employer]2020-02-13 22:29:00 Test Item Value Reference Range Interpretation Comments Troponin-I (test code 0.34 See_Comment [Auto mated message] The = Troponin-I) system which g enerated this result transmit evelio reference range : <=0.40. The reference r natasha was not used to interpr et this result as nataliia l/abnormal. [facility] [employer]2020-02-13 22:29:00 Test Item Value Reference Range Interpretation Comments Troponin-I (test code 0.34 See_Comment [Auto mated message] The = Troponin-I) system which g enerated this result transmit evelio reference range : <=0.40. The reference r natasha was not used to interpr et this result as nataliia l/abnormal. [facility] [employer]2020-02-13 22:29:00 Test Item Value Reference Range Interpretation Comments Troponin-I (test code 0.34 See_Comment [Auto mated message] The = Troponin-I) system which g enerated this result transmit evelio reference range : <=0.40. The reference r natasha was not used to interpr et this result as nataliia l/abnormal. [facility] [employer]2020-02-13 01:10:00 Test Item Value Reference Range Interpretation Comments Total Protein (test code = Total 6.0 6.4-8.4 Protein) [facility] [employer] [facility]2020-02-13 01:10:00 Test Item Value Reference Range Interpretation Comments Albumin Lvl (test code = Albumin Lvl) 2.5 3.5-5.0 [facility]2020-02-13 01:10:00 Test Item Value Reference Range Interpretation Comments ALT (test code = ALT) 26 See_Comment [Auto mated message] The system which ge nerated this result transmit evelio reference range : <=65. The reference range was not used to interpr et this result as nataliia l/abnormal. [facility] [employer] [facility]2020-02-13 01:10:00 Test Item Value Reference Range Interpretation Comments AST (test code = AST) 30 See_Comment [Auto mated message] The system which ge nerated this result transmit evelio reference range : <=37. The reference range was not used to interpr et this result as nataliia l/abnormal. [facility] [id number] 01:10:00 Test Item Value Reference Range Interpretation Comments Alk Phos (test code = Alk Phos) 55 39-136 [facility] [id number] 01:10:00 Test Item Value Reference Range Interpretation Comments Bili Total (test code = Bili Total) 0.3 0.2-1.3 [facility] [id number] 01:10:00 Test Item Value Reference Range Interpretation Comments B/C Ratio (test code = B/C Ratio) 26 1 6-25 [facility] [id number] 01:10:00 Test Item Value Reference Range Interpretation Comments Globulin (test code = Globulin) 3.5 2.7-4.2 [facility] [id number] 01:10:00 Test Item Value Reference Range Interpretation Comments A/G Ratio (test code = A/G Ratio) 0.7 1 0.7-1.6 [facility] [id number] 01:10:00 Test Item Value Reference Range Interpretation Comments Procalcitonin Lvl (test 0.06 See_Comment [Au tomated message] code = Procalcitonin Lvl) Th e system which generated this result transmitted ref erence range: <=0.10. The reference range was not used to interpr et this result as normal/abnormal . [facility] [id number] 01:10:00 Test Item Value Reference Range Interpretation Comments Total Protein (test code = Total 6.0 6.4-8.4 Protein) [facility] [id number] 01:10:00 Test Item Value Reference Range Interpretation Comments Albumin Lvl (test code = Albumin Lvl) 2.5 3.5-5.0 [facility] [id number] 01:10:00 Test Item Value Reference Range Interpretation Comments ALT (test code = ALT) 26 See_Comment [Auto mated message] The system which ge nerated this result transmit evelio reference range : <=65. The reference range was not used to interpr et this result as nataliia l/abnormal. [facility] [id number] 01:10:00 Test Item Value Reference Range Interpretation Comments AST (test code = AST) 30 See_Comment [Auto mated message] The system which ge nerated this result transmit evelio reference range : <=37. The reference range was not used to interpr et this result as nataliia l/abnormal. [facility] [id number] 01:10:00 Test Item Value Reference Range Interpretation Comments Alk Phos (test code = Alk Phos) 55 39-136 [facility] [id number] 01:10:00 Test Item Value Reference Range Interpretation Comments Bili Total (test code = Bili Total) 0.3 0.2-1.3 [facility] [id number] 01:10:00 Test Item Value Reference Range Interpretation Comments B/C Ratio (test code = B/C Ratio) 26 1 6-25 [facility] [id number] 01:10:00 Test Item Value Reference Range Interpretation Comments Globulin (test code = Globulin) 3.5 2.7-4.2 [facility] [id number] 01:10:00 Test Item Value Reference Range Interpretation Comments A/G Ratio (test code = A/G Ratio) 0.7 1 0.7-1.6 [facility] [id number] 01:10:00 Test Item Value Reference Range Interpretation Comments Procalcitonin Lvl (test 0.06 See_Comment [Au tomated message] code = Procalcitonin Lvl) Th e system which generated this result transmitted ref erence range: <=0.10. The reference range was not used to interpr et this result as normal/abnormal . [facility] [id number] 01:10:00 Test Item Value Reference Range Interpretation Comments Total Protein (test code = Total 6.0 6.4-8.4 Protein) [facility] [id number] 01:10:00 Test Item Value Reference Range Interpretation Comments Albumin Lvl (test code = Albumin Lvl) 2.5 3.5-5.0 [facility] [id number] 01:10:00 Test Item Value Reference Range Interpretation Comments ALT (test code = ALT) 26 See_Comment [Auto mated message] The system which ge nerated this result transmit evelio reference range : <=65. The reference range was not used to interpr et this result as nataliia l/abnormal. [facility] [id number] 01:10:00 Test Item Value Reference Range Interpretation Comments AST (test code = AST) 30 See_Comment [Auto mated message] The system which ge nerated this result transmit evelio reference range : <=37. The reference range was not used to interpr et this result as nataliia l/abnormal. [employer] [id number] 01:10:00 Test Item Value Reference Range Interpretation Comments Alk Phos (test code = Alk Phos) 55 39-136 [facility] [id number] 01:10:00 Test Item Value Reference Range Interpretation Comments Bili Total (test code = Bili Total) 0.3 0.2-1.3 [facility] [id number] 01:10:00 Test Item Value Reference Range Interpretation Comments B/C Ratio (test code = B/C Ratio) 26 1 6-25 [facility] [id number] 01:10:00 Test Item Value Reference Range Interpretation Comments Globulin (test code = Globulin) 3.5 2.7-4.2 [facility] [id number] 01:10:00 Test Item Value Reference Range Interpretation Comments A/G Ratio (test code = A/G Ratio) 0.7 1 0.7-1.6 [facility] [id number] 01:10:00 Test Item Value Reference Range Interpretation Comments Procalcitonin Lvl (test 0.06 See_Comment [Au tomated message] code = Procalcitonin Lvl) Th e system which generated this result transmitted ref erence range: <=0.10. The reference range was not used to interpr et this result as normal/abnormal . [facility] [id number] 01:10:00 Test Item Value Reference Range Interpretation Comments Total Protein (test code = Total 6.0 6.4-8.4 Protein) [facility] [id number] 01:10:00 Test Item Value Reference Range Interpretation Comments Albumin Lvl (test code = Albumin Lvl) 2.5 3.5-5.0 [facility] [id number] 01:10:00 Test Item Value Reference Range Interpretation Comments ALT (test code = ALT) 26 See_Comment [Auto mated message] The system which ge nerated this result transmit evelio reference range : <=65. The reference range was not used to interpr et this result as nataliia l/abnormal. [facility] [id number] 01:10:00 Test Item Value Reference Range Interpretation Comments AST (test code = AST) 30 See_Comment [Auto mated message] The system which ge nerated this result transmit evelio reference range : <=37. The reference range was not used to interpr et this result as nataliia l/abnormal. [employer] [id number] 01:10:00 Test Item Value Reference Range Interpretation Comments Alk Phos (test code = Alk Phos) 55 39-136 [facility] [id number] 01:10:00 Test Item Value Reference Range Interpretation Comments Bili Total (test code = Bili Total) 0.3 0.2-1.3 [facility] [id number] 01:10:00 Test Item Value Reference Range Interpretation Comments B/C Ratio (test code = B/C Ratio) 26 1 6-25 [facility] [id number] 01:10:00 Test Item Value Reference Range Interpretation Comments Globulin (test code = Globulin) 3.5 2.7-4.2 [facility] [id number] 01:10:00 Test Item Value Reference Range Interpretation Comments A/G Ratio (test code = A/G Ratio) 0.7 1 0.7-1.6 [facility] [id number] 01:10:00 Test Item Value Reference Range Interpretation Comments Procalcitonin Lvl (test 0.06 See_Comment [Au tomated message] code = Procalcitonin Lvl) Th e system which generated this result transmitted ref erence range: <=0.10. The reference range was not used to interpr et this result as normal/abnormal . [facility] [id number] 01:10:00 Test Item Value Reference Range Interpretation Comments Total Protein (test code = Total 6.0 6.4-8.4 Protein) [facility] [employer] [facility]2020-02-13 01:10:00 Test Item Value Reference Range Interpretation Comments Albumin Lvl (test code = Albumin Lvl) 2.5 3.5-5.0 [place] [id number] 01:10:00 Test Item Value Reference Range Interpretation Comments ALT (test code = ALT) 26 See_Comment [Auto mated message] The system which ge nerated this result transmit evelio reference range : <=65. The reference range was not used to interpr et this result as nataliia l/abnormal. [facility] [id number] 01:10:00 Test Item Value Reference Range Interpretation Comments AST (test code = AST) 30 See_Comment [Auto mated message] The system which ge nerated this result transmit evelio reference range : <=37. The reference range was not used to interpr et this result as nataliia l/abnormal. [facility] [id number] 01:10:00 Test Item Value Reference Range Interpretation Comments Alk Phos (test code = Alk Phos) 55 39-136 [facility] [id number] 01:10:00 Test Item Value Reference Range Interpretation Comments Bili Total (test code = Bili Total) 0.3 0.2-1.3 [facility] [id number] 01:10:00 Test Item Value Reference Range Interpretation Comments B/C Ratio (test code = B/C Ratio) 26 1 6-25 [facility] [id number] 01:10:00 Test Item Value Reference Range Interpretation Comments Globulin (test code = Globulin) 3.5 2.7-4.2 [facility] [id number] 01:10:00 Test Item Value Reference Range Interpretation Comments A/G Ratio (test code = A/G Ratio) 0.7 1 0.7-1.6 [facility] [id number] 01:10:00 Test Item Value Reference Range Interpretation Comments Procalcitonin Lvl (test 0.06 See_Comment [Au tomated message] code = Procalcitonin Lvl) Th e system which generated this result transmitted ref erence range: <=0.10. The reference range was not used to interpr et this result as normal/abnormal . [facility] [id number] 01:10:00 Test Item Value Reference Range Interpretation Comments Total Protein (test code = Total 6.0 6.4-8.4 Protein) [place] [address]-02-13 01:10:00 Test Item Value Reference Range Interpretation Comments Albumin Lvl (test code = Albumin Lvl) 2.5 3.5-5.0 [facility] [id number] 01:10:00 Test Item Value Reference Range Interpretation Comments ALT (test code = ALT) 26 See_Comment [Auto mated message] The system which ge nerated this result transmit evelio reference range : <=65. The reference range was not used to interpr et this result as nataliia l/abnormal. [facility] [id number] 01:10:00 Test Item Value Reference Range Interpretation Comments AST (test code = AST) 30 See_Comment [Auto mated message] The system which ge nerated this result transmit evelio reference range : <=37. The reference range was not used to interpr et this result as nataliia l/abnormal. [facility] [id number] 01:10:00 Test Item Value Reference Range Interpretation Comments Alk Phos (test code = Alk Phos) 55 39-136 [facility] [id number] 01:10:00 Test Item Value Reference Range Interpretation Comments Bili Total (test code = Bili Total) 0.3 0.2-1.3 [facility] [id number] 01:10:00 Test Item Value Reference Range Interpretation Comments B/C Ratio (test code = B/C Ratio) 26 1 6-25 [facility] [id number] 01:10:00 Test Item Value Reference Range Interpretation Comments Globulin (test code = Globulin) 3.5 2.7-4.2 [facility] [id number] 01:10:00 Test Item Value Reference Range Interpretation Comments A/G Ratio (test code = A/G Ratio) 0.7 1 0.7-1.6 [facility] [id number] 01:10:00 Test Item Value Reference Range Interpretation Comments Procalcitonin Lvl (test 0.06 See_Comment [Au tomated message] code = Procalcitonin Lvl) Th e system which generated this result transmitted ref erence range: <=0.10. The reference range was not used to interpr et this result as normal/abnormal . [place] [address]-02-12 06:09:00 Test Item Value Reference Range Interpretation Comments Lactic Acid Lvl (test code = Lactic 1.0 0.5-2.2 Acid Lvl) [place] [address]-02-12 06:09:00 Test Item Value Reference Range Interpretation Comments Lactic Acid Lvl (test code = Lactic 1.0 0.5-2.2 Acid Lvl) [place] [address]-02-12 06:09:00 Test Item Value Reference Range Interpretation Comments Lactic Acid Lvl (test code = Lactic 1.0 0.5-2.2 Acid Lvl) [place] [address]-02-12 06:09:00 Test Item Value Reference Range Interpretation Comments Lactic Acid Lvl (test code = Lactic 1.0 0.5-2.2 Acid Lvl) [place] [address]-02-12 06:09:00 Test Item Value Reference Range Interpretation Comments Lactic Acid Lvl (test code = Lactic 1.0 0.5-2.2 Acid Lvl) [place] [address]648-02-12 06:09:00 Test Item Value Reference Range Interpretation Comments Lactic Acid Lvl (test code = Lactic 1.0 0.5-2.2 Acid Lvl) [place] [address]648-02-11 19:34:00 Test Item Value Reference Range Interpretation Comments Procalcitonin Lvl (test 0.08 See_Comment [Au tomated message] code = Procalcitonin Lvl) e system which generated this result transmitted ref erence range: <=0.10. The reference range was not used to interpr et this result as normal/abnormal . [place] [address]-02-11 19:34:00 Test Item Value Reference Range Interpretation Comments Lactic Acid Lvl (test code = Lactic 2.1 0.5-2.2 Acid Lvl) [place] [address]-02-11 19:34:00 Test Item Value Reference Range Interpretation Comments Procalcitonin Lvl (test 0.08 See_Comment [Au tomated message] code = Procalcitonin Lvl) e system which generated this result transmitted ref erence range: <=0.10. The reference range was not used to interpr et this result as normal/abnormal . [place] 463050-02-11 19:34:00 Test Item Value Reference Range Interpretation Comments Lactic Acid Lvl (test code = Lactic 2.1 0.5-2.2 Acid Lvl) [place] 463050-02-11 19:34:00 Test Item Value Reference Range Interpretation Comments Procalcitonin Lvl (test 0.08 See_Comment [Au tomated message] code = Procalcitonin Lvl) Th e system which generated this result transmitted ref erence range: <=0.10. The reference range was not used to interpr et this result as normal/abnormal . [place] [address]-02-11 19:34:00 Test Item Value Reference Range Interpretation Comments Lactic Acid Lvl (test code = Lactic 2.1 0.5-2.2 Acid Lvl) [place] 463050-02-11 19:34:00 Test Item Value Reference Range Interpretation Comments Procalcitonin Lvl (test 0.08 See_Comment [Au tomated message] code = Procalcitonin Lvl) Th e system which generated this result transmitted ref erence range: <=0.10. The reference range was not used to interpr et this result as normal/abnormal . [place] 463050-02-11 19:34:00 Test Item Value Reference Range Interpretation Comments Lactic Acid Lvl (test code = Lactic 2.1 0.5-2.2 Acid Lvl) [place] [address]-02-11 19:34:00 Test Item Value Reference Range Interpretation Comments Procalcitonin Lvl (test 0.08 See_Comment [Au tomated message] code = Procalcitonin Lvl) Th e system which generated this result transmitted ref erence range: <=0.10. The reference range was not used to interpr et this result as normal/abnormal . [place] [address]-02-11 19:34:00 Test Item Value Reference Range Interpretation Comments Lactic Acid Lvl (test code = Lactic 2.1 0.5-2.2 Acid Lvl) [place] 463050-02-11 19:34:00 Test Item Value Reference Range Interpretation Comments Procalcitonin Lvl (test 0.08 See_Comment [Au tomated message] code = Procalcitonin Lvl) Th e system which generated this result transmitted ref erence range: <=0.10. The reference range was not used to interpr et this result as normal/abnormal . [place] 463050-02-11 19:34:00 Test Item Value Reference Range Interpretation Comments Lactic Acid Lvl (test code = Lactic 2.1 0.5-2.2 Acid Lvl) [place] 463050-02-11 15:33:00 Test Item Value Reference Range Interpretation Comments Lactic Acid Lvl (test code = Lactic 4.1 0.5-2.2 Acid Lvl) [place] 463050-02-11 15:33:00 Test Item Value Reference Range Interpretation Comments Lactic Acid Lvl (test code = Lactic 4.1 0.5-2.2 Acid Lvl) [facility]2020-02-11 15:33:00 Test Item Value Reference Range Interpretation Comments Lactic Acid Lvl (test code = Lactic 4.1 0.5-2.2 Acid Lvl) [facility]2020-02-11 15:33:00 Test Item Value Reference Range Interpretation Comments Lactic Acid Lvl (test code = Lactic 4.1 0.5-2.2 Acid Lvl) [facility]2020-02-11 15:33:00 Test Item Value Reference Range Interpretation Comments Lactic Acid Lvl (test code = Lactic 4.1 0.5-2.2 Acid Lvl) [place] 463050-02-11 15:33:00 Test Item Value Reference Range Interpretation Comments Lactic Acid Lvl (test code = Lactic 4.1 0.5-2.2 Acid Lvl) [place] 463050-02-11 11:25:00 Test Item Value Reference Range Interpretation Comments B/C Ratio (test code = B/C Ratio) 12 1 6-25 [place] 463050-02-11 11:25:00 Test Item Value Reference Range Interpretation Comments Total Protein (test code = Total 7.1 6.4-8.4 Protein) [facility]2020-02-11 11:25:00 Test Item Value Reference Range Interpretation Comments Albumin Lvl (test code = Albumin Lvl) 2.9 3.5-5.0 [facility] [id number] 11:25:00 Test Item Value Reference Range Interpretation Comments Globulin (test code = Globulin) 4.2 2.7-4.2 [facility] [id number] 11:25:00 Test Item Value Reference Range Interpretation Comments A/G Ratio (test code = A/G Ratio) 0.7 1 0.7-1.6 [facility] [id number] 11:25:00 Test Item Value Reference Range Interpretation Comments ALT (test code = ALT) 23 See_Comment [Auto mated message] The system which ge nerated this result transmit evelio reference range : <=65. The reference range was not used to interpr et this result as nataliia l/abnormal. [facility] [id number] 11:25:00 Test Item Value Reference Range Interpretation Comments AST (test code = AST) 36 See_Comment [Auto mated message] The system which ge nerated this result transmit evelio reference range : <=37. The reference range was not used to interpr et this result as nataliia l/abnormal. [facility] [id number] 11:25:00 Test Item Value Reference Range Interpretation Comments Alk Phos (test code = Alk Phos) 67 39-136 [facility] [id number] 11:25:00 Test Item Value Reference Range Interpretation Comments Bili Total (test code = Bili Total) 0.5 0.2-1.3 [facility] [id number] 11:25:00 Test Item Value Reference Range Interpretation Comments B/C Ratio (test code = B/C Ratio) 12 1 6-25 [facility] [id number] 11:25:00 Test Item Value Reference Range Interpretation Comments Total Protein (test code = Total 7.1 6.4-8.4 Protein) [facility] [id number] 11:25:00 Test Item Value Reference Range Interpretation Comments Albumin Lvl (test code = Albumin Lvl) 2.9 3.5-5.0 [facility] [id number] 11:25:00 Test Item Value Reference Range Interpretation Comments Globulin (test code = Globulin) 4.2 2.7-4.2 [facility] [id number] 11:25:00 Test Item Value Reference Range Interpretation Comments A/G Ratio (test code = A/G Ratio) 0.7 1 0.7-1.6 [facility] [id number] 11:25:00 Test Item Value Reference Range Interpretation Comments ALT (test code = ALT) 23 See_Comment [Auto mated message] The system which ge nerated this result transmit evelio reference range : <=65. The reference range was not used to interpr et this result as nataliia l/abnormal. [facility] [id number] 11:25:00 Test Item Value Reference Range Interpretation Comments AST (test code = AST) 36 See_Comment [Auto mated message] The system which ge nerated this result transmit evelio reference range : <=37. The reference range was not used to interpr et this result as nataliia l/abnormal. [facility] [id number] 11:25:00 Test Item Value Reference Range Interpretation Comments Alk Phos (test code = Alk Phos) 67 39-136 [facility] [id number] 11:25:00 Test Item Value Reference Range Interpretation Comments Bili Total (test code = Bili Total) 0.5 0.2-1.3 [facility] [id number] 11:25:00 Test Item Value Reference Range Interpretation Comments B/C Ratio (test code = B/C Ratio) 12 1 6-25 [facility] [id number] 11:25:00 Test Item Value Reference Range Interpretation Comments Total Protein (test code = Total 7.1 6.4-8.4 Protein) [facility] [id number] 11:25:00 Test Item Value Reference Range Interpretation Comments Albumin Lvl (test code = Albumin Lvl) 2.9 3.5-5.0 [facility] [id number] 11:25:00 Test Item Value Reference Range Interpretation Comments Globulin (test code = Globulin) 4.2 2.7-4.2 [facility] [id number] 11:25:00 Test Item Value Reference Range Interpretation Comments A/G Ratio (test code = A/G Ratio) 0.7 1 0.7-1.6 [facility] [id number] 11:25:00 Test Item Value Reference Range Interpretation Comments ALT (test code = ALT) 23 See_Comment [Auto mated message] The system which ge nerated this result transmit evelio reference range : <=65. The reference range was not used to interpr et this result as nataliia l/abnormal. [facility] [id number] 11:25:00 Test Item Value Reference Range Interpretation Comments AST (test code = AST) 36 See_Comment [Auto mated message] The system which ge nerated this result transmit evelio reference range : <=37. The reference range was not used to interpr et this result as nataliia l/abnormal. [facility] [id number] 11:25:00 Test Item Value Reference Range Interpretation Comments Alk Phos (test code = Alk Phos) 67 39-136 [facility] [id number] 11:25:00 Test Item Value Reference Range Interpretation Comments Bili Total (test code = Bili Total) 0.5 0.2-1.3 [facility] [id number] 11:25:00 Test Item Value Reference Range Interpretation Comments B/C Ratio (test code = B/C Ratio) 12 1 6-25 [facility] [id number] 11:25:00 Test Item Value Reference Range Interpretation Comments Total Protein (test code = Total 7.1 6.4-8.4 Protein) [facility] [id number] 11:25:00 Test Item Value Reference Range Interpretation Comments Albumin Lvl (test code = Albumin Lvl) 2.9 3.5-5.0 [facility] [id number] 11:25:00 Test Item Value Reference Range Interpretation Comments Globulin (test code = Globulin) 4.2 2.7-4.2 [facility] [id number] 11:25:00 Test Item Value Reference Range Interpretation Comments A/G Ratio (test code = A/G Ratio) 0.7 1 0.7-1.6 [facility] [id number] 11:25:00 Test Item Value Reference Range Interpretation Comments ALT (test code = ALT) 23 See_Comment [Auto mated message] The system which ge nerated this result transmit evelio reference range : <=65. The reference range was not used to interpr et this result as nataliia l/abnormal. [facility] [id number] 11:25:00 Test Item Value Reference Range Interpretation Comments AST (test code = AST) 36 See_Comment [Auto mated message] The system which ge nerated this result transmit evelio reference range : <=37. The reference range was not used to interpr et this result as nataliia l/abnormal. [facility] [id number] 11:25:00 Test Item Value Reference Range Interpretation Comments Alk Phos (test code = Alk Phos) 67 39-136 [facility] [id number] 11:25:00 Test Item Value Reference Range Interpretation Comments Bili Total (test code = Bili Total) 0.5 0.2-1.3 [facility] [id number] 11:25:00 Test Item Value Reference Range Interpretation Comments B/C Ratio (test code = B/C Ratio) 12 1 6-25 [facility] [id number] 11:25:00 Test Item Value Reference Range Interpretation Comments Total Protein (test code = Total 7.1 6.4-8.4 Protein) [facility] [id number] 11:25:00 Test Item Value Reference Range Interpretation Comments Albumin Lvl (test code = Albumin Lvl) 2.9 3.5-5.0 [facility] [id number] 11:25:00 Test Item Value Reference Range Interpretation Comments Globulin (test code = Globulin) 4.2 2.7-4.2 [facility] [id number] 11:25:00 Test Item Value Reference Range Interpretation Comments A/G Ratio (test code = A/G Ratio) 0.7 1 0.7-1.6 [facility] [id number] 11:25:00 Test Item Value Reference Range Interpretation Comments ALT (test code = ALT) 23 See_Comment [Auto mated message] The system which ge nerated this result transmit evelio reference range : <=65. The reference range was not used to interpr et this result as nataliia l/abnormal. [facility] [id number] 11:25:00 Test Item Value Reference Range Interpretation Comments AST (test code = AST) 36 See_Comment [Auto mated message] The system which ge nerated this result transmit evelio reference range : <=37. The reference range was not used to interpr et this result as nataliia l/abnormal. [facility] [id number] 11:25:00 Test Item Value Reference Range Interpretation Comments Alk Phos (test code = Alk Phos) 67 39-136 [facility] [id number] 11:25:00 Test Item Value Reference Range Interpretation Comments Bili Total (test code = Bili Total) 0.5 0.2-1.3 [facility] [id number] 11:25:00 Test Item Value Reference Range Interpretation Comments B/C Ratio (test code = B/C Ratio) 12 1 6-25 [facility] [id number] 11:25:00 Test Item Value Reference Range Interpretation Comments Total Protein (test code = Total 7.1 6.4-8.4 Protein) [facility] [id number] 11:25:00 Test Item Value Reference Range Interpretation Comments Albumin Lvl (test code = Albumin Lvl) 2.9 3.5-5.0 [facility] [id number] 11:25:00 Test Item Value Reference Range Interpretation Comments Globulin (test code = Globulin) 4.2 2.7-4.2 [facility] [id number] 11:25:00 Test Item Value Reference Range Interpretation Comments A/G Ratio (test code = A/G Ratio) 0.7 1 0.7-1.6 [facility] [id number] 11:25:00 Test Item Value Reference Range Interpretation Comments ALT (test code = ALT) 23 See_Comment [Auto mated message] The system which ge nerated this result transmit evelio reference range : <=65. The reference range was not used to interpr et this result as nataliia l/abnormal. [facility] [id number] 11:25:00 Test Item Value Reference Range Interpretation Comments AST (test code = AST) 36 See_Comment [Auto mated message] The system which ge nerated this result transmit evelio reference range : <=37. The reference range was not used to interpr et this result as nataliia l/abnormal. [facility] [id number] 11:25:00 Test Item Value Reference Range Interpretation Comments Alk Phos (test code = Alk Phos) 67 39-136 [facility] [id number] 11:25:00 Test Item Value Reference Range Interpretation Comments Bili Total (test code = Bili Total) 0.5 0.2-1.3 [facility] [id number] 20:51:00 Test Item Value Reference Range Interpretation Comments Trig (test code = Trig) 83 [facility] [id number] 20:51:00 Test Item Value Reference Range Interpretation Comments Chol (test code = Chol) 253 [facility] [id number] 20:51:00 Test Item Value Reference Range Interpretation Comments HDL (test code = HDL) 71 [facility] [id number] 20:51:00 Test Item Value Reference Range Interpretation Comments CHD Risk (test code = CHD Risk) 3.56 1 3.90-5.80 [facility] [id number] 20:51:00 Test Item Value Reference Range Interpretation Comments LDL (Calculated) (test code = LDL 165 (Calculated)) [facility] [id number] 20:51:00 Test Item Value Reference Range Interpretation Comments VLDL (test code = VLDL) 17 1 [facility] [id number] 20:51:00 Test Item Value Reference Range Interpretation Comments Hgb A1C (test code = Hgb A1C) 5.5 [facility] [id number] 20:51:00 Test Item Value Reference Range Interpretation Comments UA Color (test code = Light Yellow UA Color) *NA*(09/15/19 2:51 PM) [facility] [id number] 20:51:00 Test Item Value Reference Range Interpretation Comments UA Turbidity (test code = Clear (09/15/19 2:51 UA Turbidity) PM) [facility] [id number] 20:51:00 Test Item Value Reference Range Interpretation Comments UA Spec Grav (test code = UA Spec 1.015 1 Grav) [facility] [id number] 20:51:00 Test Item Value Reference Range Interpretation Comments UA pH (test code = UA pH) 8.0 1 5.0-8.0 [facility] [id number] 20:51:00 Test Item Value Reference Range Interpretation Comments UA Protein (test code = UA Protein) 30 mg/dL [facility] [id number] 20:51:00 Test Item Value Reference Range Interpretation Comments UA Ketones (test code = UA Negative mg/dL Ketones) [facility] [id number] 20:51:00 Test Item Value Reference Range Interpretation Comments UA Bili (test code = Negative *NA*(09/15/19 UA Bili) 2:51 PM) [facility] [id number] 20:51:00 Test Item Value Reference Range Interpretation Comments UA Blood (test code = Small *ABN*(09/15/19 UA Blood) 2:51 PM) [facility] [id number] 20:51:00 Test Item Value Reference Range Interpretation Comments UA Urobilinogen (test code = UA no gt 0.1-1.0 Urobilinogen) [facility] [id number] 20:51:00 Test Item Value Reference Range Interpretation Comments UA Nitrite (test code Negative (09/15/19 2:51 = UA Nitrite) PM) [facility] [id number] 20:51:00 Test Item Value Reference Range Interpretation Comments UA Leuk Est (test Negative (09/15/19 2:51 code = UA Leuk Est) PM) [facility] [id number] 20:51:00 Test Item Value Reference Range Interpretation Comments UA WBC (test code = 3 See_Comment [Automa evelio message] The UA WBC) system which ge nerated this result transmit evelio reference range : <=5. The reference range was not used to interpr et this result as nataliia l/abnormal. [facility] [id number] 20:51:00 Test Item Value Reference Range Interpretation Comments UA RBC (test code = 16 See_Comment [Automa evelio message] The UA RBC) system which ge nerated this result transmit evelio reference range : <=2. The reference range was not used to interpr et this result as nataliia l/abnormal. [facility] [id number] 20:51:00 Test Item Value Reference Range Interpretation Comments UA Sq Epi (test code = UA Sq Epi) None Seen [facility] [id number] 20:51:00 Test Item Value Reference Range Interpretation Comments UA Glucose (test code = UA Glucose) 50mg/dl [facility] [id number] 20:51:00 Test Item Value Reference Range Interpretation Comments Trig (test code = Trig) 83 [id number] 20:51:00 Test Item Value Reference Range Interpretation Comments Chol (test code = Chol) 253 [id number] 20:51:00 Test Item Value Reference Range Interpretation Comments HDL (test code = HDL) 71 [facility] [id number] 20:51:00 Test Item Value Reference Range Interpretation Comments CHD Risk (test code = CHD Risk) 3.56 1 3.90-5.80 [facility] [id number] 20:51:00 Test Item Value Reference Range Interpretation Comments LDL (Calculated) (test code = LDL 165 (Calculated)) [id number] 20:51:00 Test Item Value Reference Range Interpretation Comments VLDL (test code = VLDL) 17 1 [facility]SPE[facility] [id number] 20:51:00 Test Item Value Reference Range Interpretation Comments Hgb A1C (test code = Hgb A1C) 5.5 [facility] [id number] 20:51:00 Test Item Value Reference Range Interpretation Comments UA Color (test code = Light Yellow UA Color) *NA*(09/15/19 2:51 PM) [facility] [id number] 20:51:00 Test Item Value Reference Range Interpretation Comments UA Turbidity (test code = Clear (09/15/19 2:51 UA Turbidity) PM) [facility] [id number] 20:51:00 Test Item Value Reference Range Interpretation Comments UA Spec Grav (test code = UA Spec 1.015 1 Grav) [facility] [id number] 20:51:00 Test Item Value Reference Range Interpretation Comments UA pH (test code = UA pH) 8.0 1 5.0-8.0 [facility] [id number] 20:51:00 Test Item Value Reference Range Interpretation Comments UA Protein (test code = UA Protein) 30 mg/dL [facility] [id number] 20:51:00 Test Item Value Reference Range Interpretation Comments UA Ketones (test code = UA Negative mg/dL Ketones) [facility] [id number] 20:51:00 Test Item Value Reference Range Interpretation Comments UA Bili (test code = Negative *NA*(09/15/19 UA Bili) 2:51 PM) [facility] [id number] 20:51:00 Test Item Value Reference Range Interpretation Comments UA Blood (test code = Small *ABN*(09/15/19 UA Blood) 2:51 PM) [facility] [id number] 20:51:00 Test Item Value Reference Range Interpretation Comments UA Urobilinogen (test code = UA no gt 0.1-1.0 Urobilinogen) [facility] [id number] 20:51:00 Test Item Value Reference Range Interpretation Comments UA Nitrite (test code Negative (09/15/19 2:51 = UA Nitrite) PM) [facility] [id number] 20:51:00 Test Item Value Reference Range Interpretation Comments UA Leuk Est (test Negative (09/15/19 2:51 code = UA Leuk Est) PM) [facility] [id number] 20:51:00 Test Item Value Reference Range Interpretation Comments UA WBC (test code = 3 See_Comment [Automa evelio message] The UA WBC) system which ge nerated this result transmit evelio reference range : <=5. The reference range was not used to interpr et this result as nataliia l/abnormal. [facility] [id number] 20:51:00 Test Item Value Reference Range Interpretation Comments UA RBC (test code = 16 See_Comment [Automa evelio message] The UA RBC) system which ge nerated this result transmit evelio reference range : <=2. The reference range was not used to interpr et this result as nataliia l/abnormal. [facility] [id number] 20:51:00 Test Item Value Reference Range Interpretation Comments UA Sq Epi (test code = UA Sq Epi) None [facility]en [facility] [id number] 20:51:00 Test Item Value Reference Range Interpretation Comments UA Glucose (test code = UA Glucose) 50mg/dl [facility] [id number] 20:51:00 Test Item Value Reference Range Interpretation Comments Trig (test code = Trig) 83 [facility] [id number] 20:51:00 Test Item Value Reference Range Interpretation Comments Chol (test code = Chol) 253 [facility]ownJqsyqgvQIHVLW2587-73-62 20:51:00 Test Item Value Reference Range Interpretation Comments HDL (test code = HDL) 71 [facility]ownXjadminPQXBFO5174-18-38 20:51:00 Test Item Value Reference Range Interpretation Comments CHD Risk (test code = CHD Risk) 3.56 1 3.90-5.80 [facility] IkzbzbvWVRTMK6258-72-39 20:51:00 Test Item Value Reference Range Interpretation Comments LDL (Calculated) (test code = LDL 165 (Calculated)) [facility]ownUqjpmdiNHTCKX0883-15-32 20:51:00 Test Item Value Reference Range Interpretation Comments VLDL (test code = VLDL) 17 1 [facility] [id number] 20:51:00 Test Item Value Reference Range Interpretation Comments Hgb A1C (test code = Hgb A1C) 5.5 [facility] [id number] 20:51:00 Test Item Value Reference Range Interpretation Comments UA Color (test code = Light Yellow UA Color) *NA*(09/15/19 2:51 PM) [facility] [id number] 20:51:00 Test Item Value Reference Range Interpretation Comments UA Turbidity (test code = Clear (09/15/19 2:51 UA Turbidity) PM) [facility] [id number] 20:51:00 Test Item Value Reference Range Interpretation Comments UA Spec Grav (test code = UA Spec 1.015 1 Grav) [facility] [id number] 20:51:00 Test Item Value Reference Range Interpretation Comments UA pH (test code = UA pH) 8.0 1 5.0-8.0 [facility] [id number] 20:51:00 Test Item Value Reference Range Interpretation Comments UA Protein (test code = UA Protein) 30 mg/dL [facility] [id number] 20:51:00 Test Item Value Reference Range Interpretation Comments UA Ketones (test code = UA Negative mg/dL Ketones) [facility] [id number] 20:51:00 Test Item Value Reference Range Interpretation Comments UA Bili (test code = Negative *NA*(09/15/19 UA Bili) 2:51 PM) [facility] [id number] 20:51:00 Test Item Value Reference Range Interpretation Comments UA Blood (test code = Small *ABN*(09/15/19 UA Blood) 2:51 PM) [facility] [id number] 20:51:00 Test Item Value Reference Range Interpretation Comments UA Urobilinogen (test code = UA no gt 0.1-1.0 Urobilinogen) [facility] [id number] 20:51:00 Test Item Value Reference Range Interpretation Comments UA Nitrite (test code Negative (09/15/19 2:51 = UA Nitrite) PM) [facility] [id number] 20:51:00 Test Item Value Reference Range Interpretation Comments UA Leuk Est (test Negative (09/15/19 2:51 code = UA Leuk Est) PM) [facility] [id number] 20:51:00 Test Item Value Reference Range Interpretation Comments UA WBC (test code = 3 See_Comment [Automa evelio message] The UA WBC) system which ge nerated this result transmit evelio reference range : <=5. The reference range was not used to interpr et this result as nataliia l/abnormal. [facility] [id number] 20:51:00 Test Item Value Reference Range Interpretation Comments UA RBC (test code = 16 See_Comment [Automa evelio message] The UA RBC) system which ge nerated this result transmit evelio reference range : <=2. The reference range was not used to interpr et this result as nataliia l/abnormal. [facility] [id number] 20:51:00 Test Item Value Reference Range Interpretation Comments UA Sq Epi (test code = UA Sq Epi) None Seen [facility] [id number] 20:51:00 Test Item Value Reference Range Interpretation Comments UA Glucose (test code = UA Glucose) 50mg/dl [facility] [id number] 20:51:00 Test Item Value Reference Range Interpretation Comments Trig (test code = Trig) 83 [facility] OcgxsuaKHUQTZ0219-37-03 20:51:00 Test Item Value Reference Range Interpretation Comments Chol (test code = Chol) 253 [facility] DliimyqCJPYRJ2370-99-27 20:51:00 Test Item Value Reference Range Interpretation Comments HDL (test code = HDL) 71 [facility] AdvtkecCGSLME8624-84-42 20:51:00 Test Item Value Reference Range Interpretation Comments CHD Risk (test code = CHD Risk) 3.56 1 3.90-5.80 [facility] KezwoawRLAAHK1671-93-11 20:51:00 Test Item Value Reference Range Interpretation Comments LDL (Calculated) (test code = LDL 165 (Calculated)) [facility] GctofgnICMRGK0921-72-40 20:51:00 Test Item Value Reference Range Interpretation Comments VLDL (test code = VLDL) 17 1 [facility] [id number] 20:51:00 Test Item Value Reference Range Interpretation Comments Hgb A1C (test code = Hgb A1C) 5.5 [facility] [id number] 20:51:00 Test Item Value Reference Range Interpretation Comments UA Color (test code = Light Yellow UA Color) *NA*(09/15/19 2:51 PM) [facility] [id number] 20:51:00 Test Item Value Reference Range Interpretation Comments UA Turbidity (test code = Clear (09/15/19 2:51 UA Turbidity) PM) [facility] [id number] 20:51:00 Test Item Value Reference Range Interpretation Comments UA Spec Grav (test code = UA Spec 1.015 1 Grav) [facility] [id number] 20:51:00 Test Item Value Reference Range Interpretation Comments UA pH (test code = UA pH) 8.0 1 5.0-8.0 [facility] [id number] 20:51:00 Test Item Value Reference Range Interpretation Comments UA Protein (test code = UA Protein) 30 mg/dL [facility] [id number] 20:51:00 Test Item Value Reference Range Interpretation Comments UA Ketones (test code = UA Negative mg/dL Ketones) [facility] [id number] 20:51:00 Test Item Value Reference Range Interpretation Comments UA Bili (test code = Negative *NA*(09/15/19 UA Bili) 2:51 PM) [facility] [id number] 20:51:00 Test Item Value Reference Range Interpretation Comments UA Blood (test code = Small *ABN*(09/15/19 UA Blood) 2:51 PM) [facility] [id number] 20:51:00 Test Item Value Reference Range Interpretation Comments UA Urobilinogen (test code = UA no gt 0.1-1.0 Urobilinogen) [facility] [id number] 20:51:00 Test Item Value Reference Range Interpretation Comments UA Nitrite (test code Negative (09/15/19 2:51 = UA Nitrite) PM) [facility] [id number] 20:51:00 Test Item Value Reference Range Interpretation Comments UA Leuk Est (test Negative (09/15/19 2:51 code = UA Leuk Est) PM) [facility] [id number] 20:51:00 Test Item Value Reference Range Interpretation Comments UA WBC (test code = 3 See_Comment [Automa evelio message] The UA WBC) system which ge nerated this result transmit evelio reference range : <=5. The reference range was not used to interpr et this result as natlaiia l/abnormal. [facility] [id number] 20:51:00 Test Item Value Reference Range Interpretation Comments UA RBC (test code = 16 See_Comment [Automa evelio message] The UA RBC) system which ge nerated this result transmit evelio reference range : <=2. The reference range was not used to interpr et this result as nataliia l/abnormal. [facility] [id number] 20:51:00 Test Item Value Reference Range Interpretation Comments UA Sq Epi (test code = UA Sq Epi) None Seen [facility] [id number] 20:51:00 Test Item Value Reference Range Interpretation Comments UA Glucose (test code = UA Glucose) 50mg/dl [facility] [id number] 20:51:00 Test Item Value Reference Range Interpretation Comments Trig (test code = Trig) 83 [facility] [id number] 20:51:00 Test Item Value Reference Range Interpretation Comments Chol (test code = Chol) 253 [facility] CykycwiUEBOTO1246-19-33 20:51:00 Test Item Value Reference Range Interpretation Comments HDL (test code = HDL) 71 [facility] [id number] 20:51:00 Test Item Value Reference Range Interpretation Comments CHD Risk (test code = CHD Risk) 3.56 1 3.90-5.80 [facility] IfvovmnFWGSTL3584-91-41 20:51:00 Test Item Value Reference Range Interpretation Comments LDL (Calculated) (test code = LDL 165 (Calculated)) [facility] CgqzjjgQPRHWZ6991-38-32 20:51:00 Test Item Value Reference Range Interpretation Comments VLDL (test code = VLDL) 17 1 [facility] [id number] 20:51:00 Test Item Value Reference Range Interpretation Comments Hgb A1C (test code = Hgb A1C) 5.5 [facility] [id number] 20:51:00 Test Item Value Reference Range Interpretation Comments UA Color (test code = Light Yellow UA Color) *NA*(09/15/19 2:51 PM) [facility] [id number] 20:51:00 Test Item Value Reference Range Interpretation Comments UA Turbidity (test code = Clear (09/15/19 2:51 UA Turbidity) PM) [facility] [id number] 20:51:00 Test Item Value Reference Range Interpretation Comments UA Spec Grav (test code = UA Spec 1.015 1 Grav) [facility] [id number] 20:51:00 Test Item Value Reference Range Interpretation Comments UA pH (test code = UA pH) 8.0 1 5.0-8.0 [facility] [id number] 20:51:00 Test Item Value Reference Range Interpretation Comments UA Protein (test code = UA Protein) 30 mg/dL [facility] [id number] 20:51:00 Test Item Value Reference Range Interpretation Comments UA Ketones (test code = UA Negative mg/dL Ketones) [facility] [id number] 20:51:00 Test Item Value Reference Range Interpretation Comments UA Bili (test code = Negative *NA*(09/15/19 UA Bili) 2:51 PM) [facility] [id number] 20:51:00 Test Item Value Reference Range Interpretation Comments UA Blood (test code = Small *ABN*(09/15/19 UA Blood) 2:51 PM) [facility] [id number] 20:51:00 Test Item Value Reference Range Interpretation Comments UA Urobilinogen (test code = UA no gt 0.1-1.0 Urobilinogen) [facility] [id number] 20:51:00 Test Item Value Reference Range Interpretation Comments UA Nitrite (test code Negative (09/15/19 2:51 = UA Nitrite) PM) [facility] [id number] 20:51:00 Test Item Value Reference Range Interpretation Comments UA Leuk Est (test Negative (09/15/19 2:51 code = UA Leuk Est) PM) [facility] [id number] 20:51:00 Test Item Value Reference Range Interpretation Comments UA WBC (test code = 3 See_Comment [Automa evelio message] The UA WBC) system which ge nerated this result transmit evelio reference range : <=5. The reference range was not used to interpr et this result as nataliia l/abnormal. [facility] [id number] 20:51:00 Test Item Value Reference Range Interpretation Comments UA RBC (test code = 16 See_Comment [Automa evelio message] The UA RBC) system which ge nerated this result transmit evelio reference range : <=2. The reference range was not used to interpr et this result as nataliia l/abnormal. [facility] [id number] 20:51:00 Test Item Value Reference Range Interpretation Comments UA Sq Epi (test code = UA Sq Epi) None [facility] [id number] 20:51:00 Test Item Value Reference Range Interpretation Comments UA Glucose (test code = UA Glucose) 50mg/dl [facility] [id number] 20:51:00 Test Item Value Reference Range Interpretation Comments Trig (test code = Trig) 83 [facility]ownSbcqkkzJUPFTX2639-33-45 20:51:00 Test Item Value Reference Range Interpretation Comments Chol (test code = Chol) 253 [facility]ownNqjrqgpLAHPIL5989-41-25 20:51:00 Test Item Value Reference Range Interpretation Comments HDL (test code = HDL) 71 [facility]ownNmwnfoaQETDKJ2523-61-03 20:51:00 Test Item Value Reference Range Interpretation Comments CHD Risk (test code = CHD Risk) 3.56 1 3.90-5.80 [facility] QbqbfowMVRTOY8256-69-26 20:51:00 Test Item Value Reference Range Interpretation Comments LDL (Calculated) (test code = LDL 165 (Calculated)) [facility] NtbdwpfPCYXGP8618-43-57 20:51:00 Test Item Value Reference Range Interpretation Comments VLDL (test code = VLDL) 17 1 [facility] [id number] 20:51:00 Test Item Value Reference Range Interpretation Comments Hgb A1C (test code = Hgb A1C) 5.5 [facility] [id number] 20:51:00 Test Item Value Reference Range Interpretation Comments UA Color (test code = Light Yellow UA Color) *NA*(09/15/19 2:51 PM) [facility] [id number] 20:51:00 Test Item Value Reference Range Interpretation Comments UA Turbidity (test code = Clear (09/15/19 2:51 UA Turbidity) PM) [facility] [id number] 20:51:00 Test Item Value Reference Range Interpretation Comments UA Spec Grav (test code = UA Spec 1.015 1 Grav) [facility] [id number] 20:51:00 Test Item Value Reference Range Interpretation Comments UA pH (test code = UA pH) 8.0 1 5.0-8.0 [facility] [id number] 20:51:00 Test Item Value Reference Range Interpretation Comments UA Protein (test code = UA Protein) 30 mg/dL [facility] [id number] 20:51:00 Test Item Value Reference Range Interpretation Comments UA Ketones (test code = UA Negative mg/dL Ketones) [facility] [id number] 20:51:00 Test Item Value Reference Range Interpretation Comments UA Bili (test code = Negative *NA*(09/15/19 UA Bili) 2:51 PM) [facility] [id number] 20:51:00 Test Item Value Reference Range Interpretation Comments UA Blood (test code = Small *ABN*(09/15/19 UA Blood) 2:51 PM) [facility] [id number] 20:51:00 Test Item Value Reference Range Interpretation Comments UA Urobilinogen (test code = UA no gt 0.1-1.0 Urobilinogen) [facility] AND [id number] 20:51:00 Test Item Value Reference Range Interpretation Comments UA Nitrite (test code Negative (09/15/19 2:51 = UA Nitrite) PM) [facility] AND [id number] 20:51:00 Test Item Value Reference Range Interpretation Comments UA Leuk Est (test Negative (09/15/19 2:51 code = UA Leuk Est) PM) [facility] AND [id number] 20:51:00 Test Item Value Reference Range Interpretation Comments UA WBC (test code = 3 See_Comment [Automa evelio message] The UA WBC) system which ge nerated this result transmit evelio reference range : <=5. The reference range was not used to interpr et this result as nataliia l/abnormal. [facility] AND [id number] 20:51:00 Test Item Value Reference Range Interpretation Comments UA RBC (test code = 16 See_Comment [Automa evelio message] The UA RBC) system which ge nerated this result transmit evelio reference range : <=2. The reference range was not used to interpr et this result as nataliia l/abnormal. [facility] AND [id number] 20:51:00 Test Item Value Reference Range Interpretation Comments UA Sq Epi (test code = UA Sq Epi) None Seen [facility] AND [id number] 20:51:00 Test Item Value Reference Range Interpretation Comments UA Glucose (test code = UA Glucose) 50mg/dl [facility] [id number] 17:55:35 Test Item Value Reference Range Interpretation Comments Total CK (test code = Total CK) 169 12-191 [facility] [id number] 17:55:35 Test Item Value Reference Range Interpretation Comments Troponin-I (test code no gt See_Comment [Auto mated message] The = Troponin-I) system which g enerated this result transmit evelio reference range : <=0.40. The reference r natasha was not used to interpr et this result as nataliia l/abnormal. [facility]ownVrgofvsIJGFEURYGO6812-83-09 17:55:35 Test Item Value Reference Range Interpretation Comments PT (test code = PT) 12.2 s 12.0-14.7 [facility] HospitalJozaohqLCUCCPLWSG3496-58-93 17:55:35 Test Item Value Reference Range Interpretation Comments INR (test code = INR) 0.91 1 0.85-1.17 [facility]TwfjyytQLNHWPYZDI5512-40-94 17:55:35 Test Item Value Reference Range Interpretation Comments PTT (test code = PTT) 23.2 s 22.9-35.8 [facility] HospitalTcthxqpINAMZAGHNP3622-11-24 17:55:35 Test Item Value Reference Range Interpretation Comments RBC Morph (test code = Normal (09/15/19 11:55 RBC Morph) AM) [facility] HospitalHtwtdgoRXSMXOQPMP4271-19-96 17:55:35 Test Item Value Reference Range Interpretation Comments Plt Morph (test code = Normal (09/15/19 11:55 Plt Morph) AM) [facility] [id number] 17:55:35 Test Item Value Reference Range Interpretation Comments Total CK (test code = Total CK) 169 12-191 [facility] [id number] 17:55:35 Test Item Value Reference Range Interpretation Comments Troponin-I (test code no gt See_Comment [Auto mated message] The = Troponin-I) system which g enerated this result transmit evelio reference range : <=0.40. The reference r natasha was not used to interpr et this result as nataliia l/abnormal. [facility] LancasterLwlrimlUZTHKMYGAA2827-87-15 17:55:35 Test Item Value Reference Range Interpretation Comments PT (test code = PT) 12.2 s 12.0-14.7 [facility] HospitalNgwhtdyQKPHEEFWXT4536-57-96 17:55:35 Test Item Value Reference Range Interpretation Comments INR (test code = INR) 0.91 1 0.85-1.17 [facility] HospitalDmzkhgfBQPCXVRYKD4520-90-10 17:55:35 Test Item Value Reference Range Interpretation Comments PTT (test code = PTT) 23.2 s 22.9-35.8 [facility] HospitalGpvejxhUHLFRRRMBR1229-25-48 17:55:35 Test Item Value Reference Range Interpretation Comments RBC Morph (test code = Normal (09/15/19 11:55 RBC Morph) AM) [facility] HospitalQkttfdkBRZVULQQWM0143-63-31 17:55:35 Test Item Value Reference Range Interpretation Comments Plt Morph (test code = Normal (09/15/19 11:55 Plt Morph) AM) [facility] [id number] 17:55:35 Test Item Value Reference Range Interpretation Comments Total CK (test code = Total CK) 169 12-191 [facility] OCSCMOS6544-73-01 17:55:35 Test Item Value Reference Range Interpretation Comments Troponin-I (test code no gt See_Comment [Auto mated message] The = Troponin-I) system which g enerated this result transmit evelio reference range : <=0.40. The reference r natasha was not used to interpr et this result as nataliia l/abnormal. [facility] HospitalVrhbcreUNCKNWMCBE0912-39-80 17:55:35 Test Item Value Reference Range Interpretation Comments PT (test code = PT) 12.2 s 12.0-14.7 [facility] HospitalEptotphOMIWVSUIHU9800-27-15 17:55:35 Test Item Value Reference Range Interpretation Comments INR (test code = INR) 0.91 1 0.85-1.17 [facility] HospitalSuxxsbtHBOOJTTPMA3641-34-61 17:55:35 Test Item Value Reference Range Interpretation Comments PTT (test code = PTT) 23.2 s 22.9-35.8 [facility] HospitalKtpqpcfJPCTNXVSQP6929-02-59 17:55:35 Test Item Value Reference Range Interpretation Comments RBC Morph (test code = Normal (09/15/19 11:55 RBC Morph) AM) [facility] HospitalZfcsjtcQJLWIDTUGV0696-84-90 17:55:35 Test Item Value Reference Range Interpretation Comments Plt Morph (test code = Normal (09/15/19 11:55 Plt Morph) AM) [facility] UFDHQBM7808-76-10 17:55:35 Test Item Value Reference Range Interpretation Comments Total CK (test code = Total CK) 169 12-191 [facility] RCVCWFH0799-66-04 17:55:35 Test Item Value Reference Range Interpretation Comments Troponin-I (test code no gt See_Comment [Auto mated message] The = Troponin-I) system which g enerated this result transmit evelio reference range : <=0.40. The reference r natasha was not used to interpr et this result as nataliia l/abnormal. [facility] HospitalJbfwpyqNSHAGKKODW4691-80-66 17:55:35 Test Item Value Reference Range Interpretation Comments PT (test code = PT) 12.2 s 12.0-14.7 [facility] HospitalWyjxgzlUKOTAPDEZU0786-94-88 17:55:35 Test Item Value Reference Range Interpretation Comments INR (test code = INR) 0.91 1 0.85-1.17 [facility] HospitalXxtkzmqNRFSDSLUVN0099-52-79 17:55:35 Test Item Value Reference Range Interpretation Comments PTT (test code = PTT) 23.2 s 22.9-35.8 [facility] HospitalQflcgzaZOKBROWRCR4106-45-47 17:55:35 Test Item Value Reference Range Interpretation Comments RBC Morph (test code = Normal (09/15/19 11:55 RBC Morph) AM) [facility] LancasterLrvbsqnNSHFNHCATK7974-41-00 17:55:35 Test Item Value Reference Range Interpretation Comments Plt Morph (test code = Normal (09/15/19 11:55 Plt Morph) AM) [facility] [id number] 17:55:35 Test Item Value Reference Range Interpretation Comments Total CK (test code = Total CK) 169 12-191 [facility] RSNLAJA3563-66-73 17:55:35 Test Item Value Reference Range Interpretation Comments Troponin-I (test code no gt See_Comment [Auto mated message] The = Troponin-I) system which g enerated this result transmit evelio reference range : <=0.40. The reference r natasha was not used to interpr et this result as nataliia l/abnormal. [facility] LancasterGiiwmovPJFIHWUTFL7977-22-50 17:55:35 Test Item Value Reference Range Interpretation Comments PT (test code = PT) 12.2 s 12.0-14.7 [facility] HospitalZzpnhreKCPXVQTIJJ9923-21-88 17:55:35 Test Item Value Reference Range Interpretation Comments INR (test code = INR) 0.91 1 0.85-1.17 [facility] HospitalIfhwmzvTYFAJHVRZL7157-98-45 17:55:35 Test Item Value Reference Range Interpretation Comments PTT (test code = PTT) 23.2 s 22.9-35.8 [facility] LancasterCtvnraoYRACAVIJOK1735-31-99 17:55:35 Test Item Value Reference Range Interpretation Comments RBC Morph (test code = Normal (09/15/19 11:55 RBC Morph) AM) [facility] HospitalKrkxktgVULTGTUVOD1001-10-70 17:55:35 Test Item Value Reference Range Interpretation Comments Plt Morph (test code = Normal (09/15/19 11:55 Plt Morph) AM) [facility] [id number] 17:55:35 Test Item Value Reference Range Interpretation Comments Total CK (test code = Total CK) 169 12-191 [facility] BZNPQWP6606-61-79 17:55:35 Test Item Value Reference Range Interpretation Comments Troponin-I (test code no gt See_Comment [Auto mated message] The = Troponin-I) system which g enerated this result transmit evelio reference range : <=0.40. The reference r natasha was not used to interpr et this result as nataliia l/abnormal. [facility] LancasterOytdyepYKVTUSDDMH8597-01-90 17:55:35 Test Item Value Reference Range Interpretation Comments PT (test code = PT) 12.2 s 12.0-14.7 [facility] LancasterTsmomrwJRDUHMNDPO2607-51-21 17:55:35 Test Item Value Reference Range Interpretation Comments INR (test code = INR) 0.91 1 0.85-1.17 [facility] LancasterPcstlwzMPXTHOIGGY5113-10-51 17:55:35 Test Item Value Reference Range Interpretation Comments PTT (test code = PTT) 23.2 s 22.9-35.8 [facility] LancasterGvsflusBMGJSZHDXC9702-31-38 17:55:35 Test Item Value Reference Range Interpretation Comments RBC Morph (test code = Normal (09/15/19 11:55 RBC Morph) AM) [facility] LancasterNvjpoduPNAEIRTPOY0264-12-96 17:55:35 Test Item Value Reference Range Interpretation Comments Plt Morph (test code = Normal (09/15/19 11:55 Plt Morph) AM) [facility]
--- NOTE | 2022-10-04 15:08 | RAD REPORT ---
EXAM DESCRIPTION: CT - Head C Spine Cap Wo Con - 10/04/2022 2:51 pm CLINICAL HISTORY: Trauma, head and neck injury. Chest, abdomen and pelvis pain. PAIN COMPARISON: Head C Spine Cap Wo Con dated 07/20/2022; Chest Single View dated 02/25/2021 TECHNIQUE: CT head without contrast. CT cervical spine without contrast with coronal and sagittal reformatted images. CT chest, abdomen and pelvis without contrast with coronal and sagittal reformatted images of the spi ne. All CT scans are performed using dose optimization technique as appropriate and may include automated exposure control or mA/KV adjustment according to patient size. FINDINGS: CT HEAD WITHOUT CONTRAST: No intracranial hemorrhage, hydrocephalus or extra-axial fluid collection. Large areas of gliosis in volving the right cerebral hemisphere. The paranasal sinuses and mastoids are clear. The calvarium is intact. CT CERVICAL SPINE WITHOUT CONTRAST: No fracture or subluxation. There is advanced degenerative spondylosis of the mid and lower cervical spine. The prevertebral soft tissues are normal in thickness. CT CHEST, ABDOMEN, PELVIS WITHOUT CONTRAST: NOTE: Lack of contrast is a significant limitation in the assessment of trauma related findings. Spec ifically, solid organ, vascular and bowel evaluation is significantly limited. The lungs are clear.Trace pleural fluid bilaterally. No evidence of intra-abdominal visceral injury, free fluid or free air is seen within the above detai led limitations. Cholecystectomy. Moderate stool throughout the colon. No concerning pelvic findings. Subacute left lateral rib fractures. IMPRESSION: Negative for acute traumatic findings within the above detailed limitations.
--- NOTE | 2022-10-04 15:41 | RAD REPORT ---
EXAM DESCRIPTION: RAD - Pelvis - 10/04/2022 3:35 pm CLINICAL HISTORY: PAIN COMPARISON: Pelvis dated 10/03/2019 FINDINGS: Examination is quite limited by body habitus as well as body position which is obliquely o riented. Within this limitation. No acute fracture or dislocation is grossly seen.
--- NOTE | 2022-10-04 16:47 | ER ---
Nurse's Notes [facility] Name: Nai Ragland Age: 87 yrs Sex: Female : 1935 Arrival Date: 10/04/2022 Time: 14:14 Bed 24 Private MD: Diagnosis: Fall (on) (from) other stairs and steps-bed;Contusion of right hip;Laceration without foreign body of left hand, initial encounter-skin tear left index;Contusion of right shoulder Presentation: 10/04 14:14 Chief complaint: EMS states: toned out for fall, hit left side of head on bar in eh3 bathroom, fall was witnessed, no LOC. Takes Eliquis 5mg/day. Skin tear on left hand. Coronavirus screen: Vaccine status: Patient reports receiving the 2nd dose of the covid vaccine. Ebola Screen: No symptoms or risks identified at this time. Risk Assessment: Do you want to hurt yourself or someone else? Patient reports no desire to harm self or others. Onset of symptoms was October 04, 2022. 14:14 Method Of Arrival: EMS: [place] [id number] 14:14 Acuity: JT 2 3 14:14 Initial Sepsis Screen: Does the patient meet any 2 criteria? No. Patient's initial 3 sepsis screen is negative. Does the patient have a suspected source of infection? No. Patient's initial sepsis screen is negative. Triage Assessment: 14:15 General: Appears in no apparent distress. uncomfortable, Behavior is calm, cooperative, eh3 appropriate for age. Pain: Complains of pain in right hip, left foot and neck. EENT: No signs and/or symptoms were reported regarding the EENT system. Neuro: Level of Consciousness is awake, alert, obeys commands, Oriented to person, place, time, situation. Cardiovascular: Capillary refill < 3 seconds Patient's skin is warm and dry. Respiratory: Airway is patent Respiratory effort is even, unlabored, Respiratory pattern is regular, symmetrical. GI: Abdomen is round non-distended. : No signs and/or symptoms were reported regarding the genitourinary system. Derm: Skin is pink, warm \T\ dry. Wound noted left temporal area Other: and left hand. Musculoskeletal: Circulation, motion, and sensation intact. Range of motion: limited in left shoulder, left elbow, left wrist and right shoulder. Historical: - Allergies: 14:15 No Known Allergies; eh3 - Home Meds: 14:15 Eliquis 5 mg oral tab 1 tab 2 times per day [Active]; eh3 - PMHx: 14:15 CVA; Asthma; Gastroesophageal reflux disease; Hypertension; eh3 - Immunization history:: Adult Immunizations up to date. - Social history:: Smoking status: Patient denies any tobacco usage or history of. Screenin:35 [facility] ED Fall Risk Assessment (Adult) History of falling in the last 3 months, eh3 including since admission Yes- fall prone (multiple falls) (3 pts) Confusion or Disorientation No (0 pts) Intoxicated or Sedated No (0 pts) Impaired Gait Yes (1 pt) Mobility Assist Device Used Yes (1 pt) Altered Elimination No (0 pt) Score/Fall Risk Level 3 or more points = High Risk Oriented to surroundings, Maintained a safe environment, Educated pt \T\ family on fall prevention, incl call for assistance when getting out of bed, Assessed \T\ reinforced patient's understanding of fall precautions, Provided non-skid footwear, Hourly rounding (assess needs \T\ fall precautionary measures) done, Used ambulatory aids as needed (educated on \T\ assisted with). Abuse screen: Denies threats or abuse. Denies injuries from another. Nutritional screening: No deficits noted. Tuberculosis screening: No symptoms or risk factors identified. Primary Survey: 14:15 NO uncontrolled hemorrhage observed. A: The client responds to verbal stimuli. Airway: eh3 patent, No supplemental oxygen in use on arrival. Oral cavity: clear, Trachea midline. Breathing/Chest: Respiratory effort: spontaneous, unlabored, Breath sounds: wheezes, Respiratory pattern: regular, Chest inspection: symmetrical rise and fall of the chest. Circulation: No external hemorrhage present. Regular and strong central pulse, skin warm/dry/normal color. Disability Pupils are equal, round, reactive to light and accommodation. Client is alert. Client responds to verbal stimuli. Exposure/Environment: All clothing and personal items were removed. Forensic evidence collection is not deemed to be indicated at this time. Items placed in patient belonging bag. Reassessment Alertness and Airway: Airway Patent Oxygen No O2 Oral cavity Clear Trachea Midline Breathing: Respiratory effort Spontaneous Unlabored Breath sounds Wheezes Respiratory pattern Regular Chest inspection Symmetrical Circulation: No external hemorrhage noted. Regular and strong central pulse, skin warm/dry/normal color. Disability: Pupils Pupils are equal, round, reactive to light and accomodation. Alert Verbal stimuli. Assessment: 14:35 Reassessment: No changes from previously documented assessment. See triage assessment. [facility] 15:30 Reassessment: Patient appears in no apparent distress at this time. Patient and/or [facility] family updated on plan of care and expected duration. Pain level reassessed. Patient is alert, oriented x 3, equal unlabored respirations, skin warm/dry/pink. 16:30 Reassessment: Patient appears in no apparent distress at this time. Patient and/or 3 family updated on plan of care and expected duration. Pain level reassessed. Patient is alert, oriented x 3, equal unlabored respirations, skin warm/dry/pink. 17:30 Reassessment: Patient appears in no apparent distress at this time. Patient and/or 3 family updated on plan of care and expected duration. Pain level reassessed. Patient is alert, oriented x 3, equal unlabored respirations, skin warm/dry/pink. 17:45 Reassessment: Nurse to nurse report received by Lavonne Casillas. [facility] Vital Signs: 14:15 BP 139 / 63; Pulse 75; Resp 16; Temp 98.4(O); Pulse Ox 98% ; Weight 83.91 kg; Height 5 3 ft. 4 in. (162.56 cm); Pain 8/10; 15:30 BP 158 / 78; Pulse 68; Resp 16; Pulse Ox 99% on R/A; eh3 16:30 BP 170 / 75; Pulse 71; Resp 16; Pulse Ox 98% on R/A; eh3 17:30 BP 173 / 76; Pulse 76; Resp 16; Pulse Ox 100% on R/A; 3 14:15 Body Mass Index 31.75 (83.91 kg, 162.56 cm) [facility] Vitals: 14:35 Cardiac Rhythm Assessment Sinus rhythm. 3 Temo Coma Score: 14:15 Eye Response: spontaneous(4). Verbal Response: oriented(5). Motor Response: obeys 3 commands(6). Total: 15. Trauma Score (Adult): 14:15 Eye Response: spontaneous(1); Verbal Response: oriented(1); Motor Response: obeys 3 commands(2); Systolic BP: > 89 mm Hg(4); Respiratory Rate: 10 to 29 per min(4); [place] Score: 15; Trauma Score: 12 ED Course: 14:14 Patient arrived in ED. eh3 14:15 Triage completed. eh3 14:15 Arm band placed on. eh3 14:15 Patient maintains SpO2 saturation greater than 95% on room air. eh3 14:24 Flo Franklin MD is Attending Physician. [facility] 14:35 Patient has correct armband on for positive identification. Bed in low position. Call eh3 light in reach. Side rails up X2. Client placed on continuous cardiac and pulse oximetry monitoring. NIBP monitoring applied. Door closed. Noise minimized. Lights dimmed. Warm blanket given. 14:51 Patricia Hernandez, RN is Primary Nurse. 3 14:54 CT Traumagram (Head C Spine CAP wo con) In Process Unspecified. EDMS 15:38 Pelvis XRAY In Process Unspecified. EDMS 16:47 Mumtaz Trivedi MD is Referral Physician. [facility] 17:36 Shoulder Right (2 View) XRAY In Process Unspecified. EDMS 17:54 No provider procedures requiring assistance completed. Patient did not have IV access eh3 during this emergency room visit. Administered Medications: 17:00 Drug: Hydrocodone-Acetaminophen (7.5 mg-325 mg) 1 tabs Route: PO; 3 17:50 Follow up: Response: No adverse reaction 3 17:00 Drug: Bactroban (mupirocin) Ointment 2 % 1 application Route: Topical; Site: left hand; 3 17:50 Follow up: Response: No adverse reaction [facility] Medication: 17:54 VIS not applicable for this client. 3 Outcome: 16:46 Discharge ordered by . [facility] 17:55 Discharged to retirement. Report called to [place] [id number] 17:55 Condition: stable 17:55 Discharge instructions given to patient, retirement, EMS, Instructed on discharge instructions, follow up and referral plans. medication usage, wound care, Demonstrated understanding of instructions, follow-up care, medications, wound care, Prescriptions given X 2. 17:55 Patient left the ED. 3 Signatures: Dispatcher [employer] EDMS Flo Franklin MD MD cha Hall, Erin, RN RN 3 Corrections: (The following items were deleted from the chart) 14:22 14:15 PSHx: ABRIL knee; eh3 eh3
--- NOTE | 2022-10-04 16:47 | EDPHYS ---
Physician Documentation [facility] Name: Nai Ragland Age: 87 yrs Sex: Female : 1935 Arrival Date: 10/04/2022 Time: 14:14 Bed 24 Private MD: ED Physician Flo Franklin HPI: 10/04 16:40 This 87 yrs old Female presents to ER via EMS with complaints of Fall Injury. josé 16:40 Details of fall: The patient fell from a height, bed. Onset: The symptoms/episode josé began/occurred just prior to arrival. Associated injuries: The patient sustained anterior aspect of right shoulder and posterior aspect of right shoulder, contusion, decreased range of motion. Severity of symptoms: At their worst the symptoms were mild, moderate, in the emergency department the symptoms are unchanged. The patient has experienced similar episodes in the past, several times. Historical: - Allergies: 14:15 No Known Allergies; eh3 - Home Meds: 14:15 Eliquis 5 mg oral tab 1 tab 2 times per day [Active]; eh3 - PMHx: 14:15 CVA; Asthma; Gastroesophageal reflux disease; Hypertension; eh3 - Immunization history:: Adult Immunizations up to date. - Social history:: Smoking status: Patient denies any tobacco usage or history of. ROS: 16:41 Constitutional: Negative for fever, chills, and weight loss, Eyes: Negative for injury, josé pain, redness, and discharge, ENT: Negative for injury, pain, and discharge, Neck: Negative for injury, pain, and swelling, Cardiovascular: Negative for chest pain, palpitations, and edema, Respiratory: Negative for shortness of breath, cough, wheezing, and pleuritic chest pain, Abdomen/GI: Negative for abdominal pain, nausea, vomiting, diarrhea, and constipation, Back: Negative for injury and pain, : Negative for injury, bleeding, discharge, and swelling, Skin: Negative for injury, rash, and discoloration, Neuro: Negative for headache, weakness, numbness, tingling, and seizure, Psych: Negative for depression, anxiety, suicide ideation, homicidal ideation, and hallucinations, Allergy/Immunology: Negative for hives, rash, and allergies, Endocrine: Negative for neck swelling, polydipsia, polyuria, polyphagia, and marked weight changes, Hematologic/Lymphatic: Negative for swollen nodes, abnormal bleeding, and unusual bruising. 16:41 MS/extremity: Positive for injury or acute deformity, decreased range of motion, pain, tenderness, of the anterior aspect of right shoulder and posterior aspect of right shoulder. Exam: 16:41 Constitutional: This is a well developed, well nourished patient who is awake, alert, josé and in no acute distress. Head/Face: Normocephalic, atraumatic. Eyes: Pupils equal round and reactive to light, extra-ocular motions intact. Lids and lashes normal. Conjunctiva and sclera are non-icteric and not injected. Cornea within normal limits. Periorbital areas with no swelling, redness, or edema. ENT: Nares patent. No nasal discharge, no septal abnormalities noted. Tympanic membranes are normal and external auditory canals are clear. Oropharynx with no redness, swelling, or masses, exudates, or evidence of obstruction, uvula midline. Mucous membranes moist. Neck: Trachea midline, no thyromegaly or masses palpated, and no cervical lymphadenopathy. Supple, full range of motion without nuchal rigidity, or vertebral point tenderness. No Meningismus. Chest/axilla: Normal chest wall appearance and motion. Nontender with no deformity. No lesions are appreciated. Cardiovascular: Regular rate and rhythm with a normal S1 and S2. No gallops, murmurs, or rubs. Normal PMI, no JVD. No pulse deficits. Respiratory: Lungs have equal breath sounds bilaterally, clear to auscultation and percussion. No rales, rhonchi or wheezes noted. No increased work of breathing, no retractions or nasal flaring. Abdomen/GI: Soft, non-tender, with normal bowel sounds. No distension or tympany. No guarding or rebound. No evidence of tenderness throughout. Back: No spinal tenderness. No costovertebral tenderness. Full range of motion. Female : Normal external genitalia. Skin: Warm, dry with normal turgor. Normal color with no rashes, no lesions, and no evidence of cellulitis. Neuro: Awake and alert, GCS 15, oriented to person, place, time, and situation. Cranial nerves II-XII grossly intact. Motor strength 5/5 in all extremities. Sensory grossly intact. Cerebellar exam normal. Normal gait. Psych: Awake, alert, with orientation to person, place and time. Behavior, mood, and affect are within normal limits. 16:41 Musculoskeletal/extremity: Extremities: grossly normal except: noted in the anterior aspect of right shoulder and posterior aspect of right shoulder: decreased ROM, ROM: limited active range of motion, limited passive range of motion, Circulation is intact in all extremities. Sensation intact. 16:41 Skin: injury, laceration(s), the wound is approximately 2 cm(s), with a depth of 2 cm(s), of the dorsal aspect of proximal phalanx of left index finger. Vital Signs: 14:15 BP 139 / 63; Pulse 75; Resp 16; Temp 98.4(O); Pulse Ox 98% ; Weight 83.91 kg; Height 5 eh3 ft. 4 in. (162.56 cm); Pain 8/10; 15:30 BP 158 / 78; Pulse 68; Resp 16; Pulse Ox 99% on R/A; eh3 16:30 BP 170 / 75; Pulse 71; Resp 16; Pulse Ox 98% on R/A; eh3 17:30 BP 173 / 76; Pulse 76; Resp 16; Pulse Ox 100% on R/A; eh3 14:15 Body Mass Index 31.75 (83.91 kg, 162.56 cm) eh3 [place] Coma Score: 14:15 Eye Response: spontaneous(4). Verbal Response: oriented(5). Motor Response: obeys eh3 commands(6). Total: 15. Trauma Score (Adult): 14:15 Eye Response: spontaneous(1); Verbal Response: oriented(1); Motor Response: obeys eh3 commands(2); Systolic BP: > 89 mm Hg(4); Respiratory Rate: 10 to 29 per min(4); Temo Score: 15; Trauma Score: 12 MDM: 14:24 Patient medically screened. josé 16:43 Differential diagnosis: Anterior dislocation with fracture, Anterior dislocation josé without fracture, Posterior dislocation with fracture, Posterior dislocation without fracture, humeral head fracture, glenoid fracture, DJD, tendonitis, dislocation, hip fracture, intertrochanteric fracture, femoral neck fracture, femoral shaft fracture, bursitis, arthritis, strain. Differential diagnosis: abrasion, closed head injury, contusion, fracture, laceration, multiple trauma, sprain, strain. Data reviewed: vital signs, nurses notes, EMS record, lab test result(s). Consideration of Admission/Observation Patient was admitted/placed on observation. I considered the following discharge prescriptions or medication management in the emergency department Medications were administered in the Emergency Department. See MAR. Test considered but Not performed: MRI: mri head wo. Care significantly affected by the following chronic conditions: Hypertension, gerd, cva. 10/04 14:25 Order name: CT Traumagram (Head C Spine CAP wo con); Complete Time: 16:33 [facility] 10/04 14:25 Order name: Wound Care; Complete Time: 15:44 [facility] 10/04 14:26 Order name: EKG; Complete Time: 14:26 [facility] 10/04 14:26 Order name: EKG - Nurse/Tech; Complete Time: 15:44 [facility] 10/04 15:08 Order name: Pelvis XRAY; Complete Time: 16:33 [facility] 10/04 16:40 Order name: Shoulder Right (2 View) XRAY [facility] 10/04 16:49 Order name: Sling; Complete Time: 17:50 [facility] 10/04 16:49 Order name: Ice pack; Complete Time: 17:50 josé Administered Medications: 17:00 Drug: Hydrocodone-Acetaminophen (7.5 mg-325 mg) 1 tabs Route: PO; eh3 17:50 Follow up: Response: No adverse reaction eh3 17:00 Drug: Bactroban (mupirocin) Ointment 2 % 1 application Route: Topical; Site: left hand; eh3 17:50 Follow up: Response: No adverse reaction eh3 Disposition Summary: 10/04/22 16:46 Discharge Ordered Location: Home josé Condition: Stable josé Diagnosis - Fall (on) (from) other stairs and steps - bed josé - Contusion of right hip josé - Laceration without foreign body of left hand, initial encounter - skin tear left josé index - Contusion of right shoulder josé Followup: josé - With: Private Physician - When: 2 - 3 days - Reason: Recheck today's complaints, Continuance of care, Re-evaluation by your physician Followup: josé - With: Mumtaz Trivedi MD - When: 2 - 3 days - Reason: Recheck today's complaints, Re-evaluation by your physician Discharge Instructions: - Discharge Summary Sheet josé - Fall Prevention in the Home, Adult josé - Laceration Care, Adult josé - Shoulder Pain josé - Skin Tear josé - Shoulder Pain, [id number] josé - Laceration Care, Adult, [id number] josé - Skin Tear, [id number] josé - Fall Prevention in Hospitals, Adult josé Forms: - Medication Reconciliation Form josé - Thank You Letter josé - Antibiotic Education josé - Prescription Opioid Use josé Prescriptions: - Centany 2 % Topical ointment - apply 1 application by TOPICAL route 3 times per day; 30 gram; Refills: 0, josé Product Selection Permitted - Tylenol-Codeine #3 300 mg-30 mg Oral - take 1 tablet by ORAL route every 4-6 hours; 20 tablet; Refills: 0, Product josé Selection Permitted Signatures: Dispatcher [employer] EDMS Flo Franklin MD MD cha Hall, Erin RN RN eh3 Corrections: (The following items were deleted from the chart) 14:22 14:15 PSHx: ABRIL knee; eh3 eh3 15:38 14:26 Hand Left 3 View+RAD.RAD.BRZ ordered. EDMS EDMS 15:38 15:09 Hip Left 2 View+RAD.RAD.BRZ ordered. EDMS EDMS 15:38 15:09 Hip Right 2 View+RAD.RAD.BRZ ordered. EDMS EDMS
[2022-10-04] MEDS ORDERED: MUPIROCIN 2% OINT 22GM TUBE TOP ONE (17:30)
--- NOTE | 2022-10-04 17:47 | RAD REPORT ---
EXAM DESCRIPTION: RAD - Shoulder Right 2 View - 10/04/2022 5:35 pm CLINICAL HISTORY: PAIN COMPARISON: No comparisons FINDINGS: Diffuse osteopenia is seen. Moderate AC joint and glenohumeral joint arthritic changes. No fracture seen. If the patient has persistent shoulder pain, follow-up MRI would be recommended due t o high degree of osteopenia.
[2022-10-04 18:03] VITALS: TEMP 98.4
[2022-10-04 18:06] VITALS: BP 173/76; O2SAT 100
--- NOTE | 2022-10-05 17:28 | EKG ---
Test Date: 2022-10-04 Test Time: 15:18:50 [employer]: HOLLY MEASUREMENT RESULTS: Intervals: Rate: 67 OR: 158 QRSD: 104 QT: 394 QTc: 416 [place]: P: 69 OR: 158 QRS: -61 T: 33 INTERPRETIVE STATEMENTS: Normal sinus rhythm Left axis deviation Possible Anterior infarct, age undetermined Abnormal ECG Compared to ECG 09/11/2022 10:28:31 No significant changes Electronically Signed On 10-05-22 17:26:15 [employer] INVE[employer]IG[employer] by Tin Webb
== END 2022-10-04 17:55 | disposition home or self-care (01) ==
LOC: ER 14:04
DX: S61.211A Laceration without foreign body of left index finger without damage to nail, initial encounter (principal); S40.011A Contusion of right shoulder, initial encounter; S70.01XA Contusion of right hip, initial encounter; W06.XXXA Fall from bed, initial encounter; Z86.73 Personal history of transient ischemic attack (TIA), and cerebral infarction without residual deficits; Z79.01 Long term (current) use of anticoagulants; I10 Essential (primary) hypertension
CPT/HCPCS: 70450; 71250; 72125; 72170; 93005

== ENCOUNTER 2023-01-17 10:17 | Emergency (ER) | payer OTHER ==
--- OUTSIDE RECORDS SUMMARY | 2023-01-17 10:37 | XMS REPORT | Continuity of Care Document ---
:1935 Author Organization [facility] t Address [address] [place] [address] [address] [place] [address] Care Team Providers Name Role Phone Asked, No Pcp Primary Care Physician Unavailable [id number] Attending Clinician Unavailable Yaniv Fontana Attending Clinician Rick Randhawa Attending Clinician [id number] Admitting Clinician Unavailable Bridget Hernandez Admitting Clinician Payers Payer Name Policy Type Policy Number Effective Date Expiration Date Chase malin [facility] 53 [id number] [facility] ADVANTAGE - [facility] Problems Condition Condition Condition Status Onset Resolution Last Treating Co mments Source Name Details Category Date Date Treatment Clinician Date ACUTE ACUTE Diagnosis Active 2019-09-23 Mem oria ISCHEMIC ISCHEMIC 09-15 09:05:00 l RIGHT MCA RIGHT MCA 00:00: Vahid clark STROKE STROKE 00 Active 09/15/2019 [facility] CVA CVA Diagnosis Active 2019-09-15 Mem oria Active 09-15 13:43:00 l 09/15/2019 00:00: Luciano perez [address] LUX LUX Diagnosis Active 2019-09-15 Memoria BILLING BILLING 09-15 13:32:00 l Active 00:00: Ottoniel 09/15/2019 00 [facility] [phone] Primary Problem 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, - [facility] right [facility] CEREB CEREB Diagnosis Active 2019-09-23 Mem oria INFRC D/T INFRC D/T 09:05:00 l UNSP OCCLS UNSP OCCLS He rmann OR STENOS OR STENOS OF OF Active [facility] 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 infarction 11:58:26 l (disorder) (disorder) He rmann Active Problem 12/03/2022 [facility] 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) (disorder) Active Problem 12/03/2022 [facility] Hypertensi Hypertens Problem Active 2022-12-03 Memoria ve will 11:58:26 l disorder, disorder, Herm eduardo systemic systemic arterial arterial (disorder) (disorder) Active Problem 12/03/2022 [facility] Spasticity Spasticit Problem Active 2022-12-03 Memoria (finding) y 11:58:26 l (finding) [place] Active Problem 12/03/2022 [facility] Amnesia Amnesia Problem Active 2022-12-03 Me moria (finding) (finding) 11:58:26 l Active [place] Problem 12/03/2022 [facility] Allergies, Adverse Reactions, Alerts Allergy Allergy Status Severity Reaction(s) Onset Inactive Treating Comm ents Source Name Type Date Date Clinician No Known No Known Active Memori a Medicati Medicati l on on Ottoniel Allergie Allergie s s Social History Social Habit Start Date Stop Date Quantity Comments Source History of Tobacco [facility] - Use [facility] Gender identity [facility] Sexual orientation Method [facility] Social History 2019-09-16 2019-09-16 [facility] 09:43:21 09:43:21 Sex Assigned At [birth year] Met [facility] 00:00:00 00:00:00 Smoking Status Start Date Stop Date Source Tobacco smoking consumption unknown [facility] Tobacco smoking status [facility] Medications Ordered Filled Start Stop Current Ordering Indication Dosage Frequency Signature Comments Components Source Medication Medication Date Date Medication? Clinician (SIG) Name Name baclofen 2021-08 Yes = 1 tab, Me moria mg oral 0-24 PO, BID, # l tablet 16:32: 60 ea, 11 Luciano n 00 Refill(s), Pharmacy: [facility], 149.86, cm, 09/23/20 10:44:00 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, Height, 70, kg, 10/14/20 9:23:00 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, Weight baclofen 2021-08 Yes = 1 tab, Me moria mg oral 0-24 PO, BID, # l tablet 16:32: 60 ea, 11 Luciano n 00 Refill(s), Pharmacy: [facility], 149.86, cm, 09/23/20 10:44:00 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, Height, 70, kg, 10/14/20 9:23:00 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, Weight baclofen 2021-08 Yes = 1 tab, Me moria mg oral 0-24 PO, BID, # l tablet 16:32: 60 ea, 11 Luciano n 00 Refill(s), Pharmacy: [facility], 149.86, cm, 09/23/20 10:44:00 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, Height, 70, kg, 10/14/20 9:23:00 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, Weight baclofen 2021-08 Yes = 1 tab, Me moria mg oral 0-24 PO, BID, # l tablet 16:32: 60 ea, 11 Luciano n 00 Refill(s), Pharmacy: [facility], 149.86, cm, 09/23/20 10:44:00 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, Height, 70, kg, 10/14/20 9:23:00 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, Weight baclofen 2021-08 Yes = 1 tab, Me moria mg oral 0-24 PO, BID, # l tablet 16:32: 60 ea, 11 Luciano n 00 Refill(s), Pharmacy: [facility], 149.86, cm, 09/23/20 10:44:00 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, Height, 70, kg, 10/14/20 9:23:00 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, Weight baclofen 2021-08 Yes = 1 tab, Me moria mg oral 0-24 PO, BID, # l tablet 16:32: 60 ea, 11 Luciano n 00 Refill(s), Pharmacy: [facility], 149.86, cm, 09/23/20 10:44:00 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, Height, 70, kg, 10/14/20 9:23:00 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, Weight meloxicam 2021-0 Yes 15 mg = 1 Mem oria 15 mg oral 3-24 tab, PO, l tablet 14:19: Daily, # Ottoniel 00 30 tab, 0 Refill(s) non-formula 2021-0 Yes stool Memor ia ry 3-24 softner, l 14:19: Refill(s) Ottoniel 00 0 meloxicam 2021-0 Yes 15 mg = 1 Mem oria 15 mg oral 3-24 tab, PO, l tablet 14:19: Daily, # [place] 00 30 tab, 0 Refill(s) non-formula 2021-0 Yes stool Memor ia ry 3-24 softner, l 14:19: Refill(s) [place] 00 0 meloxicam 2-0 Yes 15 mg = 1 Mem oria 15 mg oral 3-24 tab, PO, l tablet 14:19: Daily, # Ottoniel 00 30 tab, 0 Refill(s) non-formula 2021-0 Yes stool Memor ia ry 3-24 softner, l 14:19: Refill(s) Ottoniel 00 0 meloxicam 2-0 Yes 15 mg = 1 Mem oria 15 mg oral 3-24 tab, PO, l tablet 14:19: Daily, # Ottoniel 00 30 tab, 0 Refill(s) non-formula 2021-0 Yes stool Memor ia ry 3-24 softner, l 14:19: Refill(s) Ottoniel 00 0 meloxicam 2-0 Yes 15 mg = 1 Mem oria 15 mg oral 3-24 tab, PO, l tablet 14:19: Daily, # [place] 00 30 tab, 0 Refill(s) non-formula 2021-0 Yes stool Memor ia ry 3-24 softner, l 14:19: Refill(s) [place] 00 0 meloxicam 2-0 Yes 15 mg = 1 Mem oria 15 mg oral 3-24 tab, PO, l tablet 14:19: Daily, # Ottoniel 00 30 tab, 0 Refill(s) non-formula 2021-0 Yes stool Memor ia ry 3-24 softner, l 14:19: Refill(s) [place] 00 0 meloxicam 2021-0 Yes 15 mg = 1 Mem oria 15 mg oral 3-24 tab, PO, l tablet 14:19: Daily, # Ottoniel 00 30 tab, 0 Refill(s) non-formula 2021-0 Yes stool Memor ia ry 3-24 softner, l 14:19: Refill(s) [place] 00 0 meloxicam 2021- Yes 15 mg = 1 Mem oria 15 mg oral 3-24 tab, PO, l tablet 14:19: Daily, # Ottoniel 00 30 tab, 0 Refill(s) non-formula 0 Yes stool Memor ia ry 3-24 softner, l 14:19: Refill(s) [place] 00 0 Melatonin Yes 3 mg = 1 Me moria MG Extended 3-24 tab, PO, l Release 14:18: Bedtime, Luciano n Tablet 00 PRN for insomnia, # 14 tab, 0 Refill(s) melatonin Yes 3 mg = 1 Me moria mg oral 3-24 tab, PO, l tablet 14:18: Bedtime, [place] 00 PRN for insomnia, # 14 tab, 0 Refill(s) Melatonin Yes 3 mg = 1 Me moria MG Extended 3-24 tab, PO, l Release 14:18: Bedtime, Luciano n Tablet 00 PRN for insomnia, # 14 tab, 0 Refill(s) melatonin 0 Yes 3 mg = 1 Me moria mg oral 3-24 tab, PO, l tablet 14:18: Bedtime, Ottoniel 00 PRN for insomnia, # 14 tab, 0 Refill(s) Melatonin 0 Yes 3 mg = 1 Me moria MG Extended 3-24 tab, PO, l Release 14:18: Bedtime, Luciano n Tablet 00 PRN for insomnia, # 14 tab, 0 Refill(s) melatonin 0 Yes 3 mg = 1 Me [...] 3-24 tab, PO, l tablet 14:18: Bedtime, [place] 00 PRN for insomnia, # 14 tab, [...] 3-24 tab, PO, l tablet 14:18: Bedtime, [place] 00 PRN for insomnia, # 14 tab, 0 Refill(s) Melatonin Yes 3 mg = 1 Me moria MG Extended 3-24 tab, PO, l Release 14:18: Bedtime, Luciano n Tablet 00 PRN for insomnia, # 14 tab, 0 Refill(s) melatonin 0 Yes 3 mg = 1 Me [...] tab, PO, l Tablet 14:17: Daily, # [place] 00 30 tab, 0 Refill(s) gabapentin 2022-0 [...] tab, PO, l tablet 14:17: Daily, # [place] 00 30 tab, 0 Refill(s) gabapentin 2021-0 [...] tab, PO, l Tablet 14:17: Daily, # [place] 00 30 tab, 0 Refill(s) gabapentin 2-0 [...] days, # 120 mL, 1 Refill(s) ketoconazol 2022-0 Yes 1 appl, Mem oria e topical 3-24 TOP, l 2% shampoo 14:17: 2x/Wk, Crystal nn 00 separate doses by at least 3 days, # 120 mL, 1 Refill(s) folic acid 2022-0 Yes 1 mg = 1 Mem oria 1 mg oral 3-24 tab, PO, l tablet 14:17: Daily, # [place] 00 30 tab, 0 Refill(s) gabapentin 2022-0 [...] # 120 mL, 1 Refill(s) Folic Acid 0 Yes 1 mg = 1 Mem oria 1 MG Oral 3-24 tab, PO, l Tablet 14:17: Daily, # Ottoniel 00 30 tab, 0 Refill(s) gabapentin 0 Yes 100 mg = 1 M emoria 100 MG Oral 3-24 cap, PO, l Capsule 14:17: TID, # 90 Crystal nn 00 cap, 1 Refill(s) Hydralazine 0 Yes 50 mg = 1 M emoria [...] mg oral 3-24 Refill(s) l tablet 14:16: Betamethaso 0 Yes 1 appl, Mem oria ne 0.5 3-24 TOP, BID, l MG/ML / 14:15: # 15 gm, 0 Herm eduardo Clotrimazol 00 Refill(s) e 10 MG/ML Topical Cream betamethaso 2022-0 Yes 1 appl, Mem oria ne-clotrima 3-24 TOP, BID, l zole 14:15: # 15 gm, 0 [place] topical 00 Refill(s) 0.05%-1% cream Betamethaso 2-0 Yes 1 appl, Mem oria ne 0.5 3-24 TOP, BID, l MG/ML / 14:15: # 15 gm, 0 Herm eduardo Clotrimazol 00 Refill(s) e 10 MG/ML Topical Cream betamethaso 2-0 Yes 1 appl, Mem oria ne-clotrima 3-24 TOP, BID, l zole 14:15: # 15 gm, 0 [place] topical 00 Refill(s) 0.05%-1% cream Betamethaso 2021-0 [...] l zole 14:15: # 15 gm, 0 [place] topical 00 Refill(s) 0.05%-1% cream Betamethaso 2021-0 Yes 1 appl, Mem oria ne 0.5 3-24 TOP, BID, l MG/ML / 14:15: # 15 gm, 0 Herm eduardo Clotrimazol 00 Refill(s) e 10 MG/ML Topical Cream betamethaso 2-0 Yes 1 appl, Mem oria ne-clotrima 3-24 TOP, BID, l zole 14:15: # 15 gm, 0 [place] topical 00 Refill(s) 0.05%-1% cream Betamethaso 2021-0 Yes 1 appl, Mem oria ne 0.5 3-24 TOP, BID, l MG/ML / 14:15: # 15 gm, 0 Herm eduardo Clotrimazol 00 Refill(s) e 10 MG/ML Topical Cream betamethaso 2021-0 Yes 1 appl, Mem oria ne-clotrima 3-24 TOP, BID, l zole 14:15: # 15 gm, 0 Ottoniel topical 00 Refill(s) 0.05%-1% cream betamethaso 2021-0 Yes 1 appl, Mem oria [...] 00 Refill(s) e 10 MG/ML Topical Cream Centrum 2021-0 Yes PO, Daily, Hector imtiaz [...] Crystal nn Bupivicaine Bupivicaine No 2.5mg [place] 1-18 Spirit 00:00: - [facility] Fabioalog Kenalog No 40mg Common (Triamcinol (Triamcinol 1-18 S pirit one) one) 00:00: - [facility] Bupivicaine Bupivicaine 0 No 2.5mg [place] 1-18 Spirit 00:00: - [facility] Kenalog Kenalog 0 No 40mg Common (Triamcinol (Triamcinol 1-18 S pirit one) one) 00:00: - [facility] Bupivicaine Bupivicaine 0 No 2.5mg [place] 7-13 Spirit 00:00: - [facility] Kenalog Kenalog 0 No 40mg Common (Triamcinol (Triamcinol 7-13 S pirit one) one) 00:00: - [facility] Bupivicaine Bupivicaine 0 No 2.5mg [place] 7-13 Spirit 00:00: - [facility] Kenalog Kenalog 0 No 40mg Common (Triamcinol (Triamcinol 7-13 S pirit one) one) 00:00: - [facility] baclofen 10 Yes 10 mg = 1 M emoria mg oral 7-02 tab, PO, l tablet 15:23: BID, # 60 Luciano n 00 tab, 3 Refill(s), Pharmacy: [facility], 149.86, cm, 09/23/20 10:44:00 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, Height, 70, kg, 10/14/20 9:23:00 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, Weight baclofen 10 2020-0 Yes 10 mg = 1 M emoria mg oral 7-02 tab, PO, l tablet 15:23: BID, # 60 Luciano n 00 tab, 3 Refill(s), Pharmacy: [facility], 149.86, cm, 09/23/20 10:44:00 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, Height, 70, kg, 10/14/20 9:23:00 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, Weight baclofen 10 2020-0 Yes 10 mg = 1 M emoria mg oral 7-02 tab, PO, l tablet 15:23: BID, # 60 Luciano n 00 tab, 3 Refill(s), Pharmacy: [facility], 149.86, cm, 09/23/20 10:44:00 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, Height, 70, kg, 10/14/20 9:23:00 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, Weight baclofen 10 2020-0 Yes 10 mg = 1 M emoria mg oral 7-02 tab, PO, l tablet 15:23: BID, # 60 Luciano n 00 tab, 3 Refill(s), Pharmacy: [facility], 149.86, cm, 09/23/20 10:44:00 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, Height, 70, kg, 10/14/20 9:23:00 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, Weight baclofen 10 2020-0 Yes 10 mg = 1 M emoria mg oral 7-02 tab, PO, l tablet 15:23: BID, # 60 Luciano n 00 tab, 3 Refill(s), Pharmacy: [facility], 149.86, cm, 09/23/20 10:44:00 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, Height, 70, kg, 10/14/20 9:23:00 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, Weight baclofen 10 2020-0 Yes 10 mg = 1 M emoria mg oral 7-02 tab, PO, l tablet 15:23: BID, # 60 Luciano n 00 tab, 3 Refill(s), Pharmacy: [facility], 149.86, cm, 09/23/20 10:44:00 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, Height, 70, kg, 10/14/20 9:23:00 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, Weight baclofen 10 2020-0 Yes 10 mg = 1 M emoria mg oral 7-02 tab, PO, l tablet 15:23: BID, # 60 Luciano n 00 tab, 3 Refill(s), Pharmacy: [facility], 149.86, cm, 09/23/20 10:44:00 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, Height, 70, kg, 10/14/20 9:23:00 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, Weight baclofen 10 2020-0 Yes 10 mg = 1 M emoria mg oral 7-02 tab, PO, l tablet 15:23: BID, # 60 Luciano n 00 tab, 3 Refill(s), Pharmacy: [facility], 149.86, cm, 09/23/20 10:44:00 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, Height, 70, kg, 10/14/20 9:23:00 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, Weight Bupivicaine Bupivicaine 2020-0 No 2.5mg [place] 3-23 Spirit 00:00: - [facility] Kenalog Kenalog 2020-0 No 40mg Common (Triamcinol (Triamcinol 3-23 S pirit one) one) 00:00: - [facility] Bupivicaine Bupivicaine 2020-0 No 2.5mg [place] 3-23 Spirit 00:00: - [facility] Kenalog Kenalog 2020-0 No 40mg Common (Triamcinol (Triamcinol 3-23 S pirit one) one) 00:00: - [facility] Kenalog Kenalog 2019-1 No 40mg Common (Triamcinol (Triamcinol 2-15 S pirit one) one) 00:00: - [facility] Bupivicaine Bupivicaine 2019-1 No 2.5mg [place] 2-15 Spirit 00:00: - [facility] Kenalog Kenalog 2019-1 No 40mg Common (Triamcinol (Triamcinol 2-15 S pirit one) one) 00:00: [facility] Bupivicaine Bupivicaine 2019-08 No 2.5mg [place] 2-15 Spirit 00:00: [facility] Baclofen 2019-08 Yes 10 mg, PO, [...] PO, 0 Memoria -12 Refill(s) l 16:08: Baclofen 2019-08 Yes 10 [...] PO, 0 Memoria -12 Refill(s) l 16:08: Baclofen 2019-08 Yes 10 mg, PO, Mem oria -12 0 l 16:08: Refill(s) Omeprazole 2019-08 Yes 20 mg, PO, M emoria 1-12 Daily, 0 l 16:08: Refill(s) Furosemide 2019-08 Yes 40 mg, PO, M emoria 1-12 Daily, 0 l 16:08: Refill(s) Losartan 2019-08 Yes PO, Daily, Mem oria -12 0 l 16:08: Refill(s) Eliquis 2019-08 Yes PO, 0 Memoria 12 Refill(s) l 16:08: gabapentin 2019-08 Yes 100 [...] oria 1-12 0 l 16:08: Refill(s) Eliquis 2019- Yes PO, 0 Memoria 1-12 Refill(s) l [...] 16:08: Bupivicaine Bupivicaine 2019-0 No 4mL [place] 7-20 Spirit 00:00: - [facility] Kenalog Kenalog 2019-0 No 40mg Common (Triamcinol (Triamcinol 7-20 S pirit one) one) 00:00: - [facility] Bupivicaine Bupivicaine 2019-0 No 4mL [place] 7-20 Spirit 00:00: - [facility] Kenalog Kenalog 2019-0 No 40mg Common (Triamcinol (Triamcinol 7-20 S pirit one) one) 00:00: - [facility] remove 2019- No Notes: Memoria patch 2-22 Remove l 11:00: patch 12 [place] 00 hours after applicatio n each day. remove No Notes: Memoria patch 2-22 Remove l 11:00: patch 12 [place] 00 hours after applicatio n each day. remove No Notes: Memoria patch 2-22 Remove l 11:00: patch 12 [place] 00 hours after applicatio n each day. remove 2019-0 No Notes: Memoria patch 2-22 Remove l 11:00: patch 12 Ot[place]iel 00 hours after applicatio n each day. remove 2019-0 No Notes: Memoria patch 2-22 Remove l 11:00: patch 12 [place] 00 hours after applicatio n each day. remove 0 No Notes: Memoria patch 2-22 Remove l 11:00: patch 12 [place] 00 hours after applicatio n each day. [...] 4-6, Patch Start [Lidoderm] date: 09/26/19 13:46:00 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, Duration: 30 day, Stop date: 10/26/19 13:45:00 CDT, Remove after 12 hours Lidocaine 2020-0 No 1 patch, Hector imtiaz Hydrochlori 2-21 Route: l de 0.05 19:46: TOP, Q12H, Herm eduardo MG/MG 00 PRN Pain Transdermal Score 4-6, Patch Start [Lidoderm] date: 09/26/19 13:46:00 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, Duration: 30 day, Stop date: 10/26/19 13:45:00 CDT, Remove after 12 hours Lidocaine 2020-0 No 1 patch, Hector imtiaz Hydrochlori 2-21 Route: l de 0.05 19:46: TOP, Q12H, Herm eduardo MG/MG 00 PRN Pain Transdermal Score 4-6, Patch Start [Lidoderm] date: 09/26/19 13:46:00 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, Duration: 30 day, Stop date: 10/26/19 13:45:00 CDT, Remove after 12 hours Lidocaine 2020-0 No 1 patch, Hector imtiaz Hydrochlori 2-21 Route: l de 0.05 19:46: TOP, Q12H, Herm eduardo MG/MG 00 PRN Pain Transdermal Score 4-6, Patch Start [Lidoderm] date: 09/26/19 13:46:00 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, Duration: 30 day, Stop date: 10/26/19 13:45:00 CDT, Remove after 12 hours Lidocaine 2020-0 No 1 patch, Hector imtiaz Hydrochlori 2-21 Route: l de 0.05 19:46: TOP, Q12H, Herm eduardo MG/MG 00 PRN Pain Transdermal Score 4-6, Patch Start [Lidoderm] date: 09/26/19 13:46:00 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, Duration: 30 day, Stop date: 10/26/19 13:45:00 CDT, Remove after 12 hours Lidocaine 2020-0 No 1 patch, Hector imtiaz Hydrochlori 2-21 Route: l de 0.05 19:46: TOP, Q12H, Herm eduardo MG/MG 00 PRN Pain Transdermal Score 4-6, Patch Start [Lidoderm] date: 09/26/19 13:46:00 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, Duration: 30 day, Stop date: 10/26/19 13:45:00 CDT, Remove after 12 hours Lidocaine 2020-0 No 1 patch, Hector imtiaz Hydrochlori 2-21 Route: l de 0.05 19:46: TOP, Q12H, Herm eduardo MG/MG 00 PRN Pain Transdermal Score 4-6, Patch Start [Lidoderm] date: 09/26/19 13:46:00 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, Duration: 30 day, Stop date: 10/26/19 13:45:00 CDT, Remove after 12 hours Lidocaine 2020-0 No 1 patch, Hector imtiaz Hydrochlori 2-21 Route: l de 0.05 19:46: TOP, Q12H, Herm eduardo MG/MG 00 PRN Pain Transdermal Score 4-6, Patch Start [Lidoderm] date: 09/26/19 13:46:00 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, Duration: 30 day, Stop date: 10/26/19 13:45:00 CDT, Remove after 12 hours Aspirin 81 2020-0 Yes 81 mg = 1 Me moria MG Enteric 2-21 tab, PO, l Coated 15:05: Daily, 0 [place] Tablet 00 Refill(s) atorvastati 2020-0 Yes 80 mg = 1 M emoria n 80 mg 2-21 tab, PO, l oral tablet 15:05: Bedtime, 0 Ottoniel 00 Refill(s) clopidogrel 2020-0 Yes 75 mg = 1 M emoria 75 mg oral 2-21 tab, PO, l tablet 15:05: Daily, 0 [place] 00 Refill(s) tamsulosin 2020-0 Yes 0.4 mg [...] 2-21 RTID, PRN l / 15:05: Respirator [place] Ipratropium [address], [place] 0 0.167 MG/ML Refill(s) Inhalant Solution [DuoNeb] [...] PO, l oral tablet 15:05: Bedtime, 0 [place] 00 Refill(s) clopidogrel 2020-0 Yes 75 mg = 1 M emoria 75 mg oral 2-21 tab, PO, l tablet 15:05: Daily, 0 Ottoniel 00 Refill(s) tamsulosin 2020-0 Yes 0.4 mg = 1 M emoria 0.4 mg oral 2-21 cap, PO, l capsule 15:05: After [place] 00 Dinner, 0 Refill(s) melatonin 3 2020-0 Yes 3 mg = 1 Me moria mg oral 2-21 tab, PO, l tablet 15:05: Bedtime, 0 Crystal nn 00 Refill(s) Albuterol 2020-0 Yes 3 mL, NEB, Me moria 0.833 MG/ML 2-21 RTID, PRN l / 15:05: Respirator [place] Ipratropium [address], [place] 0 0.167 MG/ML Refill(s) Inhalant Solution [DuoNeb] Budesonide 2020-0 Yes 2 Memoria 0.16 2-21 inhalation l MG/ACTUAT / 15:05: , Luciano n formoterol 00 INHALATION fumarate , RBID, 0 0.0045 Refill(s) MG/ACTUAT Metered Dose Inhaler labetalol 2020-0 Yes 200 mg = 1 Me moria 200 mg oral 2-21 tab, PO, l tablet 15:05: Q8H, 0 [place] 00 Refill(s) Aspirin 81 2020-0 Yes 81 [...] tab, PO, l tablet 15:05: Daily, 0 [place] 00 Refill(s) tamsulosin 2020-0 Yes 0.4 mg = 1 M emoria 0.4 mg oral 2-21 cap, PO, l capsule 15:05: After [place] 00 Dinner, 0 Refill(s) melatonin 3 2020-0 Yes 3 mg = 1 Me moria mg oral 2-21 tab, PO, l tablet 15:05: Bedtime, 0 Crystal nn 00 Refill(s) Albuterol 2020-0 Yes 3 mL, NEB, Me moria 0.833 MG/ML 2-21 RTID, PRN l / 15:05: Respirator Ottoniel Ipratropium 00 [address], [place] 0 0.167 MG/ML Refill(s) Inhalant Solution [DuoNeb] Budesonide 2020-0 Yes 2 Memoria 0.16 2-21 inhalation l MG/ACTUAT / 15:05: , Luciano n formoterol 00 INHALATION fumarate , RBID, 0 0.0045 Refill(s) MG/ACTUAT Metered Dose Inhaler labetalol 2020-0 Yes 200 mg = 1 Me moria 200 mg oral 2-21 tab, PO, l tablet 15:05: Q8H, 0 [place] Refill(s) Aspirin 81 2020-0 Yes 81 mg = 1 Me moria MG Enteric 2-21 tab, PO, l Coated 15:05: Daily, 0 [place] Tablet 00 Refill(s) atorvastati 2020-0 Yes 80 mg = 1 M emoria n 80 mg 2-21 tab, PO, l oral tablet 15:05: Bedtime, 0 [place] 00 Refill(s) clopidogrel 2020-0 Yes 75 mg [...] 15:05: Respirator Ottoniel Ipratropium [address], [place] 0 0.167 MG/ML Refill(s) Inhalant Solution [DuoNeb] Aspirin 81 2020-0 Yes 81 mg = 1 Me moria MG Enteric 2-21 tab, PO, l Coated 15:05: Daily, 0 [place] Tablet 00 Refill(s) atorvastati 2020-0 Yes 80 mg = 1 M emoria n 80 mg 2-21 tab, PO, l oral tablet 15:05: Bedtime, 0 [place] 00 Refill(s) clopidogrel 2020-0 Yes 75 mg = 1 M emoria 75 mg oral 2-21 tab, PO, l tablet 15:05: Daily, 0 [place] 00 Refill(s) tamsulosin 2020-0 Yes 0.4 mg = 1 M emoria 0.4 mg oral 2-21 cap, PO, l capsule 15:05: After [place] 00 Dinner, 0 Refill(s) melatonin 3 2020-0 [...] 2-21 RTID, PRN l / 15:05: Respirator [place] Ipratropium 00 [address], [place] 0 0.167 MG/ML Refill(s) Inhalant Solution [DuoNeb] Budesonide 2020-0 Yes 2 Memoria 0.16 2-21 inhalation l MG/ACTUAT / 15:05: , Luciano n formoterol 00 INHALATION fumarate , RBID, 0 0.0045 Refill(s) MG/ACTUAT Metered Dose Inhaler labetalol 2020-0 Yes 200 mg = 1 Me moria 200 mg oral 2-21 tab, PO, l tablet 15:05: Q8H, 0 Ottoniel 00 Refill(s) labetalol 2020-0 Yes 200 mg = 1 Me moria 200 mg oral 2-21 tab, PO, l tablet 15:05: Q8H, 0 [place] 00 Refill(s) Aspirin 81 2020-0 Yes 81 mg = 1 Me moria MG Enteric 2-21 tab, PO, l Coated 15:05: Daily, 0 [place] Tablet 00 Refill(s) atorvastati 2020-0 Yes 80 mg = 1 M emoria n 80 mg 2-21 tab, PO, l oral tablet 15:05: Bedtime, 0 [place] 00 Refill(s) clopidogrel 2020-0 Yes 75 mg = 1 M emoria 75 mg oral 2-21 tab, PO, l tablet 15:05: Daily, 0 Ottoniel 00 Refill(s) tamsulosin 2020-0 Yes 0.4 mg = 1 M emoria 0.4 mg oral 2-21 cap, PO, l capsule 15:05: After [place] 00 Dinner, 0 Refill(s) melatonin 3 2020-0 Yes 3 mg = 1 Me moria mg oral 2-21 tab, PO, l tablet 15:05: Bedtime, 0 Crystal nn 00 Refill(s) Albuterol 2020-0 Yes 3 mL, NEB, Me moria 0.833 MG/ML 2-21 RTID, PRN l / 15:05: Respirator [place] Ipratropium 00 [address], [place] 0 0.167 MG/ML Refill(s) Inhalant Solution [DuoNeb] Budesonide 2020-0 Yes 2 Memoria 0.16 2-21 inhalation l MG/ACTUAT / 15:05: , Luciano n formoterol 00 INHALATION fumarate , RBID, 0 0.0045 Refill(s) MG/ACTUAT Metered Dose Inhaler labetalol 2020-0 Yes 200 mg = 1 Me moria 200 mg oral 2-21 tab, PO, l tablet 15:05: Q8H, 0 [place] 00 Refill(s) Aspirin 81 2020-0 Yes 81 mg = 1 Me moria MG Enteric 2-21 tab, PO, l Coated 15:05: Daily, 0 [place] Tablet 00 Refill(s) atorvastati 2020-0 Yes 80 [...] tab, PO, l tablet 15:05: Bedtime, 0 Crsytal nn 00 Refill(s) Albuterol 2020-0 Yes 3 mL, NEB, Me moria 0.833 MG/ML 2-21 RTID, PRN l / 15:05: Respirator Ottoniel Ipratropium 00 [address], [place] 0 0.167 MG/ML Refill(s) Inhalant Solution [DuoNeb] [...] 2-21 cap, PO, l capsule 15:05: After [place] 00 Dinner, 0 Refill(s) melatonin 3 2020-0 Yes 3 mg = 1 Me moria mg oral 2-21 tab, PO, l tablet 15:05: Bedtime, 0 Crystal nn 00 Refill(s) Albuterol 2020-0 Yes 3 mL, NEB, Me moria 0.833 MG/ML 2-21 RTID, PRN l / 15:05: Respirator Ot[place]iel Ipratropium [address], [place] 0 0.167 MG/ML Refill(s) Inhalant Solution [DuoNeb] Budesonide 0 Yes 2 Memoria 0.16 2-21 inhalation l MG/ACTUAT / 15:05: , Luciano n formoterol 00 INHALATION fumarate , RBID, 0 0.0045 Refill(s) MG/ACTUAT Metered Dose Inhaler labetalol 0 Yes 200 mg = 1 Me moria 200 mg oral 2-21 tab, PO, l tablet 15:05: Q8H, 0 [place] 00 Refill(s) budesonide- 2019-0 No Notes: Hector imtiaz formoterol 2-21 (Same as: l 160 mcg-4.5 14:16: Symbicort) Ottoniel mcg/inh 00 WASTE: inhalation Aerosol - aerosol Return to with Pharmacy adapter budesonide- 2020-0 No Notes: Hector imtiaz formoterol 2-21 (Same as: l 160 mcg-4.5 14:16: Symbicort) [place] mcg/inh 00 WASTE: inhalation Aerosol - aerosol [...] (Same as: l 160 mcg-4.5 14:16: Symbicort) [place] mcg/inh 00 WASTE: inhalation Aerosol - aerosol Return to with Pharmacy adapter budesonide- 2020-0 No Notes: Hector imtiaz formoterol 2-21 (Same as: l 160 mcg-4.5 14:16: Symbicort) [place] mcg/inh 00 WASTE: inhalation Aerosol - aerosol Return to with Pharmacy adapter budesonide- 2020-0 No Notes: Hector imtiaz formoterol 2-21 (Same as: l 160 mcg-4.5 14:16: Symbicort) [place] mcg/inh 00 WASTE: inhalation Aerosol - aerosol Return to with Pharmacy adapter Mucinex 2020-0 No Notes: Memoria 2-21 (Same as: l 03:00: Guaifenesi [place] 00 n [place], Humibid [place], Mucinex) "Do Not Crush" Take medication with plenty of water. Guanfacine 2020-0 No 1 mg, Memori a 2-21 Route: PO, l 03:00: Drug form: [place] 00 TAB, Bedtime, Dosing Weight 68.182, kg, Start date: 09/25/19 21:00:00 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, Duration: 30 day, Stop date: 10/24/19 21:00:00 CDT Mucinex 2020-0 No Notes: [facility] 2-21 (Same as: l 03:00: Guaifenesi [place] 00 n [place], Humibid [place], Mucinex) "Do Not Crush" Take medication with plenty of water. Guanfacine 2020-0 No 1 mg, Memori a 2-21 Route: PO, l 03:00: Drug form: [place] 00 TAB, Bedtime, Dosing Weight 68.182, kg, Start date: 09/25/19 21:00:00 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, Duration: 30 day, Stop date: 10/24/19 21:00:00 CDT Mucinex 2020-0 No Notes: [facility] 2-21 (Same as: l 03:00: Guaifenesi [place] 00 n [place], Humibid [place], Mucinex) "Do Not Crush" Take medication with plenty of water. Guanfacine 2020-0 No 1 mg, Memori a 2-21 Route: PO, l 03:00: Drug form: [place]iel 00 TAB, Bedtime, Dosing Weight 68.182, kg, Start date: 09/25/19 21:00:00 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, Duration: 30 day, Stop date: 10/24/19 21:00:00 CDT Mucinex 2020-0 No Notes: [facility] 2-21 (Same as: l 03:00: Guaifenesi [place] 00 n [place], Humibid [place], Mucinex) "Do Not Crush" Take medication with plenty of water. Guanfacine 2020-0 No 1 mg, Memori a 2-21 Route: PO, l 03:00: Drug form: [place] 00 TAB, Bedtime, Dosing Weight 68.182, kg, Start date: 09/25/19 21:00:00 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, Duration: 30 day, Stop date: 10/24/19 21:00:00 CDT Mucinex 2020-0 No Notes: [facility] 2-21 (Same as: l 03:00: Guaifenesi [place] 00 n [place], Humibid [place], Mucinex) "Do Not Crush" Take medication with plenty of water. Guanfacine 2020-0 No 1 mg, Memori a 2-21 Route: PO, l 03:00: Drug form: [place] 00 TAB, Bedtime, Dosing Weight 68.182, kg, Start date: 09/25/19 21:00:00 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, Duration: 30 day, Stop date: 10/24/19 21:00:00 CDT Mucinex 2020-0 No Notes: [facility] 2-21 (Same as: l 03:00: Guaifenesi [place] 00 n [place], Humibid [place], Mucinex) "Do Not Crush" Take medication with plenty of water. Guanfacine 2020-0 No 1 mg, Memori a 2-21 Route: PO, l 03:00: Drug form: [place] 00 TAB, Bedtime, Dosing Weight 68.182, kg, Start date: 09/25/19 21:00:00 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, Duration: 30 day, Stop date: 10/24/19 21:00:00 CDT Mucinex 2020-0 No Notes: [facility] 2-21 (Same as: l 03:00: Guaifenesi [place] 00 n [place], Humibid [place], Mucinex) "Do Not Crush" Take medication with plenty of water. Guanfacine 2020-0 No 1 mg, Memori a 2-21 Route: PO, l 03:00: Drug form: [place] 00 TAB, Bedtime, Dosing Weight 68.182, kg, Start date: 09/25/19 21:00:00 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, Duration: 30 day, Stop date: 10/24/19 21:00:00 CDT Mucinex 2020-0 No Notes: [facility] 2-21 (Same as: l 03:00: Guaifenesi [place] 00 n [place], Humibid LA, Mucinex) "Do Not Crush" Take medication with plenty of water. Guanfacine 2019-0 No 1 mg, Memori a 2-21 Route: PO, l 03:00: Drug form: [place] 00 TAB, Bedtime, Dosing Weight 68.182, kg, Start date: 09/25/19 21:00:00 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, Duration: 30 day, Stop date: 10/24/19 21:00:00 CDT Advair HFA 2020-0 No 2 puff, Hector imtiaz 115 mcg-21 2-20 Route: l mcg/inh 23:00: INHALATION Herm eduardo inhalation 00 , Dosing aerosol Weight with 68.182, adapter kg, BID, Start date: 09/25/19 17:00:00 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, Duration: 30 day, Stop date: 10/25/19 9:00:00 CDT Advair HFA 2020-0 No 2 puff, Hector imtiaz 115 mcg-21 2-20 Route: l mcg/inh 23:00: INHALATION Herm eduardo inhalation 00 , Dosing aerosol Weight with 68.182, adapter kg, BID, Start date: 09/25/19 17:00:00 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, Duration: 30 day, Stop date: 10/25/19 9:00:00 CDT Advair HFA 2020-0 No 2 puff, Hector imtiaz 115 mcg-21 2-20 Route: l mcg/inh 23:00: INHALATION Herm eduardo inhalation 00 , Dosing aerosol Weight with 68.182, adapter kg, BID, Start date: 09/25/19 17:00:00 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, Duration: 30 day, Stop date: 10/25/19 9:00:00 CDT Advair HFA 2020-0 No 2 puff, Hector imtiaz 115 mcg-21 2-20 Route: l mcg/inh 23:00: INHALATION Herm eduardo inhalation 00 , Dosing aerosol Weight with 68.182, adapter kg, BID, Start date: 09/25/19 17:00:00 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, Duration: 30 day, Stop date: 10/25/19 9:00:00 CDT Advair HFA 2020-0 No 2 puff, Hector imtiaz 115 mcg-21 2-20 Route: l mcg/inh 23:00: INHALATION Herm eduardo inhalation 00 , Dosing aerosol Weight with 68.182, adapter kg, BID, Start date: 09/25/19 17:00:00 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, Duration: 30 day, Stop date: 10/25/19 9:00:00 CDT Advair HFA 2020-0 No 2 puff, Hector imtiaz 115 mcg-21 2-20 Route: l mcg/inh 23:00: INHALATION Herm eduardo inhalation 00 , Dosing aerosol Weight with 68.182, adapter kg, BID, Start date: 09/25/19 17:00:00 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, Duration: 30 day, Stop date: 10/25/19 9:00:00 CDT Advair HFA 2020-0 No 2 puff, Hector imtiaz 115 mcg-21 2-20 Route: l mcg/inh 23:00: INHALATION Herm eduardo inhalation 00 , Dosing aerosol Weight with 68.182, adapter kg, BID, Start date: 09/25/19 17:00:00 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, Duration: 30 day, Stop date: 10/25/19 9:00:00 CDT Advair HFA 2020-0 No 2 puff, Hector imtiaz 115 mcg-21 2-20 Route: l mcg/inh 23:00: INHALATION Herm eduardo inhalation 00 , Dosing aerosol Weight with 68.182, adapter kg, BID, Start date: 09/25/19 17:00:00 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, Duration: 30 day, Stop date: 10/25/19 9:00:00 CDT Albuterol 2020-0 No Notes: Memori a 0.833 MG/ML 2-20 (Same as: l / 17:00: Duoneb) [place] Ipratropium 00 [place] 0.167 MG/ML Inhalant Solution [DuoNeb] Albuterol 2020-0 No Notes: Memori a 0.833 MG/ML 2-20 (Same as: l / 17:00: Duoneb) Ot[place]iel Ipratropium 00 [place] 0.167 MG/ML Inhalant Solution [DuoNeb] Albuterol 2020-0 No Notes: Memori a 0.833 MG/ML 2-20 (Same as: :00: Duoneb) [place]iel Ipratropium 00 [place] 0.167 MG/ML Inhalant Solution [DuoNeb] Albuterol 2020-0 No Notes: Memori a 0.833 MG/ML 2-20 (Same as: l 17:00: Duoneb) [place] Ipratropium 00 [place] 0.167 MG/ML Inhalant Solution [DuoNeb] Albuterol 2020-0 No Notes: Memori a 0.833 MG/ML 2-20 (Same as: l :00: Duoneb) Ot[place]iel Ipratropium 00 [place] 0.167 MG/ML Inhalant Solution [DuoNeb] Albuterol 2019-0 No Notes: Memori a 0.833 MG/ML 2-20 (Same as: :: Duoneb) [place] Ipratropium 00 [place] 0.167 MG/ML Inhalant Solution [DuoNeb] Albuterol 2020-0 No Notes: Memori a 0.833 MG/ML 2-20 (Same as: :: Duoneb) [place] Ipratropium 00 [place] 0.167 MG/ML Inhalant Solution [DuoNeb] Albuterol 2020-0 No Notes: Memori a 0.833 MG/ML 2-20 (Same as: :00: Duoneb) [place]iel Ipratropium 00 [place] 0.167 MG/ML Inhalant Solution [DuoNeb] Aspirin 81 2019-0 No Notes: Memor ia MG Enteric 2-20 Take with l Coated 16:00: food. [place] Tablet 00 Potassium 2020-0 No Notes: Memori [...] 2-20 Take with l Coated 16:00: food. [place] Tablet 00 Potassium 2020-0 No Notes: Memori [...] 2-20 Take with l Coated 16:00: food. [place] Tablet 00 Potassium 0 No Notes: Memori [...] 2-20 Take with l Coated 16:00: food. [place] Tablet 00 Potassium No Notes: Memori a Chloride 2-20 (Same as: l 1.33 MEQ/ML 16:00: Potassium H ermann Oral 00 Chloride) Solution Magnesium 0 No Notes: Memori a Sulfate 2-20 WASTE: F/P l 14:11: - Sink; E [place] - [facility] Magnesium 0 No Notes: Memori a Sulfate 2-20 WASTE: F/P l 14:11: - Sink; E [place] - [facility] Magnesium 0 No Notes: Memori a Sulfate 2-20 WASTE: F/P l 14:11: - Sink; E [place] - [facility] Magnesium 0 No Notes: Memori a Sulfate 2-20 WASTE: F/P l 14:11: - Sink; E [place] - [facility] Magnesium 0 No Notes: Memori a Sulfate 2-20 WASTE: F/P l 14:11: - Sink; E [place] - [facility] Magnesium 0 No Notes: Memori a Sulfate 2-20 WASTE: F/P l 14:11: - Sink; E [place] - [facility] Magnesium No Notes: Memori a Sulfate 2-20 WASTE: F/P l 14:11: - Sink; E [place] [facility] Magnesium 0 No Notes: Memori a Sulfate 2-20 WASTE: F/P l 14:11: - Sink; E [place] [facility] Plavix No Notes: [facility] 2-19 (Same As: l 20:29: Plavix) Plavix No Notes: [facility] 2-19 (Same As: l 20:29: Plavix) [place] 00 Plavix No Notes: [facility] 2-19 (Same As: l 20:29: Plavix) [place]iel Plavix No Notes: [facility] 2-19 (Same As: l 20:29: Plavix) [place] Plavix No Notes: [facility] 2-19 (Same As: l 20:29: Plavix) Ot[place]iel 00 Plavix No Notes: [facility] 2-19 (Same As: l 20:29: Plavix) [place] Plavix No Notes: [facility] 2-19 (Same As: l 20:29: Plavix) Ot[place]iel Plavix No Notes: [facility] 2-19 (Same As: l 20:29: Plavix) Ot[place]iel 00 Albuterol No Notes: Memori a 0.833 MG/ML 2-19 (Same as: l / 20:27: Duoneb) [place] Ipratropium 00 [place] 0.167 MG/ML Inhalant Solution [DuoNeb] Albuterol No Notes: Memori a 0.833 MG/ML 2-19 (Same as: l / 20:27: Duoneb) [place] Ipratropium 00 [place] 0.167 MG/ML Inhalant Solution [DuoNeb] Albuterol 0 No Notes: Memori a 0.833 MG/ML 2-19 (Same as: : Duoneb) [place] Ipratropium 00 [place] 0.167 MG/ML Inhalant Solution [DuoNeb] Albuterol 2020-0 No Notes: Memori a 0.833 MG/ML 2-19 (Same as: :: Duoneb) [place]iel Ipratropium 00 [place] 0.167 MG/ML Inhalant Solution [DuoNeb] Albuterol 2020-0 No Notes: Memori a 0.833 MG/ML 2-19 (Same as: :: Duoneb) Ot[place]iel Ipratropium 00 [place] 0.167 MG/ML Inhalant Solution [DuoNeb] Albuterol 2020-0 No Notes: Memori a 0.833 MG/ML 2-19 (Same as: : Duoneb) [place] Ipratropium 00 [place] 0.167 MG/ML Inhalant Solution [DuoNeb] Albuterol 2020-0 No Notes: Memori a 0.833 MG/ML 2-19 (Same as: : Duoneb) [place]iel Ipratropium 00 [place] 0.167 MG/ML Inhalant Solution [DuoNeb] Albuterol 2020-0 No Notes: Memori a 0.833 MG/ML 2-19 (Same as: : Duoneb) [place]iel Ipratropium 00 [place] 0.167 MG/ML Inhalant Solution [DuoNeb] Labetalol 2020-0 No Notes: Memori a 2-18 With food. l 23:40: (Same [place] 00 as:Trandat e, Normodyne) Labetalol 2020-0 No Notes: Memori a 2-18 With food. l 23:40: (Same [place] 00 as:Trandat e, Normodyne) Labetalol 2020-0 No Notes: Memori a 2-18 With food. l 23:40: (Same Ottoniel 00 as:Trandat e, Normodyne) Labetalol 2020-0 No Notes: Memori a 2-18 With food. l 23:40: (Same Ottoniel 00 as:Trandat e, Normodyne) Labetalol 2019-0 No Notes: Memori a 2-18 With food. l 23:40: (Same Ottoniel 00 as:Trandat e, Normodyne) Labetalol 0 No Notes: Memori a 2-18 With food. l 23:40: (Same Ottoniel 00 as:Trandat e, Normodyne) Labetalol 0 No Notes: Memori a 2-18 With food. l 23:40: (Same [place] 00 as:Trandat e, Normodyne) Labetalol 0 No Notes: Memori a 2-18 With food. l 23:40: (Same Ot[place]iel 00 as:Trandat e, Normodyne) Docusate No Notes: [facility] Sodium 50 2-18 (Same as l MG / 15:00: Senokot-S) [place] sennosides, 00 Equiv. to [facility] 8.6 MG Nikki-Colac Oral Tablet e. Docusate No Notes: [facility] Sodium 50 2-18 (Same as l MG / 15:00: Senokot-S) [place] sennosides, 00 Equiv. to [facility] 8.6 MG Nikki-[place] Oral Tablet e. Docusate No Notes: [facility] Sodium 50 2-18 (Same as l MG / 15:00: Senokot-S) [place] sennosides, 00 Equiv. to [facility] 8.6 MG Nikki-[place] Oral Tablet e. Docusate No Notes: [facility] Sodium 50 2-18 (Same as l MG / 15:00: Senokot-S) [place] sennosides, 00 Equiv. to [facility] 8.6 MG Nikki-[place] Oral Tablet e. Docusate No Notes: [facility] Sodium 50 2-18 (Same as l MG / 15:00: Senokot-S) [place] sennosides, 00 Equiv. to [facility] 8.6 MG Nikki-[place] Oral Tablet e. Docusate 0 No Notes: [facility] Sodium 50 2-18 (Same as l MG / 15:00: Senokot-S) [place] sennosides, 00 Equiv. to [facility] 8.6 MG Nikki-[place] Oral Tablet e. Docusate 2020-0 No Notes: [facility] Sodium 50 2-18 (Same as l MG / 15:00: Senokot-S) [place] sennosides, 00 Equiv. to [facility] 8.6 MG Nikki-[place] Oral Tablet e. Docusate 2020-0 No Notes: [facility] Sodium 50 2-18 (Same as l MG / 15:00: Senokot-S) [place] sennosides, 00 Equiv. to [facility] 8.6 MG Nikki-[place] Oral Tablet e. magnesium [...] 2-16 Route: PO, l 22:00: Drug form: [place] 00 TAB, Q8H, Start date: 09/21/19 16:00:00 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, Duration: 30 day, Stop date: 10/21/19 8:00:00 CDT, 0 Cardizem 2020-0 No 60 mg, [facility] 2-16 Route: PO, l 22:00: Drug form: [place] 00 TAB, Q8H, Start date: 09/21/19 16:00:00 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, Duration: 30 day, Stop date: 10/21/19 8:00:00 CDT, 0 Cardizem 2020-0 No 60 mg, [facility] 2-16 Route: PO, l 22:00: Drug form: [place] 00 TAB, Q8H, Start date: 09/21/19 16:00:00 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, Duration: 30 day, Stop date: 10/21/19 8:00:00 CDT, 0 Cardizem 2020-0 No 60 mg, [facility] 2-16 Route: PO, l 22:00: Drug form: [place] 00 TAB, Q8H, Start date: 09/21/19 16:00:00 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, Duration: 30 day, Stop date: 10/21/19 8:00:00 CDT, 0 Cardizem 2020-0 No 60 mg, [facility] 2-16 Route: PO, l 22:00: Drug form: [place] 00 TAB, Q8H, Start date: 09/21/19 16:00:00 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, Duration: 30 day, Stop date: 10/21/19 8:00:00 CDT, 0 Cardizem 2020-0 No 60 mg, [facility] 2-16 Route: PO, l 22:00: Drug form: [place] 00 TAB, Q8H, Start date: 09/21/19 16:00:00 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, Duration: 30 day, Stop date: 10/21/19 8:00:00 CDT, 0 Cardizem 2020-0 No 60 mg, [facility] 2-16 Route: PO, l 22:00: Drug form: [place] 00 TAB, Q8H, Start date: 09/21/19 16:00:00 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, Duration: 30 day, Stop date: 10/21/19 8:00:00 CDT, 0 Cardizem 2020-0 No 60 mg, [facility] 2-16 Route: PO, l 22:00: Drug form: [place] 00 TAB, Q8H, Start date: 09/21/19 16:00:00 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, Duration: 30 day, Stop date: 10/21/19 8:00:00 CDT, 0 Coreg 2020-0 No 25 mg, 1 [facility] 2-16 tab, l 20:00: Route: PO, [place] 00 Drug form: TAB, Q12H, Dosing Weight 68.182, kg, Start date: 09/21/19 14:00:00 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, Duration: 30 day, Stop date: 10/21/19 9:00:00 CDT, 0 Coreg 2020-0 No 25 mg, 1 [facility] 2-16 tab, l 20:00: Route: PO, [place] 00 Drug form: TAB, Q12H, Dosing Weight 68.182, kg, Start date: 09/21/19 14:00:00 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, Duration: 30 day, Stop date: 10/21/19 9:00:00 CDT, 0 Coreg 2020-0 No 25 mg, 1 [facility] 2-16 tab, l 20:00: Route: PO, [place] 00 Drug form: TAB, Q12H, Dosing Weight 68.182, kg, Start date: 09/21/19 14:00:00 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, Duration: 30 day, Stop date: 10/21/19 9:00:00 CDT, 0 Coreg 2020-0 No 25 mg, 1 [facility] 2-16 tab, l 20:00: Route: PO, [facility]iel 00 Drug form: TAB, Q12H, Dosing Weight 68.182, kg, Start date: 09/21/19 14:00:00 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, Duration: 30 day, Stop date: 10/21/19 9:00:00 CDT, 0 Coreg 2020-0 No 25 mg, 1 [facility] 2-16 tab, l 20:00: Route: PO, [place] 00 Drug form: TAB, Q12H, Dosing Weight 68.182, kg, Start date: 09/21/19 14:00:00 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, Duration: 30 day, Stop date: 10/21/19 9:00:00 CDT, 0 Coreg 2020-0 No 25 mg, 1 [facility] 2-16 tab, l 20:00: Route: PO, [place] 00 Drug form: TAB, Q12H, Dosing Weight 68.182, kg, Start date: 09/21/19 14:00:00 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, Duration: 30 day, Stop date: 10/21/19 9:00:00 CDT, 0 Coreg 2020-0 No 25 mg, 1 [facility] 2-16 tab, l 20:00: Route: PO, [facility] 00 Drug form: TAB, Q12H, Dosing Weight 68.182, kg, Start date: 09/21/19 14:00:00 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, Duration: 30 day, Stop date: 10/21/19 9:00:00 CDT, 0 Coreg 2020-0 No 25 mg, 1 [facility] 2-16 tab, l 20:00: Route: PO, [place] 00 Drug form: TAB, Q12H, Dosing Weight 68.182, kg, Start date: 09/21/19 14:00:00 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, Duration: 30 day, Stop date: 10/21/19 9:00:00 CDT, 0 Labetalol 2020-0 No 20 mg, 4 [facility] imtiaz 2-16 mL, Route: l 18:10: IV, Drug form: INJ, Q6H, Dosing Weight 68.182, kg, PRN Hypertensi on, Start date: 09/21/19 12:10:00 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, Duration: 30 day, Stop date: 10/21/19 12:09:00 CDT, 0 Hydralazine 2020-0 No Notes: [facility] imtiaz 2-16 (Same as: l 18:10: Apresoline ) Push over 5 minutes Labetalol 2020-0 No 20 mg, 4 [place] imtiaz 2-16 mL, Route: l 18:10: IV, Drug form: INJ, Q6H, Dosing Weight 68.182, kg, PRN Hypertensi on, Start date: 09/21/19 12:10:00 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, Duration: 30 day, Stop date: 10/21/19 12:09:00 CDT, 0 Hydralazine 2020-0 No Notes: [facility] imtiaz 2-16 (Same as: l 18:10: Apresoline ) Push over 5 minutes Labetalol 2020-0 No 20 mg, 4 [place] imtiaz 2-16 mL, Route: l 18:10: IV, Drug form: INJ, Q6H, Dosing Weight 68.182, kg, PRN Hypertensi on, Start date: 09/21/19 12:10:00 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, Duration: 30 day, Stop date: 10/21/19 12:09:00 CDT, 0 Hydralazine 2020-0 No Notes: [facility] imtiaz 2-16 (Same as: l 18:10: Apresoline ) Push over 5 minutes Labetalol 2020-0 No 20 mg, 4 [place] imtiaz 2-16 mL, Route: l 18:10: IV, Drug form: INJ, Q6H, Dosing Weight 68.182, kg, PRN Hypertensi on, Start date: 09/21/19 12:10:00 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, Duration: 30 day, Stop date: 10/21/19 12:09:00 CDT, 0 Hydralazine 2020-0 No Notes: [facility] imtiaz 2-16 (Same as: l 18:10: Apresoline [place] ) Push over 5 minutes Labetalol 2020-0 No 20 mg, 4 [place] imtiaz 2-16 mL, Route: l 18:10: IV, Drug [place] 00 form: INJ, Q6H, Dosing Weight 68.182, kg, PRN Hypertensi on, Start date: 09/21/19 12:10:00 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, Duration: 30 day, Stop date: 10/21/19 12:09:00 CDT, 0 Hydralazine 2020-0 No Notes: [facility] imtiaz 2-16 (Same as: l 18:10: Apresoline [place]iel ) Push over 5 minutes Labetalol 2020-0 No 20 mg, 4 [place] imtiaz 2-16 mL, Route: l 18:10: IV, Drug [place] 00 form: INJ, Q6H, Dosing Weight 68.182, kg, PRN Hypertensi on, Start date: 09/21/19 12:10:00 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, Duration: 30 day, Stop date: 10/21/19 12:09:00 CDT, 0 Hydralazine 2020-0 No Notes: [facility]ector imtiaz 2-16 (Same as: l 18:10: Apresoline [place] ) Push over 5 minutes Labetalol 2020-0 No 20 mg, 4 [place] imtiaz 2-16 mL, Route: l 18:10: IV, Drug [place] 00 form: INJ, Q6H, Dosing Weight 68.182, kg, PRN Hypertensi on, Start date: 09/21/19 12:10:00 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, Duration: 30 day, Stop date: 10/21/19 12:09:00 CDT, 0 Hydralazine 2020-0 No Notes: [facility] imtiaz 2-16 (Same as: l 18:10: Apresoline Ottoniel ) Push over 5 minutes Labetalol 2020-0 No 20 mg, 4 [facility] imtiaz 2-16 mL, Route: l 18:10: IV, Drug [place] 00 form: INJ, Q6H, Dosing Weight 68.182, kg, PRN Hypertensi on, Start date: 09/21/19 12:10:00 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, Duration: 30 day, Stop date: 10/21/19 12:09:00 CDT, 0 Hydralazine 2020-0 No Notes: [facility] imtiaz 2-16 (Same as: l 18:10: Apresoline Ottoniel ) Push over 5 minutes Labetalol 2020-0 No 10 mg, 2 [place] imtiaz 2-16 mL, Route: l 18:07: IV, Drug [place] 00 form: INJ, ONCE, Dosing Weight 68.182, kg, Start date: 09/21/19 12:07:00 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, Stop date: 09/21/19 12:07:00 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, 0 Labetalol 2020-0 No 10 mg, 2 [place] imtiaz 2-16 mL, Route: l 18:07: IV, Drug [place] 00 form: INJ, ONCE, Dosing Weight 68.182, kg, Start date: 09/21/19 12:07:00 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, Stop date: 09/21/19 12:07:00 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, 0 Labetalol 2020-0 No 10 mg, 2 [facility] imtiaz 2-16 mL, Route: l 18:07: IV, Drug [place] 00 form: INJ, ONCE, Dosing Weight 68.182, kg, Start date: 09/21/19 12:07:00 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, Stop date: 09/21/19 12:07:00 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, 0 Labetalol 2020-0 No 10 mg, 2 [facility] imtiaz 2-16 mL, Route: l 18:07: IV, Drug [place] 00 form: INJ, ONCE, Dosing Weight 68.182, kg, Start date: 09/21/19 12:07:00 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, Stop date: 09/21/19 12:07:00 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, 0 Labetalol 2020-0 No 10 mg, 2 [place] imtiaz 2-16 mL, Route: l 18:07: IV, Drug [place] 00 form: INJ, ONCE, Dosing Weight 68.182, kg, Start date: 09/21/19 12:07:00 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, Stop date: 09/21/19 12:07:00 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, 0 Labetalol 2020-0 No 10 mg, 2 [place] imtiaz 2-16 mL, Route: l 18:07: IV, Drug [place] 00 form: INJ, ONCE, Dosing Weight 68.182, kg, Start date: 09/21/19 12:07:00 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, Stop date: 09/21/19 12:07:00 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, 0 Labetalol 2020-0 No 10 mg, 2 [place] imtiaz 2-16 mL, Route: l 18:07: IV, Drug [place] 00 form: INJ, ONCE, Dosing Weight 68.182, kg, Start date: 09/21/19 12:07:00 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, Stop date: 09/21/19 12:07:00 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, 0 Labetalol 2020-0 No 10 mg, 2 [place] imtiaz 2-16 mL, Route: l 18:07: IV, Drug [place] 00 form: INJ, ONCE, Dosing Weight 68.182, kg, Start date: 09/21/19 12:07:00 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, Stop date: 09/21/19 12:07:00 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, 0 Diltiazem 2020-0 No 120 mg, Mem[facility] ia 2-16 Route: PO, l 15:00: Drug form: [place] 00 ERCAP, Daily, Dosing Weight 68.182, kg, Start date: 09/21/19 9:00:00 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, Duration: 30 day, Stop date: 10/20/19 9:00:00 CDT Diltiazem 2020-0 No 120 mg, Mem[facility] 2-16 Route: PO, l 15:00: Drug form: [place] 00 ERCAP, Daily, Dosing Weight 68.182, kg, Start date: 09/21/19 9:00:00 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, Duration: 30 day, Stop date: 10/20/19 9:00:00 CDT Diltiazem 2020-0 No 120 mg, [facility] 2-16 Route: PO, l 15:00: Drug form: [place] 00 ERCAP, Daily, Dosing Weight 68.182, kg, Start date: 09/21/19 9:00:00 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, Duration: 30 day, Stop date: 10/20/19 9:00:00 CDT Diltiazem 2020-0 No 120 mg, [facility] 2-16 Route: PO, l 15:00: Drug form: [place] 00 ERCAP, Daily, Dosing Weight 68.182, kg, Start date: 09/21/19 9:00:00 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, Duration: 30 day, Stop date: 10/20/19 9:00:00 CDT Diltiazem 2020-0 No 120 mg, [facility] 2-16 Route: PO, l 15:00: Drug form: [place] 00 ERCAP, Daily, Dosing Weight 68.182, kg, Start date: 09/21/19 9:00:00 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, Duration: 30 day, Stop date: 10/20/19 9:00:00 CDT Diltiazem 2020-0 No 120 mg, [facility] 2-16 Route: PO, l 15:00: Drug form: [place] 00 ERCAP, Daily, Dosing Weight 68.182, kg, Start date: 09/21/19 9:00:00 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, Duration: 30 day, Stop date: 10/20/19 9:00:00 CDT Diltiazem 2020-0 No 120 mg, [facility] 2-16 Route: PO, l 15:00: Drug form: [place] 00 ERCAP, Daily, Dosing Weight 68.182, kg, Start date: 09/21/19 9:00:00 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, Duration: 30 day, Stop date: 10/20/19 9:00:00 CDT Diltiazem 2020-0 No 120 mg, [facility] 2-16 Route: PO, l 15:00: Drug form: [place] 00 ERCAP, Daily, Dosing Weight 68.182, kg, Start date: 09/21/19 9:00:00 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, Duration: 30 day, Stop date: 10/20/19 9:00:00 CDT Cardizem 2020-0 No Notes: [facility] 2-16 (Same as: l 14:20: Cardizem) [place] 00 Before meals Cardizem 2020-0 No Notes: [facility] 2-16 (Same as: l 14:20: Cardizem) [place] 00 Before meals Cardizem 2020-0 No Notes: [facility] 2-16 (Same as: l 14:20: Cardizem) [place] 00 Before meals Cardizem 2020-0 No Notes: [facility] 2-16 (Same as: l 14:20: Cardizem) [place] 00 Before meals Cardizem 2020-0 No Notes: [facility] 2-16 (Same as: l 14:20: Cardizem) [place] 00 Before meals Cardizem 0 No Notes: [facility] 2-16 (Same as: l 14:20: Cardizem) [place] 00 Before meals Cardizem 0 No Notes: [facility] 2-16 (Same as: l 14:20: Cardizem) [place] 00 Before meals Cardizem 0 No Notes: [facility] 2-16 (Same as: l 14:20: Cardizem) [place] 00 Before meals Potassium 2019-0 No Notes: [facility] a Chloride 2-15 (Same as: l 14:02: K-Dur ) [place] 00 "Do Not Crush" Give with food and full glass of water For patients unable to swallow tablet, dissolve in one half glass of water. Allow about 2 minutes for the tablets to disintegra te. Stir before giving to prepare slurry and administer . Please exclude Patient s with feeding tube less than 14 [place] (Dobhoff, J-tube etc) and pediatric and patients. Potassium 0 No Notes: [facility] a Chloride 2-15 (Same as: l 14:: K-Dur ) [place] 00 "Do Not Crush" Give with food and full glass of water For patients unable to swallow tablet, dissolve in one half glass of water. Allow about 2 minutes for the tablets to disintegra te. Stir before giving to prepare slurry and administer . Please exclude Patient s with feeding tube less than 14 [place] (Dobhoff, J-tube etc) and pediatric and patients. Potassium 2019-0 No Notes: [facility] a Chloride [...] s with feeding tube less than 14 [place] (Dobhoff, J-tube etc) and pediatric and patients. Potassium 2019-0 No Notes: [facility] a Chloride 2-15 (Same as: l 14:02: K-Dur ) [place] 00 "Do Not Crush" Give with food and full glass of water For patients unable to swallow tablet, dissolve in one half glass of water. Allow about 2 minutes for the tablets to disintegra te. Stir before giving to prepare slurry and administer . Please exclude Patient s with feeding tube less than 14 [place] (Dobhoff, J-tube etc) and pediatric and patients. [...] s with feeding tube less than 14 [place] (Dobhoff, J-tube etc) and pediatric and patients. Potassium 2020-0 No Notes: [facility] a Chloride 2-15 (Same as: l 14:02: K-Dur 20) [place] 00 "Do Not Crush" Give with food and full glass of water For patients unable to swallow tablet, dissolve in one half glass of water. Allow about 2 minutes for the tablets to disintegra te. Stir before giving to prepare slurry and administer . Please exclude Patient s with feeding tube less than 14 [place] (Dobhoff, J-tube etc) and pediatric and patients. [...] s with feeding tube less than 14 [place] (Dobhoff, J-tube etc) and pediatric and patients. Potassium 2020-0 No Notes: [facility] Chloride 2-15 (Same as: l 14:02: K-Dur 20) [place] 00 "Do Not Crush" Give with food and full glass of water For patients unable to swallow tablet, dissolve in one half glass of water. Allow about 2 minutes for the tablets to disintegra te. Stir before giving to prepare slurry and administer . Please exclude Patient s with feeding tube less than 14 [place] (Dobhoff, J-tube etc) and pediatric and patients. Potassium 2020-0 No 40 mEq, 2 [facility] Chloride 2-14 tab, l 1.33 MEQ/ML 20:00: Route: PO, [place] Oral 00 Drug form: Solution ERTAB, ONCE, Dosing Weight 68.182, kg, Start date: 09/19/19 14:00:00 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, Stop date: 09/19/19 14:00:00 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, 0 Potassium 2020-0 No 40 mEq, 2 Mem [facility] Chloride 2-14 tab, l 1.33 MEQ/ML 20:00: Route: PO, [place] Oral 00 Drug form: Solution ERTAB, ONCE, Dosing Weight 68.182, kg, Start date: 09/19/19 14:00:00 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, Stop date: 09/19/19 14:00:00 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, 0 Potassium 2020-0 No 40 mEq, 2 Mem [facility] Chloride 2-14 tab, l 1.33 MEQ/ML 20:00: Route: PO, [place] Oral 00 Drug form: Solution ERTAB, ONCE, Dosing Weight 68.182, kg, Start date: 09/19/19 14:00:00 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, Stop date: 09/19/19 14:00:00 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, 0 Potassium 2020-0 No 40 mEq, 2 Mem [facility] Chloride 2-14 tab, l 1.33 MEQ/ML 20:00: Route: PO, [place] Oral 00 Drug form: Solution ERTAB, ONCE, Dosing Weight 68.182, kg, Start date: 09/19/19 14:00:00 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, Stop date: 09/19/19 14:00:00 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, 0 Potassium 2020-0 No 40 mEq, 2 [facility] Chloride 2-14 tab, l 1.33 MEQ/ML 20:00: Route: PO, [place] Oral 00 Drug form: Solution ERTAB, ONCE, Dosing Weight 68.182, kg, Start date: 09/19/19 14:00:00 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, Stop date: 09/19/19 14:00:00 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, 0 Potassium 2020-0 No 40 mEq, 2 [facility] Chloride 2-14 tab, l 1.33 MEQ/ML 20:00: Route: PO, [place] Oral 00 Drug form: Solution ERTAB, ONCE, Dosing Weight 68.182, kg, Start date: 09/19/19 14:00:00 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, Stop date: 09/19/19 14:00:00 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, 0 Potassium 2020-0 No 40 mEq, 2 [facility] Chloride 2-14 tab, l 1.33 MEQ/ML 20:00: Route: PO, [place] Oral 00 Drug form: Solution ERTAB, ONCE, Dosing Weight 68.182, kg, Start date: 09/19/19 14:00:00 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, Stop date: 09/19/19 14:00:00 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, 0 Potassium 2020-0 No 40 mEq, 2 [facility] Chloride 2-14 tab, l 1.33 MEQ/ML 20:00: Route: PO, [place] Oral 00 Drug form: Solution ERTAB, ONCE, Dosing Weight 68.182, kg, Start date: 09/19/19 14:00:00 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, Stop date: 09/19/19 14:00:00 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, 0 valsartan 2020-0 No Notes: [facility] a 2-14 Same as l 15:00: Diovan [place] 00 valsartan 2020-0 No Notes: [facility] a 2-14 Same as l 15:00: Diovan [place] 00 valsartan 2020-0 No Notes: [facility] a 2-14 Same as l 15:00: Diovan [place] 00 valsartan 2020-0 No Notes: [facility] a 2-14 Same as l 15:00: Diovan [place] 00 valsartan 2020-0 No Notes: [facility] a 2-14 Same as l 15:00: Diovan [place] 00 valsartan 2020-0 No Notes: [facility] a 2-14 Same as l 15:00: Diovan [place] 00 valsartan 2020-0 No Notes: [facility] a 2-14 Same as l 15:00: Diovan [place] 00 valsartan 2020-0 No Notes: [facility] a 2-14 Same as l 15:00: Diovan [place] 00 Potassium 2020-0 Yes 40 mEq, 2 [facility] Chloride 2-14 tab, l 1.33 MEQ/ML 12:42: Route: PO, [place] Oral 00 Drug form: Solution ERTAB, ONCE, Dosing Weight 68.182, kg, Start date: 09/19/19 6:42:00 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, Stop date: 09/19/19 6:42:00 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, 0 Potassium 2020-0 Yes 40 mEq, 2 [facility] Chloride 2-14 tab, l 1.33 MEQ/ML 12:42: Route: PO, [place] Oral 00 Drug form: Solution ERTAB, ONCE, Dosing Weight 68.182, kg, Start date: 09/19/19 6:42:00 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, Stop date: 09/19/19 6:42:00 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, 0 Potassium 2020-0 Yes 40 mEq, 2 [facility] Chloride 2-14 tab, l 1.33 MEQ/ML 12:42: Route: PO, [place] Oral 00 Drug form: Solution ERTAB, ONCE, Dosing Weight 68.182, kg, Start date: 09/19/19 6:42:00 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, Stop date: 09/19/19 6:42:00 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, 0 Potassium 2020-0 Yes 40 mEq, 2 [facility] Chloride 2-14 tab, l 1.33 MEQ/ML 12:42: Route: PO, [place] Oral 00 Drug form: Solution ERTAB, ONCE, Dosing Weight 68.182, kg, Start date: 09/19/19 6:42:00 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, Stop date: 09/19/19 6:42:00 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, 0 Potassium 2020-0 Yes 40 mEq, 2 [facility] Chloride 2-14 tab, l 1.33 MEQ/ML 12:42: Route: PO, [place] Oral 00 Drug form: Solution ERTAB, ONCE, Dosing Weight 68.182, kg, Start date: 09/19/19 6:42:00 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, Stop date: 09/19/19 6:42:00 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, 0 Potassium 2020-0 Yes 40 mEq, 2 [facility] Chloride 2-14 tab, l 1.33 MEQ/ML 12:42: Route: PO, [place] Oral 00 Drug form: Solution ERTAB, ONCE, Dosing Weight 68.182, kg, Start date: 09/19/19 6:42:00 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, Stop date: 09/19/19 6:42:00 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, 0 Potassium 2020-0 Yes 40 mEq, 2 [facility] Chloride 2-14 tab, l 1.33 MEQ/ML 12:42: Route: PO, [place] Oral 00 Drug form: Solution ERTAB, ONCE, Dosing Weight 68.182, kg, Start date: 09/19/19 6:42:00 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, Stop date: 09/19/19 6:42:00 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, 0 Potassium 2020-0 Yes 40 mEq, 2 [facility] Chloride 2-14 tab, l 1.33 MEQ/ML 12:42: Route: PO, [place] Oral 00 Drug form: Solution ERTAB, ONCE, Dosing Weight 68.182, kg, Start date: 09/19/19 6:42:00 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, Stop date: 09/19/19 6:42:00 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, 0 valsartan 2020-0 No Notes: [facility] 2-13 Same as l 23:59: Diovan [place] 00 valsartan 2020-0 No Notes: [facility] a 2-13 Same as l 23:59: Diovan [place] 00 valsartan 2020-0 No Notes: [facility] a 2-13 Same as l 23:59: Diovan [place] 00 valsartan 2020-0 No Notes: [facility] a 2-13 Same as l 23:59: Diovan [place] 00 valsartan 2020-0 No Notes: [facility] 2-13 Same as l 23:59: Diovan [place] 00 valsartan 2020-0 No Notes: [facility] a 2-13 Same as l 23:59: Diovan [place] 00 valsartan 2020-0 No Notes: [facility] a 2-13 Same as l 23:59: Diovan [place] 00 valsartan 2020-0 No Notes: [facility] 2-13 Same as l 23:59: Diovan [place] 00 Flomax 2020-0 No Notes: [facility] 2-13 (Same As: l 23:00: Flomax) [place] 00 "Do Not Crush" Flomax 2020-0 No Notes: [facility] 2-13 (Same As: l 23:00: Flomax) [place] 00 "Do Not Crush" Flomax 2020-0 No Notes: [facility] 2-13 (Same As: l 23:00: Flomax) [place] 00 "Do Not Crush" Flomax 2020-0 No Notes: [facility] 2-13 (Same As: l 23:00: Flomax) [place] 00 "Do Not Crush" Flomax 2020-0 No Notes: [facility] 2-13 (Same As: l 23:00: Flomax) [place] 00 "Do Not Crush" Flomax 2020-0 No Notes: [facility] 2-13 (Same As: l 23:00: Flomax) [place] 00 "Do Not Crush" Flomax 2020-0 No Notes: [facility] 2-13 (Same As: l 23:00: Flomax) [place] 00 "Do Not Crush" Flomax 2020-0 No Notes: [facility] 2-13 (Same As: l 23:00: Flomax) [place] 00 "Do Not Crush" Sodium 2020-0 No 1,000 mL, [facility] Chloride 2-13 Rate: 50 l 0.9% IV 21:51: ml/hr, [place] 1,000 mL 00 Infuse over: 20 hr, Route: IV, Dosing Weight 68.182 kg, Total Volume: 1,000, Start date: 09/18/19 15:51:00 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, Duration: 30 day, Stop date: 10/18/19 15:50:00 CDT, 1.68, m2, 0 Sodium 2020-0 No 1,000 mL, [facility] Chloride 2-13 Rate: 50 l 0.9% IV 21:51: ml/hr, [place] 1,000 mL 00 Infuse over: 20 hr, Route: IV, Dosing Weight 68.182 kg, Total Volume: 1,000, Start date: 09/18/19 15:51:00 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, Duration: 30 day, Stop date: 10/18/19 15:50:00 CDT, 1.68, m2, 0 Sodium 2020-0 No 1,000 mL, [facility] a Chloride 2-13 Rate: 50 l 0.9% IV 21:51: ml/hr, [place] 1,000 mL 00 Infuse over: 20 hr, Route: IV, Dosing Weight 68.182 kg, Total Volume: 1,000, Start date: 09/18/19 15:51:00 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, Duration: 30 day, Stop date: 10/18/19 15:50:00 CDT, 1.68, m2, 0 Sodium 2020-0 No 1,000 mL, [facility] a Chloride 2-13 Rate: 50 l 0.9% IV 21:51: ml/hr, [place] 1,000 mL 00 Infuse over: 20 hr, Route: IV, Dosing Weight 68.182 kg, Total Volume: 1,000, Start date: 09/18/19 15:51:00 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, Duration: 30 day, Stop date: 10/18/19 15:50:00 CDT, 1.68, m2, 0 Sodium 2020-0 No 1,000 mL, [facility] a Chloride 2-13 Rate: 50 l 0.9% IV 21:51: ml/hr, [place] 1,000 mL 00 Infuse over: 20 hr, Route: IV, Dosing Weight 68.182 kg, Total Volume: 1,000, Start date: 09/18/19 15:51:00 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, Duration: 30 day, Stop date: 10/18/19 15:50:00 CDT, 1.68, m2, 0 Sodium 2020-0 No 1,000 mL, [facility] Chloride 2-13 Rate: 50 l 0.9% IV 21:51: ml/hr, [place] 1,000 mL 00 Infuse over: 20 hr, Route: IV, Dosing Weight 68.182 kg, Total Volume: 1,000, Start date: 09/18/19 15:51:00 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, Duration: 30 day, Stop date: 10/18/19 15:50:00 CDT, 1.68, m2, 0 Sodium 2020-0 No 1,000 mL, [facility] a Chloride 2-13 Rate: 50 l 0.9% IV 21:51: ml/hr, [place] 1,000 mL 00 Infuse over: 20 hr, Route: IV, Dosing Weight 68.182 kg, Total Volume: 1,000, Start date: 09/18/19 15:51:00 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, Duration: 30 day, Stop date: 10/18/19 15:50:00 CDT, 1.68, m2, 0 Sodium 2020-0 No 1,000 mL, [facility] a Chloride 2-13 Rate: 50 l 0.9% IV 21:51: ml/hr, [place] 1,000 mL 00 Infuse over: 20 hr, Route: IV, Dosing Weight 68.182 kg, Total Volume: 1,000, Start date: 09/18/19 15:51:00 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, Duration: 30 day, Stop date: 10/18/19 15:50:00 [...] H ermann Oral 00 Chloride) Solution valsartan 0 No Notes: [facility] 2-13 Same as l 15:00: Diovan [place] 00 Potassium 2019-0 No Notes: [facility] Chloride 2-13 (Same as: l 1.33 MEQ/ML 15:00: Potassium H ermann Oral 00 Chloride) Solution valsartan 0 No Notes: [facility] 2-13 Same as l 15:00: Diovan [place] 00 Potassium 2019-0 No Notes: [facility] Chloride 2-13 (Same as: l 1.33 MEQ/ML 15:00: Potassium H ermann Oral 00 Chloride) Solution valsartan No Notes: [facility] 2-13 Same as l 15:00: Diovan [place] 00 valsartan 0 No Notes: [facility] 2-13 Same as l 15:00: Diovan [place] Potassium 2019-0 No Notes: [facility] Chloride 2-13 (Same as: l 1.33 MEQ/ML 15:00: Potassium H ermann Oral 00 Chloride) Solution Potassium 2019-0 No Notes: [facility] Chloride 2-13 (Same as: l 1.33 MEQ/ML 15:00: Potassium H ermann Oral 00 Chloride) Solution valsartan No Notes: [facility] 2-13 Same as l 15:00: Diovan [place] 00 Potassium 2019-0 No Notes: [facility] Chloride 2-13 (Same as: l 1.33 MEQ/ML 15:00: Potassium H [place] Oral 00 Chloride) Solution valsartan 0 No Notes: [facility] 2-13 Same as [...] s with feeding tube less than 14 [place] (Dobhoff, J-tube etc) and pediatric and patients. [...] s with feeding tube less than 14 [place] (Dobhoff, J-tube etc) and pediatric and patients. [...] s with feeding tube less than 14 [place] (Dobhoff, J-tube etc) and pediatric and patients. [...] s with feeding tube less than 14 [place] (Dobhoff, J-tube etc) and pediatric and patients. Potassium 2020-0 No Notes: [facility] Chloride 2-13 (Same as: l 12:02: K-Dur 20) [place] 00 "Do Not Crush" Give with food and full glass of water For patients unable to swallow tablet, dissolve in one half glass of water. Allow about 2 minutes for the tablets to disintegra te. Stir before giving to prepare slurry and administer . Please exclude Patient s with feeding tube less than 14 [place] (Dobhoff, J-tube etc) and pediatric and patients. Potassium 2020-0 No Notes: [facility] Chloride 2-13 (Same as: l 12:02: K-Dur 20) [place] 00 "Do Not Crush" Give with food and full glass of water For patients unable to swallow tablet, dissolve in one half glass of water. Allow about 2 minutes for the tablets to disintegra te. Stir before giving to prepare slurry and administer . Please exclude Patient s with feeding tube less than 14 [place] (Dobhoff, J-tube etc) and pediatric and patients. [...] s with feeding tube less than 14 [place] (Dobhoff, J-tube etc) and pediatric and patients. [...] s with feeding tube less than 14 [place] (Dobhoff, J-tube etc) and pediatric and patients. [...] Weight 68.182 kg, Start date: 09/17/19 14:42:00 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, Stop date: 09/17/19 14:42:00 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, 0 NS (Bolus) 2020-0 No 1,000 mL, Me moria IV 2-12 1,000 l 20:42: ml/hr, [place] 00 Infuse Over: 1 hr, Route: IV, 1,000, Drug form: INJ, ONCE, Priority: STAT, Dosing Weight 68.182 kg, Start date: 09/17/19 14:42:00 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, Stop date: 09/17/19 14:42:00 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, 0 NS (Bolus) 2020-0 No 1,000 mL, Me moria IV 2-12 1,000 l 20:42: ml/hr, [place] 00 Infuse Over: 1 hr, Route: IV, 1,000, Drug form: INJ, ONCE, Priority: STAT, Dosing Weight 68.182 kg, Start date: 09/17/19 14:42:00 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, Stop date: 09/17/19 14:42:00 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, 0 NS (Bolus) 2020-0 No 1,000 mL, Me moria IV 2-12 1,000 l 20:42: ml/hr, [place] 00 Infuse Over: 1 hr, Route: IV, 1,000, Drug form: INJ, ONCE, Priority: STAT, Dosing Weight 68.182 kg, Start date: 09/17/19 14:42:00 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, Stop date: 09/17/19 14:42:00 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, 0 NS (Bolus) 2020-0 No 1,000 mL, Me moria IV 2-12 1,000 l 20:42: ml/hr, [place] 00 Infuse Over: 1 hr, Route: IV, 1,000, Drug form: INJ, ONCE, Priority: STAT, Dosing Weight 68.182 kg, Start date: 09/17/19 14:42:00 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, Stop date: 09/17/19 14:42:00 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, 0 NS (Bolus) 2020-0 No 1,000 mL, Me moria IV 2-12 1,000 l 20:42: ml/hr, [place] 00 Infuse Over: 1 hr, Route: IV, 1,000, Drug form: INJ, ONCE, Priority: STAT, Dosing Weight 68.182 kg, Start date: 09/17/19 14:42:00 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, Stop date: 09/17/19 14:42:00 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, 0 NS (Bolus) 2019-0 No 1,000 mL, Me moria IV 2-12 1,000 l 20:42: ml/hr, [place] 00 Infuse Over: 1 hr, Route: IV, 1,000, Drug form: INJ, ONCE, Priority: STAT, Dosing Weight 68.182 kg, Start date: 09/17/19 14:42:00 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, Stop date: 09/17/19 14:42:00 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, 0 NS (Bolus) 0 No 1,000 mL, Me moria IV 2-12 1,000 l 20:42: ml/hr, Infuse Over: 1 hr, Route: IV, 1,000, Drug form: INJ, ONCE, Priority: STAT, Dosing Weight 68.182 kg, Start date: 09/17/19 14:42:00 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, Stop date: 09/17/19 14:42:00 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, 0 Aspirin 2019-0 No Notes: [facility] 2-12 Take with l 18:45: food. Aspirin 2019-0 No Notes: [facility] 2-12 Take with l 18:45: food. Aspirin 2020-0 No Notes: [facility] 2-12 Take with l 18:45: food. Aspirin 2020-0 No Notes: [facility] 2-12 Take with l 18:45: food. Aspirin 2020-0 No Notes: [facility] 2-12 Take with l 18:45: food. Aspirin 2020-0 No Notes: [facility] 2-12 Take with l 18:45: food. Aspirin 2019-0 No Notes: [facility] 2-12 Take with l 18:45: food. [place] Aspirin 2019-0 No Notes: [facility] 2-12 Take with l 18:45: food. [place] Azithromyci 2019-0 No Notes: Hector imtiaz n 2-12 Take 1 l 16:30: hour [place] 00 before or 2 hours after meals. (Same As: Zithromax) Azithromyci 2019-0 No Notes: Hector imtiaz n 2-12 Take 1 l 16:30: hour [place] 00 before or 2 hours after meals. (Same As: Zithromax) Azithromyci 2019-0 No Notes: Hector imtiaz n 2-12 Take 1 l 16:30: hour [place] 00 before or 2 hours after meals. (Same As: Zithromax) Azithromyci 2019-0 No Notes: Hector imtiaz n 2-12 Take 1 l 16:30: hour [place] 00 before or 2 hours after meals. (Same As: Zithromax) Azithromyci 2019-0 No Notes: Hector imtiaz n 2-12 Take 1 l 16:30: hour [place] 00 before or 2 hours after meals. (Same As: Zithromax) Azithromyci 2019-0 No Notes: Hector imtiaz n 2-12 Take 1 l 16:30: hour [place] 00 before or 2 hours after meals. (Same As: Zithromax) Azithromyci 2019-0 No Notes: Hector imtiaz n 2-12 Take 1 l 16:30: hour [place] 00 before or 2 hours after meals. (Same As: Zithromax) Azithromyci 2019-0 No Notes: Hector imtiaz n 2-12 Take 1 l 16:30: hour [place] 00 before or 2 hours after meals. (Same As: Zithromax) Potassium 2020-0 No Notes: [facility] Chloride [...] H ermann Oral 00 Chloride) Solution Potassium 0 No Notes: [facility] Chloride 2-12 (Same as: l 1.33 MEQ/ML 16:28: Potassium H ermann Oral 00 Chloride) Solution Potassium No Notes: [facility] Chloride 2-12 (Same as: l 1.33 MEQ/ML 16:28: Potassium H ermann Oral 00 Chloride) Solution Potassium 0 No Notes: [facility] Chloride 2-12 (Same as: l 1.33 MEQ/ML 16:28: Potassium H ermann Oral 00 Chloride) Solution Potassium 0 No Notes: [facility] Chloride 2-12 (Same as: l 1.33 MEQ/ML 16:28: Potassium H ermann Oral 00 Chloride) Solution Coreg No Notes: [facility] 2-12 Give with l 15:00: food. [place]iel (Same As: Coreg) Coreg No Notes: [facility] 2-12 Give with l 15:00: food. [place] (Same As: Coreg) Coreg No Notes: [facility] 2-12 Give with l 15:00: food. [place] (Same As: Coreg) Coreg No Notes: [facility] 2-12 Give with l 15:00: food. [place] (Same As: Coreg) Coreg No Notes: [facility] 2-12 Give with l 15:00: food. [place] (Same As: Coreg) Coreg No Notes: [facility] 2-12 Give with l 15:00: food. [place] (Same As: Coreg) Coreg No Notes: [facility] 2-12 Give with l 15:00: food. [place] (Same As: Coreg) Coreg No Notes: [facility] 2-12 Give with l 15:00: food. [place] (Same As: Coreg) Potassium 0 No Notes: [facility] a Chloride 2-12 (Same as: l 12:00: KCL) [place] 00 Infuse over 2 hours. Potassium No Notes: [facility] Chloride 2-12 (Same as: l 12:00: KCL) [place] 00 Infuse over 2 hours. Potassium 2020-0 No Notes: [facility] a Chloride 2-12 (Same as: l 12:00: KCL) [place] 00 Infuse over 2 hours. Potassium 2020-0 No Notes: [facility] a Chloride 2-12 (Same as: l 12:00: KCL) [place] 00 Infuse over 2 hours. Potassium 2020-0 No Notes: [facility] a Chloride 2-12 (Same as: l 12:00: KCL) [place] 00 Infuse over 2 hours. Potassium 2020-0 No Notes: [facility] a Chloride 2-12 (Same as: l 12:00: KCL) [place] 00 Infuse over 2 hours. Potassium 2020-0 No Notes: [facility] a Chloride 2-12 (Same as: l 12:00: KCL) [place] 00 Infuse over 2 hours. Potassium 2020-0 No Notes: [facility] a Chloride 2-12 (Same as: l 12:00: KCL) [place] 00 Infuse over 2 hours. Potassium 2020-0 [...] 2-11 (Same as: l 20:37: Apresoline [place]iel ) Hydralazine 2020-0 No Notes: Hector imtiaz 2-11 (Same as: l 20:37: Apresoline [place] 00 ) Hydralazine 2020-0 No Notes: Hector imtiaz 2-11 (Same as: l 20:37: Apresoline [place] 00 ) Hydralazine 2020-0 No Notes: Hector imtiaz 2-11 (Same as: l 20:37: Apresoline [place] 00 ) Hydralazine 2020-0 No Notes: Hector imtiaz 2-11 (Same as: l 20:37: Apresoline [place] 00 ) Hydralazine 2019-0 No Notes: Hector imtiaz 2-11 (Same as: l 20:37: Apresoline [place] 00 ) Hydralazine 2020-0 No Notes: Hector imtiaz 2-11 (Same as: l 20:37: Apresoline [place] 00 ) Hydralazine 2019-0 No Notes: Hector imtiaz 2-11 (Same as: l 20:37: Apresoline [place] 00 ) Coreg 2019-0 No Notes: [facility] 2-11 Give with l 20:36: food. [place] 00 (Same As: Coreg) Sodium 2020-0 No 1,000 mL, [facility] a Chloride 2-11 Rate: 100 l 0.9% IV 20:36: ml/hr, [place] 1,000 mL 00 Infuse over: 10 hr, Route: IV, Dosing Weight 68.182 kg, Total Volume: 1,000, Start date: 09/16/19 14:36:00 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, Duration: 30 day, Stop date: 10/16/19 13:36:00 [...] Total Volume: 1,000, Start date: 09/16/19 14:36:00 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, Duration: 30 day, Stop date: 10/16/19 13:36:00 CDT, 1.68, m2, 0 Coreg 2020-0 No Notes: [facility] 2-11 Give with l 20:36: food. [place] 00 (Same As: Coreg) Sodium 2020-0 No 1,000 mL, [facility] a Chloride 2-11 Rate: 100 l 0.9% IV 20:36: ml/hr, [place] 1,000 mL 00 Infuse over: 10 hr, Route: IV, Dosing Weight 68.182 kg, Total Volume: 1,000, Start date: 09/16/19 14:36:00 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, Duration: 30 day, Stop date: 10/16/19 13:36:00 CDT, 1.68, m2, 0 Coreg 2020-0 No Notes: [facility] 2-11 Give with l 20:36: food. [place] 00 (Same As: Coreg) Sodium 2020-0 No 1,000 mL, [facility] a Chloride 2-11 Rate: 100 l 0.9% IV 20:36: ml/hr, [place] 1,000 mL 00 Infuse over: 10 hr, Route: IV, Dosing Weight 68.182 kg, Total Volume: 1,000, Start date: 09/16/19 14:36:00 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, Duration: 30 day, Stop date: 10/16/19 13:36:00 CDT, 1.68, m2, 0 Coreg 2020-0 No Notes: [facility] 2-11 Give with l 20:36: food. [place] 00 (Same As: Coreg) Sodium 2020-0 No 1,000 mL, Mem[facility] a Chloride 2-11 Rate: 100 l 0.9% IV 20:36: ml/hr, [place] 1,000 mL 00 Infuse over: 10 hr, Route: IV, Dosing Weight 68.182 kg, Total Volume: 1,000, Start date: 09/16/19 14:36:00 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, Duration: 30 day, Stop date: 10/16/19 13:36:00 CDT, 1.68, m2, 0 Coreg 2020-0 No Notes: [facility] 2-11 Give with l 20:36: food. [place] 00 (Same As: Coreg) Sodium 2020-0 No 1,000 mL, Mem[facility] a Chloride 2-11 Rate: 100 l 0.9% IV 20:36: ml/hr, [place] 1,000 mL 00 Infuse over: 10 hr, Route: IV, Dosing Weight 68.182 kg, Total Volume: 1,000, Start date: 09/16/19 14:36:00 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, Duration: 30 day, Stop date: 10/16/19 13:36:00 CDT, 1.68, m2, 0 Coreg 2020-0 No Notes: [facility] 2-11 Give with l 20:36: food. (Same As: Coreg) Sodium 2020-0 No 1,000 mL, Mem[facility] a Chloride 2-11 Rate: 100 l 0.9% IV 20:36: ml/hr, [place] 1,000 mL 00 Infuse over: 10 hr, Route: IV, Dosing Weight 68.182 kg, Total Volume: 1,000, Start date: 09/16/19 14:36:00 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, Duration: 30 day, Stop date: 10/16/19 13:36:00 CDT, 1.68, m2, 0 Coreg 2020-0 No Notes: [facility] 2-11 Give with l 20:36: food. (Same As: Coreg) Sodium 2020-0 No 1,000 mL, Mem[facility] a Chloride 2-11 Rate: 100 l 0.9% IV 20:36: ml/hr, [place] 1,000 mL 00 Infuse over: 10 hr, Route: IV, Dosing Weight 68.182 kg, Total Volume: 1,000, Start date: 09/16/19 14:36:00 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, Duration: 30 day, Stop date: 10/16/19 13:36:00 CDT, 1.68, m2, 0 Tylenol 2020-0 No 100.4 F, Memor ia 2-11 Start l 20:33: date: 09/16/19 14:33:00 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, Duration: 30 day, Stop date: 10/16/19 14:32:00 CDT, 0 Motrin 2020-0 No 100.4 F, Memori a 2-11 Start l 20:33: date: 09/16/19 14:33:00 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, Duration: 30 day, Stop date: 10/16/19 14:32:00 CDT, 0 Tylenol 2020-0 No 100.4 F, [facility] 2-11 Start l 20:33: date: 09/16/19 14:33:00 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, Duration: 30 day, Stop date: 10/16/19 14:32:00 CDT, 0 Motrin 2020-0 No 100.4 F, [facility] 2-11 Start l 20:33: date: 09/16/19 14:33:00 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, Duration: 30 day, Stop date: 10/16/19 14:32:00 CDT, 0 Tylenol 2020-0 No 100.4 F, [facility] 2-11 Start l 20:33: date: 09/16/19 14:33:00 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, Duration: 30 day, Stop date: 10/16/19 14:32:00 CDT, 0 Motrin 2020-0 No 100.4 F, [facility]ori a 2-11 Start l 20:33: date: 09/16/19 14:33:00 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, Duration: 30 day, Stop date: 10/16/19 14:32:00 CDT, 0 Tylenol 2020-0 No 100.4 F, [facility] 2-11 Start l 20:33: date: 09/16/19 14:33:00 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, Duration: 30 day, Stop date: 10/16/19 14:32:00 CDT, 0 Motrin 2020-0 No 100.4 F, [facility] 2-11 Start l 20:33: date: 09/16/19 14:33:00 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, Duration: 30 day, Stop date: 10/16/19 14:32:00 CDT, 0 Tylenol 2020-0 No 100.4 F, [facility] 2-11 Start l 20:33: date: 09/16/19 14:33:00 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, Duration: 30 day, Stop date: 10/16/19 14:32:00 CDT, 0 Motrin 2020-0 No 100.4 F, [facility]ori a 2-11 Start l 20:33: date: 09/16/19 14:33:00 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, Duration: 30 day, Stop date: 10/16/19 14:32:00 CDT, 0 Tylenol 2020-0 No 100.4 F, [facility] 2-11 Start l 20:33: date: 09/16/19 14:33:00 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, Duration: 30 day, Stop date: 10/16/19 14:32:00 CDT, 0 Motrin 2020-0 No 100.4 F, [facility]ori a 2-11 Start l 20:33: date: 09/16/19 14:33:00 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, Duration: 30 day, Stop date: 10/16/19 14:32:00 CDT, 0 Tylenol 2020-0 No 100.4 F, Mem[facility] ia 2-11 Start l 20:33: date: 09/16/19 14:33:00 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, Duration: 30 day, Stop date: 10/16/19 14:32:00 CDT, 0 Motrin 2020-0 No 100.4 F, Memori a 2-11 Start l 20:33: date: 09/16/19 14:33:00 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, Duration: 30 day, Stop date: 10/16/19 14:32:00 CDT, 0 Tylenol 2020-0 No 100.4 F, [facility] 2-11 Start l 20:33: date: 09/16/19 14:33:00 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, Duration: 30 day, Stop date: 10/16/19 14:32:00 CDT, 0 Motrin 2020-0 No 100.4 F, [facility] a 2-11 Start l 20:33: date: 09/16/19 14:33:00 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, Duration: 30 day, Stop date: 10/16/19 14:32:00 CDT, 0 heparin 2020-0 No Notes: [facility] 2-11 porcine l 18:45: heparin [place] 00 heparin 2020-0 No Notes: [facility] 2-11 porcine l 18:45: heparin [place] 00 heparin 2020-0 No Notes: [facility] 2-11 porcine l 18:45: heparin [place] 00 heparin 2020-0 No Notes: [facility] 2-11 porcine l 18:45: heparin [place] 00 heparin 2020-0 No Notes: [facility] 2-11 porcine l 18:45: heparin [place] 00 heparin 2020-0 No Notes: [facility] 2-11 porcine l 18:45: heparin [place] 00 heparin 2020-0 No Notes: [facility] 2-11 porcine l 18:45: heparin [place] 00 heparin 2020-0 No Notes: [facility] 2-11 porcine l 18:45: heparin [place] 00 valsartan 2020-0 No Notes: [facility] a 2-11 Same as l 18:05: Diovan [place] 00 valsartan 2020-0 No Notes: [facility] a 2-11 Same as l 18:05: Diovan [place] 00 valsartan 2020-0 No Notes: [facility] a 2-11 Same as l 18:05: Diovan [place] 00 valsartan 2020-0 No Notes: [facility] a 2-11 Same as l 18:05: Diovan [place] 00 valsartan 2020-0 No Notes: [facility] a 2-11 Same as l 18:05: Diovan [place] 00 valsartan 2020-0 No Notes: Memori a [...] Total Volume: 1,000, Start date: 09/16/19 11:42:00 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, Duration: 30 day, Stop date: 10/16/19 11:41:00 CDT, 1.68, m2, 0 Sodium 2020-0 No 1,000 mL, Mem[facility] a Chloride 2-11 Rate: 100 l 0.9% IV 17:42: ml/hr, [place] 1,000 mL 00 Infuse over: 10 hr, Route: IV, Dosing Weight 68.182 kg, Total Volume: 1,000, Start date: 09/16/19 11:42:00 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, Duration: 30 day, Stop date: 10/16/19 11:41:00 CDT, 1.68, m2, 0 Sodium 2020-0 No 1,000 mL, [facility] a Chloride 2-11 Rate: 100 l 0.9% IV 17:42: ml/hr, [place] 1,000 mL 00 Infuse over: 10 hr, Route: IV, Dosing Weight 68.182 kg, Total Volume: 1,000, Start date: 09/16/19 11:42:00 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, Duration: 30 day, Stop date: 10/16/19 11:41:00 CDT, 1.68, m2, 0 Sodium 2020-0 No 1,000 mL, [facility] a Chloride 2-11 Rate: 100 l 0.9% IV 17:42: ml/hr, [place] 1,000 mL 00 Infuse over: 10 hr, Route: IV, Dosing Weight 68.182 kg, Total Volume: 1,000, Start date: 09/16/19 11:42:00 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, Duration: 30 day, Stop date: 10/16/19 11:41:00 CDT, 1.68, m2, 0 Sodium 2020-0 No 1,000 mL, [facility] a Chloride 2-11 Rate: 100 l 0.9% IV 17:42: ml/hr, [place] 1,000 mL 00 Infuse over: 10 hr, Route: IV, Dosing Weight 68.182 kg, Total Volume: 1,000, Start date: 09/16/19 11:42:00 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, Duration: 30 day, Stop date: 10/16/19 11:41:00 CDT, 1.68, m2, 0 Sodium 2020-0 No 1,000 mL, [facility] a Chloride 2-11 Rate: 100 l 0.9% IV 17:42: ml/hr, [place] 1,000 mL 00 Infuse over: 10 hr, Route: IV, Dosing Weight 68.182 kg, Total Volume: 1,000, Start date: 09/16/19 11:42:00 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, Duration: 30 day, Stop date: 10/16/19 11:41:00 CDT, 1.68, m2, 0 Sodium 2020-0 No 1,000 mL, [facility] a Chloride 2-11 Rate: 100 l 0.9% IV 17:42: ml/hr, [place] 1,000 mL 00 Infuse over: 10 hr, Route: IV, Dosing Weight 68.182 kg, Total Volume: 1,000, Start date: 09/16/19 11:42:00 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, Duration: 30 day, Stop date: 10/16/19 11:41:00 CDT, 1.68, m2, 0 Sodium 2020-0 No 1,000 mL, [facility] a Chloride 2-11 Rate: 100 l 0.9% IV 17:42: ml/hr, [place] 1,000 mL 00 Infuse over: 10 hr, Route: IV, Dosing Weight 68.182 kg, Total Volume: 1,000, Start date: 09/16/19 11:42:00 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, Duration: 30 day, Stop date: 10/16/19 11:41:00 CDT, 1.68, m2, 0 pantoprazol 2020-0 No Notes: For Memoria e 2-11 IV push l 15:00: reconstitu [place] 00 te with 10 ml 0.9% sodium chloride and push over 2 minutes. (Same as: Protonix) Zosyn 2020-0 No Notes: [facility] 2-11 (Same as: l 15:00: Zosyn) [place] 00 Dosing based on Piperacill in component MEDICATION WASTE Product Size: 3375 mg Product Wasted: _0__ mg pantoprazol 2020-0 No Notes: For [facility] e 2-11 IV push l 15:00: reconstitu [place] 00 te with 10 ml 0.9% sodium chloride and push over 2 minutes. (Same as: Protonix) Zosyn 2020-0 No Notes: [facility] 2-11 (Same as: l 15:00: Zosyn) [place] 00 Dosing based on Piperacill in component MEDICATION WASTE Product Size: 3375 mg Product Wasted: _0__ mg pantoprazol 2020-0 No Notes: For [facility] e 2-11 IV push l 15:00: reconstitu [place] 00 te with 10 ml 0.9% sodium chloride and push over 2 minutes. (Same as: Protonix) Zosyn 2020-0 No Notes: [facility] 2-11 (Same as: l 15:00: Zosyn) [place] 00 Dosing based on Piperacill in component MEDICATION WASTE Product Size: 3375 mg Product Wasted: _0__ mg pantoprazol 2020-0 No Notes: For [facility] e 2-11 IV push l 15:00: reconstitu [place] 00 te with 10 ml 0.9% sodium chloride and push over 2 minutes. (Same as: Protonix) Zosyn 2020-0 No Notes: [facility] 2-11 (Same as: l 15:00: Zosyn) [place] 00 Dosing based on Piperacill in component MEDICATION WASTE Product Size: 3375 mg Product Wasted: _0__ mg pantoprazol 2020-0 No Notes: For [facility] e 2-11 IV push l 15:00: reconstitu [place] 00 te with 10 ml 0.9% sodium chloride and push over 2 minutes. (Same as: Protonix) Zosyn 2020-0 No Notes: [facility] 2-11 (Same as: l 15:00: Zosyn) [place] Dosing based on Piperacill in component MEDICATION WASTE Product Size: 3375 mg Product Wasted: _0__ mg pantoprazol 2020-0 No Notes: For [facility] e 2-11 IV push l 15:00: reconstitu [place] 00 te with 10 ml 0.9% sodium chloride and push over 2 minutes. (Same as: Protonix) Zosyn 2020-0 No Notes: [facility] 2-11 (Same as: l 15:00: Zosyn) [place] Dosing based on Piperacill in component MEDICATION WASTE Product Size: 3375 mg Product Wasted: _0__ mg pantoprazol 2020-0 No Notes: For [facility] e 2-11 IV push l 15:00: reconstitu [place] 00 te with 10 ml 0.9% sodium chloride and push over 2 minutes. (Same as: Protonix) Zosyn 2020-0 No Notes: [facility] 2-11 (Same as: l 15:00: Zosyn) [place] Dosing based on Piperacill in component MEDICATION WASTE Product Size: 3375 mg Product Wasted: _0__ mg pantoprazol 2020-0 No Notes: For [facility] e 2-11 IV push l 15:00: reconstitu [place] 00 te with 10 ml 0.9% sodium chloride and push over 2 minutes. (Same as: Protonix) Zosyn 2020-0 No Notes: [facility] 2-11 (Same as: l 15:00: Zosyn) [place] 00 Dosing based on Piperacill in component [...] Potassium 2019-0 No Notes: [facility] a Chloride 2-11 (Same [...] 14:00: IVPB, Drug [place] 00 form: INJ, [id number], Dosing Weight 68.182, kg, Start date: 09/16/19 8:00:00 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, Duration: 7 day, Stop date: 09/22/19 20:00:00 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, ABX Indication : Bacteremia Vancomycin 2020-0 No 1,500 mg, Me moria 2-11 Route: l 14:00: IVPB, Drug [place] 00 form: INJ, [id number], Dosing Weight 68.182, kg, Start date: 09/16/19 8:00:00 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, Duration: 7 day, Stop date: 09/22/19 20:00:00 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, ABX Indication : Bacteremia Vancomycin 2020-0 No 1,500 mg, Me moria 2-11 Route: l 14:00: IVPB, Drug [place] 00 form: INJ, [id number], Dosing Weight 68.182, kg, Start date: 09/16/19 8:00:00 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, Duration: 7 day, Stop date: 09/22/19 20:00:00 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, ABX Indication : Bacteremia Vancomycin 2020-0 No 1,500 mg, Me moria 2-11 Route: l 14:00: IVPB, Drug [place] 00 form: INJ, [id number], Dosing Weight 68.182, kg, Start date: 09/16/19 8:00:00 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, Duration: 7 day, Stop date: 09/22/19 20:00:00 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, ABX Indication : Bacteremia Vancomycin 2020-0 No 1,500 mg, Me moria 2-11 Route: l 14:00: IVPB, Drug [place] 00 form: INJ, [id number], Dosing Weight 68.182, kg, Start date: 09/16/19 8:00:00 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, Duration: 7 day, Stop date: 09/22/19 20:00:00 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, ABX Indication : Bacteremia Vancomycin 2020-0 No 1,500 mg, Me moria 2-11 Route: l 14:00: IVPB, Drug [place] 00 form: INJ, [id number], Dosing Weight 68.182, kg, Start date: 09/16/19 8:00:00 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, Duration: 7 day, Stop date: 09/22/19 20:00:00 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, ABX Indication : Bacteremia Vancomycin 2020-0 No 1,500 mg, Me moria 2-11 Route: l 14:00: IVPB, Drug [place] 00 form: INJ, [id number], Dosing Weight 68.182, kg, Start date: 09/16/19 8:00:00 STOCK LETTERER, Duration: 7 day, Stop date: 09/22/19 20:00:00 STOCK LETTERER, ABX Indication : Bacteremia Vancomycin 2020-0 No 1,500 mg, Me moria 2-11 Route: l 14:00: IVPB, Drug [place] 00 form: INJ, [id number], Dosing Weight 68.182, kg, Start date: 09/16/19 8:00:00 STOCK LETTERER, Duration: 7 day, Stop date: 09/22/19 20:00:00 STOCK LETTERER, ABX Indication : Bacteremia Tylenol 2020-0 No Notes: Max Hector imtiaz 2-11 acetaminop l 13:32: hen = 4000 [place] 00 mg/day (4 gm/day). (Same as: Tylenol) [...] 2-11 acetaminop l 13:32: hen = 4000 [place] 00 mg/day (4 gm/day). (Same as: Tylenol) Potassium 2020-0 No 10 mEq, [facility] Chloride 2-11 Route: l 13:00: IVPB, Q1H, [place] 00 Dosing Weight 68.182, kg, Total Dose = 60 meq, Start date: 09/16/19 7:00:00 STOCK LETTERER, Duration: 6 doses or times, Stop date: 09/16/19 12:00:00 STOCK LETTERER, Periphe ral Line Potassium 2020-0 No 10 mEq, [facility] Chloride 2-11 Route: l 13:00: IVPB, Q1H, [place] Dosing Weight 68.182, kg, Total Dose = 60 meq, Start date: 09/16/19 7:00:00 STOCK LETTERER, Duration: 6 doses or times, Stop date: 09/16/19 12:00:00 STOCK LETTERER, Periphe ral Line Potassium 2020-0 No 10 mEq, [facility] Chloride 2-11 Route: l 13:00: IVPB, Q1H, [place] Dosing Weight 68.182, kg, Total Dose = 60 meq, Start date: 09/16/19 7:00:00 STOCK LETTERER, Duration: 6 doses or times, Stop date: 09/16/19 12:00:00 STOCK LETTERER, Periphe ral Line Potassium 2020-0 No 10 mEq, [facility] Chloride 2-11 Route: l 13:00: IVPB, Q1H, [place] 00 Dosing Weight 68.182, kg, Total Dose = 60 meq, Start date: 09/16/19 7:00:00 STOCK LETTERER, Duration: 6 doses or times, Stop date: 09/16/19 12:00:00 STOCK LETTERER, Periphe ral Line Potassium 2020-0 No 10 mEq, [facility] Chloride 2-11 Route: l 13:00: IVPB, Q1H, [place] 00 Dosing Weight 68.182, kg, Total Dose = 60 meq, Start date: 09/16/19 7:00:00 STOCK LETTERER, Duration: 6 doses or times, Stop date: 09/16/19 12:00:00 STOCK LETTERER, Periphe ral Line Potassium 2020-0 No 10 mEq, [facility] Chloride 2-11 Route: l 13:00: IVPB, Q1H, [place] Dosing Weight 68.182, kg, Total Dose = 60 meq, Start date: 09/16/19 7:00:00 STOCK LETTERER, Duration: 6 doses or times, Stop date: 09/16/19 12:00:00 STOCK LETTERER, Periphe ral Line Potassium 2020-0 No 10 mEq, [facility] Chloride 2-11 Route: l 13:00: IVPB, Q1H, [place] Dosing Weight 68.182, kg, Total Dose = 60 meq, Start date: 09/16/19 7:00:00 STOCK LETTERER, Duration: 6 doses or times, Stop date: 09/16/19 12:00:00 STOCK LETTERER, Periphe ral Line Potassium 2020-0 No 10 mEq, [facility] Chloride 2-11 Route: l 13:00: IVPB, Q1H, [place] 00 Dosing Weight 68.182, kg, Total Dose = 60 meq, Start date: 09/16/19 7:00:00 STOCK LETTERER, Duration: 6 doses or times, Stop date: 09/16/19 12:00:00 STOCK LETTERER, Periphe ral Line Ativan 2020-0 No Notes: [facility] 2-11 (Same as: l 10:55: Ativan) [place] Ativan 20200 No Notes: [facility] 2-11 (Same as: l 10:55: Ativan) [place] 00 Ativan 2019-0 No Notes: [facility] 2-11 (Same as: l 10:55: Ativan) [place] 00 Ativan 0 No Notes: [facility] 2-11 (Same as: l 10:55: Ativan) [place] 00 Ativan 0 No Notes: [facility] 2-11 (Same as: l 10:55: Ativan) [place] Ativan 0 No Notes: [facility] 2-11 (Same as: l 10:55: Ativan) [place] 00 Ativan 0 No Notes: [facility] 2-11 (Same as: l 10:55: Ativan) [place] 00 Ativan 0 No Notes: [facility] 2-11 (Same as: l 10:55: Ativan) [place] 00 Benadryl 2019-0 No Notes: [facility] 2-11 (Same as: l 06:04: Benadryl) [place] Benadryl 2020-0 No Notes: [facility] 2-11 (Same as: l 06:04: Benadryl) [place] Benadryl 2020-0 No Notes: [facility] 2-11 (Same as: l 06:04: Benadryl) [place] Benadryl 2020-0 No Notes: [facility] 2-11 (Same as: l 06:04: Benadryl) [place] Benadryl 2020-0 No Notes: [facility] 2-11 (Same as: l 06:04: Benadryl) [place] Benadryl 2020-0 No Notes: [facility] 2-11 (Same as: l 06:04: Benadryl) [place] Benadryl 2020-0 No Notes: [facility] 2-11 (Same as: l 06:04: Benadryl) [place] Benadryl 2020-0 No Notes: [facility] 2-11 (Same as: l 06:04: Benadryl) [place] 00 Compazine 2020-0 No Notes: Memori a 2-11 (Same as: l 06:03: Compazine) [place] 00 Compazine 2020-0 No Notes: [facility] a 2-11 (Same as: l 06:03: Compazine) [place] Compazine 2020-0 No Notes: [facility] a 2-11 (Same as: l 06:03: Compazine) [place] Compazine 2020-0 No Notes: [facility] a 2-11 (Same as: l 06:03: Compazine) [place] Compazine 2019-0 No Notes: [facility] a 2-11 (Same as: l 06:03: Compazine) [place] Compazine 2019-0 No Notes: [facility] a 2-11 (Same as: l 06:03: Compazine) [place] Compazine 2019-0 No Notes: [facility] a 2-11 (Same as: l 06:03: Compazine) [place] Compazine 2019-0 No Notes: [facility] a 2-11 (Same as: l 06:03: Compazine) [place] 00 Tylenol 2020-0 No 67 kg; [facility] 2-11 Pediatric l 04:31: Dosing [place] 00 Tylenol 2020-0 No 67 kg; [facility] 2-11 Pediatric l 04:31: Dosing [place] 00 Tylenol 2020-0 No 67 kg; [facility] 2-11 Pediatric l 04:31: Dosing [place] 00 Tylenol 2020-0 No 67 kg; [facility] 2-11 Pediatric l 04:31: Dosing [place] 00 Tylenol 2020-0 No 67 kg; [facility] 2-11 Pediatric l 04:31: Dosing [place] 00 Tylenol 2020-0 No 67 kg; [facility] 2-11 Pediatric l 04:31: Dosing [place] 00 Tylenol 2020-0 No 67 kg; [facility] 2-11 Pediatric l 04:31: Dosing [place] 00 Tylenol 2020-0 No 67 kg; [facility] 2-11 Pediatric l 04:31: Dosing [place] 00 atorvastati 2020-0 No Notes: Hector imtiaz n 2-11 Same as l 03:00: Lipitor [place] 00 Saline 2019-0 No Notes: [facility] Flush 0.9% 2-11 (Same as: l 03:00: BD [place] 00 Posiflush) atorvastati 2019-0 No Notes: Hector imtiaz n 2-11 Same as l 03:00: Lipitor [place] Saline No Notes: [facility] Flush 0.9% 2-11 (Same as: l 03:00: BD [place] Posiflush) atorvastati No Notes: Hector imtiaz n 2-11 Same as l 03:00: Lipitor [place] Saline No Notes: [facility] Flush 0.9% 2-11 (Same as: l 03:00: BD [place] Posiflush) atorvastati No Notes: Hector imtiaz n 2-11 Same as l 03:00: Lipitor [place] Saline No Notes: [facility] Flush 0.9% 2-11 (Same as: l 03:00: BD [place] Posiflush) atorvastati No Notes: Hector imtiaz n 2-11 Same as l 03:00: Lipitor [place] Saline No Notes: [facility] Flush 0.9% 2-11 (Same as: l 03:00: BD [place] Posiflush) atorvastati No Notes: Hector imtiaz n 2-11 Same as l 03:00: Lipitor [place] Saline No Notes: [facility] Flush 0.9% 2-11 (Same as: l 03:00: BD [place] 00 Posiflush) atorvastati No Notes: Hector imtiaz n 2-11 Same as l 03:00: Lipitor [place] Saline No Notes: [facility] Flush 0.9% 2-11 (Same as: l 03:00: BD [place] 00 Posiflush) atorvastati No Notes: Hector imtiaz n 2-11 Same as l 03:00: Lipitor [place] Saline No Notes: [facility] Flush 0.9% 2-11 (Same as: l 03:00: BD [place] 00 Posiflush) potassium Yes 10 mEq = 1 Me moria chloride 10 2-11 cap, PO, l mEq oral 01:13: BID, 0 [place] capsule, 00 Refill(s) extended release diazepam 5 No 5 mg = 1 Mem oria mg oral 11 tab, PO, l tablet 01:13: TID, 0 [place] 00 Refill(s) valsartan 2020-0 Yes 320 mg = 1 Me moria 320 mg oral 2-11 tab, PO, l tablet 01:13: Daily, 0 [place] 00 Refill(s) Hydrochloro 2020-0 No 25 mg [...] l hours oral 01:13: Daily, 0 Her rotez tablet, 00 Refill(s) extended release potassium 2020-0 Yes 10 mEq = 1 Me moria chloride 10 2-11 cap, PO, l mEq oral 01:13: BID, 0 [place] capsule, 00 Refill(s) extended release diazepam 5 2020-0 No 5 mg = 1 Mem oria mg oral 2-11 tab, PO, l tablet 01:13: TID, 0 [place] 00 Refill(s) valsartan 2020-0 Yes 320 mg [...] tab, PO, l tablet 01:13: TID, 0 [place] 00 Refill(s) valsartan 2020-0 Yes 320 mg = 1 Me moria 320 mg oral 2-11 tab, PO, l tablet 01:13: Daily, 0 [place] 00 Refill(s) Hydrochloro 2020-0 No 25 mg [...] PO, l mEq oral 01:13: BID, 0 [place] capsule, 00 Refill(s) extended release diazepam 5 2020-0 No 5 mg = 1 Mem oria mg oral 2-11 tab, PO, l tablet 01:13: TID, 0 [place] 00 Refill(s) valsartan 2020-0 Yes 320 mg [...] tab, PO, l tablet 01:13: TID, 0 [place] 00 Refill(s) valsartan 2020-0 Yes 320 mg = 1 Me moria 320 mg oral 2-11 tab, PO, l tablet 01:13: Daily, 0 [place] 00 Refill(s) Hydrochloro 2020-0 No 25 mg [...] tab, PO, l tablet 01:13: Daily, 0 [place] 00 Refill(s) Hydrochloro 2020-0 No 25 mg [...] PO, l mEq oral 01:13: BID, 0 [place] capsule, 00 Refill(s) extended release diazepam 5 [...] PO, l mEq oral 01:13: BID, 0 [place] capsule, 00 Refill(s) extended release diazepam 5 [...] s with feeding tube less than 14 [place] (Dobhoff, J-tube etc) and pediatric and patients. Magnesium 2020-0 No Notes: Memori a Sulfate 2-10 WASTE: F/P l 21:55: - Sink; E [place] - [employer] Trash Bin potassium 2020-0 No [...] s with feeding tube less than 14 [place] (Dobhoff, J-tube etc) and pediatric and patients. Magnesium 2020-0 No Notes: [facility] a Sulfate 2-10 WASTE: F/P l 21:55: - Sink; E [place] - [employer] Trash Bin potassium 2020-0 No [...] s with feeding tube less than 14 [place] (Dobhoff, J-tube etc) and pediatric and patients. Magnesium 2020-0 No Notes: [facility] a Sulfate 2-10 WASTE: F/P l 21:55: - Sink; E [place] 00 - [employer] Trash Bin potassium 2020-0 [...] s with feeding tube less than 14 [place] (Dobhoff, J-tube etc) and pediatric and patients. [...] s with feeding tube less than 14 [place] (Dobhoff, J-tube etc) and pediatric and patients. Magnesium 2019-0 No Notes: [facility] a Sulfate 2-10 WASTE: [...] s with feeding tube less than 14 [place] (Dobhoff, J-tube etc) and pediatric and patients. Magnesium 2020-0 No Notes: [facility] a Sulfate 2-10 WASTE: F/P l 21:55: - Sink; E [place] - [employer] Trash Bin potassium 2020-0 No [...] s with feeding tube less than 14 [place] (Dobhoff, J-tube etc) and pediatric and patients. Magnesium 2020-0 No Notes: [facility] a Sulfate 2-10 WASTE: F/P l 21:55: - Sink; E [place] 00 - [employer] Trash Bin potassium 2020-0 [...] s with feeding tube less than 14 [place] (Dobhoff, J-tube etc) and pediatric and patients. Magnesium 2020-0 No Notes: [facility] a Sulfate 2-10 WASTE: F/P l 21:55: - Sink; E [place] 00 - [employer] Trash Bin Ex-Lax Milk 0 No Notes: Hector imtiaz of [place] 2-10 (Same as: l 20:34: Milk of [place] 00 [place], MOM) Ex-Lax Milk 0 No Notes: Hector imtiaz of [place] 2-10 (Same as: l 20:34: Milk of [place] 00 [place], MOM) Ex-Lax Milk 0 No Notes: Hector imtiaz of [place] 2-10 (Same as: l 20:34: Milk of [place] 00 [place], MOM) Ex-Lax Milk 2019-0 No Notes: Hector imtiaz of [place] 2-10 (Same as: l 20:34: Milk of [place] 00 [place], MOM) Ex-Lax Milk 2019-0 No Notes: Hector imtiaz of [place] 2-10 (Same as: l 20:34: Milk of [place] 00 [place], MOM) Ex-Lax Milk 2019-0 No Notes: Hector imtiaz of [place] 2-10 (Same as: l 20:34: Milk of [place] 00 [place], MOM) Ex-Lax Milk 2019-0 No Notes: Hector imtiaz of [place] 2-10 (Same as: l 20:34: Milk of [place] 00 [place], MOM) Ex-Lax Milk 2019-0 No Notes: Hector imtiaz of [place] 2-10 (Same as: l 20:34: Milk of [place] 00 [place], [facility] [facility] [place] Labetalol 2020-0 No 105 mmHg, Me moria 2-10 Start l 19:54: date: 09/15/19 13:54:00 STOCK LETTERER, Duration: 30 day, Stop date: 10/15/19 14:53:00 CDT, 0 Saline 2020-0 No Notes: [facility] Flush 0.9% 2-10 (Same as: l 19:54: BD [place] 00 Posiflush) Labetalol 2020-0 No 105 mmHg, Me moria 2-10 Start l 19:54: date: 09/15/19 13:54:00 STOCK LETTERER, Duration: 30 day, Stop date: 10/15/19 14:53:00 CDT, 0 Saline 2020-0 No Notes: [facility] Flush 0.9% 2-10 (Same as: l 19:54: BD [place] 00 Posiflush) Labetalol 2020-0 No 105 mmHg, Me moria 2-10 Start l 19:54: date: 09/15/19 13:54:00 STOCK LETTERER, Duration: 30 day, Stop date: 10/15/19 14:53:00 CDT, 0 Saline 2020-0 No Notes: [facility] Flush 0.9% 2-10 (Same as: l 19:54: BD [place] 00 Posiflush) Labetalol 2020-0 No 105 mmHg, Me moria 2-10 Start l 19:54: date: 09/15/19 13:54:00 STOCK LETTERER, Duration: 30 day, Stop date: 10/15/19 14:53:00 CDT, 0 Saline 2020-0 No Notes: [facility] Flush 0.9% 2-10 (Same as: l 19:54: BD [place] Posiflush) Labetalol 2020-0 No 105 mmHg, Me moria 2-10 Start l 19:54: date: 09/15/19 13:54:00 STOCK LETTERER, Duration: 30 day, Stop date: 10/15/19 14:53:00 CDT, 0 Saline 2020-0 No Notes: [facility] Flush 0.9% 2-10 (Same as: l 19:54: BD [place] Posiflush) Labetalol 2020-0 No 105 mmHg, Me moria 2-10 Start l 19:54: date: 09/15/19 13:54:00 STOCK LETTERER, Duration: 30 day, Stop date: 10/15/19 14:53:00 CDT, 0 Saline 2020-0 No Notes: [facility] Flush 0.9% 2-10 (Same as: l 19:54: BD [place] Posiflush) Labetalol 2020-0 No 105 mmHg, Me moria 2-10 Start l 19:54: date: 09/15/19 13:54:00 STOCK LETTERER, Duration: 30 day, Stop date: 10/15/19 14:53:00 CDT, 0 Saline 2020-0 No Notes: [facility] Flush 0.9% 2-10 (Same as: l 19:54: BD [place] Posiflush) Labetalol 2020-0 No 105 mmHg, Me moria 2-10 Start l 19:54: date: 09/15/19 13:54:00 STOCK LETTERER, Duration: 30 day, Stop date: 10/15/19 14:53:00 CDT, 0 Saline 2020-0 No Notes: [facility] Flush 0.9% 2-10 (Same as: l 19:54: BD [place] Posiflush) Labetalol 2020-0 No 10 mg, Memori a 2-10 Route: l 18:46: IVP, Drug [place] 00 form: INJ, ONCE, Dosing Weight 68.182, kg, Priority: STAT, Start date: 09/15/19 12:46:00 STOCK LETTERER, Stop date: 09/15/19 12:46:00 STOCK LETTERER Labetalol 2020-0 No 10 mg, Memori a 2-10 Route: l 18:46: IVP, Drug [place] 00 form: INJ, ONCE, Dosing Weight 68.182, kg, Priority: STAT, Start date: 09/15/19 12:46:00 STOCK LETTERER, Stop date: 09/15/19 12:46:00 STOCK LETTERER Labetalol 2020-0 No 10 mg, Memori a 2-10 Route: l 18:46: IVP, Drug [place] 00 form: INJ, ONCE, Dosing Weight 68.182, kg, Priority: STAT, Start date: 09/15/19 12:46:00 STOCK LETTERER, Stop date: 09/15/19 12:46:00 STOCK LETTERER Labetalol 2020-0 No 10 mg, Memori a 2-10 Route: l 18:46: IVP, Drug [place] 00 form: INJ, ONCE, Dosing Weight 68.182, kg, Priority: STAT, Start date: 09/15/19 12:46:00 STOCK LETTERER, Stop date: 09/15/19 12:46:00 STOCK LETTERER Labetalol 2020-0 No 10 mg, Memori a 2-10 Route: l 18:46: IVP, Drug [place] 00 form: INJ, ONCE, Dosing Weight 68.182, kg, Priority: STAT, Start date: 09/15/19 12:46:00 STOCK LETTERER, Stop date: 09/15/19 12:46:00 STOCK LETTERER Labetalol 2020-0 No 10 mg, Memori a 2-10 Route: l 18:46: IVP, Drug [place] 00 form: INJ, ONCE, Dosing Weight 68.182, kg, Priority: STAT, Start date: 09/15/19 12:46:00 STOCK LETTERER, Stop date: 09/15/19 12:46:00 STOCK LETTERER Labetalol 2020-0 No 10 mg, Memori a 2-10 Route: l 18:46: IVP, Drug [place] 00 form: INJ, ONCE, Dosing Weight 68.182, kg, Priority: STAT, Start date: 09/15/19 12:46:00 STOCK LETTERER, Stop date: 09/15/19 12:46:00 STOCK LETTERER Labetalol 2020-0 No 10 mg, Memori a 2-10 Route: l 18:46: IVP, Drug [place] 00 form: INJ, ONCE, Dosing Weight 68.182, kg, Priority: STAT, Start date: 09/15/19 12:46:00 STOCK LETTERER, Stop date: 09/15/19 12:46:00 STOCK LETTERER Sodium 2020-0 No 1,000 mL, Memori a Chloride 2-10 Rate: 50 l 0.9% IV 18:45: ml/hr, [place] 1,000 mL 00 Infuse over: 20 hr, Route: IV, Dosing Weight 68.182 kg, Total Volume: 1,000, Priority: STAT, Start date: 09/15/19 12:45:00 STOCK LETTERER, Duration: 30 day, Stop date: 10/15/19 12:44:00 CDT, 1.68, m2, 0 Sodium 2020-0 No 50 mL, Memoria Chloride 2-10 Rate: 50 l 0.9% IV 50 18:45: ml/hr, Crystal nn mL 00 Infuse over: 1 hr, Route: IV, Dosing Weight 68.182 kg, Total Volume: 50, Use to FLUSH line AFTER tPA infusion., Priority: Routine, Start date: 09/15/19 12:45:00 STOCK LETTERER, Duration: 1 doses or times, Stop date: 09/15/19 13:44:00 STOCK LETTERER,... Alteplase 2020-0 No 6.1364 mg, Me moria 2-10 Route: IV, l 18:45: ONCE, Ottoniel Dosing Weight 68.182, kg, Priority: STAT, Start date: 09/15/19 12:45:00 STOCK LETTERER, Stop date: 09/15/19 12:45:00 STOCK LETTERER Sodium 2020-0 No 1,000 mL, Memori a Chloride 2-10 Rate: 50 l 0.9% IV 18:45: ml/hr, Ottoniel 1,000 mL 00 Infuse over: 20 hr, Route: IV, Dosing Weight 68.182 kg, Total Volume: 1,000, Priority: STAT, Start date: 09/15/19 12:45:00 STOCK LETTERER, Duration: 30 day, Stop date: 10/15/19 12:44:00 CDT, 1.68, m2, 0 Sodium 2020-0 No 50 mL, Memoria Chloride 2-10 Rate: 50 l 0.9% IV 50 18:45: ml/hr, Crystal nn mL 00 Infuse over: 1 hr, Route: IV, Dosing Weight 68.182 kg, Total Volume: 50, Use to FLUSH line AFTER tPA infusion., Priority: Routine, Start date: 09/15/19 12:45:00 STOCK LETTERER, Duration: 1 doses or times, Stop date: 09/15/19 13:44:00 STOCK LETTERER,... Alteplase 2020-0 No 6.1364 mg, Me moria 2-10 Route: IV, l 18:45: ONCE, [place] 00 Dosing Weight 68.182, kg, Priority: STAT, Start date: 09/15/19 12:45:00 STOCK LETTERER, Stop date: 09/15/19 12:45:00 STOCK LETTERER Sodium 2020-0 No 1,000 mL, Memori a Chloride 2-10 Rate: 50 l 0.9% IV 18:45: ml/hr, [place] 1,000 mL 00 Infuse over: 20 hr, Route: IV, Dosing Weight 68.182 kg, Total Volume: 1,000, Priority: STAT, Start date: 09/15/19 12:45:00 STOCK LETTERER, Duration: 30 day, Stop date: 10/15/19 12:44:00 CDT, 1.68, m2, 0 Sodium 2020-0 No 50 mL, Memoria Chloride 2-10 Rate: 50 l 0.9% IV 50 18:45: ml/hr, Crystal nn mL 00 Infuse over: 1 hr, Route: IV, Dosing Weight 68.182 kg, Total Volume: 50, Use to FLUSH line AFTER tPA infusion., Priority: Routine, Start date: 09/15/19 12:45:00 STOCK LETTERER, Duration: 1 doses or times, Stop date: 09/15/19 13:44:00 STOCK LETTERER,... Alteplase 2020-0 No 6.1364 mg, Me moria 2-10 Route: IV, l 18:45: ONCE, [place] 00 Dosing Weight 68.182, kg, Priority: STAT, Start date: 09/15/19 12:45:00 STOCK LETTERER, Stop date: 09/15/19 12:45:00 STOCK LETTERER Sodium 2020-0 No 1,000 mL, Memori a Chloride 2-10 Rate: 50 l 0.9% IV 18:45: ml/hr, [place] 1,000 mL 00 Infuse over: 20 hr, Route: IV, Dosing Weight 68.182 kg, Total Volume: 1,000, Priority: STAT, Start date: 09/15/19 12:45:00 STOCK LETTERER, Duration: 30 day, Stop date: 10/15/19 12:44:00 CDT, 1.68, m2, 0 Sodium 2020-0 No 50 mL, Memoria Chloride 2-10 Rate: 50 l 0.9% IV 50 18:45: ml/hr, Crystal nn mL 00 Infuse over: 1 hr, Route: IV, Dosing Weight 68.182 kg, Total Volume: 50, Use to FLUSH line AFTER tPA infusion., Priority: Routine, Start date: 09/15/19 12:45:00 STOCK LETTERER, Duration: 1 doses or times, Stop date: 09/15/19 13:44:00 STOCK LETTERER,... Alteplase 2020-0 No 6.1364 mg, Me moria 2-10 Route: IV, l 18:45: ONCE, Dosing Weight 68.182, kg, Priority: STAT, Start date: 09/15/19 12:45:00 STOCK LETTERER, Stop date: 09/15/19 12:45:00 STOCK LETTERER Sodium 2020-0 No 1,000 mL, Memori a Chloride 2-10 Rate: 50 l 0.9% IV 18:45: ml/hr, [place] 1,000 mL 00 Infuse over: 20 hr, Route: IV, Dosing Weight 68.182 kg, Total Volume: 1,000, Priority: STAT, Start date: 09/15/19 12:45:00 STOCK LETTERER, Duration: 30 day, Stop date: 10/15/19 12:44:00 CDT, 1.68, m2, 0 Sodium 2020-0 No 50 mL, Memoria Chloride 2-10 Rate: 50 l 0.9% IV 50 18:45: ml/hr, Crystal nn mL 00 Infuse over: 1 hr, Route: IV, Dosing Weight 68.182 kg, Total Volume: 50, Use to FLUSH line AFTER tPA infusion., Priority: Routine, Start date: 09/15/19 12:45:00 STOCK LETTERER, Duration: 1 doses or times, Stop date: 09/15/19 13:44:00 STOCK LETTERER,... Alteplase 2020-0 No 6.1364 mg, Me moria 2-10 Route: IV, l 18:45: ONCE, [place] 00 Dosing Weight 68.182, kg, Priority: STAT, Start date: 09/15/19 12:45:00 STOCK LETTERER, Stop date: 09/15/19 12:45:00 STOCK LETTERER Sodium 2020-0 No 1,000 mL, Memori a Chloride 2-10 Rate: 50 l 0.9% IV 18:45: ml/hr, [place] 1,000 mL 00 Infuse over: 20 hr, Route: IV, Dosing Weight 68.182 kg, Total Volume: 1,000, Priority: STAT, Start date: 09/15/19 12:45:00 STOCK LETTERER, Duration: 30 day, Stop date: 10/15/19 12:44:00 CDT, 1.68, m2, 0 Sodium 2020-0 No 50 mL, Memoria Chloride 2-10 Rate: 50 l 0.9% IV 50 18:45: ml/hr, Crystal nn mL 00 Infuse over: 1 hr, Route: IV, Dosing Weight 68.182 kg, Total Volume: 50, Use to FLUSH line AFTER tPA infusion., Priority: Routine, Start date: 09/15/19 12:45:00 STOCK LETTERER, Duration: 1 doses or times, Stop date: 09/15/19 13:44:00 STOCK LETTERER,... Alteplase 2020-0 No 6.1364 mg, Me moria 2-10 Route: IV, l 18:45: ONCE, Dosing Weight 68.182, kg, Priority: STAT, Start date: 09/15/19 12:45:00 STOCK LETTERER, Stop date: 09/15/19 12:45:00 STOCK LETTERER Sodium 2020-0 No 1,000 mL, Memori a Chloride 2-10 Rate: 50 l 0.9% IV 18:45: ml/hr, [place] 1,000 mL 00 Infuse over: 20 hr, Route: IV, Dosing Weight 68.182 kg, Total Volume: 1,000, Priority: STAT, Start date: 09/15/19 12:45:00 STOCK LETTERER, Duration: 30 day, Stop date: 10/15/19 12:44:00 CDT, 1.68, m2, 0 Sodium 2020-0 No 50 mL, Memoria Chloride 2-10 Rate: 50 l 0.9% IV 50 18:45: ml/hr, Crystal nn mL 00 Infuse over: 1 hr, Route: IV, Dosing Weight 68.182 kg, Total Volume: 50, Use to FLUSH line AFTER tPA infusion., Priority: Routine, Start date: 09/15/19 12:45:00 STOCK LETTERER, Duration: 1 doses or times, Stop date: 09/15/19 13:44:00 STOCK LETTERER,... Alteplase 2020-0 No 6.1364 mg, Me moria 2-10 Route: IV, l 18:45: ONCE, [place] 00 Dosing Weight 68.182, kg, Priority: STAT, Start date: 09/15/19 12:45:00 STOCK LETTERER, Stop date: 09/15/19 12:45:00 STOCK LETTERER Sodium 2020-0 No 1,000 mL, Memori a Chloride 2-10 Rate: 50 l 0.9% IV 18:45: ml/hr, [place] 1,000 mL 00 Infuse over: 20 hr, Route: IV, Dosing Weight 68.182 kg, Total Volume: 1,000, Priority: STAT, Start date: 09/15/19 12:45:00 STOCK LETTERER, Duration: 30 day, Stop date: 10/15/19 12:44:00 CDT, 1.68, m2, 0 Sodium 2020-0 No 50 mL, Memoria Chloride 2-10 Rate: 50 l 0.9% IV 50 18:45: ml/hr, Crystal nn mL 00 Infuse over: 1 hr, Route: IV, Dosing Weight 68.182 kg, Total Volume: 50, Use to FLUSH line AFTER tPA infusion., Priority: Routine, Start date: 09/15/19 12:45:00 STOCK LETTERER, Duration: 1 doses or times, Stop date: 09/15/19 13:44:00 STOCK LETTERER,... Alteplase 2020-0 No 6.1364 mg, Me moria 2-10 Route: IV, l 18:45: ONCE, [place] 00 Dosing Weight 68.182, kg, Priority: STAT, Start date: 09/15/19 12:45:00 STOCK LETTERER, Stop date: 09/15/19 12:45:00 STOCK LETTERER Iohexol 2020-0 No 60 mL, Memoria 2-10 Route: l 18:18: IVP, Drug [place] 00 Form: SOLN, kg, ONCALL, STAT, Start date: 09/15/19 12:18:00 STOCK LETTERER, Duration: 1 doses or times, Dose = 2.2ml/kg, Max dose = 100ml -- "To be infused by Radiology Staff ONLY" Iohexol 2020-0 No 60 mL, Memoria 2-10 Route: l 18:18: IVP, Drug [place] 00 Form: SOLN, kg, ONCALL, STAT, Start date: 09/15/19 12:18:00 STOCK LETTERER, Duration: 1 doses or times, Dose = 2.2ml/kg, Max dose = 100ml -- "To be infused by Radiology Staff ONLY" Iohexol 2020-0 No 60 mL, Memoria 2-10 Route: l 18:18: IVP, Drug [place] 00 Form: SOLN, kg, ONCALL, STAT, Start date: 09/15/19 12:18:00 STOCK LETTERER, Duration: 1 doses or times, Dose = 2.2ml/kg, Max dose = 100ml -- "To be infused by Radiology Staff ONLY" Iohexol 2020-0 No 60 mL, Memoria 2-10 Route: l 18:18: IVP, Drug [place] 00 Form: SOLN, kg, ONCALL, STAT, Start date: 09/15/19 12:18:00 STOCK LETTERER, Duration: 1 doses or times, Dose = 2.2ml/kg, Max dose = 100ml -- "To be infused by Radiology Staff ONLY" Iohexol 2020-0 No 60 mL, Memoria 2-10 Route: l 18:18: IVP, Drug [place] 00 Form: SOLN, kg, ONCALL, STAT, Start date: 09/15/19 12:18:00 STOCK LETTERER, Duration: 1 doses or times, Dose = 2.2ml/kg, Max dose = 100ml -- "To be infused by Radiology Staff ONLY" Iohexol 2020-0 No 60 mL, Memoria 2-10 Route: l 18:18: IVP, Drug [place] 00 Form: SOLN, kg, ONCALL, STAT, Start date: 09/15/19 12:18:00 STOCK LETTERER, Duration: 1 doses or times, Dose = 2.2ml/kg, Max dose = 100ml -- "To be infused by Radiology Staff ONLY" Iohexol 2020-0 No 60 mL, Memoria 2-10 Route: l 18:18: IVP, Drug [place] 00 Form: SOLN, kg, ONCALL, STAT, Start date: 09/15/19 12:18:00 STOCK LETTERER, Duration: 1 doses or times, Dose = 2.2ml/kg, Max dose = 100ml -- "To be infused by Radiology Staff ONLY" Iohexol 2020-0 No 60 mL, Memoria 2-10 Route: l 18:18: IVP, Drug [place] 00 Form: SOLN, kg, ONCALL, STAT, Start date: 09/15/19 12:18:00 STOCK LETTERER, Duration: 1 doses or times, Dose = 2.2ml/kg, Max dose = 100ml -- "To be infused by Radiology Staff ONLY" Nicardipine 2020-0 No Notes: Hector imtiaz 2-10 Same as: l 18:11: Cardene [place] 00 Concentrat ion: (0.2 mg /1 ml ) Nicardipine 2020-0 No Notes: Hector imtiaz 2-10 Same as: l 18:11: Cardene [place] 00 Concentrat ion: (0.2 mg /1 ml ) Nicardipine 2020-0 No Notes: Hector imtiaz 2-10 Same as: l 18:11: Cardene [place] 00 Concentrat ion: (0.2 mg /1 ml ) Nicardipine 2020-0 No Notes: Hector imtiaz 2-10 Same as: l 18:11: Cardene [place] 00 Concentrat ion: (0.2 mg /1 ml [...] 0.9% 2-10 Same as: l 17:53: BD [place] 00 Posiflush Sterile Saline 2019-0 No Notes: Memoria Flush 0.9% 2-10 Same as: l 17:53: BD [place] 00 Posiflush Sterile Saline 2019-0 No Notes: Memoria Flush 0.9% 2-10 Same as: l 17:53: BD [place] 00 Posiflush Sterile Saline 2019-0 No Notes: Memoria Flush 0.9% 2-10 Same as: l 17:53: BD [place] 00 Posiflush Sterile Saline 2020-0 No Notes: Memoria Flush 0.9% 2-10 Same as: l 17:53: BD [place] 00 Posiflush Sterile Saline 2020-0 No Notes: Memoria Flush 0.9% 2-10 Same as: l 17:53: BD [place] 00 Posiflush Sterile Saline 2020-0 No Notes: Memoria Flush 0.9% 2-10 Same as: l 17:53: BD [place] 00 Posiflush Sterile Kenalog Kenalog 2020-0 No 1mL Common (Triamcinol (Triamcinol 1-27 S pirit one) one) 00:00: - [facility] Bupivicaine Bupivicaine 2020-0 No 5mL Common [place] 1-27 Spirit 00:00: - [facility] Kenalog Kenalog 2020-0 No 1mL Common (Triamcinol (Triamcinol 1-27 S pirit one) one) 00:00: - [facility] Bupivicaine Bupivicaine 2020-0 No 5mL Common [place] 1-27 Spirit 00:00: - [facility] Advair Advair Yes Mumtaz not Common Diskus Diskus Trivedi defined [facility] potassium potassium Yes Mumtaz not Co mmon Trivedi defined [facility] Valsartan Valsartan Yes Mumtaz not Co mmon Trivedi defined [facility] Losartan Losartan Yes Mumtaz not Comm on Potassium Potassium Trivedi defined Sp maurice [facility] Labetalol Labetalol Yes Mumtaz not Co mmon HCl HCl Trivedi defined [facility] Benzonatate Benzonatate Yes Mumtaz not Common Trivedi defined [facility] Hydrochloro Hydrochloro Yes Mumtaz not Common thiazide thiazide Trivedi defined Spir it [facility] Baclofen Baclofen Yes Mumtaz not Comm on Trivedi defined [facility] Diltiazem Diltiazem Yes Mumtaz not Co mmon HCl HCl Trivedi defined [facility] Biofreeze Biofreeze Yes Mumtaz not Co mmon Trivedi defined [facility] Potassium Potassium Yes Mumtaz not Co mmon Chloride Chloride Trivedi defined Spir it [facility] Omeprazole Omeprazole Yes Mumtaz not Common Trivedi defined [facility] Eliquis Eliquis Yes Mumtaz not Common Trivedi defined [facility] Diazepam Diazepam Yes Mumtaz not Comm on Trivedi defined [facility] HydrALAZINE HydrALAZINE Yes Mumtaz not Common HCl HCl Trivedi defined [facility] Gabapentin Gabapentin Yes Mumtaz not Common Trivedi defined [facility] Furosemide Furosemide Yes Mumtaz not Common Trivedi defined [facility] Acetaminoph Acetaminoph Yes Mumtaz not Common en en Trivedi defined [facility] Aspercreme Aspercreme Yes Mumtaz not Common Trivedi defined [facility] Diltiazem Diltiazem Yes Mumtaz not Co mmon HCl ER HCl ER Trivedi defined [facility] hydroCHLORO hydroCHLORO No hydroCHLOR thiazide thiazide [...] Potassium Potassium Potassium Furosemide Furosemide No Furosemide Vital Signs Vital Name Observation Time Observation Value Comments Source height 2022-03-17 09:00:00 59 [in_i] [facility] weight 2022-03-17 09:00:00 159 [lb_av] [facility] temperature 2022-03-17 09:00:00 97.2 [degF] [facility] bmi 2022-03-17 09:00:00 32.11 kg/m2 [facility] blood pressure 2022-03-17 09:00:00 132 mm[Hg] [facility] blood pressure 2022-03-17 09:00:00 84 mm[Hg] [facility] height 2021-08-23 10:30:00 59 [in_i] [facility] weight 2021-08-23 10:30:00 159 [lb_av] Common [facility] - [facility] temperature 2021-08-23 10:30:00 98.0 [degF] Common S pirit - [facility] bmi 2021-08-23 10:30:00 32.11 kg/m2 Common S pirit - [facility] blood pressure 2021-08-23 10:30:00 144 mm[Hg] [facility] blood pressure 2021-08-23 10:30:00 86 mm[Hg] [facility] Systolic (mm Hg) 2022-09-21 15:34:00 Hector rial [place] Diastolic (mm Hg) 2022-09-21 15:34:00 Mem orial [place] Heart Rate 2022-09-21 15:34:00 [facility] [place] Systolic (mm Hg) 2021-09-01 15:05:00 Hector rial [place] Diastolic (mm Hg) 2021-09-01 15:05:00 Mem orial [place] Heart Rate 2021-09-01 15:05:00 [facility] [place] Respitory Rate 2021-09-01 15:05:00 Memori al [place] Systolic (mm Hg) 2020-10-14 15:15:00 Hector rial [place] Diastolic (mm Hg) 2020-10-14 15:15:00 Mem orial [place] Heart Rate 2020-10-14 15:15:00 [facility] [place] Respitory Rate 2020-10-14 15:15:00 Memori al [place] Weight 2020-10-14 15:15:00 [facility] [place] Systolic (mm Hg) 2020-09-23 16:25:00 Hector rial [place] Diastolic (mm Hg) 2020-09-23 16:25:00 Mem orial [place] Heart Rate 2020-09-23 16:25:00 [facility] [place] Respitory Rate 2020-09-23 16:25:00 Memori al [place] Height 2020-09-23 16:25:00 149.86 cm [facility] [place] Weight 2020-09-23 16:25:00 [facility] [place] BMI Calculated 2020-09-23 16:25:00 Memori al [place] Systolic (mm Hg) 2020-08-03 21:57:00 Hector rial [place] Diastolic (mm Hg) 2020-08-03 21:57:00 Mem orial [place] Heart Rate 2020-08-03 21:57:00 [facility] [place] Respitory Rate 2020-08-03 21:57:00 [facility] [place] Height 2020-08-03 21:57:00 149.86 cm [facility] [place] Weight 2020-08-03 21:57:00 [facility] [place] BMI Calculated 2020-08-03 21:57:00 Memori al [place] Systolic (mm Hg) 2020-06-17 15:10:00 Hector rial [place] Diastolic (mm Hg) 2020-06-17 15:10:00 Mem o[facility] [place] Heart Rate 2020-06-17 15:10:00 [facility] [place] Height 2020-06-17 15:10:00 149.86 cm [facility] [place] Weight 2020-06-17 15:10:00 [facility] [place] BMI Calculated 2020-06-17 15:10:00 [facility] [place] Temperature Oral (F) 2019-09-26 19:34:00 98.3 F [facility] [place] Heart Rate 2019-09-26 19:34:00 [facility] [place] Respitory Rate 2019-09-26 19:34:00 Memori al [place] Systolic (mm Hg) 2019-09-26 19:34:00 Hector rial [place] Diastolic (mm Hg) 2019-09-26 19:34:00 Mem [facility] [place] Temperature Oral (F) 2019-09-26 15:11:00 98.7 F [facility] [place] Heart Rate 2019-09-26 15:11:00 [facility] [place] Respitory Rate 2019-09-26 15:11:00 Memori al [place] Systolic (mm Hg) 2019-09-26 15:11:00 Hector rial [place] Diastolic (mm Hg) 2019-09-26 15:11:00 Mem o[facility] [place] Temperature Oral (F) 2019-09-26 09:25:00 98.3 F [facility] [place] Heart Rate 2019-09-26 09:25:00 [facility] [place] Respitory Rate 2019-09-26 09:25:00 Memori al [place] Systolic (mm Hg) 2019-09-26 09:25:00 Hector rial [place] Diastolic (mm Hg) 2019-09-26 09:25:00 Mem orial [place] Height 2019-09-16 14:57:00 142[facility]24 [facility] 2019-09-16 14:57:00 [facility] Height 2019-09-15 18:20:00 142.24 cm [facility] BMI Calculated 2019-09-15 18:20:00 Mem[facility] al [place] Weight 2019-09-15 18:20:00 [facility] Procedures Procedure Date / Time Performing Clinician Source Performed Chemodenervation of one 2022-11-30 15:40:00 Hector rial [place] extremity; 1-4 muscle(s) Chemodenervation of one 2022-08-17 16:14:00 Hector rial [place] extremity; 1-4 muscle(s) Chemodenervation of one 2022-05-26 00:10:00 Hector rial [place] extremity; 1-4 muscle(s) Thrombolysis, cerebral, by 2019-09-15 19:45:00 [facility] intravenous infusion Plan of Care Planned Activity Planned Date Details Comments Source Future Scheduled 2022-11-10 COVID-19 VACCINE (#1) [facility] Test 02:50:36 [code = COVID-19 VACCINE (#1)] Future Scheduled 2022-11-10 SHINGLES VACCINES (1 Met [facility] Test 02:50:36 of 2) [code = SHINGLES VACCINES (1 of 2)] Future Scheduled 2022-11-10 65+ [facility]OCOCCAL [facility] Test 02:50:36 VACCINE (1 - PCV) [code = 65+ PNEUMOCOCCAL VACCINE (1 - PCV)] Future Scheduled 2022-11-10 INFLUENZA VACCINE Method [facility] Test 02:50:36 [code = INFLUENZA VACCINE] Future Scheduled 2022-10-04 COVID-19 VACCINE (#1) [facility] Test 14:07:52 [code = COVID-19 VACCINE (#1)] Future Scheduled 2022-10-04 SHINGLES VACCINES (1 Met [facility] Test 14:07:52 of 2) [code = SHINGLES VACCINES (1 of 2)] Future Scheduled 2022-10-04 65+ [facility]OCOCCAL [facility] Test 14:07:52 VACCINE (1 - PCV) [code = 65+ PNEUMOCOCCAL VACCINE (1 - PCV)] Future Scheduled 2022-10-04 INFLUENZA VACCINE [facility] Test 14:07:52 [code = INFLUENZA VACCINE] Future Scheduled 2022-07-20 65+ [facility]OCOCCAL [facility] Test 19:44:22 VACCINE (1 - PCV) [code = 65+ PNEUMOCOCCAL VACCINE (1 - PCV)] Future Scheduled 2022-07-20 INFLUENZA VACCINE [facility] Test 19:44:22 [code = INFLUENZA VACCINE] Future Scheduled 2022-07-20 COVID-19 VACCINE (#1) [facility] Test 19:44:22 [code = COVID-19 VACCINE (#1)] Future Scheduled 2022-07-20 SHINGLES VACCINES (1 Met [facility] Test 19:44:22 of 2) [code = SHINGLES VACCINES (1 of 2)] Future Scheduled 2022-06-09 HEPATITIS B VACCINES Met [facility] Test 02:50:07 (1 of 3 - 3-dose series) [code = HEPATITIS B VACCINES (1 of 3 - 3-dose series)] Future Scheduled 2022-06-09 COVID-19 VACCINE (#1) [facility] Test 02:50:07 [code = COVID-19 VACCINE (#1)] Future Scheduled 2022-06-09 SHINGLES VACCINES (1 Met [facility] Test 02:50:07 of 2) [code = SHINGLES VACCINES (1 of 2)] Future Scheduled 2022-06-09 65+ PNEUMOCOCCAL [facility] Test 02:50:07 VACCINE (1 - PCV) [code = 65+ PNEUMOCOCCAL VACCINE (1 - PCV)] Future Scheduled 2022-06-09 INFLUENZA VACCINE [facility] Test 02:50:07 [code = INFLUENZA VACCINE] Encounters Start End Encounter Admission Attending Care Care Encounter Source Date/Time Date/Time Type Type Clinicians Facility Department ID 2022-03-21 Outpatient [facility] [id number] Common 16:42:01 [facility] 2022-03-16 Outpatient [facility] [id number] Common 14:43:00 [facility] 2022-03-15 Outpatient [facility] [id number] Common 13:47:01 [facility] 2021-12-01 Outpatient [facility] [id number] [place] 15:23:41 [id number] [facility] 2021-09-01 Outpatient [id number] ENCPL CVA [facility] 12:36:39 [facility] 2021-09-01 Outpatient 3 [id number] ENCPL REF [facility] 12:35:16 0727 [facility] [place] [facility] 2021-09-01 Outpatient 3 [id number] ENCPL YODIT [facility] 11:51:13 0330 [facility] [place] [facility] 2021-09-01 Outpatient 3 [id number] ENCPL REF [facility] 11:45:49 0316 [facility] [place] [facility] 2021-09-01 Outpatient 3 [id number] ENCPL OTH [facility] 09:13:32 0218 [facility] [place] [facility] 2021-09-01 Outpatient 3 [id number] ENCPL REF [facility] 09:12:29 0214 [facility] [place] [facility] 2021-08-31 Outpatient STLMLC STLMLC [id number] Common 13:25:14 [id number] [facility] 2021-08-31 Outpatient STLMLC STLMLC [id number] Common 13:24:49 [id number] [facility] 2021-08-31 Outpatient STLMLC STLMLC [id number] Common 12:43:02 [id number] [facility] 2021-08-31 Outpatient STLMLC STLMLC [id number] Common 12:13:01 [id number] [facility] 2021-08-31 Outpatient STLMLC STLMLC [id number] Common 11:31:48 [id number] [facility] 2021-08-31 Outpatient STLMLC STLMLC [id number] Common 11:03:31 [id number] [facility] 2023-01-18 2023-01-18 Outpatient MHIE MHIE [id number] Memoria 09:15:00 09:15:00 18 owen Alcazar 2023-01-18 2023-01-18 Outpatient MHIE MHIE [id number] Memoria 09:15:00 09:15:00 18 owen Alcazar 2022-11-30 2022-12-01 Outpatient MHIE MNA [id number] Memoria 14:30:00 04:59:59 Neurology 16 owen Alcazar 2022-11-30 2022-12-01 Outpatient MHIE MNA [id number] Memoria 14:30:00 04:59:59 Neurology 16 owen Alcazar 2022-11-30 2022-11-30 Outpatient Addi, RUSSELLMISCHER MHMISCHER [id number] 09:30:00 23:59:59 Yaniv 16 [place] 2022-11-30 2022-11-30 Outpatient Addi, MHMISCHER MHMISCHER [id number] 09:30:00 23:59:59 Yaniv 16 [place] 2022-11-30 2022-11-30 Outpatient MHIE MHIE [id number] Memoria 09:30:00 09:30:00 16 owen Alcazar 2022-11-30 2022-11-30 Outpatient MHIE MHIE [id number] Memoria 09:30:00 09:30:00 16 owen Alcazar 2022-11-30 2022-11-30 Outpatient MHIE MHIE [id number] Memoria 09:30:00 09:30:00 16 owen Alcazar 2022-11-16 2022-11-16 Ambulatory MHIE MNA [id number] Memoria 14:30:00 14:30:00 Pre-Reg Neurology 13 owen Alcazar 2022-11-16 2022-11-16 Ambulatory MHIE MNA [id number] Memoria 14:30:00 14:30:00 Pre-Reg Neurology 13 owen Alcazar 2022-11-16 2022-11-16 Outpatient Addi, RUSSELLMISCHER MHMISCHER [id number] 09:30:00 09:30:00 Yaniv 13 [place] 2022-11-16 2022-11-16 Outpatient Addi, MHMISCHER MHMISCHER [id number] 09:30:00 09:30:00 Yaniv 13 [place] 2022-11-14 2022-11-14 Outpatient MHIE MHIE [id number] Memoria 16:30:00 16:30:00 17 owen Alcazar 2022-11-14 2022-11-14 Outpatient MHIE MHIE [id number] Memoria 16:30:00 16:30:00 17 owen Alcazar 2022-11-14 2022-11-14 Outpatient MHIE MHIE [id number] Memoria 10:45:00 10:45:00 13 owen Alcazar 2022-11-14 2022-11-14 Outpatient MHIE MHIE [id number] Memoria 10:45:00 10:45:00 13 owen Alcazar 2022-11-14 2022-11-14 Outpatient MHIE MHIE [id number] Memoria 10:45:00 10:45:00 13 owen Alcazar 2022-09-28 2022-09-28 Ambulatory MHIE MNA [id number] Memoria 16:30:00 16:30:00 Pre-Reg Neurology 12 owen Alcazar 2022-09-28 2022-09-28 Ambulatory MHIE MNA [id number] Memoria 16:30:00 16:30:00 Pre-Reg Neurology 12 l Paulo Alcazar 2022-09-28 2022-09-28 Ambulatory MHIE MNA [id number] Memoria 16:30:00 16:30:00 Pre-Reg Neurology 12 l Paulo Alcazar 2022-09-28 2022-09-28 Outpatient MHIE MHIE [id number] Memoria 10:30:00 10:30:00 12 owen Alcazar 2022-09-28 2022-09-28 Outpatient MHIE MHIE [id number] Memoria 10:30:00 10:30:00 12 owen Alcazar 2022-09-28 2022-09-28 Outpatient Addi, SAMUELSCHER MHMISCHER [id number] 10:30:00 10:30:00 Yaniv 12 [place] 2022-09-28 2022-09-28 Outpatient Addi, MHMISCHER MHMISCHER [id number] 10:30:00 10:30:00 Yaniv 12 [place] 2022-09-21 2022-09-22 Outpatient MHIE MNA [id number] Memoria 15:30:00 05:59:59 Neurology 14 l Paulo Alcazar 2022-09-21 2022-09-22 Outpatient MHIE MNA [id number] Memoria 15:30:00 05:59:59 Neurology 14 l Paulo Alcazar 2022-09-212022-09-22 Outpatient MHIE MNA [id number] Memoria 15:30:00 05:59:59 Neurology 14 owen Alcazar 2022-09-21 2022-09-21 Outpatient SAMUEL FontanaSCHER MISCHER [id number] 09:30:00 23:59:59 Yaniv 14 Gasper 2022-09-21 2022-09-21 Outpatient RUSSELL FontanaTXSCHER MISCHER [id number] 09:30:00 23:59:59 Yaniv 14 Gasper 2022-09-21 2022-09-21 Outpatient MHIE MHIE [id number] Memoria 09:30:00 09:30:00 14 owen Alcazar 2022-09-21 2022-09-21 Outpatient MHIE MHIE [id number] Memoria 09:30:00 09:30:00 14 owen Alcazar 2022-09-07 2022-09-07 Outpatient MHIE MHIE [id number] Memoria 16:15:00 16:15:00 15 owen Alcazar 2022-09-07 2022-09-07 Outpatient MHIE MHIE [id number] Memoria 16:15:00 16:15:00 15 owen Alcazar 2022-09-07 2022-09-07 Outpatient MHIE MHIE [id number] Memoria 16:15:00 16:15:00 15 owen Alcazar 2022-08-17 2022-08-18 Outpatient MHIE MNA [id number] Memoria 15:30:00 05:59:59 Neurology 10 owen Reddingann 2022-08-17 2022-08-18 Outpatient MHIE MNA [id number] Memoria 15:30:00 05:59:59 Neurology 10 owen Alcazar 2022-08-17 2022-08-18 Outpatient MHIE MNA [id number] Memoria 15:30:00 05:59:59 Neurology 10 owen Alcazar 2022-08-17 2022-08-17 Outpatient SAMUEL FontanaSCHER MISCHER [id number] 09:30:00 23:59:59 Yaniv 10 Gasper 2022-08-17 2022-08-17 Outpatient SAMUEL FontanaSCHER MISCHER [id number] 09:30:00 23:59:59 Yaniv 10 Gasper 2022-08-17 2022-08-17 Outpatient MHIE MHIE [id number] Memoria 09:30:00 09:30:00 10 owen Alcazar 2022-08-17 2022-08-17 Outpatient MHIE MHIE [id number] Memoria 09:30:00 09:30:00 10 owen Alcazar 2022-08-03 2022-08-03 Outpatient MHIE MHIE [id number] Memoria 16:00:00 16:00:00 11 owen Alcazar 2022-08-03 2022-08-03 Outpatient MHIE MHIE [id number] Memoria 16:00:00 16:00:00 11 owen Alcazar 2022-08-03 2022-08-03 Outpatient MHIE MHIE [id number] Memoria 16:00:00 16:00:00 11 owen Alcazar 2022-05-25 2022-05-26 Outpatient nullFlavo MNA [id number] Memoria 14:00:00 04:59:59 r Neurology 09 l Paulo Alcazar 2022-05-25 2022-05-26 Outpatient nullFlavo MNA [id number] Memoria 14:00:00 04:59:59 r Neurology 09 l Paulo Alcazar 2022-05-25 2022-05-26 Outpatient nullFlavo MNA [id number] Memoria 14:00:00 04:59:59 r Neurology 09 l Paulo Alcazar 2022-05-25 2022-05-25 Outpatient SAMUEL FontanaSCHER MISCHER [id number] 09:00:00 23:59:59 Yaniv 09 Gasper 2022-05-25 2022-05-25 Outpatient SAMUEL FontanaSCHER MISCHER [id number] 09:00:00 23:59:59 Yaniv 09 Gasper 2022-05-25 2022-05-25 Outpatient MHIE MHIE [id number] Memoria 09:00:00 09:00:00 09 owen Alcazar 2022-05-25 2022-05-25 Outpatient MHIE MHIE [id number] Memoria 09:00:00 09:00:00 09 owen Alcazar 2022-03-30 2022-03-30 Ambulatory nullFlavo MNA [id number] Memoria 16:15:00 16:15:00 Pre-Reg r Neurology 08 l Paulo Alcazar 2022-03-30 2022-03-30 Ambulatory nullFlavo MNA [id number] Memoria 16:15:00 16:15:00 Pre-Reg r Neurology 08 l Paulo Alcazar 2022-03-30 2022-03-30 Ambulatory nullFlavo MNA [id number] Memoria 16:15:00 16:15:00 Pre-Reg r Neurology 08 owen Alcazar 2022-03-30 2022-03-30 Outpatient MHIE MHIE [id number] Memoria 11:15:00 11:15:00 08 owen Alcazar 2022-03-30 2022-03-30 Outpatient MHIE RUSSELLIE [id number] Memoria 11:15:00 11:15:00 08 owen Alcazar 2022-03-30 2022-03-30 [facility] [id number] 11:15:00 11:15:00 Yaniv Omar Jackman 2022-03-30 2022-03-30 [id number] 11:15:00 11:15:00 Yaniv Omar Jackman 2022-03-28 2022-03-28 [facility] [id number] Co mmon 00:00:00 00:00:00 [facility] 2022-03-17 2022-03-17 OFFICE STLMLC STLMLC [id number] Co mmon 00:00:00 00:00:00 VISIT [facility] ESTAB PT - [facility] LEVEL 4 [facility] 2022-02-27 2022-02-28 Outpatient nullFlavo MNA [id number] Memoria 15:00:00 04:59:59 r Neurology 07 l Paulo Alcazar 2022-02-27 2022-02-28 Outpatient nullFlavo MNA [id number] Memoria 15:00:00 04:59:59 r Neurology 07 l Paulo Alcazar 2022-02-27 2022-02-28 Outpatient nullFlavo MNA [id number] Memoria 15:00:00 04:59:59 r Neurology 07 l Paulo Alcazar 2022-02-27 2022-02-27 Outpatient RUSSELL [facility]TXSCHER [facility] [id number] 10:00:00 23:59:59 Yaniv 07 Gasper 2022-02-27 2022-02-27 Outpatient [facility]SCHER [facility] [id number] 10:00:00 23:59:59 Yaniv 07 Gasper 2022-02-27 2022-02-27 Outpatient MHIE MHIE [id number] Memoria 10:00:00 10:00:00 07 owen Canterbury 2022-02-27 2022-02-27 Outpatient MHIE MHIE [id number] Memoria 10:00:00 10:00:00 07 owen Alcazar 2021-12-08 2021-12-09 Outpatient nullFlavo MNA [id number] Memoria 14:45:00 04:59:59 r Neurology 06 l Paulo Alcazar 2021-12-08 2021-12-09 Outpatient nullFlavo MNA [id number] Memoria 14:45:00 04:59:59 r Neurology 06 l Payette Ottoniel 2021-12-08 2021-12-09 Outpatient nullFlavo MNA [id number] Memoria 14:45:00 04:59:59 r Neurology 06 l Paulo Canterbury 2021-12-08 2021-12-08 Outpatient SAMUEL FontanaSCHER MISCHER [id number] 09:45:00 23:59:59 Yaniv 06 Gasper 2021-12-08 2021-12-08 Outpatient [facility]USSELL [facility]TXSCH[facility] [id number] 09:45:00 23:59:59 Yaniv 06 Gasper 2021-12-08 2021-12-08 Outpatient MHIE MHIE [id number] Memoria 09:45:00 09:45:00 06 owen Canterbury 2021-12-08 2021-12-08 Outpatient MHIE MHIE [id number] Memoria 09:45:00 09:45:00 06 owen Canterbury 2021-10-27 2021-10-28 Outpatient nullFlavo MNA [id number] Memoria 14:30:00 04:59:59 r Neurology 05 l Payette Ottoniel 2021-10-27 2021-10-28 Outpatient nullFlavo MNA [id number] Memoria 14:30:00 04:59:59 r Neurology 05 l Paulo Alcazar 2021-10-27 2021-10-28 Outpatient nullFlavo MNA [id number] Memoria 14:30:00 04:59:59 r Neurology 05 l Paulo Alcazar 2021-10-27 2021-10-27 Outpatient RUSSELL FontanaMISCHER MHMISCHER [id number] 09:30:00 23:59:59 Yaniv 05 Gasper 2021-10-27 2021-10-27 Outpatient RUSSELL FontanaMISCHER MHMISCHER [id number] 09:30:00 23:59:59 Yaniv 05 Gasper 2021-10-27 2021-10-27 Outpatient MHIE MHIE [id number] Memoria 09:30:00 09:30:00 05 owen Alcazar 2021-10-27 2021-10-27 Outpatient MHIE MHIE [id number] Memoria 09:30:00 09:30:00 05 owen Alcazar 2021-09-01 2021-09-02 Outpatient nullFlavo MNA [id number] Memoria 15:00:00 05:59:59 r Neurology 04 l Paulo Alcazar 2021-09-01 2021-09-02 Outpatient nullFlavo MNA [id number] Memoria 15:00:00 05:59:59 r Neurology 04 l Paulo Alcazar 2021-09-01 2021-09-02 Outpatient nullFlavo MNA [id number] Memoria 15:00:00 05:59:59 r Neurology 04 l Paulo Alcazar 2021-09-01 2021-09-01 Outpatient Addi, RUSSELLMISCHER MHMISCHER [id number] 09:00:00 23:59:59 Yaniv 04 Gasper 2021-09-01 2021-09-01 Outpatient Addi, MHMISCHER MHMISCHER [id number] 09:00:00 23:59:59 Yaniv 04 Gasper 2021-09-01 2021-09-01 Outpatient MHIE MHIE [id number] Memoria 09:00:00 09:00:00 04 owen Alcazar 2021-09-01 2021-09-01 Outpatient MHIE MHIE [id number] Memoria 09:00:00 09:00:00 04 owen Alcazar 2021-08-23 2021-08-23 OFFICE STLMLC STLMLC [id number] Co mmon 00:00:00 00:00:00 VISIT [facility] LEVEL 4 [facility] 2021-05-18 2021-05-20 Outside nullFlavo MNA [id number] Memoria 13:14:38 04:59:59 Medical r Neurology 05 l Records Paulo Alcazar 2021-05-18 2021-05-20 Outside nullFlavo MNA [id number] Memoria 13:14:38 04:59:59 Medical r Neurology 05 l Records Paulo Alcazar 2021-05-18 2021-05-20 Outside nullFlavo MNA [id number] Memoria 13:14:38 04:59:59 Medical r Neurology 05 l Records Paulo Alcazar 2021-05-18 2021-05-19 Outpatient MHMISCHER MHMISCHER [id number] 08:14:38 23:59:59 05 2021-05-18 2021-05-19 Outpatient MHMISCHER MHMISCHER [id number] 08:14:38 23:59:59 05 2021-03-01 2021-03-03 Outside nullFlavo MNA [id number] Memoria 13:37:14 04:59:59 Medical r Neurology 04 l Records Paulo Alcazar 2021-03-01 2021-03-03 Outside nullFlavo MNA [id number] Memoria 13:37:14 04:59:59 Medical r Neurology 04 l Records Paulo Alcazar 2021-03-01 2021-03-03 Outside nullFlavo MNA [id number] Memoria 13:37:14 04:59:59 Medical r Neurology 04 l Records Paulo Alcazar 2021-03-01 2021-03-02 Outpatient MHMISCHER MHMISCHER [id number] 08:37:14 23:59:59 04 2021-03-01 2021-03-02 Outpatient MHMISCHER MHMISCHER [id number] 08:37:14 23:59:59 04 2021-02-15 2021-02-15 [facility] [id number] Common 00:00:00 00:00:00 [facility] 2020-11-30 2020-12-02 Outside nullFlavo MNA [id number] Memoria 17:03:43 04:59:59 Medical r Neurology 03 l Records Paulo Alcazar 2020-11-30 2020-12-02 Outside nullFlavo MNA [id number] Memoria 17:03:43 04:59:59 Medical r Neurology 03 l Records Paulo Alcazar 2020-11-30 2020-12-02 Outside nullFlavo MNA [id number] Memoria 17:03:43 04:59:59 Medical r Neurology 03 l Records Paulo Alcazar 2020-11-30 2020-12-01 Outpatient MHMISCHER MHMISCHER [id number] 12:03:43 23:59:59 03 2020-11-30 2020-12-01 Outpatient MHMISCHER MHMISCHER [id number] 12:03:43 23:59:59 03 2020-11-12 2020-11-14 Outside nullFlavo MNA [id number] Memoria 13:52:31 04:59:59 Medical r Neurology 02 l Records Paulo Alcazar 2020-11-12 2020-11-14 Outside nullFlavo MNA [id number] Memoria 13:52:31 04:59:59 Medical r Neurology 02 l Records Paulo Alcazar 2020-11-12 2020-11-14 Outside nullFlavo MNA [id number] Memoria 13:52:31 04:59:59 Medical r Neurology 02 l Records Paulo Alcazar 2020-11-12 2020-11-13 Outpatient MHMISCHER MHMISCHER [id number] 08:52:31 23:59:59 02 2020-11-12 2020-11-13 Outpatient MHMISCHER MHMISCHER [id number] 08:52:31 23:59:59 02 2020-10-26 2020-10-26 [facility] [id number] Common 00:00:00 00:00:00 [facility] 2020-10-22 2020-10-24 Outside nullFlavo MNA [id number] Memoria 21:10:49 04:59:59 Medical r Neurology 01 l Records Paulo Alcazar 2020-10-22 2020-10-24 Outside nullFlavo MNA [id number] Memoria 21:10:49 04:59:59 Medical r Neurology 01 l Records Paulo Alcazar 2020-10-22 2020-10-24 Outside nullFlavo MNA [id number] Memoria 21:10:49 04:59:59 Medical r Neurology 01 l Records Paulo Alcazar 2020-10-22 2020-10-23 Outpatient MHMISCHER MHMISCHER [id number] 16:10:49 23:59:59 2020-10-22 2020-10-23 Outpatient MHMISCHER MHMISCHER [id number] 16:10:49 23:59:59 2020-10-19 2020-10-21 Outside nullFlavo MNA [id number] Memoria 15:35:15 04:59:59 Medical r Neurology 00 l Records Paulo Alcazar 2020-10-19 2020-10-21 Outside nullFlavo MNA [id number] Memoria 15:35:15 04:59:59 Medical r Neurology 00 l Records Paulo Alcazar 2020-10-19 2020-10-21 Outside nullFlavo MNA [id number] Memoria 15:35:15 04:59:59 Medical r Neurology 00 l Records Paulo Alcazar 2020-10-19 2020-10-20 Outpatient MHMISCHER MHMISCHER [id number] 10:35:15 23:59:59 2020-10-19 2020-10-20 Outpatient MHMISCHER MHMISCHER [id number] 10:35:15 23:59:59 2020-10-14 2020-10-15 Outpatient nullFlavo MNA [id number] Memoria 15:15:00 05:59:59 r Neurology 03 l Paulo Alcazar 2020-10-14 2020-10-15 Outpatient nullFlavo MNA [id number] Memoria 15:15:00 05:59:59 r Neurology 03 l Paulo Alcazar 2020-10-14 2020-10-15 Outpatient nullFlavo MNA [id number] Memoria 15:15:00 05:59:59 r Neurology 03 l Paulo Alcazar 2020-10-14 2020-10-14 Outpatient [facility]USSELL Font[facility]TXSCHER [facility] [id number] 09:15:00 23:59:59 Yaniv 03 Gasper 2020-10-14 2020-10-14 Outpatient SAMUEL FontanaSCHER MISCHER [id number] 09:15:00 23:59:59 Yaniv 03 Gasper 2020-10-14 2020-10-14 Outpatient MHIE MHIE [id number] Memoria 09:15:00 09:15:00 03 owen Alcazar 2020-10-14 2020-10-14 Outpatient MHIE MHIE [id number] Memoria 09:15:00 09:15:00 03 owen Alcazar 2020-09-23 2020-09-24 Outpatient nullFlavo MNA [id number] Memoria 16:15:00 05:59:59 r Neurology 02 l Paulo Reddingann 2020-09-23 2020-09-24 Outpatient nullFlavo MNA [id number] Memoria 16:15:00 05:59:59 r Neurology 02 l Paulo Reddingann 2020-09-23 2020-09-24 Outpatient nullFlavo MNA [id number] Memoria 16:15:00 05:59:59 r Neurology 02 owen Bates [place] 2020-09-23 2020-09-23 Outpatient SAMUEL FontanaSCHER MISCHER [id number] 10:15:00 23:59:59 Yaniv 02 Gasper 2020-09-23 2020-09-23 [facility] [id number] 10:15:00 23:59:59 Yaniv 02 Gasper 2020-09-23 2020-09-23 Outpatient MHIE MHIE [id number] Memoria 10:15:00 10:15:00 02 owen Canterbury 2020-09-23 2020-09-23 Outpatient MHIE MHIE [id number] Memoria 10:15:00 10:15:00 02 owen Ottoniel 2020-08-03 2020-08-04 Outpatient nullFlavo MNA [id number] Memoria 22:00:00 05:59:59 r Neurology 01 l Payette Canterbury 2020-08-03 2020-08-04 Outpatient nullFlavo MNA [id number] Memoria 22:00:00 05:59:59 r Neurology 01 l Paulo Alcazar 2020-08-03 2020-08-04 Outpatient nullFlavo MNA [id number] Memoria 22:00:00 05:59:59 r Neurology 01 l Paulo Alcazar 2020-08-03 2020-08-03 Outpatient Addi, MHMISCHER MHMISCHER [id number] 16:00:00 23:59:59 Yaniv 2020-08-03 2020-08-03 Outpatient Addi MISCHER MHMISCHER [id number] 16:00:00 23:59:59 Yaniv 2020-08-03 2020-08-03 Outpatient MHIE MHIE [id number] Memoria 16:00:00 16:00:00 01 l Ottoniel 2020-08-03 2020-08-03 Outpatient MHIE MHIE [id number] Memoria 16:00:00 16:00:00 01 l Ottoniel 2020-07-20 2020-07-20 Outpatient [facility] [id number] Common 00:00:00 00:00:00 [facility] 2020-06-17 2020-06-18 Outpatient nullFlavo MNA [id number] Memoria 15:15:00 05:59:59 r Neurology 00 l Payette Ottoniel 2020-06-17 2020-06-18 Outpatient nullFlavo MNA [id number] Memoria 15:15:00 05:59:59 r Neurology 00 l Payette Ottoniel 2020-06-17 2020-06-18 Outpatient nullFlavo MNA [id number] Memoria 15:15:00 05:59:59 r Neurology 00 l Payette Ottoniel 2020-06-17 2020-06-17 Outpatient Addi, MHMISCHER MHMISCHER [id number] 09:15:00 23:59:59 Yaniv 00 Gasper 2020-06-17 2020-06-17 Outpatient Addi, MHTXSCHER MHMISCHER [id number] 09:15:00 23:59:59 Yaniv 00 2020-06-17 2020-06-17 Outpatient MHIE MHIE [id number] Memoria 09:15:00 09:15:00 00 l Ottoniel 2020-06-17 2020-06-17 Outpatient MHIE MHIE [id number] Memoria 09:15:00 09:15:00 00 [facility] 2020-02-23 2020-02-23 [facility] [id number] Common 09:00:00 09:00:00 [facility] 2019-09-15 2019-09-27 Inpatient nullFlavo [facility] [id number] Memoria 17:37:00 00:48:[address] 2019-09-15 2019-09-27 Inpatient nullFlavo [facility] [id number] Memoria 17:37:00 00:48:[address] 2019-09-15 2019-09-27 Inpatient nullFlavo [facility] [id number] Memoria 17:37:00 00:48:[address] 2019-09-15 2019-09-26 Outpatient [facility] [id number] 11:37:00 18:48:[address] [place] [address] 2019-09-15 2019-09-26 Outpatient [facility] [id number] 11:37:00 18:48:00 Noureldin [facility] 2019-09-15 2019-09-15 Outpatient [facility] [id number] [facility] 13:19:00 13:19:00 2019-09-15 2019-09-15 Inpatient [facility] [id number] [facility] 13:54:00 11:12:00 2019-09-09 2019-09-09 [facility] [id number] Common 10:43:00 10:43:00 t [facility] 2019-09-01 2019-09-01 Out[facility] [id number] Common 15:00:00 15:00:00 t [facility] Results Test Description Test Time Test Comments Results Result Comments Source CHEM PANEL 2019-09-25 11:51:00 Test Item Value Reference Range Interpretation Comme nts Glucose Lvl (test code = Glucose Lvl) 91 70-99 [facility]2020-02-20 11:51:00 Test Item Value Reference Range Interpretation Comments BUN (test code = BUN) 14 02-24 [facility]2020-02-20 11:51:00 Test Item Value Reference Range Interpretation Comments Creatinine Lvl (test code = Creatinine 0.68 0.50-1.40 Lvl) [facility]2020-02-20 11:51:00 Test Item Value Reference Range Interpretation Comments Sodium Lvl (test code = Sodium Lvl) 135 135-145 [id number] 11:51:00 Test Item Value Reference Range Interpretation Comments Potassium Lvl (test code = Potassium 4.4 3.5-5.1 Lvl) [facility] [id number] 11:51:00 Test Item Value Reference Range Interpretation Comments Chloride Lvl (test code = Chloride Lvl) 103 95-109 [facility] [id number] 11:51:00 Test Item Value Reference Range Interpretation Comments CO2 (test code = CO2) 28 24-32 [facility]2020-02-20 11:51:00 Test Item Value Reference Range Interpretation Comments Calcium Lvl (test code = Calcium Lvl) 9.2 8.5-10.5 [facility]2020-02-20 11:51:00 Test Item Value Reference Range Interpretation Comments AGAP (test code = AGAP) 8.4 10.0-20.0 [facility]ioMISS[facility] [id number] 11:51:00 Test Item Value Reference Range Interpretation Comments eGFR (test code = eGFR) 81 [facility]2020-02-20 11:51:00 Test Item Value Reference Range Interpretation Comments Magnesium Lvl (test code = Magnesium 1.7 1.8-2.4 Lvl) [facility] [id number] 11:51:00 Test Item Value Reference Range Interpretation Comments Phosphorus (test code = Phosphorus) 3.7 2.5-4.5 [facility]2020-02-20 11:51:00 Test Item Value Reference Range Interpretation Comments Glucose Lvl (test code = Glucose Lvl) 91 70-99 [facility]2020-02-20 11:51:00 Test Item Value Reference Range Interpretation Comments BUN (test code = BUN) 14 02-24 [facility]2020-02-20 11:51:00 Test Item Value Reference Range Interpretation Comments Creatinine Lvl (test code = Creatinine 0.68 0.50-1.40 Lvl) [facility]2020-02-20 11:51:00 Test Item Value Reference Range Interpretation Comments Sodium Lvl (test code = Sodium Lvl) 135 135-145 [place] [id number] 11:51:00 Test Item Value Reference Range Interpretation Comments Potassium Lvl (test code = Potassium 4.4 3.5-5.1 Lvl) [facility]2020-02-20 11:51:00 Test Item Value Reference Range Interpretation Comments Chloride Lvl (test code = Chloride Lvl) 103 95-109 [facility]2020-02-20 11:51:00 Test Item Value Reference Range Interpretation Comments CO2 (test code = CO2) 28 24-32 [facility]2020-02-20 11:51:00 Test Item Value Reference Range Interpretation Comments Calcium Lvl (test code = Calcium Lvl) 9.2 8.5-10.5 [facility]2020-02-20 11:51:00 Test Item Value Reference Range Interpretation Comments AGAP (test code = AGAP) 8.4 10.0-20.0 [facility]2020-02-20 11:51:00 Test Item Value Reference Range Interpretation Comments eGFR (test code = eGFR) 81 [facility]2020-02-20 11:51:00 Test Item Value Reference Range Interpretation Comments Magnesium Lvl (test code = Magnesium 1.7 1.8-2.4 Lvl) [facility]2020-02-20 11:51:00 Test Item Value Reference Range Interpretation Comments Phosphorus (test code = Phosphorus) 3.7 2.5-4.5 [place] [id number] 11:51:00 Test Item Value Reference Range Interpretation Comments Glucose Lvl (test code = Glucose Lvl) 91 70-99 [facility]2020-02-20 11:51:00 Test Item Value Reference Range Interpretation Comments BUN (test code = BUN) 14 02-24 [facility]2020-02-20 11:51:00 Test Item Value Reference Range Interpretation Comments Creatinine Lvl (test code = Creatinine 0.68 0.50-1.40 Lvl) [facility]2020-02-20 11:51:00 Test Item Value Reference Range Interpretation Comments Sodium Lvl (test code = Sodium Lvl) 135 135-145 [facility]2020-02-20 11:51:00 Test Item Value Reference Range Interpretation Comments Potassium Lvl (test code = Potassium 4.4 3.5-5.1 Lvl) [facility]2020-02-20 11:51:00 Test Item Value Reference Range Interpretation Comments Chloride Lvl (test code = Chloride Lvl) 103 95-109 [facility]2020-02-20 11:51:00 Test Item Value Reference Range Interpretation Comments CO2 (test code = CO2) 28 24-32 [facility]2020-02-20 11:51:00 Test Item Value Reference Range Interpretation Comments Calcium Lvl (test code = Calcium Lvl) 9.2 8.5-10.5 [facility]2020-02-20 11:51:00 Test Item Value Reference Range Interpretation Comments AGAP (test code = AGAP) 8.4 10.0-20.0 [facility]2020-02-20 11:51:00 Test Item Value Reference Range Interpretation Comments eGFR (test code = eGFR) 81 [facility]2020-02-20 11:51:00 Test Item Value Reference Range Interpretation Comments Magnesium Lvl (test code = Magnesium 1.7 1.8-2.4 Lvl) [facility]2020-02-20 11:51:00 Test Item Value Reference Range Interpretation Comments Glucose Lvl (test code = Glucose Lvl) 91 70-99 [facility]2020-02-20 11:51:00 Test Item Value Reference Range Interpretation Comments Phosphorus (test code = Phosphorus) 3.7 2.5-4.5 [facility]2020-02-20 11:51:00 Test Item Value Reference Range Interpretation Comments BUN (test code = BUN) 14 -22 [facility]2020-02-20 11:51:00 Test Item Value Reference Range Interpretation Comments Creatinine Lvl (test code = Creatinine 0.68 0.50-1.40 Lvl) [facility]2020-02-20 11:51:00 Test Item Value Reference Range Interpretation Comments Sodium Lvl (test code = Sodium Lvl) 135 135-145 [facility]2020-02-20 11:51:00 Test Item Value Reference Range Interpretation Comments Potassium Lvl (test code = Potassium 4.4 3.5-5.1 Lvl) [facility]2020-02-20 11:51:00 Test Item Value Reference Range Interpretation Comments Chloride Lvl (test code = Chloride Lvl) 103 95-109 [facility]2020-02-20 11:51:00 Test Item Value Reference Range Interpretation Comments CO2 (test code = CO2) 28 24-32 [facility]2020-02-20 11:51:00 Test Item Value Reference Range Interpretation Comments Calcium Lvl (test code = Calcium Lvl) 9.2 8.5-10.5 [facility]2020-02-20 11:51:00 Test Item Value Reference Range Interpretation Comments AGAP (test code = AGAP) 8.4 10.0-20.0 [facility]2020-02-20 11:51:00 Test Item Value Reference Range Interpretation Comments eGFR (test code = eGFR) 81 [facility]2020-02-20 11:51:00 Test Item Value Reference Range Interpretation Comments Magnesium Lvl (test code = Magnesium 1.7 1.8-2.4 Lvl) [facility]2020-02-20 11:51:00 Test Item Value Reference Range Interpretation Comments Glucose Lvl (test code = Glucose Lvl) [facility]2020-02-20 11:51:00 Test Item Value Reference Range Interpretation Comments Phosphorus (test code = Phosphorus) 3.7 2.5-4.5 [facility]2020-02-20 11:51:00 Test Item Value Reference Range Interpretation Comments Glucose Lvl (test code = Glucose Lvl) 91 [facility]2020-02-20 11:51:00 Test Item Value Reference Range Interpretation Comments BUN (test code = BUN) 14 - [facility]2020-02-20 11:51:00 Test Item Value Reference Range Interpretation Comments Creatinine Lvl (test code = Creatinine 0.68 0.50-1.40 Lvl) [facility]2020-02-20 11:51:00 Test Item Value Reference Range Interpretation Comments Sodium Lvl (test code = Sodium Lvl) 135 135-145 [facility]2020-02-20 11:51:00 Test Item Value Reference Range Interpretation Comments Potassium Lvl (test code = Potassium 4.4 3.5-5.1 Lvl) [facility]2020-02-20 11:51:00 Test Item Value Reference Range Interpretation Comments BUN (test code = BUN) 14 7-22 [facility]2020-02-20 11:51:00 Test Item Value Reference Range Interpretation Comments Chloride Lvl (test code = Chloride Lvl) 103 95-109 [place] [id number] 11:51:00 Test Item Value Reference Range Interpretation Comments CO2 (test code = CO2) 28 24-32 [facility]2020-02-20 11:51:00 Test Item Value Reference Range Interpretation Comments Calcium Lvl (test code = Calcium Lvl) 9.2 8.5-10.5 [facility] [facility] 11:51:00 Test Item Value Reference Range Interpretation Comments AGAP (test code = AGAP) 8.4 10.0-20.0 [facility]2020-02-20 11:51:00 Test Item Value Reference Range Interpretation Comments eGFR (test code = eGFR) 81 [facility]2020-02-20 11:51:00 Test Item Value Reference Range Interpretation Comments Creatinine Lvl (test code = Creatinine 0.68 0.50-1.40 Lvl) [facility]2020-02-20 11:51:00 Test Item Value Reference Range Interpretation Comments Magnesium Lvl (test code = Magnesium 1.7 1.8-2.4 Lvl) [facility]2020-02-20 11:51:00 Test Item Value Reference Range Interpretation Comments Phosphorus (test code = Phosphorus) 3.7 2.5-4.5 [place] [id number] 11:51:00 Test Item Value Reference Range Interpretation Comments Sodium Lvl (test code = Sodium Lvl) 135 135-145 [place] [id number] 11:51:00 Test Item Value Reference Range Interpretation Comments Potassium Lvl (test code = Potassium 4.4 3.5-5.1 Lvl) [facility]2020-02-20 11:51:00 Test Item Value Reference Range Interpretation Comments Chloride Lvl (test code = Chloride Lvl) 103 95-109 [place] [id number] 11:51:00 Test Item Value Reference Range Interpretation Comments CO2 (test code = CO2) 28 24-32 [place] [id number] 11:51:00 Test Item Value Reference Range Interpretation Comments Calcium Lvl (test code = Calcium Lvl) 9.2 8.5-10.5 [place] 683570-02-20 11:51:00 Test Item Value Reference Range Interpretation Comments AGAP (test code = AGAP) 8.4 10.0-20.0 [place] 683570-02-20 11:51:00 Test Item Value Reference Range Interpretation Comments eGFR (test code = eGFR) 81 [place] 683570-02-20 11:51:00 Test Item Value Reference Range Interpretation Comments Magnesium Lvl (test code = Magnesium 1.7 1.8-2.4 Lvl) [facility]2020-02-20 11:51:00 Test Item Value Reference Range Interpretation Comments Phosphorus (test code = Phosphorus) 3.7 2.5-4.5 [place] 683570-02-20 11:51:00 Test Item Value Reference Range Interpretation Comments Glucose Lvl (test code = Glucose Lvl) 91 70-99 [place] 683570-02-20 11:51:00 Test Item Value Reference Range Interpretation Comments BUN (test code = BUN) 14 7-22 [place] 683570-02-20 11:51:00 Test Item Value Reference Range Interpretation Comments Creatinine Lvl (test code = Creatinine 0.68 0.50-1.40 Lvl) [place] 683570-02-20 11:51:00 Test Item Value Reference Range Interpretation Comments Sodium Lvl (test code = Sodium Lvl) 135 135-145 [place] 683570-02-20 11:51:00 Test Item Value Reference Range Interpretation Comments Potassium Lvl (test code = Potassium 4.4 3.5-5.1 Lvl) [facility]2020-02-20 11:51:00 Test Item Value Reference Range Interpretation Comments Chloride Lvl (test code = Chloride Lvl) 103 95-109 [facility]2020-02-20 11:51:00 Test Item Value Reference Range Interpretation Comments CO2 (test code = CO2) 28 24-32 [facility]2020-02-20 11:51:00 Test Item Value Reference Range Interpretation Comments Calcium Lvl (test code = Calcium Lvl) 9.2 8.5-10.5 [facility]2020-02-20 11:51:00 Test Item Value Reference Range Interpretation Comments AGAP (test code = AGAP) 8.4 10.0-20.0 [facility]2020-02-20 11:51:00 Test Item Value Reference Range Interpretation Comments eGFR (test code = eGFR) 81 [facility]2020-02-20 11:51:00 Test Item Value Reference Range Interpretation Comments Magnesium Lvl (test code = Magnesium 1.7 1.8-2.4 Lvl) [facility]2020-02-20 11:51:00 Test Item Value Reference Range Interpretation Comments Phosphorus (test code = Phosphorus) 3.7 2.5-4.5 [facility]2020-02-20 11:51:00 Test Item Value Reference Range Interpretation Comments Glucose Lvl (test code = Glucose Lvl) 91 70-99 [facility]2020-02-20 11:51:00 Test Item Value Reference Range Interpretation Comments BUN (test code = BUN) 14 7-22 [facility]2020-02-20 11:51:00 Test Item Value Reference Range Interpretation Comments Creatinine Lvl (test code = Creatinine 0.68 0.50-1.40 Lvl) [facility]2020-02-20 11:51:00 Test Item Value Reference Range Interpretation Comments Sodium Lvl (test code = Sodium Lvl) 135 135-145 [facility]2020-02-20 11:51:00 Test Item Value Reference Range Interpretation Comments Potassium Lvl (test code = Potassium 4.4 3.5-5.1 Lvl) [facility]2020-02-20 11:51:00 Test Item Value Reference Range Interpretation Comments Chloride Lvl (test code = Chloride Lvl) 103 95-109 [facility]2020-02-20 11:51:00 Test Item Value Reference Range Interpretation Comments CO2 (test code = CO2) 28 24-32 [facility]2020-02-20 11:51:00 Test Item Value Reference Range Interpretation Comments Calcium Lvl (test code = Calcium Lvl) 9.2 8.5-10.5 [facility]2020-02-20 11:51:00 Test Item Value Reference Range Interpretation Comments AGAP (test code = AGAP) 8.4 10.0-20.0 [facility]2020-02-20 11:51:00 Test Item Value Reference Range Interpretation Comments eGFR (test code = eGFR) 81 [facility]2020-02-20 11:51:00 Test Item Value Reference Range Interpretation Comments Magnesium Lvl (test code = Magnesium 1.7 1.8-2.4 Lvl) [facility]2020-02-20 11:51:00 Test Item Value Reference Range Interpretation Comments Phosphorus (test code = Phosphorus) 3.7 2.5-4.5 [facility]2020-02-16 10:10:00 Test Item Value Reference Range Interpretation Comments Phosphorus (test code = Phosphorus) 2.1 2.5-4.5 [facility]2020-02-16 10:10:00 Test Item Value Reference Range Interpretation Comments Glucose Lvl (test code = Glucose Lvl) 100 70-99 [facility]2020-02-16 10:10:00 Test Item Value Reference Range Interpretation Comments BUN (test code = BUN) 12 7-22 [facility]2020-02-16 10:10:00 Test Item Value Reference Range Interpretation Comments Creatinine Lvl (test code = Creatinine 0.58 0.50-1.40 Lvl) [facility]2020-02-16 10:10:00 Test Item Value Reference Range Interpretation Comments Sodium Lvl (test code = Sodium Lvl) 140 135-145 [facility]2020-02-16 10:10:00 Test Item Value Reference Range Interpretation Comments Potassium Lvl (test code = Potassium 3.4 3.5-5.1 Lvl) [facility]2020-02-16 10:10:00 Test Item Value Reference Range Interpretation Comments Chloride Lvl (test code = Chloride Lvl) 107 95-109 [place] 683570-02-16 10:10:00 Test Item Value Reference Range Interpretation Comments CO2 (test code = CO2) 27 24-32 [place] 683570-02-16 10:10:00 Test Item Value Reference Range Interpretation Comments Calcium Lvl (test code = Calcium Lvl) 8.7 8.5-10.5 [place] 683570-02-16 10:10:00 Test Item Value Reference Range Interpretation Comments AGAP (test code = AGAP) 9.4 10.0-20.0 [place] 683570-02-16 10:10:00 Test Item Value Reference Range Interpretation Comments eGFR (test code = eGFR) 85 [facility]2020-02-16 10:10:00 Test Item Value Reference Range Interpretation Comments Magnesium Lvl (test code = Magnesium 1.8 1.8-2.4 Lvl) [facility] 10:10:00 Test Item Value Reference Range Interpretation Comments Segs (test code = Segs) 70.6 45.0-75.0 [place] 237700-02-16 10:10:00 Test Item Value Reference Range Interpretation Comments Lymphocytes (test code = Lymphocytes) 18.4 20.0-40.0 [place] 237700-02-16 10:10:00 Test Item Value Reference Range Interpretation Comments Monocytes (test code = Monocytes) 7.3 2.0-12.0 [place] 237700-02-16 10:10:00 Test Item Value Reference Range Interpretation Comments Eosinophils (test code = 3.1 See_Comment [A utomated message] The Eosinophils) system which ge nerated this result tra nsmitted reference range : <=4.0. The reference r natasha was not used to int erpret this result as normal/abnormal . [place] 237700-02-16 10:10:00 Test Item Value Reference Range Interpretation Comments Basophils (test code = 0.6 See_Comment [Aut omated message] The Basophils) system which ge nerated this result tra nsmitted reference range : <=1.0. The reference r natasha was not used to int erpret this result as normal/abnormal . [place] 237700-02-16 10:10:00 Test Item Value Reference Range Interpretation Comments Neutrophils # (test code = Neutrophils 5.8 1.5-8.1 #) [facility]ocq[facility]LSWRJYRAC8336-60-48 10:10:00 Test Item Value Reference Range Interpretation Comments Lymphocytes # (test code = Lymphocytes 1.5 1.0-5.5 #) [facility]RcllzdtNMIBLCPFJP2347-93-80 10:10:00 Test Item Value Reference Range Interpretation Comments Monocytes # (test code 0.6 See_Comment [Aut omated message] The = Monocytes #) system which generated this result tra nsmitted reference range : <=0.8. The reference r natasha was not used to int erpret this result as normal/abnormal . [facility]MmdcjwjOOMDYYBKCJ2886-40-45 10:10:00 Test Item Value Reference Range Interpretation Comments Eosinophils # (test code 0.3 See_Comment [A utomated message] The = Eosinophils #) system whic h generated this result tra nsmitted reference range : <=0.5. The reference r natasha was not used to int erpret this result as normal/abnormal . [facility] HospitalLpzqdioFMIHHWGSZU2576-48-25 10:10:00 Test Item Value Reference Range Interpretation Comments WBC (test code = WBC) 8.2 3.7-10.4 [facility] HospitalZauvwujUQGYUBQMDZ6826-32-46 10:10:00 Test Item Value Reference Range Interpretation Comments RBC (test code = RBC) 3.65 4.20-5.40 [place] 237700-02-16 10:10:00 Test Item Value Reference Range Interpretation Comments Hgb (test code = Hgb) 12.1 12.0-16.0 [facility] HospitalTzkoscrWEIMQARMIO4878-51-37 10:10:00 Test Item Value Reference Range Interpretation Comments Hct (test code = Hct) 35.9 36.0-48.0 [place] 237700-02-16 10:10:00 Test Item Value Reference Range Interpretation Comments MCV (test code = MCV) 98.4 80.0-98.0 [facility] HospitalQfjxayuZQRGOLFMGY2091-15-72 10:10:00 Test Item Value Reference Range Interpretation Comments MCH (test code = MCH) 33.1 pg 27.0-31.0 [facility] HospitalXubpzgpUZSLWTNVBE4281-18-42 10:10:00 Test Item Value Reference Range Interpretation Comments MCHC (test code = MCHC) 33.7 32.0-36.0 [facility] HospitalUyegyelZHQIECWVFX8658-07-97 10:10:00 Test Item Value Reference Range Interpretation Comments RDW (test code = RDW) 12.9 11.5-14.5 [facility] HospitalYfooqsxPLEMXOBLFC9917-82-63 10:10:00 Test Item Value Reference Range Interpretation Comments Platelet (test code = Platelet) 217 133-450 [facility] HospitalGlyuuelPNPTYYDLFL2592-95-12 10:10:00 Test Item Value Reference Range Interpretation Comments MPV (test code = MPV) 9.3 7.4-10.4 [facility]99[facility] 10:10:00 Test Item Value Reference Range Interpretation Comments Ca Ion WB (test code = Ca Ion WB) 1.20 1.05-1.25 [facility]2020-02-16 10:10:00 Test Item Value Reference Range Interpretation Comments Ca Norm WB (test code = Ca Norm WB) 1.20 1.05-1.25 [facility]2020-02-16 10:10:00 Test Item Value Reference Range Interpretation Comments Phosphorus (test code = Phosphorus) 2.1 2.5-4.5 [facility]2020-02-16 10:10:00 Test Item Value Reference Range Interpretation Comments Glucose Lvl (test code = Glucose Lvl) 100 70-99 [facility]2020-02-16 10:10:00 Test Item Value Reference Range Interpretation Comments BUN (test code = BUN) 12 7-22 [facility]2020-02-16 10:10:00 Test Item Value Reference Range Interpretation Comments Creatinine Lvl (test code = Creatinine 0.58 0.50-1.40 Lvl) [facility]2020-02-16 10:10:00 Test Item Value Reference Range Interpretation Comments Sodium Lvl (test code = Sodium Lvl) 140 135-145 [facility]2020-02-16 10:10:00 Test Item Value Reference Range Interpretation Comments Potassium Lvl (test code = Potassium 3.4 3.5-5.1 Lvl) [facility]2020-02-16 10:10:00 Test Item Value Reference Range Interpretation Comments Chloride Lvl (test code = Chloride Lvl) 107 95-109 [place] 683570-02-16 10:10:00 Test Item Value Reference Range Interpretation Comments CO2 (test code = CO2) 27 24-32 [place] 683570-02-16 10:10:00 Test Item Value Reference Range Interpretation Comments Calcium Lvl (test code = Calcium Lvl) 8.7 8.5-10.5 [place] 683570-02-16 10:10:00 Test Item Value Reference Range Interpretation Comments AGAP (test code = AGAP) 9.4 10.0-20.0 [place] 683570-02-16 10:10:00 Test Item Value Reference Range Interpretation Comments eGFR (test code = eGFR) 85 [facility]2020-02-16 10:10:00 Test Item Value Reference Range Interpretation Comments Magnesium Lvl (test code = Magnesium 1.8 1.8-2.4 Lvl) [facility] HospitalOcspuorJIQTVYBQWJ8817-64-10 10:10:00 Test Item Value Reference Range Interpretation Comments Segs (test code = Segs) 70.6 45.0-75.0 [place] 237700-02-16 10:10:00 Test Item Value Reference Range Interpretation Comments Lymphocytes (test code = Lymphocytes) 18.4 20.0-40.0 [place] 237700-02-16 10:10:00 Test Item Value Reference Range Interpretation Comments Monocytes (test code = Monocytes) 7.3 2.0-12.0 [place] 237700-02-16 10:10:00 Test Item Value Reference Range Interpretation Comments Eosinophils (test code = 3.1 See_Comment [A utomated message] The Eosinophils) system which ge nerated this result tra nsmitted reference range : <=4.0. The reference r natasha was not used to int erpret this result as normal/abnormal . [place] 237700-02-16 10:10:00 Test Item Value Reference Range Interpretation Comments Basophils (test code = 0.6 See_Comment [Aut omated message] The Basophils) system which ge nerated this result tra nsmitted reference range : <=1.0. The reference r natasha was not used to int erpret this result as normal/abnormal . [place] 237700-02-16 10:10:00 Test Item Value Reference Range Interpretation Comments Neutrophils # (test code = Neutrophils 5.8 1.5-8.1 #) [facility] HospitalJyvgthrOSNXCURBYO8907-10-25 10:10:00 Test Item Value Reference Range Interpretation Comments Lymphocytes # (test code = Lymphocytes 1.5 1.0-5.5 #) [facility] HospitalEhytypuHQRXTZDHUK2596-94-87 10:10:00 Test Item Value Reference Range Interpretation Comments Monocytes # (test code 0.6 See_Comment [Aut omated message] The = Monocytes #) system which generated this result tra nsmitted reference range : <=0.8. The reference r natasha was not used to int erpret this result as normal/abnormal . [facility] HospitalWdqhlwyNJIDCQFTUW2767-99-51 10:10:00 Test Item Value Reference Range Interpretation Comments Eosinophils # (test code 0.3 See_Comment [A utomated message] The = Eosinophils #) system whic h generated this result tra nsmitted reference range : <=0.5. The reference r natasha was not used to int erpret this result as normal/abnormal . [facility] HospitalTvivkplJCWQGIJAKJ3215-06-61 10:10:00 Test Item Value Reference Range Interpretation Comments WBC (test code = WBC) 8.2 3.7-10.4 [facility] HospitalJlilyltWIFVMHCXIG5778-26-73 10:10:00 Test Item Value Reference Range Interpretation Comments RBC (test code = RBC) 3.65 4.20-5.40 [place] 237700-02-16 10:10:00 Test Item Value Reference Range Interpretation Comments Hgb (test code = Hgb) 12.1 12.0-16.0 [facility] HospitalRdshzirONLNZIWCUN8652-32-23 10:10:00 Test Item Value Reference Range Interpretation Comments Hct (test code = Hct) 35.9 36.0-48.0 [place] 237700-02-16 10:10:00 Test Item Value Reference Range Interpretation Comments MCV (test code = MCV) 98.4 80.0-98.0 [facility] HospitalHzpnoezSJNFDIPKLA1620-44-56 10:10:00 Test Item Value Reference Range Interpretation Comments MCH (test code = MCH) 33.1 pg 27.0-31.0 [facility] HospitalYnqievwUYLNKJKOPT8258-98-27 10:10:00 Test Item Value Reference Range Interpretation Comments MCHC (test code = MCHC) 33.7 32.0-36.0 [facility] HospitalJsqduvbFPGTGZEZHU1960-33-68 10:10:00 Test Item Value Reference Range Interpretation Comments RDW (test code = RDW) 12.9 11.5-14.5 [facility] HospitalZdchpozQAMYFHUTRS1506-84-18 10:10:00 Test Item Value Reference Range Interpretation Comments Platelet (test code = Platelet) 217 133-450 [facility] HospitalNliupxvJSWETNJDPM5891-88-97 10:10:00 Test Item Value Reference Range Interpretation Comments MPV (test code = MPV) 9.3 7.4-10.4 [facility] HIIAMGB9537-70-85 10:10:00 Test Item Value Reference Range Interpretation Comments Ca Ion WB (test code = Ca Ion WB) 1.20 1.05-1.25 [facility]2020-02-16 10:10:00 Test Item Value Reference Range Interpretation Comments Ca Norm WB (test code = Ca Norm WB) 1.20 1.05-1.25 [facility]2020-02-16 10:10:00 Test Item Value Reference Range Interpretation Comments Phosphorus (test code = Phosphorus) 2.1 2.5-4.5 [facility]2020-02-16 10:10:00 Test Item Value Reference Range Interpretation Comments Glucose Lvl (test code = Glucose Lvl) 100 70-99 [facility]2020-02-16 10:10:00 Test Item Value Reference Range Interpretation Comments BUN (test code = BUN) 12 7-22 [facility]2020-02-16 10:10:00 Test Item Value Reference Range Interpretation Comments Creatinine Lvl (test code = Creatinine 0.58 0.50-1.40 Lvl) [facility]2020-02-16 10:10:00 Test Item Value Reference Range Interpretation Comments Sodium Lvl (test code = Sodium Lvl) 140 135-145 [facility]2020-02-16 10:10:00 Test Item Value Reference Range Interpretation Comments Potassium Lvl (test code = Potassium 3.4 3.5-5.1 Lvl) [facility]2020-02-16 10:10:00 Test Item Value Reference Range Interpretation Comments Chloride Lvl (test code = Chloride Lvl) 107 95-109 [place] 683570-02-16 10:10:00 Test Item Value Reference Range Interpretation Comments CO2 (test code = CO2) 27 24-32 [place] 683570-02-16 10:10:00 Test Item Value Reference Range Interpretation Comments Calcium Lvl (test code = Calcium Lvl) 8.7 8.5-10.5 [place] 683570-02-16 10:10:00 Test Item Value Reference Range Interpretation Comments AGAP (test code = AGAP) 9.4 10.0-20.0 [place] 683570-02-16 10:10:00 Test Item Value Reference Range Interpretation Comments eGFR (test code = eGFR) 85 [facility]2020-02-16 10:10:00 Test Item Value Reference Range Interpretation Comments Magnesium Lvl (test code = Magnesium 1.8 1.8-2.4 Lvl) [facility] HospitalKjlscnbZZEEGUQIQQ3102-96-57 10:10:00 Test Item Value Reference Range Interpretation Comments Segs (test code = Segs) 70.6 45.0-75.0 [place] 237700-02-16 10:10:00 Test Item Value Reference Range Interpretation Comments Lymphocytes (test code = Lymphocytes) 18.4 20.0-40.0 [place] 237700-02-16 10:10:00 Test Item Value Reference Range Interpretation Comments Monocytes (test code = Monocytes) 7.3 2.0-12.0 [place] 237700-02-16 10:10:00 Test Item Value Reference Range Interpretation Comments Eosinophils (test code = 3.1 See_Comment [A utomated message] The Eosinophils) system which ge nerated this result tra nsmitted reference range : <=4.0. The reference r natasha was not used to int erpret this result as normal/abnormal . [place] 237700-02-16 10:10:00 Test Item Value Reference Range Interpretation Comments Basophils (test code = 0.6 See_Comment [Aut omated message] The Basophils) system which ge nerated this result tra nsmitted reference range : <=1.0. The reference r natasha was not used to int erpret this result as normal/abnormal . [place] 237700-02-16 10:10:00 Test Item Value Reference Range Interpretation Comments Neutrophils # (test code = Neutrophils 5.8 1.5-8.1 #) [facility] HospitalHtddjcrNQLWARCUTN8590-85-66 10:10:00 Test Item Value Reference Range Interpretation Comments Lymphocytes # (test code = Lymphocytes 1.5 1.0-5.5 #) [facility] HospitalGfshecdDNSVQFQUBU3207-51-96 10:10:00 Test Item Value Reference Range Interpretation Comments Monocytes # (test code 0.6 See_Comment [Aut omated message] The = Monocytes #) system which generated this result tra nsmitted reference range : <=0.8. The reference r natasha was not used to int erpret this result as normal/abnormal . [facility] HospitalQcqohvfUNCQHFOBKH6830-59-57 10:10:00 Test Item Value Reference Range Interpretation Comments Eosinophils # (test code 0.3 See_Comment [A utomated message] The = Eosinophils #) system whic h generated this result tra nsmitted reference range : <=0.5. The reference r natasha was not used to int erpret this result as normal/abnormal . [facility] HospitalJopdynrOTQDFQRPMW7391-42-97 10:10:00 Test Item Value Reference Range Interpretation Comments WBC (test code = WBC) 8.2 3.7-10.4 [facility] HospitalLrjllgpSOOLUGGRWU6443-79-10 10:10:00 Test Item Value Reference Range Interpretation Comments RBC (test code = RBC) 3.65 4.20-5.40 [place] 237700-02-16 10:10:00 Test Item Value Reference Range Interpretation Comments Hgb (test code = Hgb) 12.1 12.0-16.0 [facility] HospitalOqswcleZXIKHDRCRV2590-55-47 10:10:00 Test Item Value Reference Range Interpretation Comments Hct (test code = Hct) 35.9 36.0-48.0 [place] 237700-02-16 10:10:00 Test Item Value Reference Range Interpretation Comments MCV (test code = MCV) 98.4 80.0-98.0 [facility] HospitalUuwdimhRNIMVHHTOP5529-70-77 10:10:00 Test Item Value Reference Range Interpretation Comments MCH (test code = MCH) 33.1 pg 27.0-31.0 [facility] HospitalUhcgplcXLCEJDVBDS5374-53-86 10:10:00 Test Item Value Reference Range Interpretation Comments MCHC (test code = MCHC) 33.7 32.0-36.0 [facility] HospitalEcxzbleFQEZEKBYXO2848-45-76 10:10:00 Test Item Value Reference Range Interpretation Comments RDW (test code = RDW) 12.9 11.5-14.5 [facility] HospitalIcfrqeoCMWKGLVODK9192-10-51 10:10:00 Test Item Value Reference Range Interpretation Comments Platelet (test code = Platelet) 217 133-450 [facility] HospitalNdlshpcCCIZCINQHY2915-46-38 10:10:00 Test Item Value Reference Range Interpretation Comments MPV (test code = MPV) 9.3 7.4-10.4 [facility] SZUJRBK4359-56-62 10:10:00 Test Item Value Reference Range Interpretation Comments Ca Ion WB (test code = Ca Ion WB) 1.20 1.05-1.25 [facility]2020-02-16 10:10:00 Test Item Value Reference Range Interpretation Comments Ca Norm WB (test code = Ca Norm WB) 1.20 1.05-1.25 [facility]2020-02-16 10:10:00 Test Item Value Reference Range Interpretation Comments Phosphorus (test code = Phosphorus) 2.1 2.5-4.5 [facility]2020-02-16 10:10:00 Test Item Value Reference Range Interpretation Comments Glucose Lvl (test code = Glucose Lvl) 100 70-99 [facility]2020-02-16 10:10:00 Test Item Value Reference Range Interpretation Comments BUN (test code = BUN) 12 7-22 [facility]2020-02-16 10:10:00 Test Item Value Reference Range Interpretation Comments Creatinine Lvl (test code = Creatinine 0.58 0.50-1.40 Lvl) [facility]2020-02-16 10:10:00 Test Item Value Reference Range Interpretation Comments Sodium Lvl (test code = Sodium Lvl) 140 135-145 [facility]2020-02-16 10:10:00 Test Item Value Reference Range Interpretation Comments Potassium Lvl (test code = Potassium 3.4 3.5-5.1 Lvl) [facility]2020-02-16 10:10:00 Test Item Value Reference Range Interpretation Comments Chloride Lvl (test code = Chloride Lvl) 107 95-109 [place] [id number] 10:10:00 Test Item Value Reference Range Interpretation Comments CO2 (test code = CO2) 27 24-32 [place] 683570-02-16 10:10:00 Test Item Value Reference Range Interpretation Comments Calcium Lvl (test code = Calcium Lvl) 8.7 8.5-10.5 [place] [id number] 10:10:00 Test Item Value Reference Range Interpretation Comments AGAP (test code = AGAP) 9.4 10.0-20.0 [place] [id number] 10:10:00 Test Item Value Reference Range Interpretation Comments eGFR (test code = eGFR) 85 [facility]2020-02-16 10:10:00 Test Item Value Reference Range Interpretation Comments Magnesium Lvl (test code = Magnesium 1.8 1.8-2.4 Lvl) [facility]FW[facility]117[facility] 10:10:00 Test Item Value Reference Range Interpretation Comments Segs (test code = Segs) 70.6 45.0-75.0 [place] 237700-02-16 10:10:00 Test Item Value Reference Range Interpretation Comments Lymphocytes (test code = Lymphocytes) 18.4 20.0-40.0 [place] 237700-02-16 10:10:00 Test Item Value Reference Range Interpretation Comments Monocytes (test code = Monocytes) 7.3 2.0-12.0 [place] 237700-02-16 10:10:00 Test Item Value Reference Range Interpretation Comments Eosinophils (test code = 3.1 See_Comment [A utomated message] The Eosinophils) system which ge nerated this result tra nsmitted reference range : <=4.0. The reference r natasha was not used to int erpret this result as normal/abnormal . [place] 237700-02-16 10:10:00 Test Item Value Reference Range Interpretation Comments Basophils (test code = 0.6 See_Comment [Aut omated message] The Basophils) system which ge nerated this result tra nsmitted reference range : <=1.0. The reference r natasha was not used to int erpret this result as normal/abnormal . [place] 237700-02-16 10:10:00 Test Item Value Reference Range Interpretation Comments Neutrophils # (test code = Neutrophils 5.8 1.5-8.1 #) [facility]CbposccWKHSYOOSCO3290-48-92 10:10:00 Test Item Value Reference Range Interpretation Comments Lymphocytes # (test code = Lymphocytes 1.5 1.0-5.5 #) [facility] HospitalNuwaqbdNFAVHKPZQO7744-68-00 10:10:00 Test Item Value Reference Range Interpretation Comments Monocytes # (test code 0.6 See_Comment [Aut omated message] The = Monocytes #) system which generated this result tra nsmitted reference range : <=0.8. The reference r natasha was not used to int erpret this result as normal/abnormal . [facility] HospitalQrhybdbOFRWILJFJF3034-84-79 10:10:00 Test Item Value Reference Range Interpretation Comments Eosinophils # (test code 0.3 See_Comment [A utomated message] The = Eosinophils #) system whic h generated this result tra nsmitted reference range : <=0.5. The reference r natasha was not used to int erpret this result as normal/abnormal . [facility] HospitalDzfnkfpGJBXQGGUXP7426-77-73 10:10:00 Test Item Value Reference Range Interpretation Comments WBC (test code = WBC) 8.2 3.7-10.4 [facility] HospitalYavfireXYHSPULMLY1953-56-77 10:10:00 Test Item Value Reference Range Interpretation Comments RBC (test code = RBC) 3.65 4.20-5.40 [place] 237700-02-16 10:10:00 Test Item Value Reference Range Interpretation Comments Hgb (test code = Hgb) 12.1 12.0-16.0 [facility] HospitalKdnkxufMBNFDUGZXU3447-00-43 10:10:00 Test Item Value Reference Range Interpretation Comments Hct (test code = Hct) 35.9 36.0-48.0 [place] 237700-02-16 10:10:00 Test Item Value Reference Range Interpretation Comments MCV (test code = MCV) 98.4 80.0-98.0 [facility] HospitalKeaeuveQYOWYXLEEA2440-27-01 10:10:00 Test Item Value Reference Range Interpretation Comments MCH (test code = MCH) 33.1 pg 27.0-31.0 [facility] HospitalWjumkgbKPXLMXRBLX2373-06-05 10:10:00 Test Item Value Reference Range Interpretation Comments MCHC (test code = MCHC) 33.7 32.0-36.0 [facility] HospitalDnyybxbEKXZCXAZHV2726-38-57 10:10:00 Test Item Value Reference Range Interpretation Comments RDW (test code = RDW) 12.9 11.5-14.5 [facility] HospitalEwhtggyIPJNAXFWSP4463-10-44 10:10:00 Test Item Value Reference Range Interpretation Comments Platelet (test code = Platelet) 217 133-450 [facility] HospitalYejtodqDAEAMHUTFV9513-00-03 10:10:00 Test Item Value Reference Range Interpretation Comments MPV (test code = MPV) 9.3 7.4-10.4 [facility] BLFASIW9845[facility]60 10:10:00 Test Item Value Reference Range Interpretation Comments Ca Ion WB (test code = Ca Ion WB) 1.20 1.05-1.25 [facility]2020-02-16 10:10:00 Test Item Value Reference Range Interpretation Comments Ca Norm WB (test code = Ca Norm WB) 1.20 1.05-1.25 [facility]2020-02-16 10:10:00 Test Item Value Reference Range Interpretation Comments Phosphorus (test code = Phosphorus) 2.1 2.5-4.5 [facility]2020-02-16 10:10:00 Test Item Value Reference Range Interpretation Comments Glucose Lvl (test code = Glucose Lvl) 100 70-99 [facility]2020-02-16 10:10:00 Test Item Value Reference Range Interpretation Comments BUN (test code = BUN) 12 7-22 [facility]2020-02-16 10:10:00 Test Item Value Reference Range Interpretation Comments Creatinine Lvl (test code = Creatinine 0.58 0.50-1.40 Lvl) [facility]2020-02-16 10:10:00 Test Item Value Reference Range Interpretation Comments Sodium Lvl (test code = Sodium Lvl) 140 135-145 [facility]2020-02-16 10:10:00 Test Item Value Reference Range Interpretation Comments Potassium Lvl (test code = Potassium 3.4 3.5-5.1 Lvl) [facility]2020-02-16 10:10:00 Test Item Value Reference Range Interpretation Comments Chloride Lvl (test code = Chloride Lvl) 107 95-109 [place] 683570-02-16 10:10:00 Test Item Value Reference Range Interpretation Comments CO2 (test code = CO2) 27 24-32 [place] 683570-02-16 10:10:00 Test Item Value Reference Range Interpretation Comments Calcium Lvl (test code = Calcium Lvl) 8.7 8.5-10.5 [place] 683570-02-16 10:10:00 Test Item Value Reference Range Interpretation Comments AGAP (test code = AGAP) 9.4 10.0-20.0 [place] 683570-02-16 10:10:00 Test Item Value Reference Range Interpretation Comments eGFR (test code = eGFR) 85 [facility]2020-02-16 10:10:00 Test Item Value Reference Range Interpretation Comments Magnesium Lvl (test code = Magnesium 1.8 1.8-2.4 Lvl) [facility] HospitalDacczuhJSKCPWJXAG1165-18-26 10:10:00 Test Item Value Reference Range Interpretation Comments Segs (test code = Segs) 70.6 45.0-75.0 [place] 237700-02-16 10:10:00 Test Item Value Reference Range Interpretation Comments Lymphocytes (test code = Lymphocytes) 18.4 20.0-40.0 [place] 237700-02-16 10:10:00 Test Item Value Reference Range Interpretation Comments Monocytes (test code = Monocytes) 7.3 2.0-12.0 [place] 237700-02-16 10:10:00 Test Item Value Reference Range Interpretation Comments Eosinophils (test code = 3.1 See_Comment [A utomated message] The Eosinophils) system which ge nerated this result tra nsmitted reference range : <=4.0. The reference r natasha was not used to int erpret this result as normal/abnormal . [place] 237700-02-16 10:10:00 Test Item Value Reference Range Interpretation Comments Basophils (test code = 0.6 See_Comment [Aut omated message] The Basophils) system which ge nerated this result tra nsmitted reference range : <=1.0. The reference r natasha was not used to int erpret this result as normal/abnormal . [place] 237700-02-16 10:10:00 Test Item Value Reference Range Interpretation Comments Neutrophils # (test code = Neutrophils 5.8 1.5-8.1 #) [facility] HospitalXntxkxcRUZNZHURNB6443-68-26 10:10:00 Test Item Value Reference Range Interpretation Comments Lymphocytes # (test code = Lymphocytes 1.5 1.0-5.5 #) [facility] HospitalOirjglyQHOISMSNAW4255-88-90 10:10:00 Test Item Value Reference Range Interpretation Comments Monocytes # (test code 0.6 See_Comment [Aut omated message] The = Monocytes #) system which generated this result tra nsmitted reference range : <=0.8. The reference r natasha was not used to int erpret this result as normal/abnormal . [facility] HospitalLoehjubYCGTLJQSWN4381-12-14 10:10:00 Test Item Value Reference Range Interpretation Comments Eosinophils # (test code 0.3 See_Comment [A utomated message] The = Eosinophils #) system whic h generated this result tra nsmitted reference range : <=0.5. The reference r natasha was not used to int erpret this result as normal/abnormal . [facility] HospitalNopbyicVTXKUGMNBD3837-24-09 10:10:00 Test Item Value Reference Range Interpretation Comments WBC (test code = WBC) 8.2 3.7-10.4 [facility] HospitalDpxjdhqYNEDTQVINZ3496-97-24 10:10:00 Test Item Value Reference Range Interpretation Comments RBC (test code = RBC) 3.65 4.20-5.40 [place] 237700-02-16 10:10:00 Test Item Value Reference Range Interpretation Comments Hgb (test code = Hgb) 12.1 12.0-16.0 [facility] HospitalJbfyyjbVKDTDJGHGF7728-12-31 10:10:00 Test Item Value Reference Range Interpretation Comments Hct (test code = Hct) 35.9 36.0-48.0 [place] 237700-02-16 10:10:00 Test Item Value Reference Range Interpretation Comments MCV (test code = MCV) 98.4 80.0-98.0 [facility] HospitalBalglnpLPNLSJJWUA1154-68-07 10:10:00 Test Item Value Reference Range Interpretation Comments MCH (test code = MCH) 33.1 pg 27.0-31.0 [facility] HospitalLesrrkpOMEFMWATFH8837-45-24 10:10:00 Test Item Value Reference Range Interpretation Comments MCHC (test code = MCHC) 33.7 32.0-36.0 [facility] HospitalPvamptmLJCQEYOCCB5774-09-19 10:10:00 Test Item Value Reference Range Interpretation Comments RDW (test code = RDW) 12.9 11.5-14.5 [facility] HospitalIsgkaiuLNUATFSAVQ2796-72-60 10:10:00 Test Item Value Reference Range Interpretation Comments Platelet (test code = Platelet) 217 133-450 [facility] HospitalYisfczbISVMTOSUQN7970-14-07 10:10:00 Test Item Value Reference Range Interpretation Comments MPV (test code = MPV) 9.3 7.4-10.4 [facility] NIDXAFC6704-81-59 10:10:00 Test Item Value Reference Range Interpretation Comments Ca Ion WB (test code = Ca Ion WB) 1.20 1.05-1.25 [facility]2020-02-16 10:10:00 Test Item Value Reference Range Interpretation Comments Ca Norm WB (test code = Ca Norm WB) 1.20 1.05-1.25 [facility]2020-02-16 10:10:00 Test Item Value Reference Range Interpretation Comments Phosphorus (test code = Phosphorus) 2.1 2.5-4.5 [facility]2020-02-16 10:10:00 Test Item Value Reference Range Interpretation Comments Glucose Lvl (test code = Glucose Lvl) 100 70-99 [facility]2020-02-16 10:10:00 Test Item Value Reference Range Interpretation Comments BUN (test code = BUN) 12 7-22 [facility]2020-02-16 10:10:00 Test Item Value Reference Range Interpretation Comments Creatinine Lvl (test code = Creatinine 0.58 0.50-1.40 Lvl) [facility]2020-02-16 10:10:00 Test Item Value Reference Range Interpretation Comments Sodium Lvl (test code = Sodium Lvl) 140 135-145 [facility]2020-02-16 10:10:00 Test Item Value Reference Range Interpretation Comments Potassium Lvl (test code = Potassium 3.4 3.5-5.1 Lvl) [facility]2020-02-16 10:10:00 Test Item Value Reference Range Interpretation Comments Chloride Lvl (test code = Chloride Lvl) 107 95-109 [place] 683570-02-16 10:10:00 Test Item Value Reference Range Interpretation Comments CO2 (test code = CO2) 27 24-32 [place] 683570-02-16 10:10:00 Test Item Value Reference Range Interpretation Comments Calcium Lvl (test code = Calcium Lvl) 8.7 8.5-10.5 [place] 683570-02-16 10:10:00 Test Item Value Reference Range Interpretation Comments AGAP (test code = AGAP) 9.4 10.0-20.0 [place] 683570-02-16 10:10:00 Test Item Value Reference Range Interpretation Comments eGFR (test code = eGFR) 85 [facility]2020-02-16 10:10:00 Test Item Value Reference Range Interpretation Comments Magnesium Lvl (test code = Magnesium 1.8 1.8-2.4 Lvl) [facility] HospitalWjerwjmBOPHPVFIIM8255-96-62 10:10:00 Test Item Value Reference Range Interpretation Comments Segs (test code = Segs) 70.6 45.0-75.0 [place] 237700-02-16 10:10:00 Test Item Value Reference Range Interpretation Comments Lymphocytes (test code = Lymphocytes) 18.4 20.0-40.0 [place] 237700-02-16 10:10:00 Test Item Value Reference Range Interpretation Comments Monocytes (test code = Monocytes) 7.3 2.0-12.0 [place] 237700-02-16 10:10:00 Test Item Value Reference Range Interpretation Comments Eosinophils (test code = 3.1 See_Comment [A utomated message] The Eosinophils) system which ge nerated this result tra nsmitted reference range : <=4.0. The reference r natasha was not used to int erpret this result as normal/abnormal . [place] 237700-02-16 10:10:00 Test Item Value Reference Range Interpretation Comments Basophils (test code = 0.6 See_Comment [Aut omated message] The Basophils) system which ge nerated this result tra nsmitted reference range : <=1.0. The reference r natasha was not used to int erpret this result as normal/abnormal . [place] 237700-02-16 10:10:00 Test Item Value Reference Range Interpretation Comments Neutrophils # (test code = Neutrophils 5.8 1.5-8.1 #) [facility] HospitalFozozizNAYAFXEDVR4774-30-88 10:10:00 Test Item Value Reference Range Interpretation Comments Lymphocytes # (test code = Lymphocytes 1.5 1.0-5.5 #) [facility] HospitalCbgugphTXOUNDRGIJ3240-87-49 10:10:00 Test Item Value Reference Range Interpretation Comments Monocytes # (test code 0.6 See_Comment [Aut omated message] The = Monocytes #) system which generated this result tra nsmitted reference range : <=0.8. The reference r natasha was not used to int erpret this result as normal/abnormal . [facility] HospitalXokacytHOOZVMRYPB4797-27-05 10:10:00 Test Item Value Reference Range Interpretation Comments Eosinophils # (test code 0.3 See_Comment [A utomated message] The = Eosinophils #) system whic h generated this result tra nsmitted reference range : <=0.5. The reference r natasha was not used to int erpret this result as normal/abnormal . [facility] HospitalLsdibgnTMIJENMXGE1460-46-68 10:10:00 Test Item Value Reference Range Interpretation Comments WBC (test code = WBC) 8.2 3.7-10.4 [facility] HospitalMcyhedvJEBTMLWHOJ7799-90-94 10:10:00 Test Item Value Reference Range Interpretation Comments RBC (test code = RBC) 3.65 4.20-5.40 [place] 237700-02-16 10:10:00 Test Item Value Reference Range Interpretation Comments Hgb (test code = Hgb) 12.1 12.0-16.0 [facility] HospitalTfwieocRCCDSABGGP3364-11-96 10:10:00 Test Item Value Reference Range Interpretation Comments Hct (test code = Hct) 35.9 36.0-48.0 [place] 237700-02-16 10:10:00 Test Item Value Reference Range Interpretation Comments MCV (test code = MCV) 98.4 80.0-98.0 [facility] HospitalKuzhvttNSYYOGZXFP0797-74-49 10:10:00 Test Item Value Reference Range Interpretation Comments MCH (test code = MCH) 33.1 pg 27.0-31.0 [facility] HospitalYaaiwxvWCGPITOAYA1541-92-44 10:10:00 Test Item Value Reference Range Interpretation Comments MCHC (test code = MCHC) 33.7 32.0-36.0 [facility] HospitalNuaecjbQNHXOACWSZ6992-96-71 10:10:00 Test Item Value Reference Range Interpretation Comments RDW (test code = RDW) 12.9 11.5-14.5 [facility] HospitalPqmldtnTCHMLIBHUK5952-00-55 10:10:00 Test Item Value Reference Range Interpretation Comments Platelet (test code = Platelet) 217 133-450 [facility] HospitalKjaayazVUPDLXPFFC2793-92-04 10:10:00 Test Item Value Reference Range Interpretation Comments MPV (test code = MPV) 9.3 7.4-10.4 [facility] ZWXSWID0165-67-48 10:10:00 Test Item Value Reference Range Interpretation Comments Ca Ion WB (test code = Ca Ion WB) 1.20 1.05-1.25 [facility]2020-02-16 10:10:00 Test Item Value Reference Range Interpretation Comments Ca Norm WB (test code = Ca Norm WB) 1.20 1.05-1.25 [facility]2020-02-16 10:10:00 Test Item Value Reference Range Interpretation Comments Phosphorus (test code = Phosphorus) 2.1 2.5-4.5 [facility]2020-02-16 10:10:00 Test Item Value Reference Range Interpretation Comments Glucose Lvl (test code = Glucose Lvl) 100 70-99 [facility]2020-02-16 10:10:00 Test Item Value Reference Range Interpretation Comments BUN (test code = BUN) 12 7-22 [facility]2020-02-16 10:10:00 Test Item Value Reference Range Interpretation Comments Creatinine Lvl (test code = Creatinine 0.58 0.50-1.40 Lvl) [facility]2020-02-16 10:10:00 Test Item Value Reference Range Interpretation Comments Sodium Lvl (test code = Sodium Lvl) 140 135-145 [facility]2020-02-16 10:10:00 Test Item Value Reference Range Interpretation Comments Potassium Lvl (test code = Potassium 3.4 3.5-5.1 Lvl) [facility]2020-02-16 10:10:00 Test Item Value Reference Range Interpretation Comments Chloride Lvl (test code = Chloride Lvl) 107 95-109 [place] 683570-02-16 10:10:00 Test Item Value Reference Range Interpretation Comments CO2 (test code = CO2) 27 24-32 [place] 683570-02-16 10:10:00 Test Item Value Reference Range Interpretation Comments Calcium Lvl (test code = Calcium Lvl) 8.7 8.5-10.5 [place] 683570-02-16 10:10:00 Test Item Value Reference Range Interpretation Comments AGAP (test code = AGAP) 9.4 10.0-20.0 [place] 683570-02-16 10:10:00 Test Item Value Reference Range Interpretation Comments eGFR (test code = eGFR) 85 [facility]2020-02-16 10:10:00 Test Item Value Reference Range Interpretation Comments Magnesium Lvl (test code = Magnesium 1.8 1.8-2.4 Lvl) [facility] HospitalZgrgtomYQYJEKMIYG0765-12-71 10:10:00 Test Item Value Reference Range Interpretation Comments Segs (test code = Segs) 70.6 45.0-75.0 [place] 237700-02-16 10:10:00 Test Item Value Reference Range Interpretation Comments Lymphocytes (test code = Lymphocytes) 18.4 20.0-40.0 [place] 237700-02-16 10:10:00 Test Item Value Reference Range Interpretation Comments Monocytes (test code = Monocytes) 7.3 2.0-12.0 [place] 237700-02-16 10:10:00 Test Item Value Reference Range Interpretation Comments Eosinophils (test code = 3.1 See_Comment [A utomated message] The Eosinophils) system which ge nerated this result tra nsmitted reference range : <=4.0. The reference r natasha was not used to int erpret this result as normal/abnormal . [place] 237700-02-16 10:10:00 Test Item Value Reference Range Interpretation Comments Basophils (test code = 0.6 See_Comment [Aut omated message] The Basophils) system which ge nerated this result tra nsmitted reference range : <=1.0. The reference r natasha was not used to int erpret this result as normal/abnormal . [place] 237700-02-16 10:10:00 Test Item Value Reference Range Interpretation Comments Neutrophils # (test code = Neutrophils 5.8 1.5-8.1 #) [facility] HospitalZcblxufEIJXVRUIGO1270-04-28 10:10:00 Test Item Value Reference Range Interpretation Comments Lymphocytes # (test code = Lymphocytes 1.5 1.0-5.5 #) [facility] HospitalRnicqpcXBAGGKJEJL3709-21-28 10:10:00 Test Item Value Reference Range Interpretation Comments Monocytes # (test code 0.6 See_Comment [Aut omated message] The = Monocytes #) system which generated this result tra nsmitted reference range : <=0.8. The reference r natasha was not used to int erpret this result as normal/abnormal . [facility] HospitalCjtfolrQJNJRDWETT7122-55-06 10:10:00 Test Item Value Reference Range Interpretation Comments Eosinophils # (test code 0.3 See_Comment [A utomated message] The = Eosinophils #) system whic h generated this result tra nsmitted reference range : <=0.5. The reference r natasha was not used to int erpret this result as normal/abnormal . [facility] HospitalQgzhyioISDPXIOISU2345-36-06 10:10:00 Test Item Value Reference Range Interpretation Comments WBC (test code = WBC) 8.2 3.7-10.4 [facility] HospitalGlbytmiSKMGOFRDHE6192-36-84 10:10:00 Test Item Value Reference Range Interpretation Comments RBC (test code = RBC) 3.65 4.20-5.40 [place] 237700-02-16 10:10:00 Test Item Value Reference Range Interpretation Comments Hgb (test code = Hgb) 12.1 12.0-16.0 [facility] HospitalPijqgwbQSRFSPMSLG9477-67-16 10:10:00 Test Item Value Reference Range Interpretation Comments Hct (test code = Hct) 35.9 36.0-48.0 [place] 237700-02-16 10:10:00 Test Item Value Reference Range Interpretation Comments MCV (test code = MCV) 98.4 80.0-98.0 [facility] HospitalFnpxtnoFIPTJVVCWB7599-24-36 10:10:00 Test Item Value Reference Range Interpretation Comments MCH (test code = MCH) 33.1 pg 27.0-31.0 [facility] HospitalLtiybkoTWBHKMEWDF6491-27-86 10:10:00 Test Item Value Reference Range Interpretation Comments MCHC (test code = MCHC) 33.7 32.0-36.0 [facility] HospitalNulxunfBFAFQZLOEF2223-48-71 10:10:00 Test Item Value Reference Range Interpretation Comments RDW (test code = RDW) 12.9 11.5-14.5 [facility] HospitalYirzovdGXLFFEHOJC4599-39-15 10:10:00 Test Item Value Reference Range Interpretation Comments Platelet (test code = Platelet) 217 133-450 [facility] HospitalFicuejxYOYVAWAPQX7329-81-22 10:10:00 Test Item Value Reference Range Interpretation Comments MPV (test code = MPV) 9.3 7.4-10.4 [facility] WKNVCBJ2330-32-96 10:10:00 Test Item Value Reference Range Interpretation Comments Ca Ion WB (test code = Ca Ion WB) 1.20 1.05-1.25 [facility]2020-02-16 10:10:00 Test Item Value Reference Range Interpretation Comments Ca Norm WB (test code = Ca Norm WB) 1.20 1.05-1.25 [facility]2020-02-16 10:10:00 Test Item Value Reference Range Interpretation Comments Phosphorus (test code = Phosphorus) 2.1 2.5-4.5 [facility]2020-02-16 10:10:00 Test Item Value Reference Range Interpretation Comments Glucose Lvl (test code = Glucose Lvl) 100 70-99 [facility]2020-02-16 10:10:00 Test Item Value Reference Range Interpretation Comments BUN (test code = BUN) 12 7-22 [facility]2020-02-16 10:10:00 Test Item Value Reference Range Interpretation Comments Creatinine Lvl (test code = Creatinine 0.58 0.50-1.40 Lvl) [facility]2020-02-16 10:10:00 Test Item Value Reference Range Interpretation Comments Sodium Lvl (test code = Sodium Lvl) 140 135-145 [facility] [facility]00 Test Item Value Reference Range Interpretation Comments Potassium Lvl (test code = Potassium 3.4 3.5-5.1 Lvl) [facility]2020-02-16 10:10:00 Test Item Value Reference Range Interpretation Comments Chloride Lvl (test code = Chloride Lvl) 107 95-109 [place] [id number] 10:10:00 Test Item Value Reference Range Interpretation Comments CO2 (test code = CO2) 27 24-32 [place] [id number] 10:10:00 Test Item Value Reference Range Interpretation Comments Calcium Lvl (test code = Calcium Lvl) 8.7 8.5-10.5 [place] [id number] 10:10:00 Test Item Value Reference Range Interpretation Comments AGAP (test code = AGAP) 9.4 10.0-20.0 [place] [id number] 10:10:00 Test Item Value Reference Range Interpretation Comments eGFR (test code = eGFR) 85 [facility]2020-02-16 10:10:00 Test Item Value Reference Range Interpretation Comments Magnesium Lvl (test code = Magnesium 1.8 1.8-2.4 Lvl) [facility]:10:00 Test Item Value Reference Range Interpretation Comments Segs (test code = Segs) 70.6 45.0-75.0 [place] 237700-02-16 10:10:00 Test Item Value Reference Range Interpretation Comments Lymphocytes (test code = Lymphocytes) 18.4 20.0-40.0 [place] 237700-02-16 10:10:00 Test Item Value Reference Range Interpretation Comments Monocytes (test code = Monocytes) 7.3 2.0-12.0 [place] 237700-02-16 10:10:00 Test Item Value Reference Range Interpretation Comments Eosinophils (test code = 3.1 See_Comment [A utomated message] The Eosinophils) system which ge nerated this result tra nsmitted reference range : <=4.0. The reference r natasha was not used to int erpret this result as normal/abnormal . [place] 237700-02-16 10:10:00 Test Item Value Reference Range Interpretation Comments Basophils (test code = 0.6 See_Comment [Aut omated message] The Basophils) system which ge nerated this result tra nsmitted reference range : <=1.0. The reference r natasha was not used to int erpret this result as normal/abnormal . [place] 237700-02-16 10:10:00 Test Item Value Reference Range Interpretation Comments Neutrophils # (test code = Neutrophils 5.8 1.5-8.1 #) [facility]ZamplxoQLLCUCMYTA8841-69-93 10:10:00 Test Item Value Reference Range Interpretation Comments Lymphocytes # (test code = Lymphocytes 1.5 1.0-5.5 #) [facility]MfniakbVDFQFTPLEF2521-67-82 10:10:00 Test Item Value Reference Range Interpretation Comments Monocytes # (test code 0.6 See_Comment [Aut omated message] The = Monocytes #) system which generated this result tra nsmitted reference range : <=0.8. The reference r natasha was not used to int erpret this result as normal/abnormal . [facility] HospitalJufspnkBAWVEMFORY6675-69-51 10:10:00 Test Item Value Reference Range Interpretation Comments Eosinophils # (test code 0.3 See_Comment [A utomated message] The = Eosinophils #) system whic h generated this result tra nsmitted reference range : <=0.5. The reference r natasha was not used to int erpret this result as normal/abnormal . [facility] HospitalGgqrzfaVKOGWGLIPL2402-96-79 10:10:00 Test Item Value Reference Range Interpretation Comments WBC (test code = WBC) 8.2 3.7-10.4 [facility] HospitalUzaxmqyWWOXTALJUA4393-65-53 10:10:00 Test Item Value Reference Range Interpretation Comments RBC (test code = RBC) 3.65 4.20-5.40 [place] 237700-02-16 10:10:00 Test Item Value Reference Range Interpretation Comments Hgb (test code = Hgb) 12.1 12.0-16.0 [facility] HospitalKaxehnaNIJANXUKMF8972-73-63 10:10:00 Test Item Value Reference Range Interpretation Comments Hct (test code = Hct) 35.9 36.0-48.0 [place] 237700-02-16 10:10:00 Test Item Value Reference Range Interpretation Comments MCV (test code = MCV) 98.4 80.0-98.0 [facility] HospitalLuojqdnLCSMDVCAXR1701-51-29 10:10:00 Test Item Value Reference Range Interpretation Comments MCH (test code = MCH) 33.1 pg 27.0-31.0 [facility] HospitalKzqarlmJPBZHMOWAD2552-46-36 10:10:00 Test Item Value Reference Range Interpretation Comments MCHC (test code = MCHC) 33.7 32.0-36.0 [facility] HospitalKjeywiqMTEPZZUJXZ0384-02-12 10:10:00 Test Item Value Reference Range Interpretation Comments RDW (test code = RDW) 12.9 11.5-14.5 [facility] HospitalBoqcdfwPUAPEFIMHG8739-69-98 10:10:00 Test Item Value Reference Range Interpretation Comments Platelet (test code = Platelet) 217 133-450 [facility] HospitalUdimoyvXNOOYBSMJG1162-03-33 10:10:00 Test Item Value Reference Range Interpretation Comments MPV (test code = MPV) 9.3 7.4-10.4 [facility] SUVMVWL4968-25-12 10:10:00 Test Item Value Reference Range Interpretation Comments Ca Ion WB (test code = Ca Ion WB) 1.20 1.05-1.25 [facility]2020-02-16 10:10:00 Test Item Value Reference Range Interpretation Comments Ca Norm WB (test code = Ca Norm WB) 1.20 1.05-1.25 [facility]2020-02-15 10:20:00 Test Item Value Reference Range Interpretation Comments Glucose Lvl (test code = Glucose Lvl) 105 70-99 [facility]2020-02-15 10:20:00 Test Item Value Reference Range Interpretation Comments BUN (test code = BUN) 10 7-22 [facility]2020-02-15 10:20:00 Test Item Value Reference Range Interpretation Comments Creatinine Lvl (test code = Creatinine 0.52 0.50-1.40 Lvl) [facility]2020-02-15 10:20:00 Test Item Value Reference Range Interpretation Comments Sodium Lvl (test code = Sodium Lvl) 140 135-145 [facility]2020-02-15 10:20:00 Test Item Value Reference Range Interpretation Comments Potassium Lvl (test code = Potassium 3.3 3.5-5.1 Lvl) [facility]2020-02-15 10:20:00 Test Item Value Reference Range Interpretation Comments Chloride Lvl (test code = Chloride Lvl) 105 95-109 [facility]2020-02-15 10:20:00 Test Item Value Reference Range Interpretation Comments CO2 (test code = CO2) 29 24-32 [place] 683570-02-15 10:20:00 Test Item Value Reference Range Interpretation Comments Calcium Lvl (test code = Calcium Lvl) 9.1 8.5-10.5 [facility] CenterReduxioMISSION [facility]OS[facility] MCDOWELLREBWH7087-69-70 10:20:00 Test Item Value Reference Range Interpretation Comments AGAP (test code = AGAP) 9.3 10.0-20.0 [facility] CenterReduxioMISS[facility]OS[facility]ITAL [id number] 10:20:00 Test Item Value Reference Range Interpretation Comments eGFR (test code = eGFR) 88 [facility]2020-02-15 10:20:00 Test Item Value Reference Range Interpretation Comments Glucose Lvl (test code = Glucose Lvl) 105 70-99 [facility] CenterReduxioMISSION HOSPITAL MCDOWELLIBYCS7074-12-38 10:20:00 Test Item Value Reference Range Interpretation Comments BUN (test code = BUN) 10 7-22 [facility] CenterReduxioMISSION HOSPITAL MCDOWELLMIRRT2628-36-54 10:20:00 Test Item Value Reference Range Interpretation Comments Creatinine Lvl (test code = Creatinine 0.52 0.50-1.40 Lvl) [facility] CenterAtbrox [id number] 10:20:00 Test Item Value Reference Range Interpretation Comments Sodium Lvl (test code = Sodium Lvl) 140 135-145 [facility] CenterAtbrox [id number] 10:20:00 Test Item Value Reference Range Interpretation Comments Potassium Lvl (test code = Potassium 3.3 3.5-5.1 Lvl) [facility] CenterAtbrox [id number] 10:20:00 Test Item Value Reference Range Interpretation Comments Chloride Lvl (test code = Chloride Lvl) 105 95-109 [facility] CenterReduxioMISSION HOSPITAL MCDOWELLAWLFI6472-10-43 10:20:00 Test Item Value Reference Range Interpretation Comments CO2 (test code = CO2) 29 24-32 [facility] CenterReduxioMISSION HOSPITAL [id number] 10:20:00 Test Item Value Reference Range Interpretation Comments Calcium Lvl (test code = Calcium Lvl) 9.1 8.5-10.5 [facility] CenterReduxioMISSION HOSPITAL MCDOWELLPBCBX9858-25-52 10:20:00 Test Item Value Reference Range Interpretation Comments AGAP (test code = AGAP) 9.3 10.0-20.0 [facility] CenterAtbrox [id number] 10:20:00 Test Item Value Reference Range Interpretation Comments eGFR (test code = eGFR) 88 [facility]2020-02-15 10:20:00 Test Item Value Reference Range Interpretation Comments Glucose Lvl (test code = Glucose Lvl) 105 70-99 [facility]2020-02-15 10:20:00 Test Item Value Reference Range Interpretation Comments BUN (test code = BUN) 10 - [facility]2020-02-15 10:20:00 Test Item Value Reference Range Interpretation Comments Creatinine Lvl (test code = Creatinine 0.52 0.50-1.40 Lvl) [facility]2020-02-15 10:20:00 Test Item Value Reference Range Interpretation Comments Sodium Lvl (test code = Sodium Lvl) 140 135-145 [facility]2020-02-15 10:20:00 Test Item Value Reference Range Interpretation Comments Potassium Lvl (test code = Potassium 3.3 3.5-5.1 Lvl) [facility]2020-02-15 10:20:00 Test Item Value Reference Range Interpretation Comments Chloride Lvl (test code = Chloride Lvl) 105 95-109 [facility]2020-02-15 10:20:00 Test Item Value Reference Range Interpretation Comments CO2 (test code = CO2) 29 24-32 [facility]2020-02-15 10:20:00 Test Item Value Reference Range Interpretation Comments Calcium Lvl (test code = Calcium Lvl) 9.1 8.5-10.5 [facility]2020-02-15 10:20:00 Test Item Value Reference Range Interpretation Comments AGAP (test code = AGAP) 9.3 10.0-20.0 [facility]2020-02-15 10:20:00 Test Item Value Reference Range Interpretation Comments eGFR (test code = eGFR) 88 [facility]2020-02-15 10:20:00 Test Item Value Reference Range Interpretation Comments Glucose Lvl (test code = Glucose Lvl) 105 70-99 [facility]2020-02-15 10:20:00 Test Item Value Reference Range Interpretation Comments BUN (test code = BUN) 10 - [facility]2020-02-15 10:20:00 Test Item Value Reference Range Interpretation Comments Creatinine Lvl (test code = Creatinine 0.52 0.50-1.40 Lvl) [facility]2020-02-15 10:20:00 Test Item Value Reference Range Interpretation Comments Sodium Lvl (test code = Sodium Lvl) 140 135-145 [place] 683570-02-15 10:20:00 Test Item Value Reference Range Interpretation Comments Potassium Lvl (test code = Potassium 3.3 3.5-5.1 Lvl) [place] 683570-02-15 10:20:00 Test Item Value Reference Range Interpretation Comments Chloride Lvl (test code = Chloride Lvl) 105 95-109 [place] 683570-02-15 10:20:00 Test Item Value Reference Range Interpretation Comments CO2 (test code = CO2) 29 24-32 [facility]2020-02-15 10:20:00 Test Item Value Reference Range Interpretation Comments Calcium Lvl (test code = Calcium Lvl) 9.1 8.5-10.5 [facility]2020-02-15 10:20:00 Test Item Value Reference Range Interpretation Comments AGAP (test code = AGAP) 9.3 10.0-20.0 [facility]2020-02-15 10:20:00 Test Item Value Reference Range Interpretation Comments eGFR (test code = eGFR) 88 [facility]2020-02-15 10:20:00 Test Item Value Reference Range Interpretation Comments Glucose Lvl (test code = Glucose Lvl) 105 70-99 [facility]2020-02-15 10:20:00 Test Item Value Reference Range Interpretation Comments BUN (test code = BUN) 10 7-22 [facility]2020-02-15 10:20:00 Test Item Value Reference Range Interpretation Comments Creatinine Lvl (test code = Creatinine 0.52 0.50-1.40 Lvl) [facility]2020-02-15 10:20:00 Test Item Value Reference Range Interpretation Comments Sodium Lvl (test code = Sodium Lvl) 140 135-145 [place] 683570-02-15 10:20:00 Test Item Value Reference Range Interpretation Comments Potassium Lvl (test code = Potassium 3.3 3.5-5.1 Lvl) [facility]2020-02-15 10:20:00 Test Item Value Reference Range Interpretation Comments Chloride Lvl (test code = Chloride Lvl) 105 95-109 [facility]2020-02-15 10:20:00 Test Item Value Reference Range Interpretation Comments CO2 (test code = CO2) - [facility]2020-02-15 10:20:00 Test Item Value Reference Range Interpretation Comments Calcium Lvl (test code = Calcium Lvl) 9.1 8.5-10.5 [facility]2020-02-15 10:20:00 Test Item Value Reference Range Interpretation Comments AGAP (test code = AGAP) 9.3 10.0-20.0 [facility]2020-02-15 10:20:00 Test Item Value Reference Range Interpretation Comments eGFR (test code = eGFR) 88 [facility]2020-02-15 10:20:00 Test Item Value Reference Range Interpretation Comments Glucose Lvl (test code = Glucose Lvl) 105 70-99 [facility]2020-02-15 10:20:00 Test Item Value Reference Range Interpretation Comments BUN (test code = BUN) 10 - [facility]2020-02-15 10:20:00 Test Item Value Reference Range Interpretation Comments Creatinine Lvl (test code = Creatinine 0.52 0.50-1.40 Lvl) [facility]2020-02-15 10:20:00 Test Item Value Reference Range Interpretation Comments Sodium Lvl (test code = Sodium Lvl) 140 135-145 [facility]2020-02-15 10:20:00 Test Item Value Reference Range Interpretation Comments Potassium Lvl (test code = Potassium 3.3 3.5-5.1 Lvl) [facility]2020-02-15 10:20:00 Test Item Value Reference Range Interpretation Comments Chloride Lvl (test code = Chloride Lvl) 105 95-109 [facility]2020-02-15 10:20:00 Test Item Value Reference Range Interpretation Comments CO2 (test code = CO2) - [facility]2020-02-15 10:20:00 Test Item Value Reference Range Interpretation Comments Calcium Lvl (test code = Calcium Lvl) 9.1 8.5-10.5 [facility]2020-02-15 10:20:00 Test Item Value Reference Range Interpretation Comments AGAP (test code = AGAP) 9.3 10.0-20.0 [facility]2020-02-15 10:20:00 Test Item Value Reference Range Interpretation Comments eGFR (test code = eGFR) 88 [facility]2020-02-15 10:20:00 Test Item Value Reference Range Interpretation Comments Glucose Lvl (test code = Glucose Lvl) 105 70-99 [place] 683570-02-15 10:20:00 Test Item Value Reference Range Interpretation Comments BUN (test code = BUN) 10 7-22 [facility]2020-02-15 10:20:00 Test Item Value Reference Range Interpretation Comments Creatinine Lvl (test code = Creatinine 0.52 0.50-1.40 Lvl) [facility]2020-02-15 10:20:00 Test Item Value Reference Range Interpretation Comments Sodium Lvl (test code = Sodium Lvl) 140 135-145 [place] 683570-02-15 10:20:00 Test Item Value Reference Range Interpretation Comments Potassium Lvl (test code = Potassium 3.3 3.5-5.1 Lvl) [facility]2020-02-15 10:20:00 Test Item Value Reference Range Interpretation Comments Chloride Lvl (test code = Chloride Lvl) 105 95-109 [facility]2020-02-15 10:20:00 Test Item Value Reference Range Interpretation Comments CO2 (test code = CO2) 29 24-32 [facility]2020-02-15 10:20:00 Test Item Value Reference Range Interpretation Comments Calcium Lvl (test code = Calcium Lvl) 9.1 8.5-10.5 [facility]2020-02-15 10:20:00 Test Item Value Reference Range Interpretation Comments AGAP (test code = AGAP) 9.3 10.0-20.0 [place] 683570-02-15 10:20:00 Test Item Value Reference Range Interpretation Comments eGFR (test code = eGFR) 88 [facility]2020-02-15 10:20:00 Test Item Value Reference Range Interpretation Comments Glucose Lvl (test code = Glucose Lvl) 105 70-99 [place] 683570-02-15 10:20:00 Test Item Value Reference Range Interpretation Comments BUN (test code = BUN) 10 7-22 [facility]2020-02-15 10:20:00 Test Item Value Reference Range Interpretation Comments Creatinine Lvl (test code = Creatinine 0.52 0.50-1.40 Lvl) [facility]2020-02-15 10:20:00 Test Item Value Reference Range Interpretation Comments Sodium Lvl (test code = Sodium Lvl) 140 135-145 [place] 683570-02-15 10:20:00 Test Item Value Reference Range Interpretation Comments Potassium Lvl (test code = Potassium 3.3 3.5-5.1 Lvl) [place] 683570-02-15 10:20:00 Test Item Value Reference Range Interpretation Comments Chloride Lvl (test code = Chloride Lvl) 105 95-109 [place] 683570-02-15 10:20:00 Test Item Value Reference Range Interpretation Comments CO2 (test code = CO2) 29 24-32 [place] 683570-02-15 10:20:00 Test Item Value Reference Range Interpretation Comments Calcium Lvl (test code = Calcium Lvl) 9.1 8.5-10.5 [place] 683570-02-15 10:20:00 Test Item Value Reference Range Interpretation Comments AGAP (test code = AGAP) 9.3 10.0-20.0 [place] 683570-02-15 10:20:00 Test Item Value Reference Range Interpretation Comments eGFR (test code = eGFR) 88 [place] 683570-02-15 07:34:00 Test Item Value Reference Range Interpretation Comments Magnesium Lvl (test code = Magnesium 2.0 1.8-2.4 Lvl) [place] 237700-02-15 07:34:00 Test Item Value Reference Range Interpretation Comments Segs (test code = Segs) 71.2 45.0-75.0 [place] [address]-02-15 07:34:00 Test Item Value Reference Range Interpretation Comments Lymphocytes (test code = Lymphocytes) 19.2 20.0-40.0 [place] [address]-02-15 07:34:00 Test Item Value Reference Range Interpretation Comments Monocytes (test code = Monocytes) 7.6 2.0-12.0 [place] [address]-02-15 07:34:00 Test Item Value Reference Range Interpretation Comments Eosinophils (test code = 1.6 See_Comment [A utomated message] The Eosinophils) system which ge nerated this result tra nsmitted reference range : <=4.0. The reference r natasha was not used to int erpret this result as normal/abnormal . [place] [address]-02-15 07:34:00 Test Item Value Reference Range Interpretation Comments Basophils (test code = 0.4 See_Comment [Aut omated message] The Basophils) system which ge nerated this result tra nsmitted reference range : <=1.0. The reference r natasha was not used to int erpret this result as normal/abnormal . [place] 237700-02-15 07:34:00 Test Item Value Reference Range Interpretation Comments Neutrophils # (test code = Neutrophils 5.2 1.5-8.1 #) [place] [address]-02-15 07:34:00 Test Item Value Reference Range Interpretation Comments Lymphocytes # (test code = Lymphocytes 1.4 1.0-5.5 #) [place] [address]-02-15 07:34:00 Test Item Value Reference Range Interpretation Comments Monocytes # (test code 0.6 See_Comment [Aut omated message] The = Monocytes #) system which generated this result tra nsmitted reference range : <=0.8. The reference r natasha was not used to int erpret this result as normal/abnormal . [place] [address]-02-15 07:34:00 Test Item Value Reference Range Interpretation Comments Eosinophils # (test code 0.1 See_Comment [A utomated message] The = Eosinophils #) system whic h generated this result tra nsmitted reference range : <=0.5. The reference r natasha was not used to int erpret this result as normal/abnormal . [place] 237700-02-15 07:34:00 Test Item Value Reference Range Interpretation Comments WBC (test code = WBC) 7.4 3.7-10.4 [place] 237700-02-15 07:34:00 Test Item Value Reference Range Interpretation Comments RBC (test code = RBC) 3.73 4.20-5.40 [place] [address]-02-15 07:34:00 Test Item Value Reference Range Interpretation Comments Hgb (test code = Hgb) 12.4 12.0-16.0 [facility] CenterLbosmakXSSPSGQKKX3944-34-03 07:34:00 Test Item Value Reference Range Interpretation Comments Hct (test code = Hct) 36.3 36.0-48.0 [facility] CenterUjxqzvvALXNXALQLZ9901-06-93 07:34:00 Test Item Value Reference Range Interpretation Comments MCV (test code = MCV) 97.2 80.0-98.0 [facility] CenterTyczkgqWEDCWZKSCY3816-15-23 07:34:00 Test Item Value Reference Range Interpretation Comments MCH (test code = MCH) 33.4 pg 27.0-31.0 [facility] CenterIohsqjiAKQUNXRYYH2529-89-33 07:34:00 Test Item Value Reference Range Interpretation Comments MCHC (test code = MCHC) 34.3 32.0-36.0 [facility]XbaesxzKAAQDMLUAI7647-86-86 07:34:00 Test Item Value Reference Range Interpretation Comments RDW (test code = RDW) 13.6 11.5-14.5 [facility] CenterWhfgobwCBGZLZCLTU1392-66-80 07:34:00 Test Item Value Reference Range Interpretation Comments Platelet (test code = Platelet) 191 133-450 [facility] CentennialKbubldlSUNTFWJTPL1310-57-97 07:34:00 Test Item Value Reference Range Interpretation Comments MPV (test code = MPV) 10.1 7.4-10.4 [facility] CenterannPARATHYROID [id number] 07:34:00 Test Item Value Reference Range Interpretation Comments Ca Ion WB (test code = Ca Ion WB) 1.02 1.05-1.25 [facility] CenterannPARATHYROID NRJVOWH7189-11-08 07:34:00 Test Item Value Reference Range Interpretation Comments Ca Norm WB (test code = Ca Norm WB) 1.04 1.05-1.25 [facility] CenterannCHEM [id number] 07:34:00 Test Item Value Reference Range Interpretation Comments Magnesium Lvl (test code = Magnesium 2.0 1.8-2.4 Lvl) [facility] CentennialEeyvixmIXDEHVSRCC4168-84-72 07:34:00 Test Item Value Reference Range Interpretation Comments Segs (test code = Segs) 71.2 45.0-75.0 [facility] CentennialMlmvfeqAYNWDUSHQW4986-22-29 07:34:00 Test Item Value Reference Range Interpretation Comments Lymphocytes (test code = Lymphocytes) 19.2 20.0-40.0 [place] [address]-02-15 07:34:00 Test Item Value Reference Range Interpretation Comments Monocytes (test code = Monocytes) 7.6 2.0-12.0 [place] [address]-02-15 07:34:00 Test Item Value Reference Range Interpretation Comments Eosinophils (test code = 1.6 See_Comment [A utomated message] The Eosinophils) system which ge nerated this result tra nsmitted reference range : <=4.0. The reference r natasha was not used to int erpret this result as normal/abnormal . [place] [address]-02-15 07:34:00 Test Item Value Reference Range Interpretation Comments Basophils (test code = 0.4 See_Comment [Aut omated message] The Basophils) system which ge nerated this result tra nsmitted reference range : <=1.0. The reference r natasha was not used to int erpret this result as normal/abnormal . [place] 237700-02-15 07:34:00 Test Item Value Reference Range Interpretation Comments Neutrophils # (test code = Neutrophils 5.2 1.5-8.1 #) [place] [address]-02-15 07:34:00 Test Item Value Reference Range Interpretation Comments Lymphocytes # (test code = Lymphocytes 1.4 1.0-5.5 #) [place] [address]-02-15 07:34:00 Test Item Value Reference Range Interpretation Comments Monocytes # (test code 0.6 See_Comment [Aut omated message] The = Monocytes #) system which generated this result tra nsmitted reference range : <=0.8. The reference r natasha was not used to int erpret this result as normal/abnormal . [place] [address]-02-15 07:34:00 Test Item Value Reference Range Interpretation Comments Eosinophils # (test code 0.1 See_Comment [A utomated message] The = Eosinophils #) system whic h generated this result tra nsmitted reference range : <=0.5. The reference r natasha was not used to int erpret this result as normal/abnormal . [place] 237700-02-15 07:34:00 Test Item Value Reference Range Interpretation Comments WBC (test code = WBC) 7.4 3.7-10.4 [facility]UfsrybyEIQXNMQCEV7932-23-07 07:34:00 Test Item Value Reference Range Interpretation Comments RBC (test code = RBC) 3.73 4.20-5.40 [facility] CenterTbticeyCNFDMJTKQZ0599-12-26 07:34:00 Test Item Value Reference Range Interpretation Comments Hgb (test code = Hgb) 12.4 12.0-16.0 [facility] CenterXxrvrccOYBHZFGGXS7392-51-77 07:34:00 Test Item Value Reference Range Interpretation Comments Hct (test code = Hct) 36.3 36.0-48.0 [facility] CenterSkvxeqtXJPHTTNWWH8378-29-50 07:34:00 Test Item Value Reference Range Interpretation Comments MCV (test code = MCV) 97.2 80.0-98.0 [facility] CenterMlmjreaEFZHDDMSYH1395-11-31 07:34:00 Test Item Value Reference Range Interpretation Comments MCH (test code = MCH) 33.4 pg 27.0-31.0 [facility] CenterNqxpooiGURSHRZVMW0126-78-07 07:34:00 Test Item Value Reference Range Interpretation Comments MCHC (test code = MCHC) 34.3 32.0-36.0 [facility] CenterXtdxucjTXRRIEEFOF2657-23-41 07:34:00 Test Item Value Reference Range Interpretation Comments RDW (test code = RDW) 13.6 11.5-14.5 [facility] CenterKnuwuhtKVXGCZFIGO1870-15-08 07:34:00 Test Item Value Reference Range Interpretation Comments Platelet (test code = Platelet) 191 133-450 [facility] CenterJrueglqJPLULEKRPS7242-14-93 07:34:00 Test Item Value Reference Range Interpretation Comments MPV (test code = MPV) 10.1 7.4-10.4 [facility] CenterannPARATHYROID HUFEECY5363-21-42 07:34:00 Test Item Value Reference Range Interpretation Comments Ca Ion WB (test code = Ca Ion WB) 1.02 1.05-1.25 [facility] CenterannPARATHYROID VTGQFCC0451-37-80 07:34:00 Test Item Value Reference Range Interpretation Comments Ca Norm WB (test code = Ca Norm WB) 1.04 1.05-1.25 [facility] CenterannCHEM NAKVE7422-74-89 07:34:00 Test Item Value Reference Range Interpretation Comments Magnesium Lvl (test code = Magnesium 2.0 1.8-2.4 Lvl) [place] [address]-02-15 07:34:00 Test Item Value Reference Range Interpretation Comments Segs (test code = Segs) 71.2 45.0-75.0 [place] [address]-02-15 07:34:00 Test Item Value Reference Range Interpretation Comments Lymphocytes (test code = Lymphocytes) 19.2 20.0-40.0 [place] [address]-02-15 07:34:00 Test Item Value Reference Range Interpretation Comments Monocytes (test code = Monocytes) 7.6 2.0-12.0 [place] [address]-02-15 07:34:00 Test Item Value Reference Range Interpretation Comments Eosinophils (test code = 1.6 See_Comment [A utomated message] The Eosinophils) system which ge nerated this result tra nsmitted reference range : <=4.0. The reference r natasha was not used to int erpret this result as normal/abnormal . [place] [address]-02-15 07:34:00 Test Item Value Reference Range Interpretation Comments Basophils (test code = 0.4 See_Comment [Aut omated message] The Basophils) system which ge nerated this result tra nsmitted reference range : <=1.0. The reference r natasha was not used to int erpret this result as normal/abnormal . [place] [address]-02-15 07:34:00 Test Item Value Reference Range Interpretation Comments Neutrophils # (test code = Neutrophils 5.2 1.5-8.1 #) [place] [address]-02-15 07:34:00 Test Item Value Reference Range Interpretation Comments Lymphocytes # (test code = Lymphocytes 1.4 1.0-5.5 #) [place] [address]-02-15 07:34:00 Test Item Value Reference Range Interpretation Comments Monocytes # (test code 0.6 See_Comment [Aut omated message] The = Monocytes #) system which generated this result tra nsmitted reference range : <=0.8. The reference r natasha was not used to int erpret this result as normal/abnormal . [place] [address]-02-15 07:34:00 Test Item Value Reference Range Interpretation Comments Eosinophils # (test code 0.1 See_Comment [A utomated message] The = Eosinophils #) system whic h generated this result tra nsmitted reference range : <=0.5. The reference r natasha was not used to int erpret this result as normal/abnormal . [facility] HospitalEhdmbuaMNHTYXOYEQ5043-69-26 07:34:00 Test Item Value Reference Range Interpretation Comments WBC (test code = WBC) 7.4 3.7-10.4 [facility] HospitalVcqqxngZLANIRZIGP0276-43-86 07:34:00 Test Item Value Reference Range Interpretation Comments RBC (test code = RBC) 3.73 4.20-5.40 [place] 237700-02-15 07:34:00 Test Item Value Reference Range Interpretation Comments Hgb (test code = Hgb) 12.4 12.0-16.0 [facility] HospitalNdkzycyCKIBGSWYHO7149-79-09 07:34:00 Test Item Value Reference Range Interpretation Comments Hct (test code = Hct) 36.3 36.0-48.0 [facility] HospitalOeqpmmmFRZYXSHMNM9831-87-23 07:34:00 Test Item Value Reference Range Interpretation Comments MCV (test code = MCV) 97.2 80.0-98.0 [facility] HospitalXbdwtsxNGPEDJWFHG8380-62-49 07:34:00 Test Item Value Reference Range Interpretation Comments MCH (test code = MCH) 33.4 pg 27.0-31.0 [facility] HospitalCesorvrLGQOHNKMAC5111-86-85 07:34:00 Test Item Value Reference Range Interpretation Comments MCHC (test code = MCHC) 34.3 32.0-36.0 [facility] HospitalAaptxnrKBQQSUDXOG9523-22-60 07:34:00 Test Item Value Reference Range Interpretation Comments RDW (test code = RDW) 13.6 11.5-14.5 [place] 237700-02-15 07:34:00 Test Item Value Reference Range Interpretation Comments Platelet (test code = Platelet) 191 133-450 [facility] HospitalVeibdztCVLVOWERXZ5662-94-15 07:34:00 Test Item Value Reference Range Interpretation Comments MPV (test code = MPV) 10.1 7.4-10.4 [facility]PAR[facility] IWVTDES0156-02-25 07:34:00 Test Item Value Reference Range Interpretation Comments Ca Ion WB (test code = Ca Ion WB) 1.02 1.05-1.25 [facility] CenterannPARATHYROID BEHVYFR7286-67-98 07:34:00 Test Item Value Reference Range Interpretation Comments Ca Norm WB (test code = Ca Norm WB) 1.04 1.05-1.25 [facility]ennialCHEM UGZSM7190-62-59 07:34:00 Test Item Value Reference Range Interpretation Comments Magnesium Lvl (test code = Magnesium 2.0 1.8-2.4 Lvl) [facility] HospitalMdeeuxnDAJEDVVTGF3179-10-64 07:34:00 Test Item Value Reference Range Interpretation Comments Segs (test code = Segs) 71.2 45.0-75.0 [facility] HospitalVydozebWSIVHZGRRO2113-16-87 07:34:00 Test Item Value Reference Range Interpretation Comments Lymphocytes (test code = Lymphocytes) 19.2 20.0-40.0 [facility] HospitalPusyuugJPQZKRLCLO2554-13-84 07:34:00 Test Item Value Reference Range Interpretation Comments Monocytes (test code = Monocytes) 7.6 2.0-12.0 [facility] HospitalOpimdbqSTKSVXFYIS4613-52-90 07:34:00 Test Item Value Reference Range Interpretation Comments Eosinophils (test code = 1.6 See_Comment [A utomated message] The Eosinophils) system which ge nerated this result tra nsmitted reference range : <=4.0. The reference r natasha was not used to int erpret this result as normal/abnormal . [facility] HospitalBkyifgyNGOEMWULHP4792-52-80 07:34:00 Test Item Value Reference Range Interpretation Comments Basophils (test code = 0.4 See_Comment [Aut omated message] The Basophils) system which ge nerated this result tra nsmitted reference range : <=1.0. The reference r natasha was not used to int erpret this result as normal/abnormal . [facility] HospitalEvtvheaIRLOOIPKRH3959-71-16 07:34:00 Test Item Value Reference Range Interpretation Comments Neutrophils # (test code = Neutrophils 5.2 1.5-8.1 #) [place] [address]700-02-15 07:34:00 Test Item Value Reference Range Interpretation Comments Lymphocytes # (test code = Lymphocytes 1.4 1.0-5.5 #) [facility] HospitalCqydaseYOJEZIVWJY6555-50-81 07:34:00 Test Item Value Reference Range Interpretation Comments Monocytes # (test code 0.6 See_Comment [Aut omated message] The = Monocytes #) system which generated this result tra nsmitted reference range : <=0.8. The reference r natasha was not used to int erpret this result as normal/abnormal . [facility] HospitalXfuxuiyIEGCWINFYI3779-32-40 07:34:00 Test Item Value Reference Range Interpretation Comments Eosinophils # (test code 0.1 See_Comment [A utomated message] The = Eosinophils #) system whic h generated this result tra nsmitted reference range : <=0.5. The reference r natasha was not used to int erpret this result as normal/abnormal . [facility] HospitalBxkklybHPIMHMBGLE6256-21-41 07:34:00 Test Item Value Reference Range Interpretation Comments WBC (test code = WBC) 7.4 3.7-10.4 [place] [address]700-02-15 07:34:00 Test Item Value Reference Range Interpretation Comments RBC (test code = RBC) 3.73 4.20-5.40 [place] [address]700-02-15 07:34:00 Test Item Value Reference Range Interpretation Comments Hgb (test code = Hgb) 12.4 12.0-16.0 [place] [address]700-02-15 07:34:00 Test Item Value Reference Range Interpretation Comments Hct (test code = Hct) 36.3 36.0-48.0 [place] [address]700-02-15 07:34:00 Test Item Value Reference Range Interpretation Comments MCV (test code = MCV) 97.2 80.0-98.0 [place] [address]-02-15 07:34:00 Test Item Value Reference Range Interpretation Comments MCH (test code = MCH) 33.4 pg 27.0-31.0 [place] [address]700-02-15 07:34:00 Test Item Value Reference Range Interpretation Comments MCHC (test code = MCHC) 34.3 32.0-36.0 [place] [address]700-02-15 07:34:00 Test Item Value Reference Range Interpretation Comments RDW (test code = RDW) 13.6 11.5-14.5 [place] [address]700-02-15 07:34:00 Test Item Value Reference Range Interpretation Comments Platelet (test code = Platelet) 191 133-450 [facility] HospitalJngvzqsBNDTZGHUUN9176-72-05 07:34:00 Test Item Value Reference Range Interpretation Comments MPV (test code = MPV) 10.1 7.4-10.4 [facility]ennialPARATHYROID FHQJTTJ0812-44-90 07:34:00 Test Item Value Reference Range Interpretation Comments Ca Ion WB (test code = Ca Ion WB) 1.02 1.05-1.25 [facility] CenterannPARATHYROID FFAYGGF3049-09-32 07:34:00 Test Item Value Reference Range Interpretation Comments Ca Norm WB (test code = Ca Norm WB) 1.04 1.05-1.25 [facility] CenterannCHEM NMLOC4681-00-25 07:34:00 Test Item Value Reference Range Interpretation Comments Magnesium Lvl (test code = Magnesium 2.0 1.8-2.4 Lvl) [facility] HospitalRconhgtLQIBSVGPQB1097-72-71 07:34:00 Test Item Value Reference Range Interpretation Comments Segs (test code = Segs) 71.2 45.0-75.0 [facility] HospitalQsmplgvUHQUYTCSMI4337-80-89 07:34:00 Test Item Value Reference Range Interpretation Comments Lymphocytes (test code = Lymphocytes) 19.2 20.0-40.0 [facility] HospitalCcaezbmGKFJAXMUZR0281-33-96 07:34:00 Test Item Value Reference Range Interpretation Comments Monocytes (test code = Monocytes) 7.6 2.0-12.0 [facility] HospitalKrakeinIMHJWNATZA8993-46-50 07:34:00 Test Item Value Reference Range Interpretation Comments Eosinophils (test code = 1.6 See_Comment [A utomated message] The Eosinophils) system which ge nerated this result tra nsmitted reference range : <=4.0. The reference r natasha was not used to int erpret this result as normal/abnormal . [facility] HospitalYpcwlaaAFTEEJJKET2703-91-27 07:34:00 Test Item Value Reference Range Interpretation Comments Basophils (test code = 0.4 See_Comment [Aut omated message] The Basophils) system which ge nerated this result tra nsmitted reference range : <=1.0. The reference r natasha was not used to int erpret this result as normal/abnormal . [facility] HospitalAoeyngjEAQPHNDIRL9808-49-79 07:34:00 Test Item Value Reference Range Interpretation Comments Neutrophils # (test code = Neutrophils 5.2 1.5-8.1 #) [facility] HospitalSqeuzunOCGHXVVFFZ4806-81-71 07:34:00 Test Item Value Reference Range Interpretation Comments Lymphocytes # (test code = Lymphocytes 1.4 1.0-5.5 #) [place] [address]700-02-15 07:34:00 Test Item Value Reference Range Interpretation Comments Monocytes # (test code 0.6 See_Comment [Aut omated message] The = Monocytes #) system which generated this result tra nsmitted reference range : <=0.8. The reference r natasha was not used to int erpret this result as normal/abnormal . [place] [address]700-02-15 07:34:00 Test Item Value Reference Range Interpretation Comments Eosinophils # (test code 0.1 See_Comment [A utomated message] The = Eosinophils #) system whic h generated this result tra nsmitted reference range : <=0.5. The reference r natasha was not used to int erpret this result as normal/abnormal . [place] [address]700-02-15 07:34:00 Test Item Value Reference Range Interpretation Comments WBC (test code = WBC) 7.4 3.7-10.4 [place] [address]-02-15 07:34:00 Test Item Value Reference Range Interpretation Comments RBC (test code = RBC) 3.73 4.20-5.40 [place] [address]-02-15 07:34:00 Test Item Value Reference Range Interpretation Comments Hgb (test code = Hgb) 12.4 12.0-16.0 [place] [address]-02-15 07:34:00 Test Item Value Reference Range Interpretation Comments Hct (test code = Hct) 36.3 36.0-48.0 [place] [address]-02-15 07:34:00 Test Item Value Reference Range Interpretation Comments MCV (test code = MCV) 97.2 80.0-98.0 [place] [address]-02-15 07:34:00 Test Item Value Reference Range Interpretation Comments MCH (test code = MCH) 33.4 pg 27.0-31.0 [place] [address]-02-15 07:34:00 Test Item Value Reference Range Interpretation Comments MCHC (test code = MCHC) 34.3 32.0-36.0 [place] [address]-02-15 07:34:00 Test Item Value Reference Range Interpretation Comments RDW (test code = RDW) 13.6 11.5-14.5 [facility] CentennialYsovnypMIKDGCJXIV1017-03-23 07:34:00 Test Item Value Reference Range Interpretation Comments Platelet (test code = Platelet) 191 133-450 [facility] HospitalHtnhzirTHWXFYRAPA1338-40-22 07:34:00 Test Item Value Reference Range Interpretation Comments MPV (test code = MPV) 10.1 7.4-10.4 [facility]ATHY[facility] RXNNEIU1173-39-25 07:34:00 Test Item Value Reference Range Interpretation Comments Ca Ion WB (test code = Ca Ion WB) 1.02 1.05-1.25 [facility] CenterannPARSTATEN ISLAND UNIVERSITY HOSPITALROID YYLRPWV3094-13-82 07:34:00 Test Item Value Reference Range Interpretation Comments Ca Norm WB (test code = Ca Norm WB) 1.04 1.05-1.25 [facility]ennialCHEM BTDYB2692-11-43 07:34:00 Test Item Value Reference Range Interpretation Comments Magnesium Lvl (test code = Magnesium 2.0 1.8-2.4 Lvl) [facility] HospitalPqlwfdjEEBXAXPLXE8824-03-08 07:34:00 Test Item Value Reference Range Interpretation Comments Segs (test code = Segs) 71.2 45.0-75.0 [facility] HospitalSwhmhmdQJBTNHNKCB6348-60-64 07:34:00 Test Item Value Reference Range Interpretation Comments Lymphocytes (test code = Lymphocytes) 19.2 20.0-40.0 [place] [address]-02-15 07:34:00 Test Item Value Reference Range Interpretation Comments Monocytes (test code = Monocytes) 7.6 2.0-12.0 [facility] HospitalGwtubdzDYKMQEVWAR3456-39-10 07:34:00 Test Item Value Reference Range Interpretation Comments Eosinophils (test code = 1.6 See_Comment [A utomated message] The Eosinophils) system which ge nerated this result tra nsmitted reference range : <=4.0. The reference r natasha was not used to int erpret this result as normal/abnormal . [facility] HospitalZmjuixvUMBACDBJFZ1211-01-41 07:34:00 Test Item Value Reference Range Interpretation Comments Basophils (test code = 0.4 See_Comment [Aut omated message] The Basophils) system which ge nerated this result tra nsmitted reference range : <=1.0. The reference r natasha was not used to int erpret this result as normal/abnormal . [place] [address]-02-15 07:34:00 Test Item Value Reference Range Interpretation Comments Neutrophils # (test code = Neutrophils 5.2 1.5-8.1 #) [place] [address]-02-15 07:34:00 Test Item Value Reference Range Interpretation Comments Lymphocytes # (test code = Lymphocytes 1.4 1.0-5.5 #) [place] [address]-02-15 07:34:00 Test Item Value Reference Range Interpretation Comments Monocytes # (test code 0.6 See_Comment [Aut omated message] The = Monocytes #) system which generated this result tra nsmitted reference range : <=0.8. The reference r natasha was not used to int erpret this result as normal/abnormal . [address]02-15 07:34:00 Test Item Value Reference Range Interpretation Comments Eosinophils # (test code 0.1 See_Comment [A utomated message] The = Eosinophils #) system whic h generated this result tra nsmitted reference range : <=0.5. The reference r natasha was not used to int erpret this result as normal/abnormal . [place] [address]-02-15 07:34:00 Test Item Value Reference Range Interpretation Comments WBC (test code = WBC) 7.4 3.7-10.4 [place] [address]-02-15 07:34:00 Test Item Value Reference Range Interpretation Comments RBC (test code = RBC) 3.73 4.20-5.40 [place] [address]-02-15 07:34:00 Test Item Value Reference Range Interpretation Comments Hgb (test code = Hgb) 12.4 12.0-16.0 [place] [address]-02-15 07:34:00 Test Item Value Reference Range Interpretation Comments Hct (test code = Hct) 36.3 36.0-48.0 [place] [address]-02-15 07:34:00 Test Item Value Reference Range Interpretation Comments MCV (test code = MCV) 97.2 80.0-98.0 [address]02-15 07:34:00 Test Item Value Reference Range Interpretation Comments MCH (test code = MCH) 33.4 pg 27.0-31.0 [facility] CenterViomosfPHCKFVNTPR3874-48-62 07:34:00 Test Item Value Reference Range Interpretation Comments MCHC (test code = MCHC) 34.3 32.0-36.0 [facility] CenterSjtmalmMBFSMBGFJK6161-07-49 07:34:00 Test Item Value Reference Range Interpretation Comments RDW (test code = RDW) 13.6 11.5-14.5 [facility] CenterNsuexduFLHRRXIQCW8530-45-46 07:34:00 Test Item Value Reference Range Interpretation Comments Platelet (test code = Platelet) 191 133-450 [facility] CenterLrmvlenCUCWQPIGRV5934-17-54 07:34:00 Test Item Value Reference Range Interpretation Comments MPV (test code = MPV) 10.1 7.4-10.4 [facility] CenterannPARATHYROID SLHHEOQ0695-40-20 07:34:00 Test Item Value Reference Range Interpretation Comments Ca Ion WB (test code = Ca Ion WB) 1.02 1.05-1.25 [facility] CenterannPARATHYROID RWGDHCP2285-10-50 07:34:00 Test Item Value Reference Range Interpretation Comments Ca Norm WB (test code = Ca Norm WB) 1.04 1.05-1.25 [facility] CenterannCHEM LQHRO5228-49-47 07:34:00 Test Item Value Reference Range Interpretation Comments Magnesium Lvl (test code = Magnesium 2.0 1.8-2.4 Lvl) [facility] JacksonIacpkkpOBLYMWDNAY3619-90-82 07:34:00 Test Item Value Reference Range Interpretation Comments Segs (test code = Segs) 71.2 45.0-75.0 [facility] CenterGvzvzzsDIBSZBHRJS7954-23-25 07:34:00 Test Item Value Reference Range Interpretation Comments Lymphocytes (test code = Lymphocytes) 19.2 20.0-40.0 [facility] CentennialBklisrkPKZKMSNPAN0915-81-12 07:34:00 Test Item Value Reference Range Interpretation Comments Monocytes (test code = Monocytes) 7.6 2.0-12.0 [facility] CenterZpyfkgjODGUMNIBLX1044-22-47 07:34:00 Test Item Value Reference Range Interpretation Comments Eosinophils (test code = 1.6 See_Comment [A utomated message] The Eosinophils) system which ge nerated this result tra nsmitted reference range : <=4.0. The reference r natasha was not used to int erpret this result as normal/abnormal . [facility] HospitalSrjlzraDKSJPXAJNX6255-13-75 07:34:00 Test Item Value Reference Range Interpretation Comments Basophils (test code = 0.4 See_Comment [Aut omated message] The Basophils) system which ge nerated this result tra nsmitted reference range : <=1.0. The reference r natasha was not used to int erpret this result as normal/abnormal . [facility] HospitalTafmizjZJKYYWLBQN8986-89-10 07:34:00 Test Item Value Reference Range Interpretation Comments Neutrophils # (test code = Neutrophils 5.2 1.5-8.1 #) [facility] HospitalJsuyblePUOJXRYXIL2865-18-39 07:34:00 Test Item Value Reference Range Interpretation Comments Lymphocytes # (test code = Lymphocytes 1.4 1.0-5.5 #) [facility] HospitalZvtfuzhZBWHDSDNIX5938-41-41 07:34:00 Test Item Value Reference Range Interpretation Comments Monocytes # (test code 0.6 See_Comment [Aut omated message] The = Monocytes #) system which generated this result tra nsmitted reference range : <=0.8. The reference r natasha was not used to int erpret this result as normal/abnormal . [facility] HospitalTsidjviYYJFBAUIRJ9283-06-56 07:34:00 Test Item Value Reference Range Interpretation Comments Eosinophils # (test code 0.1 See_Comment [A utomated message] The = Eosinophils #) system whic h generated this result tra nsmitted reference range : <=0.5. The reference r natasha was not used to int erpret this result as normal/abnormal . [facility] HospitalElokxdyMGVGJOGCLP8271-58-33 07:34:00 Test Item Value Reference Range Interpretation Comments WBC (test code = WBC) 7.4 3.7-10.4 [facility] HospitalAvjqvijXBJLYUAFWJ2215-89-07 07:34:00 Test Item Value Reference Range Interpretation Comments RBC (test code = RBC) 3.73 4.20-5.40 [facility] HospitalTgeojbqPEWLDTUAWG8527-32-83 07:34:00 Test Item Value Reference Range Interpretation Comments Hgb (test code = Hgb) 12.4 12.0-16.0 [facility] HospitalAyywsuoFLCOQZPGMM1593-39-15 07:34:00 Test Item Value Reference Range Interpretation Comments Hct (test code = Hct) 36.3 36.0-48.0 [place] [address]700-02-15 07:34:00 Test Item Value Reference Range Interpretation Comments MCV (test code = MCV) 97.2 80.0-98.0 [facility] CenterNulnexxNHGETFAMNM8500-16-62 07:34:00 Test Item Value Reference Range Interpretation Comments MCH (test code = MCH) 33.4 pg 27.0-31.0 [facility] CenterHdnppqfRNLHJTGOYK5200-06-74 07:34:00 Test Item Value Reference Range Interpretation Comments MCHC (test code = MCHC) 34.3 32.0-36.0 [facility] CenterXlegrjrXKDXFNPTXZ3727-47-40 07:34:00 Test Item Value Reference Range Interpretation Comments RDW (test code = RDW) 13.6 11.5-14.5 [facility] CenterYvwokytHBWUSVMQTI9953-53-27 07:34:00 Test Item Value Reference Range Interpretation Comments Platelet (test code = Platelet) 191 133-450 [facility] JacksonFrrehokIYBSEUICTG6251-05-18 07:34:00 Test Item Value Reference Range Interpretation Comments MPV (test code = MPV) 10.1 7.4-10.4 [facility] CenterannPARATHYROID SJYIEPQ7619-16-13 07:34:00 Test Item Value Reference Range Interpretation Comments Ca Ion WB (test code = Ca Ion WB) 1.02 1.05-1.25 [facility] CenterannPARATHYROID RNPHCPF7445-63-72 07:34:00 Test Item Value Reference Range Interpretation Comments Ca Norm WB (test code = Ca Norm WB) 1.04 1.05-1.25 [facility] CenterannCHEM XQKWF7811-45-95 07:34:00 Test Item Value Reference Range Interpretation Comments Magnesium Lvl (test code = Magnesium 2.0 1.8-2.4 Lvl) [facility] CenterZuvrcrlFTUNLCFECI8725-11-58 07:34:00 Test Item Value Reference Range Interpretation Comments Segs (test code = Segs) 71.2 45.0-75.0 [facility] CenterDgrutdlGZWBOHYBXL6450-68-13 07:34:00 Test Item Value Reference Range Interpretation Comments Lymphocytes (test code = Lymphocytes) 19.2 20.0-40.0 [facility] CenterMedoendTCXSLAURYN8907-23-95 07:34:00 Test Item Value Reference Range Interpretation Comments Monocytes (test code = Monocytes) 7.6 2.0-12.0 [place] [address]-02-15 07:34:00 Test Item Value Reference Range Interpretation Comments Eosinophils (test code = 1.6 See_Comment [A utomated message] The Eosinophils) system which ge nerated this result tra nsmitted reference range : <=4.0. The reference r natasha was not used to int erpret this result as normal/abnormal . [place] [address]-02-15 07:34:00 Test Item Value Reference Range Interpretation Comments Basophils (test code = 0.4 See_Comment [Aut omated message] The Basophils) system which ge nerated this result tra nsmitted reference range : <=1.0. The reference r natasha was not used to int erpret this result as normal/abnormal . [place] [address]-02-15 07:34:00 Test Item Value Reference Range Interpretation Comments Neutrophils # (test code = Neutrophils 5.2 1.5-8.1 #) [place] 237700-02-15 07:34:00 Test Item Value Reference Range Interpretation Comments Lymphocytes # (test code = Lymphocytes 1.4 1.0-5.5 #) [place] [address]-02-15 07:34:00 Test Item Value Reference Range Interpretation Comments Monocytes # (test code 0.6 See_Comment [Aut omated message] The = Monocytes #) system which generated this result tra nsmitted reference range : <=0.8. The reference r natasha was not used to int erpret this result as normal/abnormal . [place] 237700-02-15 07:34:00 Test Item Value Reference Range Interpretation Comments Eosinophils # (test code 0.1 See_Comment [A utomated message] The = Eosinophils #) system whic h generated this result tra nsmitted reference range : <=0.5. The reference r natasha was not used to int erpret this result as normal/abnormal . [place] 237700-02-15 07:34:00 Test Item Value Reference Range Interpretation Comments WBC (test code = WBC) 7.4 3.7-10.4 [place] [address]-02-15 07:34:00 Test Item Value Reference Range Interpretation Comments RBC (test code = RBC) 3.73 4.20-5.40 [place] [address]-02-15 07:34:00 Test Item Value Reference Range Interpretation Comments Hgb (test code = Hgb) 12.4 12.0-16.0 [facility]NC[facility]-62-58 07:34:00 Test Item Value Reference Range Interpretation Comments Hct (test code = Hct) 36.3 36.0-48.0 [facility]HmjywszGCQUSPHLOV9698-68-87 07:34:00 Test Item Value Reference Range Interpretation Comments MCV (test code = MCV) 97.2 80.0-98.0 [facility] CenterGzuxcixSPBJHLSWUH8245-44-31 07:34:00 Test Item Value Reference Range Interpretation Comments MCH (test code = MCH) 33.4 pg 27.0-31.0 [facility] CenterQfmibauTADUJMPXGY0994-15-51 07:34:00 Test Item Value Reference Range Interpretation Comments MCHC (test code = MCHC) 34.3 32.0-36.0 [facility] CenterPqsxazbIFKFJESCVM6777-39-04 07:34:00 Test Item Value Reference Range Interpretation Comments RDW (test code = RDW) 13.6 11.5-14.5 [facility] CenterYvpajnoXCXECRNVHS8538-70-11 07:34:00 Test Item Value Reference Range Interpretation Comments Platelet (test code = Platelet) 191 133-450 [facility] CenterRbmdvllXOWLEOOHHG5829-41-10 07:34:00 Test Item Value Reference Range Interpretation Comments MPV (test code = MPV) 10.1 7.4-10.4 [facility] CenterannPARATHYROID PKMAOFQ8440-80-19 07:34:00 Test Item Value Reference Range Interpretation Comments Ca Ion WB (test code = Ca Ion WB) 1.02 1.05-1.25 [facility] CenterannPARATHYROID DEALXSP9004-24-61 07:34:00 Test Item Value Reference Range Interpretation Comments Ca Norm WB (test code = Ca Norm WB) 1.04 1.05-1.25 [facility] CenterannCARDIAC PLCLGUH9468-89-63 14:22:00 Test Item Value Reference Range Interpretation Comments Troponin-I (test code 0.19 See_Comment [Auto mated message] The = Troponin-I) system which g enerated this result transmit evelio reference range : <=0.40. The reference r natasha was not used to interpr et this result as nataliia l/abnormal. [facility] CenterannCARDIAC ZLZPZQK0165-04-32 14:22:00 Test Item Value Reference Range Interpretation Comments Troponin-I (test code 0.19 See_Comment [Auto mated message] The = Troponin-I) system which g enerated this result transmit evelio reference range : <=0.40. The reference r natasha was not used to interpr et this result as nataliia l/abnormal. [facility] Leadformance2020-02-14 14:22:00 Test Item Value Reference Range Interpretation Comments Troponin-I (test code 0.19 See_Comment [Auto mated message] The = Troponin-I) system which g enerated this result transmit evelio reference range : <=0.40. The reference r natasha was not used to interpr et this result as nataliia l/abnormal. [facility] [employer]2020-02-14 14:22:00 Test Item Value Reference Range Interpretation Comments Troponin-I (test code 0.19 See_Comment [Auto mated message] The = Troponin-I) system which g enerated this result transmit evelio reference range : <=0.40. The reference r natasha was not used to interpr et this result as nataliia l/abnormal. [facility] [employer]2020-02-14 14:22:00 Test Item Value Reference Range Interpretation Comments Troponin-I (test code 0.19 See_Comment [Auto mated message] The = Troponin-I) system which g enerated this result transmit evelio reference range : <=0.40. The reference r natasha was not used to interpr et this result as nataliia l/abnormal. [facility] [employer]2020-02-14 14:22:00 Test Item Value Reference Range Interpretation Comments Troponin-I (test code 0.19 See_Comment [Auto mated message] The = Troponin-I) system which g enerated this result transmit evelio reference range : <=0.40. The reference r natasha was not used to interpr et this result as nataliia l/abnormal. [facility] [employer]2020-02-14 14:22:00 Test Item Value Reference Range Interpretation Comments Troponin-I (test code 0.19 See_Comment [Auto mated message] The = Troponin-I) system which g enerated this result transmit evelio reference range : <=0.40. The reference r natasha was not used to interpr et this result as nataliia l/abnormal. [facility]ARD[facility] EVTSTTV8009-04-12 14:22:00 Test Item Value Reference Range Interpretation Comments Troponin-I (test code 0.19 See_Comment [Auto mated message] The = Troponin-I) system which g enerated this result transmit evelio reference range : <=0.40. The reference r natasha was not used to interpr et this result as nataliia l/abnormal. [facility] HospitalMtqevwkEXSYBYGMGX1480-20-14 11:04:00 Test Item Value Reference Range Interpretation Comments Segs (test code = Segs) 70.0 45.0-75.0 [facility] HospitalZlghqovMQCHVLRHSQ5233-13-11 11:04:00 Test Item Value Reference Range Interpretation Comments Lymphocytes (test code = Lymphocytes) 19.6 20.0-40.0 [facility] HospitalSiytafgYUEZNEAMAB5795-31-74 11:04:00 Test Item Value Reference Range Interpretation Comments Monocytes (test code = Monocytes) 8.7 2.0-12.0 [facility] HospitalRoachicYOVNBRQWYE7900-73-14 11:04:00 Test Item Value Reference Range Interpretation Comments Eosinophils (test code = 1.3 See_Comment [A utomated message] The Eosinophils) system which ge nerated this result tra nsmitted reference range : <=4.0. The reference r natasha was not used to int erpret this result as normal/abnormal . [facility] HospitalKuhforxILZDDPVHSO9771-45-91 11:04:00 Test Item Value Reference Range Interpretation Comments Basophils (test code = 0.4 See_Comment [Aut omated message] The Basophils) system which ge nerated this result tra nsmitted reference range : <=1.0. The reference r natasha was not used to int erpret this result as normal/abnormal . [facility] HospitalEgyotoiJYVCNCWOJA3160-41-36 11:04:00 Test Item Value Reference Range Interpretation Comments Neutrophils # (test code = Neutrophils 5.0 1.5-8.1 #) [facility] HospitalTbeageaGKABTNHCUG2778-52-73 11:04:00 Test Item Value Reference Range Interpretation Comments Lymphocytes # (test code = Lymphocytes 1.4 1.0-5.5 #) [facility] HospitalJciytoqCKTNBUMCPJ5648-72-10 11:04:00 Test Item Value Reference Range Interpretation Comments Monocytes # (test code 0.6 See_Comment [Aut omated message] The = Monocytes #) system which generated this result tra nsmitted reference range : <=0.8. The reference r natasha was not used to int erpret this result as normal/abnormal . [facility] HospitalExxiritGFVSPPMIIQ9111-17-65 11:04:00 Test Item Value Reference Range Interpretation Comments Eosinophils # (test code 0.1 See_Comment [A utomated message] The = Eosinophils #) system whic h generated this result tra nsmitted reference range : <=0.5. The reference r natasha was not used to int erpret this result as normal/abnormal . [facility]ennialMfezpdlPTXLISIXXP1063-12-95 11:04:00 Test Item Value Reference Range Interpretation Comments WBC (test code = WBC) 7.1 3.7-10.4 [facility] HospitalYsevlurGCJSKHDSCC3786-76-77 11:04:00 Test Item Value Reference Range Interpretation Comments RBC (test code = RBC) 3.72 4.20-5.40 [facility] CentennialXxmnfbsZWQQJDVMXW4479-04-80 11:04:00 Test Item Value Reference Range Interpretation Comments Hgb (test code = Hgb) 12.4 12.0-16.0 [facility] CentennialYgqkmbcPFMBFLGSXS0159-77-08 11:04:00 Test Item Value Reference Range Interpretation Comments Hct (test code = Hct) 36.6 36.0-48.0 [facility] HospitalXzbetlvQNWUDQNTAG9377-40-90 11:04:00 Test Item Value Reference Range Interpretation Comments MCV (test code = MCV) 98.4 80.0-98.0 [facility] CentennialBnonpylXLXRBPTMQF3082-42-13 11:04:00 Test Item Value Reference Range Interpretation Comments MCH (test code = MCH) 33.4 pg 27.0-31.0 [facility]RzfwdbfIZRJFONJSC5459-66-00 11:04:00 Test Item Value Reference Range Interpretation Comments MCHC (test code = MCHC) 34.0 32.0-36.0 [facility] JacksonHnocrxsGEKOWJGWDA6139-12-22 11:04:00 Test Item Value Reference Range Interpretation Comments RDW (test code = RDW) 13.1 11.5-14.5 [facility]ennialNjcrhgkOVCGGZTHIV9305-94-98 11:04:00 Test Item Value Reference Range Interpretation Comments Platelet (test code = Platelet) 202 133-450 [facility] HospitalPfwphueDCLLQWFIPK1997-02-37 11:04:00 Test Item Value Reference Range Interpretation Comments MPV (test code = MPV) 8.6 7.4-10.4 [facility] HospitalPeuansfPYSPGIZSFH7912-62-21 11:04:00 Test Item Value Reference Range Interpretation Comments Segs (test code = Segs) 70.0 45.0-75.0 [facility] HospitalDtxlvtrUTTGKNTKAV7565-58-82 11:04:00 Test Item Value Reference Range Interpretation Comments Lymphocytes (test code = Lymphocytes) 19.6 20.0-40.0 [place] [address]-02-14 11:04:00 Test Item Value Reference Range Interpretation Comments Monocytes (test code = Monocytes) 8.7 2.0-12.0 [facility] HospitalCuykekfPXUJQUBWQU8282-79-23 11:04:00 Test Item Value Reference Range Interpretation Comments Eosinophils (test code = 1.3 See_Comment [A utomated message] The Eosinophils) system which ge nerated this result tra nsmitted reference range : <=4.0. The reference r natasha was not used to int erpret this result as normal/abnormal . [facility] HospitalWwbwkpmHPAXMUFLLO7290-68-01 11:04:00 Test Item Value Reference Range Interpretation Comments Basophils (test code = 0.4 See_Comment [Aut omated message] The Basophils) system which ge nerated this result tra nsmitted reference range : <=1.0. The reference r natasha was not used to int erpret this result as normal/abnormal . [facility] HospitalPhllpeyXRXWUOBULU7863-63-55 11:04:00 Test Item Value Reference Range Interpretation Comments Neutrophils # (test code = Neutrophils 5.0 1.5-8.1 #) [facility] HospitalQkvayvqXQPTHBDYRU4746-63-29 11:04:00 Test Item Value Reference Range Interpretation Comments Lymphocytes # (test code = Lymphocytes 1.4 1.0-5.5 #) [place] 237700-02-14 11:04:00 Test Item Value Reference Range Interpretation Comments Monocytes # (test code 0.6 See_Comment [Aut omated message] The = Monocytes #) system which generated this result tra nsmitted reference range : <=0.8. The reference r natasha was not used to int erpret this result as normal/abnormal . [place] 237700-02-14 11:04:00 Test Item Value Reference Range Interpretation Comments Eosinophils # (test code 0.1 See_Comment [A utomated message] The = Eosinophils #) system Chideoic h generated this result tra nsmitted reference range : <=0.5. The reference r natasha was not used to int erpret this result as normal/abnormal . [facility] HospitalArnzziuFNRIUVNBMW1228-28-05 11:04:00 Test Item Value Reference Range Interpretation Comments WBC (test code = WBC) 7.1 3.7-10.4 [facility] HospitalBxjksmzXNKGIEKEDZ2630-33-35 11:04:00 Test Item Value Reference Range Interpretation Comments RBC (test code = RBC) 3.72 4.20-5.40 [facility] HospitalWydnkpkQXNAUEAOAC6046-79-78 11:04:00 Test Item Value Reference Range Interpretation Comments Hgb (test code = Hgb) 12.4 12.0-16.0 [facility] HospitalTufkieaFLSCIWSESX5182-16-27 11:04:00 Test Item Value Reference Range Interpretation Comments Hct (test code = Hct) 36.6 36.0-48.0 [facility] HospitalOqzsunaABDOXNLPVU0556-88-59 11:04:00 Test Item Value Reference Range Interpretation Comments MCV (test code = MCV) 98.4 80.0-98.0 [facility] HospitalBibdmyvYFUDPEZJXJ2152-06-38 11:04:00 Test Item Value Reference Range Interpretation Comments MCH (test code = MCH) 33.4 pg 27.0-31.0 [facility] HospitalQbhdlysMOUVZXVGNT6164-68-96 11:04:00 Test Item Value Reference Range Interpretation Comments MCHC (test code = MCHC) 34.0 32.0-36.0 [facility] HospitalZgefourOOPTXYDKQB7637-35-04 11:04:00 Test Item Value Reference Range Interpretation Comments RDW (test code = RDW) 13.1 11.5-14.5 [facility] HospitalAplxqfyNIDKUBMEPS5990-44-77 11:04:00 Test Item Value Reference Range Interpretation Comments Platelet (test code = Platelet) 202 133-450 [facility] HospitalLhdvojdSBUGXTRBGG9875-21-42 11:04:00 Test Item Value Reference Range Interpretation Comments MPV (test code = MPV) 8.6 7.4-10.4 [facility] HospitalFtvqlefYKVEEROTBF6243-98-14 11:04:00 Test Item Value Reference Range Interpretation Comments Segs (test code = Segs) 70.0 45.0-75.0 [facility] HospitalKinmkbdHLTUWIEZIC7096-63-06 11:04:00 Test Item Value Reference Range Interpretation Comments Lymphocytes (test code = Lymphocytes) 19.6 20.0-40.0 [place] 237700-02-14 11:04:00 Test Item Value Reference Range Interpretation Comments Monocytes (test code = Monocytes) 8.7 2.0-12.0 [facility] HospitalOumxzfaHUXEFASWSL6769-41-34 11:04:00 Test Item Value Reference Range Interpretation Comments Eosinophils (test code = 1.3 See_Comment [A utomated message] The Eosinophils) system which ge nerated this result tra nsmitted reference range : <=4.0. The reference r natasha was not used to int erpret this result as normal/abnormal . [facility] HospitalQslfuzkHOGGOBJYBP6745-04-70 11:04:00 Test Item Value Reference Range Interpretation Comments Basophils (test code = 0.4 See_Comment [Aut omated message] The Basophils) system which ge nerated this result tra nsmitted reference range : <=1.0. The reference r natasha was not used to int erpret this result as normal/abnormal . [facility] HospitalVwgfxliDDYLHIXXAL4719-01-13 11:04:00 Test Item Value Reference Range Interpretation Comments Neutrophils # (test code = Neutrophils 5.0 1.5-8.1 #) [facility] HospitalNbrgftrLQDAQOLHSA6181-25-90 11:04:00 Test Item Value Reference Range Interpretation Comments Lymphocytes # (test code = Lymphocytes 1.4 1.0-5.5 #) [facility] HospitalVpgtmwjEREVRECIDR3637-92-89 11:04:00 Test Item Value Reference Range Interpretation Comments Monocytes # (test code 0.6 See_Comment [Aut omated message] The = Monocytes #) system which generated this result tra nsmitted reference range : <=0.8. The reference r natasha was not used to int erpret this result as normal/abnormal . [facility] HospitalJmdzlqtXYBVGJWLLR6915-70-80 11:04:00 Test Item Value Reference Range Interpretation Comments Eosinophils # (test code 0.1 See_Comment [A utomated message] The = Eosinophils #) system whic h generated this result tra nsmitted reference range : <=0.5. The reference r natasha was not used to int erpret this result as normal/abnormal . [facility] HospitalJpywtplMXQYQODREV2082-80-42 11:04:00 Test Item Value Reference Range Interpretation Comments WBC (test code = WBC) 7.1 3.7-10.4 [facility] HospitalGgiibslPTYHZANNUW8340-45-35 11:04:00 Test Item Value Reference Range Interpretation Comments RBC (test code = RBC) 3.72 4.20-5.40 [facility] HospitalNujduodMLLDQTBWCW4297-55-78 11:04:00 Test Item Value Reference Range Interpretation Comments Hgb (test code = Hgb) 12.4 12.0-16.0 [facility] HospitalWhrlcsnGDPXLCMGNI1177-44-20 11:04:00 Test Item Value Reference Range Interpretation Comments Hct (test code = Hct) 36.6 36.0-48.0 [facility] HospitalExoftcuEAIHEGZLMF3574-00-80 11:04:00 Test Item Value Reference Range Interpretation Comments MCV (test code = MCV) 98.4 80.0-98.0 [facility] HospitalNvgalseYWSIXCPOMS5768-76-49 11:04:00 Test Item Value Reference Range Interpretation Comments MCH (test code = MCH) 33.4 pg 27.0-31.0 [facility] JacksonYbgedokGIAONOMOSB3957-51-61 11:04:00 Test Item Value Reference Range Interpretation Comments MCHC (test code = MCHC) 34.0 32.0-36.0 [facility] JacksonQzwbrvmVQGJOAZINP1264-79-33 11:04:00 Test Item Value Reference Range Interpretation Comments RDW (test code = RDW) 13.1 11.5-14.5 [facility] HospitalGueggetANZABSXDJA7388-46-01 11:04:00 Test Item Value Reference Range Interpretation Comments Platelet (test code = Platelet) 202 133-450 [facility] HospitalMzpvkaqHOFDIBFGYF1053-20-80 11:04:00 Test Item Value Reference Range Interpretation Comments MPV (test code = MPV) 8.6 7.4-10.4 [facility] HospitalXqhwwdpXXUFPTHEOJ6074-62-68 11:04:00 Test Item Value Reference Range Interpretation Comments Segs (test code = Segs) 70.0 45.0-75.0 [facility] HospitalPpommqbCRVNUFBKLK4810-07-31 11:04:00 Test Item Value Reference Range Interpretation Comments Lymphocytes (test code = Lymphocytes) 19.6 20.0-40.0 [facility] JacksonVacpprsUZTLCEDYIX5181-57-27 11:04:00 Test Item Value Reference Range Interpretation Comments Monocytes (test code = Monocytes) 8.7 2.0-12.0 [facility] HospitalLdgsgbtEWFCKKQHAC1354-86-61 11:04:00 Test Item Value Reference Range Interpretation Comments Eosinophils (test code = 1.3 See_Comment [A utomated message] The Eosinophils) system which ge nerated this result tra nsmitted reference range : <=4.0. The reference r natasha was not used to int erpret this result as normal/abnormal . [facility] HospitalKrrbrfsOYGSZJSZCL4049-52-54 11:04:00 Test Item Value Reference Range Interpretation Comments Basophils (test code = 0.4 See_Comment [Aut omated message] The Basophils) system which ge nerated this result tra nsmitted reference range : <=1.0. The reference r natasha was not used to int erpret this result as normal/abnormal . [facility] HospitalRuugajcOTGBMNOXGY9405-43-11 11:04:00 Test Item Value Reference Range Interpretation Comments Neutrophils # (test code = Neutrophils 5.0 1.5-8.1 #) [facility] HospitalWujcxpoNQAOBRYQSW9919-31-29 11:04:00 Test Item Value Reference Range Interpretation Comments Lymphocytes # (test code = Lymphocytes 1.4 1.0-5.5 #) [facility] HospitalAkvtfroWIEMQHKQBX5769-09-99 11:04:00 Test Item Value Reference Range Interpretation Comments Monocytes # (test code 0.6 See_Comment [Aut omated message] The = Monocytes #) system which generated this result tra nsmitted reference range : <=0.8. The reference r natasha was not used to int erpret this result as normal/abnormal . [facility] HospitalCjftidsUOAVQXGNFS8914-81-14 11:04:00 Test Item Value Reference Range Interpretation Comments Eosinophils # (test code 0.1 See_Comment [A utomated message] The = Eosinophils #) system whic h generated this result tra nsmitted reference range : <=0.5. The reference r natasha was not used to int erpret this result as normal/abnormal . [facility] HospitalJzuieucUMOSLZHGEJ3923-77-13 11:04:00 Test Item Value Reference Range Interpretation Comments WBC (test code = WBC) 7.1 3.7-10.4 [facility] HospitalPtuidssPGQDMSYRDG2462-51-30 11:04:00 Test Item Value Reference Range Interpretation Comments RBC (test code = RBC) 3.72 4.20-5.40 [facility] HospitalEkadtqdCXZAYVGRCO4843-22-73 11:04:00 Test Item Value Reference Range Interpretation Comments Hgb (test code = Hgb) 12.4 12.0-16.0 [facility] HospitalZththysMSLBPDPSLE5030-62-75 11:04:00 Test Item Value Reference Range Interpretation Comments Hct (test code = Hct) 36.6 36.0-48.0 [facility] HospitalVvohgrvUVGAKTKRIO7102-65-75 11:04:00 Test Item Value Reference Range Interpretation Comments MCV (test code = MCV) 98.4 80.0-98.0 [facility] HospitalQqochtqPGIJTZUJJZ4534-52-07 11:04:00 Test Item Value Reference Range Interpretation Comments MCH (test code = MCH) 33.4 pg 27.0-31.0 [facility] HospitalNlpwdikJWBPITUYGG9419-73-11 11:04:00 Test Item Value Reference Range Interpretation Comments MCHC (test code = MCHC) 34.0 32.0-36.0 [facility] HospitalZmbgkucQTGGXZCYFX4971-38-73 11:04:00 Test Item Value Reference Range Interpretation Comments RDW (test code = RDW) 13.1 11.5-14.5 [facility] HospitalAdzyseqIVZQPQLGBR8985-83-50 11:04:00 Test Item Value Reference Range Interpretation Comments Platelet (test code = Platelet) 202 133-450 [facility] HospitalSnxsgmeNNLSWHTDZQ8518-12-58 11:04:00 Test Item Value Reference Range Interpretation Comments MPV (test code = MPV) 8.6 7.4-10.4 [facility] HospitalPclyxywWCKCGUUGUB0142-03-97 11:04:00 Test Item Value Reference Range Interpretation Comments Segs (test code = Segs) 70.0 45.0-75.0 [facility] HospitalLpesaahBCUFCMRATK2340-75-70 11:04:00 Test Item Value Reference Range Interpretation Comments Lymphocytes (test code = Lymphocytes) 19.6 20.0-40.0 [facility] HospitalDyktdtoNXEXHSQATK6356-72-02 11:04:00 Test Item Value Reference Range Interpretation Comments Monocytes (test code = Monocytes) 8.7 2.0-12.0 [facility] HospitalWvlnopwRLOUQBRBSO9625-85-19 11:04:00 Test Item Value Reference Range Interpretation Comments Eosinophils (test code = 1.3 See_Comment [A utomated message] The Eosinophils) system which ge nerated this result tra nsmitted reference range : <=4.0. The reference r natasha was not used to int erpret this result as normal/abnormal . [facility] HospitalPeewpyqVTYKGGHLTM4620-13-55 11:04:00 Test Item Value Reference Range Interpretation Comments Basophils (test code = 0.4 See_Comment [Aut omated message] The Basophils) system which ge nerated this result tra nsmitted reference range : <=1.0. The reference r natasha was not used to int erpret this result as normal/abnormal . [facility] HospitalOkyuovjGAXQSYXZIQ8336-16-44 11:04:00 Test Item Value Reference Range Interpretation Comments Neutrophils # (test code = Neutrophils 5.0 1.5-8.1 #) [facility] HospitalWqpcuaeACDLDUZEAY4102-38-12 11:04:00 Test Item Value Reference Range Interpretation Comments Lymphocytes # (test code = Lymphocytes 1.4 1.0-5.5 #) [facility] HospitalHckudffUFSXTORHFQ8048-13-89 11:04:00 Test Item Value Reference Range Interpretation Comments Monocytes # (test code 0.6 See_Comment [Aut omated message] The = Monocytes #) system which generated this result tra nsmitted reference range : <=0.8. The reference r natasha was not used to int erpret this result as normal/abnormal . [facility] HospitalTqswjqfRFNBMDBDOT7556-16-15 11:04:00 Test Item Value Reference Range Interpretation Comments Eosinophils # (test code 0.1 See_Comment [A utomated message] The = Eosinophils #) system whic h generated this result tra nsmitted reference range : <=0.5. The reference r natasha was not used to int erpret this result as normal/abnormal . [facility]BmerrzxDREUYDPSNH8146-59-03 11:04:00 Test Item Value Reference Range Interpretation Comments WBC (test code = WBC) 7.1 3.7-10.4 [facility] HospitalGnrfmvkKINGYXRSRW4956-42-69 11:04:00 Test Item Value Reference Range Interpretation Comments RBC (test code = RBC) 3.72 4.20-5.40 [facility] HospitalKhmrpufAVGFPTTZUV3974-79-76 11:04:00 Test Item Value Reference Range Interpretation Comments Hgb (test code = Hgb) 12.4 12.0-16.0 [facility] HospitalPtlctgiARQHZHECBK7707-33-04 11:04:00 Test Item Value Reference Range Interpretation Comments Hct (test code = Hct) 36.6 36.0-48.0 [facility] HospitalEvuxovjVFXRDCXGEB6669-30-50 11:04:00 Test Item Value Reference Range Interpretation Comments MCV (test code = MCV) 98.4 80.0-98.0 [facility] HospitalYcfuwogRLLNKNCTNN5592-11-12 11:04:00 Test Item Value Reference Range Interpretation Comments MCH (test code = MCH) 33.4 pg 27.0-31.0 [facility] HospitalZkvdjbfIMAFDXLUYK5796-97-90 11:04:00 Test Item Value Reference Range Interpretation Comments MCHC (test code = MCHC) 34.0 32.0-36.0 [facility] HospitalEvscmgdPIGVYJIEQG8872-01-39 11:04:00 Test Item Value Reference Range Interpretation Comments RDW (test code = RDW) 13.1 11.5-14.5 [facility] HospitalLyhoapfTTYLHWNJAZ4807-25-53 11:04:00 Test Item Value Reference Range Interpretation Comments Platelet (test code = Platelet) 202 133-450 [facility] HospitalSqkozgpHVWWVPQDDQ4606-02-71 11:04:00 Test Item Value Reference Range Interpretation Comments MPV (test code = MPV) 8.6 7.4-10.4 [facility] HospitalNeeugwrXMWQXBTOTY1595-34-55 11:04:00 Test Item Value Reference Range Interpretation Comments Segs (test code = Segs) 70.0 45.0-75.0 [facility] HospitalTafxxpkUYUFJWSZVK3759-54-55 11:04:00 Test Item Value Reference Range Interpretation Comments Lymphocytes (test code = Lymphocytes) 19.6 20.0-40.0 [facility] HospitalFdpjomuONPJSSLXSQ1798-31-04 11:04:00 Test Item Value Reference Range Interpretation Comments Monocytes (test code = Monocytes) 8.7 2.0-12.0 [facility] HospitalCsbbhfuJGMMULKTXI4953-11-00 11:04:00 Test Item Value Reference Range Interpretation Comments Eosinophils (test code = 1.3 See_Comment [A utomated message] The Eosinophils) system which ge nerated this result tra nsmitted reference range : <=4.0. The reference r natahsa was not used to int erpret this result as normal/abnormal . [facility] HospitalTgfzuibVIRAUFQIZU8913-79-18 11:04:00 Test Item Value Reference Range Interpretation Comments Basophils (test code = 0.4 See_Comment [Aut omated message] The Basophils) system which ge nerated this result tra nsmitted reference range : <=1.0. The reference r natasha was not used to int erpret this result as normal/abnormal . [facility] HospitalAxxauquJRVIXZTDWJ3789-58-70 11:04:00 Test Item Value Reference Range Interpretation Comments Neutrophils # (test code = Neutrophils 5.0 1.5-8.1 #) [facility] HospitalUprtpobLSYCWWDMRN2946-11-01 11:04:00 Test Item Value Reference Range Interpretation Comments Lymphocytes # (test code = Lymphocytes 1.4 1.0-5.5 #) [facility] HospitalOeohhctRMYBIPMSKV7685-98-83 11:04:00 Test Item Value Reference Range Interpretation Comments Monocytes # (test code 0.6 See_Comment [Aut omated message] The = Monocytes #) system which generated this result tra nsmitted reference range : <=0.8. The reference r natasha was not used to int erpret this result as normal/abnormal . [facility] HospitalOdprvsuQNFXZPGGGW1205-23-90 11:04:00 Test Item Value Reference Range Interpretation Comments Eosinophils # (test code 0.1 See_Comment [A utomated message] The = Eosinophils #) system whic h generated this result tra nsmitted reference range : <=0.5. The reference r natasha was not used to int erpret this result as normal/abnormal . [facility] HospitalWqygjghQGDVGOGMKQ0857-37-31 11:04:00 Test Item Value Reference Range Interpretation Comments WBC (test code = WBC) 7.1 3.7-10.4 [facility] HospitalKcvjacgRREOSFRFWN8626-06-45 11:04:00 Test Item Value Reference Range Interpretation Comments RBC (test code = RBC) 3.72 4.20-5.40 [facility] HospitalWsroqotATXNXNJVUR6197-06-87 11:04:00 Test Item Value Reference Range Interpretation Comments Hgb (test code = Hgb) 12.4 12.0-16.0 [place] 237700-02-14 11:04:00 Test Item Value Reference Range Interpretation Comments Hct (test code = Hct) 36.6 36.0-48.0 [facility] HospitalLswixykVQYMDSQWVQ1462-39-06 11:04:00 Test Item Value Reference Range Interpretation Comments MCV (test code = MCV) 98.4 80.0-98.0 [facility] HospitalHwfxcjaPONPEFDXNZ9939-81-16 11:04:00 Test Item Value Reference Range Interpretation Comments MCH (test code = MCH) 33.4 pg 27.0-31.0 [facility] HospitalJvbgyffXPKDWMKKHS5293-43-45 11:04:00 Test Item Value Reference Range Interpretation Comments MCHC (test code = MCHC) 34.0 32.0-36.0 [facility] HospitalTktohwlYBKZYDOYSF3755-44-05 11:04:00 Test Item Value Reference Range Interpretation Comments RDW (test code = RDW) 13.1 11.5-14.5 [facility] HospitalPajeugdOWQLOCJFWN8113-86-90 11:04:00 Test Item Value Reference Range Interpretation Comments Platelet (test code = Platelet) 202 133-450 [facility] HospitalMkpmdihSKVUAAWSJH0466-24-65 11:04:00 Test Item Value Reference Range Interpretation Comments MPV (test code = MPV) 8.6 7.4-10.4 [facility] HospitalDgveginKHZRNTPYBV5384-78-95 11:04:00 Test Item Value Reference Range Interpretation Comments Segs (test code = Segs) 70.0 45.0-75.0 [facility] HospitalYdviaiaFCDOJUGSNF2495-65-34 11:04:00 Test Item Value Reference Range Interpretation Comments Lymphocytes (test code = Lymphocytes) 19.6 20.0-40.0 [facility] HospitalMxnkwmsBFNNGELPYM8051-58-19 11:04:00 Test Item Value Reference Range Interpretation Comments Monocytes (test code = Monocytes) 8.7 2.0-12.0 [facility] HospitalDhaigfsICHRURANSO7321-52-24 11:04:00 Test Item Value Reference Range Interpretation Comments Eosinophils (test code = 1.3 See_Comment [A utomated message] The Eosinophils) system which ge nerated this result tra nsmitted reference range : <=4.0. The reference r natasha was not used to int erpret this result as normal/abnormal . [facility] HospitalIyxafsoXMDKDOFAUB0744-89-82 11:04:00 Test Item Value Reference Range Interpretation Comments Basophils (test code = 0.4 See_Comment [Aut omated message] The Basophils) system which ge nerated this result tra nsmitted reference range : <=1.0. The reference r natasha was not used to int erpret this result as normal/abnormal . [facility] HospitalFzkitrxSYQPVMKMFM5307-91-53 11:04:00 Test Item Value Reference Range Interpretation Comments Neutrophils # (test code = Neutrophils 5.0 1.5-8.1 #) [facility] HospitalNodedpwTDJSSTIDKK4120-16-04 11:04:00 Test Item Value Reference Range Interpretation Comments Lymphocytes # (test code = Lymphocytes 1.4 1.0-5.5 #) [facility] HospitalYxkxdswFWQYTYKSDU2949-70-88 11:04:00 Test Item Value Reference Range Interpretation Comments Monocytes # (test code 0.6 See_Comment [Aut omated message] The = Monocytes #) system which generated this result tra nsmitted reference range : <=0.8. The reference r natasha was not used to int erpret this result as normal/abnormal . [facility] HospitalSihrbrhGXSZSPZBKS5439-31-48 11:04:00 Test Item Value Reference Range Interpretation Comments Eosinophils # (test code 0.1 See_Comment [A utomated message] The = Eosinophils #) system whic h generated this result tra nsmitted reference range : <=0.5. The reference r natasha was not used to int erpret this result as normal/abnormal . [facility] HospitalMfvyxjcQJXMLSHVWR3441-78-46 11:04:00 Test Item Value Reference Range Interpretation Comments WBC (test code = WBC) 7.1 3.7-10.4 [facility] HospitalQfvubawXEHRUAOUEU5308-39-31 11:04:00 Test Item Value Reference Range Interpretation Comments RBC (test code = RBC) 3.72 4.20-5.40 [facility] HospitalVwzbowcFBWATHFKWD2924-59-15 11:04:00 Test Item Value Reference Range Interpretation Comments Hgb (test code = Hgb) 12.4 12.0-16.0 [facility] HospitalJuyccyjTBBDBAJUQI2812-31-81 11:04:00 Test Item Value Reference Range Interpretation Comments Hct (test code = Hct) 36.6 36.0-48.0 [facility] HospitalEwapvggCRJOAQGTUO6479-75-80 11:04:00 Test Item Value Reference Range Interpretation Comments MCV (test code = MCV) 98.4 80.0-98.0 [facility] HospitalPltuqehYYCHWHXQZY2511-65-05 11:04:00 Test Item Value Reference Range Interpretation Comments MCH (test code = MCH) 33.4 pg 27.0-31.0 [facility] HospitalLcpgdfdEZPWSKBBCU1838-19-10 11:04:00 Test Item Value Reference Range Interpretation Comments MCHC (test code = MCHC) 34.0 32.0-36.0 [facility] HospitalMurumllEZYHRBJEBC7020-53-28 11:04:00 Test Item Value Reference Range Interpretation Comments RDW (test code = RDW) 13.1 11.5-14.5 [facility] HospitalSpvoqsjNJZMXMHHZG4559-95-86 11:04:00 Test Item Value Reference Range Interpretation Comments Platelet (test code = Platelet) 202 133-450 [facility] HospitalWaxvodaZWYXKAGZLH9633-79-84 11:04:00 Test Item Value Reference Range Interpretation Comments MPV (test code = MPV) 8.6 7.4-10.4 [facility] HospitalMijtaewQATYGTHRGA4039-57-74 11:04:00 Test Item Value Reference Range Interpretation Comments Segs (test code = Segs) 70.0 45.0-75.0 [facility] HospitalVkcddnaOKVOAHHVZZ6494-41-67 11:04:00 Test Item Value Reference Range Interpretation Comments Lymphocytes (test code = Lymphocytes) 19.6 20.0-40.0 [facility] HospitalJevvxcfVUPPFJDRUP1554-12-55 11:04:00 Test Item Value Reference Range Interpretation Comments Monocytes (test code = Monocytes) 8.7 2.0-12.0 [facility] HospitalSkolslyAKLIRUXDAC4579-76-60 11:04:00 Test Item Value Reference Range Interpretation Comments Eosinophils (test code = 1.3 See_Comment [A utomated message] The Eosinophils) system which ge nerated this result tra nsmitted reference range : <=4.0. The reference r natasha was not used to int erpret this result as normal/abnormal . [facility] HospitalKphpjffOWIQPSEHGJ1636-66-19 11:04:00 Test Item Value Reference Range Interpretation Comments Basophils (test code = 0.4 See_Comment [Aut omated message] The Basophils) system which ge nerated this result tra nsmitted reference range : <=1.0. The reference r natasha was not used to int erpret this result as normal/abnormal . [facility] HospitalLuypayvZCNADWVPUN2167-53-22 11:04:00 Test Item Value Reference Range Interpretation Comments Neutrophils # (test code = Neutrophils 5.0 1.5-8.1 #) [facility] HospitalTuximjsUSLAZCTIVN1089-66-23 11:04:00 Test Item Value Reference Range Interpretation Comments Lymphocytes # (test code = Lymphocytes 1.4 1.0-5.5 #) [facility] HospitalCsmyqqsHIDWFCVPBD9138-36-00 11:04:00 Test Item Value Reference Range Interpretation Comments Monocytes # (test code 0.6 See_Comment [Aut omated message] The = Monocytes #) system which generated this result tra nsmitted reference range : <=0.8. The reference r natasha was not used to int erpret this result as normal/abnormal . [facility] HospitalDelgncoDUDJTYCRMF6698-66-96 11:04:00 Test Item Value Reference Range Interpretation Comments Eosinophils # (test code 0.1 See_Comment [A utomated message] The = Eosinophils #) system whic h generated this result tra nsmitted reference range : <=0.5. The reference r natasha was not used to int erpret this result as normal/abnormal . [facility] HospitalJtgmlnnQFAJDOVHNW6422-88-97 11:04:00 Test Item Value Reference Range Interpretation Comments WBC (test code = WBC) 7.1 3.7-10.4 [facility] HospitalAhxqigkLKZLDQWQHQ7622-54-96 11:04:00 Test Item Value Reference Range Interpretation Comments RBC (test code = RBC) 3.72 4.20-5.40 [facility] HospitalSdxdqfvZZHWPQPZEL0456-06-92 11:04:00 Test Item Value Reference Range Interpretation Comments Hgb (test code = Hgb) 12.4 12.0-16.0 [facility] HospitalBivloyiURIPJEEVMZ3313-79-95 11:04:00 Test Item Value Reference Range Interpretation Comments Hct (test code = Hct) 36.6 36.0-48.0 [place] [address]-02-14 11:04:00 Test Item Value Reference Range Interpretation Comments MCV (test code = MCV) 98.4 80.0-98.0 [facility] HospitalEotrtqgJQECVJHFIN8315-94-93 11:04:00 Test Item Value Reference Range Interpretation Comments MCH (test code = MCH) 33.4 pg 27.0-31.0 [facility] HospitalAbcgevySPKFTLTOSX3553-65-00 11:04:00 Test Item Value Reference Range Interpretation Comments MCHC (test code = MCHC) 34.0 32.0-36.0 [facility] HospitalMwxjesyOKXPNODOOI7427-65-73 11:04:00 Test Item Value Reference Range Interpretation Comments RDW (test code = RDW) 13.1 11.5-14.5 [facility]YdtumcwMTUUIWEUFF7121-27-68 11:04:00 Test Item Value Reference Range Interpretation Comments Platelet (test code = Platelet) 202 133-450 [facility] HospitalQvyqilqJZKTWZYOSJ5953-35-36 11:04:00 Test Item Value Reference Range Interpretation Comments MPV (test code = MPV) 8.6 7.4-10.4 [facility]ennialPlotWattJANE [facility] BRQNYOQ7328-03-33 22:29:00 Test Item Value Reference Range Interpretation Comments Troponin-I (test code 0.34 See_Comment [Auto mated message] The = Troponin-I) system which g enerated this result transmit evelio reference range : <=0.40. The reference r natasha was not used to interpr et this result as nataliia l/abnormal. [facility]PlotWattJANE [facility] KXHXVPG5628-78-80 22:29:00 Test Item Value Reference Range Interpretation Comments Troponin-I (test code 0.34 See_Comment [Auto mated message] The = Troponin-I) system which g enerated this result transmit evelio reference range : <=0.40. The reference r natasha was not used to interpr et this result as nataliia l/abnormal. [facility] 22:29:00 Test Item Value Reference Range Interpretation Comments Troponin-I (test code 0.34 See_Comment [Auto mated message] The = Troponin-I) system which g enerated this result transmit evelio reference range : <=0.40. The reference r natasha was not used to interpr et this result as nataliia l/abnormal. [facility] 22:29:00 Test Item Value Reference Range Interpretation Comments Troponin-I (test code 0.34 See_Comment [Auto mated message] The = Troponin-I) system which g enerated this result transmit evelio reference range : <=0.40. The reference r natasha was not used to interpr et this result as nataliia l/abnormal. [facility] 22:29:00 Test Item Value Reference Range Interpretation Comments Troponin-I (test code 0.34 See_Comment [Auto mated message] The = Troponin-I) system which g enerated this result transmit evelio reference range : <=0.40. The reference r natasha was not used to interpr et this result as nataliia l/abnormal. [facility] [employer]2020-02-13 22:29:00 Test Item Value Reference Range Interpretation Comments Troponin-I (test code 0.34 See_Comment [Auto mated message] The = Troponin-I) system which g enerated this result transmit evelio reference range : <=0.40. The reference r natasha was not used to interpr et this result as nataliia l/abnormal. [facility] [employer]2020-02-13 22:29:00 Test Item Value Reference Range Interpretation Comments Troponin-I (test code 0.34 See_Comment [Auto mated message] The = Troponin-I) system which g enerated this result transmit evelio reference range : <=0.40. The reference r natasha was not used to interpr et this result as nataliia l/abnormal. [facility] [employer]2020-02-13 22:29:00 Test Item Value Reference Range Interpretation Comments Troponin-I (test code 0.34 See_Comment [Auto mated message] The = Troponin-I) system which g enerated this result transmit evelio reference range : <=0.40. The reference r natasha was not used to interpr et this result as nataliia l/abnormal. [facility] [email or web address] 01:10:00 Test Item Value Reference Range Interpretation Comments Total Protein (test code = Total 6.0 6.4-8.4 Protein) [facility] [email or web address] 01:10:00 Test Item Value Reference Range Interpretation Comments Albumin Lvl (test code = Albumin Lvl) 2.5 3.5-5.0 [facility] [email or web address] 01:10:00 Test Item Value Reference Range Interpretation Comments ALT (test code = ALT) 26 See_Comment [Auto mated message] The system which ge nerated this result transmit evelio reference range : <=65. The reference range was not used to interpr et this result as nataliia l/abnormal. [facility] [email or web address] 01:10:00 Test Item Value Reference Range Interpretation Comments AST (test code = AST) 30 See_Comment [Auto mated message] The system which ge nerated this result transmit evelio reference range : <=37. The reference range was not used to interpr et this result as nataliia l/abnormal. [facility] [employer] [id number] 01:10:00 Test Item Value Reference Range Interpretation Comments Alk Phos (test code = Alk Phos) 55 39-136 [facility]At[facility] [id number] 01:10:00 Test Item Value Reference Range Interpretation Comments Bili Total (test code = Bili Total) 0.3 0.2-1.3 [facility] [employer] [id number] 01:10:00 Test Item Value Reference Range Interpretation Comments B/C Ratio (test code = B/C Ratio) 26 1 6-25 [facility] [id number] 01:10:00 Test Item Value Reference Range Interpretation Comments Globulin (test code = Globulin) 3.5 2.7-4.2 [facility] [id number] 01:10:00 Test Item Value Reference Range Interpretation Comments A/G Ratio (test code = A/G Ratio) 0.7 1 0.7-1.6 [facility] [id number] 01:10:00 Test Item Value Reference Range Interpretation Comments Procalcitonin Lvl (test 0.06 See_Comment [Au tomated message] code = Procalcitonin Lvl) Th e system which generated this result transmitted ref erence range: <=0.10. The reference range was not used to interpr et this result as normal/abnormal . [facility] [employer] [id number] 01:10:00 Test Item Value Reference Range Interpretation Comments Total Protein (test code = Total 6.0 6.4-8.4 Protein) [facility] [id number] 01:10:00 Test Item Value Reference Range Interpretation Comments Albumin Lvl (test code = Albumin Lvl) 2.5 3.5-5.0 [facility] [id number] 01:10:00 Test Item Value Reference Range Interpretation Comments ALT (test code = ALT) 26 See_Comment [Auto mated message] The system which ge nerated this result transmit evelio reference range : <=65. The reference range was not used to interpr et this result as nataliia l/abnormal. [facility] [employer] [id number] 01:10:00 Test Item Value Reference Range Interpretation Comments AST (test code = AST) 30 See_Comment [Auto mated message] The system which ge nerated this result transmit evelio reference range : <=37. The reference range was not used to interpr et this result as nataliia l/abnormal. [facility] [employer] [id number] 01:10:00 Test Item Value Reference Range Interpretation Comments Alk Phos (test code = Alk Phos) 55 39-136 [facility] [employer] [id number] 01:10:00 Test Item Value Reference Range Interpretation Comments Bili Total (test code = Bili Total) 0.3 0.2-1.3 [facility] [employer] [id number] 01:10:00 Test Item Value Reference Range Interpretation Comments B/C Ratio (test code = B/C Ratio) 26 1 6-25 [facility] [employer] [id number] 01:10:00 Test Item Value Reference Range Interpretation Comments Globulin (test code = Globulin) 3.5 2.7-4.2 [facility] [employer] [id number] 01:10:00 Test Item Value Reference Range Interpretation Comments A/G Ratio (test code = A/G Ratio) 0.7 1 0.7-1.6 [facility] [employer] [id number] 01:10:00 Test Item Value Reference Range Interpretation Comments Procalcitonin Lvl (test 0.06 See_Comment [Au tomated message] code = Procalcitonin Lvl) Th e system which generated this result transmitted ref erence range: <=0.10. The reference range was not used to interpr et this result as normal/abnormal . [facility] [employer] [id number] 01:10:00 Test Item Value Reference Range Interpretation Comments Total Protein (test code = Total 6.0 6.4-8.4 Protein) [facility] [employer] [id number] 01:10:00 Test Item Value Reference Range Interpretation Comments Albumin Lvl (test code = Albumin Lvl) 2.5 3.5-5.0 [facility] [employer] [id number] 01:10:00 Test Item Value Reference Range Interpretation Comments ALT (test code = ALT) 26 See_Comment [Auto mated message] The system which ge nerated this result transmit evelio reference range : <=65. The reference range was not used to interpr et this result as nataliia l/abnormal. [facility] [employer] [id number] 01:10:00 Test Item Value Reference Range Interpretation Comments AST (test code = AST) 30 See_Comment [Auto mated message] The system which ge nerated this result transmit evelio reference range : <=37. The reference range was not used to interpr et this result as nataliia l/abnormal. [facility] [id number] 01:10:00 Test Item Value Reference Range Interpretation Comments Alk Phos (test code = Alk Phos) 55 39-136 [facility] [id number] 01:10:00 Test Item Value Reference Range Interpretation Comments Bili Total (test code = Bili Total) 0.3 0.2-1.3 [facility] [id number] 01:10:00 Test Item Value Reference Range Interpretation Comments B/C Ratio (test code = B/C Ratio) 26 1 6-25 [facility] [id number] 01:10:00 Test Item Value Reference Range Interpretation Comments Globulin (test code = Globulin) 3.5 2.7-4.2 [facility] [employer] [id number] 01:10:00 Test Item Value Reference Range Interpretation Comments A/G Ratio (test code = A/G Ratio) 0.7 1 0.7-1.6 [facility] [id number] 01:10:00 Test Item Value Reference Range Interpretation Comments Procalcitonin Lvl (test 0.06 See_Comment [Au tomated message] code = Procalcitonin Lvl) Th e system which generated this result transmitted ref erence range: <=0.10. The reference range was not used to interpr et this result as normal/abnormal . [facility] [employer] [id number] 01:10:00 Test Item Value Reference Range Interpretation Comments Total Protein (test code = Total 6.0 6.4-8.4 Protein) [facility] [id number] 01:10:00 Test Item Value Reference Range Interpretation Comments Albumin Lvl (test code = Albumin Lvl) 2.5 3.5-5.0 [facility] [employer] [id number] 01:10:00 Test Item Value Reference Range Interpretation Comments ALT (test code = ALT) 26 See_Comment [Auto mated message] The system which ge nerated this result transmit evelio reference range : <=65. The reference range was not used to interpr et this result as nataliia l/abnormal. [facility] [employer] [id number] 01:10:00 Test Item Value Reference Range Interpretation Comments AST (test code = AST) 30 See_Comment [Auto mated message] The system which ge nerated this result transmit evelio reference range : <=37. The reference range was not used to interpr et this result as nataliia l/abnormal. [employer] [id number] 01:10:00 Test Item Value Reference Range Interpretation Comments Alk Phos (test code = Alk Phos) 55 39-136 [facility] [employer] [id number] 01:10:00 Test Item Value Reference Range Interpretation Comments Bili Total (test code = Bili Total) 0.3 0.2-1.3 [facility] [employer] [id number] 01:10:00 Test Item Value Reference Range Interpretation Comments B/C Ratio (test code = B/C Ratio) 26 1 6-25 [facility] [id number] 01:10:00 Test Item Value Reference Range Interpretation Comments Globulin (test code = Globulin) 3.5 2.7-4.2 [facility] [id number] 01:10:00 Test Item Value Reference Range Interpretation Comments A/G Ratio (test code = A/G Ratio) 0.7 1 0.7-1.6 [facility] [employer] [id number] 01:10:00 Test Item Value Reference Range Interpretation Comments Procalcitonin Lvl (test 0.06 See_Comment [Au tomated message] code = Procalcitonin Lvl) Th e system which generated this result transmitted ref erence range: <=0.10. The reference range was not used to interpr et this result as normal/abnormal . [facility] [id number] 01:10:00 Test Item Value Reference Range Interpretation Comments Total Protein (test code = Total 6.0 6.4-8.4 Protein) [facility] [id number] 01:10:00 Test Item Value Reference Range Interpretation Comments Albumin Lvl (test code = Albumin Lvl) 2.5 3.5-5.0 [facility] [facility] [id number] 01:10:00 Test Item Value Reference Range Interpretation Comments ALT (test code = ALT) 26 See_Comment [Auto mated message] The system which ge nerated this result transmit evelio reference range : <=65. The reference range was not used to interpr et this result as nataliia l/abnormal. [employer] [id number] 01:10:00 Test Item Value Reference Range Interpretation Comments AST (test code = AST) 30 See_Comment [Auto mated message] The system which ge nerated this result transmit evelio reference range : <=37. The reference range was not used to interpr et this result as nataliia l/abnormal. [employer] [id number] 01:10:00 Test Item Value Reference Range Interpretation Comments Alk Phos (test code = Alk Phos) 55 39-136 [facility] [id number] 01:10:00 Test Item Value Reference Range Interpretation Comments Bili Total (test code = Bili Total) 0.3 0.2-1.3 [facility] [employer] [id number] 01:10:00 Test Item Value Reference Range Interpretation Comments B/C Ratio (test code = B/C Ratio) 26 1 6-25 [facility] [id number] 01:10:00 Test Item Value Reference Range Interpretation Comments Globulin (test code = Globulin) 3.5 2.7-4.2 [facility] [id number] 01:10:00 Test Item Value Reference Range Interpretation Comments A/G Ratio (test code = A/G Ratio) 0.7 1 0.7-1.6 [facility] [employer] [id number] 01:10:00 Test Item Value Reference Range Interpretation Comments Procalcitonin Lvl (test 0.06 See_Comment [Au tomated message] code = Procalcitonin Lvl) Th e system which generated this result transmitted ref erence range: <=0.10. The reference range was not used to interpr et this result as normal/abnormal . [facility] [id number] 01:10:00 Test Item Value Reference Range Interpretation Comments Total Protein (test code = Total 6.0 6.4-8.4 Protein) [facility] [id number] 01:10:00 Test Item Value Reference Range Interpretation Comments Albumin Lvl (test code = Albumin Lvl) 2.5 3.5-5.0 [facility] [id number] 01:10:00 Test Item Value Reference Range Interpretation Comments ALT (test code = ALT) 26 See_Comment [Auto mated message] The system which ge nerated this result transmit evelio reference range : <=65. The reference range was not used to interpr et this result as nataliia l/abnormal. [facility] [id number] 01:10:00 Test Item Value Reference Range Interpretation Comments AST (test code = AST) 30 See_Comment [Auto mated message] The system which ge nerated this result transmit evelio reference range : <=37. The reference range was not used to interpr et this result as nataliia l/abnormal. [facility] [id number] 01:10:00 Test Item Value Reference Range Interpretation Comments Alk Phos (test code = Alk Phos) 55 39-136 [facility] [id number] 01:10:00 Test Item Value Reference Range Interpretation Comments Bili Total (test code = Bili Total) 0.3 0.2-1.3 [facility] [id number] 01:10:00 Test Item Value Reference Range Interpretation Comments B/C Ratio (test code = B/C Ratio) 26 1 6-25 [facility] [id number] 01:10:00 Test Item Value Reference Range Interpretation Comments Globulin (test code = Globulin) 3.5 2.7-4.2 [facility] [id number] 01:10:00 Test Item Value Reference Range Interpretation Comments A/G Ratio (test code = A/G Ratio) 0.7 1 0.7-1.6 [facility] [id number] 01:10:00 Test Item Value Reference Range Interpretation Comments Procalcitonin Lvl (test 0.06 See_Comment [Au tomated message] code = Procalcitonin Lvl) Th e system which generated this result transmitted ref erence range: <=0.10. The reference range was not used to interpr et this result as normal/abnormal . [facility] [id number] 01:10:00 Test Item Value Reference Range Interpretation Comments Total Protein (test code = Total 6.0 6.4-8.4 Protein) [place] [id number] 01:10:00 Test Item Value Reference Range Interpretation Comments Albumin Lvl (test code = Albumin Lvl) 2.5 3.5-5.0 [place] [id number] 01:10:00 Test Item Value Reference Range Interpretation Comments ALT (test code = ALT) 26 See_Comment [Auto mated message] The system which ge nerated this result transmit evelio reference range : <=65. The reference range was not used to interpr et this result as nataliia l/abnormal. [place] [address]-02-13 01:10:00 Test Item Value Reference Range Interpretation Comments AST (test code = AST) 30 See_Comment [Auto mated message] The system which ge nerated this result transmit evelio reference range : <=37. The reference range was not used to interpr et this result as nataliia l/abnormal. [facility] [id number] 01:10:00 Test Item Value Reference Range Interpretation Comments Alk Phos (test code = Alk Phos) 55 39-136 [facility] [id number] 01:10:00 Test Item Value Reference Range Interpretation Comments Bili Total (test code = Bili Total) 0.3 0.2-1.3 [place] [address]-02-13 01:10:00 Test Item Value Reference Range Interpretation Comments B/C Ratio (test code = B/C Ratio) 26 1 6-25 [facility] [id number] 01:10:00 Test Item Value Reference Range Interpretation Comments Globulin (test code = Globulin) 3.5 2.7-4.2 [facility] [id number] 01:10:00 Test Item Value Reference Range Interpretation Comments A/G Ratio (test code = A/G Ratio) 0.7 1 0.7-1.6 [place] [id number] 01:10:00 Test Item Value Reference Range Interpretation Comments Procalcitonin Lvl (test 0.06 See_Comment [Au tomated message] code = Procalcitonin Lvl) Th e system which generated this result transmitted ref erence range: <=0.10. The reference range was not used to interpr et this result as normal/abnormal . [facility] [id number] 01:10:00 Test Item Value Reference Range Interpretation Comments Total Protein (test code = Total 6.0 6.4-8.4 Protein) [facility] [id number] 01:10:00 Test Item Value Reference Range Interpretation Comments Albumin Lvl (test code = Albumin Lvl) 2.5 3.5-5.0 [facility] [id number] 01:10:00 Test Item Value Reference Range Interpretation Comments ALT (test code = ALT) 26 See_Comment [Auto mated message] The system which ge nerated this result transmit evelio reference range : <=65. The reference range was not used to interpr et this result as nataliia l/abnormal. [facility] [employer] [id number] 01:10:00 Test Item Value Reference Range Interpretation Comments AST (test code = AST) 30 See_Comment [Auto mated message] The system which ge nerated this result transmit evelio reference range : <=37. The reference range was not used to interpr et this result as nataliia l/abnormal. [facility] [employer] [id number] 01:10:00 Test Item Value Reference Range Interpretation Comments Alk Phos (test code = Alk Phos) 55 39-136 [facility] [id number] 01:10:00 Test Item Value Reference Range Interpretation Comments Bili Total (test code = Bili Total) 0.3 0.2-1.3 [facility] [id number] 01:10:00 Test Item Value Reference Range Interpretation Comments B/C Ratio (test code = B/C Ratio) 26 1 6-25 [facility] [id number] 01:10:00 Test Item Value Reference Range Interpretation Comments Globulin (test code = Globulin) 3.5 2.7-4.2 [facility] [id number] 01:10:00 Test Item Value Reference Range Interpretation Comments A/G Ratio (test code = A/G Ratio) 0.7 1 0.7-1.6 [facility] [id number] 01:10:00 Test Item Value Reference Range Interpretation Comments Procalcitonin Lvl (test 0.06 See_Comment [Au tomated message] code = Procalcitonin Lvl) e system which generated this result transmitted ref erence range: <=0.10. The reference range was not used to interpr et this result as normal/abnormal . [place] [id number] 06:09:00 Test Item Value Reference Range Interpretation Comments Lactic Acid Lvl (test code = Lactic 1.0 0.5-2.2 Acid Lvl) [place] [id number] 06:09:00 Test Item Value Reference Range Interpretation Comments Lactic Acid Lvl (test code = Lactic 1.0 0.5-2.2 Acid Lvl) [place] [address]-02-12 06:09:00 Test Item Value Reference Range Interpretation Comments Lactic Acid Lvl (test code = Lactic 1.0 0.5-2.2 Acid Lvl) [place] 683570-02-12 06:09:00 Test Item Value Reference Range Interpretation Comments Lactic Acid Lvl (test code = Lactic 1.0 0.5-2.2 Acid Lvl) [place] 683570-02-12 06:09:00 Test Item Value Reference Range Interpretation Comments Lactic Acid Lvl (test code = Lactic 1.0 0.5-2.2 Acid Lvl) [facility]2020-02-12 06:09:00 Test Item Value Reference Range Interpretation Comments Lactic Acid Lvl (test code = Lactic 1.0 0.5-2.2 Acid Lvl) [place] [address]-02-12 06:09:00 Test Item Value Reference Range Interpretation Comments Lactic Acid Lvl (test code = Lactic 1.0 0.5-2.2 Acid Lvl) [place] [address]-02-12 06:09:00 Test Item Value Reference Range Interpretation Comments Lactic Acid Lvl (test code = Lactic 1.0 0.5-2.2 Acid Lvl) [place] [address]-02-11 19:34:00 Test Item Value Reference Range Interpretation Comments Procalcitonin Lvl (test 0.08 See_Comment [Au tomated message] code = Procalcitonin Lvl) e system which generated this result transmitted ref erence range: <=0.10. The reference range was not used to interpr et this result as normal/abnormal . [place] 683570-02-11 19:34:00 Test Item Value Reference Range Interpretation Comments Lactic Acid Lvl (test code = Lactic 2.1 0.5-2.2 Acid Lvl) [place] 683570-02-11 19:34:00 Test Item Value Reference Range Interpretation Comments Procalcitonin Lvl (test 0.08 See_Comment [Au tomated message] code = Procalcitonin Lvl) Th e system which generated this result transmitted ref erence range: <=0.10. The reference range was not used to interpr et this result as normal/abnormal . [place] 683570-02-11 19:34:00 Test Item Value Reference Range Interpretation Comments Lactic Acid Lvl (test code = Lactic 2.1 0.5-2.2 Acid Lvl) [place] 683570-02-11 19:34:00 Test Item Value Reference Range Interpretation Comments Procalcitonin Lvl (test 0.08 See_Comment [Au tomated message] code = Procalcitonin Lvl) Th e system which generated this result transmitted ref erence range: <=0.10. The reference range was not used to interpr et this result as normal/abnormal . [place] 683570-02-11 19:34:00 Test Item Value Reference Range Interpretation Comments Lactic Acid Lvl (test code = Lactic 2.1 0.5-2.2 Acid Lvl) [place] [address]-02-11 19:34:00 Test Item Value Reference Range Interpretation Comments Procalcitonin Lvl (test 0.08 See_Comment [Au tomated message] code = Procalcitonin Lvl) Th e system which generated this result transmitted ref erence range: <=0.10. The reference range was not used to interpr et this result as normal/abnormal . [place] 683570-02-11 19:34:00 Test Item Value Reference Range Interpretation Comments Lactic Acid Lvl (test code = Lactic 2.1 0.5-2.2 Acid Lvl) [place] 683570-02-11 19:34:00 Test Item Value Reference Range Interpretation Comments Procalcitonin Lvl (test 0.08 See_Comment [Au tomated message] code = Procalcitonin Lvl) Th e system which generated this result transmitted ref erence range: <=0.10. The reference range was not used to interpr et this result as normal/abnormal . [place] 683570-02-11 19:34:00 Test Item Value Reference Range Interpretation Comments Lactic Acid Lvl (test code = Lactic 2.1 0.5-2.2 Acid Lvl) [facility]2020-02-11 19:34:00 Test Item Value Reference Range Interpretation Comments Procalcitonin Lvl (test 0.08 See_Comment [Au tomated message] code = Procalcitonin Lvl) Th e system which generated this result transmitted ref erence range: <=0.10. The reference range was not used to interpr et this result as normal/abnormal . [place] 683570-02-11 19:34:00 Test Item Value Reference Range Interpretation Comments Lactic Acid Lvl (test code = Lactic 2.1 0.5-2.2 Acid Lvl) [facility]2020-02-11 19:34:00 Test Item Value Reference Range Interpretation Comments Procalcitonin Lvl (test 0.08 See_Comment [Au tomated message] code = Procalcitonin Lvl) Th e system which generated this result transmitted ref erence range: <=0.10. The reference range was not used to interpr et this result as normal/abnormal . [place] 683570-02-11 19:34:00 Test Item Value Reference Range Interpretation Comments Lactic Acid Lvl (test code = Lactic 2.1 0.5-2.2 Acid Lvl) [place] 683570-02-11 19:34:00 Test Item Value Reference Range Interpretation Comments Procalcitonin Lvl (test 0.08 See_Comment [Au tomated message] code = Procalcitonin Lvl) Th e system which generated this result transmitted ref erence range: <=0.10. The reference range was not used to interpr et this result as normal/abnormal . [place] 683570-02-11 19:34:00 Test Item Value Reference Range Interpretation Comments Lactic Acid Lvl (test code = Lactic 2.1 0.5-2.2 Acid Lvl) [place] 683570-02-11 15:33:00 Test Item Value Reference Range Interpretation Comments Lactic Acid Lvl (test code = Lactic 4.1 0.5-2.2 Acid Lvl) [place] 683570-02-11 15:33:00 Test Item Value Reference Range Interpretation Comments Lactic Acid Lvl (test code = Lactic 4.1 0.5-2.2 Acid Lvl) [place] 683570-02-11 15:33:00 Test Item Value Reference Range Interpretation Comments Lactic Acid Lvl (test code = Lactic 4.1 0.5-2.2 Acid Lvl) [place] 683570-02-11 15:33:00 Test Item Value Reference Range Interpretation Comments Lactic Acid Lvl (test code = Lactic 4.1 0.5-2.2 Acid Lvl) [place] 683570-02-11 15:33:00 Test Item Value Reference Range Interpretation Comments Lactic Acid Lvl (test code = Lactic 4.1 0.5-2.2 Acid Lvl) [place] 683570-02-11 15:33:00 Test Item Value Reference Range Interpretation Comments Lactic Acid Lvl (test code = Lactic 4.1 0.5-2.2 Acid Lvl) [place] 683570-02-11 15:33:00 Test Item Value Reference Range Interpretation Comments Lactic Acid Lvl (test code = Lactic 4.1 0.5-2.2 Acid Lvl) [place] 683570-02-11 15:33:00 Test Item Value Reference Range Interpretation Comments Lactic Acid Lvl (test code = Lactic 4.1 0.5-2.2 Acid Lvl) [place] 683570-02-11 11:25:00 Test Item Value Reference Range Interpretation Comments B/C Ratio (test code = B/C Ratio) 12 6-25 [place] 683570-02-11 11:25:00 Test Item Value Reference Range Interpretation Comments Total Protein (test code = Total 7.1 6.4-8.4 Protein) [place] 683570-02-11 11:25:00 Test Item Value Reference Range Interpretation Comments Albumin Lvl (test code = Albumin Lvl) 2.9 3.5-5.0 [facility] [id number] 11:25:00 Test Item Value Reference Range Interpretation Comments Globulin (test code = Globulin) 4.2 2.7-4.2 [facility] [id number] 11:25:00 Test Item Value Reference Range Interpretation Comments A/G Ratio (test code = A/G Ratio) 0.7 1 0.7-1.6 [facility] [id number] 11:25:00 Test Item Value Reference Range Interpretation Comments ALT (test code = ALT) 23 See_Comment [Auto mated message] The system which ge nerated this result transmit evelio reference range : <=65. The reference range was not used to interpr et this result as nataliia l/abnormal. [facility] [id number] 11:25:00 Test Item Value Reference Range Interpretation Comments AST (test code = AST) 36 See_Comment [Auto mated message] The system which ge nerated this result transmit evelio reference range : <=37. The reference range was not used to interpr et this result as nataliia l/abnormal. [facility] [id number] 11:25:00 Test Item Value Reference Range Interpretation Comments Alk Phos (test code = Alk Phos) 67 39-136 [facility] [id number] 11:25:00 Test Item Value Reference Range Interpretation Comments Bili Total (test code = Bili Total) 0.5 0.2-1.3 [facility] [id number] 11:25:00 Test Item Value Reference Range Interpretation Comments B/C Ratio (test code = B/C Ratio) 12 1 6-25 [facility] [id number] 11:25:00 Test Item Value Reference Range Interpretation Comments Total Protein (test code = Total 7.1 6.4-8.4 Protein) [facility] [id number] 11:25:00 Test Item Value Reference Range Interpretation Comments Albumin Lvl (test code = Albumin Lvl) 2.9 3.5-5.0 [facility] [id number] 11:25:00 Test Item Value Reference Range Interpretation Comments Globulin (test code = Globulin) 4.2 2.7-4.2 [facility] [id number] 11:25:00 Test Item Value Reference Range Interpretation Comments A/G Ratio (test code = A/G Ratio) 0.7 1 0.7-1.6 [facility] [id number] 11:25:00 Test Item Value Reference Range Interpretation Comments ALT (test code = ALT) 23 See_Comment [Auto mated message] The system which ge nerated this result transmit evelio reference range : <=65. The reference range was not used to interpr et this result as nataliia l/abnormal. [facility] [id number] 11:25:00 Test Item Value Reference Range Interpretation Comments AST (test code = AST) 36 See_Comment [Auto mated message] The system which ge nerated this result transmit evelio reference range : <=37. The reference range was not used to interpr et this result as nataliia l/abnormal. [facility] [id number] 11:25:00 Test Item Value Reference Range Interpretation Comments Alk Phos (test code = Alk Phos) 67 39-136 [facility] [id number] 11:25:00 Test Item Value Reference Range Interpretation Comments Bili Total (test code = Bili Total) 0.5 0.2-1.3 [facility] [id number] 11:25:00 Test Item Value Reference Range Interpretation Comments B/C Ratio (test code = B/C Ratio) 12 1 6-25 [facility] [id number] 11:25:00 Test Item Value Reference Range Interpretation Comments Total Protein (test code = Total 7.1 6.4-8.4 Protein) [facility] [id number] 11:25:00 Test Item Value Reference Range Interpretation Comments Albumin Lvl (test code = Albumin Lvl) 2.9 3.5-5.0 [facility] [id number] 11:25:00 Test Item Value Reference Range Interpretation Comments Globulin (test code = Globulin) 4.2 2.7-4.2 [facility] [id number] 11:25:00 Test Item Value Reference Range Interpretation Comments A/G Ratio (test code = A/G Ratio) 0.7 1 0.7-1.6 [facility] [id number] 11:25:00 Test Item Value Reference Range Interpretation Comments ALT (test code = ALT) 23 See_Comment [Auto mated message] The system which ge nerated this result transmit evelio reference range : <=65. The reference range was not used to interpr et this result as nataliia l/abnormal. [facility] [id number] 11:25:00 Test Item Value Reference Range Interpretation Comments AST (test code = AST) 36 See_Comment [Auto mated message] The system which ge nerated this result transmit evelio reference range : <=37. The reference range was not used to interpr et this result as nataliia l/abnormal. [facility] [id number] 11:25:00 Test Item Value Reference Range Interpretation Comments Alk Phos (test code = Alk Phos) 67 39-136 [facility] [id number] 11:25:00 Test Item Value Reference Range Interpretation Comments Bili Total (test code = Bili Total) 0.5 0.2-1.3 [facility] [id number] 11:25:00 Test Item Value Reference Range Interpretation Comments B/C Ratio (test code = B/C Ratio) 12 1 6-25 [facility] [id number] 11:25:00 Test Item Value Reference Range Interpretation Comments Total Protein (test code = Total 7.1 6.4-8.4 Protein) [facility] [id number] 11:25:00 Test Item Value Reference Range Interpretation Comments Albumin Lvl (test code = Albumin Lvl) 2.9 3.5-5.0 [facility] [id number] 11:25:00 Test Item Value Reference Range Interpretation Comments Globulin (test code = Globulin) 4.2 2.7-4.2 [facility] [id number] 11:25:00 Test Item Value Reference Range Interpretation Comments A/G Ratio (test code = A/G Ratio) 0.7 1 0.7-1.6 [facility] [id number] 11:25:00 Test Item Value Reference Range Interpretation Comments ALT (test code = ALT) 23 See_Comment [Auto mated message] The system which ge nerated this result transmit evelio reference range : <=65. The reference range was not used to interpr et this result as nataliia l/abnormal. [facility] [id number] 11:25:00 Test Item Value Reference Range Interpretation Comments AST (test code = AST) 36 See_Comment [Auto mated message] The system which ge nerated this result transmit evelio reference range : <=37. The reference range was not used to interpr et this result as nataliia l/abnormal. [facility] [id number] 11:25:00 Test Item Value Reference Range Interpretation Comments Alk Phos (test code = Alk Phos) 67 39-136 [facility] [id number] 11:25:00 Test Item Value Reference Range Interpretation Comments Bili Total (test code = Bili Total) 0.5 0.2-1.3 [facility] [id number] 11:25:00 Test Item Value Reference Range Interpretation Comments B/C Ratio (test code = B/C Ratio) 12 1 6-25 [facility] [id number] 11:25:00 Test Item Value Reference Range Interpretation Comments Total Protein (test code = Total 7.1 6.4-8.4 Protein) [facility] [id number] 11:25:00 Test Item Value Reference Range Interpretation Comments Albumin Lvl (test code = Albumin Lvl) 2.9 3.5-5.0 [facility] [id number] 11:25:00 Test Item Value Reference Range Interpretation Comments Globulin (test code = Globulin) 4.2 2.7-4.2 [facility] [id number] 11:25:00 Test Item Value Reference Range Interpretation Comments A/G Ratio (test code = A/G Ratio) 0.7 1 0.7-1.6 [facility] [id number] 11:25:00 Test Item Value Reference Range Interpretation Comments ALT (test code = ALT) 23 See_Comment [Auto mated message] The system which ge nerated this result transmit evelio reference range : <=65. The reference range was not used to interpr et this result as nataliia l/abnormal. [facility] [id number] 11:25:00 Test Item Value Reference Range Interpretation Comments AST (test code = AST) 36 See_Comment [Auto mated message] The system which ge nerated this result transmit evelio reference range : <=37. The reference range was not used to interpr et this result as nataliia l/abnormal. [facility] [employer] [id number] 11:25:00 Test Item Value Reference Range Interpretation Comments Alk Phos (test code = Alk Phos) 67 39-136 [facility] [id number] 11:25:00 Test Item Value Reference Range Interpretation Comments Bili Total (test code = Bili Total) 0.5 0.2-1.3 [facility] [id number] 11:25:00 Test Item Value Reference Range Interpretation Comments B/C Ratio (test code = B/C Ratio) 12 1 6-25 [facility] [id number] 11:25:00 Test Item Value Reference Range Interpretation Comments Total Protein (test code = Total 7.1 6.4-8.4 Protein) [facility] [id number] 11:25:00 Test Item Value Reference Range Interpretation Comments Albumin Lvl (test code = Albumin Lvl) 2.9 3.5-5.0 [facility] [id number] 11:25:00 Test Item Value Reference Range Interpretation Comments Globulin (test code = Globulin) 4.2 2.7-4.2 [facility] [employer] [id number] 11:25:00 Test Item Value Reference Range Interpretation Comments A/G Ratio (test code = A/G Ratio) 0.7 1 0.7-1.6 [facility] [id number] 11:25:00 Test Item Value Reference Range Interpretation Comments ALT (test code = ALT) 23 See_Comment [Auto mated message] The system which ge nerated this result transmit evelio reference range : <=65. The reference range was not used to interpr et this result as nataliia l/abnormal. [facility] [employer] [id number] 11:25:00 Test Item Value Reference Range Interpretation Comments AST (test code = AST) 36 See_Comment [Auto mated message] The system which DidLog nerated this result transmit evelio reference range : <=37. The reference range was not used to interpr et this result as nataliia l/abnormal. [facility] [employer] [id number] 11:25:00 Test Item Value Reference Range Interpretation Comments Alk Phos (test code = Alk Phos) 67 39-136 [facility] [id number] 11:25:00 Test Item Value Reference Range Interpretation Comments Bili Total (test code = Bili Total) 0.5 0.2-1.3 [facility]2020-02-11 11:25:00 Test Item Value Reference Range Interpretation Comments B/C Ratio (test code = B/C Ratio) 12 1 6-25 [facility] [id number] 11:25:00 Test Item Value Reference Range Interpretation Comments Total Protein (test code = Total 7.1 6.4-8.4 Protein) [facility]2020-02-11 11:25:00 Test Item Value Reference Range Interpretation Comments Albumin Lvl (test code = Albumin Lvl) 2.9 3.5-5.0 [facility]2020-02-11 11:25:00 Test Item Value Reference Range Interpretation Comments Globulin (test code = Globulin) 4.2 2.7-4.2 [facility] [id number] 11:25:00 Test Item Value Reference Range Interpretation Comments A/G Ratio (test code = A/G Ratio) 0.7 1 0.7-1.6 [facility] [id number] 11:25:00 Test Item Value Reference Range Interpretation Comments ALT (test code = ALT) 23 See_Comment [Auto mated message] The system which ge nerated this result transmit evelio reference range : <=65. The reference range was not used to interpr et this result as nataliia l/abnormal. [facility] [id number] 11:25:00 Test Item Value Reference Range Interpretation Comments AST (test code = AST) 36 See_Comment [Auto mated message] The system which ge nerated this result transmit evelio reference range : <=37. The reference range was not used to interpr et this result as nataliia l/abnormal. [facility] [id number] 11:25:00 Test Item Value Reference Range Interpretation Comments Alk Phos (test code = Alk Phos) 67 39-136 [facility] [id number] 11:25:00 Test Item Value Reference Range Interpretation Comments Bili Total (test code = Bili Total) 0.5 0.2-1.3 [facility]2020-02-11 11:25:00 Test Item Value Reference Range Interpretation Comments B/C Ratio (test code = B/C Ratio) 12 1 6-25 [facility]2020-02-11 11:25:00 Test Item Value Reference Range Interpretation Comments Total Protein (test code = Total 7.1 6.4-8.4 Protein) [facility]2020-02-11 11:25:00 Test Item Value Reference Range Interpretation Comments Albumin Lvl (test code = Albumin Lvl) 2.9 3.5-5.0 [facility]2020-02-11 11:25:00 Test Item Value Reference Range Interpretation Comments Globulin (test code = Globulin) 4.2 2.7-4.2 [facility]2020-02-11 11:25:00 Test Item Value Reference Range Interpretation Comments A/G Ratio (test code = A/G Ratio) 0.7 1 0.7-1.6 [place] [id number] 11:25:00 Test Item Value Reference Range Interpretation Comments ALT (test code = ALT) 23 See_Comment [Auto mated message] The system which ge nerated this result transmit evelio reference range : <=65. The reference range was not used to interpr et this result as nataliia l/abnormal. [facility]2020-02-11 11:25:00 Test Item Value Reference Range Interpretation Comments AST (test code = AST) 36 See_Comment [Auto mated message] The system which ge nerated this result transmit evelio reference range : <=37. The reference range was not used to interpr et this result as nataliia l/abnormal. [facility] [id number] 11:25:00 Test Item Value Reference Range Interpretation Comments Alk Phos (test code = Alk Phos) 67 39-136 [facility]2020-02-11 11:25:00 Test Item Value Reference Range Interpretation Comments Bili Total (test code = Bili Total) 0.5 0.2-1.3 [place] [id number] 20:51:00 Test Item Value Reference Range Interpretation Comments LDL (Calculated) (test code = LDL 165 (Calculated)) [place] [id number] 20:51:00 Test Item Value Reference Range Interpretation Comments VLDL (test code = VLDL) 17 [facility] [id number] 20:51:00 Test Item Value Reference Range Interpretation Comments Hgb A1C (test code = Hgb A1C) 5.5 [facility] [id number] 20:51:00 Test Item Value Reference Range Interpretation Comments UA Color (test code = Light Yellow UA Color) *NA*(09/15/19 2:51 PM) [facility] [id number] 20:51:00 Test Item Value Reference Range Interpretation Comments UA Turbidity (test code = Clear (09/15/19 2:51 UA Turbidity) PM) [facility] [id number] 20:51:00 Test Item Value Reference Range Interpretation Comments UA Spec Grav (test code = UA Spec 1.015 1 Grav) [facility] [id number] 20:51:00 Test Item Value Reference Range Interpretation Comments UA pH (test code = UA pH) 8.0 1 5.0-8.0 [facility] [id number] 20:51:00 Test Item Value Reference Range Interpretation Comments UA Protein (test code = UA Protein) 30 mg/dL [facility] [id number] 20:51:00 Test Item Value Reference Range Interpretation Comments UA Ketones (test code = UA Negative mg/dL Ketones) [facility] [id number] 20:51:00 Test Item Value Reference Range Interpretation Comments UA Bili (test code = Negative *NA*(09/15/19 UA Bili) 2:51 PM) [facility] [id number] 20:51:00 Test Item Value Reference Range Interpretation Comments UA Blood (test code = Small *ABN*(09/15/19 UA Blood) 2:51 PM) [facility] [id number] 20:51:00 Test Item Value Reference Range Interpretation Comments UA Urobilinogen (test code = UA no gt 0.1-1.0 Urobilinogen) [facility] [id number] 20:51:00 Test Item Value Reference Range Interpretation Comments UA Nitrite (test code Negative (09/15/19 2:51 = UA Nitrite) PM) [facility] [id number] 20:51:00 Test Item Value Reference Range Interpretation Comments UA Leuk Est (test Negative (09/15/19 2:51 code = UA Leuk Est) PM) [facility] [id number] 20:51:00 Test Item Value Reference Range Interpretation Comments UA WBC (test code = 3 See_Comment [Automa evelio message] The UA WBC) system which ge nerated this result transmit evelio reference range : <=5. The reference range was not used to interpr et this result as nataliia l/abnormal. [facility] [id number] 20:51:00 Test Item Value Reference Range Interpretation Comments UA RBC (test code = 16 See_Comment [Automa evelio message] The UA RBC) system which ge nerated this result transmit evelio reference range : <=2. The reference range was not used to interpr et this result as nataliia l/abnormal. [facility] AND [id number] 20:51:00 Test Item Value Reference Range Interpretation Comments UA Sq Epi (test code = UA Sq Epi) None Seen [facility] AND [id number] 20:51:00 Test Item Value Reference Range Interpretation Comments UA Glucose (test code = UA Glucose) 50mg/dl [facility] [id number] 20:51:00 Test Item Value Reference Range Interpretation Comments Trig (test code = Trig) 83 [facility] CenterYzzjlsaFEMQJC4721-08-32 20:51:00 Test Item Value Reference Range Interpretation Comments Chol (test code = Chol) 253 [facility] [id number] 20:51:00 Test Item Value Reference Range Interpretation Comments HDL (test code = HDL) 71 [facility] [id number] 20:51:00 Test Item Value Reference Range Interpretation Comments CHD Risk (test code = CHD Risk) 3.56 1 3.90-5.80 [facility] [id number] 20:51:00 Test Item Value Reference Range Interpretation Comments LDL (Calculated) (test code = LDL 165 (Calculated)) [facility] [id number] 20:51:00 Test Item Value Reference Range Interpretation Comments VLDL (test code = VLDL) [facility] [id number] 20:51:00 Test Item Value Reference Range Interpretation Comments Hgb A1C (test code = Hgb A1C) 5.5 [facility] [id number] 20:51:00 Test Item Value Reference Range Interpretation Comments UA Color (test code = Light Yellow UA Color) *NA*(09/15/19 2:51 PM) [facility] [id number] 20:51:00 Test Item Value Reference Range Interpretation Comments UA Turbidity (test code = Clear (09/15/19 2:51 UA Turbidity) PM) [facility] [id number] 20:51:00 Test Item Value Reference Range Interpretation Comments UA Spec Grav (test code = UA Spec 1.015 1 Grav) [facility] [id number] 20:51:00 Test Item Value Reference Range Interpretation Comments UA pH (test code = UA pH) 8.0 1 5.0-8.0 [facility] [id number] 20:51:00 Test Item Value Reference Range Interpretation Comments UA Protein (test code = UA Protein) 30 mg/dL [facility] [id number] 20:51:00 Test Item Value Reference Range Interpretation Comments UA Ketones (test code = UA Negative mg/dL Ketones) [facility] [id number] 20:51:00 Test Item Value Reference Range Interpretation Comments UA Bili (test code = Negative *NA*(09/15/19 UA Bili) 2:51 PM) [facility] [id number] 20:51:00 Test Item Value Reference Range Interpretation Comments UA Blood (test code = Small *ABN*(09/15/19 UA Blood) 2:51 PM) [facility] [id number] 20:51:00 Test Item Value Reference Range Interpretation Comments UA Urobilinogen (test code = UA no gt 0.1-1.0 Urobilinogen) [facility] [id number] 20:51:00 Test Item Value Reference Range Interpretation Comments UA Nitrite (test code Negative (09/15/19 2:51 = UA Nitrite) PM) [facility] [id number] 20:51:00 Test Item Value Reference Range Interpretation Comments UA Leuk Est (test Negative (09/15/19 2:51 code = UA Leuk Est) PM) [facility] AND [id number] 20:51:00 Test Item Value Reference Range Interpretation Comments UA WBC (test code = 3 See_Comment [Automa evelio message] The UA WBC) system which ge nerated this result transmit evelio reference range : <=5. The reference range was not used to interpr et this result as nataliia l/abnormal. [facility] [id number] 20:51:00 Test Item Value Reference Range Interpretation Comments UA RBC (test code = 16 See_Comment [Automa evelio message] The UA RBC) system which ge nerated this result transmit evelio reference range : <=2. The reference range was not used to interpr et this result as nataliia l/abnormal. [facility] AND [id number] 20:51:00 Test Item Value Reference Range Interpretation Comments UA Sq Epi (test code = UA Sq Epi) None Seen [facility] AND [id number] 20:51:00 Test Item Value Reference Range Interpretation Comments UA Glucose (test code = UA Glucose) 50mg/dl [facility] [id number] 20:51:00 Test Item Value Reference Range Interpretation Comments Trig (test code = Trig) 83 [facility] [id number] 20:51:00 Test Item Value Reference Range Interpretation Comments Chol (test code = Chol) 253 [id number] 20:51:00 Test Item Value Reference Range Interpretation Comments HDL (test code = HDL) 71 [facility] CenterByokplyBTBSYH5218-00-23 20:51:00 Test Item Value Reference Range Interpretation Comments CHD Risk (test code = CHD Risk) 3.56 1 3.90-5.80 [facility] [id number] 20:51:00 Test Item Value Reference Range Interpretation Comments LDL (Calculated) (test code = LDL 165 (Calculated)) [facility] [id number] 20:51:00 Test Item Value Reference Range Interpretation Comments VLDL (test code = VLDL) 17 [facility] [id number] 20:51:00 Test Item Value Reference Range Interpretation Comments Hgb A1C (test code = Hgb A1C) 5.5 [facility] AND [id number] 20:51:00 Test Item Value Reference Range Interpretation Comments UA Color (test code = Light Yellow UA Color) *NA*(09/15/19 2:51 PM) [facility] [id number] 20:51:00 Test Item Value Reference Range Interpretation Comments UA Turbidity (test code = Clear (09/15/19 2:51 UA Turbidity) PM) [facility] [id number] 20:51:00 Test Item Value Reference Range Interpretation Comments UA Spec Grav (test code = UA Spec 1.015 1 Grav) [facility] [id number] 20:51:00 Test Item Value Reference Range Interpretation Comments UA pH (test code = UA pH) 8.0 1 5.0-8.0 [facility] [id number] 20:51:00 Test Item Value Reference Range Interpretation Comments UA Protein (test code = UA Protein) 30 mg/dL [facility] [id number] 20:51:00 Test Item Value Reference Range Interpretation Comments UA Ketones (test code = UA Negative mg/dL Ketones) [facility] [id number] 20:51:00 Test Item Value Reference Range Interpretation Comments UA Bili (test code = Negative *NA*(09/15/19 UA Bili) 2:51 PM) [facility] [id number] 20:51:00 Test Item Value Reference Range Interpretation Comments UA Blood (test code = Small *ABN*(09/15/19 UA Blood) 2:51 PM) [facility] [id number] 20:51:00 Test Item Value Reference Range Interpretation Comments UA Urobilinogen (test code = UA no gt 0.1-1.0 Urobilinogen) [facility] [id number] 20:51:00 Test Item Value Reference Range Interpretation Comments UA Nitrite (test code Negative (09/15/19 2:51 = UA Nitrite) PM) [facility] [id number] 20:51:00 Test Item Value Reference Range Interpretation Comments UA Leuk Est (test Negative (09/15/19 2:51 code = UA Leuk Est) PM) [facility] [id number] 20:51:00 Test Item Value Reference Range Interpretation Comments UA WBC (test code = 3 See_Comment [Automa evelio message] The UA WBC) system which ge nerated this result transmit evelio reference range : <=5. The reference range was not used to interpr et this result as nataliia l/abnormal. [facility] [id number] 20:51:00 Test Item Value Reference Range Interpretation Comments UA RBC (test code = 16 See_Comment [Automa evelio message] The UA RBC) system which ge nerated this result transmit evelio reference range : <=2. The reference range was not used to interpr et this result as nataliia l/abnormal. [facility] AND [id number] 20:51:00 Test Item Value Reference Range Interpretation Comments UA Sq Epi (test code = UA Sq Epi) None Seen [facility] CentereduardoATLANTIC REHABILIT[facility] AND [id number] 20:51:00 Test Item Value Reference Range Interpretation Comments UA Glucose (test code = UA Glucose) 50mg/dl [facility] [id number] 20:51:00 Test Item Value Reference Range Interpretation Comments Trig (test code = Trig) 83 [facility] [id number] 20:51:00 Test Item Value Reference Range Interpretation Comments Chol (test code = Chol) 253 [facility] [id number] 20:51:00 Test Item Value Reference Range Interpretation Comments HDL (test code = HDL) 71 [facility] [id number] 20:51:00 Test Item Value Reference Range Interpretation Comments CHD Risk (test code = CHD Risk) 3.56 1 3.90-5.80 [facility] CenterKkbyjtpWIRIXH7064-12-98 20:51:00 Test Item Value Reference Range Interpretation Comments LDL (Calculated) (test code = LDL 165 (Calculated)) [facility] CenterJwqowygOEQIYE1278-83-45 20:51:00 Test Item Value Reference Range Interpretation Comments VLDL (test code = VLDL) 17 [facility] [id number] 20:51:00 Test Item Value Reference Range Interpretation Comments Hgb A1C (test code = Hgb A1C) 5.5 [facility] AND [id number] 20:51:00 Test Item Value Reference Range Interpretation Comments UA Color (test code = Light Yellow UA Color) *NA*(09/15/19 2:51 PM) [facility] [id number] 20:51:00 Test Item Value Reference Range Interpretation Comments UA Turbidity (test code = Clear (09/15/19 2:51 UA Turbidity) PM) [facility] [id number] 20:51:00 Test Item Value Reference Range Interpretation Comments UA Spec Grav (test code = UA Spec 1.015 1 Grav) [facility] [id number] 20:51:00 Test Item Value Reference Range Interpretation Comments UA pH (test code = UA pH) 8.0 1 5.0-8.0 [facility] [id number] 20:51:00 Test Item Value Reference Range Interpretation Comments UA Protein (test code = UA Protein) 30 mg/dL [facility] [id number] 20:51:00 Test Item Value Reference Range Interpretation Comments UA Ketones (test code = UA Negative mg/dL Ketones) [facility] [id number] 20:51:00 Test Item Value Reference Range Interpretation Comments UA Bili (test code = Negative *NA*(09/15/19 UA Bili) 2:51 PM) [facility] [id number] 20:51:00 Test Item Value Reference Range Interpretation Comments UA Blood (test code = Small *ABN*(09/15/19 UA Blood) 2:51 PM) [facility] [id number] 20:51:00 Test Item Value Reference Range Interpretation Comments UA Urobilinogen (test code = UA no gt 0.1-1.0 Urobilinogen) [facility] [id number] 20:51:00 Test Item Value Reference Range Interpretation Comments UA Nitrite (test code Negative (09/15/19 2:51 = UA Nitrite) PM) [facility] [id number] 20:51:00 Test Item Value Reference Range Interpretation Comments UA Leuk Est (test Negative (09/15/19 2:51 code = UA Leuk Est) PM) [facility] [id number] 20:51:00 Test Item Value Reference Range Interpretation Comments UA WBC (test code = 3 See_Comment [Automa evelio message] The UA WBC) system which ge nerated this result transmit evelio reference range : <=5. The reference range was not used to interpr et this result as nataliia l/abnormal. [facility] [id number] 20:51:00 Test Item Value Reference Range Interpretation Comments UA RBC (test code = 16 See_Comment [Automa evelio message] The UA RBC) system which nerated this result transmit evelio reference range : <=2. The reference range was not used to interpr et this result as nataliia l/abnormal. [facility] [id number] 20:51:00 Test Item Value Reference Range Interpretation Comments UA Sq Epi (test code = UA Sq Epi) None Seen [facility]annALVAR[facility] AND [id number] 20:51:00 Test Item Value Reference Range Interpretation Comments UA Glucose (test code = UA Glucose) 50mg/dl [facility] EiiabtkDZQNGC1527-43-03 20:51:00 Test Item Value Reference Range Interpretation Comments Trig (test code = Trig) 83 [facility] [id number] 20:51:00 Test Item Value Reference Range Interpretation Comments Chol (test code = Chol) 253 [facility] CenterHxwvlwjFLWUCX1883-52-15 20:51:00 Test Item Value Reference Range Interpretation Comments HDL (test code = HDL) 71 [facility] CenterWlnwedaVDYULF3509-11-96 20:51:00 Test Item Value Reference Range Interpretation Comments CHD Risk (test code = CHD Risk) 3.56 1 3.90-5.80 [facility] [id number] 20:51:00 Test Item Value Reference Range Interpretation Comments LDL (Calculated) (test code = LDL 165 (Calculated)) [facility] CenterOhkhusyCDXKUG5336-27-21 20:51:00 Test Item Value Reference Range Interpretation Comments VLDL (test code = VLDL) 17 1 [facility] CenterannSPECIAL [id number] 20:51:00 Test Item Value Reference Range Interpretation Comments Hgb A1C (test code = Hgb A1C) 5.5 [facility] [id number] 20:51:00 Test Item Value Reference Range Interpretation Comments UA Color (test code = Light Yellow UA Color) *NA*(09/15/19 2:51 PM) [facility] [id number] 20:51:00 Test Item Value Reference Range Interpretation Comments UA Turbidity (test code = Clear (09/15/19 2:51 UA Turbidity) PM) [facility] [id number] 20:51:00 Test Item Value Reference Range Interpretation Comments UA Spec Grav (test code = UA Spec 1.015 1 Grav) [facility] [id number] 20:51:00 Test Item Value Reference Range Interpretation Comments UA pH (test code = UA pH) 8.0 1 5.0-8.0 [facility] [id number] 20:51:00 Test Item Value Reference Range Interpretation Comments UA Protein (test code = UA Protein) 30 mg/dL [facility] [id number] 20:51:00 Test Item Value Reference Range Interpretation Comments UA Ketones (test code = UA Negative mg/dL Ketones) [facility] [id number] 20:51:00 Test Item Value Reference Range Interpretation Comments UA Bili (test code = Negative *NA*(09/15/19 UA Bili) 2:51 PM) [facility] [id number] 20:51:00 Test Item Value Reference Range Interpretation Comments UA Blood (test code = Small *ABN*(09/15/19 UA Blood) 2:51 PM) [facility] [id number] 20:51:00 Test Item Value Reference Range Interpretation Comments UA Urobilinogen (test code = UA no gt 0.1-1.0 Urobilinogen) [facility] [id number] 20:51:00 Test Item Value Reference Range Interpretation Comments UA Nitrite (test code Negative (09/15/19 2:51 = UA Nitrite) PM) [facility] [id number] 20:51:00 Test Item Value Reference Range Interpretation Comments UA Leuk Est (test Negative (09/15/19 2:51 code = UA Leuk Est) PM) [facility] [id number] 20:51:00 Test Item Value Reference Range Interpretation Comments UA WBC (test code = 3 See_Comment [Automa evelio message] The UA WBC) system which ge nerated this result transmit evelio reference range : <=5. The reference range was not used to interpr et this result as nataliia l/abnormal. [facility] [id number] 20:51:00 Test Item Value Reference Range Interpretation Comments UA RBC (test code = 16 See_Comment [Automa evelio message] The UA RBC) system which ge nerated this result transmit evelio reference range : <=2. The reference range was not used to interpr et this result as nataliia l/abnormal. [facility] [id number] 20:51:00 Test Item Value Reference Range Interpretation Comments UA Sq Epi (test code = UA Sq Epi) None [facility]en [facility] [id number] 20:51:00 Test Item Value Reference Range Interpretation Comments UA Glucose (test code = UA Glucose) 50mg/dl [facility] AzhmwhxSVBZCZ8575-66-11 20:51:00 Test Item Value Reference Range Interpretation Comments Trig (test code = Trig) 83 [facility] CenterDddgtbfPUORVM1139-13-30 20:51:00 Test Item Value Reference Range Interpretation Comments Chol (test code = Chol) 253 [facility] CenterEgiaijvWMNXXD6426-92-49 20:51:00 Test Item Value Reference Range Interpretation Comments HDL (test code = HDL) 71 [facility] CenterRmmyheeJPXSAX7703-05-68 20:51:00 Test Item Value Reference Range Interpretation Comments CHD Risk (test code = CHD Risk) 3.56 1 3.90-5.80 [facility] CenterAngignmYLDUES1686-77-80 20:51:00 Test Item Value Reference Range Interpretation Comments LDL (Calculated) (test code = LDL 165 (Calculated)) [facility] CenterVgyrazcEVNVYE7972-75-37 20:51:00 Test Item Value Reference Range Interpretation Comments VLDL (test code = VLDL) 17 1 [facility] [id number] 20:51:00 Test Item Value Reference Range Interpretation Comments Hgb A1C (test code = Hgb A1C) 5.5 [facility] [id number] 20:51:00 Test Item Value Reference Range Interpretation Comments UA Color (test code = Light Yellow UA Color) *NA*(09/15/19 2:51 PM) [facility] [id number] 20:51:00 Test Item Value Reference Range Interpretation Comments UA Turbidity (test code = Clear (09/15/19 2:51 UA Turbidity) PM) [facility] [id number] 20:51:00 Test Item Value Reference Range Interpretation Comments UA Spec Grav (test code = UA Spec 1.015 1 Grav) [facility] [id number] 20:51:00 Test Item Value Reference Range Interpretation Comments UA pH (test code = UA pH) 8.0 1 5.0-8.0 [facility] [id number] 20:51:00 Test Item Value Reference Range Interpretation Comments UA Protein (test code = UA Protein) 30 mg/dL [facility] [id number] 20:51:00 Test Item Value Reference Range Interpretation Comments UA Ketones (test code = UA Negative mg/dL Ketones) [facility] [id number] 20:51:00 Test Item Value Reference Range Interpretation Comments UA Bili (test code = Negative *NA*(09/15/19 UA Bili) 2:51 PM) [facility] [id number] 20:51:00 Test Item Value Reference Range Interpretation Comments UA Blood (test code = Small *ABN*(09/15/19 UA Blood) 2:51 PM) [facility] [id number] 20:51:00 Test Item Value Reference Range Interpretation Comments UA Urobilinogen (test code = UA no gt 0.1-1.0 Urobilinogen) [facility] [id number] 20:51:00 Test Item Value Reference Range Interpretation Comments UA Nitrite (test code Negative (09/15/19 2:51 = UA Nitrite) PM) [facility] [id number] 20:51:00 Test Item Value Reference Range Interpretation Comments UA Leuk Est (test Negative (09/15/19 2:51 code = UA Leuk Est) PM) [facility] [id number] 20:51:00 Test Item Value Reference Range Interpretation Comments UA WBC (test code = 3 See_Comment [Automa evelio message] The UA WBC) system which ge nerated this result transmit evelio reference range : <=5. The reference range was not used to interpr et this result as nataliia l/abnormal. [facility] [id number] 20:51:00 Test Item Value Reference Range Interpretation Comments UA RBC (test code = 16 See_Comment [Automa evelio message] The UA RBC) system which ge nerated this result transmit evelio reference range : <=2. The reference range was not used to interpr et this result as nataliia l/abnormal. [facility]ann[facility] [id number] 20:51:00 Test Item Value Reference Range Interpretation Comments UA Sq Epi (test code = UA Sq Epi) None Seen [facility]ann[facility] [id number] 20:51:00 Test Item Value Reference Range Interpretation Comments UA Glucose (test code = UA Glucose) 50mg/dl [facility] CenterKiuxtqmOZORCQ2555-99-70 20:51:00 Test Item Value Reference Range Interpretation Comments Trig (test code = Trig) 83 [facility] CenterYjpddbdVLSYDS0783-42-79 20:51:00 Test Item Value Reference Range Interpretation Comments Chol (test code = Chol) 253 [facility] CenterOnrbydoKJJPEC7279-69-28 20:51:00 Test Item Value Reference Range Interpretation Comments HDL (test code = HDL) 71 [facility] CentennialKxelvwzZFGZHG2375-00-08 20:51:00 Test Item Value Reference Range Interpretation Comments CHD Risk (test code = CHD Risk) 3.56 1 3.90-5.80 [facility] CenterJniungaWQOSWW5757-65-38 20:51:00 Test Item Value Reference Range Interpretation Comments LDL (Calculated) (test code = LDL 165 (Calculated)) [facility] CenterWoqpkyuXIMLFA0580-36-48 20:51:00 Test Item Value Reference Range Interpretation Comments VLDL (test code = VLDL) 17 1 [facility]SPE[facility] [id number] 20:51:00 Test Item Value Reference Range Interpretation Comments Hgb A1C (test code = Hgb A1C) 5.5 [facility]annAT[facility] [id number] 20:51:00 Test Item Value Reference Range Interpretation Comments UA Color (test code = Light Yellow UA Color) *NA*(09/15/19 2:51 PM) [facility] [id number] 20:51:00 Test Item Value Reference Range Interpretation Comments UA Turbidity (test code = Clear (09/15/19 2:51 UA Turbidity) PM) [facility] [id number] 20:51:00 Test Item Value Reference Range Interpretation Comments UA Spec Grav (test code = UA Spec 1.015 1 Grav) [facility] [id number] 20:51:00 Test Item Value Reference Range Interpretation Comments UA pH (test code = UA pH) 8.0 1 5.0-8.0 [facility] [id number] 20:51:00 Test Item Value Reference Range Interpretation Comments UA Protein (test code = UA Protein) 30 mg/dL [facility] [id number] 20:51:00 Test Item Value Reference Range Interpretation Comments UA Ketones (test code = UA Negative mg/dL Ketones) [facility] [id number] 20:51:00 Test Item Value Reference Range Interpretation Comments UA Bili (test code = Negative *NA*(09/15/19 UA Bili) 2:51 PM) [facility] [id number] 20:51:00 Test Item Value Reference Range Interpretation Comments UA Blood (test code = Small *ABN*(09/15/19 UA Blood) 2:51 PM) [facility] [id number] 20:51:00 Test Item Value Reference Range Interpretation Comments UA Urobilinogen (test code = UA no gt 0.1-1.0 Urobilinogen) [facility] [id number] 20:51:00 Test Item Value Reference Range Interpretation Comments UA Nitrite (test code Negative (09/15/19 2:51 = UA Nitrite) PM) [facility] [id number] 20:51:00 Test Item Value Reference Range Interpretation Comments UA Leuk Est (test Negative (09/15/19 2:51 code = UA Leuk Est) PM) [facility] [id number] 20:51:00 Test Item Value Reference Range Interpretation Comments UA WBC (test code = 3 See_Comment [Automa evelio message] The UA WBC) system which ge nerated this result transmit evelio reference range : <=5. The reference range was not used to interpr et this result as nataliia l/abnormal. [facility] [id number] 20:51:00 Test Item Value Reference Range Interpretation Comments UA RBC (test code = 16 See_Comment [Automa evelio message] The UA RBC) system which ge nerated this result transmit evelio reference range : <=2. The reference range was not used to interpr et this result as nataliia l/abnormal. [facility] [id number] 20:51:00 Test Item Value Reference Range Interpretation Comments UA Sq Epi (test code = UA Sq Epi) None Seen [facility] [id number] 20:51:00 Test Item Value Reference Range Interpretation Comments UA Glucose (test code = UA Glucose) 50mg/dl [facility] SmlvltnDGCWUA6358-22-33 20:51:00 Test Item Value Reference Range Interpretation Comments Trig (test code = Trig) 83 [facility] [id number] 20:51:00 Test Item Value Reference Range Interpretation Comments Chol (test code = Chol) 253 [facility] [id number] 20:51:00 Test Item Value Reference Range Interpretation Comments HDL (test code = HDL) 71 [facility] [id number] 20:51:00 Test Item Value Reference Range Interpretation Comments CHD Risk (test code = CHD Risk) 3.56 1 3.90-5.80 [facility] MqsktylIULRGC8159-39-47 20:51:00 Test Item Value Reference Range Interpretation Comments LDL (Calculated) (test code = LDL 165 (Calculated)) [facility] DuxapxiXLWCCU7603-76-72 20:51:00 Test Item Value Reference Range Interpretation Comments VLDL (test code = VLDL) 17 1 [facility] [id number] 20:51:00 Test Item Value Reference Range Interpretation Comments Hgb A1C (test code = Hgb A1C) 5.5 [facility] [id number] 20:51:00 Test Item Value Reference Range Interpretation Comments UA Color (test code = Light Yellow UA Color) *NA*(09/15/19 2:51 PM) [facility] [id number] 20:51:00 Test Item Value Reference Range Interpretation Comments UA Turbidity (test code = Clear (09/15/19 2:51 UA Turbidity) PM) [facility] [id number] 20:51:00 Test Item Value Reference Range Interpretation Comments UA Spec Grav (test code = UA Spec 1.015 1 Grav) [facility] [id number] 20:51:00 Test Item Value Reference Range Interpretation Comments UA pH (test code = UA pH) 8.0 1 5.0-8.0 [facility] [id number] 20:51:00 Test Item Value Reference Range Interpretation Comments UA Protein (test code = UA Protein) 30 mg/dL [facility] [id number] 20:51:00 Test Item Value Reference Range Interpretation Comments UA Ketones (test code = UA Negative mg/dL Ketones) [facility] [id number] 20:51:00 Test Item Value Reference Range Interpretation Comments UA Bili (test code = Negative *NA*(09/15/19 UA Bili) 2:51 PM) [facility] [id number] 20:51:00 Test Item Value Reference Range Interpretation Comments UA Blood (test code = Small *ABN*(09/15/19 UA Blood) 2:51 PM) [facility] [id number] 20:51:00 Test Item Value Reference Range Interpretation Comments UA Urobilinogen (test code = UA no gt 0.1-1.0 Urobilinogen) [facility] [id number] 20:51:00 Test Item Value Reference Range Interpretation Comments UA Nitrite (test code Negative (09/15/19 2:51 = UA Nitrite) PM) [facility] [id number] 20:51:00 Test Item Value Reference Range Interpretation Comments UA Leuk Est (test Negative (09/15/19 2:51 code = UA Leuk Est) PM) [facility] [id number] 20:51:00 Test Item Value Reference Range Interpretation Comments UA WBC (test code = 3 See_Comment [Automa evelio message] The UA WBC) system which ge nerated this result transmit evelio reference range : <=5. The reference range was not used to interpr et this result as nataliia l/abnormal. [facility] [id number] 20:51:00 Test Item Value Reference Range Interpretation Comments UA RBC (test code = 16 See_Comment [Automa evelio message] The UA RBC) system which ge nerated this result transmit evelio reference range : <=2. The reference range was not used to interpr et this result as nataliia l/abnormal. [facility] [id number] 20:51:00 Test Item Value Reference Range Interpretation Comments UA Sq Epi (test code = UA Sq Epi) None Seen [facility] AND [id number] 20:51:00 Test Item Value Reference Range Interpretation Comments UA Glucose (test code = UA Glucose) 50mg/dl [facility] CentennialWlpacwqLOEFQU5234-93-53 20:51:00 Test Item Value Reference Range Interpretation Comments Trig (test code = Trig) 83 [id number] 20:51:00 Test Item Value Reference Range Interpretation Comments Chol (test code = Chol) 253 [facility] EdinburgVmcyxmkATAVLZ8974-94-41 20:51:00 Test Item Value Reference Range Interpretation Comments HDL (test code = HDL) 71 [facility] EdinburgHxklezzLDEEHD9869-85-50 20:51:00 Test Item Value Reference Range Interpretation Comments CHD Risk (test code = CHD Risk) 3.56 1 3.90-5.80 [facility]ennialCARDIAC [id number] 17:55:35 Test Item Value Reference Range Interpretation Comments Total CK (test code = Total CK) 169 12-191 [facility]ennialCARJ[facility] [id number] 17:55:35 Test Item Value Reference Range Interpretation Comments Troponin-I (test code no gt See_Comment [Auto mated message] The = Troponin-I) system which g enerated this result transmit evelio reference range : <=0.40. The reference r natasha was not used to interpr et this result as nataliia l/abnormal. [facility]EhmobepLOOMOSZANA7360-39-92 17:55:35 Test Item Value Reference Range Interpretation Comments PT (test code = PT) 12.2 s 12.0-14.7 [facility] JacksonKzmrsbcABCJXMXCEE7278-39-12 17:55:35 Test Item Value Reference Range Interpretation Comments INR (test code = INR) 0.91 1 0.85-1.17 [facility] JacksonYaxmlgbOUQYLEVJDZ3216-58-10 17:55:35 Test Item Value Reference Range Interpretation Comments PTT (test code = PTT) 23.2 s 22.9-35.8 [facility] JacksonRqumlmnORSSRUROWC9850-76-66 17:55:35 Test Item Value Reference Range Interpretation Comments RBC Morph (test code = Normal (09/15/19 11:55 RBC Morph) AM) [facility] HospitalYxznyviQDUZLVRUPV4359-76-61 17:55:35 Test Item Value Reference Range Interpretation Comments Plt Morph (test code = Normal (09/15/19 11:55 Plt Morph) AM) [facility]CARD[facility]AC [id number] 17:55:35 Test Item Value Reference Range Interpretation Comments Total CK (test code = Total CK) 169 [facility] [id number] 17:55:35 Test Item Value Reference Range Interpretation Comments Troponin-I (test code no gt See_Comment [Auto mated message] The = Troponin-I) system which g enerated this result transmit evelio reference range : <=0.40. The reference r natasha was not used to interpr et this result as nataliia l/abnormal. [facility] CentennialJvzhwkpEQKSHDIWXX0837-29-05 17:55:35 Test Item Value Reference Range Interpretation Comments PT (test code = PT) 12.2 s 12.0-14.7 [facility] JacksonEosimicHXUXJTBVSW5095-89-59 17:55:35 Test Item Value Reference Range Interpretation Comments INR (test code = INR) 0.91 1 0.85-1.17 [facility] JacksonDcdqnjuAQDPLMOPXF3983-40-30 17:55:35 Test Item Value Reference Range Interpretation Comments PTT (test code = PTT) 23.2 s 22.9-35.8 [facility] CentennialKykxgrtYIWZTIYJET6944-60-07 17:55:35 Test Item Value Reference Range Interpretation Comments RBC Morph (test code = Normal (09/15/19 11:55 RBC Morph) AM) [facility] JacksonQgdaremMCSEQBWKTG2504-39-86 17:55:35 Test Item Value Reference Range Interpretation Comments Plt Morph (test code = Normal (09/15/19 11:55 Plt Morph) AM) [facility] [id number] 17:55:35 Test Item Value Reference Range Interpretation Comments Total CK (test code = Total CK) 169 [facility] [id number] 17:55:35 Test Item Value Reference Range Interpretation Comments Troponin-I (test code no gt See_Comment [Auto mated message] The = Troponin-I) system which g enerated this result transmit evelio reference range : <=0.40. The reference r natasha was not used to interpr et this result as nataliia l/abnormal. [facility] CentennialCoaupdcPYYYWBYSSX5341-08-79 17:55:35 Test Item Value Reference Range Interpretation Comments PT (test code = PT) 12.2 s 12.0-14.7 [facility] JacksonOvifhhaNFAMEWJOFS6679-33-16 17:55:35 Test Item Value Reference Range Interpretation Comments INR (test code = INR) 0.91 1 0.85-1.17 [facility] JacksonAqxfquqPPOWGMGRWL2308-10-40 17:55:35 Test Item Value Reference Range Interpretation Comments PTT (test code = PTT) 23.2 s 22.9-35.8 [facility] JacksonUfxkmrwLUCUFMJBMK5394-94-92 17:55:35 Test Item Value Reference Range Interpretation Comments RBC Morph (test code = Normal (09/15/19 11:55 RBC Morph) AM) [facility] JacksonRvdihhiZNYTKAOTVO5012-13-93 17:55:35 Test Item Value Reference Range Interpretation Comments Plt Morph (test code = Normal (09/15/19 11:55 Plt Morph) AM) [facility] [id number] 17:55:35 Test Item Value Reference Range Interpretation Comments Total CK (test code = Total CK) 169 12-191 [facility] [id number] 17:55:35 Test Item Value Reference Range Interpretation Comments Troponin-I (test code no gt See_Comment [Auto mated message] The = Troponin-I) system which g enerated this result transmit evelio reference range : <=0.40. The reference r natasha was not used to interpr et this result as nataliia l/abnormal. [facility] HospitalIrwuvljMIVCXYZJHM9525-17-36 17:55:35 Test Item Value Reference Range Interpretation Comments PT (test code = PT) 12.2 s 12.0-14.7 [facility] HospitalXsclwcjQKIYAQUAJT3206-41-94 17:55:35 Test Item Value Reference Range Interpretation Comments INR (test code = INR) 0.91 1 0.85-1.17 [facility] JacksonVvzwregUZBCODSOPM8947-61-37 17:55:35 Test Item Value Reference Range Interpretation Comments PTT (test code = PTT) 23.2 s 22.9-35.8 [facility] JacksonBbbegfdKGFYQTDUXH5998-17-77 17:55:35 Test Item Value Reference Range Interpretation Comments RBC Morph (test code = Normal (09/15/19 11:55 RBC Morph) AM) [facility] JacksonGvjwzmbQYKCQLJIMC0483-62-85 17:55:35 Test Item Value Reference Range Interpretation Comments Plt Morph (test code = Normal (09/15/19 11:55 Plt Morph) AM) [facility] CenterannCARDIAC LLUNNNR3955-96-09 17:55:35 Test Item Value Reference Range Interpretation Comments Total CK (test code = Total CK) 169 12-191 [facility] UIFYWRM8422-65-86 17:55:35 Test Item Value Reference Range Interpretation Comments Troponin-I (test code no gt See_Comment [Auto mated message] The = Troponin-I) system which g enerated this result transmit evelio reference range : <=0.40. The reference r natasha was not used to interpr et this result as nataliia l/abnormal. [facility] CenterShwpmrnNWOOPTXQFB7986-66-71 17:55:35 Test Item Value Reference Range Interpretation Comments PT (test code = PT) 12.2 s 12.0-14.7 [facility] JacksonOseatxuMEYDUZDGOT8258-28-72 17:55:35 Test Item Value Reference Range Interpretation Comments INR (test code = INR) 0.91 1 0.85-1.17 [facility] CentennialHxadcadOFILWVOQIX5419-26-19 17:55:35 Test Item Value Reference Range Interpretation Comments PTT (test code = PTT) 23.2 s 22.9-35.8 [facility] CenterLumsxltEKPNNFLPJZ6369-61-47 17:55:35 Test Item Value Reference Range Interpretation Comments RBC Morph (test code = Normal (09/15/19 11:55 RBC Morph) AM) [facility] CentennialPkqjcdlTUKYHYAEUS7460-73-64 17:55:35 Test Item Value Reference Range Interpretation Comments Plt Morph (test code = Normal (09/15/19 11:55 Plt Morph) AM) [facility]AC [id number] 17:55:35 Test Item Value Reference Range Interpretation Comments Total CK (test code = Total CK) 169 12-191 [facility] CentennialCARAC DAUJCST9886-40-47 17:55:35 Test Item Value Reference Range Interpretation Comments Troponin-I (test code no gt See_Comment [Auto mated message] The = Troponin-I) system which g enerated this result transmit evelio reference range : <=0.40. The reference r natasha was not used to interpr et this result as nataliia l/abnormal. [facility] JacksonKdixgldTICGINOBDP7295-30-76 17:55:35 Test Item Value Reference Range Interpretation Comments PT (test code = PT) 12.2 s 12.0-14.7 [facility] CenterJnerciuHFVMJSSWNB8707-13-57 17:55:35 Test Item Value Reference Range Interpretation Comments INR (test code = INR) 0.91 1 0.85-1.17 [facility] JacksonAxknyqfMVPAMZHMFF8857-35-09 17:55:35 Test Item Value Reference Range Interpretation Comments PTT (test code = PTT) 23.2 s 22.9-35.8 [facility] JacksonYaeqiaoPEYUWUAPFF3530-54-41 17:55:35 Test Item Value Reference Range Interpretation Comments RBC Morph (test code = Normal (09/15/19 11:55 RBC Morph) AM) [facility] JacksonJyvhjhlJWNPVMOSON3681-67-71 17:55:35 Test Item Value Reference Range Interpretation Comments Plt Morph (test code = Normal (09/15/19 11:55 Plt Morph) AM) [facility] [id number] 17:55:35 Test Item Value Reference Range Interpretation Comments Total CK (test code = Total CK) 169 12-191 [facility] [id number] 17:55:35 Test Item Value Reference Range Interpretation Comments Troponin-I (test code no gt See_Comment [Auto mated message] The = Troponin-I) system which g enerated this result transmit evelio reference range : <=0.40. The reference r natasha was not used to interpr et this result as nataliia l/abnormal. [id number] 17:55:35 Test Item Value Reference Range Interpretation Comments PT (test code = PT) 12.2 s 12.0-14.7 [id number] 17:55:35 Test Item Value Reference Range Interpretation Comments INR (test code = INR) 0.91 1 0.85-1.17 [facility] [id number] 17:55:35 Test Item Value Reference Range Interpretation Comments PTT (test code = PTT) 23.2 s 22.9-35.8 [facility] [id number] 17:55:35 Test Item Value Reference Range Interpretation Comments RBC Morph (test code = Normal (09/15/19 11:55 RBC Morph) AM) [facility] [id number] 17:55:35 Test Item Value Reference Range Interpretation Comments Plt Morph (test code = Normal (09/15/19 11:55 Plt Morph) AM) [facility] [id number] 17:55:35 Test Item Value Reference Range Interpretation Comments Total CK (test code = Total CK) 169 12-191 [facility] [id number] 17:55:35 Test Item Value Reference Range Interpretation Comments Troponin-I (test code no gt See_Comment [Auto mated message] The = Troponin-I) system which g enerated this result transmit evelio reference range : <=0.40. The reference r natasha was not used to interpr et this result as nataliia l/abnormal. [facility] [id number] 17:55:35 Test Item Value Reference Range Interpretation Comments PT (test code = PT) 12.2 s 12.0-14.7 [facility] [id number] 17:55:35 Test Item Value Reference Range Interpretation Comments INR (test code = INR) 0.91 1 0.85-1.17 [facility] [id number] 17:55:35 Test Item Value Reference Range Interpretation Comments PTT (test code = PTT) 23.2 s 22.9-35.8 [facility] [id number] 17:55:35 Test Item Value Reference Range Interpretation Comments RBC Morph (test code = Normal (09/15/19 11:55 RBC Morph) AM) [facility] [id number] 17:55:35 Test Item Value Reference Range Interpretation Comments Plt Morph (test code = Normal (09/15/19 11:55 Plt Morph) AM) [facility] Notes Date/Time Note Provider Source 2019-09-23 EXAM: CT BRAIN WITHOUT CONTRAST [facility] 22:19:00-00:00 DATE: 09/23/2019 22:20 [facility] Center INDICATION: - Stability scan prior to starting A C. hx of RMCA stroke COMPARISON: Brain MRI dated 09/16/2019 TECHNIQUE: Routine axial CT images of the brain were obtained. Reformatted images in the sagittal and coronal plane were included. IV contrast: None. DLP: 1046 mGy-cm FINDINGS: The distribution of the infa rcts in the right MCA territory remains unchanged as compared to the previous MRI. Areas of hemorrhagic transformation in the frontal and parietal lobes are also again demons trated. The small infarct in the left cerebral hemisphere is not clearly visualized in the CT. The ventricles and sulci are prominent. The basal cisterns are patent. IMPRESSION: Expected evolution of the in farct in the right MCA territory, with areas of hemorrhagic transformation in the frontal and parietal lobes. 2019-09-23 EXAM: CT BRAIN WITHOUT CONTRAST [facility] 22:19:00-00:00 DATE: 09/23/2019 22:20 [facility] Center INDICATION: - Stability scan prior to starting A C. hx of RMCA stroke COMPARISON: Brain MRI dated 09/16/2019 TECHNIQUE: Routine axial CT images of the brain were obtained. Reformatted images in the sagittal and coronal plane were included. IV contrast: None. DLP: 1046 mGy-cm FINDINGS: The distribution of the infa rcts in the right MCA territory remains unchanged as compared to the previous MRI. Areas of hemorrhagic transformation in the frontal and parietal lobes are also again demons trated. The small infarct in the left cerebral hemisphere is not clearly visualized in the CT. The ventricles and sulci are prominent. The basal cisterns are patent. IMPRESSION: Expected evolution of the in farct in the right MCA territory, with areas of hemorrhagic transformation in the frontal and parietal lobes. 2019-09-17 EXAM: XR CHEST 1 VIEW [facility] 19:16:00-00:00 DATE: 09/17/2019 16:54 [facility] Center INDICATION: - fever COMPARISON: 09/15/2019 TECHNIQUE: AP chest. IMPRESSION: Stable enlarged cardiomedias tinal silhouette and atherosclerotic changes in the aorta. No definitive pleural effusions. No pneumothorax. Low lung volumes with bronchovascular crowding. Patchy bilateral retrocardiac opacities may r epresent atelectasis, aspiration and/or pneumonia. Stable osseous structures. CONCLUSION: 1. Patchy bilateral retrocar diac opacities atelectasis, aspiration and/or pneumonia. 2019-09-17 EXAM: XR CHEST 1 VIEW [facility] 19:16:00-00:00 DATE: 09/17/2019 16:54 [facility] Center INDICATION: - fever COMPARISON: 09/15/2019 TECHNIQUE: AP chest. IMPRESSION: Stable enlarged cardiomedias tinal silhouette and atherosclerotic changes in the aorta. No definitive pleural effusions. No pneumothorax. Low lung volumes with bronchovascular crowding. Patchy bilateral retrocardiac opacities may r epresent atelectasis, aspiration and/or pneumonia. Stable osseous structures. CONCLUSION: 1. Patchy bilateral retrocar diac opacities atelectasis, aspiration and/or pneumonia. 2019-09-16 EXAM: MRI BRAIN WITHOUT CONTRAST [facility] 05:30:00-00:00 DATE: 09/15/2019 13:54 [facility] INDICATION: - R MCA stroke s/p tPA ADDITIONAL INFORMATION: 84-y ear-old female, found down, left-sided weakness and right gaze deviation, CTA head with distal right M2 occlusion, status post TPA bolus. COMPARISON: CT brain 09/15/2019, CTA brain 09/15. TECHNIQUE: Multiplanar, multisequence MRI of the brain without contrast. IV contrast: None. FINDINGS: There is cytotoxic edema wit h diffusion restriction involving the right MCA territory including the right basal ganglia, right temporal, right frontal and parietal lobes. Hemorrhagic transformation is i dentified with confluent petechiae in the fronta l and parietal lobes. Smaller areas of diffusion r estriction are demonstrated in the left posterior frontal cortex adjacent to the sulci. Scattered T2 FLAIR hyperinte nsities are noted compatible with microvascular ischemic changes. There is no mass lesion or structural abnormalit y. The ventricles and extra-axial spaces are normal . The intracranial arterial and venous str uctures demonstrate normal flow voids. The visible paranasal sinuses and skull base are unremarkable. IMPRESSION: 1. Diffusion restriction inv olving multiple regions of the right MCA distributions compatible with acute ischemia. 2. Hemorrhagic transformation of infarct (HT2). 3. Smaller foci of restricte d diffusion in the region of the left posterior frontal cortex of acute ischemia and is concerning for a cardioembolic source. 2019-09-16 EXAM: MRI BRAIN WITHOUT CONTRAST [facility] 05:30:00-00:00 DATE: 09/15/2019 13:54 [facility] Center INDICATION: - R MCA stroke s/p tPA ADDITIONAL INFORMATION: 84-y ear-old female, found down, left-sided weakness and right gaze deviation, CTA head with distal right M2 occlusion, status post TPA bolus. COMPARISON: CT brain 09/15/2019, CTA brain 09/15. TECHNIQUE: Multiplanar, multisequence MRI of the brain without contrast. IV contrast: None. FINDINGS: There is cytotoxic edema wit h diffusion restriction involving the right MCA territory including the right basal ganglia, right temporal, right frontal and parietal lobes. Hemorrhagic transformation is i dentified with confluent petechiae in the fronta l and parietal lobes. Smaller areas of diffusion r estriction are demonstrated in the left posterior frontal cortex adjacent to the sulci. Scattered T2 FLAIR hyperinte nsities are noted compatible with microvascular ischemic changes. There is no mass lesion or structural abnormalit y. The ventricles and extra-axial spaces are normal . The intracranial arterial and venous str uctures demonstrate normal flow voids. The visible paranasal sinuses and skull base are unremarkable. IMPRESSION: 1. Diffusion restriction inv olving multiple regions of the right MCA distributions compatible with acute ischemia. 2. Hemorrhagic transformation of infarct (HT2). 3. Smaller foci of restricte d diffusion in the region of the left posterior frontal cortex of acute ischemia and is concerning for a cardioembolic source. 2019-09-15 EXAM: CT HEAD WITHOUT CONTRAST [facility] 19:35:00-00:00 DATE: 09/15/2019 740 PM [facility] Cente r INDICATION: 84 years old Female patient with his tory of AMS after tpa. TECHNIQUE: Multiple axial im ages were obtained through the head from vertex to the skull base. Axial bone algorithm reconstruction images are provided. COMPARISON: Prior CT scan of the head dated 09/15 11:59 AM FINDINGS: Interval increase conspicuit y of patient's known right MCA territory infarction. Stable few scattered focal r ight cerebral hemispheric hypodensities which may represent intraluminal clot and nonspecific focal calcification. Overall no new parenchymal a bnormality or acute intracranial hemorrhage is identified. There is no significant mass effect and midline shift. Overall ventricles are stable in size and config uration. Basal cisterns are grossly p reserved. There is no evidence of downward herniation at the level of foramen magnum. No interval significant adve rse changes in visualized paranasal sinuses, orbits, mastoid cavities and calvarium. IMPRESSION: 1. Interval increase conspic uity of patient's known right MCA territory infarction without definite imaging evidence of hemorrhagic transformation. 2. No significant mass effect, midline shift or obstructive hydrocephalus. These findings are in agreem ent with previous preliminary report made by telecommunications officer founder president and ceo. 2019-09-15 EXAM: CT HEAD WITHOUT CONTRAST [facility] 19:35:00-00:00 DATE: 09/15/2019 740 PM [facility] Cente r INDICATION: 84 years old Female patient with his tory of AMS after tpa. TECHNIQUE: Multiple axial im ages were obtained through the head from vertex to the skull base. Axial bone algorithm reconstruction images are provided. COMPARISON: Prior CT scan of the head dated 09/15 11:59 AM FINDINGS: Interval increase conspicuit y of patient's known right MCA territory infarction. Stable few scattered focal r ight cerebral hemispheric hypodensities which may represent intraluminal clot and nonspecific focal calcification. Overall no new parenchymal a bnormality or acute intracranial hemorrhage is identified. There is no significant mass effect and midline shift. Overall ventricles are stable in size and config uration. Basal cisterns are grossly p reserved. There is no evidence of downward herniation at the level of foramen magnum. No interval significant adve rse changes in visualized paranasal sinuses, orbits, mastoid cavities and calvarium. IMPRESSION: 1. Interval increase conspic uity of patient's known right MCA territory infarction without definite imaging evidence of hemorrhagic transformation. 2. No significant mass effect, midline shift or obstructive hydrocephalus. These findings are in agreem ent with previous preliminary report made by telecommunications officer founder president and ceo. 2019-09-15 EXAM: XR CHEST 1 VIEW [facility] 12:20:00-00:00 DATE: 09/15/2019 11:53 [facility] Center INDICATION: - stroke COMPARISON: None TECHNIQUE: AP chest FINDINGS: Lines and tubes: None. Lungs and pleura: No pulmonary or pleural based abnormality is identified. Heart and mediastinum: Unremarkable for acute ab normality. Chest wall: Surgical clips a re present in the right upper abdominal quadrant, consistent with prior cholecystectomy. Bones: No acute bony abnormality is identified. IMPRESSION: No acute abnormality. 2019-09-15 EXAM: XR CHEST 1 VIEW [facility] 12:20:00-00:00 DATE: 09/15/2019 11:53 [facility] Center INDICATION: - stroke COMPARISON: None TECHNIQUE: AP chest FINDINGS: Lines and tubes: None. Lungs and pleura: No pulmonary or pleural based abnormality is identified. Heart and mediastinum: Unremarkable for acute ab normality. Chest wall: Surgical clips a re present in the right upper abdominal quadrant, consistent with prior cholecystectomy. Bones: No acute bony abnormality is identified. IMPRESSION: No acute abnormality. 2019-09-15 EXAM: CT BRAIN WITHOUT CONTRAST [facility] 12:00:00-00:00 DATE: 09/15/2019 11:51 [facility] Center INDICATION: - r gaze, l hemiparesis COMPARISON: None TECHNIQUE: Routine axial kristel ges of the brain were obtained. Reformatted images in the sagittal and coronal plane were included. IV contrast: None. FINDINGS: Diminished flores-white differ entiation is present in the right precentral gyrus inclusive of portions of the hand motor area. Increased attenuation is pre sent within blood vessels on the right indicative of intraluminal clot within the middle cerebral artery peripherally (series 2 image 18 and, possibly, series 2 image 23). ASPECTS: 9 Laterality: Right Caudate: normal Lenticular: normal Insula: normal Internal capsule: normal M1: normal M2: normal M3: normal M4: normal M5: Abnormal M6: normal No intraparenchymal or extra -axial hemorrhage is detected. A tiny focus of low- attenuation is present in the right cerebellar hemisphere likely indicating a remote infarct (series 2 image 10). Chronic m icrovascular ischemic change s of the frontal periventricular white matter are also present. The sinuses and skull base are unremarkable. IMPRESSION: Small acute shabbir ical infarct on the right. ASPECTS: 9 dense intraluminal clot in the peripheral MCA on the right. A 2nd focus may reflect calcified clot or subarachnoid space calcification from prior infection. 2019-09-15 EXAM: CT CERVICAL SPINE WITHOUT CONTRAST [facility] 12::00-: DATE: 09/15/2019 11:53 ST[facility] LETTERER Center INDICATION: - found down COMPARISON: None. TECHNIQUE: Volumetric acquis ition of the cervical spine without contrast. Axial, sagittal and coronal images are provided. IV contrast: None. DLP: 524.9 mGy-cm DISCUSSION: No acute fracture or malalig nment is identified. Diffuse degenerative changes are noted throughout the cervical spine. No acute soft tissue abnormality is identified. However, a low-density lesion is se en in the right thyroid lobe , inferiorly, ovoid in shape and about 1 cm in greatest dimension. IMPRESSION: 1. No acute abnormality. 2. Degenerative disc disease. 3. Low-density right thyroid lobe lesion. Follow-up outpatient ultrasonography should be performed, if not done so previously. 2019-09-15 EXAM: CT ANGIOGRAM OF THE BRAIN [facility] 12:00:00-:00 EXAM: CT ANGIOGRAM OF THE NECK C enter DATE: 09/15/2019 11:59 AM STOCK LETTERER INDICATION: - R gaze L hemiparesis COMPARISON: None TECHNIQUE: -Rapid acquisition spiral im ages of the brain and neck were obtained between the aortic arch and the cranial vertex during intravenous infusion of iodinated contrast for the purposes of CT angiography. 3-D CT angiographic images a re created using maximum intensity projection technique at the acquisition workstation. The source images are also presented for interpretation. IV contrast: 60 mL Omnipaque 350 ESTIMATED DOSE: Total DLP 635.8 mGy*cm FINDINGS: NECK CTA: Aortic arch: The great vesse ls originate from the aortic arch in the standard configuration. Carotid arteries: The cervic al common carotid arteries and cervical internal carotid arteries have a normal caliber. A degree of tortuosity is present bilaterally, aging related. There are areas of calc ification at the carotid bif urcations leading to minimal contour irregularity. No measurable stenosis of the carotid bifurcations or internal carotid arteries is present by NASCET criteria. There is no evidence of vascular injury. Vertebral arteries:The left vertebral artery is the dominant vertebral artery. The asymmetry is developmental in nature as the caliber of the left vertebral artery is nearly that of the internal carotid arteries which would not be en acquired phenomenon. The right vertebral artery is hypoplastic at baseline. A stenosis of its origin is present likely greater than 50%. The vessel is well opacified up to the C2 level (entirety of t he V2 segment). The horizontal V3 segment is, however, not visible. Opacification of the vertical V3 segment is present via muscular collaterals. It is unclear whether the ho rizontal V2 segment is very narrow and below the resolution of CT imaging or occluded (although why the V2 segment would remain patent were there an occlusion of the proximal V3 region is unclear). The vertical and distal horizont al portions of the V3 segment return to the apparent [place] caliber. Slight narrowing is present as the vessel enters the dura, as expected. A peripherally enhancing, ce ntrally hypodense mass is present in the right lobe of the thyroid gland laterally measuring 20 x 15 mm. The other soft tissues of the neck and other incidental structures are normal. BRAIN CTA: Minimal atheroscl erotic changes are present in the cavernous segments of the internal carotid arteries with more prominent calcification in the supraclinoid regions bilaterally. No measurable narrowing is evident. The right A1 segment is deve lopmentally smaller than the left. There is a fenestration of the A1 A2 junction on the left. A small anterior communicating artery is believed to be present. Posterior communicating arteries are not identified. The anterior circulation on the left is unremark able. On the right there is decrea sed attenuation within an M2 branch of the anterior division relative to the others (series 1 image 60). The decrease in contrast density in caliber persists more peripherall y within the sylvian fissure with poor visualization of the vessel in this region. The focus of calcified atten uation within the subarachnoid space near the vertex on the right does not have associated vessels adjacent to it and, may therefore, merely be post inflammatory in nature. T he curvilinear area of incre ased attenuation likely corresponds to the distal branches of the abnormal vessel just described based on the location. The posterior circulation anguiano s a normal appearance and a standard branching pattern. No branch occlusion, vascular injury, arteritis, vascular malformation or aneurysm is identified in this distribution. The deep cerebral veins and major venous sinuses are normal. IMPRESSION: 1. Normal appearance of the cervical internal ca rotid arteries for age. 2. Abnormal appearance of th e distal right vertebral artery in the neck. The caliber of this vessel is very small, likely on a developmental basis. There probably, however, was superimposed atherosclero tic change or arterial injur y leading to the region of occlusion or near occlusion in the V3 segment. Greater than 50% stenosis of the vertebral origin is also present on this side. 3. Normal appearance of the left vertebral arter y. 4. Peripheral thromboembolic occlusion of right middle cerebral artery branch with decreased contrast density in the M2 segment leading to the area of abnormality indicative of delayed and diminished blood flow. 5. Normal appearance of the posterior circulatio n. 6. Multiple mass lesions in the right lobe of the thyroid the largest of which measures over 15 mm. Nonemergent evaluation with ultrasound can be considered if the patient does not have a limited life expectancy. (All qualitative and quantit ative assessments of carotid bifurcation and proximal internal carotid artery stenosis are made referencing the distal internal carotid artery {NASCET criteria}.) 2019-09-15 EXAM: CT BRAIN WITHOUT CONTRAST [facility] 12:00:00-00:00 DATE: 09/15/2019 11:51 ST[facility] LETTERER Center INDICATION: - r gaze, l hemiparesis COMPARISON: None TECHNIQUE: Routine axial kristel ges of the brain were obtained. Reformatted images in the sagittal and coronal plane were included. IV contrast: None. FINDINGS: Diminished flores-white differ entiation is present in the right precentral gyrus inclusive of portions of the hand motor area. Increased attenuation is pre sent within blood vessels on the right indicative of intraluminal clot within the middle cerebral artery peripherally (series 2 image 18 and, possibly, series 2 image 23). ASPECTS: 9 Laterality: Right Caudate: normal Lenticular: normal Insula: normal Internal capsule: normal M1: normal M2: normal M3: normal M4: normal M5: Abnormal M6: normal No intraparenchymal or extra -axial hemorrhage is detected. A tiny focus of low- attenuation is present in the right cerebellar hemisphere likely indicating a remote infarct (series 2 image 10). Chronic m icrovascular ischemic change s of the frontal periventricular white matter are also present. The sinuses and skull base are unremarkable. IMPRESSION: Small acute shabbir ical infarct on the right. ASPECTS: 9 dense intraluminal clot in the peripheral MCA on the right. A 2nd focus may reflect calcified clot or subarachnoid space calcification from prior infection. 2019-09-15 EXAM: CT CERVICAL SPINE WITHOUT CONTRAST [facility] 12:00:00-:00 DATE: 09/15/2019 11:53 ST[facility] LETTERER Center INDICATION: - found down COMPARISON: None. TECHNIQUE: Volumetric acquis ition of the cervical spine without contrast. Axial, sagittal and coronal images are provided. IV contrast: None. DLP: 524.9 mGy-cm DISCUSSION: No acute fracture or malalig nment is identified. Diffuse degenerative changes are noted throughout the cervical spine. No acute soft tissue abnormality is identified. However, a low-density lesion is se en in the right thyroid lobe , inferiorly, ovoid in shape and about 1 cm in greatest dimension. IMPRESSION: 1. No acute abnormality. 2. Degenerative disc disease. 3. Low-density right thyroid lobe lesion. Follow-up outpatient ultrasonography should be performed, if not done so previously. 2019-09-15 EXAM: CT ANGIOGRAM OF THE BRAIN [facility] 12:00:00-:00 EXAM: CT ANGIOGRAM OF THE NECK C enter DATE: 09/15/2019 11:59 AM STOCK LETTERER INDICATION: - R gaze L hemiparesis COMPARISON: None TECHNIQUE: -Rapid acquisition spiral im ages of the brain and neck were obtained between the aortic arch and the cranial vertex during intravenous infusion of iodinated contrast for the purposes of CT angiography. 3-D CT angiographic images a re created using maximum intensity projection technique at the acquisition workstation. The source images are also presented for interpretation. IV contrast: 60 mL Omnipaque 350 ESTIMATED DOSE: Total DLP 635.8 mGy*cm FINDINGS: NECK CTA: Aortic arch: The great vesse ls originate from the aortic arch in the standard configuration. Carotid arteries: The cervic al common carotid arteries and cervical internal carotid arteries have a normal caliber. A degree of tortuosity is present bilaterally, aging related. There are areas of calc ification at the carotid bif urcations leading to minimal contour irregularity. No measurable stenosis of the carotid bifurcations or internal carotid arteries is present by NASCET criteria. There is no evidence of vascular injury. Vertebral arteries:The left vertebral artery is the dominant vertebral artery. The asymmetry is developmental in nature as the caliber of the left vertebral artery is nearly that of the internal carotid arteries which would not be en acquired phenomenon. The right vertebral artery is hypoplastic at baseline. A stenosis of its origin is present likely greater than 50%. The vessel is well opacified up to the C2 level (entirety of t he V2 segment). The horizontal V3 segment is, however, not visible. Opacification of the vertical V3 segment is present via muscular collaterals. It is unclear whether the ho rizontal V2 segment is very narrow and below the resolution of CT imaging or occluded (although why the V2 segment would remain patent were there an occlusion of the proximal V3 region is unclear). The vertical and distal horizont al portions of the V3 segment return to the apparent [place] caliber. Slight narrowing is present as the vessel enters the dura, as expected. A peripherally enhancing, ce ntrally hypodense mass is present in the right lobe of the thyroid gland laterally measuring 20 x 15 mm. The other soft tissues of the neck and other incidental structures are normal. BRAIN CTA: Minimal atheroscl erotic changes are present in the cavernous segments of the internal carotid arteries with more prominent calcification in the supraclinoid regions bilaterally. No measurable narrowing is evident. The right A1 segment is deve lopmentally smaller than the left. There is a fenestration of the A1 A2 junction on the left. A small anterior communicating artery is believed to be present. Posterior communicating arteries are not identified. The anterior circulation on the left is unremark able. On the right there is decrea sed attenuation within an M2 branch of the anterior division relative to the others (series 1 image 60). The decrease in contrast density in caliber persists more peripherall y within the sylvian fissure with poor visualization of the vessel in this region. The focus of calcified atten uation within the subarachnoid space near the vertex on the right does not have associated vessels adjacent to it and, may therefore, merely be post inflammatory in nature. T he curvilinear area of incre ased attenuation likely corresponds to the distal branches of the abnormal vessel just described based on the location. The posterior circulation anguiano s a normal appearance and a standard branching pattern. No branch occlusion, vascular injury, arteritis, vascular malformation or aneurysm is identified in this distribution. The deep cerebral veins and major venous sinuses are normal.
[2023-01-17 10:55] LABS: Absolute Lymphocytes (CBC) 1.2 K/uL (0.7-4.9); Hematocrit 36.8 % (36.0-45.0); Lymphocytes % 25.1 % (15.3-44.8); MCV 98.2 fL (80-100); MPV 8.1 fL (7.6-11.3); Protime INR 1.25; RBC Red Blood Cell Count 3.75 M/uL (3.86-4.86)
[2023-01-17] MEDS ORDERED: MORPHINE 2 MG/ML SYR ONE (11:03)
[2023-01-17 11:11] LABS: Albumin 3.4 g/dL (3.4-5.0); Bilirubin Total 0.3 mg/dL (0.2-1.0); Potassium 3.9 mEq/L (3.5-5.1); Protein, Total 7.4 g/dL (6.4-8.2); Troponin High Sensitivity 9.9 pg/mL (<58.9)
--- NOTE | 2023-01-17 11:11 | RAD REPORT ---
EXAM DESCRIPTION: CT - Head Brain Wo Cont - 01/17/2023 10:52 am CLINICAL HISTORY: Headache COMPARISON: 2020 TECHNIQUE: Computed axial tomography of the head was obtained. IV contrast was not requested. All CT scans are performed using dose optimization technique as appropriate and may include automated exposure control or mA/KV adjustment according to patient size. FINDINGS: An intracranial bleed is not seen The ventricles are normal in caliber No extra-axial fluid collection is noted. 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 Old right basal ganglia infarction. Fluid within the sinuses/ mastoids is not seen. IMPRESSION: No acute intracranial abnormality is seen If patient's symptoms persist MRI of the brain would be recommended
--- NOTE | 2023-01-17 11:15 | RAD REPORT ---
EXAM DESCRIPTION: CT - C Spine Wo Con - 01/17/2023 10:52 am CLINICAL HISTORY: Neck pain status post fall COMPARISON: September 2022 TECHNIQUE: Computed axial tomography of the cervical spine were obtained with sagittal and coronal r econstruction images generated and reviewed. All CT scans are performed using dose optimization technique as appropriate and may include automated exposure control or mA/KV adjustment according to patient size. FINDINGS: A cervical fracture is not seen. No dislocation. Spondylosis involves the cervical spine. Mild chronic posterior subluxation C4 on C5 and C5 on C6. Mild chronic anterior subluxation C7 on T1 IMPRESSION: A cervical fracture is not seen. If the patient continues have symptoms to suggest spinal cord/spinal canal pathology then MRI would b e recommended.
--- NOTE | 2023-01-17 11:27 | RAD REPORT ---
EXAM DESCRIPTION: RAD - Pelvis - 01/17/2023 11:17 am CLINICAL HISTORY: Pelvic pain status post injury FINDINGS: No fracture or dislocation is seen. If the patient continues to have symptoms to suggest an occult fracture then MRI would be recommended
--- NOTE | 2023-01-17 11:27 | RAD REPORT ---
EXAM DESCRIPTION: RAD - Hip Left 2 View - 01/17/2023 11:17 am CLINICAL HISTORY: Left hip pain status post injury FINDINGS: No fracture or dislocation is seen. Bones are osteoporotic If the patient continues have symptoms to suggest an occult fracture then MRI would be recommended
--- NOTE | 2023-01-17 11:29 | RAD REPORT ---
EXAM DESCRIPTION: RAD - Elbow Left 3 View - 01/17/2023 11:17 am CLINICAL HISTORY: Left elbow pain status post trauma FINDINGS: Limited evaluation secondary to difficulty with patient positioning. No gross fracture or dislocation seen A soft tissue laceration
--- NOTE | 2023-01-17 11:31 | RAD REPORT ---
EXAM DESCRIPTION: RAD - Shoulder Left 2 View - 01/17/2023 11:17 am CLINICAL HISTORY: Left shoulder pain status post fall FINDINGS: Limited examination secondary to overlying body parts. No fracture or dislocation is seen.
--- NOTE | 2023-01-17 11:33 | RAD REPORT ---
EXAM DESCRIPTION: Dayne Single View01/17/2023 11:17 am CLINICAL HISTORY: Chest pain COMPARISON: September 2022 FINDINGS: The lungs appear clear of acute infiltrate. The heart is mildly enlarged IMPRESSION: No acute abnormalities displayed
--- NOTE | 2023-01-17 12:03 | RAD REPORT ---
EXAM DESCRIPTION: CT - Hip Left Wo Con - 01/17/2023 11:50 am CLINICAL HISTORY: Left hip pain status post fall COMPARISON: X-ray January 17, 2023 TECHNIQUE: Computed axial tomography left hip obtained with coronal and sagittal reconstruction. All CT scans are performed using dose optimization technique as appropriate and may include automated exposure control or mA/KV adjustment according to patient size. FINDINGS: No fracture or dislocation seen. Osteoporosis No significant joint effusion. No hematoma left thigh IMPRESSION: No fracture seen
--- NOTE | 2023-01-17 12:33 | EDPHYS ---
Physician Documentation [facility] Name: Nai Ragland Age: 87 yrs Sex: Female : 1935 Arrival Date: 01/17/2023 Time: 10:17 Bed 7 Private MD: ED Physician Shaw Al HPI: 01/17 10:36 This 87 yrs old Female presents to ER via EMS with complaints of Fall Injury. bs3 10:36 87-year-old female history of CVA, asthma, hypertension on Eliquis presents after a bs3 fall she was being transferred and fell hitting her left shoulder and left hip she thinks she may have hit her head but no loss of consciousness she has moderate pain of her left hip and shoulder right now denies anything else bothering her. Historical: - Allergies: 10:17 No Known Allergies; aa5 - PMHx: 10:17 Asthma; CVA; Gastroesophageal reflux disease; Hypertension; Urinary retention; aa5 - Immunization history:: Adult Immunizations unknown. - Social history:: Smoking status: Patient/guardian denies using tobacco. ROS: 10:36 Constitutional: Negative for fever, chills bs3 10:36 All other systems are negative. Exam: 10:36 Constitutional: Patient appears frail Head/Face: Normocephalic, atraumatic. Eyes: bs3 Pupils equal round and reactive to light, extra-ocular motions intact. Lids and lashes normal. ENT: mmm, no posterior phyarngeal erythema Neck: Trachea midline, no thyromegaly, no neck stiffness Chest/axilla: Mild chest wall tenderness diffusely no focal tenderness patient states this is chronic Cardiovascular: Regular rate and rhythm with a normal S1 and S2. symmetric pulses in upper extremities Respiratory: Lungs have equal breath sounds bilaterally, clear to auscultation, no respiratory distress Abdomen/GI: Soft, non-tender, no rebound or guarding Skin: Warm, dry with normal turgor. Normal color with no rashes, no lesions, and no evidence of cellulitis. MS/ Extremity: Left arm is contracted at the elbow, left leg is shortened and externally rotated sensation is intact she has pain with logroll of her left hip Neuro: Awake and alert, GCS 15, oriented to person, place, time, and situation. Cranial nerves II-XII grossly intact. Motor strength 5/5 in all extremities. Sensory grossly intact. Psych: Awake, alert, with orientation to person, place and time. Behavior, mood, and affect are within normal limits. 12:33 Normal sinus rhythm at [address] elevation or depression QTc normal as interpreted by me bs3 Vital Signs: 10:45 BP 167 / 72; Pulse 66; Resp 16; Temp 98.4; Pulse Ox 97% on R/A; Pain 9/10; sc3 12:16 BP 156 / 68; Pulse 63; Resp 16; Pulse Ox 97% on R/A; mb9 10:45 Pain Scale: Adult sc3 [place] Com[place] Score: 10:45 Eye Response: spontaneous(4). Motor Response: obeys commands(6). Verbal Response: sc3 oriented(5). Total: 15. Trauma Score (Adult): 10:45 Eye Response: spontaneous(1); Verbal Response: oriented(1); Motor Response: obeys sc3 commands(2); Systolic BP: > 89 mm Hg(4); Respiratory Rate: 10 to 29 per min(4); [place] Score: 15; Trauma Score: 12 MDM: 10:24 Patient medically screened. bs3 10:36 Data reviewed: vital signs, nurses notes. ED course: Patient presents status post fall bs3 mechanical in nature with multiple complaints will rule out intracranial hemorrhage as she is on Eliquis will evaluate for shoulder fracture/dislocation will evaluate for hip fracture and reassess. 11:24 ED course: xr pelvis neg, ct head neg, will reassess. bs3 11:31 ED course: per family, her left leg and left arm are at baseline slightly contracted, bs3 likely accounting for the short ext rotated leg. . 11:44 ED course: d/w family, will r/o occult fx. if neg, will dc home. bs3 12:30 ED course: CT negative for acute pathology when family arrived they noted that her leg bs3 is always contracted discussed with family at bedside she is clinically stable to be discharged back home. 01/17 10:28 Order name: CBC with Diff; Complete Time: 11:17 bs3 01/17 10:28 Order name: Comprehensive Metabolic Panel; Complete Time: 11:17 bs3 01/17 10:28 Order name: Type And Screen; Complete Time: 11:49 bs3 01/17 10:28 Order name: PT-INR; Complete Time: 11:00 bs3 01/17 10:28 Order name: Troponin High Sensitivity; Complete Time: 11:17 bs3 01/17 10:28 Order name: BNP; Complete Time: 11:17 bs3 01/17 12:44 Order name: ABO/RH no charge EDMS 01/17 10:28 Order name: XRAY Chest (1 view); Complete Time: 11:49 bs3 01/17 10:28 Order name: CT Head Brain wo Cont; Complete Time: 11:17 bs3 01/17 10:28 Order name: CT C Spine; Complete Time: 11:17 bs3 01/17 10:28 Order name: Hip Left 2 View XRAY; Complete Time: 11:31 bs3 01/17 10:28 Order name: Pelvis XRAY; Complete Time: 11:28 bs3 01/17 10:47 Order name: XRAY Shoulder LEFT 2 view; Complete Time: 11:49 bs3 01/17 10:57 Order name: Elbow Left 3 View XRAY; Complete Time: 11:31 bs3 01/17 11:51 Order name: Hip Left Wo Con; Complete Time: 12:29 EDMS 01/17 10:28 Order name: EKG - Nurse/Tech; Complete Time: 12:06 bs3 Administered Medications: 11:36 Drug: morphine IVP or IV 1 mg Route: IVP; Infused Over: 2 mins; Site: right wrist; mt3 12:34 Drug: Acetaminophen PO 1000 mg Route: PO; mb9 Disposition Summary: 01/17/23 12:32 Discharge Ordered Location: Home bs3 Problem: new bs3 Symptoms: have improved bs3 Condition: Stable bs3 Diagnosis - Contusion of hip bs3 Followup: bs3 - With: Private Physician - When: 1 week - Reason: Re-evaluation by your physician Discharge Instructions: - Discharge Summary Sheet bs3 - Contusion, [id number] bs3 - Elbow Contusion, [id number] bs3 Forms: - Medication Reconciliation Form bs3 - Thank You Letter bs3 - Antibiotic Education bs3 - Prescription Opioid Use bs3 Signatures: Dispatcher [employer] EDLinda Brady RN RN aa5 Shaw Al MD MD bs3 Monserrat Gutierrez RN RN mb9 Wiggins, Rusty, RN RN sc3 Corrections: (The following items were deleted from the chart) 11:24 ED course: xr concernign for hip fx, will consult ortho, will admit to bs3 hospitalist. . bs3 11:51 11:36 Pelvis Wo Cont+CT.RAD.BRZ ordered. EDMS EDMS
--- NOTE | 2023-01-17 12:33 | ER ---
Nurse's Notes [facility] Name: Nai Ragland Age: 87 yrs Sex: Female : 1935 Arrival Date: 01/17/2023 Time: 10:17 Bed 7 Private MD: Diagnosis: Contusion of hip Presentation: 01/17 10:17 Chief complaint: EMS states: resident at [facility] assisted living facility, was being aa5 assisted by [facility] staff from toilet to wheelchair when pt fell". Pt reports hitting left side of head on tile floor, c/o pain to left hip, small skin tear noted to left elbow. Pt takes Eliquis. 10:17 Care prior to arrival: Placed on backboard. Mechanism of Injury: Fall from standing aa5 position. Trauma event details: Injury occurred in the [facility], Injury occurred: at home. 10:17 Method Of Arrival: EMS: [facility] aa5 10:17 Acuity: JT 2 aa5 10:45 Coronavirus screen: At this time, the client does not indicate any symptoms associated aa5 with coronavirus-19. Ebola Screen: Patient denies travel to an Ebola-affected area in the 21 days before illness onset. Initial Sepsis Screen: Does the patient meet any 2 criteria? No. Patient's initial sepsis screen is negative. Does the patient have a suspected source of infection? No. Patient's initial sepsis screen is negative. Risk Assessment: Do you want to hurt yourself or someone else? Patient reports no desire to harm self or others. Onset of symptoms was January 17, 2023. Trauma Activation: Not Applicable Physician: ED Physician; Name: ; Notified At: ; Arrived At: Physician: General Surgeon; Name: ; Notified At: ; Arrived At: Physician: Radiology; Name: ; Notified At: ; Arrived At: Physician: Respiratory; Name: ; Notified At: ; Arrived At: Physician: Lab; Name: ; Notified At: ; Arrived At: Historical: - Allergies: 10:17 No Known Allergies; aa5 - PMHx: 10:17 Asthma; CVA; Gastroesophageal reflux disease; Hypertension; Urinary retention; aa5 - Immunization history:: Adult Immunizations unknown. - Social history:: Smoking status: Patient/guardian denies using tobacco. Screenin:46 Nutritional screening: No deficits noted. Tuberculosis screening: No symptoms or risk sc3 factors identified. Fall risk At risk due to injury, age, immobility, deformity, prior history of falls. Exposure risk/Travel Screening: None identified. Primary Survey: 10:44 NO uncontrolled hemorrhage observed. A: The client is awake and alert. The airway is sc3 patent. Breathing/Chest: Spontaneous respiratory effort, equal unlabored respirations, breath sounds clear bilaterally, regular pattern, symmetrical chest rise and fall. Circulation: No external hemorrhage present. Regular and strong central pulse, skin warm/dry/normal color. Disability Pupils are equal, round, reactive to light and accommodation. Client is alert. Exposure/Environment: All clothing and personal items were removed. Forensic evidence collection is not deemed to be indicated at this time. Items placed in patient belonging bag. Secondary Survey: 10:45 HEENT: No deficits noted. Gastrointestinal: No deficits noted. : No deficits noted. sc3 Musculoskeletal: Capillary refill Range of motion: Reports pain in pelvis. Injury Description: Abrasion Bruise Skin tears. Assessment: 10:38 General: Appears uncomfortable, Behavior is calm, cooperative, appropriate for age. sc3 Pain: Complains of pain in pelvis Pain does not radiate. Pain radiates to abdomen Pain currently is 9 out of 10 on a pain scale. Quality of pain is described as aching, tender, Pain began Aggravated by movement Noted to be grimacing, resistant to movement, Goal of pain control is to be pain free, stay alert. Neuro: Reports weakness to LLE and contractures to LUE s/p previous stroke. EENT: No deficits noted. Cardiovascular: No deficits noted. Respiratory: No deficits noted. GI: No deficits noted. : No deficits noted. Derm: No deficits noted. Musculoskeletal: Circulation, motion, and sensation intact. Capillary refill Range of motion: limited in left shoulder, left elbow, left wrist and left hip LLE lateral rotation Tenderness pelvis. Injury Description: Abrasion sustained to left arm Bruise sustained to left arm. 12:38 Reassessment: Spoke to staff at [facility] and they state that the [facility] transportation bus isn't available to pick pt up until 1500. Charge nurse notified. Vital Signs: 10:45 BP 167 / 72; Pulse 66; Resp 16; Temp 98.4; Pulse Ox 97% on R/A; Pain 9/10; sc3 12:16 BP 156 / 68; Pulse 63; Resp 16; Pulse Ox 97% on R/A; mb9 10:45 Pain Scale: Adult sc3 [place] Score: 10:45 Eye Response: spontaneous(4). Motor Response: obeys commands(6). Verbal Response: sc3 oriented(5). Total: 15. Trauma Score (Adult): 10:45 Eye Response: spontaneous(1); Verbal Response: oriented(1); Motor Response: obeys sc3 commands(2); Systolic BP: > 89 mm Hg(4); Respiratory Rate: 10 to 29 per min(4); [place] Score: 15; Trauma Score: 12 ED Course: 10:17 Arm band placed on. aa5 10:24 Patient arrived in ED. aa5 10:24 Shaw Al MD is Attending Physician. bs3 10:27 Triage completed. aa5 10:47 Inserted saline lock: 22 gauge in right wrist, using aseptic technique. sc3 10:53 CT Head Brain wo Cont In Process Unspecified. EDMS 10:53 CT C Spine In Process Unspecified. EDMS 11:04 Rusty Wiggins, RN is Primary Nurse. sc3 11:18 XRAY Chest (1 view) In Process Unspecified. EDMS 11:19 Hip Left 2 View XRAY In Process Unspecified. EDMS 11:19 Pelvis XRAY In Process Unspecified. EDMS 11:19 XRAY Shoulder LEFT 2 view In Process Unspecified. EDMS 11:19 Elbow Left 3 View XRAY In Process Unspecified. EDMS 11:51 Hip Left Wo Con In Process Unspecified. EDMS Administered Medications: 11:36 Drug: morphine IVP or IV 1 mg Route: IVP; Infused Over: 2 mins; Site: right wrist; sc3 12:34 Drug: Acetaminophen PO 1000 mg Route: PO; mb9 Outcome: 12:32 Discharge ordered by . bs3 14:18 Patient left the ED. sc3 Signatures: Dispatcher [employer] EDMS Linda Hayes, RN RN aa5 Shaw Al MD MD bs3 Monserrat Gutierrez RN RN mb9 Rusty Wiggins RN RN sc3 Corrections: (The following items were deleted from the chart) 11:10 10:38 General: Appears uncomfortable, Behavior is calm, cooperative, appropriate for sc3 age, Smells of Reports pain from s/p fall sc3
[2023-01-17] MEDS ORDERED: ACETAMINOPHEN 500 MG TAB ONE (12:39)
[2023-01-17 15:03] VITALS: TEMP 98.4; O2SAT 97
[2023-01-17 15:09] VITALS: BP 156/68
--- NOTE | 2023-01-18 13:56 | EKG ---
Test Date: 2023-01-17 Test Time: 12:03:33 [employer]en Fence Erector: JACQUELIN MEASUREMENT RESULTS: Intervals: Rate: 60 DE: 154 QRSD: 106 QT: 430 QTc: 430 [place]: P: 83 DE: 154 QRS: -46 T: 34 INTERPRETIVE STATEMENTS: Normal sinus rhythm Left axis deviation Abnormal ECG Compared to ECG 10/04/2022 15:18:50 Myocardial infarct finding no longer present Electronically Signed On 01-18-23 13:55:23 CDT by Tin Webb
== END 2023-01-17 14:18 | disposition home or self-care (01) ==
LOC: ER 10:17
DX: S70.02XA Contusion of left hip, initial encounter (principal); W19.XXXA Unspecified fall, initial encounter; Y92.099 Unspecified place in other non-institutional residence as the place of occurrence of the external cause; M25.512 Pain in left shoulder; I10 Essential (primary) hypertension; J45.909 Unspecified asthma, uncomplicated; K21.9 Gastro-esophageal reflux disease without esophagitis; Z79.01 Long term (current) use of anticoagulants; Z86.73 Personal history of transient ischemic attack (TIA), and cerebral infarction without residual deficits
CPT/HCPCS: 93005; 85025; 36415; 86900; 86850; 85610; 86901; 84484; 80053; 83880; 70450; 72125; 73700; 71045; 72170; 73502; 73080; 73030; 96374; 99284; J2270

== ENCOUNTER 2024-07-19 12:27 | Emergency (ER) | payer OTHER ==
[2024-07-19 13:19] LABS: Absolute Eosinophils 0.2 K/uL (0-0.5); Absolute Lymphocytes (CBC) 1.4 K/uL (0.7-4.9); Absolute Monocytes 0.4 K/uL (0.1-1.3); Absolute Neutrophil 3.5 K/uL (1.8-8.0); Basophils % 0.9 % (0-1.3); Eosinophils % 2.8 % (0-4.4); Hemoglobin 11.7 g/dL (12.0-15.0); Lymphocytes % 24.7 % (15.3-44.8); MCH 32.3 pg (27.0-35.0); MCHC 32.5 g/dL (32.0-36.0); MCV 99.4 fL (80-100); Monocytes % 8.1 % (3.3-12.3); Neutrophils % 63.5 % (41.7-73.7); Platelets 263 thou/uL (152-406); RBC Red Blood Cell Count 3.63 M/uL (3.86-4.86); Red Cell Distribution Width 13.1 % (12.1-15.2)
[2024-07-19 13:25] LABS: PT Prothrombin Time 15.9 SECONDS (9.4-12.5); PTT, Activated Partial Thromb 37.1 SECONDS (24.3-36.9); Protime INR 1.43
[2024-07-19 13:36] LABS: Magnesium 2.3 mg/dL (1.6-2.4); SARS-CoV-2 Antigen CONTROL BLUE LINE VIS/BG OK; SARS-CoV-2 Antigen Rapid Res Negative (Negative); Troponin High Sensitivity 21.5 pg/mL (<58.9)
--- NOTE | 2024-07-19 14:52 | RAD REPORT ---
EXAMINATION: ONE VIEW CHEST XR CLINICAL INDICATION: SOB TECHNIQUE: Frontal chest projection is submitted. Examination is limited by patient positioning and t echnique. COMPARISON: 04/30/2023 FINDINGS: Mild to moderate bilateral pulmonary opacities suggest pulmonary edema. The heart is moderately enlar ged in size. No displaced fractures identified. IMPRESSION: [id number] CHF versus volume overload.
[2024-07-19] MEDS ORDERED: FUROSEMIDE 40 MG/4 ML VIAL ONE (15:47)
--- NOTE | 2024-07-19 16:34 | ER ---
Nurse's Notes [facility] Name: Nai Ragland Age: 88 yrs Sex: Female : 1935 Arrival Date: 07/19/2024 Time: 12:27 Bed 6 Private MD: Diagnosis: Acute on chronic congestive heart failure Presentation: 07/19 12:32 Chief complaint: EMS states: called for shortness of breath, room air sat 94%, placed ko1 on NC 2l and went up to 99%. Coronavirus screen: At this time, the client does not indicate any symptoms associated with coronavirus-19. Ebola Screen: No symptoms or risks identified at this time. Initial Sepsis Screen: Does the patient meet any 2 criteria? No. Patient's initial sepsis screen is negative. Does the patient have a suspected source of infection? No. Patient's initial sepsis screen is negative. Risk Assessment: Do you want to hurt yourself or someone else? Patient reports no desire to harm self or others. Onset of symptoms was July 19, 2024. Care prior to arrival: IV initiated. 20 GA, in the right hand, Oxygen administered. via nasal cannula. Transition of care: patient was received from another setting of care (long-term care facility), [facility]. 12:32 Method Of Arrival: EMS: [facility] ko1 12:32 Acuity: JT 3 ko1 Triage Assessment: 12:34 General: Appears in no apparent distress. Behavior is calm, cooperative, appropriate ko1 for age. Pain: Denies pain. Respiratory: Reports shortness of breath on exertion Onset: The symptoms/episode began/occurred gradually, the patient has mild shortness of breath. Historical: - Allergies: 12:34 No Known Allergies; ko1 - Home Meds: 12:34 baclofen 10 mg Oral tablet daily [Active]; diazepam 5 mg Oral tablet 1 tab daily ko1 [Active]; Eliquis 5 mg Oral tab 1 tab 2 times per day [Active]; famotidine 20 mg Oral tablet daily [Active]; folic acid 1 mg Oral tablet daily [Active]; furosemide 40 mg Oral tablet 2 times per day [Active]; hydralazine 50 mg Oral tablet 3 times per day [Active]; ketoconazole 2 % Topical shampoo 3 times per week [Active]; labetalol 200 mg Oral tablet 2 times per day [Active]; losartan 100 mg Oral tablet daily [Active]; magnesium oxide 400 mg magnesium oral capsule 2 caps daily for hypomagnesemia [Active]; melatonin 3 mg Oral tablet once daily at bedtime [Active]; omeprazole 20 mg Oral capsule daily [Active]; potassium chloride 20 mEq Oral Tablet daily [Active]; fluticasone propion-salmeterol 250-50 mcg/dose inhalation Blister, With Inhalation Device 1 inhalation 2 times per day [Active]; - PMHx: 12:34 Asthma; CVA; Gastroesophageal reflux disease; Hypertension; urinary retention; ko1 - PSHx: 12:34 bilateral knee replacement (y ); Cholecystectomy; hysterectomy; ko1 - Immunization history:: Adult Immunizations up to date. - Infectious Disease History:: Denies. - Social history:: Smoking status: Patient denies any tobacco usage or history of. Screenin:40 [facility] ED Fall Risk Assessment (Adult) History of falling in the last 3 months, ko1 including since admission Yes- single mechanical fall (1 pt) Confusion or Disorientation No (0 pts) Intoxicated or Sedated No (0 pts) Impaired Gait Yes (1 pt) Mobility Assist Device Used Yes (1 pt) Altered Elimination No (0 pt) Score/Fall Risk Level 3 or more points = High Risk Oriented to surroundings, Maintained a safe environment, Educated pt \T\ family on fall prevention, incl call for assistance when getting out of bed, Assessed \T\ reinforced patient's understanding of fall precautions, Provided non-skid footwear, Hourly rounding (assess needs \T\ fall precautionary measures) done, Used ambulatory aids as needed (educated on \T\ assisted with), Used gait belt as appropriate Implemented a Fall Risk Plan of Care, Apply high fall risk patient identification: yellow non skid footwear/ fall signage, Remained w/in arm's length of patient and in sight while toileting, Offered frequent toileting (1:1 observation), Remained with patient while ambulating, Utilized family, sitter, or virtual manager psychology as indicated. Abuse screen: Denies threats or abuse. Denies injuries from another. Nutritional screening: No deficits noted. Tuberculosis screening: No symptoms or risk factors identified. Assessment: 13:00 General: Appears in no apparent distress. Behavior is cooperative, appropriate for age. ko1 Pain: Denies pain. Neuro: No deficits noted. Cardiovascular: Rhythm is regular. Respiratory: Airway is patent Respiratory effort is even, unlabored, Breath sounds are diminished bilaterally. GI: No deficits noted. : No deficits noted. EENT: No deficits noted. Derm: No deficits noted. Musculoskeletal: No deficits noted. 16:15 Reassessment: linens changed, pure wick placed to intermittent suction, family at iw bedside, call light in reach. 17:28 Reassessment: REPORT TO GARCÍA RN AT . TRANSPORT TO BE ARRANGED. bp 18:03 Reassessment: PT ASTER WITH . bp Vital Signs: 12:32 BP 205 / 80; Pulse 66; Resp 19; Temp 97; Pulse Ox 97% on R/A; ko1 12:56 BP 199 / 78; Pulse 66; Resp 17; Pulse Ox 96% on R/A; ko1 16:00 BP 183 / 73; Pulse 69; Resp 18; Pulse Ox 97% on R/A; ko1 17:27 BP 163 / 73; Pulse 69; Resp 18; Temp 97; Pulse Ox 97% ; bp ED Course: 12:31 Patient arrived in ED. bp 12:31 Umu Jovel, RN is Primary Nurse. ko1 12:34 Triage completed. ko1 12:34 Arm band placed on right wrist. Patient placed in an exam room, on a stretcher, on ko1 clinical instructor, on pulse oximetry, Patient notified of wait time. 12:40 Patient has correct armband on for positive identification. Fall risk band placed. Bed ko1 in low position. Call light in reach. Side rails up X2. Provided Education on: labs. Pulse ox on. NIBP on. Door closed. Noise minimized. Lights dimmed. Warm blanket given. Pillow given. 12:40 Maintain EMS IV. Dressing intact. Good blood return noted. Site clean \T\ dry. Gauge \T\ ko 1 site: 20g right hand. Flushed with 10 mL NS. 12:45 Tamy Jean Baptiste PA-C is PHCP. sb4 12:45 Cornelio Atkinson MD is Attending Physician. sb4 13:13 RSV Sent. ko1 13:13 Flu Sent. ko1 13:13 SARS RAPID Sent. ko1 13:13 BMP Sent. ko1 13:13 CBC with Diff Sent. ko1 13:13 Magnesium Sent. ko1 13:13 NT PRO-BNP Sent. ko1 13:13 PT-INR Sent. ko1 13:13 Ptt, Activated Sent. ko1 13:13 Troponin HS Sent. ko1 13:25 EKG done, by ED staff, reviewed by Tamy Jean Baptiste PA-C. em1 14:44 XRAY CXR (1 view) In Process Unspecified. EDMS 16:00 No provider procedures requiring assistance completed. ko1 18:03 IV discontinued, intact, bleeding controlled, No redness/swelling at site. Pressure bp dressing applied. Administered Medications: 16:02 Drug: Furosemide IVP 40 mg IVP once; give over 2 minutes Route: IVP; Site: right hand; iw 16:17 Follow up: Response: No adverse reaction ko1 Medication: 12:40 VIS not applicable for this client. ko1 Outcome: 16:33 Discharge ordered by . sb4 18:03 Discharged to halfway. Report called to GARCÍA KIRK bp 18:03 Condition: stable 18:03 Discharge instructions given to patient, Instructed on discharge instructions, follow up and referral plans. Demonstrated understanding of instructions, follow-up care, 18:05 Patient left the ED. bp Signatures: Dispatcher [employer] EDMS Cass Vasquez RN RN iw Martinez, Eric em1 Cory Florentino, REAGAN KIRK bp Umu Jovel RN RN Tamy Lui, SANDIE PARyan sb4 Corrections: (The following items were deleted from the chart) 12:39 12:34 Home Meds: ketoconazole 2 % Topical cream 2 times per day; ko1 ko1
--- NOTE | 2024-07-19 16:34 | EDPHYS ---
Physician Documentation [facility] Name: Nai Ragland Age: 88 yrs Sex: Female : 1935 Arrival Date: 07/19/2024 Time: 12:27 Bed 6 Private MD: ED Physician Cornelio Atkinson HPI: 07/19 18:30 This 88 yrs old Female presents to ER via EMS with complaints of Shortness Of Breath. sb4 18:30 patient from [facility] called EMS for shortness of breath. has history of CHF, does not sb4 fluid or salt restrict, takes 40 mg lasix BID. went to a [employer] last night with an open bar. woke up this morning with shortness of breath. EMS placed her on supplemental O2. denies any cough, fever, wheezing. Historical: - Allergies: 12:34 No Known Allergies; ko1 - Home Meds: 12:34 baclofen 10 mg Oral tablet daily [Active]; diazepam 5 mg Oral tablet 1 tab daily ko1 [Active]; Eliquis 5 mg Oral tab 1 tab 2 times per day [Active]; famotidine 20 mg Oral tablet daily [Active]; folic acid 1 mg Oral tablet daily [Active]; furosemide 40 mg Oral tablet 2 times per day [Active]; hydralazine 50 mg Oral tablet 3 times per day [Active]; ketoconazole 2 % Topical shampoo 3 times per week [Active]; labetalol 200 mg Oral tablet 2 times per day [Active]; losartan 100 mg Oral tablet daily [Active]; magnesium oxide 400 mg magnesium oral capsule 2 caps daily for hypomagnesemia [Active]; melatonin 3 mg Oral tablet once daily at bedtime [Active]; omeprazole 20 mg Oral capsule daily [Active]; potassium chloride 20 mEq Oral Tablet daily [Active]; fluticasone propion-salmeterol 250-50 mcg/dose inhalation Blister, With Inhalation Device 1 inhalation 2 times per day [Active]; - PMHx: 12:34 Asthma; CVA; Gastroesophageal reflux disease; Hypertension; urinary retention; ko1 - PSHx: 12:34 bilateral knee replacement (y ); Cholecystectomy; hysterectomy; ko1 - Immunization history:: Adult Immunizations up to date. - Infectious Disease History:: Denies. - Social history:: Smoking status: Patient denies any tobacco usage or history of. ROS: 18:30 Constitutional: Negative for fever, chills, and weight loss, sb4 18:30 Respiratory: Positive for shortness of breath, 18:30 All other systems are negative, Exam: 18:30 Head/Face: Normocephalic, atraumatic. Eyes: Extra-ocular motions intact. Periorbital sb4 areas with no swelling, redness, or edema. ENT: Mucous membranes moist. Cardiovascular: Regular rate and rhythm with a normal S1 and S2. Respiratory: No increased work of breathing, no retractions or nasal flaring. Abdomen/GI: Soft, non-tender, no distension. Skin: Warm, dry with normal turgor. Normal color with no rashes, no lesions, and no evidence of cellulitis. 18:30 Constitutional: The patient appears in no acute distress, alert, awake, obese, 18:30 Respiratory: the patient does not display signs of respiratory distress, Respirations: normal, Breath sounds: rales, that are mild, are located in both bases, Vital Signs: 12:32 BP 205 / 80; Pulse 66; Resp 19; Temp 97; Pulse Ox 97% on R/A; ko1 12:56 BP 199 / 78; Pulse 66; Resp 17; Pulse Ox 96% on R/A; ko1 16:00 BP 183 / 73; Pulse 69; Resp 18; Pulse Ox 97% on R/A; ko1 17:27 BP 163 / 73; Pulse 69; Resp 18; Temp 97; Pulse Ox 97% ; bp MDM: 12:45 Medical Screening Exam initiated sb4 18:32 Data reviewed: vital signs, nurses notes, EMS record, group home records, lab test sb4 result(s), EKG, radiologic studies, and as a result, I will discharge patient. Consideration of Admission/Observation Escalation of care including admission/observation considered. Care significantly affected by the following chronic conditions: Hypertension, Congestive Heart Failure, Obesity. Counseling: I had a detailed discussion with the patient and/or guardian regarding the historical points, exam findings, and any diagnostic results supporting the discharge/admit diagnosis, the presence of at least one elevated blood pressure reading (>120/80) during this emergency department visit, lab results, radiology results, the need for outpatient follow up, the need for further work-up and treatment in the hospital. ED course: CXR and BNP suggestive of CHF flare. patient is not requiring supplemental O2, is not in any respiratory distress. will give IV lasix and discharge home. reiterated importance of fluid and salt restriction. she understands . 07/19 12:59 Order name: BMP; Complete Time: 13:37 sb4 07/19 12:59 Order name: CBC with Diff; Complete Time: 13:21 sb4 07/19 12:59 Order name: Magnesium; Complete Time: 13:37 sb4 07/19 12:59 Order name: NT PRO-BNP; Complete Time: 13:37 sb4 07/19 12:59 Order name: PT-INR; Complete Time: 13:25 sb4 07/19 12:59 Order name: Ptt, Activated; Complete Time: 13:25 sb4 07/19 12:59 Order name: Troponin HS; Complete Time: 13:37 sb4 07/19 12:59 Order name: SARS RAPID; Complete Time: 13:37 sb4 07/19 12:59 Order name: Flu; Complete Time: 14:06 sb4 07/19 12:59 Order name: RSV; Complete Time: 14:06 sb4 07/19 12:59 Order name: XRAY CXR (1 view); Complete Time: 14:54 sb4 07/19 12:59 Order name: Cardiac monitoring; Complete Time: 13:03 sb4 07/19 12:59 Order name: EKG - Nurse/Tech; Complete Time: 13:23 sb4 07/19 12:59 Order name: IV Saline Lock; Complete Time: 13:03 sb4 07/19 12:59 Order name: Labs collected and sent; Complete Time: 13:11 sb4 07/19 12:59 Order name: O2 Per Protocol; Complete Time: 13:03 sb4 07/19 12:59 Order name: O2 Sat Monitoring; Complete Time: 13:03 sb4 EC:25 Rate is 71 beats/min. Rhythm is regular, Normal Sinus Rhythm. Left axis deviation sb4 noted. AR interval is normal at 172 msec. QRS interval is normal at 106 msec. QT interval is normal at 398 msec. No Q waves. T waves are Normal. No ST changes noted. Clinical impression: No evidence of ischemia. Interpreted by me. Reviewed by me. Administered Medications: 16:02 Drug: Furosemide IVP 40 mg IVP once; give over 2 minutes Route: IVP; Site: right hand; 16:17 Follow up: Response: No adverse reaction ko1 Disposition Summary: 07/19/24 16:33 Discharge Ordered Notes: Location: Home sb4 Problem: new sb4 Symptoms: have improved sb4 Condition: Stable sb4 Diagnosis - Acute on chronic congestive heart failure sb4 Followup: sb4 - With: Private Physician - When: As needed - Reason: Recheck today's complaints, Re-evaluation by your physician Discharge Instructions: - Discharge Summary Sheet sb4 - Heart Failure, Self-Care sb4 - Heart Failure Exacerbation sb4 Forms: - Patient Portal Instructions sb4 - Leadership Thank You Letter sb4 Signatures: Dispatcher [employer] Cass Moss RN RN Umu Gaines RN RN ko1 Tamy Jean Baptiste PA-C PA-C sb4 Corrections: (The following items were deleted from the chart) 12:39 12:34 Home Meds: ketoconazole 2 % Topical cream 2 times per day; ko1 ko1 13:00 13:00 BASIC METABOLIC PANEL+C.LAB.BRZ ordered. EDMS EDMS 13:00 13:00 CBC+H.LAB.BRZ ordered. EDMS EDMS 13:00 13:00 MAGNESIUM+C.LAB.BRZ ordered. EDMS EDMS 13:00 13:00 PROBNP+C.LAB.BRZ ordered. EDMS EDMS 13:00 13:00 PROTIME (+INR)+COAG.LAB.BRZ ordered. EDMS EDMS 13:00 13:00 PTT, ACTIVATED+COAG.LAB.BRZ ordered. EDMS EDMS 13:00 13:00 Troponin High Sensitivity+C.LAB.BRZ ordered. EDMS EDMS 13:00 13:00 SARS-COV-2 Antigen Rapid+I.LAB.BRZ ordered. EDMS EDMS 13:00 13:00 Influenza Screen (A \T\ B)+BA.LAB.BRZ ordered. EDMS EDMS 13:00 13:00 Respiratory Syncytial Virus Ag+BA.LAB.BRZ ordered. EDMS EDMS 13:00 13:00 Chest Single View+RAD.RAD.BRZ ordered. EDMS EDMS
[2024-07-19 18:10] VITALS: TEMP 97
[2024-07-19 18:12] VITALS: O2SAT 97
[2024-07-19 18:13] VITALS: BP 163/73
--- NOTE | 2024-07-22 12:06 | EKG ---
Test Date: 2024-07-19 Test Time: 13:23:32 Media Developer: IVETTE MEASUREMENT RESULTS: Intervals: Rate: 71 NM: 172 QRSD: 106 QT: 398 QTc: 432 [place]: P: 75 NM: 172 QRS: -53 T: 59 INTERPRETIVE STATEMENTS: Normal sinus rhythm Left axis deviation Possible Anterior infarct, age undetermined Abnormal ECG Compared to ECG 04/30/2023 03:57:39 Myocardial infarct finding now present Electronically Signed On 07-22-24 12:03:45 SAGGER SOAK by Daryl Lemons
== END 2024-07-19 18:05 | disposition home or self-care (01) ==
LOC: ER 12:27
DX: I50.23 Acute on chronic systolic (congestive) heart failure (principal); I10 Essential (primary) hypertension; Z86.73 Personal history of transient ischemic attack (TIA), and cerebral infarction without residual deficits; Z11.52 Encounter for screening for COVID-19; Z79.01 Long term (current) use of anticoagulants
CPT/HCPCS: 93005; 85025; 80048; 36415; 83735; 85610; 85730; 84484; 83880; 87807; 87804 ×2; 71045; 96374; 99284; 87811; J1940

== ENCOUNTER 2024-07-24 14:30 | Inpatient (IN) | payer OTHER ==
[2024-07-24] MEDS ORDERED: DIAZEPAM 5 MG TABLET ONE (15:03)
--- NOTE | 2024-07-24 16:07 | RAD REPORT ---
Exam:Pelvis CLINICAL HISTORY: Pelvic pain FINDINGS: Subcapital fracture left femur with marked angulation and displacement present at the fracture site. No dislocation. Osteoporosis
--- NOTE | 2024-07-24 16:49 | ER ---
Nurse's Notes [facility] Name: Nai Ragland Age: 88 yrs Sex: Female : 1935 Arrival Date: 07/24/2024 Time: 14:30 Bed 15 Private MD: Diagnosis: Left Hip Fracture Presentation: 07/24 14:41 Chief complaint: EMS states: chronic left hip pain and swelling, sodalis called ems ko1 because patient requested to come to hospital. Coronavirus screen: At this time, the client does not indicate any symptoms associated with coronavirus-19. Ebola Screen: No symptoms or risks identified at this time. 14:41 Method Of Arrival: EMS: [facility] ko1 14:45 Initial Sepsis Screen: Does the patient meet any 2 criteria? No. Patient's initial ko1 sepsis screen is negative. Does the patient have a suspected source of infection? No. Patient's initial sepsis screen is negative. Risk Assessment: Do you want to hurt yourself or someone else? Patient reports no desire to harm self or others. Onset of symptoms is unknown. 14:45 Acuity: JT 3 ko1 Triage Assessment: 15:13 General: Appears in no apparent distress. Behavior is cooperative, appropriate for age. ko1 Pain: Complains of pain in left hip. EENT: No deficits noted. Neuro: No deficits noted. Cardiovascular: No deficits noted. Respiratory: No deficits noted. GI: No deficits noted. : No deficits noted. Derm: Bruising that is brown, yellow, on right leg and left leg. Musculoskeletal: left arm contracture. Historical: - Home Meds: 15:13 baclofen 10 mg Oral tablet daily [Active]; diazepam 5 mg Oral tablet 1 tab daily ko1 [Active]; famotidine 20 mg Oral tablet daily [Active]; Eliquis 5 mg Oral tab 1 tab 2 times per day [Active]; fluticasone propion-salmeterol 250-50 mcg/dose inhalation Blister 1 inhalation 2 times per day [Active]; folic acid 1 mg Oral tablet daily [Active]; furosemide 40 mg Oral tablet 2 times per day [Active]; hydralazine 50 mg Oral tablet 3 times per day [Active]; ketoconazole 2 % Topical shampoo 3 times per week [Active]; labetalol 200 mg Oral tablet 2 times per day [Active]; losartan 100 mg Oral tablet daily [Active]; magnesium oxide 400 mg magnesium Oral capsule 2 caps daily for Hypomagnesemia [Active]; omeprazole 20 mg Oral capsule daily [Active]; melatonin 3 mg Oral tablet once daily at bedtime [Active]; potassium chloride 20 mEq Oral tablet daily [Active]; - PMHx: 15:13 Asthma; CVA; Gastroesophageal reflux disease; Hypertension; urinary retention; ko1 - PSHx: 15:13 bilateral knee replacement; Cholecystectomy; hysterectomy; ko1 - Immunization history:: Adult Immunizations up to date. - Infectious Disease History:: Denies. - Social history:: Smoking status: Patient denies any tobacco usage or history of. Screenin:17 [facility] ED Fall Risk Assessment (Adult) History of falling in the last 3 months, ko1 including since admission Yes- single mechanical fall (1 pt) Confusion or Disorientation No (0 pts) Intoxicated or Sedated No (0 pts) Impaired Gait Yes (1 pt) Mobility Assist Device Used Yes (1 pt) Altered Elimination Yes (1 pt) Score/Fall Risk Level 3 or more points = High Risk Oriented to surroundings, Maintained a safe environment, Educated pt \T\ family on fall prevention, incl call for assistance when getting out of bed, Assessed \T\ reinforced patient's understanding of fall precautions, Provided non-skid footwear, Hourly rounding (assess needs \T\ fall precautionary measures) done, Used ambulatory aids as needed (educated on \T\ assisted with), Implemented a Fall Risk Plan of Care, Apply high fall risk patient identification: yellow non skid footwear/ fall signage, Remained w/in arm's length of patient and in sight while toileting, Offered frequent toileting (1:1 observation), Utilized family, sitter, or virtual medical librarian as indicated. Abuse screen: Denies threats or abuse. Denies injuries from another. Nutritional screening: No deficits noted. Tuberculosis screening: No symptoms or risk factors identified. Assessment: 15:17 Reassessment: see triage note. ko1 17:30 Reassessment: Patient appears in no apparent distress at this time. Patient and/or db family updated on plan of care and expected duration. Pain level reassessed. Patient is alert, oriented x 3, equal unlabored respirations, skin warm/dry/pink. CALLED AND NOTIFIED PATIENT DAUGHTER LORI THAT PATIENT IS IN THE HOSPITAL AND HAS A BROKEN HIP. PER PATIENT REQUEST. Vital Signs: 14:45 BP 184 / 75; Pulse 70; Resp 15; Temp 98; Pulse Ox 99% ; ko1 15:48 BP 176 / 64; Pulse 68; Resp 16; Pulse Ox 97% on R/A; ko1 18:02 Pulse 79; Resp 15; Pulse Ox 95% on R/A; ko1 ED Course: 14:40 Patient arrived in ED. ko1 14:41 Edgar Crook MD is Attending Physician. ec2 14:59 Umu Jovel RN is Primary Nurse. ko1 15:13 Triage completed. ko1 15:13 Arm band placed on right wrist. Patient placed in an exam room, on a stretcher, on ko1 pulse oximetry, Patient notified of wait time. 15:17 Patient has correct armband on for positive identification. Fall risk band placed. ko1 Placed in gown. Bed in low position. Call light in reach. Side rails up X2. Provided Education on: xray. Pulse ox on. NIBP on. Door closed. Noise minimized. Lights dimmed. Warm blanket given. Pillow given. 15:17 No provider procedures requiring assistance completed. ko1 15:55 Pelvis XRAY In Process Unspecified. EDMS 16:48 Abdirashid Bethea MD is Hospitalizing Provider. ec2 17:15 Inserted saline lock: 22 gauge in right antecubital area, using aseptic technique. ko1 Flushed with 10 mL NS. 17:28 Initial lab(s) drawn, by me, sent to lab. Inserted saline lock: 22 gauge in right db antecubital area, using aseptic technique. Blood collected. Flushed with 10 mL NS. 17:41 BMP Sent. ko1 17:41 CBC with Diff Sent. ko1 18:14 Patient admitted, IV remains in place. ko1 Administered Medications: 15:04 Drug: Diazepam PO 10 mg PO once Route: PO; ko1 15:34 Follow up: Response: No adverse reaction ko1 17:41 Drug: fentaNYL (PF) IVP 25 mcg IVP once Route: IVP; Site: right antecubital; ko1 17:56 Follow up: Response: No adverse reaction; Pain is decreased ko1 Medication: 15:17 VIS not applicable for this client. ko1 Outcome: 16:48 Decision to Hospitalize by Provider. ec2 18:14 Condition: stable ko1 18:14 Instructed on the need for admit, 19:15 Admitted to Med/surg accompanied by tech, via stretcher, with chart, cp4 19:17 Patient left the ED. cp4 Signatures: Dispatcher [employer] Umu Hale RN RN ko1 Daina Bowden RN RN db Edgar Crook MD MD ec2 Maria Sandy cp4 Corrections: (The following items were deleted from the chart) 15:15 15:13 Home Meds: ketoconazole 2 % Topical cream 2 times per day; ko1 ko1
--- NOTE | 2024-07-24 16:49 | EDPHYS ---
Physician Documentation [facility] Name: Nai Ragland Age: 88 yrs Sex: Female : 1935 Arrival Date: 07/24/2024 Time: 14:30 Bed 15 Private MD: ED Physician Edgar Crook HPI: 07/24 14:59 This 88 yrs old Female presents to ER via EMS with complaints of Hip Pain. ec2 15:00 Patient arrives today for evaluation of left hip pain. Patient with chronic left hip ec2 pain, history of contractures, baseline immobile and bedbound. No falls injuries or trauma.. Historical: - Home Meds: 15:13 baclofen 10 mg Oral tablet daily [Active]; diazepam 5 mg Oral tablet 1 tab daily ko1 [Active]; famotidine 20 mg Oral tablet daily [Active]; Eliquis 5 mg Oral tab 1 tab 2 times per day [Active]; fluticasone propion-salmeterol 250-50 mcg/dose inhalation Blister 1 inhalation 2 times per day [Active]; folic acid 1 mg Oral tablet daily [Active]; furosemide 40 mg Oral tablet 2 times per day [Active]; hydralazine 50 mg Oral tablet 3 times per day [Active]; ketoconazole 2 % Topical shampoo 3 times per week [Active]; labetalol 200 mg Oral tablet 2 times per day [Active]; losartan 100 mg Oral tablet daily [Active]; magnesium oxide 400 mg magnesium Oral capsule 2 caps daily for Hypomagnesemia [Active]; omeprazole 20 mg Oral capsule daily [Active]; melatonin 3 mg Oral tablet once daily at bedtime [Active]; potassium chloride 20 mEq Oral tablet daily [Active]; - PMHx: 15:13 Asthma; CVA; Gastroesophageal reflux disease; Hypertension; urinary retention; ko1 - PSHx: 15:13 bilateral knee replacement; Cholecystectomy; hysterectomy; ko1 - Immunization history:: Adult Immunizations up to date. - Infectious Disease History:: Denies. - Social history:: Smoking status: Patient denies any tobacco usage or history of. ROS: 15:00 Constitutional: as per hpi ec2 Exam: 15:00 Constitutional: GEN: NAD Head: atraumatic Eyes: EOMI Ears: External ears are ec2 normal. CV: regular rate LUNGS: no respiratory distress ABD: non-distended SKIN: no evidence of rashes MSK: Contracture noted to left upper and left lower extremity. Left hip with minimal TTP, no erythema, no warmth, no significant swelling appreciated. Vital Signs: 14:45 BP 184 / 75; Pulse 70; Resp 15; Temp 98; Pulse Ox 99% ; ko1 15:48 BP 176 / 64; Pulse 68; Resp 16; Pulse Ox 97% on R/A; ko1 18:02 Pulse 79; Resp 15; Pulse Ox 95% on R/A; ko1 MDM: 14:45 Medical Screening Exam initiated ec2 15:00 Data reviewed: vital signs, nurses notes. ED course: Patient arrives today for chronic ec2 left hip pain. Examination is unrevealing. Will obtain a left hip radiograph, will give the patient Valium for pain. Suspect chronic hip pain, doubt fracture given lack of injury. Doubt septic joint given lack of infectious symptoms.. 16:31 ED course: X-ray shows subcapital hip fracture, discussed again with patient, denies ec2 any falls injuries or trauma, possible significant osteoporosis causing the patient's fracture. Will place IV, obtain lab work and discuss orthopedic surgery.. 16:48 ED course: Discussed with hospitalist, pending admission.. ec2 16:48 ED course: Discussed with Ortho, will also evaluate.. ec2 07/24 16:20 Order name: CBC with Diff ec2 07/24 16:20 Order name: BMP ec2 07/24 18:01 Order name: Urinalysis w/ reflexes EDMS 07/24 18:06 Order name: Basic Metabolic Panel EDMS 07/24 18:06 Order name: Basic Metabolic Panel EDMS 07/24 18:06 Order name: Basic Metabolic Panel EDMS 07/24 18:06 Order name: Basic Metabolic Panel EDMS 07/24 18:06 Order name: Basic Metabolic Panel EDMS 07/24 18:06 Order name: Basic Metabolic Panel EDMS 07/24 18:06 Order name: CBC with Automated Diff EDMS 07/24 18:06 Order name: CBC with Automated Diff EDMS 07/24 18:06 Order name: CBC with Automated Diff EDMS 07/24 18:06 Order name: CBC with Automated Diff EDMS 07/24 18:06 Order name: CBC with Automated Diff EDMS 07/24 18:06 Order name: CBC with Automated Diff EDMS 07/24 18:06 Order name: Magnesium EDMS 07/24 18:06 Order name: Magnesium EDMS 07/24 18:06 Order name: Magnesium EDMS 07/24 18:06 Order name: Magnesium EDMS 07/24 18:06 Order name: Magnesium EDMS 07/24 18:07 Order name: Magnesium EDMS 07/24 18:07 Order name: Phosphorus EDMS 07/24 18:07 Order name: Phosphorus EDMS 07/24 18:07 Order name: Phosphorus EDMS 07/24 18:07 Order name: Phosphorus EDMS 07/24 18:07 Order name: Phosphorus EDMS 07/24 18:07 Order name: Phosphorus EDMS 07/24 14:59 Order name: Pelvis XRAY; Complete Time: 16:10 ec2 07/24 18:06 Order name: CONS Physician Consult EDMS 07/24 16:20 Order name: IV; Complete Time: 17:41 ec2 Administered Medications: 15:04 Drug: Diazepam PO 10 mg PO once Route: PO; ko1 15:34 Follow up: Response: No adverse reaction ko1 17:41 Drug: fentaNYL (PF) IVP 25 mcg IVP once Route: IVP; Site: right antecubital; ko1 17:56 Follow up: Response: No adverse reaction; Pain is decreased ko1 Disposition Summary: 07/24/24 16:48 Hospitalization Ordered Notes: Hospitalization Status: Inpatient Admission ec2 Provider: Abdirashid Bethea ec2 [facility] ec2 Condition: Stable ec2 Problem: new ec2 Symptoms: are unchanged ec2 Bed/Room Type: Standard ec2 Room Assignment: 220(07/24/24 18:05) cc6 Diagnosis - Left Hip Fracture ec2 Discharge Instructions: - Discharge Summary Sheet ec2 - Hip Pain ec2 Forms: - Medication Reconciliation Form ec2 - SBAR form ec2 - Leadership Thank You Letter ec2 Signatures: Dispatcher [employer] Umu Hale RN RN ko1 Edgar Crook MD MD ec2 Arianna Lanier cc6 Corrections: (The following items were deleted from the chart) 14:59 14:59 Pelvis+RAD.RAD.BRZ ordered. EDMS EDMS 15:15 15:13 Home Meds: ketoconazole 2 % Topical cream 2 times per day; ko1 ko1 16:20 16:20 CBC+H.LAB.BRZ ordered. EDMS EDMS 16:20 16:20 BASIC METABOLIC PANEL+C.LAB.BRZ ordered. EDMS EDMS 18:05 16:48 ec2 cc6
[2024-07-24] MEDS ORDERED: FENTANYL CITR 100 MCG/2 ML ONE (16:57)
--- NOTE | 2024-07-24 17:28 | P.HP ---
Certification for Inpatient Patient admitted to: Inpatient With expected LOS: >2 Midnights Patient will require the following post-hospital care: Long Term Practitioner: I am a practitioner with admitting privileges, knowledge of patient current condition, hospital course, and medical plan of care. Services: Services provided to patient in accordance with Admission requirements found in Title 42 Section 412.3 of the Code of Federal Regulations Patient History Date of Service: 07/24/24 Reason for admission: Left femur fracture History of Present Illness: Nai Ragland is an 88 year old female with pmhx Asthma; CVA; Gastroesophageal reflux disease; Hypertension; urinary retention who presented to the ED with left hip pain. She reports she is not sure when this occurred but thinks it could have happened when the CNAs put her on the toilet last night as they are not gentle. Left hip xray reports "Subcapital fracture left femur with marked angulation and displacement present at the fracture site." Dr. Trivedi consulted reporting this is non-operable. Nai will be admitted to hospitalist service for further treatment. Allergies No Known Allergies Allergy (Unverified 09/26/19 21:32) Home Medications: Apixaban [Eliquis] 5 mg PO DAILY 04/30/23 Baclofen 10 mg PO DAILY 04/30/23 Diazepam [Valium] 5 mg PO DAILY 04/30/23 Famotidine 20 mg PO DAILY 04/30/23 Folic Acid 1 mg PO DAILY 04/30/23 Furosemide 40 mg PO DAILY 04/30/23 - Past Medical/Surgical History Diabetic: No -: HTN -: Hyperlipidemia -: Large MCA stroke with left-sided weakness -: Asthma -: GERD -: Bilateral knee surgeries -: Cholecystectomy -: Hysterectomy Psychosocial/ Personal History: Currently resident of assisted living facility - Family History Father -: Heart disease Notes: MD Mother -: Hypertension - Social History Smoking Status: Never smoker Alcohol use: Yes CD- Drugs: No Caffeine use: Yes Review of Systems Musculoskeletal: Leg Pain (left hip pain) Physical Examination - Physical Exam General: Alert, In no apparent distress, Oriented x3, Other (uncomfortable) HEENT: Atraumatic, Normocephalic Neck: Supple, 2+ carotid pulse no bruit Respiratory: Clear to auscultation bilaterally, Normal air movement Cardiovascular: No edema, Normal pulses, Regular rate/rhythm, Normal S1 S2 Capillary refill: <2 Seconds Gastrointestinal: Normal bowel sounds, Soft and benign, No tenderness Musculoskeletal: No clubbing Integumentary: No rashes Neurological: Normal speech, Normal tone Assessment and Plan - Plan Assessment and plan Acute left subcapital femur fracure 2/2 osteoporosis Debilitated/ bedbound -Left hip xray reports Subcapital fracture left femur with marked angulation and displacement present at the fracture site. -pain control -consult Dr. Trivedi -Supportive care -Physical therapy consult CKD -BUN/creatinine 28/1.49, GFR 34 -Gentle IVF Asthma CVA Gastroesophageal reflux disease Hypertension urinary retention -Continue home medications as appropriate DVT ppx Eliquis Full code LOS 2 days Discharge Plan: Home Plan to discharge in: 48 Hours - Advance Directives Does patient have a Living Will: No Does patient have a Durable POA for Healthcare: No
[2024-07-24 17:41] LABS: Absolute Eosinophils 0.1 K/uL (0-0.5); Absolute Monocytes 0.6 K/uL (0.1-1.3); Absolute Neutrophil 9.3 K/uL (1.8-8.0); Basophils % 0.2 % (0-1.3); Eosinophils % 0.6 % (0-4.4); Hemoglobin 12.3 g/dL (12.0-15.0); Lymphocytes % 9.4 % (15.3-44.8); MCH 32.2 pg (27.0-35.0); MCHC 32.5 g/dL (32.0-36.0); MCV 99.1 fL (80-100); MPV 8.2 fL (7.6-11.3); Monocytes % 5.3 % (3.3-12.3); Neutrophils % 84.5 % (41.7-73.7); Platelets 234 thou/uL (152-406); RBC Red Blood Cell Count 3.84 M/uL (3.86-4.86); Red Cell Distribution Width 13.2 % (12.1-15.2)
[2024-07-24] MEDS ORDERED: BISACODYL E.C. 5 MG TAB PO PRN (17:59)
[2024-07-24 18:08] LABS: Anion Gap 7.9 mEq/L (5.0-15.0); Potassium 3.9 mEq/L (3.5-5.1)
[2024-07-24] MEDS: NA CHLORIDE 0.9% 1,000 ML IV SCH (20:12)
[2024-07-24] MEDS: HYDROCODONE/APAP 7.5/325 MG TAB PO PRN (20:12)
[2024-07-25 04:20] LABS: Specific Gravity 1.012 (1.005-1.030); Sqamous Epithelial <5 /HPF (None Seen); Urine Bacteria <20 /HPF (<20); Urine Bilirubin NEGATIVE (Negative); Urine Blood Negative (Negative); Urine Clarity Extremely Turbid (Clear); Urine Color Light-Yellow (Yellow); Urine Culture Reflex Order REFLEXED; Urine Glucose NEGATIVE (Negative); Urine Ketones NEGATIVE (Negative); Urine Microscopic Reflex YN ORDER UMIC; Urine Nitrite NEGATIVE (Negative); Urine Protein NEGATIVE (Negative); Urine RBC <5 /HPF (None Seen); Urine Urobilinogen Normal (Normal)
[2024-07-25 05:58] LABS: Absolute Eosinophils 0.1 K/uL (0-0.5); Absolute Lymphocytes (CBC) 1.4 K/uL (0.7-4.9); Absolute Monocytes 0.7 K/uL (0.1-1.3); Basophils % 0.3 % (0-1.3); Eosinophils % 0.8 % (0-4.4); Hematocrit 36.6 % (36.0-45.0); Hemoglobin 11.8 g/dL (12.0-15.0); MCH 32.1 pg (27.0-35.0); MCHC 32.2 g/dL (32.0-36.0); MCV 99.8 fL (80-100); MPV 8.6 fL (7.6-11.3); Neutrophils % 72.9 % (41.7-73.7); Platelets 199 thou/uL (152-406); RBC Red Blood Cell Count 3.66 M/uL (3.86-4.86); Red Cell Distribution Width 13.4 % (12.1-15.2)
[2024-07-25 06:03] LABS: Anion Gap 8.6 mEq/L (5.0-15.0); Magnesium 2.1 mg/dL (1.6-2.4); Phosphorus 3.5 mg/dL (2.5-4.9); Potassium 3.6 mEq/L (3.5-5.1)
--- NOTE | 2024-07-25 06:35 | P.PN ---
Date of Service: 07/25/24 Subjective Awake, continues to have pain to left hip, also reports discomfort to right knee Dr. Trivedi visited with Nai, ordered a right knee xray with no loosening of prosthesis She is not interested in eating or drinking protien supplements, refusing pain medications as this may cause constipation ROS 10 point ROS as noted above, otherwise negative Physical Exam General: Alert and Oriented x3, Other (uncomfortable), NAD HEENT: Atraumatic, Normocephalic Neck: Supple, 2+ carotid pulse no bruit Respiratory: Clear to auscultation bilaterally, Normal air movement Cardiovascular: No edema, Normal pulses, RRR, Normal S1 S2 Capillary refill: <2 Seconds Gastrointestinal: Normal bowel sounds, Soft on palpation, No tenderness Musculoskeletal: No clubbing, left hip pain, peripheral pulse 2+ Integumentary: No rashes Neurological: Normal speech, Normal tone Vitals Reviewed Problem list Acute left subcapital femur fracure 2/2 osteoporosis Debilitated/ bedbound Right knee pain CKD Asthma CVA Gastroesophageal reflux disease Hypertension urinary retention Assessment and Plan Acute left subcapital femur fracure 2/2 osteoporosis Debilitated/ bedbound Right knee pain -Left hip xray reports Subcapital fracture left femur with marked angulation and displacement present at the fracture site. -pain control -consult Dr. Trivedi -Supportive care -Physical therapy consult. non weight bearing -right knee xray reports "Right total knee arthroplasty is noted. No finding to suggest loosening of the prosthesis. No fracture. Soft tissue swelling is seen anterior to the proximal tibia. No significant joint fluid." CKD -BUN/creatinine 27/1.36, GFR 37 -Gentle IVF Asthma CVA Gastroesophageal reflux disease Hypertension urinary retention -Continue home medications as appropriate DVT ppx Eliquis Full code LOS 2 days Discharge Plan: Home Plan to discharge in: 48 Hours
[2024-07-25] MEDS: LABETALOL HCL 100 MG TAB PO SCH (09:29)
[2024-07-25] MEDS: FOLIC ACID 1 MG TABLET PO SCH (09:32)
[2024-07-25] MEDS: APIXABAN 5 MG TABLET PO SCH (09:32)
[2024-07-25] MEDS: FUROSEMIDE 40 MG TABLET PO SCH (09:32)
[2024-07-25] MEDS: BACLOFEN 10 MG TAB PO SCH (09:32)
[2024-07-25] MEDS: HYDRALAZINE HCL 25 MG TABLET PO SCH (09:32)
[2024-07-25] MEDS: DIAZEPAM 5 MG TABLET PO SCH (09:32)
[2024-07-25] MEDS: FAMOTIDINE 20 MG TAB PO SCH (09:32)
[2024-07-25] MEDS: POTASSIUM CL SA 10 MEQ TAB PO ONE (09:33)
[2024-07-25] MEDS: PANTOPRAZOLE 40MG TABLET PO SCH (09:33)
--- NOTE | 2024-07-25 10:20 | RAD REPORT ---
EXAMINATION: XR RIGHT KNEE CLINICAL INDICATION: Female, 88 years old. pain TECHNIQUE: Multiple views of the right knee were obtained. COMPARISON: No prior exam. FINDINGS: Right total knee arthroplasty is noted. No finding to suggest loosening of the prosthesis. No fracture. Soft tissue swelling is seen anterior to the proximal tibia. No significant joint fluid.
[2024-07-25] MEDS: HYDRALAZINE HCL 20 MG/ML VIAL IV PRN (20:14)
[2024-07-26] MEDS: ACETAMINOPHEN 325 MG TABLET PO PRN (15:18)
[2024-07-26] MEDS: CEFTRIAXONE 1,000 MG in NA CHLORIDE 0.9% 50 ML IVPB SCH (15:39)
--- NOTE | 2024-07-26 15:42 | P.PN ---
Date of Service: 07/26/24 Subjective Awake, ate three bites of eggs and drank water Reports feeling uncomfortable as she is lying on her left side Barrier to discharge is the orthopedic recommendation of nonweightbearing and physical therapy Nai refused lab draw this AM ROS 10 point ROS as noted above, otherwise negative Physical Exam General: AAOx3, Other (uncomfortable), NAD HEENT: Atraumatic, Normocephalic Neck: Supple, 2+ carotid pulse no bruit Respiratory: Clear to auscultation bilaterally, Normal air movement, on RA Cardiovascular: No edema, Normal pulses, RRR, Normal S1 S2 Capillary refill: <2 Seconds Gastrointestinal: Normal bowel sounds, Soft on palpation, No tenderness Musculoskeletal: No clubbing, left hip pain, peripheral pulse 2+ Integumentary: No rashes Neurological: Normal speech, Normal tone Vitals Reviewed Problem list Acute left subcapital femur fracure 2/2 osteoporosis Debilitated/ bedbound Right knee pain CKD Asthma CVA Gastroesophageal reflux disease Hypertension urinary retention Assessment and Plan Acute left subcapital femur fracure 2/2 osteoporosis Debilitated/ bedbound Right knee pain -Left hip xray reports Subcapital fracture left femur with marked angulation and displacement present at the fracture site. -pain control -Dr. Trivedi- non weight bearing -Supportive care -Physical therapy consult. non weight bearing -right knee xray reports "Right total knee arthroplasty is noted. No finding to suggest loosening of the prosthesis. No fracture. Soft tissue swelling is seen anterior to the proximal tibia. No significant joint fluid." CKD -BUN/creatinine 27/1.36, GFR 37 07/25 -Gentle IVF Asthma CVA Gastroesophageal reflux disease Hypertension urinary retention -Continue home medications as appropriate DVT ppx Eliquis Full code LOS 2 days Discharge Plan: Home Plan to discharge in: 48 Hours
--- NOTE | 2024-07-27 09:26 | CON ---
Date of Consultation: 07/25/2024 Reason For Consultation: Left hip pain. History Of Present Illness: Nai is an 88-year-old female who was brought to the emergency room after having increased pain in the left hip. 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 In the emergency room, x-rays demonstrated left femoral neck fracture. The patient denies any fall, but does report being placed on the toilet a day prior to admission with some increased pain afterwards. Review of Systems: As above, otherwise negative. Past Medical History: Includes hypertension, hyperlipidemia, stroke with left- sided weakness, asthma, GERD. Past Surgical History: Includes bilateral knee arthroplasty, cholecystectomy, hysterectomy. Family History: Reviewed and noncontributory. Social History: Denies tobacco, reports occasional alcohol use. Home Medications: Eliquis, baclofen, Valium, furosemide, folic acid, famotidine. Allergies: NO KNOWN DRUG ALLERGIES. Physical Examination: General: No apparent distress. HEENT: Normocephalic, atraumatic. Neck: Supple. Cardiovascular: Brisk cap refill to all digits. Chest: Nonlabored breathing. Abdomen: Nondistended. Psychiatric: Responds to exam. Extremities: Left lower extremity: Some pain with range of motion of the left hip. Tenderness to palpation of the left hip. Contractures noted in the left lower extremity. Right lower extremity: Functional range of motion without pain. No gross deformities. No obvious dislocations. Right upper extremity functional range of motion without pain. No gross deformities also locations. Left upper extremity: No tenderness to palpation over the left upper extremity weakness secondary to her stroke with contractures. Diagnostic Studies: X-rays of the left hip demonstrated a displaced left femoral neck fracture. Assessment/plan: Nai is an 88-year-old female with a left femoral neck fracture. I discussed the patient at length her diagnosis as well as treatment plan. Given her multiple medical comorbidities as well as her nonambulatory status and contractures of the left lower extremity, we discussed the high risk nature of the surgery as well as increased risk of morbidity, mortality with surgery. She expressed understanding. We will proceed with non-surgical treatment. The patient will be nonweightbearing on the left lower extremity. Physical Therapy may be consulted to aid with mobilization. We discussed hospice care to aid with pain management given the potential increased pain from the fracture. We discussed followup in my clinic as needed if she has any significant issues with her left hip. CV/MODL Voice ID: [id number] Report ID: [id number] ANGLE
[2024-07-27] MEDS: HYDRALAZINE HCL 25 MG TABLET PO SCH (09:52)
[2024-07-27] MEDS: CIPROFLOXACIN 400mg IV 400 MG/200 ML BAG IV SCH (11:03)
[2024-07-27 12:16] LABS: Absolute Eosinophils 0.2 K/uL (0-0.5); Absolute Lymphocytes (CBC) 0.8 K/uL (0.7-4.9); Absolute Monocytes 0.6 K/uL (0.1-1.3); Absolute Neutrophil 5.4 K/uL (1.8-8.0); Basophils % 0.3 % (0-1.3); Eosinophils % 2.2 % (0-4.4); Hemoglobin 11.6 g/dL (12.0-15.0); Lymphocytes % 11.9 % (15.3-44.8); MCH 32.2 pg (27.0-35.0); MCHC 32.3 g/dL (32.0-36.0); MCV 99.7 fL (80-100); MPV 8.5 fL (7.6-11.3); Monocytes % 8.4 % (3.3-12.3); Neutrophils % 77.2 % (41.7-73.7); Platelets 239 thou/uL (152-406); RBC Red Blood Cell Count 3.61 M/uL (3.86-4.86); Red Cell Distribution Width 13.5 % (12.1-15.2)
[2024-07-27 12:36] LABS: Anion Gap 8.6 mEq/L (5.0-15.0); Phosphorus 2.8 mg/dL (2.5-4.9); Potassium 3.6 mEq/L (3.5-5.1)
--- NOTE | 2024-07-27 18:49 | P.PN ---
Date of Service: 07/27/24 Subjective sleeping but awakens easily IV changed today refusing to eat, she does not have an appetite starting IVF ROS 10 point ROS as noted above, otherwise negative Physical Exam General: orientedx3, Other (uncomfortable), NAD HEENT: Atraumatic, Normocephalic Neck: Supple, 2+ carotid pulse no bruit Respiratory: Clear to auscultation bilaterally, Normal air movement, on RA Cardiovascular: No edema, Normal pulses, RRR, Normal S1 S2 Capillary refill: <2 Seconds Gastrointestinal: Normal bowel sounds, Soft on palpation, No tenderness Musculoskeletal: No clubbing, left hip pain, peripheral pulse 2+ Integumentary: No rashes Neurological: Normal speech, Normal tone Vitals Reviewed Problem list Acute left subcapital femur fracure 2/2 osteoporosis Debilitated/ bedbound Right knee pain CKD Asthma CVA Gastroesophageal reflux disease Hypertension urinary retention Assessment and Plan Acute left subcapital femur fracure 2/2 osteoporosis Debilitated/ bedbound Right knee pain -Left hip xray reports Subcapital fracture left femur with marked angulation and displacement present at the fracture site. -pain control -Dr. Trivedi- non weight bearing, cleared for discharge -Supportive care -Physical therapy consult. non weight bearing -right knee xray reports "Right total knee arthroplasty is noted. No finding to suggest loosening of the prosthesis. No fracture. Soft tissue swelling is seen anterior to the proximal tibia. No significant joint fluid." UTI -urine culture growing enterococcus faecalis and E coli sensitive to nitrofurantoin - Ciprofloxacin and nitrofurantoin CKD -BUN/creatinine 29/1.31, GFR 39 07/25 -Gentle IVF Asthma CVA Gastroesophageal reflux disease Hypertension urinary retention -Continue home medications as appropriate DVT ppx Eliquis Full code LOS 2 days Discharge Plan: Home Plan to discharge in: 48 Hours
[2024-07-27] MEDS: NITROFURAN MACRO 100 MG CAP PO SCH (21:58)
[2024-07-28] MEDS: NA CHLORIDE 0.9% 1,000 ML IV SCH (02:20)
[2024-07-28 05:32] VITALS: BMI 29.9
[2024-07-28 05:55] LABS: Anion Gap 9.5 mEq/L (5.0-15.0); Magnesium 1.9 mg/dL (1.6-2.4); Phosphorus 3.2 mg/dL (2.5-4.9); Potassium 3.5 mEq/L (3.5-5.1)
[2024-07-28 06:10] LABS: Absolute Eosinophils 0.2 K/uL (0-0.5); Absolute Lymphocytes (CBC) 1.1 K/uL (0.7-4.9); Absolute Monocytes 0.9 K/uL (0.1-1.3); Absolute Neutrophil 5.5 K/uL (1.8-8.0); Basophils % 0.5 % (0-1.3); Eosinophils % 2.6 % (0-4.4); Hematocrit 34.4 % (36.0-45.0); Hemoglobin 11.1 g/dL (12.0-15.0); Lymphocytes % 14.4 % (15.3-44.8); MCHC 32.3 g/dL (32.0-36.0); MCV 99.3 fL (80-100); Monocytes % 11.3 % (3.3-12.3); Neutrophils % 71.2 % (41.7-73.7); Nucleated Red Blood Cells % 0.1 % (0-0); Platelets 230 thou/uL (152-406); RBC Red Blood Cell Count 3.47 M/uL (3.86-4.86); Red Cell Distribution Width 13.1 % (12.1-15.2)
--- NOTE | 2024-07-28 10:26 | P.PN ---
Date of Service: 07/28/24 Subjective Awake and smiling this AM Nai's family would like to explore IRF options Lying flat on her back, reports discomfort to be at a 45 degree angle, will use Incentive spirometer remains hypertensive, adjusting hydralazine, will continue to monitor ROS 10 point ROS as noted above, otherwise negative Physical Exam General: Alert and orientedx3, Other (uncomfortable), NAD HEENT: Atraumatic, Normocephalic Neck: Supple, 2+ carotid pulse no bruit Respiratory: Clear to auscultation bilaterally, Normal air movement, on RA Cardiovascular: No edema, Normal pulses, RRR, Normal S1 S2 Capillary refill: <2 Seconds Gastrointestinal: Normal bowel sounds, Soft and benign on palpation, No tenderness Musculoskeletal: No clubbing, left hip pain, peripheral pulse 2+ Integumentary: No rashes Neurological: Normal speech, Normal tone Vitals Reviewed Problem list Acute left subcapital femur fracure 2/2 osteoporosis Debilitated/ bedbound Right knee pain CKD Asthma CVA Gastroesophageal reflux disease Hypertension urinary retention Assessment and Plan Acute left subcapital femur fracure 2/2 osteoporosis Debilitated/ bedbound Right knee pain -Left hip xray reports Subcapital fracture left femur with marked angulation and displacement present at the fracture site. -pain control -Dr. Trivedi- non weight bearing, cleared for discharge -Supportive care -Physical therapy consult. non weight bearing -right knee xray reports "Right total knee arthroplasty is noted. No finding to suggest loosening of the prosthesis. No fracture. Soft tissue swelling is seen anterior to the proximal tibia. No significant joint fluid." UTI -urine culture growing enterococcus faecalis and E coli sensitive to nitrofurantoin - Ciprofloxacin and nitrofurantoin CKD -BUN/creatinine 31/1.52, GFR 33 -Gentle IVF Asthma CVA Gastroesophageal reflux disease Hypertension urinary retention -Continue home medications as appropriate -Adjusted hydralazine DVT ppx Eliquis Full code Dispo- SNF
[2024-07-28] MEDS: AMOX/K CLAV 500 MG TAB PO SCH (11:00)
[2024-07-28] MEDS: HYDRALAZINE HCL 25 MG TABLET PO SCH (14:39)
[2024-07-28] MEDS: FENTANYL CITR 100 MCG/2 ML IV PRN (23:51)
[2024-07-29 06:52] LABS: Absolute Eosinophils 0.2 K/uL (0-0.5); Absolute Lymphocytes (CBC) 1.1 K/uL (0.7-4.9); Absolute Monocytes 0.6 K/uL (0.1-1.3); Absolute Neutrophil 5.7 K/uL (1.8-8.0); Basophils % 0.5 % (0-1.3); Hematocrit 37.8 % (36.0-45.0); Hemoglobin 12.5 g/dL (12.0-15.0); Lymphocytes % 14.2 % (15.3-44.8); MCH 32.5 pg (27.0-35.0); MCHC 33.1 g/dL (32.0-36.0); MCV 98.2 fL (80-100); MPV 8.1 fL (7.6-11.3); Monocytes % 8.3 % (3.3-12.3); Nucleated Red Blood Cells % 0.1 % (0-0); Platelets 282 thou/uL (152-406); RBC Red Blood Cell Count 3.85 M/uL (3.86-4.86); Red Cell Distribution Width 13.1 % (12.1-15.2)
[2024-07-29 07:10] LABS: Anion Gap 9.4 mEq/L (5.0-15.0); Phosphorus 2.8 mg/dL (2.5-4.9); Potassium 3.4 mEq/L (3.5-5.1)
[2024-07-29] MEDS: POTASSIUM CL SA 10 MEQ TAB PO ONE (08:55)
--- NOTE | 2024-07-29 18:03 | P.PN ---
Date of Service: 07/29/24 Subjective Awake and conversing well Spoke with family to discuss discharge options [facility]hab Likely pain causing hypertension ROS 10 point ROS as noted above, otherwise negative Physical Exam General: AAO x3, NAD, conversing well HEENT: Atraumatic, Normocephalic Neck: Supple, 2+ carotid pulse no bruit Respiratory: Clear to auscultation bilaterally, Normal air movement, on RA Cardiovascular: No edema, Normal pulses, Regular rate and rhythm, Normal S1 S2 Capillary refill: <2 Seconds Gastrointestinal: Normal bowel sounds, nontender, Soft on palpation Musculoskeletal: No clubbing, left hip pain, peripheral pulse 2+ Integumentary: No rashes Neurological: Normal speech, Normal tone Vitals Reviewed Problem list Acute left subcapital femur fracure 2/2 osteoporosis Debilitated/ bedbound Right knee pain CKD Asthma CVA Gastroesophageal reflux disease Hypertension urinary retention Assessment and Plan Acute left subcapital femur fracure 2/2 osteoporosis Debilitated/ bedbound Right knee pain -Left hip xray reports Subcapital fracture left femur with marked angulation and displacement present at the fracture site. -pain control -Dr. Trivedi- non weight bearing, cleared for discharge -Supportive care -Physical therapy consult. non weight bearing -right knee xray reports "Right total knee arthroplasty is noted. No finding to suggest loosening of the prosthesis. No fracture. Soft tissue swelling is seen anterior to the proximal tibia. No significant joint fluid." UTI - urine culture growing enterococcus faecalis and E coli sensitive to nitrofurantoin - Ciprofloxacin and nitrofurantoin CKD -BUN/creatinine 30/1.31, GFR 39 -Gentle IVF Asthma CVA Gastroesophageal reflux disease Hypertension urinary retention -Continue home medications as appropriate -Adjusted hydralazine DVT ppx Eliquis Full code Dispo- SNF
[2024-07-30] MEDS: BISACODYL E.C. 5 MG TAB PO SCH (09:23)
[2024-07-30] MEDS: LOSARTAN/HCTZ 50-12.5 PO SCH (09:30)
[2024-07-30] MEDS: MAGNESIUM OXIDE 400 MG TAB PO SCH (09:30)
[2024-07-30] MEDS: LOSARTAN POTASSIUM 50 MG TABLET PO SCH (10:12)
--- NOTE | 2024-07-30 12:04 | P.PN ---
Date of Service: 07/30/24 Subjective Sleeping but awakens easily reports some pain relief Likely pain causing hypertension ROS 10 point ROS as noted above, otherwise negative Physical Exam General: AAO x3, NAD, conversing well HEENT: Atraumatic, Normocephalic Neck: Supple, 2+ carotid pulse no bruit Respiratory: Clear to auscultation bilaterally, Normal air movement, on RA Cardiovascular: No edema, Normal pulses, RRR, Normal S1 S2 Capillary refill: <2 Seconds Gastrointestinal: Normal active bowel sounds, Soft on palpation, nontender Musculoskeletal: No clubbing, left hip pain, peripheral pulse 2+ Integumentary: No rashes Neurological: Normal speech, Normal tone Vitals Reviewed Problem list Acute left subcapital femur fracure 2/2 osteoporosis Debilitated/ bedbound Right knee pain CKD Asthma CVA Gastroesophageal reflux disease Hypertension urinary retention Assessment and Plan Acute left subcapital femur fracure 2/2 osteoporosis Debilitated/ bedbound Right knee pain -Left hip xray reports Subcapital fracture left femur with marked angulation and displacement present at the fracture site. -pain control -Dr. Trivedi- non weight bearing, cleared for discharge -Supportive care -Physical therapy consult. non weight bearing -right knee xray reports "Right total knee arthroplasty is noted. No finding to suggest loosening of the prosthesis. No fracture. Soft tissue swelling is seen anterior to the proximal tibia. No significant joint fluid." UTI - urine culture growing enterococcus faecalis and E coli sensitive to nitrofurantoin - Ciprofloxacin and nitrofurantoin CKD -BUN/creatinine 30/1.31, GFR 39 (07/29) -consult nephrology Asthma CVA Gastroesophageal reflux disease Hypertension urinary retention -Continue home medications as appropriate -Adjusted hydralazine DVT ppx Eliquis Full code Dispo- [facility] [place]
--- NOTE | 2024-07-30 13:13 | P.CNS ---
Date of Consult: 07/30/24 Reason for Consult: Renal insufficiency Requesting Physician: Margot Block Chief Complaint: Left femur fracture History of Present Illness: Nai Ragland is an 88 year old female with pmhx of possible prior CVA, chronic hypertension, renal insufficiency who presented to the ED with left hip pain, recent onset, mod to severe, radiating down left leg. Left hip xray reported "Subcapital fracture left femur with marked angulation and displacement present at the fracture site." Ortho was consulted and recommended non operative management. Pt reports pain not well controlled. She denies CP, dyspnea, N/V or other. Allergies No Known Allergies Allergy (Unverified 09/26/19 21:32) Home Medications: Apixaban [Eliquis] 5 mg PO BID 04/30/23 Baclofen 10 mg PO BID 04/30/23 Diazepam [Valium] 5 mg PO DAILY 04/30/23 Famotidine 20 mg PO BEDTIME 04/30/23 Folic Acid 1 mg PO DAILY 04/30/23 Furosemide 40 mg PO BID 04/30/23 Hydralazine [Apresoline*] 50 mg PO TID 07/24/24 Labetalol HCl [Trandate] 200 mg PO BID 07/24/24 Losartan/Hydrochlorothiazide [Losartan-Hctz 100-12.5 mg Tab] 100 mg PO DAILY 07/24/24 Magnesium Oxide [Mag-Oxide Magnesium] 400 mg PO DAILY 07/24/24 Omeprazole 20 mg PO DAILY 07/24/24 Potassium Chloride 20 meq PO DAILY 07/24/24 Acetaminophen [Tylenol] 650 mg PO Q6H PRN 07/27/24 Acetaminophen with Codeine [Tylenol with-Codeine #3 Tablet] 30 - 300 mg PO Q8H PRN 07/27/24 Albuterol Sulfate [Ventolin Hfa] 2 puff PO Q6H PRN 07/27/24 Docusate Sodium [Stool Softener] 200 mg PO DAILY 07/27/24 Fluticasone Propion/Salmeterol [Fluticasone-Salmeterol 250-50] 1 puff IH BID 07/27/24 Guaifenesin/Dextromethorphan [Guaifenesin-Dm 200-20 mg/10 ml] 10 ml PO QID 07/27/24 Hydrocodone Bit/Acetaminophen [[place] 7.5-325 Tablet] 1 ea PO Q12H PRN 07/27/24 Hydrocort Acetate Suppos [Anucort-Hc Suppository*] 25 mg .ROUTE Q12H 07/27/24 Ibuprofen [Ibu] 400 mg PO BID PRN 07/27/24 Ipratropium/Albuterol Sulfate [Iprat-Albut 0.5-3(2.5) mg/3 ml] 1 vial IN Q8H PRN 07/27/24 Ketoconazole [Nizoral A-D] 1 ea TOP DIRECTED 07/27/24 Mag Hydroxide 8% [Milk Of Magnesia] 30 ml PO Q24H 07/27/24 Melatonin 6 mg SL DAILY 6PM 07/27/24 Menthol [Biofreeze] 1 ea TOP Q12H 07/27/24 Propylene Glycol [Systane Balance] 1 drop OPTH DIRECTED 07/27/24 - Past Medical/Surgical History Diabetic: No -: HTN -: Hyperlipidemia -: Large MCA stroke with left-sided weakness -: Asthma -: GERD -: Bilateral knee surgeries -: Cholecystectomy -: Hysterectomy Psychosocial/ Personal History: Currently resident of assisted living facility - Family History Father Medical History: Heart disease Notes: [facility] Mother Medical History: Hypertension - Social History Alcohol use: Yes CD- Drugs: No Caffeine use: Yes Review of Systems General: Unremarkable Eyes: Unremarkable ENT: Unremarkable Respiratory: Other (Recent CXR with some infiltrates, no current resp distress or O2 needs) Cardiovascular: As per HPI Gastrointestinal: Unremarkable Genitourinary: Unremarkable Musculoskeletal: As per HPI Integumentary: Bruising Neurological: As per HPI Physical Examination Temp Pulse Resp BP Pulse Ox 97.1 F 79 16 145/66 H 94 07/30/24 12:00 07/30/24 12:00 07/30/24 12:00 07/30/24 12:00 07/30/24 12:00 General: Alert, In no apparent distress, Cooperative HEENT: Atraumatic, Normocephalic Neck: Supple Respiratory: Normal air movement, Other (no rhonchi anteriorly) Cardiovascular: Regular rate/rhythm, No gallops Gastrointestinal: Soft and benign, Non-distended, No tenderness Musculoskeletal: No swelling, Other (Lt hip/leg ROM not tested) Integumentary: No rashes, Other (left leg ecchymoses) Neurological: Normal speech, Normal affect Conclusions/Impression: A/P) 1. Abnormal results of kidney function tests, possibly reflecting Stage III CKD NOS, eGFR calculators with limitations in the v.elderly, renal function tests within recent baseline range 2. Avoid PO NSAIDs as part of pain regimen 3. Accelerated HTN, possibly secondary to sympathetic response with pain, cont home meds including ARB agent for now, trend 4. Diastolic dysfunction, chronic, likely. Recent CXR/reports of SOB, monitor closely, cont PO Lasix 5. Abnormal findings in urine, other. Mild pyuria. Bacteriuria POA. Ok to cont macrobid although effectiveness reduced in decreased CrCl states
[2024-07-30 14:45] LABS: Anion Gap 8.9 mEq/L (5.0-15.0); Magnesium 2.2 mg/dL (1.6-2.4); Phosphorus 2.7 mg/dL (2.5-4.9); Potassium 3.9 mEq/L (3.5-5.1)
[2024-07-30] MEDS: FLUTICASONE PROPION IH SCH (19:51)
[2024-07-30] MEDS: SALMETEROL IH SCH (19:51)
[2024-07-30] MEDS: BLST W D IH SCH (19:51)
[2024-07-31 07:21] LABS: Anion Gap 10.8 mEq/L (5.0-15.0); Magnesium 2.3 mg/dL (1.6-2.4); Phosphorus 2.7 mg/dL (2.5-4.9); Potassium 3.8 mEq/L (3.5-5.1)
--- NOTE | 2024-07-31 09:15 | P.PN ---
Date of Service: 07/31/24 Subjective No acute events overnight C/O ABRIL hip pain Concerned with lab draws/sticks ROS 10 point ROS as noted above, otherwise negative Physical Exam General: AAO x3, NAD, conversing well HEENT: Atraumatic, Normocephalic Neck: Supple, 2+ carotid pulse no bruit Respiratory: Clear to auscultation bilaterally, Normal air movement, on RA Cardiovascular: No edema, Normal pulses, RRR, Normal S1 S2 Capillary refill: <2 Seconds Gastrointestinal: Normal active bowel sounds, Soft on palpation, nontender Musculoskeletal: No clubbing, left hip pain, peripheral pulse 2+ Integumentary: No rashes Neurological: Normal speech, Normal tone Vitals Reviewed Problem list Acute left subcapital femur fracure 2/2 osteoporosis Debilitated/ bedbound Right knee pain CKD Asthma CVA Gastroesophageal reflux disease Hypertension urinary retention Plan Acute left subcapital femur fracure 2/2 osteoporosis Debilitated/ bedbound Right knee pain -Left hip xray reports Subcapital fracture left femur with marked angulation and displacement present at the fracture site. -pain control -Dr. Trivedi- non weight bearing, cleared for discharge, non operative given patient is primarily bedbound at baseline and surgical risk/benefit -Physical therapy consult. non weight bearing -right knee xray reports "Right total knee arthroplasty is noted. No finding to suggest loosening of the prosthesis. No fracture. Soft tissue swelling is seen anterior to the proximal tibia. No significant joint fluid." UTI - urine culture growing enterococcus faecalis and E coli sensitive to nitrofurantoin - Now on augmentin and nitrofurantoin CKD -nephrology following Asthma CVA Gastroesophageal reflux disease Hypertension urinary retention -Continue home medications as appropriate -Adjusted hydralazine DVT ppx Eliquis Full code Dispo- [facility] [place]
--- NOTE | 2024-07-31 10:10 | P.PN ---
(S) Pt seen resting in bed, no acute distress, denies CP or dyspnea while lying supine (O) Vitals reviewed in the EMR General: Alert, In no apparent distress, Cooperative HEENT: Atraumatic, Normocephalic Neck: Supple Respiratory: Normal air movement, Other (no rhonchi anteriorly) Cardiovascular: Regular rate/rhythm, No gallops Gastrointestinal: Soft and benign, Non-distended, No tenderness Musculoskeletal: No swelling, Other (Lt hip/leg ROM not tested) Integumentary: No rashes, Other (left leg ecchymoses) Neurological: Normal speech, Normal affect Conclusions/Impression: A/P) 1. Abnormal results of kidney function tests, possibly reflecting Stage III CKD NOS, eGFR calculators with limitations in the v.elderly, renal function tests within recent baseline range and no need to check daily 2. Avoid PO NSAIDs as part of pain regimen 3. Accelerated HTN, possibly secondary to sympathetic response with pain, cont home meds including ARB agent for now, trend 4. Diastolic dysfunction, chronic, likely. Recent CXR/reports of SOB although not currently, monitor closely, cont PO Lasix 5. Abnormal findings in urine, other. Mild pyuria. Bacteriuria POA. Ok to cont macrobid although effectiveness reduced in decreased CrCl states. Noted addition of Augmentin
[2024-07-31] MEDS: HYDROCODONE/APAP 7.5/325 MG TAB PO PRN (15:46)
[2024-07-31 22:15] VITALS: O2SAT 95
[2024-07-31] MEDS: MORPHINE 2 MG/ML SYR IV PRN (22:27)
--- NOTE | 2024-08-01 09:06 | P.PN ---
Date of Service: 08/01/24 Subjective No acute events overnight C/O ABRIL hip pain ROS 10 point ROS as noted above, otherwise negative Physical Exam General: AAO x3, NAD, conversing well HEENT: Atraumatic, Normocephalic Neck: Supple, 2+ carotid pulse no bruit Respiratory: Clear to auscultation bilaterally, Normal air movement, on RA Cardiovascular: No edema, Normal pulses, RRR, Normal S1 S2 Capillary refill: <2 Seconds Gastrointestinal: Normal active bowel sounds, Soft on palpation, nontender Musculoskeletal: No clubbing, left hip pain, peripheral pulse 2+ Integumentary: No rashes Neurological: Normal speech, Normal tone Vitals Reviewed Problem list Acute left subcapital femur fracure 2/2 osteoporosis Debilitated/ bedbound Right knee pain CKD Asthma CVA Gastroesophageal reflux disease Hypertension urinary retention Plan Acute left subcapital femur fracure 2/2 osteoporosis Debilitated/ bedbound Right knee pain -Left hip xray reports Subcapital fracture left femur with marked angulation and displacement present at the fracture site. -pain control -Dr. Trivedi- non weight bearing, cleared for discharge, non operative given surgical risk/benefit -Patient usually able to transfer with assistance to wheel chair, unable to at this time -Physical therapy consult. non weight bearing -right knee xray reports "Right total knee arthroplasty is noted. No finding to suggest loosening of the prosthesis. No fracture. Soft tissue swelling is seen anterior to the proximal tibia. No significant joint fluid." UTI - urine culture growing enterococcus faecalis and E coli sensitive to nitrofurantoin - Now on augmentin and nitrofurantoin CKD -nephrology following Asthma CVA Gastroesophageal reflux disease Hypertension urinary retention -Continue home medications as appropriate -Adjusted hydralazine DVT ppx Eliquis Full code Dispo- [facility] [place]
--- NOTE | 2024-08-01 10:15 | P.DS ---
Admission Date: 07/24/24 Discharge Date: 08/01/24 Disposition: TRANSFER TO SNF - REHAB Discharge Condition: GOOD Reason for Admission: Left femur fracture Consultations: Orthopedic surgeryDr. Trivedi NephrologyDr. Azevedo Brief History of Present Illness: Nai Ragland is an 88 year old female with pmhx Asthma; CVA; Gastroesophageal reflux disease; Hypertension; urinary retention who presented to the ED with left hip pain. She reports she is not sure when this occurred but thinks it could have happened when the CNAs put her on the toilet last night as they are not gentle. Left hip xray reports "Subcapital fracture left femur with marked angulation and displacement present at the fracture site." Dr. Trivedi consulted reporting this is non-operable. Nai will be admitted to hospitalist service for further treatment. Hospital Course: Problem list Acute left subcapital femur fracure 2/2 osteoporosis Debilitated/ bedbound Right knee pain CKD Asthma CVA Gastroesophageal reflux disease Hypertension urinary retention Patient was admitted to hospital for subcapital fracture of left femur. She was evaluated by orthopedic surgery who did not recommend surgery as the risk would outweigh the benefit in her case. Her pain was managed with hydrocodone, baclofen. Her urine culture grew Enterococcus and E. coli, she is currently being treated with Macrobid and Augmentin. She will need another 2 days of Macrobid and 4 days of Augmentin. See med rec for further details. She has been accepted to [facility] for SNF, previously was residing at [facility]. Her creatinine baseline is around 1.3, 07/31 it was 1.18. Nephrology recommends avoiding p.o. NSAIDs Vital Signs/Physical Exam: Temp Pulse Resp BP Pulse Ox 97.8 F 78 17 143/63 H 93 08/01/24 08:00 08/01/24 10:12 08/01/24 08:00 08/01/24 10:12 08/01/24 08:00 General: Alert, In no apparent distress, Oriented x3 HEENT: Atraumatic, PERRLA Neck: Supple, JVD not distended Respiratory: Clear to auscultation bilaterally, Normal air movement Cardiovascular: Regular rate/rhythm, Normal S1 S2 Gastrointestinal: Normal bowel sounds, No tenderness Musculoskeletal: No tenderness Integumentary: No rashes Neurological: Normal speech, Normal tone, Normal affect Laboratory Data at Discharge: WBC 7.70 thou/uL (4.3-10.9) 07/29/24 06:43 Hgb 12.5 g/dL (12.0-15.0) D 07/29/24 06:43 Hct 37.8 % (36.0-45.0) 07/29/24 06:43 Plt Count 282 thou/uL (152-406) 07/29/24 06:43 Sodium 138 mEq/L (136-145) 07/31/24 06:44 Potassium 3.8 mEq/L (3.5-5.1) 07/31/24 06:44 BUN 30 mg/dL (7-18) H 07/31/24 06:44 Creatinine 1.18 mg/dL (0.55-1.02) H 07/31/24 06:44 Glucose 103 mg/dL (74-106) 07/31/24 06:44 Phosphorus 2.7 mg/dL (2.5-4.9) 07/31/24 06:44 Magnesium 2.3 mg/dL (1.6-2.4) 07/31/24 06:44 Home Medications: Apixaban [Eliquis] 5 mg PO BID 04/30/23 Baclofen 10 mg PO BID 04/30/23 Diazepam [Valium] 5 mg PO DAILY 04/30/23 Famotidine 20 mg PO BEDTIME 04/30/23 Folic Acid 1 mg PO DAILY 04/30/23 Furosemide 40 mg PO BID 04/30/23 Hydralazine [Apresoline*] 50 mg PO TID 07/24/24 Labetalol HCl [Trandate] 200 mg PO BID 07/24/24 Losartan/Hydrochlorothiazide [Losartan-Hctz 100-12.5 mg Tab] 100 mg PO DAILY 07/24/24 Magnesium Oxide [Mag-Oxide Magnesium] 400 mg PO DAILY 07/24/24 Omeprazole 20 mg PO DAILY 07/24/24 Potassium Chloride 20 meq PO DAILY 07/24/24 Acetaminophen [Tylenol] 650 mg PO Q6H PRN 07/27/24 Acetaminophen with Codeine [Tylenol with-Codeine #3 Tablet] 30 - 300 mg PO Q8H PRN 07/27/24 Albuterol Sulfate [Ventolin Hfa] 2 puff PO Q6H PRN 07/27/24 Docusate Sodium [Stool Softener] 200 mg PO DAILY 07/27/24 Fluticasone Propion/Salmeterol [Fluticasone-Salmeterol 250-50] 1 puff IH BID 07/27/24 Hydrocodone Bit/Acetaminophen [[place] 7.5-325 Tablet] 1 ea PO Q12H PRN 07/27/24 Hydrocort Acetate Suppos [Anucort-Hc Suppository*] 25 mg .ROUTE Q12H 07/27/24 Ipratropium/Albuterol Sulfate [Iprat-Albut 0.5-3(2.5) mg/3 ml] 1 vial IN Q8H PRN 07/27/24 Ketoconazole [Nizoral A-D] 1 ea TOP DIRECTED 07/27/24 Mag Hydroxide 8% [Milk Of Magnesia*] 30 ml PO Q24H 07/27/24 Melatonin 6 mg SL DAILY 6PM 07/27/24 Menthol [Biofreeze] 1 ea TOP Q12H 07/27/24 Propylene Glycol [Systane Balance] 1 drop OPTH DIRECTED 07/27/24 Amox/Clavulanate [Augmentin 500-125 mg Tab*] 250 mg PO BIDWM 4 Days #8 tab 08/01/24 Nitrofuran Macro [Macrobid*] 100 mg PO BID 2 Days #4 cap 08/01/24 Physician Discharge Instructions: Patient was admitted to hospital for subcapital fracture of left femur. She was evaluated by orthopedic surgery who did not recommend surgery as the risk would outweigh the benefit in her case. Her pain was managed with hydrocodone, baclofen. Her urine culture grew Enterococcus and E. coli, she is currently being treated with Macrobid and Augmentin. She will need another 2 days of Macrobid and 4 days of Augmentin. See med rec for further details. She has been accepted to [facility] for SNF, previously was residing at [facility]. Her creatinine baseline is around 1.3, 07/31 it was 1.18. Nephrology recommends avoiding p.o. NSAIDs Diet: Regular Activity: Non-weight bearing (Left hip) Followup: Zheng Azevedo [ACTIVE - CAN ADMIT] - 1-2 Weeks Mumtaz Trivedi MD [ACTIVE - CAN ADMIT] - 1 Week Teri Gallardo MD [Primary Care Provider] - 1-2 Weeks Time spent managing pt's care (in minutes): 36
[2024-08-01 14:04] VITALS: BP 139/56; TEMP 98.1
== END 2024-08-01 14:26 | DRG 543 ==
LOC: ER 14:30 → ERHOLD 17:58 → 2ND 18:24
PROVIDERS: ADMIT Hospitalist; ATTEND Internal Medicine
DX: M80.052A Age-related osteoporosis with current pathological fracture, left femur, initial encounter for fracture (principal); I69.354 Hemiplegia and hemiparesis following cerebral infarction affecting left non-dominant side; N39.0 Urinary tract infection, site not specified; E78.5 Hyperlipidemia, unspecified; I12.9 Hypertensive chronic kidney disease with stage 1 through stage 4 chronic kidney disease, or unspecified chronic kidney disease; N18.30 Chronic kidney disease, stage 3 unspecified; J45.909 Unspecified asthma, uncomplicated; M25.561 Pain in right knee; K21.9 Gastro-esophageal reflux disease without esophagitis; B95.2 Enterococcus as the cause of diseases classified elsewhere; B96.20 Unspecified Escherichia coli [E. coli] as the cause of diseases classified elsewhere; R33.9 Retention of urine, unspecified; Z74.01 Bed confinement status; Z79.01 Long term (current) use of anticoagulants; Z90.49 Acquired absence of other specified parts of digestive tract; Z79.899 Other long term (current) drug therapy; Z96.653 Presence of artificial knee joint, bilateral; Z90.710 Acquired absence of both cervix and uterus
CPT/HCPCS: 36415; 72170; 80048; 81001; 83036; 83735; 84100; 85025; 87077; 87086; 87088; 87186; 96374; 97110; 97161; 97530; 99285; J0360; J0696; J0744; J2270; J3010; J7030